=== PATIENT | female | born 1995 | race Caucasian/White ===

== ENCOUNTER 2018-02-19 12:49 | Emergency (ER) | payer OTHER, SELFPAY ==
[2018-02-19 12:50] VITALS: BP 126/77; PULSE 105; RESP 16; TEMP 36.6; O2SAT 98; BMI 18.1
[2018-02-19 14:27] LABS: Bacteria 0 SEEN /hpf (None Seen); Mucous, Urine 0 SEEN /hpf (<or=2+); Red Blood Cells-Urine 0 SEEN /hpf (0-5); White Blood Cells 0 SEEN /hpf (0-5)
[2018-02-19 14:36] LABS: Color, Urine Yellow (Yellow); Glucose, Dipstick Normal (Normal); Ketone-Dipstick Negative (Negative); Leukocyte Esterase-Dipstick Negative /ul (Negative); Nitrite-Dipstick Negative (Negative); Occult Blood-Urine Negative /ul (Negative); Protein-Dipstick Negative (Negative); Urine Bilirubin Dipstick Negative (Negative); Urine Clarity Clear (Clear); Urine Urobilinogen Normal (Normal); Urine pH 6.5 (5.0 - 8.0)
[2018-02-19 14:45] LABS: Squamous Epithelial Cells - UA 0-5 SEEN /hpf (5-10)
[2018-02-19 15:09] LABS: hCG Titer Quant., Serum 332 mIU/mL (<9 non-preg)
--- NOTE | 2018-02-19 15:32 | ED.VISSUMM ---
- ER Visit Summary Date of Service: 02/19/18 Chief Complaint: I think I am History of Present Illness: The patient is a 22 F past medical history of osteogenesis imperfecta and scoliosis. Patient had a prior cholecystectomy. She states that she had some abdominal cramping redness around the umbilicus. Her last menstrual period was more than a month ago in December. She took a test and it was positive. She denies any vaginal bleeding or discharge. She denies any significant pain. She denies any dysuria or fever. She has never been before. Physical Examination: Well-appearing young female. Vital signs are stable and afebrile. HEENT exam unremarkable. Neck nontender. Lungs clear to auscultation bilaterally. Heart regular rhythm no murmur. Abdomen is soft. Nondistended very minimal epigastric tenderness. No rebound. No guarding. No rigidity. Both the right upper and right lower quadrant unremarkable. Her suprapubic area is really nontender. Patient moving all 4 extremities. Neurologic intact. Back exam nontender. Patient moving all 4 extremities. Neurovascular intact. Calves no edema. Test Results: Quantitative hCG was positive at 332. UA was normal. Emergency Department Course and Treatment: When the patient she was but it was extremely early. At this time ultrasound would not be of any significance in her care. On repeat exam at 1530 her abdomen is benign. I did offer her a pelvic exam and the patient wanted to defer that until she saw her her FOUNDRY ENGINEER. Treatment Plan: Follow up with FOUNDRY ENGINEER. Dr. Petrona Francis on-call. Disposition: discharge Impression: Newly diagnosed first trimester This note was generated with [employer] dictation software. It may contain incorrect words, spelling, and punctuation that were not noted in review of the chart prior to signing ED Disposition - Plan for ED Patient: Chief Complaint: Abd Pain Referrals: Care Physician,No Primary [Primary Care Provider] -
--- NOTE | 2018-02-19 15:37 | ED.DCSUM_ITS ---
- ER Visit Summary Date of Service: 02/19/18 Chief Complaint: I think I am History of Present Illness: The patient is a 22 F past medical history of osteogenesis imperfecta and scoliosis. Patient had a prior cholecystectomy. She states that she had some abdominal cramping redness around the umbilicus. Her last menstrual period was more than a month ago in December. She took a test and it was positive. She denies any vaginal bleeding or discharge. She denies any significant pain. She denies any dysuria or fever. She has never been before. Physical Examination: Well-appearing young female. Vital signs are stable and afebrile. HEENT exam unremarkable. Neck nontender. Lungs clear to auscultation bilaterally. Heart regular rhythm no murmur. Abdomen is soft. Nondistended very minimal epigastric tenderness. No rebound. No guarding. No rigidity. Both the right upper and right lower quadrant unremarkable. Her suprapubic area is really nontender. Patient moving all 4 extremities. Neurologic intact. Back exam nontender. Patient moving all 4 extremities. Neurovascular intact. Calves no edema. Test Results: Quantitative hCG was positive at 332. UA was normal. Emergency Department Course and Treatment: When the patient she was but it was extremely early. At this time ultrasound would not be of any significance in her care. On repeat exam at 1530 her abdomen is benign. I did offer her a pelvic exam and the patient wanted to defer that until she saw her her NEURODIAGNOSTIC TECHNOLOGIST. Treatment Plan: Follow up with NEURODIAGNOSTIC TECHNOLOGIST. Dr. Petrona Francis on-call. Disposition: discharge Impression: Newly diagnosed first trimester This note was generated with [employer] dictation software. It may contain incorrect words, spelling, and punctuation that were not noted in review of the chart prior to signing ED Disposition - Plan for ED Patient: Chief Complaint: Abd Pain Referrals: Care Physician,No Primary [Primary Care Provider] -
--- NOTE | 2018-02-19 15:37 | ED.DEP ---
ED Disposition - Plan for ED Patient: Disposition: Home or Assisted Living Chief Complaint: Abd Pain Instructions: ED Preg Established Normal Sxs Prescriptions: Ondansetron [Zofran Odt] 4 mg PO Q4H PRN PRN #10 tab.rapdis PRN Reason: Nausea Referrals: Petrona Francis MD [STAFF PHYSICIAN] - As soon as possible Additional Instructions: Plenty of fluids and rest. She can start vitamins. Call and follow-up with Dr. Petrona Francis of [facility]I[facility] OFFICER. Zofran as needed for nausea.
[2018-02-19 15:45] VITALS: BP 110/68; PULSE 68; RESP 16; O2SAT 100
--- OUTSIDE RECORDS SUMMARY | 2018-04-16 13:52 | XMS RPT_ITS ---
:1995 Author Organization OHIP Support Name Relationship Address Phone BROASTLIV Unavailable [address] + [place] [address] MARANDA, CLAUDIO Unavailable [address] + [place] [address] LESLI GAO Unavailable [address] + [place] [address] BROASTLIV Unavailable [address] + [place] [address] MARANDA, CLAUDIO Unavailable [address] + [place] [address] VIVIAN GAOIA Unavailable [address] + [place] [address] BROASTLIV Unavailable [address] + [place] [address] MARANDA, CLAUDIO Unavailable [address] + [place] [address] MARANDA, CLAUDIO Unavailable [address] + [place] [address] MARANDA, CLAUDIO Unavailable [address] + [place] [address] UN Unavailable Unavailable Unavailable MARANDA, CLAUDIO Unavailable [address] + [place] [address] MARANDA, CLAUDIO Unavailable [address] + [place] [address] UN Unavailable Unavailable Unavailable MARANDA, CLAUDIO Unavailable Unavailable Unavailable MARY HAN Unavailable [address] + [place] [address] NOT GIVEN Unavailable Unavailable Unavailable CLAUDIO LOW Unavailable Unavailable Unavailable EMELY, MARY Unavailable [address] + [place] [address] NOT GIVEN Unavailable Unavailable Unavailable Care Team Providers Name Role Phone GIOVANI JOLLEY Attending Unavailable АННА GOLDSTEIN Primary Care Unavailable LETITIA FORD Attending Unavailable TRISTON, АННА Primary Care Unavailable JAMEY, DR KAYDEN Freitas Admitting Unavailable JAMEY, DR KAYDEN Freitas Attending Unavailable JAMEY, DR KAYDEN Freitas Primary Care Unavailable АННА GOLDSTEIN CORRECTIONAL OFFICER SERGEANT Consulting Unavailable АННА GOLDSTEIN CORRECTIONAL OFFICER SERGEANT Referring Unavailable PROVIDER, UNKNOWN Consulting Unavailable PROVIDER, UNKNOWN Consulting Unavailable ROSSANA SAHNI MD Consulting Unavailable NEMUNAITIS, JEFFREY Admitting Unavailable NEMUNAITIS, JEFFREY Attending Unavailable NEMUNAITIS, JEFFREY Primary Care Unavailable PROVIDER, UNKNOWN Consulting Unavailable PROVIDER, UNKNOWN Consulting Unavailable Kishor, Tonia Attending Unavailable Primay Care Physicia, No Referring Unavailable [place], Tonia Attending Unavailable Primay Care Physicia, No Primary Care Unavailable Jesús Harvey Attending Unavailable Primay Care Physicia, No Primary Care Unavailable PROBLEMS PROBLEMS DATE TYPE CONDITION / CODE ATTENDING STATUS SOURCE 03/02/2018 Unknown Z34.90 - Encounter Kishor, Active [place] for supervision of [facility] normal , Hospital unspecified, Repository unspecified trimester / Z34.90(ICD-10) 03/02/2018 Unknown Z34.00 - Encounter Kishor, Active Beata for supervision of [facility] normal [facility] , Repository unspecified trimester / Z34.00(ICD-10) 03/02/2018 Unknown Z34.01 - Encounter Kishor, Active Beata for supervision of [facility] normal [facility] , first Repository trimester / Z34.01(ICD-10) 03/02/2018 Unknown Z3A.01 - Less than 8 [place], Active [place] weeks gestation of [facility] / Hospital Z3A.01(ICD-10) Repository 03/02/2018 Unknown Q78.0 - Osteogenesis [place], Active [place]ata imperfecta / [facility] Q78.0(ICD-10) Hospital Repository 07/21/2017 Working FEVER, UNSPECIFIED / GIOVANI JOLLEY Active [place] diagnosis R50.9(ICD-10) [facility] Repository 07/21/2017 Working NONINFECTIVE GIOVANI JOLLEY Active [place] diagnosis GASTROENTERITIS AND [facility] COLITIS, UNSPECIFIED Hospital / K52.9(ICD-10) Repository 07/21/2017 Working CHRONIC SINUSITIS, GIOVANI JOLLEY Active [place] diagnosis UNSPECIFIED / [facility] J32.9(ICD-10) Hospital Repository 07/21/2017 Working ACQUIRED ABSENCE OF GIOVANI JOLLEY Active [place] diagnosis OTHER SPECIFIED [facility] DIGESTIVE Hospital TRACT / Repository Z90.49(ICD-10) 07/21/2017 Working COUGH / R05(ICD-10) FORD, Active [place] diagnosis [facility] Hospital Repository 07/21/2017 Working ACUTE SINUSITIS, FORD, Active [place] diagnosis UNSPECIFIED / [facility] J01.90(ICD-10) Hospital Repository 07/21/2017 Working HEADACHE / FORD, Active [place] diagnosis R51(ICD-10) [facility] Repository 05/06/2017 Admitting Fever, unspecified / CONCEPCION, DR NOVOA Active [place] [facility] R509(ICD-10) [facility] Repository 05/06/2017 Principle Influenza due to CONCEPCION, DR NOVOA Active [place] Diagnosis unidentified [facility] influenza virus with Hospital other respiratory Repository manifestations / J111(ICD-10) 05/06/2017 Secondary Osteogenesis CONCEPCION, DR NOVOA Active [place] [facility] imperfecta / [facility] Q780(ICD-10) Hospital Repository 05/06/2017 Secondary Acquired absence of JAMEY, DR NOVOA Active [place] [facility] other specified [facility] tract / Repository Z9049(ICD-10) PROCEDURES PROCEDURES No Procedure Records FoundRESULTS RESULTS CT/NG H BY PCR Collected: 03/02/2018 Status: F Source: [place] 7:50 PM [facility] REPOSITORY TYPE CODE TESTS RESULT OUT OF RANGE REFERENCE UNITS LAB L8200.2100 Negative Normal Chlam Negative Trac PCR LAB L8200.2200 Negative Normal NG by Negative PCR Performed By: #### L8200.1999 #### [facility] [address] [place], [address] Observed: 03/02/2018 Status: F Source: [place] CULTURE, GENITAL 7:50 PM [facility] COMPREHENSIVE REPOSITORY Reason for Exam: vaginitis Gram Stain Score = 3 Interpretation: 0-3 Normal, 4-6 Intermediate, 7-10 Positive BV Gram Stain 1+ Epithelial cells 2+ Red Blood Cells 1+ Gram positive rods No Gram negative diplococci No Yeast Like Organisms Gent Cult Comp Normal vaginal sean isolated. No yeast, Gardnerella, Neisseria or beta-hemolytic Streptococcus isolated. Performed By: #### M100.1600 #### [facility] [address] [place], [address] Observed: 03/02/2018 Status: F Source: [place] CULTURE, URINE 7:50 PM [facility] REPOSITORY Urine Culture Below infection level. ORGANISM 1: Mixed Gram Positive Organisms [place] Count 1000-10,000 Performed By: #### M100.0650 #### [facility] [address] [place], [address] MOLD MAKING SUPERVISOR OFFICE VISIT Observed: 03/02/2018 Status: F Source: [place] REPORT 10:44 AM [facility] REPOSITORY [facility] [address] [place] [address] OFFICE VISIT Date of Service: 03/02/18 MR#: [id number] Acct: [id number] Name: NAPOLEON LOW Rep #: [id number] : 1995 Provider: FATIMAH Iverson Age/Sex: 22/F [place] [facility] Status: Signed Intake Vital Signs03/02/18 Body Mass Index (BMI) 18.1 03/02/18 Height 4 ft 11 in 03/02/18 Weight: 96 lb 4 oz 03/02/18 Body Mass Index (BMI) 19.4 03/02/18 Blood Pressure 96/64 Intake Visit Reasons: NOB LMP 01/04/18 Chief Complaint: NEW OB Operator Bearer Systems Required: No Is patient in pain?: No Allergies No Known Allergies Allergy (Verified 03/02/18 09:54) Medications Ondansetron [Zofran Odt] 4 mg PO Q4H PRN PRN #10 tab.rapdis 02/19/18 [Rx] guaifenesin 100 mg/5 mL oral liquid 200 mg PO Q4H PRN 03/02/18 [History Confirmed 03/02/18] vitamin#30 30 mg iron-10 mg iron-folic acid 1 mg- omg3 capsule cap PO cap 03/02/18 [History Confirmed 03/02/18] Last Menstral Period: 01/09/18 Zika: Zika virus screening: Negative : No PFSH PFSH Medical History Osteogenesis imperfecta (Acute) Surgical History Hx of cholecystectomy (Acute) Social History Smoking Status: Never smoker alcohol intake: never substance use type: does not use caffeine: Yes what type of physical activity do you participate in: walking seatbelt use: always do you feel safe at home: Yes additional social history: Claudio Patient works at [employer] History 1 Elective abortions Hx Para Spontaneous abortions HPI NOB LMP 01/04/18: Details: NAPOLEON LOW is a 22 year old who presents for New OB visit. OB Visit BUCKY Calculator Estimated Delivery Date 10/11/18 Based on LMP (uncertain) 01/04/18 Current WG 8w 1d Number 1 Expected Delivery Route/Plan Specific Issue/Plans flu vaccine: given minichart given: given tdap vaccine: [] rhogam: [] LARC form signed: [] labor support person: Claudio pain management: [] cut cord/dad catch: [] : [] PP control planned: [] special requests: [] Initial Weight: Not Recorded Date Weight BP Urine PrFHR FuHt Pres MoCTX DilationFetal StVisit NoProviderComments E ot v te GA G Effac lucose ed Menstrual History Last Menstral Period: 01/09/18 Reported LMP: approximate (month known) Normal amount/duration: Yes On hormonal BC at conception: No hCG+: 02/19/18 Antepartum Record Genetic Screening: Congenital Heart Defect: Other, Neural Tube Defect: Other, Hemoglobinopathy Or Carrier: Other, Cystic Fibrosis: Other, Chromosome Abnormality: Other, Dilip-Sachs: Other, Hemophilia: Other, Intellectual Disability/Autism: Other, Recurrent Loss/Stillbirth: Other, Other Structural Defect: Other, Other Genetic Disease: Other, Maternal Metabolic Disorder: Other Comments/Counseling: Reviewed and negative Infection History: Live with someone with TB or Exposed to TB: No, Patient or Partner has history of Genital Herpes: No, Rash or Viral illness since last mentrual period: No, Prior GBS-Infected child: No, History of STD: No, HIV Infection: No, History of Hepatitis: No, Recent travel outside of [place]: No, Concern for Hep exposure: No, Varicella immune: No (unsure) Medical History Medical History: Positive: Operations/hospitalizations (cholecystectomy), Negative: Diabetes, Hypertension, Heart disease, Auto-immune disorder, Kidney disease/UTI, Neurologic/epilepsy, Psychiatric, Depression/ depression, Hepatitis/liver disease, Varicosities/phlebitis, Thyroid dysfunction, Trauma/domestic violence, History of blood transfusions, D (Rh) Sensitized, Pulmonary (e.g.,TB,Asthma), Seasonal allergies, Drug/latex allergies/reactions, Breast, Account Support Rep surgery, Anesthetic complications, History of abnormal pap, Uterine anomaly/marion, Infertility, Anti-retroviral treatment, Relevant family history, Other ACOG First Trimester First Trimester: Desire for , Alcohol, Tobacco Cessation, Illicit/Recreational Drug/Substance Use, Intimate Partner Violence, Barriers to care, Unstable Housing, Communication Barriers, Environmental/Work Hazards, Anticipated Course of Care, Nurtrition and weight gain, Toxoplasmosis Precations, Use of Any medications, Sexual activity, Exercise, Dental Care, Sauna/Hot tub use, Seat Belt use, Childbirth classes/Hospital facilities, , Travel, Indications for US and Screening for Aneuploidy ROS Const Reports as per HPI Card Denies chest pain, Denies shortness of breath Resp Denies shortness of breath GI Denies change in stools Denies difficulty urinating, Denies abnormal vaginal bleeding, Denies vaginal odor, Denies vaginal itching, Denies vaginal discharge Exam Const General: cooperative, healthy appearing, well developed Nutritional Appearance: average body habitus, well nourished Orientation: oriented x3 Neck Neck: normal visual inspection Neck mass: No Thyroid: thyroid normal Chest Chest palpation AND inspection: normal inspection of the chest Breast inspection: normal inspection of the breasts, normal inspection of the axillae Resp Effort AND Inspection: normal respiratory effort GI Inspection: normal to inspection Palpation: soft, nontender, no masses External Female Exam: normal external appearance, normal appearance of the urethra Urethra: normal appearance of the urethra Speculum Exam - Vagina: normal appearance of the vagina, normal vaginal discharge Speculum Exam - Cervix: normal appearance of the cervix, closed cervix, other (thin prep pap with reflex HPV, GCC collected) Bimanual Exam- Vagina AND Uterus: normal bimanual exam, uterine shape normal, uterine size normal (10 weeks) Bimanual Exam- Adnexa, other: normal adnexae, no adnexal masses, adnexae non-tender Other: US per Dr. Berumen: 5 week gestational sac. Questionable yolk sac. No pole at this time. Patient had light spotting 02/18, none since. Seen in ED at that time Skin General: no rashes or lesions noted, turgor normal Assessment AND Plan Problems 1. Encounter for supervision of normal first in first trimester Z34.01 Grav 1 BUCKY 10/11/18 Spouse Claudio 2. Less than 8 weeks gestation of Z3A.01 3. Osteogenesis imperfecta Q78.0 Plan Patient oriented to practice and discussed care expectations and screenings. ACOG book offered to patient. labs plus varicella immunity ordered but hold until next visit Formal US 10-14 days. Genetic screening offered to patient and patient chose: considering genetic carrier and screening RTO 4 weeks Orders Orders: Coding Level of Care Code Off vis,new,level 4 Diagnoses Encounter for supervision of normal first in first trimester Z34.01 Trimester: first trimester Less than 8 weeks gestation of Z3A.01 Weeks of gestation: less than 8 weeks Osteogenesis imperfecta Q78.0 03/02/18 1044 <Electronically signed by Tonia NORIEGA> Date Tonia NORIEGA Cosigner Signature: Date (if applicable) CC: PAP I-G W/RFX Collected: 03/02/2018 Status: F Source: BEATA HRHPV-APTIMA 10:00 AM [facility] REPOSITORY Order Comment: CYTOLOGY INFORMATION: - CLINICAL INFORMATION: - DATE LMP/MENOPAUSE: N/A - COLLECTION VIAL: Thin Prep Vial - DIESEL POWER SHOVEL OPERATOR SOURCE: CERVICAL - COLLECTION TECHNIQUE: BRUSH/SPATULA Specimen Comment: [id number] Specimen Comment: Source.............Cervix Specimen Comment: No. of containers..01 ThinPrep Vial TYPE CODE TESTS RESULT OUT OF RANGE REFERENCE UNITS LAB L7400.0800 . Normal DIAGN Comment Result Comment: NEGATIVE FOR INTRAEPITHELIAL LESION AND MALIGNANCY. LAB L7400.0900 . Normal ADEQ Comment Result Comment: Satisfactory for evaluation. Endocervical and/or squamous metaplastic cells (endocervical component) are present. LAB L7400.1400 . Normal PERFORM Comment Result Comment: Pedro Lopez, Sales And Marketing Specialist (ASCP) LAB L7400.2575 . Normal TEST METHOD Comment Result Comment: This liquid based ThinPrep(R) pap test was screened with the use of an image guided system. LAB L7400.2600 . Normal . COMM LAB L7400.2700 . Normal PAPSMR Comment Result Comment: The Pap smear is a screening test designed to aid in the detection of premalignant and malignant conditions of the uterine cervix. It is not a diagnostic procedure and should not be used as the sole means of detecting cervical cancer. Both false-positive and false-negative reports do occur. LAB L7400.2800 . Normal HPV RFLX Comment Result Comment: The HPV DNA reflex criteria were not met with this specimen result therefore, no HPV testing was performed. Performed at: [address] [id number] Customs Appraiser: Susie Leigh MD, Phone: [phone] Performed By: #### L7400.0353 #### [facility]refer to report for specific site) refer to report for address and phone number GROUP A STREP BY Collected: 02/21/2018 Status: F Source: ACE PCR 10:53 AM [facility] REPOSITORY TYPE CODE TESTS RESULT OUT OF REFERENCE UNITS RANGE LAB GASSRC Throat Swab GAS Specimen Source LAB PCRGAS Negative for Group A Strep Group A PCR Streptococcus by PCR. Result Comment: This test was developed and its performance characteristics determined by [facility] [place] ([facility]). It has not been cleared or approved by the FDA. [facility] is regulated under CLIA as qualified to perform high-complexity testing. This test is used for clinical purposes. It should not be regarded as inv estigational or for research. Performed By: #### GASPCR #### [facility] [address] [place], [place] [address] PROGRESS Observed: 02/21/2018 Status: COMPLETED Source: ACE 10:41 AM [facility] REPOSITORY HNO ID: [id number] Author: Cortney (Netezza Developer) Garrett Service: (none) Author Type: Nurse Practitioner Type: Progress Notes Filed: 02/21/2018 11:22 AM Note Text: Subjective HPI Napoleon Low is a 22 year old female who presents with sore throat for 2 days, headache for 5 days, cough since last night. She has taken mucinex at home, none since finding out she was . She is currently 2 weeks . She has taken tylenol for pain. She rates her sore throat pain a 5/10, worse with swallowing. 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 Review of Systems Constitutional: Negative. Negative for fever. HENT: Positive for congestion (at night only) and sore throat. Respiratory: Positive for cough. Gastrointestinal: Positive for nausea (due to ). Negative for vomiting. Skin: Negative. Negative for rash. Neurological: Positive for headaches. BP 108/76 Pulse 95 Temp 37.2 ?C (99 ?F) (Toe) Resp 14 Wt 42.8 kg (94 lb 6.4 oz) LMP 01/17/2018 (Approximate) SpO2 98% No past medical history on file. No past surgical history on file. ALLERGIES Patient has no known allergies. MEDICATIONS ondansetron HCl (ZOFRAN ORAL) Take by mouth. For nausea - dispensed by [facility] 02/19/18 No family history on file. Social History Substance Use Topics - Smoking status: Never Smoker - Smokeless tobacco: Never Used - Alcohol use Not on file Objective Physical Exam Constitutional: She is well-developed, well-nourished, and in no distress. HENT: Right Ear: Tympanic membrane, external ear and ear canal normal. Left Ear: Tympanic membrane, external ear and ear canal normal. Nose: Nose normal. No rhinorrhea. Mouth/Throat: Uvula is midline and mucous membranes are normal. Mucous membranes are not pale and not dry. Posterior oropharyngeal erythema present. No oropharyngeal exudate or posterior oropharyngeal edema. Eyes: Conjunctivae are normal. Neck: Neck supple. Cardiovascular: Normal rate and regular rhythm. Pulmonary/Chest: Effort normal and breath sounds normal. No respiratory distress. She has no wheezes. She has no rales. Lymphadenopathy: She has no cervical adenopathy. Neurological: She is alert. Skin: Skin is warm and dry. No rash noted. Nursing note and vitals reviewed. ASSESSMENT/PLAN: 1. Viral URI with cough - ICD9: 465.9, ICD10: J06.9, B97.89 (primary diagnosis) - Discussed viral etiology and rationale for treatment. - Rapid strep negative in office today - Symptomatic treatment with prn analgesia - Supportive care with fluids and rest - safe list of medications for use in given to patient. 2. Sore throat - ICD9: 462, ICD10: J02.9 - suspect viral - Rapid Strep negative in the office today and Throat culture pending - Discussed supportive care treatment with fluids, rest and analgesia. - The patient may also use warm salt water gargles, throat lozenges and/or OTC throat spray as needed. - Call back if drooling, increased temperature, symptoms of dehydration and/or still sick in one week - RAPID STREP TEST B/O - GROUP A STREPTOCOCCUS BY PCR - Follow-up with your PCP in 3-5 days if symptoms have not improved or sooner if symptoms worsen - Discussed red flags and need for immediate medical evaluation if any occur. - Discussed supportive care treatment with fluids, rest and analgesia. - Discussed expected course of illness Cortney Tucker APRN.CORRECTIONAL OFFICER SERGEANT CNOV Observed: 02/21/2018 Status: COMPLETED Source: ACE 10:30 AM [facility] REPOSITORY Office Visit (WSTR) MARANDA,NAPOLEON J ([id number]) 1995 F Date Time Provider Department 02/21/18 10:30 AM CORTNEY TUCKER ([facility]) [facility] During your visit today, we recorded the following information about you: Temperature Pulse Respiration Blood pressure 99 degrees 95/minute 14/minute 108/76 Weight Last Period 42.8 kg 01/17/18 Cortney Tucker APRN.CNP 02/21/2018 11:22 AM Signed Subjective HPI Napoleon Low is a 22 year old female who presents with sore throat for 2 days, headache for 5 days, cough since last night. She has taken mucinex at home, none since finding out she was . She is currently 2 weeks . She has taken tylenol for pain. She rates her sore throat pain a 5/10, worse with swallowing. 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 Review of Systems Constitutional: Negative. Negative for fever. HENT: Positive for congestion (at night only) and sore throat. Respiratory: Positive for cough. Gastrointestinal: Positive for nausea (due to ). Negative for vomiting. Skin: Negative. Negative for rash. Neurological: Positive for headaches. BP 108/76 Pulse 95 Temp 37.2 ?C (99 ?F) (Toe) Resp 14 Wt 42.8 kg (94 lb 6.4 oz) LMP 01/17/2018 (Approximate) SpO2 98% No past medical history on file. No past surgical history on file. ALLERGIES Patient has no known allergies. MEDICATIONS ondansetron HCl (ZOFRAN ORAL) Take by mouth. For nausea - dispensed by [facility] 02/19/18 No family history on file. Social History Substance Use Topics - Smoking status: Never Smoker - Smokeless tobacco: Never Used - Alcohol use Not on file Objective Physical Exam Constitutional: She is well-developed, well-nourished, and in no distress. HENT: Right Ear: Tympanic membrane, external ear and ear canal normal. Left Ear: Tympanic membrane, external ear and ear canal normal. Nose: Nose normal. No rhinorrhea. Mouth/Throat: Uvula is midline and mucous membranes are normal. Mucous membranes are not pale and not dry. Posterior oropharyngeal erythema present. No oropharyngeal exudate or posterior oropharyngeal edema. Eyes: Conjunctivae are normal. Neck: Neck supple. Cardiovascular: Normal rate and regular rhythm. Pulmonary/Chest: Effort normal and breath sounds normal. No respiratory distress. She has no wheezes. She has no rales. Lymphadenopathy: She has no cervical adenopathy. Neurological: She is alert. Skin: Skin is warm and dry. No rash noted. Nursing note and vitals reviewed. ASSESSMENT/PLAN: 1. Viral URI with cough - ICD9: 465.9, ICD10: J06.9, B97.89 (primary diagnosis) - Discussed viral etiology and rationale for treatment. - Rapid strep negative in office today - Symptomatic treatment with prn analgesia - Supportive care with fluids and rest - safe list of medications for use in given to patient. 2. Sore throat - ICD9: 462, ICD10: J02.9 - suspect viral - Rapid Strep negative in the office today and Throat culture pending - Discussed supportive care treatment with fluids, rest and analgesia. - The patient may also use warm salt water gargles, throat lozenges and/or OTC throat spray as needed. - Call back if drooling, increased temperature, symptoms of dehydration and/or still sick in one week - RAPID STREP TEST B/O - GROUP A STREPTOCOCCUS BY PCR - Follow-up with your PCP in 3-5 days if symptoms have not improved or sooner if symptoms worsen - Discussed red flags and need for immediate medical evaluation if any occur. - Discussed supportive care treatment with fluids, rest and analgesia. - Discussed expected course of illness HUGO Ventura APRN.CNP 02/21/2018 11:00 AM Signed ASSESSMENT/PLAN: 1. Viral URI with cough - ICD9: 465.9, ICD10: J06.9, B97.89 (primary diagnosis) - Discussed viral etiology and rationale for treatment. - Rapid strep negative in office today - Symptomatic treatment with prn analgesia - Supportive care with fluids and rest 2. Sore throat - ICD9: 462, ICD10: J02.9 - suspect viral - Rapid Strep negative in the office today and Throat culture pending - Discussed supportive care treatment with fluids, rest and analgesia. - The patient may also use warm salt water gargles, throat lozenges and/or OTC throat spray as needed. - Call back if drooling, increased temperature, symptoms of dehydration and/or still sick in one week - RAPID STREP TEST B/O - GROUP A STREPTOCOCCUS BY PCR - Follow-up with your PCP in 3-5 days if symptoms have not improved or sooner if symptoms worsen - Discussed red flags and need for immediate medical evaluation if any occur. - Discussed supportive care treatment with fluids, rest and analgesia. - Discussed expected course of illness Cortney Tucker APRN.HARRY Treatment for Viral Upper Respiratory Tract Infections Your body will kill off the virus by itself. Additionally, you can prime your body's immune system. This may help you get better more quickly. 1. Drink lots of fluids - at least one gallon of non-caffeinated liquids per day 2. Make sure you are eating well 3. Get plenty of rest - at least 8 hours of sleep per night for adults and more for children We do not have any medications that kill off these viruses. Antibiotics are used to treat bacterial infections; however, they are not active against viral infections. There are some things that might help you feel better, though. 1. Vaporizers, humidifiers, hot showers, and hot fluids help open respiratory and sinus passages 2. [place] [employer] may offer relief of nasal and head congestion 3. Chandrakant's Vapor Rub placed on a hot towel and draped over the head may relieve congestion 4. Tylenol and Advil help control fevers and headaches 5. Salt water gargles help relieve sore throats 6. Chloraceptic spray or throat lozenges may also help relieve sore throat symptoms 7. Robitussin DM will help loosen up secretions and also provide relief from a cough Occasionally, viral infections turn into something more serious. You should see your doctor or return to the Urgent Care if: 1. You have fevers for longer than five days 2. You have fevers above 102 degrees 3. You are still sick after 10 days 4. You have shortness of breath or wheezing 5. After several days you are getting worse rather than better Referring Provider: SELF [200] Allergies As of Date: 02/21/2018 (No Known Allergies) Date Reviewed: 02/21/2018 Reviewed by: Cortney ([facility]) Garrett - Fully Assessed Reason for Visit: Sore Throat [200] Headache [52] Cmt: x5 days Cough [28] Primary Visit Diagnosis:Viral URI with cough [J06.9, B97.89] Other Visit Diagnosis:Sore throat [J02.9] Order(s): vit-iron fumarate-fa ( MULTIVITAMINS) 28 mg iron- 800 mcg tabTake 1 tablet by mouth once daily.Disp: 30 tabletRfl: 0 RAPID STREP TEST B/O [0390837] Order #: [id number] GROUP A STREPTOCOCCUS BY PCR [SQGASPCR] Order #: [id number] Prescriptions as of 02/21/2018 Sig: ZOFRAN ORAL Take by mouth. For nausea - d* VIT NO.95-FERROUS FU* Take 1 tablet by mouth once d* Problem List As Of Date 02/21/2018 Noted Resolved Osteogenesis imperfecta [Q78.0] INVALID FOR* Thoracogenic scoliosis of thoracolumbar region *INVALID FOR* Other instructions from your clinician: ASSESSMENT/PLAN: 1. Viral URI with cough - ICD9: 465.9, ICD10: J06.9, B97.89 (primary diagnosis) - Discussed viral etiology and rationale for treatment. - Rapid strep negative in office today - Symptomatic treatment with prn analgesia - Supportive care with fluids and rest 2. Sore throat - ICD9: 462, ICD10: J02.9 - suspect viral - Rapid Strep negative in the office today and Throat culture pending - Discussed supportive care treatment with fluids, rest and analgesia. - The patient may also use warm salt water gargles, throat lozenges and/or OTC throat spray as needed. - Call back if drooling, increased temperature, symptoms of dehydration and/or still sick in one week - RAPID STREP TEST B/O - GROUP A STREPTOCOCCUS BY PCR - Follow-up with your PCP in 3-5 days if symptoms have not improved or sooner if symptoms worsen - Discussed red flags and need for immediate medical evaluation if any occur. - Discussed supportive care treatment with fluids, rest and analgesia. - Discussed expected course of illness Cortney Tucker APRN.[employer]RECTIONAL OFFICER SERGEANT Treatment for Viral Upper Respiratory Tract Infections Your body will kill off the virus by itself. Additionally, you can prime your body's immune system. This may help you get better more quickly. 1. Drink lots of fluids - at least one gallon of non-caffeinated liquids per day 2. Make sure you are eating well 3. Get plenty of rest - at least 8 hours of sleep per night for adults and more for children We do not have any medications that kill off these viruses. Antibiotics are used to treat bacterial infections; however, they are not active against viral infections. There are some things that might help you feel better, though. 1. Vaporizers, humidifiers, hot showers, and hot fluids help open respiratory and sinus passages 2. [place] [employer] may offer relief of nasal and head congestion 3. Chandrakant's Vapor Rub placed on a hot towel and draped over the head may relieve congestion 4. Tylenol and Advil help control fevers and headaches 5. Salt water gargles help relieve sore throats 6. Chloraceptic spray or throat lozenges may also help relieve sore throat symptoms 7. Robitussin DM will help loosen up secretions and also provide relief from a cough Occasionally, viral infections turn into something more serious. You should see your doctor or return to the Urgent Care if: 1. You have fevers for longer than five days 2. You have fevers above 102 degrees 3. You are still sick after 10 days 4. You have shortness of breath or wheezing 5. After several days you are getting worse rather than better Prescriptions ordered this encounter Disp Refills Start End VIT NO.95-FERROUS FUMARATE * 30 t* 0 02/21/2018 Class: Med Update Route: ORAL Sig: Take 1 tablet by mouth once daily. Letter Text Cortney Tucker APRN.CNP Urgent Care [address] [facility] [address] Dept: [phone] 02/21/2018 Napoleon J Maranda [address] [facility] [address] To Whom it May Concern: This is to certify that Napoleonsaadia Low was seen at our office for medical care. Napoleon may return to work on 02/22/2018. If you have any questions please feel free to call. Sincerely: Cortney Tucker APRN.[facility] Encounter Status:Closed by CORTNEY TUCKER on 02/21/18 EMERGENCY DEPARTMENT Observed: 02/19/2018 Status: F Source: [place] SUMMARY 4:17 PM [facility] REPOSITORY [facility] Medical Records Department [address] [facility] [place] [address] Emergency Department Summary 11/30/18 1532 MR#: [id number] Acct: [id number] Name: NAPOLEON LOW Rep #: [id number] : 1995 22 From: Jesús Harvey MD PCP: Rylee Physician, No Primary Status: DEP ER - ER Visit Summary Date of Service: 02/19/18 Chief Complaint: I think I am History of Present Illness: The patient is a 22 F past medical history of osteogenesis imperfecta and scoliosis. Patient had a prior cholecystectomy. She states that she had some abdominal cramping redness around the umbilicus. Her last menstrual period was more than a month ago in December. She took a test and it was positive. She denies any vaginal bleeding or discharge. She denies any significant pain. She denies any dysuria or fever. She has never been before. Physical Examination: Well-appearing young female. Vital signs are stable and afebrile. HEENT exam unremarkable. Neck nontender. Lungs clear to auscultation bilaterally. Heart regular rhythm no murmur. Abdomen is soft. Nondistended very minimal epigastric tenderness. No rebound. No guarding. No rigidity. Both the right upper and right lower quadrant unremarkable. Her suprapubic area is really nontender. Patient moving all 4 extremities. Neurologic intact. Back exam nontender. Patient moving all 4 extremities. Neurovascular intact. Calves no edema. Test Results: Quantitative hCG was positive at 332. UA was normal. Emergency Department Course and Treatment: When the patient she was but it was extremely early. At this time ultrasound would not be of any significance in her care. On repeat exam at 1530 her abdomen is benign. I did offer her a pelvic exam and the patient wanted to defer that until she saw her her [employer]OLD MAKING SUPERVISOR. Treatment Plan: Follow up with MOLD MAKING SUPERVISOR. Dr. Petrona Francis on-call. Disposition: discharge Impression: Newly diagnosed first trimester This note was generated with [employer] dictation software. It may contain incorrect words, spelling, and punctuation that were not noted in review of the chart prior to signing ED Disposition - Plan for ED Patient: Chief Complaint: Abd Pain Referrals: Care Physician,No Primary [Primary Care Provider] - What to do if you have Problems For any increased pain, shortness of breath, bleeding, nausea or vomiting, chest pain, or any unexpected problems, contact your Primary Care Provider. Call [facility] ([phone]) or report to the closest Emergency Room. Call 911 if necessary. 02/19/181616 <Electronically signed by Jesús Harvey MD> Date Jesús Harvey MD Cosigner Signature (If Indicated): Date CC: No Primary Care Physician DISCHARGE INSTRUCTION Observed: 02/19/2018 Status: F Source: [place] 4:17 PM [facility] REPOSITORY [facility] Medical Records Department [address] [place] [address] Discharge Instruction 02/19/18 1537 MR#: [id number] Acct: [id number] Name: NAPOLEON LOW Rep #: [id number] : 1995 22 From: Jesús Harvey MD PCP: Care Physician, No Primary Status: DEP ER ED Disposition - Plan for ED Patient: Disposition: Home or Assisted Living Chief Complaint: Abd Pain Instructions: ED Preg Established Normal Sxs Prescriptions: Ondansetron [Zofran Odt] 4 mg PO Q4H PRN PRN #10 tab.rapdis PRN Reason: Nausea Referrals: Petrona Francis MD [STAFF PHYSICIAN] - As soon as possible Additional Instructions: Plenty of fluids and rest. She can start vitamins. Call and follow-up with Dr. Petrona Francis of [place] [employer]PER[employer]. Zofran as needed for nausea. What to do if you have Problems For any increased pain, shortness of breath, bleeding, nausea or vomiting, chest pain, or any unexpected problems, contact your Primary Care Provider. Call [facility] ([phone]) or report to the closest Emergency Room. Call 911 if necessary. 02/19/181616 <Electronically signed by Jesús Harvey MD> Date Jesús Benítez Signature (If Indicated): Date CC: No Primary Care Physician HCG TITER QUANT., Collected: 02/19/2018 Status: F Source: [place] SERUM 2:35 PM [facility] REPOSITORY TYPE CODE TESTS RESULT OUT OF RANGE REFERENCE UNITS LAB L700.8000 <9 non-preg mIU/mL High HCG 332 QUANT. Performed By: #### L700.8000 #### [facility] [address] [place], [address] URINALYSIS, COMPLETE Collected: 02/19/2018 Status: F Source: [place] 1:05 PM [facility] REPOSITORY Order Comment: How was Urine Obtained? DIRECTOR OF IN SERVICE EDUCATION TO SPECIFY TYPE CODE TESTS RESULT OUT OF RANGE REFERENCE UNITS LAB L400.3000 Yellow COLOR Normal Yellow LAB L400.3050 Clear Normal CLARITY Clear LAB L400.3200 Normal mg/dl Normal GLUCOSE, UR Normal LAB L400.3300 Negative mg/dL Normal BILIRUBIN URINE Negative LAB L400.3400 Negative mg/dl Normal KETONE UR Negative LAB L400.3465 1.002-1.030 Normal SP.GR. DIPSTX 1.010 LAB L400.3550 5.0 - 8.0 pH UR Normal 6.5 LAB L400.3600 Negative mg/dl PROT Normal DIPSTX Negative LAB L400.3700 Normal mg/dl Normal UROBILI Normal LAB L400.3750 Negative Normal NITRITE UR Negative LAB L400.3780 Negative /ul Normal OCCULT BLOOD-UR Negative LAB L400.3800 Negative /ul LEUK Normal ESTERASE Negative LAB L400.4050 0-5 /hpf WBC 0 Normal SEEN LAB L400.4100 0-5 /hpf 0 Normal RBC-UA SEEN LAB L400.4150 5-10 /hpf SQUAM Normal EPI 0-5 SEEN LAB L400.4300 None Seen /hpf 0 Normal BACTERIA SEEN LAB L400.4350 <or=2+ /hpf 0 Normal MUCUS, URINE SEEN Performed By: #### L400.0001 #### [facility] [address] [place], [address] PROGRESS Observed: 01/03/2018 Status: COMPLETED Source: [place] 11:30 AM [facility] REPOSITORY HNO ID: [id number] Author: Alissa Traore (Fatimah) Baldev Service: (none) Author Type: Nurse Practitioner Type: Progress Notes Filed: 01/03/2018 12:59 PM Note Text: Subjective HPI Patient presents with: Sinus pain, drainage, chest congestion x 3 weeks. OTC cold/sinus medication, Tessalon Perles with minimal relief. Review of Systems Constitutional: Negative for chills, fever and malaise/fatigue. HENT: Positive for congestion, sinus pain and sore throat. Negative for ear pain. Eyes: Negative for discharge and redness. Respiratory: Positive for cough. Negative for hemoptysis, sputum production, shortness of breath and wheezing. Gastrointestinal: Negative for abdominal pain, diarrhea, nausea and vomiting. Skin: Negative for rash. Neurological: Positive for headaches. No past medical history on file. No past surgical history on file. ALLERGIES Patient has no known allergies. MEDICATIONS benzonatate (TESSALON PERLE) 100 mg capsule Take 2 capsules by mouth three times daily as needed. No family history on file. Social History Substance Use Topics - Smoking status: Never Smoker - Smokeless tobacco: Never Used - Alcohol use Not on file Objective Physical Exam Constitutional: She is well-developed, well-nourished, and in no distress. HENT: Head: Normocephalic. Right Ear: Tympanic membrane, external ear and ear canal normal. Left Ear: Tympanic membrane, external ear and ear canal normal. Nose: Mucosal edema present. Right sinus exhibits maxillary sinus tenderness and frontal sinus tenderness. Left sinus exhibits maxillary sinus tenderness and frontal sinus tenderness. Mouth/Throat: Posterior oropharyngeal erythema (PND) present. Eyes: Conjunctivae are normal. Neck: Normal range of motion. Neck supple. Cardiovascular: Normal rate, regular rhythm and normal heart sounds. Pulmonary/Chest: Effort normal. No respiratory distress. She has no wheezes. She has rhonchi (faint scattered rhonchi in b/l upper lobes, clearing with cough). She has no rales. Abdominal: Soft. She exhibits no distension. There is no tenderness. Lymphadenopathy: She has no cervical adenopathy. Skin: Skin is warm and dry. No rash noted. Nursing note and vitals reviewed. ASSESSMENT/PLAN: 1. Sinobronchitis - ICD9: 473.9, 490, ICD10: J32.9, J40 - Will begin treatment with Amoxicillin for 10 days - The patient should also be given OTC decongestants prn, OTC cough and cold meds as needed, warm salt water gargles, throat lozenges and/or OTC throat spray as needed and nasal saline gtts and suction prn for the first 5-7 days of treatment. - Supportive care with plenty of fluids, rest, and analgesia prn. - Follow up in 3-5 days if symptoms persist or worsen. Prescription instructions reviewed with patient as applicable. Patient advised if symptoms do not improve or if symptoms worsen sooner, to contact their primary care physician. Potential red flag symptoms discussed with the patient. Reviewed appropriate action plan to take if red flag symptoms occur. Patient agreeable to treatment plan. Alissa Polk APRN.HARRY CNOV Observed: 01/03/2018 Status: COMPLETED Source: [place] 11:15 AM [facility] REPOSITORY Office Visit ([facility]) NAPOLEON LOW ([id number]) 1995 F Date Time Provider Department 01/03/18 11:15 AM ALISSA POLK (BENDER MACHINE) [facility] During your visit today, we recorded the following information about you: Temperature Pulse Respiration Blood pressure 98.2 degrees 70/minute 16/minute 94/74 Weight 41.1 kg Alissa Polk APRN.HARRY 01/03/2018 12:59 PM Signed Subjective HPI Patient presents with: Sinus pain, drainage, chest congestion x 3 weeks. OTC cold/sinus medication, Tessalon Perles with minimal relief. Review of Systems Constitutional: Negative for chills, fever and malaise/fatigue. HENT: Positive for congestion, sinus pain and sore throat. Negative for ear pain. Eyes: Negative for discharge and redness. Respiratory: Positive for cough. Negative for hemoptysis, sputum production, shortness of breath and wheezing. Gastrointestinal: Negative for abdominal pain, diarrhea, nausea and vomiting. Skin: Negative for rash. Neurological: Positive for headaches. No past medical history on file. No past surgical history on file. ALLERGIES Patient has no known allergies. MEDICATIONS benzonatate (TESSALON PERLE) 100 mg capsule Take 2 capsules by mouth three times daily as needed. No family history on file. Social History Substance Use Topics - Smoking status: Never Smoker - Smokeless tobacco: Never Used - Alcohol use Not on file Objective Physical Exam Constitutional: She is well-developed, well-nourished, and in no distress. HENT: Head: Normocephalic. Right Ear: Tympanic membrane, external ear and ear canal normal. Left Ear: Tympanic membrane, external ear and ear canal normal. Nose: Mucosal edema present. Right sinus exhibits maxillary sinus tenderness and frontal sinus tenderness. Left sinus exhibits maxillary sinus tenderness and frontal sinus tenderness. Mouth/Throat: Posterior oropharyngeal erythema (PND) present. Eyes: Conjunctivae are normal. Neck: Normal range of motion. Neck supple. Cardiovascular: Normal rate, regular rhythm and normal heart sounds. Pulmonary/Chest: Effort normal. No respiratory distress. She has no wheezes. She has rhonchi (faint scattered rhonchi in b/l upper lobes, clearing with cough). She has no rales. Abdominal: Soft. She exhibits no distension. There is no tenderness. Lymphadenopathy: She has no cervical adenopathy. Skin: Skin is warm and dry. No rash noted. Nursing note and vitals reviewed. ASSESSMENT/PLAN: 1. Sinobronchitis - ICD9: 473.9, 490, ICD10: J32.9, J40 - Will begin treatment with Amoxicillin for 10 days - The patient should also be given OTC decongestants prn, OTC cough and cold meds as needed, warm salt water gargles, throat lozenges and/or OTC throat spray as needed and nasal saline gtts and suction prn for the first 5-7 days of treatment. - Supportive care with plenty of fluids, rest, and analgesia prn. - Follow up in 3-5 days if symptoms persist or worsen. Prescription instructions reviewed with patient as applicable. Patient advised if symptoms do not improve or if symptoms worsen sooner, to contact their primary care physician. Potential red flag symptoms discussed with the patient. Reviewed appropriate action plan to take if red flag symptoms occur. Patient agreeable to treatment plan. Alissa Polk APRN.[employer]RECTION[employer] OFFICER SERGEANT Referring Provider: SELF [200] Allergies As of Date: 01/03/2018 (No Known Allergies) Date Reviewed: 01/03/2018 Reviewed by: Katherine Moreno Ma - Fully Assessed Reason for Visit: Sinus Infection,frequent/recurring [1167] Primary Visit Diagnosis:Sinobronchitis [J32.9, J40] Order(s):amoxicillin (AMOXIL) 875 mg tabletTake 1 tablet by mouth twice daily for 10 days.Disp: 20 tabletRfl: 0 Glqiwqofdhjcsav-Ujvjibder-DZ (BROMFED DM) 2-30-10 mg/5 mL syrupTake 10 mL by mouth four times daily as needed for up to 7 days.Disp: 240 mLRfl: 0 Prescriptions as of 01/03/2018 Sig: AMOXICILLIN 875 MG TABLET Take 1 tablet by mouth twice * BROMPHENIRAMINE-PSEUDOEPHEDRI* Take 10 mL by mouth four time* Problem List As Of Date: 01/03/2018 (None) Prescriptions ordered this encounter Disp Refills Start End AMOXICILLIN 875 MG TABLET 20 t* 0 01/03/2018 01/13/2018 Route: ORAL Sig: Take 1 tablet by mouth twice daily for 10 days. KOFCUXMKRSTPZJM-DJQBROZIDVDXJUC-PL 2* 240 * 0 01/03/2018 01/10/2018 Route: ORAL Sig: Take 10 mL by mouth four times daily as needed for up to 7 days. Medications Discontinued During This Encounter benzonatate (TESSALON PERLE) 100 mg * 30 c* 0 12/19/2017 01/03/2018 Route: ORAL Sig: Take 2 capsules by mouth three times daily as needed. Disc: Reason for discontinue is not on file. Disposition: Return if symptoms worsen or fail to improve. Follow-up and Disposition History Recorded Encounter Status:Closed by ALISSA POLK on 01/03/18 PROGRESS Observed: 12/19/2017 Status: COMPLETED Source: [place] 10:21 AM [facility] REPOSITORY HNO ID: [id number] Author: Isidra Cutler) Claudette Service: (none) Author Type: Physician Scallop Shucker Type: Progress Notes Filed: 12/19/2017 11:50 AM Note Text: Subjective HPI Pt presents with cough, congestion, for 4 days. No fever or chills. No nvd or abdominal pain. She tried some tylenol cold and sinus which helped minimally. She is not a smoker, no hx of asthma. Review of Systems Constitutional: Negative. Negative for fever. HENT: Positive for congestion. Negative for ear pain and sore throat. Eyes: Negative. Respiratory: Positive for cough. Negative for shortness of breath and wheezing. Cardiovascular: Negative. Negative for chest pain. Gastrointestinal: Negative. Genitourinary: Negative. Skin: Negative. All other systems reviewed and are negative. No past medical history on file. Current Outpatient Prescriptions: benzonatate (TESSALON PERLE) 100 mg capsule Take 2 capsules by mouth three times daily as needed. Disp: 30 capsule Rfl: 0 No current facility-administered medications for this visit. No past surgical history on file. No family history on file. Social History Substance Use Topics - Smoking status: Never Smoker - Smokeless tobacco: Never Used - Alcohol use Not on file BP 92/80 Pulse 82 Temp 36.7 ?C (98.1 ?F) (Left Tympanic) Resp 16 Wt 40.6 kg (89 lb 9.6 oz) LMP 12/07/2017 (Approximate) SpO2 98% Objective Physical Exam Constitutional: She is oriented to person, place, and time and well-developed, well-nourished, and in no distress. HENT: Head: Normocephalic and atraumatic. Right Ear: Tympanic membrane, external ear and ear canal normal. Left Ear: Tympanic membrane, external ear and ear canal normal. Nose: Mucosal edema and rhinorrhea present. Mouth/Throat: Uvula is midline, oropharynx is clear and moist and mucous membranes are normal. Eyes: Pupils are equal, round, and reactive to light. Conjunctivae are normal. Neck: Normal range of motion. Neck supple. Cardiovascular: Normal rate, regular rhythm and normal heart sounds. Pulmonary/Chest: Effort normal and breath sounds normal. Lymphadenopathy: She has no cervical adenopathy. Neurological: She is alert and oriented to person, place, and time. Skin: Skin is warm and dry. Psychiatric: Affect and judgment normal. Nursing note and vitals reviewed. ASSESSMENT/PLAN: 1. Viral URI with cough - ICD9: 465.9, ICD10: J06.9, B97.89 - Discussed viral etiology and rationale for treatment. - Symptomatic treatment with prn analgesia - Supportive care with fluids and rest - tessalon for cough - Discussed with patient concerning symptoms to go to the emergency department or follow up here. Pt agreeable with this plan. Isidra Wilkins PA-C CNOV Observed: 12/19/2017 Status: COMPLETED Source: [place] 10:15 AM [facility] REPOSITORY Office Visit ([facility]) NAPOLEON LOW ([id number]) 1995 F Date Time Provider Department 12/19/17 10:15 AM ISIDRA WILKINS (JULIA) [facility] During your visit today, we recorded the following information about you: Temperature Pulse Respiration Blood pressure 98.1 degrees 82/minute 16/minute 92/80 Weight Last Period 40.6 kg 12/07/17 Isidra Wilkins PA-C 12/19/2017 11:50 AM Signed Subjective HPI Pt presents with cough, congestion, for 4 days. No fever or chills. No nvd or abdominal pain. She tried some tylenol cold and sinus which helped minimally. She is not a smoker, no hx of asthma. Review of Systems Constitutional: Negative. Negative for fever. HENT: Positive for congestion. Negative for ear pain and sore throat. Eyes: Negative. Respiratory: Positive for cough. Negative for shortness of breath and wheezing. Cardiovascular: Negative. Negative for chest pain. Gastrointestinal: Negative. Genitourinary: Negative. Skin: Negative. All other systems reviewed and are negative. No past medical history on file. Current Outpatient Prescriptions: benzonatate (TESSALON PERLE) 100 mg capsule Take 2 capsules by mouth three times daily as needed. Disp: 30 capsule Rfl: 0 No current facility-administered medications for this visit. No past surgical history on file. No family history on file. Social History Substance Use Topics - Smoking status: Never Smoker - Smokeless tobacco: Never Used - Alcohol use Not on file BP 92/80 Pulse 82 Temp 36.7 ?C (98.1 ?F) (Left Tympanic) Resp 16 Wt 40.6 kg (89 lb 9.6 oz) LMP 12/07/2017 (Approximate) SpO2 98% Objective Physical Exam Constitutional: She is oriented to person, place, and time and well-developed, well-nourished, and in no distress. HENT: Head: Normocephalic and atraumatic. Right Ear: Tympanic membrane, external ear and ear canal normal. Left Ear: Tympanic membrane, external ear and ear canal normal. Nose: Mucosal edema and rhinorrhea present. Mouth/Throat: Uvula is midline, oropharynx is clear and moist and mucous membranes are normal. Eyes: Pupils are equal, round, and reactive to light. Conjunctivae are normal. Neck: Normal range of motion. Neck supple. Cardiovascular: Normal rate, regular rhythm and normal heart sounds. Pulmonary/Chest: Effort normal and breath sounds normal. Lymphadenopathy: She has no cervical adenopathy. Neurological: She is alert and oriented to person, place, and time. Skin: Skin is warm and dry. Psychiatric: Affect and judgment normal. Nursing note and vitals reviewed. ASSESSMENT/PLAN: 1. Viral URI with cough - ICD9: 465.9, ICD10: J06.9, B97.89 - Discussed viral etiology and rationale for treatment. - Symptomatic treatment with prn analgesia - Supportive care with fluids and rest - tessalon for cough - Discussed with patient concerning symptoms to go to the emergency department or follow up here. Pt agreeable with this plan. Isidra Wilkins PA-C Referring Provider: SELF [200] Allergies As of Date: 12/19/2017 (No Known Allergies) Date Reviewed: 12/19/2017 Reviewed by: Shaylee Gonsalves Ma - Fully Assessed Reason for Visit: Cough [28] Chest Congestion [236] Primary Visit Diagnosis:Viral URI with cough [J06.9, B97.89] Order(s):benzonatate (TESSALON PERLE) 100 mg capsuleTake 2 capsules by mouth three times daily as needed.Disp: 30 capsuleRfl: 0 Prescriptions as of 12/19/2017 Sig: BENZONATATE 100 MG CAPSULE Take 2 capsules by mouth thre* Problem List As Of Date: 12/19/2017 (None) Prescriptions ordered this encounter Disp Refills Start End BENZONATATE 100 MG CAPSULE 30 c* 0 12/19/2017 Route: ORAL Sig: Take 2 capsules by mouth three times daily as needed. Encounter Status:Closed by ISIDRA WILKINS PA-C on 12/19/17 EMERGENCY DEPARTMENT Observed: 06/23/2017 Status: F Source: [place] 10:[address] [address] HEALTH INFORMATION MANAGEMENT EMERGENCY DEPARTMENT : [id number] Signed Patient: NAPOLEON LOW Acct:[id number] MRUN: [id number] : 1995 Sex: F Loc: ED ADM Date: 05/23/17 Room/Bed: DISC Date: History of Present Illness - General Chief Complaint: Cough Stated Complaint: COUGH RUNNY NOSE Symptom onset: 4 days HPI: patient reports cough with congestion (green in color). states runny nose, sore throat Time Seen by Provider: 05/23/17 16:10 Nurses Notes Reviewed and Agreed With?: Yes Source: Patient Mode of Transport: Ambulatory - History of Present Illness Initial Comments: 21-year-old female presents today signs congestion and drainage with sinus headache ?3 days. She states mild cough. She denies fever it's no flu vaccine. She denies shortness of breath or chest pain. She denies body aches. Denies other concerns at this time. MD Complaint: cough, nasal congestion, sinus pain Onset/Timin -: days(s) Severity: mild Consistency: constant Improves With: nothing Worsens With: nothing Context: sick contacts Associated Symptoms: denies other symptoms Treatments Prior to Arrival: none - Related Data Home Medications Medication Instructions Recorded Confirmed Azithromycin [Zithromax] 1 - 2 tab PO DAILY #6 tablet 05/23/17 Fluticasone Propionate [Flonase] 2 sprays NS DAILY #1 spray.susp 05/23/17 Loratadine [Claritin 10 mg Tablet] 10 mg PO DAILY #20 tablet 05/23/17 Allergies Allergy/AdvReac Type Severity Reaction Status Date / Time No Known Allergies Allergy Unverified 05/23/17 16:17 Home medications and allergies reviewed: Yes Review of System - Constitutional Constitutional: Present: Well developed, Well nourished, Non-toxic - Nose,Throat,Mouth Nose (ROS): Present: congestion, clear discharge. Absent: pain Throat: Absent: pain, swelling, discharge Mouth: Absent: pain, swelling - Respiratory Respiratory: Present: cough. Absent: sputum, short of breath, wheezing, hemoptysis - CV Cardiology: Absent: chest pain, edema - GI Gastrointestinal/Abdominal: Absent: abdominal pain, diarrhea, nausea, vomiting - Genitourinary Symptoms: Absent: dysuria - Neuro Neurological: Absent: headache, weakness - Muskuloskeletal Musculoskeletal: Absent: back pain, joint pain, joint swelling - Integumentary Skin: Absent: lesions, rash - Allergic/Immunologic Immunological/Allergic: Present: no symptoms reported - Hematologic Hematologic/Lymphatic: Absent: easy bleeding, easy bruising, swollen glands - Endocrine Endocrine: Present: no symptoms reported - Psychiatric Psychiatric: Present: Normal Affect, Normal Mood. Absent: Depressed - All Others/Exceptions All Other Systems: Reviewed and Negative Except Where Noted in Documentation General Exam - General Limitations: Complains of: no limitations Constitutional: Present: Well developed, Well nourished, well hydrated, Non-toxic - Head Head exam: Present: atraumatic, normocephalic, normal inspection - Eye Eye exam: Present: normal apperance, normal accomodation, EOMI Pupils: Present: PERRL - ENT ENT exam: Present: normal orophraynx, TMs clear w/ good light reflex, mucous membranes moist, normal external ear exam, Posterior Pharynx Non-erethemetous - Expanded ENT Exam Ear exam: Present: normal external inspection Nose: Present: drainage. Absent: tender Mouth exam: Present: normal external inspection Teeth exam: Present: normal inspection Throat exam: normal inspection, uvula midline - Neck Neck exam: Present: full ROM, Supple. Absent: tenderness, meningismus, Posterior Lymphadenopathy, Anterior Lymphadenopathy - Respiratory Respiratory exam: Present: lungs clear equal bilaterally. Absent: respiratory distress, wheezes, rales, rhonchi, stridor, decreased breath sounds, accessory muscle use, chest wall tenderness, prolonged expiratory phase, Subcostal Retractions, Intercostal Retractions, Other Retractions, Nasal Flaring, Flail segment, Ecchymosis, Crepitus - Cardiovascular Cardiovascular Exam: Present: regular rate, normal rhythm, normal heart sounds. Absent: murmur, rubs, gallop, clicks - GI/Abdominal GI/Abdominal exam: Present: soft, non tender, normal bowel sounds. Absent: guarding, rebound, rigid , mass, bruit - Extremities Exam Extremities exam: Present: normal inspection, full ROM, neurovascularly intact - Back Exam Back exam: Present: normal inspection, full ROM. Absent: tenderness - Neurological Exam Neurological exam: Present: alert, oriented X3, CN II-XII intact - Expanded Neurological Exam Patient oriented to: Present: person, place, time Speech: Present: fluid speech - Psychiatric Psychiatric exam: Present: normal affect, normal mood - Skin Skin Color: Present: Normal, [place] Skin exam: Present: warm, dry - Expanded Skin Exam Type of lesion: Absent: rash - Vital Signs Vital Signs 05/23/17 15:51 Temperature 99.7 F H Pulse Rate [ 116 H Pulse Ox] Respiratory 17 Rate Blood Pressure 129/86 [Left Arm] O2 Sat by Pulse 97 Oximetry(%) MDM URI - Lab Data Orders: Azithromycin [Zithromax] 1 - 2 tab PO DAILY #6 tablet 05/23/17 [Rx] Fluticasone Propionate [Flonase] 2 sprays NS DAILY #1 spray.susp 05/23/17 [Rx] Loratadine [Claritin 10 mg Tablet] 10 mg PO DAILY #20 tablet 05/23/17 [Rx] - Differential Diagnosis MDM URI: Considered: Allergic rhinitis, Sinusitis, URI, Other, Influenza A, Influenza B, Influenza H1N1, Otitis media, Peritonsillar abscess, Phyaryngitis, Pneumonia, Pertussis ED Discharge Summary - Discharge Data Clinical Impression: Acute sinusitis, Sinus headache Condition: Good Disposition: 01 HOME, SELF-CARE Admit is Medically Necessary, Anticipated Stay >2 Midnights:: No Referrals: АННА GOLDSTEIN [Primary Care Provider] - Additional Instructions: FOLLOW UP WITH YOUR PCP OR THE BACK UP PHYSICIAN LISTED ON HOME GOING INSTRUCTIONS IF NOT FEELING BETTER IN 3 DAYS RETURN TO THE ED IF SYMPTOMS WORSEN OR ANY OTHER CONCERNS At least one of your blood pressure readings in the Emergency Department visit today were above 120 /80. You need to follow up with your Primary Care Physician/Family Doctor within the next week about your blood pressure. OARRS Report Reviewed: No Home Medications: Ambulatory Orders Medication Instructions Recorded Azithromycin [Zithromax] 1 - 2 tab PO DAILY #6 tablet 05/23/17 Fluticasone Propionate [Flonase] 2 sprays NS DAILY #1 spray.susp 05/23/17 Loratadine [Claritin 10 mg Tablet] 10 mg PO DAILY #20 tablet 05/23/17 Home medications and allergies reviewed: Yes Time Seen by Provider: 05/23/17 16:10 Patient seen by Midlevel: Independently - Consultation I saw and examined the patient: Yes Nurses Notes Reviewed and Agreed With?: Yes - Dictation Amendments/Documentation: [employer] Document Only Electronically Generated By: LETITIA SILVA PA-C Generated Date/Time: 05/23/17 1619 Electronically Signed By: LETITIA SILVA PA-C Signed Date/Time 05/23/17 1623 Co Signed Electronically By: <Electronically signed by DANIEL HERNANDEZ DO> <Electronically signed by DANIEL HERNANDEZ DO> Co Signed Date/Time: 05/29/17 0741 05/29/17 0741 CC: АННА GOLDSTEIN (URINE) Collected: 05/23/2017 Status: F Source: [place] 10:29 PM [facility] REPOSITORY TYPE CODE TESTS RESULT OUT OF REFERENCE UNITS RANGE LAB UPREG(LOIN Negative C) Test Negative (urine) Performed By: #### PREGU #### [facility]-[address] [address] UA W/REFLEX CULTURE Collected: 05/23/2017 Status: F Source: [place] 10:29 PM [facility] REPOSITORY TYPE CODE TESTS RESULT OUT OF RANGE REFERENCE UNITS LAB UCOLR(LOIN Yellow C) Color aby LAB UAPP(LOINC Clear ) Appearance CLEAR LAB UGLU(LOINC Negative ) Glucose NORMAL LAB UBIL(LOINC Negative ) Abnormal Bilirubin 2+ Result Comment: ?Metabolites of etodolac or high concentration of urobilinogen may cause false positive results. Correlate clinically.? LAB UKET(LOINC) Negative Ketones NEGATIVE LAB USPG(LOINC) 1.015-1.025 Specific [place] 1.020 LAB UBLD(LOINC) Negative Blood NEGATIVE LAB UPH(LOINC) pH 5 LAB UPRO(LOINC) Negative Protein NEGATIVE LAB UURO(LOINC) Normal-1.0 mg/dL Urobilinogen NORMAL LAB UNIT(LOINC) Negative Nitrites NEGATIVE LAB ULEU(LOINC) Negative Leukocytes Esterase NEGATIVE Performed By: #### UARC #### [address] [id number] (38 INFLUENZA A B (RAPID) Collected: 05/23/2017 Status: F Source: [place] 10:29 PM [facility] TYPE CODE TESTS RESULT OUT OF REFERENCE UNITS RANGE LAB FLUA1(LOIN (Negative) C) Influenza A Negative antigen LAB FLUB1(LOIN (Negative) C) Influenza B Negative antigen Performed By: #### FLUAB #### [address] [address] BILIRUBIN CONFIRMATION Collected: 05/23/2017 Status: F Source: [place] 10:29 PM [facility] TYPE CODE TESTS RESULT OUT OF REFERENCE UNITS RANGE LAB ICTO(LOINC Negative ) Bilirubin Confirmation Negative Performed By: #### ICTO #### [address] [address] EMERGENCY DEPARTMENT Observed: 05/09/2017 Status: F Source: [place] 7:07 AM [facility] [place] SUMMARY NAME NUMBER SEX AGE ADMIT DISC TYPE MED.RECORD# MARANDA Nava [id number] F 21 05/06/17 05/06/17 Grisel [id number] ROOM:-D DATE OF :1995 PHYSICIAN NO.:[id number] PHYSICIAN NAME:LEE Concepcion M.D. PHYSICIAN:TRISTON JJ CNP CHIEF COMPLAINT: Fever, sore throat, and cough. HISTORY OF PRESENT ILLNESS: The patient began on Thursday the with a sore throat and runny nose. Within 24 hours, she developed a fever, cough, and body aches which have persisted. Minimal nausea and vomiting. No diarrhea. Cough is minimal nonproductive. PAST MEDICAL HISTORY: Negative for chronic medical problems. She does have osteogenesis imperfecta. PAST SURGICAL HISTORY: She has had previous cholecystectomy. MEDICATIONS: She takes no medications regularly. SOCIAL HISTORY: She lives at home. She does not smoke or drink alcohol. PHYSICAL EXAMINATION: This is a 21-year-old thin white female alert, appropriate, does not appear toxic or in any acute distress. Skin is pink, warm, and dry without any rashes. HEENT: Pupils equal, round, and reactive to light. Extraocular muscles intact. TMs are normal. Nose is normal. Mouth and throat appear normal. Neck is supple without adenopathy. Lungs are clear without crackles or wheezes. Cardiac exam is regular rhythm without any ectopy, murmurs, gallops, or rubs. Abdomen is soft without any apparent nontender. No guarding or rebound. She moves all extremities appropriately. Good peripheral pulses. Good capillary refill. Vital signs: Blood pressure 124/83, pulse 75, respirations 16, temperature 98.6. EMERGENCY DEPARTMENT COURSE AND TREATMENT: I discussed management with her. DIAGNOSIS: Flu like illness, probable influenza. PLAN/DISPOSITION: She was given a prescription for Tessalon, Tylenol, and ibuprofen as needed for fever. Follow up with family doctor in 3 to 5 days if no better. D: Kayden Concepcion MD TD: 10:05 JOB #: [id number] Electronically signed by: LEE Concepcion M.D. 05/09/17 07:05 Transcribed by: am 05/07/2017 11:58 ELECTRONICALLY SIGNED BY: LEE Concepcion M.D. 05/09/17 07:05 EMERGENCY REPORT Observed: 04/07/2017 Status: F Source: [place] 9:50 AM [facility] [place] REPORT NAME NUMBER SEX AGE ADMIT DISC TYPE MED.RECORD# MARANDA NAPOLEON J [id number] F 21 02/27/17 02/27/17 E.RPrincess [id number] ROOM:ER-D DATE OF :1995 PHYSICIAN NO.:[id number] PHYSICIAN NAME:E-Sign: Jeffrey Rajan D.O. PHYSICIAN: FAMILY PHYSICIAN: KAITLYN SHUKLA CHIEF COMPLAINT: Abdominal pain. HISTORY OF PRESENT ILLNESS: The patient is a 21-year-old female who presents for abdominal pain. The patient recently underwent gallbladder surgery 5 days ago and states that she has not had a bowel movement since the gallbladder surgery. The patient states she is having worsening abdominal pain, states that it is on the right side near her incision. The patient states that is has progressively worsened. She has not been able to eat. She has been drinking, however she has had some associated nausea, but no vomiting. The patient came to the ED because the pain has progressively worsened. The patient states that she feels as if she has had a temperature at home. The patient states that give her symptoms, she came to the ED for evaluation. PAST MEDICAL HISTORY: Osteogenesis imperfecta, scoliosis. PAST SURGICAL HISTORY: Cholecystectomy 2 days ago. MEDICATIONS: control. ALLERGIES: No known allergies. SOCIAL HISTORY: The patient is . She denies tobacco, alcohol or illicit drugs. REVIEW OF SYSTEMS: Positive for abdominal pain. The remainder of the review of systems are unremarkable. PHYSICAL EXAMINATION: VITAL SIGNS: Temperature 100.4, pulse 109, respirations 20, blood pressure 118/79, O2 saturation 98%. CONSTITUTIONAL: Moderately distress, alert and oriented. The patient appears to be in pain. CARDIAC: Regular rhythm. Tachycardiac, positive S1, S2. Negative for murmurs, rubs or gallops. PULMONARY: Clear to auscultation bilaterally. Negative for wheezes, rales or crackles. ABDOMEN: Distended, no evidence of rigidity. Mild guarding. Global diffuse pain to palpation. Surgical incision scars look healed. No signs of infection externally. Negative for bowel sounds. Negative for Cortse's or McBurney's. MUSCULOSKELETAL: Normal radial and DP pulses bilaterally. Negative for lower extremity edema, ulcerations or skin breakdown. DIAGNOSTIC DATA: WBCs 10.1, hemoglobin 13.8, hematocrit 40.1, platelets 258,000. Lactate 7.3. Urinalysis: Nitrites negative, leukocytes 25, WBCs [address] abdomen and pelvis with contrast shows: (1) Trace free fluid is present in the pelvis. (2) There is large stool volume in the proximal colon. (3) Gallbladder is absent. EMERGENCY DEPARTMENT COURSE AND TREATMENT: The patient on initial evaluation was tachycardiac with a slight temperature of 100.4 with a painful abdomen. We were concerned for possible sepsis secondary to infection from surgery. The patient did have lab work obtained which did show a normal white count. The patient has been given IV fluids and her tachycardia has since resolved. The patient did have a CT abdomen and pelvis which shows significant stool burden predominantly in the proximal colon, exactly where the patient is having pain. On further history, the patient states she has not had a bowel movement since before her surgery. The patient has been EMERGENCY ROOM REPORT MARANDA Nava [address] [place] [address] EMERGENCY ROOM REPORT NAME NUMBER SEX AGE ADMIT DISC TYPE MED.RECORD# MARANDA Nava [id number] F 21 02/27/17 02/27/17 Grisel [id number] ROOM:[place] DATE OF :1995 PHYSICIAN NO.:[id number] PHYSICIAN NAME:E-Sign: Jeffrey Rajan D.O. PHYSICIAN: FAMILY PHYSICIAN: KAITLYN SHUKLA taking a significant amount of pain medication at home. The patient does not have a urinary tract infection. At this time we feel that the patient's symptoms are secondary to the constipation. We did do a rectal exam and there was no stool burden in the rectum or evidence of impaction. Given the location of the stool, we figured this would be the case. The patient at this time is having a soapsuds enema and has been given magnesium citrate. We have given the patient a prescription for MiraLax as well as Dulcolax. DIAGNOSIS: 1. Abdominal pain. 2. Significant constipation. PLAN/DISPOSITION: At this time, we have elected to discharged the patient home for further management of her symptoms at home. We will have the patient follow up with her surgeon, Dr. Ellis, in the next 1 to 2 days for further evaluation. The patient has been given indications on when to return to the ED. The patient is nontoxic at this time, and we feel comfortable discharging the patient home. D: Steven Martinez DO TD: 18:58 JOB #: [id number] Electronically signed by: Not Currently Signed Transcribed by: rick 03/01/2017 03:39 Electronically signed by: STEVEN MARTINEZ DO 04/07/17 09:49 EMERGENCY ROOM REPORT MARANDA Nava 2 [facility] EMERGENCY ROOM REPORT NAME NUMBER SEX AGE ADMIT DISC TYPE MED.RECORD# MARANDA Nava [id number] F 21 02/27/17 02/27/17 Grisel [id number] ROOM:ER-D DATE OF :1995 PHYSICIAN NO.:[id number] PHYSICIAN NAME:E-Sign: Jeffrey Rajan D.O. PHYSICIAN: FAMILY PHYSICIAN: KAITLYN SHUKLA EMERGENCY ROOM REPORT MARANDA Nava 3 ALLERGIES ALLERGIES DATE TYPE / CODE NAME / CODE REACTION SEVERITY SOURCE 03/02/2018 Drug No Known Unknown [place] Allergy/438520303(S Allergies/F0019 [facility] [place]) [address](RXNORM) Hospital Repository Drug NO KNOWN [place] Class/582786409(SNO ALLERGIES [facility]) [place] Repository Miscellaneous No Known Drug Moderate [facility] All[facility]/985656270(S Allergies (Severity [facility] NOMED CT) Modifier) [facility] (Qualifier Repository Value) ENCOUNTERS ENCOUNTERS ADMIT/DISCHARGE ACCOUNT ADMITTING ENCOUNTER LOCATION SOURCE NUMBER CLASS 03/02/2018 [id number] Ambulatory [facility] ing:LABSPEC Repository 03/02/2018/03/02/20 [id number] Ambulatory BMSBuilding:B [place] [address] [place] [address] Repository 02/21/2018/02/24/20 [id number] Ambulatory [address] Repository 02/19/2018/02/20/20 [id number] Emergency [address] ing:ED Repository 01/03/2018/01/06/20 [id number] Ambulatory [address] Repository 12/19/2017/12/24/19 [id number] Ambulatory [address] Repository 05/23/2017/05/24/19 [id number] Emergency CHBuilding:ED [address] Repository 05/23/2017/05/24/19 [id number] Emergency CHBuilding:ED [address] Repository 05/06/2017/05/06/[id number] KAYDEN CONCEPCION Emergency Buildin[address] [place] [address] 18 [place] oom: ERBed: [facility] Repository 02/27/2017/02/28/20 [id number] NEMUNAITIS, Emergency [address]in[address] [place] [address] 17 JEFFREY oom: ERBed: [facility] Repository PAYERS PAYERS ENCOUNTER GUARANTOR PAYER SUBSCRIBER SOURCE 03/02/2018 NAPOLEON Nava Primary CLAUDIO Cota [id number] TR Insurance:HEALTH PLAN CALVERTDOB: [address] , [place] [address]Gic: PACOLETPolicy Number: Repository [id number] (HP) Date: [place], [place] [address]PV: 03/02/2018 Secondary NOT GIVENUNK [place] Insurance:SELF PAY [facility] Number: Effective Repository Date:2018-03-02 03/02/2018 NAPOLEON Nava Primary CLAUDIO Cota [id number] TR Insurance:HEALTH PLAN CALVERTDOB: [address] [address]Qpo: PACOLETPolicy Number: Repository [id number] (HP) Date: [place], [place] [address]BY: 03/02/2018 Secondary NOT GIVENUNK [place] Insurance:SELF PAY [facility] Number: Effective Repository Date:2018-03-02 02/19/2018 NAPOLEON Nava Primary CLAUDIO Cota [id number] TR Insurance:HEALTH PLAN CALVERTDOB: [address] [address]Kio: VALLEYPolicy Number: Repository [id number] (HP) Date: [place], [place] [address]JE: 02/19/2018 Secondary NOT GIVENUNK [place] Insurance:SELF PAY [facility] Number: Effective Repository Date:2018-02-19 05/23/2017 NAPOLEON Primary Insurance:HCFS [place] [id number] PENDINGPolicy Number: CALVERTDOB: [facility] [id number] [place] [address], Date:[address] Repository [place] [address]Rmj: [address] [place] [address], [place] [address]HY: (330) [place] [address]Pug: (HP) [phone] (HP) 05/23/2017 NAPOLEON Primary Insurance:HCFS [place] [id number] PENDINGPolicy Number: CALVERTDOB: [facility] [id number] [place] [address], Date:[address] Repository [place] [address]Bov: [address] [place] [address], [place] [address]XP: (330) [place] [address]Ebh: (HP) [phone] () 02/27/2017 [facility] [employer] [facility]: Insurance:AULTCARE CALVERTB: [id number] [id number] Hospital [address] [place] [address], Number: [place] [address] [place]ository [place] [address]Atg: [id number] Date:Plan Name:A2 (HP)
== END 2018-02-19 15:48 | disposition home or self-care (01) ==
PROVIDERS: Emergency Provider Emergency Medicine
DX: O26.899 Other specified pregnancy related conditions, unspecified trimester (principal); R10.9 Unspecified abdominal pain; M41.9 Scoliosis, unspecified; Z90.49 Acquired absence of other specified parts of digestive tract; Z3A.00 Weeks of gestation of pregnancy not specified
CPT/HCPCS: 81001; 84702; 99282

== ENCOUNTER → 2018-03-02 19:44 | Outpatient (CLI) | payer OTHER, SELFPAY ==
[2018-03-02 10:09] VITALS: BMI 18.1
[2018-03-02 22:18] LABS: Chlamydia Trachomatis by PCR Negative (Negative); Neisserai gonorrhoeae by PCR Negative (Negative); Probe Check PASS; Sample Adequacy Control PASS; Specimen Processing Control PASS
[2018-03-05 11:18] LABS: HPV Reflexed? NOT INDICATED
--- OUTSIDE RECORDS SUMMARY | 2018-04-19 00:14 | XMS RPT_ITS ---
:1995 Author Organization OHIP Support Name Relationship Address Phone BROASTLIV Unavailable [address] + [place] [address] ALBA, CLAUDIO Unavailable [address] + [place] [address] LESLI GAO Unavailable [address] + [place] [address] BROASTLIV Unavailable [address] + [place] [address] ALBA, CLAUDIO Unavailable [address] + [place] [address] LESLI GAO Unavailable [address] + [place] [address] BROASTLIV Unavailable [address] + [place] [address] ALBA CLAUDIO Unavailable [address] + [place] [address] LESLI GAO Unavailable [address] + [place] [address] BROASTLIV Unavailable [address] + [place] [address] ALBA, CLAUDIO Unavailable [address] + [place] [address] LESLI GAO Unavailable [address] + [place] [address] BROASTLIV Unavailable [address] + [place] [address] ALBA CLAUDIO Unavailable [address] + [place] [address] LESLI GAO Unavailable [address] + [place] [address] ALBA, CLAUDIO Unavailable Unavailable Unavailable MARY HAN Unavailable [address] + [place] [address] NOT GIVEN Unavailable Unavailable Unavailable BROASTLIV Unavailable [address] + [place] [address] ALBA, CLAUDIO Unavailable [address] + [place] [address] VIVIAN GAOIA Unavailable [address] + [place] [address] BROASTLIV Unavailable [address] + [place] [address] ALBA, CLAUDIO Unavailable [address] + [place] [address] LESLI GAO Unavailable [address] + [place] [address] BROASTLIV Unavailable [address] + [place] [address] ALBA, CLAUDIO Unavailable [address] + [place] [address] LESLI GAO Unavailable [address] + [place] [address] BROASTLIV Unavailable [address] + [place] [address] ALBA, CLAUDIO Unavailable [address] + [place] [address] LESLI GAO Unavailable [address] + [place] [address] BROASTLIV Unavailable [address] + [place] [address] ALBA, CLAUDIO Unavailable [address] + [place] [address] ALBA, CLAUDIO Unavailable [address] [facility] [address] + [place] [address] ALBA, CLAUDIO Unavailable [address] + [place] [address] UN Unavailable Unavailable Unavailable ALBA, CLAUDIO Unavailable [address] [facility] [address] + [place] [address] ALBA, CLAUDIO Unavailable [address] [facility] [address] + [place] [address] UN Unavailable Unavailable Unavailable ALBA, CLAUDIO Unavailable Unavailable Unavailable EMELY, MARY Unavailable [address] + [place] [address] NOT GIVEN Unavailable Unavailable Unavailable Care Team Providers Name Role Phone JAMEY, DR KAYDEN Freitas Admitting Unavailable JAMEY, DR KAYDEN Freitas Attending Unavailable JAMEY, DR KAYDEN Freitas Primary Care Unavailable АННА GOLDSTEIN CNP Referring Unavailable АННА GOLDSTEIN CNP Consulting Unavailable PROVIDER, UNKNOWN Consulting Unavailable PROVIDER, UNKNOWN Consulting Unavailable UMA HEBERT MD Admitting Unavailable UMA HEBERT MD Attending Unavailable UMA HEBERT MD Primary Care Unavailable АННА GOLDSTEIN CNP Consulting Unavailable АННА GOLDSTEIN CNP Referring Unavailable PROVIDER, UNKNOWN Consulting Unavailable PROVIDER, UNKNOWN Consulting Unavailable АННА GOLDSTEIN Primary Care Unavailable LETITIA FORD Attending Unavailable АННА GOLDSTEIN Primary Care Unavailable GIOVANI JOLLEY Attending Unavailable Hingham, Tonia Attending Unavailable Primay Care Physicia, No Referring Unavailable Hingham, Tonia Attending Unavailable Primay Care Physicia, No Primary Care Unavailable Kishor, Otnia Attending Unavailable [place]ingham, Tonia Referring Unavailable Primay Care Physicia, No Primary Care Unavailable Primay Care Physicia, No Primary Care Unavailable Lenka Velazquez Attending Unavailable Salomón Vieira Attending Unavailable Анна Goldstein Primary Care Unavailable Анна Goldstein Referring Unavailable Marcanthony, Natasha Attending Unavailable Jesús aHrvey Attending Unavailable Primay Care Physicia, No Primary Care Unavailable Marcanthony, Natasha Attending Unavailable Анна Goldstein Primary Care Unavailable Marcanthony, Natasha Referring Unavailable Marcanthony, Natasha Attending Unavailable Marcanthony, Natasha Referring Unavailable Анна Goldstein Primary Care Unavailable Marcanthony, Natasha Consulting Unavailable Marcanthony, Natasha Attending Unavailable Анна Goldstein Referring Unavailable PROBLEMS PROBLEMS DATE TYPE CONDITION / CODE ATTENDING STATUS SOURCE 04/13/2018 Unknown O02.1 - Missed Marcanthony, Active [facility] O02.1(ICD-10) Hospital Repository 03/15/2018 Unknown Z34.90 - Encounter Kishor, Active [place] for supervision of [facility] normal , Hospital unspecified, Repository unspecified trimester / Z34.90(ICD-10) 03/02/2018 Unknown Z34.00 - Encounter Hingham, Active [place] for supervision of [facility] normal first Hospital , Repository unspecified trimester / Z34.00(ICD-10) 03/02/2018 Unknown Z34.01 - Encounter [place]ingham, Active [place] for supervision of [facility] normal [facility] Hospital , first Repository trimester / Z34.01(ICD-10) 03/02/2018 Unknown Z3A.01 - Less than 8 Hingham, Active [place] weeks gestation of [facility] / Hospital Z3A.01(ICD-10) Repository 03/02/2018 Unknown Q78.0 - Osteogenesis Kishor, Active [place] imperfecta / [facility] Q78.0(ICD-10) Hospital Repository 07/21/2017 Working FEVER, UNSPECIFIED / GIOVANI JOLLEY Active [place] diagnosis R50.9(ICD-10) [facility] Repository 07/21/2017 Working NONINFECTIVE GIOVANI JOLLEY Active [place] diagnosis GASTROENTERITIS AND [facility] COLITIS, UNSPECIFIED Hospital / K52.9(ICD-10) Repository 07/21/2017 Working CHRONIC SINUSITIS, GIOVANI JOLLEY Active [place] diagnosis UNSPECIFIED / [facility] J32.9(ICD-10) Hospital Repository 07/21/2017 Working ACQUIRED ABSENCE OF GIOVANI JOLLEY Active [place] diagnosis OTHER SPECIFIED [facility] PARTS OF DIGESTIVE Hospital TRACT / Repository Z90.49(ICD-10) 07/21/2017 Working COUGH / R05(ICD-10) LILIANA, Active [place] diagnosis [facility] Repository 07/21/2017 Working ACUTE SINUSITIS, LILIANA, Active [place] diagnosis UNSPECIFIED / [facility] J01.90(ICD-10) Hospital Repository 07/21/2017 Working HEADACHE / FORD, Active [place] diagnosis R51(ICD-10) [facility] Repository 05/06/2017 Admitting Fever, unspecified / DR KAYDEN CONCEPCION Active [place] [facility] R509(ICD-10) [facility] Repository 05/06/2017 Principle Influenza due to CONCEPCION, DR NOVOA Active [place] Diagnosis unidentified [facility] influenza virus with Hospital other respiratory Repository manifestations / J111(ICD-10) 05/06/2017 Secondary Osteogenesis CONCEPCION, DR NOVOA Active [place] Diagnosis imperfecta / [facility] Q780(ICD-10) Hospital Repository 05/06/2017 Secondary Acquired absence of CONCEPCION, 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 [address] [place] [address] OFFICE VISIT Date of Service: 04/13/18 MR#: [id number] Acct: [id number] Name: NAPOLEON LOW Rep #: [id number] : 1995 Provider: Natasha Berumen MD Age/Sex: 22/F Location: [facility] Status: Signed Intake Vital Signs04/13/18 Body Mass Index (BMI) 19.4 Intake Visit Reasons: 2 WEEK POST OP Chief Complaint: 2w post op D AND C Scrub Nurse Required: No Is patient in pain?: No Allergies No Known Allergies Allergy (Verified 04/13/18 10:13) Medications vitamin#30 30 mg iron-10 mg iron-folic acid 1 mg- omg3 capsule 1 cap PO DAILY cap 03/02/18 [History Confirmed 03/29/18] Is last menstrual period known: No Post menopausal: No Patient : No : No PFSH Medical History Osteogenesis imperfecta (Acute) Surgical History Hx of cholecystectomy (Acute) Social History Smoking Status: Never smoker alcohol intake: never substance use type: does not use caffeine: Yes what type of physical activity do you participate in: walking seatbelt use: always do you feel safe at home: Yes additional social history: Claudio Patient works at [employer] [facility] 2 WEEK POST OP: Details: NAPOLEON LOW is a 22 year old who presents for fu from miscarriage. she is doing well. she is wanting to conceive again. Pregancy History 1 Elective abortions Hx Para Spontaneous abortions ROS Const Constitutional: Denies poor appetite, headache(s), fever(s), increased appetite, weight gain, weight loss or fatigue ENT ENT: Denies dry mouth GI GI: Reports as per HPI; denies vomiting, nausea, abdominal pain or constipation : Reports as per HPI; denies difficulty urinating, blood in urine, pelvic pain, urinary frequency, urinary incontinence, urinary hesitancy, urinary urgency, vaginal discharge, vaginal dryness, vaginal odor, vaginal itching, other, painful urination or nipple discharge Skin Skin/Breast: Denies hair loss, change in hair, dry skin, breast pain, breast skin changes, breast lump or nipple discharge Exam Const General: cooperative, healthy appearing, comfortable, no acute distress, well developed Nutritional Appearance: average body habitus Orientation: alert HENAR Head: normal to inspection, normocephalic Ears: hearing grossly normal bilaterally, external ears normal Nose: external nose normal, nares normal Face and sinus: normal facial exam Neck Neck: normal visual inspection, trachea midline, no lymphadenopathy Thyroid: thyroid normal Resp Effort AND Inspection: normal respiratory effort Musc Other: gross motor intact no deficits, full bilateral strength Skin General: no rashes or lesions noted Neuro Motor: muscle tone normal throughout Assessment AND Plan Problems 1. Missed O02.1 Plan discussed and plan on conceiving again, no additional recommendations Coding Level of Care Code No Charge Diagnoses Missed O02.1 04/13/18 1039 <Electronically signed by Natasha Berumen MD> Date Natasha Berumen MD Cosigner Signature: Date (if applicable) CC: EXECUTIVE OFFICER SPECIAL WARF[employer] TEAM OFFICE VISIT Observed: 04/12/2018 Status: F Source: [facility] RE[facility] 8:57 AM [facility] REPOSITORY [facility] [address] [place] [address] OFFICE VISIT Date of Service: 03/29/18 MR#: [id number] Acct: [id number] Name: NAPOLEON LOW Rep #: [id number] : 1995 Provider: Natasha Berumen MD Age/Sex: 22/F Location: [facility] Status: Signed with Addenda ADDENDUM by Natasha Berumen MD on 04/12/18 at 0857 Addendum entered and electronically signed by Natasha Berumen MD 04/12/18 08:57: patient evaluated by physician and nonviable IUP seen discussed options d and c versus cytotec medical management- patient chose cytotec. fu for surgery. Assessment AND Plan Problems 1. Missed O02.1 Plan - Natasha Berumen MD plan suction d and c Orders Orders: 04/12/18 0857 <Electronically signed by Natasha Berumen MD> Date Natasha Berumen MD cc: * Signed Intake Vital Signs03/29/18 Body Mass Index (BMI) 19.0 03/29/18 Height 4 ft 11 in 03/29/18 Weight: 98 lb 7 oz 03/29/18 Body Mass Index (BMI) 19.8 Intake Visit Reasons: OB bleeding Chief Complaint: est ob, VB Scrub Nurse Required: No Is patient in pain?: Yes Allergies No Known Allergies Allergy (Verified 03/29/18 13:27) Medications Ondansetron [Zofran Odt] 4 mg PO Q4H PRN PRN #10 tab.rapdis 02/19/18 [Rx Confirmed 03/29/18] vitamin#30 30 mg iron-10 mg iron-folic acid 1 mg- omg3 capsule 1 cap PO DAILY cap 03/02/18 [History Confirmed 03/29/18] Cephalexin [Keflex] 500 mg PO Q12 03/27/18 [History Confirmed 03/29/18] Last Menstral Period: 01/09/18 Zika: Zika virus [...] additional social history: Claudio Patient works at [employer] Pregancy History 1 Elective abortions Hx Para Spontaneous abortions HPI OB bleeding: Details: NAPOLEON LOW is a 22 year old who presents for routine OB visit. ACOG First Trimester First Trimester: Desire for , Alcohol, Tobacco Cessation, Illicit/Recreational Drug/Substance Use, Intimate Partner Violence, Barriers to care, Unstable Housing, Communication Barriers, Environmental/Work Hazards, Anticipated Course of Care, Toxoplasmosis Precations, Use of Any medications, Sexual activity, Exercise, Dental Care, Sauna/Hot tub use, Seat Belt use, Childbirth classes/Hospital facilities, , Travel, Indications for US and Screening for Aneuploidy Diagnostics Diagnostics Labs Blood Type A POSITIVE 03/30/18 Antibody Screen NEGATIVE 03/30/18 Hct 37.5 % (37-47) 03/30/18 Hgb 12.7 g/dl (12.0-15.0) 03/30/18 Obstetrics Ultrasound 03/15/18 Chlam trachomat DNA PCR Negative (Negative) 03/02/18 N.gonorrhoeae DNA (PCR) Negative (Negative) 03/02/18 Details: HIV: Urine Culture: Sequential Screen: NIPT Screen: Assessment AND Plan Orders Orders: Coding Level of Care Code OB Routine 03/30/18 0836 <Electronically signed by Tonia NORIEGA> Date Tonia NORIEGA Cosigner Signature: Date (if applicable) CC: Observed: 04/07/2018 Status: F Source: [place] URINE CULTURE 10:[address] [facility] REPOSITORY Sp. Request/Comment: - Specimen received in preservative Culture Result - 10,000 - <50,000 CFU/ml Normal urogenital sean Performed By: #### URCUL #### [facility] [address] [place], [place] [address] PROGRESS Observed: 04/07/2018 Status: COMPLETED Source: [place] 9:[address] [facility] REPOSITORY HNO ID: [id number] Author: Amrik Navarro Service: (none) Author Type: Physician Type: Progress Notes Filed: 04/07/2018 9:52 AM Note Text: Patient presents with: UTI: burning and frequency with urination x 2 days-recently had a DANDC done ST, FLANAGAN and ear pain: x 2-3 days HPI: URI symptoms for 2-3 days: Sore throat, headache, ear pain, cough, sinus pressure. Urinary Symptoms for 2 days. Dysuria: Yes Frequency: Yes Hematuria: No Nausea: No Fever or chills: No Prior UTI: Yes. Treated about 2 weeks ago with monistat. Yeast, BV, trichomoniasis, GC, chlamydia, and urine cultures were negative. She had a DANDC for miscarriage about 1 week ago. MEDICATIONS: Current Outpatient Prescriptions: ondansetron HCl (ZOFRAN ORAL) Take by mouth. For nausea - dispensed by [facility] 02/19/18 vit-iron fumarate-fa ( MULTIVITAMINS) 28 mg iron- 800 mcg tab Take 1 tablet by mouth once daily. No current facility-administered medications for this visit. ALLERGIES: ALLERGIES No Known Allergies VITALS: BP 104/72 Pulse 86 Temp 37.4 ?C (99.3 ?F) (Tympanic) Resp 18 Wt 43.5 kg (95 lb 12.8 oz) LMP 01/17/2018 (Approximate) SpO2 99% PHYSICAL EXAM: GEN: NAD HEENT: EOMI, conjunctiva clear, moist mucous membranes HEART: regular rate and rhythm, no murmurs LUNGS: clear to auscultation, no wheezes or crackles, no increased WOB ABDOMEN: Soft, nondistended, no masses, no suprapubic tenderness BACK: No CVA tenderness ASSESSMENT/PLAN: 1. Dysuria - ICD9: 788.1, ICD10: R30.0 (primary diagnosis) - UA positive for shabnam esterase - UA DIP, URINE (POC) - URINE CULTURE - CEPHALEXIN 500 MG CAPSULE 2. URI, acute - ICD9: 465.9, ICD10: J06.9 - Discussed viral etiology and rationale for treatment. - Symptomatic treatment Amrik Navarro MD CNOV Observed: 04/07/2018 Status: COMPLETED Source: [place] 9:[address] [facility] REPOSITORY Office Visit (WSTR) NAPOLEON LOW ([id number]) 1995 F Date Time Provider Department 04/07/18 9:15 AM AMRIK NAVARRO [facility] During your visit today, we recorded the following information about you: Temperature Pulse Respiration Blood pressure 99.3 degrees 86/minute 18/minute 104/72 Weight 43.5 kg Amrik Navarro MD 04/07/2018 9:52 AM Signed Patient presents with: UTI: burning and frequency with urination x 2 days-recently had a DANDC done ST, FLANAGAN and ear pain: x 2-3 days HPI: URI symptoms for 2-3 days: Sore throat, headache, ear pain, cough, sinus pressure. Urinary Symptoms for 2 days. Dysuria: Yes Frequency: Yes Hematuria: No Nausea: No Fever or chills: No Prior UTI: Yes. Treated about 2 weeks ago with monistat. Yeast, BV, trichomoniasis, GC, chlamydia, and urine cultures were negative. She had a DANDC for miscarriage about 1 week ago. MEDICATIONS: Current Outpatient Prescriptions: ondansetron HCl (ZOFRAN ORAL) Take by mouth. For nausea - dispensed by [facility] 02/19/18 vit-iron fumarate-fa ( MULTIVITAMINS) 28 mg iron- 800 mcg tab Take 1 tablet by mouth once daily. No current facility-administered medications for this visit. ALLERGIES: ALLERGIES No Known Allergies VITALS: BP 104/72 Pulse 86 Temp 37.4 ?C (99.3 ?F) (Tympanic) Resp 18 Wt 43.5 kg (95 lb 12.8 oz) LMP 01/17/2018 (Approximate) SpO2 99% PHYSICAL EXAM: GEN: NAD HEENT: EOMI, conjunctiva clear, moist mucous membranes HEART: regular rate and rhythm, no murmurs LUNGS: clear to auscultation, no wheezes or crackles, no increased WOB ABDOMEN: Soft, nondistended, no masses, no suprapubic tenderness BACK: No CVA tenderness ASSESSMENT/PLAN: 1. Dysuria - ICD9: 788.1, ICD10: R30.0 (primary diagnosis) - UA positive for shabnam esterase - UA DIP, URINE (POC) - URINE CULTURE - CEPHALEXIN 500 MG CAPSULE 2. URI, acute - ICD9: 465.9, ICD10: J06.9 - Discussed viral etiology and rationale for treatment. - Symptomatic treatment Amrik Navarro MD Referring Provider: SELF [200] Allergies As of Date: 04/07/2018 (No Known Allergies) Date Reviewed: 04/07/2018 Reviewed by: Juliet Tan LPN - Fully Assessed Reason for Visit: UTI [116] Cmt: burning and frequency with urination x 2 days-recently had a DANDC done ST, FLANAGAN and ear pain [Other] Cmt: x 2-3 days Reason For Visit History Recorded Primary Visit Diagnosis:Dysuria [R30.0] Other Visit Diagnosis:URI, acute [J06.9] Order(s):UA DIP, URINE (POC) [[id number]] Order #: [id number]. #:[id number] URINE CULTURE [SQURCUL] Order #: [id number] cephALEXin (KEFLEX) 500 mg capsuleTake 1 capsule by mouth twice daily for 7 days.Disp: 14 capsuleRfl: 0 Prescriptions as of 04/07/2018 Sig: ZOFRAN ORAL Take by mouth. For nausea - d* VIT NO.95-FERROUS FU* Take 1 tablet by mouth once d* CEPHALEXIN 500 MG CAPSULE Take 1 capsule by mouth twice* Problem List As Of Date 04/07/2018 Noted Resolved Osteogenesis imperfecta [Q78.0] INVALID FOR* Thoracogenic scoliosis of thoracolumbar region *INVALID FOR* Prescriptions ordered this encounter Disp Refills Start End CEPHALEXIN 500 MG CAPSULE 14 c* 0 04/07/2018 04/14/2018 Route: ORAL Sig: Take 1 capsule by mouth twice daily for 7 days. Encounter Status:Closed by AMRIK NAVARRO MD on 04/07/18 OPERATIVE REPORT Observed: 03/30/2018 Status: F Source: [place] 8:30 AM [facility] REPOSITORY [facility] Medical Records Department [address] [place] [address] Operative Report 03/30/18803 MR#: [id number] Acct: [id number] Name: NAPOLEON LOW Rep #: [id number] : 1995 22 From: Natasha Berumen MD PCP: Анна Goldstein APRN Status: REG [facility] [place] Location: [place] [address] Problem List (1) Missed Status: Acute Report of Operation Date of Procedure: 03/30/18 Pre-Operative Diagnosis: missed Post-Operative Diagnosis: same Surgery/Procedure Performed:: suciton d and c Description of Surgical Findings:: 8 week uterus Type of Anesthesia:: Local MAC Special Medications: none Specimen's removed: poc Drains: none Estimated Blood Loss (mL): 150 Fluids Replaced: crystalloid Description of Procedure: Patient was taken to the operating room and placed under MAC local anesthesia. She was prepped and draped in the normal sterile fashion the dorsal lithotomy position. Bladder was drained of clear urine and anterior lip of the cervix was grasped and the uterus sounded to 9. Cervix was progressively dilated to allow passage of a 9 suction curette. Progressive passes were made removing the retained products of conception without complication. Sharp curettage confirmed complete removal of the retained products. All instruments were removed from the vagina and excellent hemostasis was noted and the patient was taken to recovery in stable condition. Grafts/Implants Used: none - Complications none - Admit VTE Documentation VTE Present on Admission: No VTE Mechan Device Prophylaxis: SCD's 03/30/18 0830 <Electronically signed by Natasha Berumne MD> Date Natasha Berumen MD CC: TAMERA Goldstein; HARI Goldstein; Natasha Berumen MD Signed DISCHARGE INSTRUCTION Observed: 03/30/2018 Status: F Source: [place] 8:06 AM [facility] REPOSITORY [facility] Medical Records Department [address] [place] [address] Instructions for Home/Discharge Instructions 03/30/18 0805 MR#: [id number] Acct: [id number] Name: NAPOLEON LOW Rep #: [id number] : 1995 22 From: Natasha Berumen MD PCP: Анна Goldstein APRN Status: REG SDC Discharge Diet: No Restrictions Discharge Activity: Return to Normal Activity, May Shower, May Take a Tub Bath Allergies/Adverse Reactions: Allergies No Known Allergies Allergy (Verified 03/29/18 13:27) Medications to take at Discharge Ondansetron [Zofran Odt] 4 mg PO Q4H PRN PRN #10 tab.rapdis 02/19/18 vitamin#30 30 mg iron-10 mg iron-folic acid 1 mg- omg3 capsule 1 cap PO DAILY cap 03/02/18 Cephalexin [Keflex] 500 mg PO Q12 03/27/18 Primary Care Physician: Анна Goldstein, RN [Primary Care Provider] - Test Results: Test results from this visit will be discussed in further detail at your follow-up appointment, if applicable. Please Follow Up With: Natasha Berumen MD - [phone] 03/30/18 08 <Electronically signed by Natasha Berumen MD> Date Natasha Berumen MD CC: TAMERA Goldstein; HARI Goldstein Signed PRODUCTS OF CONCEPTION Observed: 03/30/2018 Status: F Source: [place] 7:30 AM [facility] REPOSITORY Patient: NAPOLEON LOW : 1995 (22/F) Acct Num: [id number] Phys: [place] NARVAEZ,Natasha Unit Num: [id number] Loc: [facility] Specimen: [id number] Received: 03/30/18914 Spec Type: PROD CONC TISSUES 1 TISSUES: Product of conception, NOS GROSS DESCRIPTION Received in fixative is one container labeled with the patient's name and designated products of conception. The specimen consists of multiple irregular fragments of red-zambrano soft tissue that in aggregate measure 5 x 4.5 x 1 cm. parts are not grossly recognized. Virology Teacher portions are submitted in one cassette. / AM:james 03/30/18 TC:5 CPT: 87394 HEADER OPERATION: Dilation and curettage, suction PRE-OP DIAGNOSIS: Missed TISSUE SUBMITTED: Products of conception MICROSCOPIC DESCRIPTION Slides are reviewed. MICROSCOPIC DIAGNOSIS Products of conception: Decidua, gestational endometrium and immature chorionic villi (products of conception). SJ:james 03/31/18 Signed Sam Schofield MD 03/31/18 <signature on file> Performed By: #### PPOC #### [facility] [address] [place] [place], [address] CBC-COMPLETE BLOOD CNT Collected: 03/30/2018 Status: F Source: [place] NO DIFF 6:10 AM [facility] REPOSITORY TYPE CODE TESTS RESULT OUT OF RANGE REFERENCE UNITS LAB L100.1000 4.4-11.0 K/mm3 Normal WBC 6.9 LAB L100.1200 4.2-5.4 M/mm3 Normal RBC 4.25 LAB L100.1300 12.0-15.0 g/dl Normal HGB 12.7 LAB L100.1400 37-47 % Normal HCT 37.5 LAB L100.1500 81-99 fL Normal MCV 88.2 LAB L100.1600 27.0-32.0 pg Normal MCH 29.9 LAB L100.1700 32-36 g/gl Normal MCHC 33.9 LAB L100.1810 11.6-14.6 % Normal RDW CV 12.2 LAB L100.1820 35.1-43.9 fl Normal RDW SD 38.8 LAB L100.1900 150-450 K/mm3 Normal PLT 266 LAB L100.2000 6.2-12.0 fl Normal MPV 9.8 Performed By: #### L100.0500 #### [facility] [address] [place], [address] TYPE AND SCREEN Collected: 03/30/2018 Status: F Source: [place] 6:10 AM [facility] REPOSITORY Order Comment: Reason for Type AND Screen/Red Cells: SURGERY TYPE CODE TESTS RESULT OUT OF RANGE REFERENCE UNITS LAB B10.0800 A Normal BLOOD TYPE GEL POSITIVE LAB B100.4000 Normal Antibody NEGATIVE Screen Performed By: #### B101.7450 #### [facility] [address] [place], [address] EMERGENCY DEPARTMENT Observed: 03/28/2018 Status: F Source: [place] SUMMARY 12:28 AM [facility] REPOSITORY [facility] Medical Records Department [address] [place] [address] Emergency Department Summary 03/27/18 2331 MR#: [id number] Acct: [id number] Name: NAPOLEON LOW Rep #: [id number] : 1995 22 From: Salomón Vieira DO PCP: Анна Goldstein APRN Status: REG ER - ER Visit Summary Date of Service: 03/27/18 Chief Complaint: Pelvic pain and vaginal bleeding History of Present Illness: The patient is a 22 F who presents with vaginal bleeding and pelvic pain that began yesterday. Patient went to [facility] yesterday and was diagnosed with a urinary tract infection. Patient states she has had 2 ultrasounds this and the is intrauterine. Patient admits to lower abdominal cramping and heavier bleeding today. Patient states yesterday she was only having bleeding intermittently. Today she states she is having some bleeding every time she goes to the bathroom. She states her bleeding is similar to her normal menstrual period. Patient does admit to some mild low back pain as well. Patient admits to some nausea but denies any vomiting. Patient has 1 para 0. Patient states her last menstrual period was 01/09/2018. Physical Examination: Vital signs are stable. Patient is afebrile. Patient is in no acute distress. Pupils are equal, round, reactive to light bilaterally. Extraocular muscles are intact. Sclera is blue. Oral mucosa is pink and moist. Neck is supple. Trachea is midline. There is no JVD noted. Heart was regular rate and rhythm. Lungs are clear and equal bilaterally. Abdomen is soft. There is some mild lower abdominal tenderness. There is no rebound or guarding noted. Cranial nerves II through XII are intact. There are no focal motor or sensory deficits noted. The remaining physical exam is within normal limits. Test Results: Urinalysis shows positive nitrates with 0-5 white blood cells, 0-5 red blood cells, and 0-5 epithelial cells. Quantitative hCG was 24,065. Blood type with a positive. Emergency Department Course and Treatment: Patient felt better on reevaluation. Patient was instructed on complete vaginal rest. Patient was instructed to drink plenty of fluids. Patient was instructed to follow-up with her [employer] in 2 days for repeat evaluation. Patient understood and was agreeable with the plan. All questions were answered. Disposition: Discharge home Impression: Threatened This note was generated with Clik[employer] dictation software. It may contain incorrect words, spelling, and punctuation that were not noted in review of the chart prior to signing ED Disposition - Plan for ED Patient: Disposition: Home or Assisted Living Chief Complaint: Vag Bld, Preg Diagnosis: Threatened spontaneous Instructions: ED Miscarriage Poss Referrals: Анна Goldstein RN [Primary Care Provider] - Natasha Berumen MD [STAFF PHYSICIAN] - What to do if you have Problems For any increased pain, shortness of breath, bleeding, nausea or vomiting, chest pain, or any unexpected problems, contact your Primary Care Provider. Call [employer] [facility] ([phone]) or report to the closest Emergency Room. Call 911 if necessary. 03/28/18 0028 <Electronically signed by Salomón Vieira DO> Date Salomón Vieira DO Cosigner Signature (If Indicated): Date CC: TAMERA Goldstein; CHEMICAL TREATMENT OPERATOR-C Анна Goldstein ABORH BLOOD TYPE, Collected: 03/27/2018 Status: F Source: [place] PATIENT 11:20 PM [facility] REPOSITORY TYPE CODE TESTS RESULT OUT OF RANGE REFERENCE UNITS LAB B100.1300 A Normal BLOOD POSITIVE TYPE PT Performed By: #### B100.0000 #### [facility] [address] [place], [address] HCG TITER QUANT., Collected: 03/27/2018 Status: F Source: [place] 11:20 PM [facility] REPOSITORY TYPE CODE TESTS RESULT OUT OF RANGE REFERENCE UNITS LAB L700.8000 <9 non-preg mIU/mL High HCG 87752 QUANT. Performed By: #### L700.8000 #### [facility] [address] [place], [address] URINALYSIS, COMPLETE Collected: 03/27/2018 Status: F Source: [place] 10:30 PM [facility] REPOSITORY Order Comment: How was Urine Obtained? FILTER TIP INSPECTOR TO SPECIFY TYPE CODE TESTS RESULT OUT OF RANGE REFERENCE UNITS LAB L400.3000 Yellow COLOR Normal Straw LAB L400.3050 Clear Normal CLARITY Sl. Cloudy LAB L400.3200 Normal mg/dl Normal GLUCOSE, UR Normal LAB L400.3300 Negative mg/dL Normal BILIRUBIN URINE Negative LAB L400.3400 Negative mg/dl Normal KETONE UR Negative LAB L400.3465 1.002-1.030 Normal SP.GR. DIPSTX 1.015 LAB L400.3550 5.0 - 8.0 pH UR Normal 7.0 LAB L400.3600 Negative mg/dl PROT Normal DIPSTX Negative LAB L400.3700 Normal mg/dl Normal UROBILI Normal LAB L400.3750 Negative High NITRITE UR Positive LAB L400.3780 Negative /ul High 50 OCCULT BLOOD-UR LAB L400.3800 Negative /ul LEUK Normal ESTERASE Negative LAB L400.4050 0-5 /hpf WBC Normal 0-5 SEEN LAB L400.4100 0-5 /hpf Normal RBC-UA 0-5 SEEN LAB L400.4150 5-10 /hpf SQUAM Normal EPI 0-5 SEEN LAB L400.4300 None Seen /hpf 0 Normal BACTERIA SEEN LAB L400.4350 <or=2+ /hpf 0 Normal MUCUS, URINE SEEN LAB L400.4900 3+ Normal AMORPHOUS Performed By: #### L400.0001 #### [facility] [place], [address] URINALYSIS Collected: 03/26/2018 Status: F Source: [facility] 11:18 PM [facility] REPOSITORY TYPE CODE TESTS RESULT OUT OF REFERENCE UNITS RANGE LAB URINALYSIS (LOINC) URINALYSIS Result Comment: URINALYSIS LAB Specimen Type(LOINC) Specimen Type Clean catch LAB Color(LOINC) NORMAL: YELLOW Color YELLOW LAB Clarity(LOINC) NORMAL: CLEAR Clarity Abnormal CLOUDY LAB ph(LOINC) NORMAL: 5.0-8.0 ph 6.5 LAB Protein(LOINC) NORMAL: NEGATIVE Protein NEG LAB Glucose(LOINC) NORMAL: NORMAL Glucose NORM LAB Ketone(LOINC) NORMAL: NEGATIVE Ketone NEG LAB Bilirubin(LOINC) NORMAL: NEGATIVE Bilirubin NEG LAB Blood(LOINC) NORMAL: NEGATIVE Blood Abnormal 250 LAB Urobilinog(LOINC) NORMAL: NORMAL Urobilinog NORM LAB Sp [place](LOINC) NORMAL: 1.010-1.030 Sp [place] 1.020 LAB Nitrite(LOINC) NORMAL: NEGATIVE Nitrite NEG LAB Leukocytes(LOINC) NORMAL: NEGATIVE Leukocytes Abnormal 25 LAB Microscopic(LOINC ) Microscopic SEE BELOW Result Comment: MICROSCOPIC LAB Wbc(LOINC) 0-5/hpf Wbc 1-5 LAB Rbc(LOINC) 0-3/hpf Rbc 10-15 LAB Casts(LOINC) Casts NONE LAB Crystals(LOINC) Crystals NONE LAB Amorphous(LOINC) 1+ Amorphous LAB Bacteria(LOINC) Bacteria TRACE LAB Epi Cells(LOINC) Epi Cells MODERATE LAB Mucous(LOINC) Mucous TRACE LAB Yeast(LOINC) Yeast NONE Performed By: #### [id number] #### [facility],[address] [facility] [address] BB TYPE & SCREEN Collected: 03/26/2018 Status: F Source: [facility] 11:18 PM [facility] REPOSITORY TYPE CODE TESTS RESULT OUT OF REFERENCE UNITS RANGE LAB BB TYPE & SCREEN(LOIN C) BB TYPE & SCREEN Result Comment: TYPE, Rh, AND SCREEN LAB ABO(LOINC) ABO A LAB Rh(LOINC) Rh POS LAB ANTIBODY SCR(INC) ANTIBODY negative SCR Performed By: #### [id number] #### [facility],[address] [place] [address] GC/CHLAMYDIA AMPLIF Collected: 03/21/2018 Status: F Source: [place] 9:[address] [facility] REPOSITORY TYPE CODE TESTS RESULT OUT OF REFERENCE UNITS RANGE LAB GCCTSR GC/Chlam Amp Vaginal Source LAB GCAMPL GC Negative Amplification for Neisseria gonorrhoeae by amplification. LAB CLAMPL Chlamydia Negative Amplif for Chlamydia trachomatis by amplification. Performed By: #### GCCT #### [place] [address] VAG PATHOGENS DNA Collected: 03/21/2018 Status: F Source: [place] 9:[address] [facility] REPOSITORY TYPE CODE TESTS RESULT OUT OF REFERENCE UNITS RANGE LAB TVDNA Negative for Trichomonas Negative vaginalis by DNA Trich vag for Trichomonas Probe DNA Probe vaginalis by DNA Probe LAB GVDNA Negative for Gardnerella Negative vaginalis by DNA Adrien vag for Gardnerella Probe DNA Probe vaginalis by DNA Probe LAB CANDNA Negative for Jennifer species Negative by DNA Probe Jennifer for Jennifer sp DNA Probe species by DNA Probe Performed By: #### VAGDNA #### [place] [address] PROGRESS Observed: 03/21/2018 Status: COMPLETED Source: [place] 9:[address] [facility] REPOSITORY HNO ID: [id number] Author: Alissa Traore (Kerry Polk Service: (none) Author Type: Nurse Practitioner Type: Progress Notes Filed: 03/21/2018 9:23 AM Note Text: Subjective HPI Patient presents with: Urinary Problem: x2 days possible yeast infection: x2 days States 7-8 weeks . Denies hx of frequent UTIs or yeast infecftion Review of Systems Constitutional: Negative for chills, fever and malaise/fatigue. Gastrointestinal: Negative for abdominal pain, diarrhea, nausea and vomiting. Genitourinary: Positive for dysuria and frequency. Negative for flank pain and hematuria. Vaginal discharge/itchiness/odor Denies exposure to STD Musculoskeletal: Negative for back pain. All other systems reviewed and are negative. PAST MEDICAL HISTORY Diagnosis Date - Osteogenesis imperfecta 02/21/2018 - Thoracogenic scoliosis of thoracolumbar region 02/21/2018 No past surgical history on file. ALLERGIES Patient has no known allergies. MEDICATIONS ondansetron HCl (ZOFRAN ORAL) Take by mouth. For nausea - dispensed by [facility] 02/19/18 vit-iron fumarate-fa ( MULTIVITAMINS) 28 mg iron- 800 mcg tab Take 1 tablet by mouth once daily. Miconazole Nitrate (MONISTAT 1 COMBO PACK) kit Use 1 Each vaginally one time only for 1 dose. No family history on file. Social History Substance Use Topics - Smoking status: Never Smoker - Smokeless tobacco: Never Used - Alcohol use Not on file Objective Physical Exam Genitourinary: Vulva exhibits erythema. Thick creamy musty white and vaginal discharge found. Genitourinary Comments: Track Repairer present Nursing note and vitals reviewed. ASSESSMENT/PLAN: 1. Dysuria - ICD9: 788.1, ICD10: R30.0 (primary diagnosis) acute - UA negative - Send urine for culture - Patient education for prevention given - UA DIP, URINE (POC) - URINE CULTURE 2. Vaginal yeast infection - ICD9: 112.1, ICD10: B37.3 -[place] -Reviewed maria d-care -F/u with pcp in 3-5 days or sooner if symptoms are not improving or worsening Prescription instructions reviewed with patient as applicable. Patient advised if symptoms do not improve or if symptoms worsen sooner, to contact their primary care physician. Potential red flag symptoms discussed with the patient. Reviewed appropriate action plan to take if red flag symptoms occur. Patient agreeable to treatment plan. Alissa Polk APRN.[employer]CH[employer]IC Observed: 03/21/2018 Status: F Source: [place] URINE CULTURE 8:45 AM [facility] REPOSITORY Sp. Request/Comment: - Specimen received in preservative Culture Result - 10,000 - <50,000 CFU/ml Normal urogenital sean Performed By: #### URCUL #### [facility] [address] [place], [place] [address] CNOV Observed: 03/21/2018 Status: COMPLETED Source: [place] 8:[address] [facility] REPOSITORY Office Visit (WSTR) NAPOLEON LOW ([id number]) 1995 F Date Time Provider Department 03/21/18 8:30 AM ALISSA POLK (FATIMAH) [facility] During your visit today, we recorded the following information about you: Temperature Pulse Respiration Blood pressure 98 degrees 76/minute 12/minute 100/78 Weight 43.5 kg Alissa Polk APRN.CNP 03/21/2018 8:56 AM Signed [facility] PATIENT INFO VAGINAL YEAST INFECTION INTRODUCTION Vaginal yeast infections are a common problem in women. Vaginal yeast infections are also called yeast vaginitis or vaginal candidiasis. The most common symptoms of a yeast infection are itching and irritation of the vulva and around the opening of the vagina. Yeast infections occur mainly in women who are menstruating (having monthly periods). They are less common in postmenopausal women who do not take estrogen and in girls who have not yet started menstruating. VAGINAL YEAST INFECTION SYMPTOMS The most common symptoms of a yeast infection include: ? Itching or irritation of the vulva and around the vaginal opening. ? Pain with urination, vulvar soreness or irritation, ? Pain with intercourse ? Reddened and swollen vulvar and vaginal tissues. ? Some women have no abnormal vaginal discharge. Others have white clumpy (curd-like) or watery vaginal discharge. Symptoms of a yeast infection are similar to a number of other conditions, including bacterial vaginosis (a bacterial infection of the vagina), trichomoniasis (a sexually transmitted infection), and dermatitis (irritated skin). It is often not possible to know if itching is caused by yeast or other causes. VAGINAL YEAST INFECTION CAUSE The fungus that causes yeast infections (named Jennifer) normally lives in the gastrointestinal tract and sometimes the vagina. Normally, Jennifer causes no symptoms. However, when there are changes in the normal sean of the gastrointestinal tract and vagina (caused by medicines, injury, or stress to the immune system), Jennifer can overgrow and cause the symptoms described above. VAGINAL YEAST INFECTION RISK FACTORS In most women, there is no underlying health problem that leads to a yeast infection. There are several risk factors that may increase the chances of developing an infection, including: ? Antibiotics ? Most antibiotics kill a wide variety of bacteria, including those that normally live in the vagina. These bacteria protect the vagina from the overgrowth of yeast. Some women are prone to yeast infections while taking antibiotics. ? Hormonal contraceptives (eg, control pills, patch, and vaginal ring) ? The risk of yeast infections may be higher in women who use control methods containing estrogen. ? Contraceptive devices ? Vaginal sponges, diaphragms, and intrauterine devices (IUDs) may increase the risk of yeast infections. Spermicides do not usually cause yeast infections, although they can cause you to have vaginal or vulvar irritation. ? Weakened immune system ? Yeast infections are more common in people who have a weakened immune system due to HIV or use of certain medications (steroids, chemotherapy, post-organ transplant medications). ? ? Vaginal discharge becomes more noticeable during , although yeast infection is not always the cause. ? Diabetes ? Women with diabetes are at higher risk for yeast infections, especially if blood sugar levels are often higher than normal. ? Sexual activity ? Vaginal yeast infections are not a sexually transmitted infection. They can occur in women who have never been sexually active, but are more common in women who are sexually active. VAGINAL YEAST INFECTION DIAGNOSIS Yeast infections can be diagnosed with an exam. During the exam, your doctor or nurse will examine your vulva and vagina and swab the vagina to get a sample of discharge. Do not begin treatment at home before being examined. Self-diagnosis ? Women with vulvar itching or vaginal discharge often assume that their symptoms are caused by a yeast infection and then use a non-prescription treatment. However, in one study, only 11 percent of women accurately diagnosed their infection; women with a previous yeast infection were only slightly more accurate (35 percent correct). Diagnosing and treating yourself: ? Wastes money (on non-prescription treatment) ? Wastes time; you will not feel better until you use the right treatment ? Can make you more itchy and irritated VAGINAL YEAST INFECTION TREATMENT Treatment of a vaginal yeast infection may include a pill that you take by mouth or a vaginal treatment. Vaginal treatment ? Treatment for a vaginal yeast infection often includes a vaginal cream or tablet. You apply the cream or tablet inside the vagina at bedtime with an applicator. There are prescription and non-prescription treatments, so ask your doctor or nurse which to use. One, three, and seven-day treatments are equally effective. Oral treatment ? A prescription pill called fluconazole (Diflucan?) is another option for treating yeast infections. Most women only need one dose, although women with more complicated infections (such as those with underlying medical problems, recurrent yeast infections, or severe signs and symptoms) may require a second dose 72 hours (3 days) after the first dose. Side effects of fluconazole are mild and infrequent, but may include stomach upset, headache, and rash. Fluconazole interacts with a number of medications; ask your doctor, nurse, or pharmacist if you have concerns. Fluconazole is not usually recommended during the first trimester of due to the potential risk of harm to the fetus. When will I feel better? ? Most yeast infections go away within a few days after starting treatment. However, you may continue to feel itchy and irritated, even after the infection is gone. If you do not get better within a few days after finishing treatment, call your doctor or nurse for advice. RECURRENT VAGINAL YEAST INFECTIONS Between 5 and 8 percent of women have recurrent yeast infections, defined as more than four infections per year. There is no evidence that eating yogurt or other products containing live Lactobacillus acidophilus, or applying these products to the vagina is of any benefit in women with recurrent vaginal yeast infections. Diagnosis ? As with initial yeast infections, it is important to correctly diagnose recurrent yeast infections. A woman who has frequent signs and symptoms of vulvar or vaginal irritation or itching should be seen by a healthcare provider to ensure that her symptoms are caused by yeast rather than other common problems (eg, other vaginal infections, allergic reaction or sensitivity, eczema). As with initial infections, self-diagnosis is not accurate enough to recommend treatment. Treatment ? Women with recurrent infections are usually given a longer course of treatment for infections, between 7 and 14 days for a topical (cream or suppository) medication or fluconazole 150 mg by mouth with a second and third dose 3 and 6 days later. Preventive treatment may be recommended after the infection has resolved; this may include fluconazole (150 mg orally once per week) or clotrimazole (500 mg vaginal suppositories administered once per week). Treatment of a sexual partner ? Vaginal yeast infections are not a sexually transmitted infection, although the infection may rarely be passed from one partner to another. Most experts do not recommend treatment of a sexual partner. SUMMARY ? Vaginal yeast infections are a common problem in women. ? Itching is the most common symptom of a vaginal yeast infection. Women may also note pain with urination, soreness or irritation, pain with intercourse, or reddened and swollen vulvar and vaginal tissues. There is often little or no vaginal discharge; if present, discharge is typically white and clumpy (curd-like) or thin and watery. ? Symptoms of a yeast infection are similar to a number of other conditions. A physical examination is needed to determine the cause of symptoms. ? There are several risk factors that may increase the chances of developing a yeast infection, including use of antibiotics, control, diabetes, , and a weakened immune system (due to chemotherapy, HIV, or certain medications). ? To diagnose a vaginal yeast infection, a healthcare provider will do an examination. It is important to be seen when symptoms are bothersome and before any treatment is used. ? Do not begin treatment for a yeast infection before being examined. ? Treatment of vaginal yeast infection may include a vaginal cream or tablet or a pill taken by mouth. Alissa Polk APRN.[employer]CH[employer]IC 03/21/2018 9:23 AM Signed Subjective HPI Patient presents with: Urinary Problem: x2 days possible yeast infection: x2 days States 7-8 weeks . Denies hx of frequent UTIs or yeast infecftion Review of Systems Constitutional: Negative for chills, fever and malaise/fatigue. Gastrointestinal: Negative for abdominal pain, diarrhea, nausea and vomiting. Genitourinary: Positive for dysuria and frequency. Negative for flank pain and hematuria. Vaginal discharge/itchiness/odor Denies exposure to STD Musculoskeletal: Negative for back pain. All other systems reviewed and are negative. PAST MEDICAL HISTORY Diagnosis Date - Osteogenesis imperfecta 02/21/2018 - Thoracogenic scoliosis of thoracolumbar region 02/21/2018 No past surgical history on file. ALLERGIES Patient has no known allergies. MEDICATIONS ondansetron HCl (ZOFRAN ORAL) Take by mouth. For nausea - dispensed by [facility] 11/30/18 vit-iron fumarate-fa ( MULTIVITAMINS) 28 mg iron- 800 mcg tab Take 1 tablet by mouth once daily. Miconazole Nitrate (MONISTAT 1 COMBO PACK) kit Use 1 Each vaginally one time only for 1 dose. No family history on file. Social History Substance Use Topics - Smoking status: Never Smoker - Smokeless tobacco: Never Used - Alcohol use Not on file Objective Physical Exam Genitourinary: Vulva exhibits erythema. Thick creamy musty white and vaginal discharge found. Genitourinary Comments: Track Repairer present Nursing note and vitals reviewed. ASSESSMENT/PLAN: 1. Dysuria - ICD9: 788.1, ICD10: R30.0 (primary diagnosis) acute - UA negative - Send urine for culture - Patient education for prevention given - UA DIP, URINE (POC) - URINE CULTURE 2. Vaginal yeast infection - ICD9: 112.1, ICD10: B37.3 -[place]ist[place] -Reviewed maria d-care -F/u with pcp in 3-5 days or sooner if symptoms are not improving or worsening Prescription instructions reviewed with patient as applicable. Patient advised if symptoms do not improve or if symptoms worsen sooner, to contact their primary care physician. Potential red flag symptoms discussed with the patient. Reviewed appropriate action plan to take if red flag symptoms occur. Patient agreeable to treatment plan. Alissa Polk APRN.[employer]CH[employer]IC Referring Provider: SELF [[id number]] Allergies As of Date: 03/21/2018 (No Known Allergies) Date Reviewed: 03/21/2018 Reviewed by: Shea Caban Ma - Fully Assessed Reason for Visit: Urinary Problem [252] Cmt: x2 days possible yeast infection [Other] Cmt: x2 days Primary Visit Diagnosis:Dysuria [R30.0] Other Visit Diagnosis:Vaginal yeast infection [B37.3] Order(s):UA DIP, URINE (POC) [4725310] Order #: [id number]. #:[id number] URINE CULTURE [SQURCUL] Order #: [id number] Miconazole Nitrate (MONISTAT 1 COMBO PACK) kitUse 1 Each vaginally one time only for 1 dose.Disp: 1 EachRfl: 0 VAGINAL PATHOGENS DNA PROBES [SQVAGDNA] Order #: [id number] GC/CHLAMYDIA DNA DET [SQGCCAMP] Order #: [id number] Prescriptions as of 03/21/2018 Sig: ZOFRAN ORAL Take by mouth. For nausea - d* VIT NO.95-FERROUS FU* Take 1 tablet by mouth once d* MICONAZOLE NITRATE 1,200 MG-2* Use 1 Each vaginally one time* Problem List As Of Date 03/21/2018 Noted Resolved Osteogenesis imperfecta [Q78.0] INVALID FOR* Thoracogenic scoliosis of thoracolumbar region *INVALID FOR* Other instructions from your clinician: [facility] PATIENT INFO VAGINAL YEAST INFECTION INTRODUCTION Vaginal yeast infections are a common problem in women. Vaginal yeast infections are also called yeast vaginitis or vaginal candidiasis. The most common symptoms of a yeast infection are itching and irritation of the vulva and around the opening of the vagina. Yeast infections occur mainly in women who are menstruating (having monthly periods). They are less common in postmenopausal women who do not take estrogen and in girls who have not yet started menstruating. VAGINAL YEAST INFECTION SYMPTOMS The most common symptoms of a yeast infection include: ? Itching or irritation of the vulva and around the vaginal opening. ? Pain with urination, vulvar soreness or irritation, ? Pain with intercourse ? Reddened and swollen vulvar and vaginal tissues. ? Some women have no abnormal vaginal discharge. Others have white clumpy (curd-like) or watery vaginal discharge. Symptoms of a yeast infection are similar to a number of other conditions, including bacterial vaginosis (a bacterial infection of the vagina), trichomoniasis (a sexually transmitted infection), and dermatitis (irritated skin). It is often not possible to know if itching is caused by yeast or other causes. VAGINAL YEAST INFECTION CAUSE The fungus that causes yeast infections (named Jennifer) normally lives in the gastrointestinal tract and sometimes the vagina. Normally, Jennifer causes no symptoms. However, when there are changes in the normal sean of the gastrointestinal tract and vagina (caused by medicines, injury, or stress to the immune system), Jennifer can overgrow and cause the symptoms described above. VAGINAL YEAST INFECTION RISK FACTORS In most women, there is no underlying health problem that leads to a yeast infection. There are several risk factors that may increase the chances of developing an infection, including: ? Antibiotics ? Most antibiotics kill a wide variety of bacteria, including those that normally live in the vagina. These bacteria protect the vagina from the overgrowth of yeast. Some women are prone to yeast infections while taking antibiotics. ? Hormonal contraceptives (eg, control pills, patch, and vaginal ring) ? The risk of yeast infections may be higher in women who use control methods containing estrogen. ? Contraceptive devices ? Vaginal sponges, diaphragms, and intrauterine devices (IUDs) may increase the risk of yeast infections. Spermicides do not usually cause yeast infections, although they can cause you to have vaginal or vulvar irritation. ? Weakened immune system ? Yeast infections are more common in people who have a weakened immune system due to HIV or use of certain medications (steroids, chemotherapy, post-organ transplant medications). ? ? Vaginal discharge becomes more noticeable during , although yeast infection is not always the cause. ? Diabetes ? Women with diabetes are at higher risk for yeast infections, especially if blood sugar levels are often higher than normal. ? Sexual activity ? Vaginal yeast infections are not a sexually transmitted infection. They can occur in women who have never been sexually active, but are more common in women who are sexually active. VAGINAL YEAST INFECTION DIAGNOSIS Yeast infections can be diagnosed with an exam. During the exam, your doctor or nurse will examine your vulva and vagina and swab the vagina to get a sample of discharge. Do not begin treatment at home before being examined. Self-diagnosis ? Women with vulvar itching or vaginal discharge often assume that their symptoms are caused by a yeast infection and then use a non-prescription treatment. However, in one study, only 11 percent of women accurately diagnosed their infection; women with a previous yeast infection were only slightly more accurate (35 percent correct). Diagnosing and treating yourself: ? Wastes money (on non-prescription treatment) ? Wastes time; you will not feel better until you use the right treatment ? Can make you more itchy and irritated VAGINAL YEAST INFECTION TREATMENT Treatment of a vaginal yeast infection may include a pill that you take by mouth or a vaginal treatment. Vaginal treatment ? Treatment for a vaginal yeast infection often includes a vaginal cream or tablet. You apply the cream or tablet inside the vagina at bedtime with an applicator. There are prescription and non-prescription treatments, so ask your doctor or nurse which to use. One, three, and seven-day treatments are equally effective. Oral treatment ? A prescription pill called fluconazole (Diflucan?) is another option for treating yeast infections. Most women only need one dose, although women with more complicated infections (such as those with underlying medical problems, recurrent yeast infections, or severe signs and symptoms) may require a second dose 72 hours (3 days) after the first dose. Side effects of fluconazole are mild and infrequent, but may include stomach upset, headache, and rash. Fluconazole interacts with a number of medications; ask your doctor, nurse, or pharmacist if you have concerns. Fluconazole is not usually recommended during the first trimester of due to the potential risk of harm to the fetus. When will I feel better? ? Most yeast infections go away within a few days after starting treatment. However, you may continue to feel itchy and irritated, even after the infection is gone. If you do not get better within a few days after finishing treatment, call your doctor or nurse for advice. RECURRENT VAGINAL YEAST INFECTIONS Between 5 and 8 percent of women have recurrent yeast infections, defined as more than four infections per year. There is no evidence that eating yogurt or other products containing live Lactobacillus acidophilus, or applying these products to the vagina is of any benefit in women with recurrent vaginal yeast infections. Diagnosis ? As with initial yeast infections, it is important to correctly diagnose recurrent yeast infections. A woman who has frequent signs and symptoms of vulvar or vaginal irritation or itching should be seen by a healthcare provider to ensure that her symptoms are caused by yeast rather than other common problems (eg, other vaginal infections, allergic reaction or sensitivity, eczema). As with initial infections, self-diagnosis is not accurate enough to recommend treatment. Treatment ? Women with recurrent infections are usually given a longer course of treatment for infections, between 7 and 14 days for a topical (cream or suppository) medication or fluconazole 150 mg by mouth with a second and third dose 3 and 6 days later. Preventive treatment may be recommended after the infection has resolved; this may include fluconazole (150 mg orally once per week) or clotrimazole (500 mg vaginal suppositories administered once per week). Treatment of a sexual partner ? Vaginal yeast infections are not a sexually transmitted infection, although the infection may rarely be passed from one partner to another. Most experts do not recommend treatment of a sexual partner. SUMMARY ? Vaginal yeast infections are a common problem in women. ? Itching is the most common symptom of a vaginal yeast infection. Women may also note pain with urination, soreness or irritation, pain with intercourse, or reddened and swollen vulvar and vaginal tissues. There is often little or no vaginal discharge; if present, discharge is typically white and clumpy (curd-like) or thin and watery. ? Symptoms of a yeast infection are similar to a number of other conditions. A physical examination is needed to determine the cause of symptoms. ? There are several risk factors that may increase the chances of developing a yeast infection, including use of antibiotics, control, diabetes, , and a weakened immune system (due to chemotherapy, HIV, or certain medications). ? To diagnose a vaginal yeast infection, a healthcare provider will do an examination. It is important to be seen when symptoms are bothersome and before any treatment is used. ? Do not begin treatment for a yeast infection before being examined. ? Treatment of vaginal yeast infection may include a vaginal cream or tablet or a pill taken by mouth. Prescriptions ordered this encounter Disp Refills Start End MICONAZOLE NITRATE 1,200 MG-2 % VAGI* 1 Ea* 0 03/21/2018 03/21/2018 Route: VAGINAL Sig: Use 1 Each vaginally one time only for 1 dose. Disposition: Return if symptoms worsen or fail to improve. Follow-up and Disposition History Recorded Encounter Status:Closed by ALISSA POLK on 03/21/18 TRANSVAGINAL W/PREG US Observed: 03/15/2018 Status: F Source: [place] 11:29 AM [facility] REPOSITORY [facility] Imaging Services [address] [place] [address] Transvaginal w/Preg US MR#: [id number] Acct: [id number] Name: NAPOLEON LOW Rep #: [id number] : 1995 F 22 From: Joseph Razo MD PCP: Анна Goldstein APRN Status: REG CLI Study: Transvaginal w/Preg US Date of Exam: 03/15/18 Exam# [id number] Ordering Dr: Tonia Iverson CHEMICAL TREATMENT OPERATOR-C HISTORY: GSAGestational size/ageReason for Exam-OB (US) LMP: Unknown Beta-hCG: Unknown TECHNIQUE: Transvaginal pelvic ultrasound was performed. COMPARISON: None FINDINGS: Single live intrauterine fetus with a gestational age by ultrasound based on crown-rump length measurement of 6 weeks and 1 day with estimated due date of 11/06/2018. heart rate 81 bpm. A yolk sac is present The uterus measures approximately 8.7 x 4.2 x 4.7 cm. The uterine cervix is closed. Both ovaries are identified and appear normal in size with the right measuring approximately 2.1 x 1.6 x 1.1 cm and the left measuring 2.7 x 2.2 x 1.2 cm. No free pelvic fluid. US/Transvaginal w/Preg US IMPRESSION: 1. Single live intrauterine fetus with a gestational age by ultrasound of 6 weeks and 1 day with estimated due date of 11/06/2018. 2. No free fluid or acute disease. at 0315 Reported and signed by: Joseph Razo MD Electronically Signed: Jsoeph Razo, at 3:14 EST Tel , Service support , CC: TAMERA Goldstein; FATIMAH Iverson Waste Water Worker: Signed CT/NG H BY PCR Collected: 03/02/2018 Status: F Source: [place] 7:50 PM [facility] REPOSITORY TYPE CODE TESTS RESULT OUT OF RANGE REFERENCE UNITS LAB L8200.2100 Negative Normal Chlam Negative Trac PCR LAB L8200.2200 Negative Normal NG by Negative PCR Performed By: #### L8200.2000 #### [facility] [address] [place], [place], [address] Observed: 03/02/2018 Status: F Source: [place] CULTURE, GENITAL 7:50 PM [facility] COMPREHENSIVE REPOSITORY Reason for Exam: vaginitis Gram Stain Score = 3 Interpretation: 0-3 Normal, 4-6 Intermediate, 7-10 Positive BV Gram Stain 1+ Epithelial cells 2+ Red Blood Cells 1+ Gram positive rods No Gram negative diplococci No Yeast Like Organisms Gent Cult Comp Normal vaginal sean isolated. No yeast, Gardnerella, Neisseria or beta-hemolytic Streptococcus isolated. Performed By: #### M100.1600 #### [facility] [address] [place], [place], [address] Observed: 03/02/2018 Status: F Source: [place] CULTURE, URINE 7:50 PM [facility] REPOSITORY Urine Culture Below infection level. ORGANISM 1: Mixed Gram Positive Organisms [place] Count 1000-10,000 Performed By: #### M100.0650 #### [facility] [address] [place], [address] EXECUTIVE OFFICER [employer] TEAM OFFICE VISIT Observed: 03/02/2018 Status: F Source: [place] REPORT 10:44 AM [facility] REPOSITORY [facility] [address] [place] [address] OFFICE VISIT Date of Service: 03/02/18 MR#: [id number] Acct: [id number] Name: NAPOLEON LOW Rep #: [id number] : 1995 Provider: FATIMAH Iverson Age/Sex: 22/F Location: [facility] Status: Signed Intake Vital Signs03/02/18 Body Mass Index (BMI) 18.1 03/02/18 Height 4 ft 11 in 03/02/18 Weight: 96 lb 4 oz 03/02/18 Body Mass Index (BMI) 19.4 03/02/18 Blood Pressure 96/64 Intake Visit Reasons: NOB LMP 01/04/18 Chief Complaint: NEW OB Scrub Nurse Required: No Is patient in pain?: No [...] additional social history: Claudio Patient works at [employer] Pre[employer] History 1 Elective abortions Hx Para [...] Pulmonary (e.g.,TB,Asthma), Seasonal allergies, Drug/latex allergies/reactions, Breast, [employer] surgery, Anesthetic complications, History of abnormal pap, [...] Status: F Source: [place] HRHPV-APTIMA 10:00 AM [facility] REPOSITORY Order Comment: CYTOLOGY INFORMATION: - CLINICAL INFORMATION: - DATE LMP/MENOPAUSE: N/A - COLLECTION VIAL: Thin Prep Vial - MULTICRAFT OPERATOR SOURCE: CERVICAL - COLLECTION TECHNIQUE: BRUSH/SPATULA Specimen Comment: [id number] Specimen Comment: Source.............Cervix Specimen Comment: No. of containers..01 ThinPrep Vial TYPE CODE TESTS RESULT OUT OF RANGE REFERENCE UNITS LAB L7400.0800 . Normal DIAGN Comment Result Comment: NEGATIVE FOR INTRAEPITHELIAL LESION AND MALIGNANCY. LAB L7400.0900 . Normal ADEQ Comment Result Comment: Satisfactory for evaluation. Endocervical and/or squamous metaplastic cells (endocervical component) are present. LAB L7400.1400 . Normal PERFORM Comment Result Comment: Pedro Lopez, Conche Operator (ASCP) LAB L7400.2575 . Normal TEST METHOD [...] no HPV testing was performed. Performed at: - [facility] [id number] Software Design Engineer: Susie Leigh MD, Phone: [phone] Performed By: #### L7400.0353 #### [facility] (refer to report for specific site) refer to report for address and phone number GROUP A STREP BY Collected: 02/21/2018 Status: F Source: [place] PCR 10:[address] [facility] REPOSITORY TYPE CODE TESTS RESULT OUT OF REFERENCE UNITS RANGE LAB GASSRC Throat Swab GAS Specimen Source LAB PCRGAS Negative for Group A Strep Group A PCR Streptococcus by PCR. Result Comment: This test was developed and its performance characteristics determined by [facility]'s [facility] (-[facility]). It has not been cleared or approved by the FDA. -[facility] is regulated under CLIA as qualified to perform high-complexity testing. This test is used for clinical purposes. It should not be regarded as inv estigational or for research. Performed By: #### GASPCR #### [facility] [address] [place], [place] [address] PROGRESS Observed: 02/21/2018 Status: COMPLETED Source: [place] 10:[address] 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 Review of Systems Constitutional: Negative. Negative for [...] by mouth. For nausea - dispensed by [facility] 02/19/18 No family history on file. [...] Discussed expected course of illness Cortney Tucker APRN.CNP CNOV Observed: 02/21/2018 Status: COMPLETED Source: [place] 10:[address] 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 Review of Systems Constitutional: Negative. Negative for [...] by mouth. For nausea - dispensed by [facility] 02/19/18 No family history on file. [...] Discussed expected course of illness Cortney Tucker APRN.CNP Treatment for Viral Upper Respiratory Tract Infections [...] help open respiratory and sinus passages 2. [place] Nasal Bowman may offer relief of nasal and head [...] Allergies) Date Reviewed: 02/21/2018 Reviewed by: Cortney ([facility]) Garrett - Fully Assessed Reason for Visit: Sore Throat [200] Headache [52] Cmt: x5 days Cough [28] Primary Visit Diagnosis:Viral URI with cough [J06.9, B97.89] Other Visit Diagnosis:Sore throat [J02.9] Order(s): vit-iron fumarate-fa ( MULTIVITAMINS) 28 mg iron- 800 mcg tabTake 1 tablet by mouth once daily.Disp: 30 tabletRfl: 0 RAPID STREP TEST B/O [2371246] Order #: [id number] GROUP A STREPTOCOCCUS BY PCR [SQGASPCR] Order #: [id number] Prescriptions as of 02/21/2018 Sig: ZOFRAN ORAL [...] Discussed expected course of illness Cortney Tucker APRN.TIRE SHOP MECHANIC Treatment for Viral Upper Respiratory Tract Infections [...] help open respiratory and sinus passages 2. [place] Nasal Bowman may offer relief of nasal and head [...] Text Cortney Tucker APRN.CNP Urgent Care [address] [facility] [address] Dept: [phone] 02/21/2018 Napoleon Nava Alba [address] [facility] [address] [facility] [address] To Whom it May Concern: This is to certify that Napoleon Low was seen at our office for medical care. Napoleon may return to work on 02/22/2018. If you have any questions please feel free to call. Sincerely: Cortney Tucker APRN.[facility] Encounter Status:Closed by CORTNEY TUCKER on 02/21/18 EMERGENCY DEPARTMENT Observed: 02/19/2018 Status: F Source: [place] SUMMARY 4:17 PM [facility] REPOSITORY [facility] Medical Records Department [address] [place] [address] Emergency Department Summary 02/19/18 1532 MR#: [id number] Acct: [id number] Name: CHRIS LOWCristino Nava Rep #: [id number] : 1995 22 From: Jesús Harvey MD PCP: Care Physician, No Primary Status: DEP ER - [...] defer that until she saw her her EXECUTIVE OFFICER [employer] TEAM. Treatment Plan: Follow up with EXECUTIVE OFFICER [employer] WARF[employer] TEAM. Dr. Petrona Francis on-call. Disposition: discharge Impression: Newly diagnosed first trimester This note was generated with Clikthrough dictation software. It may contain incorrect words, [...] your Primary Care Provider. Call [facility] ([phone]) or report to the closest Emergency Room. Call 911 if necessary. 02/19/18 6523 <Electronically signed by Jesús Harvey MD> Date Jesús Harvey MD Cosigner Signature (If Indicated): Date CC: No Primary Care Physician DISCHARGE INSTRUCTION Observed: 02/19/2018 Status: F Source: [place] 4:17 PM [facility] REPOSITORY [facility] Medical Records Department [address] [place] [address] Discharge Instruction 02/19/18 1537 MR#: [id number] Acct: [id number] Name: NAPOLEON LOW Rep #: [id number] : 1995 22 From: Jesús Harvey MD [...] and follow-up with Dr. Petrona Francis of [place] EXECUTIVE OFFICER [employer] TEAM. Zofran as needed for nausea. What to do if you have Problems For any increased pain, shortness of breath, bleeding, nausea or vomiting, chest pain, or any unexpected problems, contact your Primary Care Provider. Call [facility] ([phone]) or report to the closest Emergency Room. Call 911 if necessary. 02/19/18 1617 <Electronically signed by Jesús Harvey MD> Date Jesús Harvey MD Cosigner Signature (If Indicated): Date CC: No Primary Care Physician HCG TITER QUANT., Collected: 02/19/2018 Status: F Source: [place] SERUM 2:35 PM [facility] REPOSITORY TYPE CODE TESTS RESULT OUT OF RANGE REFERENCE UNITS LAB L700.8000 <9 non-preg mIU/mL High HCG 332 QUANT. Performed By: #### L700.8000 #### [facility] [address] [place], [address] URINALYSIS, COMPLETE Collected: 02/19/2018 Status: F Source: [place] 1:05 PM [facility] REPOSITORY Order Comment: How was Urine Obtained? FILTER TIP INSPECTOR TO SPECIFY TYPE CODE TESTS RESULT OUT [...] URINE SEEN Performed By: #### L400.0001 #### [facility] [address] [place], [place], [address] PROGRESS Observed: 01/03/2018 Status: COMPLETED Source: [place] 11:[address] [facility] REPOSITORY HNO ID: [id number] Author: Alissa Polk Service: (none) Author Type: Nurse Practitioner Type: [...] Patient agreeable to treatment plan. Alissa Polk APRN.CNP CNOV Observed: 01/03/2018 Status: COMPLETED Source: [place] 11:[address] [facility] REPOSITORY Office Visit (WSTR) NAPOLEON LOW ([id number]) 1995 F Date Time Provider Department 01/03/18 11:15 AM ALISSA POLK (CHEMICAL TREATMENT OPERATOR) [facility] During your visit today, we recorded the following information about you: Temperature Pulse Respiration Blood pressure 98.2 degrees 70/minute 16/minute 94/74 Weight 41.1 kg Alissa Polk APRN.CNP 01/03/2018 12:59 PM Signed Subjective HPI Patient [...] Patient agreeable to treatment plan. Alissa Polk APRN.TI[employer] MECHANIC Referring Provider: SELF [200] Allergies As of Date: 01/03/2018 (No Known Allergies) Date Reviewed: 01/03/2018 Reviewed by: Katherine Moreno Ma - Fully Assessed Reason for Visit: Sinus Infection,frequent/recurring [1167] Primary Visit Diagnosis:Sinobronchitis [J32.9, J40] Order(s):amoxicillin (AMOXIL) 875 mg tabletTake 1 tablet by mouth twice daily for 10 days.Disp: 20 tabletRfl: 0 Blvwvuaxbpvpdve-Hlshsfodr-MA (BROMFED DM) 2-30-10 mg/5 mL syrupTake 10 [...] by mouth twice daily for 10 days. [id number] 2* 240 * 0 01/03/2018 01/10/2018 Route: [...] 01/03/18 PROGRESS Observed: 12/19/2017 Status: COMPLETED Source: [place] 10:21 AM [facility] REPOSITORY HNO ID: [id number] Author: Isidra Cutler) Claudette Service: (none) Author Type: Physician Timber Cutter Type: Progress Notes Filed: 12/19/2017 11:50 AM [...] up here. Pt agreeable with this plan. PEPPER Gutierrez Observed: 12/19/2017 Status: COMPLETED Source: [place] 10:[address] [facility] REPOSITORY Office Visit (WSTR) NAPOLEON LOW ([id number]) 1995 F Date Time Provider Department 12/19/17 10:15 AM ISIDRA WILKINS) WSTR During your visit today, we recorded [...] EMERGENCY DEPARTMENT Observed: 06/23/2017 Status: F [facility] [address] HEALTH INFORMATION MANAGEMENT EMERGENCY DEPARTMENT : [phone] Signed Patient: NAPOLEON LOW Acct:[id number] MRUN: [id number] : 1995 Sex: F Loc: ED ADM [...] mood - Skin Skin Color: Present: Normal, [place] Skin exam: Present: warm, dry - Expanded [...] and Agreed With?: Yes - Dictation Amendments/Documentation: [employer] Document Only Electronically Generated By: LETITIA SILVA PA-C Generated Date/Time: 05/23/17 1619 Electronically Signed By: LETITIA SILVA PA-C Signed Date/Time 05/23/17 1623 Co Signed Electronically By: <Electronically signed by DANIEL HERNANDEZ DO> <Electronically signed by DANIEL HERNANDEZ DO> Co Signed Date/Time: 05/29/17 0741 05/29/17 0741 CC: АННА [place] (URINE) Collected: 05/23/2017 Status: F Source: [place] 10:29 PM [facility] REPOSITORY TYPE CODE TESTS RESULT OUT OF REFERENCE UNITS RANGE LAB UPREG(LOIN Negative C) Test Negative (urine) Performed By: #### PREGU #### [address] [id number] UA W/REFLEX CULTURE Collected: 05/23/2017 Status: F Source: [place] 10:29 PM [facility] REPOSITORY TYPE CODE TESTS RESULT OUT OF RANGE REFERENCE UNITS LAB UCOLR(LOIN Yellow C) Color aby LAB UAPP(LOINC Clear ) Appearance CLEAR LAB UGLU(LOINC Negative ) Glucose NORMAL LAB UBIL(LOINC Negative ) Abnormal Bilirubin 2+ Result Comment: ?Metabolites of etodolac or high concentration of urobilinogen may cause false positive results. Correlate clinically.? LAB UKET(LOINC) Negative Ketones NEGATIVE LAB USPG(LOINC) 1.015-1.025 Specific [place] 1.020 LAB UBLD(LOINC) Negative Blood NEGATIVE LAB UPH(LOINC) pH 5 LAB UPRO(LOINC) Negative Protein NEGATIVE LAB UURO(LOINC) Normal-1.0 mg/dL Urobilinogen NORMAL LAB UNIT(LOINC) Negative Nitrites NEGATIVE LAB ULEU(LOINC) Negative Leukocytes Esterase NEGATIVE Performed By: #### UARC #### [address] [address] INFLUENZA A B (RAPID) Collected: 05/23/2017 Status: F [facility] TYPE CODE TESTS RESULT OUT OF REFERENCE UNITS RANGE LAB FLUA1(LOIN (Negative) C) Influenza A Negative antigen LAB FLUB1(LOIN (Negative) C) Influenza B Negative antigen Performed By: #### FLUAB #### [address] [address] BILIRUBIN CONFIRMATION Collected: 05/23/2017 Status: F [facility] 10[facility] PM [facility] REPOSITORY TYPE CODE TESTS RESULT OUT OF REFERENCE UNITS RANGE LAB ICTO(LOINC Negative ) Bilirubin Confirmation Negative Performed By: #### ICTO #### [address] [id number] (44 EMERGENCY DEPARTMENT Observed: 05/09/2017 Status: F [facility] 7:07 AM [facility] EMERGENCY DEPARTMENT SUMMARY NAME NUMBER SEX AGE ADMIT DISC TYPE MED.RECORD# ALBA BENDER J [id number] F 05/06/17 05/06/17 E.R. [id number] ROOM:[facility] DATE OF :1995 PHYSICIAN NO.:[id number] PHYSICIAN NAME:LEE Concepcion M.D. PHYSICIAN:TRISTON JJ CNP [...] Kayden Concepcion MD TD: 10:05 JOB #: [id number] Electronically signed by: LEE Concepcion M.D. 05/09/17 07:05 Transcribed by: am 05/07/2017 11:58 ELECTRONICALLY SIGNED BY: LEE Concepcion M.D. 05/09/17 07:05 ALLERGIES ALLERGIES DATE TYPE / CODE NAME / CODE REACTION SEVERITY SOURCE 04/13/2018 Drug No Known Unknown [place] Allergy/510299900(S [facility] [place] [address] Repository Drug NO KNOWN [place] Class/090500972(SNO ALLERGIES [facility]) [place] Repository Miscellaneous No Known Drug Moderate Deep [place] Allergy/924278707(S Allergies (Severity [facility]) [facility] (Qualifier Repository Value) ENCOUNTERS ENCOUNTERS ADMIT/DISCHARGE ACCOUNT ADMITTING ENCOUNTER LOCATION SOURCE NUMBER CLASS 04/13/2018/04/13/19 [id number] Ambulatory BMSBuilding:Marilu Cota 19 MS.[facility] Repository 04/07/2018/04/07/19 [id number] Ambulatory [address] Repository 03/30/2018 [id number] Ambulatory BMSBuilding:Marilu Cota MS.CF.[facility] Repository 03/30/2018/03/30/19 [id number] Ambulatory [address] ing:SDCRoom: Repository AC16 03/29/2018/03/29/19 [id number] Ambulatory BMSBuilding:B Gause 19 MS.[facility] Repository 03/27/2018/03/28/19 [id number] Emergency [address] ing:ED Repository 03/26/2018/03/27/19 [id number] ANUP, Emergency Buildin[address] [place] [address] 19 UMA NARVAEZ oom: ERBed: [facility] Repository 03/26/2018/03/26/19 [id number] Emergency [address] ing:ED Repository 03/21/2018/03/21/20 [id number] Ambulatory [address] Repository 03/15/2018 [id number] Ambulatory [facility] ing:US Repository 03/02/2018 [id number] Ambulatory [facility] ing:LABSPEC Repository 03/02/2018/03/02/20 [id number] Ambulatory BMSBuilding:B Beata 18 MS.[facility] Repository 02/21/2018/02/24/20 [id number] Ambulatory [address] Repository 02/19/2018/02/20/20 [id number] Emergency [address] ing:ED Repository 01/03/2018/01/06/20 [id number] Ambulatory [address] Repository 12/19/2017/12/24/19 [id number] Ambulatory [address] Repository 05/23/2017/05/24/19 [id number] Emergency CHBuilding:ED [address] Repository 05/23/2017/05/24/19 [id number] Emergency CHBuilding:ED [address] Repository 05/06/2017/05/06/[id number] KAYDEN CONCEPCION Emergency BuildinR [facility] [address] oom: ERBed: [facility] Repository PAYERS PAYERS ENCOUNTER GUARANTOR PAYER SUBSCRIBER SOURCE 04/13/2018 NAPOLEON Nava Primary CLAUDIO Cota [id number] TR Insurance:HEALTH PLAN CALVERTDOB: [address] , [place] [address]Hdc: [place]Policy [place]: Repository [id number] (HP) Date: [place], [place] [address]HR: 04/13/2018 Secondary NOT GIVENUNK G[place] Insurance:SELF PAY [facility] Number: Effective Repository Date:2018-04-13 03/30/2018 NAPOLEON Nava Primary CLAUDIO Cota [id number] TR Insurance:HEALTH PLAN CALVERTDOB: [address] , [place] [address]Hpe: VALLEYPolicy Number: Repository [id number] (HP) Date: [place], [place] [address]AY: 03/30/2018 Secondary NOT GIVENUNK Beata Insurance:SELF PAY [facility] Number: Effective Repository Date:2018-03-30 03/30/2018 NAPOLEON Nava Primary CLAUDIO Ricardo Gause [id number] TR Insurance:HEALTH PLAN CALVERTDOB: [address] , [place] [address]Gsr: VALLEYPolicy Number: Repository [id number] (HP) Date: [place], [place] [address]LC: 03/30/2018 Secondary NOT GIVENUNK Beata Insurance:SELF PAY [facility] Number: Effective Repository Date:2018-03-29 03/29/2018 NAPOLEON Nava Primary CLAUDIO Cota [id number] TR Insurance:HEALTH PLAN CALVERTDOB: [address] , [place] [address]Eyp: VALLEYPolicy Number: Repository [id number] () Date: [place], [place] [address]JG: 03/29/2018 Secondary NOT GIVENUNK [place] Insurance:SELF PAY [facility] Number: Effective Repository Date:2018-03-29 03/27/2018 NAPOLEON Elijah Primary CLAUDIO D Beata [id number] TR Insurance:HEALTH PLAN CALVERTDOB: [address] [id number] , [place] [address]Muc: JUSTICE[place]GPolicy Number: Repository [id number] () Date: [place], [place] [address]GN: 03/27/2018 Secondary NOT GIVENUNK Be[place] Insurance:SELF PAY [facility] Number: Effective Repository Date:2018-03-27 03/26/2018 NAPOLEON Nava Primary CLAUDIO Haleigh Ochoa CALVERTDOB: Insurance:SIDNEY CALVERTDOB: [facility] [id number] [facility] [id number] [address] OUTPATIENTPolicy 4 [facility] Repository [address] [place] [address] Number: [address] [place] [address]Sxh: [id number] [place] [address] Date:Plan Name: () 03/26/2018 NAPOLEON Elijah Primary CLAUDIO Cota [id number] TR Insurance:HEALTH PLAN CALVERTDOB: [address] [id number] , [place] [address]Jod: [facility] Number: Repository [id number] () Date: [place], [place] [address]NS: 03/26/2018 Secondary NOT GIVENUNK Beata Insurance:SELF PAY [facility] Number: Effective Repository Date:2018-03-26 03/15/2018 NAPOLEON J Primary CLAUDIOANGELA Cota [id number] TR Insurance:HEALTH PLAN CALVERTDOB: [address] , [place] [address]Jkl: VALLEYPolicy Number: Repository [id number] (HP) Date: [facility], [place] [address]TO: 03/15/2018 Secondary NOT GIVENUNK G[place] Insurance:SELF PAY [facility] Number: Effective Repository Date:2018-03-02 03/02/2018 NAPOLEON Nava Primary CLAUDIO Beata [id number] TR Insurance:HEALTH PLAN CALVERTDOB: [address] , [place] [address]Nbo: VALLEYPolicy Number: Repository [id number] (HP) Date: [facility], [place] [address]TZ: 03/02/2018 Secondary NOT GIVENUNK Beata Insurance:SELF PAY [facility] Number: Effective Repository Date:2018-03-02 03/02/2018 NAPOLEON Nava Primary CLAUDIO Gause [id number] TR Insurance:HEALTH PLAN CALVERTDOB: [address] , [place] [address]Cnh: VALLEYPolicy Number: Repository [id number] (HP) Date: [place], [place] [address]VG: 03/02/2018 Secondary NOT GIVENUNK Beata Insurance:SELF PAY [facility] Number: Effective Repository Date:2018-03-02 02/19/2018 NAPOLEON Nava Primary CLAUDIO Beata [id number] TR Insurance:HEALTH PLAN CALVERTDOB: [address] , [place] [address]Afk: VALLEYPolicy Number: Repository [id number] (HP) Date: [facility], [place] [address]GC: 02/19/2018 Secondary NOT GIVENUNK Beata Insurance:SELF PAY [facility] Number: Effective Repository Date:2018-02-19 05/23/2017 [place] Primary [place] [id number] PENDINGPolicy Number: JAYLAERTDOB: [facility] [id number] [address], Date:[address] Repository [place] [address]Ysq: [address] [place] [address], [place] [address]AD: 330) [place] [address]Rth: (HP) [phone] (HP) 05/23/2017 [place] Primary Insurance:[facility] [place] PENDINGPolicy Number: CALVERTDOB: [place] [id number] [id number] [address], Date:[address] Repository [place] [address]Viy: [address] [place] [address], [place] [address]SA: (330) [place] [address]Usr: (HP) [phone] (HP)
== END ==
PROVIDERS: Visit Provider Nurse Practitioner Women's Health
DX: N89.8 Other specified noninflammatory disorders of vagina (principal); Z34.90 Encounter for supervision of normal pregnancy, unspecified, unspecified trimester
CPT/HCPCS: 87070; 87086; 87088; 87205; 87491; 87591; 87624; 88175; G0145

== ENCOUNTER → 2018-03-15 11:25 | Outpatient (CLI) | payer OTHER, SELFPAY ==
[2018-03-02 10:09] VITALS: BMI 18.1
--- NOTE | 2018-03-15 11:29 | US_ITS ---
HISTORY: GSAGestational size/ageReason for Exam-OB (US) LMP: Unknown Beta-hCG: Unknown TECHNIQUE: Transvaginal pelvic ultrasound was performed. COMPARISON: None FINDINGS: Single live intrauterine fetus with a gestational age by ultrasound based on crown-rump length measurement of 6 weeks and 1 day with estimated due date of 11/06/2018. heart rate 81 bpm. A yolk sac is present The uterus measures approximately 8.7 x 4.2 x 4.7 cm. The uterine cervix is closed. Both ovaries are identified and appear normal in size with the right measuring approximately 2.1 x 1.6 x 1.1 cm and the left measuring 2.7 x 2.2 x 1.2 cm. No free pelvic fluid. US/Transvaginal w/Preg US IMPRESSION: 1. Single live intrauterine fetus with a gestational age by ultrasound of 6 weeks and 1 day with estimated due date of 11/06/2018. 2. No free fluid or acute disease. at 0315 Reported and signed by: Joseph Razo MD Electronically Signed: Joseph Razo, at 3:14 EST Tel , Service support ,
== END ==
PROVIDERS: Referring Provider Nurse Practitioner Women's Health; Visit Provider Nurse Practitioner Women's Health
DX: Z34.90 Encounter for supervision of normal pregnancy, unspecified, unspecified trimester (principal)
CPT/HCPCS: 76817

== ENCOUNTER 2018-03-26 20:25 | Emergency (ER) | payer OTHER, SELFPAY ==
[2018-03-02 10:09] VITALS: BMI 18.1
[2018-03-26 20:26] VITALS: BP 130/76; PULSE 91; RESP 18; TEMP 37.2; O2SAT 100; BMI 19.5
--- NOTE | 2018-03-26 20:55 | ED.RN ---
PT LWBS AT 2055.
== END 2018-03-26 20:55 ==
LOC: ED 21:08
PROVIDERS: Emergency Provider Emergency Medicine
DX: O46.90 Antepartum hemorrhage, unspecified, unspecified trimester (principal); Z3A.00 Weeks of gestation of pregnancy not specified

== ENCOUNTER 2018-03-27 22:21 | Emergency (ER) | payer OTHER, SELFPAY ==
[2018-03-26 20:26] VITALS: BMI 19.5
[2018-03-27 22:22] VITALS: BP 112/76; PULSE 88; RESP 15; TEMP 36.7; BMI 19.0
[2018-03-27 22:42] LABS: Bacteria 0 SEEN /hpf (None Seen); Mucous, Urine 0 SEEN /hpf (<or=2+)
[2018-03-27 22:48] LABS: Color, Urine Straw (Yellow); Glucose, Dipstick Normal (Normal); Ketone-Dipstick Negative (Negative); Leukocyte Esterase-Dipstick Negative /ul (Negative); Nitrite-Dipstick Positive (Negative); Occult Blood-Urine 50 /ul (Negative); Protein-Dipstick Negative (Negative); Specific Gravity, Urine 1.015 (1.002-1.030); Urine Bilirubin Dipstick Negative (Negative); Urine Clarity Sl. Cloudy (Clear); Urine Urobilinogen Normal (Normal)
[2018-03-27 22:59] LABS: Amorphous Sediment 3+; Squamous Epithelial Cells - UA 0-5 SEEN /hpf (5-10)
[2018-03-27 23:00] LABS: Red Blood Cells-Urine 0-5 SEEN /hpf (0-5)
[2018-03-27 23:01] LABS: White Blood Cells 0-5 SEEN /hpf (0-5)
--- NOTE | 2018-03-27 23:35 | ED.DCSUM_ITS ---
- ER Visit Summary Date of Service: 03/27/18 Chief Complaint: Pelvic pain and vaginal bleeding History of Present Illness: The patient is a 22 F who presents with vaginal bleeding and pelvic pain that began yesterday. Patient went to [facility] yesterday and was diagnosed with a urinary tract infection. Patient states she has had 2 ultrasounds this and the is intrauterine. Patient admits to lower abdominal cramping and heavier bleeding today. Patient states yesterday she was only having bleeding intermittently. Today she states she is having some bleeding every time she goes to the bathroom. She states her bleeding is similar to her normal menstrual period. Patient does admit to some mild low back pain as well. Patient admits to some nausea but denies any vomiting. Patient has 1 para 0. Patient states her last menstrual period was 01/09/2018. Physical Examination: Vital signs are stable. Patient is afebrile. Patient is in no acute distress. Pupils are equal, round, reactive to light bilaterally. Extraocular muscles are intact. Sclera is blue. Oral mucosa is pink and moist. Neck is supple. Trachea is midline. There is no JVD noted. Heart was regular rate and rhythm. Lungs are clear and equal bilaterally. Abdomen is soft. There is some mild lower abdominal tenderness. There is no rebound or guarding noted. Cranial nerves II through XII are intact. There are no focal motor or sensory deficits noted. The remaining physical exam is within normal limits. Test Results: Urinalysis shows positive nitrates with 0-5 white blood cells, 0-5 red blood cells, and 0-5 epithelial cells. Quantitative hCG was 24,065. Blood type with a positive. Emergency Department Course and Treatment: Patient felt better on reevaluation. Patient was instructed on complete vaginal rest. Patient was instructed to drink plenty of fluids. Patient was instructed to follow-up with her DEMO EVENT SPECIALIST in 2 days for repeat evaluation. Patient understood and was agreeable with the plan. All questions were answered. Disposition: Discharge home Impression: Threatened This note was generated with [employer] dictation software. It may contain incorrect words, spelling, and punctuation that were not noted in review of the chart prior to signing ED Disposition - Plan for ED Patient: Disposition: Home or Assisted Living Chief Complaint: Vag Bld, Preg Diagnosis: Threatened spontaneous Instructions: ED Miscarriage Poss Referrals: Kathy Baca, DAVID [Primary Care Provider] - Natasha Berumen MD [STAFF PHYSICIAN] -
[2018-03-28] MEDS: 0.9% Normal Saline 1,000 ML 1000 ML IV (00:14)
[2018-03-28 00:37] VITALS: BP 104/56; PULSE 70; RESP 16; O2SAT 98
== END 2018-03-28 00:43 | disposition home or self-care (01) ==
PROVIDERS: Emergency Provider Emergency Medicine; Family Provider Nurse Practitioner Family
DX: O20.0 Threatened abortion (principal); Z3A.00 Weeks of gestation of pregnancy not specified
CPT/HCPCS: 81001; 84702; 86900; 86901; 99283; A4216

== ENCOUNTER 2018-03-30 05:52 | Day surgery (SDC) | payer OTHER, SELFPAY ==
[2018-03-29 11:20] VITALS: BMI 19.0
[2018-03-30] VITALS (9 sets, daily range): BP systolic 101–117; BP diastolic 49–79; PULSE 81–102; RESP 14–18; TEMP 36.5–37.6; O2SAT 97–100; BMI 19.4
[2018-03-30] MEDS: Doxycycline 100 MG CAPSULE PO (06:30)
[2018-03-30 06:48] LABS: Hematocrit 37.5 % (37-47); Hemoglobin 12.7 g/dl (12.0-15.0); Mean Corp Hgb Conc 33.9 g/gl (32-36); Mean Corpuscular Hgb 29.9 pg (27.0-32.0); Mean Corpuscular Volume 88.2 fL (81-99); Mean Platelet Vol. 9.8 fl (6.2-12.0); Platelet Count 266 K/mm3 (150-450); RBC Distribution Width CV 12.2 % (11.6-14.6); RBC Distribution Width SD 38.8 fl (35.1-43.9); Red Blood Count 4.25 M/mm3 (4.2-5.4); White Blood Count 6.9 K/mm3 (4.4-11.0)
[2018-03-30 06:52] LABS: Scan Indicated on CBC? Y/N NO
--- NOTE | 2018-03-30 07:30 | POC_PTH ---
PATIENT: NAPOLEON VALLES LOC: [facility] [place] U#:[id number] AGE/SX: 22/F ROOM: RE03/30/[address]: Dr. Natasha Berumen MD : [id number] BED: DIS: 03/30/2018 SPEC #: [id number] RECD: 03/30/18 09:15 STATUS: JENISE TORO #: [id number] LEIGHA: 03/30/18 07:[address]: Natasha Berumen DEPT: SURGICAL PATHOLOGY RECD BY: Timoteo Hickman ENTERED: 03/30/18 11:48 SP TYPE: PROD CONC OTHR DR: Kathy Baca, TAMERA Baca, MARRIAGE AND FAMILY THERAPIST-C Tissues: Product of conception, NOS Procedures: Surgery Specimen Level IV HEADER OPERATION: Dilation and curettage, suction PRE-OP DIAGNOSIS: Missed TISSUE SUBMITTED: Products of conception MICROSCOPIC DIAGNOSIS Products of conception: [place], gestational endometrium and immature chorionic villi (products of conception). SJ:james 03/31/18 MICROSCOPIC DESCRIPTION Slides are reviewed. GROSS DESCRIPTION Received in fixative is one container labeled with the patient's name and designated products of conception. The specimen consists of multiple irregular fragments of red-zambrano soft tissue that in aggregate measure 5 x 4.5 x 1 cm. parts are not grossly recognized. Chief Wharfinger portions are submitted in one cassette. / AM:james 03/30/18 TC:5 CPT: 08103
--- NOTE | 2018-03-30 08:04 | PCM.OPRPT ---
Problem List (1) Missed Status: Acute Report of Operation Date of Procedure: 03/30/18 Pre-Operative Diagnosis: missed Post-Operative Diagnosis: same Surgery/Procedure Performed:: mikki d and aldair Description of Surgical Findings:: 8 week uterus Type of Anesthesia:: Local MAC Special Medications: none Specimen's removed: poc Drains: none Estimated Blood Loss (mL): 150 Fluids Replaced: crystalloid Description of Procedure: Patient was taken to the operating room and placed under MAC local anesthesia. She was prepped and draped in the normal sterile fashion the dorsal lithotomy position. Bladder was drained of clear urine and anterior lip of the cervix was grasped and the uterus sounded to 9. Cervix was progressively dilated to allow passage of a 9 suction curette. Progressive passes were made removing the retained products of conception without complication. Sharp curettage confirmed complete removal of the retained products. All instruments were removed from the vagina and excellent hemostasis was noted and the patient was taken to recovery in stable condition. Grafts/Implants Used: none - Complications none - Admit VTE Documentation VTE Present on Admission: No VTE Mechan Device Prophylaxis: SCD's
--- NOTE | 2018-03-30 08:05 | DCINST_ITS ---
Discharge Diet: No Restrictions Discharge Activity: Return to Normal Activity, May Shower, May Take a Tub Bath Allergies/Adverse Reactions: Allergies No Known Allergies Allergy (Verified 03/29/18 13:27) Medications to take at Discharge Ondansetron [Zofran Odt] 4 mg PO Q4H PRN PRN #10 tab.rapdis 02/19/18 vitamin#30 30 mg iron-10 mg iron-folic acid 1 mg-omg3 capsule 1 cap PO DAILY cap 03/02/18 Cephalexin [Keflex] 500 mg PO Q12 03/27/18 Primary Care Physician: Kathy Baca, RN [Primary Care Provider] - Test Results: Test results from this visit will be discussed in further detail at your follow- up appointment, if applicable. Please Follow Up With: Natasha Berumen MD - [phone]
[2018-03-30] MEDS: FERRIC SUBSULFATE 8 GM SOLN (08:24)
[2018-03-30] MEDS: HYDROcodone Bitartrate/Apap 5/325 Tablet PO (09:35)
== END 2018-03-30 11:43 | disposition home or self-care (01) ==
LOC: SDC 05:52 → AC 05:54
PROVIDERS: Family Provider Nurse Practitioner Family; Referring Provider Obstetrics & Gynecology; Visit Provider Obstetrics & Gynecology
PROC: (CPT 59820; principal; 2018-03-30 07:15)
DX: O02.1 Missed abortion (principal); Z3A.08 8 weeks gestation of pregnancy
CPT/HCPCS: 01965; 59820; 85027; 86850; 86900; 88305; J7120; J2405

== ENCOUNTER → 2018-05-20 15:23 | Outpatient (CLI) | payer OTHER, SELFPAY ==
[2018-05-20 09:50] VITALS: BMI 19.4
== END ==
PROVIDERS: Family Provider Nurse Practitioner Family; PCP Nurse Practitioner Family; Referring Provider Nurse Practitioner Women's Health; Visit Provider Nurse Practitioner Women's Health
DX: R10.2 Pelvic and perineal pain (principal)
CPT/HCPCS: 87070; 87205

== ENCOUNTER → 2018-05-26 08:30 | Outpatient (CLI) | payer OTHER, SELFPAY ==
[2018-05-20 09:50] VITALS: BMI 19.4
--- NOTE | 2018-05-26 08:32 | US_ITS ---
STUDY: ULTRASOUND TRANSVAGINAL CLINICAL: Female, 22 years old. Mid and left-sided pelvic pain for 3 weeks. History of termination and DTC 03/30/2018. LMP 04/30/2018. TECHNIQUE: Transabdominal and transvaginal.. COMPARISON: March 15, 2018. FINDINGS: Uterus is anteverted and measures 8.2 x 4.6 x 3.4 cm. No uterine fibroids. Normal endometrial thickness measuring 7 mm. The endometrium is hyperechoic. There are no endometrial masses, and there is no fluid in the endometrial cavity. Normal uterine cervix. Right ovary measures 3.0 x 2.5 x 1.8 cm and is normal. Normal vascular flow. Left ovary measures 3.0 x 2.5 x 2.1 cm and may contain a hypoechoic nodule measuring 2.2 x 1.9 x 1.0 cm. Normal vascular flow to the left ovary. There is no free fluid in the pelvis. Bladder is decompressed. US/Transvaginal Non- IMPRESSION: Normal uterus. No free fluid in the cul-de-sac. Possible small left ovarian nodule probably representing a complex cyst. Correlate with test as warranted. Electronically Signed: Carson Silva MD at 1:47 EST , Service support ,
--- NOTE | 2018-05-26 08:32 | US_ITS ---
STUDY: ULTRASOUND TRANSVAGINAL CLINICAL: Female, 22 years old. Mid and left-sided pelvic pain for 3 weeks. History of termination and DTC 03/30/2018. LMP 04/30/2018. TECHNIQUE: Transabdominal and transvaginal.. COMPARISON: March 15, 2018. FINDINGS: Uterus is anteverted and measures 8.2 x 4.6 x 3.4 cm. No uterine fibroids. Normal endometrial thickness measuring 7 mm. The endometrium is hyperechoic. There are no endometrial masses, and there is no fluid in the endometrial cavity. Normal uterine cervix. Right ovary measures 3.0 x 2.5 x 1.8 cm and is normal. Normal vascular flow. Left ovary measures 3.0 x 2.5 x 2.1 cm and may contain a hypoechoic nodule measuring 2.2 x 1.9 x 1.0 cm. Normal vascular flow to the left ovary. There is no free fluid in the pelvis. Bladder is decompressed. US/Pelvic (Non ) IMPRESSION: Normal uterus. No free fluid in the cul-de-sac. Possible small left ovarian nodule probably representing a complex cyst. Correlate with test as warranted. Electronically Signed: Carson Silva MD at 1:47 EST , Service support ,
== END ==
PROVIDERS: Family Provider Nurse Practitioner Family; PCP Nurse Practitioner Family; Referring Provider Nurse Practitioner Women's Health; Visit Provider Nurse Practitioner Women's Health
DX: R10.2 Pelvic and perineal pain (principal)
CPT/HCPCS: 76830; 76856; 93976

== ENCOUNTER → 2018-05-29 14:16 | Outpatient (CLI) | payer OTHER, SELFPAY ==
[2018-05-29 13:16] VITALS: BMI 19.4
[2018-05-29 14:18] LABS: Mucous, Urine 0 SEEN /hpf (<or=2+); Red Blood Cells-Urine 0 SEEN /hpf (0-5); White Blood Cells 0 SEEN /hpf (0-5)
[2018-05-29 14:28] LABS: Color, Urine Yellow (Yellow); Glucose, Dipstick Normal (Normal); Ketone-Dipstick Negative (Negative); Leukocyte Esterase-Dipstick Negative /ul (Negative); Nitrite-Dipstick Negative (Negative); Occult Blood-Urine Negative /ul (Negative); Protein-Dipstick Negative (Negative); Specific Gravity, Urine 1.015 (1.002-1.030); Urine Bilirubin Dipstick Negative (Negative); Urine Clarity Sl. Cloudy (Clear); Urine Urobilinogen Normal (Normal)
[2018-05-29 14:33] LABS: Bacteria RARE /hpf (None Seen); Squamous Epithelial Cells - UA 0-5 SEEN /hpf (5-10)
== END ==
PROVIDERS: Family Provider Nurse Practitioner Family; PCP Nurse Practitioner Family; Referring Provider Physician Assistant Medical; Visit Provider Physician Assistant Medical
DX: R30.0 Dysuria (principal)
CPT/HCPCS: 81001; 87086; 87088

== ENCOUNTER 2018-05-29 18:09 | Emergency (ER) | payer OTHER, SELFPAY ==
[2018-05-29 13:16] VITALS: BMI 19.4
[2018-05-29 18:10] VITALS: BP 126/93; PULSE 79; RESP 16; TEMP 36.2; O2SAT 99; BMI 19.5
--- NOTE | 2018-05-29 19:10 | EKG12_ITS ---
Test Reason : CP Blood Pressure : / mmHG Vent. Rate : 083 BPM Atrial Rate : 083 BPM P-R Int : 130 ms QRS Dur : 084 ms QT Int : 378 ms P-R-T Axes : 059 069 054 degrees QTc Int : 444 ms Normal sinus rhythm with sinus arrhythmia Normal ECG Confirmed by ABISAI NARVAEZ, MONCHO ([id number]), news video editor BRANDT GO ([id number]) on 06/04/2018 8:55:11 AM Referred By: Confirmed By:MONCHO BARONE MD
--- NOTE | 2018-05-29 19:10 | RAD_ITS ---
STUDY: X-RAY CHEST REASON FOR EXAM: Female, 22 years old. Cough TECHNIQUE: Frontal view of the chest COMPARISON: None. FINDINGS: The lungs are clear. There are no pleural effusions. There is no pneumothorax. The heart is normal in size. The visualized osseous structures are within normal limits. RAD/Chest 1 View (Portable) IMPRESSION: No acute thoracic pathology. Electronically Signed: Jaswinder Parikh, at 19:56 EST Tel , Service support ,
--- NOTE | 2018-05-29 20:01 | ED.DCSUM_ITS ---
- ER Visit Summary Date of Service: 05/29/18 Chief Complaint: Chest pain History of Present Illness: The patient is a 22 F presenting with chest pain. Patient states this started a week ago. She has had constant chest pain. She was diagnosed with bronchitis one month ago. She states she has been coughing frequently. Today she went to urgent care and was started on amoxicillin for sinusitis. She denies shortness of breath. She had fever up to 101 at home. She had a D&C in March, no other PE/DVT risk factors. Physical Examination: Vitals are stable. Patient is afebrile. Pulse ox 99% on room air. Alert no acute distress. HEENT exam is unremarkable. Neck is supple. Lungs are clear and equal bilaterally. Right chest tender to palpation with no crepitus Heart is regular rate and rhythm. Abdomen is soft nontender nondistended. Extremities are unremarkable. Skin is warm and dry. No focal neurologic deficit. Remainder of exam is unremarkable. Emergency Department Course and Treatment: EKG is sinus rate of 83 with no acute ischemic changes. Chest x-ray shows no acute process. Troponin negative. D- dimer negative. Influenza negative. States she has Tessalon Perles at home. Advised to follow-up with her primary care physician. Advised return to ED if worsening complaints. Disposition: Discharge home Impression: Chest wall pain, bronchitis This note was generated with Suja Juice dictation software. It may contain incorrect words, spelling, and punctuation that were not noted in review of the chart prior to signing ED Disposition - Plan for ED Patient: Referrals: Kathy Baca, FATIMAH-C [Primary Care Provider] -
[2018-05-29 20:09] VITALS: BP 118/82; PULSE 82; RESP 15; O2SAT 95
[2018-05-29 20:30] LABS: D-Dimer Quantitative (DVT/PE) 0.39 FEU/ug/m (0.27-0.49)
--- NOTE | 2018-05-29 21:56 | ED.DEP ---
ED Disposition - Plan for ED Patient: Instructions: ED Chest Pain Atypical Unkn Cause Referrals: Kathy Baca, ONCOLOGY PHARMACIST-C [Primary Care Provider] -
--- NOTE | 2018-05-29 21:57 | DCINST.ED_ITS ---
ED Disposition - Plan for ED Patient: Instructions: ED Chest Pain Atypical Unkn Cause Referrals: Kathy Baca, HYDRAULIC OIL TOOL OPERATOR-C [Primary Care Provider] -
[2018-05-29 22:03] VITALS: PULSE 74; RESP 15; O2SAT 97
== END 2018-05-29 22:04 | disposition home or self-care (01) ==
LOC: ED 19:10
PROVIDERS: Emergency Provider Emergency Medicine; Family Provider Nurse Practitioner Family; PCP Nurse Practitioner Family
DX: R07.89 Other chest pain (principal); J40 Bronchitis, not specified as acute or chronic; J32.9 Chronic sinusitis, unspecified; Q78.0 Osteogenesis imperfecta
CPT/HCPCS: 71045; 84484; 85379; 87804; 93005; 99284; A4216

== ENCOUNTER 2018-07-28 20:08 | Emergency (ER) | payer OTHER, SELFPAY ==
[2018-06-12 10:15] VITALS: BMI 19.5
[2018-07-28 20:11] VITALS: BP 113/82; PULSE 85; RESP 18; TEMP 37.2; O2SAT 97; BMI 19.9
--- NOTE | 2018-07-28 21:20 | US_ITS ---
STUDY: FIRST TRIMESTER OBSTETRICAL ULTRASOUND REASON FOR EXAM: Female, 23 years old. Right lower quadrant pelvic pain and nausea x2 days LMP: 05/26/2018 TECHNIQUE: Transvaginal TECHNICAL QUALITY: Adequate. PRIOR ULTRASOUND: Prior study of 03/15/2018 FINDINGS: There is visualization of a single gestational sac in a normal intrauterine position. The mean sac diameter (MSD) measures 3.8 cm, indicating an estimated gestational age (EGA) of 9 weeks, 3 days. The gestational sac shape is within normal limits. There is a visualized yolk sac. The yolk sac measures 2.9 mm. The placenta is non-visualized. There is visualization of a live embryo. The crown-rump length (CRL) measures 1.55 cm, indicating an estimated gestational age (EGA) of 8 weeks, 0 days. There is demonstrated cardiac activity with a heart rate of 151 bpm. The estimated gestation age (EGA) by LMP is 9 weeks, 0 days. The estimated date of delivery (BUCKY) by LMP is 03/02/2019. The estimated gestation age (EGA) by US is 8 weeks, 5 days. The estimated date of delivery (BUCKY) by US is 03/04/2019. The uterus measures 10.0 x 6.9 x 5.0 cm. There is no demonstrated uterine fibroid. The cervix is closed. The right ovary measures 1.9 x 1.4 x 1.0 cm. There is no right ovarian cyst. There is no visualized right adnexal mass or complex lesion. Right ovarian blood flow is noted. The left ovary measures 2.3 x 1.7 x 1.8 cm. There is no left ovarian cyst. There is no visualized left adnexal mass or complex lesion. Left ovarian blood flow is noted. There is no fluid in the cul de sac. US/Transvaginal w/Preg US IMPRESSION: Single viable intrauterine of approximately 8 weeks 5 days gestational age by current ultrasonographic measurement. A heart rate of 151 bpm is noted. Electronically Signed: Jean Pierre De Jesus MD at 22:51 EDT , Service support ,
[2018-07-28] MEDS: 0.9% Normal Saline 1,000 ML 1000 ML IV (21:27)
[2018-07-28] MEDS: Ondansetron 4 MG/2 ML Vial IV (21:29)
[2018-07-28 21:33] LABS: Mucous, Urine 0 SEEN /hpf (<or=2+); Red Blood Cells-Urine 0 SEEN /hpf (0-5)
--- NOTE | 2018-07-28 21:42 | ED.VISSUMM ---
- ER Visit Summary Date of Service: 07/28/18 Chief Complaint: Abdominal pain, nausea, vomiting History of Present Illness: The patient is a 23 F presenting with abdominal pain, nausea, vomiting. Patient states that this started 2 days ago. She had a home test that was positive. She has had 2 episodes of vomiting today. She is G2, P0 Ab1. She had a miscarriage in March. She has her first OB appointment with Dr. Viraj Bucio at the end of this month. She denies vaginal bleeding. Denies diarrhea. Denies fever. Denies other complaints. Physical Examination: Vitals are stable. Patient is afebrile. Alert no acute distress. HEENT exam is unremarkable. Neck is supple. Lungs are clear and equal bilaterally. Heart is regular rate and rhythm. Abdomen is soft mild bilateral lower quadrant tenderness with no guarding or rebound Extremities are unremarkable. Skin is warm and dry. Remainder of exam is unremarkable. Emergency Department Course and Treatment: Patient given IV fluids, Zofran. Urinalysis shows 0-5 white cells, 0 red cells, 5-10 epithelial cells. Blood type A positive. hCG quant over 200,000. Pelvic ultrasound shows single viable intrauterine of approximately 8 weeks 5 days gestational age by current ultrasonographic measurement. A heart rate of 151 bpm is noted. On reevaluation, patient is feeling improved. Abdomen is soft and nontender. She is advised signs and symptoms for which to return to the ED. She is advised to follow-up with her COMPRESSED GAS TESTER. Advised return to ED for worsening complaints. Disposition: Discharge home Impression: Vomiting, This note was generated with Ybrain dictation software. It may contain incorrect words, spelling, and punctuation that were not noted in review of the chart prior to signing ED Disposition - Plan for ED Patient: Referrals: Kathy Baca, FATIMAH-C [Primary Care Provider] -
[2018-07-28 21:47] LABS: Color, Urine Yellow (Yellow); Glucose, Dipstick Normal (Normal); Ketone-Dipstick Negative (Negative); Leukocyte Esterase-Dipstick Negative /ul (Negative); Nitrite-Dipstick Negative (Negative); Occult Blood-Urine Negative /ul (Negative); Protein-Dipstick Negative (Negative); Specific Gravity, Urine 1.025 (1.002-1.030); Urine Bilirubin Dipstick Negative (Negative); Urine Clarity Clear (Clear); Urine Urobilinogen Normal (Normal)
[2018-07-28 21:55] LABS: Squamous Epithelial Cells - UA 5-10 SEEN /hpf (5-10); White Blood Cells 0-5 SEEN /hpf (0-5)
[2018-07-28 21:56] LABS: Bacteria RARE /hpf (None Seen); Calcium Oxalate Crystals Ur 3+ /hpf (<or=2+)
[2018-07-28 22:43] VITALS: BP 103/70; PULSE 78; RESP 16; O2SAT 100
[2018-07-28 23:37] LABS: hCG Titer Quant., Serum > 200000 mIU/mL (1-3)
--- NOTE | 2018-07-29 00:09 | ED.DEP ---
ED Disposition - Plan for ED Patient: Instructions: Care for a Healthy Baby Referrals: Kathy Baca, FATIMAH-C [Primary Care Provider] - Natasha Berumen MD [STAFF PHYSICIAN] -
[2018-07-29 00:18] VITALS: BP 106/69; PULSE 68; O2SAT 98
== END 2018-07-29 00:19 | disposition home or self-care (01) ==
PROVIDERS: Emergency Provider Emergency Medicine; Family Provider Nurse Practitioner Family; PCP Nurse Practitioner Family
DX: O21.9 Vomiting of pregnancy, unspecified (principal); Z3A.08 8 weeks gestation of pregnancy
CPT/HCPCS: 76817; 81001; 84702; 86900; 96361; 96374; 99284; J7030; A4216; J2405

== ENCOUNTER → 2018-08-09 13:41 | Outpatient (CLI) | payer OTHER, SELFPAY ==
[2018-08-09 08:20] VITALS: BMI 19.9
[2018-08-09 16:30] LABS: Chlamydia Trachomatis by PCR Negative (Negative); Neisserai gonorrhoeae by PCR Negative (Negative); Probe Check PASS; Sample Adequacy Control PASS; Specimen Processing Control PASS
== END ==
PROVIDERS: Family Provider Nurse Practitioner Family; PCP Nurse Practitioner Family; Referring Provider Obstetrics & Gynecology; Visit Provider Obstetrics & Gynecology
DX: N89.8 Other specified noninflammatory disorders of vagina (principal)
CPT/HCPCS: 87070; 87086; 87088; 87205; 87491; 87591

== ENCOUNTER → 2018-08-18 15:45 | Outpatient (CLI) | payer OTHER, SELFPAY ==
[2018-08-09 08:20] VITALS: BMI 19.9
[2018-08-18 16:31] LABS: Absolute Lymphocyte Count 1.46 X10^3/ul (0.83-4.51); Absolute Neutrophil Count 7.8 X10^3/uL (2.0-7.7); Basophil# 0.03 X10^3/uL; Basophil% 0.3 % (0-1); Eosinophil# 0.07 X10^3/uL; Eosinophils% 0.7 % (0-5); Hematocrit 37.2 % (37-47); Hemoglobin 12.9 g/dl (12.0-15.0); Lymphocyte # 1.46 X10^3/ul (4.0); Lymphocyte % 14.3 % (19-41); Mean Corp Hgb Conc 34.7 g/gl (32-36); Mean Corpuscular Volume 86.5 fL (81-99); Mean Platelet Vol. 10.2 fl (6.2-12.0); Monocyte# 0.79 X10^3/uL; Monocyte% 7.7 % (0-10); Neutrophil # 7.83 X10^3/uL (2.7-7.7); Neutrophil % 76.8 % (47-70); Platelet Count 294 K/mm3 (150-450); RBC Distribution Width CV 12.4 % (11.6-14.6); RBC Distribution Width SD 38.2 fl (35.1-43.9); White Blood Count 10.2 K/mm3 (4.4-11.0)
[2018-08-18 16:32] LABS: POSITIVE COUNT NO; POSITIVE DIFFERENTIAL NO; POSITIVE MORPHOLOGY NO
[2018-08-18 17:43] LABS: HIV - WCH Non-Reactive (Nonreactive); Rubella IgG 32.7 IU/mL
[2018-08-20 01:45] LABS: Rapid Plasmin Reagin (RPR) NONREACTIVE (NONREACTIVE)
[2018-08-20 12:24] LABS: HEPATITIS B SURFACE AG Negative (Negative)
== END ==
PROVIDERS: Obstetrics & Gynecology; Family Provider Nurse Practitioner Family; PCP Nurse Practitioner Family; Referring Provider Nurse Practitioner Women's Health; Visit Provider Nurse Practitioner Women's Health
DX: Z34.81 Encounter for supervision of other normal pregnancy, first trimester (principal)
CPT/HCPCS: 36415; 85025; 86592; 86703; 86762; 86850; 86900; 87340

== ENCOUNTER 2018-09-11 18:34 | Emergency (ER) | payer OTHER, SELFPAY ==
[2018-09-08 15:34] VITALS: BMI 19.9
[2018-09-11 18:35] VITALS: BP 133/91; PULSE 76; RESP 14; TEMP 36.8; O2SAT 100; BMI 19.9
--- NOTE | 2018-09-11 19:12 | ED.VISSUMM ---
- ER Visit Summary Date of Service: 09/11/18 Chief Complaint: Headache, nausea, vomiting, abdominal cramping, 15 weeks gestation History of Present Illness: The patient is a 23 F who is G2, P0 Ab1 presents with a headache. It started yesterday. Is a throbbing throughout her entire head. Nothing makes it better or worse. She tried Tylenol without any relief. She does have a history of migraine headaches. She has felt nauseous and has vomited. She has diffuse abdominal cramping. Denies any urinary symptoms. She is 15 weeks gestation. She has had an ultrasound that showed an IUP. Denies any vaginal bleeding or vaginal discharge Physical Examination: Vital signs reviewed. HEENT exam unremarkable. Heart is regular rate and rhythm without murmurs. Lungs are clear to auscultation. Abdomen is soft and nontender. Abdomen is gravid appropriate to dates. Extremities reveal no edema. Skin exam normal. Neurologic exam normal. Test Results: Bedside ultrasound performed by myself reveals an active fetus with a heart rate of 160. Urinalysis has no bacteria, infection or blood Emergency Department Course and Treatment: The patient was given Reglan, Benadryl and IV fluids. She feels much better. Patient will be discharged use Tylenol for headaches. She will call her TELETYPEWRITER OPERATOR for follow-up Treatment Plan: [] Disposition: Discharge Impression: Migraine headaches, second trimester , abdominal cramping This note was generated with [employer] dictation software. It may contain incorrect words, spelling, and punctuation that were not noted in review of the chart prior to signing ED Disposition - Plan for ED Patient: Referrals: Kathy Baca, FATIMAH-C [Primary Care Provider] -
[2018-09-11] MEDS: DiphenhydrAMINE 50 MG/ML Syringe 25 MG IV (19:20)
[2018-09-11] MEDS: 0.9% Normal Saline 1,000 ML 999 ML IV (19:21)
[2018-09-11] MEDS: Metoclopramide 10 MG/2 ML Vial IV (19:21)
[2018-09-11 19:22] LABS: Bacteria 0 SEEN /hpf (None Seen); Mucous, Urine 0 SEEN /hpf (<or=2+); Red Blood Cells-Urine 0 SEEN /hpf (0-5)
[2018-09-11 19:26] LABS: Color, Urine Yellow (Yellow); Glucose, Dipstick Normal (Normal); Ketone-Dipstick 15 mg/dl (Negative); Leukocyte Esterase-Dipstick Negative /ul (Negative); Nitrite-Dipstick Negative (Negative); Occult Blood-Urine Negative /ul (Negative); Protein-Dipstick Negative (Negative); Urine Bilirubin Dipstick Negative (Negative); Urine Clarity Cloudy (Clear); Urine Urobilinogen Normal (Normal)
[2018-09-11 19:30] LABS: Amorphous Sediment 3+; Squamous Epithelial Cells - UA 0-5 SEEN /hpf (5-10)
[2018-09-11 19:31] LABS: Coarse Granular Cast 0-5 SEEN /lpf (0-5 /lpf); Hyaline Cast 0-5 SEEN /lpf (0-5)
[2018-09-11 19:35] LABS: White Blood Cells 0-5 SEEN /hpf (0-5)
--- NOTE | 2018-09-11 20:04 | ED.DEP ---
ED Disposition - Plan for ED Patient: Disposition: Home or Assisted Living Instructions: HEADACHE, Migraine (Classical) Referrals: Kathy Baca NP-C [Primary Care Provider] -
[2018-09-11 20:09] VITALS: BP 121/76; PULSE 79; RESP 14; O2SAT 97
== END 2018-09-11 20:11 | disposition home or self-care (01) ==
PROVIDERS: Emergency Provider Emergency Medicine; Family Provider Nurse Practitioner Family; PCP Nurse Practitioner Family
DX: O99.352 Diseases of the nervous system complicating pregnancy, second trimester (principal); G43.909 Migraine, unspecified, not intractable, without status migrainosus; Z3A.15 15 weeks gestation of pregnancy; O21.9 Vomiting of pregnancy, unspecified; R10.9 Unspecified abdominal pain
CPT/HCPCS: 81001; 96361; 96374; 96375; 99283; A4216

== ENCOUNTER → 2018-09-14 13:52 | Outpatient (CLI) | payer OTHER, SELFPAY ==
[2018-09-11 18:35] VITALS: BMI 19.9
[2018-09-14] MEDS: Dextrose 5%-Lactated Ringers 1,000 ML 999 ML IV (14:16)
[2018-09-14] MEDS: Ondansetron 4 MG/2 ML Vial IV (14:23)
[2018-09-14 14:27] VITALS: BP 116/59; PULSE 92; RESP 16; TEMP 37; O2SAT 100
== END ==
LOC: MEDOUTP 13:54
PROVIDERS: Family Provider Nurse Practitioner Family; PCP Nurse Practitioner Family; Referring Provider Obstetrics & Gynecology; Visit Provider Obstetrics & Gynecology
DX: E86.0 Dehydration (principal)
CPT/HCPCS: 96361; 96374; 96375; A4216; J2405

== ENCOUNTER 2018-11-06 17:25 | Outpatient (CLI) | payer OTHER, SELFPAY ==
[2018-11-06 18:06] VITALS: BMI 22.1
[2018-11-06 18:40] LABS: ROM Internal Control Test YES-OK TO RESULT pt. (Internal QC); ROM Patient Test Negative (Negative)
[2018-11-06 19:07] LABS: Bacteria 0 SEEN /hpf (None Seen); Mucous, Urine 0 SEEN /hpf (<or=2+); Red Blood Cells-Urine 0 SEEN /hpf (0-5)
[2018-11-06 19:08] LABS: Color, Urine Yellow (Yellow); Glucose, Dipstick Normal (Normal); Leukocyte Esterase-Dipstick Negative /ul (Negative); Nitrite-Dipstick Negative (Negative); Occult Blood-Urine Negative /ul (Negative); Protein-Dipstick Negative (Negative); Specific Gravity, Urine 1.015 (1.002-1.030); Urine Bilirubin Dipstick Negative (Negative); Urine Clarity Clear (Clear); Urine Urobilinogen Normal (Normal)
[2018-11-06 19:09] LABS: Ketone-Dipstick 150 mg/dl (Negative)
[2018-11-06 19:17] LABS: Squamous Epithelial Cells - UA 0-5 SEEN /hpf (5-10); White Blood Cells 0-5 SEEN /hpf (0-5)
--- NOTE | 2018-11-09 04:55 | OB.TRI.PN_ITS ---
Progress Notes Date of Service: 11/06/18 Progress Note: She was evaluated for abdominal pain and negative rupture membranes. heart tones present and reassuring no contractions. Abdominal pain likely musculoskeletal in origin and reassuring status DC home Laboratory Studies: Laboratory Tests 11/06/18 11/06/18 11/06/18 Range/Units 19:00 18:05 18:05 Urine Color Yellow Cancelled Urine Clarity Clear Cancelled Urine pH 6.0 Cancelled Ur Specific [place] 1.015 Cancelled U Specif Grav (Refrac) Cancelled Urine Protein Negative Cancelled Urine Glucose (UA) Normal Cancelled Urine Ketones 150 H Cancelled Urine Occult Blood Negative Cancelled Urine Nitrite Negative Cancelled Urine Bilirubin Negative Cancelled Urine Urobilinogen Normal Cancelled Ur Leukocyte Esterase Negative Cancelled Urine RBC 0 SEEN Cancelled Urine WBC 0-5 SEEN Cancelled Ur Squamous Epith Cells 0-5 SEEN Cancelled Ur Transition Epith Cell Cancelled Ur Renal Epithelial Cell Cancelled Calcium Oxalate Crystal Cancelled Uric Acid Crystals Cancelled Triple Phos Crystals Cancelled Other Crystals Cancelled Amorphous Sediment Cancelled Urine Bacteria 0 SEEN Cancelled Hyaline Casts Cancelled Fine Granular Casts Cancelled Coarse Granular Casts Cancelled Waxy Casts Cancelled RBC Casts Cancelled WBC Casts Cancelled Urine Mucus 0 SEEN Cancelled Urine Trichomonas Cancelled Urine Yeast Cancelled Vag Amniotic Fld Detect Negative (Negative) - Problem List (1) Abdominal pain affecting Status: Acute Multi Select Codes - Urinary/Genital Urinary/Genital CPT Codes: Other Procedure See Report - no charge
== END 2018-11-06 19:42 | disposition home or self-care (01) ==
LOC: WPOUT 17:35 → OBT 17:36 → WP 11-09 08:42
PROVIDERS: Family Provider Nurse Practitioner Family; PCP Nurse Practitioner Family; Referring Provider Obstetrics & Gynecology; Visit Provider Obstetrics & Gynecology
DX: O26.899 Other specified pregnancy related conditions, unspecified trimester (principal); R10.9 Unspecified abdominal pain; Z3A.00 Weeks of gestation of pregnancy not specified
CPT/HCPCS: 59050; 81001; 84112; 99218; G0378

== ENCOUNTER 2018-11-20 21:53 | Emergency (ER) | payer SELFPAY ==
[2018-11-19 10:21] VITALS: BMI 22.1
[2018-11-20 21:53] VITALS: BP 129/76; PULSE 102; RESP 16; TEMP 36.6; O2SAT 97; BMI 23.8
--- NOTE | 2018-11-20 22:38 | ED.DCSUM_ITS ---
History of Present Illness Chief Complaint: Dental Informant: Patient Onset: Days Context: Gradual Onset Current Severity: Moderate Maximum Severity: Moderate Narrative: Patient presents to the emergency department with rightt upper jaw dental pain. States over the past 2 or 3 days, she is had pain in her upper molars. She is also complained of some mild swelling in her cheek. She did see a dentist a few months ago. She denies any injury. She denies any fevers or chills. She denies any trouble speaking or swallowing. She had no difficulty with this . Prior similar symptoms: No Recent Illness/Hospitalization: No Past Medical History - Allergies and Home Meds Allergies/Adverse Reactions: Allergies No Known Allergies Allergy (Verified 11/20/18 21:55) Primary Care Physician: Kathy Baca NP-C [Primary Care Provider] - Prior records reviewed: Yes Past Medical History: None Smoking Status: Never smoker Alcohol: None Drugs: None Review of Systems General: Denies: Chills, Fever, Sweats Eyes: Denies: Visual changes - bilaterally, Diplopia ENT: Denies: Rhinorrhea, Sore throat Cardiovascular: Denies: Chest pain, Palpitations Respiratory: Denies: Dyspnea, Cough, Dyspnea on exertion Gastrointestinal: Denies: Abdominal pain, Nausea, Vomiting, Diarrhea, Melena, Hematochezia Genitourinary: Denies: Dysuria, Hematuria, Frequency Musculoskeletal: Denies: Back pain, Extremity Pain Skin: Denies: Rash, Wounds Neurological: Denies: Headache, Weakness, Numbness Physical Exam Vital Signs/Narrative: Vital Signs Temp Pulse Resp BP Pulse Ox 11/20/18 21:53 98 F 102 H 16 129/76 H 97 Inital Vital Signs reviewed: Yes General: Well nourished, Well developed, No Acute Distress Head: Normocephalic, Atraumatic Eyes: Perrl, EOMI ENT: Moist mucous membranes, No rhinorrhea Neck: Supple, Nontender Cardiovascular: Regular rate, Regular rhythm, No murmurs Respiratory: No distress, CTA bilaterally, Chest nontender Abdomen: Soft, Nontender, Nondistended, Normal bowel sounds Back: Nontender, Normal Inspection Extremities: Nontender, No edema Skin: Normal color, No rash Neurological: Alert, Oriented x3, Cranial nerves II-XII grossly intact, Normal Strength, Normal Sensation Psychological: Normal affect, Normal Mood Diagnostic/Tx/Re-eval - Medical Decision Making The patient's oropharynx is widely patent. There is no evidence of Bradley angina. She does have an early cavity of tooth #3. There is mild inflammation of the gumline. There is no focal abscess. The submental space is soft. There is no trismus or stridor. The patient will be started on penicillin. She is given strict return precautions. She will be given outpatient dentistry follow- up. She will be discharged home. Impression 1. Periapical abscess tooth #3 ED Disposition - Plan for ED Patient: Instructions: Dental Abscess Prescriptions: Penicillin V Potassium 500 mg PO 4X/DAY #40 tab Prescription Printed Referrals: Kathy Baca, LIVING SKILLS ADVISOR-C [Primary Care Provider] -
[2018-11-20 22:46] VITALS: PULSE 84; RESP 16; O2SAT 99
[2018-11-20] MEDS: Penicillin Vk 250 MG Tablet 500 MG PO (22:46)
== END 2018-11-20 22:47 | disposition home or self-care (01) ==
LOC: ED 22:10
PROVIDERS: Emergency Provider Emergency Medicine; Family Provider Nurse Practitioner Family; PCP Nurse Practitioner Family
DX: K04.7 Periapical abscess without sinus (principal)
CPT/HCPCS: 99283

== ENCOUNTER → 2018-11-29 11:58 | Outpatient (CLI) | payer SELFPAY ==
[2018-11-29 10:45] VITALS: BMI 23.8
== END ==
PROVIDERS: Family Provider Nurse Practitioner Family; PCP Nurse Practitioner Family; Referring Provider Obstetrics & Gynecology; Visit Provider Obstetrics & Gynecology
DX: N39.0 Urinary tract infection, site not specified (principal)
CPT/HCPCS: 87086; 87088

== ENCOUNTER → 2018-12-14 16:38 | Outpatient (CLI) | payer OTHER, SELFPAY ==
[2018-12-14 16:21] VITALS: BMI 23.8
[2018-12-14 17:29] LABS: Absolute Lymphocyte Count 1.41 X10^3/uL (0.83-4.51); Absolute Neutrophil Count 7.1 X10^3/uL (2.0-7.7); Basophil# 0.05 X10^3/uL; Basophil% 0.5 % (0-1); Eosinophil# 0.11 X10^3/uL; Eosinophils% 1.1 % (0-5); Hematocrit 33.1 % (37-47); Hemoglobin 11.1 g/dL (12.0-15.0); Lymphocyte # 1.41 X10^3/ul (4.0); Lymphocyte % 14.6 % (19-41); Mean Corp Hgb Conc 33.5 g/dL (32-36); Mean Corpuscular Hgb 31.9 pg (27.0-32.0); Mean Corpuscular Volume 95.1 fL (81-99); Mean Platelet Vol. 9.5 fl (6.2-12.0); Monocyte# 0.76 X10^3/uL; Monocyte% 7.9 % (0-10); NRBC Flagged by Analyzer 0 % (0-5); Neutrophil # 7.06 X10^3/uL (2.7-7.7); Neutrophil % 73.3 % (47-70); Platelet Count 257 K/mm3 (150-450); RBC Distribution Width CV 13.6 % (11.6-14.6); RBC Distribution Width SD 46.8 fl (35.1-43.9); Red Blood Count 3.48 M/mm3 (4.2-5.4); White Blood Count 9.6 K/mm3 (4.4-11.0)
[2018-12-14 18:06] LABS: Glucose Challenge Gest 1H 50g 130 mg/dL (70-140)
== END ==
PROVIDERS: Family Provider Nurse Practitioner Family; PCP Nurse Practitioner Family; Referring Provider Obstetrics & Gynecology; Visit Provider Obstetrics & Gynecology
DX: Z34.92 Encounter for supervision of normal pregnancy, unspecified, second trimester (principal); Z3A.28 28 weeks gestation of pregnancy
CPT/HCPCS: 82950; 85025

== ENCOUNTER 2018-12-19 09:20 | Outpatient (CLI) | payer OTHER, SELFPAY ==
[2018-12-14 16:21] VITALS: BMI 23.8
[2018-12-19 10:16] VITALS: BMI 24.2
[2018-12-19 10:40] LABS: Fetal Fibronectin Negative
[2018-12-19 10:56] LABS: Mean Corp Hgb Conc 34.4 g/dL (32-36); Mean Corpuscular Hgb 32.2 pg (27.0-32.0); Mean Corpuscular Volume 93.6 fL (81-99); Mean Platelet Vol. 9.9 fl (6.2-12.0); Platelet Count 235 K/mm3 (150-450); RBC Distribution Width CV 13.7 % (11.6-14.6); RBC Distribution Width SD 46.7 fl (35.1-43.9); Red Blood Count 3.42 M/mm3 (4.2-5.4); White Blood Count 8.9 K/mm3 (4.4-11.0)
[2018-12-19] MEDS: Dextrose 5%-Lactated Ringers 1,000 ML 100 ML IV (10:58)
[2018-12-19 11:09] LABS: Mucous, Urine 0 SEEN /hpf (<or=2+); Red Blood Cells-Urine 0 SEEN /hpf (0-5)
[2018-12-19 11:11] LABS: Color, Urine Yellow (Yellow); Glucose, Dipstick Normal (Normal); Ketone-Dipstick Negative (Negative); Leukocyte Esterase-Dipstick 25 /ul (Negative); Nitrite-Dipstick Negative (Negative); Occult Blood-Urine Negative /ul (Negative); Protein-Dipstick Negative (Negative); Specific Gravity, Urine 1.015 (1.002-1.030); Urine Bilirubin Dipstick Negative (Negative); Urine Clarity Sl. Cloudy (Clear); Urine Urobilinogen Normal (Normal)
[2018-12-19] MEDS: Acetaminophen 500 MG Tablet 1000 MG PO (11:13)
[2018-12-19 11:23] LABS: Bacteria 1+ /hpf (None Seen); Squamous Epithelial Cells - UA 0-5 SEEN /hpf (5-10); White Blood Cells 0-5 SEEN /hpf (0-5)
--- NOTE | 2018-12-19 13:28 | NURSING ---
lab results reviewed with the pt and . iv site dc'd. pt discharged to home
--- NOTE | 2018-12-20 18:43 | OB.TRI.PN ---
Progress Notes Date of Service: 12/19/18 Progress Note: Patient presents for triage evaluation secondary to abdominal pain and cramping FHT: 150 Moderate variability appropriate for gestational age 10 x 10 accelerations no decelerations category I tracing [place]: Isolated contractions Assessment and plan: Threatened labor reactive NST, reassuring maternal and status patient discharged to home to follow-up as scheduled good fibronectin no cervical change cervix closed. See problem list details for additional plan information. Laboratory Studies: Laboratory Tests 12/19/18 12/19/18 12/19/18 Range/Units 11:00 10:45 09:50 WBC 8.9 (4.4-11.0) K/mm3 RBC 3.42 L (4.2-5.4) M/mm3 Hgb 11.0 L (12.0-15.0) g/dL Hct 32.0 L (37-47) % MCV 93.6 (81-99) fL MCH 32.2 H (27.0-32.0) pg MCHC 34.4 (32-36) g/dL RDW Std Deviation 46.7 H (35.1-43.9) fl RDW Coeff of Sharmin 13.7 (11.6-14.6) % Plt Count 235 (150-450) K/mm3 MPV 9.9 (6.2-12.0) fl Urine Color Yellow (Yellow) Urine Clarity Sl. Cloudy (Clear) Urine pH 7.0 (5.0 - 8.0) Ur Specific [place] 1.015 (1.002-1.030) Urine Protein Negative (Negative) mg/dl Urine Glucose (UA) Normal (Normal) mg/dl Urine Ketones Negative (Negative) mg/dl Urine Occult Blood Negative (Negative) /ul Urine Nitrite Negative (Negative) Urine Bilirubin Negative (Negative) mg/dL Urine Urobilinogen Normal (Normal) mg/dl Ur Leukocyte Esterase 25 H (Negative) /ul Urine RBC 0 SEEN (0-5) /hpf Urine WBC 0-5 SEEN (0-5) /hpf Ur Squamous Epith Cells 0-5 SEEN (5-10) /hpf Urine Bacteria 1+ (None Seen) /hpf Urine Mucus 0 SEEN (<or=2+) /hpf Fibronectin Negative Multi Select Codes - Urinary/Genital Urinary/Genital CPT Codes: Other Procedure See Report - no charge
== END 2018-12-19 13:20 | disposition home or self-care (01) ==
LOC: WP 09:26 → WPOUT 09:26
PROVIDERS: Family Provider Nurse Practitioner Family; PCP Nurse Practitioner Family; Visit Provider Obstetrics & Gynecology
DX: O60.00 Preterm labor without delivery, unspecified trimester (principal); Z3A.00 Weeks of gestation of pregnancy not specified
CPT/HCPCS: 36415; 59025; 59050; 81001; 82731; 85027; 87086; 87088; 99218; A4216; G0378

== ENCOUNTER → 2018-12-22 16:22 | Outpatient (CLI) | payer OTHER, SELFPAY ==
[2018-12-19 10:16] VITALS: BMI 24.2
[2018-12-24 12:45] LABS: Complement C3 171 mg/dL (82-167)
== END ==
PROVIDERS: Family Provider Nurse Practitioner Family; PCP Nurse Practitioner Family
DX: R76.8 Other specified abnormal immunological findings in serum (principal)
CPT/HCPCS: 36415; 86160

== ENCOUNTER 2018-12-23 13:26 | Outpatient (CLI) | payer OTHER, SELFPAY ==
[2018-12-23 13:45] VITALS: BMI 25.0
--- NOTE | 2018-12-23 15:34 | OB.TRI.PN ---
Progress Notes Date of Service: 12/23/18 Progress Note: Patient presents for triage evaluation secondary to decreased movement FHT: 140 Moderate variability reactive appropriate for gestational age no decelerations category I tracing [place]: no regular Contractions Assessment and plan: Decreased movement reactive NST, reassuring maternal and status patient discharged to home to follow-up as scheduled. See problem list details for additional plan information. - Problem List (1) Decreased movement Status: Acute Comment: 12/23 reactive NST Multi Select Codes - Urinary/Genital Urinary/Genital CPT Codes: 45433-81 non-stress test Interp
== END 2018-12-23 15:43 | disposition home or self-care (01) ==
LOC: WPOUT 13:33 → WP 13:34
PROVIDERS: Family Provider Nurse Practitioner Family; PCP Nurse Practitioner Family; Referring Provider Obstetrics & Gynecology; Visit Provider Obstetrics & Gynecology
DX: O36.8190 Decreased fetal movements, unspecified trimester, not applicable or unspecified (principal); Z3A.00 Weeks of gestation of pregnancy not specified
CPT/HCPCS: 59025; 59050; 99218; G0378

== ENCOUNTER 2018-12-26 10:05 | Outpatient (CLI) | payer OTHER, SELFPAY ==
[2018-12-26 10:31] VITALS: BMI 25.4
--- NOTE | 2018-12-27 01:05 | OB.TRI.PN ---
Progress Notes Date of Service: 12/26/18 Progress Note: Patient presents for triage evaluation secondary to vaginal bleeding and abdominal cramping she has had intercourse in the last 24 hours FHT: 140 Moderate variability reactive no decelerations category I tracing [place]: No regular contractions Assessment and plan: Vaginal bleeding reactive NST, reassuring maternal and status patient discharged to home to follow-up scheduled. See problem list details for additional plan information. - Problem List (1) Vaginal bleeding during Status: Acute Comment: see 12/26 no labor, s/p intercourse Multi Select Codes - Urinary/Genital Urinary/Genital CPT Codes: 71868-92 non-stress test Interp
== END 2018-12-26 11:25 | disposition home or self-care (01) ==
LOC: WPOUT 10:28 → OBT 10:30
PROVIDERS: Family Provider Nurse Practitioner Family; PCP Nurse Practitioner Family; Visit Provider Obstetrics & Gynecology
DX: O46.90 Antepartum hemorrhage, unspecified, unspecified trimester (principal); Z3A.00 Weeks of gestation of pregnancy not specified

== ENCOUNTER → 2018-12-30 17:00 | Outpatient (CLI) | payer OTHER, SELFPAY ==
[2018-12-30 16:02] VITALS: BMI 25.4
== END ==
PROVIDERS: Family Provider Nurse Practitioner Family; PCP Nurse Practitioner Family; Referring Provider Obstetrics & Gynecology; Visit Provider Obstetrics & Gynecology
DX: N89.8 Other specified noninflammatory disorders of vagina (principal)
CPT/HCPCS: 87070; 87205

== ENCOUNTER 2019-01-06 19:40 | Outpatient (CLI) | payer OTHER, SELFPAY ==
[2018-12-30 16:02] VITALS: BMI 25.4
[2019-01-06 20:19] LABS: Bacteria 0 SEEN /hpf (None Seen); Mucous, Urine 0 SEEN /hpf (<or=2+); Red Blood Cells-Urine 0 SEEN /hpf (0-5); Squamous Epithelial Cells - UA 0 SEEN /hpf (5-10); White Blood Cells 0 SEEN /hpf (0-5)
[2019-01-06 20:20] LABS: Color, Urine Straw (Yellow); Glucose, Dipstick Normal (Normal); Ketone-Dipstick Negative (Negative); Leukocyte Esterase-Dipstick Negative /ul (Negative); Nitrite-Dipstick Negative (Negative); Occult Blood-Urine Negative /ul (Negative); Protein-Dipstick Negative (Negative); Urine Bilirubin Dipstick Negative (Negative); Urine Clarity Clear (Clear); Urine Urobilinogen Normal (Normal); Urine pH 6.5 (5.0 - 8.0)
[2019-01-06 20:34] VITALS: BMI 26.1
[2019-01-06] MEDS: Acetaminophen 500 MG Tablet 1000 MG PO (21:10)
[2019-01-06 21:15] LABS: ROM Internal Control Test YES-OK TO RESULT pt. (Internal QC); ROM Patient Test Negative (Negative); Record Kit Lot#, ROM+ J8255
[2019-01-06 22:50] VITALS: RESP 18
--- NOTE | 2019-02-02 18:46 | OB.TRI.NOTE ---
History of Present Illness Date of Service: 01/06/19 Was patient seen by the physician?: No Reason For Visit: R/O LABOR Date of Service: 01/06/19 Final BUCKY: 03/05/19 Final BUCKY Source: US <20 weeks Gestational age: 32 Weeks and 0 Days History of Present Illness: 32-week intrauterine presents with transient contractions. She described the discomfort as crampiness. Allergies No Known Allergies Allergy (Verified 01/26/19 16:04) - Pertinent Past Medical History Medical History: Past Medical History (Last Reviewed 01/26/19 @ 16:04 by Mago Hawkins) Osteogenesis imperfecta Surgical History: Past Surgical History (Last Reviewed 01/26/19 @ 16:04 by Mago Hawkins) History of dilatation and curettage Hx of cholecystectomy Laboratory Studies: Laboratory Tests 01/06/19 01/06/19 Range/Units 20:47 20:10 Urine Color Straw (Yellow) Urine Clarity Clear (Clear) Urine pH 6.5 (5.0 - 8.0) Ur Specific [place] 1.010 (1.002-1.030) Urine Protein Negative (Negative) mg/dl Urine Glucose (UA) Normal (Normal) mg/dl Urine Ketones Negative (Negative) mg/dl Urine Occult Blood Negative (Negative) /ul Urine Nitrite Negative (Negative) Urine Bilirubin Negative (Negative) mg/dL Urine Urobilinogen Normal (Normal) mg/dl Ur Leukocyte Esterase Negative (Negative) /ul Urine RBC 0 SEEN (0-5) /hpf Urine WBC 0 SEEN (0-5) /hpf Ur Squamous Epith Cells 0 SEEN (5-10) /hpf Urine Bacteria 0 SEEN (None Seen) /hpf Urine Mucus 0 SEEN (<or=2+) /hpf Vag Amniotic Fld Detect Negative (Negative) Physical Exam Vitals: Vital Signs Resp 18 01/06/19 22:50 NST - FHR Rate Baby A NST Reactive:: Yes FHR Category:: Category I Impression/Plan 32-week intrauterine with transient contractions. Cervix nonthreatening. UA was negative and ROM test was negative. Contractions subsided after observation, pushing p.o. fluids, and giving Tylenol. Patient was instructed to follow-up in the next few days in the office. She was also instructed to call if her contractions return or were more severe or if leakage of fluid was noted.
== END 2019-01-06 22:50 | disposition home or self-care (01) ==
LOC: WPOUT 19:49 → WP 19:49
PROVIDERS: Family Provider Nurse Practitioner Family; PCP Nurse Practitioner Family; Referring Provider Obstetrics & Gynecology; Visit Provider Obstetrics & Gynecology
DX: O26.893 Other specified pregnancy related conditions, third trimester (principal); N85.8 Other specified noninflammatory disorders of uterus; Q78.0 Osteogenesis imperfecta; Z3A.32 32 weeks gestation of pregnancy
CPT/HCPCS: 59025; 59050; 81001; 84112; 99218; G0378

== ENCOUNTER → 2019-01-13 18:11 | Outpatient (CLI) | payer OTHER, SELFPAY ==
[2019-01-13 16:55] VITALS: BMI 26.1
== END ==
PROVIDERS: Family Provider Nurse Practitioner Family; PCP Nurse Practitioner Family; Visit Provider Obstetrics & Gynecology
DX: O26.899 Other specified pregnancy related conditions, unspecified trimester (principal); N89.8 Other specified noninflammatory disorders of vagina; Z3A.00 Weeks of gestation of pregnancy not specified
CPT/HCPCS: 87070; 87077; 87205

== ENCOUNTER 2019-01-16 18:15 | Outpatient (CLI) | payer OTHER, SELFPAY ==
[2019-01-13 16:55] VITALS: BMI 26.1
[2019-01-16 18:43] VITALS: BMI 26.1
[2019-01-16 18:56] LABS: ROM Internal Control Test YES-OK TO RESULT pt. (Internal QC); ROM Patient Test Negative (Negative)
[2019-01-16] MEDS: Nitrofurantoin Macrocrystals 100 MG Capsule PO (20:02)
[2019-01-16] MEDS: Phenazopyridine 95 MG Tablet PO (20:02)
[2019-01-16] MEDS: metroNIDAZOLE 500 MG Tablet PO (20:02)
[2019-01-16] MEDS: Famotidine 20 MG Tablet PO (20:06)
[2019-01-17] MEDS: Phenazopyridine 95 MG Tablet PO (04:18)
[2019-01-17] MEDS: Betamethasone/Betamethasone 30 MG/5 ML Vial 12 MG IM (04:19)
--- NOTE | 2019-01-17 06:38 | OB.TRI.HP_ITS ---
- Problem List (1) labor Status: Acute (2) Status: Acute Qualifiers: Comment: genetic-low risk, carrier, and ntd screening discussed (3) Supervision of high risk , antepartum Status: Acute Comment: PRR BUCKY 03/05/19 : Paul (4) Osteogenesis imperfecta Status: Acute Comment: will get mfm consult. co-manage care with MFM. growth q 4 wks, further genetic testing with MFM, anatomy scan with MFM @18 wks, nutrition consult with MFM, C/S @ 39 wks, infant skeletal scan after delivery,, maternal echocardiogram History of Present Illness Date of Service: 01/16/19 Was patient seen by the physician?: Yes Reason For Visit: R/O LABOR History of Present Illness: 23-year-old G1, P0 at 32 weeks 6 days presents with contractions and questionable loss of fluid. ROM plus was negative and patient was found to be half a centimeter dilated 50% effaced and -1. In the morning today she was evaluated at [facility] and was found to be the same dilation and was given a dose of Celestone. Since then patient had contractions that increased this evening and therefore she presented for evaluation. Allergies No Known Allergies Allergy (Verified 01/16/19 18:40) - Pertinent Past Medical History Medical History: Past Medical History (Last Reviewed 01/13/19 @ 16:43 by Maria Del Rosario Prieto) Osteogenesis imperfecta Surgical History: Past Surgical History (Last Reviewed 01/13/19 @ 16:43 by Maria Del Rosario Prieto) History of dilatation and curettage Hx of cholecystectomy Laboratory Studies: Laboratory Tests 01/16/19 Range/Units 18:25 Vag Amniotic Fld Detect Negative (Negative) Review of Systems Constitutional: Denies: Fever, Malaise Eyes: Denies: Blurred vision, Vision Change HEENT: Denies: Head Aches, Visual Changes Cardiovascular: Denies: Chest Pain, Palpitations Respiratory: Denies: Cough, Shortness of Breath, Wheezing Gastrointestinal: Denies: Abdominal Pain, Diarrhea, Nausea, Vomiting Genitourinary: Denies: Dysuria, Hematuria Musculoskeletal: Denies: Joint Pain, Muscle pain Skin: Denies: Lesions, Rash Neurological: Denies: Blurred vision, Focal weakness, Headaches Psychiatric: Denies: Anxiety, Depression Endocrine: Denies: Heat/ Cold Intolerance Hematologic/ Lymphatic: Denies: Easy Bruising, Easy Bleeding Physical Exam General: Alert, Cooperative, No apparent distress HEENT: Atraumatic, Normocephalic. Negative for: Thyromegaly, Lymphadenopathy Cardiovascular: Regular rate Lungs: Normal air movement Abdomen: Soft, Non Tender, Gravid Neurological: Deep Tendon Reflexes 2+/4 and Symmetrical, Neuro grossly intact. 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 Negative for: Vulvar lesions Estimated gestational size: Appropriate for gestational size Presentation: Cephalic NST - FHR Rate Baby A Baseline: 140 Variability:: Moderate Accelerations:: 15 x 15 Decelerations:: None NST Reactive:: Yes FHR Category:: Category I Uterine Activity:: Irregular contractions Impression/Plan 23-year-old G1, P0 at 32 weeks 6 days presents with labor Minimal cervical change of effacement only but persistent contractions. Recommend extended monitoring overnight and repeat Celestone dose tomorrow. No tocolytics indicated at this time. Expectant management. If no cervical change recommend discharge tomorrow Multi Select Codes - Urinary/Genital Urinary/Genital CPT Codes: 05502-40 non-stress test Interp
[2019-01-17] MEDS: Nitrofurantoin Macrocrystals 100 MG Capsule PO (07:58)
[2019-01-17] MEDS: metroNIDAZOLE 500 MG Tablet PO (07:58)
[2019-01-17] MEDS: Famotidine 20 MG Tablet PO (07:59)
== END 2019-01-17 09:00 | disposition home or self-care (01) ==
LOC: WPOUT 18:21 → WP 18:22
PROVIDERS: Family Provider Nurse Practitioner Family; PCP Nurse Practitioner Family; Visit Provider Obstetrics & Gynecology
DX: O60.03 Preterm labor without delivery, third trimester (principal); Z3A.32 32 weeks gestation of pregnancy; Q78.0 Osteogenesis imperfecta
CPT/HCPCS: 59025; 59050; 84112; 96372; 99218; G0378; J0702

== ENCOUNTER → 2019-01-26 16:43 | Outpatient (CLI) | payer OTHER, SELFPAY ==
[2019-01-26 16:04] VITALS: BMI 26.1
== END ==
PROVIDERS: Family Provider Nurse Practitioner Family; PCP Nurse Practitioner Family; Referring Provider Nurse Practitioner Women's Health; Visit Provider Nurse Practitioner Women's Health
DX: N89.8 Other specified noninflammatory disorders of vagina (principal)
CPT/HCPCS: 87070; 87077; 87205

== ENCOUNTER 2019-02-02 16:50 | Outpatient (CLI) | payer OTHER, SELFPAY ==
[2019-01-26 16:04] VITALS: BMI 26.1
[2019-02-02 17:37] VITALS: BMI 28.0
[2019-02-02 18:10] LABS: Mucous, Urine 0 SEEN /hpf (<or=2+); Red Blood Cells-Urine 0 SEEN /hpf (0-5)
[2019-02-02 18:12] LABS: Color, Urine Yellow (Yellow); Glucose, Dipstick Normal (Normal); Ketone-Dipstick 15 mg/dl (Negative); Leukocyte Esterase-Dipstick 25 /ul (Negative); Nitrite-Dipstick Negative (Negative); Occult Blood-Urine 10 /ul (Negative); Protein-Dipstick 30 mg/dl (Negative); Urine Bilirubin Dipstick Negative (Negative); Urine Clarity Cloudy (Clear); Urine Urobilinogen Normal (Normal)
[2019-02-02 18:19] LABS: Bacteria 1+ /hpf (None Seen); Calcium Oxalate Crystals Ur 4+ /hpf (<or=2+); Squamous Epithelial Cells - UA 10-25 SEEN /hpf (5-10); White Blood Cells 5-10 SEEN /hpf (0-5)
--- NOTE | 2019-02-02 21:08 | OB.TRI.PN_ITS ---
Progress Notes Date of Service: 02/02/19 Progress Note: Patient presents for triage evaluation secondary to cramping possible uti FHT: 140 Moderate variability reactive no decelerations category I tracing [place]: no regularContractions Assessment and plan: threatened labor Reactive NST, reassuring maternal and status patient discharged to home to follow-up as scheduled. See problem list details for additional plan information. Laboratory Studies: Laboratory Tests 02/02/19 Range/Units 17:50 Urine Color Yellow (Yellow) Urine Clarity Cloudy (Clear) Urine pH 5.0 (5.0 - 8.0) Ur Specific [place] 1.030 (1.002-1.030) Urine Protein 30 H (Negative) mg/dl Urine Glucose (UA) Normal (Normal) mg/dl Urine Ketones 15 H (Negative) mg/dl Urine Occult Blood 10 H (Negative) /ul Urine Nitrite Negative (Negative) Urine Bilirubin Negative (Negative) mg/dL Urine Urobilinogen Normal (Normal) mg/dl Ur Leukocyte Esterase 25 H (Negative) /ul Urine RBC 0 SEEN (0-5) /hpf Urine WBC 5-10 SEEN (0-5) /hpf Ur Squamous Epith Cells 10-25 SEEN (5-10) /hpf Calcium Oxalate Crystal 4+ (<or=2+) /hpf Urine Bacteria 1+ (None Seen) /hpf Urine Mucus 0 SEEN (<or=2+) /hpf Multi Select Codes - Urinary/Genital Urinary/Genital CPT Codes: 37064-69 non-stress test Interp
== END 2019-02-02 19:10 | disposition home or self-care (01) ==
LOC: WPOUT 17:04 → WP 17:04
PROVIDERS: Family Provider Nurse Practitioner Family; PCP Nurse Practitioner Family; Referring Provider Obstetrics & Gynecology; Visit Provider Obstetrics & Gynecology
DX: O60.00 Preterm labor without delivery, unspecified trimester (principal); Z3A.00 Weeks of gestation of pregnancy not specified
CPT/HCPCS: 59025; 59050; 81001; 87086; 99218; G0378

== ENCOUNTER 2019-02-05 21:40 | Outpatient (CLI) | payer OTHER, SELFPAY ==
[2019-02-05 21:28] VITALS: BP 166/90; PULSE 109; RESP 18; TEMP 36.8; O2SAT 96; BMI 27.8
--- NOTE | 2019-02-05 21:35 | ED.RN ---
DUE TO BP PT IS TO GO DOWN TO OB FOR EVALUATION. OB CHARGE NURSE NOTIFIED. ESCORTED DOWN IN WHEELCHAIR BY ED MORPHOLOGY TEACHER.
[2019-02-05 22:15] VITALS: BMI 28.0
[2019-02-05 23:06] LABS: AST(SGOT) 17 U/L (15-37); Alanine Aminotransfer ALT/SGPT 18 U/L (13-56); Creatinine, Serum 0.35 mg/dL (0.55-1.02); EST Glomerular Filtration Rate 243 mL/min (>60); Est Glom Filt Rate - Afr Amer 294 mL/min (>60); Uric Acid 5.2 mg/dL (2.6-6.0)
[2019-02-05 23:06] LABS: Protein, Urine (Random) 43.6 mg/dL (<11.9); Protein:Creat Ratio 568 mg/g CRE (0-200)
[2019-02-05 23:18] LABS: Hematocrit 33.4 % (37-47); Hemoglobin 11.8 g/dL (12.0-15.0); Mean Corp Hgb Conc 35.3 g/dL (32-36); Mean Corpuscular Hgb 33.1 pg (27.0-32.0); Mean Corpuscular Volume 93.8 fL (81-99); Mean Platelet Vol. 10.3 fl (6.2-12.0); Platelet Count 201 K/mm3 (150-450); RBC Distribution Width CV 12.9 % (11.6-14.6); Red Blood Count 3.56 M/mm3 (4.2-5.4); White Blood Count 9.4 K/mm3 (4.4-11.0)
[2019-02-05 23:26] LABS: Prothrombin Time (Protime)PT. 12.8 SECONDS (11.7-14.9)
[2019-02-05 23:27] LABS: Partial Thromboplast Time 28.2 Seconds (24.1-36.2)
--- NOTE | 2019-02-07 03:58 | OB.TRI.PN_ITS ---
Progress Notes Date of Service: 02/05/19 Progress Note: Patient presents for triage evaluation secondary to not feeling well found to have mildly elevated blood pressures and elevated urine protein FHT: 135 Moderate variability reactive no decelerations category I tracing [place]: no Contractions Assessment and plan: Preeclampsia reactive NST, reassuring maternal and status patient discharged to home to follow-up in office plan 37-week delivery. See problem list details for additional plan information. Laboratory Studies: Laboratory Tests 02/05/19 02/05/19 02/05/19 Range/Units 23:10 23:10 22:43 WBC 9.4 Corrected WBC RBC 3.56 L Hgb 11.8 L Hct 33.4 L MCV 93.8 MCH 33.1 H MCHC 35.3 RDW Std Deviation 45.0 H RDW Coeff of Sharmin 12.9 Plt Count 201 MPV 10.3 Diff Path Review PT 12.8 INR 1.0 APTT 28.2 Creatinine 0.35 L (0.55-1.02) mg/dL Estim Creat Clear Calc 250.95 ml/min Est GFR (MDRD) Af Amer 294 (>60) mL/min Est GFR (MDRD) Non-Af 243 (>60) mL/min Uric Acid 5.2 (2.6-6.0) mg/dL AST 17 (15-37) U/L ALT 18 (13-56) U/L U Random Total Protein (<11.9) mg/dL Urine Creatinine (NO RANGE EST.) mg/dL Protein/Creatinin Ratio (0-200) mg/g CRE 02/05/19 02/05/19 02/05/19 Range/Units 22:43 22:43 22:33 WBC Cancelled Corrected WBC Cancelled RBC Cancelled Hgb Cancelled Hct Cancelled MCV Cancelled MCH Cancelled MCHC Cancelled RDW Std Deviation Cancelled RDW Coeff of Sharmin Cancelled Plt Count Cancelled MPV Cancelled Diff Path Review Cancelled PT Cancelled INR Cancelled APTT Cancelled Creatinine (0.55-1.02) mg/dL Estim Creat Clear Calc ml/min Est GFR (MDRD) Af Amer (>60) mL/min Est GFR (MDRD) Non-Af (>60) mL/min Uric Acid (2.6-6.0) mg/dL AST (15-37) U/L ALT (13-56) U/L U Random Total Protein 43.6 H (<11.9) mg/dL Urine Creatinine 76.70 (NO RANGE EST.) mg/dL Protein/Creatinin Ratio 568 H (0-200) mg/g CRE - Problem List (1) Preeclampsia Status: Acute Comment: developed at 36 weeks plan delivery at 37 [place] primary for OI
[2019-02-07 11:42] LABS: 24HR. Urine Creatinine 0.61 g/24 HR (0.70-1.90)
[2019-02-07 11:48] LABS: 24 Hour Urine Protein 358.8 mg/24HR (<150 MG/24HR); 24HR. UA Prot. Total Volume 1250 mL; Urine Protein (24 Hour) 28.7 mg/dL (<11.9)
== END 2019-02-06 00:05 | disposition home or self-care (01) ==
LOC: WPOUT 21:51 → OBT 21:51
PROVIDERS: Family Provider Nurse Practitioner Family; PCP Nurse Practitioner Family; Visit Provider Obstetrics & Gynecology
DX: O14.93 Unspecified pre-eclampsia, third trimester (principal); Z3A.36 36 weeks gestation of pregnancy
CPT/HCPCS: 36415; 59025; 59050; 82565; 82570; 84156; 84450; 84460; 84550; 85027; 85610; 85730; 99218; G0378; J0702

== ENCOUNTER → 2019-02-07 09:57 | Outpatient (CLI) | payer OTHER, SELFPAY ==
[2019-02-07 09:35] VITALS: BMI 28.0
== END ==
PROVIDERS: Family Provider Nurse Practitioner Family; PCP Nurse Practitioner Family; Visit Provider Obstetrics & Gynecology
DX: O16.3 Unspecified maternal hypertension, third trimester (principal)
CPT/HCPCS: 82570; 84156

== ENCOUNTER 2019-02-07 10:50 | Inpatient (IN) | payer OTHER, SELFPAY ==
[2019-02-07] VITALS (37 sets, daily range): BP systolic 117–165; BP diastolic 62–103; PULSE 84–120; RESP 18–20; TEMP 36.4–37.3; O2SAT 93–99; BMI 28.0; BMI 27.6
[2019-02-07 10:22] LABS: Hematocrit 35.9 % (37-47); Hemoglobin 12.4 g/dL (12.0-15.0); Mean Corp Hgb Conc 34.5 g/dL (32-36); Mean Corpuscular Volume 92.8 fL (81-99); Mean Platelet Vol. 10.3 fl (6.2-12.0); Platelet Count 208 K/mm3 (150-450); RBC Distribution Width CV 12.6 % (11.6-14.6); Red Blood Count 3.87 M/mm3 (4.2-5.4); White Blood Count 9.8 K/mm3 (4.4-11.0)
[2019-02-07 10:24] LABS: Protein, Urine (Random) 63.1 mg/dL (<11.9); Protein:Creat Ratio 649 mg/g CRE (0-200)
[2019-02-07 10:33] LABS: Prothrombin Time (Protime)PT. 13.2 SECONDS (11.7-14.9)
[2019-02-07 10:34] LABS: Partial Thromboplast Time 28.3 Seconds (24.1-36.2)
[2019-02-07 10:43] LABS: AST(SGOT) 18 U/L (15-37); Alanine Aminotransfer ALT/SGPT 19 U/L (13-56); EST Glomerular Filtration Rate 209 mL/min (>60); Est Glom Filt Rate - Afr Amer 253 mL/min (>60); Estimated Creatinine Clearance 215.92 ml/min; Uric Acid 5.7 mg/dL (2.6-6.0)
[2019-02-07 10:58] LABS: Creat.Clear Total Volume 1250 mL; Creatinine Clearance 106 ml/min (100-200); Creatinine Serum Creat 0.4 mg/dL (0.6-1.0); EST Glomerular Filtration Rate 211 mL/min (>60); Est Glom Filt Rate - Afr Amer 255 mL/min (>60)
[2019-02-07] MEDS: Magnesium Sulfate 4gm/100mL 4 GM/100 ML IV.SOLN. IV (11:08)
[2019-02-07] MEDS: Lactated Ringers 500 ML IV.SOLN. 1000 ML IV (11:08)
[2019-02-07] MEDS: Magnesium Sulfate 4gm/100mL 2 GM/50 ML IV.SOLN. IV (11:34)
[2019-02-07] MEDS: Magnesium Sulfate 20 GM/500 ML BAG IV ×2 (11:46→21:26)
[2019-02-07 13:23] LABS: Absolute Lymphocyte Count 1.11 X10^3/uL (0.83-4.51); Absolute Neutrophil Count 7.8 X10^3/uL (2.0-7.7); Basophil# 0.05 X10^3/uL; Basophil% 0.5 % (0-1); Lymphocyte # 1.11 X10^3/ul (4.0); Lymphocyte % 11.4 % (19-41); Monocyte# 0.64 X10^3/uL; Monocyte% 6.6 % (0-10); NRBC Flagged by Analyzer 0 % (0-5); Neutrophil # 7.77 X10^3/uL (2.7-7.7); Neutrophil % 79.7 % (47-70)
[2019-02-07 14:05] LABS: Group B Strep DNA By PCR Negative (Negative); Internal Control PASS; Probe Check PASS; Specimen Processing Control PASS
[2019-02-07] MEDS: FLUCONAZOLE 150 MG TABLET PO (14:19)
[2019-02-07] MEDS: Acetaminophen 500 MG Tablet 1000 MG PO ×2 (14:27→22:46)
[2019-02-07] MEDS: Lactated Ringers 1,000 ML 999 ML IV (15:46)
[2019-02-07] MEDS: Cefazolin 2 GM in 0.9% Normal Saline 100 ML IV (16:27)
[2019-02-07] MEDS: Oxytocin 30 units/NS 500 ml 30 UNITS/500 ML IV.SOLN 167 UNITS IV (18:00)
--- NOTE | 2019-02-07 19:54 | NURSING ---
Lung sounds noted in initial post-op assessment. Reflexes brisk, 3+, clonus x1 beat.
[2019-02-07] MEDS: Lactated Ringers 1,000 ML 50 ML IV (21:30)
[2019-02-07] MEDS: Labetalol 100 MG Tablet PO (21:34)
[2019-02-07] MEDS: Ondansetron 4 MG/2 ML Vial IV (23:05)
[2019-02-08] VITALS (27 sets, daily range): BP systolic 93–155; BP diastolic 54–95; PULSE 86–117; RESP 12–18; TEMP 36.3–37.8; O2SAT 96–100
[2019-02-08] MEDS: Ketorolac 30 MG/ML Syringe IV ×4 (01:08→18:28)
--- NOTE | 2019-02-08 05:07 | PCM.HPOB.BLA ---
- Problem List (1) Preeclampsia, severe Status: Acute (2) Osteogenesis imperfecta Status: Acute Comment: will get mfm consult. co-manage care with MFM. growth q 4 wks, further genetic testing with MFM, anatomy scan with MFM @18 wks, nutrition consult with MFM, C/S @ 39 wks, infant skeletal scan after delivery,, maternal echocardiogram (3) Preeclampsia Status: Acute Comment: developed at 36 weeks plan delivery at 37 [place] primary for OI (4) Status: Acute Qualifiers: Comment: genetic-low risk, carrier, and ntd screening discussed (5) labor Status: Acute (6) Supervision of high risk , antepartum Status: Acute Comment: PRR BUCKY 03/05/19 : Paul History and Physical Date of Admission: 02/07/19 Intake Vital Signs 02/07/19 Body Mass Index (BMI) 28.0 02/07/19 Height 4 ft 11 in 02/07/19 Weight: 138 lb 2 oz 02/07/19 Body Mass Index (BMI) 27.8 02/07/19 Blood Pressure 166/110 H 02/07/19 Body Mass Index (BMI) 28.0 Intake Visit Reasons: OB, ER f/u for high BP and protein in urine Acid Dumper Required: No Is patient in pain?: No Allergies No Known Allergies Allergy (Verified 02/07/19 09:34) Medications vitamin#30 30 mg iron-10 mg iron-folic acid 1 mg-omg3 capsule 1 cap PO DAILY cap 03/02/18 [History Confirmed 02/07/19] albuterol sulfate 90 mcg/actuation breath activated powder inhaler 2 inh INHALATION Q6H 01/13/19 [History Confirmed 02/07/19] ranitidine 150 mg tablet 150 mg PO BID #180 tab 01/18/19 [Rx Confirmed 02/07/19] Amoxicillin/Potassium Clav [Augmentin 875-125 Tablet] 1 ea PO BID 02/02/19 [History Confirmed 02/07/19] Fluticasone 0.05% [Flonase Nasal [place]] 2 spray NASAL DAILY 02/02/19 [History Confirmed 02/07/19] Metronidazole 500 mg PO BID 02/02/19 [History Confirmed 02/07/19] Guaifenesin [Mucinex] 600 mg PO BID PRN 02/05/19 [History Confirmed 02/07/19] Last Menstral Period: 01/09/18 Zika: Zika virus screening: Negative : No PFSH PFSH Medical History Osteogenesis imperfecta (Acute) Surgical History History of dilatation and curettage (Acute) Hx of cholecystectomy (Acute) Social History (Updated 02/07/19 @ 10:14 by Natasha Berumen MD) Smoking Status: Never smoker alcohol intake: never substance use type: does not use caffeine: Yes what type of physical activity do you participate in: walking seatbelt use: always do you feel safe at home: Yes additional social history: Paul Patient works at [employer] Pregancy History 2 Elective abortions Hx Para 0 Spontaneous abortions 1 Hx # Term Pregnancies Ectopic pregnancies Hx # Pregnancies Multiple births # of living children 0 HPI OB, ER f/u for high BP and protein in urine: Details: NAPOLEON LOW is a 23 year old who presents for routine OB visit. she is complaining of a headache and spots in her vision, and not feeling well. bps are initially 140s/90s OB Visit BUCKY Calculator Estimated Delivery Date Method Current WG Current Estimate 03/05/19 LMP (Certain) 36w 2d Expected Delivery Route/Plan LTCS pain management: spinal cut cord/dad catch: no : yes PP control planned: special requests: Specific Issue/Plans flu vaccine: [facility] at [facility] tdap vaccine: given 12/14/18 rhogam: na LARC form signed: declined Problem list reviewed and updated with the most current plan of care details and appropriate orders placed. Relevant counseling for the gestational age provided. Continue routine care and follow up unless otherwise noted in visit notes/problem list details movement and labor precautions reviewed. Initial Weight: 98 lb Date EGA Weight BP Urine Prot Glucose FHR FuHt Pres Mov CTX Dilation Effaced St Visit Note 09/08/18 14w 4d 99 lb 6 oz (+1 lb 6 oz) 128/72 161 NO VB, LOF. Doing well. Nausea improved 10/11/18 19w 2d 108 lb (+10 lb) 122/68 Negative Negative 150 no vb lof cramping had anatomy scan, 11/11/18 23w 5d 114 lb 4 oz (+16 lb 4 oz) 110/86 Negative Negative 150 no vb lof good fm co constipation 11/19/18 24w 6d 116 lb (+18 lb) 102/80 Negative Negative 146 Decr Work in for dec FM. States always worried. FHT earily noted with doppler and noted FM while in office. No VB, LOF or CTX. 12/14/18 28w 3d 125 lb (+27 lb) 122/84 140 29 Active absent no vb lof cbc gct tdap 12/30/18 30w 5d 125 lb (+27 lb) 138/88 Negative Negative 150 31 no vb lof good fm no regular ctx co some itching 01/13/19 32w 5d 131 lb 8 oz (+33 lb 8 oz) 136/90 Negative Negative 155 29 co itching 01/26/19 34w 4d 132 lb (+34 lb) 120/62 Negative Negative 151 32 0 Good FM. No VB, LOF. Vaginal itching-culture pending 02/07/19 36w 2d 138 lb 2 oz (+40 lb 2 oz) 166/110 Visit Notes Visit Date: 02/07/19 ??No visit notes to display Visit Date: 01/26/19 ??Good FM. No VB, LOF. Vaginal itching-culture pending ??HARI Sinclair on 01/26/19 Visit Date: 01/13/19 ??co itching ??Natasha Berumen MD on 01/13/19 Visit Date: 12/30/18 ??no vb lof good fm no regular ctx co some itching ??Natasha Berumen MD on 12/30/18 Visit Date: 12/14/18 ??no vb lof cbc gct tdap ??Natasha Berumen MD on 12/14/18 Visit Date: 11/19/18 ??Work in for dec FM. States always worried. FHT earily noted with doppler and noted FM while in office. No VB, LOF or CTX. ??HARI Sinclair on 11/19/18 Visit Date: 11/11/18 ??no vb lof good fm co constipation ??Natasha Berumen MD on 11/11/18 Visit Date: 10/11/18 ??no vb lof cramping had anatomy scan, ??Natasha Berumen MD on 10/11/18 Visit Date: 09/08/18 ??NO VB, LOF. Doing well. Nausea improved ??Tonia Iverson NP-C on 09/08/18 ACOG First Trimester First Trimester: Desire for , Alcohol, Tobacco Cessation, Illicit/Recreational Drug/Substance Use, Intimate Partner Violence, Barriers to care, Unstable Housing, Communication Barriers, Environmental/Work Hazards, Anticipated Course of Care, Toxoplasmosis Precations, Use of Any medications, Sexual activity, Exercise, Dental Care, Sauna/Hot tub use, Seat Belt use, Childbirth classes/Hospital facilities, , Travel, Indications for US and Screening for Aneuploidy Second Trimester Second Trimester: Signs and Symptoms of Labor, Selecting a care provider, Reproductive Life Planning, Care Planning, Tobacco Cessation, Depression/Anxiety and Intimate Partner Violence Third Trimester Third Trimester: Pain Management Plans, Labor support person(s), Immediate Larc, Movement Monitoring and Infant Feeding Yes ; discussed Trial of Labor after Counseling or discussed Circumcision preference Diagnostics Diagnostics Diagnostics Hgb 11.8 g/dL (12.0-15.0) L 02/05/19 Hct 33.4 % (37-47) L 02/05/19 Details: HIV: Urine Culture: Sequential Screen: NIPT Screen: ROS Const Reports system reviewed and no additional complaints, except as docu Card Reports system reviewed and no additional complaints, except as docu Resp Reports system reviewed and no additional complaints, except as docu GI Reports system reviewed and no additional complaints, except as docu, Reports nausea Reports system reviewed and no additional complaints, except as docu Musc Reports system reviewed and no additional complaints, except as docu Exam Const General: cooperative, healthy appearing, comfortable, anxious HENMT Head: normal to inspection Nose: external nose normal Face and sinus: normal facial exam Neck Neck: normal visual inspection, full ROM, no lymphadenopathy Thyroid: thyroid normal Chest Chest palpation & inspection: normal inspection of the chest Resp Effort & Inspection: normal respiratory effort GI Inspection: normal to inspection Palpation: soft, other (gravid uterus) Other: vertex and appropriate size for gestational age neuro: clonus present few beats, 3+ reflexes Other: Cervical Exam: Extrem General: pedal edema Assessment & Plan Problems 1. labor O60.00 2. 36 weeks gestation of Z3A.36 genetic-low risk, carrier, and ntd screening discussed 3. Supervision of high risk , antepartum O09.90 PRR BUCKY 03/05/19 : Paul 4. Osteogenesis imperfecta Q78.0 will get mfm consult. co-manage care with MFM. growth q 4 wks, further genetic testing with MFM, anatomy scan with MFM @18 wks, nutrition consult with [facility], skeletal scan after delivery,, maternal echocardiogram 5. Preeclampsia O14.90 developed at 36 weeks [place] primary for OI Plan preeclampsia with severe features- admit and plan immediate delivery today once NPO or if becomes unstable. s/p celestone several weeks ago and magnesium started, give labetalol PRN per HTN protocol. Orders Orders: POC Urinalysis 2 Dip (Clinic) Today Protein+Creatinine Ratio,Urine Today O16.3 Coding Level of Care Code OB Routine Diagnoses labor O60.00 36 weeks gestation of Z3A.36 ??Weeks of gestation: 36 weeks Supervision of high risk , antepartum O09.90 Osteogenesis imperfecta Q78.0 Preeclampsia O14.90
--- NOTE | 2019-02-08 05:10 | PCM.OPRPT ---
Problem List (1) Preeclampsia, severe Status: Acute (2) Osteogenesis imperfecta Status: Acute Comment: will get mfm consult. co-manage care with MFM. growth q 4 wks, further genetic testing with MFM, anatomy scan with MFM @18 wks, nutrition consult with MFM, C/S @ 39 wks, infant skeletal scan after delivery,, maternal echocardiogram (3) Preeclampsia Status: Acute Comment: developed at 36 weeks plan delivery at 37 [place] primary for OI (4) Status: Acute Qualifiers: Comment: genetic-low risk, carrier, and ntd screening discussed (5) labor Status: Acute (6) Supervision of high risk , antepartum Status: Acute Comment: PRR BUCKY 03/05/19 : Paul Delivery Classification: AMEYA Final BUCKY: 03/06/19 Gestational age: 36 Weeks and 2 Days fuel management handler: Jim Massey Type of Anesthesia:: Spinal Special Medications: floseal Implants Used: none Date of Procedure: 02/07/19 Pre-Operative Diagnosis: preeclampsia with severe features, maternal osteogenesis imperfecta Post-Operative Diagnosis: same Description of Procedure: She presented for routine visit and follow-up from the ER over the weekend for new diagnosis of mild preeclampsia and upon initial evaluation she was noted to have a headache and brought in her vision and some clonus and hyperreflexia present with mildly elevated blood pressures. The decision to start the patient on magnesium sulfate and proceed with delivery today was made. She did receive Celestone several weeks prior preeclampsia symptoms were rapidly evolving and progressing the last several days. Patient was initially stable enough to wait until she had been n.p.o. for the recommended amount of time however at the end of the day she developed increasing hyperreflexia and increasing headache that was not controlled with Tylenol therefore immediate delivery was decided upon. Spinal anesthesia was placed without difficulty. Stahl catheter was placed. The patient was placed in the dorsal supine position with leftward tilt. Patient was prepped and draped in the normal sterile fashion. Pfannenstiel skin incision was made with the scalpel and carried through to the underlying layer of fascia with the scalpel. Fascia was nicked in the midline and the incision extended laterally. The rectus bellies were dissected off superiorly and inferiorly with out complication both sharply and bluntly. The peritoneum was entered digitally. The incision was stretched and a low transverse uterine incision was made with the scalpel. The infant's head was delivered atraumatically followed by the anterior and posterior shoulders without complication the rest of the delivered. The cord was clamped and cut and the infant was handed off to awaiting nurse. The placenta was delivered spontaneously immediately following and was noted to be intact and have a three-vessel cord. The uterus was exteriorized cleared of all clots and debris, and the incision was closed in a double layer closure using #1 Monocryl. Several [id number] sutures and locked sutures of 3-0 Monocryl were placed to obtain hemostasis. FloSeal was placed over the incision to also obtain excellent hemostasis the ovaries and fallopian tubes were noted to be within normal limits. The uterus was returned to the maternal abdomen and gutters were cleared of all clots and debris. The peritoneum was closed with 3-0 Monocryl in a running fashion. Gloves were changed prior to fascial closure. Fascia was closed with 0 PDS in a running fashion. Subcutaneous tissue was copiously irrigated and the skin was closed with 3-0 Monocryl in a subcuticular fashion. Mepilex dressing was applied without complication. Patient was taken to recovery in stable condition. It was discussed with the patient that based on the clinical information obtained during this encounter, combined with her history, at this time I would recommend repeat cesareans for future deliveries if further pregnancies are desired as well as a baby aspirin to start at 14 to 16 weeks to reduce the risk of recurrent preeclampsia. Multi Select Codes - Urinary/Genital Urinary/Genital CPT Codes: 47087 Delivery [facility]
[2019-02-08] MEDS: Ondansetron 4 MG/2 ML Vial IV (05:30)
[2019-02-08] MEDS: Hydrocortisone 2.5% Crm 1 APPLIC TOPICAL (05:31)
[2019-02-08 06:24] LABS: Absolute Lymphocyte Count 1.25 X10^3/uL (0.83-4.51); Absolute Neutrophil Count 6.5 X10^3/uL (2.0-7.7); Basophil# 0.03 X10^3/uL; Basophil% 0.4 % (0-1); Eosinophil# 0.04 X10^3/uL; Eosinophils% 0.5 % (0-5); Hematocrit 27.6 % (37-47); Hemoglobin 9.5 g/dL (12.0-15.0); Lymphocyte # 1.25 X10^3/ul (4.0); Lymphocyte % 14.8 % (19-41); Mean Corp Hgb Conc 34.4 g/dL (32-36); Mean Corpuscular Hgb 32.3 pg (27.0-32.0); Mean Corpuscular Volume 93.9 fL (81-99); Mean Platelet Vol. 10.1 fl (6.2-12.0); Monocyte# 0.49 X10^3/uL; Monocyte% 5.8 % (0-10); NRBC Flagged by Analyzer 0 % (0-5); Neutrophil # 6.53 X10^3/uL (2.7-7.7); Neutrophil % 77.5 % (47-70); Platelet Count 183 K/mm3 (150-450); RBC Distribution Width CV 12.7 % (11.6-14.6); RBC Distribution Width SD 44.1 fl (35.1-43.9); Red Blood Count 2.94 M/mm3 (4.2-5.4); White Blood Count 8.4 K/mm3 (4.4-11.0)
[2019-02-08 06:37] LABS: International Normalized Ratio 1.1; Partial Thromboplast Time 31.5 Seconds (24.1-36.2); Prothrombin Time (Protime)PT. 13.6 SECONDS (11.7-14.9)
[2019-02-08 07:22] LABS: ALB/GLOB Ratio 0.7 RATIO (0.9-2.4); AST(SGOT) 23 U/L (15-37); Alanine Aminotransfer ALT/SGPT 18 U/L (13-56); Albumin, Serum 1.9 g/dL (3.2-5.0); Alkaline Phosphatase 179 U/L (45-117); Anion Gap 8 (5-15); BUN 7 mg/dL (7-18); BUN/Creat Ratio 17.5 RATIO (10-20); Chloride 104 mmol/L (98-107); EST Glomerular Filtration Rate 211 mL/min (>60); Est Glom Filt Rate - Afr Amer 255 mL/min (>60); Estimated Creatinine Clearance 215.92 ml/min; Globulin 2.7 g/dL (2.2-4.2); Glucose 129 mg/dL (74-106); Potassium 3.6 mmol/L (3.5-5.1); Protein, Total 4.6 g/dL (6.4-8.2); Sodium Level 134 mmol/L (136-145)
[2019-02-08 07:23] LABS: Calcium,Total 6.5 mg/dL (8.5-10.1)
[2019-02-08] MEDS: Magnesium Sulfate 20 GM/500 ML BAG IV (07:42)
--- NOTE | 2019-02-08 07:54 | NURSING ---
Lab called with a CA result of 6.5. Dr Berumen notified and no new orders at this time.
--- NOTE | 2019-02-08 12:14 | PCM.PN.OB ---
Patient Problems: Active and Suspected Problems (Last Reviewed 02/07/19 @ 09:33 by Maria Del Rosario Prieto) Preeclampsia, severe (Acute) Subjective: doing well no complaints pain controlled no CP SOB N V ambulating well tolerating po lochia moderate, going well - Physical Exam Vitals/I&O's: Vital Signs Temp Pulse Resp BP Pulse Ox 97.3 F L 90 12 120/69 97 02/08/19 08:15 02/08/19 11:15 02/08/19 11:15 02/08/19 11:15 02/08/19 11:15 Oxygen Delivery Method Room Air Weight: 136 lb 10.986 oz Body Mass Index (BMI) 27.6 Intake and Output for Last 24 Hours 02/06/19 02/07/19 02/08/19 23:59 23:59 23:59 Intake Total 3740.00 / 3740.00 1472.92 / 1472.92 Output Total 1160 / 1160 1435 / 1435 Balance 2580.00 / 2580.00 37.92 / 37.92 General: Alert, Oriented x3 Lungs: Normal air movement Cardiovascular: Regular rate Abdomen: Soft, Non Tender Neurological: Clonus Laboratory Results 02/07/19 09:50: U Random Total Protein 63.1 H, Urine Creatinine 97.20, Protein/Creatinin Ratio 649 H 02/07/19 10:10: WBC 9.8, RBC 3.87 L, Hgb 12.4, Hct 35.9 L, MCV 92.8, MCH 32.0, MCHC 34.5, RDW Std Deviation 43.0, RDW Coeff of Sharmin 12.6, Plt Count 208, MPV 10.3, Immature Gran % (Auto) 0.800, Neut % (Auto) 79.7 H, Lymph % (Auto) 11.4 L, [place] % (Auto) 6.6, Eos % (Auto) 1.0, Baso % (Auto) 0.5, Absolute Neuts (auto) 7.8 H, Absolute Lymphs (auto) 1.11, Nucleated RBC % 0 02/07/19 12:55: Group B Strep DNA Negative, Specimen Comment Not Reportable 02/08/19 06:00: Sodium 134 L, Potassium 3.6, Chloride 104, Carbon Dioxide 22.0, Anion Gap 8, BUN 7, Creatinine 0.40 L, Estim Creat Clear Calc 215.92, Est GFR (MDRD) Af Amer 255, Est GFR (MDRD) Non-Af 211, BUN/Creatinine Ratio 17.5, Glucose 129 H, Calcium 6.5 L*, Total Bilirubin 0.30, AST 23, ALT 18, Alkaline Phosphatase 179 H, Total Protein 4.6 L, Albumin 1.9 L, Globulin 2.7, Albumin/Globulin Ratio 0.7 L 02/08/19 06:00: WBC 8.4, RBC 2.94 L, Hgb 9.5 L, Hct 27.6 L, MCV 93.9, MCH 32.3 H, MCHC 34.4, RDW Std Deviation 44.1 H, RDW Coeff of Sharmin 12.7, Plt Count 183, MPV 10.1, Immature Gran % (Auto) 1.000 H, Neut % (Auto) 77.5 H, Lymph % (Auto) 14.8 L, [place] % (Auto) 5.8, Eos % (Auto) 0.5, Baso % (Auto) 0.4, Absolute Neuts (auto) 6.5, Absolute Lymphs (auto) 1.25, Nucleated RBC % 0 02/08/19 06:00: PT 13.6, INR 1.1, APTT 31.5 Current Medications Acetaminophen (Tylenol) 1,000 mg PO Q8H PRN PRN Reason: Pain Score 1-3/10 Last Admin: 02/07/19 22:46 Dose: 1,000 mg Documented by: Bisacodyl (Dulcolax) 10 mg RECTAL UD PRN PRN Reason: If no BM Fluconazole (Fluconazole) 150 mg PO X1 ONE Stop: 02/08/19 12:47 Last Admin: 02/07/19 14:19 Dose: 150 mg Documented by: Hydrocortisone (Hytone) 1 applic TOPICAL TID PRN PRN; Protocol PRN Reason: Discomfort Last Admin: 02/08/19 05:31 Dose: 1 applicatio Documented by: Magnesium Sulfate (20gm/500ml) 20 gm in 500 mls @ 50 mls/hr IV .Q10H [facility] Stop: 02/08/19 17:51 Last Infusion: 02/08/19 11:15 Dose: 2 gm/hr, 50 mls/hr Documented by: Lactated Ringer's () 1,000 mls @ 100 mls/hr IV .Q10H [facility] Last Infusion: 02/08/19 11:15 Dose: 50 mls/hr Documented by: Naloxone HCl 4 mg/ Dextrose 504 mls @ 0 mls/hr IV .Q0M PRN; Protocol PRN Reason: To maintain Resp. rate >10 Ketorolac Tromethamine (Toradol) 30 mg IV Q6H [facility] Stop: 02/09/19 18:01 Last Admin: 02/08/19 06:11 Dose: 30 mg Documented by: Labetalol HCl (Trandate) 100 mg PO BID [facility] Last Admin: 02/08/19 10:08 Dose: Not Given Documented by: Nalbuphine HCl (Nubain) 5 mg IV Q3H PRN PRN PRN Reason: ITCHING Stop: 02/08/19 18:46 Naloxone HCl (Narcan) 0.02 mg IV Q1M PRN PRN Reason: RR <10 and pt unresponsive Naproxen (Naprosyn) 250 - 500 mg PO Q8H PRN PRN PRN Reason: Pain Score 1-3/10 Ondansetron HCl (Zofran) 4 mg IV Q4H PRN PRN PRN Reason: Nausea Last Admin: 02/08/19 05:30 Dose: 4 mg Documented by: Oxycodone HCl (Oxyir) 5 - 10 mg PO Q4H PRN PRN PRN Reason: Pain Score 4-10/10 Prochlorperazine Edisylate (Compazine Iv) 10 mg IV Q6H PRN PRN PRN Reason: NAUSEA Senna/Docusate Sodium (Senokot-S, Vianey-Colace) 0 tablet PO DAILY PRN PRN Reason: Constipation Simethicone (Mylicon) 80 mg PO PCHS PRN PRN Reason: Indigestion/stomach pain Last Admin: 02/07/19 23:05 Dose: 80 mg Documented by: Sodium Chloride () 5 - 15 ml IV UD PRN PRN Reason: SALINE FLUSH Sodium Chloride ([place] Nasal [place]) 1 spray NASAL TID PRN PRN PRN Reason: NASAL DRYNESS Medical Necessity - Tobacco Use Smoking Status: Never smoker Assessment/Plan All Active Problems (Last Reviewed 02/07/19 @ 09:33 by Maria Del Rosario Prieto) labor (Acute) Preeclampsia (Acute) Preeclampsia, severe (Acute) (Acute) Supervision of high risk , antepartum (Acute) Osteogenesis imperfecta (Acute) Abdominal pain affecting (Resolved) Decreased movement (Resolved) Missed (Resolved) (Resolved) Supervision of normal first (Resolved) Vaginal bleeding during (Resolved) s/p LTCS PPD # 1 1. routine post care 2. breast feeding- support given 3. rh positive 4. rubella immune
[2019-02-08] MEDS: Sodium Chloride 0.65% 1 SPRAY SPRAY.BTL NASAL (14:56)
--- NOTE | 2019-02-08 16:48 | CASEMGMT ---
Social Work Assessment Labor and Delivery Unit Date of Referral: 02.08.2019 Time of Referral: 0803 Referred By: Dr. Berumen Date of Intervention: 02.08.2019 Time of Intervention: 1300 - 1340 Reason for Referral: resources - patient had first baby and needs education and assistance with resources History obtained from: medical records and mother of baby (MOB) Samara Willis. Conversation with Portia Santana RN. Household composition: Lives with , reports home situation is safe and adequate. Plans for baby to live in this home. Patient's parent/guardian status: MOB is age 22, and father of baby (FOB) Paul Willis is 23. MOB and FOB are for the last 2 years. Denies any form of abuse in relationship, control or intimidation issues. [place] baby is the first for parents. [place] is to be named iMke Willis, from 02.07.2019, Medical History: MOB is G2, P0 to 1 after delivery of Mike. MOB reports a 9-week miscarriage in March 2018. are started this with Mike at 10 weeks gestation. Record indicates MOB with history of osteogenesis imperfecta. Baby is to have genetics follow up in April. MOB developed pre-eclampsia, induced and delivered Mike at 36.2 weeks. Mike?s weight is 6 pounds. Apgars 9 and 9. Educational Status: MOB reports to have graduated high school and did have an IEP for ?learning disability.? MOB reports can read and write, that just takes a little longer to grasp what has read. MOB reports to learn by reading and talking. Asked MOB if MOB can tell time on a watch face (which is what the hospital uses, and MOB admits to having a hard time). 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 Infant Supplies: MOB reports had a baby shower at 32 weeks. Reports to have a car seat, crib, bassinet, clothing, diapers, wipes, and bottles. Feeding method for baby: reports had intended to breast feed baby as knows this is good, but that baby is not latching so gave baby a bottle last night. MOB reports may consider formula. Depending on which method MOB goes with for feeding, MOB has neither a breast pump at this point nor formula. Childcare/Caregiver(s): MOB plans to be caregiver. Help from FOB and family. Transportation: MOB repots to drive and have a license. Programs/Agencies Involved: MOB reports just chose to go with [facility] for baby?s follow up. MOB is not actively involved with any agencies but reports interest in [place] or even Medicaid if eligible. Reports agreement with a referral to [facility]. Children Services/Legal Issues: MOB denies legal issues and denies any past involvement with children services. Behavioral Health Issues: Mental Health History: MOB denies any depression, anxiety, bipolar disorder, ADD, or ADHD. No history of suicidal thoughts, plans, intent, or attempts. Noted in [facility] record that at 24-week appointment the MOB indicated to ?always worried.? Substance Use History: MOB denies any substance use or abuse history. No tobacco use. MOB reports was treated with Robutussin for a cold or sinus infection. MOB had bottle in the room, and it was labeled at [facility], filled on 01.23.2019. Family History: MOB reports a sister has bipolar disorder. Reports FOB has ADHD, was on medication in the past, but no longer and reports the FOB is going well and ?is good to me.? Drug Screens: None performed for MOB or baby. Family/Social Stressors: MOB with miscarriage in March 2018, which MOB reports was hard. MOB repots with Mike happened a little more quickly than MOB and FOB had planned for, but that MOB is accepting. MOB reports that not feeling so good now due to a headache from a cold or sinus infection and then being on IV (mag for the pre-e). MOB reports had a lot of sickness during the including two sinus infections, bronchitis, UTI, 2 episodes of bacterial vaginosis. MOB reports financially doing okay but that old hospital bills from 2 years ago (gallbladder surgery) and for the D&C in March are stressful. MOB reports to have a payment plan set up. Support Systems: MOB reports FOMarilu works on dayshift, with plan to work while MOB is in the hospital so that can take off when MOB goes home with baby. MOB reports her mother lives in [place] and can also help at home going. FOB?s family can help and live in [place]. ASSESSMENT: Spoke with Portia HERNANDEZ who reports concern that MOB may have some learning issues present. MOB needing reinforcement so far on baby care and has not been real assertive in hands on care of baby. Met with MOB in room and introduced to self and role. MOB pleasant and cooperative with manager social services, answered questions. MOB reports to have positive feelings for baby but that does not feel good herself right now. Baby was sleeping in the bedside crib during social work visit, MOB lying in bed, no interactions noted between MOB or baby. MOB reports uncertainty as to how will feed the baby as wanted to breast feed, but baby is not latching. MOB reports has never made a bottle before so this method would be new and would require teaching. While MOB was able to know that baby should be fed every 3 hours, MOB unable to tell this appeals writer when the last feeding was (per RN at about 1000 MOB was told to start last feeding) nor what time the baby is to feed next. MOB reports has been relying on nursing to let MOB know. MOB reports perception that as MOB is connected to an IV that is hard for MOB to keep track of things for the baby. This appeals writer suggested MOB set an alarm on MOB's cell phone or start writing down times. MOB talked about feeling sick during the , and that just wants her cold or sinus infection to go away. MOB does report to have a good support system. This appeals writer inquired whether MOB will have any help today. So far today no one has been present to see MOB. MOB voiced that her mother is coming to visit but not sure where her mom is at. Let MOB know that manager social services would be back tomorrow to check in and see how MOB is going, that can go over resources later, as well as talk about mood and anxiety issues. MOB expressed that would be fine. Updated RN at about 1340. Per RN it is time for MOB to start feeding the baby again. RN busy with other patient care so this appeals writer offered to let MOB know. Updated MOB to approximate timeframe for last feeding, and that now it is 1400, so almost 4 hours so it is time to start feeding the baby. MOB?s face constricted. Asked MOB if MOB wants to feed the baby. MOB said yes but not sure if should give baby bottle. Asked MOB what MOB wants to do, to which MOB stated ?whatever he wants to do? and looked at the baby. This appeals writer let MOB know that it is her choice on how she feeds the baby, and that staff will support MOB in her choice. Asked MOB if she wants to breast feed, to which MOB said she would like to try. Suggested MOB try then, see how things go and if needed can talk to RN about whether a bottle is needed. MOB agreed. MOB made no move to get baby, so manager social services offered to give MOB the baby. MOB agreed, expressing thanks and stated it is hard to get up with her headache. Picked up baby and placed in MOB?s arms. MOB voiced that baby?s hands seem cold. Let MOB know that MOB may need to work on waking baby up to try and feed. Let MOB know that RN would be in soon to check on progress and assist with feeding as indicated. MOB voiced agreement. Updated RN. PLAN: Plan to follow up with MOB tomorrow and check on on status, provide resources as indicated. Will continue to follow, check in with nursing as to how MOB is learning care baby, whether MOB can self-initiate and express understanding of what has learned, as well as see if things change when MOB is feeling better and off of the IV. -NORMA Moore, [employer]
[2019-02-09] MEDS: Ketorolac 30 MG/ML Syringe IV ×2 (00:23→06:05)
[2019-02-09] MEDS: 0.9% Saline Lock 10 ML Syringe IV ×2 (00:23→06:07)
[2019-02-09 01:00] VITALS: BP 144/79; PULSE 106; RESP 18; TEMP 36.9
[2019-02-09 07:40] VITALS: BP 134/90; PULSE 96; RESP 17; TEMP 36.8
--- NOTE | 2019-02-09 08:13 | PCM.PN.OB ---
Patient Problems: Active and Suspected Problems (Last Reviewed 02/07/19 @ 09:33 by Maria Del Rosario Prieto) Preeclampsia, severe (Acute) Subjective: doing well, pain controlled no CP SOB N V ambulating well tolerating po lochia moderate, going well Slightly elevated BP but pain med given. Nasal congestion, urinary frequency/cath out recently - Physical Exam Vitals/I&O's: Vital Signs Temp Pulse Resp BP Pulse Ox 98.2 F 96 17 134/90 H 98 02/09/19 07:40 02/09/19 07:40 02/09/19 07:40 02/09/19 07:40 02/08/19 20:15 Oxygen Delivery Method Room Air Weight: 136 lb 10.986 oz Body Mass Index (BMI) 27.6 Intake and Output for Last 24 Hours 02/07/19 02/08/19 02/09/19 23:59 23:59 23:59 Intake Total 3740.00 / 3740.00 2283.76 / 2283.76 Output Total 1160 / 1160 3510 / 3510 Balance 2580.00 / 2580.00 -1226.24 / -1226.24 General: Alert, Oriented x3 Abdomen: Soft, Non-Distended, - - FF below U. Dressing dry and intact, small old drainage noted. Current Medications Acetaminophen (Tylenol) 1,000 mg PO Q8H PRN PRN Reason: Pain Score 1-3/10 Last Admin: 02/07/19 22:46 Dose: 1,000 mg Documented by: Bisacodyl (Dulcolax) 10 mg RECTAL UD PRN PRN Reason: If no BM Hydrocortisone (Hytone) 1 applic TOPICAL TID PRN PRN; Protocol PRN Reason: Discomfort Last Admin: 02/08/19 05:31 Dose: 1 applicatio Documented by: Naloxone HCl 4 mg/ Dextrose 504 mls @ 0 mls/hr IV .Q0M PRN; Protocol PRN Reason: To maintain Resp. rate >10 Naloxone HCl (Narcan) 0.02 mg IV Q1M PRN PRN Reason: RR <10 and pt unresponsive Naproxen (Naprosyn) 250 - 500 mg PO Q8H PRN PRN PRN Reason: Pain Score 1-3/10 Ondansetron HCl (Zofran) 4 mg IV Q4H PRN PRN PRN Reason: Nausea Last Admin: 02/08/19 05:30 Dose: 4 mg Documented by: Oxycodone HCl (Oxyir) 5 - 10 mg PO Q4H PRN PRN PRN Reason: Pain Score 4-10/10 Prochlorperazine Edisylate (Compazine Iv) 10 mg IV Q6H PRN PRN PRN Reason: NAUSEA Senna/Docusate Sodium (Senokot-S, Vianey-Colace) 0 tablet PO DAILY PRN PRN Reason: Constipation Simethicone (Mylicon) 80 mg PO PCHS PRN PRN Reason: Indigestion/stomach pain Last Admin: 02/07/19 23:05 Dose: 80 mg Documented by: Sodium Chloride () 5 - 15 ml IV UD PRN PRN Reason: SALINE FLUSH Last Admin: 02/09/19 06:07 Dose: 10 ml Documented by: Sodium Chloride ([place] Nasal [place]) 1 spray NASAL TID PRN PRN PRN Reason: NASAL DRYNESS Last Admin: 02/08/19 14:56 Dose: 1 spray Documented by: Medical Necessity - Tobacco Use Smoking Status: Never smoker Assessment/Plan All Active Problems (Last Reviewed 02/07/19 @ 09:33 by Maria Del Rosario Prieto) labor (Acute) Preeclampsia (Acute) Preeclampsia, severe (Acute) (Acute) Supervision of high risk , antepartum (Acute) Osteogenesis imperfecta (Acute) Abdominal pain affecting (Resolved) Decreased movement (Resolved) Missed (Resolved) (Resolved) Supervision of normal first (Resolved) Vaginal bleeding during (Resolved) s/p LTCS PPD # 2 1. routine post care 2. breast feeding- support given 3. rh positive 4. rubella immune 5. Reviewed urinary sx common after cath. Nurse will call if urgency, dysuria occur and do UA, culture 6. cool mist vaporizer if needed 7. recheck BP 1 hour-call if elevated
[2019-02-09 09:30] VITALS: BP 141/89; PULSE 102; RESP 18; O2SAT 96
[2019-02-09] MEDS: Labetalol 100 MG Tablet PO ×2 (10:57→22:11)
[2019-02-09] MEDS: Naproxen 250 MG Tablet PO ×2 (12:20→20:13)
[2019-02-09] MEDS: Senna/Docusate Sodium 1 Tablet PO (12:23)
[2019-02-09 12:30] VITALS: BP 158/92; PULSE 90; RESP 18; O2SAT 96
[2019-02-09] MEDS: oxyCODONE 5 MG Tablet PO (14:00)
--- NOTE | 2019-02-09 15:24 | NURSING ---
reviewed student charting and it is complete
--- NOTE | 2019-02-09 16:45 | CASEMGMT ---
Social Work Labor and Delivery Summary: [phone] Conferred with nursing staff today about how mother of baby (MOB) is doing with feedings and self-initiation of baby care. Discussed importance of encouraging MOB to provide care to baby. Updated received from Latasha Raymundo RN who reports that heard baby crying through the door and as crying went on for a time RN went to check on things and help MOB. MOB sitting in bed and baby crying in crib. RN helped MOB with breast feeding, though per RN there was not a lot of self-motivation shown by MOB regarding the feeding. RN reports baby needed to supplement with a bottle afterwards. MOB took a phone call from father of baby (FOB) at bottle feeding time, so RN ended up helping with this feeding due to MOB talking on the phone. RN reports that MOB has shared the FOB is going to be off work on Thursday. Concerns voiced at this point as to how much help MOB is going to have at discharge as at this time MOB is still requiring much encouragement and hands on support from RN. RN reports that when RN brought up about the diapers change, MOB did voice that she wanted to change the diapers and was able to do so with direction from RN. MOB does not have much background taking care of children so a lot of this is new. Made some calls today to the [facility] department inquiring whether osteogenesis imperfecta (OI) is an approved diagnosis for Children with medical Handicaps (CMH) program. Per public health nurse, Margi, this is and a public health nurse could come to see family to get things started. Note, did not give any identifying information, just general inquiry. 1435 Presented to MOB?s room to talk and to see if could observe MOB feeding the baby was due at 1430. MOB on the phone with her grandmother with baby in MOB?s arms, and as MOB continued to talk even with this life underwriter in the room this life underwriter informed MOB would be back in 15 minutes or so. MOB agreed. Checked in with RN who reports MOB was to supplement baby with bottle after cessation of this last feeding, and that baby was hungry so had fed before the 1430 time frame. RN reports that MOB was set up with a bottle and placed on the bedside crib to use. MOB also encouraged to pump after the bottle feeding is done to start stimulating milk production. 1505 MOB still on phone but got off the phone to talk to this life underwriter. MOB talkative with social science instructor and reported that just ?not sure? that breast feeding is what MOB wants to do anymore. MOB reports wanted to do it as knows it is healthy, but at the same time MOB reports feeling that feedings are not going well, and that won?t be able to get help from family and that father of baby (FOB) doesn?t know how to help MOB with breast feeding. MOB reports FOB got up a couple of times in the middle of the night to help change diapers and feed the baby bottles. MOB then stated, ?he makes me frustrated.? Explored as to who makes MOB frustrated, FOB or the baby. MOB reports the baby when the baby cries, won?t latch or eat. MOB reports to feel frustrated and confused, that does not know what to do. MOB then went on to talk about her own illnesses again, about her sinus infection and wanting relief from this, reporting perception that if can feel relief from the sinus infection could ?enjoy? the baby better. MOB also focused on belief that she currently has a yeast infection, that her vagina is burning and uncomfortable and this is bothersome to MOB as well. MOB reports the doctors won?t give MOB any medicine to help with things due to concern about MOB?s blood pressure raising. Guided conversation back to care of baby and feeding. MOB still holding the baby who was sleeping. The bottle that RN set up untouched. MOB reports that she thought to use the bottle only if the baby seemed hungry. This life underwriter asked about MOB starting to pump. MOB reports the RN is supposed to come in and help. This life underwriter called RN and confirmed what MOB is supposed to do with the bottle, and let RN know that baby appears to be sleeping. RN okay if MOB waits a little bit on the bottle. Let RN know that MOB seems to want/need help with getting pumping started. RN cam back to room shortly after and helped MOB set up the pump. RN removed baby to the bedside crib and MOB mentioned to the RN that baby may have messed his pants. RN checked this and then baby woke up and cried. MOB pumping so RN, with MOB?s permission, fed baby a small portion of the bottle. Baby then laid back in crib and slept. MOB continued to talk to this life underwriter while pumping. Educated MOB to some resources this life underwriter found that may help this family. MOB voice interest in hearing the information. During discussion, the FOB called in to check on things. MOB informed FOB that this life underwriter is in the room and that MOB will not make any decision without the FOB?s input. Educated MOB to: [facility] - home visiting and early intervention services, that with baby presumed to have OI the early intervention part may be of help to the family down the road. Initially MOB confirmed agreement with [facility] referral and then recanted and said that wants to talk things over with FOB. WIC - based on income that MOB has informed this life underwriter FOB to be making and based income chart this life underwriter has the family appears to qualify for [place]. MOB voiced much interest in this. CMH - that OI is an approved diagnosis for [facility] services, that there is a treatment and a diagnostic program, and that for not baby could likely get the diagnostic services. Educated to some things that [facility] helps with, which MOB voiced much agreement to. Educated that a public health nurse could come to MOB to do initial visit and help with paperwork. After agreeing, and after finding out that a home visit would be made, MOB voiced that wants to review with FOB. Medicaid - educated that family may just be over the income guidelines but it is close so may be of benefit to reapply for this to see if family can get extra help, plus CMH usually wants family to try for Medicaid too. depression - provided some verbal education to MOB on this and MOB listened intently. MOB asked what causes mood and anxiety issues, to which this life underwriter provided education on various factors. MOB voiced this date that MOB?s mom does have depression and some anxiety (not disclosed during initial assessment). Through discussion MOB voiced she and FOB are living separately right now, for the last 2 weeks due to heating unit in the home not working properly and having to use space heaters to warm the place. MOB reports the landlord does not seem to want to fix the problem. FOB is staying with his parents but reportedly visits with MOB daily. MOB is staying in her mother?s place and plans to take baby there at discharge. MOB reports FOB cannot stay with MOB due to MOB only having a twin bed and there not being enough room. MOB reports MOB?s boyfriend Dania is also in the home. MOB states that Najera treats MOB?s mom and the MOB pretty good. Asked MOB what kind of help MOB will have help in light of living separately from FOB. MOB?s reprots her mother is in a wheelchair due to OI and other issues. MOB reports her mom likes to hold the baby, but it is not clear to this life underwriter as to how much other hands on help MOB will receive other than holding the baby. MOB reports her mother is a good emotional support, and the person that MOB goes to when needs to talk. FOB?s grandparents entered the room then so this life underwriter left MOB written resources, encouraged MOB to talk over with FOB and this life underwriter will be back tomorrow. MOB agreed. Upon this life underwriter leaving the room, FOB was about to enter. Talked with FOB out in the hallway an introduced to self and role. Gave brief education on [facility], CMH and WIC. FOB reports it is up to MOB, whatever MOB wants to do. Asked FOB how he is doing with having a baby. FOB reports its all new and getting used to it. FOB reported that ?she was surprised? because FOB fed and changed the baby in the middle of the night. FOB reported that he told MOB that must adjust as parents now and that it was listen to baby cry all night or take care of the baby. FOB pleasant and had no questions for this life underwriter. Assessment: MOB continues to be pleasant and talkative. MOB held good eye contact. Affect constricted. MOB does ask questions, such as when to call the coil connector repairer, when to call WIC, what WIC will need, and what causes mood and anxiety issues. MOB providing some additional details this date about home situation and level of support at home. MOB is seeming to be struggling method of feeding and the emotions she is experiencing with caring for the baby as evidence by statements about being frustrated when baby cries, feeling confused and unsure what to do. MOB does make statement about wanting to enjoy baby but that cannot due to not feeling well. While MOB did hold the baby gently, not much other bonding cues noted (such as touching the baby, talking to baby or smiling/gazing at baby). Uncertain at this point if MOB has fed baby a bottle, as FOB did bottles overnight and then nursing helped with two bottles today. MOB would seem to benefit from continued teaching and encouragement to independent care of baby. MOB was receptive and voicing interest in resources this life underwriter provided but seemed to pull back after this life underwriter talked about visits being made to the home. Updated nursing staff and talked about encouraging MOB to provide care to baby, as well as to see if MOB can self-motivate to initiate care of baby. MOB is aware that baby needs to feed again around 1800. Plan: Continue to follow, see MOB again on 02.10.2019. -GISELE Moore, SALES DEVELOPMENT DIRECTOR
--- NOTE | 2019-02-09 16:56 | NURSING ---
1500 k shiv - social and human services assistant into see pt
--- NOTE | 2019-02-09 17:29 | NURSING ---
1730 pt and FOB both changing infants diaper
--- NOTE | 2019-02-09 18:37 | NURSING ---
1800 pt fed infant at 1730- 18 cc of formula
[2019-02-09 18:43] VITALS: BP 127/72; PULSE 96; RESP 16
--- NOTE | 2019-02-09 18:50 | NURSING ---
dr clay notified of pts c/o itching and burning in perineum area; states that she was treated with diflucan and it will take sometime for the medication to relieve the symptoms.
--- NOTE | 2019-02-09 18:52 | NURSING ---
pt up walking in halls
[2019-02-09 20:00] VITALS: BP 142/80; PULSE 98; RESP 18; TEMP 36.8
[2019-02-10 02:16] VITALS: BP 126/79; PULSE 88; RESP 18; TEMP 36.1
[2019-02-10] MEDS: Naproxen 250 MG Tablet PO ×2 (04:26→12:31)
--- NOTE | 2019-02-10 07:55 | PN.OBGYN_ITS ---
Patient Problems: Active and Suspected Problems (Last Reviewed 02/07/19 @ 09:33 by Maria Del Rosario Prieto) Preeclampsia, severe (Acute) Subjective: doing well, still with nasal congestion. pain controlled no CP SOB N V ambulating well tolerating po lochia moderate, has been difficult and plans to bottle feed. BP controlled with labetalol - Physical Exam Vitals/I&O's: Vital Signs Temp Pulse Resp BP Pulse Ox 97.0 F L 88 18 126/79 H 96 02/10/19 02:16 02/10/19 02:16 02/10/19 02:16 02/10/19 02:16 02/09/19 12:30 Oxygen Delivery Method Room Air Weight: 136 lb 10.986 oz Body Mass Index (BMI) 27.6 Intake and Output for Last 24 Hours 02/08/19 02/09/19 02/10/19 23:59 23:59 23:59 Intake Total 2283.76 / 2283.76 Output Total 3510 / 3510 Balance -1226.24 / -1226.24 General: Alert, Oriented x3 Abdomen: Soft, Non-Distended, - - FF below U. Dressing dry and intact Current Medications Acetaminophen (Tylenol) 1,000 mg PO Q8H PRN PRN Reason: Pain Score 1-3/10 Last Admin: 02/07/19 22:46 Dose: 1,000 mg Documented by: Bisacodyl (Dulcolax) 10 mg RECTAL UD PRN PRN Reason: If no BM Hydrocortisone (Hytone) 1 applic TOPICAL TID PRN PRN; Protocol PRN Reason: Discomfort Last Admin: 02/08/19 05:31 Dose: 1 applicatio Documented by: Naloxone HCl 4 mg/ Dextrose 504 mls @ 0 mls/hr IV .Q0M PRN; Protocol PRN Reason: To maintain Resp. rate >10 Labetalol HCl (Trandate) 100 mg PO BID GAMA Last Admin: 02/09/19 22:11 Dose: 100 mg Documented by: Naloxone HCl (Narcan) 0.02 mg IV Q1M PRN PRN Reason: RR <10 and pt unresponsive Naproxen (Naprosyn) 250 - 500 mg PO Q8H PRN PRN PRN Reason: Pain Score 1-3/10 Last Admin: 02/10/19 04:26 Dose: 500 mg Documented by: Ondansetron HCl (Zofran) 4 mg IV Q4H PRN PRN PRN Reason: Nausea Last Admin: 02/08/19 05:30 Dose: 4 mg Documented by: Oxycodone HCl (Oxyir) 5 - 10 mg PO Q4H PRN PRN PRN Reason: Pain Score 4-10/10 Last Admin: 02/09/19 14:00 Dose: 10 mg Documented by: Prochlorperazine Edisylate (Compazine Iv) 10 mg IV Q6H PRN PRN PRN Reason: NAUSEA Senna/Docusate Sodium (Senokot-S, Vianey-Colace) 0 tablet PO DAILY PRN PRN Reason: Constipation Last Admin: 02/09/19 12:23 Dose: 2 tablet Documented by: Simethicone (Mylicon) 80 mg PO PCHS PRN PRN Reason: Indigestion/stomach pain Last Admin: 02/07/19 23:05 Dose: 80 mg Documented by: Sodium Chloride () 5 - 15 ml IV UD PRN PRN Reason: SALINE FLUSH Last Admin: 02/09/19 06:07 Dose: 10 ml Documented by: Sodium Chloride ([place] Nasal [place]) 1 spray NASAL TID PRN PRN PRN Reason: NASAL DRYNESS Last Admin: 02/08/19 14:56 Dose: 1 spray Documented by: Medical Necessity - Tobacco Use Smoking Status: Never smoker Assessment/Plan All Active Problems (Last Reviewed 02/07/19 @ 09:33 by Maria Del Rosario Prieto) labor (Acute) Preeclampsia (Acute) Preeclampsia, severe (Acute) (Acute) Supervision of high risk , antepartum (Acute) Osteogenesis imperfecta (Acute) Abdominal pain affecting (Resolved) Decreased movement (Resolved) Missed (Resolved) (Resolved) Supervision of normal first (Resolved) Vaginal bleeding during (Resolved) s/p LTCS PPD # 3 1. routine post care 2. bottle feeding- support given 3. rh positive 4. rubella immune 5. SW consult complete 6. plans home today-Rx for labetalol for home use
[2019-02-10 08:15] VITALS: BP 146/82; PULSE 71; RESP 20; TEMP 36.4; O2SAT 97
--- NOTE | 2019-02-10 08:16 | DCINST_ITS ---
Additional Instructions: If you experience any of the following, contact your healthcare provider. * Bleeding that soaks a pad every hour for 2 hours * Fever 100.4 or higher * Unrelieved incision or abdominal pain * Swelling, redness, discharge or bleeding from your incision or episiotomy site * Your incision begins to separate * Problems urinating (including inability to urinate or burning while urinating). * Visual changes * Severe headache * Flu-like symptoms * Pain or redness in one of both of your breasts * Pain, warmth, tenderness or swelling in your legs, especially the calf area * Frequent nausea and vomiting * Symptoms of depression or anxiety If you experience any of the following, call 911 or go to the nearest Emergency Room. * Chest pain * Problems breathing * Seizure activity * Partial or complete paralysis of a body part, slurred speech, weakness or drooping of the face, or a sudden inability to walk or hold your balance Allergies/Adverse Reactions: Allergies No Known Allergies Allergy (Verified 02/07/19 09:34) Medications to take at Discharge vitamin#30 30 mg iron-10 mg iron-folic acid 1 mg-omg3 capsule 1 cap PO DAILY cap 03/02/18 albuterol sulfate 90 mcg/actuation breath activated powder inhaler 2 inh INHALATION Q6H 01/13/19 ranitidine 150 mg tablet 150 mg PO BID #180 tab 01/18/19 Amoxicillin/Potassium Clav [Augmentin 875-125 Tablet] 1 ea PO BID 02/02/19 Fluticasone 0.05% [Flonase Nasal [place]] 2 spray NASAL DAILY 02/02/19 Metronidazole 500 mg PO BID 02/02/19 Guaifenesin [Mucinex] 600 mg PO BID PRN 02/05/19 Labetalol [Trandate (Beta Ramin)] 100 mg PO BID #60 tab 02/10/19 Naproxen [Naprosyn] 500 mg PO BID PRN PRN #60 tab 02/10/19 Naproxen [Naprosyn] 500 mg PO BID PRN PRN #60 tab 02/10/19 Oxycodone HCl/Acetaminophen [Percocet 5/325] 1 - 2 tab PO Q4H PRN PRN 7 Days #28 tab 02/10/19 Oxycodone HCl/Acetaminophen [Percocet 5/325] 1 - 2 tab PO Q4H PRN PRN 7 Days #28 tab 02/10/19 The following prescriptions were given: Naproxen [Naprosyn] 500 mg PO BID PRN PRN #60 tab PRN Reason: Pain Transmission Status: Received by [facility]/pharmacy #[id number] Naproxen [Naprosyn] 500 mg PO BID PRN PRN #60 tab PRN Reason: Pain Transmission Status: Sent to [facility] Oxycodone HCl/Acetaminophen [Percocet 5/325] 1 - 2 tab PO Q4H PRN PRN 7 Days #28 tab PRN Reason: Pain Transmission Status: Pending to [facility]/pharmacy #[id number] Oxycodone HCl/Acetaminophen [Percocet 5/325] 1 - 2 tab PO Q4H PRN PRN 7 Days #28 tab PRN Reason: Pain Transmission Status: Sent to [facility] Labetalol [Trandate (Beta Ramin)] 100 mg PO BID #60 tab Transmission Status: Pending to [facility]acy #[id number] Follow-Up: Call to make an appointment with your doctor for an incision check in 1-2 weeks. You will also need a 6 week post- follow up appointment. Test results from this visit will be discussed in further detail at your follow- up appointment, if applicable. Primary Care Physician: Kathy Baca, FATIMAH-C [Primary Care Provider] -
--- NOTE | 2019-02-10 08:16 | PCM.DCCSEC ---
Additional Instructions: If you experience any of the following, contact your healthcare provider. Bleeding that soaks a pad every hour for 2 hours Fever 100.4 or higher Unrelieved incision or abdominal pain Swelling, redness, discharge or bleeding from your incision or episiotomy site Your incision begins to separate Problems urinating (including inability to urinate or burning while urinating). Visual changes Severe headache Flu-like symptoms Pain or redness in one of both of your breasts Pain, warmth, tenderness or swelling in your legs, especially the calf area Frequent nausea and vomiting Symptoms of depression or anxiety If you experience any of the following, call 911 or go to the nearest Emergency Room. Chest pain Problems breathing Seizure activity Partial or complete paralysis of a body part, slurred speech, weakness or drooping of the face, or a sudden inability to walk or hold your balance Allergies/Adverse Reactions: Allergies No Known Allergies Allergy (Verified 02/07/19 09:34) Medications to take at Discharge vitamin#30 30 mg iron-10 mg iron-folic acid 1 mg-omg3 capsule 1 cap PO DAILY cap 03/02/18 albuterol sulfate 90 mcg/actuation breath activated powder inhaler 2 inh INHALATION Q6H 01/13/19 ranitidine 150 mg tablet 150 mg PO BID #180 tab 01/18/19 Amoxicillin/Potassium Clav [Augmentin 875-125 Tablet] 1 ea PO BID 02/02/19 Fluticasone 0.05% [Flonase Nasal [place]] 2 spray NASAL DAILY 02/02/19 Metronidazole 500 mg PO BID 02/02/19 Guaifenesin [Mucinex] 600 mg PO BID PRN 02/05/19 Labetalol [Trandate (Beta Ramin)] 100 mg PO BID #60 tab 02/10/19 Naproxen [Naprosyn] 500 mg PO BID PRN PRN #60 tab 02/10/19 Naproxen [Naprosyn] 500 mg PO BID PRN PRN #60 tab 02/10/19 Oxycodone HCl/Acetaminophen [Percocet 5/325] 1 - 2 tab PO Q4H PRN PRN 7 Days #28 tab 02/10/19 Oxycodone HCl/Acetaminophen [Percocet 5/325] 1 - 2 tab PO Q4H PRN PRN 7 Days #28 tab 11/21/19 The following prescriptions were given: Naproxen [Naprosyn] 500 mg PO BID PRN PRN #60 tab PRN Reason: Pain Transmission Status: Received by [facility]/pharmacy #[id number] Naproxen [Naprosyn] 500 mg PO BID PRN PRN #60 tab PRN Reason: Pain Transmission Status: Sent to [facility] Oxycodone HCl/Acetaminophen [Percocet 5/325] 1 - 2 tab PO Q4H PRN PRN 7 Days #28 tab PRN Reason: Pain Transmission Status: Pending to [facility]/pharmacy #[id number] Oxycodone HCl/Acetaminophen [Percocet 5/325] 1 - 2 tab PO Q4H PRN PRN 7 Days #28 tab PRN Reason: Pain Transmission Status: Sent to [facility] Labetalol [Trandate (Beta Ramin)] 100 mg PO BID #60 tab Transmission Status: [id number] Follow-Up: Call to make an appointment with your doctor for an incision check in 1-2 weeks. You will also need a 6 week post- follow up appointment. Test results from this visit will be discussed in further detail at your follow-up appointment, if applicable. Primary Care Physician: Kathy Baca, FATIMAH-C [Primary Care Provider] -
--- NOTE | 2019-02-10 08:17 | PCM.DC.SUM ---
Discharge Date and Diagnosis - Problem List Patient Problems: Active and Suspected Problems (Last Reviewed 02/07/19 @ 09:33 by Maria Del Rosario Prieto) Preeclampsia, severe (Acute) Date of Admission: 02/07/19 - Primary Discharge Diagnosis Active and Suspected Problems (Last Reviewed 02/07/19 @ 09:33 by Maria Del Rosario Prieto) Preeclampsia, severe (Acute) Hospital Course and Treatment Operations: - - PLTCS Summary of Care Provided: The patient is a 23 year old F primary low transverse c section for preeclampsia. Routine postop course. BP controlled with labetalol 100mg bid No restrictions, regular diet. Patient Problems: Active and Suspected Problems (Last Reviewed 02/07/19 @ 09:33 by Maria Del Rosario Prieto) Preeclampsia, severe (Acute) - Physical Exam Vitals/I&O's: Vital Signs Temp Pulse Resp BP Pulse Ox 97.0 F L 88 18 126/79 H 96 02/10/19 02:16 02/10/19 02:16 02/10/19 02:16 02/10/19 02:16 02/09/19 12:30 Oxygen Delivery Method Room Air Weight: 136 lb 10.986 oz Body Mass Index (BMI) 27.6 Intake and Output for Last 24 Hours 02/08/19 02/09/19 02/10/19 23:59 23:59 23:59 Intake Total 2283.76 / 2283.76 Output Total 3510 / 3510 Balance -1226.24 / -1226.24 Current Medications Acetaminophen (Tylenol) 1,000 mg PO Q8H PRN PRN Reason: Pain Score 1-3/10 Last Admin: 02/07/19 22:46 Dose: 1,000 mg Documented by: Bisacodyl (Dulcolax) 10 mg RECTAL UD PRN PRN Reason: If no BM Hydrocortisone (Hytone) 1 applic TOPICAL TID PRN PRN; Protocol PRN Reason: Discomfort Last Admin: 02/08/19 05:31 Dose: 1 applicatio Documented by: Naloxone HCl 4 mg/ Dextrose 504 mls @ 0 mls/hr IV .Q0M PRN; Protocol PRN Reason: To maintain Resp. rate >10 Labetalol HCl (Trandate) 100 mg PO BID GAMA Last Admin: 02/09/19 22:11 Dose: 100 mg Documented by: Naloxone HCl (Narcan) 0.02 mg IV Q1M PRN PRN Reason: RR <10 and pt unresponsive Naproxen (Naprosyn) 250 - 500 mg PO Q8H PRN PRN PRN Reason: Pain Score 1-3/10 Last Admin: 02/10/19 04:26 Dose: 500 mg Documented by: Ondansetron HCl (Zofran) 4 mg IV Q4H PRN PRN PRN Reason: Nausea Last Admin: 02/08/19 05:30 Dose: 4 mg Documented by: Oxycodone HCl (Oxyir) 5 - 10 mg PO Q4H PRN PRN PRN Reason: Pain Score 4-10/10 Last Admin: 02/09/19 14:00 Dose: 10 mg Documented by: Prochlorperazine Edisylate (Compazine Iv) 10 mg IV Q6H PRN PRN PRN Reason: NAUSEA Senna/Docusate Sodium (Senokot-S, Vianey-Colace) 0 tablet PO DAILY PRN PRN Reason: Constipation Last Admin: 02/09/19 12:23 Dose: 2 tablet Documented by: Simethicone (Mylicon) 80 mg PO PCHS PRN PRN Reason: Indigestion/stomach pain Last Admin: 02/07/19 23:05 Dose: 80 mg Documented by: Sodium Chloride () 5 - 15 ml IV UD PRN PRN Reason: SALINE FLUSH Last Admin: 02/09/19 06:07 Dose: 10 ml Documented by: Sodium Chloride (Citrus Nasal [place]) 1 spray NASAL TID PRN PRN PRN Reason: NASAL DRYNESS Last Admin: 02/08/19 14:56 Dose: 1 spray Documented by: Home Medications: Medications to take at Discharge vitamin#30 30 mg iron-10 mg iron-folic acid 1 mg-omg3 capsule 1 cap PO DAILY cap 03/02/18 albuterol sulfate 90 mcg/actuation breath activated powder inhaler 2 inh INHALATION Q6H 01/13/19 ranitidine 150 mg tablet 150 mg PO BID #180 tab 01/18/19 Amoxicillin/Potassium Clav [Augmentin 875-125 Tablet] 1 ea PO BID 02/02/19 Fluticasone 0.05% [Flonase Nasal [place]] 2 spray NASAL DAILY 02/02/19 Metronidazole 500 mg PO BID 02/02/19 Guaifenesin [Mucinex] 600 mg PO BID PRN 02/05/19 Labetalol [Trandate (Beta Ramin)] 100 mg PO BID #60 tab 02/10/19 Naproxen [Naprosyn] 500 mg PO BID PRN PRN #60 tab 02/10/19 Naproxen [Naprosyn] 500 mg PO BID PRN PRN #60 tab 02/10/19 Oxycodone HCl/Acetaminophen [Percocet 5/325] 1 - 2 tab PO Q4H PRN PRN 7 Days #28 tab 02/10/19 Oxycodone HCl/Acetaminophen [Percocet 5/325] 1 - 2 tab PO Q4H PRN PRN 7 Days #28 tab 02/10/19 Following Prescrptions Were Given to Patient: Naproxen [Naprosyn] 500 mg PO BID PRN PRN #60 tab PRN Reason: Pain Transmission Status: Received by [facility]/pharmacy #[id number] Naproxen [Naprosyn] 500 mg PO BID PRN PRN #60 tab PRN Reason: Pain Transmission Status: Sent to [facility] Oxycodone HCl/Acetaminophen [Percocet 5/325] 1 - 2 tab PO Q4H PRN PRN 7 Days #28 tab PRN Reason: Pain Transmission Status: Pending to [facility]/pharmacy #[id number] Oxycodone HCl/Acetaminophen [Percocet 5/325] 1 - 2 tab PO Q4H PRN PRN 7 Days #28 tab PRN Reason: Pain Transmission Status: Sent to [facility] Labetalol [Trandate (Beta Ramin)] 100 mg PO BID #60 tab Transmission Status: Pending to [facility]/pharmacy #[id number] Primary Care Physician: Kathy Baca NP-C [Primary Care Provider] - Medical Necessity - Tobacco Use Smoking Status: Never smoker Meaningful Use Info Meaningful Use Diagnoses (Choose all that apply): None applicable
[2019-02-10] MEDS: Acetaminophen 500 MG Tablet 1000 MG PO (10:17)
[2019-02-10] MEDS: Labetalol 100 MG Tablet PO (10:24)
--- NOTE | 2019-02-10 11:00 | CASEMGMT ---
Social Work Labor and Delivery Summary: Chart reviewed and noted that mother of baby (MOB) did provide baby some care last evening. Spoke with Margi public health nurse from [facility] to obtain name and number for [facility] public Health nurse for Children with Medical Handicaps (CM[facility]) referral in [facility]. Touched based with Hoda Merino RN regarding how MOB has been doing. Per RN, report received that MOB started to do more overnight. Met with MOB in room. MOB up and walking around. MOB reports the night went okay, that baby woke up a few times and now the baby is sleeping when MOB is awake. Educated MOB that this is often the case and disrupted sleep is something that parents adjust to. Inquired how MOB felt when the baby cried. MOB reports it was better because she and the father ?tag team? and MOB is now feeding the baby a bottle. MOB correlates less personal frustration with feeding the baby when able to give baby a bottle. Explored with MOB that as MOB finds it helpful to have help with the baby at night, how this will be for MOB since father of baby (FOB) will not be around to help. MOB reports her mother?s boyfriend Najera probably help as Najera ?seems to like him,? (the baby). MOB reports Najera was very helpful to MOB when MOB had gallbladder surgery 2 years ago. MOB also reports that her mother likes to hold the baby and would be able to feed the baby a bottle. Talked with MOB about resources and referrals, as well as broached that FOB seemed okay with referrals when this technical proposal writer talked to FOB last evening. MOB repots that FOB is okay with referrals, but MOB is not sure if her mom is okay with it. MOB reports her mother Lucia has home health aides and nursing in and out of the home and just uncertain about having another person in the home. Informed MOB that no one will atmospheric physics professor ENMANUEL's mother, and that if MOB wants to talk about meeting [facility] and public health nurse elsewhere this is a possibility. MOB voiced agreement with referrals being made to [facility] and [facility] program. MOB verified address where she is living and address where FOB is living, as well as provided additional contact information if needed. Patient?s address: [address] [place], [place] [address], [place] [address] (this is Lucia?s home. MOB declines to give her address with FOB due to MOB getting mail at above listed address). [phone] FOB?s current address: [address] [place] [address]. [phone] Lucia Alvarez, MOB?s mother: [phone] Maty Diaz, MOB?s grandmother: [phone] Talked things through with MOB on child care attendant school needs. Feeding: MOB voices likely intent to just feed the baby a bottle as this is less stressful for MOB and MOB feels less frustrated. MOB reports she is keeping track of feedings by looking at the clock and then setting phone alarm for 3 hours later. MOB states FOB?s mother will buy a can of formula to hold family over until MOB can get into [place]. Baby care teaching: MOB self identifies that needs to learn how to do a bath, reports has changed some diapers, has learned how to feed a bottle, and reports that she needs to learn how to prepare formula yet. Baby's follow up: MOB self identifies need to have numbers for oil field roustabout and urology at [place]. MOB voicing need to have genetics information, to which this technical proposal writer informed MOB that per the record the baby seems to have a genetics appointment already made. Personal needs: MOB still voicing focus of concern on her sinuses but reports was told to wait it out or go to primary care. MOB reports to be concerned that maybe she does not have a yeast infection at this point but has a UTI. MOB describes difficulty urinating, burning sensation, not voiding much but still feeling like bladder is full. MOB clearly stating she desires to have a urinalysis before leaving today to rule this out, as wants this taken care of if does in fact have a UTI. MOB acknowledges this testing would help decreased anxiety. Spoke with RN about MOB?s questions about whether to go to follow up on Thursday and MOB?s voiced intention at this time to likely just bottle feed and not pump. will follow up with MOB. Spoke with Hoda HERNANDEZ about MOB?s voiced interest in learning and what needs to prepare for home going. Assessment: MOB continues to be pleasant and talkative. Affect brighter today, smiling more. MOB showing more engagement with baby this date. MOB sat beside baby, looked at baby, smiled at baby, told the baby he was cute, and told social service coordinator that the baby is ?a blessing.? MOB did put hand in crib a couple of times as well. Of note, MOB did try to keep putting the pacifier in baby?s mouth as baby was sleeping and made comment ?you keep acting like you want it,? and then spitting it out. Educated MOB that as baby is sleeping peacefully without a pacifier that this is okay. Educated that pacifiers are often used when babies are awake and having a difficulty with soothing. While MOB does seem to benefit from continued teaching, MOB is showing interest and identifying topics of learning as well as has followed through with ways to keep track of feeding times. MOB is showing ability to learn and follow directions. Concern still about level of support, though MOB reports to feel that her mother and mother?s boyfriend will be able to help as well as MOB is agreeing to supportive referrals such as [facility]. matrix worker talked through with MOB what MOB will do if starting to feel frustrated by baby?s crying or care of baby. MOB reports she would ask for help from other adults in the home or set baby down and walk away for a couple of minutes and ask for help. Plan: Will see MOB one more time before home going this date. -GISELE Moore, ASSOCIATE ATTORNEY
[2019-02-10 12:05] LABS: Color, Urine Yellow (Yellow); Glucose, Dipstick Normal (Normal); Ketone-Dipstick Negative (Negative); Leukocyte Esterase-Dipstick 25 /ul (Negative); Nitrite-Dipstick Negative (Negative); Occult Blood-Urine 250 /ul (Negative); Protein-Dipstick 30 mg/dl (Negative); Specific Gravity, Urine 1.015 (1.002-1.030); Urine Bilirubin Dipstick Negative (Negative); Urine Clarity Cloudy (Clear); Urine Urobilinogen Normal (Normal)
[2019-02-10 12:20] LABS: Amorphous Sediment 1+; Bacteria 2+ /hpf (None Seen); Mucous, Urine RARE /hpf (<or=2+); Red Blood Cells-Urine > 100 SEEN /hpf (0-5); Squamous Epithelial Cells - UA 5-10 SEEN /hpf (5-10); White Blood Cells 0-5 SEEN /hpf (0-5)
[2019-02-10 14:00] VITALS: BP 137/94; PULSE 88; RESP 19; TEMP 36.7; O2SAT 99
--- NOTE | 2019-02-10 16:32 | CASEMGMT ---
Social Work Labor and Delivery Summary: Called the [facility] Health Department at [phone] and left message for Cathryn Womack to call this securities underwriter back for referral. This securities underwriter was told that Cathryn is out of the building today. Will await a call back to complete referral. Met with mother of baby (MOB) this afternoon and informed about status of [facility] referral. Had MOB sign a release of information to the Health Department in case any documentation is needed regarding possible OI diagnosis. MOB agreed. MOB reports agreement to [facility] referral. At time of social work presentation MOB had not yet made follow up calls and was planning to do that. Let MOB known that word processor appointment needs to be made before going home. Father of baby (FOB) came in and was given the task to call and set appointment. FOB obtained follow up with [facility] office for 02.11.2019 at 1200. FOB reports he has taken tomorrow and Thursday off of work to help out. MOB reports to be excited to take baby home today. Assessment: MOB up and moving in the room. Smiling and attending to the baby. MOB reports she has received teaching desired and reports to have bottles at home. FOB?s mother is buying some formula. MOB reports knowledge of need to make the urology appointment for baby, and was able to tell this securities underwriter what date the genetics follow up is. MOB indicates feeling better about home going and about decision to bottle feed. MOB indicates to have a support system in place to help MOB should MOB start to feel overwhelmed. Interventions: [facility] Referral completed via the [facility]?s secure web based referral program. [facility]/public health nurse referral in progress. Medicaid and WIC applications provided. MOB states intention to follow up with both. [facility] resource lists given, shaken baby prevention, and safe sleeping brochures given. depression packet given. Much supportive encouragement, listening, reflection and reframing done with MOB. Education as needed regarding MOB?s questions voiced to this securities underwriter during this admission. Plan: MOB and baby to home at time of discharge with resources in place. -GISELE Moore, METAL PICKLING EQUIPMENT OPERATOR
--- NOTE | 2019-02-11 10:40 | CASEMGMT ---
Social Work Labor and Delivery Spoke with Cathryn Womack a public health nurse for Children with Medical Handicap program through the [facility]. Verbal referral given, and also faxed to confirmed fax the baby's discharge summary and record. Fax number is [phone]. Fax completed for continuity of care of this family. Brief maternal and infant histories provided for continuity of care. Cathryn reports will follow up with family. Cathryn noted that family would also benefit from WIC and a [facility] referral has been made. No other services requested. -GISELE Moore, COMMERCIAL LEASING MANAGER
== END 2019-02-10 16:43 | disposition home or self-care (01) | DRG 787 ==
LOC: WPOUT 11:02 → WP 11:02
PROVIDERS: Nurse Practitioner Women's Health; Admitting Provider Obstetrics & Gynecology; Family Provider Nurse Practitioner Family; PCP Nurse Practitioner Family; Referring Provider Obstetrics & Gynecology; Visit Provider Obstetrics & Gynecology
DX: O14.14 Severe pre-eclampsia complicating childbirth (principal); Q78.0 Osteogenesis imperfecta; O60.14X0 Preterm labor third trimester with preterm delivery third trimester, not applicable or unspecified; Z3A.36 36 weeks gestation of pregnancy; Z37.0 Single live birth
CPT/HCPCS: 59050; 80053; 81001; 81050; 82565; 82570; 82575; 84156; 84450; 84460; 84550; 85025; 85027; 85610; 85730; 86850; 86900; 86901; 87077; 87081; 87086; 87088; 87186; 87653; 99218; 99251; J7120; A4216; G0378; G0463; J2405

== ENCOUNTER → 2019-03-15 12:23 | Outpatient (CLI) | payer OTHER, SELFPAY ==
[2019-02-22 16:05] VITALS: BMI 28.0
== END ==
PROVIDERS: Family Provider Nurse Practitioner Family; PCP Nurse Practitioner Family; Referring Provider Otolaryngology Otolaryngology/Facial Plastic Surgery; Visit Provider Otolaryngology Otolaryngology/Facial Plastic Surgery
DX: J02.9 Acute pharyngitis, unspecified (principal)
CPT/HCPCS: 87070

== ENCOUNTER 2019-03-22 18:18 | Emergency (ER) | payer OTHER, SELFPAY ==
[2019-02-22 16:05] VITALS: BMI 28.0
[2019-03-22 18:19] VITALS: BP 147/95; PULSE 77; RESP 16; TEMP 36; O2SAT 97; BMI 23.6
--- NOTE | 2019-03-22 18:35 | ED.VISSUMM ---
- ER Visit Summary Date of Service: 03/22/19 Chief Complaint: Left shoulder and arm pain History of Present Illness: The patient is a 23 F who presents with left shoulder and arm pain that began after a fall today. Patient slipped on ice on her steps when she fell. Patient denies any head injury or loss of consciousness. Patient is concerned over possible fracture. Patient has a history of osteogenesis imperfecta. Patient states her pain is burning and throbbing. Patient states her pain is worse with any movement. Patient denies any paresthesias or weakness. Patient does admit to some mild left-sided neck pain as well. Physical Examination: Vital signs are stable. Patient is afebrile. Patient is in no acute distress. Musculoskeletal exam reveals tenderness over the left shoulder area including the distal clavicle. There is also tenderness over the left humerus. There is no deformity. There is no ecchymosis. There is some mild edema. Range of motion was limited in all motions of the left upper extremity secondary to pain. Radial pulses are equal bilaterally. Sensation was intact to light touch in the radial, median, and ulnar areas. Strength is 5/5 in the radial, median, and ulnar areas. Test Results: X-rays of the left humerus and left shoulder were obtained. There is no acute fracture. These were interpreted by the radiologist and myself. Emergency Department Course and Treatment: Patient was given a dose of [place] here. Patient felt better on reevaluation. Patient was instructed use ice to the area. Patient was instructed to use Tylenol or ibuprofen as needed for pain. Patient was instructed to follow-up with her primary care physician in 5 to 7 days. Patient understood and was agreeable with the plan. All questions were answered. Disposition: Discharge home Impression: Left shoulder contusion This note was generated with [employer] dictation software. It may contain incorrect words, spelling, and punctuation that were not noted in review of the chart prior to signing ED Disposition - Plan for ED Patient: Disposition: Home or Assisted Living Diagnosis: Contusion of left shoulder, initial encounter Instructions: CONTUSION, Upper Extremity Referrals: Kathy Baca, FATIMAH-C [Primary Care Provider] - 5-7 Days
--- NOTE | 2019-03-22 18:36 | RAD_ITS ---
STUDY: X-RAY - LEFT SHOULDER REASON FOR EXAM: Female, 23 years old. FELL DOWN STAIRS -- LIMITED MOVEMENT OF ARM TECHNIQUE: 2 view(s) of the shoulder. COMPARISON: None. FINDINGS: Normal glenohumeral articulation. Normal acromioclavicular joint. Normal acromion. Normal humeral head and visualized proximal humerus. The soft tissue structures are unremarkable. Normal visualized pulmonary apex. RAD/Shoulder min 2 Views IMPRESSION: Normal x-ray examination of the shoulder. Electronically Signed: Jean Pierre De Jesus MD at 19:26 EST , Service support ,
--- NOTE | 2019-03-22 18:44 | RAD_ITS ---
STUDY: X-RAY - LEFT HUMERUS REASON FOR EXAM: Female, 23 years old. FELL DOWN STAIRS -- LIMITED MOVEMENT OF ARM TECHNIQUE: 2 view(s) of the humerus. COMPARISON: None. FINDINGS: Normal visualized humerus. There is no demonstrated fracture or osseous destructive process. There is no demonstrated soft tissue abnormality. RAD/Humerus min 2 Views IMPRESSION: Normal x-ray examination of the left humerus. Electronically Signed: Steve Pizarro MD at 19:12 EST , Service support ,
[2019-03-22] MEDS: HYDROcodone Bitartrate/Apap 5/325 Tablet PO (18:59)
== END 2019-03-22 19:53 | disposition home or self-care (01) ==
PROVIDERS: Emergency Provider Emergency Medicine; Family Provider Nurse Practitioner Family; PCP Nurse Practitioner Family
DX: S40.012A Contusion of left shoulder, initial encounter (principal); W10.9XXA Fall (on) (from) unspecified stairs and steps, initial encounter; Y93.9 Activity, unspecified; Y92.9 Unspecified place or not applicable; Q78.0 Osteogenesis imperfecta; M41.9 Scoliosis, unspecified; I10 Essential (primary) hypertension; Z79.899 Other long term (current) drug therapy
CPT/HCPCS: 73030; 73060; 99283

== ENCOUNTER → 2019-04-05 13:51 | Outpatient (CLI) | payer OTHER, SELFPAY ==
[2019-04-05 09:02] VITALS: BMI 23.6
== END ==
PROVIDERS: Family Provider Nurse Practitioner Family; PCP Nurse Practitioner Family; Visit Provider Nurse Practitioner Women's Health
DX: R10.2 Pelvic and perineal pain (principal)
CPT/HCPCS: 87070; 87205

== ENCOUNTER 2019-04-11 19:37 | Emergency (ER) | payer OTHER, SELFPAY ==
[2019-04-05 09:02] VITALS: BMI 23.6
[2019-04-11 19:39] VITALS: BP 136/79; PULSE 104; RESP 16; TEMP 36.5; O2SAT 96; BMI 23.6
--- NOTE | 2019-04-11 20:26 | CT_ITS ---
STUDY: CT ABDOMEN AND PELVIS WITHOUT CONTRAST REASON FOR EXAM: Female, 23 years old. Right flank pain RADIATION DOSAGE (If Supplied By Facility): DLP = ( 272.34 ) mGycm TECHNIQUE: Transaxial images were obtained from the dome of the diaphragm to the symphysis pubis without oral contrast, and without intravenous contrast. Sagittal and coronal images were reconstructed. Individualized dose optimization techniques were used for this CT. COMPARISON: None. FINDINGS: Evaluation of the abdominal viscera is limited in the absence of intravenous contrast. The visualized lung bases are clear. The visualized portions of the heart and pericardium are within normal limits. The gallbladder has been removed. The liver demonstrates an unremarkable unenhanced appearance. The spleen is normal in size. The pancreas demonstrates an unremarkable unenhanced appearance. The adrenal glands are within normal limits. There are no obstructing renal stones. There is no hydronephrosis. Normal visualized stomach. There is no bowel obstruction or inflammation. Prominent stool is present throughout the colon. The appendix is normal. The aorta is normal in caliber. There is no abdominal or pelvic free air, free fluid, fluid collection or lymphadenopathy. There are no destructive osseous lesions. CT/Abdomen/Pelvis without Cont IMPRESSION: No acute abdominal or pelvic pathology demonstrated on this noncontrast CT. Prominent stool throughout the colon. Electronically Signed: Jesús Oconnell, at 21:34 EST Tel , Service support ,
--- NOTE | 2019-04-11 20:27 | ED.DCSUM_ITS ---
History of Present Illness Chief Complaint: Abd Pain Informant: Patient Onset: Yesterday Context: Gradual Onset Timing: Waxes and wanes Current Severity: Mild Maximum Severity: Moderate Narrative: She presents with right mid abdominal pain that wraps toward the right kidney. Symptoms started yesterday. She has had nausea and vomiting but no diarrhea. She denies urinary symptoms. Past abdominal surgical history is significant for and cholecystectomy. - Past Medical History (1) Osteogenesis imperfecta Status: Chronic Comment: will get [facility] consult. co-manage care with [facility]. growth q 4 wks, further genetic testing with [facility], anatomy scan with [facility] @18 wks, nutrition consult with [facility], C/S @ 39 wks, skeletal scan after delivery,, maternal echocardiogram Past Medical History - Allergies and Home Meds Allergies/Adverse Reactions: Allergies No Known Allergies Allergy (Verified 04/11/19 19:38) Prior records reviewed: Yes Surgical History: cholecystectomy, - - Lives: With Family Smoking Status: Never smoker Review of Systems General: Denies: Chills, Fever Eyes: Denies: Visual changes - bilaterally ENT: Denies: Bilateral ear pain Cardiovascular: Denies: Chest pain Respiratory: Denies: Dyspnea Gastrointestinal: Reports: Abdominal pain, Nausea, Vomiting. Denies: Diarrhea Genitourinary: Denies: Dysuria Musculoskeletal: Reports: Back pain - Right flank Skin: Denies: Rash Neurological: Denies: Headache Allergy: Denies: Uticaria Physical Exam Vital Signs/Narrative: Vital Signs Temp Pulse Resp BP Pulse Ox 04/11/19 19:39 97.7 F L 104 H 16 136/79 H 96 Inital Vital Signs reviewed: Yes General: Well nourished, Well developed ENT: Moist mucous membranes Neck: Supple Cardiovascular: Regular rate, Regular rhythm Respiratory: No distress, CTA bilaterally Abdomen: Soft, Tender - Mild right lower quadrant tenderness palpation.. Negative for: Guarding, Rebound tenderness Back: CVA tenderness - Right CVA tenderness Extremities: Nontender Skin: Normal color Neurological: Alert, Oriented x3 Psychological: Normal affect Diagnostic/Tx/Re-eval Impressions Abdomen/Pelvis CT 04/11/19 20:26 IMPRESSION: No acute abdominal or pelvic pathology demonstrated on this noncontrast CT. Prominent stool throughout the colon. Electronically Signed: Jesús Oconnell, at 21:34 EST Tel , Service support , 04/11/19 20:26 Abdomen/Pelvis without Cont [CT] Stat Laboratory Results 04/11/19 04/11/19 04/11/19 20:35 20:35 20:37 WBC 11.7 H RBC 4.74 Hgb 14.0 Hct 42.3 MCV 89.2 MCH 29.5 MCHC 33.1 RDW Std Deviation 39.4 RDW Coeff of Sharmin 12.0 Plt Count 356 MPV 10.1 Immature Gran % (Auto) 0.300 Neut % (Auto) 68.1 Lymph % (Auto) 22.2 [place] % (Auto) 7.0 Eos % (Auto) 1.8 Baso % (Auto) 0.6 Absolute Neuts (auto) 8.0 H Absolute Lymphs (auto) 2.60 Nucleated RBC % 0 Sodium Potassium Chloride Carbon Dioxide Anion Gap BUN Creatinine Estim Creat Clear Calc Est GFR (MDRD) Af Amer Est GFR (MDRD) Non-Af BUN/Creatinine Ratio Glucose Calcium Total Bilirubin Direct Bilirubin AST ALT Alkaline Phosphatase Total Protein Albumin Globulin Lipase Urine Color Yellow Urine Clarity Clear Urine pH 6.0 Ur Specific [place] 1.015 Urine Protein 15 H Urine Glucose (UA) Normal Urine Ketones Negative Urine Occult Blood Negative Urine Nitrite Negative Urine Bilirubin Negative Urine Urobilinogen Normal Ur Leukocyte Esterase Negative Urine RBC 0 SEEN Urine WBC 0-5 SEEN Ur Squamous Epith Cells 0-5 SEEN Urine Bacteria 0 SEEN Urine Mucus 0 SEEN Urine Test Negative 04/11/19 20:37 WBC RBC Hgb Hct MCV MCH MCHC RDW Std Deviation RDW Coeff of Sharmin Plt Count MPV Immature Gran % (Auto) Neut % (Auto) Lymph % (Auto) [place] % (Auto) Eos % (Auto) Baso % (Auto) Absolute Neuts (auto) Absolute Lymphs (auto) Nucleated RBC % Sodium 141 Potassium 3.8 Chloride 109 H Carbon Dioxide 27.0 Anion Gap 5 BUN 11 Creatinine 0.74 Estim Creat Clear Calc 99.90 Est GFR (MDRD) Af Amer 126 Est GFR (MDRD) Non-Af 104 BUN/Creatinine Ratio 14.9 Glucose 75 Calcium 8.9 Total Bilirubin 0.30 Direct Bilirubin 0.11 AST 36 ALT 94 H Alkaline Phosphatase 162 H Total Protein 8.1 Albumin 3.9 Globulin 4.2 Lipase 127 Urine Color Urine Clarity Urine pH Ur Specific [place] Urine Protein Urine Glucose (UA) Urine Ketones Urine Occult Blood Urine Nitrite Urine Bilirubin Urine Urobilinogen Ur Leukocyte Esterase Urine RBC Urine WBC Ur Squamous Epith Cells Urine Bacteria Urine Mucus Urine Test - Medical Decision Making She was given Toradol and IV fluids along with Zofran. On repeat evaluation she is resting comfortably. Test results are discussed with her. At this time I will give her prescription for MiraLAX. She is to follow with her primary care physician. ED Disposition - Plan for ED Patient: Disposition: Home or Assisted Living Diagnosis: Abdominal pain, Constipation Instructions: ABDOMINAL PAIN, Unknown Cause, (Female), CONSTIPATION (Adult) Prescriptions: Polyethylene Glycol 3350 [Miralax] 17 gm PO DAILY #30 packet Transmission Status: Received by [facility]/pharmacy #[id number] Additional Instructions: Follow-up with your physician in 1 week if not improved. Return for fever, worsened symptoms, or if any other concerns arise.
[2019-04-11] MEDS: Ketorolac 30 MG/ML Syringe IV (20:39)
[2019-04-11] MEDS: 0.9% Normal Saline 1,000 ML 150 ML IV (20:40)
[2019-04-11 20:54] LABS: Bacteria 0 SEEN /hpf (None Seen); Mucous, Urine 0 SEEN /hpf (<or=2+); Red Blood Cells-Urine 0 SEEN /hpf (0-5)
[2019-04-11 20:56] LABS: Basophil# 0.07 X10^3/uL; Basophil% 0.6 % (0-1); Eosinophil# 0.21 X10^3/uL; Eosinophils% 1.8 % (0-5); Hematocrit 42.3 % (37-47); Lymphocyte % 22.2 % (19-41); Mean Corp Hgb Conc 33.1 g/dL (32-36); Mean Corpuscular Hgb 29.5 pg (27.0-32.0); Mean Corpuscular Volume 89.2 fL (81-99); Mean Platelet Vol. 10.1 fl (6.2-12.0); Monocyte# 0.82 X10^3/uL; NRBC Flagged by Analyzer 0 % (0-5); Neutrophil # 7.98 X10^3/uL (2.7-7.7); Neutrophil % 68.1 % (47-70); Platelet Count 356 K/mm3 (150-450); RBC Distribution Width SD 39.4 fl (35.1-43.9); Red Blood Count 4.74 M/mm3 (4.2-5.4); White Blood Count 11.7 K/mm3 (4.4-11.0)
[2019-04-11 20:57] LABS: Color, Urine Yellow (Yellow); Glucose, Dipstick Normal (Normal); Ketone-Dipstick Negative (Negative); Leukocyte Esterase-Dipstick Negative /ul (Negative); Nitrite-Dipstick Negative (Negative); Occult Blood-Urine Negative /ul (Negative); Protein-Dipstick 15 mg/dl (Negative); Specific Gravity, Urine 1.015 (1.002-1.030); Urine Bilirubin Dipstick Negative (Negative); Urine Clarity Clear (Clear); Urine Urobilinogen Normal (Normal)
[2019-04-11 21:03] LABS: Internal QC Validated? YES +Cl - CLEAR BKGD; Pregnancy, Urine Negative Negative
[2019-04-11 21:16] LABS: Squamous Epithelial Cells - UA 0-5 SEEN /hpf (5-10)
[2019-04-11 21:17] LABS: White Blood Cells 0-5 SEEN /hpf (0-5)
[2019-04-11 21:19] LABS: AST(SGOT) 36 U/L (15-37); Alanine Aminotransfer ALT/SGPT 94 U/L (13-56); Albumin, Serum 3.9 g/dL (3.2-5.0); Alkaline Phosphatase 162 U/L (45-117); Anion Gap 5 (5-15); BUN 11 mg/dL (7-18); BUN/Creat Ratio 14.9 RATIO (10-20); Bilirubin, Direct 0.11 mg/dL (0.00-0.30); Calcium,Total 8.9 mg/dL (8.5-10.1); Chloride 109 mmol/L (98-107); Creatinine, Serum 0.74 mg/dL (0.55-1.02); EST Glomerular Filtration Rate 104 mL/min (>60); Est Glom Filt Rate - Afr Amer 126 mL/min (>60); Globulin 4.2 g/dL (2.2-4.2); Glucose 75 mg/dL (74-106); Lipase 127 U/L (73-393); Potassium 3.8 mmol/L (3.5-5.1); Protein, Total 8.1 g/dL (6.4-8.2); Sodium Level 141 mmol/L (136-145)
[2019-04-11 22:34] VITALS: BP 115/75; PULSE 81; RESP 16; O2SAT 98
== END 2019-04-11 22:55 | disposition home or self-care (01) ==
PROVIDERS: Emergency Provider Emergency Medicine; PCP Family Medicine
DX: R10.9 Unspecified abdominal pain (principal); K59.00 Constipation, unspecified; Z90.49 Acquired absence of other specified parts of digestive tract; Q78.0 Osteogenesis imperfecta
CPT/HCPCS: 74176; 80048; 80076; 81001; 81025; 83690; 85025; 96361; 96374; 99283; J7030; A4216

== ENCOUNTER 2019-06-04 19:29 | Emergency (ER) | payer OTHER, SELFPAY ==
[2019-04-13 15:13] VITALS: BMI 23.6
[2019-06-04 19:30] VITALS: BP 146/84; PULSE 101; RESP 18; TEMP 37.1; O2SAT 99; BMI 23.8
[2019-06-04 19:41] VITALS: O2SAT 98
--- NOTE | 2019-06-04 19:50 | EKG12_ITS ---
Test Reason : CP/SOB Blood Pressure : / mmHG Vent. Rate : 091 BPM Atrial Rate : 091 BPM P-R Int : 126 ms QRS Dur : 084 ms QT Int : 356 ms P-R-T Axes : 052 026 055 degrees QTc Int : 437 ms Normal sinus rhythm Normal ECG Confirmed by GIOVANI MORROW ([id number]), supervising editor news reel BRANDT GO ([id number]) on 06/09/2019 9:20:51 AM Referred By: ROGERIO Confirmed By:GIOVANI MORROW
--- NOTE | 2019-06-04 19:55 | ED.DCSUM_ITS ---
- ER Visit Summary Date of Service: 06/04/19 Chief Complaint: Cough History of Present Illness: The patient is a 23 F who presents with a cough that is been getting worse over the past week. Patient states it is gradually gotten worse. Patient states she does have some pain in her chest and upper back when she coughs. Patient denies any sputum production. Patient states her temperature at home was 100.2. Patient took Tylenol prior to arrival. Patient denies any nausea or vomiting. Patient denies any shortness of breath. Physical Examination: Vital signs are stable. Patient is afebrile here. Patient is in no acute distress. Oral mucosa is pink and moist. Neck is suppl e. Trachea is midline. There is no JVD. Heart was regular rate and rhythm. Lungs are clear and equal bilaterally. Abdomen is soft. Bowel sounds are normal. There is no tenderness. Cranial nerves II through XII are intact. There are no focal motor or sensory deficits noted. Extremities are intact. There is no calf tenderness or edema. Test Results: EKG shows a normal sinus rhythm with a rate of 91. There are no acute ST or T wave changes. CBC and comprehensive metabolic profile were within normal limits. Flu swab was negative. Troponin was normal. PA and lateral chest x-ray was obtained. There is no acute cardiopulmonary process. This was interpreted by the radiologist and myself. Emergency Department Course and Treatment: Patient was advised of her findings. Patient was instructed to rest at home. Patient was instructed to take Tylenol or ibuprofen as needed for fevers. Patient was instructed to follow-up with her primary care physician in 7 to 10 days. Patient understood and was agreeable with the plan. All questions were answered. Disposition: Discharge home Impression: Viral upper respiratory infection This note was generated with [employer] dictation software. It may contain incorrect words, spelling, and punctuation that were not noted in review of the chart prior to signing ED Disposition - Plan for ED Patient: Disposition: Home or Assisted Living Diagnosis: Viral upper respiratory tract infection with cough Instructions: URI, Viral, No Abx (Adult) Referrals: Beryl Islas DO [Primary Care Provider] - 5-7 Days
[2019-06-04 20:17] LABS: Absolute Lymphocyte Count 1.99 X10^3/uL (0.83-4.51); Absolute Neutrophil Count 4.8 X10^3/uL (2.0-7.7); Basophil# 0.06 X10^3/uL; Basophil% 0.8 % (0-1); Eosinophil# 0.12 X10^3/uL; Eosinophils% 1.6 % (0-5); Hematocrit 44.4 % (37-47); Hemoglobin 14.7 g/dL (12.0-15.0); Lymphocyte # 1.99 X10^3/ul (4.0); Lymphocyte % 26.5 % (19-41); Mean Corp Hgb Conc 33.1 g/dL (32-36); Mean Corpuscular Hgb 29.4 pg (27.0-32.0); Mean Corpuscular Volume 88.8 fL (81-99); Mean Platelet Vol. 10.3 fl (6.2-12.0); Monocyte# 0.54 X10^3/uL; Monocyte% 7.2 % (0-10); NRBC Flagged by Analyzer 0 % (0-5); Neutrophil # 4.76 X10^3/uL (2.7-7.7); Neutrophil % 63.4 % (47-70); Platelet Count 306 K/mm3 (150-450); RBC Distribution Width CV 11.9 % (11.6-14.6); RBC Distribution Width SD 38.6 fl (35.1-43.9); White Blood Count 7.5 K/mm3 (4.4-11.0)
--- NOTE | 2019-06-04 20:25 | RAD_ITS ---
STUDY: X-RAY CHEST REASON FOR EXAM: Female, 23 years old. PT C/O COUGH, SORE THROAT, CHEST PAIN, AND BACK PAIN TECHNIQUE: PA and lateral chest COMPARISON: . FINDINGS: The lungs are clear and expanded. There is no demonstrated pleural abnormality. There is right upper lobe bulla. There is stable significant thoracic dextroscoliosis Normal size heart. Normal mediastinum and ben. Normal visualized pulmonary arteries. Normal visualized aortic arch and descending thoracic aorta. Normal visualized thoracic spine. Normal visualized ribs, clavicles, and shoulders. There is no demonstrated abnormality of the visualized soft tissue structures of the upper abdomen. There are surgical clips within the right upper quadrant from prior cholecystectomy. RAD/Chest PA and Lateral IMPRESSION: No acute process Stable significant thoracic dextroscoliosis, follow-up scoliosis series as an outpatient with clinical follow-up recommended Stable right upper lobe bulla Surgical clips within the right upper quadrant from prior cholecystectomy. Electronically Signed: Raf Fox, at 21:15 EDT Tel , Service support ,
[2019-06-04 20:36] LABS: ALB/GLOB Ratio 0.9 RATIO (0.9-2.4); AST(SGOT) 19 U/L (15-37); Alanine Aminotransfer ALT/SGPT 37 U/L (13-56); Albumin, Serum 3.7 g/dL (3.2-5.0); Alkaline Phosphatase 167 U/L (45-117); Anion Gap 6 (5-15); BUN 10 mg/dL (7-18); Calcium,Total 8.4 mg/dL (8.5-10.1); Chloride 109 mmol/L (98-107); Creatinine, Serum 0.63 mg/dL (0.55-1.02); EST Glomerular Filtration Rate 125 mL/min (>60); Est Glom Filt Rate - Afr Amer 152 mL/min (>60); Globulin 3.9 g/dL (2.2-4.2); Glucose 88 mg/dL (74-106); Potassium 3.7 mmol/L (3.5-5.1); Protein, Total 7.6 g/dL (6.4-8.2); Sodium Level 140 mmol/L (136-145)
[2019-06-04 21:24] VITALS: BP 135/86; PULSE 86; RESP 17; TEMP 37.2; O2SAT 97
[2019-06-04 21:32] VITALS: BP 107/71; PULSE 75; RESP 21; O2SAT 99
== END 2019-06-04 21:32 | disposition home or self-care (01) ==
PROVIDERS: Emergency Provider Emergency Medicine; PCP Family Medicine
DX: J06.9 Acute upper respiratory infection, unspecified (principal); Z90.49 Acquired absence of other specified parts of digestive tract; M41.9 Scoliosis, unspecified
CPT/HCPCS: 71046; 80053; 84484; 85025; 87804; 93005; 99285; A4216

== ENCOUNTER 2019-06-06 14:50 | Emergency (ER) | payer OTHER, SELFPAY ==
[2019-06-06 14:13] VITALS: BMI 23.8
[2019-06-06 14:51] VITALS: BP 119/77; PULSE 102; RESP 14; TEMP 36.4; O2SAT 98; BMI 23.3
--- NOTE | 2019-06-06 15:06 | CT_ITS ---
STUDY: CT ABDOMEN AND PELVIS WITH CONTRAST REASON FOR EXAM: Female, 23 years old. RT SIDED ABD PAIN, N/D RADIATION DOSAGE (If Supplied By Facility): CTDIvol = ( 12.89 ) mGy, DLP = ( 446.31 ) mGycm TECHNIQUE: Transaxial images were obtained from the dome of the diaphragm to the symphysis pubis with oral contrast. 100mL Isovue-300 was administered. Sagittal and coronal images were reconstructed. Individualized dose optimization techniques were used for this CT. COMPARISON: April 11, 2019 FINDINGS: The visualized lung bases are unremarkable. The visualized portions of the heart are within normal limits. There is hepatomegaly with diffuse hepatic enlargement. There are surgical clips in the gallbladder fossa consistent with a prior cholecystectomy. Normal spleen. Normal pancreas. Normal bilateral adrenal glands. Normal right kidney. Normal left kidney. Normal visualized stomach. Normal small intestine. There is mild wall thickening of the colon with enhancement in the sigmoid region. The appendix is visualized and appears normal. Normal abdominal aorta. Normal inferior vena cava. Normal retroperitoneum. Normal urinary bladder. Normal visualized uterus. There is no free fluid in the abdomen or pelvis. Normal abdominal wall. Normal osseous structures. CT/Abdomen/Pelvis WITH Contrast IMPRESSION: Colitis with wall thickening and enhancement could be infectious or inflammatory. No obstruction. Hepatomegaly. Prior cholecystectomy. No biliary dilatation. Electronically Signed: Cliff Hill MD at 17:47 EDT , Service support ,
--- NOTE | 2019-06-06 15:07 | ED.VIS.GEN ---
History of Present Illness Chief Complaint: Abd Pain Informant: Patient Onset: Days - 4 days Context: Gradual Onset Current Severity: Mild Maximum Severity: Moderate Narrative: Patient presents with 4-day history of right-sided abdominal pain. She describes the pain as sharp. She reports a fever of 101.4 prior to taking Tylenol this afternoon. She denies urinary symptoms. She denies possibility of . She was sent by [facility] to rule out appendicitis. Patient does complain of diarrhea. She states she has been taking antidiarrheal pills without improvement in her symptoms. - Past Medical History (1) Osteogenesis imperfecta Status: Chronic Comment: will get [facility] consult. co-manage care with [facility]. growth q 4 wks, further genetic testing with [facility], anatomy scan with M @18 wks, nutrition consult with [facility], C/S @ 39 wks, infant skeletal scan after delivery,, maternal echocardiogram (2) Hx of cholecystectomy Status: Chronic Past Medical History - Allergies and Home Meds Allergies/Adverse Reactions: Allergies No Known Allergies Allergy (Verified 06/06/19 14:51) Primary Care Physician: Beryl Islas DO [Primary Care Provider] - Prior records reviewed: Yes Surgical History: cholecystectomy, - - Lives: With Family Smoking Status: Never smoker Review of Systems General: Reports: Fever. Denies: Chills Eyes: Denies: Visual changes - bilaterally ENT: Denies: Bilateral ear pain Cardiovascular: Denies: Chest pain Respiratory: Denies: Dyspnea, Cough Gastrointestinal: Reports: Abdominal pain, Diarrhea. Denies: Nausea, Vomiting Genitourinary: Denies: Dysuria, Hematuria Musculoskeletal: Denies: Extremity Pain Skin: Denies: Rash Neurological: Denies: Headache Allergy: Denies: Uticaria Physical Exam Vital Signs/Narrative: Vital Signs Temp Pulse Resp BP Pulse Ox 06/06/19 14:51 97.5 F L 102 H 14 119/77 98 Inital Vital Signs reviewed: Yes General: Well nourished, Well developed Head: Normocephalic ENT: Moist mucous membranes Neck: Supple Cardiovascular: Regular rate, Regular rhythm Respiratory: No distress, CTA bilaterally Abdomen: Soft, Tender - Mild tenderness to the right lower quadrant., Hypoactive bowel sounds. Negative for: Guarding, Rebound tenderness Extremities: Nontender Skin: Normal color Neurological: Alert, Oriented x3 Psychological: Normal affect Diagnostic/Tx/Re-eval Impressions Abdomen/Pelvis CT 06/06/19 15:06 IMPRESSION: Colitis with wall thickening and enhancement could be infectious or inflammatory. No obstruction. Hepatomegaly. Prior cholecystectomy. No biliary dilatation. Electronically Signed: Cliff Hill MD at 17:47 EDT , Service support , 06/06/19 15:06 Abdomen/Pelvis WITH Contrast [CT] Stat Laboratory Results 06/06/19 06/06/19 06/06/19 15:14 15:14 15:14 WBC 10.5 RBC 4.79 Hgb 14.1 Hct 41.4 MCV 86.4 MCH 29.4 MCHC 34.1 RDW Std Deviation 37.7 RDW Coeff of Sharmin 11.9 Plt Count 313 MPV 10.3 Immature Gran % (Auto) 0.300 Neut % (Auto) 78.0 H Lymph % (Auto) 13.4 L [place] % (Auto) 6.8 Eos % (Auto) 1.0 Baso % (Auto) 0.5 Absolute Neuts (auto) 8.2 H Absolute Lymphs (auto) 1.41 Nucleated RBC % 0 Sodium 141 Potassium 3.7 Chloride 111 H Carbon Dioxide 23.0 Anion Gap 7 BUN 12 Creatinine 0.72 Estim Creat Clear Calc 101.58 Est GFR (MDRD) Af Amer 129 Est GFR (MDRD) Non-Af 107 BUN/Creatinine Ratio 16.7 Glucose 102 Calcium 8.7 Serum , Qual NEGATIVE Urine Color Urine Clarity Urine pH Ur Specific [place] Urine Protein Urine Glucose (UA) Urine Ketones Urine Occult Blood Urine Nitrite Urine Bilirubin Urine Urobilinogen Ur Leukocyte Esterase Urine RBC Urine WBC Ur Squamous Epith Cells Urine Bacteria Urine Mucus 06/06/19 15:18 WBC RBC Hgb Hct MCV MCH MCHC RDW Std Deviation RDW Coeff of Sharmin Plt Count MPV Immature Gran % (Auto) Neut % (Auto) Lymph % (Auto) [place] % (Auto) Eos % (Auto) Baso % (Auto) Absolute Neuts (auto) Absolute Lymphs (auto) Nucleated RBC % Sodium Potassium Chloride Carbon Dioxide Anion Gap BUN Creatinine Estim Creat Clear Calc Est GFR (MDRD) Af Amer Est GFR (MDRD) Non-Af BUN/Creatinine Ratio Glucose Calcium Serum , Qual Urine Color Yellow Urine Clarity Clear Urine pH 5.0 Ur Specific [place] 1.025 Urine Protein 30 H Urine Glucose (UA) Normal Urine Ketones 5 H Urine Occult Blood Negative Urine Nitrite Negative Urine Bilirubin Negative Urine Urobilinogen Normal Ur Leukocyte Esterase Negative Urine RBC 0 SEEN Urine WBC 0 SEEN Ur Squamous Epith Cells 0 SEEN Urine Bacteria RARE Urine Mucus 0 SEEN - Medical Decision Making Was given IV fluids along with a small dose of morphine and Zofran. This is followed by dose of Toradol and Phenergan. CT results are discussed with her. She does have evidence of colitis. No evidence of appendicitis. She be treated with Cipro and Flagyl, first doses given here. I will also write her for Bentyl. ED Disposition - Plan for ED Patient: Disposition: Home or Assisted Living Diagnosis: Colitis Instructions: GASTROENTERITIS, Bacterial (Child) (Adult) Prescriptions: Dicyclomine HCl [Bentyl] 20 mg PO TIDAC #20 cap Transmission Status: Pending to [id number] Ciprofloxacin [Cipro] 500 mg PO BID #14 tab Transmission Status: P[facility] to [id number] metroNIDAZOLE [Flagyl] 500 mg PO Q6H #40 tab Transmission Status: Pending to [id number] Referrals: Beryl Islas DO [Primary Care Provider] - 1 Week
[2019-06-06 15:25] LABS: Mucous, Urine 0 SEEN /hpf (<or=2+); Red Blood Cells-Urine 0 SEEN /hpf (0-5); Squamous Epithelial Cells - UA 0 SEEN /hpf (5-10); White Blood Cells 0 SEEN /hpf (0-5)
[2019-06-06] MEDS: 0.9% Normal Saline 1,000 ML 150 ML IV (15:27)
[2019-06-06] MEDS: Morphine 2 MG/ML Syringe IV (15:27)
[2019-06-06] MEDS: Ondansetron 4 MG/2 ML Vial IV (15:27)
[2019-06-06 15:28] LABS: Absolute Lymphocyte Count 1.41 X10^3/uL (0.83-4.51); Absolute Neutrophil Count 8.2 X10^3/uL (2.0-7.7); Basophil# 0.05 X10^3/uL; Basophil% 0.5 % (0-1); Eosinophil# 0.11 X10^3/uL; Hematocrit 41.4 % (37-47); Hemoglobin 14.1 g/dL (12.0-15.0); Lymphocyte # 1.41 X10^3/ul (4.0); Lymphocyte % 13.4 % (19-41); Mean Corp Hgb Conc 34.1 g/dL (32-36); Mean Corpuscular Hgb 29.4 pg (27.0-32.0); Mean Corpuscular Volume 86.4 fL (81-99); Mean Platelet Vol. 10.3 fl (6.2-12.0); Monocyte# 0.72 X10^3/uL; Monocyte% 6.8 % (0-10); NRBC Flagged by Analyzer 0 % (0-5); Neutrophil # 8.21 X10^3/uL (2.7-7.7); Platelet Count 313 K/mm3 (150-450); RBC Distribution Width CV 11.9 % (11.6-14.6); RBC Distribution Width SD 37.7 fl (35.1-43.9); Red Blood Count 4.79 M/mm3 (4.2-5.4); White Blood Count 10.5 K/mm3 (4.4-11.0)
[2019-06-06 15:48] LABS: Anion Gap 7 (5-15); BUN 12 mg/dL (7-18); BUN/Creat Ratio 16.7 RATIO (10-20); Calcium,Total 8.7 mg/dL (8.5-10.1); Chloride 111 mmol/L (98-107); Creatinine, Serum 0.72 mg/dL (0.55-1.02); EST Glomerular Filtration Rate 107 mL/min (>60); Est Glom Filt Rate - Afr Amer 129 mL/min (>60); Estimated Creatinine Clearance 101.58 ml/min; Glucose 102 mg/dL (74-106); Potassium 3.7 mmol/L (3.5-5.1); Sodium Level 141 mmol/L (136-145)
[2019-06-06 15:50] LABS: Color, Urine Yellow (Yellow); Glucose, Dipstick Normal (Normal); Ketone-Dipstick 5 mg/dl (Negative); Leukocyte Esterase-Dipstick Negative /ul (Negative); Nitrite-Dipstick Negative (Negative); Occult Blood-Urine Negative /ul (Negative); Protein-Dipstick 30 mg/dl (Negative); Specific Gravity, Urine 1.025 (1.002-1.030); Urine Bilirubin Dipstick Negative (Negative); Urine Clarity Clear (Clear); Urine Urobilinogen Normal (Normal)
[2019-06-06 16:15] LABS: Internal QC Validated? YES +Cl - CLEAR BKGD; Pregnancy, Serum, hCG Quali. NEGATIVE Negative
[2019-06-06 16:18] LABS: Bacteria RARE /hpf (None Seen)
[2019-06-06 16:50] VITALS: BP 116/80; PULSE 74; RESP 18; O2SAT 99
[2019-06-06] MEDS: proMETHazine 25 MG/ML Syringe 6.25 MG IV (17:03)
[2019-06-06] MEDS: Ketorolac 30 MG/ML Syringe IV (17:04)
[2019-06-06 18:00] VITALS: BP 112/68; PULSE 84; RESP 16; TEMP 36.8; O2SAT 100
[2019-06-06 18:23] VITALS: BP 113/59; PULSE 71; RESP 15; O2SAT 99
== END 2019-06-06 18:24 | disposition home or self-care (01) ==
PROVIDERS: Emergency Provider Emergency Medicine; PCP Family Medicine
DX: K52.9 Noninfective gastroenteritis and colitis, unspecified (principal); Q78.0 Osteogenesis imperfecta; Z90.49 Acquired absence of other specified parts of digestive tract
CPT/HCPCS: 74177; 80048; 81001; 84703; 85025; 87070; 87205; 96361; 96374; 96375; 99283; J7030; Q9967; A4216; J2405

== ENCOUNTER 2019-06-10 03:52 | Emergency (ER) | payer OTHER, SELFPAY ==
[2019-06-10 03:53] VITALS: BP 133/80; PULSE 75; RESP 16; TEMP 36.8; O2SAT 100; BMI 23.2
[2019-06-10 04:03] VITALS: BP 133/80; PULSE 75; RESP 16; TEMP 36.8; O2SAT 100
--- NOTE | 2019-06-10 04:13 | ED.DCSUM_ITS ---
History of Present Illness Chief Complaint: General Illness Detail of Chief Complaint: Vomiting Informant: Patient Onset: Yesterday Context: Gradual Onset Timing: Continuous Quality: Nonbilious, nonbloody emesis Current Severity: Severe Maximum Severity: Severe Worsened by: Trying to eat or drink Relieved by: Nothing but has no antiemetic Associated Symptoms: See below Narrative: Patient presents feeling dehydrated. She states for the past day, she has had nausea and vomiting in addition to the diarrhea she already had. She was seen here about 3 days ago, had a work-up showing colitis in her sigmoid, she was discharged on dicyclomine and antibiotics, she kept them down for 2 days and she kept some of it down earlier this past morning, but nothing since. She states she is urinating much less than normal for her, and it is concentrated- appearing. She does not have any new symptoms. The pain that she is having in her right abdomen is still there. No respiratory symptoms. Has had a headache today, gradual in onset. No known history of migraines. - Past Medical History (1) Osteogenesis imperfecta Status: Chronic Past Medical History - Allergies and Home Meds Allergies/Adverse Reactions: Allergies No Known Allergies Allergy (Verified 06/10/19 03:58) Primary Care Physician: Beryl Islas DO [Primary Care Provider] - 3-5 Days if not improving Surgical History: cholecystectomy, - - Smoking Status: Never smoker Review of Systems General: Reports: Malaise. Denies: Chills, Fever, Sweats Eyes: Reports: - - photophobia. Denies: Visual changes - bilaterally, Diplopia ENT: Denies: Rhinorrhea, Sore throat Cardiovascular: Denies: Chest pain, Palpitations Respiratory: Denies: Dyspnea, Cough, Dyspnea on exertion Gastrointestinal: Reports: Abdominal pain, Nausea, Vomiting, Diarrhea. Denies: Melena, Hematochezia Genitourinary: Denies: Dysuria, Hematuria, Frequency Musculoskeletal: Denies: Neck pain, Back pain, Extremity Pain Skin: Denies: Rash, Wounds Neurological: Reports: Headache. Denies: Weakness, Numbness Physical Exam Vital Signs/Narrative: Vital Signs Temp Pulse Resp BP Pulse Ox 06/10/19 04:03 98.3 F 75 16 133/80 H 100 06/10/19 03:53 98.3 F 75 16 133/80 H 100 Inital Vital Signs reviewed: Yes General: Well nourished, Well developed, No Acute Distress Head: Normocephalic, Atraumatic Eyes: Perrl, EOMI, - - Blue sclera bilaterally. Mildly photophobic. ENT: Moist mucous membranes, No rhinorrhea Neck: Supple, Nontender Cardiovascular: Regular rate, Regular rhythm, No murmurs. Negative for: Tachycardia Respiratory: No distress, CTA bilaterally, Chest nontender Abdomen: Soft, Nondistended, Normal bowel sounds, No masses, Tender - Mildly diffusely, worse right mid abdomen. Negative for: Guarding, Rebound tenderness Back: Nontender, Normal Inspection Extremities: Nontender, No edema. Negative for: Calf Tenderness Skin: Normal color, No rash, No Trauma Neurological: Alert, Oriented x3, Cranial nerves II-XII grossly intact, Normal Strength, Normal Sensation, Normal Gait Psychological: Normal affect, Normal Mood Diagnostic/Tx/Re-eval Laboratory Results 06/10/19 06/10/19 06/10/19 04:35 04:45 04:45 WBC 6.4 RBC 4.98 Hgb 14.6 Hct 43.9 MCV 88.2 MCH 29.3 MCHC 33.3 RDW Std Deviation 38.2 RDW Coeff of Sharmin 11.9 Plt Count 294 MPV 10.2 Immature Gran % (Auto) 0.200 Neut % (Auto) 70.6 H Lymph % (Auto) 20.0 [place] % (Auto) 7.0 Eos % (Auto) 1.7 Baso % (Auto) 0.5 Absolute Neuts (auto) 4.5 Absolute Lymphs (auto) 1.28 Nucleated RBC % 0 Sodium 137 Potassium 3.5 Chloride 106 Carbon Dioxide 26.0 Anion Gap 5 BUN 7 Creatinine 0.68 Estim Creat Clear Calc 106.86 Est GFR (MDRD) Af Amer 139 Est GFR (MDRD) Non-Af 115 BUN/Creatinine Ratio 10.4 Glucose 102 Calcium 8.6 Urine Color Yellow Urine Clarity Sl. Cloudy Urine pH 5.0 Ur Specific [place] 1.025 Urine Protein 15 H Urine Glucose (UA) Normal Urine Ketones 5 H Urine Occult Blood Negative Urine Nitrite Negative Urine Bilirubin Negative Urine Urobilinogen Normal Ur Leukocyte Esterase 100 H Urine RBC 0 SEEN Urine WBC 0-5 SEEN Ur Squamous Epith Cells 5-10 SEEN Amorphous Sediment 1+ Urine Bacteria 0 SEEN Urine Mucus 0 SEEN - Medical Decision Making Her white blood count has significantly improved compared with several days ago, reassuring that she is not dealing with appendicitis now, her CT showed a normal appendix before but her pain continues to be on the right despite inflammation in her sigmoid. After a liter of fluid and Zofran, she still feels nauseated and has a headache, leading me now to believe that she may have a migraine since now she is sitting in the dark where she was not before, that could be causing her nausea. Therefore she was treated with Reglan after that. She did not have a lot of relief so she was then given dihydroergotamine. Shortly afterwards she vomited, however her headache started feeling much better. After that, her nausea is improved as well. She is comfortable going home. Prescribed Phenergan. ED Disposition - Plan for ED Patient: Disposition: Home or Assisted Living Diagnosis: Vomiting, Migraine headache Instructions: ED, Migraine (Classical) Prescriptions: proMETHazine tablet [Phenergan] 25 mg PO Q6H PRN PRN #12 tab PRN Reason: Nausea Transmission Status: [id number] Referrals: Beryl Islas DO [Primary Care Provider] - 3-5 Days if not improving
[2019-06-10 04:40] LABS: Bacteria 0 SEEN /hpf (None Seen); Mucous, Urine 0 SEEN /hpf (<or=2+); Red Blood Cells-Urine 0 SEEN /hpf (0-5)
[2019-06-10 04:41] LABS: Color, Urine Yellow (Yellow); Glucose, Dipstick Normal (Normal); Ketone-Dipstick 5 mg/dl (Negative); Leukocyte Esterase-Dipstick 100 /ul (Negative); Nitrite-Dipstick Negative (Negative); Occult Blood-Urine Negative /ul (Negative); Protein-Dipstick 15 mg/dl (Negative); Specific Gravity, Urine 1.025 (1.002-1.030); Urine Bilirubin Dipstick Negative (Negative); Urine Clarity Sl. Cloudy (Clear); Urine Urobilinogen Normal (Normal)
[2019-06-10] MEDS: Ketorolac 30 MG/ML Syringe IV (04:50)
[2019-06-10] MEDS: 0.9% Normal Saline 1,000 ML 999 ML IV (04:50)
[2019-06-10] MEDS: Ondansetron 4 MG/2 ML Vial IV (04:50)
[2019-06-10 04:59] LABS: Amorphous Sediment 1+; Squamous Epithelial Cells - UA 5-10 SEEN /hpf (5-10); White Blood Cells 0-5 SEEN /hpf (0-5)
[2019-06-10 05:08] LABS: Absolute Lymphocyte Count 1.28 X10^3/uL (0.83-4.51); Absolute Neutrophil Count 4.5 X10^3/uL (2.0-7.7); Basophil# 0.03 X10^3/uL; Basophil% 0.5 % (0-1); Eosinophil# 0.11 X10^3/uL; Eosinophils% 1.7 % (0-5); Hematocrit 43.9 % (37-47); Hemoglobin 14.6 g/dL (12.0-15.0); Lymphocyte # 1.28 X10^3/ul (4.0); Mean Corp Hgb Conc 33.3 g/dL (32-36); Mean Corpuscular Hgb 29.3 pg (27.0-32.0); Mean Corpuscular Volume 88.2 fL (81-99); Mean Platelet Vol. 10.2 fl (6.2-12.0); Monocyte# 0.45 X10^3/uL; NRBC Flagged by Analyzer 0 % (0-5); Neutrophil # 4.51 X10^3/uL (2.7-7.7); Neutrophil % 70.6 % (47-70); Platelet Count 294 K/mm3 (150-450); RBC Distribution Width CV 11.9 % (11.6-14.6); RBC Distribution Width SD 38.2 fl (35.1-43.9); Red Blood Count 4.98 M/mm3 (4.2-5.4); White Blood Count 6.4 K/mm3 (4.4-11.0)
[2019-06-10 05:24] LABS: Anion Gap 5 (5-15); BUN 7 mg/dL (7-18); BUN/Creat Ratio 10.4 RATIO (10-20); Calcium,Total 8.6 mg/dL (8.5-10.1); Chloride 106 mmol/L (98-107); Creatinine, Serum 0.68 mg/dL (0.55-1.02); EST Glomerular Filtration Rate 115 mL/min (>60); Est Glom Filt Rate - Afr Amer 139 mL/min (>60); Estimated Creatinine Clearance 106.86 ml/min; Glucose 102 mg/dL (74-106); Potassium 3.5 mmol/L (3.5-5.1); Sodium Level 137 mmol/L (136-145)
[2019-06-10] MEDS: Metoclopramide 10 MG/2 ML Vial IV (05:27)
[2019-06-10] MEDS: Dihydroergotamine 1 MG/ML Ampul IV (05:56)
[2019-06-10 06:04] VITALS: BP 106/60; PULSE 116; RESP 16; O2SAT 98
[2019-06-10 06:59] VITALS: BP 145/80; PULSE 100; RESP 16; O2SAT 98
== END 2019-06-10 07:18 | disposition home or self-care (01) ==
PROVIDERS: Emergency Provider Emergency Medicine; PCP Family Medicine
DX: G43.909 Migraine, unspecified, not intractable, without status migrainosus (principal); Q78.0 Osteogenesis imperfecta; Z90.49 Acquired absence of other specified parts of digestive tract
CPT/HCPCS: 80048; 81001; 85025; 96361; 96374; 96375; 99285; J1110; J2405

== ENCOUNTER → 2019-07-01 15:34 | Outpatient (CLI) | payer OTHER, SELFPAY ==
[2019-07-01 13:37] VITALS: BMI 23.2
== END ==
PROVIDERS: PCP Family Medicine; Referring Provider Nurse Practitioner Women's Health; Visit Provider Nurse Practitioner Women's Health
DX: O23.40 Unspecified infection of urinary tract in pregnancy, unspecified trimester (principal); Z3A.00 Weeks of gestation of pregnancy not specified
CPT/HCPCS: 87086

== ENCOUNTER → 2019-07-06 14:52 | Outpatient (CLI) | payer OTHER, SELFPAY ==
[2019-07-06 13:57] VITALS: BMI 23.7
== END ==
PROVIDERS: PCP Family Medicine; Visit Provider Nurse Practitioner Women's Health
DX: R10.2 Pelvic and perineal pain (principal)
CPT/HCPCS: 87070; 87205

== ENCOUNTER → 2019-07-13 15:54 | Outpatient (CLI) | payer OTHER, SELFPAY ==
[2019-07-06 15:17] VITALS: BMI 23.2
--- NOTE | 2019-07-13 15:56 | US_ITS ---
STUDY: ULTRASOUND OF THE FEMALE PELVIS - COMPLETE REASON FOR EXAM: Female, 24 years old. PELVIC PAIN RT and gt;LT X 2 WEEKS LMP: June 05, 2019. TECHNIQUE: Transabdominal TECHNICAL QUALITY: Adequate. COMPARISON: Comparison is made with prior examination dated May 26, 2018. FINDINGS: The uterus is anteverted and is in a midline position. The uterus measures 7.8 cm x 4.4 cm x 3.1 cm. Normal uterine cervix. The endometrium measures 3.0 mm in thickness, and is hyperechoic. There is no demonstrated endometrial mass. There is no demonstrated myometrial mass. I.U.D. - The patient does not have an I.U.D. The right ovary is visualized. The right ovary measures 1.8 cm x 1.7 cm x 1.1 cm. There is no right ovarian cyst or ovarian mass. There is no visualized right adnexal mass or complex lesion. There is normal arterial and normal venous vascularity. The left ovary is visualized. The left ovary measures 2.3 cm x 1.1 cm x 0.8 cm. There is no left ovarian cyst or ovarian mass. There is no visualized left adnexal mass or complex lesion. There is normal arterial and normal venous vascularity. There is no fluid in the cul-de-sac. The pre void volume of the bladder was 155 ml. Polycystic ovary disease: No. US/Pelvic (Non ) IMPRESSION: Normal female pelvis. Electronically Signed: Michel Richardson, at 9:12 EDT , Service support ,
--- NOTE | 2019-07-13 15:56 | US_ITS ---
STUDY: ULTRASOUND OF THE FEMALE PELVIS - COMPLETE REASON FOR EXAM: Female, 24 years old. PELVIC PAIN RT and gt;LT X 2 WEEKS LMP: June 05, 2019. TECHNIQUE: Transabdominal TECHNICAL QUALITY: Adequate. COMPARISON: Comparison is made with prior examination dated May 26, 2018. FINDINGS: The uterus is anteverted and is in a midline position. The uterus measures 7.8 cm x 4.4 cm x 3.1 cm. Normal uterine cervix. The endometrium measures 3.0 mm in thickness, and is hyperechoic. There is no demonstrated endometrial mass. There is no demonstrated myometrial mass. I.U.D. - The patient does not have an I.U.D. The right ovary is visualized. The right ovary measures 1.8 cm x 1.7 cm x 1.1 cm. There is no right ovarian cyst or ovarian mass. There is no visualized right adnexal mass or complex lesion. There is normal arterial and normal venous vascularity. The left ovary is visualized. The left ovary measures 2.3 cm x 1.1 cm x 0.8 cm. There is no left ovarian cyst or ovarian mass. There is no visualized left adnexal mass or complex lesion. There is normal arterial and normal venous vascularity. There is no fluid in the cul-de-sac. The pre void volume of the bladder was 155 ml. Polycystic ovary disease: No. US/Transvaginal Non- IMPRESSION: Normal female pelvis. Electronically Signed: Michel Richardson, at 9:12 EDT , Service support ,
== END ==
PROVIDERS: PCP Family Medicine; Referring Provider Nurse Practitioner Women's Health; Visit Provider Nurse Practitioner Women's Health
DX: R10.2 Pelvic and perineal pain (principal)
CPT/HCPCS: 76830; 76856; 93976

== ENCOUNTER 2019-08-13 18:56 | Emergency (ER) | payer OTHER, SELFPAY ==
[2019-07-06 15:17] VITALS: BMI 23.2
[2019-08-13 18:57] VITALS: BP 139/82; PULSE 99; RESP 18; TEMP 36.3; O2SAT 97; BMI 22.9
--- NOTE | 2019-08-13 19:34 | ED.VIS.GI ---
History of Present Illness Chief Complaint: Abd Pain Informant: Patient - Abdominal Pain/Flank Pain Onset: Month(s) - 1 + Context: Gradual Onset Timing: Continuous Quality: Aching Location: LLQ Current Severity: Moderate Maximum Severity: Moderate Worsened by: Nothing Relieved by: Nothing - Nausea/Vomiting/Emesis GI Symptom: Negative for: Nausea, Vomiting - Diarrhea/Melena/Hematochezia GI Symptom: Diarrhea, Hematochezia - Only 1 or 2 days, after she wipes. Negative for: Melena Onset: Month(s) - 1 Stool Quality: Watery - Dark green Episodes: 5 - Per day Associated Symptoms: Negative for: Dysuria, Frequency, Hematuria, Urgency Narrative: Patient has been having left-sided abdominal pain for a month. She had a little blood last day or 2 after bowel movements when she wipes but not mixed in with stool, she has had mucus in the past but not recently. States she was seen here in the ER for it, actually by myself, she had a CT that was unremarkable except for signs of colitis in the sigmoid but no appendicitis her pain was on the right that time, she cannot remember but states it is been on the left for as long she can remember now. She states she saw her doctor one time, she was put on several courses of antibiotics, none of it helped, and it has not worsened. She has not followed up with a specialist or been referred to 1. She has never had a scope. Pain sometimes radiates into her left low back. She denies any urinary symptoms, nausea, vomiting, fevers. - Past Medical History (1) Osteogenesis imperfecta Status: Chronic Past Medical History - Allergies and Home Meds Allergies/Adverse Reactions: Allergies No Known Allergies Allergy (Verified 08/13/19 18:59) Primary Care Physician: Beryl Islas DO [Primary Care Provider] - Surgical History: cholecystectomy, - - Smoking Status: Never smoker Review of Systems General: Denies: Chills, Fever, Sweats Eyes: Denies: Visual changes - bilaterally, Diplopia ENT: Denies: Bilateral ear pain, Rhinorrhea, Sore throat Cardiovascular: Denies: Chest pain, Palpitations Respiratory: Denies: Dyspnea, Cough, Dyspnea on exertion Gastrointestinal: Reports: Abdominal pain, Diarrhea, Hematochezia. Denies: Nausea, Vomiting, Melena Genitourinary: Denies: Dysuria, Hematuria, Frequency Musculoskeletal: Reports: Back pain. Denies: Swelling, Extremity Pain Skin: Denies: Rash, Wounds Neurological: Denies: Headache, Weakness, Numbness Physical Exam Vital Signs/Narrative: Vital Signs Temp Pulse Resp BP Pulse Ox 08/13/19 18:57 97.4 F L 99 18 139/82 H 97 Inital Vital Signs reviewed: Yes General: Well nourished, Well developed, No Acute Distress Head: Normocephalic, Atraumatic Eyes: Perrl, EOMI ENT: Moist mucous membranes, No rhinorrhea Neck: Supple, Nontender Cardiovascular: Regular rate, Regular rhythm, No murmurs Respiratory: No distress, CTA bilaterally, Chest nontender Abdomen: Soft, Nondistended, Normal bowel sounds, No masses, Tender - Mild, left lower quadrant only. Negative for: Guarding, Rebound tenderness Back: Nontender, Normal Inspection. Negative for: CVA tenderness Extremities: Nontender, No edema. Negative for: Calf Tenderness Skin: Normal color, No rash, No Trauma Neurological: Alert, Oriented x3, Cranial nerves II-XII grossly intact, Normal Strength, Normal Sensation, Normal Gait Psychological: Normal affect, Normal Mood Diagnostic/Tx/Re-eval Laboratory Results 08/13/19 08/13/19 08/13/19 20:00 20:00 20:05 WBC 8.2 RBC 4.69 Hgb 13.9 Hct 42.3 MCV 90.2 MCH 29.6 MCHC 32.9 RDW Std Deviation 41.0 RDW Coeff of Sharmin 12.5 Plt Count 368 MPV 10.0 Immature Gran % (Auto) 0.200 Neut % (Auto) 66.6 Lymph % (Auto) 23.7 [place] % (Auto) 8.0 Eos % (Auto) 1.1 Baso % (Auto) 0.4 Absolute Neuts (auto) 5.4 Absolute Lymphs (auto) 1.94 Nucleated RBC % 0 Sodium Potassium Chloride Carbon Dioxide Anion Gap BUN Creatinine Estim Creat Clear Calc Est GFR (MDRD) Af Amer Est GFR (MDRD) Non-Af BUN/Creatinine Ratio Glucose Calcium Total Bilirubin AST ALT Alkaline Phosphatase Total Protein Albumin Globulin Albumin/Globulin Ratio Urine Color Yellow Urine Clarity Cloudy Urine pH 5.0 Ur Specific [place] 1.020 Urine Protein 30 H Urine Glucose (UA) Normal Urine Ketones 5 H Urine Occult Blood 250 H Urine Nitrite Negative Urine Bilirubin Negative Urine Urobilinogen 1 H Ur Leukocyte Esterase 25 H Urine RBC > 100 SEEN Urine WBC 0-5 SEEN Ur Squamous Epith Cells 5-10 SEEN Amorphous Sediment 1+ URATE Urine Bacteria 0 SEEN Urine Mucus 0 SEEN Urine Test Negative 08/13/19 20:05 WBC RBC Hgb Hct MCV MCH MCHC RDW Std Deviation RDW Coeff of Sharmin Plt Count MPV Immature Gran % (Auto) Neut % (Auto) Lymph % (Auto) [place] % (Auto) Eos % (Auto) Baso % (Auto) Absolute Neuts (auto) Absolute Lymphs (auto) Nucleated RBC % Sodium 143 Potassium 3.9 Chloride 112 H Carbon Dioxide 26.0 Anion Gap 5 BUN 12 Creatinine 0.60 Estim Creat Clear Calc 118.56 Est GFR (MDRD) Af Amer 159 Est GFR (MDRD) Non-Af 131 BUN/Creatinine Ratio 20.0 Glucose 102 Calcium 8.8 Total Bilirubin 0.30 AST 18 ALT 30 Alkaline Phosphatase 152 H Total Protein 7.8 Albumin 3.8 Globulin 4.0 Albumin/Globulin Ratio 1.0 Urine Color Urine Clarity Urine pH Ur Specific [place] Urine Protein Urine Glucose (UA) Urine Ketones Urine Occult Blood Urine Nitrite Urine Bilirubin Urine Urobilinogen Ur Leukocyte Esterase Urine RBC Urine WBC Ur Squamous Epith Cells Amorphous Sediment Urine Bacteria Urine Mucus Urine Test - Medical Decision Making Patient was given IV Toradol and IM Bentyl. She feels much better. Her work-up is normal except for microscopic hematuria, I suspect this could be contamination from the small amount of blood she was having after stools, from a CT 2 months ago she had no renal stones so I suspect urolithiasis would be very unlikely now. I do not think she needs her CT repeated. I think she needs to follow-up for a scope for further diagnostics. In the meantime I will send her home with prescriptions for Naprosyn and Bentyl. She is comfortable with that plan. ED Disposition - Plan for ED Patient: Disposition: Home or Assisted Living Diagnosis: Left sided abdominal pain, Colitis Instructions: ED Abdominal Pain Unkn Cause Fem Prescriptions: Dicyclomine HCl [Bentyl] 20 mg PO . Q4-6H PRN #20 cap PRN Reason: abdominal pain Prescription Printed Naproxen [Naprosyn] 500 mg PO BID PRN #20 tab Prescription Printed Referrals: Beryl Islas, [Primary Care Provider] - Rajiv Juan MD [STAFF PHYSICIAN] - (call for appt to be evaluated for colonoscopy)
[2019-08-13] MEDS: Ketorolac 30 MG/ML Syringe IV (20:04)
[2019-08-13] MEDS: Dicyclomine 20 MG/2 ML Vial IM (20:05)
[2019-08-13 20:13] LABS: Bacteria 0 SEEN /hpf (None Seen); Mucous, Urine 0 SEEN /hpf (<or=2+)
[2019-08-13 20:16] LABS: Absolute Lymphocyte Count 1.94 X10^3/uL (0.83-4.51); Absolute Neutrophil Count 5.4 X10^3/uL (2.0-7.7); Basophil# 0.03 X10^3/uL; Basophil% 0.4 % (0-1); Eosinophil# 0.09 X10^3/uL; Eosinophils% 1.1 % (0-5); Hematocrit 42.3 % (37-47); Hemoglobin 13.9 g/dL (12.0-15.0); Lymphocyte # 1.94 X10^3/ul (4.0); Lymphocyte % 23.7 % (19-41); Mean Corp Hgb Conc 32.9 g/dL (32-36); Mean Corpuscular Hgb 29.6 pg (27.0-32.0); Mean Corpuscular Volume 90.2 fL (81-99); Monocyte# 0.65 X10^3/uL; NRBC Flagged by Analyzer 0 % (0-5); Neutrophil # 5.44 X10^3/uL (2.7-7.7); Neutrophil % 66.6 % (47-70); Platelet Count 368 K/mm3 (150-450); RBC Distribution Width CV 12.5 % (11.6-14.6); Red Blood Count 4.69 M/mm3 (4.2-5.4); White Blood Count 8.2 K/mm3 (4.4-11.0)
[2019-08-13 20:19] LABS: Color, Urine Yellow (Yellow); Glucose, Dipstick Normal (Normal); Ketone-Dipstick 5 mg/dl (Negative); Leukocyte Esterase-Dipstick 25 /ul (Negative); Nitrite-Dipstick Negative (Negative); Occult Blood-Urine 250 /ul (Negative); Protein-Dipstick 30 mg/dl (Negative); Urine Bilirubin Dipstick Negative (Negative); Urine Clarity Cloudy (Clear); Urine Urobilinogen 1 mg/dl (Normal)
[2019-08-13 20:32] LABS: Internal QC Validated? YES +Cl - CLEAR BKGD; Pregnancy, Urine Negative Negative
[2019-08-13 20:35] LABS: AST(SGOT) 18 U/L (15-37); Alanine Aminotransfer ALT/SGPT 30 U/L (13-56); Albumin, Serum 3.8 g/dL (3.2-5.0); Alkaline Phosphatase 152 U/L (45-117); Anion Gap 5 (5-15); BUN 12 mg/dL (7-18); Calcium,Total 8.8 mg/dL (8.5-10.1); Chloride 112 mmol/L (98-107); EST Glomerular Filtration Rate 131 mL/min (>60); Est Glom Filt Rate - Afr Amer 159 mL/min (>60); Estimated Creatinine Clearance 118.56 ml/min; Glucose 102 mg/dL (74-106); Potassium 3.9 mmol/L (3.5-5.1); Protein, Total 7.8 g/dL (6.4-8.2); Sodium Level 143 mmol/L (136-145)
[2019-08-13 20:48] LABS: Amorphous Sediment 1+ URATE; Red Blood Cells-Urine > 100 SEEN /hpf (0-5); Squamous Epithelial Cells - UA 5-10 SEEN /hpf (5-10); White Blood Cells 0-5 SEEN /hpf (0-5)
[2019-08-13 21:57] VITALS: BP 138/90; PULSE 70; RESP 16; O2SAT 98
[2019-08-13 22:21] VITALS: BP 130/80; PULSE 89; RESP 16; O2SAT 98
== END 2019-08-13 22:23 | disposition home or self-care (01) ==
PROVIDERS: Emergency Provider Emergency Medicine; PCP Family Medicine
DX: K52.9 Noninfective gastroenteritis and colitis, unspecified (principal); R10.9 Unspecified abdominal pain; Q78.0 Osteogenesis imperfecta; Z90.49 Acquired absence of other specified parts of digestive tract
CPT/HCPCS: 80053; 81001; 81025; 85025; 90471; 96361; 96372; 96374; 99285; J7030

== ENCOUNTER → 2019-10-26 16:19 | Outpatient (CLI) | payer OTHER, SELFPAY ==
[2019-10-26 10:30] VITALS: BMI 22.9
== END ==
PROVIDERS: PCP Family Medicine; Referring Provider Nurse Practitioner Women's Health; Visit Provider Nurse Practitioner Women's Health
DX: R10.2 Pelvic and perineal pain (principal); N39.0 Urinary tract infection, site not specified
CPT/HCPCS: 87070; 87205

== ENCOUNTER 2019-12-13 16:47 | Emergency (ER) | payer OTHER, SELFPAY ==
[2019-10-26 10:30] VITALS: BMI 22.9
[2019-12-13 16:48] VITALS: BP 131/74; PULSE 95; RESP 14; TEMP 36.3; O2SAT 97; BMI 22.9
--- NOTE | 2019-12-13 17:03 | ED.DCSUM_ITS ---
History of Present Illness Chief Complaint: Abd Pain Informant: Patient Onset: Days Context: Gradual Onset Timing: Intermittent Current Severity: Moderate Maximum Severity: Moderate Narrative: The patient is a 24-year-old female who presents to the emergency department with abdominal cramping, diarrhea, and nausea and vomiting. The patient has a history of recurrent constipation. She actually underwent colonoscopy on the third of this month. It was nonspecific. She states that she was doing well until about 10 days ago. She states that she would have bouts of cramping pain. Over the past 2 days, is worsened when she is now had some vomiting. She also notes some sinus congestion. She denies any fevers or chills. She denies any urinary symptoms. She states she is otherwise been in her normal state of health. Prior similar symptoms: Yes Recent Illness/Hospitalization: No Past Medical History - Allergies and Home Meds Allergies/Adverse Reactions: Allergies No Known Allergies Allergy (Verified 12/13/19 16:48) Primary Care Physician: Beryl Islas DO [Primary Care Provider] - Prior records reviewed: Yes Past Medical History: - - Constipation, chronic sinusitis Surgical History: cholecystectomy, - - Smoking Status: Never smoker Review of Systems General: Denies: Chills, Fever, Sweats Eyes: Denies: Visual changes - bilaterally, Diplopia ENT: Denies: Rhinorrhea, Sore throat Cardiovascular: Denies: Chest pain, Palpitations Respiratory: Denies: Dyspnea, Cough, Dyspnea on exertion Gastrointestinal: Reports: Abdominal pain, Nausea, Vomiting, Diarrhea. Denies: Melena, Hematochezia Genitourinary: Denies: Dysuria, Hematuria, Frequency Musculoskeletal: Denies: Back pain, Extremity Pain Skin: Denies: Rash, Wounds Neurological: Denies: Headache, Weakness, Numbness Physical Exam Vital Signs/Narrative: Vital Signs Temp Pulse Resp BP Pulse Ox 12/13/19 16:48 97.4 F L 95 14 131/74 H 97 Inital Vital Signs reviewed: Yes General: Well nourished, Well developed, No Acute Distress Head: Normocephalic, Atraumatic Eyes: Perrl, EOMI ENT: Moist mucous membranes, No rhinorrhea Neck: Supple, Nontender Cardiovascular: Regular rate, Regular rhythm, No murmurs Respiratory: No distress, CTA bilaterally, Chest nontender Abdomen: Soft, Nontender, Nondistended, Normal bowel sounds Back: Nontender, Normal Inspection Extremities: Nontender, No edema Skin: Normal color, No rash Neurological: Alert, Oriented x3, Cranial nerves II-XII grossly intact, Normal Strength, Normal Sensation Psychological: Normal affect, Normal Mood Diagnostic/Tx/Re-eval Abnormal Lab Results 12/13/19 12/13/19 17:10 17:10 WBC 10.2 RBC 4.51 Hgb 13.2 Hct 39.6 MCV 87.8 MCH 29.3 MCHC 33.3 RDW Std Deviation 38.3 RDW Coeff of Sharmin 11.9 Plt Count 341 MPV 10.4 Immature Gran % (Auto) 0.300 Neut % (Auto) 84.2 H Lymph % (Auto) 9.4 L [place] % (Auto) 5.6 Eos % (Auto) 0.2 Baso % (Auto) 0.3 Absolute Neuts (auto) 8.6 H Absolute Lymphs (auto) 0.96 Nucleated RBC % 0 Sodium 137 Potassium 3.9 Chloride 104 Carbon Dioxide 26.0 Anion Gap 7 BUN 8 Creatinine 0.56 Estim Creat Clear Calc 127.03 Est GFR (MDRD) Af Amer 173 Est GFR (MDRD) Non-Af 143 BUN/Creatinine Ratio 14.4 Glucose 87 Calcium 8.9 Total Bilirubin 0.50 AST 28 ALT 32 Alkaline Phosphatase 150 H Total Protein 7.9 Albumin 4.0 Globulin 3.9 Albumin/Globulin Ratio 1.0 - Medical Decision Making The patient presents with acute on chronic abdominal symptoms. She really has no reproducible tenderness. Her symptoms do seem more consistent with gastroenteritis. She had no vomiting while here. Metabolic work-up was pursued and was unremarkable. Urine shows no evidence of infection. The urine test was positive. I do feel that this likely explains her symptoms. She has absolutely no abdominal pain. I have no suspicion for ectopic. I am going to start the patient on vitamins and antiemetics. She will be discharged with outpatient [employer] follow-up. Impression 1. Nausea vomiting 2. ED Disposition - Plan for ED Patient: Instructions: ED Established Normal Symptoms Prescriptions: Dicyclomine HCl [Bentyl] 20 mg PO TIDAC #20 cap Prescription Printed Vits [Prenatabs FA] 1 tab PO DAILY #30 tab Prescription Printed Ondansetron [Zofran Odt] 4 mg PO Q8H PRN PRN #10 tab PRN Reason: Nausea Prescription Printed Referrals: Nabil Fritz MD [STAFF PHYSICIAN] -
[2019-12-13] MEDS: 0.9% Normal Saline 1,000 ML 1000 ML IV (17:09)
[2019-12-13] MEDS: proMETHazine 25 MG/ML Syringe 12.5 MG IV (17:10)
[2019-12-13 17:36] LABS: Bacteria 0 SEEN /hpf (None Seen); Mucous, Urine 0 SEEN /hpf (<or=2+)
[2019-12-13 17:47] LABS: Color, Urine Yellow (Yellow); Glucose, Dipstick Normal (Normal); Ketone-Dipstick 50 mg/dl (Negative); Leukocyte Esterase-Dipstick 100 /ul (Negative); Nitrite-Dipstick Negative (Negative); Occult Blood-Urine Negative /ul (Negative); Protein-Dipstick 30 mg/dl (Negative); Urine Bilirubin Dipstick Negative (Negative); Urine Clarity Sl. Cloudy (Clear); Urine Urobilinogen 1 mg/dl (Normal)
[2019-12-13 17:49] LABS: Absolute Lymphocyte Count 0.96 X10^3/uL (0.83-4.51); Absolute Neutrophil Count 8.6 X10^3/uL (2.0-7.7); Basophil# 0.03 X10^3/uL; Basophil% 0.3 % (0-1); Eosinophil# 0.02 X10^3/uL; Eosinophils% 0.2 % (0-5); Hematocrit 39.6 % (37-47); Hemoglobin 13.2 g/dL (12.0-15.0); Lymphocyte # 0.96 X10^3/ul (4.0); Lymphocyte % 9.4 % (19-41); Mean Corp Hgb Conc 33.3 g/dL (32-36); Mean Corpuscular Hgb 29.3 pg (27.0-32.0); Mean Corpuscular Volume 87.8 fL (81-99); Mean Platelet Vol. 10.4 fl (6.2-12.0); Monocyte# 0.57 X10^3/uL; Monocyte% 5.6 % (0-10); NRBC Flagged by Analyzer 0 % (0-5); Neutrophil # 8.57 X10^3/uL (2.7-7.7); Neutrophil % 84.2 % (47-70); Platelet Count 341 K/mm3 (150-450); RBC Distribution Width CV 11.9 % (11.6-14.6); RBC Distribution Width SD 38.3 fl (35.1-43.9); Red Blood Count 4.51 M/mm3 (4.2-5.4); White Blood Count 10.2 K/mm3 (4.4-11.0)
[2019-12-13 18:06] LABS: AST(SGOT) 28 U/L (15-37); Alanine Aminotransfer ALT/SGPT 32 U/L (13-56); Alkaline Phosphatase 150 U/L (45-117); Anion Gap 7 (5-15); BUN 8 mg/dL (7-18); BUN/Creat Ratio 14.4 RATIO (10-20); Calcium,Total 8.9 mg/dL (8.5-10.1); Chloride 104 mmol/L (98-107); Creatinine, Serum 0.56 mg/dL (0.55-1.02); EST Glomerular Filtration Rate 143 mL/min (>60); Est Glom Filt Rate - Afr Amer 173 mL/min (>60); Estimated Creatinine Clearance 127.03 ml/min; Globulin 3.9 g/dL (2.2-4.2); Glucose 87 mg/dL (74-106); Potassium 3.9 mmol/L (3.5-5.1); Protein, Total 7.9 g/dL (6.4-8.2); Sodium Level 137 mmol/L (136-145)
[2019-12-13 18:15] LABS: Internal QC Validated? YES +Cl - CLEAR BKGD
[2019-12-13 18:16] LABS: Pregnancy, Urine Positive Negative
[2019-12-13 18:34] VITALS: BP 128/87; PULSE 81; RESP 16; O2SAT 99
[2019-12-13 18:48] LABS: Calcium Oxalate Crystals Ur 2+ /hpf (<or=2+); Red Blood Cells-Urine 0-5 SEEN /hpf (0-5); Squamous Epithelial Cells - UA 0-5 SEEN /hpf (5-10); White Blood Cells 5-10 SEEN /hpf (0-5)
== END 2019-12-13 18:34 | disposition home or self-care (01) ==
LOC: ED 17:18
PROVIDERS: Emergency Provider Emergency Medicine; PCP Family Medicine
DX: O21.9 Vomiting of pregnancy, unspecified (principal); Z3A.00 Weeks of gestation of pregnancy not specified; Z90.49 Acquired absence of other specified parts of digestive tract
CPT/HCPCS: 80053; 81001; 81025; 85025; 96361; 96374; 99283; A4216

== ENCOUNTER → 2019-12-14 16:15 | Outpatient (CLI) | payer OTHER, SELFPAY ==
[2019-12-13 16:48] VITALS: BMI 22.9
[2019-12-14 18:13] LABS: hCG Titer Quant., Serum < 1 mIU/mL (1-3)
== END ==
PROVIDERS: Nurse Practitioner Women's Health; PCP Family Medicine; Referring Provider Obstetrics & Gynecology; Visit Provider Obstetrics & Gynecology
DX: N91.2 Amenorrhea, unspecified (principal)
CPT/HCPCS: 36415; 84702

== ENCOUNTER → 2019-12-21 | Outpatient (CLI) | payer OTHER, SELFPAY ==
[2019-10-26 10:30] VITALS: BMI 22.9
[2019-12-13 16:48] VITALS: BMI 22.9
--- NOTE | 2019-12-21 16:11 | CT_ITS ---
STUDY: CT MAXILLOFACIAL SINUSES REASON FOR EXAM: Female, 24 years old. Sinusitis. RADIATION DOSAGE (If Supplied By Facility): CTDIvol = ( 33.06 ) mGy, DLP = ( 858.64 ) mGycm TECHNIQUE: The patient was scanned in a multi detector CT scanner. High resolution axial imaging was performed without the administration of intravenous contrast material. Sagittal and coronal images were reconstructed. Individualized dose optimization techniques were used for this CT. COMPARISON: None. FINDINGS: FRONTAL SINUSES: Normal aeration, without mucosal inflammatory disease. ETHMOIDAL SINUSES: Normal aeration, without mucosal inflammatory disease. MAXILLARY SINUSES: There is a mucous retention cyst versus polyp at the base of the left maxillary sinus. The right maxillary sinus is unremarkable. SPHENOIDAL SINUSES: Normal aeration, without mucosal inflammatory disease. There is patency of the bilateral maxillary infundibuli with normal uncinate processes, ethmoid bullae, and hiatus semilunaris. Normal bilateral middle turbinates. Normal bilateral inferior turbinates. Normal midline nasal septum. There is patency of the bilateral nasal airways. The visualized osseous structures are normal. The visualized bilateral orbital contents are normal. CT/Sinus/Facial Bone IMPRESSION: Minimal left maxillary sinusitis. Electronically Signed: Lei Ann DO at 18:05 EDT Tel [phone], Service support ,
== END | disposition home or self-care (01) ==
LOC: CT 16:09
PROVIDERS: PCP Family Medicine; Referring Provider Otolaryngology Otolaryngology/Facial Plastic Surgery; Visit Provider Otolaryngology Otolaryngology/Facial Plastic Surgery
DX: J32.9 Chronic sinusitis, unspecified (principal)
CPT/HCPCS: 70486

== ENCOUNTER → 2020-01-02 12:56 | Outpatient (CLI) | payer OTHER, SELFPAY ==
[2020-01-02 09:24] VITALS: BMI 22.9
== END ==
PROVIDERS: PCP Family Medicine; Visit Provider Nurse Practitioner Women's Health
DX: N94.9 Unspecified condition associated with female genital organs and menstrual cycle (principal)
CPT/HCPCS: 87070; 87205

== ENCOUNTER 2020-01-29 18:51 | Emergency (ER) | payer OTHER, SELFPAY ==
[2020-01-02 09:24] VITALS: BMI 22.9
[2020-01-29 18:52] VITALS: BP 124/71; PULSE 98; RESP 16; TEMP 36.7; O2SAT 97; BMI 22.8
--- NOTE | 2020-01-29 19:38 | CT_ITS ---
STUDY: CTA HEAD AND NECK WITH CONTRAST REASON FOR EXAM: Female, 24 years old. FLANAGAN ABOVE RIGHT EYE X 3 DAYS, CURRENT TX FOR SINUS INFECTION-NOT HELPING RADIATION DOSAGE (If Supplied By Facility): CTDIvol = ( 28.08 ) mGy, DLP = ( 1282.85 ) mGycm TECHNIQUE: CT angiography was performed with a multi-detector CT scanner. Data acquisition was obtained from the skull base through the vertex following intravenous administration of IV 100mL Isovue-370. MIP images were reconstructed from the axial data set. Post-processing of the angiographic images was performed, with multiplanar reformation and 3D reconstruction. Individualized dose optimization techniques were used for this CT. COMPARISON: No relevant priors. FINDINGS: Paranasal sinuses are clear without acute disease. There is minimal subcentimeter mucosal retention cyst in the left maxillary sinus. This is a benign chronic mucosal change and is not an acute or chronic disease. There are bilateral extraction defects in the fourth maxillary and mandibular molars with unhealed cavities. Normal bilateral petrous carotid arteries. Normal right cavernous carotid artery with a normal supraclinoid bifurcation. Normal left cavernous carotid artery with a normal supraclinoid bifurcation. Normal right A1 segments of the anterior cerebral artery. Normal left A1 segments of the anterior cerebral artery. Normal intact anterior communicating artery (ACOM). Normal bilateral A2 segments of the anterior cerebral arteries. Normal right M1 and M2 segments of the middle cerebral arteries, with a normal M1 bifurcation. Normal left M1 and M2 segments of the middle cerebral arteries, with a normal M1 bifurcation. Posterior communicating arteries are not seen. Normal bilateral vertebral arteries. Normal basilar artery with a normal basilar bifurcation. The visualized bilateral superior cerebellar (SCA) arteries are normal. Normal bilateral P1, P2 and visualized P3 segments of the posterior cerebral arteries. There is no demonstrated aneurysm of the [place]. Brain parenchyma is normal. Dural venous sinuses are patent. AORTIC ARCH: Normal visualized aortic arch. Normal origins of the brachiocephalic, left common carotid, and left subclavian arteries. RIGHT CAROTID ARTERIES: Normal right common carotid artery (CCA). Normal right common carotid bulb. Normal origin of the right internal carotid (ICA) artery without a hemodynamically significant stenosis. Normal visualized cervical portion of the right internal carotid artery. Normal origin of the right external carotid artery (ECA). LEFT CAROTID ARTERIES: Normal left common carotid artery (CCA). Normal left common carotid bulb. Normal origin of the left internal carotid (ICA) artery without a hemodynamically significant stenosis. Normal visualized cervical portion of the left internal carotid artery. Normal origin of the left external carotid artery (ECA). VERTEBRAL ARTERIES: Normal bilateral vertebral arteries. CT/CTA Head AND Neck W/ Contrast IMPRESSION: 1. Normal paranasal sinuses. No acute or chronic sinusitis. 2. Normal cranial cervical arteries and veins. Electronically Signed: Lisandra Rome, at 21:28 EST Tel , Service support ,
[2020-01-29] MEDS: 0.9% Normal Saline 1,000 ML 999 ML IV (20:06)
[2020-01-29] MEDS: DiphenhydrAMINE 50 MG/ML Syringe 25 MG IV (20:06)
[2020-01-29] MEDS: proCHLORPERazine 10 MG/2 ML Vial IV (20:08)
[2020-01-29 20:17] LABS: Absolute Lymphocyte Count 1.83 X10^3/uL (0.83-4.51); Absolute Neutrophil Count 5.9 X10^3/uL (2.0-7.7); Basophil# 0.04 X10^3/uL; Basophil% 0.5 % (0-1); Eosinophil# 0.07 X10^3/uL; Eosinophils% 0.8 % (0-5); Hematocrit 43.1 % (37-47); Hemoglobin 14.3 g/dL (12.0-15.0); Lymphocyte # 1.83 X10^3/ul (4.0); Lymphocyte % 21.3 % (19-41); Mean Corp Hgb Conc 33.2 g/dL (32-36); Mean Corpuscular Hgb 30.1 pg (27.0-32.0); Mean Corpuscular Volume 90.7 fL (81-99); Mean Platelet Vol. 10.2 fl (6.2-12.0); Monocyte# 0.67 X10^3/uL; Monocyte% 7.8 % (0-10); NRBC Flagged by Analyzer 0 % (0-5); Neutrophil # 5.94 X10^3/uL (2.7-7.7); Neutrophil % 69.3 % (47-70); Platelet Count 349 K/mm3 (150-450); RBC Distribution Width CV 12.2 % (11.6-14.6); RBC Distribution Width SD 40.5 fl (35.1-43.9); Red Blood Count 4.75 M/mm3 (4.2-5.4); White Blood Count 8.6 K/mm3 (4.4-11.0)
[2020-01-29 20:35] LABS: AST(SGOT) 14 U/L (15-37); Alanine Aminotransfer ALT/SGPT 34 U/L (13-56); Alkaline Phosphatase 155 U/L (45-117); Anion Gap 6 (5-15); BUN 14 mg/dL (7-18); BUN/Creat Ratio 19.3 RATIO (10-20); Calcium,Total 8.9 mg/dL (8.5-10.1); Chloride 108 mmol/L (98-107); Creatinine, Serum 0.72 mg/dL (0.55-1.02); EST Glomerular Filtration Rate 105 mL/min (>60); Est Glom Filt Rate - Afr Amer 128 mL/min (>60); Estimated Creatinine Clearance 98.33 ml/min; Glucose 93 mg/dL (74-106); Potassium 3.6 mmol/L (3.5-5.1); Sodium Level 139 mmol/L (136-145)
[2020-01-29 20:45] LABS: Internal QC Validated? YES +Cl - CLEAR BKGD; Pregnancy, Serum, hCG Quali. NEGATIVE Negative
[2020-01-29 20:54] LABS: Color, Urine Yellow (Yellow); Glucose, Dipstick Normal (Normal); Ketone-Dipstick Negative (Negative); Leukocyte Esterase-Dipstick Negative /ul (Negative); Mucous, Urine 0 SEEN /hpf (<or=2+); Nitrite-Dipstick Negative (Negative); Occult Blood-Urine 250 /ul (Negative); Protein-Dipstick 30 mg/dl (Negative); Specific Gravity, Urine 1.015 (1.002-1.030); Urine Clarity Clear (Clear); Urine Urobilinogen Normal (Normal); White Blood Cells 0 SEEN /hpf (0-5)
[2020-01-29 21:00] LABS: Urine Bilirubin Dipstick 1 mg/dL (Negative)
[2020-01-29 21:01] LABS: Bacteria 1+ /hpf (None Seen); Red Blood Cells-Urine 5-10 SEEN /hpf (0-5); Squamous Epithelial Cells - UA 0-5 SEEN /hpf (5-10)
[2020-01-29 21:20] VITALS: RESP 16
[2020-01-29] MEDS: Ketorolac 15 MG/ML Vial IV (22:36)
[2020-01-29 22:37] VITALS: BP 117/74; PULSE 83; RESP 14; O2SAT 96
--- NOTE | 2020-01-29 22:37 | ED.VIS.GEN ---
History of Present Illness Chief Complaint: Headache Informant: Patient Narrative: Patient is a 24-year-old female with history of osteogenesis imperfecta and scoliosis presenting with headache. Patient states has had a headache for the past 3 days but became sharp yesterday. She states it is really bad just above her right eyebrow. She describes the headache as sharp. She has some associated nausea and vomiting is been ongoing. She was seen at [facility] ER this morning where she was given an IM dose of Toradol and had a head CT. The CT was reviewed on clinic which was negative. Patient states she tried ibuprofen, Tylenol and Zofran at home with no relief of her symptoms. She felt that her headache never really got any better after being at [facility] [place] so she came to our ER for further evaluation. She is the pain radiates to her neck. She denies any fever or chills. She does have some associated lightheadedness. She states she has been on multiple course of antibiotics lately because of sinus infections. She denies any photophobia or phonophobia. No other complaints at this time. Past Medical History - Allergies and Home Meds Allergies/Adverse Reactions: Allergies No Known Allergies Allergy (Verified 01/29/20 18:54) Primary Care Physician: Beryl Islas DO [Primary Care Provider] - Past Medical History: - - Scoliosis, osteogenesis imperfecta Surgical History: cholecystectomy, - - Lives: Spouse/ Significant Other Smoking Status: Never smoker Review of Systems General: Denies: Chills, Fever, Sweats Eyes: Denies: Visual changes - bilaterally, Diplopia ENT: Denies: Rhinorrhea, Sore throat Cardiovascular: Denies: Chest pain, Palpitations Respiratory: Denies: Dyspnea, Cough, Dyspnea on exertion Gastrointestinal: Reports: Nausea, Vomiting. Denies: Abdominal pain, Diarrhea Genitourinary: Denies: Dysuria, Hematuria, Frequency Musculoskeletal: Denies: Back pain, Extremity Pain Skin: Denies: Rash, Wounds Neurological: Reports: Headache. Denies: Weakness, Numbness Physical Exam Vital Signs/Narrative: Vital Signs Temp Pulse Resp BP Pulse Ox 01/29/20 21:20 16 01/29/20 18:52 98.1 F 98 16 124/71 H 97 Inital Vital Signs reviewed: Yes General: Well nourished, Well developed, No Acute Distress Head: Normocephalic, Atraumatic Eyes: Perrl, EOMI ENT: Moist mucous membranes, No rhinorrhea, TM's clear Neck: Supple, Nontender, No lymphadenopathy, No JVD, - - No meningeal signs Cardiovascular: Regular rate, Regular rhythm, No murmurs Respiratory: No distress, CTA bilaterally, Chest nontender Abdomen: Soft, Nontender, Nondistended, Normal bowel sounds Back: Nontender, Normal Inspection Extremities: Nontender, No edema Skin: Normal color, No rash Neurological: Alert, Oriented x3, Cranial nerves II-XII grossly intact, Normal Strength, Normal Sensation, Normal Gait Psychological: Normal affect, Normal Mood Diagnostic/Tx/Re-eval Clinical Impression(s) from Imaging Studies Head/Neck CTA 01/29/20 19:38 IMPRESSION: 1. Normal paranasal sinuses. No acute or chronic sinusitis. 2. Normal cranial cervical arteries and veins. Electronically Signed: Lisandra Rome, at 21:28 EST Tel , Service support , Laboratory Data 01/29/20 01/29/20 01/29/20 20:05 20:05 20:43 WBC 8.6 RBC 4.75 Hgb 14.3 Hct 43.1 MCV 90.7 MCH 30.1 MCHC 33.2 RDW Std Deviation 40.5 RDW Coeff of Sharmin 12.2 Plt Count 349 MPV 10.2 Immature Gran % (Auto) 0.300 Neut % (Auto) 69.3 Lymph % (Auto) 21.3 [place] % (Auto) 7.8 Eos % (Auto) 0.8 Baso % (Auto) 0.5 Absolute Neuts (auto) 5.9 Absolute Lymphs (auto) 1.83 Nucleated RBC % 0 Sodium 139 Potassium 3.6 Chloride 108 H Carbon Dioxide 25.0 Anion Gap 6 BUN 14 Creatinine 0.72 Estim Creat Clear Calc 98.33 Est GFR (MDRD) Af Amer 128 Est GFR (MDRD) Non-Af 105 BUN/Creatinine Ratio 19.3 Glucose 93 Calcium 8.9 Total Bilirubin 0.60 AST 14 L ALT 34 Alkaline Phosphatase 155 H Total Protein 8.0 Albumin 4.0 Globulin 4.0 Albumin/Globulin Ratio 1.0 Serum , Qual Urine Color Yellow Urine Clarity Clear Urine pH 6.0 Ur Specific [place] 1.015 Urine Protein 30 H Urine Glucose (UA) Normal Urine Ketones Negative Urine Occult Blood 250 H Urine Nitrite Negative Urine Bilirubin 1 H Urine Urobilinogen Normal Ur Leukocyte Esterase Negative Urine RBC 5-10 SEEN Urine WBC 0 SEEN Ur Squamous Epith Cells 0-5 SEEN Urine Bacteria 1+ Urine Mucus 0 SEEN 01/29/20 Unknown WBC RBC Hgb Hct MCV MCH MCHC RDW Std Deviation RDW Coeff of Sharmin Plt Count MPV Immature Gran % (Auto) Neut % (Auto) Lymph % (Auto) [place] % (Auto) Eos % (Auto) Baso % (Auto) Absolute Neuts (auto) Absolute Lymphs (auto) Nucleated RBC % Sodium Potassium Chloride Carbon Dioxide Anion Gap BUN Creatinine Estim Creat Clear Calc Est GFR (MDRD) Af Amer Est GFR (MDRD) Non-Af BUN/Creatinine Ratio Glucose Calcium Total Bilirubin AST ALT Alkaline Phosphatase Total Protein Albumin Globulin Albumin/Globulin Ratio Serum , Qual NEGATIVE Urine Color Urine Clarity Urine pH Ur Specific [place] Urine Protein Urine Glucose (UA) Urine Ketones Urine Occult Blood Urine Nitrite Urine Bilirubin Urine Urobilinogen Ur Leukocyte Esterase Urine RBC Urine WBC Ur Squamous Epith Cells Urine Bacteria Urine Mucus - Medical Decision Making Patient evaluated for worsening headache. Headaches been present for the past [address] earlier today which was negative. She was given IM Toradol with no relief of her symptoms. She is continued have nausea and vomiting is tried Zofran at home with no relief. Patient is given IV fluids and IV Benadryl/Compazine with improvement of her symptoms. I did obtain a CTA of the head and neck to rule out any acute vascular process given that her symptoms acutely worsened yesterday and is more pinpoint behind her right eye. This is negative. Patient is then given IV Toradol. Her imaging is not consistent with a sinusitis and do not think antibiotics are indicated. She has a normal neurologic exam. She does not have meningeal signs. I think she stable for outpatient follow-up with her primary care doctor. She is discharged home with a course of Phenergan and instructed to continue to alternate Tylenol and ibuprofen. Patient is counseled on signs and symptoms requiring return to the emergency room. Patient verbalizes agreement and understand this plan. Patient discharged home in stable and improved condition. ED Disposition - Plan for ED Patient: Disposition: Home or Assisted Living Diagnosis: Headache Instructions: ED Headache Unspecified Prescriptions: proMETHazine tablet [Phenergan] 25 mg PO Q6H PRN PRN #10 tab PRN Reason: Nausea Transmission Status: Pending to [facility]/pharmacy #[id number] Referrals: Beryl Islas DO [Primary Care Provider] - Additional Instructions: The exact cause of your headaches is not clear. It does not appear that you have a sinus infection or any acute process in your brain. Continue to alternate Tylenol and ibuprofen. You have been prescribed a different nausea medicine to help with that symptom. Please follow-up with your primary care doctor.
== END 2020-01-29 22:54 | disposition home or self-care (01) ==
PROVIDERS: Emergency Provider Emergency Medicine; PCP Family Medicine
DX: R51.9 Headache, unspecified (principal); R11.2 Nausea with vomiting, unspecified; R42 Dizziness and giddiness; M41.9 Scoliosis, unspecified; Q78.0 Osteogenesis imperfecta; J32.9 Chronic sinusitis, unspecified; Z90.49 Acquired absence of other specified parts of digestive tract
CPT/HCPCS: 70496; 70498; 80053; 81001; 84703; 85025; 96361; 96374; 96375; 99283; J7030; Q9967; A4216

== ENCOUNTER → 2020-02-03 15:41 | Outpatient (CLI) | payer OTHER, SELFPAY ==
[2020-02-03 13:47] VITALS: BMI 21.7
== END ==
PROVIDERS: PCP Family Medicine; Referring Provider Obstetrics & Gynecology; Visit Provider Obstetrics & Gynecology
DX: R10.2 Pelvic and perineal pain (principal)
CPT/HCPCS: 87070; 87086; 87205

== ENCOUNTER → 2020-02-09 11:21 | Outpatient (CLI) | payer OTHER, SELFPAY ==
[2020-02-03 13:47] VITALS: BMI 21.7
--- NOTE | 2020-02-09 11:22 | US_ITS ---
STUDY: ULTRASOUND OF THE FEMALE PELVIS - COMPLETE REASON FOR EXAM: Female, 24 years old. PELVIC PAIN LMP: 01/20/2020. TECHNIQUE: Transabdominal and Transvaginal TECHNICAL QUALITY: Adequate. COMPARISON: Comparison is made with prior study dated 07/13/2019. FINDINGS: The uterus is anteverted and is in a midline position. The uterus measures 7.7 cm x 4.3 cm x 3.3 cm. Normal uterine cervix. The endometrium measures 1.4 mm in thickness, and is . There is no demonstrated endometrial mass. There is no demonstrated myometrial mass. I.U.D. - The patient does not have an I.U.D. The right ovary is visualized. The right ovary measures 1.4 cm x 1.2 cm x 1.0 cm. There is no right ovarian cyst or ovarian mass. There is no visualized right adnexal mass or complex lesion. There is normal arterial and normal venous vascularity. The left ovary is visualized. The left ovary measures 1.6 cm x 0.8 cm x 0.9 cm. There is no left ovarian cyst or ovarian mass. There is no visualized left adnexal mass or complex lesion. There is normal arterial and normal venous vascularity. There is no fluid in the cul-de-sac. The pre void volume of the bladder was 185 ml. US/Transvaginal Non- IMPRESSION: Normal female pelvis. Electronically Signed: Michel Richardson, at 14:00 EST , Service support ,
--- NOTE | 2020-02-09 11:22 | US_ITS ---
STUDY: ULTRASOUND OF THE FEMALE PELVIS - COMPLETE REASON FOR EXAM: Female, 24 years old. PELVIC PAIN LMP: 01/20/2020. TECHNIQUE: Transabdominal and Transvaginal TECHNICAL QUALITY: Adequate. COMPARISON: Comparison is made with prior study dated 07/13/2019. FINDINGS: The uterus is anteverted and is in a midline position. The uterus measures 7.7 cm x 4.3 cm x 3.3 cm. Normal uterine cervix. The endometrium measures 1.4 mm in thickness, and is . There is no demonstrated endometrial mass. There is no demonstrated myometrial mass. I.U.D. - The patient does not have an I.U.D. The right ovary is visualized. The right ovary measures 1.4 cm x 1.2 cm x 1.0 cm. There is no right ovarian cyst or ovarian mass. There is no visualized right adnexal mass or complex lesion. There is normal arterial and normal venous vascularity. The left ovary is visualized. The left ovary measures 1.6 cm x 0.8 cm x 0.9 cm. There is no left ovarian cyst or ovarian mass. There is no visualized left adnexal mass or complex lesion. There is normal arterial and normal venous vascularity. There is no fluid in the cul-de-sac. The pre void volume of the bladder was 185 ml. US/Pelvic (Non ) IMPRESSION: Normal female pelvis. Electronically Signed: Michel Richardson, at 14:00 EST , Service support ,
== END ==
PROVIDERS: PCP Family Medicine; Referring Provider Obstetrics & Gynecology; Visit Provider Obstetrics & Gynecology
DX: R10.2 Pelvic and perineal pain (principal)
CPT/HCPCS: 76830; 76856; 93976

== ENCOUNTER → 2020-02-20 15:37 | Outpatient (CLI) | payer OTHER, SELFPAY ==
[2020-02-20 13:07] VITALS: BMI 22.2
== END ==
PROVIDERS: PCP Family Medicine; Referring Provider Obstetrics & Gynecology; Visit Provider Obstetrics & Gynecology
DX: N89.8 Other specified noninflammatory disorders of vagina (principal)
CPT/HCPCS: 87070; 87205

== ENCOUNTER → 2020-03-13 16:38 | Outpatient (CLI) | payer OTHER, SELFPAY ==
[2020-03-13 14:54] VITALS: BMI 21.8
== END ==
PROVIDERS: PCP Family Medicine; Referring Provider Nurse Practitioner Women's Health; Visit Provider Nurse Practitioner Women's Health
DX: N76.0 Acute vaginitis (principal)
CPT/HCPCS: 87070; 87205

== ENCOUNTER → 2020-04-05 16:28 | Outpatient (CLI) | payer OTHER, SELFPAY ==
[2020-04-05 12:54] VITALS: BMI 21.2
== END ==
PROVIDERS: PCP Family Medicine; Visit Provider Nurse Practitioner Women's Health
DX: N76.1 Subacute and chronic vaginitis (principal)
CPT/HCPCS: 87070; 87205

== ENCOUNTER 2020-05-08 14:03 | Emergency (ER) | payer OTHER, SELFPAY ==
[2020-04-12 11:16] VITALS: BMI 21.4
[2020-05-08 14:05] VITALS: BP 123/77; PULSE 105; RESP 18; TEMP 36.3; O2SAT 98; BMI 21.9
--- NOTE | 2020-05-08 15:03 | ED.DCSUM_ITS ---
History of Present Illness Chief Complaint: General Illness Informant: Patient Narrative: 24-year-old female presents with sinus congestion and vomiting for day duration. Patient states that she has not had a fever. She was exposed to somebody who had Covid but that was 1 month ago. She denies any diarrhea no shortness of breath. She notes some postnasal drip and cough. She has tried Reglan that she gets for her migraines without control of her vomiting. No rashes. She did a telehealth consult with her doctor and supportive care was recommended. Past Medical History - Allergies and Home Meds Allergies/Adverse Reactions: Allergies No Known Allergies Allergy (Verified 05/08/20 14:03) Primary Care Physician: Beryl Islas DO [Primary Care Provider] - Past Medical History: - - Migraine headaches Surgical History: cholecystectomy, - - Smoking Status: Never smoker Drugs: None Review of Systems General: Denies: Chills, Fever, Sweats Eyes: Denies: Visual changes - bilaterally, Diplopia ENT: Reports: Rhinorrhea, - - sinus congestion and pressure. Denies: Sore throat Cardiovascular: Denies: Chest pain, Palpitations Respiratory: Reports: Cough. Denies: Dyspnea, Dyspnea on exertion Gastrointestinal: Reports: Nausea, Vomiting. Denies: Abdominal pain, Diarrhea, Melena, Hematochezia Genitourinary: Denies: Dysuria, Hematuria, Frequency Musculoskeletal: Denies: Back pain, Extremity Pain Skin: Denies: Rash, Wounds Neurological: Denies: Headache, Weakness, Numbness Physical Exam Vital Signs/Narrative: Vital Signs Temp Pulse Resp BP Pulse Ox 05/08/20 14:05 97.3 F L 105 H 18 123/77 H 98 General: Well nourished, Well developed, No Acute Distress Head: Normocephalic, Atraumatic Eyes: Perrl, EOMI ENT: Moist mucous membranes, Nasal congestion Neck: Supple, Nontender Cardiovascular: Regular rate, Regular rhythm, No murmurs Respiratory: No distress, CTA bilaterally, Chest nontender Abdomen: Soft, Nontender, Nondistended, Normal bowel sounds Back: Nontender, Normal Inspection Extremities: Nontender, No edema Skin: Normal color, No rash Neurological: Alert, Oriented x3, Cranial nerves II-XII grossly intact, Normal Strength, Normal Sensation Psychological: Normal affect, Normal Mood Diagnostic/Tx/Re-eval Laboratory Last Values WBC 12.6 K/mm3 (4.4-11.0) H 05/08/20 15:15 RBC 4.50 M/mm3 (4.2-5.4) 05/08/20 15:15 Hgb 13.3 g/dL (12.0-15.0) 05/08/20 15:15 Hct 39.6 % (37-47) 05/08/20 15:15 MCV 88.0 fL (81-99) 05/08/20 15:15 MCH 29.6 pg (27.0-32.0) 05/08/20 15:15 MCHC 33.6 g/dL (32-36) 05/08/20 15:15 RDW Std Deviation 39.2 fl (35.1-43.9) 05/08/20 15:15 RDW Coeff of Sharmin 12.3 % (11.6-14.6) 05/08/20 15:15 Plt Count 302 K/mm3 (150-450) 05/08/20 15:15 MPV 10.3 fl (6.2-12.0) 05/08/20 15:15 Immature Gran % (Auto) 0.500 % (0.0-0.9) 05/08/20 15:15 Neut % (Auto) 86.4 % (47-70) H 05/08/20 15:15 Lymph % (Auto) 8.3 % (19-41) L 05/08/20 15:15 [place] % (Auto) 4.1 % (0-10) 05/08/20 15:15 Eos % (Auto) 0.3 % (0-5) 05/08/20 15:15 Baso % (Auto) 0.4 % (0-1) 05/08/20 15:15 Absolute Neuts (auto) 10.9 X10^3/uL (2.0-7.7) H 05/08/20 15:15 Absolute Lymphs (auto) 1.05 X10^3/uL (0.83-4.51) 05/08/20 15:15 Nucleated RBC % 0 % (0-5) 05/08/20 15:15 Sodium 140 mmol/L (136-145) 05/08/20 15:15 Potassium 4.2 mmol/L (3.5-5.1) 05/08/20 15:15 Chloride 111 mmol/L (98-107) H 05/08/20 15:15 Carbon Dioxide 24.0 mmol/L (21.0-32.0) 05/08/20 15:15 Anion Gap 5 (5-15) 05/08/20 15:15 BUN 12 mg/dL (7-18) 05/08/20 15:15 Creatinine 0.53 mg/dL (0.55-1.02) L 05/08/20 15:15 Estim Creat Clear Calc 128.22 ml/min 05/08/20 15:15 Est GFR (MDRD) Af Amer 184 mL/min (>60) 05/08/20 15:15 Est GFR (MDRD) Non-Af 152 mL/min (>60) 05/08/20 15:15 BUN/Creatinine Ratio 22.8 RATIO (10-20) H 05/08/20 15:15 Glucose 96 mg/dL (74-106) 05/08/20 15:15 Calcium 8.6 mg/dL (8.5-10.1) 05/08/20 15:15 Total Bilirubin 0.50 mg/dL (0.20-1.00) 05/08/20 15:15 AST 21 U/L (15-37) 05/08/20 15:15 ALT 33 U/L (13-56) 05/08/20 15:15 Alkaline Phosphatase 136 U/L (45-117) H 05/08/20 15:15 Total Protein 7.5 g/dL (6.4-8.2) 05/08/20 15:15 Albumin 4.1 g/dL (3.2-5.0) 05/08/20 15:15 Globulin 3.4 g/dL (2.2-4.2) 05/08/20 15:15 Albumin/Globulin Ratio 1.2 RATIO (0.9-2.4) 05/08/20 15:15 Lipase 88 U/L (73-393) 05/08/20 15:15 Serum , Qual NEGATIVE Negative 05/08/20 15:15 Urine Color Yellow (Yellow) 05/08/20 15:30 Urine Clarity Sl. Cloudy (Clear) 05/08/20 15:30 Urine pH 6.0 (5.0 - 8.0) 05/08/20 15:30 Ur Specific [place] 1.025 (1.002-1.030) 05/08/20 15:30 Urine Protein Negative mg/dl (Negative) 05/08/20 15:30 Urine Glucose (UA) Normal mg/dl (Normal) 05/08/20 15:30 Urine Ketones 5 mg/dl (Negative) H 05/08/20 15:30 Urine Occult Blood Negative /ul (Negative) 05/08/20 15:30 Urine Nitrite Negative (Negative) 05/08/20 15:30 Urine Bilirubin Negative mg/dL (Negative) 05/08/20 15:30 Urine Urobilinogen 1 mg/dl (Normal) H 05/08/20 15:30 Ur Leukocyte Esterase Negative /ul (Negative) 05/08/20 15:30 Urine RBC 0 SEEN /hpf (0-5) 05/08/20 15:30 Urine WBC 0 SEEN /hpf (0-5) 05/08/20 15:30 Ur Squamous Epith Cells 5-10 SEEN /hpf (5-10) 05/08/20 15:30 Urine Bacteria 1+ /hpf (None Seen) 05/08/20 15:30 Urine Mucus 0 SEEN /hpf (<or=2+) 05/08/20 15:30 - Medical Decision Making Covid test is negative. White blood cell count is nonspecifically elevated at 12. Urinalysis contaminated no overt infection. The patient given IV fluids and Zofran. I will write for her to have Zofran at home. Recommend continued oral hydration. ED Disposition - Plan for ED Patient: Disposition: Home or Assisted Living Diagnosis: Viral syndrome, Vomiting, URI (upper respiratory infection) Instructions: ED Vomiting (Adult) Prescriptions: Ondansetron [Zofran Odt] 4 mg PO Q6H PRN PRN #20 tab PRN Reason: Nausea Prescription Printed Referrals: Beryl Islas DO [Primary Care Provider] - As Needed
[2020-05-08] MEDS: 0.9% Normal Saline 1,000 ML 1000 ML IV (15:20)
[2020-05-08] MEDS: Ondansetron 4 MG/2 ML Vial IV (15:21)
[2020-05-08 15:26] LABS: Absolute Lymphocyte Count 1.05 X10^3/uL (0.83-4.51); Absolute Neutrophil Count 10.9 X10^3/uL (2.0-7.7); Basophil# 0.05 X10^3/uL; Basophil% 0.4 % (0-1); Eosinophil# 0.04 X10^3/uL; Eosinophils% 0.3 % (0-5); Hematocrit 39.6 % (37-47); Hemoglobin 13.3 g/dL (12.0-15.0); Lymphocyte # 1.05 X10^3/ul (4.0); Lymphocyte % 8.3 % (19-41); Mean Corp Hgb Conc 33.6 g/dL (32-36); Mean Corpuscular Hgb 29.6 pg (27.0-32.0); Mean Platelet Vol. 10.3 fl (6.2-12.0); Monocyte# 0.52 X10^3/uL; Monocyte% 4.1 % (0-10); NRBC Flagged by Analyzer 0 % (0-5); Neutrophil % 86.4 % (47-70); Platelet Count 302 K/mm3 (150-450); RBC Distribution Width CV 12.3 % (11.6-14.6); RBC Distribution Width SD 39.2 fl (35.1-43.9); White Blood Count 12.6 K/mm3 (4.4-11.0)
[2020-05-08 15:37] LABS: Mucous, Urine 0 SEEN /hpf (<or=2+); Red Blood Cells-Urine 0 SEEN /hpf (0-5); White Blood Cells 0 SEEN /hpf (0-5)
[2020-05-08 15:40] LABS: Color, Urine Yellow (Yellow); Glucose, Dipstick Normal (Normal); Ketone-Dipstick 5 mg/dl (Negative); Leukocyte Esterase-Dipstick Negative /ul (Negative); Nitrite-Dipstick Negative (Negative); Occult Blood-Urine Negative /ul (Negative); Protein-Dipstick Negative (Negative); Specific Gravity, Urine 1.025 (1.002-1.030); Urine Bilirubin Dipstick Negative (Negative); Urine Clarity Sl. Cloudy (Clear); Urine Urobilinogen 1 mg/dl (Normal)
[2020-05-08 15:43] LABS: ALB/GLOB Ratio 1.2 RATIO (0.9-2.4); AST(SGOT) 21 U/L (15-37); Alanine Aminotransfer ALT/SGPT 33 U/L (13-56); Albumin, Serum 4.1 g/dL (3.2-5.0); Alkaline Phosphatase 136 U/L (45-117); Anion Gap 5 (5-15); BUN 12 mg/dL (7-18); BUN/Creat Ratio 22.8 RATIO (10-20); Calcium,Total 8.6 mg/dL (8.5-10.1); Chloride 111 mmol/L (98-107); Creatinine, Serum 0.53 mg/dL (0.55-1.02); EST Glomerular Filtration Rate 152 mL/min (>60); Est Glom Filt Rate - Afr Amer 184 mL/min (>60); Estimated Creatinine Clearance 128.22 ml/min; Globulin 3.4 g/dL (2.2-4.2); Glucose 96 mg/dL (74-106); Lipase 88 U/L (73-393); Potassium 4.2 mmol/L (3.5-5.1); Protein, Total 7.5 g/dL (6.4-8.2); Sodium Level 140 mmol/L (136-145)
[2020-05-08 15:49] LABS: Bacteria 1+ /hpf (None Seen); Squamous Epithelial Cells - UA 5-10 SEEN /hpf (5-10)
[2020-05-08 16:04] LABS: Internal QC Validated? YES +Cl - CLEAR BKGD; Pregnancy, Serum, hCG Quali. NEGATIVE Negative
[2020-05-08 17:05] VITALS: BP 108/74; PULSE 81; RESP 16; O2SAT 98
== END 2020-05-08 17:06 | disposition home or self-care (01) ==
PROVIDERS: Emergency Provider Emergency Medicine; PCP Family Medicine
DX: J06.9 Acute upper respiratory infection, unspecified (principal); R11.10 Vomiting, unspecified; B34.9 Viral infection, unspecified; G43.909 Migraine, unspecified, not intractable, without status migrainosus; Z90.49 Acquired absence of other specified parts of digestive tract
CPT/HCPCS: 80053; 81001; 83690; 84703; 85025; 87426; 96361; 96374; 99283; J7030; J2405

== ENCOUNTER → 2020-05-16 13:13 | Outpatient (CLI) | payer OTHER, SELFPAY ==
[2020-05-16 11:10] VITALS: BMI 22.4
== END ==
PROVIDERS: PCP Family Medicine; Referring Provider Nurse Practitioner Women's Health; Visit Provider Nurse Practitioner Women's Health
DX: N76.1 Subacute and chronic vaginitis (principal)
CPT/HCPCS: 87070; 87205

== ENCOUNTER → 2020-05-24 17:32 | Outpatient (CLI) | payer OTHER, SELFPAY ==
[2020-05-16 11:10] VITALS: BMI 22.4
--- NOTE | 2020-05-24 17:32 | MRI_ITS ---
STUDY: MRI BRAIN WITH AND WITHOUT CONTRAST REASON FOR EXAM: Female, 24 years old. Migriane Headaches TECHNIQUE: Standardized multiplanar fat and water weighted pulse sequences were obtained. 10cc iv dotarem was administered for the contrast portion of the examination. COMPARISON: CTA of the brain 01/29/2020 FINDINGS: Normal size of the ventricles and extra-axial spaces for the patient''s age. Normal white matter tracts of the supratentorial brain. Normal bilateral basal ganglia. Normal thalami. There is no extra-axial fluid accumulation. Normal flow voids within the major intracranial circulation suggesting patency by spin echo criteria. Normal venous enhancement. There is no enhancing intra-axial or extra-axial abnormality. Normal sella turcica, pituitary gland, infundibular stalk, optic chiasm and hypothalamus. Normal tectal plate and pineal gland. Normal midbrain, lety and medulla. Normal cerebellum. Normal basal cisterns. Normal bilateral temporal bones. Normal bilateral internal auditory canals. No demonstrated orbital abnormality, within the constraints of a routine brain study. Normal visualized paranasal sinuses. Normal calvarium and skull base. Normal visualized soft tissue structures. Normal visualized upper cervical spine. MRI/Brain W/WO Contrast IMPRESSION: Normal unenhanced and enhanced MRI of the brain. Electronically Signed: Jesús Luke MD at 19:32 EST , Service support ,
== END ==
LOC: MRI 17:32
PROVIDERS: PCP Family Medicine; Referring Provider Psychiatry & Neurology Neurology; Visit Provider Psychiatry & Neurology Neurology
DX: G43.909 Migraine, unspecified, not intractable, without status migrainosus (principal)
CPT/HCPCS: 70553; A9575

== ENCOUNTER 2020-05-30 18:33 | Emergency (ER) | payer OTHER, SELFPAY ==
[2020-05-16 11:10] VITALS: BMI 22.4
[2020-05-30 18:35] VITALS: BP 134/79; PULSE 93; RESP 17; TEMP 36.6; O2SAT 98; BMI 21.5
--- NOTE | 2020-05-30 18:55 | ED.DCSUM_ITS ---
- ER Visit Summary Date of Service: 05/30/20 Chief Complaint: Abdominal pain, nausea, and vomiting History of Present Illness: The patient is a 24 F who presents with abdominal pain, nausea, and vomiting for the past 1 to 2 weeks. Patient states that it is gotten worse over the past week. Patient states she was seen at [facility] in [place] 3 times in the last week for this. Patient states she was told she had a diverticulum on her CT scan. Patient states she is vomiting up stomach contents. Patient denies any hematemesis or coffee-ground emesis. Patient states she is unable to keep any food down however. Patient states the pain is over the epigastric and right lower quadrant areas. Patient admits to some constipation. Patient denies any melena or hematochezia. Patient denies any dysuria or hematuria. Patient denies any abnormal vaginal bleeding or discharge. Physical Examination: Vital signs are stable. Patient is afebrile. Patient is in no acute distress. Oral mucosa is pink and moist. Neck is supple. Trachea is midline. There is no JVD noted. Heart was regular rate and rhythm. Lungs are clear and equal bilaterally. Abdomen is soft. Bowel sounds are normal. There is epigastric and right lower quadrant tenderness. There is no rebound or guarding noted. Skin is warm dry. Cranial nerves II through XII are intact. There are no focal motor or sensory deficits noted. Extremities are intact. There is no calf tenderness or edema. Test Results: CBC shows white blood cell count of 11.1. Comprehensive metabolic profile was essentially within normal limits. Lipase was normal. Urinalysis does not show any evidence of urinary tract infection. Serum hCG was negative. Emergency Department Course and Treatment: Patient was given morphine and Zofran here. Patient was given IV fluids. Patient states she has Zofran at home which has not been helping. Patient states the Zofran has not helped her nausea here either. Patient was given a dose of Phenergan. Patient was given a prescription for Phenergan suppositories. Patient was instructed to follow-up with her primary care physician in 5 to 7 days. Patient understood and was agreeable with the plan. All questions were answered. Disposition: Discharge home Impression: 1. Abdominal pain This note was generated with [employer] dictation software. It may contain incorrect words, spelling, and punctuation that were not noted in review of the chart prior to signing ED Disposition - Plan for ED Patient: Disposition: Home or Assisted Living Diagnosis: Abdominal pain Instructions: ED Abdominal Pain Unkn Cause Fem Prescriptions: proMETHazine suppository [Phenergan Suppository] 25 mg RECTAL Q6H PRN PRN #6 suppos. PRN Reason: Nausea Transmission Status: Pending to [id number] Referrals: Beryl Islas DO [Primary Care Provider] - 3-5 Days
[2020-05-30] MEDS: Ondansetron 4 MG/2 ML Vial IV (19:33)
[2020-05-30] MEDS: Morphine 4 MG/ML Syringe IV (19:33)
[2020-05-30] MEDS: 0.9% Normal Saline 1,000 ML 1000 ML IV (19:34)
[2020-05-30 19:40] LABS: Bacteria 0 SEEN /hpf (None Seen); Mucous, Urine 0 SEEN /hpf (<or=2+); Red Blood Cells-Urine 0 SEEN /hpf (0-5); White Blood Cells 0 SEEN /hpf (0-5)
[2020-05-30 19:41] LABS: Absolute Lymphocyte Count 1.74 X10^3/uL (0.83-4.51); Absolute Neutrophil Count 8.6 X10^3/uL (2.0-7.7); Basophil# 0.07 X10^3/uL; Basophil% 0.6 % (0-1); Eosinophil# 0.13 X10^3/uL; Eosinophils% 1.2 % (0-5); Hematocrit 38.9 % (37-47); Hemoglobin 13.6 g/dL (12.0-15.0); Lymphocyte # 1.74 X10^3/ul (4.0); Lymphocyte % 15.6 % (19-41); Mean Corpuscular Hgb 30.8 pg (27.0-32.0); Mean Corpuscular Volume 88.2 fL (81-99); Mean Platelet Vol. 10.2 fl (6.2-12.0); Monocyte# 0.57 X10^3/uL; Monocyte% 5.1 % (0-10); NRBC Flagged by Analyzer 0 % (0-5); Neutrophil # 8.59 X10^3/uL (2.7-7.7); Neutrophil % 77.2 % (47-70); Platelet Count 359 K/mm3 (150-450); RBC Distribution Width CV 12.4 % (11.6-14.6); RBC Distribution Width SD 40.1 fl (35.1-43.9); Red Blood Count 4.41 M/mm3 (4.2-5.4); White Blood Count 11.1 K/mm3 (4.4-11.0)
[2020-05-30 19:45] LABS: Color, Urine Yellow (Yellow); Glucose, Dipstick Normal (Normal); Ketone-Dipstick Negative (Negative); Leukocyte Esterase-Dipstick Negative /ul (Negative); Nitrite-Dipstick Negative (Negative); Occult Blood-Urine Negative /ul (Negative); Protein-Dipstick Negative (Negative); Urine Bilirubin Dipstick Negative (Negative); Urine Clarity Clear (Clear); Urine Urobilinogen Normal (Normal)
[2020-05-30 19:52] LABS: Internal QC Validated? YES +Cl - CLEAR BKGD; Pregnancy, Serum, hCG Quali. NEGATIVE Negative
[2020-05-30 19:56] LABS: Squamous Epithelial Cells - UA 0-5 SEEN /hpf (5-10)
[2020-05-30 19:57] LABS: ALB/GLOB Ratio 1.2 RATIO (0.9-2.4); AST(SGOT) 13 U/L (15-37); Alanine Aminotransfer ALT/SGPT 31 U/L (13-56); Albumin, Serum 4.4 g/dL (3.2-5.0); Alkaline Phosphatase 129 U/L (45-117); Anion Gap 8 (5-15); BUN 12 mg/dL (7-18); BUN/Creat Ratio 17.1 RATIO (10-20); Calcium,Total 8.6 mg/dL (8.5-10.1); Chloride 112 mmol/L (98-107); EST Glomerular Filtration Rate 109 mL/min (>60); Est Glom Filt Rate - Afr Amer 132 mL/min (>60); Globulin 3.7 g/dL (2.2-4.2); Glucose 91 mg/dL (74-106); Lipase 163 U/L (73-393); Potassium 3.6 mmol/L (3.5-5.1); Protein, Total 8.1 g/dL (6.4-8.2); Sodium Level 140 mmol/L (136-145)
[2020-05-30] MEDS: proMETHazine 25 MG/ML Syringe 6.25 MG IM (20:21)
[2020-05-30 20:37] VITALS: PULSE 88; RESP 18
== END 2020-05-30 20:41 | disposition home or self-care (01) ==
PROVIDERS: Emergency Provider Emergency Medicine; PCP Family Medicine
DX: R10.9 Unspecified abdominal pain (principal); R11.2 Nausea with vomiting, unspecified; K59.00 Constipation, unspecified
CPT/HCPCS: 80053; 81001; 83690; 84703; 85025; 96361; 96372; 96374; 96375; 99283; J7030; A4216; J2405

== ENCOUNTER → 2020-06-05 16:09 | Outpatient (CLI) | payer OTHER, SELFPAY ==
[2020-06-05 13:33] VITALS: BMI 21.9
== END ==
PROVIDERS: PCP Family Medicine; Referring Provider Nurse Practitioner Women's Health; Visit Provider Nurse Practitioner Women's Health
DX: N76.1 Subacute and chronic vaginitis (principal)
CPT/HCPCS: 87070; 87205

== ENCOUNTER → 2020-07-03 16:02 | Outpatient (CLI) | payer OTHER, SELFPAY ==
[2020-07-03 13:15] VITALS: BMI 22.0
== END ==
PROVIDERS: PCP Family Medicine; Visit Provider Nurse Practitioner Women's Health
DX: N76.1 Subacute and chronic vaginitis (principal)
CPT/HCPCS: 87070; 87077; 87205

== ENCOUNTER → 2020-07-19 18:07 | Outpatient (CLI) | payer OTHER, SELFPAY ==
[2020-07-03 13:15] VITALS: BMI 22.0
--- NOTE | 2020-07-19 18:09 | US_ITS ---
STUDY: ULTRASOUND OF THE FEMALE PELVIS - COMPLETE REASON FOR EXAM: Female, 25 years old. Pelvic pain LMP: None. TECHNIQUE: Transabdominal and Transvaginal TECHNICAL QUALITY: Adequate. COMPARISON: Comparison is made with prior study dated 02/09/2020. FINDINGS: The uterus is anteverted and is in a midline position. The uterus measures 6.2 cm x 3.9 cm x 2.7 cm. Normal uterine cervix. The endometrium measures 6 mm in thickness, and is hyperechoic. There is no demonstrated endometrial mass. There is no demonstrated myometrial mass. I.U.D. - The patient does not have an I.U.D. The right ovary is visualized. The right ovary measures 2.8 cm x 2 cm x 1.6 cm. There is no right ovarian cyst or ovarian mass. There is no visualized right adnexal mass or complex lesion. There is normal arterial and normal venous vascularity. The left ovary is visualized. The left ovary measures 2.1 cm x 1.4 cm x 1.3 cm. There is no left ovarian cyst or ovarian mass. There is no visualized left adnexal mass or complex lesion. There is normal arterial and normal venous vascularity. There is no fluid in the cul-de-sac. The pre void volume of the bladder was 56 ml. Polycystic ovary disease: No. US/Pelvic (Non ) IMPRESSION: Normal female pelvis. Electronically Signed: Michel Richardson MD at 12:30 EDT , Service support ,
--- NOTE | 2020-07-19 18:09 | US_ITS ---
STUDY: ULTRASOUND OF THE FEMALE PELVIS - COMPLETE REASON FOR EXAM: Female, 25 years old. Pelvic pain LMP: None. TECHNIQUE: Transabdominal and Transvaginal TECHNICAL QUALITY: Adequate. COMPARISON: Comparison is made with prior study dated 02/09/2020. FINDINGS: The uterus is anteverted and is in a midline position. The uterus measures 6.2 cm x 3.9 cm x 2.7 cm. Normal uterine cervix. The endometrium measures 6 mm in thickness, and is hyperechoic. There is no demonstrated endometrial mass. There is no demonstrated myometrial mass. I.U.D. - The patient does not have an I.U.D. The right ovary is visualized. The right ovary measures 2.8 cm x 2 cm x 1.6 cm. There is no right ovarian cyst or ovarian mass. There is no visualized right adnexal mass or complex lesion. There is normal arterial and normal venous vascularity. The left ovary is visualized. The left ovary measures 2.1 cm x 1.4 cm x 1.3 cm. There is no left ovarian cyst or ovarian mass. There is no visualized left adnexal mass or complex lesion. There is normal arterial and normal venous vascularity. There is no fluid in the cul-de-sac. The pre void volume of the bladder was 56 ml. Polycystic ovary disease: No. US/Transvaginal Non- IMPRESSION: Normal female pelvis. Electronically Signed: Michel Richardson MD at 12:30 EDT , Service support ,
== END ==
PROVIDERS: PCP Family Medicine; Referring Provider Obstetrics & Gynecology; Visit Provider Obstetrics & Gynecology
DX: R10.2 Pelvic and perineal pain (principal)
CPT/HCPCS: 76830; 76856; 93976

== ENCOUNTER → 2020-09-05 16:27 | Outpatient (CLI) | payer OTHER, SELFPAY ==
[2020-09-05 14:34] VITALS: BMI 22.6
== END ==
PROVIDERS: PCP Family Medicine; Referring Provider Nurse Practitioner Women's Health; Visit Provider Nurse Practitioner Women's Health
DX: N76.0 Acute vaginitis (principal)
CPT/HCPCS: 87070; 87205

== ENCOUNTER → 2020-09-29 17:24 | Outpatient (CLI) | payer OTHER, SELFPAY ==
[2020-09-05 14:34] VITALS: BMI 22.6
[2020-10-04 16:20] LABS: Calprotectin, Stool 28 ug/g (0-120)
== END ==
PROVIDERS: PCP Family Medicine; Visit Provider Nurse Practitioner
DX: R19.7 Diarrhea, unspecified (principal)
CPT/HCPCS: 83630; 83993; 87493; 87506

== ENCOUNTER → 2020-12-25 12:38 | Outpatient (CLI) | payer OTHER, SELFPAY | PROVIDERS: PCP Family Medicine; Referring Provider Nurse Practitioner Women's Health; Visit Provider Nurse Practitioner Women's Health | DX: N94.9 Unspecified condition associated with female genital organs and menstrual cycle (principal); N76.1 Subacute and chronic vaginitis | CPT/HCPCS: 87070; 87086; 87088; 87205 ==

== ENCOUNTER → 2021-01-21 15:42 | Outpatient (CLI) | payer OTHER, SELFPAY ==
--- NOTE | 2021-01-21 15:45 | US_ITS ---
STUDY: ULTRASOUND OF THE FEMALE PELVIS - COMPLETE REASON FOR EXAM: Female, 25 years old. Pelvic pain. LMP: Unknown. TECHNIQUE: Transabdominal and Transvaginal TECHNICAL QUALITY: Adequate. COMPARISON: 07/19/2020. FINDINGS: The uterus is anteverted and is in a midline position. The uterus measures 8.4 x 5.5 x 2.8 cm. Normal uterine cervix. The endometrium measures 4.4 mm in thickness, and is heterogeneous (striated). There is no demonstrated endometrial mass. There is no demonstrated myometrial mass. I.U.D. - The patient does not have an I.U.D. The right ovary is visualized. The right ovary measures 2.6 x 0.2 x 1.9 cm. There are multiple follicles of the right ovary without a dominant cyst. There is no visualized right adnexal mass or complex lesion. There is normal arterial and normal venous vascularity. The left ovary is visualized. The left ovary measures 2.3 x 1.3 x 1.1 cm. There are multiple follicles of the left ovary without a dominant cyst. There is no visualized left adnexal mass or complex lesion. There is normal arterial and normal venous vascularity. There is minimal fluid in the cul-de-sac. The pre void volume of the bladder was 381 ml. The urinary bladder is grossly normal. Polycystic ovary disease: No. US/Pelvic (Non ) IMPRESSION: No acute pelvic abnormality or major interval change. Electronically Signed: Lei Ann DO at 17:02 EDT Tel [phone], Service support ,
--- NOTE | 2021-01-21 15:45 | US_ITS ---
STUDY: ULTRASOUND OF THE FEMALE PELVIS - COMPLETE REASON FOR EXAM: Female, 25 years old. Pelvic pain. LMP: Unknown. TECHNIQUE: Transabdominal and Transvaginal TECHNICAL QUALITY: Adequate. COMPARISON: 07/19/2020. FINDINGS: The uterus is anteverted and is in a midline position. The uterus measures 8.4 x 5.5 x 2.8 cm. Normal uterine cervix. The endometrium measures 4.4 mm in thickness, and is heterogeneous (striated). There is no demonstrated endometrial mass. There is no demonstrated myometrial mass. I.U.D. - The patient does not have an I.U.D. The right ovary is visualized. The right ovary measures 2.6 x 0.2 x 1.9 cm. There are multiple follicles of the right ovary without a dominant cyst. There is no visualized right adnexal mass or complex lesion. There is normal arterial and normal venous vascularity. The left ovary is visualized. The left ovary measures 2.3 x 1.3 x 1.1 cm. There are multiple follicles of the left ovary without a dominant cyst. There is no visualized left adnexal mass or complex lesion. There is normal arterial and normal venous vascularity. There is minimal fluid in the cul-de-sac. The pre void volume of the bladder was 381 ml. The urinary bladder is grossly normal. Polycystic ovary disease: No. US/Transvaginal Non- IMPRESSION: No acute pelvic abnormality or major interval change. Electronically Signed: Lei Ann DO at 17:02 EDT Tel [phone], Service support ,
== END ==
PROVIDERS: PCP Family Medicine; Referring Provider Nurse Practitioner Women's Health; Visit Provider Nurse Practitioner Women's Health
DX: R10.2 Pelvic and perineal pain (principal)
CPT/HCPCS: 76830; 76856; 93976

== ENCOUNTER 2021-04-08 17:15 | Outpatient (CLI) | payer OTHER, SELFPAY ==
[2021-04-11 16:48] LABS: HPV Reflexed? NOT INDICATED
== END 2021-04-08 23:59 | disposition short-term general hospital (02) ==
LOC: LABSPEC 17:15
PROVIDERS: PCP Family Medicine; Visit Provider Obstetrics & Gynecology
DX: N89.8 Other specified noninflammatory disorders of vagina (principal); Z12.4 Encounter for screening for malignant neoplasm of cervix
CPT/HCPCS: 87070; 87077; 87205; 88175; G0145

== ENCOUNTER 2021-07-03 06:37 | Outpatient (CLI) | payer OTHER, SELFPAY | END 2021-07-03 23:59 | disposition home or self-care (01) | LOC: LABSPEC 07-04 06:38 | PROVIDERS: PCP Family Medicine; Referring Provider Obstetrics & Gynecology; Visit Provider Obstetrics & Gynecology | DX: N76.0 Acute vaginitis (principal) | CPT/HCPCS: 87070; 87205 ==

== ENCOUNTER → 2021-12-12 | Outpatient (CLI) | payer OTHER, SELFPAY | END | disposition home or self-care (01) | PROVIDERS: PCP Family Medicine; Visit Provider Obstetrics & Gynecology | DX: N89.8 Other specified noninflammatory disorders of vagina (principal) | CPT/HCPCS: 87070; 87086; 87088; 87205 ==

== ENCOUNTER → 2022-02-27 | Outpatient (CLI) | payer OTHER, MEDICAID, SELFPAY | END | disposition home or self-care (01) | PROVIDERS: PCP Family Medicine; Visit Provider Obstetrics & Gynecology | DX: N89.8 Other specified noninflammatory disorders of vagina (principal) | CPT/HCPCS: 87070; 87205 ==

== ENCOUNTER 2022-04-03 16:38 | Observation (INO) | payer OTHER, MEDICAID, SELFPAY ==
[2022-04-03] VITALS (8 sets, daily range): BP systolic 113–126; BP diastolic 32–96; PULSE 97–127; RESP 13–23; TEMP 36.6–37.1; O2SAT 95–99; BMI 33.3
--- NOTE | 2022-04-03 17:08 | EKG12_ITS ---
Test Reason : GENERAL Blood Pressure : / mmHG Vent. Rate : 114 BPM Atrial Rate : 114 BPM P-R Int : 132 ms QRS Dur : 084 ms QT Int : 320 ms P-R-T Axes : 059 055 064 degrees QTc Int : 441 ms Sinus tachycardia Nonspecific T wave abnormality Abnormal ECG Confirmed by ABISAI NARVAEZ, MONCHO ([id number]), publications editor KALA LANDIN ([id number]) on 04/07/2022 12:34:40 PM Referred By: Confirmed By:MONCHO BARONE MD
--- NOTE | 2022-04-03 17:09 | EDS_ITS ---
HPI History of Present Illness Chief Complaint: Nausea/Vomiting Informant: patient Narrative Narrative: Says she has been vomiting for the last week off-and-on. She started having racing heartbeat and left-sided chest pain prior to that, but in the past 4 days since she has been unable to keep down her propranolol, all the symptoms are worse. She has been lightheaded and at times near syncopal but no syncope. No dyspnea. She was admitted a month or so ago for fast heart rate at [facility], she states she was discharged and not told exactly why her heart was too fast but they put her on propranolol. States she was seen at the ER in [place] 2 hours ago, she was given Reglan which made her more shaky, as well as Ativan, and no other medications and they discharged her, her doctor told her to come here. [facility] Medical History Anxiety Depression Osteogenesis imperfecta Home Medications amitriptyline 10 mg tablet 20 mg PO QHS #60 tabs 04/22/21 [Rx Last Taken Unknown] ubrogepant 100 mg tablet (Ubrelvy) 100 mg PO ONCE PRN migraine headache #48 tabs 04/22/21 [Rx Last Taken Unknown] tramadol 50 mg tablet 50 mg PO DAILY 02/27/22 [History Last Taken Unknown] medroxyprogesterone 150 mg/mL intramuscular suspension (Depo-Provera) 150 mg IM [id number] #1 mL 03/19/22 [Rx Last Taken Unknown] ondansetron 4 mg disintegrating tablet 8 mg PO Q8H PRN PRN Nausea #20 tabs 04/03/22 [Rx Last Taken Unknown] Allergy/AdvReac Type Severity Reaction Status Date / Time sulfamethoxazole Allergy Severe Rash Verified 04/03/22 16:51 [From Bactrim] trimethoprim [From Bactrim] Allergy Severe Rash Verified 04/03/22 16:51 Family History Mother TIA (transient ischemic attack) Surgical History H/O sinus surgery History of dilatation and curettage Hx of cholecystectomy S/P Social History Smoking Status: Never smoker alcohol intake: never substance use type: does not use caffeine: Yes what type of physical activity do you participate in: walking seatbelt use: always do you feel safe at home: Yes additional social history: Paul Patient sahm ROS ROS ED Constitutional Constitutional ED: Denies chills or fever(s) Eyes Eyes: Denies change in vision or diplopia ENT ENT ED: Denies rhinorrhea or sore throat Cardiovascular Cardiovascular: Reports chest pain, lightheadedness, palpitations and racing heartbeat Respiratory/Chest Respiratory/Chest: Denies cough or dyspnea Gastrointestinal Gastrointestinal: Reports nausea and vomiting; Denies abdominal pain, diarrhea or melena Genitourinary Genitourinary ED: Denies dysuria or hematuria Musculoskeletal Musculoskeletal: Denies back pain or neck pain Integumentary Denies abscess or rash Neurologic Neurologic: Denies headache(s), paresthesias or weakness Psychiatric Psychiatric: Reports anxiety; Denies suicidal thoughts EXAM Physical Exam Const Vital Signs: 04/03/22 16:38 04/03/22 16:58 04/03/22 19:10 Temperature 98.5 F 98.8 F Temperature Source Temporal Oral Pulse Rate 122 H 120 H 106 H Respiratory Rate 16 18 13 Blood Pressure 113/44 L 124/88 H 118/83 H Blood Pressure Mean 67 100 94 Pulse Ox 97 97 99 Oxygen Delivery Method Room Air Room Air Room Air 04/03/22 19:13 04/03/22 21:01 04/03/22 21:56 Temperature Temperature Source Pulse Rate 119 H 117 H 127 H Respiratory Rate 15 18 18 Blood Pressure 118/83 H 126/96 H 123/78 H Blood Pressure Mean 94 106 93 Pulse Ox 95 98 96 Oxygen Delivery Method Room Air Room Air Room Air Positive well nourished and well developed General Appearance ED: well developed and NAD HEENT Reports moist mucous membranes normocephalic and atraumatic Eyes PERRL and EOMs intact bilaterally Eyes Narrative: blue sclera Neck full ROM and supple Resp normal respiratory effort and clear to auscultation bilaterally Cardio regular rate, regular rhythm and no murmurs Rate: tachycardic GI non-distended GI Narrative: Mildly tender epigastrium, no other areas of tenderness. No guarding or rebound. Auscultation: normoactive bowel sounds Palpation: soft Back/Spine no CVA tenderness General Back: other FROM Extremity normal to inspection General Extremety ED: Negative for edema, pulses abnormal or tenderness General Extremity: Negative for edema or pulses abnormal Neuro oriented x3, CN's II-XII intact bilaterally and no sensory deficits noted Neuro Narrative: Tremulous in upper extremities, it goes away when she has intention with regards to motor Sensorium / Orientation: awake and alert Motor Exam: strength 5/5 throughout Psych Mood & Affect: anxious Skin no rashes or lesions noted and no wounds MDM MDM MDM Narrative Medical decision making narrative: Other than tachycardia the patient's EKG is normal, her chest x-ray 2 views normal on my interpretation without any signs of mediastinal widening or infiltrate or pneumothorax, she does have a significant thoracic scoliosis. Radiology interpretation reviewed. Her labs are normal including her troponin and lipase and liver enzymes. I do not think this is cardiac chest pain, but since she has been nauseated and vomiting and withdrawing from her Inderal, that could be why she is tachycardic right now. She is not having any dysrhythmias or ectopy. In addition to IV fluids and Zofran she was given IV propranolol 2 mg. On reevaluation, her nausea is still present although a little better, and her heart rate is down into the 90s. Her palpitations resolved. She still has the other symptoms. She refused the Benadryl I ordered, saying I had 2 doses of it earlier. She states she gets more shaky with Phenergan so she does not want that, and she is still shaky. I think this is probably her anxiety. She had Ativan earlier at the other ER according to her and it did not help so I do not think we need to repeat that. I offered her Thorazine, she is comfortable with that so she was treated without a more IV fluids. The Thorazine expectedly made her sleepy, I was able to easily arouse her. This did improve. When she was sleeping her tremor was resolved and when I would wake her up, it would restart, intermittently. Her work-up is extremely unremarkable. I think the majority of this is withdrawal from the Inderal over the past 4 days making her symptoms worse. She initially was able to keep some water down, but on reevaluation she is vomiting again. She is tremulous. She has some clonus but it is fatigable, bilaterally. Possibly hyper reflexive. She is on Prozac she states for anxiety, but if she has not been able to keep her pills down for the last 4 days I do not know that this would be serotonin syndrome. She states nor jasper she does not have a tremor at all, it has only been the past week or so. Given the intractable vomiting and feeling poorly, she has a high likelihood of return visit so I will discuss with hospitalist for inpatient observation. Lab Data Attestation: I reviewed the patient's lab results. Labs: Laboratory Results - last 24 hr 04/03/22 04/03/22 17:37 17:37 WBC 8.9 RBC 4.32 Hgb 12.7 Hct 37.7 MCV 87.3 MCH 29.4 MCHC 33.7 RDW Std Deviation 39.7 RDW Coeff of Sharmin 12.3 Plt Count 292 MPV 9.6 Immature Gran % (Auto) 0.500 Neut % (Auto) 73.8 H Lymph % (Auto) 17.7 L [place] % (Auto) 7.0 Eos % (Auto) 0.3 Baso % (Auto) 0.7 Absolute Neuts (auto) 6.6 Absolute Lymphs (auto) 1.57 Nucleated RBC % 0 Sodium 141 Potassium 3.4 L Chloride 112 H Carbon Dioxide 23.0 Anion Gap 6 BUN 3 L Creatinine 0.62 Estim Creat Clear Calc 113.23 Est GFR (MDRD) Af Amer 151 Est GFR (MDRD) Non-Af 125 BUN/Creatinine Ratio 4.9 L Glucose 86 Calcium 9.0 Total Bilirubin 0.70 Direct Bilirubin 0.18 AST 11 L ALT 22 Alkaline Phosphatase 137 H Troponin I High Sens 5 Total Protein 7.4 Albumin 4.2 Globulin 3.2 Lipase 91 Radiography Diagnostic Testing: Clinical Impression(s) from Imaging Studies Chest X-Ray 04/03/22 18:00 IMPRESSION: No radiographic evidence of acute cardiopulmonary disease. Electronically Signed: Jesús Luke MD at 18:17 EST , Rhythm Strip Rhythm Strip: Sinus Tach Rate: 115 Ectopy: None EKG Initial EKG: Attestation: I personally reviewed and interpreted this EKG as follows: Interpretation: No Acute Injury Pattern and Sinus Tachycardia (otherwise unremarkable) Discharge Plan Dx/Rx/DC Orders Clinical Impression: Tachycardia, Anxiety, Intractable vomiting, Medication withdrawal Disposition Disposition: Acute Care Hospital [facility]
[2022-04-03] MEDS: 0.9% Normal Saline 1,000 ML 999 ML IV (17:42)
[2022-04-03] MEDS: Ondansetron 4 MG/2 ML Vial IV (17:47)
[2022-04-03 17:55] LABS: Absolute Lymphocyte Count 1.57 X10^3/uL (0.83-4.51); Absolute Neutrophil Count 6.6 X10^3/uL (2.0-7.7); Basophil# 0.06 X10^3/uL; Basophil% 0.7 % (0-1); Eosinophil# 0.03 X10^3/uL; Eosinophils% 0.3 % (0-5); Hematocrit 37.7 % (37-47); Hemoglobin 12.7 g/dL (12.0-15.0); Lymphocyte # 1.57 X10^3/ul (0.83-4.51); Lymphocyte % 17.7 % (19-41); Mean Corp Hgb Conc 33.7 g/dL (32-36); Mean Corpuscular Hgb 29.4 pg (27.0-32.0); Mean Corpuscular Volume 87.3 fL (81-99); Mean Platelet Vol. 9.6 fl (6.2-12.0); Monocyte# 0.62 X10^3/uL; NRBC Flagged by Analyzer 0 % (0-5); Neutrophil # 6.55 X10^3/uL (2.7-7.7); Neutrophil % 73.8 % (47-70); Platelet Count 292 K/mm3 (150-450); RBC Distribution Width CV 12.3 % (11.6-14.6); RBC Distribution Width SD 39.7 fl (35.1-43.9); Red Blood Count 4.32 M/mm3 (4.2-5.4); White Blood Count 8.9 K/mm3 (4.4-11.0)
--- NOTE | 2022-04-03 17:55 | ED.RN ---
THIS RN TALKED TO PT. PT STATES SHE WAS ADMITTED TO [facility] A MONTH AGO FOR FAST HEART RATE. PT THEN STATES SHE WAS DISCHARGED HOME WITH PROPRANOLOL. PT VERBALIZED THAT PROPRANOLOL HELPED THE FAST HEART RATE FOR AWHILE BUT THEN SHE STARTED TO FEEL HER HEART RATE INCREASING AGAIN. THIS MADE PT HAVE N/V. PT HAD N/V FOR 7 DAYS THEN WENT TO [facility]. PT UNSURE OF WHAT ALL MEDICATIONS AND TIMES MEDICATIONS WERE GIVEN AT [facility] THIS AM. PT UNSURE OF DX AND DOES NOT HAVE DISCHARGE PAPERWORK. PT STATES SHE WAS GIVEN IV POTASSIUM, TWO DOSES OF ATIVAN, TORADOL, REGLAN, AND TWO DOSES IV BENADRYL. PT WAS DISCHARGED FROM [facility]. PT STATES SYMPTOMS CONTINUED AND I CALLED MY IVORY CARVER. IVORY CARVER TOLD PT TO COME TO ER PER PT.
--- NOTE | 2022-04-03 18:00 | RAD_ITS ---
INDICATION: Chest pain left EXAMINATION/TECHNIQUE: X-RAY - XR Chest 2 Views COMPARISON: None. FINDINGS: LINES/DEVICES: None. LUNGS: No consolidation, edema or effusion. No pneumothorax. MEDIASTINUM AND CARDIOVASCULAR STRUCTURES: Cardiac silhouette not enlarged. Central airways and mediastinal contour are unremarkable. BONES AND SOFT TISSUES: Dorsal spine demonstrates dextroscoliosis deformity Postsurgical changes in the right upper quadrant RAD/Chest PA and Lateral IMPRESSION: No radiographic evidence of acute cardiopulmonary disease. Electronically Signed: Jesús Luke MD at 18:17 EST ,
[2022-04-03 18:08] LABS: AST(SGOT) 11 U/L (15-37); Alanine Aminotransfer ALT/SGPT 22 U/L (13-56); Albumin, Serum 4.2 g/dL (3.2-5.0); Alkaline Phosphatase 137 U/L (45-117); Anion Gap 6 (5-15); BUN 3 mg/dL (7-18); BUN/Creat Ratio 4.9 RATIO (10-20); Bilirubin, Direct 0.18 mg/dL (0.00-0.30); Chloride 112 mmol/L (98-107); Creatinine, Serum 0.62 mg/dL (0.55-1.02); EST Glomerular Filtration Rate 125 mL/min (>60); Est Glom Filt Rate - Afr Amer 151 mL/min (>60); Estimated Creatinine Clearance 113.23 ml/min; Globulin 3.2 g/dL (2.2-4.2); Glucose 86 mg/dL (74-106); Lipase 91 U/L (73-393); Potassium 3.4 mmol/L (3.5-5.1); Protein, Total 7.4 g/dL (6.4-8.2); Sodium Level 141 mmol/L (136-145); Troponin-I HS 5 pg/mL (3.0-54.0)
[2022-04-03] MEDS: Propranolol 1 MG/ML Ampul 2 MG IV (19:10)
[2022-04-03] MEDS: ChlorproMAZINE 50 MG/2 ML Ampul 25 MG IV (19:46)
[2022-04-03] MEDS: Propranolol 10 MG Tablet 20 MG PO (21:50)
--- NOTE | 2022-04-03 22:45 | HP.PCM.HOS_ITS ---
HPI - General General Date of Admission: 04/03/22 Date of Service: 04/03/22 HPI Narrative NAPOLEON LOW, is a 26 F with a PMH as outlined who presents via the ED on 04/03/2022 with a complaint of nausea and vomiting which had been going on for ~ 1 week. Patient states about a month ago when she was having tachycardia so she went to [facility]. Hospitalist program was transferred to [facility]. She was placed on p.o. propranolol was asked to [facility] and she has been taking this. However over the last week she started having nausea and vomiting. She has been to [facility] about 5 times over the last week due to the above symptoms and is unable to keep down her metoprolol. She says she vomits about 10 times daily and is unable to keep down any medications. She denies any diarrhea states has been feeling lightheaded and dizzy and had had some near syncope but no overt syncope. He was given Reglan and [facility] but was unable to tolerate it as it made his shakiness worse. She says did not really take it. Her symptoms have persisted together with the shakiness of her extremities which was told by the doctor and recommended to come to [facility]. Review, vitals were blood pressure 125/84, pulse rate of 100, respiratory of 23 and temperature of 97.8 Fahrenheit and she was saturating 99% on room air. CBC was unremarkable and chemistry was significant for sodium of 141 with potassium of 3.4 and creatinine of 0.62. ALP was mildly elevated at 137. Chest x-ray showed no acute cardiopulmonary process. No CT of the abdomen and pelvis was started. No urinalysis was done. She has been admitted to be managed for intractable nausea and vomiting. [facility] Medical History Anxiety Depression Osteogenesis imperfecta Home Medications amitriptyline 10 mg tablet 20 mg PO QHS #60 tabs 04/22/21 [Rx Last Taken Unknown] ubrogepant 100 mg tablet (Ubrelvy) 100 mg PO ONCE PRN migraine headache #48 tabs 04/22/21 [Rx Last Taken Unknown] tramadol 50 mg tablet 50 mg PO DAILY 02/27/22 [History Last Taken Unknown] medroxyprogesterone 150 mg/mL intramuscular suspension (Depo-Provera) 150 mg IM [id number] #1 mL 03/19/22 [Rx Last Taken Unknown] ondansetron 4 mg disintegrating tablet 8 mg PO Q8H PRN PRN Nausea #20 tabs 04/03/22 [Rx Last Taken Unknown] Allergy/AdvReac Type Severity Reaction Status Date / Time sulfamethoxazole Allergy Severe Rash Verified 04/03/22 16:51 [From Bactrim] trimethoprim [From Bactrim] Allergy Severe Rash Verified 04/03/22 16:51 Family History Mother TIA (transient ischemic attack) Surgical History H/O sinus surgery History of dilatation and curettage Hx of cholecystectomy S/P Social History Smoking Status: Never smoker alcohol intake: never substance use type: does not use caffeine: Yes what type of physical activity do you participate in: walking seatbelt use: always do you feel safe at home: Yes additional social history: Pual Patient sahm ROS Review of Systems ROS Unobtainable: Denies due to encephalopathy Constitutional Constitutional: Reports anorexia, fatigue, malaise and weakness; Denies change in weight, chills or fever(s) Eyes Eyes: Denies change in vision ENT HEENT: Denies dysphagia, headache(s) or sinus pressure Cardiovascular Cardiovascular: Reports lightheadedness, palpitations and rapid heart rate; Denies chest pain, dyspnea on exertion, edema, orthopnea, paroxysmal nocturnal dyspnea or syncope Respiratory/Chest Respiratory/Chest: Denies cough, dyspnea, productive cough, shortness of breath at rest, shortness of breath with exertion or wheezing Gastrointestinal Gastrointestinal: Reports nausea and vomiting; Denies abdominal pain, coffee ground emesis, constipation, diarrhea, dyspepsia, hematemesis, hematochezia, loose stools or melena Genitourinary Genitourinary: Reports urinary frequency; Denies burning urination, dysuria, urinary hesitancy or urinary urgency Musculoskeletal Musculoskeletal: Denies arthralgias or joint pain Neurologic Neurologic: Reports other Details: shakiness of upper extremities ; Denies confusion, dizziness, focal weakness, headache(s) or seizure-like activity Psychiatric Psychiatric: Denies anxiety or depression Hematologic/Lymphatic Hematologic/Lymphatic: Denies anemia Vital Signs Vital Signs Vital Signs: 04/03/22 16:38 04/03/22 16:58 04/03/22 19:10 Temperature 98.5 F 98.8 F Temperature Source Temporal Oral Pulse Rate 122 H 120 H 106 H Respiratory Rate 16 18 13 Blood Pressure 113/44 L 124/88 H 118/83 H Blood Pressure Mean 67 100 94 Pulse Ox 97 97 99 Oxygen Delivery Method Room Air Room Air Room Air 04/03/22 19:13 04/03/22 21:01 04/03/22 21:56 Temperature Temperature Source Pulse Rate 119 H 117 H 127 H Respiratory Rate 15 18 18 Blood Pressure 118/83 H 126/96 H 123/78 H Blood Pressure Mean 94 106 93 Pulse Ox 95 98 96 Oxygen Delivery Method Room Air Room Air Room Air Weight Weight: 114 lb Body Mass Index (BMI) 33.3 Physical Exam Const alert and oriented x3 Constitutional Narrative: frail, looks lethargic HEENT normocephalic, head/scalp atraumatic and hearing grossly normal bilaterally HEENT Narrative: dry oral mucosal membranes Eyes PERRL, EOMs intact bilaterally and conjunctivae normal Neck no lymphadenopathy, supple and no JVD Resp normal respiratory effort, no retractions, no use of accessory muscles and clear to auscultation bilaterally Cardio regular rate, regular rhythm, S1 normal heart sound, S2 normal heart sound, no murmurs and no rub Cardio Narrative: sinus tachycardia had improved at time of my review GI normal to inspection, nondistended, normoactive bowel sounds, soft to palpation, non-tender and non-distended Extremity normal to inspection, full ROM and no clubbing, cyanosis or edema Neuro oriented x3, CN's II-XII intact bilaterally, moves all extremities and no focal motor deficits Neuro Narrative: has some mild tremors of Upper extremities Sensorium / Orientation: awake and alert Speech: speech normal Motor Exam: strength 5/5 throughout Psych Psych Narrative: flat affect, lethargic Results Lab / Micro Data Result Diagrams: 04/03/22 17:37 04/03/22 17:37 Labs: Laboratory Results - last 24 hr 04/03/22 17:37: WBC 8.9, RBC 4.32, Hgb 12.7, Hct 37.7, MCV 87.3, MCH 29.4, MCHC 33.7, RDW Std Deviation 39.7, RDW Coeff of Sharmin 12.3, Plt Count 292, MPV 9.6, Immature Gran % (Auto) 0.500, Neut % (Auto) 73.8 H, Lymph % (Auto) 17.7 L, [place] % (Auto) 7.0, Eos % (Auto) 0.3, Baso % (Auto) 0.7, Absolute Neuts (auto) 6.6, Absolute Lymphs (auto) 1.57, Nucleated RBC % 0 04/03/22 17:37: Sodium 141, Potassium 3.4 L, Chloride 112 H, Carbon Dioxide 23.0, Anion Gap 6, BUN 3 L, Creatinine 0.62, Estim Creat Clear Calc 113.23, Est GFR (MDRD) Af Amer 151, Est GFR (MDRD) Non-Af 125, BUN/Creatinine Ratio 4.9 L, Glucose 86, Calcium 9.0, Total Bilirubin 0.70, Direct Bilirubin 0.18, AST 11 L, ALT 22, Alkaline Phosphatase 137 H, Troponin I High Sens 5, Total Protein 7.4, Albumin 4.2, Globulin 3.2, Lipase 91 Rhythm Strip Rhythm Strip: Sinus Tach Rate: 115 Ectopy: None Radiology Impression Chest X-Ray 04/03/22 18:00 IMPRESSION: No radiographic evidence of acute cardiopulmonary disease. Electronically Signed: Jesús Luke MD at 18:17 EST Reading Location ID and State: [address] [place] [address] , Service support , Assessment & Plan Assessment/Plan (1) Intractable vomiting: (2) Tachycardia: PLAN: Plan #intractable nausea and vomiting * etiology is not clear * has been going on for ~ 1 week; unable to keep down any of her meds * vomits ~ 10x daily. Denies any marijuana use. Reglan didnt help much * has been unable to keep down her meds * admit to med surg under observation * hydrate gently with IVF * IV zofran prn * get urinalysis and CT abdomen/pelvis * consult GI if nausea and vomiting persists * IV PPI * #Sinus tachycardia * was put on propranolol ~ 1 month ago; has not been able to keep down the propranolol for hte last week due to the intractable nausea and vomiting * IV lopressor prn * resume propranolol once nausea and vomiting improve * #History of migraines: * on amitryptiline, which she has not been alble to take for hte last week due to intractable nausea and vomiting. Not having any headaches now. Will monitor. * also on ubogrepant * DVT prophylaxis: low risk, encourage to ambulate Charges/Coding Visit Charges OBSV E&M: 05770 Observ/hosp same date L3
--- NOTE | 2022-04-03 23:06 | CT_ITS ---
INDICATION: intractable nausea and vomiting EXAMINATION: CT ABDOMEN AND PELVIS WITHOUT CONTRAST - CT Abdomen And Pelvis W/O Contrast Injection TECHNIQUE: Helically acquired images were obtained of the abdomen and pelvis without oral or IV contrast. A radiation dose optimization technique was used for this scan. IV Contrast dosage and agent: None. Oral contrast: None. COMPARISON: 06/06/19. FINDINGS: LOWER CHEST: Lung bases are clear. No cardiomegaly or pericardial effusion. LIVER: Homogeneous parenchyma. Chronic borderline hepatomegaly. No focal mass. GALLBLADDER AND BILIARY TREE: Cholecystectomy.. No intra- or extrahepatic biliary ductal dilation. PANCREAS: No focal cystic or solid mass. SPLEEN: Normal size without focal cystic or solid mass. ADRENAL GLANDS: No nodules. KIDNEYS AND URETERS: Normal renal size and position. No hydronephrosis. PERITONEUM: No ascites or free air. No other fluid collection. BOWEL: No evidence of acute appendicitis. No stomach or bowel distension. No focal inflammatory change. LYMPH NODES: No enlarged mesenteric or retroperitoneal lymph nodes. VESSELS: Aorta is non-dilated. URINARY BLADDER: Unremarkable. REPRODUCTIVE ORGANS: Unremarkable uterus and adnexa. ABDOMINAL WALL: Fat-containing umbilical hernia without inflammation. BONES: No lytic or blastic abnormality. CT/Abdomen/Pelvis without Cont IMPRESSION: No bowel obstruction or specific finding for patient''s symptoms. Chronic borderline hepatomegaly. Electronically Signed: Joseph Lara MD at 0:10 EST ,
[2022-04-04 00:11] VITALS: BMI 22.8
[2022-04-04 00:15] VITALS: BP 119/68; PULSE 99; RESP 17; TEMP 36.6; O2SAT 96
[2022-04-04 00:18] LABS: Mucous, Urine 0 SEEN /hpf (<or=2+); Red Blood Cells-Urine 0 SEEN /hpf (0-5)
[2022-04-04 00:20] LABS: Color, Urine Yellow (Yellow); Glucose, Dipstick Normal (Normal); Ketone-Dipstick 50 mg/dl (Negative); Leukocyte Esterase-Dipstick Negative /ul (Negative); Nitrite-Dipstick Negative (Negative); Occult Blood-Urine Negative /ul (Negative); Protein-Dipstick Negative (Negative); Specific Gravity, Urine 1.015 (1.002-1.030); Urine Bilirubin Dipstick Negative (Negative); Urine Clarity Clear (Clear); Urine Urobilinogen Normal (Normal)
[2022-04-04 00:35] LABS: Amphetamine Urine VISTA NEGATIVE (<1000 ng/mL); Barbiturate Urine VISTA NEGATIVE (< 200 ng/mL); Benzodiazepine Urine VISTA NEGATIVE (< 200 ng/mL); Cocaine Urine VISTA NEGATIVE (< 300 ng/mL); Ecstacy Urine VISTA NEGATIVE (< 500 ng/mL); Methadone Urine VISTA NEGATIVE (< 300 ng/mL); PCP Urine VISTA NEGATIVE (< 25 ng/mL); THC Urine VISTA NEGATIVE (< 50 ng/mL); Vista UDS pH Range 4
[2022-04-04] MEDS: proCHLORPERazine 10 MG/2 ML Vial 5 MG IV ×2 (00:35→05:35)
[2022-04-04] MEDS: 0.9% Saline Lock 10 ML Syringe IV ×2 (00:35→05:35)
[2022-04-04 00:36] LABS: Bacteria 2+ /hpf (None Seen); Squamous Epithelial Cells - UA 0-5 SEEN /hpf (5-10); White Blood Cells 0-5 SEEN /hpf (0-5)
[2022-04-04] MEDS: 0.9% Normal Saline 1,000 ML 150 ML IV ×2 (00:36→06:13)
--- NOTE | 2022-04-04 00:38 | EKG12_ITS ---
Test Reason : CHEST PAIN Blood Pressure : / mmHG Vent. Rate : 072 BPM Atrial Rate : 072 BPM P-R Int : 138 ms QRS Dur : 082 ms QT Int : 360 ms P-R-T Axes : 057 052 049 degrees QTc Int : 394 ms Sinus rhythm with marked sinus arrhythmia Otherwise normal ECG Confirmed by FIOR NARVAEZ, SHEMAR ([id number]), fan mail editor KALA LANDIN ([id number]) on 04/09/2022 10:16:01 AM Referred By: WENDI Confirmed By:SHEMAR CHILDRESS MD
[2022-04-04 00:54] VITALS: PULSE 105
[2022-04-04] MEDS: Acetaminophen 325 MG Tablet 650 MG PO ×2 (01:47→10:06)
[2022-04-04] MEDS: Ceftriaxone 1 GM/50 ML BAG IV (01:47)
[2022-04-04] MEDS: Potassium Chloride Oral Tablet 20 MEQ 40 MEQ PO (01:48)
[2022-04-04 03:00] VITALS: PULSE 77
[2022-04-04 05:32] VITALS: BP 108/71; PULSE 107; RESP 18; TEMP 37.1; O2SAT 96
[2022-04-04 05:57] LABS: Absolute Lymphocyte Count 2.18 X10^3/uL (0.83-4.51); Basophil# 0.06 X10^3/uL; Basophil% 0.7 % (0-1); Eosinophil# 0.24 X10^3/uL; Hematocrit 35.3 % (37-47); Hemoglobin 11.8 g/dL (12.0-15.0); Lymphocyte # 2.18 X10^3/ul (0.83-4.51); Lymphocyte % 26.9 % (19-41); Mean Corp Hgb Conc 33.4 g/dL (32-36); Mean Corpuscular Hgb 29.7 pg (27.0-32.0); Mean Corpuscular Volume 88.9 fL (81-99); Mean Platelet Vol. 9.6 fl (6.2-12.0); Monocyte# 0.59 X10^3/uL; Monocyte% 7.3 % (0-10); NRBC Flagged by Analyzer 0 % (0-5); Neutrophil # 5.01 X10^3/uL (2.7-7.7); Neutrophil % 61.7 % (47-70); Platelet Count 279 K/mm3 (150-450); RBC Distribution Width CV 12.3 % (11.6-14.6); RBC Distribution Width SD 40.3 fl (35.1-43.9); Red Blood Count 3.97 M/mm3 (4.2-5.4); White Blood Count 8.1 K/mm3 (4.4-11.0)
[2022-04-04 06:21] LABS: Anion Gap 8 (5-15); BUN 5 mg/dL (7-18); BUN/Creat Ratio 9.3 RATIO (10-20); Calcium,Total 8.3 mg/dL (8.5-10.1); Chloride 111 mmol/L (98-107); Creatinine, Serum 0.54 mg/dL (0.55-1.02); EST Glomerular Filtration Rate 146 mL/min (>60); Est Glom Filt Rate - Afr Amer 176 mL/min (>60); Estimated Creatinine Clearance 129.23 ml/min; Glucose 80 mg/dL (74-106); Potassium 3.5 mmol/L (3.5-5.1); Sodium Level 140 mmol/L (136-145)
--- NOTE | 2022-04-04 07:24 | PN.HOSP_ITS ---
Subjective Subjective Follow-up intractable nausea vomiting Patient is a 26-year-old lady admitted with intractable nausea vomiting which has been ongoing for months admitted to regular nursing floor for symptom management Objective Data Objective Data Vital Signs: Vital Signs Temp Pulse Resp BP Pulse Ox O2 Del Method 98.7 F 107 H 18 108/71 96 Room Air 04/04/22 05:32 04/04/22 05:32 04/04/22 05:32 04/04/22 05:32 04/04/22 05:32 04/04/22 05:32 Oxygen Delivery Method Room Air Weight: 51.4 kg Body Mass Index (BMI) 22.8 Intake & Output: Intake and Output for Last 24 Hours 04/02/22 04/03/22 04/04/22 23:59 23:59 23:59 Intake Total 1500 / 1500 892.5 / 892.5 Balance 1500 / 1500 892.5 / 892.5 Lab / Micro Data Result Diagrams: 04/04/22 05:30 04/04/22 05:30 Labs: Laboratory Results - last 24 hr 04/03/22 17:37: WBC 8.9, RBC 4.32, Hgb 12.7, Hct 37.7, MCV 87.3, MCH 29.4, MCHC 33.7, RDW Std Deviation 39.7, RDW Coeff of Sharmin 12.3, Plt Count 292, MPV 9.6, Immature Gran % (Auto) 0.500, Neut % (Auto) 73.8 H, Lymph % (Auto) 17.7 L, [place] % (Auto) 7.0, Eos % (Auto) 0.3, Baso % (Auto) 0.7, Absolute Neuts (auto) 6.6, Absolute Lymphs (auto) 1.57, Nucleated RBC % 0 04/03/22 17:37: Sodium 141, Potassium 3.4 L, Chloride 112 H, Carbon Dioxide 23.0, Anion Gap 6, BUN 3 L, Creatinine 0.62, Estim Creat Clear Calc 113.23, Est GFR (MDRD) Af Amer 151, Est GFR (MDRD) Non-Af 125, BUN/Creatinine Ratio 4.9 L, Glucose 86, Calcium 9.0, Total Bilirubin 0.70, Direct Bilirubin 0.18, AST 11 L, ALT 22, Alkaline Phosphatase 137 H, Troponin I High Sens 5, Total Protein 7.4, Albumin 4.2, Globulin 3.2, Lipase 91 04/04/22 00:10: Urine Opiates Screen NEGATIVE, Urine Methadone Screen NEGATIVE, Ur Barbiturates Screen NEGATIVE, Ur Phencyclidine Scrn NEGATIVE, Ur Amphetamines Screen NEGATIVE, MDMA (Ecstasy) Screen NEGATIVE, U Benzodiazepines Scrn NEGATIVE, Urine Cocaine Screen NEGATIVE, U Cannabinoids Screen NEGATIVE, Ur Drug Screen Comment 04/04/22 00:10: Urine Color Yellow, Urine Clarity Clear, Urine pH 6.0, Ur Specific [place] 1.015, Urine Protein Negative, Urine Glucose (UA) Normal, Urine Ketones 50 H, Urine Occult Blood Negative, Urine Nitrite Negative, Urine Bilirubin Negative, Urine Urobilinogen Normal, Ur Leukocyte Esterase Negative, Urine RBC 0 SEEN, Urine WBC 0-5 SEEN, Ur Squamous Epith Cells 0-5 SEEN, Urine Bacteria 2+, Urine Mucus 0 SEEN 04/04/22 05:30: WBC 8.1, RBC 3.97 L, Hgb 11.8 L, Hct 35.3 L, MCV 88.9, MCH 29.7, MCHC 33.4, RDW Std Deviation 40.3, RDW Coeff of Sharmin 12.3, Plt Count 279, MPV 9.6, Immature Gran % (Auto) 0.400, Neut % (Auto) 61.7, Lymph % (Auto) 26.9, [place] % (Auto) 7.3, Eos % (Auto) 3.0, Baso % (Auto) 0.7, Absolute Neuts (auto) 5.0, Absolute Lymphs (auto) 2.18, Nucleated RBC % 0 04/04/22 05:30: Sodium 140, Potassium 3.5, Chloride 111 H, Carbon Dioxide 21.0, Anion Gap 8, BUN 5 L, Creatinine 0.54 L, Estim Creat Clear Calc 129.23, Est GFR (MDRD) Af Amer 176, Est GFR (MDRD) Non-Af 146, BUN/Creatinine Ratio 9.3 L, Glucose 80, Calcium 8.3 L Radiography Diagnostic Testing: Radiology Impression Chest X-Ray 04/03/22 18:00 IMPRESSION: No radiographic evidence of acute cardiopulmonary disease. Electronically Signed: Jesús Luke MD at 18:17 EST , Abdomen/Pelvis CT 04/03/22 23:06 IMPRESSION: No bowel obstruction or specific finding for patient''s symptoms. Chronic borderline hepatomegaly. Electronically Signed: Joseph Lara MD at 0:10 EST , Rhythm Strip Rhythm Strip: Sinus Tach Rate: 115 Ectopy: None Physical Exam Narrative GENERAL: cooperative HEENT: Atraumatic; normocephalic EYES; Anicteric, Normal Conjunctiva NECK; supple, normal thyroid, RESPIRATORY: Diminished to auscultation CARDIOVASCULAR: Regular S1 S2, GI: soft, normoactive bowel sounds, : No Renal angle tenderness; EXTREMITIES: No edema, no clubbing, MUSCULOSKELETAL: no muscle wasting NEURO: Awake; no lateralizing signs. SKIN: No Rash PSYCH; Flat affect Assessment & Plan Assessment/Plan (1) Intractable vomiting: (2) Tachycardia: PLAN: Plan Patient is a 26-year-old lady admitted with intractable nausea vomiting which has been ongoing for months admitted to regular nursing floor for symptom management 1. Intractable nausea vomiting ? Patient started on PPI for suspected gastritis also given Zofran for symptom management 2. Sinus tachycardia ? Patient has had work-up as an outside hospital ultimately and was placed on propranolol did continue 3. Chronic migraine headaches ? Patient is on amitriptyline and ubogrepant, continued 4. Acute DVT prophylaxis ? Low risk did encourage early ambulation Time spent in the patient's overall evaluation,decision-making process, review of diagnostic data, adjustment of management, discussion with other providers, nursing nursing and ancillary staff involved in patient's care documentation, 36 Minutes Charges/Coding Visit Charges Inpatient E&M: [id number] [facility] Hosp L2
--- NOTE | 2022-04-04 08:22 | DS.PCM_ITS ---
Providers Date of Admission: 04/03/22 Date of Discharge: 04/04/22 Primary Care Physician: Dr. Beryl Islas, Reason For Visit: INTRACTABLE NAUSEA AND VOMITING Diagnosis Discharge Diagnosis (1) Intractable vomiting: Status: Acute Code(s): R11.10 - Vomiting, unspecified (2) Tachycardia: Status: Acute Code(s): R00.0 - Tachycardia, unspecified Plan Patient is a 26-year-old lady admitted with intractable nausea vomiting which has been ongoing for months admitted to regular nursing floor for symptom management 1. Intractable nausea vomiting ? Patient started on PPI for suspected gastritis also given Zofran for symptom management 2. Sinus tachycardia ? Patient has had work-up as an outside hospital ultimately and was placed on propranolol did continue 3. Chronic migraine headaches ? Patient is on amitriptyline and ubogrepant, continued 4. Acute DVT prophylaxis ? Low risk did encourage early ambulation Medications at Discharge Home Medications ubrogepant 100 mg tablet (Ubrelvy) 100 mg PO ONCE PRN migraine headache #48 tabs 04/22/21 medroxyprogesterone 150 mg/mL intramuscular suspension (Depo-Provera) 150 mg IM [id number] #1 mL 03/19/22 amitriptyline 25 mg tablet 25 mg QHS 04/03/22 levofloxacin 500 mg tablet 500 mg DAILY 04/03/22 lorazepam 0.5 mg tablet 0.5 mg Q8 PRN Anxiety 04/03/22 ondansetron 4 mg disintegrating tablet 8 mg PO Q8H PRN PRN Nausea #20 tabs 04/03/22 pantoprazole 40 mg tablet,delayed release 40 mg PO DAILY 04/03/22 propranolol 60 mg capsule,24 hr,extended release 60 mg PO DAILY 04/03/22 Hospital Course Summary of Care Provided Minutes Spent on Discharge: 36 Physical Exam Narrative GENERAL: cooperative HEENT: Atraumatic; normocephalic EYES; Anicteric, Normal Conjunctiva NECK; supple, normal thyroid, RESPIRATORY: Diminished to auscultation CARDIOVASCULAR: Regular S1 S2, GI: soft, normoactive bowel sounds, : No Renal angle tenderness; EXTREMITIES: No edema, no clubbing, MUSCULOSKELETAL: no muscle wasting NEURO: Awake; no lateralizing signs. SKIN: No Rash PSYCH; Flat affect Weight / BMI Weight Weight: 51.4 kg Body Mass Index (BMI) 22.8 ABG / Lab / Microbiology Data Result Diagrams: 04/04/22 05:30 04/04/22 05:30 Laboratory: Laboratory Results - last 24 hr 04/03/22 17:37: WBC 8.9, RBC 4.32, Hgb 12.7, Hct 37.7, MCV 87.3, MCH 29.4, MCHC 33.7, RDW Std Deviation 39.7, RDW Coeff of Sharmin 12.3, Plt Count 292, MPV 9.6, Immature Gran % (Auto) 0.500, Neut % (Auto) 73.8 H, Lymph % (Auto) 17.7 L, [place] % (Auto) 7.0, Eos % (Auto) 0.3, Baso % (Auto) 0.7, Absolute Neuts (auto) 6.6, Absolute Lymphs (auto) 1.57, Nucleated RBC % 0 04/03/22 17:37: Sodium 141, Potassium 3.4 L, Chloride 112 H, Carbon Dioxide 23.0, Anion Gap 6, BUN 3 L, Creatinine 0.62, Estim Creat Clear Calc 113.23, Est GFR (MDRD) Af Amer 151, Est GFR (MDRD) Non-Af 125, BUN/Creatinine Ratio 4.9 L, Glucose 86, Calcium 9.0, Total Bilirubin 0.70, Direct Bilirubin 0.18, AST 11 L, ALT 22, Alkaline Phosphatase 137 H, Troponin I High Sens 5, Total Protein 7.4, Albumin 4.2, Globulin 3.2, Lipase 91 04/04/22 00:10: Urine Opiates Screen NEGATIVE, Urine Methadone Screen NEGATIVE, Ur Barbiturates Screen NEGATIVE, Ur Phencyclidine Scrn NEGATIVE, Ur Amphetamines Screen NEGATIVE, MDMA (Ecstasy) Screen NEGATIVE, U Benzodiazepines Scrn NEGATIVE, Urine Cocaine Screen NEGATIVE, U Cannabinoids Screen NEGATIVE, Ur Drug Screen Comment 04/04/22 00:10: Urine Color Yellow, Urine Clarity Clear, Urine pH 6.0, Ur Specific [place] 1.015, Urine Protein Negative, Urine Glucose (UA) Normal, Urine Ketones 50 H, Urine Occult Blood Negative, Urine Nitrite Negative, Urine Bilirubin Negative, Urine Urobilinogen Normal, Ur Leukocyte Esterase Negative, Urine RBC 0 SEEN, Urine WBC 0-5 SEEN, Ur Squamous Epith Cells 0-5 SEEN, Urine Bacteria 2+, Urine Mucus 0 SEEN 04/04/22 05:30: WBC 8.1, RBC 3.97 L, Hgb 11.8 L, Hct 35.3 L, MCV 88.9, MCH 29.7, MCHC 33.4, RDW Std Deviation 40.3, RDW Coeff of Sharmin 12.3, Plt Count 279, MPV 9.6, Immature Gran % (Auto) 0.400, Neut % (Auto) 61.7, Lymph % (Auto) 26.9, [place] % (Auto) 7.3, Eos % (Auto) 3.0, Baso % (Auto) 0.7, Absolute Neuts (auto) 5.0, Absolute Lymphs (auto) 2.18, Nucleated RBC % 0 04/04/22 05:30: Sodium 140, Potassium 3.5, Chloride 111 H, Carbon Dioxide 21.0, Anion Gap 8, BUN 5 L, Creatinine 0.54 L, Estim Creat Clear Calc 129.23, Est GFR (MDRD) Af Amer 176, Est GFR (MDRD) Non-Af 146, BUN/Creatinine Ratio 9.3 L, Glucose 80, Calcium 8.3 L Radiography Diagnostic Testing: Radiology Impression Chest X-Ray 04/03/22 18:00 IMPRESSION: No radiographic evidence of acute cardiopulmonary disease. Electronically Signed: Jesús Luke MD at 18:17 EST , Abdomen/Pelvis CT 04/03/22 23:06 IMPRESSION: No bowel obstruction or specific finding for patient''s symptoms. Chronic borderline hepatomegaly. Electronically Signed: Joseph Lara MD at 0:10 EST , D/C Instructions Discharge Diet: No restrictions Discharge Activity: Return to Normal Activity Call your doctor if you observe: Fever of 101 or Higher, Shortness of breath, Fainting spells and Chest pain Meaningful Use Info Meaningful Use Diagnoses (Choose all that apply): None applicable Discharge Plan Admission Admit Date/Time: 04/03/22 22:25 Attending Provider: Deuce Bolanos Primary Care Provider: Beryl Islas Consulting Providers: Connie Palmer Discharge Orders/Prescriptions Prescriptions: New ondansetron [ondansetron] 4 mg tablet,disintegrating 8 mg PO Q8H PRN PRN (Reason: Nausea) Qty: 20 0RF No Action Ubrelvy 100 mg tablet 100 mg PO ONCE PRN (Reason: migraine headache) Qty: 48 0RF Rx Instructions: may repeat dose once after 2 hours if needed; max 2 tabs per day propranolol 60 mg capsule,extended release 24 hr 60 mg PO DAILY Label Comments: TAKE 1 CAPSULE BY MOUTH ONCE DAILY FOR 30 DAYS amitriptyline 25 mg tablet 25 mg QHS Label Comments: TAKE 1 TABLET BY MOUTH AT BEDTIME lorazepam 0.5 mg tablet 0.5 mg Q8 PRN (Reason: Anxiety) Label Comments: TAKE 1 TABLET BY MOUTH EVERY 8 HOURS NEEDED FOR ANXIETY pantoprazole 40 mg tablet,delayed release (DR/EC) 40 mg PO DAILY Label Comments: TAKE 1 TABLET BY MOUTH ONCE DAILY BEFORE BREAKFAST levofloxacin 500 mg tablet 500 mg DAILY Label Comments: TAKE 1 TABLET BY MOUTH ONCE DAILY Rx Instructions: 10 days, ends on 04/05/22 medroxyprogesterone [Depo-Provera] 150 mg/mL suspension 150 mg IM [id number] Qty: 1 2RF Referrals / Follow Up: Beryl Islas DO [Primary Care Provider] - None Disposition Disposition (needs filled in before D/C Order can be placed): Home, Self Care Charges/Coding Visit Charges Inpatient E&M: 42968 Disch Hosp >30min
[2022-04-04 08:28] VITALS: BP 133/77; PULSE 86; RESP 16; TEMP 36.3; O2SAT 98
[2022-04-04 08:30] LABS: Hemoglobin A1c 4.5 % (3.8-5.6)
[2022-04-04] MEDS: Ondansetron 4 MG/2 ML Vial IV (08:31)
[2022-04-04] MEDS: oxyCODONE 5 MG Tablet PO (10:06)
== END 2022-04-04 11:28 | disposition home or self-care (01) ==
LOC: ED 21:49 → MS2 22:36
PROVIDERS: Admitting Provider Student in an Organized Health Care Education/Training Program; Emergency Provider Emergency Medicine; PCP Family Medicine; Visit Provider Internal Medicine
DX: R11.2 Nausea with vomiting, unspecified (principal); F41.9 Anxiety disorder, unspecified; F32.A Depression, unspecified; Z79.899 Other long term (current) drug therapy; Q78.0 Osteogenesis imperfecta; G43.909 Migraine, unspecified, not intractable, without status migrainosus; R00.0 Tachycardia, unspecified
CPT/HCPCS: 36415; 71046; 74176; 80048; 80076; 80307; 81001; 83036; 83690; 84484; 85025; 87086; 93005; 96365; 96375; 96376; 99221; 99285; J7030; J7040; A4216; G0378; J2405

== ENCOUNTER → 2023-01-13 | Outpatient (CLI) | payer OTHER, MEDICAID, SELFPAY ==
[2023-01-16 12:08] LABS: Chlamydia By Nucleic Acid AMP Negative (Negative); Gonococcus By Nucleic Acid AMP Negative (Negative)
== END | disposition home or self-care (01) ==
LOC: LABSPEC 15:39
PROVIDERS: PCP Family Medicine; Visit Provider Nurse Practitioner Women's Health
DX: N89.8 Other specified noninflammatory disorders of vagina (principal)
CPT/HCPCS: 87070; 87186; 87205; 87491; 87591

== ENCOUNTER → 2023-02-17 | Outpatient (CLI) | payer MEDICAID, SELFPAY | END | disposition home or self-care (01) | PROVIDERS: PCP Family Medicine; Visit Provider Nurse Practitioner Women's Health | DX: N94.9 Unspecified condition associated with female genital organs and menstrual cycle (principal) | CPT/HCPCS: 87070; 87205 ==

== ENCOUNTER 2023-02-23 11:06 | Outpatient (CLI) | payer OTHER, MEDICAID, SELFPAY ==
[2023-02-23] MEDS: Dextrose 5%-Lactated Ringers 1,000 ML 999 ML IV (11:29)
[2023-02-23 11:30] VITALS: BP 112/56; PULSE 99; RESP 16; TEMP 36.3; O2SAT 99; BMI 26.4
[2023-02-23] MEDS: Ondansetron 4 MG/2 ML Vial IV (11:36)
[2023-02-23] MEDS: 0.9% NaCl Peripheral Flush Adult/Peds IV (11:36)
[2023-02-23 12:44] VITALS: BP 108/54; PULSE 92; RESP 16; TEMP 36.4; O2SAT 100
== END 2023-02-23 11:07 | disposition home or self-care (01) ==
LOC: MEDOUTP 11:08
PROVIDERS: PCP Family Medicine; Referring Provider Obstetrics & Gynecology; Visit Provider Obstetrics & Gynecology
DX: E86.0 Dehydration (principal)
CPT/HCPCS: 96374; 96361; A4216; J2405

== ENCOUNTER → 2023-03-09 | Outpatient (CLI) | payer MEDICAID, SELFPAY ==
[2023-03-11 21:07] LABS: Chlamydia By Nucleic Acid AMP Negative (Negative); Gonococcus By Nucleic Acid AMP Negative (Negative)
== END | disposition home or self-care (01) ==
LOC: LABSPEC 16:29
PROVIDERS: PCP Nurse Practitioner Family; Referring Provider Obstetrics & Gynecology; Visit Provider Obstetrics & Gynecology
DX: Z34.90 Encounter for supervision of normal pregnancy, unspecified, unspecified trimester (principal); N89.8 Other specified noninflammatory disorders of vagina
CPT/HCPCS: 87070; 87086; 87088; 87205; 87491; 87591

== ENCOUNTER → 2023-03-19 | Outpatient (CLI) | payer MEDICAID, SELFPAY ==
--- OUTSIDE RECORDS SUMMARY | 2023-03-19 12:47 | XMS RPT_ITS | CCD ---
Author Name Unknown Address [address] [place] [address] Organization [facility] Care Team Providers Care [employer] Electrician Name Role Phone АННА GOLDSTEIN Unavailable Unavailable LETITIA FORD Unavailable Unavailable АННА GOLDSTEIN Unavailable Unavailable GIOVANI JOLLEY Unavailable Unavailable BERYL MCMILLAN DO Primary Care Physician Beryl Mcmillan DO Primary Care Provider BERYL MCMILLAN Primary Care Unavailable NELLY DOE Referring Unavailable BERYL MCMILLAN Primary Care Unavailable Lenka Marks DO Primary Care Provider [phone] JESSA NOEL Attending Unavailable LENKA MARKS Primary Care Unavailable FRANK ELLIS Attending Unavailable FRANK ELLIS Admitting Unavailable BERYL MCMILLAN DO Consulting Unavailable FRANK ELLIS Primary Care Unavailable PROVIDER, UNKNOWN Consulting Unavailable PROVIDER, UNKNOWN Consulting Unavailable UNGERER, NELLY HAIRSPRING FABRICATION SUPERVISOR Attending Unavailable UNGERER, NELLY HAIRSPRING FABRICATION SUPERVISOR Admitting Unavailable UNGERER, NELLY HAIRSPRING FABRICATION SUPERVISOR Primary Care Unavailable UNGERER, NELLY HAIRSPRING FABRICATION SUPERVISOR Consulting Unavailable PROVIDER, UNKNOWN Consulting Unavailable UNGERER, NELLY HAIRSPRING FABRICATION SUPERVISOR Attending Unavailable UNGERER, NELLY HAIRSPRING FABRICATION SUPERVISOR Admitting Unavailable UNGERER, NELLY HAIRSPRING FABRICATION SUPERVISOR Primary Care Unavailable UNGERER, NELLY HAIRSPRING FABRICATION SUPERVISOR Consulting Unavailable KARLOS CORREIA MD Referring Unavailab le PROVIDER, UNKNOWN Consulting Unavailable UNGERER, NELLY HAIRSPRING FABRICATION SUPERVISOR Attending Unavailable UNGERER, NELLY HAIRSPRING FABRICATION SUPERVISOR Admitting Unavailable UNGERER, NELLY HAIRSPRING FABRICATION SUPERVISOR Primary Care Unavailable BERYL MCMILLAN DO Consulting Unavailable PROVIDER, UNKNOWN Consulting Unavailable PROVIDER, UNKNOWN Consulting Unavailable UNGERER, NELLY HAIRSPRING FABRICATION SUPERVISOR Attending Unavailable UNGERER, NELLY HAIRSPRING FABRICATION SUPERVISOR Admitting Unavailable UNGERER, NELLY HAIRSPRING FABRICATION SUPERVISOR Primary Care Unavailable BERYL MCMILLAN DO Consulting Unavailable PROVIDER, UNKNOWN Consulting Unavailable PROVIDER, UNKNOWN Consulting Unavailable UNGERER, NELLY HAIRSPRING FABRICATION SUPERVISOR Attending Unavailable UNGERER, NELLY HAIRSPRING FABRICATION SUPERVISOR Admitting Unavailable UNGERER, NELLY HAIRSPRING FABRICATION SUPERVISOR Primary Care Unavailable BERYL MCMILLAN DO Consulting Unavailable PROVIDER, UNKNOWN Consulting Unavailable PROVIDER, UNKNOWN Consulting Unavailable ACOSTA, DULCE Admitting Unavailable ACOSTA, DULCE Primary Care Unavailable ACOSTA, DULCE Attending Unavailable BERYL MCMILLAN DO Consulting Unavailable BERYL MCMILLAN DO Referring Unavailable AYLIN CARDOSO MD Admitting Unavailable WALKER, AYLIN NARVAEZ Attending Unavailable AYLIN CARDOSO MD Primary Care Unavailable PROVIDER, UNKNOWN Consulting Unavailable PROVIDER, UNKNOWN Consulting Unavailable JO PETERSEN DO Attending Unavailable JO PETERSEN DO Admitting Unavailable BERYL MCMILLAN DO Referring Unavailable BERYL MCMILLAN DO Consulting Unavailable JO PETERSEN DO Primary Care Unavailable PROVIDER, UNKNOWN Consulting Unavailable PROVIDER, UNKNOWN Consulting Unavailable BERYL MCMILLAN DO Consulting Unavailable BERYL MCMILLAN DO Referring Unavailable RICHARD, SONYA E Attending Unavailable RICHARD, SONYA E Admitting Unavailable RICHARD, SONYA E Primary Care Unavailable PROVIDER, UNKNOWN Consulting Unavailable PROVIDER, UNKNOWN Consulting Unavailable BERYL MCMILLAN DO Referring Unavailable BERYL MCMILLAN DO Consulting Unavailable RICHARD, SONYA E Primary Care Unavailable RICHARD, SONYA E Attending Unavailable RICHARD, SONYA E Admitting Unavailable PROVIDER, UNKNOWN Consulting Unavailable PROVIDER, UNKNOWN Consulting Unavailable UNGERER, NELLY HAIRSPRING FABRICATION SUPERVISOR Referring Unavailable CONCEPCION, BRIGHT C Primary Care Unavailable CONCEPCION, BRIGHT C Attending Unavailable UNGERER, NELLY HAIRSPRING FABRICATION SUPERVISOR Consulting Unavailable CONCEPCION, BRIGHT C Admitting Unavailable PROVIDER, UNKNOWN Consulting Unavailable CONCEPCION, BRIGHT C Primary Care Unavailable CONCEPCION, BRIGHT C Attending Unavailable CONCEPCION, BRIGHT C Admitting Unavailable AYLIN CARDOSO MD Admitting Unavailable BERYL MCMILLAN DO Referring Unavailable BERYL MCMILLAN DO Consulting Unavailable AYLIN CARDOSO MD Attending Unavailable AYLIN CARDOSO MD Primary Care Unavailable PROVIDER, UNKNOWN Consulting Unavailable PROVIDER, UNKNOWN Consulting Unavailable AYLIN CARDOSO MD Admitting Unavailable AYLIN CARDOSO MD Attending Unavailable BERYL MCMILLAN DO Referring Unavailable AYLIN CARDOSO MD Primary Care Unavailable FRAKOWSKI, BERYL DO Consulting Unavailable PROVIDER, UNKNOWN Consulting Unavailable PROVIDER, UNKNOWN Consulting Unavailable BRIGHT CONCEPCION Primary Care Unavailable BRIGHT CONCEPCION Attending Unavailable BERYL MCMILLAN DO Consulting Unavailable BERYL MCMILLAN DO Referring Unavailable BRIGHT CONCEPCION Admitting Unavailable PROVIDER, UNKNOWN Consulting Unavailable PROVIDER, UNKNOWN Consulting Unavailable Allergies Allergy Classification Reported Allergen(s) Allergy Type Date of Onset Reaction(s) Facility (4 sources) Sulfamethoxazole / Trimethoprim; Translations: [sulfamethoxazole-tr imethoprim] Drug Allergy 07-01-19 Rash, Hives, Itching [facility] (1 source) Sulfamethoxazole / Trimethoprim; Translations: [SULFAMETHOXAZOLE-TR IMETHOPRIM] Drug Allergy 07-01-19 [facility] Repository (2 sources) Sulfamethoxazole Allergy to substance 07-04-19 [facility] (2 sources) Trimethoprim Drug Allergy 09-06-19 [facility] (1 source) Sulfamethoxazole / Trimethoprim Drug Allergy [facility] Repository Medications Current Medications Medication Drug Class(es) Dates Sig (Normalized) Sig (Original) acetaminophen 325 mg / butalbital 50 mg / caffeine 40 mg oral tablet (2 sources) Barbiturate, Central Nervous System Stimulant, Methylxanthine Start: 03-03-2022 End: 03-10-2022 take 1 tablet by mouth every eight hours as needed for headache APAP/butalbital/ca ffeine 325-50-40 mg oral tablet (Fioricet) Dose = 1 tab(s), Oral, q8h, PRN Headache, X 7 day(s), # 5 tab(s), 0 Refill(s), Pharmacy: [id number], 149.9, cm, 03/02/22 4:46:00 EST, Height Start Date: 03/03/22 Stop Date: 03/10/22 Status: Ordered amitriptyline hydrochloride 10 mg oral tablet (3 sources) Tricyclic Antidepressant Start: 09-16-2022 amitriptyline (Elavil) 10 MG tablet TAKE 2 TABLETS BY MOUTH AT BEDTIME FOR 7 DAYS,THEN 1 AT BEDTIME FOR 7 DAYS,THEN 1 EVERY OTHER DAY FOR 7 DAYS THEN STOP 0 09/16/2022 Active Completed/Discontinued Medications Medication Drug Class(es) Dates Sig (Normalized) Sig (Original) amLODIPine 2.5 mg oral tablet (1 source) Dihydropyridine Calcium Channel Ramin Start: 11-09-2020 take 2 tablets by mouth once daily in the morning amLODIPine (NORVASC) 2.5 mg tablet Take 5 mg by mouth every morning. 0 11/09/2020 Active Problems Active Problems Problem Classification Problem Date Documented Da te Episodic/Chronic Cardiac dysrhythmias (4 sources) Tachyarrhythmia ; Translations: [Tachycardia, unspecified] Onset: 02-19-2023 Episodic E Codes: Fall (1 source) Fall on same level from slipping, tripping or stumbling ; Translations: [Fall on same level from slipping, tripping and stumbling without subsequent striking against object, initial encounter] Episodic Essential hypertension (1 source) Essential (primary) hypertension; Translations: [Essential (primary) hypertension] Onset: 02-24-2023 Chronic Fever of unknown origin (1 source) Fever, unspecified; Translations: [FEVER, UNSPECIFIED] Onset: 07-21-2017 Episodic Headache, including migraine (1 source) Headache; Translations: [HEADACHE] Onset: 07-21-2017 Episodic Headache; including migraine (1 source) Migraine; Translations: [Migraine, unspecified, not intractable, without status migrainosus] Chronic Nausea and vomiting (4 sources) Vomiting; Translations: [Vomiting, unspecified] Onset: 07-27-2022 Episodic Noninfectious gastroenteritis (1 source) Noninfective gastroenteritis and colitis, unspecified; Translations: [NONINFECTIVE GASTROENTERITIS AND COLITIS, UNSPECIFIED] Onset: 07-21-2017 Episodic Nonmalignant breast conditions (3 sources) Mastodynia; Translations: [Mastodynia] Onset: 01-21-2023 Episodic Other acquired deformities (1 source) Scoliosis deformity of spine; Translations: [Scoliosis, unspecified] Chronic Other acquired deformities (1 source) Thoracogenic scoliosis, thoracolumbar region; Translations: [Thoracogenic scoliosis] Onset: 02-21-2018 02-21-2018 Chronic Other acquired deformities (1 source) Scoliosis, unspecified; Translations: [Scoliosis, unspecified] Onset: 02-24-2023 Chronic Other complications of (3 sources) Other specified related conditions, first trimester; Translations: [Other specified related conditions, first trimester] Onset: 02-24-2023 Episodic Other congenital anomalies (2 sources) Osteogenesis imperfecta; Translations: [Osteogenesis imperfecta] Onset: 02-21-2018 Chronic Other congenital anomalies (1 source) Osteogenesis imperfecta; Translations: [Osteogenesis imperfecta] Onset: 02-24-2023 Chronic Other female genital disorders (1 source) Abnormal uterine and vaginal bleeding, unspecified; Translations: [Abnormal uterine and vaginal bleeding, unspecified] Onset: 11-14-2022 Chronic Other female genital disorders (2 sources) Other specified conditions associated with female genital organs and menstrual cycle; Translations: [Other specified conditions associated with female genital organs and menstrual cycle] Onset: 01-02-2022 Episodic Other female genital disorders (3 sources) Other specified noninflammatory disorders of vagina; Translations: [Other specified noninflammatory disorders of vagina] Onset: 03-05-2023 Episodic Other gastrointestinal disorders (1 source) Constipation, unspecified; Translations: [Constipation, unspecified] Onset: 02-24-2023 Episodic Other injuries and conditions due to external causes (1 source) Injury of chest wall; Translations: [Unspecified injury of thorax, initial encounter] Episodic Other lower respiratory disease (1 source) Cough; Translations: [COUGH] Onset: 07-21-2017 Episodic Other upper respiratory infections (1 source) Chronic sinusitis, unspecified; Translations: [CHRONIC SINUSITIS, UNSPECIFIED] Onset: 07-21-2017 Chronic Other upper respiratory infections (1 source) Acute sinusitis, unspecified; Translations: [ACUTE SINUSITIS, UNSPECIFIED] Onset: 07-21-2017 Episodic Residual codes; unclassified (1 source) Less than 8 weeks gestation of ; Translations: [Less than 8 weeks gestation of ] Onset: 02-24-2023 Episodic Unclassified (2 sources) Acquired absence of other specified parts of digestive tract; Translations: [ACQUIRED ABSENCE OF OTHER SPECIFIED PARTS OF DIGESTIVE TRACT] Onset: 07-21-2017 Episodic Past or Other Problems Problem Classification Problem Date Documented Da te Episodic/Chronic Abdominal pain (6 sources) Pain in female pelvis; Translations: [Pelvic and perineal pain] Onset: 03-12-2021 01-02-2022 Episodic Allergic reactions (2 sources) Allergy status to other drugs, medicaments and biological substances status; Translations: [Allergy status to other antibiotic agents status] Onset: 05-07-2023 Episodic Gastritis and duodenitis (1 source) Gastritis, unspecified, without bleeding; Translations: [Gastritis, unspecified, without bleeding] Onset: 07-27-2022 Episodic Other female genital disorders (3 sources) Burning sensation of vulva; Translations: [Other specified conditions associated with female genital organs and menstrual cycle] Onset: 05-04-2020 01-27-2023 Episodic Other injuries and conditions due to external causes (1 source) Unspecified injury of thorax, initial encounter; Translations: [Chest wall injury, initial encounter] Onset: 07-12-2022 Episodic Other nutritional; endocrine; and metabolic disorders (3 sources) Abnormal weight gain; Translations: [Abnormal weight gain] Onset: 08-14-2022 Episodic Other screening for suspected conditions (not mental disorders or infectious disease) (1 source) Other specified abnormal findings of blood chemistry; Translations: [Other specified abnormal findings of blood chemistry] Onset: 09-12-2022 Episodic Results Test Name Value Interpretation Reference Range Facil ity Vital Signs Date Time Vital Sign Value Performing Clinician Ming litrafael 01-27-2023 09:27-0500 Body mass index (BMI) [Ratio] 26.05 kg/m2 Jessa Noel MD Work Phone: [facility] 01-27-2023 09:27-0500 Body weight 58.51 kg Jessa Noel MD Work Phone: [facility] 01-27-2023 09:27-0500 Diastolic blood pressure 70 mm[Hg] Jessa Noel MD Work Phone: [facility] 01-27-2023 09:27-0500 Heart rate 89 /min Jessa Noel MD Work Phone: [facility] 01-27-2023 09:27-0500 Systolic blood pressure 113 mm[Hg] Jessa Noel MD Work Phone: [facility] 07-12-2022 09:02-0400 Body weight 60.33 kg Nelly Doe GEM CARVER.ASSOCIATE PRINCIPAL Work Phone: [facility] 07-12-2022 09:02-0400 Diastolic blood pressure 70 mm[Hg] Nelly Doe GEM CARVER.ASSOCIATE PRINCIPAL Work Phone: [facility] 07-12-2022 09:02-0400 Heart rate 97 /min Nelly Doe GEM CARVER.ASSOCIATE PRINCIPAL Work Phone: [facility] 07-12-2022 09:02-0400 Respiratory rate 16 /min Nelly Doe GEM CARVER.ASSOCIATE PRINCIPAL Work Phone: [facility] 07-12-2022 09:02-0400 SaO2% (BldA) [Mass fraction] 98 % Nelly Doe GEM CARVER.ASSOCIATE PRINCIPAL Work Phone: [facility] 07-12-2022 09:02-0400 Systolic blood pressure 110 mm[Hg] Nelly Doe GEM CARVER.ASSOCIATE PRINCIPAL Work Phone: [facility] 03-03-2022 19:13-0500 Blood Pressure Cuff Size TERRENCE ODONNELL MD [facility] 03-03-2022 19:13-0500 Blood Pressure Location TERRENCE ODONNELL MD [facility] 03-03-2022 19:13-0500 Blood Pressure Method TERRENCE ODONNELL MD [facility] 03-03-2022 19:13-0500 Body temperature 98.06 [degF] TERERNCE ODONNELL MD [facility] 03-03-2022 19:13-0500 Diastolic Blood Pressure Non-Invasive 87 1 TERRENCE ODONNELL MD [facility] 03-03-2022 19:13-0500 Heart rate 88 /min TERRENCE ODONNELL MD [facility] 03-03-2022 19:13-0500 Reason For Taking VItal Signs TERRENCE ODONNELL MD [facility] 03-03-2022 19:13-0500 Respiratory rate 18 /min TERRENCE ODONNELL MD [facility] 03-03-2022 19:13-0500 Systolic Blood Pressure Non-Invasive 118 1 TERRENCE ODONNELL MD [address] [place] [address] 03-03-2022 16:39-0500 Blood Pressure Location TERRENCE ODONNELL MD [facility] 03-03-2022 16:39-0500 Blood Pressure Method TERRENCE ODONNELL MD [address] [place] [address] 03-03-2022 16:39-0500 Body temperature 97.34 [degF] TERRENCE ODONNELL MD [address] [place] [address] 16:39-0500 Diastolic Blood Pressure Non-Invasive 86 1 TERRENCE ODONNELL MD [address] [place] [address] 03-03-2022 16:39-0500 Heart rate 92 /min TERRENCE ODONNELL MD [address] [place] [address] 03-03-2022 16:39-0500 Mean blood pressure 95 mm[Hg] TERRENCE ODONNELL MD [address] [place] [address] 03-03-2022 16:39-0500 Reason For Taking VItal Signs TERRENCE ODONNELL MD [facility] 03-03-2022 16:39-0500 Respiratory rate 18 /min TERRENCE ODONNELL MD [facility] 03-03-2022 16:39-0500 Systolic Blood Pressure Non-Invasive 114 1 TERRENCE ODONNELL MD [address] [place] [address] 03-03-2022 11:44-0500 Blood Pressure Location TERRENCE ODONNELL MD [address] [place] [address] 03-03-2022 11:44-0500 Blood Pressure Method TERRENCE ODONNELL MD [address] [place] [address] 03-03-2022 11:44-0500 Body temperature 97.52 [degF] TERRENCE ODONNELL MD [address] [place] [address] 03-03-2022 11:44-0500 Diastolic Blood Pressure Non-Invasive 77 1 TERRENCE ODONNELL MD [address] [place] [address] 03-03-2022 11:44-0500 Heart rate 86 /min TERRENCE ODONNELL MD [address] [place] [address] 03-03-2022 11:44-0500 Mean blood pressure 88 mm[Hg] TERRENCE ODONNELL MD [address] [place] [address] 03-03-2022 11:44-0500 Reason For Taking VItal Signs TERRENCE ODONNELL MD [address] [place] [address] 03-03-2022 11:44-0500 Respiratory rate 18 /min TERRENCE ODONNELL MD [address] [place] [address] 03-03-2022 11:44-0500 Systolic Blood Pressure Non-Invasive 109 1 TERRENCE ODONNELL MD [address] [place] [address] 03-03-2022 08:57-0500 Heart rate 89 /min TERRENCE ODONNELL MD [address] [place] [address] 03-03-2022 04:29-0500 Heart rate 82 /min TERRENCE ODONNELL MD [facility] 03-03-2022 00:15-0500 Heart rate 84 /min TERRENCE ODONNELL MD [address] [place] [address] 03-02-2022 19:32-0500 Heart rate 98 /min TERRENCE ODONNELL MD [address] [place] [address] 03-02-2022 13:30-0500 Heart rate 111 /min TERRENCE ODONNELL MD [address] [place] [address] 03-02-2022 08:49-0500 Heart rate 118 /min TERRENCE ODONNELL MD [facility] 03-02-2022 04:30-0500 Body height 149.9 cm TERRENCE ODONNELL MD [facility] 03-02-2022 04:30-0500 Body weight 53.8 kg TERRENCE ODONNELL MD [facility] 03-02-2022 04:30-0500 Body weight 23.94 kg/m2 TERRENCE ODONNELL MD [facility] Encounters Encounter Date Encounter Type Care Provider Facility Start: 03-16-2023 End: 03-16-2023 Emergency department patient visit BRIGHT CONCEPCION [facility] Start: 03-05-2023 End: 03-05-2023 ambulatory DULCE ACOSTA [facility] Start: 02-24-2023 End: 02-24-2023 Emergency department patient visit NELLY SHERIDAN [facility] Start: 02-19-2023 End: 02-19-2023 ambulatory NELLY SHERIDAN [facility] Start: 01-27-2023 End: 01-27-2023 ambulatory JESSA NOEL [facility] Start: 01-27-2023 End: 01-27-2023 Office outpatient visit 15 minutes Jessa Noel MD Work Phone: [facility] Procedures Date Procedure Procedure Detail Performing Clinician Start: 02-24-2023 Urinalysis FRANK ADKINS Plan of Treatment Date Care Activity Detail Author Start: 2056 RSV Immunization aged 60 or older (1 - 1-dose 60+ series) RSV Immunization aged 60 or older (1 - 1-dose 60+ series) [facility] Start: 2046 Zoster Vaccines (1 of 2) Zoster Vaccines (1 of 2) [facility] Start: 12-14-2028 DTaP/Tdap/Td Vaccines (9 - Td or Tdap) DTaP/Tdap/Td Vaccines (9 - Td or Tdap) [facility] Start: 11-21-2022 COVID-19 Vaccine ( season) COVID-19 Vaccine ( season) [facility] Start: 11-21-2022 Influenza vaccination [facility] Start: 01-01-2023 DEPRESSION ASSESSMENT DEPRESSION ASSESSMENT [facility] Start: 10-20-2020 COVID-19 VACCINE (3 - Booster for Pfizer series) COVID-19 VACCINE (3 - Booster for Pfizer series) [facility] Start: 10-20-2020 COVID-19 Vaccine (3 - Pfizer series) COVID-19 Vaccine (3 - Pfizer series) [facility] Start: 2017 PAP TESTING PAP TESTING [facility] Start: 2017 Screening for malignant neoplasm of cervix Pap Smear [facility] Start: 06-20-2015 Urine microalbumin profile DTAP,TDAP,TD (1 - Tdap) [facility] Start: 12-26-2014 Hepatitis A Vaccines (2 of 2 - 2-dose series) Hepatitis A Vaccines (2 of 2 - 2-dose series) [facility] Start: 07-24-2014 HPV Vaccines (2 - 3-dose series) HPV Vaccines (2 - 3-dose series) [facility] Start: 2014 HEPATITIS C SCREENING HEPATITIS C SCREENING [facility] Start: 2014 Hepatitis C screening Hepatitis C Screening [facility] Start: 2014 HIV SCREENING HIV SCREENING [facility] Start: 2010 PEDS TO ADULT TRANSITION ANNUAL ASSESSMENT PEDS TO ADULT TRANSITION ANNUAL ASSESSMENT [facility] Start: 2008 Depression Screening Depression Screening [facility] Start: 2008 PEDS TO ADULT TRANSITION INITIAL DISCUSSION PEDS TO ADULT TRANSITION INITIAL DISCUSSION [facility] Start: 06-20-2007 HPV VACCINE (1 - 2-dose series) HPV VACCINE (1 - 2-dose series) [facility] Start: 1996 HEPATITIS B (1 of 3 - 3-dose series) HEPATITIS B (1 of 3 - 3-dose series) [facility] Start: 1996 HIV screening HIV Screening [facility] Start: 1996 Lipid panel Lipid Panel [facility] Start: 1996 Thyroid stimulating hormone measurement TSH Level [facility] CHLAMYDIA/N.GONORRHO EAE AND T. VAGINALIS RNA, QL TMA ([facility]) Chlamydia/N.Gonorrhoeae and T. Vaginalis RNA, QL TMA ([facility]) Microbiology Routine Vulvar burning Ordered: 01/27/2023 [facility] Work Phone: Immunizations Immunization Date Immunization Notes Care Provider Fa cility 12-25-2022 influenza virus vacc ine, unspecified formulation Jessa Noel MD Work Phone: [facility] 12-31-2020 influenza virus vacc ine, unspecified formulation TERRENCE ODONNELL MD [facility] 08-25-2020 SARS-CoV-2 mRNA (tozinameran) vaccine TERRENCE ODONNELL MD [facility] 07-25-2020 SARS-CoV-2 mRNA (tozinameran) vaccine TERRENCE ODONNELL MD [facility] 03-15-2020 influenza virus vacc ine, unspecified formulation TERRENCE ODONNELL MD [facility] 04-23-2019 influenza virus vacc ine, unspecified formulation TERRENCE ODONNELL MD [facility] 12-14-2018 tetanus toxoid, redu niya diphtheria toxoid, and acellular pertussis vaccine, adsorbed TERRENCE ODONNELL MD [facility] 12-10-2018 influenza virus vacc ine, unspecified formulation TERRENCE ODONNELL MD [facility] 03-23-2017 influenza virus vacc ine, unspecified formulation TERRENCE ODONNELL MD [facility] 06-26-2014 hepatitis A vaccine, pediatric dosage, unspecified formulation TERRENCE ODONNELL MD [facility] 06-26-2014 Human Papillomavirus Quadval TERRENCE ODONNELL MD [facility] 06-26-2014 meningococcal polysaccharide (groups A, C, Y and W-135) diphtheria toxoid conjugate vaccine (MCV4P) TERRENCE ODONNELL MD [facility] 06-26-2014 varicella virus vaccine JONO ODONNELL MD [facility] 06-26-2014 hepatitis A and hepa titis B vaccine Jessa Noel MD Work Phone: [facility] 06-26-2014 HPV, unspecified formulation Jessa Noel MD Work Phone: [facility] 01-26-2013 influenza virus vacc ine, unspecified formulation TERRENCE ODONNELL MD [facility] 04-10-2010 influenza virus vacc ine, unspecified formulation TERRENCE ODONNELL MD [facility] 08-07-2009 tetanus toxoid, redu niya diphtheria toxoid, and acellular pertussis vaccine, adsorbed TERRENCE ODONNELL MD [facility] 02-20-2003 influenza virus vacc ine, unspecified formulation TERRENCE ODONNELL MD [facility] 11-01-2002 measles/mumps/rubell a virus vaccine TERRENCE ODONNELL MD [facility] 11-01-2002 poliovirus vaccine, inactivated TERRENCE ODONNELL MD [facility] 12-18-1997 haemophilus influenz ae type b vaccine, PRP-OMP conjugate TERRENCE ODONNELL MD [facility] 12-18-1997 varicella virus vaccine JONO ODONNELL MD [facility] 06-26-1997 measles/mumps/rubell a virus vaccine TERRENCE ODONNELL MD [facility] 02-14-1997 hepatitis B pediatri c vaccine TERRENCE ODONNELL MD [facility] 1996 hepatitis B pediatri c vaccine TERRENCE ODONNELL MD [facility] 1995 hepatitis B pediatri c vaccine TERRENCE ODONNELL MD [facility] Payers Date Payer Category Payer Medicaid [employer] [employer] [place] [employer] ODM [id number] 2023-Present [phone] [address] [place] [address] Medicaid HMO [id number] 2023 Medicaid [id number] 2018 Unknown [id number] 2018 Unknown [id number] 1996 Unknown [id number] 1996 Unknown [id number] 2.16.840.1.188502.3.579.2.651 1996 Unknown [id number] 2.16.840.1.803685.3.579.2.651 1996 Unknown [id number] 2.16.840.1.748558.3.579.2.651 1996 Unknown [id number] 2.16.840.1.824942.3.579.2.651 1996 Unknown [id number] 2.16.840.1.491685.3.579.2.651 1996 Unknown [id number] 2.16.840.1.420986.3.579.2.651 1996 Unknown [id number] 2.16.840.1.026554.3.579.2.651 1996 Unknown [id number] 2.16.840.1.607369.3.579.2.651 1996 Unknown [id number] 2.16.840.1.697447.3.579.2.651 1996 Unknown [id number] 2.16.840.1.153502.3.579.2.651 1996 Unknown [id number] 2.16.840.1.754612.3.579.2.651 1996 Unknown [id number] 2.16.840.1.463868.3.579.2.651 1996 Unknown [id number] 2.16.840.1.845004.3.579.2.651 1996 Unknown [id number] 2.16.840.1.519002.3.579.2.651 1996 Unknown [id number] [id number] Unknown Social History Date Type Detail Facility [facility] Start: 12-19-2017 Tobacco use and exposure Smoke less tobacco non-user [facility] Start: 05-17-2021 End: 03-11-2022 Alcohol intake Lifetime non-drinker (finding) [facility] Start: 06-05-2020 History SDOH Alcohol Frequency 1 [facility] Start: 1995 [facility]: [facility]22 History of Social function [facility] Start: 03-11-2022 Tobacco use panel [facility] Start: 01-09-2022 Gender identity Identifies as female gender (finding) [facility] Start: 01-09-2022 Sexual orientation Heterosexual (fin ding) [facility] Functional Status Date Assessment Result Facility 03-03-2022 Functional Status Single level home [facility] 03-03-2022 Functional Status [facility] 03-03-2022 Functional Status [facility] 03-03-2022 Functional Status Breakfast Percent 75 [facility] 03-03-2022 Functional Status Shampoo/Body wash (no r inse) [facility] 03-02-2022 Functional Status Hospital bed [facility] 03-02-2022 Functional Status [facility] 03-02-2022 Functional Status [facility] 03-02-2022 Functional Status Sensory Deficits None [facility] Mental Status Date Assessment Result Facility 03-03-2022 Mental Status Oriented x 4 [facility] 03-02-2022 Mental Status [facility] 03-02-2022 Mental Status [facility] Clinical Notes 03-02-2022 to 03-09-2023 Jessa Noel MD - 01/27/2023 9:30 AM ESTTelephone Encounter - Charity Thapa RN - 01/22/2023 2:51 PM EDTTelephone Encounter - Charity Thapa RN - 01/22/2023 2:51 PM EDTPatient Instructions Note Date & Type Note Facility 03-09-2023 Note . MICRO - Microbiology PROCEDURE: Culture Wound Aerobic with Gram Stain [*1] SOURCE: Wound (surface) BODY SITE: Vagina COLLECTED DATE/TIME: 03/05/2023 12:30 EST RECEIVED DATE/TIME: 03/06/2023 17:33 EST START DATE/TIME: 03/06/2023 17:34 EST FREE TEXT SOURCE: FINAL REPORTS Final Report [] Verified Date/Time/Personnel: 03/09/2023 07:52 EST Normal Vaginal Lawanda: Present Neisseria gonorrhoeae: Negative PRELIMINARY REPORTS Preliminary Report [] Verified Date/Time/Personnel: 03/07/2023 11:43 EST Normal Vaginal Lawanda: Present Neisseria gonorrhoeae: Pending STAINS GS [] Verified Date/Time/Personnel: 03/06/2023 22:26 EST 2+ Epithelial cells 4+ Gram Positive Rods Performing Locations *1: This test was performed at: [address], [facility] , [facility] ([place]) 01-27-2023 History of Present illness Narrative CC: Chief Complaint Patient presents with Vaginal Pain HPI: 27 y.o. No obstetric history on file. Here with vestibular burning Started 2 weeks ago. She first went to urgent care, given Rx fluconazole. No relief Went to her [facility] in [place], vaginal culture + E. Coli- Rx Augmentin. No relief Napoleon states her symptoms are a burning around the vaginal opening. No discharge, itching, or odor She is SA with a new partner She has been using vagisil PMH has a past medical history of Acquired adolescent scoliosis and Osteogenesis imperfecta. O: Vitals: 01/27/23 0927 BP: 113/70 BP Location: Left arm Patient Position: Sitting BP Cuff Size: Adult long Pulse: 89 Weight: 129 lb (58.5 kg) GEN: well nourished, no acute distress RESP: normal effort [facility]: EXTERNAL: Groin: normal skin color and texture Mons pubis:normal skin color and texture Anterior commissure: normal skin color and texture Labia majora: no lesions, color changes, normal texture Interlabial folds: normal skin color and texture. Normal anatomy Labia minora: normal skin color and texture. Normal architecture bilaterally Prepuce: normal and mobile Clitoris: visible Vestibule: normal skin color and texture Urethral meatus: normal Perineum: normal skin color and texture Glands: normal Anus: no masses or external hemorrhoids INTERNAL: Vagina: no erythema, erosions, ulcerations, synechiae Normal Rugae present yes Discharge: scant white Cervix: no discharge, not friable Uterus: non tender, normal size Adnexa: no masses Bladder: non tender PSYCH: A&O x 3, normal mood and behavior Wet mount: pH normal Clue cells Absent Trichomonas Absent Yeast Absent Parabasal cells Absent Lactobacilli Present Whiff test: negative WBC: Epi < 1:1 ASSESSMENT/PLAN Napoleon was seen today for vaginal pain. Diagnoses and all orders for this visit: Vulvar burning (Primary) - nystatin-triamcinolone (Mycolog II) ointment; Apply topically 2 times daily for 14 days. - Chlamydia/N.Gonorrhoeae and T. Vaginalis RNA, QL TMA ([facility]) - Sureswab(R) Adv Jennifer Vaginitis (CV), TMA ([facility]) Stop all vaginal/vulvar products. Will try above ointment x 2 weeks, also use vaseline. documented in this encounter [facility] 01-22-2023 Telephone encounter Note S: Patient spoke with [facility] nurse regarding vaginal burning B: Onset of symptoms/concern >2 weeks A: Symptoms started 2 1/2 weeks ago, was seen, prescribed Amoxicillin, on day 6, states she had e.coli. Now endorsing pelvic pain, constant vaginal burning. Feels slightly nauseated. Denies: fever, chills, discharge, odor, bleeding, burning with urination. Patient has seen Dr. Noel in the past. Lives in [place] so would like appointment in closest office if possible. R: Patient declined sooner appointment this week due to scheduling conflicts and location. Called the Pelvic Health clinic at [facility] and spoke with OK to schedule patient in new patient slot at 9:30 and change to office visit. Address of office verified. Patient understands care advice. No further needs at this time. Patient instructed to call back with new or worsening symptoms. Reason for Disposition Patient wants to be seen Protocols used: Vaginal [id number] [facility] 01-22-2023 Miscellaneous Notes S: Patient spoke with [facility] nurse regarding vaginal burning B: Onset of symptoms/concern >2 weeks A: Symptoms started 2 1/2 weeks ago, was seen, prescribed Amoxicillin, on day 6, states she had e.coli. Now endorsing pelvic pain, constant vaginal burning. Feels slightly nauseated. Denies: fever, chills, discharge, odor, bleeding, burning with urination. Patient has seen Dr. Noel in the past. Lives in [place] so would like appointment in closest office if possible. R: Patient declined sooner appointment this week due to scheduling conflicts and location. Called the Pelvic Health clinic at [facility] and spoke with Donna. AWAD to schedule patient in new patient slot at 9:30 and change to office visit. Address of office verified. Patient understands care advice. No further needs at this time. Patient instructed to call back with new or worsening symptoms. Reason for Disposition Patient wants to be seen Protocols used: Vaginal [id number] documented in this encounter [facility] 11-19-2022 Note . MICRO - Microbiology PROCEDURE: Affirm Pathogens DNA Direct Probe [*1] SOURCE: Vaginal Fluid BODY SITE: Vagina COLLECTED DATE/TIME: 11/18/2022 09:48 EDT RECEIVED DATE/TIME: 11/18/2022 21:13 EDT START DATE/TIME: 11/18/2022 21:13 EDT FREE TEXT SOURCE: FINAL REPORTS Final Report [] Verified Date/Time/Personnel: 11/19/2022 11:07 EDT Jennifer species DNA Probe Negative Gardnerella vaginalis DNA Probe Negative Trichomonas vaginalis DNA Probe Negative Performing Locations *1: This test was performed at: [facility], [address] [place] [address], [address] , [facility] ([place]) 07-12-2022 Note HNO ID: [id number] Author: Nelly Doe APRN.ASSOCIATE PRINCIPAL Service: ? Author Type: Nurse Practitioner Type: Progress Notes Filed: 07/12/2022 10:02 AM Note Text: This note was created using LE TOTEriter. Subjective Napoleon Low is a 27 year old female. 27 year old female with PMH OI and scoliosis presents with complaints of chest wall pain. Acute onset one week ago. Anterior chest wall. Tripped over her Childrens toys and then fell onto her bed rail, She struck her chest. +front anterior chest with diffuse tenderness +bruising Pain with coughing. Denies head injury. Denies LOC. Denies neck or back pain. Denies abdominal pain. Denies N/V/D Denies blood thinners. Denies seeking medical treatment at time of injury. Has used Tylenol and Ibuprofen. The history is provided by the patient. No speech and language specialist was used. Chest Pain This is a new problem. The current episode started more than 1 week ago. The problem occurs constantly. The problem has not changed since onset.The pain is associated with exertion, movement, coughing and breathing. Pain location: lateral anterior. The pain is at a severity of 5/10. The pain is moderate. The quality of the pain is described as pressure-like and sharp. The pain does not radiate. Duration of episode(s) is 7 days. The symptoms are aggravated by certain positions and deep breathing. Pertinent negatives include no abdominal pain, no back pain, no claudication, no cough, no diaphoresis, no dizziness, no exertional chest pressure, no fever, no headaches, no hemoptysis, no irregular heartbeat, no leg pain, no lower extremity edema, no malaise/fatigue, no nausea, no near-syncope, no numbness, no orthopnea, no palpitations, no PND, no shortness of breath, no sputum production, no syncope, no vomiting and no weakness. She has tried rest for the symptoms. The treatment provided no relief. There are no known risk factors. Pertinent negatives for past medical history include no COPD, no CHF, no DVT, no Marfan's syndrome, no [place] and no strokes. Procedure history is negative for cardiac catheterization, echocardiogram and EPS study. PAST MEDICAL HISTORY Diagnosis Date Migraine headache Osteogenesis imperfecta 02/21/2018 Preeclampsia Seasonal allergies Thoracogenic scoliosis of thoracolumbar region 02/21/2018 PAST SURGICAL HISTORY Procedure Laterality Date CHOLECYSTECTOMY EGD 06/07/2020 ALLERGIES Bactrim [Sulfamethoxazole-Trimethoprim] MEDICATIONS LORazepam (ATIVAN) 0.5 mg DULoxetine (CYMBALTA) 60 mg capsule Take 60 mg by mouth once daily. amitriptyline (ELAVIL) 10 mg tablet Take 25 mg by mouth daily at bedtime. ubrogepant (UBRELVY) 50 mg tablet Take 100 mg by mouth. predniSONE (DELTASONE) 10 mg tablet Take 4 tabs daily for 3 days, then 2 tabs daily for 3 days, then 1 tab daily for 3 days with food. cyclobenzaprine (FLEXERIL) 10 mg tablet Take 1 tablet by mouth three times daily as needed for muscle spasm. fluticasone propionate (XHANCE) 93 mcg/actuation nasal spray Use 2 Sprays in the nose twice daily. (Patient not taking: Reported on 07/12/2022) amLODIPine (NORVASC) 2.5 mg tablet Take 5 mg by mouth every morning. (Patient not taking: Reported on 07/12/2022) eletriptan (RELPAX) 20 mg tablet Take 20 mg by mouth as needed. (Patient not taking: Reported on 07/12/2022) hydrocortisone (ANUSOL-HC) 25 mg suppository 1 Suppository by RECTAL route twice daily. (Patient not taking: No sig reported) LINZESS 290 mcg capsule Take 145 mcg by mouth once daily. (Patient not taking: No sig reported) pantoprazole DR (PROTONIX) 20 mg tablet Take 40 mg by mouth once daily. (Patient not taking: No sig reported) topiramate (TOPAMAX) 25 mg capsule (Patient not taking: Reported on 02/16/2021 ) medroxyPROGESTERone (DEPO-PROVERA) 400 mg/mL susp Inject 400 mg intramuscularly every 12 weeks. (Patient not taking: No sig reported) fluticasone (FLONASE) 50 mcg/actuation nasal spray Use 2 Sprays in each nostril once daily. Rinse mouth after use. (Patient not taking: No sig reported) nystatin (MYCOSTATIN) ointment APPLY 2 TIMES A DAY TO BURNING VAGINAL AREA (Patient not taking: No sig reported) sodium chloride (SALINE MIST) 0.65 % nasal spray Use 1 [place] in the nose every 6 hours as needed for Cold/Allergy Symptoms. (Patient not taking: No sig reported) No family history on file. Social History Tobacco Use Smoking status: Never Smokeless tobacco: Never Vaping Use Vaping Use: Never used Substance Use Topics Alcohol use: Never Drug use: Never Review of Systems Constitutional: Negative for diaphoresis, fever and malaise/fatigue. Eyes: Negative for pain and discharge. Respiratory: Negative for apnea, cough, hemoptysis, sputum production, chest tightness and shortness of breath. Cardiovascular: Positive for chest pain. Negative for palpitations, orthopnea, claudication, syncope, PND and near-syncope. Gastrointestin (more content not included)... [facility] 07-12-2022 Note HNO ID: [id number] Author: RT Elvira(R) Service: Radiology Author Type: Technologist Type: Progress Notes Filed: 07/12/2022 9:22 AM Note Text: Radiology Service Progress Note PATIENT NAME: Napoleon Low DATE OF SERVICE: July 12, 2022 TIME: 9:15 AM PATIENT IDENTITY VERIFICATION COMPLETED USING TWO (2) IDENTIFIERS: Name and Date of confirmed by patient verbally. FALL SCREENING: Has the patient had 2 falls in the last year or 1 fall with injury or currently using an Ambulatory Assistive Device (Walker, Cane, Wheelchair, Crutches, etc.)? No PATIENT GENDER DATA: Female. status: : No status: NO. PATIENT RELEVANT IMPLANT DATA REVIEWED: Yes RADIOLOGY DEPARTMENT: General X-ray: Exam(s) Completed: Chest X-Ray PERIPHERAL IV DATA: Not applicable SIGNED BY: RT Elvira(R) July 12, 2022 9:15 AM [facility] 07-12-2022 Instructions Nellykeira Doe APRN.CNP - 07/12/2022 9:50 AM EDT R.I.C.E. The general care of your injury includes the following: Resting, Icing, Compressing and Elevating the injured area. Remember this as RICE. REST: Limit the use of the injured body part. ICE: By applying ice to the affected area, swelling and pain can be reduced. Place some ice cubes in a re-sealable (Ziploc) bag and add some water. Put a thin washcloth between the bag and your skin. Apply the ice bag to the area for at least 20 minutes. Do this at least 4 times per day. Using the ice for longer times and more frequently is OK. NEVER APPLY ICE DIRECTLY TO THE SKIN. COMPRESS: Compression means to apply pressure around the injured area such as with a splint, cast or an barbara bandage. Compression decreases swelling and improves comfort. Compression should be tight enough to relieve swelling but not so tight as to decrease circulation. Increasing pain, numbness, tingling, or change in skin color, are all signs of decreased circulation. ELEVATE: Elevate the injured part. For example, elevate your foot by placing it on a chair while sitting, or propping it up on pillows when lying down. documented in this encounter [facility] 07-12-2022 History of Present illness Narrative This note was created using LE TOTEriter. Subjective Napoleon Low is a 27 year old female. 27 year old female with PMH OI and scoliosis presents with complaints of chest wall pain. Acute onset one week ago. Anterior chest wall. Tripped over her Childrens toys and then fell onto her bed rail, She struck her chest. +front anterior chest with diffuse tenderness +bruising Pain with coughing. Denies head injury. Denies LOC. Denies neck or back pain. Denies abdominal pain. Denies N/V/D Denies blood thinners. Denies seeking medical treatment at time of injury. Has used Tylenol and Ibuprofen. The history is provided by the patient. No speech and language specialist was used. Chest Pain This is a new problem. The current episode started more than 1 week ago. The problem occurs constantly. The problem has not changed since onset.The pain is associated with exertion, movement, coughing and breathing. Pain location: lateral anterior. The pain is at a severity of 5/10. The pain is moderate. The quality of the pain is described as pressure-like and sharp. The pain does not radiate. Duration of episode(s) is 7 days. The symptoms are aggravated by certain positions and deep breathing. Pertinent negatives include no abdominal pain, no back pain, no claudication, no cough, no diaphoresis, no dizziness, no exertional chest pressure, no fever, no headaches, no hemoptysis, no irregular heartbeat, no leg pain, no lower extremity edema, no malaise/fatigue, no nausea, no near-syncope, no numbness, no orthopnea, no palpitations, no PND, no shortness of breath, no sputum production, no syncope, no vomiting and no weakness. She has tried rest for the symptoms. The treatment provided no relief. There are no known risk factors. Pertinent negatives for past medical history include no COPD, no CHF, no DVT, no Marfan's syndrome, no [place] and no strokes. Procedure history is negative for cardiac catheterization, echocardiogram and EPS study. PAST MEDICAL HISTORY Diagnosis Date Migraine headache Osteogenesis imperfecta 02/21/2018 Preeclampsia Seasonal allergies Thoracogenic scoliosis of thoracolumbar region 02/21/2018 PAST SURGICAL HISTORY Procedure Laterality Date CHOLECYSTECTOMY EGD 06/07/2020 ALLERGIES Bactrim [Sulfamethoxazole-Trimethoprim] MEDICATIONS LORazepam (ATIVAN) 0.5 mg DULoxetine (CYMBALTA) 60 mg capsule Take 60 mg by mouth once daily. amitriptyline (ELAVIL) 10 mg tablet Take 25 mg by mouth daily at bedtime. ubrogepant (UBRELVY) 50 mg tablet Take 100 mg by mouth. predniSONE (DELTASONE) 10 mg tablet Take 4 tabs daily for 3 days, then 2 tabs daily for 3 days, then 1 tab daily for 3 days with food. cyclobenzaprine (FLEXERIL) 10 mg tablet Take 1 tablet by mouth three times daily as needed for muscle spasm. fluticasone propionate (XHANCE) 93 mcg/actuation nasal spray Use 2 Sprays in the nose twice daily. (Patient not taking: Reported on 07/12/2022) amLODIPine (NORVASC) 2.5 mg tablet Take 5 mg by mouth every morning. (Patient not taking: Reported on 07/12/2022) eletriptan (RELPAX) 20 mg tablet Take 20 mg by mouth as needed. (Patient not taking: Reported on 07/12/2022) hydrocortisone (ANUSOL-HC) 25 mg suppository 1 Suppository by RECTAL route twice daily. (Patient not taking: No sig reported) LINZESS 290 mcg capsule Take 145 mcg by mouth once daily. (Patient not taking: No sig reported) pantoprazole DR (PROTONIX) 20 mg tablet Take 40 mg by mouth once daily. (Patient not taking: No sig reported) topiramate (TOPAMAX) 25 mg capsule (Patient not taking: Reported on 02/16/2021 ) medroxyPROGESTERone (DEPO-PROVERA) 400 mg/mL susp Inject 400 mg intramuscularly every 12 weeks. (Patient not taking: No sig reported) fluticasone (FLONASE) 50 mcg/actuation nasal spray Use 2 Sprays in each nostril once daily. Rinse mouth after use. (Patient not taking: No sig reported) nystatin (MYCOSTATIN) ointment APPLY 2 TIMES A DAY TO BURNING VAGINAL AREA (Patient not taking: No sig reported) sodium chloride (SALINE MIST) 0.65 % nasal spray Use 1 [place] in the nose every 6 hours as needed for Cold/Allergy Symptoms. (Patient not taking: No sig reported) No family history on file. Social History Tobacco Use Smoking status: Never Smokeless tobacco: Never Vaping Use Vaping Use: Never used Substance Use Topics Alcohol use: Never Drug use: Never Review of Systems Constitutional: Negative for diaphoresis, fever and malaise/fatigue. Eyes: Negative for pain and discharge. Respiratory: Negative for apnea, cough, hemoptysis, sputum production, chest tightness and shortness of breath. Cardiovascular: Positive for chest pain. Negative for palpitations, orthopnea, claudication, syncope, PND and near-syncope. Gastrointestinal: Negative for abdominal pain, nausea and vomiting. Musculoskeletal: Negative for back pain. Allergic/Immunologic: Negative for environmental allergies, food allergies and immunocompromised state. Neurological: Negative for dizziness, weakness, numbness and headaches. Hematological: Negative for adenopathy. Does not bruise/bleed easily. Psychiatric/Behavioral: Negative for agitation and behavioral problems. Objective BP 110/70 Pulse 97 Resp 16 Wt 60.3 kg (133 lb) LMP 04/18/2019 (Approximate) SpO2 98% BMI 26.86 kg/m Physical Exam Vitals and nursing note reviewed. Constitutional: General: She is not in acute distress. Appearance: Normal appearance. She is normal weight. She is not ill-appearing, toxic-appearing or diaphoretic. HENT: Head: Normocephalic and atraumatic. Right Ear: Ear canal and external ear normal. Left Ear: Ear canal and external ear normal. Nose: Nose normal. No congestion or rhinorrhea. Mouth/Throat: Mouth: Mucous membranes are moist. Pharynx: No oropharyngeal exudate or posterior oropharyngeal erythema. Eyes: General: Right eye: No discharge. Left eye: No discharge. Extraocular Movements: Extraocular movements intact. Conjunctiva/sclera: Conjunctivae normal. Pupils: Pupils are equal, round, and reactive to light. Cardiovascular: Rate and Rhythm: Normal rate and regular rhythm. Pulses: Normal pulses. Heart sounds: Normal heart sounds. No murmur heard. No friction rub. Pulmonary: Effort: Pulmonary effort is normal. No respiratory distress. Breath sounds: Normal breath sounds. No stridor. No wheezing, rhonchi or rales. Chest: Chest wall: Tenderness (Diffuse anterior chest wall TTP. Left anterior chest with healing yellow ecchymotic area noted. No break in skin integrity. No flail chest) present. Abdominal: General: Abdomen is flat. There is no distension. Palpations: Abdomen is soft. There is no mass. Tenderness: There is no abdominal tenderness. There is no right CVA tenderness, left CVA tenderness, guarding or rebound. Hernia: No hernia is present. Musculoskeletal: General: No swelling, tenderness, deformity or signs of injury. Normal range of motion. Cervical back: Normal range of motion and neck supple. No rigidity. Right lower leg: No edema. Left lower leg: No edema. Lymphadenopathy: Cervical: No cervical adenopathy. Skin: General: Skin is warm and dry. Capillary Refill: Capillary refill takes less than 2 seconds. Coloration: Skin is not jaundiced or pale. Findings: No bruising, erythema, lesion or rash. Neurological: General: No focal deficit present. Mental Status: She is alert and oriented to person, place, and time. Cranial Nerves: No cranial nerve deficit. Sensory: No sensory deficit. Motor: No weakness. Coordination: Coordination normal. Gait: Gait normal. Psychiatric: Mood and Affect: Mood normal. Behavior: Behavior normal. Thought Content: Thought content normal. Judgment: Judgment normal. Assessment and Plan ASSESSMENT/PLAN: 1. Chest wall injury, initial encounter - ICD9: 959.11, ICD10: S29.9XXA (primary diagnosis) Occurred one week ago Diffuse TTP Healing ecchymotic area No red flags - XR CHEST 2V FRONTAL/LAT-negative for acute process. No pneumo or rib fx RICE therapy RX Prednisone RX Flexeril 2. Fall on same level from slipping, tripping or stumbling, initial encounter - ICD9: E885.9, ICD10: W01.0XXA Occurred one week ago C/O chest wall pain No red flags Nelly Doe APRN.ASSOCIATE PRINCIPAL documented in this encounter [facility] 04-21-2022 Note [facility] HISTORY & PHYSICAL NAME ACCOUNT SEX AGE ADMIT DISCHARGE PT MED. RECORD# NUMBER DATE DATE TYPE MARANDA, [id number] F 26 04/21/22 2 N[place] J [id number] ROOM: [facility] DATE OF : [birth year] DICTATING PHYSICIAN: Frank Ellis CHIEF COMPLAINT: Abdominal pain. HISTORY OF PRESENT ILLNESS: Ms. Low is as 26-year-old female who presents with a one month history of persistent diffuse generalized abdominal pain, bloating, and nonbilious emesis. Extensive workup including multiple hospitalizations and ER visits have revealed that all her laboratory evaluations and CT scans have been normal. PAST MEDICAL HISTORY: Osteogenesis imperfecta, scoliosis, and tachycardia. PAST SURGICAL HISTORY: Laparoscopic cholecystectomy. MEDICATIONS: See MAY. ALLERGIES: Bactrim. SOCIAL HISTORY: Negative x3. REVIEW OF SYSTEMS: Ten system review of systems negative. PHYSICAL EXAMINATION GENERAL APPEARANCE: In general, she is alert, oriented, and appropriate with no acute distress. VITAL SIGNS: On exam, she is afebrile. Vital signs stable, within normal limits. HEENT: Reveals blue sclerae. LUNGS: Lungs are clear to auscultation bilaterally. HEART: Regular rate and rhythm. ABDOMEN: Soft, nontender, and nondistended. EXTREMITIES: Extremities show no cyanosis, edema, or gross deformities. NEUROLOGIC: GCS of 15. Cranial nerves II-XII are grossly intact. Page 1 of 2 NAPOLEON LOW History & Physical NAPOLEON LOW :1995 IMPRESSION: This is a 26-year-old female with generalized abdominal pain and nonbilious emesis. PLAN: I discussed the risks, benefits, and alternatives of EGD and colonoscopy. All questions were answered, and she voiced understanding and agreement with the plan and procedures. Dictated By: Frank Ellis MD 04/21/22 09:59 JOB #: [id number] Transcribed By: aliya 04/21/22 10:17 Electronically signed by: E-SIGN DR. ELLIS 04/21/22 12:00 Update to H&P: [ ] No changes: I have examined the patient and reviewed the H&P and there are no changes. [ ] As previously dictated with the following changes: PHYSICIAN SIGNATURE: TIME: DATE: Page 2 of 2 CHRIS LOWRafael Nava History & Physical [facility] 03-03-2022 Hospital Discharge instructions Patient Education 03/03/2022 19:34:43 Sinus Tachycardia Sinus Tachycardia Sinus tachycardia is a kind of fast heartbeat. In sinus tachycardia, the heart beats more than 100 times a minute. Sinus tachycardia starts in a part of the heart called the sinus node. Sinus tachycardia may be harmless, or it may be a sign of a serious condition. What are the causes? This condition may be caused by: Exercise or exertion. A fever. Pain. Loss of body fluids (dehydration). Severe bleeding (hemorrhage). Anxiety and stress. Certain substances, including: ?Alcohol. ?Caffeine. ?Tobacco and nicotine products. ?Cold medicines. ?Illegal drugs. Medical conditions including: ?Heart disease. ?An infection. ?An overactive thyroid (hyperthyroidism). ?A lack of red blood cells (anemia). What are the signs or symptoms? Symptoms of this condition include: A feeling that the heart is beating quickly (palpitations). Suddenly noticing your heartbeat (cardiac awareness). Dizziness. Tiredness (fatigue). Shortness of breath. Chest pain. Nausea. Fainting. How is this diagnosed? This condition is diagnosed with: A physical exam. Other tests, such as: ?Blood tests. ?An electrocardiogram (ECG). This test measures the electrical activity of the heart. ?Ambulatory school lunch monitor. This records your heartbeats for 24 hours or more. You may be referred to a business analytics specialist (ibm bpm architect). How is this treated? Treatment for this condition depends on the cause or the underlying condition. Treatment may involve: Treating the underlying condition. Taking new medicines or changing your current medicines as told by your health care provider. Making changes to your diet or lifestyle. Follow these instructions at home: Lifestyle Do not use any products that contain nicotine or tobacco, such as cigarettes and e-cigarettes. If you need help quitting, ask your health care provider. Do not use illegal drugs, such as cocaine. Learn relaxation methods to help you when you get stressed or anxious. These include deep breathing. Avoid caffeine or other stimulants. Alcohol use Do not drink alcohol if: ?Your health care provider tells you not to drink. ?You are , may be , or are planning to become . If you drink alcohol, limit how much you have: ?0 1 drink a day for women. ?0 2 drinks a day for men. Be aware of how much alcohol is in your drink. In the [place] one drink equals one typical bottle of beer (12 oz), one-half glass of wine (5 oz), or one shot of hard liquor (1 oz). General instructions Drink enough fluids to keep your urine pale yellow. Take xzet-shq-frmkunm and prescription medicines only as told by your health care provider. Keep all follow-up visits as told by your health care provider. This is important. Contact a health care provider if you have: A fever. Vomiting or diarrhea that does not go away. Get help right away if you: Have pain in your chest, upper arms, jaw, or neck. Become weak or dizzy. Feel faint. Have palpitations that do not go away. Summary In sinus tachycardia, the heart beats more than 100 times a minute. Sinus tachycardia may be harmless, or it may be a sign of a serious condition. Treatment for this condition depends on the cause or the underlying condition. Get help right away if you have pain in your chest, upper arms, jaw, or neck. This information is not intended to replace advice given to you by your health care provider. Make sure you discuss any questions you have with your health care provider. Document Released: 04/16/2005 Document Revised: 04/28/2018 Document Reviewed: 04/28/2018 PPS Patient Education 2020 [employer]. Follow Up Care 03/02/2022 04:38:23 With:AYLIN GUERRA MD Address: [address] [facility] [place] [address]- When:1-2 days Comments:call to see is follow up is needed With:BERYL MCMILLAN DO Address: [address] [phone] When:1-2 days Comments:Follow-up as needed [facility] 03-03-2022 Note Discharge Instructions Thank you for allowing [facility] to assist you with your healthcare needs. The following is important discharge information regarding your hospital visit. Your Care Team BERYL MCMILLAN DO What to do next Follow Up Appointments Follow Up with AYLIN GUERRA MD When Within 1-2 days Why: call to see is follow up is needed Where: [address] [facility] [place] [address]- Follow Up with BERYL MCMILLAN DO When Within 1-2 days Why: Follow-up as needed Where: [address] [place] [phone] The Following Activity and Diet Have Been Ordered for You Discharge Activity - Ordered -- NO activity restrictions, 03/03/22 19:02:00 EST Discharge Diet - Ordered -- Type of Diet: Regular, 03/03/22 19:02:00 EST The Following Equipment Has Been Ordered for You No qualifying data available. The Following Treatments Have Been Ordered for You Discharge Labs No qualifying data available. Discharge Radiology No qualifying data available. Other Therapies No qualifying data available. Post Acute Orders No qualifying data available. Someone Will Contact You Regarding These Home Health Referrals No home referrals have been ordered for you. No one will call you. Allergies Bactrim Medications Please ask your primary doctor or pharmacist before taking any other medication not listed, including over the counter drugs, herbal medications, vitamins and or supplements as they may interact with your home medications. What How Much When Instructions Last Dose New APAP/ butalbital/ caffeine (APAP/ butalbital/ caffeine 325-50-40 mg oral tablet (Fioricet)) 1 tab(s) by mouth Every 8 hours as needed for Headache Duration: 7 Days Pickup at [facility] New ondansetron (Zofran 4 mg oral tablet) 1 tab(s) by mouth Every 8 hours as needed for Nausea/Vomiting Duration: 5 Days Pickup at [facility] 172 New propranolol (propranolol 60 mg oral capsule, extended release) 1 cap by mouth Once a day Duration: 30 Days Pickup at [facility] 172 Unchanged amitriptyline (amitriptyline 25 mg oral tablet) 1 tab(s) by mouth Daily at bedtime Unchanged pantoprazole (Protonix 40 mg oral enteric coated tablet) 1 tab(s) by mouth Once a day Unchanged ubrogepant (Ubrelvy 100 mg oral tablet) 1 tab(s) by mouth Once as needed for as needed for migraine headache may repeat dose in 2 hours if needed Pharmacy Information [id number]: [address] [place], [place] [phone] What How Much When Comments Stop Taking acetaminophen (Tylenol 325 mg oral tablet) 2 tab(s) by mouth Every 4 hours as needed for for pain Please take this list to your next doctor s visit. Bring all medications you take, including over the counter medications, herbals and other supplements with you to your doctor s visit. Patients and families are reminded to discard old lists and to update any records with all medication providers or retail pharmacies. Education Materials Sinus Tachycardia Sinus tachycardia is a kind of fast heartbeat. In sinus tachycardia, the heart beats more than 100 times a minute. Sinus tachycardia starts in a part of the heart called the sinus node. Sinus tachycardia may be harmless, or it may be a sign of a serious condition. What are the causes? This condition may be caused by: Exercise or exertion. A fever. Pain. Loss of body fluids (dehydration). Severe bleeding (hemorrhage). Anxiety and stress. Certain substances, including: ? Alcohol. ? Caffeine. ? Tobacco and nicotine products. ? Cold medicines. ? Illegal drugs. Medical conditions including: ? Heart disease. ? An infection. ? An overactive thyroid (hyperthyroidism). ? A lack of red blood cells (anemia). What are the signs or symptoms? Symptoms of this condition include: A feeling that the heart is beating quickly (palpitations). Suddenly noticing your heartbeat (cardiac awareness). Dizziness. Tiredness (fatigue). Shortness of breath. Chest pain. Nausea. Fainting. How is this diagnosed? This condition is diagnosed with: A physical exam. Other tests, such as: ? Blood tests. ? An electrocardiogram (ECG). This test measures the electrical activity of the heart. ? Ambulatory school lunch monitor. This records your heartbeats for 24 hours or more. You may be referred to a business analytics specialist (ibm bpm architect). How is this treated? Treatment for this condition depends on the cause or the underlying condition. Treatment may involve: Treating the underlying condition. Taking new medicines or changing your current medicines as told by your health care provider. Making changes to your diet or lifestyle. Follow these instructions at home: Lifestyle Do not use any products that contain nicotine or tobacco, such as cigarettes and e-cigarettes. If you need help quitting, ask your health care provider. Do not use illegal drugs, such as cocaine. Learn relaxation methods to help you when you get stressed or anxious. These include deep breathing. Avoid caffeine or other stimulants. Alcohol use Do not drink alcohol if: ? Your health care provider tells you not to drink. ? You are , may be , or are planning to become . If you drink alcohol, limit how much you have: ? 0 1 drink a day for women. ? 0 2 drinks a day for men. Be aware of how much alcohol is in your drink. In the [place] one drink equals one typical bottle of beer (12 oz), one-half glass of wine (5 oz), or one shot of hard liquor (1 oz). General instructions Drink enough fluids to keep your urine pale yellow. Take cvdn-bvl-tqsdukf and prescription medicines only as told by your health care provider. Keep all follow-up visits as told by your health care provider. This is important. Contact a health care provider if you have: A fever. Vomiting or diarrhea that does not go away. Get help right away if you: Have pain in your chest, upper arms, jaw, or neck. Become weak or dizzy. Feel faint. Have palpitations that do not go away. Summary In sinus tachycardia, the heart beats more than 100 times a minute. Sinus tachycardia may be harmless, or it may be a sign of a serious condition. Treatment for this condition depends on the cause or the underlying condition. Get help right away if you have pain in your chest, upper arms, jaw, or neck. This information is not intended to replace advice given to you by your health care provider. Make sure you discuss any questions you have with your health care provider. Document Released: 04/16/2005 Document Revised: 04/28/2018 Document Reviewed: 04/28/2018 [employer] Patient Education 2020 [employer] Additional Information VACCINATE! IT SAVES LIVES! Members of the community who have not yet received the COVID-19 vaccine and would like to receive it can visit one of [facility] vaccine clinics. There are many vaccine clinic locations within the [facility]. For locations and available times, please visit [email or web address] hio.gov/. It is important to note that some COVID mobile vaccine clinics are held outdoors and may be canceled in rainy or stormy conditions. To learn more about pediatric vaccinations (ages 5-11), we invite you to visit the [facility] webpage. [email or web address]/p [email or web address]-Yukvs-[email or web address]-Freq uwtylw-Abnms-Coyispljf.html To learn more about the COVID-19 vaccine, we invite you to visit the [facility] website for a list of frequently asked questions. [email or web address]-[email or web address]-[email or web address]-O requently_[email or web address]-Questions.pdf [facility] [employer] Patient Portal Access Instructions: Stay connected with your healthcare team and access your personal medical information anytime with the [facility] Patient Portal.If you would like a full copy of your medical records, please contact the [facility] Medical Records Department, Thursday through Thursday between 8a.m. and 4:30p.m. Please follow the directions below to access the portal: 1.Access the email account you provided upon registration to the hospital.2.Look for an invitation email from [facility].3.Open the email and access the invitation link: Accept Invitation to [facility]4.Fill in the required bell to create your account. Sign into [email or web address].[email or web address] with your username and password that you created in the above steps to stay up to date. You can then view a summary of results, a summary of your visits, and the ability to download your summaries to your computer or send the information securely to a physician. Remember that your healthcare information is confidential, so carefully consider who you will allow to register on the [facility] Patient Portal for access to your information. You can also access the [facility] Patient Portal on the [employer] radha. Simply click on Health Records under Health Data and then click on the [facility] logo. HOW TO SAFELY DISPOSE OF PRESCRIPTION MEDICATIONS Please use one of the following methods to safely dispose of your unused medications. 1.Use a drug disposal kit: the drug disposal pouch allows you to safely discard your old and unused drugs. Ask your nurse to give you one when you are discharged.2.Visit a local take-back location: Many local pharmacies and police departments have programs that collect old and unwanted prescription drugs. Call your local pharmacy or go to http://[employer].prettysecrets/6G3Px0e to find one close to you.3.Make use of household items: Use cat litter or old coffee grounds to dispose medications if other options are not available. Mix your drugs with these household products, seal them in an airtight container and throw it into the garbage. Call [facility]: [phone] to be sure your drugs can be disposed of in this way. Some medicines may require a different approach.4.Never flush your medications down the toilet. IF YOU HAVE BEEN PRESCRIBED AN OPIOID FOR PAIN If you have been prescribed an opioid (such as hydrocodone, oxycodone or morphine), it is critical to understand the possible side effects and risks of opioid pain medications. Even when taken as directed, opioids can have several side effects including: Tolerance, meaning you might need to take more of a medication for the same pain relief. Nausea, vomiting and/or constipation. Sleepiness, dizziness, dry mouth, confusion, depression or itching. Physical dependence, meaning you have withdrawal symptoms when a medication is stopped, can develop within a few days. KNOW YOUR RESPONSIBILITIES It is important to know exactly how much and how often to take the opioid pain medications you are prescribed. Never take opioids in higher amounts or more often than prescribed. Do not combine opioids with alcohol or other drugs that cause drowsiness, such as benzodiazepines, also known as benzos, including diazepam and alprazolam, muscle relaxants or sleep aids. Never sell or share prescription opioids. This is illegal. Store opioids in a secure place and out of reach of others (including children, family, friends and visitors). The last page of this document has been signed and retained as a CHART COPY. Signatures Patient Education Materials Sinus Tachycardia Medication Leaflets My discharge plan and instructions have been reviewed and explained to me and I,NAPOLEON LOW understand my current condition and have read and understand these discharge instructions. I have received a written copy of the plan/instructions. If I have questions, I am aware that I should contact my doctor. 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 Signature: Date/Time: Relationship to Patient: Witness Name/Signature: Date/Time: [facility] 03-03-2022 Discharge summary Date of Service 03/03/2022 Discharge Diagnosis Migraine, unspecified, not intractable, without status migrainosus (G43.909 - ICD-10-CM) Osteogenesis imperfecta (Q78.0 - ICD-10-CM) Tachycardia, unspecified (R00.0 - ICD-10-CM) Scoliosis, unspecified (M41.9 - ICD-10-CM) Vomiting, unspecified (R11.10 - ICD-10-CM) Additional Orders: Ordered: APAP/butalbital/caffeine 325-50-40 mg oral tablet (Fioricet),Dose = 1 tab(s), Oral, q8h, PRN Headache, X 7 day(s), # 5 tab(s), 0 Refill(s), Pharmacy: [facility], 149.9, cm, 03/02/22 4:46:00 EST, Height Discontinued: Admit to Inpatient,03/02/22 4:56:00 EST, Fair, Admit: TERRENCE ODONNELL MD, Level of Care: Stepdown with monitor, Reason for Admission: See History & Physical, Expected Length of Stay: More Than Two Midnights, Persistent tachycardia, I certify that hospital inpatient servic... Ordered: Assign to Observation status,03/03/22 13:37:00 EST, Admit: THERESA WISE MD, Level of Care: Stepdown with monitor, Reason for Admission: See History & Physical, I certify that hospital services are medically necessary. At this time I do not anticipate a two midnight stay., C... Ordered: Discharge,03/03/22 19:02:00 EST, Discharged to: Home Ordered: Discharge Activity,NO activity restrictions, 03/03/22 19:02:00 EST Ordered: Discharge Diet,Type of Diet: Regular, 03/03/22 19:02:00 EST Discontinued: Tylenol 325 mg oral tablet,Dose : 650 mg = 2 tab(s), Oral, q4hr, PRN for pain, 0 Refill(s) Other status: Urine Test POC,03/02/22 17:46:00 EST, now, Stop Date 03/02/22 17:46:00 EST(Complete) Ordered: Zofran 4 mg oral tablet,Dose : 4 mg = 1 tab(s), Oral, q8h, PRN Nausea/Vomiting, X 5 day(s), # 15 cap(s), 0 Refill(s), 03/08/22 19:03:00 EST, Pharmacy: [facility], 149.9, cm, 03/02/22 4:46:00 EST, Height Ordered: propranolol 60 mg oral capsule, extended release,Dose : 60 mg = 1 cap(s), Oral, qDay, # 30 cap(s), 0 Refill(s), Pharmacy: [facility], 149.9, cm, 03/02/22 4:46:00 EST, Height Hospital Course 26-year-old with past medical history significant for osteogenesis imperfect scoliosis, history of migraine presented with complaints of tachycardia. Patient was noted to be in the 120s to 140s in the emergency room when she was transferred over for further evaluation. Patient had initially presented to the emergency room AVEL, nausea vomiting. Patient was given Zofran given Ativan pain control however continued to have episodes of emesis. She was subsequently sent over because of the increased heart rate. Patient was given aggressive IV fluids while she was here she was also given Fioricet along with Tigan. Patient was also put on propanolol. Patient has since then continued to improve heart rate is in the lower 80s. She was seen by cardiology 2D echocardiogram was done and results are pending at this time. Patient otherwise is appears to be doing better migraine is is much improved. Patient has no other visual problems chest pain palpitations. Overall patient is medically stable and will be discharged home. She will resume her amitriptyline gave a prescription for propanolol which she can take and an additional diet and give her Zofran and 5 Fioricet if needed. Overall she is stable for discharge. Allergies Bactrim Consults Consult to Physician - Ordered -- 03/02/22 4:58:00 BRAD, LESVIA AMOS MD, Routine, Persistent Tachycardia Physical Exam Vitals and Measurements T: 36.3 C (Oral) TMIN: 36.3 C (Oral) TMAX: 36.9 C (Oral) HR: 92(Monitored) RR: 18 BP: 114/86 SpO2: 99% Weight Dosing Weight: 53.8 kg (03/02/22) General Appearance: no acute distress, Head: atraumatic, perrrla, EENT:moist mucosa,, normal pharynx, normal tonsils and adenoids and tongue Neck:trachea midline, no carotid bruit, no mass or lymphadenopathy. Cardiac: RRR, no murmurs, normal S1 and S2 Lungs: Normal chest wall expansion, clear to auscultation Abdomen: Soft nontender nondistended, normal bowel sounds all quadrants, no hepatomegaly, guarding Genitourinary: No inguinal hernia, Musculoskeletal:Range of Motion intact in all extremities, strength intact, scoliosis Extremities: No edema, Neurological:Awake alert oriented x3, cranial nerves II through XII intact, DTR intact, sensory function intact, Skin: Warm dry, pink, no rash, purpura, petechia Psychiatric: Normal affect, intact cognition, Code Status Code Status - Ordered -- 03/02/22 4:56:00 EST, Full Code, Constant Order Admission Date 03/02/2022 Discharge Date 03/03/2022 Medications New Prescription APAP/butalbital/caffeine (APAP/butalbital/caffeine 325-50-40 mg oral tablet (Fioricet))1 tab(s) by mouth every 8 hours as needed Headache for 7 Days. Refills: 0. ondansetron (Zofran 4 mg oral tablet)1 tab(s) by mouth every 8 hours as needed Nausea/Vomiting for 5 Days. Refills: 0. propranolol (propranolol 60 mg oral capsule, extended release)1 cap by mouth once a day for 30 Days. Refills: 0. Unchanged amitriptyline (amitriptyline 25 mg oral tablet)1 tab(s) by mouth daily at bedtime. pantoprazole (Protonix 40 mg oral enteric coated tablet)1 tab(s) by mouth once a day. ubrogepant (Ubrelvy 100 mg oral tablet)1 tab(s) by mouth once as needed as needed for migraine headache. may repeat dose in 2 hours if needed. Discontinued acetaminophen (Tylenol 325 mg oral tablet)2 tab(s) by mouth every 4 hours as needed for pain. Follow Up Appointments No qualifying data available. Follow Up Labs/Studies Discharge Labs No Follow-up Labs Discharge Studies No Follow-up Studies Discharge Diet Discharge Diet - Ordered -- Type of Diet: Regular, 03/03/22 19:02:00 EST Discharge Activity Discharge Activity - Ordered -- NO activity restrictions, 03/03/22 19:02:00 EST Condition on Discharge stable, improved tolerated diet Discharge Disposition home Time Spent 35 min Digitally Signed by THERESA WISE MD on 03/03/2022 07:12 PM [facility] 03-03-2022 Note Date of Service 03/03/2022 Chief Complaint headache, tachycardia Subjective Patient seen and examined. Discussed with staff. Patient continues to have a bit of a headache. Heart rate has now come down to the 80s to 90s. Patient denies any abdominal pain appetite is still very poor. Patient denies any fever chills chest pain palpitations. Objective Vitals and Measurements T: 36.3 C (Oral) TMIN: 36.3 C (Oral) TMAX: 36.9 C (Oral) HR: 92(Monitored) RR: 18 BP: 114/86 SpO2: 99% General Appearance: no acute distress, Head: atraumatic, perrrla, EENT:moist mucosa,, normal pharynx, normal tonsils and adenoids and tongue Neck:trachea midline, no carotid bruit, no mass or lymphadenopathy. Cardiac: RRR, no murmurs, normal S1 and S2 Lungs: Normal chest wall expansion, clear to auscultation Abdomen: Soft nontender nondistended, normal bowel sounds all quadrants, no hepatomegaly, guarding Genitourinary: No inguinal hernia, Musculoskeletal:Range of Motion intact in all extremities, strength intact, gait normal Extremities: No edema, Neurological:Awake alert oriented x3, cranial nerves II through XII intact, DTR intact, sensory function intact, Skin: Warm dry, pink, no rash, purpura, petechia Psychiatric: Normal affect, intact cognition, Intake and Output 7AM Yesterday to 7AM Today Intake and Output (Last 24 hours) Intake Administration Information 1600.00 Oral Intake 300.00 Output Stool Count 3.00 Urine Count 8.00 Emesis Count 2.00 Total Summary Total Intake 1900.00 Total Output 0.00 Fluid Balance 1900.00 Physical Exam Weight Dosing Weight: 53.8 kg (03/02/22) Medications Medications (8) Active Scheduled: (3) heparin 5,000 units/mL (1 mL) vial 5,000 unit(s) 1 mL, Subcutaneous, q8h pantoprazole 40 mg EC tablet 40 mg 1 tab(s), Oral, qDay propranolol 60 mg ER capsule 60 mg 1 cap(s), Oral, qDay Continuous: (1) NS (0.9% nacl) 1,000 mL 1,000 mL, Intravenous, 100 mL/hr PRN: (4) APAP/butalbital/caffeine (FioriCET) 325 mg-50 mg-40 mg Tablet 1 tab(s), Oral, q4h melatonin 3 mg tablet 3 mg 1 tab(s), Oral, qHS ondansetron 2 mg/ 1 mL 2 mL INJ 4 mg 2 mL, IV Push, q6h Ubrelvy 100 mg oral tablet 100 mg 1 tab(s), Oral, Once Lab Results No 36 Hour Lab Data EKG EKG - Completed -- 03/02/22 4:58:00 EST Assessment/Plan Orders: Assign to Observation status Assessment and plan 1:Acute migraine attack: failed ubrelvy at home, in addition that she has persistent emesis. She was given 1 dose of lopressor and put on propanolol and also add Fioricet for the caffeine. Will advance diet. 2: Sinus Tachycardia: may be related to migraine attack , is currently on fluids, patient to be given IV Lopressor and switched to propranolol both for migraine prevention and also tachyxardia. Advised to avoid caffiene. Seen by cardiology, awaiting 2 d echo. . 3: persistent emesis: did well on tigan, and failed Zofran as well as Compazine. 4: osteogenesis imperfecta: continue with supportive care including brace. 5: Scoliosis 6: DVT prophylaxis heparin Time Spent 35 min Digitally Signed by THERESA WISE MD on 03/03/2022 06:46 PM [facility] 03-03-2022 Cardiology Consult note Date of Service 03/03/2022 Reason for Consultation Persistent tachycardia Referring Physician Dr. Odonnell History of Present Illness This is a 26-year-old Macedonian-speaking female with PMH significant for osteogenesis imperfecta, migraine headaches, scoliosis. She presented to [facility] with chief concern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 RECORDS PERTAINING TO PATIENTS WHO ARE OR HAVE BEEN ENROLLED IN A CHEMICAL DEPENDENCY/SUBSTANCEABUSE PROGRAM, SOME INFORMATION MAY BE OMITTED. This clinical summary was aggregated from multiple sources. Caution should be exercised in using it in the provision of clinical care. This summary normalizes information from multiple sources, and as a consequence, information in this document may materially change the coding, format and clinical context of patient data. In addition, data may be omitted in some cases. CLINICAL DECISIONS SHOULD BE BASED ON THE PRIMARY CLINICAL RECORDS. [facility] [employer] [facility]. provides no warranty or guarantee of the accuracy or completeness of information in this document.
[2023-03-19 12:56] LABS: Absolute Lymphocyte Count 1.65 X10^3/uL (0.83-4.51); Basophil# 0.04 X10^3/uL; Basophil% 0.4 % (0-1); Eosinophil# 0.15 X10^3/uL; Eosinophils% 1.6 % (0-5); Hematocrit 38.5 % (37-47); Hemoglobin 12.7 g/dL (12.0-15.0); Lymphocyte # 1.65 X10^3/ul (0.83-4.51); Lymphocyte % 17.3 % (19-41); Mean Corpuscular Volume 87.9 fL (81-99); Monocyte# 0.63 X10^3/uL; Monocyte% 6.6 % (0-10); NRBC Flagged by Analyzer 0 % (0-5); Neutrophil # 7.02 X10^3/uL (2.7-7.7); Neutrophil % 73.6 % (47-70); Platelet Count 320 K/mm3 (150-450); RBC Distribution Width CV 13.4 % (11.6-14.6); RBC Distribution Width SD 43.3 fl (35.1-43.9); Red Blood Count 4.38 M/mm3 (4.2-5.4); White Blood Count 9.5 K/mm3 (4.4-11.0)
[2023-03-19 13:31] LABS: ALB/GLOB Ratio 0.9 RATIO (0.9-2.4); AST(SGOT) 12 U/L (15-37); Alanine Aminotransfer ALT/SGPT 30 U/L (13-56); Albumin, Serum 3.5 g/dL (3.2-5.0); Alkaline Phosphatase 112 U/L (45-117); Anion Gap 7 (5-15); BUN 12 mg/dL (7-18); BUN/Creat Ratio 20.7 RATIO (10-20); Calcium,Total 8.7 mg/dL (8.5-10.1); Chloride 104 mmol/L (98-107); Creatinine, Serum 0.58 mg/dL (0.55-1.02); EST Glomerular Filtration Rate 133 mL/min (>60); Est Glom Filt Rate - Afr Amer 160 mL/min (>60); Glucose 79 mg/dL (74-106); Potassium 3.6 mmol/L (3.5-5.1); Protein, Total 7.5 g/dL (6.4-8.2); Sodium Level 135 mmol/L (136-145); T4 Free Direct 0.74 ng/dL (0.76-1.46); Thyroid Stim Hormone (TSH) 1.89 uIU/mL (0.358-3.74)
[2023-03-19 13:52] LABS: NATERA MAILED SPECIMEN
[2023-03-19 13:59] LABS: HIV - WCH Non-Reactive (Nonreactive); Hepatitis B Surface Antigen Non-Reactive (Nonreactive); Hepatitis C Antibody Non-Reactive (Nonreactive); Rubella IgG Reactive (Nonreactive); Syphilis Antibodies Non-reactive
== END | disposition home or self-care (01) ==
LOC: PAVLAB 12:29
PROVIDERS: PCP Nurse Practitioner Family; Referring Provider Obstetrics & Gynecology; Visit Provider Obstetrics & Gynecology
DX: Z34.90 Encounter for supervision of normal pregnancy, unspecified, unspecified trimester (principal); E03.9 Hypothyroidism, unspecified
CPT/HCPCS: 36415; 80053; 84439; 84443; 85025; 86703; 86762; 86780; 86803; 86850; 86900; 86901; 87340

== ENCOUNTER → 2023-04-02 | Outpatient (CLI) | payer MEDICAID, SELFPAY ==
--- OUTSIDE RECORDS SUMMARY | 2023-04-02 17:21 | XMS RPT_ITS | CCD ---
Author Name Unknown Address [address] [place] [address] Organization [facility] Care Team Providers Care Stone Repairer Name Role Phone АННА GOLDSTEIN Unavailable Unavailable LETITIA FORD Unavailable Unavailable АННА GOLDSTEIN Unavailable Unavailable GIOVANI JOLLEY Unavailable Unavailable BERYL MCMILLAN DO Primary Care Physician Beryl Mcmillan DO Primary Care Provider BERYL MCMILLAN Primary Care Unavailable NELLY DOE Referring Unavailable BERYL MCMILLAN Primary Care Unavailable Lenka Marks DO Primary Care Provider JESSA NOEL Attending Unavailable LENKA MARKS Primary Care Unavailable FRANK ELLIS Attending Unavailable FRANK ELLIS Admitting Unavailable BERYL MCMILLAN DO Consulting Unavailable FRANK ELLIS Primary Care Unavailable PROVIDER, UNKNOWN Consulting Unavailable PROVIDER, UNKNOWN Consulting Unavailable UNGERER, NELLY CONSTRUCTION MANAGER Attending Unavailable UNGERER, NELLY CONSTRUCTION MANAGER Admitting Unavailable UNGERER, NELLY CONSTRUCTION MANAGER Primary Care Unavailable UNGERER, NELLY CONSTRUCTION MANAGER Consulting Unavailable PROVIDER, UNKNOWN Consulting Unavailable UNGERER, NELLY CONSTRUCTION MANAGER Attending Unavailable UNGERER, NELLY CONSTRUCTION MANAGER Admitting Unavailable UNGERER, NELLY CONSTRUCTION MANAGER Primary Care Unavailable UNGERER, NELLY CONSTRUCTION MANAGER Consulting Unavailable KARLOS CORREIA MD Referring Unavailab le PROVIDER, UNKNOWN Consulting Unavailable UNGERER, NELLY CONSTRUCTION MANAGER Attending Unavailable UNGERER, NELLY CONSTRUCTION MANAGER Admitting Unavailable UNGERER, NELLY CONSTRUCTION MANAGER Primary Care Unavailable BERYL MCMILLAN DO Consulting Unavailable PROVIDER, UNKNOWN Consulting Unavailable PROVIDER, UNKNOWN Consulting Unavailable UNGERER, NELLY CONSTRUCTION MANAGER Attending Unavailable UNGERER, NELLY CONSTRUCTION MANAGER Admitting Unavailable UNGERER, NELLY CONSTRUCTION MANAGER Primary Care Unavailable BERYL MCMILLAN DO Consulting Unavailable PROVIDER, UNKNOWN Consulting Unavailable PROVIDER, UNKNOWN Consulting Unavailable UNGERER, NELLY CONSTRUCTION MANAGER Attending Unavailable UNGERER, NELLY CONSTRUCTION MANAGER Admitting Unavailable UNGERER, NELLY CONSTRUCTION MANAGER Primary Care Unavailable BERYL MCMILLAN DO Consulting [...] Unavailable PROVIDER, UNKNOWN Consulting Unavailable UNGERER, NELLY CONSTRUCTION MANAGER Referring Unavailable CONCEPCION, BRIGHT C Primary Care Unavailable CONCEPCION, BRIGHT C Attending Unavailable UNGERER, NELLY CONSTRUCTION MANAGER Consulting Unavailable CONCEPCION, BRIGHT C Admitting Unavailable [...] UNKNOWN Consulting Unavailable PROVIDER, UNKNOWN Consulting Unavailable KARLOS CORREIA Referring UnavailSUDEEP Burton Attending Unavailable NELLY SMITH Primary Care Unavailable Allergies Allergy Classification Reported Allergen(s) Allergy Type Date of Onset Reaction(s) Facility (4 sources) Sulfamethoxazole / Trimethoprim; Translations: [sulfamethoxazole-t rimethoprim] Drug Allergy 07-01-19 Rash, Hives, Itching [facility] (2 sources) Sulfamethoxazole / Trimethoprim; Translations: [SULFAMETHOXAZOLE-T RIMETHOPRIM] Drug Allergy 07-01-19 [facility] Repository (2 sources) Sulfamethoxazole Allergy to substance 07-04-19 [facility] (2 sources) Trimethoprim Drug Allergy 09-06-19 [facility] (1 source) Sulfamethoxazole / Trimethoprim Drug Allergy [facility] Repository (1 source) Seasonal allergy; Translations: [SEASONAL ALLERGIES] Propensity to adverse reactions (disorder) 03-30-19 [facility] Repository Medications Current Medications Medication Drug Class(es) [...] day(s), # 5 tab(s), 0 Refill(s), Pharmacy: [id number], 149.9, cm, 03/02/22 4:46:00 EST, Height Start Date: 03/03/22 Stop Date: 03/10/22 Status: Ordered amitriptyline hydrochloride 10 mg oral tablet (3 sources) Tricyclic Antidepressant Start: 06-27-2023 amitriptyline (Elavil) 10 MG tablet TAKE 2 [...] status to other antibiotic agents status] Onset: 07-27-2022 Episodic Gastritis and duodenitis (1 source) Gastritis, [...] Time Vital Sign Value Performing Clinician Ming carranza 01-27-2023 09:27-0500 Body mass index (BMI) [Ratio] 26.05 kg/m2 Jessa Noel MD Work Phone: [facility] 01-27-2023 09:27-0500 Body weight 58.51 kg Jessa Noel MD Work Phone: [facility] 01-27-2023 09:27-0500 Diastolic blood pressure 70 mm[Hg] Jessa Noel MD Work Phone: [facility] 01-27-2023 09:27-0500 Heart rate 89 /min Jessa Noel MD Work Phone: [facility] 01-27-2023 09:27-0500 Systolic blood pressure 113 mm[Hg] Jessa Noel MD Work Phone: [facility] 07-12-2022 09:02-0400 Body weight 60.33 kg Nelly Doe INVENTORY SPECIALIST MANAGER.GENERAL SURGERY PHYSICIAN ASSISTANT Work Phone: [facility] 07-12-2022 09:02-0400 Diastolic blood pressure 70 mm[Hg] Nelly Doe INVENTORY SPECIALIST MANAGER.GENERAL SURGERY PHYSICIAN ASSISTANT Work Phone: [facility] 07-12-2022 09:02-0400 Heart rate 97 /min Nelly Doe INVENTORY SPECIALIST MANAGER.GENERAL SURGERY PHYSICIAN ASSISTANT Work Phone: [facility] 07-12-2022 09:02-0400 Respiratory rate 16 /min Nelly Doe INVENTORY SPECIALIST MANAGER.GENERAL SURGERY PHYSICIAN ASSISTANT Work Phone: [facility] 07-12-2022 09:02-0400 SaO2% (BldA) [Mass fraction] 98 % Nelly Doe INVENTORY SPECIALIST MANAGER.GENERAL SURGERY PHYSICIAN ASSISTANT Work Phone: [facility] 07-12-2022 09:02-0400 Systolic blood pressure 110 mm[Hg] Nelly Doe INVENTORY SPECIALIST MANAGER.GENERAL SURGERY PHYSICIAN ASSISTANT Work Phone: [facility] 03-03-2022 19:13-0500 Blood Pressure Cuff Size TERRENCE ODONNELL MD [facility] 03-03-2022 19:13-0500 Blood Pressure Location TERRENCE ODONNELL MD [facility] 03-03-2022 19:13-0500 Blood Pressure Method TERRENCE ODONNELL MD [facility] 03-03-2022 19:13-0500 Body temperature 98.06 [degF] TERRENCE ODONNELL MD [facility] 03-03-2022 19:13-0500 Diastolic Blood Pressure Non-Invasive 87 1 TERRENCE ODONNELL MD [facility] 03-03-2022 19:13-0500 Heart rate 88 /min TERRENCE ODONNELL MD [facility] 03-03-2022 19:13-0500 Reason For Taking VItal Signs TERRENCE ODONNELL MD [facility] 03-03-2022 19:13-0500 Respiratory rate 18 /min TERRENCE ODONNELL MD [facility] 03-03-2022 19:13-0500 Systolic Blood Pressure Non-Invasive 118 1 TERRENCE ODONNELL MD [address] [place] [address] 03-03-2022 16:39-0500 Blood Pressure Location TERRENCE ODONNELL MD [address] [place] [address] 03-03-2022 16:39-0500 Blood Pressure Method TERRENCE ODONNELL MD [address] [place] [address] 03-03-2022 16:39-0500 Body temperature 97.34 [degF] TERRENCE ODONNELL MD [address] [place] [address] 03-03-2022 16:39-0500 Diastolic Blood Pressure Non-Invasive 86 1 TERRENCE ODONNELL MD [address] [place] [address] 03-03-2022 16:39-0500 Heart rate 92 /min TERRENCE ODONNELL MD [address] [place] [address] 03-03-2022 16:39-0500 Mean blood pressure 95 mm[Hg] TERRENCE ODONNELL MD [address] [place] [address] 03-03-2022 16:39-0500 Reason For Taking VItal Signs TERRENCE ODONNELL MD [facility] 03-03-2022 16:39-0500 Respiratory rate 18 /min TERRENCE ODONNELL MD [address] [place] [address] 03-03-2022 16:39-0500 Systolic Blood Pressure Non-Invasive 114 1 TERRENCE ODONNELL MD [address] [place] [address] 03-03-2022 11:44-0500 Blood Pressure Location TERRENCE ODONNELL MD [address] [place] [address] 03-03-2022 11:44-0500 Blood Pressure Method TERRENCE ODONNELL MD [facility] 03-03-2022 11:44-0500 Body temperature 97.52 [degF] TERRENCE ODONNELL MD [facility] 03-03-2022 11:44-0500 Diastolic Blood Pressure Non-Invasive 77 1 TERRENCE ODONNELL MD [address] [place] [address] 03-03-2022 11:44-0500 Heart rate 86 /min TERRENCE ODONNELL MD [address] [place] [address] 03-03-2022 11:44-0500 Mean blood pressure 88 mm[Hg] TERRENCE ODONNELL MD [address] [place] [address] 03-03-2022 11:44-0500 Reason For Taking VItal Signs TERRENCE ODONNELL MD [address] [place] [address] 03-03-2022 11:44-0500 Respiratory rate 18 /min TERRENCE ODONNELL MD [address] [place] [address] 03-03-2022 11:44-0500 Systolic Blood Pressure Non-Invasive 109 1 TERRENCE ODONNELL MD [address] [place] [address] 03-03-2022 08:57-0500 Heart rate 89 /min TERRENCE ODONNELL MD [address] [place] [address] 03-03-2022 04:29-0500 Heart rate 82 /min TERRENCE ODONNELL MD [address] [place] [address] 03-03-2022 00:15-0500 Heart rate 84 /min TERRENCE ODONNELL MD [address] [place] [address] 03-02-2022 19:32-0500 Heart rate 98 /min TERRENCE ODONNELL MD [address] [place] [address] 03-02-2022 13:30-0500 Heart rate 111 /min TERRENCE ODONNELL MD [address] [place] [address] 03-02-2022 08:49-0500 Heart rate 118 /min TERRENCE ODONNELL MD [facility] 03-02-2022 04:30-0500 Body height 149.9 cm TERRENCE ODONNELL MD [facility] 03-02-2022 04:30-0500 Body weight 53.8 kg TERRENCE ODONNELL MD [facility] 03-02-2022 04:30-0500 Body weight 23.94 kg/m2 TERRENCE ODONNELL MD [facility] Encounters Encounter Date Encounter Type Care Provider Facility Start: 03-30-2023 End: 03-30-2023 ambulatory [facility] Start: 03-16-2023 End: 03-16-2023 Emergency department patient visit BRIGHT CONCEPCION [facility] Start: 03-05-2023 End: 03-05-2023 ambulatory [facility] Start: 02-24-2023 End: 02-24-2023 Emergency department patient visit NELLY SHERIDAN [facility] Start: 02-19-2023 End: 02-19-2023 ambulatory NELLY CONSTRUCTION MANAGER [facility] Start: 01-27-2023 End: 01-27-2023 ambulatory JESSA NOEL [facility] Start: 01-27-2023 End: 01-27-2023 Office outpatient visit 15 minutes Jessa Noel MD Work Phone: [facility] Pel[facility] Procedures Date Procedure Procedure Detail Performing Clinician Start: 02-24-2023 Urinalysis FRANK ADKINS Plan of Treatment Date Care Activity Detail Author Start: 2056 RSV Immunization aged 60 or older (1 - 1-dose 60+ series) RSV Immunization aged 60 or older (1 - 1-dose 60+ series) [facility] Start: 2046 Zoster Vaccines (1 of 2) Zoster Vaccines (1 of 2) [facility] Start: 12-14-2028 DTaP/Tdap/Td Vaccines (9 - Td or Tdap) DTaP/Tdap/Td Vaccines (9 - Td or Tdap) [facility] Start: 11-21-2022 COVID-19 Vaccine ( season) COVID-19 Vaccine ( season) [facility] Start: 11-21-2022 Influenza vaccination [facility] Start: 03-23-2022 DEPRESSION ASSESSMENT DEPRESSION ASSESSMENT [facility] Start: 10-20-2020 COVID-19 VACCINE (3 - Booster for Pfizer series) COVID-19 VACCINE (3 - Booster for Pfizer series) [facility] Start: 10-20-2020 COVID-19 Vaccine (3 - Pfizer series) COVID-19 Vaccine (3 - Pfizer series) [facility] Start: 2017 PAP TESTING PAP TESTING [facility] Start: 2017 Screening for malignant neoplasm of cervix Pap Smear [facility] Start: 06-20-2015 Urine microalbumin profile DTAP,TDAP,TD (1 - Tdap) [facility] Start: 12-26-2014 Hepatitis A Vaccines (2 of 2 - 2-dose series) Hepatitis A Vaccines (2 of 2 - 2-dose series) [facility] Start: 07-24-2014 HPV Vaccines (2 - 3-dose series) HPV Vaccines (2 - 3-dose series) [facility] Start: 2014 HEPATITIS C SCREENING HEPATITIS C SCREENING [facility] Start: 2014 Hepatitis C screening Hepatitis C Screening [facility] Start: 2014 HIV SCREENING HIV SCREENING [facility] Start: 2010 PEDS TO ADULT TRANSITION ANNUAL ASSESSMENT PEDS TO ADULT TRANSITION ANNUAL ASSESSMENT [facility] Start: 2008 Depression Screening Depression Screening [facility] Start: 2008 PEDS TO ADULT TRANSITION INITIAL DISCUSSION PEDS TO ADULT TRANSITION INITIAL DISCUSSION [facility] Start: 06-20-2007 HPV VACCINE (1 - 2-dose series) HPV VACCINE (1 - 2-dose series) [facility] Start: 1996 HEPATITIS B (1 of 3 - 3-dose series) HEPATITIS B (1 of 3 - 3-dose series) [facility] Start: 1996 HIV screening HIV Screening [facility] Start: 1996 Lipid panel Lipid Panel [facility] Start: 1996 Thyroid stimulating hormone measurement TSH Level [facility] CHLAMYDIA/N.GONORRHO EAE AND T. VAGINALIS RNA, QL TMA ([facility]) Chlamydia/N.Gonorrhoeae and T. Vaginalis RNA, QL TMA ([facility]) Microbiology Routine Vulvar burning Ordered: 01/27/2023 [facility] Work Phone: Immunizations Immunization Date Immunization Notes Care Provider Fa cili 12-25-2022 influenza virus vacc ine, unspecified formulation Jessa Noel MD Work Phone: [facility] 12-31-2020 influenza virus vacc ine, unspecified formulation TERRENCE ODONNELL MD [facility] 08-25-2020 SARS-CoV-2 mRNA (tozinameran) vaccine TERRENCE ODONNELL MD [facility] 07-25-2020 SARS-CoV-2 mRNA (tozinameran) vaccine TERRENCE ODONNELL MD [facility] 03-15-2020 influenza virus vacc ine, unspecified formulation TERRENCE ODONNELL MD [facility] 04-23-2019 influenza virus vacc ine, unspecified formulation TERRENCE ODONNELL MD [facility] 12-14-2018 tetanus toxoid, redu niya diphtheria toxoid, and acellular pertussis vaccine, adsorbed TERRENCE ODONNELL MD [facility] 12-10-2018 influenza virus vacc ine, unspecified formulation TERRENCE ODONNELL MD [facility] 03-23-2017 influenza virus vacc ine, unspecified formulation TERRENCE ODONNELL MD [facility] 06-26-2014 hepatitis A vaccine, pediatric dosage, unspecified formulation TERRENCE ODONNELL MD [facility] 06-26-2014 Human Papillomavirus Quadval TERRENCE ODONNELL MD [facility] 06-26-2014 meningococcal polysaccharide (groups A, C, Y and W-135) diphtheria toxoid conjugate vaccine (MCV4P) TERRENCE ODONNELL MD [facility] 06-26-2014 varicella virus vaccine JONO ODONNELL MD [facility] 06-26-2014 hepatitis A and hepa titis B vaccine Jessa Noel MD Work Phone: [facility] 06-26-2014 HPV, unspecified formulation Jessa Noel MD Work Phone: [facility] 01-26-2013 influenza virus vacc ine, unspecified formulation TERRENCE ODONNELL MD [facility] 04-10-2010 influenza virus vacc ine, unspecified formulation TERRENCE ODONNELL MD [facility] 08-07-2009 tetanus toxoid, redu niya diphtheria toxoid, and acellular pertussis vaccine, adsorbed TERRENCE ODONNELL MD [facility] 02-20-2003 influenza virus vacc ine, unspecified formulation TERRENCE ODONNELL MD [facility] 11-01-2002 measles/mumps/rubell a virus vaccine TERRENCE ODONNELL MD [facility] 11-01-2002 poliovirus vaccine, inactivated TERRENCE ODONNELL MD [facility] 12-18-1997 haemophilus influenz ae type b vaccine, PRP-OMP conjugate TERRENCE ODONNELL MD [facility] 12-18-1997 varicella virus vaccine JONO ODONNELL MD [facility] 06-26-1997 measles/mumps/rubell a virus vaccine TERRENCE ODONNELL MD [facility] 02-14-1997 hepatitis B pediatri c vaccine TERRENCE ODONNELL MD [facility] 1996 hepatitis B pediatri c vaccine TERRENCE ODONNELL MD [facility] 1996 hepatitis B pediatri c vaccine TERRENCE ODONNELL MD [facility] Payers Date Payer Category Payer Medicaid [place] [employer] [place] [employer] [id number] 2023-Present [phone] [address] [facility] [place] [address] Medicaid HMO [id number] 2023 Medicaid [id number] 2018 Unknown [id number] 2018 Unknown [id number] 1996 Unknown [id number] 1996 Unknown [id number] [id number] 1996 Unknown [id number] [id number] 1996 Unknown [id number] [id number] 1996 Unknown [id number] [id number] 1996 Unknown [id number] [id number] 1996 Unknown [id number] [id number] 1996 Unknown [id number] [id number] 1996 Unknown [id number] [id number] 1996 Unknown [id number] [id number] 1996 Unknown [id number] [id number] 1996 Unknown [id number] [id number] 1996 Unknown [id number] [id number] 1996 Unknown [id number] [id number] 1996 Unknown [id number] [id number] 1996 Unknown [id number] 1996 Unknown [id number] [id number] Unknown [id number] Social History Date Type Detail Facility [facility]: [facility]19-[facility] Start: 12-19-2017 Tobacco use and exposure Smoke less tobacco non-user [facility] Start: 05-17-2021 End: 03-11-2022 Alcohol intake Lifetime non-drinker (finding) [facility] Start: 06-05-2020 History SDOH Alcohol Frequency 1 [facility] Start: 1996 Sex Assigned At Female C [facility] Start: 03-11-2022 History of Social function [facility] Start: 03-11-2022 Tobacco use panel [facility] Start: 01-09-2022 Gender identity Identifies as female gender (finding) [facility] Start: 01-09-2022 Sexual orientation Heterosexual (fin carline) [facility] Functional Status Date Assessment Result Facility 03-03-2022 Functional Status Single level home [facility] 03-03-2022 Functional Status [facility] 03-03-2022 Functional Status [facility] 03-03-2022 Functional Status Breakfast Percent 75 [facility] 03-03-2022 Functional Status Shampoo/Body wash (no r inse) [facility] 03-02-2022 Functional Status Hospital bed [facility] 03-02-2022 Functional Status [facility] 03-02-2022 Functional Status [facility] 03-02-2022 Functional Status Sensory Deficits None A [facility] Mental Status Date Assessment Result Facility 03-03-2022 Mental Status Oriented x 4 [facility] 03-02-2022 Mental Status [facility] 03-02-2022 Mental Status [facility] Clinical Notes 03-02-2022 to [...] Locations *1: This test was performed at: [facility], [address] [place] [address], [id number] , [facility] ([place]) 01-27-2023 History of Present illness Narrative CC: Chief Complaint Patient presents with Vaginal Pain HPI: 27 y.o. No obstetric history on file. Here with vestibular burning Started 2 weeks ago. She first went to urgent care, given Rx fluconazole. 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 Coli- Rx Augmentin. [...] nourished, no acute distress RESP: normal effort HEADING MACHINE OPERATOR: EXTERNAL: Groin: normal skin color and texture [...] also use vaseline. documented in this encounter [facility] 01-22-2023 Telephone encounter Note S: Patient spoke [...] Dr. Noel in the past. Lives in [place] so would like appointment in closest office if possible. R: Patient declined sooner appointment this week due to scheduling conflicts and location. Called the Pelvic Health clinic at [facility] and spoke with Donna. AWAD to schedule patient in new patient slot at 9:30 and change to office visit. Address of office verified. Patient understands care advice. No further needs at this time. Patient instructed to call back with new or worsening symptoms. Reason for Disposition Patient wants to be seen Protocols used: Vaginal [id number] [facility] 01-22-2023 Miscellaneous Notes S: Patient spoke with [facility] nurse regarding vaginal burning B: Onset of symptoms/concern >2 weeks A: Symptoms started 2 1/2 weeks ago, was seen, prescribed Amoxicillin, on day 6, states she had e.coli. Now endorsing pelvic pain, constant vaginal burning. Feels slightly nauseated. Denies: fever, chills, discharge, odor, bleeding, burning with urination. Patient has seen Dr. Noel in the past. Lives in [place] so would like appointment in closest office if possible. R: Patient declined sooner appointment this week due to scheduling conflicts and location. Called the Pelvic Health clinic at [facility] and spoke with Donna. AWAD to schedule patient in new patient slot at 9:30 and change to office visit. Address of office verified. Patient understands care advice. No further needs at this time. Patient instructed to call back with new or worsening symptoms. Reason for Disposition Patient wants to be seen Protocols used: Vaginal [id number] documented in this encounter [facility] 11-19-2022 Note . MICRO - Microbiology PROCEDURE: [...] Locations *1: This test was performed at: [address], [facility] , [facility] ([place]) 07-12-2022 Note HNO ID: [id number] Author: Nelly Doe APRN.GENERAL SURGERY PHYSICIAN ASSISTANT Service: ? Author Type: Nurse Practitioner Type: Progress Notes Filed: 07/12/2022 10:02 AM Note Text: This note was created using Caliopariter. Subjective Napoleon Low is a 27 year [...] history is provided by the patient. No language pathologist was used. Chest Pain This is a [...] CHF, no DVT, no Marfan's syndrome, no [place] and no strokes. Procedure history is negative [...] MIST) 0.65 % nasal spray Use 1 [place] in the nose every 6 hours as [...] and near-syncope. Gastrointestin (more content not included)... [facility] 07-12-2022 Note HNO ID: [id number] Author: RT Elvira(R) Service: Radiology Author Type: [...] RT Elvira(R) July 12, 2022 9:15 AM [facility] 07-12-2022 Instructions Nelly Doe APRN.CNP - 07/12/2022 9:50 AM EDT [...] when lying down. documented in this encounter [facility] 07-12-2022 History of Present illness Narrative This note was created using Caliopariter. Subjective Napoleon Low is a 27 year [...] history is provided by the patient. No language pathologist was used. Chest Pain This is a [...] CHF, no DVT, no Marfan's syndrome, no [place] and no strokes. Procedure history is negative [...] MIST) 0.65 % nasal spray Use 1 [place] in the nose every 6 hours as [...] wall pain No red flags Nelly Doe APRN.HARRY documented in this encounter [facility] 04-21-2022 Note [facility] HISTORY & PHYSICAL NAME ACCOUNT SEX AGE ADMIT DISCHARGE PT MED. RECORD# NUMBER DATE DATE TYPE MARANDA, [id number] F 26 04/21/22 2 [place] [id number] ROOM: [facility] DATE OF : [birth year] DICTATING PHYSICIAN: Frank [...] PAST SURGICAL HISTORY: Laparoscopic cholecystectomy. MEDICATIONS: See MAR. ALLERGIES: Bactrim. SOCIAL HISTORY: Negative x3. REVIEW [...] Frank Ellis MD 04/21/22 09:59 JOB #: [id number] Transcribed By: aliya 04/21/22 10:17 Electronically signed by: E-SIGN DR. ELLIS 04/21/22 12:00 Update to H&P: [ ] No changes: I have examined the patient and reviewed the H&P and there are no changes. [ ] As previously dictated with the following changes: PHYSICIAN SIGNATURE: TIME: DATE: Page 2 of 2 NAPOLEON LOW History & Physical [facility] 03-03-2022 Hospital Discharge instructions Patient Education 03/03/2022 [...] the electrical activity of the heart. ?Ambulatory playground monitor. This records your heartbeats for 24 hours or more. You may be referred to a civil design specialist (relief master). How is this treated? Treatment for this [...] to keep your urine pale yellow. Take afxb-wco-jvfjmlj and prescription medicines only as told by [...] 04/16/2005 Document Revised: 04/28/2018 Document Reviewed: 04/28/2018 [employer] Patient Education 2020 [employer]ak[employer]. Follow Up Care 03/02/2022 04:38:23 With:AYLIN GUERRA MD Address: [address] [place] [address]- When:1-2 days Comments:call to see is follow up is needed With:BERYL MCMILLAN DO Address: [address] [place] [address] [address] [place], [place] [id number]- [phone] When:1-2 days Comments:Follow-up as needed [facility] 03-03-2022 Note Discharge Instructions Thank you for allowing [facility] to assist you with your healthcare needs. The following is important discharge information regarding your hospital visit. Your Care Team BERYL MCMILLAN DO What to do next Follow Up Appointments Follow Up with AYLIN GUERRA MD When Within 1-2 days Why: call to see is follow up is needed Where: [address] [facility] [address] [place] [address]- Follow Up with BERYL MCMILLAN DO When Within 1-2 days Why: Follow-up as needed Where: [address] [place] [address] [address] [place], [place] [phone]- [phone] The Following Activity and Diet Have Been [...] for Headache Duration: 7 Days [facility] New ondansetron (Zofran 4 mg oral tablet) 1 tab(s) by mouth Every 8 hours as needed for Nausea/Vomiting Duration: 5 Days [facility] at [facility] New propranolol (propranolol 60 mg oral capsule, extended release) 1 cap by mouth Once a day Duration: 30 Days [facility] at [facility] Unchanged amitriptyline (amitriptyline 25 mg oral tablet) 1 tab(s) by mouth Daily at bedtime Unchanged pantoprazole (Protonix 40 mg oral enteric coated tablet) 1 tab(s) by mouth Once a day Unchanged ubrogepant (Ubrelvy 100 mg oral tablet) 1 tab(s) by mouth Once as needed for as needed for migraine headache may repeat dose in 2 hours if needed Pharmacy Information [facility]: [address], [place] [id number] [phone] What How Much When Comments Stop Taking [...] electrical activity of the heart. ? Ambulatory playground monitor. This records your heartbeats for 24 hours or more. You may be referred to a civil design specialist (relief master). How is this treated? Treatment for this [...] to keep your urine pale yellow. Take sots-alq-nfwfkhp and prescription medicines only as told by [...] 04/16/2005 Document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
== END | disposition home or self-care (01) ==
PROVIDERS: PCP Nurse Practitioner Family; Visit Provider Registered Nurse
DX: N89.8 Other specified noninflammatory disorders of vagina (principal)
CPT/HCPCS: 87070; 87205

== ENCOUNTER → 2023-05-22 | Outpatient (CLI) | payer MEDICAID, SELFPAY ==
--- OUTSIDE RECORDS SUMMARY | 2023-05-22 12:29 | XMS RPT_ITS | CCD ---
Author Name Unknown Address [address] [place] [address] Organization [facility] Care Team Providers Care Mirror Silverer Name Role Phone АННА GOLDSTEIN Unavailable Unavailable LETITIA FORD Unavailable Unavailable АННА GOLDSTEIN Unavailable Unavailable GIOVANI JOLLEY Unavailable Unavailable BERYL MCMILLAN DO Primary Care Physician [phone] Beryl Mcmillan DO Primary Care Provider [phone] Lenka Marks DO Primary Care Provider KARLOS CORREIA Referring Unavailabl e SUDEEP HOANG Attending Unavailable NELLY SMITH Primary Care Unavailable JESSA NOEL Attending Unavailable LENKA MARKS Primary Care Unavailable BRIGHT CONCEPCION Primary Care Unavailable BRIGHT CONCEPCION Admitting Unavailable UNGERER, NELLY SENIOR NET DEVELOPER Consulting Unavailable MIGUELERER, NELLY SENIOR NET DEVELOPER Referring Unavailable BRIGHT CONCEPCION Attending Unavailable PROVIDER, UNKNOWN Consulting Unavailable BERYL MCMILLAN DO Consulting Unavailable JO PETERSEN DO Attending Unavailable JO PETERSEN DO Primary Care Unavailable JO PETERSEN DO Admitting Unavailable BERYL MCMILLAN DO Referring Unavailable PROVIDER, UNKNOWN Consulting Unavailable PROVIDER, UNKNOWN Consulting Unavailable SONYA RAMOS Attending Unavailable SONYA RAMOS Primary Care Unavailable SONYA RAMOS Admitting Unavailable BERYL MCMILLAN DO Referring Unavailable BERYL MCMILLAN DO Consulting Unavailable PROVIDER, UNKNOWN Consulting Unavailable PROVIDER, UNKNOWN Consulting Unavailable UNGERER, NELLY SENIOR NET DEVELOPER Consulting Unavailable UNGERER, NELLY SENIOR NET DEVELOPER Primary Care Unavailable UNGERER, NELLY SENIOR NET DEVELOPER Admitting Unavailable UNGERER, NELLY SENIOR NET DEVELOPER Attending Unavailable PROVIDER, UNKNOWN Consulting Unavailable UNGERER, NELLY SENIOR NET DEVELOPER Primary Care Unavailable UNGERER, NELLY SENIOR NET DEVELOPER Admitting Unavailable UNGERER, NELLY SENIOR NET DEVELOPER Attending Unavailable BERYL MCMILLAN DO Consulting Unavailable PROVIDER, UNKNOWN Consulting Unavailable PROVIDER, UNKNOWN Consulting Unavailable UNGERER, NELLY SENIOR NET DEVELOPER Primary Care Unavailable UNGERER, NELLY SENIOR NET DEVELOPER Admitting Unavailable UNGERER, NELLY SENIOR NET DEVELOPER Attending Unavailable BAHMAN MCMILLANNA DO Consulting Unavailable PROVIDER, UNKNOWN Consulting Unavailable PROVIDER, UNKNOWN Consulting Unavailable LETITIA SILVA R Attending Unavailable LETITIA SILVA R Primary Care Unavailable SILVALETITIA SALVADOR R Admitting Unavailable UNGERER, NELLY SENIOR NET DEVELOPER Primary Care Unavailable UNGERER, NELLY SENIOR NET DEVELOPER Admitting Unavailable UNGERER, NELLY SENIOR NET DEVELOPER Attending Unavailable UNGERER, NELLY SENIOR NET DEVELOPER Consulting Unavailable UNGERER, NELLY SENIOR NET DEVELOPER Primary Care Unavailable UNGERER, NELLY SENIOR NET DEVELOPER Admitting Unavailable UNGERER, NELLY SENIOR NET DEVELOPER Attending Unavailable KARLOS CORREIA MD Referring Unavailab le PROVIDER, UNKNOWN Consulting Unavailable UNGERER, NELLY SENIOR NET DEVELOPER Primary Care Unavailable UNGERER, NELLY SENIOR NET DEVELOPER Admitting Unavailable UNGERER, NELLY SENIOR NET DEVELOPER Attending Unavailable BERYL MCMILLAN DO Consulting Unavailable PROVIDER, UNKNOWN Consulting Unavailable PROVIDER, UNKNOWN Consulting Unavailable DULCE ACOSTA Attending Unavailable DULCE ACOSTA Primary Care Unavailable DULCE ACOSTA Admitting Unavailable BRIGHT CONCEPCION Attending Unavailable BRIGHT CONCEPCION Primary Care Unavailable BRIGHT CONCEPCION Admitting Unavailable DEYANIRA, BERYL N Primary Care Unavailable NELLY DOE Referring Unavailable DEYANIRA BERYL N Primary Care Unavailable Allergies Allergy Classification Reported Allergen(s) Allergy Type Date of Onset Reaction(s) Facility (4 sources) Sulfamethoxazole / Trimethoprim; Translations: [sulfamethoxazole-t rimethoprim] Drug Allergy 07-01-19 21 Rash, Hives, Itching [facility] (2 sources) Sulfamethoxazole Allergy to substance 07-04-[address] [facility] (2 sources) Trimethoprim Drug Allergy 09-06-[address] [facility] (1 source) Seasonal allergy; Translations: [SEASONAL ALLERGIES] Propensity to adverse reactions (disorder) 03-30-19 [facility] (2 sources) Sulfamethoxazole / Trimethoprim; Translations: [SULFAMETHOXAZOLE-T RIMETHOPRIM] Drug Allergy 07-01-19 21 [facility] (1 source) Sulfamethoxazole / Trimethoprim Drug Allergy [facility] Medications Current Medications Medication Drug Class(es) [...] day(s), # 5 tab(s), 0 Refill(s), Pharmacy: [facility] 1724, 149.9, cm, 03/02/22 4:46:00 EST, Height [...] unspecified; Translations: [FEVER, UNSPECIFIED] Onset: 07-21-2017 Episodic Genitourinary symptoms and ill-defined conditions (3 sources) Unspecified symptoms and signs involving the genitourinary system; Translations: [Unspecified symptoms and signs involving the genitourinary system] Onset: 05-07-2023 Episodic Headache, including migraine (1 source) Headache; Translations: [HEADACHE] Onset: 07-21-2017 Episodic Headache; including migraine (1 source) Migraine; Translations: [Migraine, unspecified, not intractable, without status migrainosus] Chronic Inflammatory diseases of female pelvic organs (1 source) Acute vaginitis; Translations: [Acute vaginitis] Onset: 05-13-2023 Episodic Nausea and vomiting (4 sources) Vomiting; Translations: [Vomiting, unspecified] Onset: 07-27-2022 Episodic Noninfectious gastroenteritis (1 source) Noninfective gastroenteritis and colitis, unspecified; Translations: [NONINFECTIVE GASTROENTERITIS AND COLITIS, UNSPECIFIED] Onset: 07-21-2017 Episodic Other acquired deformities (1 source) Scoliosis [...] Onset: 11-14-2022 Chronic Other female genital disorders (3 sources) Other [...] [Gastritis, unspecified, without bleeding] Onset: 07-27-2022 Episodic Nonmalignant breast conditions (3 sources) Mastodynia; Translations: [Mastodynia] Onset: 01-21-2023 Episodic Other female genital disorders (3 sources) Burning sensation of vulva; Translations: [Other specified conditions associated with female genital organs and menstrual cycle] Onset: 05-04-2020 01-27-2023 Episodic Other female genital disorders (2 sources) Other specified conditions associated with female genital organs and menstrual cycle; Translations: [Other specified conditions associated with female genital organs and menstrual cycle] Onset: 01-02-2022 Episodic Other injuries and conditions due to [...] Date Time Vital Sign Value Performing Clinician Faci lity 01-27-2023 09:27-0500 Body mass index (BMI) [Ratio] 26.05 kg/m2 Jessa Noel MD Work Phone: [facility] 01-27-2023 09:27-0500 Body weight 58.51 kg Jessa Noel MD Work Phone: [facility] 01-27-2023 09:27-0500 Diastolic blood pressure 70 mm[Hg] Jessa Noel MD Work Phone: [facility] 01-27-2023 09:27-0500 Heart rate 89 /min Jessa Noel MD Work Phone: [facility] 01-27-2023 09:27-0500 Systolic blood pressure 113 mm[Hg] Jessa Noel MD Work Phone: [facility] 07-12-2022 09:02-0400 Body weight 60.33 kg Nelly Doe PANEL INSTALLER[employer] MEMBER Work Phone: [facility] 07-12-2022 09:02-0400 Diastolic blood pressure 70 mm[Hg] Nelly Doe PANEL INSTALLER[employer] TE[employer] MEMBER Work Phone: [facility] 07-12-2022 09:02-0400 Heart rate 97 /min Nelly Doe PANEL INSTALLER[employer] SAL[employer] TEAM MEMBER Work Phone: [facility] 07-12-2022 09:02-0400 Respiratory rate 16 /min Nelly Doe PANEL INSTALLER[employer] SAL[employer] TEAM MEMBER Work Phone: [facility] 07-12-2022 09:02-0400 SaO2% (BldA) [Mass fraction] 98 % Nelly Doe PANEL INSTALLER[employer] TEAM MEMBER Work Phone: [facility] 07-12-2022 09:02-0400 Systolic blood pressure 110 mm[Hg] Nelly Doe PANEL INSTALLER[employer] TEAM MEMBER Work Phone: [facility] 03-03-2022 19:13-0500 Blood Pressure Cuff Size TERRENCE ODNONELL MD [facility] 03-03-2022 19:13-0500 Blood Pressure Location TERRENCE ODONNELL MD [facility] 03-03-2022 19:13-0500 Blood Pressure Method TERRENCE ODONNELL MD [facility] 03-03-2022 19:13-0500 Body temperature 98.06 [degF] TERRENCE ODONNELL MD [facility] 03-03-2022 19:13-0500 Diastolic Blood Pressure Non-Invasive 87 1 TERRENCE ODONNELL MD [facility] 03-03-2022 19:13-0500 Heart rate 88 /min TERRENCE ODONNELL MD [facility] 03-03-2022 19:13-0500 Reason For Taking VItal Signs TERRENCE ODONNELL MD [facility] 03-03-2022 19:13-0500 Respiratory rate 18 /min TERRENCE ODONNELL MD [facility] 03-03-2022 19:13-0500 Systolic Blood Pressure Non-Invasive 118 1 TERRENCE ODONNELL MD [facility] 03-03-2022 16:39-0500 Blood Pressure Location TERRENCE ODONNELL MD [facility] 03-03-2022 16:39-0500 Blood Pressure Method TERRENCE ODONNELL MD [address] [place] [id number] 03-03-2022 16:39-0500 Body temperature 97.34 [degF] TERRENCE ODONNELL MD [address] [place] [address] 03-03-2022 16:39-0500 Diastolic Blood Pressure Non-Invasive 86 1 TERRENCE ODONNELL MD [address] [place] [address] 03-03-2022 16:39-0500 Heart rate 92 /min TERRENCE ODONNELL MD [address] [place] [address] 03-03-2022 16:39-0500 Mean blood pressure 95 mm[Hg] TERRENCE ODONNELL MD [address] [place] [address] 03-03-2022 16:39-0500 Reason For Taking VItal Signs TERRENCE ODONNELL MD [address] 03-03-2022 16:39-0500 Respiratory rate 18 /min TERRENCE ODONNELL MD [address] [place] [address] 03-03-2022 16:39-0500 Systolic Blood Pressure Non-Invasive 114 1 TERRENCE ODONNELL MD [address] [place] [address] 03-03-2022 11:44-0500 Blood Pressure Location TERRENCE ODONNELL MD [address] [place] [address] 03-03-2022 11:44-0500 Blood Pressure Method TERRENCE ODONNELL MD [address] [place] [address] 03-03-2022 11:44-0500 Body temperature 97.52 [degF] TERRENCE ODONNELL MD [address] [place] [address] 03-03-2022 11:44-0500 Diastolic Blood Pressure Non-Invasive 77 1 TERRENCE ODONNELL MD [address] [place] [address] 03-03-2022 11:44-0500 Heart rate 86 /min TERRENCE ODONNELL MD [address] [place] [address] 03-03-2022 11:44-0500 Mean blood pressure 88 mm[Hg] TERRENCE ODONNELL MD [facility] 03-03-2022 11:44-0500 Reason For Taking VItal Signs TERRENCE ODONNELL MD [facility] 03-03-2022 11:44-0500 Respiratory rate 18 /min TERRENCE ODONNELL MD [address] [place] [address] 03-03-2022 11:44-0500 Systolic Blood Pressure Non-Invasive 109 1 TERRENCE ODONNELL MD [address] [place] [address] 03-03-2022 08:57-0500 Heart rate 89 /min TERRENCE ODONNELL MD [address] [place] [address] 03-03-2022 04:29-0500 Heart rate 82 /min TERRENCE ODONNELL MD [address] [place] [address] 03-03-2022 00:15-0500 Heart rate 84 /min TERRENCE ODONNELL MD [address] [place] [address] 03-02-2022 19:32-0500 Heart rate 98 /min TERRENCE ODONNELL MD [address] [place] [address] 03-02-2022 13:30-0500 Heart rate 111 /min TERRENCE ODONNELL MD [address] [place] [address] 03-02-2022 08:49-0500 Heart rate 118 /min TERRENCE ODONNELL MD [address] [place] [address] 03-02-2022 04:30-0500 Body height 149.9 cm TERRENCE ODONNELL MD [address] [place] [address] 03-02-2022 04:30-0500 Body weight 53.8 kg TERRENCE ODONNELL MD [facility] 03-02-2022 04:30-0500 Body weight 23.94 kg/m2 TERRENCE ODONNELL MD [address] [place] [address] Encounters Encounter Date Encounter Type Care Provider Facility Start: 05-13-2023 End: 05-13-2023 ambulatory LETITIASILVERIO SILVA [facility] Start: 05-07-2023 End: 05-07-2023 ambulatory NELLY SHERIDAN [facility] Start: 03-30-2023 End: 03-30-2023 amb[facility] Start: 03-16-2023 End: 03-16-2023 Emergency department patient visit BRIGHT CONCEPCION [facility] Start: 03-05-2023 End: 03-05-2023 ambulatory DULCE ACOSTA [facility] Start: 02-24-2023 End: 02-24-2023 Emergency department patient visit BRIGHT Freitas CONCEPCION [facility] Start: 02-19-2023 End: 02-19-2023 ambulatory NELLY SHERIDAN [facility] Start: 01-27-2023 End: 01-27-2023 ambulatory JESSA NOEL [facility] Start: 01-27-2023 End: 01-27-2023 Office outpatient visit 15 minutes Jessa Noel MD Work Phone: [facility] Pelvic Health Procedures Date Procedure Procedure Detail Performing Clinician Start: 02-24-2023 Urinalysis BRIGHT JAMEY Plan of Treatment Date Care Activity Detail Author Start: 2056 RSV Immunization aged 60 or older (1 - 1-dose 60+ series) RSV Immunization aged 60 or older (1 - 1-dose 60+ series) [facility] Start: 2046 Zoster Vaccines (1 of 2) Zoster Vaccines (1 of 2) [facility] Start: 12-14-2028 DTaP/Tdap/Td Vaccines (9 - Td or Tdap) DTaP/Tdap/Td Vaccines (9 - Td or Tdap) [facility] Start: 11-21-2022 COVID-19 Vaccine ( season) COVID-19 Vaccine ( season) [facility] Start: 11-21-2022 Influenza vaccination [facility] Start: 03-23-2022 DEPRESSION ASSESSMENT DEPRESSION ASSESSMENT [facility] Start: 10-20-2020 COVID-19 VACCINE (3 - Booster for Pfizer series) COVID-19 VACCINE (3 - Booster for Pfizer series) [facility] Start: 10-20-2020 COVID-19 Vaccine (3 - Pfizer series) COVID-19 Vaccine (3 - Pfizer series) [facility] Start: 2017 PAP TESTING PAP TESTING [facility] Start: 2017 Screening for malignant neoplasm of cervix Pap Smear [facility] Start: 06-20-2015 Urine microalbumin profile DTAP,TDAP,TD (1 - Tdap) [facility] Start: 12-26-2014 Hepatitis A Vaccines (2 of 2 - 2-dose series) Hepatitis A Vaccines (2 of 2 - 2-dose series) [facility] Start: 07-24-2014 HPV Vaccines (2 - 3-dose series) HPV Vaccines (2 - 3-dose series) [facility] Start: 2014 HEPATITIS C SCREENING HEPATITIS C SCREENING [facility] Start: 2014 Hepatitis C screening Hepatitis C Screening [facility] Start: 2014 HIV SCREENING HIV SCREENING [facility] Start: 2010 PEDS TO ADULT TRANSITION ANNUAL ASSESSMENT PEDS TO ADULT TRANSITION ANNUAL ASSESSMENT [facility] Start: 2008 Depression Screening Depression Screening [facility] Start: 2008 PEDS TO ADULT TRANSITION INITIAL DISCUSSION PEDS TO ADULT TRANSITION INITIAL DISCUSSION [facility] Start: 06-20-2007 HPV VACCINE (1 - 2-dose series) HPV VACCINE (1 - 2-dose series) [facility] Start: 1996 HEPATITIS B (1 of 3 - 3-dose series) HEPATITIS B (1 of 3 - 3-dose series) [facility] Start: 1996 HIV screening HIV Screening [facility] Start: 1996 Lipid panel Lipid Panel [facility] Start: 1996 Thyroid stimulating hormone measurement TSH Level [facility] CHLAMYDIA/N.GONORRHO EAE AND T. VAGINALIS RNA, QL TMA ([facility]) Chlamydia/N.Gonorrhoeae and T. Vaginalis RNA, QL TMA ([facility]) Microbiology Routine Vulvar burning Ordered: 01/27/2023 [facility] Work Phone: Immunizations Immunization Date Immunization Notes Care Provider Fa cility 12-25-2022 influenza virus vacc ine, unspecified formulation Jessa Noel MD Work Phone: [facility] 12-31-2020 influenza virus vacc ine, unspecified formulation TERRENCE ODONNELL MD [facility] 08-25-2020 SARS-CoV-2 mRNA (tozinameran) vaccine TERRENCE ODONNELL MD [facility] 07-25-2020 SARS-CoV-2 mRNA (tozinameran) vaccine TERRENCE ODONNELL MD [facility] 03-15-2020 influenza virus vacc ine, unspecified formulation TERRENCE ODONNELL MD [facility] 04-23-2019 influenza virus vacc ine, unspecified formulation TERRENCE ODONNELL MD [facility] 12-14-2018 tetanus toxoid, redu niya diphtheria toxoid, and acellular pertussis vaccine, adsorbed TERRENCE ODONNELL MD [facility] 12-10-2018 influenza virus vacc ine, unspecified formulation TERRENCE ODONNELL MD [facility] 03-23-2017 influenza virus vacc ine, unspecified formulation TERRENCE ODONNELL MD [facility] 06-26-2014 hepatitis A vaccine, pediatric dosage, unspecified formulation TERRENCE ODONNELL MD [facility] 06-26-2014 Human Papillomavirus Quadval TERRENCE ODONNELL MD [facility] 06-26-2014 meningococcal polysaccharide (groups A, C, Y and W-135) diphtheria toxoid conjugate vaccine (MCV4P) TERRENCE ODONNELL MD [facility] 06-26-2014 varicella virus vaccine JONO ODONNELL MD [facility] 06-26-2014 hepatitis A and hepa titis B vaccine Jessa Noel MD Work Phone: [facility] 06-26-2014 HPV, unspecified formulation Jessa Noel MD Work Phone: [facility] 01-26-2013 influenza virus vacc ine, unspecified formulation TERRENCE ODONNELL MD [facility] 04-10-2010 influenza virus vacc ine, unspecified formulation TERRENCE ODONNELL MD [facility] 08-07-2009 tetanus toxoid, redu niya diphtheria toxoid, and acellular pertussis vaccine, adsorbed TERRENCE ODONNELL MD [facility] 02-20-2003 influenza virus vacc ine, unspecified formulation TRERENCE ODONNELL MD [facility] 11-01-2002 measles/mumps/rubell a virus vaccine TERRENCE ODONNELL MD [facility] 11-01-2002 poliovirus vaccine, inactivated TERRENCE ODONNELL MD [facility] 12-18-1997 haemophilus influenz ae type b vaccine, PRP-OMP conjugate TERRENCE ODONNELL MD [facility] 12-18-1997 varicella virus vaccine JONO ODONNELL MD [facility] 06-26-1997 measles/mumps/rubell a virus vaccine TERRENCE ODONNELL MD [facility] 02-14-1997 hepatitis B pediatri c vaccine TERRENCE ODONNELL MD [facility] 1996 hepatitis B pediatri c vaccine TERRENCE ODONNELL MD [facility] 1996 hepatitis B pediatri c vaccine TERRENCE ODONNELL MD [facility] Payers Date Payer Category Payer Medicaid [employer] [place] [id number] 2023-Present [phone] [place] [id number] Medicaid HMO [id number] 2023 Unknown [id number] 2018 Unknown [id number] 2018 Unknown [id number] 1996 Unknown [id number] 1996 Unknown [id number] 1996 Unknown [id number] 1996 Unknown [id number] 1996 Unknown [id number] 1996 Unknown [id number] 1996 Unknown [id number] 1996 Unknown [id number] 1996 Unknown [id number] 1996 Unknown [id number] 1996 Unknown [id number] 1996 Unknown [id number] 1996 Unknown [id number] Unknown [id number] Social History Date Type Detail Facility Start: 12-19-2017 Tobacco smoking stat us NHIS Never smoked tobacco [facility] Start: 12-19-2017 Tobacco use and exposure Smoke less tobacco non-user [facility] Start: 05-17-2021 End: 03-11-2022 Alcohol intake Lifetime non-drinker (finding) [facility] Start: 06-05-2020 History SDOH Alcohol Frequency 1 [facility] Start: 1996 Sex Assigned At Female C [facility] Start: 03-11-2022 History of Social function [facility] Start: 03-11-2022 Tobacco use panel [facility] Start: 01-09-2022 Gender identity Identifies as female gender (finding) [facility] Start: 01-09-2022 Sexual orientation Heterosexual (fin ding) [facility] Functional Status Date Assessment Result Facility 03-03-2022 Functional Status Single level home [facility] 03-03-2022 Functional Status [facility] 03-03-2022 Functional Status [facility] 03-03-2022 Functional Status Breakfast Percent 75 [facility] 03-03-2022 Functional Status Shampoo/Body wash (no r inse) [facility] 03-02-2022 Functional Status Hospital bed [facility] 03-02-2022 Functional Status [facility] 03-02-2022 Functional Status [facility] 03-02-2022 Functional Status Sensory Deficits None A [facility] Mental Status Date Assessment Result Facility 03-03-2022 Mental Status Oriented x 4 [facility] 03-02-2022 Mental Status [facility] 03-02-2022 Mental Status [facility] Clinical Notes 03-02-2022 to 05-08-2023 Jessa Noel MD - 01/27/2023 9:30 AM ESTTelephone Encounter - Charity Thapa RN - 01/22/2023 2:51 PM EDTTelephone Encounter - Charity Thapa RN - 01/22/2023 2:51 PM EDTPatient Instructions Note Date & Type Note Facility 05-08-2023 Note . MICRO - Microbiology PROCEDURE: Affirm Pathogens DNA Direct Probe [*1] SOURCE: Vaginal Fluid BODY SITE: Vagina COLLECTED DATE/TIME: 05/07/2023 12:00 EST RECEIVED DATE/TIME: 05/07/2023 16:38 EST START DATE/TIME: 05/07/2023 16:38 EST FREE TEXT SOURCE: FINAL REPORTS Final Report [] Verified Date/Time/Personnel: 05/08/2023 14:02 EST Jennifer species DNA Probe Negative Gardnerella vaginalis DNA Probe Negative Trichomonas vaginalis DNA Probe Negative Performing Locations *1: This test was performed at: [address], [address] , [facility] ([place]) 03-09-2023 Note . MICRO - Microbiology PROCEDURE: [...] Locations *1: This test was performed at: [address], [address] , [facility] ([place]) 01-27-2023 History of Present illness Narrative CC: Chief Complaint Patient presents with Vaginal Pain HPI: 27 y.o. No obstetric history on file. Here with vestibular burning Started 2 weeks ago. She first went to urgent care, given Rx fluconazole. No relief Went to her [facility] in [place], vaginal culture + E. Coli- Rx Augmentin. No relief Napoleon states her symptoms are a burning around the vaginal opening. No discharge, itching, or odor She is SA with a new partner She has been using vagisil PMH has a past medical history of Acquired adolescent scoliosis and Osteogenesis imperfecta. O: Vitals: 01/27/23926 BP: 113/70 BP Location: Left arm Patient Position: Sitting BP Cuff Size: Adult long Pulse: 89 Weight: 129 lb (58.5 kg) GEN: well nourished, no acute distress RESP: normal effort [facility]: EXTERNAL: Groin: normal skin color and texture [...] also use vaseline. documented in this encounter [facility] 01-22-2023 Telephone encounter Note S: Patient spoke [...] Dr. Noel in the past. Lives in [place] so would like appointment in closest office if possible. R: Patient declined sooner appointment this week due to scheduling conflicts and location. Called the Pelvic Health clinic at [facility] and spoke with Donna. AWAD to schedule patient in new patient slot at 9:30 and change to office visit. Address of office verified. Patient understands care advice. No further needs at this time. Patient instructed to call back with new or worsening symptoms. Reason for Disposition Patient wants to be seen Protocols used: Vaginal [id number] [facility] 01-22-2023 Miscellaneous Notes S: Patient spoke with [facility] nurse regarding vaginal burning B: Onset of symptoms/concern >2 weeks A: Symptoms started 2 1/2 weeks ago, was seen, prescribed Amoxicillin, on day 6, states she had e.coli. Now endorsing pelvic pain, constant vaginal burning. Feels slightly nauseated. Denies: fever, chills, discharge, odor, bleeding, burning with urination. Patient has seen Dr. Noel in the past. Lives in [place] so would like appointment in closest office if possible. R: Patient declined sooner appointment this week due to scheduling conflicts and location. Called the [facility] clinic at [facility] and spoke with Donna. AWAD to schedule patient in new patient slot at 9:30 and change to office visit. Address of office verified. Patient understands care advice. No further needs at this time. Patient instructed to call back with new or worsening symptoms. Reason for Disposition Patient wants to be seen Protocols used: Vaginal Mhdjtmaa-KZRET-VW documented in this encounter [facility] 11-19-2022 Note . MICRO - Microbiology PROCEDURE: [...] Locations *1: This test was performed at: [facility], [address] [place] [address], [facility] , [facility] ([place]) 07-12-2022 Note HNO ID: [id number] Author: Nelly Doe APRN.[employer]AM MEMBER Service: ? Author Type: Nurse Practitioner Type: Progress Notes Filed: 07/12/2022 10:02 AM Note Text: This note was created using Merusriter. Subjective Napoleon Low is a 27 year [...] history is provided by the patient. No deaf interpreter was used. Chest Pain This is a [...] CHF, no DVT, no Marfan's syndrome, no NE and no strokes. Procedure history is negative [...] MIST) 0.65 % nasal spray Use 1 [place] in the nose every 6 hours as [...] and near-syncope. Gastrointestin (more content not included)... [facility] 07-12-2022 Note HNO ID: [id number] Author: RT Elvira(R) Service: Radiology Author Type: [...] RT Elvira(R) July 12, 2022 9:15 AM [facility] 07-12-2022 Instructions Nelly Doe APRN.CNP - 07/12/2022 [...] when lying down. documented in this encounter [facility] 07-12-2022 History of Present illness Narrative This note was created using Merusriter. Subjective Napoleon Low is a 27 year [...] history is provided by the patient. No deaf interpreter was used. Chest Pain This is a [...] CHF, no DVT, no Marfan's syndrome, no NE and no strokes. Procedure history is negative [...] MIST) 0.65 % nasal spray Use 1 [place] in the nose every 6 hours as [...] wall pain No red flags Nelly Doe APRN.[employer] TEAM MEMBER documented in this encounter [facility] 03-03-2022 Hospital Discharge instructions Patient Education 03/03/2022 [...] the electrical activity of the heart. ?Ambulatory desk monitor. This records your heartbeats for 24 hours or more. You may be referred to a authorization specialist (toll bridge operator). How is this treated? Treatment for this [...] to keep your urine pale yellow. Take psju-cua-btotdka and prescription medicines only as told by [...] 04/16/2005 Document Revised: 04/28/2018 Document Reviewed: 04/28/2018 [employer] Patient Education 2020 Kranem Follow Up Care 03/02/2022 04:38:23 With:AYLIN GUERRA MD Address: [address] [id number]- When:1-2 days Comments:call to see is follow up is needed With:BERYL MCMILLAN DO Address: [address] [place] [address] [address] [place] [phone] When:1-2 days Comments:Follow-up as needed [facility] 03-03-2022 Note Discharge Instructions Thank you for allowing [facility] to assist you with your healthcare needs. The following is important discharge information regarding your hospital visit. Your Care Team BERYL MCMILLAN DO What to do next Follow Up Appointments Follow Up with AYLIN GUERRA MD When Within 1-2 days Why: call to see is follow up is needed Where: [address] [address]- Follow Up with BERYL MCMILLAN DO When Within 1-2 days Why: Follow-up as needed Where: [address] [place] [address] [address] [place] [phone] The Following Activity and Diet Have Been [...] for Headache Duration: 7 Days Pickup at [facility] 172 New ondansetron (Zofran 4 mg oral tablet) 1 tab(s) by mouth Every 8 hours as needed for Nausea/Vomiting Duration: 5 Days Pickup at [facility] 1724 New propranolol (propranolol 60 mg oral capsule, extended release) 1 cap by mouth Once a day Duration: 30 Days Pickup at [place] [address] Unchanged amitriptyline (amitriptyline 25 mg oral tablet) 1 tab(s) by mouth Daily at bedtime Unchanged pantoprazole (Protonix 40 mg oral enteric coated tablet) 1 tab(s) by mouth Once a day Unchanged ubrogepant (Ubrelvy 100 mg oral tablet) 1 tab(s) by mouth Once as needed for as needed for migraine headache may repeat dose in 2 hours if needed Pharmacy Information [facility] 172: [address] [place], [place] [id number] [phone] What How Much When Comments Stop Taking [...] electrical activity of the heart. ? Ambulatory desk monitor. This records your heartbeats for 24 hours or more. You may be referred to a authorization specialist (toll bridge operator). How is this treated? Treatment for this [...] to keep your urine pale yellow. Take bouv-for-sdfeslu and prescription medicines only as told by [...] 04/16/2005 Document Revised: 04/28/2018 Document Reviewed: 04/28/2018 [employer] Patient Education 2020 Lightspeed. Additional Information VACCINATE! IT SAVES LIVES! Members of the community who have not yet received the COVID-19 vaccine and would like to receive it can visit one of [facility] vaccine clinics. There are many vaccine clinic locations within the [facility]. For locations and available times, please visit [email or web address] [email or web address] It is important to note that some COVID mobile vaccine clinics are held outdoors and may be canceled in rainy or stormy conditions. To learn more about pediatric vaccinations (ages 5-11), we invite you to visit the [facility] webpage. [email or web address] [email or web address]-[email or web address]-Freq [email or web address] To learn more about the COVID-19 vaccine, we invite you to visit the [facility] website for a list of frequently asked questions. [email or web address]-H requently_[email or web address].pdf [facility] Patient Portal Access Instructions: Stay connected with your healthcare team and access your personal medical information anytime with the [facility] Patient Portal.If you would like a full copy of your medical records, please contact the [facility] Medical Records Department, Thursday through Thursday between 8a.m. and 4:30p.m. Please follow the directions below to access the portal: 1.Access the email account you provided upon registration to the [facility].2.Look for an invitation email from [facility].3.Open the email and access the invitation link: Accept Invitation to [employer]4.Fill in the required bell to create your account. Sign into [email or web address] with your username and password that you [...] you will allow to register on the [employer] [facility] Patient Portal for access to your information. You can also access the [employer] [facility] Patient Portal on the Dinos Rule. Simply click on Health Records under Health Data and then click on the [employer] logo. HOW TO SAFELY DISPOSE OF PRESCRIPTION [...] Call your local pharmacy or go to http://codesy.[email or web address]/[email or web address] to find one close to you.3.Make use of household items: Use cat litter or old coffee grounds to dispose medications if other options are not available. Mix your drugs with these household products, seal them in an airtight container and throw it into the garbage. Call [facility]: [phone] to be sure your drugs can be [...] aware that I should contact my doctor. Patient/Substitute Crossing Guard Signature: Date/Time: Relationship to Patient: Witness Name/Signature: Date/Time: [facility] 03-03-2022 Discharge summary Date of Service [...] day(s), # 5 tab(s), 0 Refill(s), Pharmacy: [facility], 149.9, cm, 03/02/22 4:46:00 [...] cap(s), 0 Refill(s), 03/08/22 19:03:00 EST, Pharmacy: [facility]24, 149.9, cm, 03/02/22 4:46:00 EST, Height Ordered: propranolol 60 mg oral capsule, extended release,Dose : 60 mg = 1 cap(s), Oral, qDay, # 30 cap(s), 0 Refill(s), Pharmacy: [facility], 149.9, cm, 03/02/22 4:46:00 EST, [...] to Physician - Ordered -- 03/02/22 4:58:00 DANDRE SALINAS PETER MD, Routine, Persistent Tachycardia Physical Exam Vitals [...] THERESA WISE MD on 03/03/2022 07:12 PM [facility] 03-03-2022 Note Date of Service 03/03/2022 [...] THERESA WISE MD on 03/03/2022 06:46 PM [facility] 03-03-2022 Cardiology Consult note Date of Service 03/03/2022 Reason for Consultation Persistent tachycardia Referring Physician Dr. Odonnell History of Present Illness This is a 26-year-old Romanian-speaking female with PMH significant for osteogenesis imperfecta, migraine headaches, scoliosis. She presented to [facility] with chief concern of migraine headaches, nausea [...] felt improved tachycardia. She was transferred to [facility] for cardiology opinion. Telemetry monitoring reviewed on [...] imperfecta Scoliosis Plan: This is a 26-year-old Romanian-speaking female with PMH significant for osteogenesis imperfecta, migraine headaches, scoliosis. She presented to [facility] with concern for migraine headaches, nausea and vomiting. At the time of her discharge she was found to have persistent sinus tachycardia despite IV hydration and Ativan therapy, and was transferred to [facility] for cardiology opinion. Patient denies having any [...] YARI MENENDEZ MD on 03/03/2022 02:43 PM [facility] 03-03-2022 Cardiology Consult note Date of Service 03/03/2022 Reason for Consultation Persistent tachycardia Referring Physician Dr. Odonnell History of Present Illness This is a 26-year-old Romanian-speaking female with PMH significant for osteogenesis imperfecta, migraine headaches, scoliosis. She presented to [facility] with chief concern of migraine headaches, nausea [...] felt improved tachycardia. She was transferred to [facility] for cardiology opinion. Telemetry monitoring reviewed on [...] imperfecta Scoliosis Plan: This is a 26-year-old Romanian-speaking female with PMH significant for osteogenesis imperfecta, migraine headaches, scoliosis. She presented to [facility] with concern for migraine headaches, nausea and vomiting. At the time of her discharge she was found to have persistent sinus tachycardia despite IV hydration and Ativan therapy, and was transferred to [facility] for cardiology opinion. Patient denies having any [...] YARI MENENDEZ MD on 03/03/2022 02:43 PM [facility] Persistent tachycardia: Patient has persistent sinus [...] every 8 hours Note was written using dragon maple sugar maker software. Some of the meaning of the words and sentences might have changed during maple sugar maker, if there was ever some confusion about the meaning of some sentences, please do not hesitate to contact me. [facility] 12-11-2022 Note Date of Service 03/02/2022 [...] THERESA WISE MD on 03/02/2022 11:09 AM [id number] History and physical note Date of Service March 02, 2022 Chief Complaint Headache, nausea. History of Present Illness A 26 years old female with past medical history significant for osteogenesis imperfecta, migraine headaches and scoliosis presented to the [facility] with chief concern of migraine headaches, nausea/vomiting on March 01, 2022. She was treated with pain medications well she was about to be discharged, ER physician noticed persistent sinus tachycardia. Patient did receive IV fluids and IV Ativan at [facility] which failed to improve tachycardia. D-dimer was barely above upper limit of normal, CTA chest with contrast did not show evidence of PE or any other acute lung abnormalities at [facility]. Labs at [facility] was significant for potassium of 3.3, hemoglobin [...] groomed, euthymic. cooperative Lab Results Labs at [facility] pending EKG EKG at [facility] pending Assessment/Plan Persistent tachycardia: Patient has persistent [...] every 8 hours Note was written using [employer] maple sugar maker software. Some of the meaning of the words and sentences might have changed during maple sugar maker, if there was ever some confusion about [...] Family History Significant for osteogenesis imperfecta, stroke, NE, hypertension and cancer Immunizations haemophilus b conj [...] TERRENCE ODONNELL MD on 03/02/2022 06:08 AM [facility] Chest wall injury, initial encounter- Primary Fall on same level from slipping, tripping or stumbling, initial encounter [facility] Vulvar burning- Primary [facility] Narrative No data available for this section [facility] Summary Purpose Family History No Family [...] AUTHOR AUTHOR'S ORGANIZ ATION 12/13/2019 [facility] DATE CREATED AUTHOR AUTHOR'S ORGANIZ ATION 03/06/2020 [employer] DATE CREATED AUTHOR AUTHOR'S ORGANIZ ATION 03/09/2021 [facility] DATE CREATED AUTHOR AUTHOR'S ORGANIZ ATION 04/08/2023 [facility] DATE CREATED AUTHOR AUTHOR'S ORGANIZ ATION 05/08/2023 [facility] DATE CREATED AUTHOR AUTHOR'S ORGANIZ ATION 05/10/2023 [facility] ([place]) DATE CREATED AUTHOR AUTHOR'S ORGANIZ ATION 05/21/2023 [facility] DATE CREATED AUTHOR AUTHOR'S ORGANIZ ATION 05/22/2023 [facility] Care Team (unrecognized sect ion and content) Care Team Personnel Name: BERYL MCMILLAN DO Member Role: Primary Care Physician Address: Address: [address] [place] [address]- Care Team Related Persons Name: LESLI GAO Address: Home [address] [place] [address] [place] Source Comments (unrecognize d section and content) In the event this informatio n is protected by the Federal Confidentiality of Alcohol and Drug Abuse Patient Records regulations: The Federal rules restrict any use of the information to criminally investigate or prosecute any alcohol or drug abuse patient.[facility] Reason for Visit (unrecogniz ed section and content) Reason Comments Vaginal Pain Reason Onset Date Comments Vaginal Pain 01/22/2023 Care Teams (unrecognized sec tion and content) Mirror Silverer Relationship Specialty Start Date End Date Lenka Marks DO [address] [phone] PCP - General Internal Medicine 02/10/22 Mirror Silverer Relationship Specialty Start Date End Date Lenka Marks [address] [phone] PCP - General Internal Medicine 02/10/22 FOR [...] BE BASED ON THE PRIMARY CLINICAL RECORDS. [facility]. provides no warranty or guarantee of the accuracy or completeness of information in this document.
== END | disposition home or self-care (01) ==
LOC: LABSPEC 12:08
PROVIDERS: PCP Nurse Practitioner Family; Referring Provider Advanced Practice Midwife; Visit Provider Advanced Practice Midwife
DX: N94.9 Unspecified condition associated with female genital organs and menstrual cycle (principal)
CPT/HCPCS: 87070; 87086; 87205

== ENCOUNTER 2023-05-28 08:58 | Outpatient (CLI) | payer MEDICAID, SELFPAY ==
[2023-05-28 09:10] VITALS: BMI 31.1
[2023-05-28 09:17] VITALS: BP 119/73; PULSE 107; RESP 16; TEMP 36.8
[2023-05-28 10:03] LABS: Absolute Lymphocyte Count 1.36 X10^3/uL (0.83-4.51); Absolute Neutrophil Count 7.2 X10^3/uL (2.0-7.7); Basophil# 0.06 X10^3/uL; Basophil% 0.6 % (0-1); Eosinophil# 0.13 X10^3/uL; Eosinophils% 1.4 % (0-5); Hematocrit 33.3 % (37-47); Hemoglobin 11.3 g/dL (12.0-15.0); Lymphocyte # 1.36 X10^3/ul (0.83-4.51); Lymphocyte % 14.4 % (19-41); Mean Corp Hgb Conc 33.9 g/dL (32-36); Mean Corpuscular Hgb 30.1 pg (27.0-32.0); Mean Corpuscular Volume 88.8 fL (81-99); Mean Platelet Vol. 9.4 fl (6.2-12.0); Monocyte# 0.57 X10^3/uL; NRBC Flagged by Analyzer 0 % (0-5); Neutrophil # 7.22 X10^3/uL (2.7-7.7); Neutrophil % 76.5 % (47-70); Platelet Count 310 K/mm3 (150-450); RBC Distribution Width CV 13.2 % (11.6-14.6); Red Blood Count 3.75 M/mm3 (4.2-5.4); White Blood Count 9.4 K/mm3 (4.4-11.0)
[2023-05-28 10:12] LABS: Fibrinogen 475 mg/dl (203-444)
--- NOTE | 2023-05-28 11:19 | OB.TRI.PN ---
Progress Notes Date of Service: 05/28/23 Progress Note: patient seen for abdominal trauma, fell after tripping at 2 am, some abdominal pain. cbc and fibrinogen reassuring. no contractions, fht reassuring, dc home fu as scheudled. Laboratory Studies: Laboratory Tests 05/28/23 Range/Units 09:40 WBC 9.4 (4.4-11.0) K/mm3 RBC 3.75 L (4.2-5.4) M/mm3 Hgb 11.3 L (12.0-15.0) g/dL Hct 33.3 L (37-47) % MCV 88.8 (81-99) fL MCH 30.1 (27.0-32.0) pg MCHC 33.9 (32-36) g/dL RDW Std Deviation 43.0 (35.1-43.9) fl RDW Coeff of Sharmin 13.2 (11.6-14.6) % Plt Count 310 (150-450) K/mm3 MPV 9.4 (6.2-12.0) fl Immature Gran % (Auto) 1.100 H (0.0-0.9) % Neut % (Auto) 76.5 H (47-70) % Lymph % (Auto) 14.4 L (19-41) % [place] % (Auto) 6.0 (0-10) % Eos % (Auto) 1.4 (0-5) % Baso % (Auto) 0.6 (0-1) % Absolute Neuts (auto) 7.2 (2.0-7.7) X10^3/uL Absolute Lymphs (auto) 1.36 (0.83-4.51) X10^3/uL Nucleated RBC % 0 (0-5) % Fibrinogen 475 H (203-444) mg/dl
== END 2023-05-28 10:45 | disposition home or self-care (01) ==
LOC: WPOUT 09:04 → WP 09:04
PROVIDERS: PCP Nurse Practitioner Family; Referring Provider Obstetrics & Gynecology; Visit Provider Obstetrics & Gynecology
DX: O71.89 Other specified obstetric trauma (principal); W19.XXXA Unspecified fall, initial encounter; Z3A.00 Weeks of gestation of pregnancy not specified
CPT/HCPCS: 36415; 59050; 85025; 85384; 99221; G0378

== ENCOUNTER → 2023-06-03 | Outpatient (CLI) | payer MEDICAID, SELFPAY | END | disposition home or self-care (01) | PROVIDERS: PCP Nurse Practitioner Family; Referring Provider Obstetrics & Gynecology; Visit Provider Obstetrics & Gynecology | DX: N94.9 Unspecified condition associated with female genital organs and menstrual cycle (principal) | CPT/HCPCS: 87070; 87205 ==

== ENCOUNTER 2023-06-15 13:34 | Outpatient (CLI) | payer MEDICAID, SELFPAY ==
[2023-06-15 13:45] VITALS: BP 116/62; PULSE 111; RESP 16; TEMP 36.6; O2SAT 97; BMI 31.3
[2023-06-15] MEDS: Dextrose 5%-Lactated Ringers 1,000 ML 999 ML IV (13:52)
[2023-06-15] MEDS: Ondansetron 4 MG/2 ML Vial IV (14:18)
[2023-06-15 14:59] VITALS: BP 112/62; PULSE 98
== END 2023-06-15 13:35 | disposition home or self-care (01) ==
LOC: MEDOUTP 13:34
PROVIDERS: PCP Nurse Practitioner Family; Referring Provider Obstetrics & Gynecology; Visit Provider Obstetrics & Gynecology
DX: E86.0 Dehydration (principal)
CPT/HCPCS: 96374; 96361; A4216; J2405

== ENCOUNTER → 2023-07-09 | Outpatient (CLI) | payer MEDICAID, SELFPAY ==
[2023-07-09 15:58] LABS: Absolute Neutrophil Count 7.4 X10^3/uL (2.0-7.7); Basophil# 0.09 X10^3/uL; Basophil% 0.9 % (0-1); Eosinophil# 0.18 X10^3/uL; Eosinophils% 1.7 % (0-5); Hematocrit 34.7 % (37-47); Hemoglobin 11.6 g/dL (12.0-15.0); Lymphocyte % 13.5 % (19-41); Mean Corp Hgb Conc 33.4 g/dL (32-36); Mean Corpuscular Hgb 29.9 pg (27.0-32.0); Mean Corpuscular Volume 89.4 fL (81-99); Mean Platelet Vol. 9.4 fl (6.2-12.0); Monocyte# 1.05 X10^3/uL; Monocyte% 10.1 % (0-10); NRBC Flagged by Analyzer 0 % (0-5); Neutrophil % 71.4 % (47-70); Platelet Count 302 K/mm3 (150-450); RBC Distribution Width CV 13.2 % (11.6-14.6); RBC Distribution Width SD 43.2 fl (35.1-43.9); Red Blood Count 3.88 M/mm3 (4.2-5.4); White Blood Count 10.4 K/mm3 (4.4-11.0)
[2023-07-09 16:18] LABS: ALB/GLOB Ratio 0.8 RATIO (0.9-2.4); AST(SGOT) 12 U/L (15-37); Alanine Aminotransfer ALT/SGPT 20 U/L (13-56); Albumin, Serum 3.1 g/dL (3.2-5.0); Alkaline Phosphatase 79 U/L (45-117); Anion Gap 4 (5-15); BUN 6 mg/dL (7-18); Calcium,Total 9.5 mg/dL (8.5-10.1); Chloride 109 mmol/L (98-107); Creatinine, Serum 0.43 mg/dL (0.55-1.02); EST Glomerular Filtration Rate 188 mL/min (>60); Est Glom Filt Rate - Afr Amer 227 mL/min (>60); Glucose 75 mg/dL (74-106); Potassium 3.7 mmol/L (3.5-5.1); Protein, Total 7.1 g/dL (6.4-8.2); Sodium Level 138 mmol/L (136-145)
[2023-07-09 18:05] LABS: Protein, Urine (Random) 9.2 mg/dL (<11.9); Protein:Creat Ratio 143 mg/g CRE (0-200)
== END | disposition home or self-care (01) ==
PROVIDERS: PCP Nurse Practitioner Family; Referring Provider Advanced Practice Midwife; Visit Provider Advanced Practice Midwife
DX: R51.9 Headache, unspecified (principal)
CPT/HCPCS: 36415; 80053; 82570; 84156; 85025

== ENCOUNTER 2023-07-17 07:08 | Outpatient (CLI) | payer MEDICAID, SELFPAY ==
[2023-07-17 07:27] VITALS: RESP 17; BMI 32.9
[2023-07-17 07:32] VITALS: BP 120/69; PULSE 111; TEMP 36.4; O2SAT 97
[2023-07-17] MEDS: Lactated Ringers 1,000 ML 999 ML IV (08:00)
[2023-07-17] MEDS: Ondansetron 4 MG/2 ML Vial IV (08:08)
[2023-07-17 08:28] LABS: Hematocrit 34.7 % (37-47); Hemoglobin 11.7 g/dL (12.0-15.0); Mean Corp Hgb Conc 33.7 g/dL (32-36); Mean Corpuscular Hgb 30.2 pg (27.0-32.0); Mean Corpuscular Volume 89.4 fL (81-99); Mean Platelet Vol. 9.5 fl (6.2-12.0); Platelet Count 302 K/mm3 (150-450); RBC Distribution Width CV 13.6 % (11.6-14.6); RBC Distribution Width SD 44.2 fl (35.1-43.9); Red Blood Count 3.88 M/mm3 (4.2-5.4); White Blood Count 11.2 K/mm3 (4.4-11.0)
[2023-07-17 08:37] LABS: Protein:Creat Ratio 164 mg/g CRE (0-200)
[2023-07-17 08:40] LABS: AST(SGOT) 14 U/L (15-37); Alanine Aminotransfer ALT/SGPT 20 U/L (13-56); Creatinine, Serum 0.41 mg/dL (0.55-1.02); EST Glomerular Filtration Rate 196 mL/min (>60); Est Glom Filt Rate - Afr Amer 237 mL/min (>60); Uric Acid 4.6 mg/dL (2.6-6.0)
[2023-07-17] MEDS: Acetaminophen 500 MG Tablet 1000 MG PO (10:41)
--- NOTE | 2023-07-17 17:38 | OB.TRI.HP_ITS ---
HPI - General General Date of Service: 07/17/23 Chief Complaint: n/v, headache HPI Narrative NAPOLEON LOW, is a 28 F who presents at 27.1 with nausea and vomiting overnight, headache this morning. Maternal Data Information BUCKY Calculator Estimated Delivery Date Method Current WG Current Estimate 10/15/23 LMP (Certain) 27w 1d Other Estimates 10/12/23 Ultrasound #1 27w 4d PFSH PFSH Medical History Anxiety Depression Osteogenesis imperfecta Seasonal allergies Home Medications levothyroxine 25 mcg tablet (Synthroid) 25 mcg PO DAILY 08/25/22 [History Last Taken 07/17/23] hydroxyzine HCl 25 mg tablet 25 mg PO DAILY 02/27/23 [History Last Taken 07/17/23] multivit-min no.71-iron fum 28 mg-folate no.1 1 mg-dha 300 mg capsule (PNV- [place]) 1 cap PO DAILY 02/27/23 [History Last Taken 07/16/23] pyridoxine (vitamin B6) 25 mg tablet 25 mg PO TID 02/27/23 [History Last Taken 07/17/23] metoclopramide HCl 10 mg tablet (Reglan) 10 mg PO Q6H PRN nausea and vomiting #60 tabs 04/07/23 [Rx Last Taken Unknown] aspirin 81 mg tablet,delayed release 81 mg PO DAILY 05/22/23 [History Last Taken 07/15/23] docusate sodium 100 mg capsule (Colace) 100 mg PO BID 05/26/23 [History Last Taken 07/15/23] ondansetron 4 mg disintegrating tablet 4 mg PO Q6H PRN nausea and vomiting #60 tabs 07/09/23 [Rx Last Taken 07/17/23 04:00] famotidine 20 mg tablet (Pepcid) 20 mg PO DAILY #30 tabs 07/10/23 [Rx Last Taken 07/16/23] acetaminophen 500 mg tablet (Tylenol Extra Strength) 1,000 mg PO Q6H PRN headache 07/17/23 [History Last Taken 07/16/23 23:30 500 mg] Allergy/AdvReac Type Severity Reaction Status Date / Time sulfamethoxazole Allergy Severe Rash Verified 07/17/23 07:23 [From Bactrim] trimethoprim [From Bactrim] Allergy Severe Rash Verified 07/17/23 07:23 Family History Mother TIA (transient ischemic attack) Surgical History H/O sinus surgery History of dilatation and curettage Hx of cholecystectomy S/P Social History adopted: No household members: children number of children: 1 current occupational status: employed 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 current occupational exposures/hazards: No pets and animals: Yes (not managing the litterbox) pets and animals: cat(s) history of recent travel: No sexually active: Yes Smoking Status: Never smoker alcohol intake: never substance use type: does not use well-balanced diet: daily or most days caffeine: Yes Type: coffee Number of servings: 1 eating out: rarely or never during the past year weight has: increased > 10 lbs what type of physical activity do you participate in: walking frequency: 1-2 times per week gabriel/baptist: None seatbelt use: always do you feel safe at home: Yes additional social history: FOB [place] History 3 Elective abortions Hx Para 1 Spontaneous abortions 1 Hx # Term Pregnancies Ectopic pregnancies Hx # Pregnancies Multiple births # of living children 1 Past Pregnancies Del. Date Name GA/Weeks Outcome Route Bth Weight Infant Gen Labor Lgth Anesthesia Del [facility] Provider FOB 02/08/19 Tito 36 live - 6lbs Male spi [facility] Dr[facility] Berumen Delivery Date: 02/08/19 Last Updated by: Petrona Chow preeclampsia with severe features. Visit Details Expected Delivery Route/Plan RLTCS Plans Covid status: [] Flu vaccine: prior to Tdap vaccine: [] Rhogam: NA LARC form signed: [] Problem list reviewed and updated with the most current plan of care details and appropriate orders placed. Relevant counseling for the gestational age provided. Continue routine care and follow up unless otherwise noted in visit notes/problem list details OB Flowsheet Initial Weight: Not Recorded Date -?-?-?-?-?-?-?-?-?-?-?-?- EGA Weight BP Urine Prot -?-?-?-?-?-?-?-?-?-?-?-?- Glucose FHR FuHt Pres Dilation -?-?-?-?-?-?-?-?-?-?-?-?- Effaced St Visit Note 03/09/23 -?-?-?-?-?-?-?-?-?-?-?-?- 8w 4d 135 lb 110/80 -?-?-?-?-?-?-?-?-?-?-?-?- 160 -?-?-?-?-?-?-?-?-?-?-?-?- SM- CRL 2.1 cm c ons with LMP 04/02/23 -?-?-?-?--?-?-?-?-?-?-?-?- 12w 0d 145 lb 110/76 Trace -?-?-?-?-?-?-?-?-?-?-?-?- Negative 155 -?-?-?-?-?-?-?-?-?-?-?-?- LC- no vb/crampi ng. had increased vaginal burning. genital culture obtained. discharge white curdy. diflucan ordered 04/07/23 -?-?-?-?-?-?-?-?-?-?-?-?- 12w 5d 139 lb 8 oz 110/72 Trac e -?-?-?-?-?--?-?-?-?-?-?-?- Negative 161 -?-?-?-?-?-?-?-?-?-?-?-?- JV- still having extreme constipation and nausea. will dc zofran and add reglan. recommend continuing with the colace and miralax, add warm prune juice and a little caffeine (hot tea is best) 05/05/23 -?-?-?-?-?-?-?-?-?-?-?-?- 16w 5d 148 lb 4 oz 112/68 Nega tive -?-?--?-?-?-?-?-?-?-?-?-?- Negative 154 -?-?-?-?-?-?-?-?-?-?-?-?- MH-No VB. Tried monistat7 for yeast and persists. Doesn't usually respond to monistat. Terazol sent. Refill zofran. [facility] US scheduled 05/22/23 -?-?-?-?-?-?-?-?-?-?-?-?- 19w 1d 152 lb 4 oz 119/72 Nega tive -?-?-?-?-?-?-?-?-?-?-?-?- Negative 155 -?-?-?-?-?-?-?-?-?-?-?-?- kw- work in for vaginal burning and odor. x 2 weeks. went to PCP and was given clindamycin. no changes in vaginal discharge. genital culture, urine culture, and GATO BV today. 05/26/23 -?-?-?-?-?-?-?-?-?-?-?-?- 19w 5d 154 lb 107/75 Negative -?-?-?-?-?-?-?-?-?-?-?-?- Negative 150 -?-?-?-?-?-?-?-?-?--?-?-?- KW- work in for constipation. nl labs reviewed. stop zofran, increase fluids, green leafy veggies, continue colace. call in thursday if no BM. Has follow up US on 06/07. 06/03/23 -?-?-?-?-?-?-?-?-?-?-?-?- 20w 6d 155 lb 4 oz 121/72 Nega tive -?-?-?-?-?-?-?-?-?-?-?-?- Negative 155 -?-?-?-?-?-?-?-?-?-?-?-?- JV- no lof, vagi nal bleeding, or dec fm. still has vaginal irritation. on exam there is a discoloration around the urethra but no lacerations or ulcerations. red top collected. recommend feminine probiotic and vagisil. 07/03/23 -?-?-?-?-?-?-?-?-?-?-?-?- 25w 1d 161 lb 2 oz 104/72 Nega tive -?-?-?-?-?-?-?-?-?-?-?-?- Negative 145 26 -?-?-?-?-?-?-?-?-?-?-?-?- kw- no vb/lof/ct x. good fm. [facility] recommends delivery at 36-37 weeks. 28 week labs discussed. To see physicians for appts for high risk . 07/09/23 -?-?-?-?-?-?-?-?-?-?-?-?- 26w 0d 162 lb 8 oz 115/77 Nega tive -?-?-?-?-?-?-?-?-?-?-?-?- Negative 150 -?-?-?-?-?-?-?-?-?-?-?-?- kw- no vb/lof/ct x. good fm. having some visual changes and headaches. N/V. trying to stay hydrated. Pre e labs ordered. kw- no vb/lof/ctx. good fm. having some visual changes and headaches. N/V. trying to stay hydrated. Pre e labs ordered. zofran ordered. 07/16/23 -?-?-?-?-?-?-?-?-?-?-?-?- 27w 0d 165 lb 6 oz 123/73 Nega tive -?-?-?-?-?-?-?-?-?-?-?-?- Negative -?-?-?-?-?-?-?-?-?-?-?-?- JV- patient is h ere today for more vaginal concerns. She denies discharge or itching but more burning and discomfort during intercourse. on exam there is some irritation and swelling of the vaginal tissue without discharge or odor. recommend ice pack pads and replens lubricant. There have been 3 cultures that were collected already this that were negative. request for rpt section sent. 36-37 weeks with steroids to be given at 35 weeks. NST FHR Rate Baby A Baseline: 140 Variability:: Moderate Accelerations:: 15 x 15 Decelerations:: None NST Reactive:: Yes FHR Category:: Category I Assessment & Plan (1) Nausea & vomiting: COMMENT: s/p 1L LR and IV zofran. tylenol for headache with improved symptoms PEC labs negative safe for dc home PLAN: Patient presents for triage evaluation secondary to nausea, vomiting and headache. hx of PEC labs, PEC labs obtained and were negative. FHT: Moderate variability reactive no decelerations category I tracing [place]: no Contractions Assessment and plan: Reactive NST, reassuring maternal and status patient discharged to home to follow-up in office, call if need additional nausea management. See problem list details for additional plan information. Charges/Coding Procedures Urinary/Genital [id number]: 36355-35 non-stress test Interp Multi Select Codes Urinary/Genital Urinary/Genital CPT Codes: 50872-69 non-stress test Interp
== END 2023-07-17 11:56 | disposition home or self-care (01) ==
LOC: WPOUT 07:16 → WP 07:17
PROVIDERS: Registered Nurse; PCP Nurse Practitioner Family; Referring Provider Advanced Practice Midwife; Visit Provider Advanced Practice Midwife
DX: O21.9 Vomiting of pregnancy, unspecified (principal); Z3A.27 27 weeks gestation of pregnancy
CPT/HCPCS: 96374; 96361; 36415; 59025; 59050; 82565; 82570; 84156; 84450; 84460; 84550; 85027; 99221; J7120; G0378; J2405

== ENCOUNTER → 2023-07-29 | Outpatient (CLI) | payer MEDICAID, SELFPAY ==
[2023-07-29 08:52] LABS: Absolute Lymphocyte Count 0.81 X10^3/uL (0.83-4.51); Absolute Neutrophil Count 6.6 X10^3/uL (2.0-7.7); Basophil# 0.05 X10^3/uL; Basophil% 0.6 % (0-1); Eosinophil# 0.12 X10^3/uL; Eosinophils% 1.5 % (0-5); Hematocrit 33.6 % (37-47); Hemoglobin 11.4 g/dL (12.0-15.0); Lymphocyte # 0.81 X10^3/ul (0.83-4.51); Lymphocyte % 9.9 % (19-41); Mean Corp Hgb Conc 33.9 g/dL (32-36); Mean Corpuscular Hgb 30.7 pg (27.0-32.0); Mean Corpuscular Volume 90.6 fL (81-99); Mean Platelet Vol. 9.1 fl (6.2-12.0); Monocyte# 0.43 X10^3/uL; Monocyte% 5.3 % (0-10); NRBC Flagged by Analyzer 0 % (0-5); Neutrophil # 6.64 X10^3/uL (2.7-7.7); Neutrophil % 81.1 % (47-70); Platelet Count 263 K/mm3 (150-450); RBC Distribution Width CV 13.8 % (11.6-14.6); RBC Distribution Width SD 46.2 fl (35.1-43.9); Red Blood Count 3.71 M/mm3 (4.2-5.4); White Blood Count 8.2 K/mm3 (4.4-11.0)
[2023-07-29 09:28] LABS: Glucose Challenge Gest 1H 50g 206 mg/dL (70-140); Thyroid Stim Hormone (TSH) 0.91 uIU/mL (0.358-3.74)
[2023-07-29 10:14] LABS: HIV - WCH Non-Reactive (Nonreactive); Syphilis Antibodies Non-reactive
== END | disposition home or self-care (01) ==
LOC: PAVLAB 08:35
PROVIDERS: PCP Nurse Practitioner Family; Referring Provider Obstetrics & Gynecology; Visit Provider Obstetrics & Gynecology
DX: O99.280 Endocrine, nutritional and metabolic diseases complicating pregnancy, unspecified trimester (principal); Z3A.00 Weeks of gestation of pregnancy not specified; E03.9 Hypothyroidism, unspecified
CPT/HCPCS: 36415; 82950; 84443; 85025; 86703; 86780

== ENCOUNTER → 2023-08-12 | Outpatient (CLI) | payer MEDICAID, SELFPAY ==
--- NOTE | 2023-08-12 12:39 | ECHOD_ITS ---
Reason For Study: Osteogenesis Imperfecta Procedure This was a 2D Doppler, Color Flow transthoracic echocardiogram. Myocardial strain analysis was performed in this exam to aid in the assessment of cardiac function. Exam performed in department. Left Ventricle Normal LV size. The estimated ejection fraction is 60 %. No evidence for diastolic dysfunction. No regional wall motion abnormalities noted. Right Ventricle Normal RV size. Normal systolic function. Atria Normal left atrium. Normal right atrium. No doppler evidence for ASD. Mitral Valve There is no mitral valve stenosis. No mitral valve insufficiency. Tricuspid Valve There is no tricuspid stenosis. Mild tricuspid valve insufficiency. Pulmonary artery systolic pressure is 30-35 mmHg. Aortic Valve Trisinus/trileaflet aortic valve. There is no aortic stenosis. No aortic valve insufficiency. Pulmonic Valve There is no pulmonic valvular stenosis. No pulmonic valve insufficiency. Great Vessels Normal aortic root. Pericardium/Pleural No pericardial effusion. MMode/2D Measurements & Calculations LVIDd: 4.5 cm IVSd: 0.78 cm Ao root diam: 2.7 cm LVIDs: 3.3 cm LVPWd: 0.99 cm RVDd: 4.0 cm FS: 25.7 % LAV(MOD-bp): 25.5 ml LVAd ap4: 25.1 cm2 SV(MOD-sp4): 42.3 ml LAV(MOD-bp) Indexed: 15.0 ml/m2 LVLd ap4: 7.0 cm LAV(MOD-sp2): 25.4 ml EDV(MOD-sp4): 73.1 ml LAV(MOD-sp4): 23.9 ml EDV(sp4-el): 76.6 ml LVAs ap4: 14.1 cm2 LVLs ap4: 5.4 cm ESV(MOD-sp4): 30.8 ml ESV(sp4-el): 31.2 ml EF(MOD-sp4): 57.8 % EF(sp4-el): 59.3 % SV(sp4-el): 45.5 ml LA A4 area: 11.3 cm2 RA A4 area: 12.0 cm2 TAPSE: 2.3 cm Time Measurements MV dec time: 0.14 sec Doppler Measurements & Calculations MV E max keyonna: 78.1 cm/sec Ao V2 max: 142.6 cm/sec MV A max keyonna: 94.6 cm/sec MV dec slope: 559.8 cm/sec2 Ao max P.1 mmHg MV E/A: 0.83 Ao V2 mean: 112.0 cm/sec Ao mean P.3 mmHg Ao V2 VTI: 25.1 cm LV V1 max: 122.5 cm/sec PA V2 max: 105.9 cm/sec TR max keyonna: 264.9 cm/sec LV V1 max P.0 mmHg TR max P.1 mmHg ECHO/Echo Complete Interpretation Summary The estimated ejection fraction is 60 %. No evidence for diastolic dysfunction. Ordering Physician: Natasha Berumen Referring Physician: Hoda Gordillo Performed By: Shea Calvin, RAJ, RVT
== END | disposition home or self-care (01) ==
LOC: CVS 12:38
PROVIDERS: PCP Nurse Practitioner Family; Referring Provider Obstetrics & Gynecology; Visit Provider Obstetrics & Gynecology
DX: Q78.0 Osteogenesis imperfecta (principal)
CPT/HCPCS: 93306

== ENCOUNTER 2023-08-18 08:05 | Outpatient (RCR) | payer MEDICAID, SELFPAY | END 2023-08-21 23:59 | LOC: NS 08:05 | PROVIDERS: PCP Nurse Practitioner Family; Referring Provider Obstetrics & Gynecology; Visit Provider Obstetrics & Gynecology | DX: Z71.3 Dietary counseling and surveillance (principal); O24.419 Gestational diabetes mellitus in pregnancy, unspecified control | CPT/HCPCS: 97802 ==

== ENCOUNTER 2023-08-25 10:07 | Outpatient (RCR) | payer MEDICAID, SELFPAY | END 2023-09-20 23:59 | LOC: NS 10:07 | PROVIDERS: PCP Nurse Practitioner Family; Referring Provider Obstetrics & Gynecology; Visit Provider Obstetrics & Gynecology | DX: Z71.3 Dietary counseling and surveillance (principal); O24.419 Gestational diabetes mellitus in pregnancy, unspecified control | CPT/HCPCS: 97803 ==

== ENCOUNTER 2023-08-26 12:40 | Outpatient (CLI) | payer MEDICAID, SELFPAY ==
[2023-08-26] VITALS (8 sets, daily range): BP systolic 124; BP diastolic 75; PULSE 103–115; RESP 18; TEMP 37.1; O2SAT 96–98; BMI 33.6
[2023-08-26 14:07] LABS: Mucous, Urine 0 SEEN /hpf (<or=2+); Red Blood Cells-Urine 0 SEEN /hpf (0-5)
[2023-08-26 14:08] LABS: Color, Urine Yellow (Yellow); Glucose, Dipstick Normal (Normal); Ketone-Dipstick Negative (Negative); Leukocyte Esterase-Dipstick Negative /ul (Negative); Nitrite-Dipstick Negative (Negative); Occult Blood-Urine Negative /ul (Negative); Protein-Dipstick Negative (Negative); Urine Bilirubin Dipstick Negative (Negative); Urine Clarity Clear (Clear); Urine Urobilinogen Normal (Normal)
[2023-08-26 14:13] LABS: Bedside Glucose 83 mg/dL (74-106)
[2023-08-26 14:20] LABS: Squamous Epithelial Cells - UA 5-10 SEEN /hpf (5-10)
[2023-08-26 14:21] LABS: Amorphous Sediment 1+; Bacteria 1+ /hpf (None Seen); White Blood Cells 0-5 SEEN /hpf (0-5)
[2023-08-26 14:40] LABS: Fetal Fibronectin Negative; Record Kit Lot#, fFN H3011
[2023-08-26 15:06] LABS: Bedside Glucose 100 mg/dL (74-106)
== END 2023-08-26 15:45 | disposition home or self-care (01) ==
LOC: WPOUT 12:48 → WP 12:48
PROVIDERS: PCP Nurse Practitioner Family; Referring Provider Obstetrics & Gynecology; Visit Provider Obstetrics & Gynecology
DX: O24.419 Gestational diabetes mellitus in pregnancy, unspecified control (principal); Z3A.32 32 weeks gestation of pregnancy; Z79.890 Hormone replacement therapy; Z79.82 Long term (current) use of aspirin; Z79.899 Other long term (current) drug therapy; O99.613 Diseases of the digestive system complicating pregnancy, third trimester; K21.9 Gastro-esophageal reflux disease without esophagitis; O99.283 Endocrine, nutritional and metabolic diseases complicating pregnancy, third trimester; E03.9 Hypothyroidism, unspecified
CPT/HCPCS: 59025; 59050; 81001; 82731; 82962; 87086; 87088; 99221; G0378

== ENCOUNTER → 2023-09-08 | Outpatient (CLI) | payer MEDICAID, SELFPAY | END | disposition home or self-care (01) | PROVIDERS: PCP Nurse Practitioner Family; Referring Provider Obstetrics & Gynecology; Visit Provider Obstetrics & Gynecology | DX: N89.8 Other specified noninflammatory disorders of vagina (principal) | CPT/HCPCS: 87070; 87205 ==

== ENCOUNTER 2023-09-12 19:09 | Outpatient (CLI) | payer MEDICAID, SELFPAY ==
[2023-09-12 19:24] VITALS: PULSE 104; O2SAT 97
[2023-09-12 19:25] VITALS: BP 121/72; PULSE 103; TEMP 36.9
[2023-09-12 19:27] VITALS: BMI 33.5
[2023-09-12 19:40] VITALS: RESP 24
[2023-09-12 19:48] LABS: Color, Urine Yellow (Yellow); Glucose, Dipstick Normal (Normal); Ketone-Dipstick Negative (Negative); Leukocyte Esterase-Dipstick Negative /ul (Negative); Nitrite-Dipstick Negative (Negative); Occult Blood-Urine Negative /ul (Negative); Protein-Dipstick 15 mg/dl (Negative); Urine Bilirubin Dipstick Negative (Negative); Urine Clarity Clear (Clear); Urine Urobilinogen Normal (Normal)
[2023-09-12] MEDS: Lactated Ringers 1,000 ML 999 ML IV (20:30)
[2023-09-12] MEDS: 0.9% Saline Lock 10 ML Syringe IV ×2 (21:42→22:07)
[2023-09-12] MEDS: Morphine 4 MG/ML Syringe IV (22:07)
[2023-09-12] MEDS: Famotidine 20 MG Tablet PO (22:07)
[2023-09-12] MEDS: Ondansetron 4 MG/2 ML Vial IV (22:07)
[2023-09-12 22:16] VITALS: PULSE 107; RESP 21; TEMP 36.4; O2SAT 97
[2023-09-12 22:17] VITALS: BP 117/77; PULSE 100
[2023-09-12] MEDS: NIFEdipine 10 MG Capsule PO (23:17)
[2023-09-12] MEDS: Lactated Ringers 1,000 ML 100 ML IV (23:18)
[2023-09-13 01:54] VITALS: BP 100/55; PULSE 94; RESP 20; TEMP 36.5; O2SAT 96
[2023-09-13 03:48] VITALS: PULSE 99; RESP 20; TEMP 36.9; O2SAT 99
[2023-09-13 03:49] VITALS: BP 106/56; PULSE 96
[2023-09-13] MEDS: Acetaminophen 500 MG Tablet 1000 MG PO (03:52)
--- NOTE | 2023-09-13 06:36 | NURSING ---
pt voided nine times on this shift for this RN
[2023-09-13 06:46] LABS: Bedside Glucose 75 mg/dL (74-106)
[2023-09-13 07:00] VITALS: PULSE 92; O2SAT 99
[2023-09-13 08:19] VITALS: BP 101/60; PULSE 96; RESP 16; TEMP 36.8
--- NOTE | 2023-09-13 09:00 | OB.TRI.HP_ITS ---
HPI - General HPI Narrative NAPOLEON VALLES, is a 28 F who presents at 35.2 with painful contractions since 09/12/23 around 5pm. denied lof/vb. had good fm. is a planned repeat cs for 09/22/23 Maternal Data Information BUCKY Calculator Estimated Delivery Date Method Current WG Current Estimate 10/15/23 LMP (Certain) 35w 3d Other Estimates 10/12/23 Ultrasound #1 35w 6d PFSH PFSH Medical History Seasonal allergies Depression Anxiety Osteogenesis imperfecta Home Medications ?Medication ?Instructions ?Recorded ?Last Taken ?Type levothyroxine 25 mcg tablet 25 mcg PO DAILY 08/25/22 09/12/23 07:30 History (Synthroid) hydroxyzine HCl 25 mg tablet 25 mg PO DAILY 02/27/23 09/12/23 07:30 History multivit-min no.71-iron fum 28 1 cap PO DAILY 02/27/23 09/12/23 14:00 History mg-folate no.1 1 mg-dha 300 mg capsule (PNV-[place]) pyridoxine (vitamin B6) 25 mg 25 mg PO TID 02/27/23 08/26/23 07:00 History tablet 25 mg aspirin 81 mg tablet,delayed 81 mg PO DAILY 05/22/23 09/11/23 20:00 History release docusate sodium 100 mg capsule 100 mg PO BID 05/26/23 09/11/23 20:00 History (Colace) ondansetron 4 mg disintegrating 4 mg PO Q6H PRN nausea and 07/09/23 09/12/23 10:00 Rx tablet vomiting #60 tabs famotidine 20 mg tablet (Pepcid) 20 mg PO DAILY #30 tabs 07/10/23 09/12/23 07:30 Rx acetaminophen 500 mg tablet 1,000 mg PO Q6H PRN headache 07/17/23 09/11/23 09:00 History (Tylenol Extra Strength) flash glucose scanning reader #1 ea 07/29/23 Unknown Rx (FreeStyle Rachel 2 [place]) glycerin (adult) 1 supp DC QD-BID PRN constipation 07/29/23 Unknown Rx #25 ea flash glucose sensor (FreeStyle #1 ea 08/03/23 Unknown Rx Rachel 2 Sensor kit) promethazine 12.5 mg tablet 12.5 mg PO TID PRN nausea and 08/05/23 Unknown Rx vomiting #30 tabs pen needle, diabetic 29 gauge x #1 ea 08/24/23 Unknown Rx 1/2 (Comfort EZ Pen [place]) insulin NPH isoph U-100 human 100 18 unit subcut DIRECTED 09/08/23 09/12/23 07:30 History unit/mL (3 mL) subcutaneous pen (Novolin N FlexPen) Allergy/AdvReac Type Severity Reaction Status Date / Time sulfamethoxazole (From Allergy Severe Rash Verified 09/12/23 19:27 Bactrim) trimethoprim (From Bactrim) Allergy Severe Rash Verified 09/12/23 19:27 Family History Mother TIA (transient ischemic attack) Surgical History H/O sinus surgery S/P History of dilatation and curettage Hx of cholecystectomy Social History adopted: No household members: children number of children: 1 current occupational status: employed 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 current occupational exposures/hazards: No pets and animals: Yes (not managing the litterbox) pets and animals: cat(s) history of recent travel: No sexually active: Yes Smoking Status: Never smoker alcohol intake: never substance use type: does not use well-balanced diet: daily or most days caffeine: Yes Type: coffee Number of servings: 1 eating out: rarely or never during the past year weight has: increased > 10 lbs what type of physical activity do you participate in: walking frequency: 1-2 times per week gabriel/baptist: None seatbelt use: always do you feel safe at home: Yes additional social history: FOB Flynn History 3 Elective abortions Hx Para 1 Spontaneous abortions 1 Hx # Term Pregnancies Ectopic pregnancies Hx # Pregnancies Multiple births # of living children 1 Past Pregnancies Del. Date Name GA/Weeks Outcome Route Bth Weight Infant Gen Labor Lgth Anesthesia Del Locatn Provider FOB 02/08/19 Tito 36 live - 6lbs Male spi [facility] Dr. Berumen Delivery Date: 02/08/19 Last Updated by: Petrona Chow preeclampsia with severe features. Visit Details Expected Delivery Route/Plan RLTCS Plans Covid status: [] Flu vaccine: prior to Tdap vaccine: [] Rhogam: NA LARC form signed: [] Problem list reviewed and updated with the most current plan of care details and appropriate orders placed. Relevant counseling for the gestational age provided. Continue routine care and follow up unless otherwise noted in visit notes/problem list details OB Flowsheet Initial Weight: Not Recorded Date -?-?-?-?-?-?-?-?-?-?-?-?- EGA Weight BP Urine Prot -?-?-?-?-?-?-?-?-?-?-?-?- Glucose FHR FuHt Pres Dilation -?-?-?-?-?-?-?-?-?-?-?-?- Effaced St Visit Note 03/09/23 -?-?-?-?-?-?-?-?-?-?-?-?- 8w 4d 135 lb 110/80 -?-?-?-?-?-?-?-?-?-?-?-?- 160 -?-?-?-?-?-?-?-?-?-?-?-?- SM- CRL 2.1 cm c ons with LMP 04/02/23 -?-?-?-?-?-?-?-?-?-?-?-?- 12w 0d 145 lb 110/76 Trace -?-?-?-?-?-?-?-?-?-?-?-?- Negative 155 -?-?-?-?-?-?-?-?-?-?-?-?- LC- no vb/crampi ng. had increased vaginal burning. genital culture obtained. discharge white curdy. diflucan ordered 04/07/23 -?-?-?-?-?-?-?-?-?-?-?-?- 12w 5d 139 lb 8 oz 110/72 Trac e -?-?-?-?-?-?-?-?-?-?-?-?- Negative 161 -?-?-?-?-?-?-?-?-?-?-?-?- JV- still having extreme constipation and nausea. will dc zofran and add reglan. recommend continuing with the colace and miralax, add warm prune juice and a little caffeine (hot tea is best) 05/05/23 -?-?-?-?-?-?-?-?-?-?-?-?- 16w 5d 148 lb 4 oz 112/68 Nega tive -?-?-?-?-?-?-?-?-?-?-?-?- Negative 154 -?-?-?-?-?-?-?-?-?-?-?-?- MH-No VB. Tried monistat7 for yeast and persists. Doesn't usually respond to monistat. Terazol sent. Refill zofran. [facility] US scheduled 05/22/23 -?-?-?-?-?-?-?-?-?-?-?-?- 19w 1d 152 lb 4 oz 119/72 Nega tive -?-?-?-?-?-?--?-?-?-?-?-?- Negative 155 -?-?-?-?-?-?-?-?-?-?-?-?- kw- work in for vaginal burning and odor. x 2 weeks. went to PCP and was given clindamycin. no changes in vaginal discharge. genital culture, urine culture, and GATO BV today. 05/26/23 -?-?-?-?-?-?-?-?-?-?-?-?- 19w 5d 154 lb 107/75 Negative -?-?-?-?-?-?-?-?-?-?-?-?- Negative 150 -?-?-?-?-?-?-?-?-?-?-?-?- KW- work in for constipation. nl labs reviewed. stop zofran, increase fluids, green leafy veggies, continue colace. call in thursday if no BM. Has follow up US on 06/07. 06/03/23 -?-?-?-?-?-?-?-?-?-?-?-?- 20w 6d 155 lb 4 oz 121/72 Nega tive -?-?-?-?-?-?-?-?-?-?-?-?- Negative 155 -?-?-?-?-?-?-?-?-?-?-?-?- JV- no lof, vagi nal bleeding, or dec fm. still has vaginal irritation. on exam there is a discoloration around the urethra but no lacerations or ulcerations. red top collected. recommend feminine probiotic and vagisil. 07/03/23 -?-?-?-?-?-?-?-?-?-?-?-?- 25w 1d 161 lb 2 oz 104/72 Nega tive -?-?-?-?-?-?-?-?-?-?-?-?- Negative 145 26 -?-?-?-?-?-?-?-?-?-?-?-?- kw- no vb/lof/ct x. good fm. [facility] recommends delivery at 36-37 weeks. 28 week labs discussed. To see physicians for appts for high risk . 07/09/23 -?-?-?-?-?-?-?-?-?-?-?-?- 26w 0d 162 lb 8 oz 115/77 Nega tive -?-?-?-?-?-?-?-?-?-?-?-?- Negative 150 -?-?-?-?-?-?-?-?-?-?-?-?- kw- no vb/lof/ct x. good fm. having some visual changes and headaches. N/V. trying to stay hydrated. Pre e labs ordered. kw- no vb/lof/ctx. good fm. having some visual changes and headaches. N/V. trying to stay hydrated. Pre e labs ordered. zofran ordered. 07/16/23 -?-?-?-?-?-?-?-?-?-?-?-?- 27w 0d 165 lb 6 oz 123/73 Nega tive -?-?-?-?-?-?-?-?-?-?-?-?- Negative -?-?-?-?-?-?-?-?-?-?-?-?- JV- patient is h ere today for more vaginal concerns. She denies discharge or itching but more burning and discomfort during intercourse. on exam there is some irritation and swelling of the vaginal tissue without discharge or odor. recommend ice pack pads and replens lubricant. There have been 3 cultures that were collected already this that were negative. request for rpt section sent. 36-37 weeks with steroids to be given at 35 weeks. 07/29/23 -?-?-?-?-?-?-?-?-?-?-?--?- 28w 6d 164 lb 4 oz 108/77 Nega tive -?-?-?-?-?-?-?-?-?-?-?-?- Negative 147 30 -?-?-?-?-?-?-?-?-?-?-?-?- JV- pt did her 1 hr today (results pending) she complains of no bm x 5 days. only drinking about 3 8 oz cups of water + caffeine in am. rx for suppository sent, recommend increasing water to at least 60 oz a day. 08/03/23 -?-?-?-?-?-?-?-?-?-?-?-?- 29w 4d 164 lb 4 oz 124/73 Nega tive -?-?-?-?-?-?-?-?-?-?-?-?- Negative 140 -?-?-?-?-?-?-?-?-?-?-?-?- JV - starting me tformin for elevated glucose levels. needs new disc monitor and needs to see a nutrition expert to know how to eat better. still no BM x 10 days. starting miralax bowel prep + MOM. recommending sugar free gatorage to mix with the miralax. NSTs twice weekly ordered. has f/u us with MFM . need ror for echo results at [facility]. 08/06/23 -?-?-?-?-?-?-?-?-?-?-?-?- 30w 0d 162 lb 6 oz 118/78 -?-?-?-?-?-?-?-?-?-?-?-?- 140 -?-?-?-?-?-?-?-?-?-?-?-?- - BS reveiwed, fastings still elevated but she isn't toelrating metformin at night she is vomiting it up- will try taking it with pepcid and tums, if still happens will try metformin ER in am and if BS not controlled by thursday recommend starting NPH atnight. 08/13/23 -?-?-?-?-?-?-?-?-?-?-?-?- 31w 0d 165 lb 115/73 Negative -?-?-?-?-?-?-?-?-?-?-?-?- Negative 140 -?-?-?-?-?-?-?-?-?-?-?-?- - BS reviewed some are dipping lower, still needs to see nutritonisit 08/18/23 -?-?-?-?-?-?-?-?-?-?-?-?- 31w 5d 168 lb 116/75 Negative -?-?-?-?-?-?-?-?-?-?-?-?- Negative 140 -?-?-?-?-?-?-?-?-?-?-?-?- - saw nutritio n today, having gi side effects, plan to follow nutritional plan only no medication and then will fu thursday if elevated BS will start insulin 08/21/23 -?-?-?-?-?-?-?-?-?-?-?-?- 32w 1d 166 lb 112/77 Negative -?-?-?-?-?-?-?-?-?-?-?-?- Negative 150 -?-?-?-?-?-?-?-?-?-?-?-?- KW- NST only-lisa ctive. BS reviewed and elevated [id number]. postprandial under 120. discussed with SM. Will send in insulin to start-call office if add itional edu needed. 08/25/23 -?-?-?-?-?-?-?-?-?-?-?-?- 32w 5d 166 lb 111/74 Negative -?-?-?-?-?-?-?-?-?-?-?-?- Negative 145 -?-?-?-?-?-?-?-?-?-?--?-?- KW- NST only. re active. Started insulin last night and had several low sugars throughout night. encourage protein before bed. To call office in AM if continues to have lows overnight tonight. discussed with SM and referral to suggested. 08/28/23 -?-?-?-?-?-?-?-?-?-?-?-?- 33w 1d 165 lb 4 oz 127/77 Nega tive -?-?-?-?-?-?-?-?-?-?-?-?- Negative 150 -?-?-?-?-?-?-?-?-?-?-?-?- SM- NST, seeing endocrine 08/31/23 -?-?-?-?-?-?-?-?-?-?-?-?- 33w 4d 169 lb 6 oz 114/74 Nega tive -?-?-?-?-?-?-?-?-?-?-?-?- Negative 150 -?-?-?-?-?-?-?-?-?-?-?-?- SM- no vb lof go od fm no regular ctx, saw endcorine and new insulin regimen prescribed 09/03/23 -?-?-?-?-?-?-?-?-?-?-?-?- 34w 0d 166 lb 8 oz 115/74 Nega tive -?-?-?-?-?-?-?-?-?-?-?-?- Negative 140 -?-?-?-?-?-?-?-?-?-?-?-?- SM- no vb lof go od fm no regular ctx BS controlled by . 09/08/23 -?-?-?-?-?-?-?-?-?-?-?-?- 34w 5d 166 lb 2 oz 113/77 Nega tive -?-?-?-?-?-?-?-?-?-?-?-?- Negative 145 -?-?-?-?-?-?-?-?-?-?-?-?- JV- Has some fas ting levels in the 50's. Dr. Arevalo told her to eat something when the fasting levels dip below 55. NST Reactive. has vaginal irritation again. culture collected. 09/11/23 -?-?-?-?-?-?-?-?-?-?-?-?- 35w 1d 167 lb 2 oz 113/72 Nega tive -?-?-?-?-?-?-?-?-?-?-?-?- Negative 140 -?-?-?-?-?-?-?-?-?-?-?-?- JV- nST is react manjit today. [facility] was called to add her growth us on thursday to a growth + BPP. SHe will then return on Thursday to sign consent with for section and for NST. Physical Exam Const alert, oriented x3 and no apparent distress Resp normal respiratory effort, normal air movement, no retractions and no use of accessory muscles Cardio regular rate and regular rhythm GI soft to palpation and non-tender Inspection: Palpation: soft Rectal Exam: deferred no CVA tenderness and external exam normal Bimanual Exam - Vag & Uterus: uterus non-tender and other gravid uterus, normal for gestational age OB / External & Speculum: Negative for herpetic lesions Manual OB Exam: estimated gestational size appropriate and presentation cephalic Amniotic Fluid: no amniotic fluid noted Extremity normal to inspection and full ROM Neuro Motor Exam: strength 5/5 throughout and muscle tone normal throughout Deep Tendon Reflexes: Rt Patellar (L4): 2+ and Lt Patellar (L4): 2+ NST FHR Rate Baby A Baseline: 135 Variability:: Moderate Accelerations:: 15 x 15 Decelerations:: None NST Reactive:: Yes FHR Category:: Category I Assessment & Plan (1) Uterine contractions: COMMENT: unchanged vaginal exam, less painful contractions. PLAN: Patient presents for triage evaluation secondary to uterine contractions FHT: Moderate variability reactive no decelerations category I tracing Fay: irregular Contractions Assessment and plan: Reactive NST, reassuring maternal and status patient discharged to home to follow-up in office with labor precautions reviewed. See problem list details for additional plan information. Charges/Coding Visit Charges OBSV E&M: 06599 Observ/hosp same date L2 Procedures Urinary/Genital [id number]: 87623-25 non-stress test Interp Multi Select Codes Urinary/Genital Urinary/Genital CPT Codes: 07552-52 non-stress test Interp
== END 2023-09-13 09:01 | disposition home or self-care (01) ==
LOC: WPOUT 19:14 → WP 19:14
PROVIDERS: PCP Nurse Practitioner Family; Referring Provider Registered Nurse; Visit Provider Registered Nurse
DX: O47.03 False labor before 37 completed weeks of gestation, third trimester (principal); Z79.4 Long term (current) use of insulin; Z3A.35 35 weeks gestation of pregnancy; Z79.82 Long term (current) use of aspirin; Z79.899 Other long term (current) drug therapy; O99.343 Other mental disorders complicating pregnancy, third trimester; F32.A Depression, unspecified; F41.9 Anxiety disorder, unspecified; Z79.890 Hormone replacement therapy; Z79.84 Long term (current) use of oral hypoglycemic drugs
CPT/HCPCS: 96374; 96375; 96361 ×2; 59025; 59050; 81002; 82962; 99221; J7120; A4216; G0378; J2405

== ENCOUNTER 2023-09-21 15:09 | Outpatient (CLI) | payer MEDICAID, SELFPAY ==
[2023-09-21 15:24] VITALS: RESP 16; TEMP 36; BMI 33.7
[2023-09-21 15:27] VITALS: BP 121/84; PULSE 107
--- NOTE | 2023-09-21 15:36 | US_ITS ---
EXAM: US BIOPHYSICAL PROFILE WITHOUT NON-STRESS TESTING CLINICAL INDICATION: decreased movement TECHNIQUE: Real-time ultrasound of the maternal pelvis for biophysical profile evaluation with image documentation. COMPARISON: No relevant prior studies available. FINDINGS: BREATHING MOVEMENTS: Present. Score 2/2. GROSS BODY MOVEMENTS: Present. Score 2/2. TONE: Present. Score 2/2. QUALITATIVE AMNIOTIC FLUID VOLUME: Amniotic fluid index is 14.3 cm. HEART RATE: cardiac rate is 153 bpm. PRESENTATION: Cephalic presentation. PLACENTA: Anterior placenta with grade 2 maturity change. US/Biophysical Prof W/O Non Stres IMPRESSION: No acute findings. Normal biophysical profile with score of 8/8. Electronically Signed: Hector Dennison MD at 16:52 EDT ,
[2023-09-21] MEDS: Lactated Ringers 1,000 ML 999 ML IV (17:15)
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
[2023-09-21 23:04] VITALS: BP 131/77; PULSE 89; RESP 18; TEMP 36.3; O2SAT 99
== END 2023-09-21 17:22 | disposition home or self-care (01) ==
LOC: WPOUT 15:16 → WP 15:23
PROVIDERS: Referring Provider Advanced Practice Midwife; Visit Provider Advanced Practice Midwife
DX: O36.8130 Decreased fetal movements, third trimester, not applicable or unspecified (principal); O24.414 Gestational diabetes mellitus in pregnancy, insulin controlled; O23.593 Infection of other part of genital tract in pregnancy, third trimester; O99.613 Diseases of the digestive system complicating pregnancy, third trimester; K21.9 Gastro-esophageal reflux disease without esophagitis; O21.9 Vomiting of pregnancy, unspecified; O99.283 Endocrine, nutritional and metabolic diseases complicating pregnancy, third trimester; E03.9 Hypothyroidism, unspecified; O99.343 Other mental disorders complicating pregnancy, third trimester; F41.9 Anxiety disorder, unspecified; O99.891 Other specified diseases and conditions complicating pregnancy; Q78.0 Osteogenesis imperfecta; Z3A.36 36 weeks gestation of pregnancy
CPT/HCPCS: 96360; 59025; 59050; 76819; 99221; J7120; G0378

== ENCOUNTER 2023-09-25 14:24 | Outpatient (CLI) | payer MEDICAID, SELFPAY ==
[2023-09-25] VITALS (15 sets, daily range): BP systolic 111–115; BP diastolic 64–69; PULSE 92–113; RESP 16; TEMP 36.2; O2SAT 93–98; BMI 33.8
[2023-09-25 14:56] LABS: Hematocrit 36.4 % (37-47); Hemoglobin 12.6 g/dL (12.0-15.0); Mean Corp Hgb Conc 34.6 g/dL (32-36); Mean Corpuscular Hgb 30.8 pg (27.0-32.0); Mean Platelet Vol. 9.7 fl (6.2-12.0); Platelet Count 278 K/mm3 (150-450); RBC Distribution Width CV 13.3 % (11.6-14.6); RBC Distribution Width SD 43.8 fl (35.1-43.9); Red Blood Count 4.09 M/mm3 (4.2-5.4); White Blood Count 8.1 K/mm3 (4.4-11.0)
[2023-09-25 15:11] LABS: Bedside Glucose 74 mg/dL (74-106)
[2023-09-25 15:13] LABS: Protein, Urine (Random) 22.7 mg/dL (<11.9); Protein:Creat Ratio 197 mg/g CRE (0-200)
[2023-09-25 15:15] LABS: AST(SGOT) 13 U/L (15-37); Alanine Aminotransfer ALT/SGPT 19 U/L (13-56); Creatinine, Serum 0.43 mg/dL (0.55-1.02); EST Glomerular Filtration Rate 187 mL/min (>60); Est Glom Filt Rate - Afr Amer 227 mL/min (>60); Estimated Creatinine Clearance 179.01 ml/min
[2023-09-25] MEDS: Ondansetron 4 MG/2 ML Vial IV (15:41)
--- NOTE | 2023-09-25 15:42 | US_ITS ---
STUDY: OBSTETRICAL ULTRASOUND - BIOPHYSICAL PROFILE REASON FOR EXAM: Female, 28 years old GDM -- pt currently in OB LMP: PRIOR ULTRASOUND: 09/21/2023 TECHNIQUE: Transabdominal TECHNICAL QUALITY: Adequate. FINDINGS: There is a single intrauterine fetus. The fetus is in a cephalic presentation. There is demonstrated cardiac activity with a heart rate of 136 bpm. There is a normal amniotic fluid volume. The largest amniotic fluid pocket measures 3.6 cm. The amniotic fluid index (NORRIS) is 11.7 cm. The placenta is anterior in location and is not low lying. There are Grade 2 placental changes. BIOPHYSICAL PROFILE: Breathing Movements (FBM): 2 Gross Body Movements (GBM): 2 Tone (FT): 2 Amniotic Fluid Volume (AFV): 2 TOTAL SCORE: 8 / 8 US/Biophysical Prof W/O Non Stres IMPRESSION: Normal biophysical profile of 10/28. Electronically Signed: Timoteo Castro MD at 17:08 EDT ,
--- NOTE | 2023-09-25 16:59 | OB.TRI.HP_ITS ---
HPI - General HPI Narrative NAPOLEON VALLES, is a 28 F who presents with FLANAGAN, normal bps and no vb lof admits good fm having some nausea. normal bs and labs. Maternal Data Information BUCKY Calculator Estimated Delivery Date Method Current WG Current Estimate 10/15/23 LMP (Certain) 37w 2d Other Estimates 10/12/23 Ultrasound #1 37w 5d PFSH PFSH Medical History Seasonal allergies Depression Anxiety Osteogenesis imperfecta Home Medications ?Medication ?Instructions ?Recorded ?Last Taken ?Type levothyroxine 25 mcg tablet 25 mcg PO DAILY 08/25/22 09/25/23 History (Synthroid) hydroxyzine HCl 25 mg tablet 25 mg PO DAILY 02/27/23 09/25/23 History multivit-min no.71-iron fum 28 1 cap PO DAILY 02/27/23 09/25/23 History mg-folate no.1 1 mg-dha 300 mg capsule (PNV-[place]) aspirin 81 mg tablet,delayed 81 mg PO DAILY 05/22/23 09/24/23 History release docusate sodium 100 mg capsule 100 mg PO BID 05/26/23 09/24/23 History (Colace) ondansetron 4 mg disintegrating 4 mg PO Q6H PRN nausea and 07/09/23 09/12/23 10:00 Rx tablet vomiting #60 tabs acetaminophen 500 mg tablet 1,000 mg PO Q6H PRN headache 07/17/23 09/25/23 History (Tylenol Extra Strength) flash glucose scanning reader #1 ea 07/29/23 Unknown Rx (FreeStyle Rachel 2 Thida) flash glucose sensor (FreeStyle #1 ea 08/03/23 Unknown Rx Rachel 2 Sensor kit) pen needle, diabetic 29 gauge x #1 ea 08/24/23 Unknown Rx 1/2 (Comfort EZ Pen [place]) insulin NPH isoph U-100 human 100 18 unit subcut DIRECTED 09/08/23 09/25/23 History unit/mL (3 mL) subcutaneous pen (Novolin N FlexPen) famotidine 20 mg tablet (Pepcid) 20 mg PO Q12H #60 tabs 09/25/23 09/25/23 Rx Allergy/AdvReac Type Severity Reaction Status Date / Time sulfamethoxazole (From Allergy Severe Rash Verified 09/25/23 14:41 Bactrim) trimethoprim (From Bactrim) Allergy Severe Rash Verified 09/25/23 14:41 Family History Mother TIA (transient ischemic attack) Surgical History H/O sinus surgery S/P History of dilatation and curettage Hx of cholecystectomy Social History adopted: No household members: children number of children: 1 current occupational status: employed 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 current occupational exposures/hazards: No pets and animals: Yes (not managing the litterbox) pets and animals: cat(s) history of recent travel: No sexually active: Yes Smoking Status: Never smoker alcohol intake: never substance use type: does not use well-balanced diet: daily or most days caffeine: Yes Type: coffee Number of servings: 1 eating out: rarely or never during the past year weight has: increased > 10 lbs what type of physical activity do you participate in: walking frequency: 1-2 times per week gabriel/cheondoism: None seatbelt use: always do you feel safe at home: Yes additional social history: FOB [place] History 3 Elective abortions Hx Para 1 Spontaneous abortions 1 Hx # Term Pregnancies Ectopic pregnancies Hx # Pregnancies Multiple births # of living children 1 Past Pregnancies Del. Date Name GA/Weeks Outcome Route Bth Weight Infant Gen Labor Lgth Anesthesia Del [facility] Provider FOB 02/08/19 Tito 36 live - 6lbs Male spi [facility] Dr. Berumen Delivery Date: 02/08/19 Last Updated by: Petrona Chow preeclampsia with severe features. Visit Details Expected Delivery Route/Plan RLTCS Plans Covid status: [] Flu vaccine: prior to Tdap vaccine: [] Rhogam: NA LARC form signed: [] Problem list reviewed and updated with the most current plan of care details and appropriate orders placed. Relevant counseling for the gestational age provided. Continue routine care and follow up unless otherwise noted in visit notes/problem list details OB Flowsheet Initial Weight: Not Recorded Date -?-?-?-?-?-?-?-?-?-?-?-?- EGA Weight BP Urine Prot -?-?-?-?-?-?-?-?-?-?-?-?- Glucose FHR FuHt Pres Dilation -?-?-?-?-?-?-?-?-?-?-?-?- Effaced St Visit Note 03/09/23 -?-?-?-?-?-?-?-?-?-?-?-?- 8w 4d 135 lb 110/80 -?-?-?-?-?-?-?-?-?-?-?-?- 160 -?-?-?-?-?-?-?-?-?--?-?-?- SM- CRL 2.1 cm c ons with LMP 04/02/23 -?-?-?-?-?-?-?-?-?-?-?-?- 12w 0d 145 lb 110/76 Trace -?-?-?-?-?-?-?-?-?-?-?-?- Negative 155 -?-?-?-?-?-?-?-?-?-?-?-?- LC- no vb/crampi ng. had increased vaginal burning. genital culture obtained. discharge white curdy. diflucan ordered 04/07/23 -?-?-?-?-?-?-?-?-?-?-?-?- 12w 5d 139 lb 8 oz 110/72 Trac e -?-?-?-?-?-?-?-?-?-?-?-?- Negative 161 -?-?-?-?-?-?-?-?-?-?-?-?- JV- still having extreme constipation and nausea. will dc zofran and add reglan. recommend continuing with the colace and miralax, add warm prune juice and a little caffeine (hot tea is best) 05/05/23 -?-?-?-?-?-?-?-?-?-?-?-?- 16w 5d 148 lb 4 oz 112/68 Nega tive -?-?-?-?-?-?-?-?-?-?-?-?- Negative 154 -?-?-?-?-?-?-?-?-?-?-?-?- MH-No VB. Tried monistat7 for yeast and persists. Doesn't usually respond to monistat. Terazol sent. Refill zofran. [facility] US scheduled 05/22/23 -?-?-?-?-?-?-?-?-?-?-?-?- 19w 1d 152 lb 4 oz 119/72 Nega tive -?-?-?-?-?-?-?-?-?-?-?-?- Negative 155 -?-?-?-?-?-?-?-?-?-?-?-?- kw- work in for vaginal burning and odor. x 2 weeks. went to PCP and was given clindamycin. no changes in vaginal discharge. genital culture, urine culture, and GATO BV today. 05/26/23 -?-?-?-?-?-?-?-?-?-?-?-?- 19w 5d 154 lb 107/75 Negative -?-?-?-?-?-?-?-?-?-?-?-?- Negative 150 -?-?-?-?-?-?-?-?-?-?-?-?- KW- work in for constipation. nl labs reviewed. stop zofran, increase fluids, green leafy veggies, continue colace. call in thursday if no BM. Has follow up US on 06/07. 06/03/23 -?-?-?-?-?-?-?-?-?-?-?-?- 20w 6d 155 lb 4 oz 121/72 Nega tive -?-?-?-?-?-?-?-?-?-?-?--?- Negative 155 -?-?-?-?-?-?-?-?-?-?-?-?- JV- no lof, vagi nal bleeding, or dec fm. still has vaginal irritation. on exam there is a discoloration around the urethra but no lacerations or ulcerations. red top collected. recommend feminine probiotic and vagisil. 07/03/23 -?-?-?-?-?-?-?-?-?-?-?-?- 25w 1d 161 lb 2 oz 104/72 Nega tive -?-?-?-?-?-?-?-?-?-?-?-?- Negative 145 26 -?-?-?-?-?-?-?-?-?-?-?-?- kw- no vb/lof/ct x. good fm. [facility] recommends delivery at 36-37 weeks. 28 week labs discussed. To see physicians for appts for high risk . 07/09/23 -?-?-?-?-?-?-?-?-?-?-?-?- 26w 0d 162 lb 8 oz 115/77 Nega tive -?-?-?-?-?-?-?-?-?-?-?-?- Negative 150 -?-?-?-?-?-?-?-?-?-?-?-?- kw- no vb/lof/ct x. good fm. having some visual changes and headaches. N/V. trying to stay hydrated. Pre e labs ordered. kw- no vb/lof/ctx. good fm. having some visual changes and headaches. N/V. trying to stay hydrated. Pre e labs ordered. zofran ordered. 07/16/23 -?-?-?-?-?-?-?-?-?-?-?-?- 27w 0d 165 lb 6 oz 123/73 Nega tive -?-?-?-?-?-?-?-?-?-?-?-?- Negative -?-?-?-?-?-?-?-?-?-?-?-?- JV- patient is h ere today for more vaginal concerns. She denies discharge or itching but more burning and discomfort during intercourse. on exam there is some irritation and swelling of the vaginal tissue without discharge or odor. recommend ice pack pads and replens lubricant. There have been 3 cultures that were collected already this that were negative. request for rpt section sent. 36-37 weeks with steroids to be given at 35 weeks. 07/29/23 -?-?-?-?-?-?-?-?-?-?-?-?- 28w 6d 164 lb 4 oz 108/77 Nega tive -?-?-?-?-?-?-?-?-?-?-?-?- Negative 147 30 -?-?-?-?-?-?-?-?-?-?-?-?- JV- pt did her 1 hr today (results pending) she complains of no bm x 5 days. only drinking about 3 8 oz cups of water + caffeine in am. rx for suppository sent, recommend increasing water to at least 60 oz a day. 08/03/23 -?-?-?-?-?-?-?-?-?-?-?-?- 29w 4d 164 lb 4 oz 124/73 Nega tive -?-?-?-?-?-?-?-?-?-?-?-?- Negative 140 -?-?-?-?-?-?-?-?-?-?-?-?- JV - starting me tformin for elevated glucose levels. needs new disc monitor and needs to see a nutrition expert to know how to eat better. still no BM x 10 days. starting miralax bowel prep + MOM. recommending sugar free gatorage to mix with the miralax. NSTs twice weekly ordered. has f/u us with MFM . need ror for echo results at [facility]. 08/06/23 -?-?-?-?-?-?-?-?-?-?-?-?- 30w 0d 162 lb 6 oz 118/78 -?-?-?-?-?-?-?-?-?-?-?-?- 140 -?-?-?-?-?-?-?-?-?-?-?-?- SM- BS reveiwed, fastings still elevated but she isn't toelrating metformin at night she is vomiting it up- will try taking it with pepcid and tums, if still happens will try metformin ER in am and if BS not controlled by thursday recommend starting NPH atnight. 08/13/23 -?-?-?-?-?-?-?-?-?-?-?-?- 31w 0d 165 lb 115/73 Negative -?-?-?-?-?-?-?-?-?-?-?-?- Negative 140 -?-?-?-?-?-?-?-?-?-?-?-?- SM- BS reviewed some are dipping lower, still needs to see nutritonisit 08/18/23 -?-?-?-?-?-?-?-?-?-?-?-?- 31w 5d 168 lb 116/75 Negative -?-?-?-?-?-?-?-?-?-?-?-?- Negative 140 -?-?-?-?-?-?-?-?-?-?-?-?- - saw nutritio n today, having gi side effects, plan to follow nutritional plan only no medication and then will fu thursday if elevated BS will start insulin 08/21/23 -?-?-?-?-?-?-?-?-?-?-?-?- 32w 1d 166 lb 112/77 Negative -?-?-?-?-?-?-?-?-?-?-?-?- Negative 150 -?-?-?-?-?-?-?-?-?-?-?-?- KW- NST only-lisa ctive. BS reviewed and elevated [id number]. postprandial under 120. discussed with SM. Will send in insulin to start-call office if additional edu needed. 08/25/23 -?-?-?-?-?-?-?-?-?-?-?-?- 32w 5d 166 lb 111/74 Negative -?-?-?-?-?-?-?-?-?-?-?-?- Negative 145 -?-?-?-?-?-?-?-?-?-?-?-?- KW- NST only. re active. Started insulin last night and had several low sugars throughout night. encourage protein before bed. To call office in AM if continues to have lows overnight tonight. discussed with and referral to suggested. 08/28/23 -?-?-?-?-?-?-?-?-?-?-?-?- 33w 1d 165 lb 4 oz 127/77 Nega tive -?-?-?-?-?-?-?-?-?-?-?-?- Negative 150 -?-?-?-?-?-?-?-?-?-?-?-?- SM- NST, seeing endocrine 08/31/23 -?-?-?-?-?-?-?-?-?-?-?-?- 33w 4d 169 lb 6 oz 114/74 Nega tive -?-?-?-?-?-?-?-?-?-?-?-?- Negative 150 -?-?-?-?-?-?-?-?-?-?-?-?- SM- no vb lof go od fm no regular ctx, saw endcorine and new insulin regimen prescribed 09/03/23 -?-?-?-?-?-?-?-?-?-?-?-?- 34w 0d 166 lb 8 oz 115/74 Nega tive -?-?-?-?-?-?-?-?-?-?-?-?- Negative 140 -?-?-?-?-?-?-?-?-?-?-?-?- SM- no vb lof go od fm no regular ctx BS controlled by . 09/08/23 -?-?-?-?-?-?-?-?-?-?-?-?- 34w 5d 166 lb 2 oz 113/77 Nega tive -?-?-?-?-?-?-?-?-?-?-?-?- Negative 145 -?-?-?-?-?-?-?-?-?-?-?-?- JV- Has some fas ting levels in the 50's. Dr. Arevalo told her to eat something when the fasting levels dip below 55. NST Reactive. has vaginal irritation again. culture collected. 09/11/23 -?-?-?-?-?-?-?-?-?-?-?-?- 35w 1d 167 lb 2 oz 113/72 Nega tive -?-?-?-?-?-?-?-?-?-?-?-?- Negative 140 -?-?-?-?-?-?-?-?-?-?-?-?- JV- nST is react manjit today. KYRA was called to add her growth us on thursday to a growth + BPP. SHe will then return on Thursday to sign consent with for section and for NST. 09/18/23 -?-?-?-?-?-?-?-?-?-?-?-?- 36w 1d 167 lb 104/69 Negative -?-?-?-?-?-?-?-?-?--?-?-?- Negative 140 -?-?-?-?-?-?-?-?-?-?-?-?- SM- BS not well controlled, no vb lof good fm no regular ctx. signed consent for surgery 09/22/23 -?-?-?-?-?-?-?-?-?-?-?-?- 36w 5d 168 lb 114/75 Negative -?-?-?-?-?-?-?-?-?-?-?-?- Negative 150 -?-?-?-?-?-?-?-?-?-?-?-?- MH-NST reactive. In WP yesterday and no cervical change. No reg CTX, VB, LOF. Has BPP in 3 days. Physical Exam Const alert, oriented x3 and no apparent distress HEENT Head and Scalp: normocephalic and atraumatic Eyes EOMs intact bilaterally Neck full ROM and no lymphadenopathy Chest inspection of chest normal
--- NOTE | 2023-09-25 16:59 | OB.TRI.NOTE ---
HPI - General HPI Narrative NAPOLEON VALLES, is a 28 F who presents with FLANAGAN, normal bps and no vb lof admits good fm having some nausea. normal bs and labs. Maternal Data Information BUCKY Calculator Estimated Delivery Date Method Current WG Current Estimate 10/15/23 LMP (Certain) 37w 2d Other Estimates 10/12/23 Ultrasound #1 37w 5d PFSH PFSH Medical History Seasonal allergies Depression Anxiety Osteogenesis imperfecta Home Medications ?Medication ?Instructions ?Recorded ?Last Taken ?Type levothyroxine 25 mcg tablet 25 mcg PO DAILY 08/25/22 09/25/23 History (Synthroid) hydroxyzine HCl 25 mg tablet 25 mg PO DAILY 02/27/23 09/25/23 History multivit-min no.71-iron fum 28 1 cap PO DAILY 02/27/23 09/25/23 History mg-folate no.1 1 mg-dha 300 mg capsule (PNV-[place]) aspirin 81 mg tablet,delayed 81 mg PO DAILY 05/22/23 09/24/23 History release docusate sodium 100 mg capsule 100 mg PO BID 05/26/23 09/24/23 History (Colace) ondansetron 4 mg disintegrating 4 mg PO Q6H PRN nausea and 07/09/23 09/12/23 10:00 Rx tablet vomiting #60 tabs acetaminophen 500 mg tablet 1,000 mg PO Q6H PRN headache 07/17/23 09/25/23 History (Tylenol Extra Strength) flash glucose scanning reader #1 ea 07/29/23 Unknown Rx (FreeStyle Rachel 2 [place]) flash glucose sensor (FreeStyle #1 ea 08/03/23 Unknown Rx Rachel 2 Sensor kit) pen needle, diabetic 29 gauge x #1 ea 08/24/23 Unknown Rx 1/2 (Comfort EZ Pen [place]) insulin NPH isoph U-100 human 100 18 unit subcut DIRECTED 09/08/23 09/25/23 History unit/mL (3 mL) subcutaneous pen (Novolin N FlexPen) famotidine 20 mg tablet (Pepcid) 20 mg PO Q12H #60 tabs 09/25/23 09/25/23 Rx Allergy/AdvReac Type Severity Reaction Status Date / Time sulfamethoxazole (From Allergy Severe Rash Verified 09/25/23 14:41 Bactrim) trimethoprim (From Bactrim) Allergy Severe Rash Verified 09/25/23 14:41 Family History Mother TIA (transient ischemic attack) Surgical History H/O sinus surgery S/P History of dilatation and curettage Hx of cholecystectomy Social History adopted: No household members: children number of children: 1 current occupational status: employed 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 current occupational exposures/hazards: No pets and animals: Yes (not managing the litterbox) pets and animals: cat(s) history of recent travel: No sexually active: Yes Smoking Status: Never smoker alcohol intake: never substance use type: does not use well-balanced diet: daily or most days caffeine: Yes Type: coffee Number of servings: 1 eating out: rarely or never during the past year weight has: increased > 10 lbs what type of physical activity do you participate in: walking frequency: 1-2 times per week gabriel/episcopalian: None seatbelt use: always do you feel safe at home: Yes additional social history: FOB [place] History 3 Elective abortions Hx Para 1 Spontaneous abortions 1 Hx # Term Pregnancies Ectopic pregnancies Hx # Pregnancies Multiple births # of living children 1 Past Pregnancies Del. Date Name GA/Weeks Outcome Route Bth Weight Infant Gen Labor Lgth Anesthesia Del [facility] Provider FOB 02/08/19 Tito 36 live - 6lbs Male spinal [facility] Dr. Berumen Delivery Date: 02/08/19 Last Updated by: Petrona Chow preeclampsia with severe features. Visit Details Expected Delivery Route/Plan RLTCS Plans Covid status: [] Flu vaccine: prior to Tdap vaccine: [] Rhogam: NA LARC form signed: [] Problem list reviewed and updated with the most current plan of care details and appropriate orders placed. Relevant counseling for the gestational age provided. Continue routine care and follow up unless otherwise noted in visit notes/problem list details OB Flowsheet Initial Weight: Not Recorded Date <del>?</del> EGA Weight BP Urine Prot <del>?</del> Glucose FHR FuHt Pres Dilation <del>?</del> Effaced St Visit Note 03/09/23 <del>?</del> 8w 4d 135 lb 110/80 <del>?</del> 160 <del>?</del> SM- CRL 2.1 cm cons with LMP 04/02/23 <del>?</del> 12w 0d 145 lb 110/76 Trace <del>?</del> Negative 155 <del>?</del> LC- no vb/cramping. had increased vaginal burning. genital culture obtained. discharge white curdy. diflucan ordered 04/07/23 <del>?</del> 12w 5d 139 lb 8 oz 110/72 Trace <del>?</del> Negative 161 <del>?</del> JV- still having extreme constipation and nausea. will dc zofran and add reglan. recommend continuing with the colace and miralax, add warm prune juice and a little caffeine (hot tea is best) 05/05/23 <del>?</del> 16w 5d 148 lb 4 oz 112/68 Negative <del>?</del> Negative 154 <del>?</del> MH-No VB. Tried monistat7 for yeast and persists. Doesn't usually respond to monistat. Terazol sent. Refill zofran. MFM US scheduled 05/22/23 <del>?</del> 19w 1d 152 lb 4 oz 119/72 Negative <del>?</del> Negative 155 <del>?</del> kw- work in for vaginal burning and odor. x 2 weeks. went to PCP and was given clindamycin. no changes in vaginal discharge. genital culture, urine culture, and GATO BV today. 05/26/23 <del>?</del> 19w 5d 154 lb 107/75 Negative <del>?</del> Negative 150 <del>?</del> KW- work in for constipation. nl labs reviewed. stop zofran, increase fluids, green leafy veggies, continue colace. call in thursday if no BM. Has follow up US on 06/07. 06/03/23 <del>?</del> 20w 6d 155 lb 4 oz 121/72 Negative <del>?</del> Negative 155 <del>?</del> JV- no lof, vaginal bleeding, or dec fm. still has vaginal irritation. on exam there is a discoloration around the urethra but no lacerations or ulcerations. red top collected. recommend feminine probiotic and vagisil. 07/03/23 <del>?</del> 25w 1d 161 lb 2 oz 104/72 Negative <del>?</del> Negative 145 26 <del>?</del> kw- no vb/lof/ctx. good fm. MFM recommends delivery at 36-37 weeks. 28 week labs discussed. To see physicians for appts for high risk . 07/09/23 <del>?</del> 26w 0d 162 lb 8 oz 115/77 Negative <del>?</del> Negative 150 <del>?</del> kw- no vb/lof/ctx. good fm. having some visual changes and headaches. N/V. trying to stay hydrated. Pre e labs ordered. kw- no vb/lof/ctx. good fm. having some visual changes and headaches. N/V. trying to stay hydrated. Pre e labs ordered. zofran ordered. 07/16/23 <del>?</del> 27w 0d 165 lb 6 oz 123/73 Negative <del>?</del> Negative <del>?</del> JV- patient is here today for more vaginal concerns. She denies discharge or itching but more burning and discomfort during intercourse. on exam there is some irritation and swelling of the vaginal tissue without discharge or odor. recommend ice pack pads and replens lubricant. There have been 3 cultures that were collected already this that were negative. request for rpt section sent. 36-37 weeks with steroids to be given at 35 weeks. 07/29/23 <del>?</del> 28w 6d 164 lb 4 oz 108/77 Negative <del>?</del> Negative 147 30 <del>?</del> JV- pt did her 1 hr today (results pending) she complains of no bm x 5 days. only drinking about 3 8 oz cups of water + caffeine in am. rx for suppository sent, recommend increasing water to at least 60 oz a day. 08/03/23 <del>?</del> 29w 4d 164 lb 4 oz 124/73 Negative <del>?</del> Negative 140 <del>?</del> JV - starting metformin for elevated glucose levels. needs new disc monitor and needs to see a nutrition expert to know how to eat better. still no BM x 10 days. starting miralax bowel prep + MOM. recommending sugar free gatorage to mix with the miralax. NSTs twice weekly ordered. has f/u us with MFM . need ror for echo results at [place]. 08/06/23 <del>?</del> 30w 0d 162 lb 6 oz 118/78 <del>?</del> 140 <del>?</del> SM- BS reveiwed, fastings still elevated but she isn't toelrating metformin at night she is vomiting it up- will try taking it with pepcid and tums, if still happens will try metformin ER in am and if BS not controlled by thursday recommend starting NPH atnight. 08/13/23 <del>?</del> 31w 0d 165 lb 115/73 Negative <del>?</del> Negative 140 <del>?</del> SM- BS reviewed some are dipping lower, still needs to see nutritonisit 08/18/23 <del>?</del> 31w 5d 168 lb 116/75 Negative <del>?</del> Negative 140 <del>?</del> SM- saw nutrition today, having gi side effects, plan to follow nutritional plan only no medication and then will fu thursday if elevated BS will start insulin 08/21/23 <del>?</del> 32w 1d 166 lb 112/77 Negative <del>?</del> Negative 150 <del>?</del> KW- NST only-reactive. BS reviewed and elevated [id number]. postprandial under 120. discussed with SM. Will send in insulin to start-call office if additional edu needed. 08/25/23 <del>?</del> 32w 5d 166 lb 111/74 Negative <del>?</del> Negative 145 <del>?</del> KW- NST only. reactive. Started insulin last night and had several low sugars throughout night. encourage protein before bed. To call office in AM if continues to have lows overnight tonight. discussed with DELMA and referral to suggested. 08/28/23 <del>?</del> 33w 1d 165 lb 4 oz 127/77 Negative <del>?</del> Negative 150 <del>?</del> SM- NST, seeing endocrine 08/31/23 <del>?</del> 33w 4d 169 lb 6 oz 114/74 Negative <del>?</del> Negative 150 <del>?</del> SM- no vb lof good fm no regular ctx, saw endcorine and new insulin regimen prescribed 09/03/23 <del>?</del> 34w 0d 166 lb 8 oz 115/74 Negative <del>?</del> Negative 140 <del>?</del> SM- no vb lof good fm no regular ctx BS controlled by . 09/08/23 <del>?</del> 34w 5d 166 lb 2 oz 113/77 Negative <del>?</del> Negative 145 <del>?</del> JV- Has some fasting levels in the 50's. Dr. Arevalo told her to eat something when the fasting levels dip below 55. NST Reactive. has vaginal irritation again. culture collected. 09/11/23 <del>?</del> 35w 1d 167 lb 2 oz 113/72 Negative <del>?</del> Negative 140 <del>?</del> JV- nST is reactive today. [facility] was called to add her growth us on thursday to a growth + BPP. SHe will then return on Thursday to sign consent with for section and for NST. 09/18/23 <del>?</del> 36w 1d 167 lb 104/69 Negative <del>?</del> Negative 140 <del>?</del> SM- BS not well controlled, no vb lof good fm no regular ctx. signed consent for surgery 09/22/23 <del>?</del> 36w 5d 168 lb 114/75 Negative <del>?</del> Negative 150 <del>?</del> -NST reactive. In WP yesterday and no cervical change. No reg CTX, VB, LOF. Has BPP in 3 days. Physical Exam Const alert, oriented x3 and no apparent distress HEENT Head and Scalp: normocephalic and atraumatic Eyes EOMs intact bilaterally Neck full ROM and no lymphadenopathy Chest inspection of chest normal Resp normal respiratory effort GI GI Narrative: gravid, abdomen nontender, AGA Neuro no focal motor deficits Motor Exam: clonus absent NST FHR Rate Baby A Baseline: 140 Variability:: Moderate Accelerations:: 15 x 15 Decelerations:: None NST Reactive:: Yes FHR Category:: Category I Uterine Activity:: no regular Assessment & Plan (1) Gestational diabetes: QUALIFIERS: Gestational diabetes mellitus control: insulin-controlled Trimester: third trimester Qualified Code(s): O24.414 - Gestational diabetes mellitus in , insulin controlled COMMENT: uncontrolled with insulin- continuing to change dosing, discussed with MFM recommend delivery between 37-38 weeks. (2) Nausea & vomiting: COMMENT: s/p 1L LR and IV zofran. tylenol for headache with improved symptoms PEC labs negative safe for dc home (3) Headache in : PLAN: Plan monitored, labs WNL, headache does not appear to be preeclamptic, reocmmend fluids and analgesic. reviewed precautions. fu as shceudled for RLTCS Charges/Coding Procedures Urinary/Genital [id number]: [id number] non-stress test Interp Multi Select Codes Visit Charges Office Visit/Consults: [id number] OV L3 Est 20min
== END 2023-09-25 17:30 | disposition home or self-care (01) ==
LOC: WPOUT 14:26 → WP 14:26
PROVIDERS: Referring Provider Obstetrics & Gynecology; Visit Provider Obstetrics & Gynecology
DX: O99.891 Other specified diseases and conditions complicating pregnancy (principal); R51.9 Headache, unspecified; Z79.890 Hormone replacement therapy; Z79.82 Long term (current) use of aspirin; Z79.899 Other long term (current) drug therapy; F32.A Depression, unspecified; F41.9 Anxiety disorder, unspecified; O99.343 Other mental disorders complicating pregnancy, third trimester; O24.414 Gestational diabetes mellitus in pregnancy, insulin controlled; O21.9 Vomiting of pregnancy, unspecified; Z3A.36 36 weeks gestation of pregnancy
CPT/HCPCS: 96374; 59025; 59050; 76819; 82565; 82570; 82962; 84156; 84450; 84460; 84550; 85027; 99221; G0378; J2405

== ENCOUNTER 2023-09-29 05:10 | Inpatient (IN) | payer MEDICAID, SELFPAY ==
[2023-09-29] VITALS (33 sets, daily range): BP systolic 96–131; BP diastolic 55–118; PULSE 85–109; RESP 11–20; TEMP 36.1–36.4; O2SAT 97–100; BMI 33.9
[2023-09-29] MEDS: Lactated Ringers 1,000 ML 999 ML IV (05:35)
[2023-09-29 05:56] LABS: Absolute Neutrophil Count 6.4 X10^3/uL (2.0-7.7); Basophil# 0.05 X10^3/uL; Basophil% 0.6 % (0-1); Eosinophil# 0.12 X10^3/uL; Eosinophils% 1.4 % (0-5); Hematocrit 36.2 % (37-47); Hemoglobin 12.4 g/dL (12.0-15.0); Mean Corp Hgb Conc 34.3 g/dL (32-36); Mean Corpuscular Hgb 30.8 pg (27.0-32.0); Mean Platelet Vol. 9.8 fl (6.2-12.0); Monocyte# 0.79 X10^3/uL; Monocyte% 9.1 % (0-10); NRBC Flagged by Analyzer 0 % (0-5); Neutrophil # 6.35 X10^3/uL (2.7-7.7); Platelet Count 257 K/mm3 (150-450); RBC Distribution Width CV 13.4 % (11.6-14.6); RBC Distribution Width SD 44.1 fl (35.1-43.9); Red Blood Count 4.02 M/mm3 (4.2-5.4); White Blood Count 8.7 K/mm3 (4.4-11.0)
[2023-09-29 06:04] LABS: Bedside Glucose 100 mg/dL (74-106)
[2023-09-29] MEDS: Lactated Ringers 1,000 ML 150 ML IV ×2 (06:09→06:43)
[2023-09-29] MEDS: Acetaminophen 500 MG Tablet 1000 MG PO ×3 (06:09→18:36)
[2023-09-29] MEDS: Sodium Citrate/Citric Acid 30 ML UDC PO (06:18)
[2023-09-29 06:41] LABS: Syphilis Antibodies Non-reactive
[2023-09-29] MEDS: Cefazolin 2 GM in 0.9% Normal Saline (100mL Bag) 100 ML IV (07:14)
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
--- NOTE | 2023-09-29 07:24 | PCM.DC ---
Discharge Instructions Diet Discharge Diet: No restrictions Activity Discharge Activity: May Not Drive (for 2 weeks or while taking narcotic pain medications.), May Shower and May Take a Tub Bath (in 7 days) May shower in (days): 0 May resume sexual activity in: 4-6 weeks Weight Bearing Status: Full weight bearing Lifting Restrictions: 20 pounds Dressing / Incision Call your doctor if your incision/area has: Continuous Slow Oozing, Sudden Increased Bleeding, Increased Pain/ Swelling, Increased Redness and Foul Smelling Discharge Call your doctor if you observe: Fever of 101 or Higher and Using more than 1 pad per hour (for 2 hours) Suture Line Care: Avoid Pulling/Pushing and Avoid Pinching/Bending Cleanse incision/area with: Soap & Water and Keep Dressing Clean & Dry Follow Up Care Please Follow Up With: Natasha Berumen MD When: Call [phone] to make an appointment for an incision check in 1-2 weeks. Test Results: Test results from this visit will be discussed in further detail at your follow-up appointment, if applicable. Discharge Plan Admission Admit Date/Time: 09/29/23 05:10 Attending Provider: Natasha Berumen Discharge Orders/Prescriptions Prescriptions: New oxycodone-acetaminophen [Percocet] 5-325 mg tablet 1 tab PO Q6H PRN (Reason: pain) 7 Days Qty: 20 0RF naproxen 500 mg tablet 500 mg PO BID PRN PRN (Reason: Pain) Qty: 30 1RF No Action levothyroxine [Synthroid] 25 mcg tablet 25 mcg PO DAILY hydroxyzine HCl 25 mg tablet 25 mg PO DAILY PNV-De [place]que 28-1-300 mg capsule 1 cap PO DAILY aspirin 81 mg tablet,delayed release (DR/EC) 81 mg PO DAILY docusate sodium [Colace] 100 mg capsule 100 mg PO BID Novolin N FlexPen 100 unit/mL (3 mL) insulin pen 18 unit subcut DIRECTED Rx Instructions: 20 units in am, 18 units in evening ondansetron 4 mg tablet,disintegrating 4 mg PO Q6H PRN (Reason: nausea and vomiting) Qty: 60 1RF (DME) FreeStyle Rachel 2 Sensor Kit See Rx Instructions .Route Qty: 1 7RF Rx Instructions: As directed acetaminophen [Tylenol Extra Strength] 500 mg tablet 1,000 mg PO Q6H PRN (Reason: headache) (DME) FreeStyle Rachel 2 [place] Misc See Rx Instructions .Route Qty: 1 0RF Rx Instructions: As directed (DME) pen needle, diabetic [Comfort EZ Pen [place]] 29 gauge x 1/2 needle See Rx Instructions .Route Qty: 1 1RF Rx Instructions: use one daily with insulin pen famotidine [Pepcid] 20 mg tablet 20 mg PO Q12H Qty: 60 1RF
[2023-09-29] MEDS: Methylergonovine 0.2 MG/ML Ampul IM (09:19)
[2023-09-29] MEDS: Carboprost Tromethamine 250 MCG/ML Ampul IM ×2 (09:25→09:46)
[2023-09-29] MEDS: TRANEXAMIC ACID 1,000 MG in 0.9% Normal Saline (100mL Bag) 100 ML 440 MG IV (09:40)
[2023-09-29] MEDS: 0.9% Saline Lock 10 ML Syringe IV ×2 (09:40→20:59)
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
[2023-09-29 10:00] LABS: Absolute Lymphocyte Count 0.91 X10^3/uL (0.83-4.51); Absolute Neutrophil Count 9.2 X10^3/uL (2.0-7.7); Basophil# 0.04 X10^3/uL; Basophil% 0.4 % (0-1); Eosinophils% 0.9 % (0-5); Hematocrit 32.7 % (37-47); Hemoglobin 11.1 g/dL (12.0-15.0); Lymphocyte # 0.91 X10^3/ul (0.83-4.51); Lymphocyte % 8.4 % (19-41); Mean Corp Hgb Conc 33.9 g/dL (32-36); Mean Corpuscular Hgb 31.6 pg (27.0-32.0); Mean Corpuscular Volume 93.2 fL (81-99); Mean Platelet Vol. 9.8 fl (6.2-12.0); Monocyte# 0.48 X10^3/uL; Monocyte% 4.4 % (0-10); NRBC Flagged by Analyzer 0 % (0-5); Neutrophil # 9.19 X10^3/uL (2.7-7.7); Neutrophil % 85.2 % (47-70); Platelet Count 242 K/mm3 (150-450); RBC Distribution Width CV 13.6 % (11.6-14.6); RBC Distribution Width SD 46.2 fl (35.1-43.9); Red Blood Count 3.51 M/mm3 (4.2-5.4); White Blood Count 10.8 K/mm3 (4.4-11.0)
[2023-09-29] MEDS: Oxytocin 15 Units/NS 250ml 15 UNITS/250 ML IV.SOLN 83 UNITS IV (10:20)
[2023-09-29] MEDS: Ketorolac 30 MG/ML Syringe IV ×3 (10:44→22:00)
[2023-09-29] MEDS: Ondansetron 4 MG/2 ML Vial IV ×3 (10:45→20:55)
[2023-09-29 11:56] LABS: Bedside Glucose 72 mg/dL (74-106)
--- NOTE | 2023-09-29 13:01 | NURSING ---
On 09/21/23 from [id number] the documentation entered on this patient actually belongs to patient [id number]. This is also noted in patient [id number] chart by the primary RN who incorrectly documented.
[2023-09-29 13:06] LABS: Absolute Neutrophil Count 12.1 X10^3/uL (2.0-7.7); Basophil# 0.05 X10^3/uL; Basophil% 0.3 % (0-1); Eosinophils% 0.7 % (0-5); Lymphocyte % 8.4 % (19-41); Mean Corp Hgb Conc 34.3 g/dL (32-36); Mean Corpuscular Hgb 30.7 pg (27.0-32.0); Mean Corpuscular Volume 89.5 fL (81-99); Mean Platelet Vol. 9.5 fl (6.2-12.0); Monocyte% 5.6 % (0-10); NRBC Flagged by Analyzer 0 % (0-5); Neutrophil # 12.11 X10^3/uL (2.7-7.7); Neutrophil % 84.3 % (47-70); Platelet Count 254 K/mm3 (150-450); RBC Distribution Width CV 13.6 % (11.6-14.6); RBC Distribution Width SD 44.3 fl (35.1-43.9); Red Blood Count 3.91 M/mm3 (4.2-5.4); White Blood Count 14.4 K/mm3 (4.4-11.0)
--- NOTE | 2023-09-29 13:40 | PCM.PN.OB ---
Subjective Subjective patient seen, doing well pain controlled bleeding minimal. answered questions. Objective Data Objective Data Vital Signs: Vital Signs Temp Pulse Resp BP Pulse Ox O2 Del Method 96.9 F L 100 19 H 112/55 L 100 Room Air 09/29/23 10:20 09/29/23 11:30 09/29/23 11:30 09/29/23 11:30 09/29/23 11:30 09/29/23 11:30 Oxygen Delivery Method Room Air Weight: 168 lb Body Mass Index (BMI) 33.9 Intake & Output: Intake and Output for Last 24 Hours 09/27/23 09/28/23 09/29/23 23:59 23:59 23:59 Intake Total 1002.5 / 1002.5 Balance 1002.5 / 1002.5 Lab / Micro Data 09/29/23 12:50 Labs: Laboratory Results - last 24 hr 09/29/23 05:35: WBC 8.7, RBC 4.02 L, Hgb 12.4, Hct 36.2 L, MCV 90.0, MCH 30.8, MCHC 34.3, RDW Std Deviation 44.1 H, RDW Coeff of Sharmin 13.4, Plt Count 257, MPV 9.8, Immature Gran % (Auto) 0.900, Neut % (Auto) 73.0 H, Lymph % (Auto) 15.0 L, [place] % (Auto) 9.1, Eos % (Auto) 1.4, Baso % (Auto) 0.6, Absolute Neuts (auto) 6.4, Absolute Lymphs (auto) 1.30, Nucleated RBC % 0, Syphilis Total Ab Non-reactive, Blood Type A POSITIVE, Antibody Screen NEGATIVE 09/29/23 05:45: POC Glucose 100 09/29/23 09:40: WBC 10.8, RBC 3.51 L, Hgb 11.1 L, Hct 32.7 L, MCV 93.2, MCH 31.6, MCHC 33.9, RDW Std Deviation 46.2 H, RDW Coeff of Sharmin 13.6, Plt Count 242, MPV 9.8, Immature Gran % (Auto) 0.700, Neut % (Auto) 85.2 H, Lymph % (Auto) 8.4 L, [place] % (Auto) 4.4, Eos % (Auto) 0.9, Baso % (Auto) 0.4, Absolute Neuts (auto) 9.2 H, Absolute Lymphs (auto) 0.91, Nucleated RBC % 0 09/29/23 10:56: POC Glucose 72 L 09/29/23 12:50: WBC 14.4 H, RBC 3.91 L, Hgb 12.0, Hct 35.0 L, MCV 89.5, MCH 30.7, MCHC 34.3, RDW Std Deviation 44.3 H, RDW Coeff of Sharmin 13.6, Plt Count 254, MPV 9.5, Immature Gran % (Auto) 0.700, Neut % (Auto) 84.3 H, Lymph % (Auto) 8.4 L, [place] % (Auto) 5.6, Eos % (Auto) 0.7, Baso % (Auto) 0.3, Absolute Neuts (auto) 12.1 H, Absolute Lymphs (auto) 1.20, Nucleated RBC % 0 Assessment & Plan (1) hemorrhage: (2) Uterine atony: (3) delivery delivered: COMMENT: RLTCS uterine atony, pph, poor uterine tissue quality. accidental suture injury to small bowel- oversewn by gen surg. PLAN: Plan Hg stable. repeat cbc in am
[2023-09-29] MEDS: Lactated Ringers 1,000 ML 100 ML IV (14:04)
[2023-09-29] MEDS: miSOPROStol 200 MCG Tablet PO ×3 (14:38→22:00)
[2023-09-29 14:57] LABS: Bedside Glucose 94 mg/dL (74-106)
[2023-09-29 17:21] LABS: Bedside Glucose 81 mg/dL (74-106)
[2023-09-29] MEDS: Enoxaparin 40 MG/0.4 ML Syringe SC (20:54)
[2023-09-29 21:24] LABS: Bedside Glucose 100 mg/dL (74-106)
[2023-09-30] MEDS: Acetaminophen 500 MG Tablet 1000 MG PO ×4 (00:53→18:14)
[2023-09-30 00:57] VITALS: BP 91/62; PULSE 107; RESP 18; TEMP 36.4; O2SAT 97
[2023-09-30] MEDS: SimETHICONE 80 MG Chewable Tablet PO (01:01)
[2023-09-30] MEDS: Ondansetron 4 MG/2 ML Vial IV ×2 (04:25→09:14)
[2023-09-30] MEDS: 0.9% Saline Lock 10 ML Syringe IV ×3 (04:25→09:15)
[2023-09-30] MEDS: Ketorolac 30 MG/ML Syringe IV (04:26)
[2023-09-30 04:40] VITALS: BP 104/68; PULSE 101; RESP 16; TEMP 36.4; O2SAT 98
[2023-09-30] MEDS: Levothyroxine 25 MCG TABLET PO (06:05)
[2023-09-30 06:28] LABS: Hematocrit 27.5 % (37-47); Hemoglobin 9.4 g/dL (12.0-15.0); Mean Corp Hgb Conc 34.2 g/dL (32-36); Mean Corpuscular Hgb 30.9 pg (27.0-32.0); Mean Corpuscular Volume 90.5 fL (81-99); Mean Platelet Vol. 9.8 fl (6.2-12.0); Platelet Count 197 K/mm3 (150-450); RBC Distribution Width CV 13.6 % (11.6-14.6); RBC Distribution Width SD 44.8 fl (35.1-43.9); Red Blood Count 3.04 M/mm3 (4.2-5.4)
[2023-09-30 06:36] LABS: Bedside Glucose 92 mg/dL (74-106)
--- NOTE | 2023-09-30 08:40 | PCM.PN.OB ---
Subjective Subjective Patient doing well overall still having nausea, not passing much gas yet. Tolerating PO. Ambulating and voiding without difficulty. infant feeding well. Denies chest pain, shortness of breath, calf pain/swelling, fevers, chills, lightheadedness. Objective Data Objective Data Vital Signs: Vital Signs Temp Pulse Resp BP Pulse Ox O2 Del Method 97.6 F L 101 H 16 104/68 98 Room Air 09/30/23 04:40 09/30/23 04:40 09/30/23 04:40 09/30/23 04:40 09/30/23 04:40 09/30/23 04:40 Oxygen Delivery Method Room Air Weight: 168 lb Body Mass Index (BMI) 33.9 Intake & Output: Intake and Output for Last 24 Hours 09/28/23 09/29/23 09/30/23 23:59 23:59 23:59 Intake Total 2510.83 / 2510.83 Output Total 1900 / 1900 300 / 300 Balance 610.83 / 610.83 -300 / -300 Lab / Micro Data 09/30/23 06:15 Labs: Laboratory Results - last 24 hr 09/29/23 05:35: Blood Type A POSITIVE, Antibody Screen NEGATIVE 09/29/23 09:40: WBC 10.8, RBC 3.51 L, Hgb 11.1 L, Hct 32.7 L, MCV 93.2, MCH 31.6, MCHC 33.9, RDW Std Deviation 46.2 H, RDW Coeff of Sharmin 13.6, Plt Count 242, MPV 9.8, Immature Gran % (Auto) 0.700, Neut % (Auto) 85.2 H, Lymph % (Auto) 8.4 L, [place] % (Auto) 4.4, Eos % (Auto) 0.9, Baso % (Auto) 0.4, Absolute Neuts (auto) 9.2 H, Absolute Lymphs (auto) 0.91, Nucleated RBC % 0 09/29/23 10:56: POC Glucose 72 L 09/29/23 12:50: WBC 14.4 H, RBC 3.91 L, Hgb 12.0, Hct 35.0 L, MCV 89.5, MCH 30.7, MCHC 34.3, RDW Std Deviation 44.3 H, RDW Coeff of Sharmin 13.6, Plt Count 254, MPV 9.5, Immature Gran % (Auto) 0.700, Neut % (Auto) 84.3 H, Lymph % (Auto) 8.4 L, [place] % (Auto) 5.6, Eos % (Auto) 0.7, Baso % (Auto) 0.3, Absolute Neuts (auto) 12.1 H, Absolute Lymphs (auto) 1.20, Nucleated RBC % 0 09/29/23 14:38: POC Glucose 94 09/29/23 17:01: POC Glucose 81 09/29/23 20:43: POC Glucose 100 09/30/23 06:08: POC Glucose 92 09/30/23 06:15: WBC 10.0, RBC 3.04 L, Hgb 9.4 L, Hct 27.5 L, MCV 90.5, MCH 30.9, MCHC 34.2, RDW Std Deviation 44.8 H, RDW Coeff of Sharmin 13.6, Plt Count 197, MPV 9.8 ROS Constitutional Constitutional: Reports systems reviewed and no addt'l complaints, except as documented Cardiovascular Cardiovascular: Reports systems reviewed and no addt'l complaints, except as documented Respiratory/Chest Respiratory/Chest: Reports systems reviewed and no addt'l complaints, except as documented Gastrointestinal Gastrointestinal: Reports systems reviewed and no addt'l complaints, except as documented Physical Exam Const alert, oriented x3 and no apparent distress HEENT Head and Scalp: atraumatic Resp normal respiratory effort GI soft to palpation and non-tender Inspection: incision intact, healing well and drainage (none) Bimanual Exam - Vag & Uterus: uterus non-tender Uterus Palpation: uterus fundus firm (below Umbilicus) Assessment & Plan (1) hemorrhage: (2) Uterine atony: (3) delivery delivered: COMMENT: RLTCS SM uterine atony, pph, poor uterine tissue quality. accidental suture injury to small bowel- oversewn by gen surg. PLAN: Plan s/p LTCS PPD # 1 1. routine post care 2. breast feeding- support given 3. rh positive 4. rubella immune repeat Hg
[2023-09-30 09:00] VITALS: BP 107/62; PULSE 114; RESP 16; TEMP 36.8; O2SAT 98
[2023-09-30] MEDS: Senna/Docusate Sodium 1 Tablet PO (10:43)
[2023-09-30] MEDS: miSOPROStol 200 MCG Tablet PO (10:44)
[2023-09-30] MEDS: Naproxen 500 MG Tablet PO ×2 (10:44→18:48)
[2023-09-30 11:02] LABS: Absolute Lymphocyte Count 0.74 X10^3/uL (0.83-4.51); Basophil# 0.04 X10^3/uL; Basophil% 0.4 % (0-1); Eosinophil# 0.07 X10^3/uL; Eosinophils% 0.7 % (0-5); Hematocrit 29.6 % (37-47); Hemoglobin 10.2 g/dL (12.0-15.0); Lymphocyte # 0.74 X10^3/ul (0.83-4.51); Lymphocyte % 7.2 % (19-41); Mean Corp Hgb Conc 34.5 g/dL (32-36); Mean Corpuscular Hgb 30.7 pg (27.0-32.0); Mean Corpuscular Volume 89.2 fL (81-99); Mean Platelet Vol. 9.5 fl (6.2-12.0); Monocyte# 0.44 X10^3/uL; Monocyte% 4.3 % (0-10); NRBC Flagged by Analyzer 0 % (0-5); Neutrophil # 8.97 X10^3/uL (2.7-7.7); Neutrophil % 86.7 % (47-70); Platelet Count 232 K/mm3 (150-450); RBC Distribution Width CV 13.8 % (11.6-14.6); RBC Distribution Width SD 44.6 fl (35.1-43.9); Red Blood Count 3.32 M/mm3 (4.2-5.4); White Blood Count 10.3 K/mm3 (4.4-11.0)
[2023-09-30 12:33] LABS: Bedside Glucose 89 mg/dL (74-106)
[2023-09-30] MEDS: Famotidine 20 MG Tablet PO (14:08)
[2023-09-30] MEDS: Ondansetron 8 MG Tablet PO ×2 (14:08→22:30)
[2023-09-30 15:00] VITALS: BP 121/70; PULSE 104; RESP 16; TEMP 36.4; O2SAT 97
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
[2023-09-30 18:04] LABS: Bedside Glucose 91 mg/dL (74-106)
[2023-09-30 20:02] VITALS: BP 113/76; PULSE 110; RESP 16; TEMP 36.8; O2SAT 97
[2023-09-30] MEDS: Enoxaparin 40 MG/0.4 ML Syringe SC (20:10)
[2023-10-01] MEDS: Famotidine 20 MG Tablet PO ×3 (00:41→21:11)
[2023-10-01] MEDS: Acetaminophen 500 MG Tablet 1000 MG PO ×4 (00:41→18:24)
[2023-10-01 00:44] VITALS: BP 131/90; PULSE 118; RESP 16; TEMP 36.7; O2SAT 97
[2023-10-01 01:10] LABS: Bedside Glucose 102 mg/dL (74-106)
[2023-10-01] MEDS: Lactated Ringers 1,000 ML 999 ML IV ×3 (01:22→13:40)
[2023-10-01 01:29] LABS: Absolute Lymphocyte Count 1.13 X10^3/uL (0.83-4.51); Absolute Neutrophil Count 7.7 X10^3/uL (2.0-7.7); Basophil# 0.04 X10^3/uL; Basophil% 0.4 % (0-1); Eosinophil# 0.09 X10^3/uL; Eosinophils% 0.9 % (0-5); Hematocrit 26.1 % (37-47); Hemoglobin 9.2 g/dL (12.0-15.0); Lymphocyte # 1.13 X10^3/ul (0.83-4.51); Lymphocyte % 11.6 % (19-41); Mean Corp Hgb Conc 35.2 g/dL (32-36); Mean Corpuscular Hgb 31.1 pg (27.0-32.0); Mean Corpuscular Volume 88.2 fL (81-99); Mean Platelet Vol. 9.4 fl (6.2-12.0); Monocyte# 0.69 X10^3/uL; Monocyte% 7.1 % (0-10); NRBC Flagged by Analyzer 0 % (0-5); Neutrophil # 7.71 X10^3/uL (2.7-7.7); Platelet Count 219 K/mm3 (150-450); RBC Distribution Width CV 13.6 % (11.6-14.6); Red Blood Count 2.96 M/mm3 (4.2-5.4); White Blood Count 9.8 K/mm3 (4.4-11.0)
[2023-10-01] MEDS: HYDROmorphone 1 MG/ML Syringe IV (01:37)
[2023-10-01] MEDS: Naproxen 500 MG Tablet PO ×3 (02:44→18:24)
[2023-10-01] MEDS: 0.9% Saline Lock 10 ML Syringe IV (02:45)
[2023-10-01] MEDS: proCHLORPERazine 10 MG/2 ML Vial IV (02:45)
--- NOTE | 2023-10-01 03:22 | NURSING ---
Bladder scan done at bedside and residual urine shows 516ml. This RN straight catheterized patient for 750ml of urine. Patient reports some relief but still painful.
[2023-10-01] MEDS: Levothyroxine 25 MCG TABLET PO (06:24)
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
--- NOTE | 2023-10-01 07:38 | PCM.PN.OB ---
Subjective Subjective Patient had 3 emesis last night, is passing flatus but tolerating only small amounts of po. feels nauseated. she struggled with nausea and vomiting the entire . she is not taking a lot of pain medications. Ambulating without difficulty. some urinary retention- was straight cathed last night. infant feeding well. Denies chest pain, shortness of breath, calf pain/swelling, fevers, chills, lightheadedness. Objective Data Objective Data Vital Signs: Vital Signs Temp Pulse Resp BP Pulse Ox O2 Del Method 98.1 F 118 H 16 131/90 H 97 Room Air 10/01/23 00:44 10/01/23 00:44 10/01/23 00:44 10/01/23 00:44 10/01/23 00:44 10/01/23 00:44 Oxygen Delivery Method Room Air Weight: 168 lb Body Mass Index (BMI) 33.9 Intake & Output: Intake and Output for Last 24 Hours 09/29/23 09/30/23 10/01/23 23:59 23:59 23:59 Intake Total 2510.83 / 2510.83 1000 / 1000 Output Total 1900 / 1900 300 / 300 1350 / 1350 Balance 610.83 / 610.83 -300 / -300 -350 / -350 Lab / Micro Data 10/01/23 01:20 Labs: Laboratory Results - last 24 hr 09/30/23 10:35: WBC 10.3, RBC 3.32 L, Hgb 10.2 L, Hct 29.6 L, MCV 89.2, MCH 30.7, MCHC 34.5, RDW Std Deviation 44.6 H, RDW Coeff of Sharmin 13.8, Plt Count 232, MPV 9.5, Immature Gran % (Auto) 0.700, Neut % (Auto) 86.7 H, Lymph % (Auto) 7.2 L, [place] % (Auto) 4.3, Eos % (Auto) 0.7, Baso % (Auto) 0.4, Absolute Neuts (auto) 9.0 H, Absolute Lymphs (auto) 0.74 L, Nucleated RBC % 0 09/30/23 12:14: POC Glucose 89 09/30/23 17:36: POC Glucose 91 10/01/23 00:50: POC Glucose 102 10/01/23 01:20: WBC 9.8, RBC 2.96 L, Hgb 9.2 L, Hct 26.1 L, MCV 88.2, MCH 31.1, MCHC 35.2, RDW Std Deviation 44.0 H, RDW Coeff of Sharmin 13.6, Plt Count 219, MPV 9.4, Immature Gran % (Auto) 1.000 H, Neut % (Auto) 79.0 H, Lymph % (Auto) 11.6 L, [place] % (Auto) 7.1, Eos % (Auto) 0.9, Baso % (Auto) 0.4, Absolute Neuts (auto) 7.7, Absolute Lymphs (auto) 1.13, Nucleated RBC % 0 ROS Constitutional Constitutional: Reports systems reviewed and no addt'l complaints, except as documented Cardiovascular Cardiovascular: Reports systems reviewed and no addt'l complaints, except as documented Respiratory/Chest Respiratory/Chest: Reports systems reviewed and no addt'l complaints, except as documented Gastrointestinal Gastrointestinal: Reports systems reviewed and no addt'l complaints, except as documented Physical Exam Const alert, oriented x3 and no apparent distress HEENT Head and Scalp: atraumatic Chest Chest Narrative: tachycardic no murmurs Resp normal respiratory effort GI soft to palpation and non-distended GI Narrative: mild TTP decreased bowel sounds Inspection: incision intact, healing well and drainage (none) Bimanual Exam - Vag & Uterus: uterus non-tender Uterus Palpation: uterus fundus firm (below Umbilicus) Assessment & Plan (1) hemorrhage: (2) Uterine atony: (3) delivery delivered: COMMENT: RLTCS uterine atony, pph, poor uterine tissue quality. accidental suture injury to small bowel- oversewn by gen surg. (4) Postoperative nausea and vomiting: PLAN: Plan s/p LTCS PPD # 1. routine post care 2. xray of abdomen and add reglan and mylicon. 3. rh positive 4. rubella immune
[2023-10-01 09:00] VITALS: BP 124/80; PULSE 108; RESP 16; TEMP 36.8; O2SAT 99
[2023-10-01] MEDS: Lactated Ringers 1,000 ML 125 ML IV ×3 (09:07→21:10)
[2023-10-01] MEDS: SimETHICONE 80 MG Chewable Tablet PO ×3 (09:08→18:23)
[2023-10-01] MEDS: Senna/Docusate Sodium 1 Tablet PO (10:22)
[2023-10-01] MEDS: hydrOXYzine 10 MG Tablet PO (10:23)
[2023-10-01] MEDS: Metoclopramide 10 MG/2 ML Vial 5 MG IV ×2 (12:51→18:24)
[2023-10-01 13:30] VITALS: BP 124/83; PULSE 116; RESP 16; TEMP 36.4; O2SAT 99
[2023-10-01] MEDS: Bisacodyl 10 MG Suppository RC (14:37)
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
[2023-10-01 17:20] VITALS: BP 124/83; PULSE 122; RESP 16; TEMP 36.4; O2SAT 100
--- NOTE | 2023-10-01 17:27 | PCM.PN.BLA ---
Progress Note HR still 110-120 has some intermittent chest discomfort. sinus tachy rhythm- 100% pulse ox. will get stat chest ct. if normal will obtain EKG.
--- NOTE | 2023-10-01 17:50 | CT_ITS ---
STUDY: CTA CHEST REASON FOR EXAM: Female, 28 years old. chest pain and tachycardia RADIATION DOSAGE (If Supplied By Facility): CTDIvol = ( 9.05 ) mGy, DLP = ( 339.29 ) mGycm TECHNIQUE: The examination was performed with the intravenous administration of IV 100mL Isovue-300. Post-processing of the angiographic images was performed, with multiplanar reformation and 3D reconstruction. Individualized dose optimization techniques were used for this CT. COMPARISON: None. FINDINGS: Tubes and lines: 1. No life-support noted. CTA: PULMONARY ARTERIES: There is normal configuration and contrast opacification of pulmonary outflow tract, main pulmonary arteries, segmental and intersegmental pulmonary arteries bilaterally without evidence of intraluminal filling defects. AORTIC ARCH: The aortic arch and descending aorta have normal configuration. No evidence of dissection or aneurysmal dilatation. HEART: Cardiac contour is normal. No evidence pericardial effusion. CT CHEST: LUNGS: [RIGHT apical bullous disease is present. Remaining lung zones are clear with the exception of mild atelectasis at the LEFT base accentuated by marked scoliotic curvature of the thoracic spine.. No mass. No consolidation. PLEURAL SPACES: Unremarkable, no effusion or pneumothorax.. MEDIASTINUM AND LYMPH NODES: Unremarkable. No significant adenopathy. BONES: Extensive scoliotic curvature of the thoracic spine. No acute bony changes noted. ABDOMEN: Within normal limits. Other: None IMPRESSIONS: 1. No CTA evidence of pulmonary embolism. 2. No CTA evidence of aortic aneurysm or dissection 3. Normal CT appearance of the heart and pericardium. 4. Atelectasis and mild volume loss at LEFT base. Moderate bullous disease at the RIGHT apex. 5. No airspace consolidation or effusion. Electronically Signed: Timoteo Khan MD at 18:35 EDT , CT/CTA Chest W/WO Contrast IMPRESSION: undefined
--- NOTE | 2023-10-01 19:01 | EKG12_ITS ---
Test Reason : TACHYCARDIA Blood Pressure : / mmHG Vent. Rate : 108 BPM Atrial Rate : 108 BPM P-R Int : 176 ms QRS Dur : 084 ms QT Int : 342 ms P-R-T Axes : 033 017 014 degrees QTc Int : 458 ms Sinus tachycardia Otherwise normal ECG When compared with ECG of 04-APR-2022 00:46, Vent. rate has increased BY 36 BPM QT has lengthened Confirmed by BRITTANY NARVAEZ, JASMYN ([id number]), content editor MARSHA MENDOZA ([id number]) on 10/07/2023 10:09:53 AM Referred By: Natasha Berumen Confirmed By:DEANDRE SOTO MD
[2023-10-01] MEDS: Enoxaparin 40 MG/0.4 ML Syringe SC (20:13)
[2023-10-01 20:26] VITALS: BP 119/78; PULSE 115; RESP 24; TEMP 36.8; O2SAT 97
[2023-10-01 23:39] VITALS: BP 118/88; PULSE 106; RESP 20; TEMP 36.7; O2SAT 97
[2023-10-02] MEDS: Acetaminophen 500 MG Tablet 1000 MG PO ×4 (00:42→18:18)
[2023-10-02] MEDS: Bisacodyl 5 MG Tablet 10 MG PO (00:42)
[2023-10-02] MEDS: Metoclopramide 10 MG/2 ML Vial 5 MG IV ×5 (00:43→23:30)
[2023-10-02] MEDS: proCHLORPERazine 10 MG/2 ML Vial IV (01:17)
--- NOTE | 2023-10-02 01:25 | NURSING ---
pt reports I had to push pretty good to excrete bowel movement
[2023-10-02 01:48] LABS: Bedside Glucose 103 mg/dL (74-106)
[2023-10-02 02:12] VITALS: PULSE 115; RESP 20; O2SAT 98
[2023-10-02] MEDS: Naproxen 500 MG Tablet PO ×3 (02:14→18:18)
[2023-10-02 05:35] VITALS: BP 122/86; PULSE 118; RESP 21; TEMP 37.2; O2SAT 96
[2023-10-02 05:42] LABS: Absolute Lymphocyte Count 0.88 X10^3/uL (0.83-4.51); Absolute Neutrophil Count 6.7 X10^3/uL (2.0-7.7); Basophil# 0.05 X10^3/uL; Basophil% 0.6 % (0-1); Eosinophil# 0.15 X10^3/uL; Eosinophils% 1.8 % (0-5); Hematocrit 27.8 % (37-47); Hemoglobin 9.5 g/dL (12.0-15.0); Lymphocyte # 0.88 X10^3/ul (0.83-4.51); Lymphocyte % 10.5 % (19-41); Mean Corp Hgb Conc 34.2 g/dL (32-36); Mean Corpuscular Hgb 30.7 pg (27.0-32.0); Mean Platelet Vol. 9.1 fl (6.2-12.0); Monocyte# 0.44 X10^3/uL; Monocyte% 5.3 % (0-10); NRBC Flagged by Analyzer 0 % (0-5); Neutrophil # 6.72 X10^3/uL (2.7-7.7); Neutrophil % 80.1 % (47-70); Platelet Count 274 K/mm3 (150-450); RBC Distribution Width CV 13.5 % (11.6-14.6); RBC Distribution Width SD 43.9 fl (35.1-43.9); Red Blood Count 3.09 M/mm3 (4.2-5.4); White Blood Count 8.4 K/mm3 (4.4-11.0)
[2023-10-02 06:30] LABS: ALB/GLOB Ratio 0.6 RATIO (0.9-2.4); AST(SGOT) 28 U/L (15-37); Alanine Aminotransfer ALT/SGPT 33 U/L (13-56); Albumin, Serum 2.2 g/dL (3.2-5.0); Alkaline Phosphatase 158 U/L (45-117); Anion Gap 7 (5-15); BUN 7 mg/dL (7-18); BUN/Creat Ratio 19.4 RATIO (10-20); Chloride 112 mmol/L (98-107); Creatinine, Serum 0.36 mg/dL (0.55-1.02); EST Glomerular Filtration Rate 229 mL/min (>60); Est Glom Filt Rate - Afr Amer 278 mL/min (>60); Estimated Creatinine Clearance 214.12 ml/min; Globulin 3.4 g/dL (2.2-4.2); Glucose 109 mg/dL (74-106); Potassium 3.1 mmol/L (3.5-5.1); Protein, Total 5.6 g/dL (6.4-8.2); Sodium Level 142 mmol/L (136-145)
[2023-10-02] MEDS: hydrOXYzine 10 MG Tablet PO (06:31)
[2023-10-02] MEDS: Levothyroxine 25 MCG TABLET PO (06:31)
[2023-10-02 08:08] VITALS: BP 131/92; PULSE 110; RESP 17; TEMP 36.7; O2SAT 97
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
[2023-10-02] MEDS: SimETHICONE 80 MG Chewable Tablet PO ×3 (08:16→18:18)
[2023-10-02] MEDS: Famotidine 20 MG Tablet PO ×2 (10:52→21:36)
[2023-10-02] MEDS: Lactated Ringers 1,000 ML 75 ML IV (10:53)
[2023-10-02] MEDS: 0.9% Saline Lock 10 ML Syringe IV (12:41)
[2023-10-02 12:50] VITALS: BP 127/81; RESP 17; TEMP 36.7; O2SAT 98
[2023-10-02 18:16] VITALS: BP 122/95; PULSE 115; RESP 16; TEMP 36.7; O2SAT 100
[2023-10-02 19:52] VITALS: BP 125/81; PULSE 107; RESP 16; TEMP 36.6; O2SAT 98
[2023-10-02] MEDS: Enoxaparin 40 MG/0.4 ML Syringe SC (20:08)
[2023-10-03] MEDS: Acetaminophen 500 MG Tablet 1000 MG PO ×3 (00:48→11:59)
[2023-10-03 03:00] VITALS: BP 124/82; PULSE 93; RESP 14; TEMP 36.4; O2SAT 97
[2023-10-03] MEDS: Naproxen 500 MG Tablet PO ×2 (03:14→10:19)
[2023-10-03] MEDS: Metoclopramide 10 MG/2 ML Vial 5 MG IV (06:29)
[2023-10-03] MEDS: 0.9% Saline Lock 10 ML Syringe IV (06:30)
[2023-10-03] MEDS: hydrOXYzine 10 MG Tablet PO (06:35)
[2023-10-03] MEDS: Levothyroxine 25 MCG TABLET PO (06:36)
[2023-10-03 08:20] VITALS: BP 135/83; RESP 16; TEMP 36.7; O2SAT 97
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
[2023-10-03] MEDS: SimETHICONE 80 MG Chewable Tablet PO (10:19)
[2023-10-03] MEDS: Senna/Docusate Sodium 1 Tablet PO (10:19)
[2023-10-03] MEDS: Famotidine 20 MG Tablet PO (10:51)
[2023-10-03 11:00] VITALS: PULSE 98
== END 2023-10-03 13:05 | disposition home or self-care (01) | DRG 540 ==
PROVIDERS: Admitting Provider Obstetrics & Gynecology; Referring Provider Obstetrics & Gynecology; Visit Provider Obstetrics & Gynecology
PROC: 10D00Z1 Extraction of Products of Conception, Low, Open Approach (ICD-10-PCS; CPT 59514; principal; 2023-09-29 07:00)
DX: O24.424 Gestational diabetes mellitus in childbirth, insulin controlled (principal); O72.1 Other immediate postpartum hemorrhage; E03.9 Hypothyroidism, unspecified; K21.9 Gastro-esophageal reflux disease without esophagitis; F41.9 Anxiety disorder, unspecified; K91.72 Accidental puncture and laceration of a digestive system organ or structure during other procedure; R11.2 Nausea with vomiting, unspecified; R07.89 Other chest pain; O99.893 Other specified diseases and conditions complicating puerperium; Y92.234 Operating room of hospital as the place of occurrence of the external cause; Y65.8 Other specified misadventures during surgical and medical care; O99.63 Diseases of the digestive system complicating the puerperium; O99.892 Other specified diseases and conditions complicating childbirth; O36.8130 Decreased fetal movements, third trimester, not applicable or unspecified; Q78.0 Osteogenesis imperfecta; O34.211 Maternal care for low transverse scar from previous cesarean delivery; O99.344 Other mental disorders complicating childbirth; O99.62 Diseases of the digestive system complicating childbirth; Z3A.37 37 weeks gestation of pregnancy; O71.81 Laceration of uterus, not elsewhere classified; R33.9 Retention of urine, unspecified; Z37.0 Single live birth; O99.284 Endocrine, nutritional and metabolic diseases complicating childbirth; Z79.82 Long term (current) use of aspirin; Z79.890 Hormone replacement therapy; Z79.899 Other long term (current) drug therapy; Z87.891 Personal history of nicotine dependence
CPT/HCPCS: 59025; 59050; 71275; 74018; 80053; 82962; 85025; 85027; 86780; 86850; 86900; 86901; 93005; 99221; J7120; Q9967; A4216; G0378; J2405

== ENCOUNTER → 2023-11-10 | Outpatient (CLI) | payer MEDICAID, SELFPAY ==
[2023-11-10 10:07] LABS: Absolute Lymphocyte Count 1.02 X10^3/uL (0.83-4.51); Absolute Neutrophil Count 3.7 X10^3/uL (2.0-7.7); Basophil# 0.05 X10^3/uL; Basophil% 0.9 % (0-1); Eosinophil# 0.15 X10^3/uL; Eosinophils% 2.6 % (0-5); Hematocrit 41.5 % (37-47); Hemoglobin 13.7 g/dL (12.0-15.0); Lymphocyte # 1.02 X10^3/ul (0.83-4.51); Lymphocyte % 17.7 % (19-41); Mean Corpuscular Hgb 29.7 pg (27.0-32.0); Mean Platelet Vol. 10.1 fl (6.2-12.0); Monocyte# 0.78 X10^3/uL; Monocyte% 13.6 % (0-10); NRBC Flagged by Analyzer 0 % (0-5); Neutrophil # 3.74 X10^3/uL (2.7-7.7); Platelet Count 286 K/mm3 (150-450); RBC Distribution Width CV 11.9 % (11.6-14.6); RBC Distribution Width SD 38.9 fl (35.1-43.9); Red Blood Count 4.61 M/mm3 (4.2-5.4); White Blood Count 5.8 K/mm3 (4.4-11.0)
[2023-11-10 10:53] LABS: ALB/GLOB Ratio 1.1 RATIO (0.9-2.4); AST(SGOT) 45 U/L (15-37); Alanine Aminotransfer ALT/SGPT 77 U/L (13-56); Alkaline Phosphatase 128 U/L (45-117); Anion Gap 3 (5-15); BUN 17 mg/dL (7-18); BUN/Creat Ratio 21.4 RATIO (10-20); Chloride 110 mmol/L (98-107); EST Glomerular Filtration Rate 92 mL/min (>60); Est Glom Filt Rate - Afr Amer 111 mL/min (>60); Globulin 3.5 g/dL (2.2-4.2); Glucose 95 mg/dL (74-106); Potassium 3.9 mmol/L (3.5-5.1); Protein, Total 7.5 g/dL (6.4-8.2); Sodium Level 141 mmol/L (136-145)
== END | disposition home or self-care (01) ==
PROVIDERS: PCP Nurse Practitioner Family; Referring Provider Obstetrics & Gynecology; Visit Provider Obstetrics & Gynecology
DX: R33.9 Retention of urine, unspecified (principal); N39.0 Urinary tract infection, site not specified; B37.2 Candidiasis of skin and nail; Z98.891 History of uterine scar from previous surgery
CPT/HCPCS: 80053; 85025; 87086; 87088; 87186

== ENCOUNTER → 2023-12-15 | Outpatient (CLI) | payer MEDICAID, SELFPAY ==
--- NOTE | 2023-12-15 17:40 | US_ITS ---
STUDY: ULTRASOUND OF THE FEMALE PELVIS - COMPLETE REASON FOR EXAM: Female, 28 years old. Pelvic pain LMP: Unknown. TECHNIQUE: Transabdominal and Transvaginal TECHNICAL QUALITY: Adequate. COMPARISON: Comparison is made with prior study dated January 21, 2021. FINDINGS: The uterus is anteverted and is in a midline position. The uterus measures 7.9 cm x 4.5 cm x 3.7 cm. Normal uterine cervix. The endometrium measures 4 mm in thickness, and is hyperechoic. There is no demonstrated endometrial mass. Focal area of heterogeneous architecture in the myometrium measuring 1.3 cm x 1.5 cm. This most likely represents a small fibroid. I.U.D. - The patient does not have an I.U.D. The right ovary is visualized. The right ovary measures 2.4 cm x 1.7 cm x 1.7 cm. There is no right ovarian cyst or ovarian mass. There is no visualized right adnexal mass or complex lesion. There is normal arterial and normal venous vascularity. The left ovary is visualized. The left ovary measures 1.9 cm x 1.6 cm x 1.2 cm. There is no left ovarian cyst or ovarian mass. There is no visualized left adnexal mass or complex lesion. There is normal arterial and normal venous vascularity. There is no fluid in the cul-de-sac. The pre void volume of the bladder was 29 ml. US/Pelvic w/ Transvaginal IMPRESSION: Findings suggestive of a small uterine fibroid. Electronically Signed: Michel Richardson MD at 12:06 EDT ,
== END | disposition home or self-care (01) ==
LOC: US 17:40
PROVIDERS: PCP Nurse Practitioner Family; Referring Provider Advanced Practice Midwife; Visit Provider Advanced Practice Midwife
DX: R10.2 Pelvic and perineal pain (principal)
CPT/HCPCS: 76830; 76856

== ENCOUNTER → 2024-02-10 | Outpatient (CLI) | payer MEDICAID, SELFPAY | END | disposition home or self-care (01) | PROVIDERS: PCP Nurse Practitioner Family; Referring Provider Advanced Practice Midwife; Visit Provider Advanced Practice Midwife | DX: B37.9 Candidiasis, unspecified (principal) | CPT/HCPCS: 87070; 87205 ==

== ENCOUNTER → 2024-02-16 | Outpatient (CLI) | payer MEDICAID, SELFPAY ==
--- NOTE | 2024-02-16 08:38 | US_ITS ---
STUDY: ULTRASOUND BREAST - RIGHT REASON FOR EXAM: Female, 28 years old. Palpable mass TECHNIQUE: Axial and longitudinal images of the RIGHT breast were performed with a high resolution ultrasound transducer. # OF IMAGES: 7 COMPARISON: Diagnostic mammogram earlier today FINDINGS: RIGHT Breast: Heterogeneous back and echotexture. Multiple longitudinal and transverse ultrasound images of the retroareolar right breast demonstrate multiple dilated ducts corresponding to the palpable abnormality.: US/Breast Limited Unilateral IMPRESSION: Ultrasound confirms multiple dilated ducts in the retroareolar right breast corresponding to the palpable abnormality. ASSESSMENT CATEGORY: BIRADS Category 2: Benign. A letter regarding these results will be sent to the patient by the facility within 30 days. Electronically Signed: Timoteo Castro MD at 14:11 EST ,
--- NOTE | 2024-02-16 08:38 | BI_ITS ---
MAMMOGRAPHY - BILATERAL DIAGNOSTIC REASON FOR EXAM: Female, 28 years old. breast pain, right PERTINENT HISTORY: Non-contributory. TECHNIQUE: Digital examination. Mediolateral oblique (MLO) and craniocaudad (CC) views of both breasts were obtained. CAD: CAD was performed on this study. COMPARISON: None. FINDINGS: Breast Composition: The breasts are heterogeneously dense, which may obscure small masses. There are no dominant masses or suspicious calcifications. No other significant abnormalities are identified. BI/DIAG MAMM W/CAD, BILAT IMPRESSION: Stable bilateral diagnostic mammogram. Ultrasound of the palpable abnormality in the right breast will be obtained. ASSESSMENT CATEGORY: BIRADS Category 0: Incomplete. Need additional imaging evaluation. A letter regarding these results will be sent to the patient by the facility within 30 days. FOLLOW UP RECOMMENDATION: Ultrasound Recommended. (I) Approximately 10% of breast cancers are not detected by mammography. A normal mammogram should not delay biopsy of a clinically suspicious abnormality. Electronically Signed: Timoteo Castro MD at 9:33 EST ,
== END | disposition home or self-care (01) ==
LOC: OPBI 08:38
PROVIDERS: PCP Nurse Practitioner Family; Referring Provider Advanced Practice Midwife; Visit Provider Advanced Practice Midwife
DX: N64.4 Mastodynia (principal)
CPT/HCPCS: 77062; 76642; 77066; G0279

== ENCOUNTER → 2024-04-20 | Outpatient (CLI) | payer MEDICAID, SELFPAY | END | disposition home or self-care (01) | LOC: LABSPEC 09:41 | PROVIDERS: PCP Nurse Practitioner Family; Referring Provider Nurse Practitioner Family; Visit Provider Nurse Practitioner Family | DX: R10.2 Pelvic and perineal pain (principal) | CPT/HCPCS: 87070; 87205 ==

== ENCOUNTER → 2024-05-16 | Outpatient (CLI) | payer MEDICAID, SELFPAY | END | disposition home or self-care (01) | LOC: LABSPEC 15:31 | PROVIDERS: PCP Nurse Practitioner Family; Referring Provider Otolaryngology; Visit Provider Otolaryngology | DX: J32.9 Chronic sinusitis, unspecified (principal) | CPT/HCPCS: 87070; 87205 ==

== ENCOUNTER → 2024-05-18 | Outpatient (CLI) | payer MEDICAID, SELFPAY | END | disposition home or self-care (01) | LOC: LABSPEC 16:24 | PROVIDERS: PCP Nurse Practitioner Family; Referring Provider Advanced Practice Midwife; Visit Provider Advanced Practice Midwife | DX: R10.2 Pelvic and perineal pain (principal) | CPT/HCPCS: 87070; 87205 ==

== ENCOUNTER → 2024-06-23 | Outpatient (CLI) | payer MEDICAID, SELFPAY | END | disposition home or self-care (01) | LOC: LABSPEC 16:49 | PROVIDERS: PCP Nurse Practitioner Family; Referring Provider Nurse Practitioner Family; Visit Provider Nurse Practitioner Family | DX: N94.89 Other specified conditions associated with female genital organs and menstrual cycle (principal); R10.2 Pelvic and perineal pain | CPT/HCPCS: 87070; 87086; 87088; 87205 ==

== ENCOUNTER → 2024-07-25 | Outpatient (CLI) | payer MEDICAID, SELFPAY | END | disposition home or self-care (01) | LOC: LABSPEC 16:25 | PROVIDERS: PCP Nurse Practitioner Family; Visit Provider Nurse Practitioner Family | DX: N89.8 Other specified noninflammatory disorders of vagina (principal) | CPT/HCPCS: 87070; 87077; 87186; 87205 ==

== ENCOUNTER → 2024-08-08 | Outpatient (CLI) | payer MEDICAID, SELFPAY | END | disposition home or self-care (01) | LOC: LABSPEC 12:32 | PROVIDERS: PCP Nurse Practitioner Family; Visit Provider Nurse Practitioner Family | DX: N89.8 Other specified noninflammatory disorders of vagina (principal) | CPT/HCPCS: 87070; 87205 ==

== ENCOUNTER → 2024-08-16 | Outpatient (CLI) | payer MEDICAID, SELFPAY ==
--- NOTE | 2024-08-16 08:45 | RAD_ITS ---
PROCEDURE: ABDOMEN SINGLE VIEW 08/16/2024 REASON FOR EXAM: CONSTIPATION TECHNIQUE: Single view abdomen. COMPARISON: None available FINDINGS: Moderate amount of stool throughout the colon. No evidence of fecal impaction. No gaseous distention of bowel. Status post cholecystectomy. The visualized lung bases appear clear. Rightward scoliosis of the mid thoracic spine. RAD/Abdomen Single View IMPRESSION: Moderate amount of stool throughout the colon. No evidence of fecal impaction. No gaseous distention of bowel. Reading Location: [id number]
--- NOTE | 2024-08-16 08:45 | RAD_ITS ---
PROCEDURE: CERV SPINE 2 OR 3 VIEWS 08/16/2024 REASON FOR EXAM: NECK PAIN, HEADACHES TECHNIQUE: 3 views of the cervical spine. AP, lateral, open-mouth odontoid COMPARISON: None available FINDINGS: Cervical spine is visualized on the lateral view from the skull base to T1. No fracture or malalignment. The disc spaces appear within limits. No prevertebral soft tissue swelling. The visualized apices appear clear. Appearance of partially imaged rightward curvature of the midthoracic spine RAD/Cerv Spine 2 or 3 Views IMPRESSION: Study appears within limits. Reading Location: [id number]
== END | disposition home or self-care (01) ==
LOC: RAD 08:41
PROVIDERS: PCP Family Medicine; Referring Provider Student in an Organized Health Care Education/Training Program; Visit Provider Student in an Organized Health Care Education/Training Program
DX: K59.00 Constipation, unspecified (principal); G43.009 Migraine without aura, not intractable, without status migrainosus
CPT/HCPCS: 72040; 74018

== ENCOUNTER → 2024-09-12 | Outpatient (CLI) | payer MEDICAID, SELFPAY | END | disposition home or self-care (01) | LOC: LABSPEC 16:47 | PROVIDERS: PCP Family Medicine; Visit Provider Nurse Practitioner Family | DX: R39.9 Unspecified symptoms and signs involving the genitourinary system (principal); N89.8 Other specified noninflammatory disorders of vagina | CPT/HCPCS: 87070; 87086; 87088; 87205 ==

== ENCOUNTER → 2024-10-03 | Outpatient (CLI) | payer MEDICAID, SELFPAY ==
--- OUTSIDE RECORDS SUMMARY | 2024-10-03 23:04 | XMS RPT_ITS | CCD ---
Author Organization [facility] Care Team Providers Care Environmental Epidemiologist Name Role Phone АННА GOLDSTEIN Unavailable Unavailable LETITIA FORD Unavailable Unavailable АННА GOLDSTEIN Unavailable Unavailable GIOVANI JOLLEY Unavailable Unavailable Dr. Beryl Mcmillan Primary Care Provider Dr. Beryl Mcmillan Referring Provider Dr. Natasha Correia Attending Provider [phone] Linda ELECTRICAL SYSTEMS DESIGNER, ELECTRICAL SYSTEMS DESIGNER-C Flori Attending Provider Kishor ELECTRICAL SYSTEMS DESIGNER, ELECTRICAL SYSTEMS DESIGNER-C Tonia Attending Provider Dr. Lenka Thomas Attending Provider Dr. Beryl Mcmillan Primary Care Provider Dr. Beryl Mcmillan Referring Provider Kishor ELECTRICAL SYSTEMS DESIGNER, FATIMAH-Fortino Randall Attending Provider [phone] Dr. Natasha Correia Attending Provider [phone] BERYL MCMILLAN DO Primary Care Physician Dr. Beryl Mcmillan Primary Care Provider Dr. Beryl Mcmillan Referring Provider Dr. Natasha Correia Attending Provider [phone] Kishor ELECTRICAL SYSTEMS DESIGNER, ELECTRICAL SYSTEMS DESIGNER-C Tonia Attending Provider Dr. Cliff Feliciano Emergency Provider Dr. Connie Palmer Admit Provider Dr. Connie Palmer Other Provider Dr. Jo Bolanos Attending Provider Unavailable Dr. Jo Bolanos Other Provider Unavailable Beryl Mcmillan DO Primary Care Provider Dy Lenka MANCIA Primary Care Provider Dr. Beryl Mcmillan Primary Care Provider Dr. Beryl Mcmillan Referring Provider Kishor ELECTRICAL SYSTEMS DESIGNER, ELECTRICAL SYSTEMS DESIGNER-C Tonia Attending Provider Dr. Natasha Correia Attending Provider Ungerer, ELECTRICAL SYSTEMS DESIGNERPrincess Drummond Primary Care Provider Ungerer, ELECTRICAL SYSTEMS DESIGNERPrincess Drummond Referring Provider ANDREW Baron Attending Provider Dr. Lenka Thomas Attending Provider Dr. Beryl Mcmillan Primary Care Provider Dr. Beryl Mcmillan Referring Provider Kishor ELECTRICAL SYSTEMS DESIGNER, ELECTRICAL SYSTEMS DESIGNER-C Tonia Attending Provider ANDREW Garcia Attending Provider Dr. aNtasha Correia Referring Provider Dr. Natasha Correia Other Provider Dr. Beryl Mcmillan Primary Care Provider Dr. Beryl Mcmillan Referring Provider [place] ELECTRICAL SYSTEMS DESIGNER, ELECTRICAL SYSTEMS DESIGNER-C Tonia Attending Provider Dr. Natasha Correia Attending Provider Ungerer, NP. Drummond Primary Care Provider Ungerer, ELECTRICAL SYSTEMS DESIGNERPrincess McconnellHoda Referring Provider ANDREW Baron Attending Provider Dr. Lenka Thomas Attending Provider ANDREW Garcia Attending Provider Dr. Natasha Correia Referring Provider Dr. Natasha Correia Other Provider JESSA NOEL Attending Unavailable LENKA MARKS Primary Care Unavailable Ungerer, ELECTRICAL SYSTEMS DESIGNER. Hoda Primary Care Provider [phone] Ungerer, ELECTRICAL SYSTEMS DESIGNER. Hoda Referring Provider Kishor ELECTRICAL SYSTEMS DESIGNER, ELECTRICAL SYSTEMS DESIGNER-C Tonia Attending Provider Dr. Natasha Correia Attending Provider Beryl Mcmillan DO Primary Care Provider Irma Coronel CGC Unavailable Natasha Correia MD Unavailable Ungerer MANAGER CONVENTION-RADIO TELEVISION TECHNICAL DIRECTOR, Hoda D Primary Care Provide r Unavailable Rekha Felder MD Unavailable Natan Funes MD Unavailable LENKA RANDOLPH Referring Unavailab MARCUS [place] Attending Unavailable UNGERER, HODA D Primary Care Unavailable MISTY SAAVEDRA Attending Unavailable LENKA RANDOLPH Referring Unavailab le UNGERER, HODA D Primary Care Unavailable MISTY SAAVEDRA Attending Unavailable LENKA RANDOLPH Referring Unavailab le UNGERER, HODA D Primary Care Unavailable MARCUS AMARAL Attending Unavailable NATASHA CORREIA Referring Unavailabl e UNGERER, HODA D Primary Care Unavailable UNGERER, HODA D Primary Care Unavailable NATAN FUNES Attending Unavailable NATAN FUNES Referring Unavailable UNGERER, HODA D Primary Care Unavailable MISTY SAAVEDRA Attending Unavailable LENKA RANDOLPH Referring Unavailab le UNGERER, HODA D Referring Unavailable UNGERER, HODA D Primary Care Unavailable NATAN FUNES Attending Unavailable SUDEEP HOANG Attending Unavailable NATASHA CORREIA Referring Unavailabl e UNGERER, HODA D Primary Care Unavailable LENKA RANDOLPH Referring Unavailab le AMARAL, MARCUS Attending Unavailable UNGERER, HODA D Primary Care Unavailable Ungerer RADIO TELEVISION TECHNICAL DIRECTOR, Hoda D Primary Care Provider [phone] Ungerer RADIO TELEVISION TECHNICAL DIRECTOR, Hoda D Primary Care Provider [phone] Ungerer ELECTRICAL SYSTEMS DESIGNER-C, ELECTRICAL SYSTEMS DESIGNER. Hoda Primary Care Provider Ungerer ELECTRICAL SYSTEMS DESIGNER-C, ELECTRICAL SYSTEMS DESIGNER. Hoda Referring Provider [phone] Portia Garcia CNM Attending Provider [phone] Portia Garcia CNM Referring Provider [phone] Esteban NARVAEZ, Dr. Mena Attending Provider Sammy SHERIDAN-C, Sada Attending Provider Sammy ELECTRICAL SYSTEMS DESIGNER-C, Sada Referring Provider Dr. Lenka Thomas DO Attending Provider Hank NARVAEZ, Dr. Lynne Attending Provider Dr. Maged Mckinney MD Referring Provider Ungerer ELECTRICAL SYSTEMS DESIGNER-C, ELECTRICAL SYSTEMS DESIGNER. Hoda Primary Care Provider Ungerer ELECTRICAL SYSTEMS DESIGNER-C, ELECTRICAL SYSTEMS DESIGNER. Hoda Referring Provider [phone] Portia Garcia CNM Attending Provider [phone] Portia Garcia CNM Referring Provider [phone] Rajesh Orellana MD Attending Provider [phone] Sammy SHERIDAN-C, Sada Attending Provider Sammy SHERIDAN-C, Sada Referring Provider Dr. Lenka Thomas DO Attending Provider Dr. Maged Mckinney MD Attending Provider Dr. Maged Mckinney MD Referring Provider Ungerer ELECTRICAL SYSTEMS DESIGNER-C, ELECTRICAL SYSTEMS DESIGNER. Hoda Primary Care Provider Ungerer ELECTRICAL SYSTEMS DESIGNER-C, ELECTRICAL SYSTEMS DESIGNER. Hoda Referring Provider Portia Garcia CNM Attending Provider Portia Garcia CNM Referring Provider Ungerer ELECTRICAL SYSTEMS DESIGNER-C, Hoda Primary Care Provider [phone] Ungerer ELECTRICAL SYSTEMS DESIGNER-C, Hoda Referring Provider [phone] Esteban NARVAEZ, Dr. Mena Attending Provider Kishor ELECTRICAL SYSTEMS DESIGNER-CTonia Attending Provider Crow Garcia Attending Provider Candida Liriano Attending Provider Brennan PA-CCollette Primary Care Provider Ungerer ELECTRICAL SYSTEMS DESIGNER-C, Hoda Primary Care Provider [phone] Ungerer ELECTRICAL SYSTEMS DESIGNER-C, Hoda Referring Provider [phone] Sammy ELECTRICAL SYSTEMS DESIGNER-CSada Attending Provider Sammy ELECTRICAL SYSTEMS DESIGNER-CSada Referring Provider Candida Liriano Referring Provider Larry ELECTRICAL SYSTEMS DESIGNER-CSoo Other Provider JENNIFER GERARD Attending Unavailable SELF Referring Unavailable UNGERER, HODA D Primary Care Unavailable RENETTA DEE Attending Unavailable UNGERER, HODA D Primary Care Unavailable RENETTA DEE Attending Unavailable SELF Referring Unavailable UNGERER, HODA D Primary Care Unavailable Ungerer ELECTRICAL SYSTEMS DESIGNER-C, Hoda Primary Care Provider [phone] Ungerer ELECTRICAL SYSTEMS DESIGNER-C, Hoda Referring Provider [phone] Brennan PA-CCollette Referring Provider Ungerer ELECTRICAL SYSTEMS DESIGNER-C, Hoda Primary Care Provider [phone] Ungerer ELECTRICAL SYSTEMS DESIGNER-C, Hoda Referring Provider [phone] ANGELI DALE CNP Admitting Unavailable ANGELI DALE CNP Primary Care Unavailable COLLETTE AMIN Consulting Unavailable ANGELI DALE CNP Attending Unavailable PROVIDER, UNKNOWN Consulting Unavailable ACOSTA, DULCE Admitting Unavailable ACOSTA, DULCE Primary Care Unavailable ACOSTA, DULCE Attending Unavailable HILLS, COLLETTE Consulting Unavailable PROVIDER, UNKNOWN Consulting Unavailable UNGERER, HODA ELECTRICAL SYSTEMS DESIGNER Admitting Unavailable UNGERER, HODA ELECTRICAL SYSTEMS DESIGNER Primary Care Unavailable UNGERER, HODA ELECTRICAL SYSTEMS DESIGNER Attending Unavailable ACOSTA, DULCE Admitting Unavailable ACOSTA, DULCE Primary Care Unavailable ACOSTA, DULCE Attending Unavailable UNGERER, HODA ELECTRICAL SYSTEMS DESIGNER Referring Unavailable UNGERER, HODA ELECTRICAL SYSTEMS DESIGNER Consulting Unavailable PROVIDER, UNKNOWN Consulting Unavailable UNGERER, HODA ELECTRICAL SYSTEMS DESIGNER Primary Care Unavailable UNGERER, HODA ELECTRICAL SYSTEMS DESIGNER Attending Unavailable UNGERER, HODA ELECTRICAL SYSTEMS DESIGNER Admitting Unavailable ABRAZO CENTRAL CAMPUSBURGER, CORTNEY Attending Unavailable ABRAZO CENTRAL CAMPUSBURG, [facility] Primary Care Unavailable MARBURGER, CORTNEY Admitting Unavailable TILLY, COLLETTE Consulting Unavailable PROVIDER, UNKNOWN Consulting Unavailable UNGERER, HODA ELECTRICAL SYSTEMS DESIGNER Referring Unavailable UNGERER, HODA ELECTRICAL SYSTEMS DESIGNER Consulting Unavailable JO PETERSEN DO Attending Unavailable JO PETERSEN DO Primary Care Unavailable JO PETERSEN DO Admitting Unavailable PROVIDER, UNKNOWN Consulting Unavailable EMY PRICE DO Admitting Unavailable ALBERTEMY KELLY DO Primary Care Unavailable EMY PRICE DO Attending Unavailable ANGELI DALE RADIO TELEVISION TECHNICAL DIRECTOR Referring Unavailable ANGELI DALE RADIO TELEVISION TECHNICAL DIRECTOR Consulting Unavailable PROVIDER, UNKNOWN Consulting Unavailable UNGERER, HODA ELECTRICAL SYSTEMS DESIGNER Attending Unavailable UNGERER, HODA ELECTRICAL SYSTEMS DESIGNER Admitting Unavailable UNGERER, HODA ELECTRICAL SYSTEMS DESIGNER Primary Care Unavailable TILLY, COLLETTE Consulting Unavailable TILLY, COLLETTE Attending Unavailable TILLY, COLLETTE Primary Care Unavailable TILLY, COLLETTE Admitting Unavailable PROVIDER, UNKNOWN Consulting Unavailable CANDIDA LOCO Admitting Unavailable CANDIDA LOCO Primary Care Unavailable CANDIDA LOCO PA Attending Unavailable TILLY, COLLETTE Consulting Unavailable PROVIDER, UNKNOWN Consulting Unavailable UNGERER, HODA ELECTRICAL SYSTEMS DESIGNER Attending Unavailable UNGERER, HODA ELECTRICAL SYSTEMS DESIGNER Admitting Unavailable UNGERER, HODA ELECTRICAL SYSTEMS DESIGNER Primary Care Unavailable XAVIER, SOO Admitting Unavailable BORCARLINER, SOO Primary Care Unavailable SOO AMIN Attending Unavailable UNGERER, HODA ELECTRICAL SYSTEMS DESIGNER Consulting Unavailable PROVIDER, UNKNOWN Consulting Unavailable HILLS, COLLETTE Consulting Unavailable TILLY, COLLETTE Primary Care Unavailable TILLY, COLLETTE Admitting Unavailable TILLY, COLLETTE Attending Unavailable PROVIDER, UNKNOWN Consulting Unavailable UNGERER, HODA ELECTRICAL SYSTEMS DESIGNER Primary Care Unavailable UNGERER, HODA ELECTRICAL SYSTEMS DESIGNER Consulting Unavailable UNGERER, HODA ELECTRICAL SYSTEMS DESIGNER Attending Unavailable UNGERER, HODA ELECTRICAL SYSTEMS DESIGNER Admitting Unavailable PROVIDER, UNKNOWN Consulting Unavailable FRANK CRAFT T Admitting Unavailable VENANCIO, FRANK T Primary Care Unavailable VENANCIOFRANK GROSS T Attending Unavailable HILLS, COLLETTE Consulting Unavailable PROVIDER, UNKNOWN Consulting Unavailable RICHARD, SONYA E Admitting Unavailable RICHARD, SONYA E Primary Care Unavailable RICHARD, SONYA E Attending Unavailable HILLS, COLLETTE Consulting Unavailable HILLS, COLLETTE Referring Unavailable PROVIDER, UNKNOWN Consulting Unavailable EMY PRICE DO Admitting Unavailable EMY PRICE DO Primary Care Unavailable EMY PRICE DO Attending Unavailable UNGERER, HODA ELECTRICAL SYSTEMS DESIGNER Referring Unavailable UNGERER, HODA ELECTRICAL SYSTEMS DESIGNER Consulting Unavailable PROVIDER, UNKNOWN Consulting Unavailable UNGERER, HODA ELECTRICAL SYSTEMS DESIGNER Referring Unavailable UNGERER, HODA ELECTRICAL SYSTEMS DESIGNER Consulting Unavailable JO PETERSEN DO Attending Unavailable JO PETERSEN DO Primary Care Unavailable JO PETERSEN DO Admitting Unavailable PROVIDER, UNKNOWN Consulting Unavailable BRIGHT CONCEPCION Admitting Unavailable CONCEPCIONBRIGHT Ricardo Primary Care Unavailable BRIGHT CONCEPCION Attending Unavailable UNGERER, HODA ELECTRICAL SYSTEMS DESIGNER Referring Unavailable UNGERER, HODA ELECTRICAL SYSTEMS DESIGNER Consulting Unavailable PROVIDER, UNKNOWN Consulting Unavailable TILLY, COLLETTE Consulting Unavailable MARBURGER, CORTNEY Attending Unavailable MARBURGER, CORTNEY Primary Care Unavailable MARBURGER, CORTNEY Admitting Unavailable PROVIDER, UNKNOWN Consulting Unavailable Portia Garcia Referring Unavailable Portia Garcia Attending Unavailable Ungerer, Hoda Primary Care Unavailable Sada Christianson Referring Unavailable Sada Christianson Attending Unavailable Ungerer, Hoda Primary Care Unavailable Natasha Correia Attending Unavailable Natasha Correia Referring Unavailable Sada Christianson Attending Unavailable Ungerer, Hoda Primary Care Unavailable aSda Christianson Attending Unavailable Ungerer, Hoda Primary Care Unavailable Ungerer, Hoda Referring Unavailable Ungerer, Hoda Primary Care Unavailable Crow Garcia Attending Unavailable Ungerer, Hoda Referring Unavailable Sada Christianson Attending Unavailable Sada Christianson Referring Unavailable [place], Collette Primary Care Unavailable Ungerer, Hoda Primary Care Unavailable Natasha Correia Attending Unavailable Natasha Correia Referring Unavailable Lenka Thomas Referring Unavailabl e Vande Velde, Lenka Attending Unavailabl e Ungerer, Hoda Primary Care Unavailable Portia Garcia Attending Unavailable Natasha Correia Consulting Unavailable Natasha Correia Admitting Unavailable Natasha Correia Referring Unavailable Portia Garcia Referring Unavailable Portia Garcia Attending Unavailable Ungerer, Hoda Primary Care Unavailable Portia Garcia Referring Unavailable Portia Garcia Attending Unavailable Ungerer, Hoda Primary Care Unavailable Ungerer, Hoda Primary Care Unavailable Sada Christianson Referring Unavailable Sada Christianson Attending Unavailable Wartmann Christfawn Referring Unavailabl e Warmelbaann, Maged Attending Unavailabl e Ungerer, Hoda Primary Care Unavailable Portia Garcia Referring Unavailable Ungerer, Hoda Primary Care Unavailable Portia Garcia Attending Unavailable Ungerer, Hoda Primary Care Unavailable Natasha Correia Attending Unavailable Natasha Correia Referring Unavailable Sada Christianson Attending Unavailable [facility] Primary Care Unavailable Sada Christianson Attending Unavailable Ungerer, Hoda Primary Care Unavailable Ungerer, Hoda Referring Unavailable Ungerer, Hoda Referring Unavailable Ungerer, Hoda Primary Care Unavailable Vande Tamara, Lenka Attending Unavailabl e Natasha Correia Attending Unavailable Ungerer, Hoda Primary Care Unavailable Natasha Correia Admitting Unavailable Natasha Correia Attending Unavailable Natasha Correia Referring Unavailable [facility] Primary Care Unavailable Candida Loco Referring Unavailable Candida Loco Attending Unavailable Soo Amin Consulting Unavailable [facility] Primary Care Unavailable [facility] Referring Unavailable Candida Loco Attending Unavailable Sada Christianson Attending Unavailable [facility] Primary Care Unavailable [facility] Referring Unavailable Sada Christianson Attending Unavailable Ungerer, Hoda Primary Care Unavailable Ungerer, Hoda Referring Unavailable Ungerer, Hoda Referring Unavailable Portia Garcia Attending Unavailable Ungerer, Hoda Primary Care Unavailable Ungerer, Hoda Referring Unavailable Rajesh Orellana Attending Unavailable Ungerer, Hoda Primary Care Unavailable Ungerer, Hoda Primary Care Unavailable Ungerer, Hoda Referring Unavailable Sada Christianson Attending Unavailable Potria Garcia Attending Unavailable Ungerer, Hoda Primary Care Unavailable Ungerer, Hoda Referring Unavailable Sada Christianson Attending Unavailable Ungerer, Hoda Primary Care Unavailable Ungerer, Hoda Referring Unavailable Ungerer, Hoda Primary Care Unavailable Lenka Thomas Attending Unavailabl e Ungerer, Hoda Referring Unavailable Ungerer, Hoda Referring Unavailable Rajesh Orellana Attending Unavailable Ungerer, Hoda Primary Care Unavailable Ungerer, Hoda Referring Unavailable Portia Garcia Attending Unavailable Ungerer, Hoda Primary Care Unavailable [facility] Primary Care Unavailable Candida Loco Attending Unavailable Ungerer, Hoda Referring Unavailable Ungerer, Hoda Primary Care Unavailable Lenka Thomas Attending Unavailabl e Ungerer, Hoda Referring Unavailable Portia Garcia Attending Unavailable Ungerer, Hoda Primary Care Unavailable Ungerer, Hoda Referring Unavailable Ungerer, Hoda Primary Care Unavailable Natasha Correia Attending Unavailable Ungerer, Hoda Referring Unavailable Ungerer, Hoda Primary Care Unavailable MarcanthonyNatasha Attending Unavailable Ungerer, Hoda Referring Unavailable Crow Garcia Attending Unavailable Ungerer, Hoda Primary Care Unavailable Ungerer, Hoda Referring Unavailable Ungerer, Hoda Primary Care Unavailable Rosamaria Hennessy Attending Unavailabl e MarcanthonyNatasha Referring Unavailable Marcanthony, Natasha Attending Unavailable MarcanthonyNatasha Consulting Unavailable VirajanthonyNatasha Referring Unavailable Frank Mccoy Attending Unavailable Ungerer, Hoda Referring Unavailable Ungerer, Hoda Primary Care Unavailable RejidourRajesh Attending Unavailable Ungerer, Hoda Primary Care Unavailable Kishor ELECTRICAL SYSTEMS DESIGNERTonia Attending Unavailable Ungerer, Hoda Referring Unavailable Ungerer, Hoda Primary Care Unavailable Sada Christianson Attending Unavailable Sada Christianson Attending Unavailable [facility] Primary Care Unavailable [place] NARVAEZ, Dr. Kaur Attending Provider Dr. Natasha Correia MD Referring Provider [phone] Allergies Allergy Classification Reported Allergen(s) Allergy Type Date of Onset Reaction(s) Facility (20 sources) Sulfamethoxazole Drug Allergy 07-04-19 [facility] (20 sources) Trimethoprim Drug Allergy 09-06-19 21 [facility] Work Phone: (20 sources) Sulfamethoxazole / Trimethoprim; Translations: [sulfamethoxazole-t rimethoprim] Drug Allergy 07-01-19 Rash, Hives, Itching, Blistering Rash [facility] (5 sources) Sulfamethoxazole Allergy to substance 07-04-19 Rash [facility] (2 sources) Seasonal allergy; Translations: [SEASONAL ALLERGIES] Propensity to adverse reactions 03-30-19 24 Itching [facility] (2 sources) Other; Translations: [OTHER] Propensity to adverse reactions 03-08-20 24 Hives [facility] (2 sources) Sulfamethoxazole / Trimethoprim; Translations: [SULFAMETHOXAZOLE-T RIMETHOPRIM] Drug Allergy 07-01-19 [facility] Repository (20 sources) Morphine; Translations: [MORPHINE] Drug Allergy 04-27-19 Other: See Comments [facility] (18 sources) rimegepant; Translations: [RIMEGEPANT] Drug Allergy 04-27-19 Rash [facility] (1 source) Morphine Drug Allergy [facility] Repository (1 source) Sulfamethoxazole / Trimethoprim Drug Allergy [facility] Repository (1 source) Sulfonamides (Antibiotic) Drug allergy (disorder) [facility] Repository (1 source) Morphine Drug Allergy 09-13-19 [facility] Repository (1 source) Sulfamethoxazole Drug Allergy 09-13-19 25 [facility] Repository (1 source) Trimethoprim Drug Allergy 09-13-19 [facility] Repository Medications Current Medications Medication Drug Class(es) Dates Sig (Normalized) Sig (Original) acetaminophen 325 mg / butalbital 50 mg / caffeine 40 mg oral tablet (5 sources) Barbiturate, Central Nervous System Stimulant, Methylxanthine Start: 03-03-2022 End: 03-10-2022 take 1 tablet by mouth every eight hours as needed for headache butalbital-acetami nophen-caffeine 50-325-40 MG tablet TAKE 1 TABLET BY MOUTH EVERY 8 HOURS NEEDED FOR HEADACHE FOR 7 DAYS 0 03/03/2022 Active amitriptyline hydrochloride 100 mg oral tablet (20 sources) Tricyclic Antidepressant Start: 04-21-2024 End: 08-04-2024 take 1 tablet by mouth at bedtime Amitriptyline 100 mg tablet Active 100 mg PO AT BEDTIME 30 4 April 21, 2024 1:00am Start: 02-29-2024 End: 04-21-2024 take 1 tablet by mouth once daily, then take 2 tablets by mouth once daily Amitriptyline 25 mg tablet Discontinued 0 .ROUTE .COMPLEX 60 February 29, 2024 1:00am April 21, 2024 9:42am Take 1 tablet orally nightly for 1 week then 2 tablets nightly thereafter. Start: 01-12-2024 End: 02-29-2024 take 2 tablets by mouth at bedtime Amitriptyline 10 mg tablet Discontinued 20 mg PO AT BEDTIME 60 January 12, 2024 12:00am February 29, 2024 10:35am Start: 09-16-2022 amitriptyline (Elavil) 10 MG tablet TAKE 2 TABLETS BY MOUTH AT BEDTIME FOR 7 DAYS,THEN 1 AT BEDTIME FOR 7 DAYS,THEN 1 EVERY OTHER DAY FOR 7 DAYS THEN STOP 0 09/16/2022 Active Start: 03-02-2022 End: 02-17-2023 Amitriptyline 25 mg tablet Discontinued 25 mg AT BEDTIME April 03, 2022 1:00am February 17, 2023 12:14pm Start: 07-30-2020 End: 04-22-2021 take 2 tablets by mouth at bedtime Amitriptyline 10 mg tablet Discontinued 20 mg PO AT BEDTIME 60 2 April 02, 2021 2:00pm April 22, 2021 12:04pm Start: 07-30-2020 End: 04-22-2021 take 20 mg by mouth at bedtime Amitriptyline Discontin ued 20 MG PO AT BEDTIME 60 April 02, 2021 2:00pm April 22, 2021 12:04pm Start: 07-09-2020 End: 07-30-2020 take 1 tablet by mouth at bedtime Amitriptyline 10 mg tablet Discontinued 10 mg PO AT BEDTIME 30 0 July 09, 2020 12:00am July 30, 2020 10:12am End: 04-27-2024 amitriptyline (ELAVIL) 10 mg tablet Take 25 mg by mouth daily at bedtime. 04/27/2024 Discontinued Comment on above: Take 25 mg by mouth daily at bedtime. Atogepant (1 source) Start: 10-04-19 take 1 tablet by mouth once daily Atogepant (Qulipta) 10 mg tablet Active 10 mg PO daily October 03, 2024 12:00am atogepant (QULIPTA) 10 mg tablet (5 sources) Start: 09-08-19 End: 12-07-19 take 1 tablet by mouth once daily atogepant (QULIPTA) 10 mg tablet Indications: Intractable chronic migraine without aura and without status migrainosus , Medication overuse headache Take 1 tablet by mouth once daily. 30 tablet 2 09/07/2024 12/06/2024 Active cyclobenzaprine hydrochloride 10 mg oral tablet (20 sources) Muscle Relaxant Start: 07-13-19 take 1 tablet by mouth every eight hours as needed cyclobenzaprine (FLEXERIL) 10 mg tablet Take 1 tablet by mouth three times daily as needed for muscle spasm. 18 tablet 07/12/2022 Active Comment on above: Take 1 tablet by irais three times daily as needed for muscle spasm. Diltiazem 2% / Lidocaine 5% Ointment (Compound) [Diltiazem 2%/Lidocaine 5% Ointment (Compound)] (Diltiazem 2%/Lidocaine 5% ) ointment (1 source) Start: 09-29-19 Diltiazem 2% / Lidocaine 5% Ointment (Compound) [Diltiazem 2%/Lidocaine 5% Ointment (Compound)] (Diltiazem 2%/Lidocaine 5% ) ointment Active 0 .Route 1 September 28, 2024 12:00am apply to anus twice daily as needed for hemorrhoids docusate sodium 100 mg oral capsule (20 sources) Start: 09-07-19 take 1 capsule by mouth once daily Docusate Sodium 100 mg capsule Active 100 mg PO daily 90 September 06, 2024 12:00am Start: 05-26-2023 End: 10-14-2023 take 1 capsule by mouth twice daily Docusate Sodium (Colace) 100 mg capsule Discontinued 100 mg PO TWICE A DAY May 26, 2023 1:00am October 14, 2023 9:30am constipation Start: 03-02-2023 End: 11-10-2023 take 1 capsule by mouth once daily Docusate Sodium (Colace) 100 mg capsule Discontinued 100 mg PO DAILY November 03, 2023 12:00am November 10, 2023 8:51am DULoxetine 60 mg delayed release oral capsule (7 sources) Serotonin and Norepinephrine Reuptake Inhibitor Start: 06-16-2022 End: 04-27-2024 take 1 capsule by mouth once daily DULoxetine (CYMBALTA) 60 mg capsule Take 60 mg by mouth once daily. 06/16/2022 04/27/2024 Discontinued Comment on above: Take 60 mg by mouth once daily. fluticasone propionate 0.093 mg/actuat metered dose nasal spray (20 sources) Corticosteroid Start: 09-25-2020 fluticasone propionate (XHANCE) 93 mcg/actuation nasal spray Use 2 Sprays in the nose twice daily. 09/25/2020 Active Start: 02-18-2020 take 2 spray(s) by [facility] once daily fluticasone (FLONASE) 50 mcg/actuation nasal spray Indications: Seasonal allergic rhinitis, unspecified trigger Use 2 Sprays in each nostril once daily. Rinse mouth after use. 1 Bottle 02/18/2020 Active Start: 02-02-2019 End: 02-22-2019 Fluticasone Propionate 1 SPR AY spray,suspension Discontinued 2 NMA NASAL DAILY February 02, 2019 1:00am February 22, 2019 5:04pm allergy Start: 02-02-2019 End: 02-22-2019 Fluticasone Propionate Disco ntinued 2 SPRAY NASAL DAILY February 02, 2019 1:00am February 22, 2019 5:04pm Comment on above: Use 2 Sprays in each nostril once daily. Rinse mouth after use. Use 2 Sprays in the nose twice daily. hydrocortisone acetate 25 mg rectal suppository (19 sources) Corticosteroid Start: 021 hydrocortisone (ANUSOL-HC) 25 mg suppository 1 Suppository by RECTAL route twice daily. 24 Suppository 2 07/25/2020 Active Comment on above: 1 Suppository by REC ANALY route twice daily. hydrOXYzine hydrochloride 10 mg oral tablet (20 sources) Antihistamine Start: End: take 1 tablet by mouth every eight hours as needed hydrOXYzine HCl (ATARAX) 10 mg tablet Take 1 tablet by mouth three times a day as needed. 30 tablet 05/24/2024 Active Start: 02-23-2023 End: 02-27-2023 take 1 capsule by mouth once daily Hydroxyzine Pamoate 25 mg capsule Discontinued 25 mg PO DAILY February 23, 2023 1:00am February 27, 2023 2:55pm Start: 02-02-2023 End: 08-16-2024 take 1 tablet by mouth once daily Hydroxyzine Hcl 25 mg tablet Discontinued 25 mg PO DAILY February 27, 2023 1:00am August 16, 2024 8:05am anxiety Start: 04-11-2021 End: 02-27-2022 take 1 capsule by mouth three to four times daily as needed for anxiety Hydroxyzine Pamoate (Vistaril) 50 mg capsule Discontinued 50 mg PO 3 to 4 times per day as needed for anxiety 60 4 April 11, 2021 1:00am February 27, 2022 5:31pm levothyroxine sodium 0.025 mg oral capsule (20 sources) l-Thyroxine Start: 08-16-2024 take 1 capsule by mouth once daily Levothyroxine 25 mcg capsule Active 25 ug PO daily August 16, 2024 12:00am Start: 12-08-2022 take 1 tablet by irais th once daily levothyroxine (Synthroid, Levoxyl) 50 MCG tablet Take 50 mcg by mouth daily. 0 12/08/2022 Active Start: 08-25-2022 End: 04-20-2024 take 1 tablet by mouth once daily Levothyroxine (Synthroid) 25 mcg tablet Discontinued 25 ug PO DAILY August 25, 2022 12:00am April 20, 2024 9:37am hypothyroid methylPREDNISolone (2 sources) Corticosteroid Start: 05-11-2024 End: 05-17-2024 methylPREDNISolone (MEDROL, SANDIP,) 4 mg Dose-Pack Take as directed 21 tablet 05/11/2024 05/17/2024 Active norethindrone 0.35 mg oral tablet (9 sources) Start: 04-15-2025 take 1 tablet by mouth once daily Norethindrone (Contraceptive) 0.35 mg tablet Active 0.35 mg PO DAILY 19 03July 05, 2024 12:00am start day 1 of menstrual cycle nystatin 100 unt/mg topical ointment (20 sources) Polyene Antifungal Start: 09-14-2024 Nystatin 100,000 unit/gram ointment Active 1 NMA TOPICAL daily 30 0 September 14, 2024 12:00am as needed to affected area Start: 11-02-2023 End: 05-02-2024 Nystatin 100,000 unit/gram c ream Discontinued 1 NMA TOPICAL TWICE A DAY 30 10 November 02, 2023 12:00am May 02, 2024 9:39am Start: 10-01-2019 nystatin (MYCO STATIN) ointment APPLY 2 TIMES A DAY TO BURNING VAGINAL AREA 10/01/2019 Active Comment on above: APPLY 2 TIMES A DAY TO BURNING VAGINAL AREA nystatin 100 unt/mg / triamcinolone acetonide 0.001 mg/mg topical ointment (1 source) Polyene Antifungal, Corticosteroid Start: 01-28-20 End: 02-11-20 nystatin-triamcinolo ne (Mycolog II) ointment Indications: Vulvar burning Apply topically 2 times daily for 14 days. 30 g 0 01/27/2023 02/10/2023 Active pantoprazole 40 mg delayed release oral tablet (20 sources) Proton Pump Inhibitor Start: 05-02-19 take 1 tablet by mouth once daily Pantoprazole (Protonix) 40 mg tablet,delayed release (DR/EC) Active 40 mg PO daily May 02, 2024 1:00am Start: 04-03-2022 End: 02-17-2023 take 1 tablet by mouth once daily Pantoprazole 40 mg tablet,delayed release (DR/EC) Discontinued 40 mg PO DAILY April 03, 2022 1:00am February 17, 2023 12:14pm Start: 03-02-2022 Protonix 40 mg oral enteric coated tablet Dose : 40 mg = 1 tab(s), Oral, qDay, # 30 tab(s), 0 Refill(s) Start Date: 03/02/22 Status: Ordered Start: 06-05-2020 End: 04-08-2021 take 1 tablet by mouth once daily Pantoprazole (Protonix) 40 mg tablet,delayed release (DR/EC) Discontinued 40 mg PO DAILY June 05, 2020 12:00am April 08, 2021 2:03pm Start: 05-28-2020 take 2 tablets by mo [facility] once daily pantoprazole DR (PROTONIX) 20 mg tablet Take 40 mg by mouth once daily. 05/28/2020 Active Comment on above: Take 40 mg by mouth once daily. plecanatide 3 mg oral tablet (1 source) Start: 5 take 1 tablet by mouth once daily Plecanatide (Trulance) 3 mg tablet Active 3 mg PO daily 30 2 September 28, 2024 12:00am Vit-Fe Fumarate-FA ( VITAMIN PO) (1 source) take 1 tablet by mouth once daily Vit-Fe Fumarate-FA ( VITAMIN PO) Take 1 Tab by mouth daily Active sodium chloride 0.111 meq/ml nasal spray (19 sources) Start: 9 sodium chloride (SALINE MIST) 0.65 % nasal spray Indications: Bacterial sinusitis Use 1 [place] in the nose every 6 hours as needed for Cold/Allergy Symptoms. 1 Bottle 01/01/2019 Active Comment on above: Use 1 [place] in the n ose every 6 hours as needed for Cold/Allergy Symptoms. traMADol hydrochloride 50 mg oral tablet (1 source) Opioid Agonist Start: 2 take 50 mg by mouth once daily Tramadol Active 50 MG PO DAILY February 27, 2022 12:00am ubrogepant 100 mg oral tablet (20 sources) Start: 4 End: 4 take 1 tablet by mouth once daily as needed for headache ubrogepant (UBRELVY) 100 mg tablet Take 1 tablet by mouth once daily as needed for migraine headache (see administration instructions). 10 tablet 1 08/04/2024 Active Start: 10-29-2020 End: 02-17-2023 Ubrogepant (Ubrelvy) 100 mg tablet Discontinued 100 mg PO ONCE as needed for migraine headache 48 0 April 22, 2021 12:03pm February 17, 2023 12:14pm may repeat dose once after 2 hours if needed; max 2 tabs per day Start: 07-30-2020 End: 10-29-2020 Ubrogepant (Ubrelvy) 100 mg tablet Discontinued 0 .ROUTE .COMPLEX 10 July 30, 2020 10:04am October 29, 2020 9:54am migraine headache Take one tablet every 2 hours as needed for headache up to 2 tablets per day. Start: 06-04-2020 End: 07-30-2020 take 2 tablets by mouth once daily as needed for headache Ubrogepant (Ubrelvy) 100 mg tablet Discontinued 100 mg PO ONCE as needed for migraine headache 10 June 26, 2020 9:35am July 30, 2020 10:10am as a single dose; may repeat once in >=2 hours after first dose if needed; max 2 tabs/day Start: 05-22-2020 End: 04-27-2024 ubrogepant (UBRELVY) 50 mg t ablet Take 100 mg by mouth as needed. 05/22/2020 04/27/2024 Discontinued Start: 05-22-2020 End: 06-04-2020 take 1 tablet by mouth once as needed for headache Ubrogepant (Ubrelvy) 50 mg tablet Discontinued 50 mg PO ONCE as needed for migraine headache 10 May 22, 2020 1:00am June 04, 2020 9:16am take as a single dose; may repeat once in >=2 hours after first dose if needed Comment on above: Take 100 mg by mouth . 24 hr divalproex sodium 500 mg extended release oral tablet (10 sources) Mood Stabilizer, Anti-epileptic Agent Start: 07-19-2024 divalproex ER (DEPAKOTE ER) 500 mg 24 hr tablet Take 2 tabs nightly for five nights then 1 tab nightly for five nights then stop 15 tablet 07/19/2024 Active Completed/Discontinued Medications Medication Drug Class(es) Dates Sig (Normalized) Sig (Original) acetaminophen 500 mg oral tablet (14 sources) Start: 07-17-2023 End: 10-14-2023 take 2 tablets by mouth every six hours as needed for headache Acetaminophen (Tylenol Extra Strength) 500 mg tablet Discontinued 1000 mg PO EVERY 6 HOURS as needed for headache July 17, 2023 12:00am October 14, 2023 9:30am acetaminophen 325 mg / oxyCODONE hydrochloride 5 mg oral tablet (20 sources) Opioid Agonist Start: 09-29-2023 End: 10-14-2023 Oxycodone-Acetamino phen (Percocet) 5-325 mg tablet Discontinued 1 {tbl} PO EVERY 6 HOURS as needed for pain 20 7 0 September 29, 2023 October 14, 2023 9:30am delivery delivered Gestational diabetes mellitus (GDM) Encounter for delivery without indication Gestational diabetes mellitus in , insulin controlled Start: 02-10-2019 End: 02-17-2019 Oxycodone-Acetaminophen 1 TA BLET tablet Discontinued 1 - 2 {tbl} PO EVERY 4 HOURS NEEDED as needed for Pain 28 7 0 February 10, 2019 February 16, 2019 1:00am February 17, 2019 1:09am Other acute postprocedural pain Start: 02-10-2019 End: 02-17-2019 take 1 tablet by mouth every four hours as needed Oxycodone-Acetaminophen Discontinued 1 - 2 TABLET PO EVERY 4 HOURS NEEDED 28 7 February 10, 2019 February 17, 2019 1:09am 200 actuat albuterol 0.09 mg/actuat dry powder inhaler (20 sources) beta2-Adrenergic Agonist Start: 01-13-2019 End: 02-22-2019 Albuterol Sulfate 90 mcg/actuation aerosol powdr breath activated Discontinued 2 NMA INHALATION EVERY 6 HOURS January 13, 2019 12:00am February 22, 2019 5:04pm Start: 01-13-2019 End: 02-22-2019 Albuterol Sulfate Discontinu ed 2 INH INHALATION EVERY 6 HOURS January 13, 2019 12:00am February 22, 2019 5:04pm amLODIPine 5 mg oral tablet (20 sources) Dihydropyridine Calcium Channel Elaina Start: 04-22-2021 End: 02-27-2022 take 1 tablet by mouth once daily Amlodipine 5 mg tablet Discontinued 5 mg PO DAILY April 22, 2021 11:40am February 27, 2022 5:31pm Start: 04-08-2021 End: 04-22-2021 take 2 tablets by mouth once daily Amlodipine 5 mg tablet Discontinued 10 mg PO DAILY April 08, 2021 2:03pm April 22, 2021 11:40am Start: 04-08-2021 End: 04-22-2021 take 10 mg by mouth once daily Amlodipine Discontinued 10 MG PO DAILY April 08, 2021 2:03pm April 22, 2021 11:40am Start: 01-22-2021 End: 04-08-2021 take 1 tablet by mouth once daily Amlodipine 5 mg tablet Discontinued 5 mg PO DAILY 90 April 02, 2021 2:00pm April 08, 2021 2:03pm Start: 11-09-2020 End: 04-27-2024 take 2 tablets by mouth once daily in the morning amLODIPine (NORVASC) 2.5 mg tablet Take 5 mg by mouth every morning. 11/09/2020 04/27/2024 Discontinued Start: 10-12-2020 End: 01-22-2021 take 1 tablet by mouth once daily in the morning Amlodipine 2.5 mg tablet Discontinued 2.5 mg PO EVERY MORNING 90 January 10, 2021 1:51pm January 22, 2021 1:51pm Comment on above: Take 5 mg by mouth e very morning. amoxicillin 500 mg oral capsule (20 sources) Penicillin-class Antibacterial Start: 01-17-20 End: 02-18-20 take 1 capsule by mouth twice daily Amoxicillin 500 mg capsule Discontinued 500 mg PO TWICE A DAY 14 0 January 16, 2023 12:00am February 17, 2023 12:13pm Start: 07-12-2020 End: 07-19-2020 take 1 tablet by mouth three times daily Amoxicillin 500 mg tablet Discontinued 500 mg PO THREE TIMES A DAY 21 7 0 July 12, 2020 12:00am July 18, 2020 12:00am July 19, 2020 12:01am Start: 01-06-2019 End: 01-13-2019 take 1 tablet by mouth twice daily Amoxicillin 875 MG tablet Discontinued 875 mg PO TWICE A DAY January 06, 2019 12:00am January 13, 2019 4:47pm resp infection amoxicillin 875 mg / clavulanate 125 mg oral tablet (20 sources) Penicillin-class Antibacterial Start: 04-02-2019 End: 04-05-2019 Amoxicillin-Pot Clavulanate (Augmentin) 875-125 mg tablet Discontinued 1 {tbl} PO TWICE A DAY 14 0 April 02, 2019 1:00am April 05, 2019 10:01am Start: 02-02-2019 End: 02-22-2019 Amoxicillin-Pot Clavulanate 1 EACH tablet Discontinued 1 NMA PO TWICE A DAY February 02, 2019 1:00am February 22, 2019 5:03pm sinus infection Start: 02-02-2019 End: 02-22-2019 Amoxicillin-Pot Clavulanate Discontinued 1 EACH PO TWICE A DAY February 02, 2019 1:00am February 22, 2019 5:03pm Start: 06-12-2018 End: 06-22-2018 Amoxicillin-Pot Clavulanate (Augmentin) 875-125 mg tablet Discontinued 1 {tbl} PO TWICE A DAY 10 June 12, 2018 12:00am June 21, 2018 12:00am June 22, 2018 12:07am aspirin 81 mg delayed release oral tablet (20 sources) Platelet Aggregation Inhibitor, Nonsteroidal Anti-inflammatory Drug Start: 11-03-2023 End: 11-10-2023 Aspirin (Adult Low Dose Aspirin) 81 mg tablet,delayed release (DR/EC) Discontinued 81 mg PO DAILY November 03, 2023 12:00am November 10, 2023 8:51am Start: 05-22-2023 End: 10-14-2023 take 1 tablet by mouth once daily Aspirin 81 mg tablet,delayed release (DR/EC) Discontinued 81 mg PO DAILY May 22, 2023 1:00am October 14, 2023 9:30am preeclampsia atogepant (QULIPTA) 60 mg tablet (3 sources) Start: 04-27-2024 End: 05-11-2024 take 1 tablet by mouth once daily atogepant (QULIPTA) 60 mg tablet Indications: Intractable chronic migraine without aura and without status migrainosus Take 1 tablet (60 mg) by mouth once daily. 30 tablet 2 04/27/2024 05/11/2024 Discontinued Start: 04-27-2024 take 1 tablet by irais th once daily atogepant (QULIPTA) 60 mg tablet Indications: Intractable chronic migraine without aura and without status migrainosus Take 1 tablet (60 mg) by mouth once daily. 30 tablet 2 04/27/2024 Active azithromycin 500 mg oral tablet (20 sources) Macrolide Antimicrobial Start: 01-13-2019 End: 01-26-2019 take 1 tablet by mouth once daily Azithromycin 500 mg tablet Discontinued 500 mg PO DAILY January 13, 2019 12:00am January 26, 2019 5:04pm benzonatate 100 mg oral capsule (20 sources) Non-narcotic Antitussive Start: 06-12-2018 End: 06-17-2018 take 1 capsule by mouth three times daily as needed for cough Benzonatate (Tessalon Perles) 100 mg capsule Discontinued 100 mg PO THREE TIMES A DAY as needed for cough 14 0 June 12, 2018 12:00am June 16, 2018 12:00am June 17, 2018 12:08am Cough Blood-Glucose Meter misc (12 sources) Start: 07-29-2023 End: 07-29-2023 Blood-Glucose Meter misc Discontinued 0 .MEDSUPPLY 1 0 July 29, 2023 12:00am July 29, 2023 11:26am As directed- Test fasting and 2 hours after meals Start: 07-29-2023 End: 07-29-2023 Blood-Glucose Meter misc Dis continued 0 .MEDSUPPLY 1 July 29, 2023 12:00am July 29, 2023 11:26am As directed- Test fasting and 2 hours after meals Start: 07-29-2023 End: 07-29-2023 Blood-Glucose Meter misc Dis continued 0 .MEDSUPPLY 1 July 28, 2023 11:00pm July 29, 2023 10:26am As directed- Test fasting and 2 hours after meals Blood-Glucose Sensor (Freest yle Rachel 3 Sensor) device (12 sources) Start: 08-03-2023 End: 08-03-2023 Blood-Glucose Sensor (Freest yle Rachel 3 Sensor) device Discontinued 0 .Route 1 August 03, 2023 12:00am August 03, 2023 4:26pm As directed Start: 08-03-2023 End: 08-03-2023 Blood-Glucose Sensor (Freest yle Rachel 3 Sensor) device Discontinued 0 .Route 1 August 03, 2023 12:00am August 03, 2023 4:26pm As directed Start: 08-03-2023 End: 08-03-2023 Blood-Glucose Sensor (Freest yle Rachel 3 Sensor) device Discontinued 0 .Route 1 August 02, 2023 11:00pm August 03, 2023 3:26pm As directed boric acid suppository (20 sources) Start: 06-05-2020 End: 09-05-2020 boric acid suppository Disco ntinued VAGINAL June 05, 2020 1:38pm September 05, 2020 2:36pm Start: 06-05-2020 End: 09-05-2020 boric acid suppository Disco ntinued VAGINAL 0 June 05, 2020 12:00am September 05, 2020 2:36pm Start: 06-05-2020 End: 09-05-2020 boric acid suppository Disco ntinued VAGINAL June 04, 2020 11:00pm September 05, 2020 1:36pm Start: 06-05-2020 End: 09-05-2020 boric acid suppository Disco ntinued VAGINAL June 05, 2020 12:00am September 05, 2020 2:36pm cephalexin 500 mg oral capsule (20 sources) Cephalosporin Antibacterial Start: 04-29-2024 End: 05-18-2024 take 1 capsule by mouth twice daily Cephalexin 500 mg capsule Discontinued 500 mg PO TWICE A DAY 14 0 April 29, 2024 1:00am May 18, 2024 9:18am Start: 03-27-2018 End: 04-13-2018 take 1 capsule by mouth every twelve hours Cephalexin 500 MG capsule Discontinued 500 mg PO EVERY 12 HOURS March 27, 2018 1:00am April 13, 2018 11:13am ciprofloxacin 500 mg oral tablet (20 sources) Quinolone Antimicrobial Start: 06-06-2019 End: 07-06-2019 take 1 tablet by mouth twice daily Ciprofloxacin Hcl 500 MG tablet Discontinued 500 mg PO TWICE A DAY 14 0 June 06, 2019 12:00am July 06, 2019 1:57pm clindamycin 20 mg/ml vaginal cream (20 sources) Lincosamide Antibacterial Start: 03-14-2020 End: 03-19-2020 Clindamycin Phosphate 2 % cream Discontinued 1 NMA VAGINAL AT BEDTIME 40 5 0 March 14, 2020 1:00am March 18, 2020 1:00am March 19, 2020 1:02am Start: 03-14-2020 End: 03-19-2020 Clindamycin Phosphate Discon tinued 1 APPFUL VAGINAL AT BEDTIME 40 5 March 14, 2020 1:00am March 19, 2020 1:02am Start: 02-13-2020 End: 02-18-2020 Clindamycin Phosphate (Cleoc in) 2 % cream Discontinued 1 NMA VAGINAL AT BEDTIME 40 5 0 February 13, 2020 1:00am February 17, 2020 1:00am February 18, 2020 1:02am Start: 02-13-2020 End: 02-18-2020 Clindamycin Phosphate (Cleoc in) 2 % cream Discontinued 1 APPFUL VAGINAL AT BEDTIME 40 5 February 13, 2020 1:00am February 18, 2020 1:02am Start: 10-31-2019 End: 11-05-2019 Clindamycin Phosphate 2 % cr eam Discontinued 1 NMA VAGINAL AT BEDTIME 40 5 0 October 31, 2019 12:00am November 04, 2019 12:00am November 05, 2019 12:02am Start: 10-31-2019 End: 11-05-2019 Clindamycin Phosphate Discon tinued 1 APPFUL VAGINAL AT BEDTIME 40 5 October 31, 2019 12:00am November 05, 2019 12:02am Start: 08-04-2019 End: 08-09-2019 Clindamycin Phosphate (Cleoc in) 2 % cream Discontinued 1 NMA VAGINAL AT BEDTIME 40 5 0 August 04, 2019 12:00am August 08, 2019 12:00am August 09, 2019 12:02am Start: 08-04-2019 End: 08-09-2019 Clindamycin Phosphate (Cleoc in) 2 % cream Discontinued 1 APPFUL VAGINAL AT BEDTIME 40 5 August 04, 2019 12:00am August 09, 2019 12:02am dicyclomine hydrochloride 10 mg oral capsule (20 sources) Anticholinergic Start: 12-13-2019 End: 01-02-2020 take 2 capsules by mouth three times daily before mealtime Dicyclomine 10 MG capsule Discontinued 20 mg PO THREE TIMES DAILY BEFORE MEALS December 13, 2019 12:00am January 02, 2020 9:11am Start: 12-13-2019 End: 01-02-2020 take 20 mg by mouth three times daily before mealtime Dicyclomine Discontinued 20 MG PO THREE TIMES DAILY BEFORE MEALS December 13, 2019 12:00am January 02, 2020 9:11am Start: 08-13-2019 End: 10-26-2019 take 2 capsules by mouth every four to six hours as needed for pain Dicyclomine 10 MG capsule Discontinued 20 mg PO . Q4-6H as needed for abdominal pain August 13, 2019 10:07pm October 26, 2019 10:23am Start: 08-13-2019 End: 10-26-2019 take 20 mg by mouth every four to six hours Dicyclomine Discontinued 20 MG PO . Q4-6H August 13, 2019 10:07pm October 26, 2019 10:23am Start: 06-06-2019 End: 07-06-2019 take 2 capsules by mouth three times daily before mealtime Dicyclomine 10 MG capsule Discontinued 20 mg PO THREE TIMES DAILY BEFORE MEALS June 06, 2019 12:00am July 06, 2019 1:57pm Start: 06-06-2019 End: 07-06-2019 take 20 mg by mouth three times daily before mealtime Dicyclomine Discontinued 20 MG PO THREE TIMES DAILY BEFORE MEALS June 06, 2019 12:00am July 06, 2019 1:57pm eletriptan 20 mg oral tablet (20 sources) Serotonin-1b and Serotonin-1d Receptor Agonist Start: 10-29-2020 End: 04-27-2024 take 1 tablet by mouth every two hours Eletriptan 20 mg tablet Discontinued 0 PO .COMPLEX 9 2 January 22, 2021 1:53pm February 27, 2022 5:31pm take 1 tab at onset of headache; if no relief may repeat 1 tab after at least 2 hrs; max = 2 tabs/24 hours Comment on above: Take 20 mg by mouth as needed. Norethindrone-E.E stradiol-Iron (20 sources) Estrogen Start: 03-24-2019 End: 02-23-2020 take 1 tablet by mouth once daily Norethindrone-E.Est radiol-Iron () 1 mg-20 mcg (24)/75 mg (4) tablet Discontinued 1 TABLET PO daily March 24, 2019 5:57pm February 23, 2020 4:55pm Start: 03-24-2019 End: 02-23-2020 Norethindrone-E.Estradiol-Ir on () 1 mg-20 mcg (24)/75 mg (4) tablet Discontinued 1 {tbl} PO daily 19 03March 24, 2019 1:00am February 23, 2020 4:55pm Start: 03-24-2019 End: 02-23-2020 Norethindrone-E.Estradiol-Ir on ( Fe 24) 1 mg-20 mcg (24)/75 mg (4) tablet Discontinued 1 {tbl} PO daily March 24, 2019 1:00February 23, 2020 4:55pm Start: 03-24-2019 End: 02-23-2020 Norethindrone-E.Estradiol-Ir on (Augustl Fe 24) 1 mg-20 mcg (24)/75 mg (4) tablet Discontinued 1 {tbl} PO daily March 24, 2019 12:00am February 23, 2020 3:55pm Start: 03-24-2019 End: 02-23-2020 take 1 tablet by mouth once daily Norethindrone-E.Estradiol-Iron ( Fe 24) 1 mg-20 mcg (24)/75 mg (4) tablet Discontinued 1 TABLET PO daily March 24, 2019 12:00am February 23, 2020 3:55pm Start: 03-24-2019 End: 02-23-2020 take 1 tablet by mouth once daily Norethindrone-E.Estradiol-Iron ( Fe 24) 1 mg-20 mcg (24)/75 mg (4) tablet Discontinued 1 TABLET PO daily March 24, 2019 1:00am February 23, 2020 4:55pm Levonorgestrel-Ethinyl Estrad (20 sources) Progestin, Estrogen, Progestin-containing Intrauterine Device Start: 06-29-2024 End: 07-05-2024 Levonorgestrel-Ethinyl Estrad (Altavera (28)) 0.15-0.03 mg tablet Discontinued 1 {tbl} PO DAILY 17 06June 29, 2024 12:00am July 05, 2024 2:40pm Start: 06-29-2024 End: 07-05-2024 Levonorgestrel-Ethinyl Estra d (Altavera (28)) 0.15-0.03 mg tablet Discontinued 1 {tbl} PO DAILY June 29, 2024 12:00am July 05, 2024 2:40pm Start: 08-25-2022 End: 02-17-2023 Levonorgestrel-Ethinyl Estra d 0.15-0.03 mg tablet Discontinued 1 {tbl} PO DAILY 84 3 August 25, 2022 9:08am February 17, 2023 12:13pm Start: 08-25-2022 End: 02-17-2023 Levonorgestrel-Ethinyl Estra d 0.15-0.03 mg tablet Discontinued 1 {tbl} PO DAILY 84 August 25, 2022 9:08am February 17, 2023 12:13pm Start: 08-25-2022 End: 02-17-2023 Levonorgestrel-Ethinyl Estra d 0.15-0.03 mg tablet Discontinued 1 {tbl} PO DAILY 84 August 25, 2022 8:08am February 17, 2023 11:13am Start: 08-25-2022 End: 02-17-2023 take 1 tablet by mouth once daily Levonorgestrel-Ethinyl Estrad Discontinued 1 TABLET PO DAILY 84 August 25, 2022 9:08am February 17, 2023 12:13pm Start: 08-25-2022 End: 02-17-2023 take 1 tablet by mouth once daily Levonorgestrel-Ethinyl Estrad Discontinued 1 TABLET PO DAILY 84 August 25, 2022 8:08am February 17, 2023 11:13am Start: 02-23-2020 End: 03-13-2020 take 1 tablet by mouth once daily Levonorgestrel-Ethinyl Estrad Discontinued 1 TABLET PO DAILY February 23, 2020 4:55pm March 13, 2020 4:00pm Start: 02-23-2020 End: 03-13-2020 Levonorgestrel-Ethinyl Estra d 0.15-0.03 mg tablet Discontinued 1 {tbl} PO DAILY 84 February 23, 2020 1:00am March 13, 2020 4:00pm Start: 02-23-2020 End: 03-13-2020 Levonorgestrel-Ethinyl Estra d 0.15-0.03 mg tablet Discontinued 1 {tbl} PO DAILY February 23, 2020 1:00am March 13, 2020 4:00pm Start: 02-23-2020 End: 03-13-2020 Levonorgestrel-Ethinyl Estra d 0.15-0.03 mg tablet Discontinued 1 {tbl} PO DAILY February 23, 2020 12:00am March 13, 2020 3:00pm Start: 02-23-2020 End: 03-13-2020 take 1 tablet by mouth once daily Levonorgestrel-Ethinyl Estrad Discontinued 1 TABLET PO DAILY February 23, 2020 12:00am March 13, 2020 3:00pm Start: 02-23-2020 End: 03-13-2020 take 1 tablet by mouth once daily Levonorgestrel-Ethinyl Estrad Discontinued 1 TABLET PO DAILY February 23, 2020 1:00am March 13, 2020 4:00pm famotidine 20 mg oral tablet (20 sources) Histamine-2 Receptor Antagonist Start: 11-03-2023 End: 04-20-2024 take 1 tablet by mouth once daily Famotidine (Pepcid) 20 mg tablet Discontinued 20 mg PO daily November 03, 2023 3:59pm April 20, 2024 9:37am Gastroesophageal reflux disease Gastro-esophageal reflux disease without esophagitis acid reflux Start: 09-25-2023 End: 11-03-2023 take 1 tablet by mouth every twelve hours Famotidine (Pepcid) 20 mg tablet Discontinued 20 mg PO Q12H 60 1 September 25, 2023 9:01am November 03, 2023 4:02pm Gastroesophageal reflux disease Gastro-esophageal reflux disease without esophagitis acid reflux Start: 07-10-2023 End: 09-25-2023 take 1 tablet by mouth once daily Famotidine (Pepcid) 20 mg tablet Discontinued 20 mg PO DAILY 30 2 September 22, 2023 1:00pm September 25, 2023 8:55am Gastroesophageal reflux disease Gastro-esophageal reflux disease without esophagitis Flash Glucose Scanning Reade r (Freestyle Rachel 2 Robinson) misc (12 sources) Start: 07-29-2023 End: 10-14-2023 Flash Glucose Scanning Reade r (Freestyle Rachel 2 Robinson) misc Discontinued 0 .Route 1 0 July 29, 2023 12:00am October 14, 2023 9:30am As directed Start: 07-29-2023 End: 10-14-2023 Flash Glucose Scanning Reade r (Freestyle Rachel 2 Robinson) misc Discontinued 0 .Route 1 July 29, 2023 12:00am October 14, 2023 9:30am As directed Start: 07-29-2023 End: 10-14-2023 Flash Glucose Scanning Reade r (Freestyle Rachel 2 Robinson) misc Discontinued 0 .Route 1 July 28, 2023 11:00pm October 14, 2023 8:30am As directed Flash Glucose Sensor (Freest yle Rachel 2 Sensor) kit (20 sources) Start: 08-03-2023 End: 08-03-2023 Flash Glucose Sensor (Freest yle Rachel 2 Sensor) kit Discontinued 0 .Route 1 August 03, 2023 4:26pm August 03, 2023 4:28pm As directed Start: 08-03-2023 End: 08-03-2023 Flash Glucose Sensor (Freest yle Rachel 2 Sensor) kit Discontinued 0 .Route August 03, 2023 4:26pm August 03, 2023 4:28pm As directed Start: 08-03-2023 End: 08-03-2023 Flash Glucose Sensor (Freest yle Rachel 2 Sensor) kit Discontinued 0 .Route August 03, 2023 3:26pm August 03, 2023 3:28pm As directed Start: 08-03-2023 End: 10-14-2023 Flash Glucose Sensor (Freest yle Rachel 2 Sensor) kit Discontinued 0 .Route 1 August 03, 2023 12:00am October 14, 2023 9:30am As directed Start: 08-03-2023 End: 10-14-2023 Flash Glucose Sensor (Freest yle Rachel 2 Sensor) kit Discontinued 0 .Route August 03, 2023 12:00am October 14, 2023 9:30am As directed Start: 08-03-2023 End: 10-14-2023 Flash Glucose Sensor (Freest yle Rachel 2 Sensor) kit Discontinued 0 .Route 1 August 02, 2023 11:00pm October 14, 2023 8:30am As directed Start: 07-29-2023 End: 08-03-2023 Flash Glucose Sensor (Freest yle Rachel 2 Sensor) kit Discontinued 0 .Route 1 July 29, 2023 12:00am August 03, 2023 4:27pm As directed Start: 07-29-2023 End: 08-03-2023 Flash Glucose Sensor (Freest yle Rachel 2 Sensor) kit Discontinued 0 .Route 1 July 29, 2023 12:00am August 03, 2023 4:27pm As directed Start: 07-29-2023 End: 08-03-2023 Flash Glucose Sensor (Freest yle Rachel 2 Sensor) kit Discontinued 0 .Route 1 July 28, 2023 11:00pm August 03, 2023 3:27pm As directed fluconazole 150 mg oral tablet (20 sources) Azole Antifungal Start: 05-18-2024 End: 06-23-2024 Fluconazole 150 mg tablet Discontinued 150 mg PO Every 3 Days 2 0 0 May 18, 2024 1:00am June 23, 2024 2:05pm Infection due to yeast Candidiasis, unspecified may repeat second dose 72 hrs after first dose if symptoms persist Start: 04-27-2024 End: 05-02-2024 take 1 tablet by mouth once Fluconazole 150 mg tablet Discontinued 150 mg PO ONCE 1 April 27, 2024 1:59pm May 02, 2024 9:39am Start: 02-10-2024 End: 04-27-2024 Fluconazole 150 mg tablet Discontinued 150 mg PO Every 3 Days 2 0 0 April 20, 2024 10:17am April 27, 2024 1:59pm july repeat second dose 72 hrs after first dose if symptoms persist Start: 09-08-2023 End: 09-11-2023 take 1 tablet by mouth once daily Fluconazole 150 mg tablet Discontinued 150 mg PO DAILY 1 1 0 September 10, 2023 12:00am September 10, 2023 12:00am September 11, 2023 12:06am Infection due to Streptococcus agalactiae Streptococcal infection, unspecified site Start: 04-02-2023 End: 05-05-2023 Fluconazole 150 mg tablet Discontinued 150 mg PO Every 3 Days 2 0 April 02, 2023 1:00am May 05, 2023 10:04am Start: 07-12-2020 End: 09-05-2020 Fluconazole 150 mg tablet Discontinued 150 mg PO .COMPLEX 2 0 July 12, 2020 12:00am September 05, 2020 2:36pm 150 mg PO take one po now and repeat in 3 days Start: 09-09-2019 End: 10-26-2019 take 1 tablet by mouth once Fluconazole (Diflucan) 150 mg tablet Discontinued 150 mg PO ONCE 1 0 September 09, 2019 12:00am October 26, 2019 10:23am as a single dose 1.5 ml fremanezumab-vfrm 150 mg/ml auto-injector (17 sources) Start: 08-16-2024 End: 10-03-2024 Fremanezumab-Vfrm (Ajovy Autoinjector) 225 mg/1.5 mL auto-injector Discontinued 225 mg SC EVERY MONTH August 16, 2024 12:00am October 03, 2024 2:49pm Start: 05-11-2024 End: 09-07-2024 inject 1.5 mL by subcutaneous injection every month fremanezumab-vfrm 225 mg/1.5 mL subcutaneous syringe (AJOVY) Indications: Intractable chronic migraine without aura and without status migrainosus Inject 1.5 mL subcutaneously once every month. Do not shake. 1.5 mL 5 05/11/2024 09/07/2024 Discontinued (Course of therapy completed) Glycerin (Adult) suppository (12 sources) Start: 07-29-2023 End: 09-25-2023 Glycerin (Adult) suppository Discontinued 1 NMA RC 1 to 2 times per day as needed for constipation July 29, 2023 12:00am September 25, 2023 2:42pm Start: 07-29-2023 End: 09-25-2023 Glycerin (Adult) suppository Discontinued 1 NMA RC 1 to 2 times per day as needed for constipation July 29, 2023 12:00am September 25, 2023 2:42pm Start: 07-29-2023 End: 09-25-2023 Glycerin (Adult) suppository Discontinued 1 NMA RC 1 to 2 times per day as needed for constipation July 28, 2023 11:00pm September 25, 2023 1:42pm 12 hr guaiFENesin 600 mg extended release oral tablet (20 sources) Start: 02-05-2019 End: 02-22-2019 take 1 tablet by mouth twice daily as needed for congestion Guaifenesin 600 MG tablet Discontinued 600 mg PO TWICE A DAY as needed for Sinus Congestion February 05, 2019 1:00am February 22, 2019 5:03pm insulin isophane, human 100 unt/ml injectable suspension (20 sources) Start: 11-03-2023 End: 11-10-2023 Insulin Nph Isoph U-100 Human (Humulin N Nph U-100 Insulin) 100 unit/mL suspension Discontinued 18 U SC EVERY MORNING November 03, 2023 12:00am November 10, 2023 8:51am Start: 09-08-2023 End: 10-14-2023 Insulin Nph Isoph U-100 Yenni n (Novolin N Flexpen) 100 unit/mL (3 mL) insulin pen Discontinued 18 U SC As Directed September 08, 2023 10:37am October 14, 2023 9:30am Gestational Diabetes 20 units in am, 18 units in evening Start: 09-03-2023 End: 09-08-2023 Insulin Nph Isoph U-100 Yenni n (Novolin N Flexpen) 100 unit/mL (3 mL) insulin pen Discontinued 14 U SC TWICE A DAY September 03, 2023 9:53am September 08, 2023 10:38am 6 units in am, 14 units evening Start: 09-03-2023 End: 09-03-2023 Insulin Nph Isoph U-100 Yenni n (Humulin N Nph Insulin Kwikpen) 100 unit/mL (3 mL) insulin pen Discontinued 0 SC TWICE A DAY 15 4 September 03, 2023 7:25am September 03, 2023 9:25am 20 units subcutaneously twice a day; 6 units in am Start: 09-03-2023 End: 09-03-2023 Insulin Nph Isoph U-100 Yenni n (Novolin N Flexpen) 100 unit/mL (3 mL) insulin pen Discontinued 20 U SC TWICE A DAY 15 4 September 03, 2023 12:00am September 03, 2023 9:54am Start: 08-31-2023 End: 09-03-2023 Insulin Nph Isoph U-100 Yenni n (Humulin N Nph Insulin Kwikpen) 100 unit/mL (3 mL) insulin pen Discontinued 12 U SC AT BEDTIME August 31, 2023 10:54am September 03, 2023 7:27am 6 units in am Start: 08-31-2023 End: 08-31-2023 Insulin Nph Isoph U-100 Yenni n (Humulin N Nph Insulin Kwikpen) 100 unit/mL (3 mL) insulin pen Discontinued 12 U SC AT BEDTIME August 31, 2023 10:53am August 31, 2023 10:55am Start: 08-21-2023 End: 08-24-2023 Insulin Nph Isoph U-100 Yenni n (Novolin N Nph U-100 Insulin) 100 unit/mL suspension Discontinued 8 U SC EVERY MORNING 10 August 21, 2023 12:00am August 24, 2023 1:38pm Start: 08-21-2023 End: 08-31-2023 Insulin Nph Isoph U-100 Yenni n (Humulin N Nph Insulin Kwikpen) 100 unit/mL (3 mL) insulin pen Discontinued 8 U SC AT BEDTIME 15 August 21, 2023 5:44pm August 31, 2023 10:53am labetalol hydrochloride 100 mg oral tablet (20 sources) beta-Adrenergic Elaina Start: 02-10-2019 End: 03-21-2019 take 1 tablet by mouth twice daily Labetalol 100 mg tablet Discontinued 100 mg PO TWICE A DAY 60 2 February 22, 2019 5:05pm March 21, 2019 12:06pm lactulose 667 mg/ml oral solution (20 sources) Osmotic Laxative Start: 10-26-2019 End: 02-03-2020 take 10 g by mouth once daily Lactulose 10 gram/15 mL solution Discontinued 10 g PO DAILY October 26, 2019 12:00am February 03, 2020 2:48pm levoFLOXacin 500 mg oral tablet (20 sources) Quinolone Antimicrobial Start: 04-03-2022 End: 08-25-2022 Levofloxacin 500 mg tablet Discontinued 500 mg DAILY April 03, 2022 1:00am August 25, 2022 8:53am 10 days, ends on 04/05/22 Start: 09-05-2020 End: 12-25-2020 take 1 tablet by mouth once daily Levofloxacin 500 mg tablet Discontinued 500 mg PO DAILY September 05, 2020 12:00am December 25, 2020 10:54am lidocaine 40 mg/ml topical cream (20 sources) Antiarrhythmic, Amide Local Anesthetic Start: 02-17-2023 End: 02-27-2023 Lidocaine 4 % cream Discontinued 1 NMA TOPICAL THREE TIMES A DAY 15 2 February 17, 2023 1:00am February 27, 2023 2:52pm linaclotide 0.29 mg oral capsule (20 sources) Guanylate Cyclase-C Agonist Start: 08-19-2024 End: 10-03-2024 take 1 capsule by mouth once daily in the morning Linaclotide (Linzess) 290 mcg capsule Discontinued 290 ug PO EVERY MORNING 30 August 19, 2024 12:00am October 03, 2024 2:50pm Start: 12-25-2020 End: 04-08-2021 take 1 capsule by mouth once daily Linaclotide (Linzess) 145 mcg capsule Discontinued 145 ug PO DAILY December 25, 2020 12:00am April 08, 2021 2:03pm Start: 05-25-2020 LINZESS 290 mc g capsule Take 145 mcg by mouth once daily. 05/25/2020 Active Start: 02-03-2020 End: 03-13-2020 take 1 capsule by mouth once daily Linaclotide (Linzess) 290 mcg capsule Discontinued 290 ug PO DAILY February 03, 2020 1:00am March 13, 2020 4:00pm Comment on above: Take 145 mcg by mout h once daily. LORazepam 0.5 mg oral tablet (20 sources) Benzodiazepine Start: 04-03-19 End: 04-27-19 Lorazepam 0.5 mg tablet Discontinued 0.5 mg EVERY 8 HOURS as needed for Anxiety April 03, 2022 1:00am February 17, 2023 12:12pm lubiprostone 0.024 mg oral capsule (4 sources) Chloride Channel Activator Start: 09-14-19 End: 10-04-19 take 1 capsule by mouth twice daily Lubiprostone (Amitiza) 24 mcg capsule Discontinued 24 ug PO TWICE A DAY 60 3 September 27, 2024 3:33pm October 03, 2024 2:50pm magnesium citrate (8 sources) Start: 07-29-19 End: 08-17-19 take 1 mL by mouth once Magnesium Citrate (Citrate Of Magnesia) solution Discontinued 300 mL PO ONCE 296 0 July 28, 2024 12:00am August 16, 2024 8:05am as a single dose Start: 07-28-2024 End: 08-16-2024 take 1 mL by mouth once Magnesium Citrate (Citrate O f Magnesia) solution Discontinued 300 mL PO ONCE 296 July 28, 2024 12:00am August 16, 2024 8:05am as a single dose Start: 07-28-2024 take 1 mL by mouth once Magnes ium Citrate (Citrate Of Magnesia) solution Active 300 mL PO ONCE July 28, 2024 12:00am as a single dose 1 ml medroxyPROGESTERone acetate 150 mg/ml prefilled syringe (20 sources) Progestin Start: 05-02-2024 End: 06-29-2024 inject 150 mg by intramuscular injection every three months Medroxyprogesterone (Depo-Provera) 150 mg/mL syringe Discontinued 150 mg IM every 3 months 03 26May 02, 2024 9:32am June 29, 2024 11:40am Start: 01-28-2024 End: 04-21-2024 inject 150 mg by intramuscular injection every three months Medroxyprogesterone (Depo-Provera) 150 mg/mL suspension Discontinued 150 mg IM every 3 months 03 25January 28, 2024 1:00am April 21, 2024 9:43am Start: 01-04-2024 End: 02-29-2024 inject 150 mg by intramuscular injection every two months Medroxyprogesterone (Depo-Provera) 150 mg/mL syringe Discontinued 150 mg IM every 2 months 03 28January 04, 2024 10:18am February 29, 2024 10:35am Start: 11-10-2023 End: 01-04-2024 inject 150 mg by intramuscular injection every three months Medroxyprogesterone (Depo-Provera) 150 mg/mL syringe Discontinued 150 mg IM every 3 months 03 26December 30, 2023 6:57am January 04, 2024 10:19am Start: 04-24-2021 End: 04-24-2021 inject 150 mg by intramuscular injection once Depo-Provera (medroxyprogesterone) 150 mg/mL intramuscular syringe Discontinued 150 MG IM ONCE April 24, 2021 10:55am April 24, 2021 11:11am Start: 04-19-2021 End: 08-25-2022 inject 150 mg by intramuscular injection every three months Medroxyprogesterone (Depo-Provera) 150 mg/mL suspension Discontinued 150 mg IM every 3 months 03 24March 19, 2022 5:00pm August 25, 2022 8:58am Start: 03-13-2020 End: 12-25-2020 inject 150 mg by intramuscular injection every three months Medroxyprogesterone (Depo-Provera) 150 mg/mL suspension Discontinued 150 mg IM every 3 months 1 April 05, 2020 2:04pm December 25, 2020 10:55am medroxyPROGESTER one (DEPO-PROVERA) 400 mg/mL susp Inject 400 mg intramuscularly every 12 weeks. Active inject 0.65 mL by polanco bcutaneous injection once medroxyPROGESTERone Acetate (DEPO-SUBQ PROVERA 104) 104 MG/0.65ML injection Inject 0.65 mL (104 mg) into the skin once Active Comment on above: Inject 400 mg intram uscularly every 12 weeks. 24 hr metFORMIN hydrochloride 500 mg extended release oral tablet (20 sources) Biguanide Start: 08-06-19 End: 08-26-19 24 take 1 tablet by mouth once daily Metformin 500 mg tablet extended release 24 hr Discontinued 500 mg PO DAILY 30 August 06, 2023 12:00am August 26, 2023 2:11pm Start: 08-03-2023 End: 08-06-2023 take 1 tablet by mouth twice daily Metformin 500 mg tablet Discontinued 500 mg PO TWICE A DAY 60 August 03, 2023 12:00am August 06, 2023 9:32am metoclopramide 10 mg oral tablet (20 sources) Dopamine-2 Receptor Antagonist Start: 04-07-2023 End: 08-26-2023 take 1 tablet by mouth every six hours as needed for nausea and vomiting Metoclopramide Hcl (Reglan) 10 mg tablet Discontinued 10 mg PO EVERY 6 HOURS as needed for nausea and vomiting 60 April 07, 2023 1:00am August 26, 2023 2:11pm Start: 05-08-2020 End: 06-26-2020 take 1 tablet by mouth every six hours as needed for nausea Metoclopramide Hcl 10 MG tablet Discontinued 10 mg PO EVERY 6 HOURS as needed for NAUSEA/HEADACHE May 08, 2020 1:00am June 26, 2020 9:36am metroNIDAZOLE (20 sources) Nitroimidazole Antimicrobial Start: 07-28-2024 End: 08-02-2024 Metronidazole 0.75 % (37.5mg/5 gram) gel Discontinued 1 NMA VAGINAL daily 70 5 0 July 28, 2024 12:00August 01, 2024 12:00am August 02, 2024 12:08am at bedtime Start: 07-28-2024 End: 08-02-2024 Metronidazole 0.75 % (37.5mg /5 gram) gel Discontinued 1 NMA VAGINAL daily 70 5 July 28, 2024 12:00am August 01, 2024 12:00am August 02, 2024 12:08am at bedtime Start: 02-22-2023 End: 02-27-2023 Metronidazole 0.75 % (37.5mg /5 gram) gel Discontinued 1 NMA VAGINAL DAILY 70 5 February 22, 2023 1:00am February 26, 2023 1:00am February 27, 2023 1:05am Start: 02-22-2023 End: 02-27-2023 Metronidazole 0.75 % (37.5mg /5 gram) gel Discontinued 1 NMA VAGINAL DAILY 70 February 22, 2023 1:00am February 26, 2023 1:00am February 27, 2023 1:05am Start: 02-22-2023 End: 02-27-2023 Metronidazole 0.75 % (37.5mg /5 gram) gel Discontinued 1 NMA VAGINAL DAILY 70 February 22, 2023 12:00am February 26, 2023 12:00am February 27, 2023 12:05am Start: 02-22-2023 End: 02-27-2023 Metronidazole Discontinued 1 APPFUL VAGINAL DAILY 70 February 22, 2023 1:00am February 27, 2023 1:05am Start: 02-22-2023 End: 02-27-2023 Metronidazole Discontinued 1 APPFUL VAGINAL DAILY 70 February 22, 2023 12:00am February 27, 2023 12:05am Start: 02-22-2023 Metronidazole Active 1 APPFUL VAGINAL DAILY 70 February 22, 2023 12:00am Start: 02-18-2021 End: 02-23-2021 Metronidazole (Metrogel Vagi nal) 0.75 % gel Discontinued 1 NMA VAGINAL DAILY 70 5 0 February 18, 2021 1:00am February 22, 2021 1:00am February 23, 2021 1:01am Start: 03-14-2020 End: 03-14-2020 take 1 tablet by mouth twice daily Metronidazole (Flagyl) 500 mg tablet Discontinued 500 mg PO TWICE A DAY March 14, 2020 1:00am March 14, 2020 12:20pm Start: 02-08-2020 End: 02-20-2020 Metronidazole (Metrogel Vagi nal) 0.75 % gel Discontinued 1 NMA VAGINAL .COMPLEX 70 2 February 08, 2020 1:00am February 20, 2020 2:09pm 1 appful vaginal bid X days then weekly to prevent; Start: 02-08-2020 End: 02-08-2020 take 1 tablet by mouth twice daily Metronidazole (Flagyl) 500 mg tablet Discontinued 500 mg PO TWICE A DAY 14 0 February 08, 2020 1:00am February 08, 2020 3:09pm Start: 10-27-2019 End: 10-31-2019 take 1 tablet by mouth twice daily Metronidazole (Flagyl) 500 mg tablet Discontinued 500 mg PO TWICE A DAY 14 0 October 27, 2019 12:00am October 31, 2019 9:40am Start: 06-06-2019 End: 07-06-2019 take 1 tablet by mouth every six hours Metronidazole 500 MG tablet Discontinued 500 mg PO EVERY 6 HOURS 40 June 06, 2019 12:00am July 06, 2019 1:57pm Start: 05-09-2019 End: 05-14-2019 Metronidazole 0.75 % gel Dis continued 1 NMA VAGINAL TWICE A DAY 70 5 0 May 09, 2019 1:00am May 13, 2019 1:00am May 14, 2019 1:09am Start: 04-21-2019 End: 04-26-2019 Metronidazole (Metrogel Vagi nal) 0.75 % gel Discontinued 1 NMA VAGINAL TWICE A DAY 70 5 0 April 21, 2019 1:00am April 25, 2019 1:00am April 26, 2019 1:08am Start: 01-30-2019 End: 02-14-2019 take 1 tablet by mouth twice daily Metronidazole 500 MG tablet Discontinued 500 mg PO TWICE A DAY February 02, 2019 6:43pm February 14, 2019 12:25pm infection Start: 01-17-2019 End: 01-24-2019 take 1 tablet by mouth twice daily Metronidazole (Flagyl) 500 mg tablet Discontinued 500 mg PO TWICE A DAY 14 7 0 January 17, 2019 12:00am January 23, 2019 12:00am January 24, 2019 1:08am Start: 01-02-2019 End: 01-06-2019 take 1 tablet by mouth twice daily Metronidazole (Flagyl) 500 mg tablet Discontinued 500 mg PO TWICE A DAY 14 0 January 02, 2019 12:00am January 06, 2019 8:37pm Mv-Mins 90-Fepx-Nvlcs No.1-D rankin (Pnv-[place]) 28-1-300 mg capsule (20 sources) Start: 02-27-2023 End: 04-20-2024 Mv-Mins 52-Sjie-Hxsef No.1-D rankin (Pnv-[place]) 28-1-300 mg capsule Discontinued 1 NMA PO DAILY February 27, 2023 1:00am April 20, 2024 9:37am Start: 02-27-2023 End: 04-20-2024 Mv-Mins 13-Zaqj-Asyxn No.1-D rankin (Pnv-[place]) 28-1-300 mg capsule Discontinued 1 NMA PO DAILY February 27, 2023 1:00am April 20, 2024 9:37am Start: 02-27-2023 End: 04-20-2024 Mv-Mins 01-Uxzl-Benst No.1-D rankin (Pnv-[place]) 28-1-300 mg capsule Discontinued 1 NMA PO DAILY February 27, 2023 12:00am April 20, 2024 8:37am Start: 02-27-2023 take 1 capsule by mo ut once daily Mv-Mins 96-Fdws-Eyjvb No.1-Dha (Pnv-[place]) 28-1-300 mg capsule Active 1 CAP PO DAILY February 27, 2023 1:00am Start: 02-27-2023 take 1 capsule by mo uth once daily Mv-Mins 32-Ywyl-Burnw No.1-Dha (Pnv-[place]) 28-1-300 mg capsule Active 1 CAP PO DAILY February 27, 2023 12:00am Start: 02-27-2023 take 1 capsule by mouth once M v-Mins 84-Iwxv-Ljmlp No.1-Dha (Pnv-[place]) 28-1-300 mg capsule Active CAP PO February 27, 2023 12:00am naproxen 500 mg oral tablet (20 sources) Nonsteroidal Anti-inflammatory Drug Start: 09-29-2023 End: 11-02-2023 take 1 tablet by mouth twice daily as needed for pain Naproxen 500 mg tablet Discontinued 500 mg PO TWICE DAILY NEEDED as needed for Pain 30 1 September 29, 2023 12:00am November 02, 2023 8:12am Start: 05-08-2020 End: 09-05-2020 take 1-10 tablets by mouth twice daily as needed for pain Naproxen 500 MG tablet Discontinued 500 mg PO TWICE A DAY as needed for Pain 1-10 Or Fever May 08, 2020 1:00am September 05, 2020 2:36pm Start: 08-13-2019 End: 10-26-2019 take 1 tablet by mouth twice daily as needed Naproxen 500 MG tablet Discontinued 500 mg PO TWICE DAILY NEEDED August 13, 2019 12:00am October 26, 2019 10:23am Start: 02-10-2019 End: 02-22-2019 take 1 tablet by mouth twice daily as needed for pain Naproxen 500 MG tablet Discontinued 500 mg PO TWICE DAILY NEEDED as needed for Pain 60 1 February 10, 2019 1:00am February 22, 2019 5:04pm nitrofurantoin, macrocrystals 100 mg oral capsule (20 sources) Nitrofuran Antibacterial Start: 12-25-2020 End: 01-01-2021 take 1 capsule by mouth twice daily at mealtime Nitrofurantoin Macrocrystal 100 mg capsule Discontinued 100 mg PO TWICE A DAY 14 7 0 December 25, 2020 12:00am December 31, 2020 12:00am January 01, 2021 12:01am administer with food (meal or snack) nitrofurantoin, macrocrystals 25 mg / nitrofurantoin, monohydrate 75 mg oral capsule (20 sources) Nitrofuran Antibacterial Start: 11-11-2023 End: 04-20-2024 take 1 capsule by mouth twice daily at mealtime Nitrofurantoin Monohyd/M-Cryst (Macrobid) 100 mg capsule Discontinued 100 mg PO TWICE A DAY 14 0 November 11, 2023 12:00am April 20, 2024 9:37am must administer with a meal/food Start: 02-14-2019 End: 02-21-2019 take 1 capsule by mouth twice daily at mealtime Nitrofurantoin Monohyd/M-Cryst (Macrobid) 100 mg capsule Discontinued 100 mg PO TWICE A DAY 14 7 0 February 14, 2019 1:00am February 20, 2019 1:00am February 21, 2019 1:07am must administer with a meal/food Start: 01-16-2019 End: 01-26-2019 Nitrofurantoin Monohyd/M-Cry st 100 MG capsule Discontinued TWICE A DAY January 16, 2019 12:00am January 26, 2019 5:04pm ondansetron 4 mg disintegrating oral tablet (20 sources) Serotonin-3 Receptor Antagonist Start: 01-12-2024 End: 05-02-2024 take 1 tablet by mouth three times daily as needed for nausea and vomiting Ondansetron 4 mg tablet,disintegrating Discontinued 4 mg PO THREE TIMES A DAY as needed for nausea and vomiting 60 5 April 21, 2024 9:43am May 02, 2024 9:39am Start: 11-10-2023 End: 01-12-2024 take 1 tablet by mouth every eight hours as needed for nausea and vomiting Ondansetron 4 mg tablet,disintegrating Discontinued 4 mg PO Q8H as needed for nausea and vomiting 30 0 November 10, 2023 12:00am January 12, 2024 8:44am Start: 11-03-2023 End: 01-12-2024 take 1 tablet by mouth every six hours Ondansetron Hcl 4 mg tablet Discontinued 4 mg PO EVERY 6 HOURS November 03, 2023 12:00am January 12, 2024 8:42am Start: 04-13-2023 End: 10-14-2023 take 1 tablet by mouth every six hours as needed for nausea and vomiting Ondansetron 4 mg tablet,disintegrating Discontinued 4 mg PO EVERY 6 HOURS as needed for nausea and vomiting 60 1 July 09, 2023 3:33pm October 14, 2023 9:30am Nausea and vomiting during Vomiting of , unspecified Start: 04-03-2022 End: 04-07-2023 take 2 tablets by mouth every eight hours as needed for nausea Ondansetron 4 mg tablet,disintegrating Discontinued 8 mg PO EVERY 8 HOURS NEEDED as needed for Nausea 10 07March 20, 2023 4:47pm April 07, 2023 9:45am Start: 04-03-2022 End: 04-07-2023 take 8 mg by mouth every eight hours as needed Ondansetron Discontinued 8 MG PO EVERY 8 HOURS NEEDED March 20, 2023 4:47pm April 07, 2023 9:45am Start: 03-03-2022 End: 03-08-2022 Zofran 4 mg oral tablet Dose : 4 mg = 1 tab(s), Oral, q8h, PRN Nausea/Vomiting, X 5 day(s), # 15 cap(s), 0 Refill(s), 03/08/22 19:03:00 EST, Pharmacy: [facility] [id number], 149.9, cm, 03/02/22 4:46:00 EST, Height Start Date: 03/03/22 Stop Date: 03/08/22 Status: Ordered Start: 05-24-2020 End: 12-25-2020 take 1 tablet by mouth every eight hours as needed for nausea and vomiting Ondansetron 8 mg tablet,disintegrating Discontinued 8 mg PO Q8H as needed for nausea and vomiting 30 2 October 29, 2020 9:50am December 25, 2020 10:55am Start: 05-08-2020 End: 05-24-2020 take 1 tablet by mouth every six hours as needed for nausea Ondansetron 4 mg tablet,disintegrating Discontinued 4 mg PO EVERY 6 HOURS as needed for Nausea 60 1 May 15, 2020 12:25pm May 24, 2020 1:29pm Start: 12-13-2019 End: 02-03-2020 take 1 tablet by mouth every eight hours as needed for nausea Ondansetron 4 MG tablet Discontinued 4 mg PO EVERY 8 HOURS NEEDED as needed for Nausea December 13, 2019 12:00am February 03, 2020 2:48pm Start: 07-29-2018 End: 08-13-2018 take 1 tablet by mouth three times daily as needed for nausea and vomiting Ondansetron Hcl (Zofran) 4 mg tablet Discontinued 4 mg PO THREE TIMES A DAY as needed for nausea and vomiting 60 2 July 29, 2018 12:00am August 12, 2018 12:00am August 13, 2018 12:08am Start: 02-19-2018 End: 04-13-2018 take 1 tablet by mouth every four hours as needed for nausea Ondansetron 4 MG tablet,disintegrating Discontinued 4 mg PO EVERY 4 HOURS NEEDED as needed for Nausea 10 0 February 19, 2018 4:39pm April 13, 2018 11:13am penicillin v potassium 500 mg oral tablet (20 sources) Start: 11-20-2018 End: 12-14-2018 take 1 tablet by mouth four times daily Penicillin V Potassium 500 MG tablet Discontinued 500 mg PO 4 TIMES DAILY 40 0 November 20, 2018 12:00am December 14, 2018 4:12pm polyethylene glycol 3350 131143 mg / potassium chloride 2970 mg / sodium bicarbonate 6740 mg / sodium chloride 5860 mg / sodium sulfate 96018 mg powder for oral solution (1 source) Osmotic Laxative Start: 09-27-2024 End: 10-03-2024 Peg 3350-Electrolytes (Golytely) 236-22.74-6.74 -5.86 gram recon soln Discontinued 240 mL PO Q10M 4000 0 September 27, 2024 12:00am October 03, 2024 2:50pm predniSONE 10 mg oral tablet (4 sources) Start: 07-12-2022 End: 05-11-2024 predniSONE (DELTASONE) 10 mg tablet Take 4 tabs daily for 3 days, then 2 tabs daily for 3 days, then 1 tab daily for 3 days with food. 21 tablet 07/12/2022 05/11/2024 Discontinued Comment on above: Take 4 tabs daily fo r 3 days, then 2 tabs daily for 3 days, then 1 tab daily for 3 days with food. Vit,[id number] c (16 sources) Start: 12-13-2019 End: 01-02-2020 take 1 tablet by mouth once daily Vit,[id number] ic Discontinued 1 TABLET PO DAILY December 13, 2019 6:20pm January 02, 2020 9:11am Start: 12-13-2019 End: 01-02-2020 take 1 tablet by mouth once daily Vit,[id number] Discontinued 1 TABLET PO DAILY December 12, 2019 11:00pm January 02, 2020 8:11am Start: 12-13-2019 End: 01-02-2020 take 1 tablet by mouth once daily Vit,[id number]-Vtsrg Discontinued 1 TABLET PO DAILY December 13, 2019 12:00am January 02, 2020 9:11am Vit,[id number]-Kuzw-Tscus 1 TABLET tablet (12 sources) Start: 12-13-2019 End: 01-02-2020 take 1 tablet by mouth once daily Vit,[id number]-Lhqvq 1 TABLET tablet Discontinued 1 {tbl} PO DAILY 30 December 13, 2019 12:00am January 02, 2020 9:11am Start: 12-13-2019 End: 01-02-2020 take 1 tablet by mouth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 Performed By: #### 2 91461 ####[facility],[address] [place] [address] INTERNAL QC PASS Normal [facility] Comment on above: Performed By: #### 2 77370 ####[facility],[address] [place] [address] URINALYSISon 09-20-2024 Bilirubin Ql (U) Negative Normal NORMAL: NEGATIVE [facility] Comment on above: Performed By: #### 2 71723 ####[facility],[address] [place] [address] Clarity (U) CLEAR Normal NORMAL: CLEAR [facility] Comment on above: Performed By: #### 2 65110 ####[facility],[address] [place], [place] [id number] Color (U) YELLOW Normal NORMAL: YELLOW [facility] Comment on above: Performed By: #### 2 63472 ####[facility],[address] [place], [place] [id number] Glucose Ql (U) NORM Normal NORMAL: NORMAL [facility] Comment on above: Performed By: #### 2 73750 ####[facility],[address] [place], [place] [address] Hemoglobin Ql (U) Negative Normal NORMAL: NEGATIVE [facility] Comment on above: Performed By: #### 2 23584 ####[facility],[address] [place], [place] [address] Ketone Negative Normal NORMAL: NEGATIVE [facility] Comment on above: Performed By: #### 2 52394 ####[facility],[address] [place], [place] [address] Leukocytes Negative Normal NORMAL: NEGATIVE [facility] Comment on above: Performed By: #### 2 13773 ####[facility],[address] [place] [address] Nitrite Ql (U) Negative Normal NORMAL: NEGATIVE [facility] Comment on above: Performed By: #### 2 96919 ####[facility],[address] [place] [address] pH (U) 7.0 [pH] Normal NORMAL: 5.0-8.[address] [facility] Comment on above: Performed By: #### 2 16988 ####[facility],[address] [place] [address] Protein Ql (U) Negative Normal NORMAL: NEGATIVE [facility] Comment on above: Performed By: #### 2 01789 ####[facility],[address] [place] [address] Sp [place] 1.005 Low NORMAL: 1.010-1.[address] [facility] Comment on above: Performed By: #### 2 36558 ####[facility],[address] [place] [address] Specimen Type R Normal [facility] Comment on above: Performed By: #### 2 28169 ####[facility],[address] [place] [address] Urinalysis dipstick W Reflex Microscopic panel (U) NOT INDICATED Normal [facility] Comment on above: Performed By: #### 2 86212 ####[facility],[address] [place] [address] Urobilinog NORMAL Normal NORMAL: NORMAL [facility] Comment on above: Performed By: #### 2 66552 ####[facility],[address] [place] [address] Gastroenterology Visit Repor ton 09-16-2024 Gastroenterology Visit Report Normal [facility] Urine Cultureon 09-14-2024 URC Below infection leve l. Mixed Gram Pos Gram Neg Org [place] Count 1000-10,000 MIXC Mixed contaminants. Submit a new specimen if indicated. Normal [facility] Comment on above: Performed By: #### M 100.3200, M100.2200, M1 ####[facility] [id number] [place], [place], [address] Genital Culture Comprehensiv anatoliy 09-13-2024 VAC Reason for Exam: vaginal discharge Normal genital sean isolated Normal [facility] Comment on above: Performed By: #### M 100.3200, M100.2200, M1 ####[facility] [id number] [place], [address] Genital cultureOrdered By: Fortino Christianson on 09-12-2024 Source specific culture Normal genital f veda isolated [facility] Gram Stainon 09-12-2024 GS Reason for Exam: vaginal discharge Gram Stain 3+ Gram positive rods 2+ Gram negative rods 1+ Gram variable jose Score = 4 Interpretation: 0-3 Normal, 4-6 Intermediate, 7-10 Positive BV Normal [facility] Comment on above: Performed By: #### M 100.3200, M100.2200, M1 ####[facility] [id number] [place], [address] Gram stainOrdered By: Sada Christianson on 09-12-2024 Microscopic observation Gram stain Nom (Unsp spec) [facility] Laboratory - Chemistry and C hemistry - challengeOrdered By: Sada Christianson on 09-12-2024 HCG ( test) Ql (U) Negative [facility] Bilirubin Ql (U) Negative [facility] Glucose Ql (U) Negative [facility] Ketones Ql (U) Negative [facility] Specific gravity (U) [Rel density] 1.015 [facility] Urobilinogen (U) [Mass/Vol] Negative [facility] Laboratory - Hematology and Cell countsOrdered By: Sada Christianson on 09-12-2024 Hemoglobin Ql (U) Negative [facility] Laboratory - Specimen inform ationOrdered By: Sada Christianson on 09-12-2024 Clarity (U) Clear [facility] Color (U) Yellow [facility] Laboratory - UrinalysisOrder ed By: Sada Christianson on 09-12-2024 Nitrite Ql (U) Negative [facility] Protein Ql (U) Negative [facility] No Panel InformationOrdered By: Sada Christianson on 09-12-2024 Urine Leukocytes Negatve [facility] Urine Non-Hemolyzed Blood Negative [facility] 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 Addendum: Favorable outcome: The patient informed via [facility]. Jesus White RN Allergies As of Date: 09/07/2024 Noted Allergy Reaction BACTRIM (SULFAMETHOXAZOLE-TRIME TH*06/30/2020 2 - Rash Comments: Rash and GI upset MORPHINE 04/27/2024 14 - Other: See Comments Comments: Chest pain, elevated heart rate NURTEC ODT (RIMEGEPANT) 04/27/2024 2 - Rash Date Reviewed: 04/27/2024 Reviewed by: Renetta Dee PA-C - Fully Assessed Reason for Visit: JULIA for Qulipta [Other] Prescriptions as of 09/08/2024 - atogepant (QULIPTA) 10 mg tablet Take 1 tablet by mouth once daily. - amitriptyline (ELAVIL) 100 mg tablet Take 1 tablet by mouth daily at bedtime. - ubrogepant (UBRELVY) 100 mg tablet Take 1 tablet by mouth once daily as needed for migraine headache (see administration instructions). - divalproex ER (DEPAKOTE ER) 500 mg 24 hr tablet Take 2 tabs nightly for five nights then 1 tab nightly for five nights then stop - hydrOXYzine HCl (ATARAX) 10 mg tablet Take 1 tablet by mouth three times a day as needed. - levothyroxine 25 mcg cap Take 25 mcg by mouth daily before breakfast. - propranolol HCl (PROPRANOLOL ORAL) Take by mouth. - cyclobenzaprine (FLEXERIL) 10 mg tablet Take 1 tablet by mouth three times daily as needed for muscle spasm. - fluticasone propionate (XHANCE) 93 mcg/actuation nasal spray Use 2 Sprays in the nose twice daily. - hydrocortisone (ANUSOL-HC) 25 mg suppository 1 Suppository by RECTAL route twice daily. - LINZESS 290 mcg capsule Take 145 mcg by mouth once daily. - pantoprazole DR (PROTONIX) 20 mg tablet Take 40 mg by mouth once daily. - medroxyPROGESTERone (DEPO-PROVERA) 400 mg/mL susp Inject 400 mg intramuscularly every 12 weeks. - fluticasone (FLONASE) 50 mcg/actuation nasal spray Use 2 Sprays in each nostril once daily. Rinse mouth after use. - nystatin (MYCOSTATIN) ointment APPLY 2 TIMES A DAY TO BURNING VAGINAL AREA - sodium chloride (SALINE MIST) 0.65 % nasal spray Use 1 [place] in the nose every 6 hours as needed for Cold/Allergy Symptoms. Problem List As Of Date 09/07/2024 Noted Resolved Osteogenesis imperfecta [Q78.0] 02/21/2018 Thoracogenic scoliosis of thoracolumbar region *02/21/2018 Encounter Status:Closed by JESUS WHITE on 09/07/24 Normal [facility] VAGINAL PATHOGEN DNA DIRECT PROBES[LISA]on 09-02-2024 VAGINAL PATHOGEN DNA DIRECT PROBES[LISA] Normal [facility] Comment on above: Result Comment: _VAG INAL PATHOGENS DNA DIRECT PROBES [CCL]_ SEE SEPARATE REPORT Performed By: #### 2 70275 ####[address] [address] VITAMIN D, 1,25 - DIHYDROXY [CCL]on 09-02-2024 Vit D,1,25 Dihydroxy 57.0 pg/mL Normal 19.9-79.[address] [facility] Comment on above: Result Comment: [facility] [place], [place] [address]VirxfhEduardo Walter III, M.D.[id number] Performed By: #### 2 26643 ####[address] [address] THYROID PEROXIDASE AB [CCL]o n 09-01-2024 TPO Antibody <3.0 Normal <5.[address] [facility] Comment on above: Result Comment: Thyr oid Peroxidase Antibody test is used as an aid in diagnosis ofautoimmune thyroid disease. Clinical correlation is required.[place] [id number] [place], [place] [address]BuzofbEduardo Walter III, M.D.[id number] Performed By: #### 2 06380 ####[address] [address] 1,25-dihydroxyvitamin D3 [Ma ss/Vol]on 08-31-2024 VIT D1,25 DIHYDROXY 57.0 pg/mL Normal 19.9-79.3 [facility] Comment on above: Order Comment: Speci men Type: BLOOD SPECIMEN Ordering Facility: [facility] Address: [address] [place], [place] [address] Performed By: #### 1 649-3 #### [facility] CLIA [id number] [address] [place] [address] [place] CBC + DIFFon 08-31-2024 Baso # 0.04 x10EE3/UL Normal 0.00 - 0.[address] [facility] Comment on above: Performed By: #### 2 94600 ####[facility],[address] [place] [address] Basophils/100 WBC (Bld) 0.5 % Normal 0.0 - 2.0 [facility] Comment on above: Performed By: #### 2 05744 ####[facility],[address] [place] [address] CBC + DIFF Normal [facility] Comment on above: Result Comment: CBC- COMPLETE BLOOD COUNT Performed By: #### 2 61691 ####[facility],[address] [place] [address] 720[address] EO # 0.19 x10EE3/UL Normal 0.00 - 0.[address] [facility] Comment on above: Performed By: #### 2 93256 ####[facility],[address] [place] [address] 630[address] Eosinophils/100 WBC (Bld) 2.2 % Normal 0.0 - 7.[address] [facility] Comment on above: Performed By: #### 2 83890 ####[facility],[address] [place] [address] 11610 Erythrocyte distribution width (RBC) [Ratio] 12.6 % Normal 12.0 - 15.[address] [facility] Comment on above: Performed By: #### 2 41366 ####[facility],[address] [place] [address]15[address] Hematocrit (Bld) [Volume fraction] 39.3 % Normal 34.0 - 46.[address] [facility] Comment on above: Performed By: #### 2 74040 ####[facility],[address] [place] [address] Hemoglobin (Bld) [Mass/Vol] 13.8 g/dL Normal 12.0 - 16.[address] [facility] Comment on above: Performed By: #### 2 26348 ####[facility],[address] [place] [address] Lymph # 1.31 x10EE3/UL Normal 0.80 - 2.[address] [facility] Comment on above: Performed By: #### 2 80912 ####[place] [address] Lymphocytes/100 WBC (Bld) 15.4 % Low 20.0 - 45.[address] [facility] Comment on above: Performed By: #### 2 98843 ####[facility],[address] [place] [address] MANUAL DIFF N/A Normal [facility] Comment on above: Performed By: #### 2 63325 ####[place] [address] MCH (RBC) [Entitic mass] 30 pg Normal 27 - [address] [facility] Comment on above: Performed By: #### 2 01178 ####[place] [address] MCHC 35 X10 3 Normal 32 - [address] [facility] Comment on above: Performed By: #### 2 89558 ####[place] [address] MCV (RBC) [Entitic vol] 85 fL Normal 80 - 99 [facility] Comment on above: Performed By: #### 2 85644 ####[place] [address] [place] # 0.49 x10EE3/UL Normal 0.20 - 1.[address] [facility] Comment on above: Performed By: #### 2 74335 ####[facility],[address] [place] [address]87[address] MONOS % 5.8 % Normal 0.0 - 10.[address] [facility] Comment on above: Performed By: #### 2 51727 ####[facility],[address] [place] [address] Morphology [place] (Bld) [Interp] N/A Normal [facility] Comment on above: Performed By: #### 2 11791 ####[facility],[address] [place] [address] Neut # 6.46 x10EE3/UL Normal 1.50 - 7.[address] [facility] Comment on above: Performed By: #### 2 60204 ####[facility],[address] [place] [address] Neutrophils/100 WBC (Bld) 76.1 % High 46.0 - 76.[address] [facility] Comment on above: Performed By: #### 2 11514 ####[facility],[address] [place] [address] PLATELET 344 x10EE3/UL Normal 150 - [address] [facility] Comment on above: Performed By: #### 2 95869 ####[facility],[address] [place] [address] Platelet mean volume (Bld) [Entitic vol] 7.7 fL Normal 6.6 - 10.[address] [facility] Comment on above: Result Comment: AUTO MATED DIFFERENTIAL Performed By: #### 2 02021 ####[place] [id number] RBC 4.61 x 10EE6/UL Normal 4.10 - 5.[address] [facility] Comment on above: Performed By: #### 2 21675 ####[facility],[address],[place] [address] WBC 8.5 x 10EE3/UL Normal 4.5 - 10.[address] [facility] Comment on above: Performed By: #### 2 73020 ####[facility],[address] [place] [address] CMP with eGFRon 08-31-2024 AGE 29 years Normal [facility] Comment on above: Performed By: #### 2 38647 ####[facility],[address] [place] [address] 33877 Albumin [Mass/Vol] 3.9 g/dL Normal 3.4 - 5.[address] [facility] Comment on above: Performed By: #### 2 35775 ####[facility],[address] [place] [address] Albumin/Globulin [Mass ratio] 1.1 {ratio} Normal 0.9 - 1.[address] [facility] Comment on above: Performed By: #### 2 00019 ####[facility],[address] [place] [address] 95077 ALK PHOS 151 U/L High 46 - [address] [facility] Comment on above: Performed By: #### 2 46877 ####[facility],[address] [place] [address] 52496 ALT [Catalytic activity/Vol] 24 U/L Normal 16 - [address] [facility] Comment on above: Performed By: #### 2 88583 ####[facility],[address] [place] [address] 28823 Anion gap [Moles/Vol] 8 mmol/L Low 10 - 20 [facility] Comment on above: Performed By: #### 2 85747 ####[facility],[address] [place] [address] 02854 AST [Catalytic activity/Vol] 14 U/L Normal 13 - [address] [facility] Comment on above: Performed By: #### 2 41002 ####[facility],[address] [place], [place] [id number] B/C RATIO 19 ratio Normal 0 - [address] [facility] Comment on above: Performed By: #### 2 58028 ####[facility],[address] [place], [place] [id number] Bilirubin [Mass/Vol] 0.5 mg/dL Normal 0.2 - 1.[address] [facility] Comment on above: Performed By: #### 2 40194 ####[facility],[address] [place] [address] Calcium [Mass/Vol] 8.6 mg/dL Normal 8.5 - 10.[address] [facility] Comment on above: Performed By: #### 2 25240 ####[facility],[address] [place] [address] Chloride [Moles/Vol] 106 mmol/L Normal 98 - [address] [facility] Comment on above: Performed By: #### 2 73278 ####[facility],[address] [place] [address] CMP with eGFR Normal [facility] Comment on above: Result Comment: COMP REHENSIVE METABOLIC PANEL Performed By: #### 2 11242 ####[facility],[address] [place], [place] [address] CO2 [Moles/Vol] 28.2 mmol/L Normal 21.0 - 32.[address] [facility] Comment on above: Performed By: #### 2 16652 ####[facility],[address] [place], [place] [address] Creatinine [Mass/Vol] 0.80 mg/dL Normal 0.55 - 1.02 [facility] Comment on above: Performed By: #### 2 10063 ####[facility],[address] [place], [place] [address] GFR/1.73 sq M.predicted among non-blacks MDRD (S/P/Bld) [Vol rate/Area] mL/min/{1.73_m2} Normal 60 - [address] [facility] Comment on above: Performed By: #### 2 97774 ####[facility],[address] [place] [address] 11466 Result Comment: ACCO RDING TO THE NATIONAL KIDNEY DISEASE EDUCATION PROGRAM(NKDE), A NORMAL eGFRIS A VALUE GREATER THAN OR EQUAL TO 60 ML/MIN/1.73 SQ METERS.CHRONIC KIDNEY DISEASE: <60mL/MIN/1.73 SQ METERSKIDNEY FAILURE: <15mL/MIN/1.73 SQ METERSTHIS TEST SHOULD ONLY BE USED FOR PATIENTS 18 YEARS OF AGE AND OLDER. Globulin (S) [Mass/Vol] 3.4 g/dL Normal 1.5 - 3.8 [facility] Comment on above: Performed By: #### 2 50110 ####[facility],[address] [place] [address] 42473 Glucose [Mass/Vol] 86 mg/dL Normal 74 - [address] [facility] Comment on above: Performed By: #### 2 36989 ####[facility],[address] [place] [address]58[address] Potassium [Moles/Vol] 4.1 mmol/L Normal 3.5 - 5.1 [facility] Comment on above: Performed By: #### 2 70335 ####[facility],[address] [place] [address] 29767 Protein [Mass/Vol] 7.3 g/dL Normal 6.4 - 8.[address] [facility] Comment on above: Performed By: #### 2 03907 ####[facility],[address] [place] [address] 33731 Sodium [Moles/Vol] 138 mmol/L Normal 136 - [address] [facility] Comment on above: Performed By: #### 2 72467 ####[facility],[address] [place] [address] 94192 Urea nitrogen [Mass/Vol] 15 mg/dL Normal 7 - [address] [facility] Comment on above: Performed By: #### 2 62444 ####[facility],[address] [place] [address] 10380 FERRITIN [CCL]on 08-31-2024 Ferritin [Mass/Vol] 51.5 ng/mL Normal 14.7-205.[address] [facility] Comment on above: Result Comment: [facility] [id number] Jose Angel SORTO M.D.[id number] Performed By: #### 2 92165 ####[facility],[address] [place] [address] 56675 Ferritin SerPl-mCncon 2024 Ferritin [Mass/Vol] 51.5 ng/mL Normal 14.7-205.1 [facility] Comment on above: Order Comment: Speci men Type: BLOOD SPECIMEN Ordering Facility: [facility] Address: [address] [place] [address] Performed By: #### 2 276-4 #### [facility] CLIA [id number] [address] [place] HEMOGLOBIN A1C (POM)on 08-31 Glucose [Mass/Vol] 99.7 mg/dL High 0.0 - 0.[address] [facility] Comment on above: Result Comment: BLDo HEMOGLOBIN A1C REFERENCE RANGESBLDo Suggested Diagnosis HbA1c(%) HbA1C (mmol/mol Diabetic >/=6.5 >/=48 Prediabetes 5.7 - 6.4 39 - 47 Normal <5.7 <39 Performed By: #### 2 77808 ####[facility],[address] [place] [address] 03217 HbA1c (Bld) [Mass fraction] 5.1 % Normal 0.0 - 6.[address] [facility] Comment on above: Performed By: #### 2 60518 ####[facility],[address] [place] [address] 12270 IRON AND TIBCon 08-31-2024 %SATURATION 22 % Normal [facility] Comment on above: Performed By: #### 2 88734 ####[facility],[address] [place] [address] 61133 Iron [Mass/Vol] 78 ug/dL Normal 50 - [address] [facility] Comment on above: Performed By: #### 2 25006 ####[facility],[address] [place] [address] 55191 TIBC 362 ug/dl Normal 250 - [address] [facility] Comment on above: Performed By: #### 2 03207 ####[facility],[address] [place] [address] 12751 UIBC 284 ug/dL Normal 155 - [address] [facility] Comment on above: Performed By: #### 2 73115 ####[facility],[address] [place] [address] 86173 LIPID PROFILEon 08-31-2024 Cholesterol [Mass/Vol] 155 mg/dL Normal 0 - 240 [facility] Comment on above: Performed By: #### 2 70066 ####[facility],[address] [place] [address] 81048 Cholesterol in HDL [Mass/Vol] 30 mg/dL Low 40 - [address] [facility] Comment on above: Performed By: #### 2 41840 ####[facility],[address] [place] [address] 08083 Cholesterol in LDL [Mass/Vol] 65 mg/dL Normal 0 - [address] [facility] Comment on above: Performed By: #### 2 83070 ####[facility],[address] [place] [address] 20717 Cholesterol.total/Janey sterol in HDL [Mass ratio] 5.2 {ratio} High 0.0 - 5.[address] [facility] Comment on above: Performed By: #### 2 56408 ####[facility],[address] [place] [address] 27475 Lipid 1995 panel Normal [facility] Comment on above: Result Comment: LIPI D PROFILE Performed By: #### 2 56266 ####[facility],[address] [place] [address] 27925 Triglyceride [Mass/Vol] 299 mg/dL High 0 - 150 [facility] Comment on above: Performed By: #### 2 69896 ####[facility],[address] [place] [address] 19850 T4-FREE (FREE THYROXINE)on 0 08-31-2024 Free T4 [Mass/Vol] 0.71 ng/dL Low 0.76 - 1.[address] [facility] Comment on above: Result Comment: P otential of falsely elevated results when biotin concentrations are > 10ng/mL. Performed By: #### 2 07117 ####[facility],[address] [place] [address] 29061 THYROID PEROXIDASE ANTIBODYo n 08-31-2024 TPO Ab Qn [IU]/mL Normal <5.6 [facility] Comment on above: Order Comment: Speci men Type: BLOOD SPECIMEN Ordering Facility: [facility] Address: [address] [place] [address] Result Comment: Thyr oid Peroxidase Antibody test is used as an aid in diagnosis of autoimmune thyroid disease. Clinical correlation is required. Performed By: #### M ICRO #### [facility] CLIA [id number] [address] [place] [address] [place] TSHon 08-31-2024 TSH Qn 1.27 m[IU]/L Normal 0.35 - 3.[address] [facility] Comment on above: Performed By: #### 2 41466 ####[facility] [facility],[address] [place] [address] 92434 VITAMIN B-12on 08-31-2024 Cobalamin (Vitamin B12) [Mass/Vol] 370 pg/mL Normal 193 - [address] [facility] Comment on above: Performed By: #### 2 06594 ####[facility],[address] [place] [address] 21118 Abdomen Single Viewon 2024 Abdomen Single View Normal [facility] Cerv Spine 2 or 3 Viewson Cerv Spine 2 or 3 Views Normal W [facility] Gastroenterology Visit Repor ton 08-16-2024 Gastroenterology Visit Report Normal [facility] ED MED ADMINISTRATION DETAIL on 08-15-2024 ED MED ADMINISTRATION DETAIL Normal [facility] ED NURSES CLINICAL NOTEon ED NURSES CLINICAL NOTE Normal [facility] ED ORDER SHEET (CPOE ONLY)on 08-15-2024 ED ORDER SHEET (CPOE ONLY) Normal [facility] ED PHYSICIAN CLINICAL REPORT on 08-15-2024 ED PHYSICIAN CLINICAL REPORT Normal [facility] ED SUPER BILLon 08-15-2024 ED SUPER BILL Normal [facility] ED VISIT SUMMARYon ED VISIT SUMMARY Normal [facility] ED VITALS FLOW SHEETon 08-15 ED VITALS FLOW SHEET Normal [facility] CBC + DIFFon 08-13-2024 Baso # 0.04 x10EE3/UL Normal 0.00 - 0.[address] [facility] Comment on above: Performed By: #### 2 68630 ####[facility],[address] [place] [address] Basophils/100 WBC (Bld) 0.6 % Normal 0.0 - 2.0 [facility] Comment on above: Performed By: #### 2 49837 ####[facility],[address] [place] [address] CBC + DIFF Normal [facility] Comment on above: Result Comment: CBC- COMPLETE BLOOD COUNT Performed By: #### 2 22981 ####[facility],[address] [place] [address] EO # 0.13 x10EE3/UL Normal 0.00 - 0.[address] [facility] Comment on above: Performed By: #### 2 18411 ####[facility],[address] [place], [place] [id number] Eosinophils/100 WBC (Bld) 1.9 % Normal 0.0 - 7.[address] [facility] Comment on above: Performed By: #### 2 81007 ####[facility],[address] [place] [address] Erythrocyte distribution width (RBC) [Ratio] 13.4 % Normal 12.0 - 15.[address] [facility] Comment on above: Performed By: #### 2 77663 ####[facility],[address] [place] [address] Hematocrit (Bld) [Volume fraction] 40.7 % Normal 34.0 - 46.[address] [facility] Comment on above: Performed By: #### 2 63639 ####[facility],[address] [place] [address] Hemoglobin (Bld) [Mass/Vol] 14.4 g/dL Normal 12.0 - 16.[address] [facility] Comment on above: Performed By: #### 2 00135 ####[facility],[address] [place] [address] Lymph # 1.26 x10EE3/UL Normal 0.80 - 2.[address] [facility] Comment on above: Performed By: #### 2 50447 ####[facility],[address] [place] [address] Lymphocytes/100 WBC (Bld) 18.8 % Low 20.0 - 45.[address] [facility] Comment on above: Performed By: #### 2 84575 ####[facility],[address] [place] [address] MANUAL DIFF N/A Normal [facility] Comment on above: Performed By: #### 2 36261 ####[facility],[address] [place] [address] MCH (RBC) [Entitic mass] 31 pg Normal 27 - [address] [facility] Comment on above: Performed By: #### 2 34520 ####[facility],[address] [place] [address] MCHC 35 X10 3 Normal 32 - [address] [facility] Comment on above: Performed By: #### 2 67063 ####[facility],[address] [place] [address] MCV (RBC) [Entitic vol] 86 fL Normal 80 - 99 [facility] Comment on above: Performed By: #### 2 80330 ####[facility],[address] [place] [address] Mercer # 0.45 x10EE3/UL Normal 0.20 - 1.[address] [facility] Comment on above: Performed By: #### 2 15729 ####[facility],[address] [place] [address] MONOS % 6.7 % Normal 0.0 - 10.[address] [facility] Comment on above: Performed By: #### 2 29166 ####[facility],[address] [place] [address] Morphology [place] (Bld) [Interp] N/A Normal [facility] Comment on above: Performed By: #### 2 21938 ####[facility],[address] [place] [address] Neut # 4.81 x10EE3/UL Normal 1.50 - 7.[address] [facility] Comment on above: Performed By: #### 2 33184 ####[place] [address] Neutrophils/100 WBC (Bld) 72.0 % Normal 46.0 - 76.[address] [facility] Comment on above: Performed By: #### 2 94676 ####[place] [address] PLATELET 393 x10EE3/UL Normal 150 - [address] [facility] Comment on above: Performed By: #### 2 07906 ####[facility],[address],[place] [address] Platelet mean volume (Bld) [Entitic vol] 7.8 fL Normal 6.6 - 10.[address] [facility] Comment on above: Result Comment: AUTO MATED DIFFERENTIAL Performed By: #### 2 12968 ####[facility],[address] [place] [address] 59205 RBC 4.71 x 10EE6/UL Normal 4.10 - 5.[address] [facility] Comment on above: Performed By: #### 2 76105 ####[facility],[address] [place] [address] 16949 WBC 6.7 x 10EE3/UL Normal 4.5 - 10.[address] [facility] Comment on above: Performed By: #### 2 24836 ####[facility],[address] [place] [address] 53196 CMP with eGFRon 08-13-2024 AGE 29 years Normal [facility] Comment on above: Performed By: #### 2 43775 ####[facility],[address] [place] [address] 39100 Albumin [Mass/Vol] 4.2 g/dL Normal 3.4 - 5.[address] [facility] Comment on above: Performed By: #### 2 19392 ####[facility],[address] [place] [address] 01698 Albumin/Globulin [Mass ratio] 1.1 {ratio} Normal 0.9 - 1.[address] [facility] Comment on above: Performed By: #### 2 69490 ####[facility],[address] [place] [address] 63517 ALK PHOS 142 U/L High 46 - [address] [facility] Comment on above: Performed By: #### 2 38742 ####[facility],[address] [place] [address] 00337 ALT [Catalytic activity/Vol] 32 U/L Normal 16 - [address] [facility] Comment on above: Performed By: #### 2 81484 ####[facility],[address] [place] [address] 85572 Anion gap [Moles/Vol] 16 mmol/L Normal 10 - 20 [facility] Comment on above: Performed By: #### 2 73934 ####[facility],[address] [place] [address] 26837 AST [Catalytic activity/Vol] 18 U/L Normal 13 - [address] [facility] Comment on above: Performed By: #### 2 05157 ####[facility],[address] [place] [address] 35686 B/C RATIO 16 ratio Normal 0 - [address] [facility] Comment on above: Performed By: #### 2 37838 ####[facility],[address] [place] [address] 94409 Bilirubin [Mass/Vol] 0.5 mg/dL Normal 0.2 - 1.[address] [facility] Comment on above: Performed By: #### 2 94895 ####[facility],[address] [place] [address] 70819 Calcium [Mass/Vol] 9.2 mg/dL Normal 8.5 - 10.[address] [facility] Comment on above: Performed By: #### 2 09850 ####[facility],[address] [place] [address] 57555 Chloride [Moles/Vol] 105 mmol/L Normal 98 - [address] [facility] Comment on above: Performed By: #### 2 03376 ####[facility],[address] [place] [address] 46592 CMP with eGFR Normal [facility] Comment on above: Result Comment: COMP REHENSIVE METABOLIC PANEL Performed By: #### 2 51472 ####[facility],[address] [place] [address] 07842 CO2 [Moles/Vol] 22.5 mmol/L Normal 21.0 - 32.[address] [facility] Comment on above: Performed By: #### 2 49209 ####[facility],[address] [place] [address] 13233 Creatinine [Mass/Vol] 0.75 mg/dL Normal 0.55 - 1.02 [facility] Comment on above: Performed By: #### 2 93584 ####[facility],[address] [place] [address] 90111 GFR/1.73 sq M.predicted among non-blacks MDRD (S/P/Bld) [Vol rate/Area] mL/min/{1.73_m2} Normal 60 - [address] [facility] Comment on above: Performed By: #### 2 58712 ####[facility],[address] [place] [address] 39454 Result Comment: ACCO RDING TO THE NATIONAL KIDNEY DISEASE EDUCATION PROGRAM(NKDE), A NORMAL eGFRIS A VALUE GREATER THAN OR EQUAL TO 60 ML/MIN/1.73 SQ METERS.CHRONIC KIDNEY DISEASE: <60mL/MIN/1.73 SQ METERSKIDNEY FAILURE: <15mL/MIN/1.73 SQ METERSTHIS TEST SHOULD ONLY BE USED FOR PATIENTS 18 YEARS OF AGE AND OLDER. Globulin (S) [Mass/Vol] 3.8 g/dL Normal 1.5 - 3.8 [facility] Comment on above: Performed By: #### 2 10743 ####[facility],[address] [place] [address] 73014 Glucose [Mass/Vol] 101 mg/dL Normal 74 - [address] [facility] Comment on above: Performed By: #### 2 62172 ####[facility],[address] [place] [address] 53186 Potassium [Moles/Vol] 4.4 mmol/L Normal 3.5 - 5.1 [facility] Comment on above: Performed By: #### 2 51906 ####[facility],[address] [place] [address] 92127 Protein [Mass/Vol] 8.0 g/dL Normal 6.4 - 8.[address] [facility] Comment on above: Performed By: #### 2 58796 ####[facility],[address] [place] [address] Sodium [Moles/Vol] 139 mmol/L Normal 136 - [address] [facility] Comment on above: Performed By: #### 2 31912 ####[facility],[address] [place] [address] Urea nitrogen [Mass/Vol] 12 mg/dL Normal 7 - [address] [facility] Comment on above: Performed By: #### 2 83728 ####[facility],[address] [place] [address] CT ABDOMEN/PELVIS Won 2024 CT ABDOMEN/PELVIS W Normal [facility] LIPASEon 08-13-2024 Lipase [Catalytic activity/Vol] 34.0 U/L Normal 15.0 - 78.[address] [facility] Comment on above: Result Comment: *PLE ASE NOTE THAT RANGES FOR LIPASE HAVE CHANGED OF 03/20/23 DUE TO AN ASSAYUPDATE BY THE ALTERNATIVE MEDICINE PRACTITIONER.THE NEW ASSAY RANGE IS 6-250 U/L, WITH A REFERENCERANGE OF 16-77 U/L. Performed By: #### 2 32568 ####[facility],[address] [place] [address] URINEon 08-13-2024 Beta HCG ( test) Ql (U) Negative Normal NEGATIVE [facility] Comment on above: Performed By: #### 2 15941 ####[facility],[address] [place] [address] EXTERNAL QC DONE? YES Normal [facility] Comment on above: Result Comment: Very dilute urine specimens, as indicated by a low specific gravity, may notcontain international sales representative levels of hCG. If is still suspected, a firstmorning urine specimen should be collected 48 hours later and tested. Performed By: #### 2 78815 ####[place] [address] INTERNAL QC PASS Normal [facility] Comment on above: Performed By: #### 2 92189 ####[facility],[address] [place] [address] 76947 URINALYSISon 08-13-2024 Bilirubin Ql (U) Negative Normal NORMAL: NEGATIVE [facility] Comment on above: Performed By: #### 2 60596 ####[facility],[address] [place] [address] 62244 Clarity (U) clear Normal NORMAL: CLEAR [facility] Comment on above: Performed By: #### 2 47837 ####[facility],[address] [place] [address] 51102 Color (U) p.yel Normal NORMAL: YELLOW [facility] Comment on above: Performed By: #### 2 75427 ####[facility],[address] [place] [address] 41533 Glucose Ql (U) NORM Normal NORMAL: NORMAL [facility] Comment on above: Performed By: #### 2 06243 ####[facility],[address] [place] [address] 56228 Hemoglobin Ql (U) Negative Normal NORMAL: NEGATIVE [facility] Comment on above: Performed By: #### 2 62758 ####[facility],[address] [place] [address] 61678 Ketone Negative Normal NORMAL: NEGATIVE [facility] Comment on above: Performed By: #### 2 60571 ####[facility],[address] [place] [address] 59270 Leukocytes Negative Normal NORMAL: NEGATIVE [facility] Comment on above: Performed By: #### 2 06048 ####[facility],[address] [place] [address] 44437 Nitrite Ql (U) Negative Normal NORMAL: NEGATIVE [facility] Comment on above: Performed By: #### 2 19230 ####[facility],[address] [place] [address] 81563 pH (U) 7 [pH] Normal NORMAL: 5.0-8.[address] [facility] Comment on above: Performed By: #### 2 21349 ####[facility],[address] [place] [address] 78079 Protein Ql (U) Negative Normal NORMAL: NEGATIVE [facility] Comment on above: Performed By: #### 2 09044 ####[facility],[address] [place] [address] Sp L[place] 1.005 Low NORMAL: 1.010-1.[address] [facility] Comment on above: Performed By: #### 2 59902 ####[facility],[address] [place] [address] Specimen Type R Normal [facility] Comment on above: Performed By: #### 2 11848 ####[facility],[address] [place] [address] Urinalysis dipstick W Reflex Microscopic panel (U) NOT INDICATED Normal [facility] Comment on above: Performed By: #### 2 51894 ####[facility],[address] [place], [place] [address] Urobilinog NORM Normal NORMAL: NORMAL [facility] Comment on above: Performed By: #### 2 38764 ####[facility],[address] [place] [address] Genital Culture Comprehensiv anatoliy 08-09-2024 VAC Reason for Exam: vaginal discharge Normal vaginal sean isolated. No yeast, Gardnerella, Neisseria or beta-hemolytic Streptococcus isolated. Normal [facility] Comment on above: Performed By: #### M , M100.3200 ####[facility] [id number] [place], [address] Genital cultureOrdered By: Fortino Christianson on 08-08-2024 Source specific culture Neisseria or beta-hemolytic Streptococcus isolated. [facility] Gram Stainon 08-08-2024 GS Normal [facility] Comment on above: Performed By: #### M 100, M100.3200 ####[facility] [id number] [place], [place], [id number] Gram stainOrdered By: Sada Christianson on 08-08-2024 Microscopic observation Gram stain Nom (Unsp spec) [facility] Laboratory - Chemistry and C hemistry - challengeOrdered By: Sada Christianson on 08-08-2024 Bilirubin Ql (U) Negative [facility] Glucose Ql (U) Negative [facility] Ketones Ql (U) Negative [facility] Specific gravity (U) [Rel density] 1.015 [facility] Urobilinogen (U) [Mass/Vol] Negative [facility] Laboratory - Hematology and Cell countsOrdered By: Sada Christianson on 08-08-2024 Hemoglobin Ql (U) Negative [facility] Laboratory - Specimen inform ationOrdered By: Sada Christianson on 08-08-2024 Clarity (U) Clear [facility] Color (U) Yellow [facility] Laboratory - UrinalysisOrder ed By: Sada Christianson on 08-08-2024 Nitrite Ql (U) Negative [facility] Protein Ql (U) Negative [facility] No Panel InformationOrdered By: Sada Christianson on 08-08-2024 Urine Leukocytes Negatve [facility] Urine Non-Hemolyzed Blood Negative [facility] [employer] Pump Attendant Office Visit Reporton 08-08-2024 Gas Pump Attendant Office Visit Report Normal [facility] Genital Culture Comprehensiv anatoliy 07-28-2024 VAC Normal [facility] Comment on above: Performed By: #### M 100.3200, M1 ####[facility] [id number] [place], [place], [address] Office Visit Reporton 2024 Office Visit Report Normal [facility] THIN PREP ([place]) PAP WITH HP V REFLEXon 07-28-2024 THIN PREP ([place]) PAP WITH HPV REFLEX Normal [facility] Comment on above: Result Comment: _THI N PREP (Adult) PAP w HPV REFLEX_ Performed By: #### 2 76810 ####[facility],[address] [place] [address] 91564 Gram Stainon 07-25-2024 Reason for Exam: vaginal discharge Gram Stain 2+ Gram positive cocci 4+ Gram positive rods No Gram negative diplococci Score = 0 Interpretation: 0-3 Normal, 4-6 Intermediate, 7-10 Positive BV Normal [facility] Comment on above: Performed By: #### M 100.3200, M100.2000 ####[facility] [id number] [place], [address] Gram stainOrdered By: Sada Christianson on 07-25-2024 Microscopic observation Gram stain Nom (Unsp spec) [facility] Laboratory - Chemistry and C hemistry - challengeOrdered By: Sada Christianson on 07-25-2024 Bilirubin Ql (U) Negative [facility] Glucose Ql (U) Negative [facility] Ketones Ql (U) Negative [facility] Specific gravity (U) [Rel density] >1.030 [facility] Urobilinogen (U) [Mass/Vol] Negative [facility] Laboratory - Hematology and Cell countsOrdered By: Sada Christianson on 07-25-2024 Hemoglobin Ql (U) Negative [facility] Laboratory - Specimen inform ationOrdered By: Sada Christianson on 07-25-2024 Clarity (U) Clear [facility] Color (U) YELLOW [facility] Laboratory - UrinalysisOrder ed By: Sada Christianson on 07-25-2024 Nitrite Ql (U) Negative [facility] Protein Ql (U) Negative [facility] No Panel InformationOrdered By: Sada Christianson on 07-25-2024 Urine Leukocytes Negatve [facility] Urine Non-Hemolyzed Blood Negative [facility] [employer] Pump Attendant Office Visit Reporton 07-25-2024 Gas Pump Attendant Office Visit Report Normal [facility] VAGINAL PATHOGEN DNA DIRECT PROBES[LISA]on 07-25-2024 VAGINAL PATHOGEN DNA DIRECT PROBES[LISA] Normal [facility] Comment on above: Result Comment: _VAG INAL PATHOGENS DNA DIRECT PROBES [CCL]_ SEE SEPARATE REPORT Performed By: #### 2 07867 ####[facility],[address] [place] [address] 71336 [employer] Office Visit Reporton 06-29-2024 Gas Pump Attendant Office Visit Report Normal [facility] THYROGLOBULIN AB [CCL]on Thyroglobulin Ab, Serum <0.9 Normal <4.0 [facility] Comment on above: Result Comment: The Thyroglobulin Antibody test was performed using the Mandeep Optirenol DXI paramagnetic particle chemiluminescent immunoassay method.Results obtained with different assay methods or kits cannot be usedinterchangeably.[facility] [place], [place] [address]UujjmzEduardo Walter III, M.D.[id number] Performed By: #### 2 15691 ####[address] [address] Genital Culture Comprehensiv anatoliy 06-25-2024 VAC Reason for Exam: vaginal burning Normal vaginal sean isolated. No yeast, Gardnerella, Neisseria or beta-hemolytic Streptococcus isolated. Normal [facility] Comment on above: Performed By: #### M 100.2000, M100.3200, M100.2200 ####[facility] [id number] [place], [place], [address] T3, FREE [CCL]on 06-25-2024 Free T3 [Mass/Vol] 3.9 pg/mL Normal 2.3-4.[address] [facility] Comment on above: Result Comment: [address] [address]YltlryEduardo Walter III, M.D.[id number] Performed By: #### 2 23701 ####[facility],[address] [place] [address] 88296 T4, FREE [CCL]on 06-25-2024 Free T4 [Mass/Vol] 1.2 ng/dL Normal 0.9-1.[address] [facility] Comment on above: Result Comment: [address] [address]BpzzvyEduardo Walter III, M.D.[id number] Performed By: #### 2 99494 ####[facility],[address] [place] [address] 36359 TSHon 06-25-2024 TSH Qn 1.26 m[IU]/L Normal 0.35 - 3.[address] [facility] Comment on above: Performed By: #### 2 06763 ####[facility],[address] [place] [address] 41875 Urine Cultureon 06-25-2024 URC Mixed Gram Positive Organisms [place] Count 1000-10,000 MIXC Mixed contaminants. Submit a new specimen if indicated. Normal [facility] Comment on above: Performed By: #### M 100.2000, M100.3200, M100.2200 ####[facility] [address] [place], [address] T3Free SerPl-mCncon 06-25-19 25 Free T3 [Mass/Vol] 3.9 pg/mL Normal 2.3-4.1 [facility] Comment on above: Order Comment: Speci men Type: BLOOD SPECIMEN Ordering Facility: [facility] Address: [address] [place] [address] Performed By: #### T CHIKI, 3051-0 #### [facility] CLIA [id number] [address] [place] [address] [place] T4 Free SerPl-mCncon 025 Free T4 [Mass/Vol] 1.2 ng/dL Normal 0.9-1.7 [facility] Comment on above: Order Comment: Speci men Type: BLOOD SPECIMEN Ordering Facility: [facility] Address: [address] [place] [address] Performed By: #### 3 024-7 #### [facility] CLIA [id number] [facility] [place] [address] [place] THYROGLOBULIN ANTIBODYon Thyroglobulin Ab Qn [IU]/mL Normal <4.0 [facility] Comment on above: Order Comment: Speci men Type: BLOOD SPECIMEN Ordering Facility: [facility] Address: [address] [facility], [place] [address] Result Comment: The Thyroglobulin Antibody test was performed using the Mandeep Moontoast Unicel DXI paramagnetic particle chemiluminescent immunoassay method. Results obtained with different assay methods or kits cannot be used interchangeably. Performed By: #### T CHIKI, 3051-0 #### [facility] CLIA [id number] [address] [place] [address] [place] Genital cultureOrdered By: Fortino Christianson on 06-23-2024 Genital Culture Neisseria or beta-hemolytic Streptococcus isolated. [facility] Source specific culture Neisseria or beta-hemolytic Streptococcus isolated. [facility] Gram Stainon 06-23-2024 GS Reason for Exam: vaginal burning Gram Stain 3+ Gram positive rods No White Blood Cells No Gram negative diplococci Score = 1 Interpretation: 0-3 Normal, 4-6 Intermediate, 7-10 Positive BV Normal [facility] Comment on above: Performed By: #### M 100.2000, M100.3200, M100.2200 ####[facility] [address], [address] Gram stainOrdered By: Sada Christianson on 06-23-2024 Microscopic observation Gram stain Nom (Unsp spec) [facility] Laboratory - Chemistry and C hemistry - challengeOrdered By: Sada Christianson on 06-23-2024 Bilirubin Ql (U) Negative [facility] Glucose Ql (U) Negative [facility] Ketones Ql (U) Negative [facility] pH (U) 6 [pH] [facility] Specific gravity (U) [Rel density] 1.005 [facility] Urobilinogen (U) [Mass/Vol] Negative [facility] Laboratory - Hematology and Cell countsOrdered By: Sada Christianson on 06-23-2024 Hemoglobin Ql (U) Trace [facility] Laboratory - Specimen inform ationOrdered By: Sada Christianson on 06-23-2024 Clarity (U) Clear [facility] Color (U) Yellow [facility] Laboratory - UrinalysisOrder ed By: Sada Christianson on 06-23-2024 Nitrite Ql (U) Negative [facility] Protein Ql (U) Negative [facility] No Panel InformationOrdered By: Sada Christianson on 06-23-2024 Urine Leukocytes Negatve [facility] Urine Non-Hemolyzed Blood [facility] Gas Pump Attendant Office Visit Reporton 06-23-2024 Gas Pump Attendant Office Visit Report Normal [facility] Urine cultureOrdered By: Everton Christianson on 06-23-2024 Bacteria identified Cx Nom (U) Positive Abnormal [facility] URINE CULTURE [CCL]on 2024 Bacteria identified Cx Nom (U) Normal [facility] Comment on above: Performed By: #### 2 [id number] ####[facility],[address] [place] [address] Bacteria Ur Culton Bacteria identified Cx Nom (U) ORGANISM ID: 1 <10,000 CFU/ml Mixed microbiota No further workup. Mixed microbiota can be due to???urine???contaminat ion with skin bacteria at time of collection or presence of a long-term urinary catheter. If a new culture is needed, please consider re-education of the patient on proper midstream co llection technique or straight catheterization for???urine???collectio n. Normal [facility] Comment on above: Performed By: #### 6 30-4 #### [facility] CLIA [id number] [address] [place] [address] [place] OF [place] URINEon 06-13-2024 Beta HCG ( test) Ql (U) Negative Normal NEGATIVE [facility] Comment on above: Performed By: #### 2 38288 ####[facility],[address] [place] [address] EXTERNAL QC DONE? YES Normal [facility] Comment on above: Result Comment: Very dilute urine specimens, as indicated by a low specific gravity, may notcontain international sales representative levels of hCG. If is still suspected, a firstmorning urine specimen should be collected 48 hours later and tested. Performed By: #### 2 91131 ####[facility],[address] [facility] [address] INTERNAL QC PASS Normal [facility] Comment on above: Performed By: #### 2 17917 ####[facility],[address] [place] [address] 39693 Genital Culture Comprehensiv anatoliy 05-19-2024 VAC Reason for Exam: vaginal pain Normal vaginal sean isolated. No yeast, Gardnerella, Neisseria or beta-hemolytic Streptococcus isolated. Normal [facility] Comment on above: Performed By: #### M 100.1999, M100.3200 ####[facility] [id number] [place], [place], [address] Genital cultureOrdered By: Anup Garcia on 05-18-2024 Genital Culture Neisseria or beta-hemolytic Streptococcus isolated. [facility] Genital Culture Neisseria or beta-hemolytic Streptococcus isolated. [facility] Source specific culture Neisseria or beta-hemolytic Streptococcus isolated. [facility] Gram Stainon 05-18-2024 GS Reason for Exam: vaginal pain Gram Stain 3+ Gram positive rods No Gram negative diplococci Rare White Blood Cells Score = 0 Interpretation: 0-3 Normal, 4-6 Intermediate, 7-10 Positive BV Normal [facility] Comment on above: Performed By: #### M 100.1999, 3200 ####[facility] [id number] [place], [place], [id number] Gram stainOrdered By: Portia Garcia on 05-18-2024 Microscopic observation Gram stain Nom (Unsp spec) [facility] Microscopic observation Gram stain Nom (Unsp spec) [facility] Nasopharyngeal Cultureon NAC No growth in 48 hours. Normal [facility] Comment on above: Performed By: #### M 100.2499, ####[facility] [id number] [place], [place], [address] Gas Pump Attendant Office Visit Reporton 05-18-2024 Gas Pump Attendant Office Visit Report Normal [facility] Gram Stainon 05-17-2024 GS Gram Stain 1+ White Blood Cells No organisms seen Normal [facility] Comment on above: Performed By: #### M 100.2500, M100.2000 ####[facility] [address] [place], [address] Gram stainOrdered By: Chuckie Mckinney on 05-16-2024 Microscopic observation Gram stain Nom (Unsp spec) [facility] Microscopic observation Gram stain Nom (Unsp spec) [facility] Nasopharyngeal cultureOrdere d By: Maged Mckinney on 05-16-2024 Nasopharyngeal Culture No growth in 48 hours. [facility] Nasopharyngeal Culture No growth in 48 hours. [facility] CBC + DIFFon 05-11-2024 Baso # 0.04 x10EE3/UL Normal 0.00 - 0.[address] [facility] Comment on above: Performed By: #### 2 64577 ####[facility],[address] [place] [address] 33851 Basophils/100 WBC (Bld) 0.5 % Normal 0.0 - 2.0 [facility] Comment on above: Performed By: #### 2 38352 ####[facility],[address] [place] [address] CBC + DIFF Normal [facility] Comment on above: Result Comment: CBC- COMPLETE BLOOD COUNT Performed By: #### 2 81923 ####[facility],[address] [place] [address] 50702 EO # 0.14 x10EE3/UL Normal 0.00 - 0.[address] [facility] Comment on above: Performed By: #### 2 57755 ####[facility],[address] [place] [address] 64662 Eosinophils/100 WBC (Bld) 1.7 % Normal 0.0 - 7.[address] [facility] Comment on above: Performed By: #### 2 83253 ####[facility],[address] [place] [address] 59565 Erythrocyte distribution width (RBC) [Ratio] 13.1 % Normal 12.0 - 15.[address] [facility] Comment on above: Performed By: #### 2 77658 ####[facility],[address] [place] [address] Hematocrit (Bld) [Volume fraction] 42.9 % Normal 34.0 - 46.[address] [facility] Comment on above: Performed By: #### 2 71327 ####[facility],[address] [place] [address] Hemoglobin (Bld) [Mass/Vol] 15.2 g/dL Normal 12.0 - 16.[address] [facility] Comment on above: Performed By: #### 2 64396 ####[facility],[address] [place] [address] Lymph # 2.09 x10EE3/UL Normal 0.80 - 2.[address] [facility] Comment on above: Performed By: #### 2 10860 ####[facility],[address] [place], [place] [id number] Lymphocytes/100 WBC (Bld) 25.5 % Normal 20.0 - 45.[address] [facility] Comment on above: Performed By: #### 2 30664 ####[facility],[address] [place], [place] [id number] MANUAL DIFF N/A Normal [facility] Comment on above: Performed By: #### 2 46123 ####[facility],[address] [place] [address] MCH (RBC) [Entitic mass] 31 pg Normal 27 - [address] [facility] Comment on above: Performed By: #### 2 34803 ####[place] [id number] MCHC 36 X10 3 Normal 32 - [address] [facility] Comment on above: Performed By: #### 2 99839 ####[facility],[address] [place], [place] [id number] MCV (RBC) [Entitic vol] 86 fL Normal 80 - 99 [facility] Comment on above: Performed By: #### 2 56649 ####[facility],[address] [place] [address] Mercer # 0.47 x10EE3/UL Normal 0.20 - 1.[address] [facility] Comment on above: Performed By: #### 2 25506 ####[facility],[address] [place] [address] MONOS % 5.7 % Normal 0.0 - 10.[address] [facility] Comment on above: Performed By: #### 2 12832 ####[facility],[address] [place] [address] Morphology [place] (Bld) [Interp] N/A Normal [facility] Comment on above: Performed By: #### 2 22670 ####[facility],[address] [place] [address] Neut # 5.47 x10EE3/UL Normal 1.50 - 7.[address] [facility] Comment on above: Performed By: #### 2 52475 ####[place] [address] Neutrophils/100 WBC (Bld) 66.6 % Normal 46.0 - 76.[address] [facility] Comment on above: Performed By: #### 2 51276 ####[place] [address] PLATELET 396 x10EE3/UL Normal 150 - [address] [facility] Comment on above: Performed By: #### 2 10207 ####[facility],[address] [place] [address] Platelet mean volume (Bld) [Entitic vol] 7.3 fL Normal 6.6 - 10.[address] [facility] Comment on above: Result Comment: AUTO MATED DIFFERENTIAL Performed By: #### 2 37373 ####[place] [address] RBC 5.00 x 10EE6/UL Normal 4.10 - 5.[address] [facility] Comment on above: Performed By: #### 2 25349 ####[facility],[address] [place] [address] 83693 WBC 8.2 x 10EE3/UL Normal 4.5 - 10.[address] [facility] Comment on above: Performed By: #### 2 92480 ####[facility],[address] [place] [address] 58931 CMP with eGFRon 05-11-2024 AGE 28 years Normal [facility] Comment on above: Performed By: #### 2 56767 ####[facility],[address] [place] [address] 15128 Albumin [Mass/Vol] 4.2 g/dL Normal 3.4 - 5.[address] [facility] Comment on above: Performed By: #### 2 86630 ####[facility],[address] [place], [place] [id number] Albumin/Globulin [Mass ratio] 1.1 {ratio} Normal 0.9 - 1.[address] [facility] Comment on above: Performed By: #### 2 69277 ####[facility],[address] [place] [address] 44846 ALK PHOS 145 U/L High 46 - [address] [facility] Comment on above: Performed By: #### 2 69865 ####[facility],[address] [place] [address] 28718 ALT [Catalytic activity/Vol] 26 U/L Normal 16 - [address] [facility] Comment on above: Performed By: #### 2 44473 ####[facility],[address] [place] [address] 93591 Anion gap [Moles/Vol] 15 mmol/L Normal 10 - 20 [facility] Comment on above: Performed By: #### 2 33821 ####[facility],[address] [place] [address] 53804 AST [Catalytic activity/Vol] 12 U/L Low 13 - [address] [facility] Comment on above: Performed By: #### 2 62672 ####[facility],[address] [place] [address] 81393 B/C RATIO 13 ratio Normal 0 - [address] [facility] Comment on above: Performed By: #### 2 84556 ####[facility],[address] [place] [address] 38032 Bilirubin [Mass/Vol] 0.3 mg/dL Normal 0.2 - 1.[address] [facility] Comment on above: Performed By: #### 2 01215 ####[facility],[address] [place] [address] 68720 Calcium [Mass/Vol] 9.4 mg/dL Normal 8.5 - 10.[address] [facility] Comment on above: Performed By: #### 2 21125 ####[facility],[address] [place] [address] 10628 Chloride [Moles/Vol] 107 mmol/L Normal 98 - [address] [facility] Comment on above: Performed By: #### 2 94481 ####[facility],[address] [place] [address] 79477 CMP with eGFR Normal [facility] Comment on above: Result Comment: COMP REHENSIVE METABOLIC PANEL Performed By: #### 2 52479 ####[facility],[address] [place] [address] 38676 CO2 [Moles/Vol] 24.7 mmol/L Normal 21.0 - 32.[address] [facility] Comment on above: Performed By: #### 2 60588 ####[facility],[address] [place] [address] 10084 Creatinine [Mass/Vol] 0.63 mg/dL Normal 0.55 - 1.02 [facility] Comment on above: Performed By: #### 2 17584 ####[facility],[address] [place] [address] 88911 GFR/1.73 sq M.predicted among non-blacks MDRD (S/P/Bld) [Vol rate/Area] mL/min/{1.73_m2} Normal 60 - [address] [facility] Comment on above: Performed By: #### 2 36736 ####[facility],[address] [place] [address] 81093 Result Comment: ACCO RDING TO THE NATIONAL KIDNEY DISEASE EDUCATION PROGRAM(NKDE), A NORMAL eGFRIS A VALUE GREATER THAN OR EQUAL TO 60 ML/MIN/1.73 SQ METERS.CHRONIC KIDNEY DISEASE: <60mL/MIN/1.73 SQ METERSKIDNEY FAILURE: <15mL/MIN/1.73 SQ METERSTHIS TEST SHOULD ONLY BE USED FOR PATIENTS 18 YEARS OF AGE AND OLDER. Globulin (S) [Mass/Vol] 4.0 g/dL High 1.5 - 3.8 [facility] Comment on above: Performed By: #### 2 03467 ####[facility],[address] [place] [address] 63562 Glucose [Mass/Vol] 93 mg/dL Normal 74 - [address] [facility] Comment on above: Performed By: #### 2 64309 ####[facility],[address] [place] [address] 88704 Potassium [Moles/Vol] 3.5 mmol/L Normal 3.5 - 5.1 [facility] Comment on above: Performed By: #### 2 40807 ####[facility],[address] [place] [address] 46155 Protein [Mass/Vol] 8.2 g/dL Normal 6.4 - 8.[address] [facility] Comment on above: Performed By: #### 2 42851 ####[facility],[address] [place] [address] 75231 Sodium [Moles/Vol] 143 mmol/L Normal 136 - [address] [facility] Comment on above: Performed By: #### 2 30208 ####[facility],[address] [place] [address] Urea nitrogen [Mass/Vol] 8 mg/dL Normal 7 - [address] [facility] Comment on above: Performed By: #### 2 20814 ####[facility],[address] [place] [address] CT ABDOMEN/PELVIS Won 2024 CT ABDOMEN/PELVIS W Normal [facility] ED MED ADMINISTRATION DETAIL on 05-11-2024 ED MED ADMINISTRATION DETAIL Normal [facility] ED NURSES CLINICAL NOTEon ED NURSES CLINICAL NOTE Normal [facility] ED ORDER SHEET (CPOE ONLY)on 05-11-2024 ED ORDER SHEET (CPOE ONLY) Normal [facility] ED PHYSICIAN CLINICAL REPORT on 05-11-2024 ED PHYSICIAN CLINICAL REPORT Normal [facility] ED PHYSICIAN DISCHARGE REPOR Ton 05-11-2024 ED PHYSICIAN DISCHARGE REPORT Normal [facility] ED SUPER BILLon 05-11-2024 ED SUPER BILL Normal [facility] ED VISIT SUMMARYon ED VISIT SUMMARY Normal [facility] ED VITALS FLOW SHEETon 05-11 ED VITALS FLOW SHEET Normal [facility] LIPASEon 05-11-2024 Lipase [Catalytic activity/Vol] 44.0 U/L Normal 15.0 - 78.[address] [facility] Comment on above: Result Comment: *PLE ASE NOTE THAT RANGES FOR LIPASE HAVE CHANGED OF 03/20/23 DUE TO AN ASSAYUPDATE BY THE ALTERNATIVE MEDICINE PRACTITIONER.THE NEW ASSAY RANGE IS 6-250 U/L, WITH A REFERENCERANGE OF 16-77 U/L. Performed By: #### 2 83094 ####[facility],[address] [place] [address] SERUM QUALon 05-11 EXTERNAL QC DONE? YES Normal [facility] Comment on above: Performed By: #### 2 09188 ####[facility],[address] [place] [address] INTERNAL QC PASS Normal [facility] Comment on above: Performed By: #### 2 50858 ####[facility],[address] [place] [address] 93351 SER Negative Normal NEGATIVE [facility] Comment on above: Performed By: #### 2 72855 ####[facility],[address] [place] [address] 62480 URINALYSISon 05-11-2024 Bilirubin Ql (U) Negative Normal NORMAL: NEGATIVE [facility] Comment on above: Performed By: #### 2 18515 ####[facility],[address] [place] [address] 65566 Clarity (U) clear Normal NORMAL: CLEAR [facility] Comment on above: Performed By: #### 2 07763 ####[facility],[address] [place] [address] 52037 Color (U) yellow Normal NORMAL: YELLOW [facility] Comment on above: Performed By: #### 2 73210 ####[facility],[address] [place] [address] 69301 Glucose Ql (U) NORM Normal NORMAL: NORMAL [facility] Comment on above: Performed By: #### 2 19989 ####[facility],[address] [place] [address] 70038 Hemoglobin Ql (U) Negative Normal NORMAL: NEGATIVE [facility] Comment on above: Performed By: #### 2 15276 ####[facility],[address] [place] [address] 28004 Ketone Negative Normal NORMAL: NEGATIVE [facility] Comment on above: Performed By: #### 2 29490 ####[facility],[address] [place] [address] 14122 Leukocytes Negative Normal NORMAL: NEGATIVE [facility] Comment on above: Performed By: #### 2 35057 ####[facility],[address] [place] [address] 51825 Nitrite Ql (U) Negative Normal NORMAL: NEGATIVE [facility] Comment on above: Performed By: #### 2 87998 ####[facility],[address] [place] [address] pH (U) 7 [pH] Normal NORMAL: 5.0-8.[address] [facility] Comment on above: Performed By: #### 2 90639 ####[facility],[address] [place] [address] Protein Ql (U) 30 Abnormal NORMAL: NEGATIVE [facility] Comment on above: Performed By: #### 2 57643 ####[facility],[address] [place] [address] Sp Lodi 1.010 Normal NORMAL: 1.010-1.[address] [facility] Comment on above: Performed By: #### 2 24012 ####[facility],[address] [place] [address] Specimen Type R Normal [facility] Comment on above: Performed By: #### 2 65617 ####[facility],[address] [place] [address] Urinalysis dipstick W Reflex Microscopic panel (U) NOT INDICATED Normal [facility] Comment on above: Performed By: #### 2 61547 ####[facility],[address] [place] [address] Urobilinog NORM Normal NORMAL: NORMAL [facility] Comment on above: Performed By: #### 2 49917 ####[facility],[address] [place] [address] Gas Pump Attendant Office Visit Reporton 05-02-2024 Gas Pump Attendant Office Visit Report Normal [facility] Bacteria Ur Culton Bacteria identified Cx Nom (U) ORGANISM ID: 1 >=100,000 CFU/ml Klebsiella oxytoca ORGANISM ID: 1 (KLEBSIELLA OXYTOCA) ANTIBIOTIC INTERPRETATION KELI STATUS REFERENCE RANGE Ampicillin R F Cefazolin S <=4 F Susceptible 0-16 , Intermediate <0 or >16 , Resistant >16 For uncomplicated urinary tract infections, cefazolin results can be used to predict susceptibility or resistance to cephalexin. Ceftriaxone S <=1 F Susceptible <=1 , Intermediate >1 , Resistant >=4 Cefepime S <=1 F Susceptible <=2 , Susceptible-Dose Dependent >2 , Resistant >=16 Ertapenem S <=0.5 F Susceptible <=0.5 , Intermediate >.5 , Resistant >1 Meropenem S <=0.25 F Susceptible <=1 , Intermediate >1 , Resistant >2 Ampicillin/Sulbact S <=2 F Susceptible <=8 , Intermediate >8 , Resistant >16 Piperacillin/Tazobac S <=4 F Susceptible <16 , Susceptible-Dose Dependent >=16 , Resistant >=32 Gentamicin S <=1 F Susceptible <=2 , Intermediate >2 , Resistant >=8 Tobramycin S <=1 F Susceptible <4 , Intermediate >=4 , Resistant >=8 Trimeth sulfameth S <=20 F Susceptible <=40 , Resistant >40 Ciprofloxacin S <=0.25 F Susceptible <0.5 , Intermediate >=.5 , Resistant >=1 Nitrofurantoin S 32 F Susceptible <=32 , Intermediate >32 , Resistant >64 Abnormal [facility] Comment on above: Performed By: #### 6 30-4 #### [facility] CLIA [id number] [address] [place] [address] [place] URINE CULTURE [CCL]on 2024 Bacteria identified Cx Nom (U) Normal [facility] Comment on above: Performed By: #### 2 41190 ####[facility],[address] [place] [address] 66299 CNOVon 04-27-2024 CNOV Office Visit (NEMOWS ) NAPOLEON VALLES ([id number]) 1995 F Date Time Provider Department 04/27/24 8:30 AM RENETTA DEE During your visit today, we recorded the following information about you: Pulse Respiration Blood pressure Weight 104/minute 18/minute 119/86 61.1 kg Renetta Dee PA-C 04/27/2024 9:19 AM Signed Neurology Outpatient Clinic Date: April 27, 2024 Patient Name: Napoleon Valles Referring physician: SELF Primary physician: Hoda [address] [place] [address] Reason for Evaluation: Headaches Subjective HPI Napoleon Valles is a 28 year old female with history of osteogenesis imperfecta, migraine who presents for evaluation of headaches. Dr. Hoda Smith, RADIO TELEVISION TECHNICAL DIRECTOR is the PCP. Chart review: Had a baby last summer/fall. Followed by neuro at outside clinic, last seen last week. RANKIN started after traumatic intracranial hemorrhage when she was 13 years old.Had MRI many years ago Patient with chronic migraines, previously following other neurology until last week. Had increase in amitriptyline but has not noticed any benefit. Noting almost every day headaches. Describes frontal pain that occasionally radiates to the posterior aspect of the head and into the neck. Gets some nausea with this but no other migrainous symptoms. No autonomic features, new onset with Valsalva, position change or exertion. No new symptoms or concerns. Notes that her headaches started after she was 13 years old, tripped and fell while at school and sustained an intracranial hemorrhage, attributes this to her history of osteogenesis imperfecta. Notes that has been taking [id number] medications almost daily because she wants out of Ubrelvy. Current Headache treatment Preventative: elavil 100mg, TPM 100mg Abortive: ubrelvy, OTC Medications effective? sometimes # of doses of abortive medications per month: daily Previous Medications: Ubrelvy ASA Fioricet Elavil Eletriptan Labetolol Imitrex TPM Effexor Amlodipine Maxalt Cymbalta Gabapentin Headache Description Onset: 13 years old Total headache days per month: daily Total headache attacks per month: daily Headache free days: No Duration of attacks: continuously Severity of headaches? Can be up to a 10/10 Onset to Peak: gradual Location: sometimes starts in forehead and then to the back of the head, both sides . Aura: None. Sometimes sees spots Prodrome:none. Accompanying symptoms: nausea, neck pain, agitation. Quality:sharp, throbbing, and burning. Worse with activity: sometimes Triggers: none, maybe depo. Cough/sneeze/valsalva as trigger: no Positional changes: No Most common time of day for headache to begin:anytime. Time missed from work or school: none Risk Factors Visual-Motion sensitivity: No Tobacco Use: No Alcohol Use: No Other substances: No Caffeine: Yes, iced coffee and sweet tea all day Water- sometimes Neck Pain /Back Pain: No Fibromyalgia: No History of Motor Vehicle Accident: No History of Traumatic Brain Injury and/or Concussion: Yes, 13 years old History of severe infection: No History of Syncope: No Obesity: No, Body mass index is 27 Eye doc- been a few months - no Family History Migraine or other headaches in the family: no Aneurysms in a first degree relative: No Brain tumors in the family: No Other neurological illness in the family: no ROS Review of Systems CONSTITUTIONAL: No reported fevers, chills, night sweats, or significant unintentional weight loss. EYES: No visual changes indicated. No eye pain or orbital swelling reported. HEENT: No hearing changes or vertiginous symptoms indicated. No history of nose bleeds reported. RESPIRATORY: No reported cough, wheezing and dyspnea. CARDIOVASCULAR: Negative for significant chest pain, and palpitations per report. GI: Negative for significant abdominal discomfort, blood in stools or black stools reported. No recent reported change in bowel habits. : No reported history of incontinence. No dark/cola colored urine reported. MUSCLOSKELETAL: No history of significant joint pain or swelling, or myalgias reported. SKIN: Negative for pertinent lesions, rash, and itching per report. HEMATOLOGY/ONCOLOGY: Negative for reported prolonged bleeding, bruising easily, and swollen nodes. ENDOCRINE: Negative for reported significant cold or heat intolerance, no reported goitrous neck swelling or polydipsia PSYCH: No reported depression or anxiety symptoms. No reported SI or HI. NEURO: Per HPI above. Sleep: has a 6 month old, frequent awakenings, Medications: Current Outpatient Medications Medication Sig Dispense Refill amitriptyline (ELAVIL) 100 mg tablet Take 100 mg by mouth daily at bedtime. levothyroxine 25 mcg cap Take 25 mcg by mouth d (more content not included)... Normal [facility] Genital Culture Comprehensiv anatoliy 04-23-2024 VAC Reason for Exam: pel leo pain No Gardnerella, Neisseria or beta-hemolytic Streptococcus isolated. Presumptive C albicans Amount Growth 2+ Normal [facility] Comment on above: Performed By: #### M 100.1999, M100.3200 ####[facility] [id number] [place], [place], [id number] Neurology Visit Reporton Neurology Visit Report Normal [facility] Genital cultureOrdered By: Fortino Christianson on 04-20-2024 Genital Culture Presumptive C albicans Abnormal [facility] Genital Culture Presumptive C albicans Abnormal [facility] Gram Stainon 04-20-2024 GS Normal [facility] Comment on above: Performed By: #### M 100.1999, M100.3200 ####[facility] [id number] [place], [address] Gram stainOrdered By: Sada Christianson on 04-20-2024 Microscopic observation Gram stain Nom (Unsp spec) [facility] Microscopic observation Gram stain Nom (Unsp spec) [facility] Laboratory - Chemistry and C hemistry - challengeon 04-20-2024 Bilirubin Ql (U) Negative [facility] Glucose Ql (U) Negative [facility] Ketones Ql (U) Negative [facility] pH (U) 7.5 [pH] [facility] Specific gravity (U) [Rel density] 1.010 [facility] Urobilinogen (U) [Mass/Vol] Negative [facility] Laboratory - Hematology and Cell countson 04-20-2024 Hemoglobin Ql (U) Negative [facility] Laboratory - Specimen inform ationon 04-20-2024 Clarity (U) Clear [facility] Color (U) Yellow [facility] Laboratory - Urinalysison Nitrite Ql (U) Negative [facility] Protein Ql (U) Negative [facility] No Panel Informationon 04-20 Urine Leukocytes Negatve [facility] Urine Non-Hemolyzed Blood [facility] Gas Pump Attendant Office Visit Reporton 04-20-2024 Gas Pump Attendant Office Visit Report Normal [facility] C-REACTIVE PROTEINon 025 CRP 0.43 mg/dl Normal 0.00 - 0.[address] [facility] Comment on above: Performed By: #### 2 [id number] ####[facility],[address] [place] [address] CBC + DIFFon 04-19-2024 Baso # 0.04 x10EE3/UL Normal 0.00 - 0.[address] [facility] Comment on above: Performed By: #### 2 94170 ####[facility],[address] [place] [address] Basophils/100 WBC (Bld) 0.4 % Normal 0.0 - 2.0 [facility] Comment on above: Performed By: #### 2 90458 ####[facility],[address] [place] [address] CBC + DIFF Normal [facility] Comment on above: Result Comment: CBC- COMPLETE BLOOD COUNT Performed By: #### 2 09299 ####[facility],[address] [place] [address] EO # 0.05 x10EE3/UL Normal 0.00 - 0.[address] [facility] Comment on above: Performed By: #### 2 76693 ####[place] [id number] Eosinophils/100 WBC (Bld) 0.4 % Normal 0.0 - 7.[address] [facility] Comment on above: Performed By: #### 2 93680 ####[place] [address] Erythrocyte distribution width (RBC) [Ratio] 13.0 % Normal 12.0 - 15.[address] [facility] Comment on above: Performed By: #### 2 52970 ####[place] [address] Hematocrit (Bld) [Volume fraction] 44.2 % Normal 34.0 - 46.[address] [facility] Comment on above: Performed By: #### 2 75850 ####[place] [address] Hemoglobin (Bld) [Mass/Vol] 15.2 g/dL Normal 12.0 - 16.[address] [facility] Comment on above: Performed By: #### 2 69582 ####[place] [address] Lymph # 0.85 x10EE3/UL Normal 0.80 - 2.[address] [facility] Comment on above: Performed By: #### 2 00820 ####[place] [id number] Lymphocytes/100 WBC (Bld) 6.8 % Low 20.0 - 45.[address] [facility] Comment on above: Performed By: #### 2 34349 ####[place] [id number] MANUAL DIFF N/A Normal [facility] Comment on above: Performed By: #### 2 83596 ####[place] [address] MCH (RBC) [Entitic mass] 30 pg Normal 27 - [address] [facility] Comment on above: Performed By: #### 2 42812 ####[facility],[address] [place] [address] MCHC 35 X10 3 Normal 32 - [address] [facility] Comment on above: Performed By: #### 2 13252 ####[facility],[address] [place] [address] MCV (RBC) [Entitic vol] 86 fL Normal 80 - 99 [facility] Comment on above: Performed By: #### 2 86373 ####[facility],[address] [place] [address] Mercer # 0.28 x10EE3/UL Normal 0.20 - 1.[address] [facility] Comment on above: Performed By: #### 2 59780 ####[facility],[address] [place] [address] MONOS % 2.2 % Normal 0.0 - 10.[address] [facility] Comment on above: Performed By: #### 2 23150 ####[facility],[address] [place] [address] Morphology [place] (Bld) [Interp] N/A Normal [facility] Comment on above: Performed By: #### 2 86114 ####[facility],[address] [place] [address] Neut # 11.35 x10EE3/UL High 1.50 - 7.[address] [facility] Comment on above: Performed By: #### 2 02238 ####[place] [id number] Neutrophils/100 WBC (Bld) 90.3 % High 46.0 - 76.[address] [facility] Comment on above: Performed By: #### 2 83626 ####[facility],[address] [place], [place] [id number] PLATELET 400 x10EE3/UL Normal 150 - [address] [facility] Comment on above: Performed By: #### 2 41947 ####[facility],[address] [place] [address] Platelet mean volume (Bld) [Entitic vol] 7.6 fL Normal 6.6 - 10.[address] [facility] Comment on above: Result Comment: AUTO MATED DIFFERENTIAL Performed By: #### 2 41026 ####[facility],[address] [place] [address] RBC 5.13 x 10EE6/UL Normal 4.10 - 5.[address] [facility] Comment on above: Performed By: #### 2 13207 ####[facility],[address] [place] [address] WBC 12.6 x 10EE3/UL High 4.5 - 10.[address] [facility] Comment on above: Performed By: #### 2 80033 ####[facility],[address] [place] [address] CMP with eGFRon 04-19-2024 AGE 28 years Normal [facility] Comment on above: Performed By: #### 2 80015 ####[facility],[address] [place] [address] Albumin [Mass/Vol] 4.1 g/dL Normal 3.4 - 5.[address] [facility] Comment on above: Performed By: #### 2 12024 ####[facility],[address] [place], [place] [id number] Albumin/Globulin [Mass ratio] 1.1 {ratio} Normal 0.9 - 1.[address] [facility] Comment on above: Performed By: #### 2 03455 ####[facility],[address] [place] [address] ALK PHOS 146 U/L High 46 - [address] [facility] Comment on above: Performed By: #### 2 30851 ####[facility],[address] [place] [address] ALT [Catalytic activity/Vol] 24 U/L Normal 16 - [address] [facility] Comment on above: Performed By: #### 2 96607 ####[facility],[address] [place] [address] Anion gap [Moles/Vol] 14 mmol/L Normal 10 - 20 [facility] Comment on above: Performed By: #### 2 10574 ####[facility],[address] [place] [address] AST [Catalytic activity/Vol] 13 U/L Normal 13 - [address] [facility] Comment on above: Performed By: #### 2 72496 ####[facility],[address] [place] [address] B/C RATIO 18 ratio Normal 0 - [address] [facility] Comment on above: Performed By: #### 2 35085 ####[facility],[address] [place] [address] Bilirubin [Mass/Vol] 0.4 mg/dL Normal 0.2 - 1.[address] [facility] Comment on above: Performed By: #### 2 65268 ####[facility],[address] [place] [address] Calcium [Mass/Vol] 8.9 mg/dL Normal 8.5 - 10.[address] [facility] Comment on above: Performed By: #### 2 53951 ####[facility],[address] [place], [place] [id number] Chloride [Moles/Vol] 104 mmol/L Normal 98 - [address] [facility] Comment on above: Performed By: #### 2 63079 ####[facility],[address] [place] [address] CMP with eGFR Normal [facility] Comment on above: Result Comment: COMP REHENSIVE METABOLIC PANEL Performed By: #### 2 20682 ####[facility],[address] [place] [address] CO2 [Moles/Vol] 24.4 mmol/L Normal 21.0 - 32.[address] [facility] Comment on above: Performed By: #### 2 27405 ####[facility],[address] [place], [place] [id number] Creatinine [Mass/Vol] 0.62 mg/dL Normal 0.55 - 1.02 [facility] Comment on above: Performed By: #### 2 89807 ####[facility],[address] [place], [place] [id number] GFR/1.73 sq M.predicted among non-blacks MDRD (S/P/Bld) [Vol rate/Area] mL/min/{1.73_m2} Normal 60 - [address] [facility] Comment on above: Performed By: #### 2 21183 ####[facility],[address] [place] [address] Result Comment: ACCO RDING TO THE NATIONAL KIDNEY DISEASE EDUCATION PROGRAM(NKDE), A NORMAL eGFRIS A VALUE GREATER THAN OR EQUAL TO 60 ML/MIN/1.73 SQ METERS.CHRONIC KIDNEY DISEASE: <60mL/MIN/1.73 SQ METERSKIDNEY FAILURE: <15mL/MIN/1.73 SQ METERSTHIS TEST SHOULD ONLY BE USED FOR PATIENTS 18 YEARS OF AGE AND OLDER. Globulin (S) [Mass/Vol] 3.9 g/dL High 1.5 - 3.8 [facility] Comment on above: Performed By: #### 2 97159 ####[facility],[address] [place] [address] Glucose [Mass/Vol] 100 mg/dL Normal 74 - [address] [facility] Comment on above: Performed By: #### 2 61002 ####[facility],[address] [place] [address] Potassium [Moles/Vol] 4.0 mmol/L Normal 3.5 - 5.1 [facility] Comment on above: Performed By: #### 2 31623 ####[facility],[address] [place] [address] Protein [Mass/Vol] 8.0 g/dL Normal 6.4 - 8.[address] [facility] Comment on above: Performed By: #### 2 14720 ####[facility],[address] [place] [address] Sodium [Moles/Vol] 138 mmol/L Normal 136 - [address] [facility] Comment on above: Performed By: #### 2 68163 ####[facility],[address] [place] [address] Urea nitrogen [Mass/Vol] 11 mg/dL Normal 7 - [address] [facility] Comment on above: Performed By: #### 2 51859 ####[facility],[address] [place] [address] BRAIN W/O CONTRASTon 03-24 CT BRAIN W/O CONTRAST Normal [facility] ED MED ADMINISTRATION DETAIL on 04-19-2024 ED MED ADMINISTRATION DETAIL Normal [facility] ED NURSES CLINICAL NOTEon ED NURSES CLINICAL NOTE Normal [facility] ED ORDER SHEET (CPOE ONLY)on 04-19-2024 ED ORDER SHEET (CPOE ONLY) Normal [facility] ED PHYSICIAN CLINICAL REPORT on 04-19-2024 ED PHYSICIAN CLINICAL REPORT Normal [facility] ED PHYSICIAN DISCHARGE REPOR Ton 04-19-2024 ED PHYSICIAN DISCHARGE REPORT Normal [facility] ED SUPER BILLon 04-19-2024 ED SUPER BILL Normal [facility] ED VISIT SUMMARYon ED VISIT SUMMARY Normal [facility] ED VITALS FLOW SHEETon 04-19 ED VITALS FLOW SHEET Normal [facility] CERVICAL SP COMPLETE, 4 OR 5 VIEWSon 04-12-2024 CERVICAL SP COMPLETE, 4 OR 5 VIEWS Normal [facility] ED MED ADMINISTRATION DETAIL on 03-10-2024 ED MED ADMINISTRATION DETAIL Normal [facility] ED NURSES CLINICAL NOTEon 12 -19-2024 ED NURSES CLINICAL NOTE Normal [facility] ED ORDER SHEET (CPOE ONLY)on 03-10-2024 ED ORDER SHEET (CPOE ONLY) Normal [facility] ED PHYSICIAN CLINICAL REPORT on 03-10-2024 ED PHYSICIAN CLINICAL REPORT Normal [facility] ED PHYSICIAN DISCHARGE REPOR Ton 03-10-2024 ED PHYSICIAN DISCHARGE REPORT Normal [facility] ED SUPER BILLon 03-10-2024 ED SUPER BILL Normal [facility] ED VISIT SUMMARYon ED VISIT SUMMARY Normal [facility] ED VITALS FLOW SHEETon 03-10 ED VITALS FLOW SHEET Normal [facility] CALCIUM, IONIZED WBon 2023 Calcium, Ionized WB 4.39 mg/dL Low 4.60-5.28 [facility] Comment on above: Order Comment: Relea se to patient->Automatic PH 7.341 Invalid Interpretation Code 7.280-7.420 [facility] Comment on above: Order Comment: Relea se to patient->Automatic COMPREHENSIVE METABOLIC PANE Kyle 03-08-2024 Albumin [Mass/Vol] 4.0 g/dL Invalid Interpretation Code 3.5-5.0 [facility] Comment on above: Order Comment: Relea se to patient->Automatic Result Comment: Veri fied By: [id number] ALP [Catalytic activity/Vol] 137 U/L High 35-104 [facility] Comment on above: Order Comment: Relea se to patient->Automatic Result Comment: Veri fied By: [id number] ALT [Catalytic activity/Vol] 62 U/L High <=34 [facility] Comment on above: Order Comment: Relea se to patient->Automatic Result Comment: Veri fied By: [id number] AST [Catalytic activity/Vol] 27 U/L Invalid Interpretation Code <=31 [facility] Comment on above: Order Comment: Relea se to patient->Automatic Result Comment: Veri fied By: [id number] BILI,TOTAL 0.3 mg/dL Invalid Interpretation Code <=1.0 [facility] Comment on above: Order Comment: Relea se to patient->Automatic Result Comment: Veri fied By: [id number] Calcium [Mass/Vol] 8.6 mg/dL Invalid Interpretation Code 7.6-11.0 [facility] Comment on above: Order Comment: Relea se to patient->Automatic Result Comment: Veri fied By: [id number] Chloride [Moles/Vol] 109 mmol/L High 96-108 [facility] Comment on above: Order Comment: Relea se to patient->Automatic Result Comment: Veri fied By: [id number] CO2 [Moles/Vol] 22.7 mmol/L Invalid Interpretation Code 22.0-29.0 [facility] Comment on above: Order Comment: Relea se to patient->Automatic Result Comment: Veri fied By: [id number] Creatinine [Mass/Vol] 0.60 mg/dL Invalid Interpretation Code 0.50-1.00 [facility] Comment on above: Order Comment: Relea se to patient->Automatic Result Comment: Veri fied By: [id number] GFR/1.73 sq M.predicted among non-blacks MDRD (S/P/Bld) [Vol rate/Area] mL/min/{1.73_m2} Invalid Interpretation Code >=60 [facility] Comment on above: Order Comment: Relea se to patient->Automatic Glucose [Mass/Vol] 87 mg/dL Invalid Interpretation Code 70-99 [facility] Comment on above: Order Comment: Relea se to patient->Automatic Result Comment: Cathleen booth for Diagnosis of Diabetes: Fasting Specimen (no caloric intake for at least 8 hours): <100 mg/dL Normal 100-125 mg/dL Increased risk for Diabetes >125 mg/dL Diagnostic for Diabetes Random Glucose (any time of day without regard to last meal): > or = 200 mg/dL plus Classic Symptoms of Diabetes Verified By: [id number] Potassium [Moles/Vol] 3.2 mmol/L Low 3.3-5.1 [facility] Comment on above: Order Comment: Relea se to patient->Automatic Result Comment: Veri fied By: [id number] Protein [Mass/Vol] 6.8 g/dL Invalid Interpretation Code 5.9-8.4 [facility] Comment on above: Order Comment: Relea se to patient->Automatic Result Comment: Veri fied By: [id number] Sodium [Moles/Vol] 140 mmol/L Invalid Interpretation Code 133-145 [facility] Comment on above: Order Comment: Relea se to patient->Automatic Result Comment: Veri fied By: [id number] Urea nitrogen [Mass/Vol] 4 mg/dL Invalid Interpretation Code 4-19 [facility] Comment on above: Order Comment: Relea se to patient->Automatic Result Comment: Veri fied By: [id number] Calcium, ionized WBOrdered B y: Suly Kapadia on 03-08-2024 Calcium.ionized (Bld) [Mass/Vol] 4.39 mg/dL Low 4.60 - 5.28 mg/dL [facility] Interpretation and review of laboratory results Abnormal [facility] pH (Bld) 7.341 [pH] 7.280 - 7.420 [facility] Comprehensive metabolic pane lOrdered By: Background Lab on 03-08-2024 Albumin BCG dye [Mass/Vol] 4 g/dL 3.5 - 5.0 g/dL [facility] Comment on above: Verified By: [id number] ALP [Catalytic activity/Vol] 137 U/L High 35 - 104 U/L [facility] Comment on above: Verified By: [id number] ALT With P-5'-P [Catalytic activity/Vol] 62 U/L High [facility] - 34 U/L [facility] Comment on above: Verified By: [id number] AST With P-5'-P [Catalytic activity/Vol] 27 U/L [facility] - 31 U/L [facility] Comment on above: Verified By: [id number] Bilirubin [Mass/Vol] 0.3 mg/dL [facility] - 1.0 mg/dL [facility] Comment on above: Verified By: [id number] Calcium [Mass/Vol] 8.6 mg/dL 7.6 - 11. 0 mg/dL [facility] Comment on above: Verified By: [id number] Chloride [Moles/Vol] 109 mmol/L High 96 - 10 8 mmol/L [facility] Comment on above: Verified By: [id number] Creatinine [Mass/Vol] 0.6 mg/dL 0.50 - 1.00 mg/dL [facility] Comment on above: Verified By: [id number] eGFR - PINF [facility] Glucose [Mass/Vol] 87 mg/dL 70 - 99 mg/dL [facility] Comment on above: Criteria for Diagnos is of Diabetes: Fasting Specimen (no caloric intake for at least 8 hours): <100 mg/dL Normal 100-125 mg/dL Increased risk for Diabetes >125 mg/dL Diagnostic for Diabetes Random Glucose (any time of day without regard to last meal): > or = 200 mg/dL plus Classic Symptoms of Diabetes Verified By: [id number] HCO3 (P) [Moles/Vol] 22.7 mmol/L 22.0 - 29.0 mmol/L [facility] Comment on above: Verified By: [id number] Potassium (BldA) [Moles/Vol] 3.2 mmol/L Low 3.3 - 5.1 mmol/L [facility] Comment on above: Verified By: [id number] Protein [Mass/Vol] 6.8 g/dL 5.9 - 8.4 g/dL [facility] Comment on above: Verified By: [id number] Sodium [Moles/Vol] 140 mmol/L 133 - 145 mmol/L [facility] Comment on above: Verified By: [id number] Urea nitrogen [Mass/Vol] 4 mg/dL 4 - 19 mg/dL [facility] Comment on above: Verified By: [id number] No Panel InformationOrdered By: Background Lab on 03-08-2024 Interpretation and review of laboratory results Abnormal [facility] Progress Noteon 03-08-2024 [employer] Developer Authentication Interface Message Text Reason for Consult/Chief Concern: Napoleon is here for osteogenesis imperfecta. Primary Care Doctor: Hoda Smith, MANAGER [employer] TELEVIS[employer] TECHNICAL DIRECTOR History of Present Illness (Location, Quality, Severity, Duration, Timing, Context. Modifying Factors, Associated Signs & Symptoms): She was diagnosed with OI as a child based on clinical symptoms and family history. Napoleon has had approximately 10 fractures involving her lower extremities following minimal trauma that are reported to have healed normally, the last occurring at age 11 years. She has been diagnosed with scoliosis. Napoleon's stature is small and she reports difficulty gaining weight. She denies a personal history of hearing loss, but has not had formal screening. She also denies a history of dental concerns. 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 This variant is a single nucleotide deletion resulting in a reading frame shift and the introduction of a premature termination codon downstream. Testing other family members is available through targeted DNA studies using blood or saliva. (04/03/20 [facility] - full report scanned under lab tab). Although testing was never completed for Napoleon, it assumed she shares this mutation. 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 Last hearing examination 1 year ago. She follows with ENT for sinus issues, and neurology for migraines. OI was diagnosed as a child in the setting of fractures and family history. Napoleon has had approximately 10 fractures involving her lower extremities following minimal trauma that are reported to have healed normally, the last occurring at age 11 years. Genetic testing: No Last DEXA scan:Not at this time Last hearing screen: No formal screen. Bisphosphonates:Not at this time. 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 Recommendations: DIAGNOSIS/IMPRESSION: Stable adolescent idiopathic scoliosis with a 30-degree right thoracic curve, osteogenesis imperfecta. DISCUSSION/TREATMENT PLAN: She is nearing skeletal maturity. We do not expect this curve to progress very much. We would, however, like to follow her until she finishes growing. We will bring her back in one more year for a standing PA of the thoracolumbar spine, sooner if she develops any increase in pain, neurologic or urologic symptoms. This treatment plan was discussed and agreed upon with Dr. Escoto, who also personally examined this patient in the office today. Audiology: Has not seen Social History: She reported no exposures to medications, cigarettes, alcohol, drugs, chemicals, or radiation. Lifestyle/Psychosocial Mother's occupation Father's occupation Are mother and father living together? Mother's highest level of education Father's highest level of education Are the parents of the patient related? Nutritional concerns Patient's education level Special education/IEP Family History: Napoleon's identical twin sister has also been diagnosed with OI clinically and experienced her first fracture at about age 10 months. She has also had about 10 fractures to date and has had surgery for scoliosis. She is 4'10 .She has hearing loss with onset in her late teens as well as multiple cavities and root canals. A maternal half sister is described as more mildly affected with blue sclerae, no fractures and a height of 5'2 or 3. Napoleon's mother has been diagnosed with OI and is 5'2 with an unknown number of fractures and hearing loss. Napoleon also reported her MGF, now , was also diagnosed with OI. Napoleon's son, Tito, also has OI with a total of about 3 fractures. He is 5 years old. He was seen in general genetics in 2020 and genetic testing showed a COL1A1 mutation. He was scheduled for OI clinic but not seen. There were no other reported defects, intellectual disabilities, multiple miscarriages or genetic disorders directly relevant to childbearing on either side of the family. Maternal ancestry is reportedly (not otherwise specified) and paternal ancestry is reportedly (not otherwise specified). There is no known consanguinity. Family history taken in separate encounter. No updates. Review of Systems: Constitutional: Negative Vision: Negative ENT: Sinus issues Head and Neck: Negative Endocrine: Negative Hematology/Lymphatic: Negative Respiratory: Negative Cardiovascular: Negative Gastrointestinal: Negative : Nega (more content not included)... Normal [facility] URINE CULTURE [CCL]on 2023 Bacteria identified Cx Nom (U) Normal [facility] Comment on above: Performed By: #### 2 [id number] ####[facility],[address] [place] [address] 07689 VITAMIN D 25 HYDROXY(VITAMIN D DEFICIENCY)on 03-08-2024 25 OH Vitamin D 17 ng/mL Low 30-100 [facility] Comment on above: Order Comment: Relea se to patient->Automatic Result Comment: Refe rence ranges provided by [facility] are based on Endocrine Society Guidelines: Level: Characterization < 21 ng/mL: Vitamin D deficiency 21-29 ng/mL: Suboptimal Vitamin D status 30-100 ng/mL: Optimal Vitamin D status >100 ng/mL: Potentially toxic Vitamin D effects Verified By: [id number] Vitamin D 25 hydroxyon 03-08 Vitamin D+Metabolites [Mass/Vol] 17 ng/mL Low 30 - 100 ng/mL [facility] Comment on above: Reference ranges pro vided by [facility] are based on Endocrine Society Guidelines: Level: Characterization < 21 ng/mL: Vitamin D deficiency 21-29 ng/mL: Suboptimal Vitamin D status 30-100 ng/mL: Optimal Vitamin D status >100 ng/mL: Potentially toxic Vitamin D effects Verified By: [id number] ED MED ADMINISTRATION DETAIL on 03-07-2024 ED MED ADMINISTRATION DETAIL Normal [facility] ED NURSES CLINICAL NOTEon ED NURSES CLINICAL NOTE Normal [facility] ED ORDER SHEET (CPOE ONLY)on 03-07-2024 ED ORDER SHEET (CPOE ONLY) Normal [facility] ED PHYSICIAN CLINICAL REPORT on 03-07-2024 ED PHYSICIAN CLINICAL REPORT Normal [facility] ED PHYSICIAN DISCHARGE REPOR Ton 03-07-2024 ED PHYSICIAN DISCHARGE REPORT Normal [facility] ED SUPER BILLon 03-07-2024 ED SUPER BILL Normal [facility] ED VISIT SUMMARYon ED VISIT SUMMARY Normal [facility] ED VITALS FLOW SHEETon 03-07 ED VITALS FLOW SHEET Normal [facility] Bacteria Ur Culton Bacteria identified Cx Nom (U) ORGANISM ID: 1 <10,000 CFU/ml Normal urogenital sean Normal [facility] Comment on above: Performed By: #### 6 30-4 #### [facility] CLIA [id number] [address] [place] [address] [place] C-REACTIVE PROTEINon 024 CRP 5.58 mg/dl High 0.00 - 0.[address] [facility] Comment on above: Performed By: #### 2 33752 ####[facility],[address] [place] [address] 42391 CRP 3.40 mg/dl High 0.00 - 0.[address] [facility] Comment on above: Performed By: #### 2 68892 ####[facility],[address] [place] [address] CBC + DIFFon 03-06-2024 Baso # 0.02 x10EE3/UL Normal 0.00 - 0.[address] [facility] Comment on above: Performed By: #### 2 20330 ####[facility],[address] [place], [place] [id number] Basophils/100 WBC (Bld) 0.4 % Normal 0.0 - 2.0 [facility] Comment on above: Performed By: #### 2 13517 ####[facility],[address] [place] [address] CBC + DIFF Normal [facility] Comment on above: Result Comment: CBC- COMPLETE BLOOD COUNT Performed By: #### 2 05190 ####[facility],[address] [place] [address] EO # 0.03 x10EE3/UL Normal 0.00 - 0.[address] [facility] Comment on above: Performed By: #### 2 70748 ####[facility],[address] [place] [address] Eosinophils/100 WBC (Bld) 0.5 % Normal 0.0 - 7.[address] [facility] Comment on above: Performed By: #### 2 32623 ####[facility],[address] [place] [address] Erythrocyte distribution width (RBC) [Ratio] 13.1 % Normal 12.0 - 15.[address] [facility] Comment on above: Performed By: #### 2 07802 ####[facility],[address] [place] [address] Hematocrit (Bld) [Volume fraction] 37.0 % Normal 34.0 - 46.[address] [facility] Comment on above: Performed By: #### 2 09827 ####[facility],[address] [place] [address] Hemoglobin (Bld) [Mass/Vol] 12.7 g/dL Normal 12.0 - 16.[address] [facility] Comment on above: Performed By: #### 2 73315 ####[facility],[address] [place] [address] Lymph # 0.49 x10EE3/UL Low 0.80 - 2.[address] [facility] Comment on above: Performed By: #### 2 39621 ####[facility],[address] [place] [address] Lymphocytes/100 WBC (Bld) 7.7 % Low 20.0 - 45.[address] [facility] Comment on above: Performed By: #### 2 42407 ####[facility],[address] [place] [address] MANUAL DIFF N/A Normal [facility] Comment on above: Performed By: #### 2 62552 ####[facility],[address] [place], [place] [id number] MCH (RBC) [Entitic mass] 30 pg Normal 27 - [address] [facility] Comment on above: Performed By: #### 2 73607 ####[facility],[address] [place], [place] [id number] MCHC 34 X10 3 Normal 32 - [address] [facility] Comment on above: Performed By: #### 2 25248 ####[facility],[address] [place], [place] [id number] MCV (RBC) [Entitic vol] 87 fL Normal 80 - 99 [facility] Comment on above: Performed By: #### 2 47582 ####[facility],[address] [place] [address] Mercer # 0.38 x10EE3/UL Normal 0.20 - 1.[address] [facility] Comment on above: Performed By: #### 2 52859 ####[facility],[address] [place] [address] 98527 MONOS % 6.0 % Normal 0.0 - 10.[address] [facility] Comment on above: Performed By: #### 2 85050 ####[facility],[address] [place] [address] 23936 Morphology [place] (Bld) [Interp] N/A Normal [facility] Comment on above: Performed By: #### 2 44718 ####[facility],[address] [place] [address] Neut # 5.42 x10EE3/UL Normal 1.50 - 7.[address] [facility] Comment on above: Performed By: #### 2 58916 ####[facility],[address] [place] [address] Neutrophils/100 WBC (Bld) 85.4 % High 46.0 - 76.[address] [facility] Comment on above: Performed By: #### 2 55454 ####[facility],[address] [place] [address] PLATELET 290 x10EE3/UL Normal 150 - [address] [facility] Comment on above: Performed By: #### 2 76337 ####[facility],[address] [place] [address] Platelet mean volume (Bld) [Entitic vol] 7.4 fL Normal 6.6 - 10.[address] [facility] Comment on above: Result Comment: AUTO MATED DIFFERENTIAL Performed By: #### 2 26739 ####[facility],[address] [place], [place] [id number] RBC 4.27 x 10EE6/UL Normal 4.10 - 5.[address] [facility] Comment on above: Performed By: #### 2 25020 ####[facility],[address] [place] [address] 60543 WBC 6.3 x 10EE3/UL Normal 4.5 - 10.[address] [facility] Comment on above: Performed By: #### 2 93872 ####[facility],[address] [place] [address] 13409 Baso # 0.03 x10EE3/UL Normal 0.00 - 0.[address] [facility] Comment on above: Performed By: #### 2 33329 ####[facility],[address] [place] [address] 11336 Basophils/100 WBC (Bld) 0.2 % Normal 0.0 - 2.0 [facility] Comment on above: Performed By: #### 2 02802 ####[facility],[address] [place] [address] 27637 CBC + DIFF Normal [facility] Comment on above: Result Comment: CBC- COMPLETE BLOOD COUNT Performed By: #### 2 53886 ####[facility],[address] [place] [address] EO # 0.06 x10EE3/UL Normal 0.00 - 0.[address] [facility] Comment on above: Performed By: #### 2 22940 ####[facility],[address] [place] [address] 96032 Eosinophils/100 WBC (Bld) 0.4 % Normal 0.0 - 7.[address] [facility] Comment on above: Performed By: #### 2 11505 ####[facility],[address] [place] [address] 54516 Erythrocyte distribution width (RBC) [Ratio] 13.1 % Normal 12.0 - 15.[address] [facility] Comment on above: Performed By: #### 2 39844 ####[facility],[address] [place] [address] 33514 Hematocrit (Bld) [Volume fraction] 46.8 % High 34.0 - 46.[address] [facility] Comment on above: Performed By: #### 2 93415 ####[facility],[address] [place] [address] 20864 Hemoglobin (Bld) [Mass/Vol] 16.1 g/dL High 12.0 - 16.[address] [facility] Comment on above: Performed By: #### 2 56152 ####[facility],[address] [place] [address] 97869 Lymph # 0.44 x10EE3/UL Low 0.80 - 2.[address] [facility] Comment on above: Performed By: #### 2 98417 ####[facility],[address] [place] [address] Lymphocytes/100 WBC (Bld) 2.8 % Low 20.0 - 45.[address] [facility] Comment on above: Performed By: #### 2 04350 ####[facility],[address] [place], [place] [id number] MANUAL DIFF N/A Normal [facility] Comment on above: Performed By: #### 2 46086 ####[facility],[address] [place] [address] MCH (RBC) [Entitic mass] 30 pg Normal 27 - [address] [facility] Comment on above: Performed By: #### 2 64803 ####[facility],[address] [place] [address] 44025 MCHC 34 X10 3 Normal 32 - [address] [facility] Comment on above: Performed By: #### 2 76587 ####[facility],[address] [place] [address] 44459 MCV (RBC) [Entitic vol] 87 fL Normal 80 - 99 [facility] Comment on above: Performed By: #### 2 00266 ####[facility],[address] [place] [address] 44887 Mercer # 0.28 x10EE3/UL Normal 0.20 - 1.[address] [facility] Comment on above: Performed By: #### 2 00219 ####[facility],[address] [place] [address] 45623 MONOS % 1.8 % Normal 0.0 - 10.[address] [facility] Comment on above: Performed By: #### 2 44318 ####[facility],[address] [place] [address] 25562 Morphology [place] (Bld) [Interp] N/A Normal [facility] Comment on above: Performed By: #### 2 27319 ####[facility],[address] [place] [address] 65874 Neut # 14.68 x10EE3/UL High 1.50 - 7.[address] [facility] Comment on above: Performed By: #### 2 53008 ####[facility],[address] [place] [address] 54720 Neutrophils/100 WBC (Bld) 94.8 % High 46.0 - 76.[address] [facility] Comment on above: Performed By: #### 2 91812 ####[facility],[address] [place] [address] 88144 PLATELET 360 x10EE3/UL Normal 150 - [address] [facility] Comment on above: Performed By: #### 2 36421 ####[facility],[address] [place] [address] 72825 Platelet mean volume (Bld) [Entitic vol] 7.5 fL Normal 6.6 - 10.[address] [facility] Comment on above: Result Comment: AUTO MATED DIFFERENTIAL Performed By: #### 2 98227 ####[facility],[address] [place] [address] 67554 RBC 5.37 x 10EE6/UL High 4.10 - 5.[address] [facility] Comment on above: Performed By: #### 2 51296 ####[facility],[address] [place] [address] 71744 WBC 15.5 x 10EE3/UL High 4.5 - 10.[address] [facility] Comment on above: Performed By: #### 2 28161 ####[facility],[address] [place] [address] 18653 CMP with eGFRon 03-06-2024 AGE 28 years Normal [facility] Comment on above: Performed By: #### 2 85857 ####[facility],[address] [place] [address] 15004 Albumin [Mass/Vol] 3.4 g/dL Normal 3.4 - 5.[address] [facility] Comment on above: Performed By: #### 2 96229 ####[facility],[address] [place], [place] [id number] Albumin/Globulin [Mass ratio] 1.0 {ratio} Normal 0.9 - 1.[address] [facility] Comment on above: Performed By: #### 2 17641 ####[facility],[address] [place], [place] [id number] ALK PHOS 123 U/L High 46 - [address] [facility] Comment on above: Performed By: #### 2 70497 ####[facility],[address] [place], [place] [id number] ALT [Catalytic activity/Vol] 31 U/L Normal 16 - [address] [facility] Comment on above: Performed By: #### 2 94731 ####[facility],[address] [place] [address] 50373 Anion gap [Moles/Vol] 15 mmol/L Normal 10 - 20 [facility] Comment on above: Performed By: #### 2 41626 ####[facility],[address] [place] [address] 61183 AST [Catalytic activity/Vol] 17 U/L Normal 13 - [address] [facility] Comment on above: Performed By: #### 2 06578 ####[facility],[address] [place] [address] 89202 B/C RATIO 14 ratio Normal 0 - [address] [facility] Comment on above: Performed By: #### 2 83354 ####[facility],[address] [place] [address] 11231 Bilirubin [Mass/Vol] 0.8 mg/dL Normal 0.2 - 1.[address] [facility] Comment on above: Performed By: #### 2 92635 ####[facility],[address] [place] [address] Calcium [Mass/Vol] 8.1 mg/dL Low 8.5 - 10.[address] [facility] Comment on above: Performed By: #### 2 50039 ####[facility],[address] [place] [address] Chloride [Moles/Vol] 108 mmol/L High 98 - [address] [facility] Comment on above: Performed By: #### 2 04226 ####[place] [address] CMP with eGFR Normal [facility] Comment on above: Result Comment: COMP REHENSIVE METABOLIC PANEL Performed By: #### 2 29744 ####[place] [address] CO2 [Moles/Vol] 23.3 mmol/L Normal 21.0 - 32.[address] [facility] Comment on above: Performed By: #### 2 07438 ####[place] [address] Creatinine [Mass/Vol] 0.71 mg/dL Normal 0.55 - 1.02 [facility] Comment on above: Performed By: #### 2 54862 ####[place] [address] GFR/1.73 sq M.predicted among non-blacks MDRD (S/P/Bld) [Vol rate/Area] mL/min/{1.73_m2} Normal 60 - [address] [facility] Comment on above: Performed By: #### 2 50192 ####[facility],[address] [place] [address] Result Comment: ACCO RDING TO THE NATIONAL KIDNEY DISEASE EDUCATION PROGRAM(NKDE), A NORMAL eGFRIS A VALUE GREATER THAN OR EQUAL TO 60 ML/MIN/1.73 SQ METERS.CHRONIC KIDNEY DISEASE: <60mL/MIN/1.73 SQ METERSKIDNEY FAILURE: <15mL/MIN/1.73 SQ METERSTHIS TEST SHOULD ONLY BE USED FOR PATIENTS 18 YEARS OF AGE AND OLDER. Globulin (S) [Mass/Vol] 3.3 g/dL Normal 1.5 - 3.8 [facility] Comment on above: Performed By: #### 2 89771 ####[facility],[address] [place] [address] 74571 Glucose [Mass/Vol] 101 mg/dL Normal 74 - [address] [facility] Comment on above: Performed By: #### 2 87260 ####[facility],[address] [place] [address] 26933 Potassium [Moles/Vol] 3.2 mmol/L Low 3.5 - 5.1 [facility] Comment on above: Performed By: #### 2 93366 ####[facility],[address] [place] [address] 34615 Protein [Mass/Vol] 6.7 g/dL Normal 6.4 - 8.[address] [facility] Comment on above: Performed By: #### 2 98698 ####[facility],[address] [place] [address] 75687 Sodium [Moles/Vol] 143 mmol/L Normal 136 - [address] [facility] Comment on above: Performed By: #### 2 02252 ####[facility],[address] [place] [address] 47832 Urea nitrogen [Mass/Vol] 10 mg/dL Normal 7 - [address] [facility] Comment on above: Performed By: #### 2 06325 ####[facility],[address] [place] [address] 92659 AGE 28 years Normal [facility] Comment on above: Performed By: #### 2 02801 ####[facility],[address] [place] [address] 48117 Albumin [Mass/Vol] 4.1 g/dL Normal 3.4 - 5.[address] [facility] Comment on above: Performed By: #### 2 14457 ####[facility],[address] [place] [address] 72176 Albumin/Globulin [Mass ratio] 1.0 {ratio} Normal 0.9 - 1.[address] [facility] Comment on above: Performed By: #### 2 55274 ####[facility],[address] [place] [address] 01554 ALK PHOS 148 U/L High 46 - [address] [facility] Comment on above: Performed By: #### 2 45801 ####[facility],[address] [place] [address] 27486 ALT [Catalytic activity/Vol] 36 U/L Normal 16 - [address] [facility] Comment on above: Performed By: #### 2 31627 ####[facility],[address] [place] [address] 17130 Anion gap [Moles/Vol] 18 mmol/L Normal 10 - 20 [facility] Comment on above: Performed By: #### 2 27800 ####[facility],[address] [place] [address] 18420 AST [Catalytic activity/Vol] 15 U/L Normal 13 - [address] [facility] Comment on above: Performed By: #### 2 44945 ####[facility],[address] [place] [address] 26847 B/C RATIO 18 ratio Normal 0 - [address] [facility] Comment on above: Performed By: #### 2 68910 ####[facility],[address] [place] [address] 43878 Bilirubin [Mass/Vol] 0.9 mg/dL Normal 0.2 - 1.[address] [facility] Comment on above: Performed By: #### 2 08954 ####[facility],[address] [place] [address] 43032 Calcium [Mass/Vol] 8.6 mg/dL Normal 8.5 - 10.[address] [facility] Comment on above: Performed By: #### 2 53153 ####[facility],[address] [place], [place] [phone] Chloride [Moles/Vol] 104 mmol/L Normal 98 - [address] [facility] Comment on above: Performed By: #### 2 22811 ####[facility],[address] [place], [place] [phone] CMP with eGFR Normal [facility] Comment on above: Result Comment: COMP REHENSIVE METABOLIC PANEL Performed By: #### 2 00014 ####[facility],[address] [place] [address] CO2 [Moles/Vol] 19.1 mmol/L Low 21.0 - 32.[address] [facility] Comment on above: Performed By: #### 2 48027 ####[facility],[address] [place], [place] [id number] Creatinine [Mass/Vol] 0.91 mg/dL Normal 0.55 - 1.02 [facility] Comment on above: Performed By: #### 2 13506 ####[facility],[address] [place], [place] [id number] GFR/1.73 sq M.predicted among non-blacks MDRD (S/P/Bld) [Vol rate/Area] mL/min/{1.73_m2} Normal 60 - [address] [facility] Comment on above: Performed By: #### 2 04605 ####[facility],[address] [place] [address] Result Comment: ACCO RDING TO THE NATIONAL KIDNEY DISEASE EDUCATION PROGRAM(NKDE), A NORMAL eGFRIS A VALUE GREATER THAN OR EQUAL TO 60 ML/MIN/1.73 SQ METERS.CHRONIC KIDNEY DISEASE: <60mL/MIN/1.73 SQ METERSKIDNEY FAILURE: <15mL/MIN/1.73 SQ METERSTHIS TEST SHOULD ONLY BE USED FOR PATIENTS 18 YEARS OF AGE AND OLDER. Globulin (S) [Mass/Vol] 4.0 g/dL High 1.5 - 3.8 [facility] Comment on above: Performed By: #### 2 25006 ####[facility],[address] [place] [address] 24846 Glucose [Mass/Vol] 161 mg/dL High 74 - [address] [facility] Comment on above: Performed By: #### 2 47042 ####[facility],[address] [place] [address] 81553 Potassium [Moles/Vol] 3.1 mmol/L Low 3.5 - 5.1 [facility] Comment on above: Performed By: #### 2 27959 ####[facility],[address] [place] [address] 39672 Protein [Mass/Vol] 8.1 g/dL Normal 6.4 - 8.[address] [facility] Comment on above: Performed By: #### 2 04266 ####[facility],[address] [place] [address] 97289 Sodium [Moles/Vol] 138 mmol/L Normal 136 - [address] [facility] Comment on above: Performed By: #### 2 14024 ####[facility],[address] [place] [address] 98810 Urea nitrogen [Mass/Vol] 16 mg/dL Normal 7 - [address] [facility] Comment on above: Performed By: #### 2 96984 ####[facility],[address] [place] [address] ABDOMEN/PELVIS Won 2023 CT ABDOMEN/PELVIS W Normal [facility] LACTATEon 03-06-2024 Lactate [Moles/Vol] 1.4 mmol/L Normal 0.4 - 2.[address] [facility] Comment on above: Performed By: #### 2 35299 ####[facility],[address] [place] [address] 36817 LIPASEon 03-06-2024 Lipase [Catalytic activity/Vol] 21.0 U/L Normal 15.0 - 78.[address] [facility] Comment on above: Result Comment: *PLE ASE NOTE THAT RANGES FOR LIPASE HAVE CHANGED OF 03/20/23 DUE TO AN ASSAYUPDATE BY THE ALTERNATIVE MEDICINE PRACTITIONER.THE NEW ASSAY RANGE IS 6-250 U/L, WITH A REFERENCERANGE OF 16-77 U/L. Performed By: #### 2 22328 ####[facility],[address] [place] [address] SERUM QUALon 03-06 EXTERNAL QC DONE? YES Normal [facility] Comment on above: Performed By: #### 2 18746 ####[facility],[address] [place] [address] INTERNAL QC PASS Normal [facility] Comment on above: Performed By: #### 2 73872 ####[facility],[address] [place] [address] SER Negative Normal NEGATIVE [facility] Comment on above: Performed By: #### 2 97450 ####[facility],[address] [place] [address] URINALYSISon 03-06-2024 Amorphous 1+ Normal [facility] Comment on above: Performed By: #### 2 28346 ####[facility],[address] [place] [address] Bacteria 2+ Normal [facility] Comment on above: Performed By: #### 2 78123 ####[facility],[address] [place] [address] Bilirubin Ql (U) Negative Normal NORMAL: NEGATIVE [facility] Comment on above: Performed By: #### 2 21226 ####[facility],[address] [place] [address] 56167 Casts NONE Normal [facility] Comment on above: Performed By: #### 2 96556 ####[facility],[address] [place] [address] Clarity (U) clear Normal NORMAL: CLEAR [facility] Comment on above: Performed By: #### 2 42737 ####[facility],[address] [place], [place] [id number] Color (U) aby Normal NORMAL: YELLOW [facility] Comment on above: Performed By: #### 2 50743 ####[facility],[address] [place] [address] Crystals LM Nom (Urine sed) NONE Normal [facility] Comment on above: Performed By: #### 2 27081 ####[facility],[address] [place] [address] Epi Cells MODERATE Normal [facility] [facility] Comment on above: Performed By: #### 2 36587 ####[facility],[address] [place] [address] Glucose Ql (U) NORM Normal NORMAL: NORMAL [facility] Comment on above: Performed By: #### 2 40122 ####[facility],[address] [place] [address] 25089 Hemoglobin Ql (U) 250 Abnormal NORMAL: NEGATIVE [facility] Comment on above: Performed By: #### 2 81792 ####[facility],[address] [place] [address] 73080 Ketone Negative Normal NORMAL: NEGATIVE [facility] Comment on above: Performed By: #### 2 41485 ####[facility],[address] [place] [address] 86763 Leukocytes Negative Normal NORMAL: NEGATIVE [facility] Comment on above: Performed By: #### 2 78033 ####[facility],[address] [place] [address] 45655 Mucous 1+ Normal [facility] Comment on above: Performed By: #### 2 24251 ####[facility],[address] [place] [address] 33183 Nitrite Ql (U) Negative Normal NORMAL: NEGATIVE [facility] Comment on above: Performed By: #### 2 57748 ####[facility],[address] [place] [address] pH (U) 6 [pH] Normal NORMAL: 5.0-8.[address] [facility] Comment on above: Performed By: #### 2 44461 ####[facility],[address] [place] [address] Protein Ql (U) 30 Abnormal NORMAL: NEGATIVE [facility] Comment on above: Performed By: #### 2 29478 ####[facility],[address] [place] [address] Rbc 5-10 Normal 0-3/hpf [facility] Comment on above: Performed By: #### 2 96846 ####[facility],[address] [place] [address] Sp Lodi 1.025 Normal NORMAL: 1.010-1.[address] [facility] Comment on above: Performed By: #### 2 37678 ####[facility],[address] [place] [address] Specimen Type UNSPECIFIED Normal [facility] Comment on above: Performed By: #### 2 40361 ####[facility],[address] [place] [address] Urinalysis dipstick W Reflex Microscopic panel (U) SEE BELOW Normal [facility] Comment on above: Result Comment: MICR OSCOPIC Performed By: #### 2 63535 ####[facility],[address] [place], [place] [id number] Urobilinog NORM Normal NORMAL: NORMAL [facility] Comment on above: Performed By: #### 2 17538 ####[facility],[address] [place], [place] [id number] Wbc 1-5 Normal 0-5/hpf [facility] Comment on above: Performed By: #### 2 71300 ####[facility],[address] [place] [address] 06343 Yeast NONE Normal [facility] Comment on above: Performed By: #### 2 09764 ####[facility],[address] [place] [address] 32916 Bilirubin Ql (U) Negative Normal NORMAL: NEGATIVE [facility] Comment on above: Performed By: #### 2 49287 ####[facility],[address] [place] [address] 60629 Clarity (U) sl.cloudy Normal NORMAL: CLEAR [facility] Comment on above: Performed By: #### 2 77868 ####[facility],[address] [place] [address] 51320 Color (U) yellow Normal NORMAL: YELLOW [facility] Comment on above: Performed By: #### 2 26505 ####[facility],[address] [place] [address] 37884 Glucose Ql (U) NORM Normal NORMAL: NORMAL [facility] Comment on above: Performed By: #### 2 64653 ####[facility],[address] [place] [address] 40085 Hemoglobin Ql (U) Negative Normal NORMAL: NEGATIVE [facility] Comment on above: Performed By: #### 2 01449 ####[facility],[address] [place] [address] 19709 Ketone Negative Normal NORMAL: NEGATIVE [facility] Comment on above: Performed By: #### 2 15806 ####[facility],[address] [place] [address] 67872 Leukocytes Negative Normal NORMAL: NEGATIVE [facility] Comment on above: Performed By: #### 2 91020 ####[facility],[address] [place] [address] 90997 Nitrite Ql (U) Negative Normal NORMAL: NEGATIVE [facility] Comment on above: Performed By: #### 2 96544 ####[facility],[address] [place] [address] 22532 pH (U) 5 [pH] Normal NORMAL: 5.0-8.[address] [facility] Comment on above: Performed By: #### 2 81015 ####[facility],[address] [place] [address] Protein Ql (U) 30 Abnormal NORMAL: NEGATIVE [facility] Comment on above: Performed By: #### 2 16135 ####[facility],[address] [place] [address] Sp Lodi 1.010 Normal NORMAL: 1.010-1.[address] [facility] Comment on above: Performed By: #### 2 43941 ####[facility],[address] [place] [address] Specimen Type R Normal [facility] Comment on above: Performed By: #### 2 82998 ####[facility],[address] [place] [address] Urinalysis dipstick W Reflex Microscopic panel (U) NOT INDICATED Normal [facility] Comment on above: Performed By: #### 2 47206 ####[facility],[address] [place] [address] Urobilinog NORM Normal NORMAL: NORMAL [facility] Comment on above: Performed By: #### 2 39610 ####[facility],[address] [place] [address] Neurology Visit Reporton Neurology Visit Report Normal [facility] Breast Limited Unilateralon 02-16-2024 Breast Limited Unilateral Normal [facility] DIAG MAMM W/CAD, BILATon DIAG MAMM W/CAD, BILAT Normal [facility] Genital Culture Comprehensiv anatoliy 02-13-2024 VAC Reason for Exam: yea st infection Normal vaginal sean isolated. No yeast, Gardnerella, Neisseria or beta-hemolytic Streptococcus isolated. Normal [facility] Comment on above: Performed By: #### M 100.2000, M100.3200 ####[facility] [address] [place], [place], [address] Genital cultureOrdered By: Anup Garcia on 02-10-2024 Genital Culture [facility] Genital Culture [facility] Gram Stainon 02-10-2024 GS Reason for Exam: yea st infection Gram Stain 4+ Gram positive rods No White Blood Cells No Gram negative diplococci Score = 0 Interpretation: 0-3 Normal, 4-6 Intermediate, 7-10 Positive BV Normal [facility] Comment on above: Performed By: #### M 100.2000, M100.3200 ####[facility] [address] [place], [place], [address] Gram stainOrdered By: Portia Garcia on 02-10-2024 Microscopic observation Gram stain Nom (Unsp spec) [facility] Microscopic observation Gram stain Nom (Unsp spec) [facility] Laboratory - Chemistry and C hemistry - challengeon 02-10-2024 Bilirubin Ql (U) Negative [facility] Glucose Ql (U) Negative [facility] Ketones Ql (U) Negative [facility] Specific gravity (U) [Rel density] 1.020 [facility] Urobilinogen (U) [Mass/Vol] Negative [facility] Laboratory - Hematology and Cell countson 02-10-2024 Hemoglobin Ql (U) Negative [facility] Laboratory - Specimen inform ationon 02-10-2024 Clarity (U) Clear [facility] Color (U) Colorless [facility] Laboratory - Urinalysison Nitrite Ql (U) Negative [facility] Protein Ql (U) Negative [facility] No Panel Informationon 02-09 Urine Leukocytes Negatve [facility] Urine Non-Hemolyzed Blood Negative [facility] [employer] Office Visit Reporton 02-10-2024 [employer] Attendant Office Visit Report Normal [facility] [employer] Attendant Office Visit Reporton 01-28-2024 Gas Pump Attendant Office Visit Report Normal [facility] VAGINAL PATHOGEN DNA DIRECT PROBES[LISA]on 01-25-2024 VAGINAL PATHOGEN DNA DIRECT PROBES[LISA] Normal [facility] Comment on above: Result Comment: _VAG INAL PATHOGENS DNA DIRECT PROBES [CCL]_ SEE SEPARATE REPORT Performed By: #### 2 09880 ####[facility],[address] [place] [address] 60016 URINE CULTURE [CCL]on 2023 Bacteria identified Cx Nom (U) Normal [facility] Comment on above: Performed By: #### 2 16081 ####[facility],[address] [place] [address] 20662 Bacteria Ur Culton Bacteria identified Cx Nom (U) ORGANISM ID: 1 10,000 -<50,000 CFU/ml Normal urogenital sean Normal [facility] Comment on above: Performed By: #### 6 30-4 #### [facility] CLIA [id number] [address] [place] [address] URINALYSISon 01-21-2024 Bilirubin Ql (U) Negative Normal NORMAL: NEGATIVE [facility] Comment on above: Performed By: #### 2 16945 ####[facility],[address] [place] [address] 63463 Clarity (U) clear Normal NORMAL: CLEAR [facility] Comment on above: Performed By: #### 2 66441 ####[facility],[address] [place] [address] 87697 Color (U) p.yel Normal NORMAL: YELLOW [facility] Comment on above: Performed By: #### 2 15485 ####[facility],[address] [place] [address] 70027 Glucose Ql (U) NORM Normal NORMAL: NORMAL [facility] Comment on above: Performed By: #### 2 50027 ####[facility],[address] [place] [address] 34255 Hemoglobin Ql (U) Negative Normal NORMAL: NEGATIVE [facility] Comment on above: Performed By: #### 2 24830 ####[facility],[address] [place] [address] 85849 Ketone Negative Normal NORMAL: NEGATIVE [facility] Comment on above: Performed By: #### 2 57298 ####[facility],[address] [place] [address] 62761 Leukocytes Negative Normal NORMAL: NEGATIVE [facility] Comment on above: Performed By: #### 2 31811 ####[facility],[address] [place] [address] 54535 Nitrite Ql (U) Negative Normal NORMAL: NEGATIVE [facility] Comment on above: Performed By: #### 2 33925 ####[facility],[address] [place] [address] 57904 pH (U) 6 [pH] Normal NORMAL: 5.0-8.[address] [facility] Comment on above: Performed By: #### 2 02548 ####[facility],[address] [place] [address] 94259 Protein Ql (U) Negative Normal NORMAL: NEGATIVE [facility] Comment on above: Performed By: #### 2 71762 ####[facility],[address] [place] [address] 88707 Sp Lodi 1.015 Normal NORMAL: 1.010-1.[address] [facility] Comment on above: Performed By: #### 2 93384 ####[facility],[address] [place] [address] 57276 Specimen Type R Normal [facility] Comment on above: Performed By: #### 2 85055 ####[facility],[address] [place] [address] 41693 Urinalysis dipstick W Reflex Microscopic panel (U) NOT INDICATED Normal [facility] Comment on above: Performed By: #### 2 44246 ####[facility],[address] [place] [address] 64330 Urobilinog NORM Normal NORMAL: NORMAL [facility] Comment on above: Performed By: #### 2 79303 ####[facility],[address] [place] [address] 18858 Neurology Visit Reporton Neurology Visit Report Normal [facility] Pelvic w/ Transvaginalon Pelvic w/ Transvaginal Normal [facility] VAGINAL PATHOGEN DNA DIRECT PROBES[LISA]on 11-22-2023 VAGINAL PATHOGEN DNA DIRECT PROBES[LISA] Normal [facility] Comment on above: Result Comment: _VAG INAL PATHOGENS DNA DIRECT PROBES [CCL]_ SEE SEPARATE REPORT Performed By: #### 2 86724 ####[facility],[address] [place] [address] 08889 URINE CULTURE [CCL]on 2023 Bacteria identified Cx Nom (U) Normal [facility] Comment on above: Performed By: #### 2 46178 ####[facility],[address] [place] [address] 97707 Urine Cultureon 11-12-2023 URC Normal [facility] Comment on above: Performed By: #### M 100.2200 ####[facility] [address] [place], [address] Bacteria Ur Culton Bacteria identified Cx Nom (U) ORGANISM ID: 1 >=100,000 CFU/ml Escherichia coli ORGANISM ID: 1 (ESCHERICHIA COLI) ANTIBIOTIC INTERPRETATION KELI STATUS REFERENCE RANGE Ampicillin S <=2 F Susceptible <=8 , Intermediate >8 , Resistant >16 Cefazolin S <=4 F Susceptible 0-16 , Intermediate <0 or >16 , Resistant >16 For uncomplicated urinary tract infections, cefazolin results can be used to predict susceptibility or resistance to cephalexin. Ceftriaxone S <=1 F Susceptible <=1 , Intermediate >1 , Resistant >=4 Cefepime S <=1 F Susceptible <=2 , Susceptible-Dose Dependent >2 , Resistant >=16 Ertapenem S <=0.5 F Susceptible <=0.5 , Intermediate >.5 , Resistant >1 Meropenem S <=0.25 F Susceptible <=1 , Intermediate >1 , Resistant >2 Ampicillin/Sulbact S <=2 F Susceptible <=8 , Intermediate >8 , Resistant >16 Piperacillin/Tazobac S <=4 F Susceptible <16 , Susceptible-Dose Dependent >=16 , Resistant >=32 Gentamicin S <=1 F Susceptible <=2 , Intermediate >2 , Resistant >=8 Tobramycin S <=1 F Susceptible <4 , Intermediate >=4 , Resistant >=8 Trimeth sulfameth S <=20 F Susceptible <=40 , Resistant >40 Ciprofloxacin S <=0.25 F Susceptible <0.5 , Intermediate >=.5 , Resistant >=1 Nitrofurantoin S <=16 F Susceptible <=32 , Intermediate >32 , Resistant >64 Abnormal [facility] Comment on above: Performed By: #### 6 30-4 #### [facility] CLIA [id number] [address] [place] [address] [place] Urine Cultureon 11-11-2023 [facility]RC #1 Below infection level. 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 Submit a new specimen if indicated. Normal [facility] Comment on above: Performed By: #### M 100.2200, L500.4050, L100.0100 ####[facility] [address] [place], [address] ABDOMEN 2 VIEWSon 11-10-2023 ABDOMEN 2 VIEWS Normal [facility] CBC W/Diff, Automatedon 08-2 0-2024 Absolute Lymph 1.02 X10 3/uL Normal 0.83-4.51 [facility] Comment on above: Performed By: #### M 100.2200, L500.4050, L100.0100 ####[facility] [address] [place], [address] Absolute Neut 3.7 X10 3/uL Normal 2.0-7.7 [facility] Comment on above: Performed By: #### M 100.2200, L500.4050, L100.0100 ####[facility] [address] [place], [address] Basophils/100 WBC (Bld) 0.9 % Normal 0-1 [facility] Comment on above: Performed By: #### M 100.2200, L500.4050, L100.0100 ####[facility] [address] [place], [address] Eosinophils/100 WBC (Bld) 2.6 % Normal 0-5 [facility] Comment on above: Performed By: #### M 100.2200, L500.4050, L100.0100 ####[facility] [address] [place], [address] Erythrocyte distribution width (RBC) [Ratio] 11.9 % Normal 11.6-14.6 [facility] Comment on above: Performed By: #### M 100.2200, L500.4050, L100.0100 ####[facility] [address] [place], [address] Hematocrit (Bld) [Volume fraction] 41.5 % Normal 37-47 [facility] Comment on above: Performed By: #### M 100.2200, L500.4050, L100.0100 ####[facility] [address] [place], [address] Hemoglobin (Bld) [Mass/Vol] 13.7 g/dL Normal 12.0-15.0 [facility] Comment on above: Performed By: #### M 100.2200, L500.4050, L100.0100 ####[facility] [address] [place], [address] IG% 0.200 Normal 0.0-0.9 [facility] Comment on above: Result Comment: IG% - Immature Granulocytes (promyelocytes, myelocytes andmetamyelocytes) > 1% indicates that a LEFT SHIFT is Present. Performed By: #### M 100.2200, L500.4050, L100.0100 ####[facility] [address] [place], [address] Lymphocytes/100 WBC (Bld) 17.7 % Low 19-41 [facility] Comment on above: Performed By: #### M 100.2200, L500.4050, L100.0100 ####[facility] [address] [place], [address] MCH (RBC) [Entitic mass] 29.7 pg Normal 27.0-32.0 [facility] Comment on above: Performed By: #### M 100.2200, L500.4050, L100.0100 ####[facility] [address] [place], [address] MCHC (RBC) [Mass/Vol] 33.0 g/dL Normal 32-36 [facility] Comment on above: Performed By: #### M 100.2200, L500.4050, L100.0100 ####[facility] [address] [place], [address] MCV (RBC) [Entitic vol] 90.0 fL Normal 81-99 [facility] Comment on above: Performed By: #### M 100.2200, L500.4050, L100.0100 ####[facility] [address] [place], [address] Monocytes/100 WBC (Bld) 13.6 % High 0-10 [facility] Comment on above: Performed By: #### M 100.2200, L500.4050, L100.0100 ####[facility] [address] [place], [address] Neutrophils/100 WBC (Bld) 65.0 % Normal 47-70 [facility] Comment on above: Performed By: #### M 100.2200, L500.4050, L100.0100 ####[facility] [address], [address] Nucleated RBC (Bld) [#/Vol] 0 10*3/uL Normal 0-5 [facility] Comment on above: Performed By: #### M 100.2200, L500.4050, L100.0100 ####[facility] [address] [place], [address] Platelet mean volume (Bld) [Entitic vol] 10.1 fL Normal 6.2-12.0 [facility] Comment on above: Performed By: #### M 100.2200, L500.4050, L100.0100 ####[facility] [address] [place], [address] Platelets (Bld) [#/Vol] 286 10*3/uL Normal 150-450 [facility] Comment on above: Performed By: #### M 100.2200, L500.4050, L100.0100 ####[facility] [address] [place], [address] RBC (Bld) [#/Vol] 4.61 10*6/uL Normal 4.2-5.4 [facility] Comment on above: Performed By: #### M 100.2200, L500.4050, L100.0100 ####[facility] [address] [place], [address] RDW SD 38.9 fl Normal 35.1-43.9 [facility] Comment on above: Performed By: #### M 100.2200, L500.4050, L100.0100 ####[facility] [address] [place], [address] WBC (Bld) [#/Vol] 5.8 10*3/uL Normal 4.4-11.0 [facility] Comment on above: Performed By: #### M 100.2200, L500.4050, L100.0100 ####[facility] [address] [place], [address] Comprehensive Metabolic Prof [facility] 11-10-2023 Albumin [Mass/Vol] 4.0 g/dL Normal 3.2-5.0 [facility] Comment on above: Performed By: #### M 100.2200, L500.4050, L100.0100 ####[facility] [address] [place], [address] Albumin/Globulin [Mass ratio] 1.1 {ratio} Normal 0.9-2.4 [facility] Comment on above: Performed By: #### M 100.2200, L500.4050, L100.0100 ####[facility] [address] [place], [address] ALK P 128 U/L High 45-117 [facility] Comment on above: Performed By: #### M 100.2200, L500.4050, L100.0100 ####[facility] [address] [place], [address] ALT [Catalytic activity/Vol] 77 U/L High 13-56 [facility] Comment on above: Performed By: #### M 100.2200, L500.4050, L100.0100 ####[facility] [address] [place], [address] AST [Catalytic activity/Vol] 45 U/L High 15-37 [facility] Comment on above: Performed By: #### M 100.2200, L500.4050, L100.0100 ####[facility] [address] [place], [address] Bilirubin [Mass/Vol] 0.70 mg/dL Normal 0.20-1.00 [facility] Comment on above: Result Comment: For patients on eltrombopag therapy, use of Dimension [place] TBIL is not recommended. Performed By: #### M 100.2200, L500.4050, L100.0100 ####[facility] [address] [place], [address] BUN/CRE 21.4 RATIO High 10-20 [facility] Comment on above: Performed By: #### M 100.2200, L500.4050, L100.0100 ####[facility] [address] [place], [address] CA,Total 9.0 mg/dL Normal 8.5-10.1 [facility] Comment on above: Performed By: #### M 100.2200, L500.4050, L100.0100 ####[facility] [address] [place], [address] Chloride [Moles/Vol] 110 mmol/L High 98-107 [facility] Comment on above: Performed By: #### M 100.2200, L500.4050, L100.0100 ####[facility] [address] [place], [address] CO2 [Moles/Vol] 28.0 mmol/L Normal 21.0-32.0 [facility] Comment on above: Performed By: #### M 100.2200, L500.4050, L100.0100 ####[facility] [address] [place], [address] Creatinine [Mass/Vol] 0.80 mg/dL Normal 0.55-1.02 [facility] Comment on above: Result Comment: The validity of the calculated GFR GFRAA in patients over70 years has not been determined. Clinical correlation isessential. Performed By: #### M 100.2200, L500.4050, L100.0100 ####[facility] [address] [place], [address] EST GFR - AA 111 mL/min Normal >60 [facility] Comment on above: Result Comment: Afri can [place] GFR Calc Performed By: #### M 100.2200, L500.4050, L100.0100 ####[facility] [address] [place], [address] GAP 3 Low 5-15 [facility] Comment on above: Performed By: #### M 100.2200, L500.4050, L100.0100 ####[facility] [address] [place], [address] GFR/1.73 sq M.predicted among non-blacks MDRD (S/P/Bld) [Vol rate/Area] 92 mL/min/{1.73_m2} Normal >60 [facility] Comment on above: Result Comment: Non- GFR Calc Performed By: #### M 100.2200, L500.4050, L100.0100 ####[facility] [address] [place], [address] Globulin (S) [Mass/Vol] 3.5 g/dL Normal 2.2-4.2 [facility] Comment on above: Performed By: #### M 100.2200, L500.4050, L100.0100 ####[facility] [address] [place], [address] Glucose [Mass/Vol] 95 mg/dL Normal 74-106 [facility] Comment on above: Performed By: #### M 100.2200, L500.4050, L100.0100 ####[facility] [address] [place], [place], [address] Potassium [Moles/Vol] 3.9 mmol/L Normal 3.5-5.1 [facility] Comment on above: Performed By: #### M 100.2200, L500.4050, L100.0100 ####[facility] [address] [place], [address] Sodium [Moles/Vol] 141 mmol/L Normal 136-145 [facility] Comment on above: Performed By: #### M 100.2200, L500.4050, L100.0100 ####[facility] [address] [place], [address] T PROT 7.5 g/dL Normal 6.4-8.2 [facility] Comment on above: Performed By: #### M 100.2200, L500.4050, L100.0100 ####[facility] [address] [place], [address] Urea nitrogen [Mass/Vol] 17 mg/dL Normal 7-18 [facility] Comment on above: Performed By: #### M 100.2200, L500.4050, L100.0100 ####[facility] [address] [place], [address] Gas Pump Attendant Office Visit Reporton 11-10-2023 Gas Pump Attendant Office Visit Report Normal [facility] Gas Pump Attendant Office Visit Reporton 11-02-2023 Gas Pump Attendant Office Visit Report Normal [facility] Gas Pump Attendant Office Visit Reporton 10-14-2023 Gas Pump Attendant Office Visit Report Normal [facility] Bedside Glucoseon 10-02-2023 FINGERSTICK GLU 103 mg/dL Normal 74-106 [facility] Comment on above: Result Comment: SANGITA RODRIGUEZ OF PATIENT CARE PER NURSING PROTOCOL Performed By: #### L 501.080 ####[facility] [address] [place], [address] CBC W/Diff, Automatedon - Absolute Lymph 0.88 X10 3/uL Normal 0.83-4.51 [facility] Comment on above: Performed By: #### L 100.0100, L500.4050 ####[facility] [address] [place], [address] Absolute Neut 6.7 X10 3/uL Normal 2.0-7.7 [facility] Comment on above: Performed By: #### L 100.0100, L500.4050 ####[facility] [address] [place], [address] Basophils/100 WBC (Bld) 0.6 % Normal 0-1 [facility] Comment on above: Performed By: #### L 100.0100, L500.4050 ####[facility] [address] [place], [address] Eosinophils/100 WBC (Bld) 1.8 % Normal 0-5 [facility] Comment on above: Performed By: #### L 100.0100, L500.4050 ####[facility] [address] [place], [address] Erythrocyte distribution width (RBC) [Ratio] 13.5 % Normal 11.6-14.6 [facility] Comment on above: Performed By: #### L 100.0100, L500.4050 ####[facility] [address] [place], [address] Hematocrit (Bld) [Volume fraction] 27.8 % Low 37-47 [facility] Comment on above: Performed By: #### L 100.0100, L500.4050 ####[facility] [address] [place], [address] Hemoglobin (Bld) [Mass/Vol] 9.5 g/dL Low 12.0-15.0 [facility] Comment on above: Performed By: #### L 100.0100, L500.4050 ####[facility] [address] [place], [address] IG% 1.700 High 0.0-0.9 [facility] Comment on above: Result Comment: IG% - Immature Granulocytes (promyelocytes, myelocytes andmetamyelocytes) > 1% indicates that a LEFT SHIFT is Present. Performed By: #### L 100.0100, L500.4050 ####[facility] [address] [place], [address] Lymphocytes/100 WBC (Bld) 10.5 % Low 19-41 [facility] Comment on above: Performed By: #### L 100.0100, L500.4050 ####[facility] [address] [place], [address] MCH (RBC) [Entitic mass] 30.7 pg Normal 27.0-32.0 [facility] Comment on above: Performed By: #### L 100.0100, L500.4050 ####[facility] [address] [place], [address] MCHC (RBC) [Mass/Vol] 34.2 g/dL Normal 32-36 [facility] Comment on above: Performed By: #### L 100.0100, L500.4050 ####[facility] [address] [place], [address] MCV (RBC) [Entitic vol] 90.0 fL Normal 81-99 [facility] Comment on above: Performed By: #### L 100.0100, L500.4050 ####[facility] [address] [place], [address] Monocytes/100 WBC (Bld) 5.3 % Normal 0-10 [facility] Comment on above: Performed By: #### L 100.0100, L500.4050 ####[facility] [address] [place], [address] Neutrophils/100 WBC (Bld) 80.1 % High 47-70 [facility] Comment on above: Performed By: #### L 100.0100, L500.4050 ####[facility] [address] [place], [address] Nucleated RBC (Bld) [#/Vol] 0 10*3/uL Normal 0-5 [facility] Comment on above: Performed By: #### L 100.0100, L500.4050 ####[facility] [address] [place], [address] Platelet mean volume (Bld) [Entitic vol] 9.1 fL Normal 6.2-12.0 [facility] Comment on above: Performed By: #### L 100.0100, L500.4050 ####[facility] [address] [place], [address] Platelets (Bld) [#/Vol] 274 10*3/uL Normal 150-450 [facility] Comment on above: Performed By: #### L 100.0100, L500.4050 ####[facility] [address] [place], [address] RBC (Bld) [#/Vol] 3.09 10*6/uL Low 4.2-5.4 [facility] Comment on above: Performed By: #### L 100.0100, L500.4050 ####[facility] [address] [place], [address] RDW SD 43.9 fl Normal 35.1-43.9 [facility] Comment on above: Performed By: #### L 100.0100, L500.4050 ####[facility] [address] [place], [address] WBC (Bld) [#/Vol] 8.4 10*3/uL Normal 4.4-11.0 [facility] Comment on above: Performed By: #### L 100.0100, L500.4050 ####[facility] [address] [place], [address] Comprehensive Metabolic Prof [facility] 10-02-2023 Albumin [Mass/Vol] 2.2 g/dL Low 3.2-5.0 [facility] Comment on above: Performed By: #### L 100.0100, L500.4050 ####[facility] [address] [place], [address] Albumin/Globulin [Mass ratio] 0.6 {ratio} Low 0.9-2.4 [facility] Comment on above: Performed By: #### L 100.0100, L500.4050 ####[facility] [address] [place], [address] ALK P 158 U/L High 45-117 [facility] Comment on above: Performed By: #### L 100.0100, L500.4050 ####[facility] [address] [place], [address] ALT [Catalytic activity/Vol] 33 U/L Normal 13-56 [facility] Comment on above: Performed By: #### L 100.0100, L500.4050 ####[facility] [address] [place], [address] AST [Catalytic activity/Vol] 28 U/L Normal 15-37 [facility] Comment on above: Performed By: #### L 100.0100, L500.4050 ####[facility] [address] [place], [address] Bilirubin [Mass/Vol] 0.20 mg/dL Normal 0.20-1.00 [facility] Comment on above: Result Comment: For patients on eltrombopag therapy, use of Dimension [place] TBIL is not recommended. Performed By: #### L 100.0100, L500.4050 ####[facility] [address] [place], [address] BUN/CRE 19.4 RATIO Normal 10-20 [facility] Comment on above: Performed By: #### L 100.0100, L500.4050 ####[facility] [address] [place], [address] CA,Total 8.0 mg/dL Low 8.5-10.1 [facility] Comment on above: Performed By: #### L 100.0100, L500.4050 ####[facility] [address] [place], [address] Chloride [Moles/Vol] 112 mmol/L High 98-107 [facility] Comment on above: Performed By: #### L 100.0100, L500.4050 ####[facility] [address] [place], [address] CO2 [Moles/Vol] 23.0 mmol/L Normal 21.0-32.0 [facility] Comment on above: Performed By: #### L 100.0100, L500.4050 ####[facility] [address] [place], [address] Creatinine [Mass/Vol] 0.36 mg/dL Low 0.55-1.02 [facility] Comment on above: Result Comment: The validity of the calculated GFR GFRAA in patients over70 years has not been determined. Clinical correlation isessential. Performed By: #### L 100.0100, L500.4050 ####[facility] [address] [place], [address] ECRCL 214.12 ml/min Normal [facility] Comment on above: Performed By: #### L 100.0100, L500.4050 ####[facility] [address] [place], [address] EST GFR - AA 278 mL/min Normal >60 [facility] Comment on above: Result Comment: Afri can Moroccan GFR Calc Performed By: #### L 100.0100, L500.4050 ####[facility] [address] [place], [address] GAP 7 Normal 5-15 [facility] Comment on above: Performed By: #### L 100.0100, L500.4050 ####[facility] [address] [place], [address] GFR/1.73 sq M.predicted among non-blacks MDRD (S/P/Bld) [Vol rate/Area] 229 mL/min/{1.73_m2} Normal >60 [facility] Comment on above: Result Comment: Non- GFR Calc Performed By: #### L 100.0100, L500.4050 ####[facility] [address] [place], [address] Globulin (S) [Mass/Vol] 3.4 g/dL Normal 2.2-4.2 [facility] Comment on above: Performed By: #### L 100.0100, L500.4050 ####[facility] [address] [place], [address] Glucose [Mass/Vol] 109 mg/dL High 74-106 [facility] Comment on above: Result Comment: Fast ing Glucose result from 100 to 125 mg/dLsuggests IMPAIRED HOMEOSTASIS per A.D.A. criteria. Performed By: #### L 100.0100, L500.4050 ####[facility] [address] [place], [address] Potassium [Moles/Vol] 3.1 mmol/L Low 3.5-5.1 [facility] Comment on above: Performed By: #### L 100.0100, L500.4050 ####[facility] [address] [place], [address] Sodium [Moles/Vol] 142 mmol/L Normal 136-145 [facility] Comment on above: Performed By: #### L 100.0100, L500.4050 ####[facility] [address] [place], [address] T PROT 5.6 g/dL Low 6.4-8.2 [facility] Comment on above: Performed By: #### L 100.0100, L500.4050 ####[facility] [address] [place], [address] Urea nitrogen [Mass/Vol] 7 mg/dL Normal 7-18 [facility] Comment on above: Performed By: #### L 100.0100, L500.4050 ####[facility] [address] [place], [address] 12 Lead EKGon 10-01-2023 12 Lead EKG Normal [facility] Abdomen Single Viewon 2023 Abdomen Single View Normal [facility] Bedside Glucoseon 10-01-2023 FINGERSTICK GLU 102 mg/dL Normal 74-106 [facility] Comment on above: Result Comment: SANGITA RODRIGUEZ OF PATIENT CARE PER NURSING PROTOCOL Performed By: #### L 501.080 ####[facility] [address] [place], [address] CBC W/Diff, Automatedon 09-20 Absolute Lymph 1.13 X10 3/uL Normal 0.83-4.51 [facility] Comment on above: Performed By: #### L 100.0100 ####[facility] [address] [place], [address] Absolute Neut 7.7 X10 3/uL Normal 2.0-7.7 [facility] Comment on above: Performed By: #### L 100.0100 ####[facility] [address] [place], [address] Basophils/100 WBC (Bld) 0.4 % Normal 0-1 [facility] Comment on above: Performed By: #### L 100.0100 ####[facility] [address] [place], [address] Eosinophils/100 WBC (Bld) 0.9 % Normal 0-5 [facility] Comment on above: Performed By: #### L 100.0100 ####[facility] [address] [place], [address] Erythrocyte distribution width (RBC) [Ratio] 13.6 % Normal 11.6-14.6 [facility] Comment on above: Performed By: #### L 100.0100 ####[facility] [address] [place], [address] Hematocrit (Bld) [Volume fraction] 26.1 % Low 37-47 [facility] Comment on above: Performed By: #### L 100.0100 ####[facility] [address] [place], [address] Hemoglobin (Bld) [Mass/Vol] 9.2 g/dL Low 12.0-15.0 [facility] Comment on above: Performed By: #### L 100.0100 ####[facility] [address] [place], [address] IG% 1.000 High 0.0-0.9 [facility] Comment on above: Result Comment: IG% - Immature Granulocytes (promyelocytes, myelocytes andmetamyelocytes) > 1% indicates that a LEFT SHIFT is Present. Performed By: #### L 100.0100 ####[facility] [address] [place], [address] Lymphocytes/100 WBC (Bld) 11.6 % Low 19-41 [facility] Comment on above: Performed By: #### L 100.0100 ####[facility] [address] [place], [address] MCH (RBC) [Entitic mass] 31.1 pg Normal 27.0-32.0 [facility] Comment on above: Performed By: #### L 100.0100 ####[facility] [address] [place], [address] MCHC (RBC) [Mass/Vol] 35.2 g/dL Normal 32-36 [facility] Comment on above: Performed By: #### L 100.0100 ####[facility] [address] [place], [address] MCV (RBC) [Entitic vol] 88.2 fL Normal 81-99 [facility] Comment on above: Performed By: #### L 100.0100 ####[facility] [address] [place], [address] Monocytes/100 WBC (Bld) 7.1 % Normal 0-10 [facility] Comment on above: Performed By: #### L 100.0100 ####[facility] [address] [place], [address] Neutrophils/100 WBC (Bld) 79.0 % High 47-70 [facility] Comment on above: Performed By: #### L 100.0100 ####[facility] [address] [place], [address] Nucleated RBC (Bld) [#/Vol] 0 10*3/uL Normal 0-5 [facility] Comment on above: Performed By: #### L 100.0100 ####[facility] [address] [place], [address] Platelet mean volume (Bld) [Entitic vol] 9.4 fL Normal 6.2-12.0 [facility] Comment on above: Performed By: #### L 100.0100 ####[facility] [address] [place], [address] Platelets (Bld) [#/Vol] 219 10*3/uL Normal 150-450 [facility] Comment on above: Performed By: #### L 100.0100 ####[facility] [address] [place], [address] RBC (Bld) [#/Vol] 2.96 10*6/uL Low 4.2-5.4 [facility] Comment on above: Performed By: #### L 100.0100 ####[facility] [address] [place], [address] RDW SD 44.0 fl High 35.1-43.9 [facility] Comment on above: Performed By: #### L 100.0100 ####[facility] [address] [place], [address] WBC (Bld) [#/Vol] 9.8 10*3/uL Normal 4.4-11.0 [facility] Comment on above: Performed By: #### L 100.0100 ####[facility] [address] [place], [address] CTA Chest W/WO Contraston CTA Chest W/WO Contrast Normal [facility] Bedside Glucoseon 09-30-2023 FINGERSTICK GLU 91 mg/dL Normal 74-106 [facility] Comment on above: Result Comment: SANGITA RODRIGUEZ OF PATIENT CARE PER NURSING PROTOCOL Performed By: #### L 501.080 ####[facility] [address] [place], [address] FINGERSTICK GLU 89 mg/dL Normal 74-106 [facility] Comment on above: Result Comment: SANGITA GEMENT OF PATIENT CARE PER NURSING PROTOCOL Performed By: #### L 501.080 ####[facility] [address] [place], [address] FINGERSTICK GLU 92 mg/dL Normal 74-106 [facility] Comment on above: Result Comment: SANGITA GEMENT OF PATIENT CARE PER NURSING PROTOCOL Performed By: #### L 501.080 ####[facility] [address] [place], [address] CBC W/Diff, Automatedon 07-1 0-2024 Absolute Lymph 0.74 X10 3/uL Low 0.83-4.51 [facility] Comment on above: Performed By: #### L 100.0100 ####[facility] [address] [place], [address] Absolute Neut 9.0 X10 3/uL High 2.0-7.7 [facility] Comment on above: Performed By: #### L 100.0100 ####[facility] [address] [place], [address] Basophils/100 WBC (Bld) 0.4 % Normal 0-1 [facility] Comment on above: Performed By: #### L 100.0100 ####[facility] [address] [place], [address] Eosinophils/100 WBC (Bld) 0.7 % Normal 0-5 [facility] Comment on above: Performed By: #### L 100.0100 ####[facility] [address] [place], [address] Erythrocyte distribution width (RBC) [Ratio] 13.8 % Normal 11.6-14.6 [facility] Comment on above: Performed By: #### L 100.0100 ####[facility] [address] [place], [address] Hematocrit (Bld) [Volume fraction] 29.6 % Low 37-47 [facility] Comment on above: Performed By: #### L 100.0100 ####[facility] [address] [place], [address] Hemoglobin (Bld) [Mass/Vol] 10.2 g/dL Low 12.0-15.0 [facility] Comment on above: Performed By: #### L 100.0100 ####[facility] [address] [place], [address] IG% 0.700 Normal 0.0-0.9 [facility] Comment on above: Result Comment: IG% - Immature Granulocytes (promyelocytes, myelocytes andmetamyelocytes) > 1% indicates that a LEFT SHIFT is Present. Performed By: #### L 100.0100 ####[facility] [address] [place], [address] Lymphocytes/100 WBC (Bld) 7.2 % Low 19-41 [facility] Comment on above: Performed By: #### L 100.0100 ####[facility] [address] [place], [address] MCH (RBC) [Entitic mass] 30.7 pg Normal 27.0-32.0 [facility] Comment on above: Performed By: #### L 100.0100 ####[facility] [address] [place], [address] MCHC (RBC) [Mass/Vol] 34.5 g/dL Normal 32-36 [facility] Comment on above: Performed By: #### L 100.0100 ####[facility] [address] [place], [address] MCV (RBC) [Entitic vol] 89.2 fL Normal 81-99 [facility] Comment on above: Performed By: #### L 100.0100 ####[facility] [address] [place], [address] Monocytes/100 WBC (Bld) 4.3 % Normal 0-10 [facility] Comment on above: Performed By: #### L 100.0100 ####[facility] [address] [place], [address] Neutrophils/100 WBC (Bld) 86.7 % High 47-70 [facility] Comment on above: Performed By: #### L 100.0100 ####[facility] [address] [place], [address] Nucleated RBC (Bld) [#/Vol] 0 10*3/uL Normal 0-5 [facility] Comment on above: Performed By: #### L 100.0100 ####[facility] [address] [place], [address] Platelet mean volume (Bld) [Entitic vol] 9.5 fL Normal 6.2-12.0 [facility] Comment on above: Performed By: #### L 100.0100 ####[facility] [address] [place], [address] Platelets (Bld) [#/Vol] 232 10*3/uL Normal 150-450 [facility] Comment on above: Performed By: #### L 100.0100 ####[facility] [address] [place], [address] RBC (Bld) [#/Vol] 3.32 10*6/uL Low 4.2-5.4 [facility] Comment on above: Performed By: #### L 100.0100 ####[facility] [address] [place], [address] RDW SD 44.6 fl High 35.1-43.9 [facility] Comment on above: Performed By: #### L 100.0100 ####[facility] [address] [place], [address] WBC (Bld) [#/Vol] 10.3 10*3/uL Normal 4.4-11.0 [facility] Comment on above: Performed By: #### L 100.0100 ####[facility] [address] [place], [address] CBC-Complete Blood Cnt No Di ffon 09-30-2023 Erythrocyte distribution width (RBC) [Ratio] 13.6 % Normal 11.6-14.6 [facility] Comment on above: Order Comment: Comme nts: Day #1Reason for Laboratory Test Performed By: #### L 100.0500 ####[facility] [address] [place], [address] Hematocrit (Bld) [Volume fraction] 27.5 % Low 37-47 [facility] Comment on above: Order Comment: Comme nts: Day #1Reason for Laboratory Test Performed By: #### L 100.0500 ####[facility] [address] [place], [address] Hemoglobin (Bld) [Mass/Vol] 9.4 g/dL Low 12.0-15.0 [facility] Comment on above: Order Comment: Comme nts: Day #1Reason for Laboratory Test Performed By: #### L 100.0500 ####[facility] [address] [place], [address] MCH (RBC) [Entitic mass] 30.9 pg Normal 27.0-32.0 [facility] Comment on above: Order Comment: Comme nts: Day #1Reason for Laboratory Test Performed By: #### L 100.0500 ####[facility] [address] [place], [address] MCHC (RBC) [Mass/Vol] 34.2 g/dL Normal 32-36 [facility] Comment on above: Order Comment: Comme nts: Day #1Reason for Laboratory Test Performed By: #### L 100.0500 ####[facility] [address] [place], [address] MCV (RBC) [Entitic vol] 90.5 fL Normal 81-99 [facility] Comment on above: Order Comment: Comme nts: Day #1Reason for Laboratory Test Performed By: #### L 100.0500 ####[facility] [address] [place], [address] Platelet mean volume (Bld) [Entitic vol] 9.8 fL Normal 6.2-12.0 [facility] Comment on above: Order Comment: Comme nts: Day #1Reason for Laboratory Test Performed By: #### L 100.0500 ####[facility] [address] [place], [address] Platelets (Bld) [#/Vol] 197 10*3/uL Normal 150-450 [facility] Comment on above: Order Comment: Comme nts: Day #1Reason for Laboratory Test Performed By: #### L 100.0500 ####[facility] [address] [place], [address] RBC (Bld) [#/Vol] 3.04 10*6/uL Low 4.2-5.4 [facility] Comment on above: Order Comment: Comme nts: Day #1Reason for Laboratory Test Performed By: #### L 100.0500 ####[facility] [address] [place], [address] RDW SD 44.8 fl High 35.1-43.9 [facility] Comment on above: Order Comment: Comme nts: Day #1Reason for Laboratory Test Performed By: #### L 100.0500 ####[facility] [address] [place], [address] WBC (Bld) [#/Vol] 10.0 10*3/uL Normal 4.4-11.0 [facility] Comment on above: Order Comment: Comme nts: Day #1Reason for Laboratory Test Performed By: #### L 100.0500 ####[facility] [address] [place], [address] Bedside Glucoseon 09-29-2023 FINGERSTICK GLU 100 mg/dL Normal 74-106 [facility] Comment on above: Result Comment: SANGITA GEMENT OF PATIENT CARE PER NURSING PROTOCOL Performed By: #### L 501.080 ####[facility] [address] [place], [address] FINGERSTICK GLU 81 mg/dL Normal 74-106 [facility] Comment on above: Result Comment: SANGITA GEMENT OF PATIENT CARE PER NURSING PROTOCOL Performed By: #### L 501.080 ####[facility] [address] [place], [address] FINGERSTICK GLU 94 mg/dL Normal 74-106 [facility] Comment on above: Result Comment: SANGITA GEMENT OF PATIENT CARE PER NURSING PROTOCOL Performed By: #### L 501.080 ####[facility] [address] [place], [address] FINGERSTICK GLU 72 mg/dL Low 74-106 [facility] Comment on above: Result Comment: SANGITA GEMENT OF PATIENT CARE PER NURSING PROTOCOL Performed By: #### L 501.080 ####[facility] [address] [place], [address] FINGERSTICK GLU 100 mg/dL Normal 74-106 [facility] Comment on above: Result Comment: SANGITA GEMENT OF PATIENT CARE PER NURSING PROTOCOL Performed By: #### L 501.080 ####[facility] [address] [place], [address] CBC W/Diff, Automatedon 07-0 Absolute Lymph 1.20 X10 3/uL Normal 0.83-4.51 [facility] Comment on above: Performed By: #### L 100.0100 ####[facility] [address] [place], [address] Absolute Neut 12.1 X10 3/uL High 2.0-7.7 [facility] Comment on above: Performed By: #### L 100.0100 ####[facility] [address] [place], [address] Basophils/100 WBC (Bld) 0.3 % Normal 0-1 [facility] Comment on above: Performed By: #### L 100.0100 ####[facility] [address] [place], [address] Eosinophils/100 WBC (Bld) 0.7 % Normal 0-5 [facility] Comment on above: Performed By: #### L 100.0100 ####[facility] [address] [place], [address] Erythrocyte distribution width (RBC) [Ratio] 13.6 % Normal 11.6-14.6 [facility] Comment on above: Performed By: #### L 100.0100 ####[facility] [address] [place], [address] Hematocrit (Bld) [Volume fraction] 35.0 % Low 37-47 [facility] Comment on above: Performed By: #### L 100.0100 ####[facility] [address] [place], [address] Hemoglobin (Bld) [Mass/Vol] 12.0 g/dL Normal 12.0-15.0 [facility] Comment on above: Performed By: #### L 100.0100 ####[facility] [address] [place], [address] IG% 0.700 Normal 0.0-0.9 [facility] Comment on above: Result Comment: IG% - Immature Granulocytes (promyelocytes, myelocytes andmetamyelocytes) > 1% indicates that a LEFT SHIFT is Present. Performed By: #### L 100.0100 ####[facility] [address] [place], [address] Lymphocytes/100 WBC (Bld) 8.4 % Low 19-41 [facility] Comment on above: Performed By: #### L 100.0100 ####[facility] [address] [place], [address] MCH (RBC) [Entitic mass] 30.7 pg Normal 27.0-32.0 [facility] Comment on above: Performed By: #### L 100.0100 ####[facility] [address] [place], [address] MCHC (RBC) [Mass/Vol] 34.3 g/dL Normal 32-36 [facility] Comment on above: Performed By: #### L 100.0100 ####[facility] [address] [place], [address] MCV (RBC) [Entitic vol] 89.5 fL Normal 81-99 [facility] Comment on above: Performed By: #### L 100.0100 ####[facility] [address] [place], [address] Monocytes/100 WBC (Bld) 5.6 % Normal 0-10 [facility] Comment on above: Performed By: #### L 100.0100 ####[facility] [address] [place], [address] Neutrophils/100 WBC (Bld) 84.3 % High 47-70 [facility] Comment on above: Performed By: #### L 100.0100 ####[facility] [address] [place], [address] Nucleated RBC (Bld) [#/Vol] 0 10*3/uL Normal 0-5 [facility] Comment on above: Performed By: #### L 100.0100 ####[facility] [address] [place], [address] Platelet mean volume (Bld) [Entitic vol] 9.5 fL Normal 6.2-12.0 [facility] Comment on above: Performed By: #### L 100.0100 ####[facility] [address] [place], [address] Platelets (Bld) [#/Vol] 254 10*3/uL Normal 150-450 [facility] Comment on above: Performed By: #### L 100.0100 ####[facility] [address] [place], [address] RBC (Bld) [#/Vol] 3.91 10*6/uL Low 4.2-5.4 [facility] Comment on above: Performed By: #### L 100.0100 ####[facility] [address] [place], [address] RDW SD 44.3 fl High 35.1-43.9 [facility] Comment on above: Performed By: #### L 100.0100 ####[facility] [address] [place], [address] WBC (Bld) [#/Vol] 14.4 10*3/uL High 4.4-11.0 [facility] Comment on above: Performed By: #### L 100.0100 ####[facility] [address] [place], [address] Absolute Lymph 0.91 X10 3/uL Normal 0.83-4.51 [facility] Comment on above: Performed By: #### L 100.0100 ####[facility] [address] [place], [address] Absolute Neut 9.2 X10 3/uL High 2.0-7.7 [facility] Comment on above: Performed By: #### L 100.0100 ####[facility] [address] [place], [address] Basophils/100 WBC (Bld) 0.4 % Normal 0-1 [facility] Comment on above: Performed By: #### L 100.0100 ####[facility] [address] [place], [address] Eosinophils/100 WBC (Bld) 0.9 % Normal 0-5 [facility] Comment on above: Performed By: #### L 100.0100 ####[facility] [address] [place], [address] Hematocrit (Bld) [Volume fraction] 32.7 % Low 37-47 [facility] Comment on above: Performed By: #### L 100.0100 ####[facility] [address] [place], [address] Hemoglobin (Bld) [Mass/Vol] 11.1 g/dL Low 12.0-15.0 [facility] Comment on above: Performed By: #### L 100.0100 ####[facility] [address] [place], [address] MCH (RBC) [Entitic mass] 31.6 pg Normal 27.0-32.0 [facility] Comment on above: Performed By: #### L 100.0100 ####[facility] [address] [place], [address] MCHC (RBC) [Mass/Vol] 33.9 g/dL Normal 32-36 [facility] Comment on above: Performed By: #### L 100.0100 ####[facility] [address] [place], [address] MCV (RBC) [Entitic vol] 93.2 fL Normal 81-99 [facility] Comment on above: Performed By: #### L 100.0100 ####[facility] [address] [place], [address] Monocytes/100 WBC (Bld) 4.4 % Normal 0-10 [facility] Comment on above: Performed By: #### L 100.0100 ####[facility] [address] [place], [address] Neutrophils/100 WBC (Bld) 85.2 % High 47-70 [facility] Comment on above: Performed By: #### L 100.0100 ####[facility] [address] [place], [address] Platelets (Bld) [#/Vol] 242 10*3/uL Normal 150-450 [facility] Comment on above: Performed By: #### L 100.0100 ####[facility] [address] [place], [address] RBC (Bld) [#/Vol] 3.51 10*6/uL Low 4.2-5.4 [facility] Comment on above: Performed By: #### L 100.0100 ####[facility] [address] [place], [address] RDW SD 46.2 fl High 35.1-43.9 [facility] Comment on above: Performed By: #### L 100.0100 ####[facility] [address] [place], [address] WBC (Bld) [#/Vol] 10.8 10*3/uL Normal 4.4-11.0 [facility] Comment on above: Performed By: #### L 100.0100 ####[facility] [address] [place], [address] Absolute Lymph 1.30 X10 3/uL Normal 0.83-4.51 [facility] Comment on above: Performed By: #### B MERLE, L100.0100 ####[facility] [address] [place], [address] Absolute Neut 6.4 X10 3/uL Normal 2.0-7.7 [facility] Comment on above: Performed By: #### Marilu BLOOM, L100.0100 ####[facility] [address] [place], [address] Basophils/100 WBC (Bld) 0.6 % Normal 0-1 [facility] Comment on above: Performed By: #### Marilu BLOOM, L100.0100 ####[facility] [address] [place], [address] Eosinophils/100 WBC (Bld) 1.4 % Normal 0-5 [facility] Comment on above: Performed By: #### Marilu BLOOM, L100.0100 ####[facility] [address] [place], [address] Erythrocyte distribution width (RBC) [Ratio] 13.4 % Normal 11.6-14.6 [facility] Comment on above: Performed By: #### Marilu BLOOM, L100.0100 ####[facility] [address] [place], [address] Hematocrit (Bld) [Volume fraction] 36.2 % Low 37-47 [facility] Comment on above: Performed By: #### B MERLE, L100.0100 ####[facility] [address] [place], [address] Hemoglobin (Bld) [Mass/Vol] 12.4 g/dL Normal 12.0-15.0 [facility] Comment on above: Performed By: #### Marilu BLOOM, L100.0100 ####[facility] [address] [place], [address] IG% 0.900 Normal 0.0-0.9 [facility] Comment on above: Result Comment: IG% - Immature Granulocytes (promyelocytes, myelocytes andmetamyelocytes) > 1% indicates that a LEFT SHIFT is Present. Performed By: #### Marilu BLOOM, L100.0100 ####[facility] [address] [place], [address] Lymphocytes/100 WBC (Bld) 15.0 % Low 19-41 [facility] Comment on above: Performed By: #### Marilu BLOOM, L100.0100 ####[facility] [address] [place], [address] MCH (RBC) [Entitic mass] 30.8 pg Normal 27.0-32.0 [facility] Comment on above: Performed By: #### Marilu BLOOM, L100.0100 ####[facility] [address] [place], [address] MCHC (RBC) [Mass/Vol] 34.3 g/dL Normal 32-36 [facility] Comment on above: Performed By: #### Marilu BLOOM, L100.0100 ####[facility] [address] [place], [address] MCV (RBC) [Entitic vol] 90.0 fL Normal 81-99 [facility] Comment on above: Performed By: #### Marilu BLOOM, L100.0100 ####[facility] [address] [place], [address] Monocytes/100 WBC (Bld) 9.1 % Normal 0-10 [facility] Comment on above: Performed By: #### Marilu BLOOM, L100.0100 ####[facility] [address] [place], [address] Neutrophils/100 WBC (Bld) 73.0 % High 47-70 [facility] Comment on above: Performed By: #### Marilu BLOOM, L100.0100 ####[facility] [address] [place], [address] Nucleated RBC (Bld) [#/Vol] 0 10*3/uL Normal 0-5 [facility] Comment on above: Performed By: #### Marilu TS, L100.0100 ####[facility] [address] [place], [address] Platelet mean volume (Bld) [Entitic vol] 9.8 fL Normal 6.2-12.0 [facility] Comment on above: Performed By: #### L 100.0100 ####[facility] [address] [place], [address] Performed By: #### Marilu BLOOM, L100.0100 ####[facility] [address] [place], [address] Platelets (Bld) [#/Vol] 257 10*3/uL Normal 150-450 [facility] Comment on above: Performed By: #### Marilu BLOOM, L100.0100 ####[facility] [address] [place], [address] RBC (Bld) [#/Vol] 4.02 10*6/uL Low 4.2-5.4 [facility] Comment on above: Performed By: #### Marilu BLOOM, L100.0100 ####[facility] [address] [place], [address] RDW SD 44.1 fl High 35.1-43.9 [facility] Comment on above: Performed By: #### Marilu BLOOM, L100.0100 ####[facility] [address] [place], [address] WBC (Bld) [#/Vol] 8.7 10*3/uL Normal 4.4-11.0 [facility] Comment on above: Performed By: #### Marilu BLOOM, L100.0100 ####[facility] [address] 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, [address] Operative Reporton Operative Report Normal [facility] Operative Report Normal [facility] Type AND Screenon 09-29-2023 ABO and Rh group Nom (Bld) Blood group A Rh(D) positive Normal [facility] Comment on above: Order Comment: SC-SE CTION Performed By: #### B TS, L100.0100 ####[facility] [address] [place], [address] AST(SGOT)on 09-25-2023 AST [Catalytic activity/Vol] 13 U/L Low 15-37 [facility] Comment on above: Performed By: #### L 100.0500, L501.1105, L501.4405, L501.0900, L501.1400, L501.4100 ####[facility] [address] [place], [address] Alanine Aminotransferas (SGP T)on 09-25-2023 ALT [Catalytic activity/Vol] 19 U/L Normal 13-56 [facility] Comment on above: Performed By: #### L 100.0500, L501.1105, L501.4405, L501.0900, L501.1400, L501.4100 ####[facility] [address] [place], [address] Bedside Glucoseon 09-25-2023 FINGERSTICK GLU 74 mg/dL Normal 74-106 [facility] Comment on above: Result Comment: SANGITA GEMENT OF PATIENT CARE PER NURSING PROTOCOL Performed By: #### L 501.080 ####[facility] [address] [place], [address] Biophysical Prof W/O Non Str eson 09-25-2023 Biophysical Prof W/O Non Stres Normal [facility] CBC-Complete Blood Cnt No Di ffon 09-25-2023 Erythrocyte distribution width (RBC) [Ratio] 13.3 % Normal 11.6-14.6 [facility] Comment on above: Performed By: #### L 100.0500, L501.1105, L501.4405, L501.0900, L501.1400, L501.4100 ####[facility] [address] [place], [address] Hematocrit (Bld) [Volume fraction] 36.4 % Low 37-47 [facility] Comment on above: Performed By: #### L 100.0500, L501.1105, L501.4405, L501.0900, L501.1400, L501.4100 ####[facility] [address] [place], [address] Hemoglobin (Bld) [Mass/Vol] 12.6 g/dL Normal 12.0-15.0 [facility] Comment on above: Performed By: #### L 100.0500, L501.1105, L501.4405, L501.0900, L501.1400, L501.4100 ####[facility] [address] [place], [address] MCH (RBC) [Entitic mass] 30.8 pg Normal 27.0-32.0 [facility] Comment on above: Performed By: #### L 100.0500, L501.1105, L501.4405, L501.0900, L501.1400, L501.4100 ####[facility] [address] [place], [address] MCHC (RBC) [Mass/Vol] 34.6 g/dL Normal 32-36 [facility] Comment on above: Performed By: #### L 100.0500, L501.1105, L501.4405, L501.0900, L501.1400, L501.4100 ####[facility] [address] [place], [address] MCV (RBC) [Entitic vol] 89.0 fL Normal 81-99 [facility] Comment on above: Performed By: #### L 100.0500, L501.1105, L501.4405, L501.0900, L501.1400, L501.4100 ####[facility] [address] [place], [address] Platelet mean volume (Bld) [Entitic vol] 9.7 fL Normal 6.2-12.0 [facility] Comment on above: Performed By: #### L 100.0500, L501.1105, L501.4405, L501.0900, L501.1400, L501.4100 ####[facility] [address] [place], [address] Platelets (Bld) [#/Vol] 278 10*3/uL Normal 150-450 [facility] Comment on above: Performed By: #### L 100.0500, L501.1105, L501.4405, L501.0900, L501.1400, L501.4100 ####[facility] [address] [place], [address] RBC (Bld) [#/Vol] 4.09 10*6/uL Low 4.2-5.4 [facility] Comment on above: Performed By: #### L 100.0500, L501.1105, L501.4405, L501.0900, L501.1400, L501.4100 ####[facility] [address] [place], [address] RDW SD 43.8 fl Normal 35.1-43.9 [facility] Comment on above: Performed By: #### L 100.0500, L501.1105, L501.4405, L501.0900, L501.1400, L501.4100 ####[facility] [address] [place], [address] WBC (Bld) [#/Vol] 8.1 10*3/uL Normal 4.4-11.0 [facility] Comment on above: Performed By: #### L 100.0500, L501.1105, L501.4405, L501.0900, L501.1400, L501.4100 ####[facility] [address] [place], [address] OB Triage Physician Noteon 0 09-25-2023 OB Triage Physician Note Normal [facility] Protein+Creatinine Ratio,Uri neon 09-25-2023 PROT:CRE RATIO 197 mg/g CRE Normal 0-200 [facility] Comment on above: Performed By: #### L 100.0500, L501.1105, L501.4405, L501.0900, L501.1400, L501.4100 ####[facility] [address] [place], [address] Protein (U) [Mass/Vol] 22.7 mg/dL High <11.9 [facility] Comment on above: Performed By: #### L 100.0500, L501.1105, L501.4405, L501.0900, L501.1400, L501.4100 ####[facility] [address] [place], [address] UR CREAT 115.00 mg/dL Normal NO RANGE EST. [facility] Comment on above: Performed By: #### L 100.0500, L501.1105, L501.4405, L501.0900, L501.1400, L501.4100 ####[facility] [address] [place], [address] Serum Creatinine AND GFRon 0 09-25-2023 Creatinine [Mass/Vol] 0.43 mg/dL Low 0.55-1.02 [facility] Comment on above: Result Comment: The validity of the calculated GFR GFRAA in patients over70 years has not been determined. Clinical correlation isessential. Performed By: #### L 100.0500, L501.1105, L501.4405, L501.0900, L501.1400, L501.4100 ####[facility] [address] [place], [address] ECRCL 179.01 ml/min Normal [facility] Comment on above: Performed By: #### L 100.0500, L501.1105, L501.4405, L501.0900, L501.1400, L501.4100 ####[facility] [address] [place], [address] EST GFR - AA 227 mL/min Normal >60 [facility] Comment on above: Result Comment: Afri can Moroccan GFR Calc Performed By: #### L 100.0500, L501.1105, L501.4405, L501.0900, L501.1400, L501.4100 ####[facility] [address] [place], [address] GFR/1.73 sq M.predicted among non-blacks MDRD (S/P/Bld) [Vol rate/Area] 187 mL/min/{1.73_m2} Normal >60 [facility] Comment on above: Result Comment: Non- GFR Calc Performed By: #### L 100.0500, L501.1105, L501.4405, L501.0900, L501.1400, L501.4100 ####[facility] [address] [place], [address] Uric Acidon 07-05-2024 URIC 5.0 mg/dL Normal 2.6-6.0 [facility] Comment on above: Result Comment: The drugs N-Acetylcysteine and Metamizole may falselydepress this assay. Performed By: #### L 100.0500, L501.1105, L501.4405, L501.0900, L501.1400, L501.4100 ####[facility] [address] [place], [address] Basophil percentageOrdered B y: Felicita Baron on 07-17-2023 Hemoglobin (Bld) [Mass/Vol] 11.7 g/dL 12.0-15.0 [facility] WBC (Bld) [#/Vol] 11.2 10*3/uL 4.4-11.0 [facility] Determination of erythrocyte mean corpuscular volume (MCV)Ordered By: Felicita Baron on 07-17-2023 MCV (RBC) [Entitic vol] 89.4 fL 81-99 [facility] Erythrocyte distribution wid th ratioOrdered By: Felicitarafael Baron on 07-17-2023 Erythrocyte distribution width (RBC) [Ratio] 13.6 % 11.6-14.6 [facility] Erythrocyte distribution wid th standard deviationOrdered By: Felicitarafael Baron on 07-17-2023 Erythrocyte distribution width (RBC) [Entitic vol] 44.2 fL 35.1-43.9 [facility] Hematocrit Auto (Bld) [Volum e fraction]Ordered By: Felicitarafael Baron on 07-17-2023 Hematocrit (Bld) [Volume fraction] 34.7 % 37-47 [facility] Laboratory - Chemistry and C hemistry - challengeOrdered By: Felicitarafael Baron on 07-17-2023 ALT [Catalytic activity/Vol] 20 U/L 13-56 [facility] Laboratory - Hematology and Cell countsOrdered By: Felicita Baron on 07-17-2023 MCH (RBC) [Entitic mass] 30.2 pg 27.0-32.0 [facility] MCHC (RBC) [Mass/Vol] 33.7 g/dL 32-36 [facility] Platelet mean volume (Bld) [Entitic vol] 9.5 fL 6.2-12.0 [facility] Platelets (Bld) [#/Vol] 302 10*3/uL 150-450 [facility] No Panel InformationOrdered By: Felicita Baron on 07-17-2023 Estimated Creatinine Clearance Calc 185.20 ml/min [facility] Estimated GFR (MDRD) Amer 237 mL/min >60 [facility] Comment on above: GFR Calc Estimated GFR (MDRD) Non-Af Amer 196 mL/min >60 [facility] Comment on above: Non- GFR Calc RBC Auto (Bld) [#/Vol]Ordere d By: Felicita Baron on 07-17-2023 RBC (Bld) [#/Vol] 3.88 10*6/uL 4.2-5.4 [facility] Serum or plasma creatinine m easurement (mass/volume)Ordered By: Felicita Baron on 07-17-2023 Creatinine [Mass/Vol] 0.41 mg/dL 0.55-1.02 [facility] Comment on above: The validity of the calculated GFR & GFRAA in patients over 70 years has not been determined. Clinical correlation is essential. Serum or plasma uric acid me asurement (mass/volume)Ordered By: Felicita Baron on 07-17-2023 Urate [Mass/Vol] 4.6 mg/dL 2.6-6.0 [facility] Comment on above: The drugs N-Acetylcy steine and Metamizole may falsely depress this assay. Thin prep Papanicolaou smear with manual screeningOrdered By: Felicita Baron on 07-17-2023 Protein (U) [Mass/Vol] 16.0 mg/dL 0.0-11.8 [facility] Thin prep Papanicolaou smear with manual screening 14 U/L 15-37 [facility] Urine creatinine measurement (mass/volume)Ordered By: Felicita Baron on 07-17-2023 Creatinine (U) [Mass/Vol] 97.30 mg/dL NO RANGE EST. [facility] Urine protein/creatinine mas s ratioOrdered By: Felicita Baron on 07-17-2023 Protein/Creatinine (U) [Mass ratio] 164 mg/g CRE 0-200 [facility] Absolute lymphocyte countOrd ered By: Portia Garcia on 07-09-2023 Lymphocytes Auto (Unsp spec) [#/Vol] 1.40 10*3/uL 0.83-4.51 [facility] Automated lymphocyte count a s percentage of total leukocytesOrdered By: Portia Garcia on 07-09-2023 Lymphocytes/100 WBC Auto (Unsp spec) 13.5 % 19-41 [facility] Basophil percentageOrdered B y: Portia Garcia on 07-09-2023 Basophils/100 WBC (Bld) 0.9 % 0-1 [facility] Bilirubin [Mass/Vol] 0.20 mg/dL 0.20-1.00 [facility] Comment on above: For patients on eltr ombopag therapy, use of Dimension [place] TBIL is not recommended. Chloride [Moles/Vol] 109 mmol/L 98-107 [facility] Eosinophils/100 WBC (Bld) 1.7 % 0-5 [facility] Glucose [Mass/Vol] 75 mg/dL 74-106 [facility] Hemoglobin (Bld) [Mass/Vol] 11.6 g/dL 12.0-15.0 [facility] Monocytes/100 WBC (Bld) 10.1 % 0-10 [facility] Neutrophils (Bld) [#/Vol] 7.4 10*3/uL 2.0-7.7 [facility] Neutrophils/100 WBC (Bld) 71.4 % 47-70 [facility] Potassium [Moles/Vol] 3.7 mmol/L 3.5-5.1 [facility] Protein [Mass/Vol] 7.1 g/dL 6.4-8.2 [facility] Sodium [Moles/Vol] 138 mmol/L 136-145 [facility] WBC (Bld) [#/Vol] 10.4 10*3/uL 4.4-11.0 [facility] Determination of erythrocyte mean corpuscular volume (MCV)Ordered By: Portia Garcia on 07-09-2023 MCV (RBC) [Entitic vol] 89.4 fL 81-99 [facility] Erythrocyte distribution wid th ratioOrdered By: Portia Garcia on 07-09-2023 Erythrocyte distribution width (RBC) [Ratio] 13.2 % 11.6-14.6 [facility] Erythrocyte distribution wid th standard deviationOrdered By: Portia Garcia on 07-09-2023 Erythrocyte distribution width (RBC) [Entitic vol] 43.2 fL 35.1-43.9 [facility] Hematocrit Auto (Bld) [Volum e fraction]Ordered By: Portia Garcia on 07-09-2023 Hematocrit (Bld) [Volume fraction] 34.7 % 37-47 [facility] Immature granulocytes/100 WB C Auto (Bld)Ordered By: Portia Garcia on 07-09-2023 Immature granulocytes/100 WBC (Bld) 2.400 % 0.0-0.9 [facility] Comment on above: IG% - Immature Granu locytes (promyelocytes, myelocytes and metamyelocytes) > 1% indicates that a LEFT SHIFT is Present. Laboratory - Chemistry and C hemistry - challengeOrdered By: Portia Garcia on 07-09-2023 Albumin/Globulin [Mass ratio] 0.8 {ratio} 0.9-2.4 [facility] ALP [Catalytic activity/Vol] 79 U/L 45-117 [facility] ALT [Catalytic activity/Vol] 20 U/L 13-56 [facility] CO2 [Moles/Vol] 25.0 mmol/L 21.0-32.0 [facility] Globulin (S) [Mass/Vol] 4.0 g/dL 2.2-4.2 [facility] Urea nitrogen/Creatinine [Mass ratio] 14.0 mg/mg 10-20 [facility] Laboratory - Chemistry and C hemistry - challengeon 07-09-2023 Glucose Ql (U) Negative [facility] Laboratory - Hematology and Cell countsOrdered By: Portia Garcia on 07-09-2023 MCH (RBC) [Entitic mass] 29.9 pg 27.0-32.0 [facility] MCHC (RBC) [Mass/Vol] 33.4 g/dL 32-36 [facility] Nucleated RBC/100 WBC (Bld) [Ratio] 0 % 0-5 [facility] Platelet mean volume (Bld) [Entitic vol] 9.4 fL 6.2-12.0 [facility] Platelets (Bld) [#/Vol] 302 10*3/uL 150-450 [facility] Laboratory - Urinalysison Protein Ql (U) Negative [facility] No Panel InformationOrdered By: Portia Garcia on 07-09-2023 Estimated GFR (MDRD) Amer 227 mL/min >60 [facility] Comment on above: GFR Calc Estimated GFR (MDRD) Non-Af Amer 188 mL/min >60 [facility] Comment on above: Non- GFR Calc RBC Auto (Bld) [#/Vol]Ordere d By: Portia Garcia on 07-09-2023 RBC (Bld) [#/Vol] 3.88 10*6/uL 4.2-5.4 [facility] Serum or plasma calcium kimber urement (mass/volume)Ordered By: Portia Garcia on 07-09-2023 Calcium [Mass/Vol] 9.5 mg/dL 8.5-10.1 [facility] Serum or plasma creatinine m easurement (mass/volume)Ordered By: Portia Garcia on 07-09-2023 Creatinine [Mass/Vol] 0.43 mg/dL 0.55-1.02 [facility] Comment on above: The validity of the calculated GFR & GFRAA in patients over 70 years has not been determined. Clinical correlation is essential. Serum or plasma urea nitroge n measurement (mass/volume)Ordered By: Portia Garcia on 07-09-2023 Urea nitrogen [Mass/Vol] 6 mg/dL 7-18 [facility] Thin prep Papanicolaou smear with manual screeningOrdered By: Portia Garcia on 07-09-2023 Protein (U) [Mass/Vol] 9.2 mg/dL 0.0-11.8 [facility] Thin prep Papanicolaou smear with manual screening 3.1 g/dL 3.2-5.0 [facility] Thin prep Papanicolaou smear with manual screening 12 U/L 15-37 [facility] Thin prep Papanicolaou smear with manual screening 4 5-15 [facility] Urine creatinine measurement (mass/volume)Ordered By: Portia Garcia on 07-09-2023 Creatinine (U) [Mass/Vol] 64.30 mg/dL NO RANGE EST. [facility] Urine protein/creatinine mas s ratioOrdered By: Portia Garcia on 07-09-2023 Protein/Creatinine (U) [Mass ratio] 143 mg/g CRE 0-200 [facility] Laboratory - Chemistry and C hemistry - challengeon 07-03-2023 Glucose Ql (U) Negative [facility] Laboratory - Urinalysison Protein Ql (U) Negative [facility] 36on 06-26-2023 36 S: Patient spoke chen ARROYO nurse regarding vaginal discharge. B: Onset of symptoms/concern: started 4 weeks ago, 24 weeks . A: Patient states she has thick johnson/white vaginal discharge. States she has burning to the vagina area and irritation to the vaginal area, it is constant. Denies fever. States she called her OB last week and they cancelled her appointment. Patient thinks she may have a yeast infection. R: Advised to call her OB office again, if they won't see her she can go to urgent care for evaluation, also could ask them what can she take for yeast infection since she is . No further needs at this time. Patient instructed to call back with new or worsening symptoms. Reason for Disposition Abnormal color vaginal discharge (i.e., yellow, green, ware) Protocols used: - [id number] Name of Caller: Trisha gary Contact Reason for Appointment: Pt called and spoke with a nurse for vaginal discharge and odor with burning. Pt called back and asked for an appointment with Dr. Noel. Pt is currently and has care outside of [facility]. Dr. Noel does not see OB patients. Pt was advised she could see Dr. Noel as soon as she delivered. Spoke with backline and was told to advise Pt to call her current OB to make an appointment. [facility] does not have any of her records. Pt was told she could transfer care but pt declined. Office Name: [place] [facility] 36on 06-25-2023 36 S: Patient spoke chen ARROYO nurse regarding 24 weeks; thick johnson/white discharge with odor and burning B: Onset of symptoms/concern few days A: Patient endorses thick, odorous, johnson/white vaginal discharge with itching. Denies abdominal pain, fever, bleeding, redness, swelling, change in movement, or open areas. Patient lives in [place] and has been managed my [facility] for her . She is wanting to be seen stating the Urgent Care near her won't treat her since she is . She is requesting [place] office. R: Offered soonest available at [facility] and [facility] but patient declined stating those offices are almost 2 hours from her. Please follow up with patient regarding scheduling needs/concerns as nothing available in the near future. Patient requesting [place] office. Patient educated on s/s to call back and report. Patient understands care advice. No further needs at this time. Patient instructed to call back with new or worsening symptoms. Reason for Disposition Abnormal color vaginal discharge (i.e., yellow, green, ware) Protocols used: - Vaginal [id number] Normal [facility] 36 Lm for pt to call [facility] per web request [facility] Gram stain for investigation of transfusion reactionOrdered By: Lenka Mcdonald on 06-03-2023 Microscopic observation Gram stain Nom (Unsp spec) [facility] Laboratory - Chemistry and C hemistry - challengeon 06-03-2023 Glucose Ql (U) Negative [facility] Laboratory - Urinalysison Protein Ql (U) Negative [facility] No Panel InformationOrdered By: Lenka Mcdonald on 06-03-2023 Genital Culture [facility] Absolute lymphocyte countOrd ered By: Natasha Correia on 05-28-2023 Lymphocytes Auto (Unsp spec) [#/Vol] 1.36 10*3/uL 0.83-4.51 [facility] Automated lymphocyte count a s percentage of total leukocytesOrdered By: Natasha Correia on 05-28-2023 Lymphocytes/100 WBC Auto (Unsp spec) 14.4 % 19-41 [facility] Basophil percentageOrdered B y: Natasha Correia on 05-28-2023 Basophils/100 WBC (Bld) 0.6 % 0-1 [facility] Eosinophils/100 WBC (Bld) 1.4 % 0-5 [facility] Hemoglobin (Bld) [Mass/Vol] 11.3 g/dL 12.0-15.0 [facility] Monocytes/100 WBC (Bld) 6.0 % 0-10 [facility] Neutrophils (Bld) [#/Vol] 7.2 10*3/uL 2.0-7.7 [facility] Neutrophils/100 WBC (Bld) 76.5 % 47-70 [facility] WBC (Bld) [#/Vol] 9.4 10*3/uL 4.4-11.0 [facility] Determination of erythrocyte mean corpuscular volume (MCV)Ordered By: Natasha Correia on 05-28-2023 MCV (RBC) [Entitic vol] 88.8 fL 81-99 [facility] Erythrocyte distribution wid th ratioOrdered By: Natasha Correia on 05-28-2023 Erythrocyte distribution width (RBC) [Ratio] 13.2 % 11.6-14.6 [facility] Erythrocyte distribution wid th standard deviationOrdered By: Natasha Correia on 05-28-2023 Erythrocyte distribution width (RBC) [Entitic vol] 43.0 fL 35.1-43.9 [facility] Hematocrit Auto (Bld) [Volum e fraction]Ordered By: Natasha Correia on 05-28-2023 Hematocrit (Bld) [Volume fraction] 33.3 % 37-47 [facility] Immature granulocytes/100 WB C Auto (Bld)Ordered By: Natasha Correia on 05-28-2023 Immature granulocytes/100 WBC (Bld) 1.100 % 0.0-0.9 [facility] Comment on above: IG% - Immature Granu locytes (promyelocytes, myelocytes and metamyelocytes) > 1% indicates that a LEFT SHIFT is Present. Laboratory - Hematology and Cell countsOrdered By: Natasha Correia on 05-28-2023 MCH (RBC) [Entitic mass] 30.1 pg 27.0-32.0 [facility] MCHC (RBC) [Mass/Vol] 33.9 g/dL 32-36 [facility] Nucleated RBC/100 WBC (Bld) [Ratio] 0 % 0-5 [facility] Platelet mean volume (Bld) [Entitic vol] 9.4 fL 6.2-12.0 [facility] Platelets (Bld) [#/Vol] 310 10*3/uL 150-450 [facility] No Panel InformationOrdered By: Natasha Correia on 05-28-2023 Fibrinogen 475 mg/dl -444 [facility] RBC Auto (Bld) [#/Vol]Ordere d By: Natasha Correia on 05-28-2023 RBC (Bld) [#/Vol] 3.75 10*6/uL 4.2-5.4 [facility] Laboratory - Chemistry and C hemistry - challengeon 05-26-2023 Glucose Ql (U) Negative [facility] Laboratory - Urinalysison Protein Ql (U) Negative [facility] Culture, urineOrdered By: Tyrell Garcia on 05-22-2023 Bacteria identified Cx Nom (U) Culture exhibits no growth. [facility] Bacteria identified Cx Nom (U) Culture exhibits no growth. [facility] Gram stain for investigation of transfusion reactionOrdered By: Portia Garcia on 05-22-2023 Microscopic observation Gram stain Nom (Unsp spec) [facility] Microscopic observation Gram stain Nom (Unsp spec) [facility] Laboratory - Chemistry and C hemistry - challengeon 05-22-2023 Bilirubin Ql (U) Negative [facility] Glucose Ql (U) Negative [facility] Ketones Ql (U) Negative [facility] pH (U) 5.0 [pH] [facility] Specific gravity (U) [Rel density] 1.025 [facility] Urobilinogen (U) [Mass/Vol] Negative [facility] Laboratory - Hematology and Cell countson 05-22-2023 Hemoglobin Ql (U) Negative [facility] Laboratory - Specimen inform ationon 05-22-2023 Clarity (U) Clear [facility] Color (U) DARK YELLOW [facility] Laboratory - Urinalysison Nitrite Ql (U) Negative [facility] Protein Ql (U) Negative [facility] No Panel InformationOrdered By: Portia Garcia on 05-22-2023 Genital Culture Neisseria or beta-hemolytic Streptococcus isolated. [facility] Genital Culture Neisseria or beta-hemolytic Streptococcus isolated. [facility] No Panel Informationon 05-21 POC Bacterial Vaginitis (Rapid) Negative [facility] Urine Leukocytes Negatve [facility] Urine Non-Hemolyzed Blood Negative [facility] 05-18-2023 36 Message released to patient as written. Patient's further questions if applicable: Were all questions from office addressed or relayed to the patient from encounter: Yes [facility] 36 LMTCO. Per provider it is in pt's best interest to be seen with her current OB provider. We do not have access to her OB records. [facility] 36 Name of caller: Trisha Willis Contact phone number: [phone] Relationship to Patient: patient Provider: Joss Practice: [facility] Chief Complaint/Reason for Call: Pt called to reschedule her appt. She said she has an OB that cannot see her so she called to be scheduled with Dr. Noel and ended up getting Dr. Coreas. She said she is not looking to transfer care. She is only looking to be seen for this infection but due to a stomach bug she cannot come in today. Can pt be seen in office for this one time visit or does she need to be scheduled with [facility]. [facility] does not do OB. Pt has been canceled for now as advised. She sais she cannot come in today. She [place] about [place] hour away. Please advise. Best time of day caller can be reached: any Patient advised that office/PCP has 24-48 business hours to return their call: Yes [place] [id number] 05-07-2023 36 Lm to schedule [address] 05-06-2023 36 Thank you for the update- recommend that she schedule with her primary OB. Thanks [facility] 36 S: Pt calling [facility] fo r vaginal burning B: 1 week A: Pt reports intense vaginal burning 8/10 to outer & inner area w/ fishy odor. Denies abnormal vaginal discharge. Pt states she is 18wk & was seen at her OB office yesterday w/ [facility] for her . Had been previously advised by her OB last week to try 7 day Monistat for these sx but had no relief. States yesterday OB recommended Hydrocortisone cream. Pt states I can't use this internally. Pt states she was referred to Dr Kelley's office in the past for hx of BV and yeast infections and is hoping this provider will help her. R: Called office to inquire if Dr Kelley will see pt d/t pt's OB not tx pt's sx. Vivian advised TE to Dr Kelley d/t pt's OB not addressing her sx. Pt informed of plan. Also encouraged pt to call her OB office again to readdress her concerns. Pt states I will try. Reason for Disposition SEVERE pain and not improved 2 hours after pain medicine TE sent. See notes Protocols used: Vaginal Uzerzept-[id number] Normal [facility] Laboratory - Chemistry and C hemistry - challengeon 05-05-2023 Glucose Ql (U) Negative [facility] Laboratory - Urinalysison Protein Ql (U) Negative [facility] Laboratory - Chemistry and C hemistry - challengeon 04-07-2023 Glucose Ql (U) Negative [facility] Laboratory - Urinalysison Protein Ql (U) Trace [facility] Gram stain for investigation of transfusion reactionOrdered By: Felicita Baron on 04-02-2023 Microscopic observation Gram stain Nom (Unsp spec) [facility] Microscopic observation Gram stain Nom (Unsp spec) [facility] Laboratory - Chemistry and C hemistry - challengeon 04-02-2023 Glucose Ql (U) Negative [facility] Laboratory - Urinalysison Protein Ql (U) Trace [facility] Thin prep Papanicolaou smear with manual screeningOrdered By: Felicita Baron on 04-02-2023 Thin prep Papanicolaou smear with manual screening [facility] Thin prep Papanicolaou smear with manual screening [facility] Progress Noteon 03-30-2023 [employer] Authentication Interface Message Text MFM attending note: Napoleon is a 27 y.o. female, and is at 11w4d Reason for the visit: Maternal osteogenesis imperfecta HPI: The patient is her to evaluate Maternal osteogenesis imperfecta. Napoleon denies nausea, vomiting, vaginal bleeding, vaginal discharge, and/or cramping. A separate genetic counseling note will be sent separately. Review of Systems Constitutional: Negative. HENT: Negative. Eyes: Negative. Respiratory: Negative. Cardiovascular: Negative. Gastrointestinal: Negative. Genitourinary: Negative. Musculoskeletal: Negative. Skin: Negative. Neurological: Negative. Endo/Heme/Allergies: Negative. Psychiatric/Behavioral: Negative. PHYSICAL EXAM: BP 125/79 Pulse 105 Resp 20 Wt 63.3 kg (139 lb 9.6 oz) LMP 01/08/2023 (Exact Date) SpO2 98% BMI 28.20 kg/m Constitutional: General: She is active. HENT: Head: Atraumatic. Eyes: Extraocular Movements: EOM normal. Conjunctiva/sclera: Conjunctivae normal. Pulmonary: Effort: Pulmonary effort is normal. Abdominal: Comments: gravid uterus Musculoskeletal: Normal range of motion. Neurological: Mental Status: She is alert. X 3. Ultrasound report: 1. [place] intrauterine with cardiac activity present at 11w 4d with an BUCKY of 10/15/2023. 2. [place] rump length measurement is consistent with established gestational age. 3. First trimester nuchal translucency appeared normal for this gestational age, 1 mm. [facility] Plan of Care Diagnosis: Maternal osteogenesis imperfecta Cell free DNA aneuploidy screening is low risk; Declined invasive testing Plan: 1. Continued obstetrical care with her primary early years teacher is recommended. Co-management of with [facility] due to maternal OI is available. 2. Evaluation of anatomy is recommended at 18 weeks gestation. This is planned with the Treatment Center. 3. Follow up q4 weeks to evaluate biometric parameters and anatomy beginning at viability. These are planned with [facility] [place]. 4. surveillance as follows: as clinically indicated. 5. Maternal echocardiogram should be considered, if not yet completed. 6. With the information available to us at this time, delivery is appropriate at your local institution with follow up as indicated. 7. Mode of delivery is given maternal OI (risk of pelvic fracture and also risk to fetus given autosomal dominant condition). Recommend at 39 weeks. 8. Neonatology/pediatricia n to be present at delivery to evaluate infant and to determine nursery placement. Skeletal clinic appointment for son and this baby will be arranged in October 2023 for evaluation. Patient will be contacted by genetics department to arrange. 9. Other follow up as clinically indicated. Chart review and preparation: 5 minutes. Face to face: 10 minutes. Documentation and care coordination: 5 minutes. Total time spent on patient care today: 20 minutes. Normal [facility] Absolute lymphocyte countOrd ered By: Natasha Correia on 03-19-2023 Lymphocytes Auto (Unsp spec) [#/Vol] 1.65 10*3/uL 0.83-4.51 [facility] Basophil percentageOrdered B y: Natasha Correia on 03-19-2023 Basophils/100 WBC (Bld) 0.4 % 0-1 [facility] Bilirubin [Mass/Vol] 0.20 mg/dL 0.20-1.00 [facility] Comment on above: For patients on eltr ombopag therapy, use of Dimension [place] TBIL is not recommended. Chloride [Moles/Vol] 104 mmol/L 98-107 [facility] Eosinophils/100 WBC (Bld) 1.6 % 0-5 [facility] Glucose [Mass/Vol] 79 mg/dL 74-106 [facility] Neutrophils (Bld) [#/Vol] 7.0 10*3/uL 2.0-7.7 [facility] Neutrophils/100 WBC (Bld) 73.6 % 47-70 [facility] Potassium [Moles/Vol] 3.6 mmol/L 3.5-5.1 [facility] Protein [Mass/Vol] 7.5 g/dL 6.4-8.2 [facility] Sodium [Moles/Vol] 135 mmol/L 136-145 [facility] WBC (Bld) [#/Vol] 9.5 10*3/uL 4.4-11.0 [facility] Blood erythrocytes count (nu mber/volume)Ordered By: Natasha Correia on 03-19-2023 RBC (Bld) [#/Vol] 4.38 10*6/uL 4.2-5.4 [facility] Blood hemoglobin measurement (mass/volume)Ordered By: Natasha Correia on 03-19-2023 Hemoglobin (Bld) [Mass/Vol] 12.7 g/dL 12.0-15.0 [facility] Blood lymphocytes/100 leukoc ytesOrdered By: Natasha Correia on 03-19-2023 Lymphocytes/100 WBC (Bld) 17.3 % 19-41 [facility] Blood monocytes/100 leukocyt esOrdered By: Natasha Correia on 03-19-2023 Monocytes/100 WBC (Bld) 6.6 % 0-10 [facility] Blood platelet mean volumeOr dered By: Natasha Correia on 03-19-2023 Platelet mean volume (Bld) [Entitic vol] 9.0 fL 6.2-12.0 [facility] Determination of erythrocyte mean corpuscular volume (MCV)Ordered By: Natasha Correia on 03-19-2023 MCV (RBC) [Entitic vol] 87.9 fL 81-99 [facility] HIV 1 and HIV-2 antibody ass ay with HIV-1 p24 antigen detectionOrdered By: Natasha Correia on 03-19-2023 HIV 1+2 Ab+HIV1 p24 Ag IA Ql Non-Reactive Nonreactive [facility] Hematocrit Auto (Bld) [Volum e fraction]Ordered By: Natasha Correia on 03-19-2023 Hematocrit (Bld) [Volume fraction] 38.5 % 37-47 [facility] Laboratory - Chemistry and C hemistry - challengeOrdered By: Natasha Correia on 03-19-2023 ALP [Catalytic activity/Vol] 112 U/L 45-117 [facility] ALT [Catalytic activity/Vol] 30 U/L 13-56 [facility] CO2 [Moles/Vol] 24.0 mmol/L 21.0-32.0 [facility] Free T4 [Mass/Vol] 0.74 ng/dL 0.76-1.46 [facility] Globulin (S) [Mass/Vol] 4.0 g/dL 2.2-4.2 [facility] Urea nitrogen/Creatinine [Mass ratio] 20.7 mg/mg 10-20 [facility] Laboratory - Hematology and Cell countsOrdered By: Natasha Correia on 03-19-2023 Erythrocyte distribution width (RBC) [Entitic vol] 43.3 fL 35.1-43.9 [facility] Erythrocyte distribution width (RBC) [Ratio] 13.4 % 11.6-14.6 [facility] Immature granulocytes/100 WBC (Bld) 0.500 % 0.0-0.9 [facility] Comment on above: IG% - Immature Granu locytes (promyelocytes, myelocytes and metamyelocytes) > 1% indicates that a LEFT SHIFT is Present. MCH (RBC) [Entitic mass] 29.0 pg 27.0-32.0 [facility] Nucleated RBC/100 WBC (Bld) [Ratio] 0 % 0-5 [facility] MCHC Auto (RBC) [Mass/Vol]Or dered By: Natasha Correia on 03-19-2023 MCHC (RBC) [Mass/Vol] 33.0 g/dL 32-36 [facility] No Panel InformationOrdered By: Natasha Correia on 03-19-2023 Estimated GFR (MDRD) Amer 160 mL/min >60 [facility] Comment on above: GFR Calc Estimated GFR (MDRD) Non-Af Amer 133 mL/min >60 [facility] Comment on above: Non- GFR Calc Hepatitis B Surface Antigen Non-Reactive Nonreactive [facility] Hepatitis C Antibody Non-Reactive Nonreactive [facility] Comment on above: Non Reactive: < 0.8 Equivocal: >/= 0.8 to < 1.0 Reactive: >/= 1.0The CDC recommends that a reactive/equivocal HCV antibody result be followed up by the HCV Nucleic Acid Amplificationtest (701039) Miscellaneous Test Comment MAILED SPECIMEN [facility] Rubella IgG Antibody Reactive Nonreactive [facility] Comment on above: Antibody Results Int erpretation of Immune Status Non Reactive Presumed Non-Immune Equivocal Equivocal Reactive Presumed Immune Thyroid Stimulating Hormone (TSH) 1.89 uIU/mL 0.358-3.74 [facility] Platelets bldOrdered By: Deandre Correia on 03-19-2023 Platelets (Bld) [#/Vol] 320 10*3/uL 150-450 [facility] Serum Treponema species anti body detectionOrdered By: Natasha Correia on 03-19-2023 Treponema sp Ab Ql (S) Non-Reactive [facility] Serum or plasma albumin kimber urement (mass/volume)Ordered By: Natasha Correia on 03-19-2023 Albumin [Mass/Vol] 3.5 g/dL 3.2-5.0 [facility] Serum or plasma albumin/glob ulin mass ratioOrdered By: Natasha Correia on 03-19-2023 Albumin/Globulin [Mass ratio] 0.9 {ratio} 0.9-2.4 [facility] Serum or plasma calcium kimber urement (mass/volume)Ordered By: Natasha Correia on 03-19-2023 Calcium [Mass/Vol] 8.7 mg/dL 8.5-10.1 [facility] Serum or plasma creatinine m easurement (mass/volume)Ordered By: Natasha Correia on 03-19-2023 Creatinine [Mass/Vol] 0.58 mg/dL 0.55-1.02 [facility] Comment on above: The validity of the calculated GFR & GFRAA in patients over 70 years has not been determined. Clinical correlation is essential. Serum or plasma urea nitroge n measurement (mass/volume)Ordered By: Natasha Correia on 03-19-2023 Urea nitrogen [Mass/Vol] 12 mg/dL 7-18 [facility] Thin prep Papanicolaou smear with manual screeningOrdered By: Natasha Correia on 03-19-2023 Thin prep Papanicolaou smear with manual screening 12 U/L 15-37 [facility] Thin prep Papanicolaou smear with manual screening 7 5-15 [facility] Chlamydia trachomatis rRNA d etection by probe and target amplification methodOrdered By: Natasha Correia on 03-09-2023 C. trachomatis rRNA KENNETH+probe Ql (Unsp spec) Negative Negative [facility] Culture, urineOrdered By: Matt Correia on 03-09-2023 Bacteria identified Cx Nom (U) Positive [facility] Bacteria identified Cx Nom (U) Positive [facility] Gram stain for investigation of transfusion reactionOrdered By: Natasha Correia on 03-09-2023 Microscopic observation Gram stain Nom (Unsp spec) [facility] Microscopic observation Gram stain Nom (Unsp spec) [facility] Laboratory - Microbiology an d Antimicrobial susceptibilityOrdered By: Natasha Correia on 03-09-2023 N. gonorrhoeae DNA KENNETH+probe Ql (Unsp spec) Negative Negative [facility] Comment on above: Performed at: =[facility] [place] [address] [id number] Director: Susie Leigh MD, Phone: [phone] Thin prep Papanicolaou smear with manual screeningOrdered By: Natasha Correia on 03-09-2023 Thin prep Papanicolaou smear with manual screening [facility] Thin prep Papanicolaou smear with manual screening [facility] TCANCon 03-07-2023 Test cancelled: vagdna Normal [facility] ([place]) Comment on above: Performed By: #### T CAN #### [facility] [address] [place] [address] 36on 03-05-2023 36 I called patient and let her know we do not see patients in our office. I recommended she get seen at her regular [employer] office. Appointment cancelled. [facility] 36on 03-04-2023 36 S: Pt calling [facility] c/o vaginal burning and odor. Pt is 8 weeks . B: Symptoms began one week ago. A: Pt has vaginal burning and irritation. Also has odor. Some itching. No discharge. She has urinary frequency. Pt denies fever, sores or blisters. No other symptoms. Pt has already scheduled her first OB appointment. R: Appointment scheduled. Negative Covid 19 screen. Advised pt to call back with new or worsening symptoms. She verbalized understanding. Reason for Disposition MODERATE-SEVERE itching (i.e., interferes with school, work, or sleep) Protocols used: Vaginal [id number]-[id number] [facility] Gram stain for investigation of transfusion reactionOrdered By: Tonia Iverson on 02-17-2023 Microscopic observation Gram stain Nom (Unsp spec) [facility] Microscopic observation Gram stain Nom (Unsp spec) [facility] Laboratory - Chemistry and C hemistry - challengeon 02-17-2023 HCG ( test) Ql (U) Positive [facility] Bilirubin Ql (U) Negative [facility] Glucose Ql (U) Negative [facility] Ketones Ql (U) Negative [facility] pH (U) 5.0 [pH] [facility] Urobilinogen (U) [Mass/Vol] Negative [facility] Laboratory - Hematology and Cell countson 02-17-2023 Hemoglobin Ql (U) Negative [facility] Laboratory - Specimen inform ationon 02-17-2023 Clarity (U) Clear [facility] Color (U) YELLOW [facility] Laboratory - Urinalysison Nitrite Ql (U) Negative [facility] Protein Ql (U) Negative [facility] No Panel Informationon 02-17 POC Bacterial Vaginitis (Rapid) Negative [facility] Urine Leukocytes Negatve [facility] Urine Non-Hemolyzed Blood Negative [facility] Thin prep Papanicolaou smear with manual screeningOrdered By: Tonia Iverson on 02-17-2023 Genital Culture G. vaginalis (Presumptive) [facility] Genital Culture G. vaginalis (Presumptive) [facility] Office Visiton 01-27-2023 Follow-up visit [id number] Napoleon Willis 1995 F Date Provider Department Center 01/27/2023 [id number] NOEL [facility] PEL None Family History Problem Relation Age of Onset High Blood Pressure Mother Stroke Mother Family Status - Relation Status Age at Mother Alive Level of Service:05373 MS OFFICE/OUTPATIENT ESTABLISHED LOW MDM 20-29 MIN Reason for Visit and Comments: Vaginal Pain [259] Normal [facility] Progress Noteon 01-27-2023 Progress Note CC: Chief Complaint Patient presents with Vaginal Pain HPI: 27 y.o. No obstetric history on file. Here with vestibular burning Started 2 weeks ago. She first went to urgent care, given Rx fluconazole. No relief Went to her [employer] in [place], vaginal culture + E. Coli- Rx Augmentin. [...] nourished, no acute distress RESP: normal effort [employer]: EXTERNAL: Groin: normal skin color and [...] ointment x 2 weeks, also use vaseline. [facility] 36on 01-22-2023 36 S: Patient spoke chen palomo [facility] nurse regarding vaginal burning B: Onset of symptoms/concern >2 weeks A: Symptoms started 2 1/2 weeks ago, was seen, prescribed Amoxicillin, on day 6, states she had e.coli. Now endorsing pelvic pain, constant vaginal burning. Feels slightly nauseated. Denies: fever, chills, discharge, odor, bleeding, burning with urination. Patient has seen Dr. Noel in the past. Lives in [place] so would like appointment in closest office if possible. R: Patient declined sooner appointment this week due to scheduling conflicts and location. Called the [facility] clinic at [facility] and spoke with OK to schedule patient in new patient slot at 9:30 and change to office visit. Address of office verified. Patient understands care advice. No further needs at this time. Patient instructed to call back with new or worsening symptoms. Reason for Disposition Patient wants to be seen Protocols used: Vaginal Gukxdaum-ISTIB-LS Normal [facility] Chlamydia trachomatis rRNA d etection by probe and target amplification methodOrdered By: Tonia Iverson on 01-13-2023 C. trachomatis rRNA KENNETH+probe Ql (Unsp spec) Negative Negative [facility] Gram stain for investigation of transfusion reactionOrdered By: Tonia Iverson on 01-13-2023 Microscopic observation Gram stain Nom (Unsp spec) [facility] Laboratory - Chemistry and C hemistry - challengeon 01-13-2023 Bilirubin Ql (U) Negative [facility] Glucose Ql (U) Negative [facility] Ketones Ql (U) Negative [facility] pH (U) 5.0 [pH] [facility] Specific gravity (U) [Rel density] 1.010 [facility] Urobilinogen (U) [Mass/Vol] Negative [facility] Laboratory - Hematology and Cell countson 01-13-2023 Hemoglobin Ql (U) Negative [facility] Laboratory - Microbiology an d Antimicrobial susceptibilityOrdered By: Tonia Iverson on 01-13-2023 N. gonorrhoeae DNA KENNETH+probe Ql (Unsp spec) Negative Negative [facility] Comment on above: Performed at: =[address] [id number] Director: Susie Leigh MD, Phone: [phone] Laboratory - Specimen inform ationon 01-13-2023 Clarity (U) Clear [facility] Color (U) Yellow [facility] Laboratory - Urinalysison Nitrite Ql (U) Negative [facility] Protein Ql (U) Negative [facility] No Panel Informationon 01-13 POC Bacterial Vaginitis (Rapid) Negative [facility] POC Trichomonas (Rapid) Negative [facility] Urine Leukocytes Negatve [facility] Urine Non-Hemolyzed Blood Negative [facility] Thin prep Papanicolaou smear with manual screeningOrdered By: Tonia Iverson on 01-13-2023 Genital Culture Presumptive E. coli [facility] XR CHEST 2V FRONTAL/LATon [facility] XR Chest PA and Lateralon IMPRESSION: No acute radiographic abnormality. Unix Administrator: PAOLA Transcribe Date/Time: Jul 12 2022 9:27A Dictated by : NICOLAS CELESTIN MD This examination was interpreted and the report reviewed and electronically signed by: NICOLAS CELESTIN MD on Jul 12 2022 9:27AM [facility] DIVISION OF RADIOLOGY * * *Final Report* * * DATE OF EXAM: Jul 12 2022 9:22AM WOX [id number] - XR CHEST 2V FRONTAL/LAT / PROCEDURE REASON: Chest wall injury, initial encounter * * * * Physician Interpretation * * * * EXAMINATION: CHEST RADIOGRAPH (2 VIEW FRONTAL & LATERAL) CLINICAL HISTORY: Chest wall injury, initial encounter MQ: XC2_6 EXAM DATE/TIME: 07/12/2022 9:22 AM COMPARISON: No relevant prior studies available. RESULT: Lines, tubes, and devices: None. Lungs and pleura: No consolidation. No lung mass. No pleural effusion. No pneumothorax. Cardiomediastinal silhouette: Normal cardiomediastinal silhouette. Bones and soft tissues: Mild costochondral calcifications are noted. Mild dextroscoliosis of the thoracic spine. DIVISION OF RADIOLOGY Provider, [facility] - 07/12/2022 * * *Final Report* * * DATE OF EXAM: Jul 12 2022 9:22AM [facility] 5291 - XR CHEST 2V FRONTAL/LAT / PROCEDURE REASON: Chest wall injury, initial encounter * * * * Physician Interpretation * * * * EXAMINATION: CHEST RADIOGRAPH (2 VIEW FRONTAL & LATERAL) CLINICAL HISTORY: Chest wall injury, initial encounter MQ: XC2_6 EXAM DATE/TIME: 07/12/2022 9:22 AM COMPARISON: No relevant prior studies available. RESULT: Lines, tubes, and devices: None. Lungs and pleura: No consolidation. No lung mass. No pleural effusion. No pneumothorax. Cardiomediastinal silhouette: Normal cardiomediastinal silhouette. Bones and soft tissues: Mild costochondral calcifications are noted. Mild dextroscoliosis of the thoracic spine. IMPRESSION IMPRESSION: No acute radiographic abnormality. Unix Administrator: PAOLA Transcribe Date/Time: Jul 12 2022 9:27A Dictated by : NICOLAS CELESTIN MD This examination was interpreted and the report reviewed and electronically signed by: NICOLAS CELESTIN MD on Jul 12 2022 9:27AM [facility] Radiology Study observation (narrative) Moustapha ricardo [facility] XR Chest PA and LateralOrder ed By: [facility] Provider on 07-12-2022 [facility] Absolute lymphocyte counton 04-04-2022 Lymphocytes Auto (Unsp spec) [#/Vol] 2.18 10*3/uL 0.83-4.51 [facility] Work Phone: Basophil percentageon 2022 Basophils/100 WBC (Bld) 0.7 % 0-1 [facility] Work Phone: Chloride [Moles/Vol] 111 mmol/L 98-107 [facility] Work Phone: Eosinophils/100 WBC (Bld) 3.0 % 0-5 [facility] Work Phone: Glucose [Mass/Vol] 80 mg/dL 74-106 [facility] Work Phone: Neutrophils (Bld) [#/Vol] 5.0 10*3/uL 2.0-7.7 [facility] Work Phone: Neutrophils/100 WBC (Bld) 61.7 % 47-70 [facility] Work Phone: Potassium [Moles/Vol] 3.5 mmol/L 3.5-5.1 [facility] Work Phone: Sodium [Moles/Vol] 140 mmol/L 136-145 [facility] Work Phone: WBC (Bld) [#/Vol] 8.1 10*3/uL 4.4-11.0 [facility] Work Phone: Basophil percentage 0-5 SEEN /hpf 0-5 [facility] Work Phone: Bilirubin Test strip Ql (U)o n 04-04-2022 Bilirubin Ql (U) Negative Negative [facility] Work Phone: Blood erythrocytes count (nu mber/volume)on 04-04-2022 RBC (Bld) [#/Vol] 3.97 10*6/uL 4.2-[facility].[address] [facility] [facility] [address] [facility] Work Phone: Blood hemoglobin measurement (mass/volume)on 04-04-2022 Hemoglobin (Bld) [Mass/Vol] 11.8 g/dL 12.0-15.0 [facility] Work Phone: Blood lymphocytes/100 leukoc yteson 04-04-2022 Lymphocytes/100 WBC (Bld) 26.9 % 19-41 [facility] Work Phone: Blood monocytes/100 leukocyt eson 04-04-2022 Monocytes/100 WBC (Bld) 7.3 % 0-10 [facility] Work Phone: Blood platelet mean volumeon 04-04-2022 Platelet mean volume (Bld) [Entitic vol] 9.6 fL 6.2-12.0 [facility] Work Phone: Determination of erythrocyte mean corpuscular volume (MCV)on 04-04-2022 MCV (RBC) [Entitic vol] 88.9 fL 81-99 [facility] Work Phone: Hematocrit Auto (Bld) [Volum e fraction]on 04-04-2022 Hematocrit (Bld) [Volume fraction] 35.3 % 37-47 [facility] Work Phone: Ketones Test strip Ql (U)on 04-04-2022 Ketones Ql (U) 50 mg/dl Negative [facility] Work Phone: Laboratory - Chemistry and C hemistry - challengeon 04-04-2022 CO2 [Moles/Vol] 21.0 mmol/L 21.0-32.0 [facility] Work Phone: Urea nitrogen/Creatinine [Mass ratio] 9.3 mg/mg 10-20 [facility] Work Phone: Laboratory - Drug toxicology on 04-04-2022 Amphetamines Ql (U) Negative <1000 ng/mL [facility] Work Phone: Benzodiazepines Ql (U) Negative < 200 ng/mL [facility] Work Phone: Cannabinoids Screen Ql (U) Negative < 50 ng/mL [facility] Work Phone: Cocaine Ql (U) Negative < 300 ng/mL [facility] Work Phone: Opiates Ql (U) Negative < 300 ng/mL [facility] Work Phone: Laboratory - Hematology and Cell countson 04-04-2022 Erythrocyte distribution width (RBC) [Entitic vol] 40.3 fL 35.1-43.9 [facility] Work Phone: Erythrocyte distribution width (RBC) [Ratio] 12.3 % 11.6-14.6 [facility] Work Phone: Immature granulocytes/100 WBC (Bld) 0.400 % 0.0-0.9 [facility] Work Phone: Comment on above: IG% - Immature Granu locytes (promyelocytes, myelocytes and metamyelocytes) > 1% indicates that a LEFT SHIFT is Present. MCH (RBC) [Entitic mass] 29.7 pg 27.0-32.0 [facility] Work Phone: Nucleated RBC/100 WBC (Bld) [Ratio] 0 % 0-5 [facility] Work Phone: MCHC Auto (RBC) [Mass/Vol]on 04-04-2022 MCHC (RBC) [Mass/Vol] 33.4 g/dL 32-36 [facility] Work Phone: Mucus LM Ql (Urine sed)on Mucus Ql (Urine sed) 0 SEEN /hpf [facility] Work Phone: Nitrite Test strip Ql (U)on 04-04-2022 Nitrite Ql (U) Negative Negative [facility] Work Phone: No Panel Informationon 04-04 Estimated Creatinine Clearance Calc 129.23 ml/min [facility] Work Phone: Estimated GFR (MDRD) Amer 176 mL/min >60 [facility] Work Phone: Comment on above: GFR Calc Estimated GFR (MDRD) Non-Af Amer 146 mL/min >60 [facility] Work Phone: Comment on above: Non- GFR Calc MDMA (Ecstasy) Screen Negative < 500 ng/mL [facility] Work Phone: Urine Barbiturates Screen Negative < 200 ng/mL [facility] Work Phone: Urine Drug Screen Comment [facility] Work Phone: Comment on above: CONFIRMATORY TESTING FOR ALL POSITIVE URINE DRUG SCREENRESULTS WILL ONLY BE SENT OUT UPON PHYSICIAN ORDER. VISTA Urine Drug Screen methods provide only preliminaryanalytical test results. A more specific alternate chemicalmethod must be used in order to obtain a confirmedanalytical result. Gas chromatography/mass spectrometery(GC/MS) is the preferred confirmatory method. Clinicalconsideration and professional judgement should be appliedto any drug of abuse test result, particularly whenpreliminary positive results are used. URINE TCA TESTING MUST BE ORDERED SEPARATELY. USE TESTMNEMONIC: [facility] Urine Methadone Screen Negative < 300 ng/mL [facility] Work Phone: Platelets bldon 04-04-2022 Platelets (Bld) [#/Vol] 279 10*3/uL 150-450 [facility] Work Phone: Protein Test strip Ql (U)on 04-04-2022 Protein Ql (U) Negative Negative [facility] Work Phone: Serum or plasma calcium kimber urement (mass/volume)on 04-04-2022 Calcium [Mass/Vol] 8.3 mg/dL 8.5-10.1 [facility] Work Phone: Serum or plasma creatinine m easurement (mass/volume)on 04-04-2022 Creatinine [Mass/Vol] 0.54 mg/dL 0.55-1.02 [facility] Work Phone: Comment on above: The validity of the calculated GFR & GFRAA in patients over 70 years has not been determined. Clinical correlation is essential. Serum or plasma urea nitroge n measurement (mass/volume)on 04-04-2022 Urea nitrogen [Mass/Vol] 5 mg/dL 7-18 [facility] Work Phone: Squamous epithelial cells de tection in urine sediment by light microscopyon 04-04-2022 Epithelial cells.squamous LM Ql (Urine sed) 0-5 SEEN /hpf 5-10 [facility] Work Phone: Thin prep Papanicolaou smear with manual screeningon 04-04-2022 Thin prep Papanicolaou smear with manual screening 8 5-15 [facility] Work Phone: Urine blood detectionon 03-23 RBC Ql (U) Negative Negative [facility] Work Phone: RBC Ql (U) 0 SEEN /hpf 0-5 [facility] Work Phone: Urine clarityon 04-04-2022 Clarity (U) Clear Clear [facility] Work Phone: Urine color determinationon 04-04-2022 Color (U) Yellow Yellow [facility] Work Phone: Urine glucose detectionon Glucose Ql (U) Normal mg/dl Normal [facility] Work Phone: Urine leukocyte esterase det ection by dipstickon 04-04-2022 Leukocyte esterase Test strip Ql (U) Negative Negative [facility] Work Phone: Urine pHon 04-04-2022 pH (U) 6.0 [pH] 5.0 - 8.0 [facility] Work Phone: Urine phencyclidine (PCP) de tectionon 04-04-2022 Phencyclidine Ql (U) Negative < 25 ng/mL [facility] Work Phone: Urine sediment bacteria coun t by microscopy (number/high power field)on 04-04-2022 Bacteria LM.HPF (Urine sed) [#/Area] 2 /[HPF] None Seen [facility] Work Phone: Urine specific gravity measu rementon 04-04-2022 Specific gravity (U) [Rel density] 1.015 1.002-1.030 [facility] Work Phone: Urobilinogen Auto test strip Ql (U)on 04-04-2022 Urobilinogen Ql (U) Normal mg/dl Normal [facility] Work Phone: Whole blood hemoglobin A1c/t otal hemoglobin ratio (mass fraction)on 04-04-2022 HbA1c (Bld) [Mass fraction] 4.5 % 3.8-5.6 [facility] Work Phone: Comment on above: Normal < 5.7 % Predi abetic 5.7 - 6.4 % Diabetic >or= 6.5 % Please note range changes. Absolute lymphocyte counton 04-03-2022 Lymphocytes Auto (Unsp spec) [#/Vol] 1.57 10*3/uL 0.83-4.51 [facility] Work Phone: Basophil percentageon 2022 Basophils/100 WBC (Bld) 0.7 % 0-1 [facility] Work Phone: Bilirubin [Mass/Vol] 0.70 mg/dL 0.20-1.00 [facility] Work Phone: Comment on above: For patients on eltr ombopag therapy, use of Dimension [place] TBIL is not recommended. Chloride [Moles/Vol] 112 mmol/L 98-107 [facility] Work Phone: Eosinophils/100 WBC (Bld) 0.3 % 0-5 [facility] Work Phone: Glucose [Mass/Vol] 86 mg/dL 74-106 [facility] Work Phone: Neutrophils (Bld) [#/Vol] 6.6 10*3/uL 2.0-7.7 [facility] Work Phone: Neutrophils/100 WBC (Bld) 73.8 % 47-70 [facility] Work Phone: [phone] Potassium [Moles/Vol] 3.4 mmol/L 3.5-5.1 [facility] Work Phone: Protein [Mass/Vol] 7.4 g/dL 6.4-8.2 [facility] Work Phone: Sodium [Moles/Vol] 141 mmol/L 136-145 [facility] Work Phone: WBC (Bld) [#/Vol] 8.9 10*3/uL 4.4-11.0 [facility] Work Phone: Blood erythrocytes count (nu mber/volume)on 04-03-2022 RBC (Bld) [#/Vol] 4.32 10*6/uL 4.2-5.4 [facility] Work Phone: Blood hemoglobin measurement (mass/volume)on 04-03-2022 Hemoglobin (Bld) [Mass/Vol] 12.7 g/dL 12.0-15.0 [facility] Work Phone: Blood lymphocytes/100 leukoc yteson 04-03-2022 Lymphocytes/100 WBC (Bld) 17.7 % 19-41 [facility] Work Phone: Blood monocytes/100 leukocyt eson 04-03-2022 Monocytes/100 WBC (Bld) 7.0 % 0-10 [facility] Work Phone: Blood platelet mean volumeon 04-03-2022 Platelet mean volume (Bld) [Entitic vol] 9.6 fL 6.2-12.0 [facility] Work Phone: Determination of erythrocyte mean corpuscular volume (MCV)on 04-03-2022 MCV (RBC) [Entitic vol] 87.3 fL 81-99 [facility] Work Phone: Direct bilirubinon 3 Bilirubin.direct [Mass/Vol] 0.18 mg/dL 0.00-0.30 [facility] Work Phone: Hematocrit Auto (Bld) [Volum e fraction]on 04-03-2022 Hematocrit (Bld) [Volume fraction] 37.7 % 37-47 [facility] Work Phone: Laboratory - Chemistry and C hemistry - challengeon 04-03-2022 ALP [Catalytic activity/Vol] 137 U/L 45-117 [facility] Work Phone: ALT [Catalytic activity/Vol] 22 U/L 13-56 [facility] Work Phone: [phone] CO2 [Moles/Vol] 23.0 mmol/L 21.0-32.0 [facility] Work Phone: Globulin (S) [Mass/Vol] 3.2 g/dL 2.2-4.2 [facility] Work Phone: Lipase [Catalytic activity/Vol] 91 U/L 73-393 [facility] Work Phone: Urea nitrogen/Creatinine [Mass ratio] 4.9 mg/mg 10-20 [facility] Work Phone: Laboratory - Hematology and Cell countson 04-03-2022 Erythrocyte distribution width (RBC) [Entitic vol] 39.7 fL 35.1-43.9 [facility] Work Phone: Erythrocyte distribution width (RBC) [Ratio] 12.3 % 11.6-14.6 [facility] Work Phone: Immature granulocytes/100 WBC (Bld) 0.500 % 0.0-0.9 [facility] Work Phone: Comment on above: IG% - Immature Granu locytes (promyelocytes, myelocytes and metamyelocytes) > 1% indicates that a LEFT SHIFT is Present. MCH (RBC) [Entitic mass] 29.4 pg 27.0-32.0 [facility] Work Phone: Nucleated RBC/100 WBC (Bld) [Ratio] 0 % 0-5 [facility] Work Phone: MCHC Auto (RBC) [Mass/Vol]on 04-03-2022 MCHC (RBC) [Mass/Vol] 33.7 g/dL 32-36 [facility] Work Phone: No Panel Informationon 04-03 Estimated Creatinine Clearance Calc 113.23 ml/min [facility] Work Phone: Estimated GFR (MDRD) Amer 151 mL/min >60 [facility] Work Phone: Comment on above: GFR Calc Estimated GFR (MDRD) Non-Af Amer 125 mL/min >60 [facility] Work Phone: Comment on above: Non- GFR Calc Troponin I High Sensitivity 5 pg/mL 3.0-54.0 [facility] Work Phone: Comment on above: Please Note: New Bree t Units and Gender Specific Reference Ranges. For more information see Policy Stat Procedure [place] High Sensitivity Troponin (TNIH) and attachments. Platelets bldon 04-03-2022 Platelets (Bld) [#/Vol] 292 10*3/uL 150-450 [facility] Work Phone: Serum or plasma albumin kimber urement (mass/volume)on 04-03-2022 Albumin [Mass/Vol] 4.2 g/dL 3.2-5.0 [facility] Work Phone: Serum or plasma calcium kimber urement (mass/volume)on 04-03-2022 Calcium [Mass/Vol] 9.0 mg/dL 8.5-10.1 [facility] Work Phone: Serum or plasma creatinine m easurement (mass/volume)on 04-03-2022 Creatinine [Mass/Vol] 0.62 mg/dL 0.55-1.02 [facility] Work Phone: Comment on above: The validity of the calculated GFR & GFRAA in patients over 70 years has not been determined. Clinical correlation is essential. Serum or plasma urea nitroge n measurement (mass/volume)on 04-03-2022 Urea nitrogen [Mass/Vol] 3 mg/dL 7-18 [facility] Work Phone: Thin prep Papanicolaou smear with manual screeningon 04-03-2022 Thin prep Papanicolaou smear with manual screening 11 U/L 15-37 [facility] Work Phone: Thin prep Papanicolaou smear with manual screening 6 5-15 [facility] Work Phone: LABORATORYOrdered By: Theresa Meek on 03-02-2022 Beta HCG ( test) Ql (U) HCG not detected.Very dilute urine specimens, as indicated by a low specific gravity, may not contain international sales representative levels of hCG.If is still suspected, a first morning urine specimen should be collected 48 hours later and tested. Invalid Interpretation Code Manual Urine SS HCG Qn (U) Negative (03/02/22 6:46 PM) Invalid Interpretation Code Manual Urine SS LABORATORYOrdered By: SYSTEM SYSTEM on 03-02-2022 Troponin I.cardiac DL <= 0.01 ng/mL [Mass/Vol] ng/L Invalid Interpretation Code 0.00 - 34.00 ng/L ADM SS TSH Qn 1.908 mIU/mL Invalid Interpretation Code 0.550 - 4.780 mIU/mL ADM SS Troponin I.cardiac DL <= 0.01 ng/mL [Mass/Vol] ng/L Invalid Interpretation Code 0.00 - 34.00 ng/L ADM SS Albumin BCP dye [Mass/Vol] 3.8 G/dL Invalid Interpretation Code 3.2 - 4.8 G/dL ADM SS Albumin/Globulin [Mass ratio] 1.4 {ratio} Invalid Interpretation Code 0.9 - 1.6 ratio ADM SS ALP [Catalytic activity/Vol] 130 U/L Invalid Interpretation Code 38 - 126 U/L ADM SS ALT No additional P-5'-P [Catalytic activity/Vol] 16 U/L Invalid Interpretation Code 10 - 49 U/L ADM SS AST [Catalytic activity/Vol] 16 U/L Invalid Interpretation Code 8 - 34 U/L ADM SS Basophils (Bld) [#/Vol] 0.1 103/mcL Invalid Interpretation Code 0.0 - 0.3 10^3/mcL Workflow SS Basophils/100 WBC (Bld) 0.8 % Invalid Interpretation Code 0.0 - 2.5 % Workflow SS Bilirubin [Mass/Vol] 0.60 mg/dL Invalid Interpretation Code 0.20 - 1.20 mg/dL ADM SS Calcium [Mass/Vol] 8.8 mg/dL Invalid Interpretation Code 8.7 - 10.4 mg/dL ADM SS Chloride [Moles/Vol] 108 mmol/L Invalid Interpretation Code 98 - 110 mEq/L ADM SS CK [Catalytic activity/Vol] 79 U/L Invalid Interpretation Code 7 - 185 U/L ADM SS CO2 [Moles/Vol] 21 mmol/L Invalid Interpretation Code 22 - 32 mEq/L ADM SS Creatinine [Mass/Vol] 0.54 mg/dL Invalid Interpretation Code 0.50 - 1.20 mg/dL ADM SS Electrolyte Balance 12.0 mEq/L Invalid Interpretation Code 4.0 - 15.0 mEq/L ADM SS Eosinophils (Bld) [#/Vol] 0.0 103/mcL Invalid Interpretation Code 0.0 - 0.7 10^3/mcL Workflow SS Eosinophils/100 WBC (Bld) 0.2 % Invalid Interpretation Code 0.0 - 6.0 % Workflow SS Erythrocyte distribution width (RBC) [Ratio] 12.7 % Invalid Interpretation Code 11.5 - 15.5 % Workflow SS GFR/1.73 sq M.predicted among blacks MDRD (S/P/Bld) [Vol rate/Area] ml/min/1.73sqm Invalid Interpretation Code Chemistry S GFR/1.73 sq M.predicted among non-blacks MDRD (S/P/Bld) [Vol rate/Area] ml/min/1.73sqm Invalid Interpretation Code Chemistry S Globulin 2.8 G/dL Invalid Interpretation Code 1.5 - 3.8 G/dL ADM SS Glucose [Mass/Vol] 102 mg/dL Invalid Interpretation Code 70 - 110 mg/dL ADM SS Hematocrit (Bld) [Volume fraction] 36.0 % Invalid Interpretation Code 34.0 - 46.0 % Workflow SS Hemoglobin (Bld) [Mass/Vol] 12.2 G/dL Invalid Interpretation Code 12.0 - 16.0 G/dL Workflow SS Lymphocytes (Bld) [#/Vol] 1.5 103/mcL Invalid Interpretation Code 0.9 - 4.3 10^3/mcL Workflow SS Lymphocytes/100 WBC (Bld) 16.3 % Invalid Interpretation Code 20.0 - 40.0 % Workflow SS Magnesium [Mass/Vol] 2.4 mg/dL Invalid Interpretation Code 1.6 - 2.4 mg/dL ADM SS MCH (RBC) [Entitic mass] 29.2 pg Invalid Interpretation Code 27.0 - 33.0 pg AH Workflow SS MCHC 34.0 G/dL Invalid Interpretation Code 32.0 - 36.0 G/dL AH Workflow SS MCV (RBC) [Entitic vol] 86.0 fL Invalid Interpretation Code 80.0 - 99.0 fL AH Workflow SS Monocytes (Bld) [#/Vol] 0.5 103/mcL Invalid Interpretation Code 0.1 - 1.4 10^3/mcL AH Workflow SS Monocytes/100 WBC (Bld) 5.6 % Invalid Interpretation Code 2.0 - 13.0 % AH Workflow SS Neutrophils (Bld) [#/Vol] 7.1 103/mcL Invalid Interpretation Code 2.3 - 8.1 10^3/mcL AH Workflow SS Neutrophils/100 WBC (Bld) 77.1 % Invalid Interpretation Code 50.0 - 75.0 % AH Workflow SS Phosphate [Mass/Vol] 3.5 mg/dL Invalid Interpretation Code 2.4 - 5.1 mg/dL ADM SS Platelet mean volume (Bld) [Entitic vol] 7.9 fL Invalid Interpretation Code 6.6 - 10.5 fL Workflow SS Platelets (Bld) [#/Vol] 320 103/mcL Invalid Interpretation Code 150 - 450 10^3/mcL AH Workflow SS Potassium [Moles/Vol] 3.6 mmol/L Invalid Interpretation Code 3.5 - 5.0 mEq/L ADM SS Protein [Mass/Vol] 6.6 G/dL Invalid Interpretation Code 5.7 - 8.2 G/dL ADM SS RBC (Bld) [#/Vol] 4.19 106/mcL Invalid Interpretation Code 4.10 - 5.30 10^6/mcL AH Workflow SS Sodium [Moles/Vol] 141 mmol/L Invalid Interpretation Code 136 - 145 mEq/L ADM SS Troponin I.cardiac DL <= 0.01 ng/mL [Mass/Vol] ng/L Invalid Interpretation Code 0.00 - 34.00 ng/L ADM SS Urea nitrogen [Mass/Vol] 5.0 mg/dL Invalid Interpretation Code 8.0 - 22.0 mg/dL ADM SS Urea nitrogen/Creatinine [Mass ratio] 9.3 ratio Invalid Interpretation Code 10.0 - 22.0 ratio ADM SS WBC (Bld) [#/Vol] 9.2 103/mcL Invalid Interpretation Code 4.5 - 10.8 10^3/mcL Workflow SS LABORATORYOrdered By: Torri colon on 03-02-2022 CK.MB [Mass/Vol] ng/mL Invalid Interpretation Code 0.00 - 5.00 ng/mL AH ADM SS Free T4 index Calc [Mass/Vol] Not Valid Invalid Interpretation Code 0.0 - 4.5 Chemistry S Comment on above: Result Comment: CPK <185 invalidates relative index Gram stain for investigation of transfusion reactionon 07-03-2021 Microscopic observation Gram stain Nom (Unsp spec) [facility] Work Phone: Thin prep Papanicolaou smear with manual screeningon 07-03-2021 Genital Culture Streptococcus group B [facility] Work Phone: Laboratory - Chemistry and C hemistry - challengeon 04-24-2021 HCG ( test) Ql (U) Negative [facility] Work Phone: Cervical or vagninal specime n microscopic examination by cytology stain (reported ason 04-08-2021 Cytology report Cyto stain Doc (Cvx/Vag) Comment [facility] Work Phone: Comment on above: The Pap smear is a s creening test designed to aid in thedetection of premalignant and malignant conditions of theuterine cervix. It is not a diagnostic procedure andshould not be used as the sole means of detecting cervicalcancer. Both false-positive and false-negative reports dooccur. Gram stain for investigation of transfusion reactionon 04-08-2021 Microscopic observation Gram stain Nom (Unsp spec) [facility] Work Phone: Laboratory - Cytologyon 03-23 Moisture Tester Cyto stain Nom (Cvx/Vag) [ID] Comment [facility] Work Phone: Comment on above: Aster Clark chnologist (ASCP) Laboratory - Miscellaneous t estson 04-08-2021 Service comment (Unsp spec) [Interp] Comment [facility] Work Phone: Comment on above: This liquid based Th inPrep(R) pap test was screened withthe use of an image guided system. Service comment (Unsp spec) [Interp] . [facility] Work Phone: No Panel Informationon 04-08 Human Papillomavirus Screen Comment [facility] Work Phone: Comment on above: The HPV DNA reflex c shasta were not met with this specimenresult therefore, no HPV testing was performed.Performed at: [address] [id number] Director: Susie Leigh MD, Phone: [phone] Pathology report final diagnosis Narrative Comment [facility] Work Phone: Comment on above: NEGATIVE FOR INTRAEP ITHELIAL LESION OR MALIGNANCY. Thin prep Papanicolaou smear with manual screeningon 04-08-2021 Genital Culture Streptococcus group B [facility] Work Phone: Genital Culture GNR lactose technology internship [facility] Work Phone: GC/Chlamydia Amp, Uron 03-08 Chlamydia Amplif, Ur Normal [facility] Comment on above: Result Comment: Nega tive for For screening asymptomatic women, a vaginal swab specimen (APTIMA vaginal swab 835684) is optimal. Urine specimens have reduced sensitivity for Chlamydia trachomatis or Neisseria gonorrhoeae infection in female patients without symptoms. This test was developed and its performance characteristics determined by [facility] Pathology and Laboratory Medicine [employer] ([facility]). It has not been cleared or approved by the FDA. [employer] is regulated under CLIA as qualified to perform high complexity testing. This test is used for clinical purposes. It should not be regarded as investigational or for research. Chlamydia For screening asymptomatic women, a vaginal swab specimen (APTIMA vaginal swab 133821) is optimal. Urine specimens have reduced sensitivity for Chlamydia trachomatis or Neisseria gonorrhoeae infection in female patients without symptoms. This test was developed and its performance characteristics determined by [facility]ology and Laboratory Medicine [employer] ([facility]). It has not been cleared or approved by the FDA. [employer] is regulated under CLIA as qualified to perform high complexity testing. This test is used for clinical purposes. It should not be regarded as investigational or for research. trachomatis by For screening asymptomatic women, a vaginal swab specimen (APTIMA vaginal swab 650605) is optimal. Urine specimens have reduced sensitivity for Chlamydia trachomatis or Neisseria gonorrhoeae infection in female patients without symptoms. This test was developed and its performance characteristics determined by [facility] Pathology and Laboratory Medicine [employer] ([facility]). It has not been cleared or approved by the FDA. [facility] is regulated under CLIA as qualified to perform high complexity testing. This test is used for clinical purposes. It should not be regarded as investigational or for research. amplification. For screening asymptomatic women, a vaginal swab specimen (APTIMA vaginal swab 680068) is optimal. Urine specimens have reduced sensitivity for Chlamydia trachomatis or Neisseria gonorrhoeae infection in female patients without symptoms. This test was developed and its performance characteristics determined by [facility] and Laboratory Medicine [employer] ([facility]). It has not been cleared or approved by the FDA. [facility] is regulated under CLIA as qualified to perform high complexity testing. This test is used for clinical purposes. It should not be regarded as investigational or for research. Performed By: #### U GCCT #### [facility] Routine Lab [address] [address] GC Amplification, Ur NGNEG Normal [facility] Comment on above: Performed By: #### U GCCT #### [facility] Routine Lab [address] [id number] GC/Chlamydia Amplifon 2020 Chlamydia Amplif CLNEG Normal [facility] Reference Lab GC Amplification NGNEG Normal [facility] Reference [facility] GC/Chlam Amp Source Vaginal Normal [facility] Reference Lab Ova and Parasite Exon 2020 Ova and Parasite Ex Specimen Desc: STOOL Sp. Request/Comment: OPKIT Culture Result NOPARA Report Status 06/27/2020 FINAL Normal [facility] Vag Pathogens DNAon 06-23-19 21 Jennifer sp DNA Probe NEGCAN Normal Negativ e for Jennifer species by DNA Probe [facility] Comment on above: Performed By: #### V AGDNA #### [facility] Microbiology [address] [place], [place] [id number] Adrien vag DNA Probe NEGGAR Normal Negative for Gardnerella vaginalis by DNA Probe [facility] Comment on above: Performed By: #### V AGDNA #### [facility] [address] [address] Trich vag DNA Probe NEGTRI Normal Negative for Trichomonas vaginalis by DNA Probe [facility] Comment on above: Performed By: #### V AGDNA #### [facility] [address] [address] GC/Chlamydia Amp, Uron 06-15 Chlamydia Amplif, Ur Normal [facility] Comment on above: Result Comment: Nega tive for For screening asymptomatic women, a vaginal swab specimen (APTIMA vaginal swab 901765) is optimal. Urine specimens have reduced sensitivity for Chlamydia trachomatis or Neisseria gonorrhoeae infection in female patients without symptoms. This test was developed and its performance characteristics determined by [facility] Pathology and Laboratory Medicine [employer] ([facility]). It has not been cleared or approved by the FDA. [facility] is regulated under CLIA as qualified to perform high complexity testing. This test is used for clinical purposes. It should not be regarded as investigational or for research. Chlamydia For screening asymptomatic women, a vaginal swab specimen (APTIMA vaginal swab 137144) is optimal. Urine specimens have reduced sensitivity for Chlamydia trachomatis or Neisseria gonorrhoeae infection in female patients without symptoms. This test was developed and its performance characteristics determined by [facility] and Laboratory Medicine [employer] ([facility]). It has not been cleared or approved by the FDA. [facility] is regulated under CLIA as qualified to perform high complexity testing. This test is used for clinical purposes. It should not be regarded as investigational or for research. trachomatis by For screening asymptomatic women, a vaginal swab specimen (APTIMA vaginal swab 599455) is optimal. Urine specimens have reduced sensitivity for Chlamydia trachomatis or Neisseria gonorrhoeae infection in female patients without symptoms. This test was developed and its performance characteristics determined by [facility] and Laboratory Medicine [employer] ([facility]). It has not been cleared or approved by the FDA. [facility] is regulated under CLIA as qualified to perform high complexity testing. This test is used for clinical purposes. It should not be regarded as investigational or for research. amplification. For screening asymptomatic women, a vaginal swab specimen (APTIMA vaginal swab 383784) is optimal. Urine specimens have reduced sensitivity for Chlamydia trachomatis or Neisseria gonorrhoeae infection in female patients without symptoms. This test was developed and its performance characteristics determined by [facility] Pathology and Laboratory Medicine [employer] ([facility]). It has not been cleared or approved by the FDA. [employer] is regulated under CLIA as qualified to perform high complexity testing. This test is used for clinical purposes. It should not be regarded as investigational or for research. Performed By: #### U GCCT #### [facility] Routine Lab [address], [place] [id number] GC Amplification, Ur NGNEG Normal [facility] Comment on above: Performed By: #### U GCCT #### [facility] Routine Lab [address] [place], [place] [address] Therapy Communicationon 02-20 Therapy Communication Message NAPOLEON WILLIS was (D/C)- last seen: 11/17/19. Patient was seen for initial evaluation on 11/17/19 and then failed to return for scheduled treatment sessions. She will be discharged at this time in accordance with clinic's attendance policy. Signatures Electronically signed by : Jacki Perez PT; Mar 05 2020 1:29PM EST (Author) Normal [employer] Therapy Communicationon 11-21 Therapy Communication Message NAPOLEON WILLIS no showed today . THerapist attempted to call patient but no answer and no identifiable voice message therefore therapist just asked patient to return call. Signatures Electronically signed by : Jacki Perez PT; Dec 08 2019 1:40PM EST (Author) Normal [employer] Therapy Communicationon 11-21 Therapy Communication Message NAPOLEON WILLIS no showed today . Patient no show no call. Signatures Electronically signed by : Victoria Ware PTA; Dec 01 2019 2:34PM EST (Author) Normal [employer] SURGICALon 11-25-2019 SURGICAL COLON BX 10 CM. - CO KYLE POLYP @ 10 CM FINAL DIAGNOSIS: 10 CM COLON POLYP BIOPSY WITH POLYPOID PORTION OF BENIGN COLONIC MUCOSA. NO MALIGNANCY IDENTIFIED. Dictated by: JO ARIAS D.O MICROSCOPIC DESCRIPTION: Slide reviewed. MAGDY/halle 11/30/2019 GROSS DESCRIPTION: Specimen is received in the appropriately labeled container and is designated as polyp at 10 cm. Specimen consists of one portion of garay tissue 2 mm in diameter. (1,ns) MAGDY/formerly [facility] 11/29/2019 CLINICAL DATA: PROCEDURE: Colonoscopy PRE-OP: Not given POST-OP: Not given HISTORY: N/A Signed *Electronically Signed* JO ARIAS D.O 11/30/19 1717 [facility] Comment on above: Performed By: #### P -S #### [facility] - [facility] [address] [id number] 11-24-2019 COVID19 SEE SEPARATE REPORT [facility] Comment on above: Result Comment: SPEC IMEN SENT TO A MISCELLANEOUS LAB SEE SCANNED RESULTS FOR TESTING FACILITY INFORMATION PT Initial Evaluationon 10-22 PT Initial Evaluation Therapy Diagnosis Assessed Pelvic pain in female (625.9) (R10.2) Plan of Care Goals: Goals set and discussed today. Patient will have improved strength and endurance of pelvic floor to complete 50 reps of kegels /day without compensation....2 weeks Patient will have improved strength and endurance of core muscles to complete 100 reps of kegels per day for 1 week...4 weeks Patient will demonstrate good ability to isolate and contract Transverse ABdominus muscle to assist with pelvic stabilization during lifting, carrying, exercises to help reduce urinary leakage and to support back...4 weeks Patient will be indep with HEP to improve strnegth, coordination and flexibility to reduce/eliminate pelvic pain...4 weeks Paitent will have 2/10 pelvic pain or less during intercourse...4 weeks patient will have good muscle length/flexibility of hip/pelvic musculature to reduce pelvic pain to 2/10 or less with ADLs Planned interventions include: education/instruction, home program, manual therapy, neuromuscular re-education and therapeutic exercises. Frequency and duration: 1 time(s) a week, for 3 weeks, for 3 visits . then up to additional 3 visits as needed up to 8 weeks. Potential to achieve rehab goals is good Plan of care was developed with input and agreement by the patient. Assessment Patient presents with weakness and difficulty relaxing pelvic floor musculature. She would benefit from uptraining and downtraining of the pelvic floor musculature. Due to her inability to relax her pelvic floor musculature it is likely contributing to UTIs as she has difficulty fully emptying bladder as well as constipation as she has dififculty relaxing for defecation. Patient also presents with significant weakness in Transvers abdominus musculature. patient's hip/pelvic musculature is tight and she would bneefit from stretching as well. Skilled intervention will begin once per week. Clinical Presentation: Stable and/or uncomplicated characteristics. Level of Complexity: low Problem List: coordination, decreased knowledge of HEP, flexibility, pain, participation restrictions and strength. Reason For Visit Initial Evaluation . 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 Referred by: Tonia Iverson ELECTRICAL SYSTEMS DESIGNER-C Adult Risk Screening There are no spiritual/cultural practices/values/needs that are important to know Pain Scale: On a scale of 0 to 10, the patient rates the pain at 4. Please identify location of pain: pelvic area. Pain Quality: burning and sharp. Insurance Insurance reviewed Visit number: 1 [facility] services Dx:R10.2 pelvic pain Supervising PT: Jacki Perez PT, MPT Referral: HARI Roque (no follow up) Subjective Current Episode of Functional Impairment and/or Pain Date of surgery: 02/07/19 Precautions: none. Pelvic History: Injury Onset: 02/07/19. Chief Complaint/Description of Symptoms: pelvic pain. HPI: Patient reports pelvic pain since having with her son in Jan but states pain has worsened the past couple of months. States she gets frequent UTI and had one 2 weeks ago which has cleared up. states she has chronic constipation and will see GI and have colonoscopy next week. Denies urinary leakage. Pain: Since onset, her symptoms are not improving. NAPOLEON does not have pain when emptying her bladder. Pain with [place]: Yes. Bladder/Bowel: Excessive Urinary Urgency: occasionally Unintentional Urine/Stool Loss: never Leakage Amount: small Fluid Intake: Fluid intake-8 oz/day: 6-8, 1-2 soda number 8oz caffeinated/day Difficulty Initiating Urine Flow: not at all Slow/Weak Urine Stream: not at all NAPOLEON is not able to void completely. She has frequent UTI's. Has constipation/straining or incomplete bowel movements. She is taking stool softeners or fiber supplements. Objective Ortho standing iliac crest height symmetrical supine leg length symmetrical muscle length: hamstrings, hip flexors mild to mod deficits, rotators mild to mod deficits levator Ani: palpated at gluteal cleft: patient has difficulty isolating and aditi, tends to compensate with glut's, very weak contraction; has much difficulty fully relaxing pelvic floor following contraction Transverse abdominus: palpated in plantigrade with cues and instruction, patient has difficulty isolating and aditi, tends to compensate with Rectus abdominus;. Treatment Time in clinic started at 1255 Time in clinic ended at 1345 Total time in clinic is 50 minutes. Total timed code time is 26 minutes. Treatment Performed Today:. -basic kegels (1 second hold/relax) with instruction, imagery and palpting levator Ani at gluteal cleft x10 and instructed for HEP 10 reps 3x/daym cues to not compensate with glut's, cues, imagery and exhalation to emphasize and improve pelvic floor relaxation - elevator kegels: 2-levels, with instruction, cuing, and imagery; palpating Levator Ani at gluteal cleft in L S/L; patient with some difficulty performing, instructed for HEP 10 reps 1x/day -long hold kegel: 3 sec holds x8 and instructed for HEP, cues to reduce compensation -deep abdominal breathing -TrA plantigrade: tactile and verbal cues and instruction x10, instructed for HEP 10 reps 2x/day A next visit: hamstring, piriformis, hip flexor, quad , butterfly stretches . Response to treatment: improved knowledge and understanding of condition. Patient was able to complete today's treatment with some difficulty. Evaluation Code: 10625 PT Eval: Low Complexity, 23 min(s). Timed: 47345 Therapeutic Exercises, 26 min(s), 2 unit(s). Signatures Electronically signed by : Jacki Perez PT; Nov 18 2019 11:32AM EST (Author) Normal [facility] EMERGENCY DEPARTMENTon 06-23 [place] [address] HEALTH INFORMATION MANAGEMENT EMERGENCY DEPARTMENT : [id number] Signed Patient: NAPOLEON WILLIS Acct:[id number] MRUN: [id number] : 1995 Sex: F Loc: ED ADM [...] Cardiology: Absent: chest pain, edema - GI Gastrointestinal/Abdomi nal: Absent: abdominal pain, diarrhea, nausea, vomiting - [...] tender, normal bowel sounds. Absent: guarding, rebound, rigid, mass, bruit - Extremities Exam Extremities exam: [...] mood - Skin Skin Color: Present: Normal, [place] Skin exam: Present: warm, dry - Expanded [...] the Emergency Department visit today were above 120/80. You need to follow up with your [...] Reviewed and Agreed With?: Yes - Dictation Amendments/Documentatio n: [employer] Document Only Electronically Generated By: LETITIA SILVA PA-C Generated Date/Time: 05/23/17 1619 Electronically Signed By: LETITIA SILVA PA-C Signed Date/Time 05/23/17 1623 Co Signed Electronically By: Co Signed Date/Time: 05/29/17 0741 05/29/17 0741 CC: АННА [place] Normal [facility] Bilirubin Confirmationon Bilirubin (direct) Negative Normal Negative [facility] Comment on above: Performed By: #### I TRAINING PROGRAM ASSISTANT ####[address] [address] Influenza A B (Rapid)on Influenza A antigen Negative Normal (Negative) [facility] Comment on above: Performed By: #### F LUAB ####[address] [address] Influenza B antigen Negative Normal (Negative) [facility] Comment on above: Performed By: #### F LUAB ####[address] [address] (Urine)on 05-25-19 18 HCG ( test) Ql (U) Negative Normal Negative [facility] Comment on above: Performed By: #### P REGU ####[address] [address] UA w/reflex cultureon 2017 Bilirubin Ql (U) 2+ Abnormal Negative [facility] Comment on above: Result Comment: ?Met abolites of etodolac or high concentration of urobilinogen may causefalse positive results. Correlate clinically.? Performed By: #### U ARC ####[address] [address] Blood Negative Normal Negative [facility] Comment on above: Performed By: #### U ARC ####[address] [address] Glucose mass conc NORMAL Normal Negative [place] Comment on above: Performed By: #### U ARC ####[address] [address] Protein Negative Normal Negative [facility] Comment on above: Performed By: #### U ARC ####[address] [address] Urine, appearance CLEAR Normal Clear [place] [facility] Comment on above: Performed By: #### U ARC ####[address] [address] Urine, color aby Normal Yellow [facility] Comment on above: Performed By: #### U ARC ####[address] [address] Urine, ketones presence Negative Normal Negative [facility] Comment on above: Performed By: #### U ARC ####[address] [address] Urine, nitrite presence Negative Normal Negative [facility] Comment on above: Performed By: #### U ARC ####[address] [address] Urine, pH 5 [pH] Normal [facility] Comment on above: Performed By: #### U ARC ####[address] [address] Urine, specific gravity 1.020 Normal 1.015-1.025 [facility] Comment on above: Performed By: #### U ARC ####[address] [address] Urine, urobilinogen NORMAL Normal Normal-1.0 [facility] Comment on above: Performed By: #### U ARC ####[address] [address] WBC (Leukocytes) Negative Normal Negative [facility] Comment on above: Performed By: #### U ARC ####[address] [address] Culture, urine Bacteria identified Cx Nom (U) Positive [facility] Work Phone: Gram stain for investigation of transfusion reaction Microscopic observation Gram stain Nom (Unsp spec) [facility] Work Phone: Thin prep Papanicolaou smear with manual screening Cytopathology procedure, preparation of smear, genital source Normal genital sean isolated [facility] Work Phone: Thin prep Papanicolaou smear with manual screening Normal genital sean isolated [facility] Work Phone: Thin prep Papanicolaou smear with manual screening [facility] Work Phone: Vital Signs Date Time Vital Sign Value Performing Clinician Facility 10-03-2024 14:54-0400 Body height 149.86 cm Hoda Ungerer ELECTRICAL SYSTEMS DESIGNER-C Work Phone: [facility] 10-03-2024 14:46-0400 Body mass index (BMI) [Ratio] 29.2 kg/m2 Hoda Ungerer ELECTRICAL SYSTEMS DESIGNER-C Work Phone: [facility] 10-03-2024 14:46-0400 Body weight 65.54 kg Hoda Ungerer ELECTRICAL SYSTEMS DESIGNER-C Work Phone: [facility] 10-03-2024 14:46-0400 Diastolic blood pressure 74 mm[Hg] Hoda Ungerer ELECTRICAL SYSTEMS DESIGNER-C Work Phone: [facility] 10-03-2024 14:46-0400 Systolic blood pressure 122 mm[Hg] Hoda Ungerer ELECTRICAL SYSTEMS DESIGNER-C Work Phone: [facility] 09-12-2024 11:58-0400 Body height 149.86 cm Hoda Ungerer ELECTRICAL SYSTEMS DESIGNER-C Work Phone: [facility] 09-12-2024 11:52-0400 Body mass index (BMI) [Ratio] 29.2 kg/m2 Hoda Ungerer ELECTRICAL SYSTEMS DESIGNER-C Work Phone: [facility] 09-12-2024 11:52-0400 Body weight 65.77 kg Hoda Ungerer ELECTRICAL SYSTEMS DESIGNER-C Work Phone: [facility] 09-12-2024 11:52-0400 Diastolic blood pressure 91 mm[Hg] Hoda Ungerer ELECTRICAL SYSTEMS DESIGNER-C Work Phone: [facility] 09-12-2024 11:52-0400 Systolic blood pressure 126 mm[Hg] Hoda Ungerer ELECTRICAL SYSTEMS DESIGNER-C Work Phone: [facility] 08-08-2024 10:49-0400 Body height 149.86 cm Hoda Ungerer ELECTRICAL SYSTEMS DESIGNER-C Work Phone: [facility] 08-08-2024 10:47-0400 Body mass index (BMI) [Ratio] 29.7 kg/m2 Hoda Ungerer ELECTRICAL SYSTEMS DESIGNER-C Work Phone: [facility] 08-08-2024 10:47-0400 Body weight 66.67 kg Hoda Ungerer ELECTRICAL SYSTEMS DESIGNER-C Work Phone: [facility] 08-08-2024 10:47-0400 Diastolic blood pressure 82 mm[Hg] Hoda Ungerer ELECTRICAL SYSTEMS DESIGNER-C Work Phone: [facility] 08-08-2024 10:47-0400 Systolic blood pressure 113 mm[Hg] Hoda Ungerer ELECTRICAL SYSTEMS DESIGNER-C Work Phone: [facility] 07-28-2024 08:28-0400 Body mass index (BMI) [Ratio] 29.2 kg/m2 Hoda Ungerer ELECTRICAL SYSTEMS DESIGNER-C Work Phone: [facility] 07-28-2024 08:28-0400 Body temperature 98.5 [degF] Hoda Ungerer ELECTRICAL SYSTEMS DESIGNER-C Work Phone: [facility] 07-28-2024 08:28-0400 Body weight 65.77 kg Hoda Ungerer ELECTRICAL SYSTEMS DESIGNER-C Work Phone: [facility] 07-28-2024 08:28-0400 Diastolic blood pressure 65 mm[Hg] Hoda Ungerer ELECTRICAL SYSTEMS DESIGNER-C Work Phone: [facility] 07-28-2024 08:28-0400 Heart rate 104 /min Hoda Ungerer ELECTRICAL SYSTEMS DESIGNER-C Work Phone: [facility] 07-28-2024 08:28-0400 SaO2% (BldA) [Mass fraction] 99 % Hoda Ungerer ELECTRICAL SYSTEMS DESIGNER-C Work Phone: [facility] 07-28-2024 08:28-0400 Systolic blood pressure 99 mm[Hg] Hoda Ungerer ELECTRICAL SYSTEMS DESIGNER-C Work Phone: [facility] 07-25-2024 11:55-0400 Body height 149.86 cm Hoda Ungerer ELECTRICAL SYSTEMS DESIGNER-C Work Phone: [facility] 07-25-2024 11:54-0400 Body mass index (BMI) [Ratio] 29 kg/m2 Hoda Ungerer ELECTRICAL SYSTEMS DESIGNER-C Work Phone: [facility] 07-25-2024 11:54-0400 Body weight 65.31 kg Hoda Ungerer ELECTRICAL SYSTEMS DESIGNER-C Work Phone: [facility] 07-25-2024 11:54-0400 Diastolic blood pressure 74 mm[Hg] Hoda Ungerer ELECTRICAL SYSTEMS DESIGNER-C Work Phone: [facility] 07-25-2024 11:54-0400 Systolic blood pressure 109 mm[Hg] Hoda Ungerer ELECTRICAL SYSTEMS DESIGNER-C Work Phone: [facility] 06-29-2024 11:26-0400 Body mass index (BMI) [Ratio] 29.3 kg/m2 Hoda Ungerer ELECTRICAL SYSTEMS DESIGNER-C Work Phone: [facility] 06-29-2024 11:26-0400 Body weight 65.88 kg Hoda Ungerer ELECTRICAL SYSTEMS DESIGNER-C Work Phone: [facility] 06-29-2024 11:26-0400 Diastolic blood pressure 70 mm[Hg] Hoda Ungerer ELECTRICAL SYSTEMS DESIGNER-C Work Phone: [facility] 06-29-2024 11:26-0400 Systolic blood pressure 120 mm[Hg] Hoda Ungerer ELECTRICAL SYSTEMS DESIGNER-C Work Phone: [facility] 06-23-2024 13:55-0400 Body height 149.86 cm ELECTRICAL SYSTEMS DESIGNER. Hoda Ungerer ELECTRICAL SYSTEMS DESIGNER-C Work Phone: [facility] 06-23-2024 13:55-0400 Body mass index (BMI) [Ratio] 28.8 kg/m2 ELECTRICAL SYSTEMS DESIGNER. Hoda Ungerer ELECTRICAL SYSTEMS DESIGNER-C Work Phone: [facility] 06-23-2024 13:55-0400 Body weight 64.86 kg ELECTRICAL SYSTEMS DESIGNER. Hoda Ungerer ELECTRICAL SYSTEMS DESIGNER-C Work Phone: [facility] 06-23-2024 13:55-0400 Diastolic blood pressure 79 mm[Hg] ELECTRICAL SYSTEMS DESIGNER. Hoda Ungerer ELECTRICAL SYSTEMS DESIGNER-C Work Phone: [facility] 06-23-2024 13:55-0400 Systolic blood pressure 120 mm[Hg] ELECTRICAL SYSTEMS DESIGNER. Hoda Ungerer ELECTRICAL SYSTEMS DESIGNER-C Work Phone: [facility] 05-18-2024 08:19-0500 Body height 149.86 cm ELECTRICAL SYSTEMS DESIGNER. Hoda Ungerer ELECTRICAL SYSTEMS DESIGNER-C Work Phone: [facility] 05-18-2024 08:17-0500 Body mass index (BMI) [Ratio] 28 kg/m2 ELECTRICAL SYSTEMS DESIGNER. Hoda Ungerer ELECTRICAL SYSTEMS DESIGNER-C Work Phone: [facility] 05-18-2024 08:17-0500 Body weight 63.04 kg ELECTRICAL SYSTEMS DESIGNER. Hoda Ungerer ELECTRICAL SYSTEMS DESIGNER-C Work Phone: [facility] 05-18-2024 08:17-0500 Diastolic blood pressure 80 mm[Hg] ELECTRICAL SYSTEMS DESIGNER. Hoda Ungerer ELECTRICAL SYSTEMS DESIGNER-C Work Phone: [facility] 05-18-2024 08:17-0500 Systolic blood pressure 119 mm[Hg] ELECTRICAL SYSTEMS DESIGNER. Hoda Ungerer ELECTRICAL SYSTEMS DESIGNER-C Work Phone: [facility] 05-02-2024 08:35-0500 Body mass index (BMI) [Ratio] 27.7 kg/m2 ELECTRICAL SYSTEMS DESIGNER. Hoda Ungerer ELECTRICAL SYSTEMS DESIGNER-C Work Phone: [facility] 05-02-2024 08:35-0500 Body weight 62.31 kg ELECTRICAL SYSTEMS DESIGNER. Hoda Ungerer ELECTRICAL SYSTEMS DESIGNER-C Work Phone: [facility] 05-02-2024 08:35-0500 Diastolic blood pressure 88 mm[Hg] ELECTRICAL SYSTEMS DESIGNER. Hoda Smith ELECTRICAL SYSTEMS DESIGNER-C Work Phone: [facility] 05-02-2024 08:35-0500 Systolic blood pressure 124 mm[Hg] ELECTRICAL SYSTEMS DESIGNER. Hoda Smith ELECTRICAL SYSTEMS DESIGNER-C Work Phone: [facility] 04-27-2024 08:27-0500 Body mass index (BMI) [Ratio] 27.19 kg/m2 Renetta Lianger PA-C Work Phone: [facility] 04-27-2024 08:27-0500 Body weight 61.05 kg Renetta Lianger PA-C Work Phone: [facility] 04-27-2024 08:27-0500 Diastolic blood pressure 86 mm[Hg] Renettaemy Lianger PA-C Work Phone: [facility] 04-27-2024 08:27-0500 Heart rate 104 /min Renetta Lianger PA-C Work Phone: [facility] 04-27-2024 08:27-0500 Respiratory rate 18 /min Renetta Lianger PA-C Work Phone: [facility] 04-27-2024 08:27-0500 SaO2% (BldA) [Mass fraction] 97 % Renetta Lianger PA-C Work Phone: [facility] 04-27-2024 08:27-0500 Systolic blood pressure 119 mm[Hg] Renetta Lianger PA-C Work Phone: [facility] 04-21-2024 08:20-0500 Body mass index (BMI) [Ratio] 27.8 kg/m2 ELECTRICAL SYSTEMS DESIGNER. Hoda Smith ELECTRICAL SYSTEMS DESIGNER-C Work Phone: [facility] 04-21-2024 08:20-0500 Body temperature 99.6 [degF] ELECTRICAL SYSTEMS DESIGNER. Hoda Smith ELECTRICAL SYSTEMS DESIGNER-C Work Phone: [facility] 04-21-2024 08:20-0500 Body weight 62.59 kg ELECTRICAL SYSTEMS DESIGNER. Hoda Ungerer ELECTRICAL SYSTEMS DESIGNER-C Work Phone: [facility] 04-21-2024 08:20-0500 Diastolic blood pressure 70 mm[Hg] ELECTRICAL SYSTEMS DESIGNER. Hoda Ungerer ELECTRICAL SYSTEMS DESIGNER-C Work Phone: [facility] 04-21-2024 08:20-0500 Heart rate 96 /min ELECTRICAL SYSTEMS DESIGNER. Hoda Ungerer ELECTRICAL SYSTEMS DESIGNER-C Work Phone: [facility] 04-21-2024 08:20-0500 Respiratory rate 16 /min ELECTRICAL SYSTEMS DESIGNER. Hoda Ungerer ELECTRICAL SYSTEMS DESIGNER-C Work Phone: [facility] 04-21-2024 08:20-0500 SaO2% (BldA) [Mass fraction] 99 % ELECTRICAL SYSTEMS DESIGNER. Hoda Ungerer ELECTRICAL SYSTEMS DESIGNER-C Work Phone: [facility] 04-21-2024 08:20-0500 Systolic blood pressure 116 mm[Hg] ELECTRICAL SYSTEMS DESIGNER. Hoda Ungerer ELECTRICAL SYSTEMS DESIGNER-C Work Phone: [facility] 04-20-2024 08:36-0500 Body mass index (BMI) [Ratio] 27.8 kg/m2 ELECTRICAL SYSTEMS DESIGNER. Hoda Ungerer ELECTRICAL SYSTEMS DESIGNER-C Work Phone: [facility] 04-20-2024 08:36-0500 Body weight 62.59 kg ELECTRICAL SYSTEMS DESIGNER. Hoda Ungerer ELECTRICAL SYSTEMS DESIGNER-C Work Phone: [facility] 04-20-2024 08:36-0500 Diastolic blood pressure 79 mm[Hg] ELECTRICAL SYSTEMS DESIGNER. Hoda Ungerer ELECTRICAL SYSTEMS DESIGNER-C Work Phone: [facility] 04-20-2024 08:36-0500 Systolic blood pressure 115 mm[Hg] ELECTRICAL SYSTEMS DESIGNER. Hoda Ungerer ELECTRICAL SYSTEMS DESIGNER-C Work Phone: [facility] 02-29-2024 08:20-0500 Body mass index (BMI) [Ratio] 27.4 kg/m2 ELECTRICAL SYSTEMS DESIGNER. Hoda Valdezerer ELECTRICAL SYSTEMS DESIGNER-C Work Phone: [facility] 02-29-2024 08:20-0500 Body temperature 98.6 [degF] ELECTRICAL SYSTEMS DESIGNER. Hoda Valdezerer ELECTRICAL SYSTEMS DESIGNER-C Work Phone: [facility] 02-29-2024 08:20-0500 Body weight 61.68 kg ELECTRICAL SYSTEMS DESIGNER. Hoda Valdezerer ELECTRICAL SYSTEMS DESIGNER-C Work Phone: [facility] 02-29-2024 08:20-0500 Diastolic blood pressure 82 mm[Hg] ELECTRICAL SYSTEMS DESIGNER. Hoda Valdezerer ELECTRICAL SYSTEMS DESIGNER-C Work Phone: [facility] 02-29-2024 08:20-0500 Heart rate 92 /min ELECTRICAL SYSTEMS DESIGNER. Hoda Valdezerer ELECTRICAL SYSTEMS DESIGNER-C Work Phone: [facility] 02-29-2024 08:20-0500 Respiratory rate 15 /min ELECTRICAL SYSTEMS DESIGNER. Hoda Valdezerer ELECTRICAL SYSTEMS DESIGNER-C Work Phone: [facility] 02-29-2024 08:20-0500 SaO2% (BldA) [Mass fraction] 99 % ELECTRICAL SYSTEMS DESIGNER. Hoda Valdezerer ELECTRICAL SYSTEMS DESIGNER-C Work Phone: [facility] 02-29-2024 08:20-0500 Systolic blood pressure 122 mm[Hg] ELECTRICAL SYSTEMS DESIGNER. Hoda Valdezerer ELECTRICAL SYSTEMS DESIGNER-C Work Phone: [facility] 02-10-2024 09:24-0500 Body mass index (BMI) [Ratio] 26.9 kg/m2 ELECTRICAL SYSTEMS DESIGNER. Hoda Valdezerer ELECTRICAL SYSTEMS DESIGNER-C Work Phone: [facility] 02-10-2024 09:24-0500 Body weight 60.55 kg ELECTRICAL SYSTEMS DESIGNER. Hoda Valdezerer ELECTRICAL SYSTEMS DESIGNER-C Work Phone: [facility] 02-10-2024 09:24-0500 Diastolic blood pressure 77 mm[Hg] ELECTRICAL SYSTEMS DESIGNER. Hoda Valdezerer ELECTRICAL SYSTEMS DESIGNER-C Work Phone: [facility] 02-10-2024 09:24-0500 Systolic blood pressure 118 mm[Hg] ELECTRICAL SYSTEMS DESIGNER. Hoda Valdezerer ELECTRICAL SYSTEMS DESIGNER-C Work Phone: [facility] 07-17-2023 07:32-0400 Body temperature 97.5 [degF] ELECTRICAL SYSTEMS DESIGNER. Hoda Ungerer Work Phone: [facility] 07-17-2023 07:32-0400 Diastolic blood pressure 69 mm[Hg] ELECTRICAL SYSTEMS DESIGNER. Hoda Ungerer Work Phone: [facility] 07-17-2023 07:32-0400 Heart rate 111 /min ELECTRICAL SYSTEMS DESIGNER. Hoda Ungerer Work Phone: [facility] 07-17-2023 07:32-0400 SaO2% (BldA) [Mass fraction] 97 % ELECTRICAL SYSTEMS DESIGNER. Hoda Ungerer Work Phone: [facility] 07-17-2023 07:32-0400 Systolic blood pressure 120 mm[Hg] ELECTRICAL SYSTEMS DESIGNER. Hoad Ungerer Work Phone: [facility] 07-17-2023 07:27-0400 Body height 149.86 cm ELECTRICAL SYSTEMS DESIGNER. Hoda Ungerer Work Phone: [facility] 07-17-2023 07:27-0400 Body mass index (BMI) [Ratio] 32.9 kg/m2 ELECTRICAL SYSTEMS DESIGNER. Hoda Ungerer Work Phone: [facility] 07-17-2023 07:27-0400 Body weight 74.04 kg ELECTRICAL SYSTEMS DESIGNER. Hoda Ungerer Work Phone: [facility] 07-17-2023 07:27-0400 Respiratory rate 17 /min ELECTRICAL SYSTEMS DESIGNER. Hoda Ungerer Work Phone: [facility] 07-16-2023 11:49-0400 Body mass index (BMI) [Ratio] 33.4 kg/m2 ELECTRICAL SYSTEMS DESIGNER. Hoda Ungerer Work Phone: [facility] 07-16-2023 11:49-0400 Body weight 75.01 kg ELECTRICAL SYSTEMS DESIGNER. Hoda Ungerer Work Phone: [facility] 07-16-2023 11:49-0400 Diastolic blood pressure 73 mm[Hg] ELECTRICAL SYSTEMS DESIGNER. Hoda Ungerer Work Phone: [facility] 07-16-2023 11:49-0400 Systolic blood pressure 123 mm[Hg] ELECTRICAL SYSTEMS DESIGNER. Hoda Ungerer Work Phone: [facility] 07-09-2023 09:25-0400 Body mass index (BMI) [Ratio] 32.8 kg/m2 ELECTRICAL SYSTEMS DESIGNER. Hoda Ungerer Work Phone: [facility] 07-09-2023 09:25-0400 Body weight 73.7 kg ELECTRICAL SYSTEMS DESIGNER. Hoda Ungerer Work Phone: [facility] 07-09-2023 09:25-0400 Diastolic blood pressure 77 mm[Hg] ELECTRICAL SYSTEMS DESIGNER. Hoda Ungerer Work Phone: [facility] 07-09-2023 09:25-0400 Systolic blood pressure 115 mm[Hg] ELECTRICAL SYSTEMS DESIGNER. Hoda Ungerer Work Phone: [facility] 07-03-2023 08:53-0400 Body mass index (BMI) [Ratio] 32.5 kg/m2 ELECTRICAL SYSTEMS DESIGNER. Hoda Ungerer Work Phone: [facility] 07-03-2023 08:53-0400 Body weight 73.08 kg ELECTRICAL SYSTEMS DESIGNER. Hoda Ungerer Work Phone: [facility] 07-03-2023 08:53-0400 Diastolic blood pressure 72 mm[Hg] ELECTRICAL SYSTEMS DESIGNER. Hoda Ungerer Work Phone: [facility] 07-03-2023 08:53-0400 Systolic blood pressure 104 mm[Hg] ELECTRICAL SYSTEMS DESIGNER. Hoda Ungerer Work Phone: [facility] 06-15-2023 14:59-0400 Diastolic blood pressure 62 mm[Hg] Dr. Beryl Mcmillan Work Phone: [facility] 06-15-2023 14:59-0400 Heart rate 98 /min Dr. Beryl Mcmillan Work Phone: [facility] 06-15-2023 14:59-0400 Systolic blood pressure 112 mm[Hg] Dr. Beryl Mcmillan Work Phone: [facility] 06-15-2023 13:45-0400 Body height 149.[address] Beryl Mcmillan Work Phone: [facility] 06-15-2023 13:45-0400 Body mass index (BMI) [Ratio] 31.3 kg/m2 Dr. Beryl Mcmillan Work Phone: [facility] 06-15-2023 13:45-0400 Body temperature 97.9 [degF] Dr. Beryl Mcmillan Work Phone: [facility] 06-15-2023 13:45-0400 Body weight 70.[address] Beryl Mcmillan Work Phone: [facility] 06-15-2023 13:45-0400 Respiratory rate 16 /min Dr. Beryl Mcmillan Work Phone: [facility] 06-15-2023 13:45-0400 SaO2% (BldA) [Mass fraction] 97 % Dr. Beryl Mcmillan Work Phone: [facility] 06-03-2023 08:36-0400 Body height 149.[address] Beryl Mcmillan Work Phone: [facility] 06-03-2023 08:35-0400 Body mass index (BMI) [Ratio] 31.3 kg/m2 Dr. Beryl Mcmillan Work Phone: [facility] 06-03-2023 08:35-0400 Body weight 70.[address] Beryl Mcmillan Work Phone: [facility] 06-03-2023 08:35-0400 Diastolic blood pressure 72 mm[Hg] Dr. Beryl Mcmillan Work Phone: [facility] 06-03-2023 08:35-0400 Systolic blood pressure 121 mm[Hg] Dr. Beryl Mcmillan Work Phone: [facility] 05-28-2023 09:17-0500 Body temperature 98.2 [degF] Dr. Beryl Mcmillan Work Phone: [facility] 05-28-2023 09:17-0500 Diastolic blood pressure 73 mm[Hg] Dr. Beryl Mcmillan Work Phone: [facility] 05-28-2023 09:17-0500 Heart rate 107 /min Dr. Beryl Mcmillan Work Phone: [facility] 05-28-2023 09:17-0500 Respiratory rate 16 /min Dr. Beryl Mcmillan Work Phone: [facility] 05-28-2023 09:17-0500 Systolic blood pressure 119 mm[Hg] Dr. Beryl Mcmillan Work Phone: [facility] 05-28-2023 09:10-0500 Body height 149.[address] Beryl Mcmillan Work Phone: [facility] 05-28-2023 09:10-0500 Body mass index (BMI) [Ratio] 31.1 kg/m2 Dr. Beryl Mcmillan Work Phone: [facility] 05-28-2023 09:10-0500 Body weight 70.[address] Beryl Mcmillan Work Phone: [facility] 05-26-2023 13:08-0500 Body height 149.[address] Beryl Mcmillan Work Phone: [facility] 05-26-2023 13:05-0500 Body mass index (BMI) [Ratio] 31.1 kg/m2 Dr. Beryl Mcmillan Work Phone: [facility] 05-26-2023 13:05-0500 Body weight 69.[address] Beryl Mcmillan Work Phone: [facility] 05-26-2023 13:05-0500 Diastolic blood pressure 75 mm[Hg] Dr. Beryl Mcmillan Work Phone: [facility] 05-26-2023 13:05-0500 Systolic blood pressure 107 mm[Hg] Dr. Beryl Mcmillan Work Phone: [facility] 05-22-2023 09:45-0500 Body mass index (BMI) [Ratio] 30.7 kg/m2 Dr. Beryl Mcmillan Work Phone: [phone] [place] [address] 05-22-2023 09:45-0500 Body weight 69.[address] Beryl Mcmillan Work Phone: [facility] 05-22-2023 09:45-0500 Diastolic blood pressure 72 mm[Hg] Dr. Beryl Mcmillan Work Phone: [facility] 05-22-2023 09:45-0500 Systolic blood pressure 119 mm[Hg] Dr. Beryl Mcmillan Work Phone: [facility] 05-05-2023 08:50-0500 Body mass index (BMI) [Ratio] 29.9 kg/m2 Dr. Beryl Mcmillan Work Phone: [facility] 05-05-2023 08:50-0500 Body weight 67.[address] Beryl Mcmillan Work Phone: [facility] 05-05-2023 08:50-0500 Diastolic blood pressure 68 mm[Hg] Dr. Beryl Mcmillan Work Phone: [facility] 05-05-2023 08:50-0500 Systolic blood pressure 112 mm[Hg] Dr. Beryl Mcmillan Work Phone: [facility] 04-07-2023 08:29-0500 Body mass index (BMI) [Ratio] 28.1 kg/m2 Dr. Beryl Mcmillan Work Phone: [facility] 04-07-2023 08:29-0500 Body weight 63.[address] Beryl Mcmillan Work Phone: [facility] 04-07-2023 08:29-0500 Diastolic blood pressure 72 mm[Hg] Dr. Beryl Mcmillan Work Phone: [facility] 04-07-2023 08:29-0500 Systolic blood pressure 110 mm[Hg] Dr. Beryl Mcmillan Work Phone: [facility] 04-02-2023 13:40-0500 Body mass index (BMI) [Ratio] 29.2 kg/m2 Dr. Beryl Mcmillan Work Phone: [facility] 04-02-2023 13:40-0500 Body weight 65.[address] Beryl Mcmillan Work Phone: [facility] 04-02-2023 13:40-0500 Diastolic blood pressure 76 mm[Hg] Dr. Beryl Mcmillan Work Phone: [facility] 04-02-2023 13:40-0500 Systolic blood pressure 110 mm[Hg] Dr. Beryl Mcmillan Work Phone: [facility] 03-09-2023 09:55-0500 Body height 149.[address] Beryl Mcmillan Work Phone: [facility] 03-09-2023 09:49-0500 Body mass index (BMI) [Ratio] 27.2 kg/m2 Dr. Beryl Mcmillan Work Phone: [facility] 03-09-2023 09:49-0500 Body weight 61.[address] Beryl Mcmillan Work Phone: [facility] 03-09-2023 09:49-0500 Diastolic blood pressure 80 mm[Hg] Dr. Beryl Mcmillan Work Phone: [facility] 03-09-2023 09:49-0500 Systolic blood pressure 110 mm[Hg] Dr. Beryl Mcmillan Work Phone: [facility] 02-23-2023 12:44-0500 Body temperature 97.5 [degF] Dr. Beryl Mcmillan Work Phone: [facility] 02-23-2023 12:44-0500 Diastolic blood pressure 54 mm[Hg] Dr. Beryl Mcmillan Work Phone: [facility] 02-23-2023 12:44-0500 Heart rate 92 /min Dr. Beryl Mcmillan Work Phone: [facility] 02-23-2023 12:44-0500 Respiratory rate 16 /min Dr. Beryl Mcmillan Work Phone: [facility] 02-23-2023 12:44-0500 SaO2% (BldA) [Mass fraction] 100 % Dr. Beryl Mcmillan Work Phone: [facility] 02-23-2023 12:44-0500 Systolic blood pressure 108 mm[Hg] Dr. Beryl Mcmillan Work Phone: [facility] 02-23-2023 11:30-0500 Body height 149.[address] Beryl Mcmillan Work Phone: [facility] 02-23-2023 11:30-0500 Body mass index (BMI) [Ratio] 26.4 kg/m2 Dr. Beryl Mcmillan Work Phone: [facility] 02-23-2023 11:30-0500 Body weight 59.[address] Beryl Mcmillan Work Phone: [facility] 02-17-2023 10:52-0500 Body height 149.[address] Beryl Mcmillan Work Phone: [facility] 02-17-2023 10:44-0500 Body mass index (BMI) [Ratio] 26.3 kg/m2 Dr. Beryl Mcmillan Work Phone: [facility] 02-17-2023 10:44-0500 Body weight 59.[address] Beryl Mcmillan Work Phone: [facility] 02-17-2023 10:44-0500 Diastolic blood pressure 64 mm[Hg] Dr. Beryl Mcmillan Work Phone: [facility] 02-17-2023 10:44-0500 Systolic blood pressure 108 mm[Hg] Dr. Beryl Mcmillan Work Phone: [facility] 01-27-2023 09:27-0500 Body mass index (BMI) [Ratio] 26.05 kg/m2 Jessa Noel MD Work Phone: [facility] 01-27-2023 09:27-0500 Body weight 58.51 kg Jessa Noel MD Work Phone: [facility] 01-27-2023 09:27-0500 Diastolic blood pressure 70 mm[Hg] Jessa Noel MD Work Phone: [facility] 01-27-2023 09:27-0500 Heart rate 89 /min Jessa Noel MD Work Phone: [facility] 01-27-2023 09:27-0500 Systolic blood pressure 113 mm[Hg] Jessa Noel MD Work Phone: [facility] 01-13-2023 14:03-0400 Body mass index (BMI) [Ratio] 26.3 kg/m2 Dr. Beryl Mcmillan Work Phone: [facility] 01-13-2023 14:03-0400 Body weight 59.[address] Beryl Mcmillan Work Phone: [facility] 01-13-2023 14:03-0400 Diastolic blood pressure 64 mm[Hg] Dr. Beryl Mcmillan Work Phone: [facility] 01-13-2023 14:03-0400 Systolic blood pressure 110 mm[Hg] Dr. Beryl Mcmillan Work Phone: [facility] 07-12-2022 09:02-0400 Body weight 60.33 kg Hoda Lewis MANAGER [employer] TELEVISION TECHNICAL DIRECTOR Work Phone: [facility] 07-12-2022 09:02-0400 Diastolic blood pressure 70 mm[Hg] Hoda Lewis MANAGER [employer] TELEVISION TECHNICAL DIRECTOR Work Phone: [facility] 07-12-2022 09:02-0400 Heart rate 97 /min Hoda Lewis MANAGER [employer] TELEVISION TECHNICAL DIRECTOR Work Phone: [facility] 07-12-2022 09:02-0400 Respiratory rate 16 /min Hoda Lewis MANAGER [employer]IO TELEVISION TECHNICAL DIRECTOR Work Phone: [facility] 07-12-2022 09:02-0400 SaO2% (BldA) [Mass fraction] 98 % Hoda Lewis MANAGER [employer] TELEVISION TECHNICAL DIRECTOR Work Phone: [facility] 07-12-2022 09:02-0400 Systolic blood pressure 110 mm[Hg] Hoda Lewis MANAGER [employer]IO TELEVISION TECHNICAL DIRECTOR Work Phone: [facility] 04-04-2022 08:28-0500 Body temperature 97.4 [degF] Dr. Beryl Mcmillan Work Phone: [facility] Work Phone: 04-04-2022 08:28-0500 Diastolic blood pressure 77 mm[Hg] Dr. Beryl Mcmillan Work Phone: [facility] Work Phone: 04-04-2022 08:28-0500 Heart rate 86 /min Dr. Beryl Mcmillan Work Phone: [facility] Work Phone: 04-04-2022 08:28-0500 Respiratory rate 16 /min Dr. Beryl Mcmillan Work Phone: [facility] Work Phone: 04-04-2022 08:28-0500 SaO2% (BldA) [Mass fraction] 98 % Dr. Beryl Mcmillan Work Phone: [facility] Work Phone: 04-04-2022 08:28-0500 Systolic blood pressure 133 mm[Hg] Dr. Beryl Mcmillan Work Phone: [facility] Work Phone: 04-04-2022 00:11-0500 Body height 149.[address] Beryl Mcmillan Work Phone: [facility] Work Phone: 04-04-2022 00:11-0500 Body mass index (BMI) [Ratio] 22.8 kg/m2 Dr. Beryl Mcmillan Work Phone: [facility] Work Phone: 04-04-2022 00:11-0500 Body weight 51.[address] Beryl Mcmillan Work Phone: [facility] Work Phone: 04-03-2022 23:15-0500 Diastolic blood pressure 32 mm[Hg] Dr. Beryl Mcmillan Work Phone: [facility] Work Phone: 04-03-2022 23:15-0500 Heart rate 97 /min Dr. Beryl Mcmillan Work Phone: [facility] Work Phone: 04-03-2022 23:15-0500 Respiratory rate 17 /min Dr. Beryl Mcmillan Work Phone: [facility] Work Phone: 04-03-2022 23:15-0500 SaO2% (BldA) [Mass fraction] 96 % Dr. Beryl Mcmillan Work Phone: [facility] Work Phone: 04-03-2022 23:15-0500 Systolic blood pressure 121 mm[Hg] Dr. Beryl Mcmillan Work Phone: [facility] Work Phone: 04-03-2022 22:44-0500 Body temperature 97.8 [degF] Dr. Beryl Mcmillan Work Phone: [facility] Work Phone: 04-03-2022 16:38-0500 Body height 124.[address] Beryl Mcmillan Work Phone: [facility] Work Phone: 04-03-2022 16:38-0500 Body mass index (BMI) [Ratio] 33.3 kg/m2 Dr. Beryl Mcmillan Work Phone: [facility] Work Phone: 04-03-2022 16:38-0500 Body weight 51.[address] Beryl Mcmillan Work Phone: [facility] Work Phone: 03-03-2022 19:13-0500 Blood Pressure Cuff Size TERRENCE CH MD [facility] 03-03-2022 19:13-0500 Blood Pressure Location TERRENCE CH MD [facility] 03-03-2022 19:13-0500 Blood Pressure Method TERRENCE CH MD [address] [place] [address] 03-03-2022 19:13-0500 Body temperature 98.06 [degF] TERRENCE CH MD [address] [place] [address] 03-03-2022 19:13-0500 Diastolic Blood Pressure Non-Invasive 87 1 TERRENCE CH MD [address] [place] [address] 03-03-2022 19:13-0500 Heart rate 88 /min TERRENCE CH MD [address] 03-03-2022 19:13-0500 Reason For Taking VItal Signs TERRENCE CH MD [address] 03-03-2022 19:13-0500 Respiratory rate 18 /min TERRENCE CH MD [address] [place] [address] 03-03-2022 19:13-0500 Systolic Blood Pressure Non-Invasive 118 1 TERRENCE CH MD [address] [place] [address] 03-03-2022 16:39-0500 Blood Pressure Location TERRENCE CH MD [address] [place] [address] 03-03-2022 16:39-0500 Blood Pressure Method TERRENCE CH MD [address] [place] [address] 03-03-2022 16:39-0500 Body temperature 97.34 [degF] TERRENCE HC MD [address] [place] [address] 03-03-2022 16:39-0500 Diastolic Blood Pressure Non-Invasive 86 1 TERRENCE CH MD [address] [place] [address] 03-03-2022 16:39-0500 Heart rate 92 /min TERRENCE CH MD [address] [place] [address] 03-03-2022 16:39-0500 Mean blood pressure 95 mm[Hg] TERRENCE CH MD [address] [place] [address] 03-03-2022 16:39-0500 Reason For Taking VItal Signs TERRENCE CH MD [facility] 03-03-2022 16:39-0500 Respiratory rate 18 /min TERRENCE CH MD [address] [place] [address] 03-03-2022 16:39-0500 Systolic Blood Pressure Non-Invasive 114 1 TERRENCE CH MD [address] [place] [address] 03-03-2022 11:44-0500 Blood Pressure Location TERRENCE CH MD [address] [place] [address] 03-03-2022 11:44-0500 Blood Pressure Method TERRENCE CH MD [address] [place] [address] 03-03-2022 11:44-0500 Body temperature 97.52 [degF] TERRENCE CH MD [address] [place] [address] 03-03-2022 11:44-0500 Diastolic Blood Pressure Non-Invasive 77 1 TERRENCE CH MD [address] [place] [address] 03-03-2022 11:44-0500 Heart rate 86 /min TERRENCE CH MD [address] [place] [address] 03-03-2022 11:44-0500 Mean blood pressure 88 mm[Hg] TERRENCE CH MD [address] [place] [address] 03-03-2022 11:44-0500 Reason For Taking VItal Signs TERRENCE CH MD [address] [place] [address] 03-03-2022 11:44-0500 Respiratory rate 18 /min TERRENCE CH MD [address] [place] [address] 03-03-2022 11:44-0500 Systolic Blood Pressure Non-Invasive 109 1 TERRENCE CH MD [address] [place] [address] 03-03-2022 08:57-0500 Heart rate 89 /min TERRENCE CH MD [address] [place] [address] 03-03-2022 04:29-0500 Heart rate 82 /min TERRENCE CH MD [address] [place] [address] 03-03-2022 00:15-0500 Heart rate 84 /min TERRENCE CH MD [address] [place] [address] 03-02-2022 19:32-0500 Heart rate 98 /min TERRENCE CH MD [address] [place] [address] 03-02-2022 13:30-0500 Heart rate 111 /min TERRENCE CH MD [address] [place] [address] 03-02-2022 08:49-0500 Heart rate 118 /min TERRENCE CH MD [address] 03-02-2022 04:30-0500 Body height 149.9 cm TERRENCE CH MD [address] 03-02-2022 04:30-0500 Body weight 53.8 kg TERRENCE CH MD [address] [place] [address] 03-02-2022 04:30-0500 Body weight 23.94 kg/m2 TERRENCE CH MD [address] [place] [address] 02-27-2022 16:14-0500 Body height 124.[address] Beryl Mcmillan Work Phone: [facility] Work Phone: 02-27-2022 16:13-0500 Body mass index (BMI) [Ratio] 34 kg/m2 Dr. Beryl Mcmillan Work Phone: [facility] Work Phone: 02-27-2022 16:13-0500 Body weight 52.[address] Beryl Mcmillan Work Phone: [facility] Work Phone: 02-27-2022 16:13-0500 Diastolic blood pressure 74 mm[Hg] Dr. Beryl Mcmillan Work Phone: [facility] Work Phone: 02-27-2022 16:13-0500 Systolic blood pressure 114 mm[Hg] Dr. Beryl Mcmillan Work Phone: [facility] Work Phone: 12-31-2021 13:31-0400 Body mass index (BMI) [Ratio] 33.5 kg/m2 Dr. Beryl Mcmillan Work Phone: [facility] Work Phone: 12-31-2021 13:31-0400 Body weight 51.[address] Beryl Mcmillan Work Phone: [facility] Work Phone: 12-31-2021 13:31-0400 Diastolic blood pressure 72 mm[Hg] Dr. Beryl Mcmillan Work Phone: [facility] Work Phone: 12-31-2021 13:31-0400 Systolic blood pressure 110 mm[Hg] Dr. Beryl Mcmillan Work Phone: [facility] Work Phone: 12-12-2021 14:37-0400 Body height 149.[address] Beryl Mcmillan Work Phone: [facility] Work Phone: 12-12-2021 14:37-0400 Body mass index (BMI) [Ratio] 23.8 kg/m2 Dr. Beryl Mcmillan Work Phone: [facility] Work Phone: 12-12-2021 14:37-0400 Body weight 53.[address] Beryl Mcmillan Work Phone: [facility] Work Phone: 12-12-2021 14:37-0400 Diastolic blood pressure 80 mm[Hg] Dr. Beryl Mcmillan Work Phone: [facility] Work Phone: 12-12-2021 14:37-0400 Systolic blood pressure 110 mm[Hg] Dr. Beryl Mcmillan Work Phone: [facility] Work Phone: 10-09-2021 09:11-0400 Body mass index (BMI) [Ratio] 23.1 kg/m2 Dr. Beryl Mcmillan Work Phone: [facility] Work Phone: 10-09-2021 09:11-0400 Body weight 51.[address] Beryl Mcmillan Work Phone: [facility] Work Phone: 10-09-2021 09:11-0400 Diastolic blood pressure 84 mm[Hg] Dr. Beryl Mcmillan Work Phone: [facility] Work Phone: 10-09-2021 09:11-0400 Systolic blood pressure 110 mm[Hg] Dr. Beryl Mcmillan Work Phone: [facility] Work Phone: 07-03-2021 09:24-0400 Body height 149.[address] Beryl Mcmillan Work Phone: [facility] Work Phone: 07-03-2021 09:24-0400 Body mass index (BMI) [Ratio] 24 kg/m2 Dr. Beryl Mcmillan Work Phone: [facility] Work Phone: 07-03-2021 09:24-0400 Body weight 54.[address] Beryl Mcmillan Work Phone: [facility] Work Phone: 07-03-2021 09:24-0400 Diastolic blood pressure 84 mm[Hg] Dr. Beryl Mcmillan Work Phone: [facility] Work Phone: 07-03-2021 09:24-0400 Systolic blood pressure 110 mm[Hg] Dr. Beryl Mcmillan Work Phone: [facility] Work Phone: 04-24-2021 09:07-0500 Body mass index (BMI) [Ratio] 25.2 kg/m2 Dr. Beryl Mcmillan Work Phone: [facility] Work Phone: 04-24-2021 09:07-0500 Body temperature 99 [degF] Dr. Beryl Mcmillan Work Phone: [facility] Work Phone: 04-24-2021 09:07-0500 Body weight 56.[address] Beryl Mcmillan Work Phone: [facility] Work Phone: 04-22-2021 09:29-0500 Diastolic blood pressure 74 mm[Hg] Dr. Beryl Mcmillan Work Phone: [facility] Work Phone: 04-22-2021 09:29-0500 Heart rate 96 /min Dr. Beryl Mcmillan Work Phone: [facility] Work Phone: 04-22-2021 09:29-0500 SaO2% (BldA) [Mass fraction] 99 % Dr. Beryl Mcmillan Work Phone: [facility] Work Phone: 04-22-2021 09:29-0500 Systolic blood pressure 122 mm[Hg] Dr. Beryl Mcmillan Work Phone: [facility] Work Phone: 04-08-2021 12:02-0500 Body mass index (BMI) [Ratio] 25.7 kg/m2 Dr. Beryl Mcmillan Work Phone: [facility] Work Phone: 04-08-2021 12:02-0500 Body weight 57.[address] Beryl Mcmillan Work Phone: [facility] Work Phone: 04-08-2021 12:02-0500 Diastolic blood pressure 84 mm[Hg] Dr. Beryl Mcmillan Work Phone: [facility] Work Phone: 04-08-2021 12:02-0500 Systolic blood pressure 110 mm[Hg] Dr. Beryl Mcmillan Work Phone: [facility] Work Phone: Encounters Encounter Date Encounter Type Care Provider Facility Start: 10-03-2024 End: 10-03-2024 ambulatory Hodaosiel Gleasonr ELECTRICAL SYSTEMS DESIGNER-C Work Phone: -[facility] Start: 10-03-2024 End: 10-03-[address] Natasha Correia MD -[facility] Work Phone: Start: 09-21-2024 End: 09-21-2024 ambulatory Renetta Dee PA-C Work Phone: Neurology Start: 09-21-2024 End: 09-21-2024 Emergency department patient visit Renetta Dee PA-C Work Phone: Neurology Comment on above: Emergency Room Visit Start: 09-20-2024 End: 09-20-2024 Emergency department patient visit EMY SHARPE [facility] Start: 09-16-2024 End: 09-16-2024 Patient encounter procedure Candida DUMONT -[facility] Work Phone: Start: 09-16-2024 End: 09-16-2024 ambulatory Hoda Ungerer ELECTRICAL SYSTEMS DESIGNER-C Work Phone: [facility] Work Phone: Start: 09-12-2024 End: 09-12-2024 ambulatory Hoda Smith ELECTRICAL SYSTEMS DESIGNER-C Work Phone: -Laboratory Specimen Start: 09-12-2024 End: 09-12-2024 Patient encounter procedure Sada Sammy KRUSEC -Laboratory Specimen Work Phone: Start: 09-12-2024 End: 09-12-2024 Patient encounter procedure Sada Christianson NP-C -[facility] @ Start: 09-12-2024 End: 09-12-2024 ambulatory Hoda Smith ELECTRICAL SYSTEMS DESIGNER-C Work Phone: [facility] Work Phone: Start: 09-12-2024 End: 09-12-2024 ambulatory Sada Chritsianson Facility:[facility] Start: 09-10-2024 End: 09-12-2024 Get Medical Advice Renetta Dee PA-C Work Phone: Neurology Comment on above: Regarding Prescripti on Refills Start: 09-07-2024 End: 09-08-2024 Telephone encounter Jennifer Nayely Moustapha PABON Work Phone: Neurology Comment on above: PA for Qulipta Refill Request Start: 09-07-2024 End: 09-07-2024 Telemedicine consultation with patient Jennifer Nayely Moustapha DUMONT-[place] Work Phone: Neurology Start: 09-07-2024 End: 09-07-2024 ambulatory Jennifer DUMONT-[place] Work Phone: Neurology Comment on above: Intractable chronic migraine without aura and without status migrainosus (Primary Dx); Medication overuse headache Start: 08-31-2024 End: 09-01-2024 ambulatory Renetta Dee PA-C Work Phone: Neurology Comment on above: Recommendation From PCP Start: 08-30-2024 End: 08-30-2024 ambulatory [facility] Start: 08-30-2024 ambulatory [facility] Start: 08-23-2024 End: 08-24-2024 ambulatory Renetta Lianger PA-C Work Phone: Neurology Comment on above: Frequency In Migrain es Start: 08-17-2024 End: 08-17-2024 ambulatory Renetta Lianger PA-C Work Phone: Neurology Comment on above: Frequent Worsening M igraines Start: 08-16-2024 End: 08-16-2024 Patient encounter procedure Candida DUMONT -[facility] Work Phone: Start: 08-16-2024 End: 08-16-2024 ambulatory Hoda Ungerer ELECTRICAL SYSTEMS DESIGNER-C Work Phone: [facility] Work Phone: Start: 08-16-2024 End: 08-16-[address] [facility] Facility:[facility] Start: 08-13-2024 End: 08-13-2024 Emergency department patient visit SONYA RAMOS [facility] Start: 08-08-2024 End: 08-08-2024 ambulatory Hoda Ungerer ELECTRICAL SYSTEMS DESIGNER-C Work Phone: [facility] Work Phone: Start: 08-08-2024 End: 08-08-2024 Patient encounter procedure Sada NORIEGA -Laboratory Specimen Work Phone: Start: 08-08-2024 End: 08-08-2024 Patient encounter procedure Sada KRUSEC -[facility] @ Start: 08-08-2024 End: 08-08-2024 ambulatory Hoda Ungerer ELECTRICAL SYSTEMS DESIGNER-C Work Phone: [facility] Work Phone: Start: 08-08-2024 End: 08-08-2024 ambulatory Hoda Ungerer Facility:[facility] Start: 08-04-2024 End: 08-04-2024 Refill Renetta Lianger PA-C Work Phone: Neurology Comment on above: Refill Request Start: 07-28-2024 End: 07-28-2024 Patient encounter procedure [facility] Work Phone: Start: 07-28-2024 End: 07-28-2024 ambulatory Hoda Smith Facility:[facility] Start: 07-25-2024 End: 07-25-2024 ambulatory Hoda Smith ELECTRICAL SYSTEMS DESIGNER-C Work Phone: [facility] Work Phone: Start: 07-25-2024 End: 07-25-2024 Patient encounter procedure Sada NORIEGA -Laboratory, Specimen Work Phone: Start: 07-25-2024 End: 07-25-2024 Patient encounter procedure Sada NORIEGA -[facility] @ Start: 07-25-2024 End: 07-25-2024 ambulatory Sada Christianson Facility:[facility] Start: 07-25-2024 End: 07-25-2024 ambulatory Sada Christianson Facility:[facility] Start: 07-19-2024 End: 07-19-2024 ambulatory [facility] Start: 07-19-2024 Encounter for gynecological examination (general) (routine) without abnormal findings [facility] Start: 07-18-2024 ambulatory Portia Garcia Facility :[facility] Start: 07-17-2024 End: 07-19-2024 ambulatory Renetta Dee PA-C Work Phone: Neurology Comment on above: Intense Sharp/Stabbi ng Headache Start: 06-29-2024 End: 06-29-2024 Patient encounter procedure Tonia KRUSEC -[facility] Work Phone: Start: 06-29-2024 End: 06-29-2024 ambulatory Hoda Smith Facility:[facility] Start: 06-24-2024 End: 06-24-2024 ambulatory [facility] Start: 06-23-2024 End: 06-23-2024 ambulatory NP. Hoda Smith ELECTRICAL SYSTEMS DESIGNER-C Work Phone: [facility] Work Phone: Start: 06-23-2024 End: 06-23-2024 Patient encounter procedure Sada NORIEGA -Laboratory, Specimen Work Phone: Start: 06-23-2024 End: 06-23-2024 Patient encounter procedure Sada KRUSEC -[facility] Work Phone: Start: 06-23-2024 End: 06-23-2024 ambulatory Sada Christianson Facility:[facility] Start: 06-23-2024 End: 06-23-2024 ambulatory Sada Christianson Facility:[facility] Start: 06-21-2024 End: 06-22-2024 ambulatory Renetta Dee PA-C Work Phone: Neurology Start: 06-21-2024 End: 06-22-2024 Patient encounter procedure Renetta Dee PA-C Work Phone: Neurology Comment on above: Regarding Office Windy ointment Start: 06-15-2024 End: 06-15-2024 ambulatory [facility] Start: 06-13-2024 End: 06-13-2024 ambulatory [facility] Start: 05-31-2024 ambulatory [facility]AN [facility] Start: 05-30-2024 End: 06-01-2024 ambulatory Renetta Dee PA-C Work Phone: Neurology Comment on above: Preventative Start: 05-22-2024 End: 05-24-2024 ambulatory Renetta Dee PA-C Work Phone: Neurology Comment on above: Medication Start: 05-18-2024 End: 05-18-2024 ambulatory NP. Hoda Smith ELECTRICAL SYSTEMS DESIGNER-C Work Phone: [facility] Work Phone: Start: 05-18-2024 End: 05-18-2024 Patient encounter procedure Portia Garcia CNM -Laboratory, Specimen Work Phone: Start: 05-18-2024 End: 05-18-2024 Patient encounter procedure Portia DELGADO -[facility] Start: 05-18-2024 End: 05-18-2024 ambulatory Portia Garcia Facility:[facility] Start: 05-18-2024 End: 05-18-2024 ambulatory Portia Garcia Facility:[facility] Start: 05-16-2024 End: 05-16-2024 ambulatory ELECTRICAL SYSTEMS DESIGNERPrincess Smith ELECTRICAL SYSTEMS DESIGNER-C Work Phone: [facility] Work Phone: Start: 05-16-2024 End: 05-16-[address] Maged Mckinney MD -Laboratory, Specimen Work Phone: Start: 05-16-2024 End: 05-16-2024 ambulatory Maged Mckinney Facility:[facility] Start: 05-12-2024 End: 05-12-2024 ambulatory Renetta Dee PA-C Work Phone: Neurology Comment on above: Ubrevly Start: 05-11-2024 End: 05-11-2024 Emergency department patient visit EMY DO [facility] Start: 05-11-2024 End: 05-11-2024 ambulatory Renetta DUMONT-C Work Phone: Neurology Comment on above: Intractable chronic migraine without aura and without status migrainosus (Primary Dx); Medication overuse headache Start: 05-11-2024 End: 05-11-2024 Telemedicine consultation with patient Renetta Luiz DUMONT-C Work Phone: Neurology Start: 05-02-2024 End: 05-02-[address] Lenka Thomas DO [facility] Work Phone: Start: 05-02-2024 End: 05-09-2024 ambulatory Renetta DUMONT-C Work Phone: Neurology Comment on above: Frequent Headaches Start: 04-28-2024 End: 04-28-2024 ambulatory [facility] Start: 04-27-2024 End: 04-27-2024 Patient encounter procedure Renettaemy Liangguy PA-C Work Phone: Neurology Comment on above: Intractable chronic migraine without aura and without status migrainosus (Primary Dx); Medication overuse headache Start: 04-27-2024 End: 04-27-2024 ambulatory RENETTAEMY LIANGGUY Facility:[facility] Start: 04-21-2024 End: 04-21-[address] Rajesh Orellana MD -[facility] Work Phone: Start: 04-21-2024 End: 04-21-2024 ambulatory Hoda Ungerer Facility:[facility] Start: 04-20-2024 End: 04-20-2024 Patient encounter procedure Sada NORIEGA -Laboratory, Specimen Work Phone: Start: 04-20-2024 End: 04-20-2024 Patient encounter procedure Sada NORIEGA -[facility] Work Phone: Start: 04-20-2024 End: 04-20-2024 ambulatory Hoda Ungerer Facility:[facility] Start: 04-20-2024 End: 04-20-2024 ambulatory Hoda [facility] Facility:[facility] Start: 04-19-2024 End: 04-19-2024 Emergency department patient visit HODA SHERIDAN [facility] Start: 04-12-2024 End: 04-12-2024 ambulatory [facility] Start: 03-08-2024 End: 03-08-2024 Subsequent hospital visit by physician Natan Funes MD Work Phone: [facility] Comment on above: OI (osteogenesis imp erfecta) Start: 03-08-2024 End: 03-08-2024 ambulatory [facility] Start: 03-08-2024 End: 03-08-2024 ambulatory [facility] Start: 03-06-2024 End: 03-06-2024 Emergency department patient visit [facility] Start: 03-05-2024 End: 03-06-2024 Emergency department patient visit HODA ELECTRICAL SYSTEMS DESIGNER [facility] Start: 02-29-2024 End: 02-29-[address] Rajesh Orellana MD -[facility] Work Phone: Start: 02-29-2024 End: 02-29-2024 ambulatory Hoda Ungerer Facility:[facility] Start: 02-16-2024 End: 02-16-2024 Patient encounter procedure Portia Garcia CNM -Outpatient [facility] Work Phone: Start: 02-16-2024 End: 02-16-2024 ambulatory Portia Garcia Facility:[facility] Start: 02-10-2024 End: 02-10-2024 Patient encounter procedure Portia Garcia CNM -Laboratory, Specimen Work Phone: Start: 02-10-2024 End: 02-10-2024 Patient encounter procedure Portia Garcia CNM -[facility] Start: 02-10-2024 End: 02-10-2024 ambulatory Hoda Ungerer Facility:[facility] Start: 02-10-2024 End: 02-10-2024 ambulatory Portia Garcia Facility:[facility] Start: 01-28-2024 End: 01-28-2024 ambulatory Hoda Ungerer Facility:[facility] Start: 01-21-2024 End: 01-21-2024 ambulatory HODA ELECTRICAL SYSTEMS DESIGNER [facility] Start: 01-12-2024 End: 01-12-2024 ambulatory Hoda Courtneyerer Facility:[facility] Start: 12-15-2023 End: 12-15-2023 ambulatory Portia Garcia Facility:[facility] Start: 11-19-2023 End: 11-19-2023 ambulatory HODA ELECTRICAL SYSTEMS DESIGNER [facility] Start: 11-10-2023 End: 11-10-2023 ambulatory HODA ELECTRICAL SYSTEMS DESIGNER [facility] Start: 11-10-2023 End: 11-10-2023 ambulatory HODA ELECTRICAL SYSTEMS DESIGNER [facility] Start: 11-10-2023 End: 11-10-2023 ambulatory Hoda Ungerer Facility[facility] Start: 11-10-2023 End: 11-10-2023 ambulatory Lenka Thomas Facility:[facility] Start: 11-02-2023 End: 11-02-2023 ambulatory Hoda Ungerer Facility:[facility] Start: 10-14-2023 End: 10-14-2023 ambulatory Sada Christianson Facility:[facility] Start: 10-01-2023 End: 10-01-2023 ambulatory Hoda Ungerer Facility:[facility] Start: 10-01-2023 ambulatory Hoda Ungerer Facilit y:[facility] Start: 09-29-2023 ambulatory Hoda Ungerer Facilit y:[facility] Start: 09-29-2023 ambulatory Portia Garcia Facility :[facility] Start: 09-29-2023 End: 10-03-2023 Evaluation and management of inpatient Hoda Ungerer Facility:[facility] Start: 09-25-2023 ambulatory Natasha Gilesi lity:[facility] Start: 09-25-2023 End: 09-25-2023 ambulatory Natasha Correia Facility:[facility] Start: 09-14-2023 End: 09-14-2023 ambulatory HODA Haleigh SMITH [facility] Start: 08-13-2023 End: 08-13-2023 ambulatory MARCUS AMARAL [facility] Start: 07-20-2023 End: 07-20-2023 ambulatory MISTY F KERI [facility] Start: 07-17-2023 End: 07-17-2023 ambulatory ELECTRICAL SYSTEMS DESIGNER. Hoda Smith Work Phone: [facility] Work Phone: Start: 07-17-2023 End: 07-17-2023 Patient encounter procedure ELECTRICAL SYSTEMS DESIGNER. Hoda Smith Work Phone: [facility] Work Phone: Start: 07-16-2023 End: 07-16-2023 Patient encounter procedure ELECTRICAL SYSTEMS DESIGNER. Hoda Smith Work Phone: [facility] Work Phone: Start: 07-09-2023 End: 07-09-2023 ambulatory ELECTRICAL SYSTEMS DESIGNER. Hoda Duy Work Phone: [facility] Work Phone: Start: 07-09-2023 End: 07-09-2023 Patient encounter procedure ELECTRICAL SYSTEMS DESIGNER. Hoda Valdezdennise Work Phone: [facility]-Laboratory, OP Pavilion Start: 07-03-2023 End: 07-03-2023 Patient encounter procedure ELECTRICAL SYSTEMS DESIGNER. Hoda Valdezdennise Work Phone: [facility] Work Phone: Start: 06-26-2023 Telephone encounter Jessa Noel MD Work Phone: [facility] Comment on above: Appointment Start: 06-25-2023 ambulatory Hoda Rogers RN [facility] Start: 06-25-2023 Patient encounter [facility] Start: 06-25-2023 Telephone encounter Jessa Noel MD Work Phone: [facility]stetric[facility] Start: 06-22-2023 End: 06-22-2023 ambulatory MISTY SAAVEDRA [facility] Start: 06-15-2023 End: 06-15-[address] Beryl Mcmillan Work Phone: [facility] Work Phone: Start: 06-15-2023 End: 06-15-[address] Beryl Mcmillan Work Phone: [facility]-Medical Out Work Phone: Start: 06-08-2023 End: 06-08-2023 ambulatory LENKA RANDOLPH [facility] Start: 06-03-2023 End: 06-03-[address] Beryl Mcmillan Work Phone: [facility] Work Phone: Start: 06-03-2023 End: 06-03-[address] [facility] Mcmillan [facility] Work [facility]: Start: 06-03-2023 End: 06-03-[address] Beryl Mcmillan Work Phone: [facility] Work Phone: Start: 05-28-2023 Non-patient / Non-visit Dr. Jayesh Mcmillan Work Phone: [facility] Start: 05-28-2023 End: 05-28-[address] Beryl Mcmillan Work Phone: [facility] Work Phone: Start: 05-28-2023 End: 05-28-[address] Beryl Mcmillan Work Phone: [facility] Work Phone: Start: 05-26-2023 End: 05-26-[address] Beryl Mcmillan Work Phone: [facility] Work Phone: Start: 05-22-2023 End: 05-22-[address] Beryl Mcmillan Work Phone: [facility] Work Phone: Start: 05-22-2023 End: 05-22-[address] Beryl Mcmillan [facility] Work Phone: Start: 05-22-2023 End: 05-22-[address] Beryl Mcmillan Work Phone: [facility] Work Phone: Start: 05-19-2023 End: 05-19-2023 ambulatory LENKA RANDOLPH [facility] Start: 05-05-2023 End: 05-05-[address] Beryl Mcmillan Work Phone: [facility] Work Phone: Start: 04-07-2023 End: 04-07-[address] Beryl Mcmillan Work Phone: [facility] Work Phone: Start: 04-02-2023 End: 04-02-[address] Beryl Mcmillan Work Phone: [facility] Work Phone: Start: 04-02-2023 End: 04-02-[address] Beryl Mcmillan Work Phone[facility] Work Phone: Start: 04-02-2023 End: 04-02-[address] Beryl Mcmillan Work Phone: [facility] Start: 03-30-2023 End: 03-30-2023 ambulatory SUDEEP HOANG [facility] Start: 03-19-2023 End: 03-19-[address] Beryl Mcmillan Work Phone: [facility] Work Phone: Start: 03-19-2023 End: 03-19-[address] Beryl Mcmillan Work Phone: [facility]-Laboratory, OP Pavilion Start: 03-09-2023 End: 03-09-[address] Beryl Mcmillan Work Phone: [facility] Work Phone: Start: 03-09-2023 End: 03-09-[address] Beryl Mcmillan Work Phone: [facility]-Laboratory, Specimen Work Phone: Start: 03-09-2023 End: 03-09-[address] Beryl Mcmillan Work Phone: [facility] Work Phone: Start: 02-23-2023 End: 02-23-[address] Beryl Mcmillan Work Phone: [facility] Work Phone: Start: 02-23-2023 End: 02-23-[address] Beryl Mcmillan Work Phone: [facility]-Medical Out Work Phone: Start: 02-17-2023 End: 02-17-[address] Beryl Mcmillan Work Phone: [facility] Work Phone: Start: 02-17-2023 End: 02-17-[address] Beryl Mcmillan [facility] Work Phone: Start: 02-17-2023 End: 02-17-[address] Beryl Mcmillan Work Phone: [facility] Work Phone: Start: 01-27-2023 End: 01-27-2023 ambulatory JESSA NOEL [facility] Start: 01-27-2023 End: 01-27-2023 Office outpatient visit 15 minutes Jessa Noel MD Work Phone: [facility] Medical [facility] Pel[facility] Comment on above: Vulvar burning (Prim mary lou Dx) Start: 01-22-2023 ambulatory Charity Thapa RN [facility] C linical Communication Start: 01-22-2023 Patient encounter procedure Charity Thapa RN [facility] Clinical Communication Start: 01-13-2023 End: 01-13-[address] Beryl Mcmillan Work Phone: [facility]-Laboratory, Specimen Work Phone: Start: 01-13-2023 End: 01-13-[address] Beryl Mcmillan Work Phone: [facility] Work Phone: Start: 07-12-2022 End: 07-12-2022 Subsequent hospital visit by physician [facility] Work Phone: Radiology Comment on above: Chest wall injury, i nitial encounter [S29.9XXA] Start: 07-12-2022 End: 07-12-2022 Patient encounter procedure Hoda Lewis APRN.RADIO TELEVISION TECHNICAL DIRECTOR Work Phone: [facility] Care Comment on above: Chest wall injury, i nitial encounter (Primary Dx); Fall on same level from slipping, tripping or stumbling, initial encounter Start: 04-04-2022 Non-patient / Non-visit Dr. Jayesh Mcmillan Work Phone: [facility] Inpatient Physicians Start: 04-03-2022 End: 04-04-2022 Evaluation and management of inpatient Dr. Beryl Mcmillan Work Phone: [facility]-Medical Surgical 2 Start: 04-03-2022 End: 04-04-[address] Beryl Mcmillan Work Phone: [facility] Work Phone: Start: 03-02-2022 End: 03-03-2022 Observation TERRENCE CH MD [facility] Start: 02-27-2022 End: 02-27-[address] Beryl Mcmillan Work Phone: [facility] Work Phone: Start: 02-27-2022 End: 02-27-[address] Beryl Mcmillan [facility] Start: 02-27-2022 End: 02-27-[address] Beryl Mcmillan Work Phone: [facility] Start: 12-31-2021 End: 12-31-[address] Beryl Mcmillan Work Phone: [facility] Start: 12-12-2021 End: 12-12-[address] Beryl Mcmillan Work Phone: [facility] Work Phone: Start: 12-12-2021 End: 12-12-[address] Beryl Mcmillan [facility] Start: 12-12-2021 End: 12-12-[address] Beryl Mcmillan Work Phone: [facility] Start: 10-09-2021 End: 10-09-[address] Beryl Mcmillan Work Phone: [facility] Start: 07-03-2021 End: 07-03-[address] Beryl Mcmillan Work Phone: [facility] Start: 07-03-2021 End: 07-03-[address] Beryl Mcmillan Work Phone: [facility]-Laboratory, Specimen Start: 04-24-2021 End: 04-24-[address] Beryl Mcmillan Work Phone: [facility] Start: 04-22-2021 End: 04-22-[address] Beryl Mcmillan Work Phone: [facility] Start: 04-08-2021 End: 04-08-[address] Beryl Mcmillan Work Phone: [facility]-Laboratory, Specimen Start: 04-08-2021 End: 04-08-[address] Beryl Mcmillan Work Phone: [facility] Start: 05-24-2017 End: 05-24-2017 Emergency department patient visit АННА GOLDSTEIN Facility: Start: 05-23-2017 End: 05-23-2017 Emergency department patient visit АННА GOLDSTEIN Facility: Procedures Date Procedure Procedure Detail Performing Clinician Start: 09-20-2024 Urinalysis ANGELI PANTOJA Comment on above: Result Comment: URIN ALYSIS Performed By: [id number] ####[facility],[address] [place] [address] Start: 09-12-2024 Gram stain microscopy J essosiel Gleasonr ELECTRICAL SYSTEMS DESIGNER-C Work Phone: Start: 09-12-2024 Source specific culture Hoda Gleasonr ELECTRICAL SYSTEMS DESIGNER-C Work Phone: Start: 09-12-2024 Urine culture Hoda U ngerer ELECTRICAL SYSTEMS DESIGNER-C Work Phone: Start: 08-16-2024 Plain X-ray abdomen Tonya shawn Victorinor ELECTRICAL SYSTEMS DESIGNER-C Work Phone: Start: 08-16-2024 X-ray of cervical spine Hoda Smith ELECTRICAL SYSTEMS DESIGNER-C Work Phone: Start: 08-13-2024 Urinalysis ANGELI GARAY [facility] Comment on above: Result Comment: URIN ALYSIS Performed By: [id number] ####[facility],[address] [place] [address] Start: 08-08-2024 Gram stain microscopy J moises Ungerer ELECTRICAL SYSTEMS DESIGNER-C Work Phone: Start: 08-08-2024 Source specific culture Hoda Ungerer ELECTRICAL SYSTEMS DESIGNER-C Work Phone: Start: 07-25-2024 Gram stain microscopy J moises Ungerer ELECTRICAL SYSTEMS DESIGNER-C Work Phone: Start: 07-25-2024 End: 07-25-2024 Source specific culture Hoda Ungerer ELECTRICAL SYSTEMS DESIGNER-C Work Phone: Start: 06-23-2024 Gram stain microscopy N P. Hoda Ungerer ELECTRICAL SYSTEMS DESIGNER-C Work Phone: Start: 06-23-2024 Source specific culture ELECTRICAL SYSTEMS DESIGNER. Hoda Ungerer ELECTRICAL SYSTEMS DESIGNER-C Work Phone: Start: 06-23-2024 Urine culture ELECTRICAL SYSTEMS DESIGNER. Lteicia stoll Ungerer ELECTRICAL SYSTEMS DESIGNER-C Work Phone: Start: 05-18-2024 Gram stain microscopy N P. Hoda Ungerer ELECTRICAL SYSTEMS DESIGNER-C Work Phone: Start: 05-18-2024 Source specific culture ELECTRICAL SYSTEMS DESIGNER. Hoda Ungerer ELECTRICAL SYSTEMS DESIGNER-C Work Phone: Start: 05-16-2024 Gram stain microscopy N P. Hoda Ungerer ELECTRICAL SYSTEMS DESIGNER-C Work Phone: Start: 05-16-2024 End: 05-16-2024 Respiratory microbial culture ELECTRICAL SYSTEMS DESIGNER. Hoda Ungerer ELECTRICAL SYSTEMS DESIGNER-C Work Phone: Start: 05-11-2024 Urinalysis ANGELI GARAY [facility] Comment on above: Result Comment: URIN ALYSIS Performed By: [id number] ####[facility],[address] [place] [address] Start: 04-20-2024 Gram stain microscopy N PPrincess Smith ELECTRICAL SYSTEMS DESIGNER-C Work Phone: Start: 04-20-2024 End: 04-20-2024 Source specific culture ELECTRICAL SYSTEMS DESIGNERPrincess Nunez rer ELECTRICAL SYSTEMS DESIGNER-C Work Phone: Start: 03-08-2024 Comprehensive metabo lic panel Natan Funes MD Work Phone: Start: 03-06-2024 Urinalysis ANGELI GARAY [facility] Comment on above: Result Comment: URIN ALYSIS Performed By: [id number] ####[facility],[address] [place] [address] Start: 03-06-2024 Urinalysis ANGELI GARAY [facility] Comment on above: Result Comment: URIN ALYSIS Performed By: [id number] ####[place] [id number] Start: 02-16-2024 Bilateral mammography N P. Hoda Gleasonr ELECTRICAL SYSTEMS DESIGNER-C Work Phone: Start: 02-16-2024 Ultrasonography of breast ELECTRICAL SYSTEMS DESIGNER. Hoda Smith ELECTRICAL SYSTEMS DESIGNER-C Work Phone: Start: 02-10-2024 Gram stain microscopy N PPrincess Smith ELECTRICAL SYSTEMS DESIGNER-C Work Phone: Start: 02-10-2024 Source specific culture ELECTRICAL SYSTEMS DESIGNER. Hoda Smith ELECTRICAL SYSTEMS DESIGNER-C Work Phone: Start: 01-21-2024 Urinalysis ANGELI GARAY [facility] Comment on above: Result Comment: URIN ALYSIS Performed By: [id number] ####[facility],[address] [place], [place] [id number] Start: 06-03-[address] Margoth Mcmillan Work Phone: Start: 06-03-2023 Investigation of transfusion reaction Dr. Beryl Mcmillan Work Phone: Start: 05-22-[address] Margoth Mcmillan Work Phone: Start: 05-22-2023 Investigation of transfusion reaction Dr. Beryl Mcmillan Work Phone: Start: 05-22-[address] Beryl Mcmillan Work Phone: Start: 04-02-2023 Cytopathology proced ure, preparation of smear, genital source Dr. Beryl Mcmillan Work Phone: Start: 04-02-2023 Investigation of transfusion reaction Dr. Beryl Mcmillan Work Phone: Start: 03-09-2023 Cytopathology proced ure, preparation of smear, genital source Dr. Beryl Mcmillan Work Phone: Start: 03-09-2023 Investigation of transfusion reaction Dr. Beryl Mcmillan Work Phone: Start: 03-09-[address] Beryl Mcmillan Work Phone: Start: 02-17-2023 Cytopathology proced ure, preparation of smear, genital source Dr. Beryl Mcmillan Work Phone: Start: 02-17-2023 Investigation of transfusion reaction Dr. Beryl Mcmillan Work Phone: Start: 01-13-2023 Cytopathology proced ure, preparation of smear, genital source Dr. Beryl Mcmillan Work Phone: Start: 01-13-2023 Investigation of transfusion reaction Dr. Beryl Mcmillan Work Phone: Start: 07-12-2022 Radiologic exam ches t 2 views Hoda Lewis MANAGER CONVENTION.RADIO TELEVISION TECHNICAL DIRECTOR Work Phone: Start: 04-03-2022 CT of abdomen and pe lvis without contrast Dr. Beryl Mcmillan Work Phone: Start: 04-03-2022 Plain chest X-ray Dr. Elijah Mcmillan Work Phone: Start: 07-03-2021 Cytopathology proced ure, preparation of smear, genital source Dr. Beryl Mcmillan Work Phone: Start: 07-03-2021 Investigation of transfusion reaction Dr. Beryl Mcmillan Work Phone: Start: 04-08-2021 Cytopathology proced ure, preparation of smear, genital source Dr. Beryl Mcmillan Work Phone: Start: 04-08-2021 Investigation of transfusion reaction Dr. Beryl Mcmillan Work Phone: Cytopathology proced ure, preparation of smear, genital source Dr. Beryl Mcmillan Work Phone: H/O: section Previous c esarean delivery affecting Dr. Beryl Mcmillan Work Phone: H/O: section S/P ELECTRICAL SYSTEMS DESIGNER. Elijah Smith ELECTRICAL SYSTEMS DESIGNER-C Work Phone: History of cholecystectomy Hx of cholecystectomy Dr. Beryl Mcmillan Work Phone: Investigation of transfusion reaction Dr. Beryl Mcmillan Work Phone: Urine culture Dr. Beryl branch Work Phone: Plan of Treatment Date Care Activity Detail Author Start: 2056 RSV Immunization age d 60 or older (1 - 1-dose 60+ series) RSV Immunization aged 60 or older (1 - 1-dose 60+ series) [facility] Start: 2046 Zoster Vaccines (1 of 2) Zoste r Vaccines (1 of 2) [facility] Start: 07-28-2033 Urine microalbumin profile DTaP,Tdap,Td Vaccine (10 - Td or Tdap) [facility] Start: 12-14-2028 DTaP/Tdap/Td Vaccine s (9 - Td or Tdap) DTaP/Tdap/Td Vaccines (9 - Td or Tdap) [facility] Start: 12-14-2028 Urine microalbumin profile DTaP,Tdap,Td Vaccine (9 - Td or Tdap) [facility] Start: 11-21-2024 Influenza vaccination Influenza Vacc ine (#1) [facility] Start: 11-02-2024 ambulatory Facility:[facility] Start: 10-04-2024 End: 10-04-2024 Patient encounter procedure 10/04/2024 11:00 AM EDT Office Visit Neurology [address] [place], [place] [id number] Renetta Dee PA-C [address] [place] [address] Facial Numbness, Tingling, Pain, Nausea, Fatigue Neurology Comment on above: Facial Numbness, Tin gling, Pain, Nausea, Fatigue Start: 10-03-2024 Prolactin measurement [facility] Start: 10-03-2024 Thyroid stimulating hormone measurement [facility] Start: 09-27-2024 ambulatory Facility:[facility] Start: 09-12-2024 Source specific culture [facility] Start: 09-12-2024 Genital Culture Genital Culture [facility] Start: 09-07-2024 End: 09-07-2024 ambulatory 09/07/2024 10:25 AM EDT [facility] Neurology [address] [facility] [address] [place] [address] Jennifer Gerard PA-C [address] [facility] [address] [place], [place] [id number] to discuss injectables- see TE (est neuro provider out on FMLA) Neurology Comment on above: to discuss injectabl es- see TE (est neuro provider out on FMLA) Start: 08-30-2024 End: 08-30-2024 ambulatory 08/30/2024 9:25 AM EDT [facility] Neurology [address] [facility] [address] [place] [address] Jennifer Gerard PAChristopherC [address] [facility] [address] [place], [place] [id number] to discuss injectables- see TE (est neuro provider out on FMLA) Neurology Comment on above: to discuss injectabl es- see TE (est neuro provider out on FMLA) Start: 08-17-2024 End: 08-17-2024 ambulatory 08/17/2024 9:25 AM EDT [facility] Neurology [address] [facility] [address] [place] [id number] Jennifer Gerard PA-C [address] [facility] [address] [place] [address] to discuss injectables- see TE (est neuro provider out on FMLA) Neurology Comment on above: to discuss injectabl es- see TE (est neuro provider out on FMLA) Start: 08-08-2024 [facility] Work Phone: Start: 08-08-2024 Source specific culture [facility] Start: 08-08-2024 Source specific [facility] Start: 07-29-2024 End: 07-29-2024 Patient encounter procedure Neurology Comment on above: 3 month follow up Migriane 3 mth f/u- ANKUR 05/11 TPM/ Elavil- start Ajovy q mthly Start: 07-27-2024 End: 07-27-2024 Patient encounter procedure 07/27/2024 9:30 AM EDT Office Visit Neurology [address] [place], [place] [id number] Renetta Dee PA-C [address] [place], [place] [id number] to discuss injectables- see TE Neurology Comment on above: to discuss injectabl es- see TE Start: 07-25-2024 End: 07-25-2024 Source specific culture [facility] Start: 06-22-2024 End: 06-22-2024 Patient encounter procedure 06/22/2024 9:30 AM EDT Office Visit Neurology [address] [place], [place] [phone] Renetta Dee PA-C [address] [place], [place] [id number] Discuss injectables Neurology Comment on above: Discuss injectables Start: 06-01-2024 End: 06-01-2024 Patient encounter procedure 06/01/2024 8:30 AM EDT Office Visit Neurology [address] [place] [place] [address] Renetta Dee PA-C [address] [place] [address] Discuss injectables Neurology Comment on above: Discuss injectables Start: 02-16-2024 Digital breast tomosynthesis bilateral BREAST TOMOSYNTHESIS BI [facility] Start: 11-22-2023 COVID-19 (2023-04 5 season) COVID-19 ( season) [facility] Start: 11-22-2023 Covid-19 Vaccine ( season) Covid-19 Vaccine ( season) [facility] Start: 11-22-2023 FLU (#1) FLU (#1) [facility] Start: 11-22-2023 Influenza vaccination Influenza Vacc ine (#1) [facility] Start: 07-17-2023 Insertion of cathete r into peripheral vein [facility] Start: 07-17-2023 Nonstress test [facility] Start: 07-17-2023 Obstetric monitoring [facility] Start: 07-17-2023 Vital signs measurements [facility] Start: 07-17-2023 [facility] Start: 07-17-2023 Patient discharge [facility] Start: 06-15-2023 Iv infusion hydratio n each additional hour HYDRATE IV INFUSION ADD-ON [facility] Start: 06-15-2023 Ther proph/dx njx iv push single/1st sbst/drug THER/PROPH/DIAG INJ IV PUSH [facility] Start: 05-28-2023 Nonstress test [facility] Start: 05-28-2023 Obstetric monitoring [facility] Start: 05-28-2023 Vital signs measurements [facility] Start: 05-28-2023 [facility] Start: 05-28-2023 Patient discharge [facility] Start: 03-09-2023 Cytopathology proced ure, preparation of smear, genital source Genital Culture [facility] Start: 03-09-2023 Source specific culture [facility] Start: 02-23-2023 Iv infusion hydratio n each additional hour HYDRATE IV INFUSION ADD-ON [facility] Start: 02-23-2023 Ther proph/dx njx iv push single/1st sbst/drug THER/PROPH/DIAG INJ IV PUSH [facility] Start: 02-17-2023 Genital Culture Genital Culture [facility] Start: 02-17-2023 Source specific culture [facility] Start: 11-21-2022 COVID-19 Vaccine ( season) COVID-19 Vaccine () [facility] Start: 11-21-2022 Influenza vaccination [facility] Start: 04-04-2022 Patient discharge [facility] Work Phone: Start: 04-04-2022 Care planning and pr oblem solving actions [facility] Work Phone: Start: 04-04-2022 End: 04-04-2022 [facility] Work Phone: Start: 04-04-2022 Following clinical pathway protocol [facility] Work Phone: Start: 04-04-2022 Assessment of risk o f venous thromboembolism [facility] Work Phone: Start: 04-04-2022 Insertion of cathete r into peripheral vein [facility] Work Phone: Start: 04-04-2022 Measuring intake and output [facility] Work Phone: Start: 04-04-2022 Providing care accor ding to standard [facility] Work Phone: Start: 04-04-2022 Provision of activit y privileges [facility] Work Phone: Start: 04-03-2022 CT Abdomen and Pelvi s WO contrast [facility] Work Phone: Start: 04-03-2022 CT of abdomen and pe lvis without contrast Abdomen/Pelvis without Cont [facility] Work Phone: Start: 04-03-2022 Verification routine [facility] Work Phone: Start: 04-03-2022 Admission procedure [facility] Work Phone: Start: 03-23-2022 DEPRESSION ASSESSMENT DEPRESSION ASS ESSMENT [facility] Start: 10-20-2020 COVID-19 VACCINE (3 - Booster for Pfizer series) COVID-19 VACCINE (3 - Booster for Pfizer series) [facility] Start: 10-20-2020 COVID-19 Vaccine (3 - Pfizer series) COVID-19 Vaccine (3 - Pfizer series) [facility] Start: 2017 Microscopic observat ion [Identifier] in Cervix by Cyto stain Pap Smear [facility] Start: 2017 PAP TESTING PAP TESTING [facility] Start: 2017 Screening for malign ant neoplasm of cervix [facility] Start: 06-20-2015 Hepatitis B (1 of 3 - 19+ 3-dose series) Hepatitis B (1 of 3 - 19+ 3-dose series) [facility] Start: 06-20-2015 Urine microalbumin profile DTAP,TDAP,TD (1 - Tdap) [facility] Start: 12-26-2014 Hepatitis A Vaccines (2 of 2 - 2-dose series) Hepatitis A Vaccines (2 of 2 - 2-dose series) [facility] Start: 07-24-2014 HPV Vaccine (2 - 3-d ose series) HPV Vaccine (2 - 3-dose series) [facility] Start: 07-24-2014 HPV Vaccines (2 - 3- dose series) HPV Vaccines (2 - 3-dose series) [facility] Start: 2014 Anxiety Screening Anxiety Screening [facility] Start: 2014 Depression Screening Depression Scre ening [facility] Start: 2014 HEPATITIS C SCREENING HEPATITIS C [facility] Start: 2014 Hepatitis C screening Hepatitis C [facility] Start: 2014 HIV SCREENING HIV SCREENING [facility] Start: 2014 HIV screening HIV Screening [facility] Start: 2012 MenB (1 of 2 - MenB 2-Dose Series Bexsero) MenB (1 of 2 - MenB 2-Dose Series Bexsero) [facility] Start: 2010 PEDS TO ADULT TRANSI TION ANNUAL ASSESSMENT PEDS TO ADULT TRANSITION ANNUAL ASSESSMENT [facility] Start: 2009 Varicella (1 of 2 - 13+ 2-dose series) Varicella (1 of 2 - 13+ 2-dose series) [facility] Start: 2008 [facility]: 2008 PEDS TO ADULT TRANSI TION INITIAL DISCUSSION PEDS TO ADULT TRANSITION INITIAL DISCUSSION [facility] Start: 06-20-2007 HPV VACCINE (1 - 2-d ose series) HPV VACCINE (1 - 2-dose series) [facility] Start: 06-20-2003 Tetanus Diphtheria a nd Pertussis Vaccines (1 - Tdap) Tetanus Diphtheria and Pertussis Vaccines (1 - Tdap) [facility] Start: 1997 MMR (1 of 1 - Standa rd series) MMR (1 of 1 - Standard series) [facility] Start: 1996 HEPATITIS B (1 of 3 - 3-dose series) HEPATITIS B (1 of 3 - 3-dose series) [facility] Start: 1996 HIV screening HIV Screening [facility] Start: 1996 Lipid panel Lipid Panel [facility] Start: 1996 Thyroid stimulating hormone measurement TSH Level [facility] Amphetamine [Mass/vo lume] in Urine [facility] Work Phone: Bacteria identified in Urine by Culture Urine Culture [facility] Work Phone: Benzodiazepine measurement, urine [facility] Work Phone: Bilirubin measuremen t, urine [facility] Work Phone: CBC W Auto Different ial panel - Blood [facility] CHLAMYDIA/N.GONORRHO EAE AND T. VAGINALIS RNA, QL TMA ([facility]) Chlamydia/N.Gonorrhoeae and T. Vaginalis RNA, QL TMA ([facility]) Microbiology Routine Vulvar burning Ordered: 01/27/2023 [facility] Work Phone: Comment on above: Ordered: 01/27/2023 Cocaine measurement, urine [facility] Work Phone: CT Abdomen and Pelvi s W contrast IV [facility] CT Abdomen and Pelvi s W contrast IV [facility] Genital microscopy, culture and sensitivities [facility] Hemoglobin [Presence ] in Urine [facility] Work Phone: Hemoglobin A1c/Hemoglobin.total in Blood [facility] Work Phone: Hepatitis B surface antigen measurement [facility] Hepatitis C antibody measurement [facility] HIV 1+2 Ab+HIV1 p24 Ag [Presence] in Serum or Plasma by Immunoassay [facility] Measurement of 3,4-methylenedioxymethamp hetamine in urine [facility] Work Phone: Measurement of keton es in urine using dipstick [facility] Work Phone: Methadone measuremen t, urine [facility] Work Phone: MG Breast - bilatera l Diagnostic [facility] Microscopic urinalysis [facility] Work Phone: Patient Education [facility] ED False Labor OB Triage: Return to Hospital or Notify Physician if you Experience: [facility] Work Phone: Patient referral [facility] Work Phone: pH of Urine [facility] Work Phone: Phencyclidine [Prese nce] in Urine [facility] Work Phone: Protein/Creatinine [Ratio] in Urine [facility] Rubella IgG measurement [facility] Source specific culture [facility] Source specific culture [facility] Specific gravity of Urine [facility] Work Phone: SURESWAB(R) ADV CAND CESAR VAGINITIS (CV), TMA ([facility]) Sureswab(R) Adv Jennifer Vaginitis (CV), TMA ([facility]) Lab Routine Vulvar burning Ordered: 01/27/2023 [facility] Comment on above: Ordered: 01/27/2023 T4 free measurement [facility] Thyroid stimulating hormone measurement [facility] Treponema sp Ab [Presence] in Serum [facility] Urinalysis, blood, qualitative [facility] Work Phone: Urine barbiturate measurement [facility] Work Phone: Urine cannabinoid measurement [facility] Work Phone: Urine dipstick for glucose [facility] Work Phone: Urine dipstick for leukocyte esterase [facility] Work Phone: Urine dipstick for nitrite [facility] Work Phone: Urine dipstick for protein [facility] Work Phone: Urine examination [facility] Work Phone: Urine microscopy: epithelial cells [facility] Work Phone: Urine Microscopy: wh ite cells [facility] Work Phone: Urine opiate measurement [facility] Work Phone: Urobilinogen [Presen ce] in Urine [facility] Work Phone: US Breast limited [facility] XR Abdomen Single view [facility] Work Phone: [facility] Immunizations Immunization Date Immunization Notes Care Provider [facility] 01-07-2024 influenza virus vacc ine, unspecified formulation Renetta Dee PA-C Work Phone: [facility] 07-29-2023 tetanus toxoid, redu niya diphtheria toxoid, and acellular pertussis vaccine, adsorbed [employer]LECT[employer] SYSTEMS DESIGNER. Hoda Smith [employer]LECTRICAL SYSTEMS DESIGNER-C Work Phone: [facility] 12-25-2022 influenza virus vacc ine, unspecified formulation Jessa Noel MD Work Phone: [facility] 12-31-2020 influenza virus vacc ine, unspecified formulation TERRENCE CH MD [facility] 08-25-2020 SARS-CoV-2 mRNA (tozinameran) vaccine TERRENCE CH MD [facility] 07-25-2020 SARS-CoV-2 mRNA (tozinameran) vaccine TERRENCE CH MD [facility] 03-15-2020 influenza virus vacc ine, unspecified formulation TERRENCE CH MD [facility] 04-23-2019 influenza virus vacc ine, unspecified formulation TERRENCE CH MD [facility] 12-14-2018 diphtheria, tetanus toxoids and acellular pertussis vaccine, unspecified formulation Dr. Beryl Mcmillan Work Phone: [facility] Work Phone: 12-14-2018 tetanus toxoid, redu niya diphtheria toxoid, and acellular pertussis vaccine, adsorbed Dr. Beryl Mcmillan Work Phone: [facility] 12-10-2018 influenza virus vacc ine, unspecified formulation TERRENCE CH MD [facility] 12-10-2018 influenza, injectabl e, quadrivalent, preservative free Dr. Beryl Mcmillan Work Phone: [facility] 12-10-2018 influenza, seasonal, injectable Dr. Beryl Mcmillan Work Phone: [facility] Work Phone: 03-23-2017 influenza virus vacc ine, unspecified formulation TERRENCE CH MD [facility] 06-26-2014 hepatitis A vaccine, pediatric dosage, unspecified formulation TERRENCE CH MD [facility] 06-26-2014 Human Papillomavirus Quadval TERRENCE CH MD [facility]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 referral. Will do this for 1 week and update--determine plan after able to review this information. Orders: Orders POC Urinalysis Dip (Clinic) Today R39.9 - Unspecified symptoms and signs involving the genitourinary system Culture, Genital Comprehensive Today N89.8 - Other specified noninflammatory disorders of vagina Referrals Physical Therapy Referral M62.838 - Other muscle spasm 08/08/24 1117 n ELECTRICAL SYSTEMS DESIGNER-C> Date _ Sada Christianson ELECTRICAL SYSTEMS DESIGNER-C Cosigner Signature: Date (if applicable) CC: ~ [facility]05-15-2025 Telephone encounter Note* Telephone Encounter - Vanessa Soto OCCA - 08/04/2024 9:55 AM EDT Images from the original note were not included. From visit 05/11/2024: Return in about 3 months (around 08/08/2024). Will start ajovy injectable once a month for prevention of migraine Continue with ubrelvy for rescue Take medrol dosepak for five days to break your current headache. Please review and advise. RUTHIE Solano [facility]05-15-2025 Miscellaneous Notes* Telephone Encounter - Vanessa Soto OCCA - 08/04/2024 9:55 AM EDT Images from the original note were not included. From visit 05/11/2024: Return in about 3 months (around 08/08/2024). Will start ajovy injectable once a month for prevention of migraine Continue with ubrelvy for rescue Take medrol dosepak for five days to break your current headache. Please review and advise. RUTHIE Solano * Telephone Encounter - Angeli Ballesteros - 08/04/2024 9:10 AM EDT LUIZ IS TAKING OVER THE LISTED MEDICATIONS Prescription Refill Information The patient has been identified by name and date of : Yes Caregiver verified no other encounters exist for this prescription request: Yes Caregiver confirmed with patient/requestor that no other refills are due, in the near future, with this provider at this time: Yes The last office visit in the department: 05/11/24 Does the patient have a future office visit with this provider/department: Yes 08/17/24 Requested Prescriptions Pending Prescriptions Disp Refills amitriptyline (ELAVIL) 100 mg tablet Sig: Take 1 tablet by mouth daily at bedtime. ubrogepant (UBRELVY) 100 mg tablet Sig: Take 1 tablet by mouth once daily as needed for migraine headache (see administration instructions). Angeli Ballesteros August 04, 2024 9:17 AM documented in [facility]05-[facility]-2025 Telephone encounter Note * Telephone Encounter - Angeli Ballesteros - 08/04/2024 9:10 AM EDT LUIZ IS TAKING OVER THE LISTED MEDICATIONS Prescription Refill Information The patient has been identified by name and date of : Yes Caregiver verified no other encounters exist for this prescription request: Yes Caregiver confirmed with patient/requestor that no other refills are due, in the near future, with this provider at this time: Yes The last office visit in the department: 05/11/24 Does the patient have a future office visit with this provider/department: Yes 08/17/24 Requested Prescriptions Pending Prescriptions Disp Refills amitriptyline (ELAVIL) 100 mg tablet Sig: Take 1 tablet by mouth daily at bedtime. ubrogepant (UBRELVY) 100 mg tablet Sig: Take 1 tablet by mouth once daily as needed for migraine headache (see administration instructions). Angeli Ballesteros August 04, 2024 9:17 AM [facility]04-03-20[facility] Evaluation note* Diagnosis Onset Date Resolution Status Admit Date Breakthrough bleeding on dep o provera acute June 23, 2024 1:34pm Urinary frequency acute June 232024 1:34pm Vaginal pain resolved June 23, 1:34pm Breakthrough bleeding on dep o provera acute June 29, 2024 11:23am Levator spasm acute July 25 10:43am Vaginal discharge acute July 10:43am Constipation noneactive July 28 8:12am Abnormal weight gain acute August 08, 2024 10:14am Levator spasm acute August 08, 025 10:14am Vaginal discharge acute July 10:14am Constipation inactive August 16 7:46am Dysuria acute September 12 11:36am Pelvic floor dysfunction acute September 12, 2024 11:36am Urinary frequency acute September 122024 11:36am Vaginal discharge acute September 122024 11:36am [facility] Work Phone: 1(804) 889-870604-03-2025 Evaluation note* Diagnosis Onset Date Resolution Status Admit Date Breakthrough bleeding on dep o provera acute June 23, 2024 1:34pm Urinary frequency acute June 232024 1:34pm Vaginal pain resolved June 23 025 1:34pm Breakthrough bleeding on dep o provera acute June 29, 2024 11:23am Levator spasm acute July 25 10:43am Vaginal discharge acute July 10:43am Constipation noneactive July 28 8:12am Abnormal weight gain acute August 08, 2024 10:14am Levator spasm acute August 08, 025 10:14am Vaginal discharge acute July 10:14am Constipation inactive August 16 7:46am Dysuria acute September 12 11:36am Pelvic floor dysfunction acute September 12, 2024 11:36am Urinary frequency acute September 122024 11:36am Vaginal discharge acute September 122024 11:36am Constipation inactive September 16 025 7:43am [facility] Work Phone: 1(383) 464-777604-03-2025 Evaluation note* Diagnosis Onset Date Resolution Status Admit Date Breakthrough bleeding on dep o provera acute June 23, 2024 1:34pm Urinary frequency acute June 232024 1:34pm Vaginal pain resolved June 23, 025 1:34pm Breakthrough bleeding on dep o provera acute June 29, 2024 11:23am Levator spasm acute July 25 10:43am Vaginal discharge acute July 10:43am Constipation noneactive July 28 8:12am Abnormal weight gain acute August 08, 2024 10:14am Levator spasm acute August 08, 2 025 10:14am Vaginal discharge acute July 10:14am Constipation inactive August 16 7:46am Dysuria acute September 12 11:36am Pelvic floor dysfunction acute September 12, 2024 11:36am Urinary frequency acute September 122024 11:36am Vaginal discharge acute September 122024 11:36am Constipation inactive September 16, 2 025 7:43am Galactorrhea acute October 03, 2 025 2:31pm Vaginal discharge acute October 032024 2:31pm [employer] Work Phone: 1(706) 571-476603-12-2025 Telephone encounter Note* Telephone Encounter - Hoda Reed LPN - 06/01/2024 2:36 PM EDT Jesus approved via [employer]. Hoda Reed LPN [facility]03-12-2025 Miscellaneous Notes* Telephone Encounter - Hoda Reed LPN - 06/01/2024 2:36 PM EDT Jesus approved via [employer]. Hoda Reed LPN * Telephone Encounter - Hoda Reed LPN - 05/30/2024 1:42 PM EDT Susie DUMONT started via [employer]. Hoda Reed LPN [facility] Telephone encounter Note * Telephone Encounter - Hoda Reed LPN - 05/30/2024 1:42 PM EDT Susie DUMONT started via [employer]. Hoda Reed LPN [facility]03-03-2025 Telephone encounter Note* Telephone Encounter - Nayely Garcia RN - 05/23/2024 8:59 AM EST Pt reports she is out of her anxiety medication, and her pcp, Elis Smith Np, left the practice 2 weeks ago without telling anyone. Asking if Quinten Dee can refill her hydroxyzine 50 mg capsule, take 1 cap 3 x's / day prn anxiety. Reports she is out of medication. Advised patient provider is not in until Thurs. Pt asking what she can do. Advised she could have her pcp [facility] certified concierge provider paged or if her anxiety is severe she can be seen in ER. Patient agreeable. [facility]03-03-2025 Miscellaneous Notes* Telephone Encounter - Nayely Garcia RN - 05/23/2024 8:59 AM EST Pt reports she is out of her anxiety medication, and her pcp, Elis Smith Np, left the practice 2 weeks ago without telling anyone. Asking if Quinten Dee can refill her hydroxyzine 50 mg capsule, take 1 cap 3 x's / day prn anxiety. Reports she is out of medication. Advised patient provider is not in until Thurs. Pt asking what she can do. Advised she could have her pcp [facility] certified concierge provider paged or if her anxiety is severe she can be seen in ER. Patient agreeable. [facility] Evaluation note* Diagnosis Onset Date Resolution Status Admit Date Yeast infection deleted May 18, 2024 8:01am Breakthrough bleeding on depo provera acute June 23, 2024 1:34pm Urinary frequency acute June 232024 1:34pm Vaginal pain resolved June 23, 2 025 1:34pm Breakthrough bleeding on depo provera acute June 29, 2024 11:23am Levator spasm acute July 25 10:43am Vaginal discharge acute July 10:43am Constipation noneactive July 28 8:12am Abnormal weight gain acute August 08, 2024 10:14am Levator spasm acute August 08, 2 025 10:14am Vaginal discharge acute July 10:14am Constipation inactive August 16 7:46am Dysuria acute September 12 11:36am Pelvic floor dysfunction acute September 12, 2024 11:36am Urinary frequency acute September 122024 11:36am Vaginal discharge acute September 122024 11:36am [employer] Work Phone: 1(386) 374-896302-19-2025 Instructions* Patient Instructions* Renetta Dee PA-C - 05/11/2024 4:13 PM EST Will start ajovy injectable once a month for prevention of migraine Continue with ubrelvy for rescue Take medrol dosepak for five days to break your current headache. PREDNISONE Prednisone is an adreno-corticosteroid that is a very potent anti-inflammatory agent used in the treatment of acute pain, including migraine and cluster headaches. It is used to help break a severe migraine or cluster headache and can help to decrease the pain from stopping analgesics that are causing rebound headache. Side effects can include fluid retention, increased appetite, weight gain, moodiness, insomnia, stomach pain and gastrointestinal (GI) bleeding. For this reason, certain medications may be prescribedalong with prednisone to lessen side effects. Should you have any problems while taking this medication, please call our office . If you have bleeding from the GI tract ( black tarry stools, bright red blood in your stool, or coffee ground emesis (vomiting) go immediately to an Urgent Care Center or Emergency room. If needed for insomnia, you can take melatonin 6mg each night while on steroids. Alternately, another option is to take benadryl 25mg each night to help with sleep while on steroids. If you have diabetes, please watch your sugars very closely as steroids have a tendency to increaseyour glucose. documented in this encounter[facility]02-[facility]-2025 NoteHNO ID: [id number] Author: RENETTA DEE PA-C Service: ? Author Type: Physician Airplane Pilot Commercial Type: Progress Notes Filed: 05/11/2024 16:17 Note Text: [facility] Follow Up / Established Virtual Visit I have communicated my name and active licensure. The patient's identity and physical location were verified at the time of this visit. Either the patient or their legal international sales representative has been informed of the risks and benefits of -- and alternatives to -- treatment through a remote evaluation and consents to proceed with the evaluation remotely. Individuals who were included in, or assisted with the encounter were: Napoleon Valles Renetta Dee PA-C Chief Complaint/Issues: Napoleon Valles is a 28 year old female seen in the [facility] for: Follow up Most Recent Neurological Assessment and Plan: Last Filed Values None HPI/Interval History: Last Visit: 04/27/24 Assessment AND Plan: Napoleon Valles is a 28 year old female with a history of migraines and osteogenesis imperfecta. Her examination demonstrates no neurologic deficits. Patient with chronic headaches since she was 13 years old after she sustained intracranial hemorrhage from a trip and fall, history of osteogenesis imperfecta. Has been following with [facility], has tried and failed multiple medications for her migraines but notes her headaches have steadily increased. Notes almost daily headaches, described as holocephalic and associated with nausea, moderate to severe in severity. No photophobia, phonophobia, or autonomic features. Does take daily bryg-obb-pcyacgq medications when she runs out of Ubrelvy likely contributing to medication overuse headache. There was thought her symptoms may be related to Depo-Provera, but notes no change with headaches after having this. No red flag signs or symptoms with her headaches at 1 additional imaging in the past, that she did have MRI imaging in the past and this was reported on neurology notes, this was normal. She headaches continue to worsen or be resistant to treatment may consider reimaging in the future. For treatment of headaches, discussed migraine prevention and abortive relief. However, discussed the importance of weaning off of daily Tylenol and ibuprofen use as this is likely contributing to her daily headache. As she has tried many antidepressants, antiseizure medicines and beta-blockers in the past felt appropriate to move onto other migraine targeted medications. Deferring Botox therapy and injectables at this time due to aversion of needles, discussed Qulipta and patient is amenable to starting this. Will start Qulipta 60 mg daily, will continue with Ubrelvy for abortive relief as this is helpful for her. Encouraged other conservative therapy as well, patient does not drink water throughout the day primarily drinks caffeinated beverages. Discussed this could also be contributing to her headaches and encouraged increased water intake. Patient agreeable to treatment plan of care at this time, all questions were answered. Patient to follow-up in 3 months. Napoleon was seen today for new patient evaluation. Diagnoses and all orders for this visit: Intractable chronic migraine without aura and without status migrainosus - atogepant (QULIPTA) 60 mg tablet; Take 1 tablet (60 mg) by mouth once daily. Medication overuse headache All options for treatment discussed. Preventative:Qulipta 60mg Abortive: Ubrelvy 100mg She should return to see me in 3 months. Today: PT is here for headache/migraine follow up. Last seen on 04/27/24 for migraines, on TPM 100mg and elavil having daily RANKIN. Has an aversion to needles and wanted to try qulipta, but this was denied. Since last visit headaches have not changed. Presents today to discuss other medication options. Current Headache treatment Preventative: elavil 100mg, TPM 100mg, propranolol Abortive: ubrelvy 100mg Medications effective? yes # of doses of abortive medications per month: 10 Total headache days per month: daily Total headache attacks per month: daily Headache free days: No Duration of attacks: continuously Severity of headaches? severe Onset: 13 years old Location: sometimes starts in forehead and then to the back of the head, both sides . Aura: None. Sometimes sees spots Prodrome:none. Accompanying symptoms: nausea, neck pain, agitation. Quality:sharp, throbbing, and burning. Worse with activity: sometimes Triggers: none, maybe depo. Cough/sneeze/valsalva as trigger: no Positional changes: No Most common time of day for headache to begin:anytime. Time missed from work or school: none Risk Factors Visual-Motion sensitivity: No Tobacco Use: No Alcohol Use: No Other substances: No Caffeine: Yes, iced coffee and sweet tea all day Water- sometimes Neck Pain /Back Pain: No Fibromyalgi (more content not included)...[facility]02-19-2025 History of Present illness Narrative* Renetta Dee PA-C - 05/11/2024 3:54 PM EST Images from the original note were not included. [facility] Follow Up / Established Virtual Visit I have communicated my name and active licensure. The patient's identity and physical location wereverified at the time of this visit. Either the patient or their legal international sales representative has been informed of the risks and benefits of -- and alternatives to -- treatment through a remote evaluation andconsents to proceed with the evaluation remotely. Individuals who were included in, or assisted with the encounter were: Napoleon Valles Renetta Dee PA-C Chief Complaint/Issues: Napoleon Valles is a 28 year old female seen in the [facility] for: Follow up Most Recent Neurological Assessment and Plan: Last Filed Values None HPI/Interval History: Last Visit: 04/27/24 Assessment & Plan: Napoleon Valles is a 28 year old female with a history of migraines and osteogenesis imperfecta. Her examination demonstrates no neurologic deficits. Patient with chronic headaches since she was 13 years old after she sustained intracranial hemorrhage from a trip and fall, history of osteogenesis imperfecta. Has been following with [facility], has tried and failed multiple medications for her migraines but notes her headaches have steadily increased. Notes almost daily headaches, described as holocephalic and associated with nausea,moderate to severe in severity. No photophobia, phonophobia, or autonomic features. Does take lnzmlhwde-mlc-tadwjov medications when she runs out of Ubrelvy likely contributing to medication overuseheadache. There was thought her symptoms may be related to Depo-Provera, but notes no change with headaches after having this. No red flag signs or symptoms with her headaches at 1 additional imagingin the past, that she did have MRI imaging in the past and this was reported on neurology notes, this was normal. She headaches continue to worsen or be resistant to treatment may consider reimaging in the future. For treatment of headaches, discussed migraine prevention and abortive relief. However, discussed the importance of weaning off of daily Tylenol and ibuprofen use as this is likely contributing to her daily headache. As she has tried many antidepressants, antiseizure medicines and beta-blockers in the past felt appropriate to move onto other migraine targeted medications. Deferring Botox therapy and injectables at this time due to aversion of needles, discussed Qulipta and patient is amenable to starting this. Will start Qulipta 60 mg daily, will continue with Ubrelvy for abortive relief as this is helpful for her. Encouraged other conservative therapy as well, patient does not drink water throughout the day primarily drinks caffeinated beverages. Discussed this could also be contributingto her headaches and encouraged increased water intake. Patient agreeable to treatment plan of care at this time, all questions were answered. Patient to follow-up in 3 months. Napoleon was seen today for new patient evaluation. Diagnoses and all orders for this visit: Intractable chronic migraine without aura and without status migrainosus - atogepant (QULIPTA) 60 mg tablet; Take 1 tablet (60 mg) by mouth once daily. Medication overuse headache All options for treatment discussed. Preventative:Qulipta 60mg Abortive: Ubrelvy 100mg She should return to see me in 3 months. Today: PT is here for headache/migraine follow up. Last seen on 04/27/24 for migraines, on TPM 100mg and elavil having daily RANKIN. Has an aversion to needles and wanted to try qulipta, but this was denied. Since last visit headaches have not changed. Presents today to discuss other medication options. Current Headache treatment Preventative: elavil 100mg, TPM 100mg, propranolol Abortive: ubrelvy 100mg Medications effective? yes # of doses of abortive medications per month: 10 Total headache days per month: daily Total headache attacks per month: daily Headache free days: No Duration of attacks: continuously Severity of headaches? severe Onset: 13 years old Location: sometimes starts in forehead and then to the back of the head, both sides . Aura: None. Sometimes sees spots Prodrome:none. Accompanying symptoms: nausea, neck pain, agitation. Quality:sharp, throbbing, and burning. Worse with activity: sometimes Triggers: none, maybe depo. Cough/sneeze/valsalva as trigger: no Positional changes: No Most common time of day for headache to begin:anytime. Time missed from work or school: none Risk Factors Visual-Motion sensitivity: No Tobacco Use: No Alcohol Use: No Other substances: No Caffeine: Yes, iced coffee and sweet tea all day Water- sometimes Neck Pain /Back Pain: No Fibromyalgia: No History of Motor Vehicle Accident: No History of Traumatic Brain Injury and/or Concussion: Yes, 13 years old History of severe infection: No History of Syncope: No Obesity: No, Body mass index is 27 Eye doc- been a few months - no Prior Therapies Ubrelvy ASA Fioricet Elavil Eletriptan Labetolol Imitrex TPM Effexor Amlodipine Maxalt Cymbalta Gabapentin General Examination: She is alone. General: Awake, alert, interactive, no acute distress, good nutritional status, normal development,well-kept Only a limited general examination was done. Neurological Exam Mental Status Alert, fully oriented, attentive, with normal cognition, memory, speech and affect. Cranial Nerves Extraocular movements normal. No nystagmus, no ptosis, and pupils equal. Face symmetrical. Assessment & Plan 05/11/2024 - General Neurology, Renetta Dee PA-C ASSESSMENT ASSESSMENT/PLAN: 1. Intractable chronic migraine without aura and without status migrainosus - ICD9: 346.71, ICD10: G43.719 (primary diagnosis) 2. Medication overuse headache - ICD9: 339.3, ICD10: G44.40 No change in RANKIN, still on TPM 100mg and elavil 100mg. Qulipta denied, patient okay to try injectable. Jesus sent to pharmacy. Notes that she is currently getting over covid and has intractable migriane that did not respond toubrelvy. Discussed a medrol dosepak and pt amenable. Has appt with ENT on Thursday as well, encouraged to keep this. NO new sxs, will follow up as planned. Renetta Dee PA-C No diagnosis found. No follow-ups on file. Data Review Objective Current Outpatient Medications Medication Sig amitriptyline (ELAVIL) 100 mg tablet Take 100 mg by mouth daily at bedtime. levothyroxine 25 mcg cap Take 25 mcg by mouth daily before breakfast. propranolol HCl (PROPRANOLOL ORAL) Take by mouth. hydrOXYzine HCl (ATARAX) 10 mg tablet Take 10 mg by mouth three times a day as needed. atogepant (QULIPTA) 60 mg tablet Take 1 tablet (60 mg) by mouth once daily. predniSONE (DELTASONE) 10 mg tablet Take 4 [...] daily. (Patient not taking: Reported on 07/12/2022) hydrocortisone (ANUSOL-HC) 25 mg suppository 1 Suppository by RECTAL route twice daily. (Patient not taking: No sig reported) LINZESS 290 mcg capsule Take 145 mcg by mouth once daily. (Patient not taking: No sig reported) pantoprazole DR (PROTONIX) 20 mg tablet Take 40 mg by mouth once daily. medroxyPROGESTERone (DEPO-PROVERA) 400 mg/mL susp Inject 400 [...] MIST) 0.65 % nasal spray Use 1 [place] in the nose every 6 hours as needed for Cold/Allergy Symptoms. (Patient not taking: No sig reported) No current facility-administered medications for this visit. ACTIVE PROBLEM LIST Osteogenesis Imperfecta Thoracogenic Scoliosis of Thoracolumbar Region PAST MEDICAL HISTORY Diagnosis Date Migraine headache Osteogenesis imperfecta 02/21/2018 Preeclampsia Seasonal allergies Thoracogenic scoliosis of thoracolumbar region 02/21/2018 PAST SURGICAL HISTORY Procedure Laterality Date CHOLECYSTECTOMY EGD 06/07/2020 Social History Tobacco Use Smoking status: Never Smokeless tobacco: Never Vaping Use Vaping status: Never Used Substance Use Topics Alcohol use: Never Drug use: Never No family history on file. Review of Systems Lab and Test Review: Results for orders placed or performed in visit on 04/28/24 BACTERIAL CULTURE, URINE Specimen: Urine (Nonspecific) Result Value Ref Range Culture, Urine >=100,000 CFU/ml Klebsiella oxytoca (A) Susceptibility Klebsiella oxytoca - MINIMUM INHIBITORY CONCENTRATION(VITEK) Ampicillin Resistant Cefazolin* Susceptible * For uncomplicated urinary tract infections, cefazolin results can be used to predict susceptibility or resistance to cephalexin. Ceftriaxone Susceptible Cefepime Susceptible Ertapenem Susceptible Meropenem Susceptible Ampicillin/Sulbact Susceptible Piperacillin/Tazobac Susceptible Gentamicin Susceptible Tobramycin Susceptible Trimeth sulfameth Susceptible Ciprofloxacin Susceptible Nitrofurantoin Susceptible Outside Data/Labs: Subjective Patient-Entered Data: 05/11/24 - GENERAL NEUROLOGY SCORES 04/26/2024 PROMIS 10 Health, in general Good Quality of life, in general Good Physical health, in general Good Mental health, in general Fair Social activities satisfaction Good Performing ADL's Moderately Social role satisfaction Fair Pain, on average 8 Fatigue, on average Moderate Emotional problems Sometimes PHYSICAL Score 37.4 (Fair) MENTAL Score 41.1 (Good) 04/26/2024 04/26/2024 Depression Screening PHQ-2 Score 2 PHQ-9 Score 8 AGUSTÍN-2 Total Score 4 AGUSTÍN-7 Total Score 9 04/26/2024 SLEEP APNEA SCORE Probability of moderate-severe sleep apnea (%) SAPS V2 5 (Sleep study not recommended) No data to display No data to display I spent a total of 30 minutes on the date of the service which included preparing to see the patient, rqmr-yb-[id number] patient care, completing clinical documentation, obtaining and/or reviewing separately obtained history, performing a medically appropriate examination, counseling and educating the pat ient/family/caregiver, and ordering medications, tests, or procedures. Renetta Dee PA-C documented in [facility] Evaluation note* Diagnosis Onset Date Resolution Status Admit Date Breakthrough bleeding on dep o provera acute May 02, 2 025 8:26am Contraception management resolved May 02, 2024 8:26am Yeast infection deleted May 18, 2024 8:01am Breakthrough bleeding on dep o provera acute June 23, 2024 1:34pm Urinary frequency resolved June 232024 1:34pm Vaginal pain resolved June 23 025 1:34pm Breakthrough bleeding on dep o provera acute June 29, 2024 11:23am Levator spasm acute July 25 10:43am Vaginal discharge acute July 10:43am Constipation noneactive July 28 8:12am Abnormal weight gain acute August 08, 2024 10:14am Levator spasm acute August 08 10:14am Vaginal discharge acute July 10:14am Constipation inactive August 16 7:46am [facility] Work Phone: 1(483) 849-254702-05-2025 Instructions* Patient Instructions* Renetta Dee PA-C - 04/27/2024 8:57 AM EST Preventative: Start Qulipta 60mg daily, continue with elavil Abortive: take ubrelvy 100mg as needed with start of headache Increase water intake to 60 ounces a day Follow up in three months Headache Preventive Treatment: Please keep in mind that it takes 4-6 weeks for the medication to start working well and 2-3 monthsat the appropriate dose before deciding if it will be useful or not. If it is not helping at all bythis time, then we will discuss other medications to try. Supplements may take 3-6 months until yousee full effect. Natural supplements: Magnesium Oxide 500 mg at bed Coenzyme Q10 300 mg in AM Vitamin B2- 200 mg twice a day Feverfew 50 mg twice a day Vitamins and herbs that show potential Magnesium: Magnesium (250 mg twice a day or 500 mg at bed) has a relaxant effect on smooth muscles such as blood vessels. Individuals suffering from frequent or daily headache usually have low magnesium levels which can be increase with daily supplementation of 400-750 mg. Three trials found 40-90%average headache reduction when used as a preventative. Magnesium also demonstrated the benefit in menstrually related migraine. Magnesium is part of the messenger system in the serotonin cascade andit is a good muscle relaxant. It is also useful for constipation which can be a side effect of other medications used to treat migraine. Good sources include nuts, whole grains, and tomatoes. Magnesium comes in many different forms: Magnesium glycinate is a good choice for those with a sensitive stomach who have gastrointestinal side effects such as diarrhea with other forms of magnesium. It is anecdotally also helpful with anxiety and sleep. Magnesium threonate also has low risk of gastrointestinal side effects and anecdotally helpful with cognitive function and brain fog symptoms. Magnesium malate has low gastrointestinal side effects and is reportedly more energizing and anecdotally often helpful in fibromyalgia and chronic fatigue syndrome. Magnesium citrate is one of the most studied, popular, and well-absorbed forms of magnesium. It can also be mixed easily with liquids if you can't take pills. However, it comes w ith a higher risk of diarrhea and gastrointestinal side effects, although this could be helpful forthose with constipation. Magnesium oxide is also well studied, cheap, and often used for heartburn and indigestion. However, it is not well absorbed and can have some laxative side effects as well, so can also be helpful for constipation. Riboflavin (vitamin B 2) 200 mg twice a day. This vitamin assists nerve cells in the production of ATP a principal energy storing molecule. It is necessary for many chemical reactions in the body. There have been at least 3 clinical trials of riboflavin using 400 mg per day all of which suggested that migraine frequency can be decreased. All 3 trials showed significant improvement in over half ofmigraine sufferers. The supplement is found in bread, cereal, milk, meat, and poultry. Most Americans get more riboflavin than the recommended daily allowance, however riboflavin deficiency is not necessary for the supplements to help prevent headache. Feverfew: Feverfew is a common garden herb [place] to [place] and popular in [place] as a treatment for disorders typically controlled by aspirin. The mechanism of action is unknown but is believed to be related to a chemical called parthenolide which helps the body use serotonin more effectively. Serotonin helps prevent migraine and assists with resolution when it occurs. Parthenolide also inhibits the release of histamine which is linked to pain and inflammation. Consistency of active ingredients in different products can be a problem. Some formulations don't have the active ingredient (parthenolide) that prevents migraine. A parthenolide content of 0.2% is generally recommended. Typical dosage is one capsule 3 times a day. Coenzyme Q10: This is present in almost all cells in the body and is critical component for the conversion of energy. Recent studies have shown that a nutritional supplement of CoQ10 can reduce the frequency of migraine attacks by improving the energy production of cells as with riboflavin. Doses of 150 mg twice a day have been shown to be effective. Melatonin: Increasing evidence shows correlation between melatonin secretion and headache conditions. Melatonin supplementation has decreased headache intensity and duration. It is widely used as a sleep aid. Sleep is natures way of dealing with migraine. A dose of 3 mg is recommended to start for headaches including cluster headache. Higher doses up to 15 mg has been reviewed for use in Cluster headache and have been used. The rationale behind using melatonin for cluster is that many theories regarding the cause of Cluster headache center around the disruption of the normal circadian rhythm in the brain. This helps restore the normal circadian rhythm. Juliette: Juliette has a small amount of antihistamine and anti-inflammatory action which may help headache. It is primarily used for nausea and may aid in the absorption of other medications. HEADACHE DIET: Foods and beverages which may trigger migraine Note that only 20% of headache patients are food sensitive. You will know if you are food sensitiveif you get a headache consistently 20 minutes to 2 hours after eating a certain food. Only cut out a food if it causes headaches, otherwise you might remove foods you enjoy! What matters most for diet is to eat a well balanced healthy diet full of vegetables and low fat protein, and to not miss meals. Chocolate, other sweets ALL cheeses except cottage and cream cheese Dairy products, yogurt, sour cream, ice cream Liver Meat extracts (Bovril, Marmite, meat tenderizers) Meats or fish which have undergone aging, fermenting, pickling or smoking. These include: Hotdogs,salami,Lox,sausage, mortadellas,smoked salmon, pepperoni, Pickled rich Pods of broad alonzo (Danish beans, Kyrgyz pea pods, Serbian (lisa) beans, moy and navy beans Ripe avocado, ripe banana Yeast extracts or active yeast preparations such as Telles's or Kaiser's (commercial bakes goodsare permitted) Tomato based foods, pizza (lasagna, etc.) MSG (monosodium glutamate) is disguised as many things; look for these common aliases: Monopotassium glutamate Autolysed yeast Hydrolysed protein Sodium caseinate flavorings all natural preservatives Nutrasweet Avoid all other foods that convincingly provoke headaches. Headache Prevention Strategies: 1. Maintain a headache diary; learn to identify and avoid triggers. Common triggers include: Emotional triggers: Emotional/Upset family or friends Emotional/Upset occupation Business reversal/success Anticipation anxiety Crisis-serious Post-crisis periodNew job/position Physical triggers: Vacation Day Weekend Strenuous Exercise High Altitude Location New Move Menstrual Day Physical Illness Oversleep/Not enough sleep Weather changes Light: Photophobia or light sesnitivity treatment involves a balance between desensitization and reduction in overly strong input. Use dark polarized glasses outside, but not inside. Avoid bright or fluorescent light, but do not dim environment to the point that going into a normally lit room hurts. Consider FL- 41 tint lenses, which reduce the most irritating wavelengths without blocking too muchlight. These can be obtained at [employer] or [employer]: see list above. 2. Limit use of acute treatments (pyoc-fcw-lbfghcr medications, triptans, etc.) to no more than 2 days per week or 10 days per month to prevent medication overuse headache (rebound headache). 3. Follow a regular schedule (including weekends and holidays): Don't skip meals. Eat a balanced diet. 8 hours of sleep nightly. Minimize stress. Exercise 30 minutes per day. Being overweight is associated with a 5 times increased risk of chronic migraine. Keep well hydrated and drink 6-8 glasses of water per day. 4. Initiate non-pharmacologic measures at the earliest onset of your headache. Rest and quiet environment. Relax and reduce stress. Mwhcero7Kbsja is a free windy that can instruct you on some simple relaxtionand breathing techniques. Http://Kiio.Smeet is a free website that provides teaching videos on relaxation. Also, there are many apps that can be downloaded for mindful relaxation. An windy called YOGA NIDRA will help walk you through mindfulness. Cold compresses. 5. Don't wait!! Take the maximum allowable dosage of prescribed medication at the first sign of migraine. 6. Compliance: Take prescribed medication regularly as directed and at the first sign of a migraine. 7. Communicate: Call your physician when problems arise, especially if your headaches change, increase in frequency/severity, or become associated with neurological symptoms (weakness, numbness, slurred speech, etc.). 8. Headache/pain management therapies: Consider various complementary methods, including medication, behavioral therapy, psychological counselling, biofeedback, massage therapy, acupuncture, dry needling, and other modalities. Such measures may reduce the need for medications. Counseling for pain ma nagement, where patients learn to function and ignore/minimize their pain, seems to work very well. 9. Recommend changing family's attention and focus away from patient's headaches. Instead, emphasize daily activities. If first question of day is 'How are your headaches/Do you have a headache today?', then patient will constantly think about headaches, thus making them worse. Goal is to re-directattention away from headaches, toward daily activities and other distractions. 10. Helpful Websites: www.AmericanHeadacheSociety.org www.migrainetrust.org www.headaches.org www.migraine.org.uk www.achenet.org 11. HEADACHE EXPECTATIONS: There are many types of headaches, and only a rare few in which complete relief can be expected. Ingeneral, there is no cure for headache, especially migraine based headaches. There is nothing available that completely prevents headaches from occurring, breaking through, or having periodic flare-ups and fluctuations. Regardless of what you are using on a daily basis for prevention, episodic headaches should still be expected, and periods where frequency may escalate and fluctuate are unavoidable. There is no quick fix for most headaches. Furthermore, the longer you have had high frequency headaches (such as chronic daily headache), the longer it will likely take to expect any improvement. In fact, some people will never improve, regardless of how many medications or other treatments we try.Our treatment strategy is to evaluate for possible causes of your headache, although testing is usually always normal, even in cases of daily continuous headaches for years. Most types of headache such as migraine are electrical brain disorders (similar to how epilepsy is an electrical brain disorders). Therefore, there is no testing that will reveal this dysfunctional electrical circuitry suchon MRI, or other testing. We try to find a medication that may help lessen the frequency and/or severity of your headaches. The goal is not to completely stop them from happening, although if that happens, great! Different people respond to different medications, and some people just don't respond to anything, so it's usually a matter of trying different options. We can not predict if or when exac tly you will respond to a treatment that we provide. Preventive headache medications take 4-6 weeks to start working, and 2-3 months to see full effect,assuming you reach an effective dose. Therefore, calling or messaging frequently because you have aheadache flare prior to the 3 month kevyn is unlikely to change anything, and unfortunately there isnothing available that will expedite this, so please try to avoid this. Our recommendation will gene rally be to give it adequate time first. If you are unable to wait it out for medications to work, we can also try IV infusions for some temporary relief. O In general, the best that preventive medications or other treatments (including Botox) are able to offer in migraine management (variable in other headache types) is a 50% improvement in frequency and/or severity of headache. That is our goal, and any additional benefit is considered a bonus. Some people do significantly better than this, others do not get close to this. Therefore, if your headaches are not improving by at least 3 months on your preventive strategy, contact us and we can discuss further adjustments. Keep in mind that complete headache cure is not a realistic expectation. Our Team: The nursing staff, and medical assistants are a major part of YOUR TREATMENT TEAM and will be handling your phone calls, [employer] Messages and inquiries, if any. Unless explicitly told otherwise at the time of your office visit, your study results and ensuing treatment plans will be released via [employer]Native and discussed during your follow-up appointment. [employer]Native: Please ask the schedulers to give you an activation code. The main way of communication isby AdsNative rather than phone lines, so if you have not signed up, please do so. A[employer] is also theway that you can review your labs and testing. We are not able to contact everyone to tell them results are normal. If you do not hear back from us regarding testing you have had, it should be considered normal or within normal range. If you have any questions about the results, you are free to message us. A[employer]Native is meant for simple questions regarding medications, possible side effects, or other simplestraight forward questions in limited sentences, rather than multiple paragraphs of discussion. Op[employer] is not meant for, or efficient for these complex questions, extensive questions, extensive medication adjustments, complex new symptoms or concerns. These issues beyond simple questions require afollow up visit with myself, one of our physician assistants, nurse practitioners, or a Virtual Visit via computer or smart phone, as detailed further down. Refills: Please pay attention to when your refills will need to be renewed. Due to the volume of phone callsdaily, this could potentially take a few days, although we certainly try to honor your refill requests as soon as we can. You should call at least 1 week in advance of needing a refill to ensure you do not run out of medication. Keep in mind that refill requests on Fridays may not be filled until the following week. In regards to blood work, testing, and radiology reports these are released automatically to the patients. We do not comment on most testing on Admittort in a message or commentary unless there is a concern. You will not receive a message from me of the result unless there is a specific concern of the result I need you to address further in care with us or your primary medical team. Make sure to check your my chart email or windy. As an international referral center for syncope, autonomic dysfunction, general neurology, headachecare, neuromuscular disease, and other related conditions, seeing patients from across the world, we do not have the resource of time or staffing to address inquiries for accommodations. As such, we do not provide or complete requests for work accommodations, FMLA, disability, or other such forms. We recommend seeking guidance through your primary care provider for these requests. We are happy toprovide our office notes from your visits and other tests or evaluations performed through our clinic, which can be made available upon request to assist you with this process. [facility] NoteHNO ID: [id number] Author: RENETTA DEE PA-C Service: ? Author Type: Physician Airplane Pilot Commercial Type: Progress Notes Filed: 04/27/2024 09:19 Note Text: Neurology Outpatient Clinic Date: April 27, 2024 Patient Name: Napoleon Valles Referring physician: SELF Primary physician: Hoda Smith [address] [place] [address] Reason for Evaluation: Headaches Subjective HPI Napoleon Valles is a 28 year old female with history of osteogenesis imperfecta, migraine who presents for evaluation of headaches. Dr. Hoda Smith, RADIO TELEVISION TECHNICAL DIRECTOR is the PCP. Chart review: Had a baby last summer/fall. Followed by neuro at outside clinic, last seen last week. RANKIN started after traumatic intracranial hemorrhage when she was 13 years old.Had MRI many years ago Patient with chronic migraines, previously following other neurology until last week. Had increase in amitriptyline but has not noticed any benefit. Noting almost every day headaches. Describes frontal pain that occasionally radiates to the posterior aspect of the head and into the neck. Gets some nausea with this but no other migrainous symptoms. No autonomic features, new onset with Valsalva, position change or exertion. No new symptoms or concerns. Notes that her headaches started after she was 13 years old, tripped and fell while at school and sustained an intracranial hemorrhage, attributes this to her history of osteogenesis imperfecta. Notes that has been taking dkbm-hoi-ecklhdz medications almost daily because she wants out of Ubrelvy. Current Headache treatment Preventative: elavil 100mg, TPM 100mg Abortive: ubrelvy, OTC Medications effective? sometimes # of doses of abortive medications per month: daily Previous Medications: Ubrelvy ASA Fioricet Elavil Eletriptan Labetolol Imitrex TPM Effexor Amlodipine Maxalt Cymbalta Gabapentin Headache Description Onset: 13 years old Total headache days per month: daily Total headache attacks per month: daily Headache free days: No Duration of attacks: continuously Severity of headaches? Can be up to a 10/10 Onset to Peak: gradual Location: sometimes starts in forehead and then to the back of the head, both sides . Aura: None. Sometimes sees spots Prodrome:none. Accompanying symptoms: nausea, neck pain, agitation. Quality:sharp, throbbing, and burning. Worse with activity: sometimes Triggers: none, maybe depo. Cough/sneeze/valsalva as trigger: no Positional changes: No Most common time of day for headache to begin:anytime. Time missed from work or school: none Risk Factors Visual-Motion sensitivity: No Tobacco Use: No Alcohol Use: No Other substances: No Caffeine: Yes, iced coffee and sweet tea all day Water- sometimes Neck Pain /Back Pain: No Fibromyalgia: No History of Motor Vehicle Accident: No History of Traumatic Brain Injury and/or Concussion: Yes, 13 years old History of severe infection: No History of Syncope: No Obesity: No, Body mass index is 27 Eye doc- been a few months - no Family History Migraine or other headaches in the family: no Aneurysms in a first degree relative: No Brain tumors in the family: No Other neurological illness in the family: no ROS Review of Systems CONSTITUTIONAL: No reported fevers, chills, night sweats, or significant unintentional weight loss. EYES: No visual changes indicated. No eye pain or orbital swelling reported. HEENT: No hearing changes or vertiginous symptoms indicated. No history of nose bleeds reported. RESPIRATORY: No reported cough, wheezing and dyspnea. CARDIOVASCULAR: Negative for significant chest pain, and palpitations per report. GI: Negative for significant abdominal discomfort, blood in stools or black stools reported. No recent reported change in bowel habits. : No reported history of incontinence. No dark/cola colored urine reported. MUSCLOSKELETAL: No history of significant joint pain or swelling, or myalgias reported. SKIN: Negative for pertinent lesions, rash, and itching per report. HEMATOLOGY/ONCOLOGY: Negative for reported prolonged bleeding, bruising easily, and swollen nodes. ENDOCRINE: Negative for reported significant cold or heat intolerance, no reported goitrous neck swelling or polydipsia PSYCH: No reported depression or anxiety symptoms. No reported SI or HI. NEURO: Per HPI above. Sleep: has a 6 month old, frequent awakenings, Medications: Current Outpatient Medications Medication Sig Dispense Refill amitriptyline (ELAVIL) 100 mg tablet Take 100 mg by mouth daily at bedtime. levothyroxine 25 mcg cap Take 25 mcg by mouth daily before breakfast. propranolol HCl (PROPRANOLOL ORAL) Take by mouth. hydrOXYzine HCl (ATARAX) 10 mg tablet Take 10 mg by mouth three times a day as needed. pantoprazole DR (PROTONIX) 20 mg tablet Take 40 mg by mouth once daily. atogepant (QULIPTA (more content not included)...[facility] 04-27-2024 History of Present illness Narrative* Renetta Dee PA-C - 04/27/2024 8:21 AM EST Images from the original note were not included. Neurology Outpatient Clinic Date: April 27, 2024 Patient Name: Napoleon Valles Referring physician: SELF Primary physician: Hoda [address] [place] [address] Reason for Evaluation: Headaches Subjective HPI Napoleon Valles is a 28 year old female with history of osteogenesis imperfecta, migraine who presents for evaluation of headaches. Dr. Hoda Smith, HARRY is the PCP. Chart review: Had a baby last summer/fall. Followed by neuro at outside clinic, last seen last week. RANKIN started after traumatic intracranial hemorrhage when she was 13 years old.Had MRI many years ago Patient with chronic migraines, previously following other neurology until last week. Had increase in amitriptyline but has not noticed any benefit. Noting almost every day headaches. Describes frontal pain that occasionally radiates to the posterior aspect of the head and into the neck. Gets some nausea with this but no other migrainous symptoms. No autonomic features, new onset with Valsalva, position change or exertion. No new symptoms or concerns. Notes that her headaches started after she was 13 years old, tripped and fell while at school and sustained an intracranial hemorrhage, attributes this to her history of osteogenesis imperfecta. Notes that has been taking bxdm-ifb-usovkfk medic ations almost daily because she wants out of Ubrelvy. Current Headache treatment Preventative: elavil 100mg, TPM 100mg Abortive: ubrelvy, OTC Medications effective? sometimes # of doses of abortive medications per month: daily Previous Medications: Ubrelvy ASA Fioricet Elavil Eletriptan Labetolol Imitrex TPM Effexor Amlodipine Maxalt Cymbalta Gabapentin Headache Description Onset: 13 years old Total headache days per month: daily Total headache attacks per month: daily Headache free days: No Duration of attacks: continuously Severity of headaches? Can be up to a 10/10 Onset to Peak: gradual Location: sometimes starts in forehead and then to the back of the head, both sides . Aura: None. Sometimes sees spots Prodrome:none. Accompanying symptoms: nausea, neck pain, agitation. Quality:sharp, throbbing, and burning. Worse with activity: sometimes Triggers: none, maybe depo. Cough/sneeze/valsalva as trigger: no Positional changes: No Most common time of day for headache to begin:anytime. Time missed from work or school: none Risk Factors Visual-Motion sensitivity: No Tobacco Use: No Alcohol Use: No Other substances: No Caffeine: Yes, iced coffee and sweet tea all day Water- sometimes Neck Pain /Back Pain: No Fibromyalgia: No History of Motor Vehicle Accident: No History of Traumatic Brain Injury and/or Concussion: Yes, 13 years old History of severe infection: No History of Syncope: No Obesity: No, Body mass index is 27 Eye doc- been a few months - no Family History Migraine or other headaches in the family: no Aneurysms in a first degree relative: No Brain tumors in the family: No Other neurological illness in the family: no ROS Review of Systems CONSTITUTIONAL: No reported fevers, chills, night sweats, or significant unintentional weight loss. EYES: No visual changes indicated. No eye pain or orbital swelling reported. HEENT: No hearing changes or vertiginous symptoms indicated. No history of nose bleeds reported. RESPIRATORY: No reported cough, wheezing and dyspnea. CARDIOVASCULAR: Negative for significant chest pain, and palpitations per report. GI: Negative for significant abdominal discomfort, blood in stools or black stools reported. No recent reported change in bowel habits. : No reported history of incontinence. No dark/cola colored urine reported. MUSCLOSKELETAL: No history of significant joint pain or swelling, or myalgias reported. SKIN: Negative for pertinent lesions, rash, and itching per report. HEMATOLOGY/ONCOLOGY: Negative for reported prolonged bleeding, bruising easily, and swollen nodes. ENDOCRINE: Negative for reported significant cold or heat intolerance, no reported goitrous neck swelling or polydipsia PSYCH: No reported depression or anxiety symptoms. No reported SI or HI. NEURO: Per HPI above. Sleep: has a 6 month old, frequent awakenings, Medications: Current Outpatient Medications Medication Sig Dispense Refill amitriptyline (ELAVIL) 100 mg tablet Take 100 mg by mouth daily at bedtime. levothyroxine 25 mcg cap Take 25 mcg by mouth daily before breakfast. propranolol HCl (PROPRANOLOL ORAL) Take by mouth. hydrOXYzine HCl (ATARAX) 10 mg tablet Take 10 mg by mouth three times a day as needed. pantoprazole DR (PROTONIX) 20 mg tablet Take 40 mg by mouth once daily. atogepant (QULIPTA) 60 mg tablet Take 1 tablet (60 mg) by mouth once daily. 30 tablet 2 predniSONE (DELTASONE) 10 mg tablet Take 4 tabs daily for 3 days, then 2 tabs daily for 3 days, then 1 tab daily for 3 days with food. 21 tablet 0 cyclobenzaprine (FLEXERIL) 10 mg tablet Take 1 tablet by mouth three times daily as needed for muscle spasm. 18 tablet 0 fluticasone propionate (XHANCE) 93 mcg/actuation nasal spray Use 2 Sprays in the nose twice daily. (Patient not taking: Reported on 07/12/2022) hydrocortisone (ANUSOL-HC) 25 mg suppository 1 Suppository by RECTAL route twice daily. (Patient not taking: No sig reported) 24 Suppository 2 LINZESS 290 mcg capsule Take 145 mcg by mouth once daily. (Patient not taking: No sig reported) medroxyPROGESTERone (DEPO-PROVERA) 400 mg/mL susp Inject 400 mg intramuscularly every 12 weeks. (Patient not taking: No sig reported) fluticasone (FLONASE) 50 mcg/actuation nasal spray Use 2 Sprays in each nostril once daily. Rinse mouth after use. (Patient not taking: No sig reported) 1 Bottle 0 nystatin (MYCOSTATIN) ointment APPLY 2 TIMES A DAY TO BURNING VAGINAL AREA (Patient not taking: No sig reported) sodium chloride (SALINE MIST) 0.65 % nasal spray Use 1 [place] in the nose every 6 hours as needed for Cold/Allergy Symptoms. (Patient not taking: No sig reported) 1 Bottle 0 No current facility-administered medications for this visit. ROS: Her ROS was positive for that mentioned in the HPI. Otherwise a 10-point ROS was completed andwas negative. ALLERGIES Allergen Reactions Bactrim [Sulfametho* Rash Rash and GI upset Morphine Other: See Comments Chest pain, elevated heart rate Nurtec Odt [Rimegep* Rash Past Medical History: PAST MEDICAL HISTORY Diagnosis Date Migraine headache Osteogenesis imperfecta 02/21/2018 Preeclampsia Seasonal allergies Thoracogenic scoliosis of thoracolumbar region 02/21/2018 Family History: No family history on file. Also includes: . Social History: Social History Tobacco Use Smoking status: Never Smokeless tobacco: Never Vaping Use Vaping status: Never Used Substance Use Topics Alcohol use: Never Drug use: Never Objective 04/27/24 0827 BP: 119/86 Pulse: 104 Resp: 18 SpO2: 97% Weight: 61.1 kg (134 lb 9.6 oz) Physical Examination General Appearance: Well appearing, alert, in no acute distress, well-hydrated, well nourished. Head: Normocephalic Pulm: Breathing comfortably Neck: Supple Psych: Cooperative, appropriate affect Neurological Examination: Mental Status: Alert and Oriented to Place, Person, Time and Situation and Patient follows commands.. Language: Is intact to Comprehension, Fluency and Repetition Cranial Nerves: CNII: Visual acuity normal, visual bell full to confrontation CNIII, IV, : Pupils equal, round and reactive to light, full extraoccular movements, without nystagmus CN V: Facial sensation intact bilaterally to fine touch CN VII: Facial muscles symmetric and strong CN VIII: Hears finger rub well bilaterally CN IX: Gag Reflex not examined CN X: Palate elevates symmetrically CN XI: Full strength shoulder shrug bilaterally CN XII: Tongue protrusion full and midline Motor Exam: Tone - Normal Tone noted in all extremities Bulk - Normal bulk noted in all muscles tested. Inspection - Normal, no fasciculations or tremors noted. Power: MUSCLES Upper Extremity RIGHT LEFT Deltoid 5/5 5/5 Biceps 5/5 5/5 Triceps 5/5 5/5 Wrist Extension 5/5 5/5 Wrist Flexion 5/5 5/5 Finger Flexion 5/5 5/5 Finger Extension 5/5 5/5 Finger Abd 5/5 5/5 Finger Add 5/5 5/5 MUSCLES Lower Extremity RIGHT LEFT Hip Flexion 5/5 5/5 Hip Extension 5/5 5/5 BiFem (Knee Flex) 5/5 5/5 Quads (Knee Ext) 5/5 5/5 Gastroc (Plantflx) 5/5 5/5 TibAnt (Dorsiflx) 5/5 5/5 FlxHLong (Toe Flex) 5/5 5/5 ExtHLong (Toe Ext) 5/5 5/5 Sensory Examination Sensation is intact to light touch. Negative extinction to double simultaneous stimulation Reflexes Right Left Bicep 2/4 2/4 BrRad 2/4 2/4 Knee 2/4 2/4 Ankle 2/4 2/4 Coordination: finger-to- nose-finger intact bilaterally and mxum-gr-ipvh intact bilaterally. Gait: Patient's gait is normal DATA REVIEWED Actual films/image/tracing reviewed and summarized as follows: None available Old records reviewed and summarized as follows: Neurology, primary care Assessment/Plan Assessment & Plan: Napoleon Valles is a 28 year old female with a history of migraines and osteogenesis imperfecta. Her examination demonstrates no neurologic deficits. Patient with chronic headaches since she was 13 years old after she sustained intracranial hemorrhage from a trip and fall, history of osteogenesis imperfecta. Has been following with [facility], has tried and failed multiple medications for her migraines but notes her headaches have steadily increased. Notes almost daily headaches, described as holocephalic and associated with nausea,moderate to severe in severity. No photophobia, phonophobia, or autonomic features. Does take dfovbuysf-bve-evhjnee medications when she runs out of Ubrelvy likely contributing to medication overuseheadache. There was thought her symptoms may be related to Depo-Provera, but notes no change with headaches after having this. No red flag signs or symptoms with her headaches at 1 additional imagingin the past, that she did have MRI imaging in the past and this was reported on neurology notes, this was normal. She headaches continue to worsen or be resistant to treatment may consider reimaging in the future. For treatment of headaches, discussed migraine prevention and abortive relief. However, discussed the importance of weaning off of daily Tylenol and ibuprofen use as this is likely contributing to her daily headache. As she has tried many antidepressants, antiseizure medicines and beta-blockers in the past felt appropriate to move onto other migraine targeted medications. Deferring Botox therapy and injectables at this time due to aversion of needles, discussed Qulipta and patient is amenable to starting this. Will start Qulipta 60 mg daily, will continue with Ubrelvy for abortive relief as this is helpful for her. Encouraged other conservative therapy as well, patient does not drink water throughout the day primarily drinks caffeinated beverages. Discussed this could also be contributingto her headaches and encouraged increased water intake. Patient agreeable to treatment plan of care at this time, all questions were answered. Patient to follow-up in 3 months. Napoleon was seen today for new patient evaluation. Diagnoses and all orders for this visit: Intractable chronic migraine without aura and without status migrainosus - atogepant (QULIPTA) 60 mg tablet; Take 1 tablet (60 mg) by mouth once daily. Medication overuse headache All options for treatment discussed. Preventative:Qulipta 60mg Abortive: Ubrelvy 100mg She should return to see me in 3 months. I spent a total of 50 minutes on the date of the service which included preparing to see the patient, erjy-lc-rpgj patient care, completing clinical documentation, obtaining and/or reviewing separately obtained history, performing a medically appropriate examination, counseling and educating the pat ient/family/caregiver, and ordering medications, tests, or procedures. Renetta Dee PA-C [facility] Neu[facility] This document has been created with the use of voice recognition technology. It may contain inaccuracies: (e.g. misspellings, inaccurate syntax or word sense) that have escaped review. documented in this encounterMercy Memorial Hospital01-29-2025 Evaluation note* Diagnosis Onset Date Resolution Status Admit Date Pelvic floor dysfunction acute April 20, 2024 8:17am Migraine headache chronic April 20, 2024 8:17am Vaginal discharge deleted April 20, 2024 8:17am Migraine headache chronic April 21, 2024 8:18am Breakthrough bleeding on dep o provera acute May 02 8:26am Contraception management resolved May 02, 2024 8:26am Yeast infection deleted May 18, 2024 8:01am Breakthrough bleeding on dep o provera acute June 23, 2024 1:34pm Urinary frequency resolved June 232024 1:34pm Vaginal pain resolved June 23 1:34pm Breakthrough bleeding on dep o provera acute June 29, 2024 11:23am Levator spasm acute July 25 10:43am Vaginal discharge acute July 10:43am [facility] Work Phone: 1(824) 167-680701-29-2025 Evaluation note* Diagnosis Onset Date Resolution Status Admit Date Pelvic floor dysfunction acute April 20, 2024 8:17am Migraine headache chronic April 20, 2024 8:17am Vaginal discharge deleted April 20, 2024 8:17am Migraine headache chronic April 21, 2024 8:18am Breakthrough bleeding on dep o provera acute May 02 8:26am Contraception management resolved May 02, 2024 8:26am Yeast infection deleted May 18, 2024 8:01am Breakthrough bleeding on dep o provera acute June 23, 2024 1:34pm Urinary frequency resolved June 232024 1:34pm Vaginal pain resolved June 23 1:34pm Breakthrough bleeding on dep o provera acute June 29, 2024 11:23am Levator spasm acute July 25 10:43am Vaginal discharge acute July 10:43am Constipation noneactive July 28 8:12am Abnormal weight gain acute August 08, 2024 10:14am Levator spasm acute August 08 10:14am Vaginal discharge acute July 10:14am [facility] [employer] [facility] Work Phone: 1(472) 657-452601-29-2025 Evaluation note* Diagnosis Onset Date Resolution Status Admit Date Pelvic floor dysfunction acute April 20, 2024 8:17am Migraine headache chronic April 20, 2024 8:17am Vaginal discharge deleted April 20, 2024 8:17am Migraine headache chronic April 21, 2024 8:18am Breakthrough bleeding on dep o provera acute May 02 8:26am Contraception management resolved May 02, 2024 8:26am Yeast infection deleted May 18, 2024 8:01am Breakthrough bleeding on dep o provera acute June 23, 2024 1:34pm Urinary frequency resolved June 232024 1:34pm Vaginal pain resolved June 23 1:34pm Breakthrough bleeding on dep o provera acute June 29, 2024 11:23am Levator spasm acute July 25 10:43am Vaginal discharge acute July 10:43am Constipation noneactive July 28 8:12am Abnormal weight gain acute August 08, 2024 10:14am Levator spasm acute August 08 025 10:14am Vaginal discharge acute July 10:14am Constipation inactive August 16 7:46am [facility] [employer] [facility] Work Phone: 1(562) 421-846012-09-2024 Evaluation note* Diagnosis Onset Date Resolution Status Admit Date Migraine headache chronic Decembe r 2023 8:19am Pelvic floor dysfunction acute April 20, 2024 8:17am Migraine headache chronic April 20, 2024 8:17am Vaginal discharge deleted April 20, 2024 8:17am Migraine headache chronic April 21, 2024 8:18am Breakthrough bleeding on dep o provera acute May 02 8:26am Contraception management acute May 02, 2024 8:26am Yeast infection acute May 18, 2024 8:01am Breakthrough bleeding on dep o provera acute June 23, 2024 1:34pm Urinary frequency acute June 232024 1:34pm Vaginal pain acute June 23 1:34pm [facility] Work Phone: 1(156) 734-694611-20-2024 Evaluation note* Diagnosis Onset Date Resolution Status Admit Date Yeast infection deleted February 10, 2024 9:10am Migraine headache chronic Decembe r 2023 8:19am Pelvic floor dysfunction acute April 20, 2024 8:17am Migraine headache chronic April 20, 2024 8:17am Vaginal discharge deleted April 20, 2024 8:17am Migraine headache chronic April 21, 2024 8:18am Breakthrough bleeding on dep o provera acute May 02 8:26am Contraception management acute May 02, 2024 8:26am Yeast infection acute May 18, 2024 8:01am [facility] Work Phone: 1(830) 865-511307-13-2024 [facility]04-05-2024 Telephone encounter Note* Telephone Encounter - Jodi No RN - 06/26/2023 9:25 AM EDT S: Patient spoke with [facility] nurse regarding vaginal discharge. B: Onset of symptoms/concern: started 4 weeks ago, 24 weeks . A: Patient states she has thick johnson/white vaginal discharge. States she has burning to the vagina area and irritation to the vaginal area, it is constant. Denies fever. States she called her OB lastweek and they cancelled her appointment. Patient thinks she may have a yeast infection. R: Advised to call her OB office again, if they won't see her she can go to urgent care for evaluation, also could ask them what can she take for yeast infection since she is . No further needs at this time. Patient instructed to call back with new or worsening symptoms. Reason for Disposition Abnormal color vaginal discharge (i.e., yellow, green, ware) Protocols used: - Vaginal Labkuhtra-NQQDH-KB [facility] [id number] Miscellaneous Notes* Telephone Encounter - Jodi No RN - 06/26/2023 9:25 AM EDT S: Patient spoke with [facility] nurse regarding vaginal discharge. B: Onset of symptoms/concern: started 4 weeks ago, 24 weeks . A: Patient states she has thick johnson/white vaginal discharge. States she has burning to the vagina area and irritation to the vaginal area, it is constant. Denies fever. States she called her OB lastweek and they cancelled her appointment. Patient thinks she may have a yeast infection. R: Advised to call her OB office again, if they won't see her she can go to urgent care for evaluation, also could ask them what can she take for yeast infection since she is . No further needs at this time. Patient instructed to call back with new or worsening symptoms. Reason for Disposition Abnormal color vaginal discharge (i.e., yellow, green, ware) Protocols used: - Vaginal Egygqafbl-JJBGQ-WV * Telephone Encounter - Hoda Rogers RN - 06/25/2023 1:57 PM EDT S: Patient spoke with [facility] nurse regarding 24 weeks; thick johnson/white discharge with odor and burning B: Onset of symptoms/concern few days A: Patient endorses thick, odorous, johnson/white vaginal discharge with itching. Denies abdominal pain, fever, bleeding, redness, swelling, change in movement, or open areas. Patient lives in [place] and has been managed my [facility] for her . She is wanting to be seen stating the UrgentCare near her won't treat her since she is . She is requesting [place] office. R: Offered soonest available at [facility] and [facility] OB but patient declined stating those offices are almost 2 hours from her. Please follow up with patient regarding scheduling needs/concerns as nothing available in the near future. Patient requesting [place] office. Patient educated on s/s to call back and report. Patient understands care advice. No further needs at this time. Patient instructed to callback with new or worsening symptoms. Reason for Disposition Abnormal color vaginal discharge (i.e., yellow, green, ware) Protocols used: - Vaginal Yagsgnxbe-PXMWH-JW documented in this encounterSSelect Medical Specialty Hospital - Southeast [id number] Telephone encounter Note* Telephone Encounter - Debbiemickey Reynaga - 06/26/2023 8:58 AM EDT Name of Caller: Napoleon Contact Reason for Appointment: Pt called and spoke with a nurse for vaginal discharge and odor with burning. Pt called back and asked for an appointment with Dr. Noel. Pt is currently and has care outside of [facility]. Dr. Noel does not see OB patients. Pt was advised she could see Dr. Noel as soon as she delivered. Spoke with backline and was told to advise Pt to call her current OB to make an appointment. [facility] does not have any of her records. Pt was told she could transfer care but pt declined. Office Name: [place] [id number] Miscellaneous Notes* Telephone Encounter - Debbie Reynaga - 06/26/2023 8:58 AM EDT Name of Caller: Napoleon Contact Reason for Appointment: Pt called and spoke with a nurse for vaginal discharge and odor with burning. Pt called back and asked for an appointment with Dr. Noel. Pt is currently and has care outside of [facility]. Dr. Noel does not see OB patients. Pt was advised she could see Dr. Noel as soon as she delivered. Spoke with backline and was told to advise Pt to call her current OB to make an appointment. [facility] does not have any of her records. Pt was told she could transfer care but pt declined. Office Name: [place] documented in this encounterSSelect Medical Specialty Hospital - Southeast [id number] Telephone encounter Note* Telephone Encounter - Hoda Rogers RN - 06/25/2023 1:57 PM EDT S: Patient spoke with [facility] nurse regarding 24 weeks; thick johnson/white discharge with odor and burning B: Onset of symptoms/concern few days A: Patient endorses thick, odorous, johnson/white vaginal discharge with itching. Denies abdominal pain, fever, bleeding, redness, swelling, change in movement, or open areas. Patient lives in [place] and has been managed my [facility] for her . She is wanting to be seen stating the UrgentCare near her won't treat her since she is . She is requesting [place] office. R: Offered soonest available at [facility] and [facility] OB but patient declined stating those offices are almost 2 hours from her. Please follow up with patient regarding scheduling needs/concerns as nothing available in the near future. Patient requesting [place] office. Patient educated on s/s to call back and report. Patient understands care advice. No further needs at this time. Patient instructed to callback with new or worsening symptoms. Reason for Disposition Abnormal color vaginal discharge (i.e., yellow, green, ware) Protocols used: - Vaginal Oprnxbacd-VHHYG-PV [facility] [id number] Telephone encounter Note* Telephone Encounter - Petra Amaya - 06/25/2023 10:09 AM EDT Lm for pt to call [facility] obgyn per web request [facility] [id number] Miscellaneous Notes* Telephone Encounter - Petra AnupPrincess Amaya - 06/25/2023 10:09 AM EDT Lm for pt to call zion murillo per web request documented in this [facility]03-07-2024 Progress note Author Natasha Correia [facility] May 28, 2023 11:22am Note Date/Time May 28, 2023 11:2 1am [facility] Medical Records Department [address] [place] [address] OB Triage Progress Note 05/28/23 1119 MR#: [id number] Acct: [id number] Name: NAPOLEON WILLIS Rep #:[id number] : 1995 27 From: Natasha quinones MD PCP: HARI Dimas Status: REG CLI Y DOS: Location: [place] [address] Progress Notes Date of Service: 05/28/23 Progress Note: patient seen for abdominal trauma, fell after tripping at 2 am, some abdominal pain. cbc and fibrinogen reassuring. no contractions, fht reassuring, dc home fu as scheudled. Laboratory Studies: Laboratory Tests 05/28/23 Range/Units 09:40 WBC 9.4 (4.4-11.0) K/mm3 RBC 3.75 L (4.2-5.4) M/mm3 Hgb 11.3 L (12.0-15.0) g/dL Hct 33.3 L (37-47) % MCV 88.8 (81-99) fL MCH 30.1 (27.0-32.0) pg MCHC 33.9 (32-36) g/dL RDW Std Deviation 43.0 (35.1-43.9) fl RDW Coeff of Sharmin 13.2 (11.6-14.6) % Plt Count 310 (150-450) K/mm3 MPV 9.4 (6.2-12.0) fl Immature Gran % (Auto) 1.100 H (0.0-0.9) % Neut % (Auto) 76.5 H (47-70) % Lymph % (Auto) 14.4 L (19-41) % Mercer % (Auto) 6.0 (0-10) % Eos % (Auto) 1.4 (0-5) % Baso % (Auto) 0.6 (0-1) % Absolute Neuts (auto) 7.2 (2.0-7.7) X10^3/uL Absolute Lymphs (auto) 1.36 (0.83-4.51) X10^3/uL Nucleated RBC % 0 (0-5) % Fibrinogen 475 H (203-444) mg/dl 05/28/23 1122 <Electronically signed by Natasha cali MD> Date _ Natasha Correia MD Cosigner Signature (if applicable): Date CC: ELECTRICAL SYSTEMS DESIGNER-C ELECTRICAL SYSTEMS DESIGNER. Hoda Smith; Dr. Natasha Correia MD ~ Signed [facility] Work Phone: 1(407) 979-168102-16-2024 Note. MICRO - Microbiology PROCEDURE: Affirm Pathogens DNA [...] Locations *1: This test was performed at: [facility], [address] [place] [address], [id number] , [facility] ([place])03-09-2023 Note. MICRO - Microbiology PROCEDURE: Culture Wound Aerobic with Gram Stain [*1] SOURCE: Wound (surface) BODY SITE: Vagina COLLECTED DATE/TIME: 03/05/2023 12:30 EST RECEIVED DATE/TIME: 03/06/2023 17:33 EST START DATE/TIME: 03/06/2023 17:34 EST FREE TEXT SOURCE: FINAL REPORTS Final Report [] Verified Date/Time/Personnel: 03/09/2023 07:52 EST Normal Vaginal Sean: Present Neisseria gonorrhoeae: Negative PRELIMINARY REPORTS Preliminary Report [] Verified Date/Time/Personnel: 03/07/2023 11:43 EST Normal Vaginal Sean: Present Neisseria gonorrhoeae: Pending STAINS GS [] Verified Date/Time/Personnel: 03/06/2023 22:26 EST 2+ Epithelial cells 4+ Gram Positive Rods Performing Locations *1: This test was performed at: [facility], [address] [place] [address], [facility] , [facility] ([place])01-27-2023 History of Present illness Narrative* Jessa Noel MD - 01/27/2023 9:30 AM EST CC: Chief Complaint Patient presents with Vaginal Pain HPI: 27 y.o. No obstetric history on file. Here with vestibular burning Started 2 weeks ago. She first went to urgent care, given Rx fluconazole. No relief Went to her [facility] in [place], vaginal culture + E. Coli- Rx Augmentin. 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 documented in this [facility]11-02-2023 Telephone encounter Note* Telephone Encounter - Charity Thapa RN - 01/22/2023 2:51 PM EDT S: Patient spoke with [facility] nurse regarding vaginal burning B: Onset of symptoms/concern >2 weeks A: Symptoms started 2 1/2 weeks ago, was seen, prescribed Amoxicillin, on day 6, states she had e.coli. Now endorsing pelvic pain, constant vaginal burning. Feels slightly nauseated. Denies: fever, chills, discharge, odor, bleeding, burning with urination. Patient has seen Dr. Noel in the past. Lives in [place] so would like appointment in closest office if possible. R: Patient declined sooner appointment this week due to scheduling conflicts and location. Called the Pelvic Health clinic at [facility] and spoke with OK to schedule patient in new patient slot at 9:30 and change to office visit. Address of office verified. Patient understands care advice. No further needs at this time. Patient instructed to call back with new or worsening symptoms. Reason for Disposition Patient wants to be seen Protocols used: Vaginal Uollvsgn-DVVBB-XH [facility] [id number] Miscellaneous Notes* Telephone Encounter - Charity Thapa RN - 01/22/2023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 Status Dates Анна Goldstein ELECTRICAL SYSTEMS DESIGNER, ELECTRICAL SYSTEMS DESIGNER-C Family Provider Active Dr. Beryl Mcmillan , DO Primary Care Provider Active Team Status: Inactive Member Role Status Dates Dr. Beryl Mcmillan , DO Primary Care Provider, Referr ing Provider Active Tonia Iverson ELECTRICAL SYSTEMS DESIGNER, ELECTRICAL SYSTEMS DESIGNER-C Attending Provider Active Team Status: Inactive Member Role Status Dates Dr. Beryl Mcmillan , DO Primary Care Provider Active Tonia Iverson ELECTRICAL SYSTEMS DESIGNER, ELECTRICAL SYSTEMS DESIGNER-C Attending Provider Active Team Status: Inactive Member Role Status Dates Dr. Beryl Mcmillan , DO Primary Care Provider Active Dr. Natasha Correia MD Attending Provider, Referr ing Provider Active Team Status: Active Member Role Status Dates Анна Goldstein ELECTRICAL SYSTEMS DESIGNER, ELECTRICAL SYSTEMS DESIGNER-C Family Provider Active ELECTRICAL SYSTEMS DESIGNERPrincess Smith , ELECTRICAL SYSTEMS DESIGNER-C Primary Care Provider Activ e Team Status: Inactive Member Role Status Dates Dr. Natasha Correia MD Attending Provider Active ELECTRICAL SYSTEMS DESIGNER. Hoda Smith , ELECTRICAL SYSTEMS DESIGNER-C Primary Care Provider, Refe rring Provider Active Team Status: Inactive Member Role Status Dates ELECTRICAL SYSTEMS DESIGNERPrincess Smith , ELECTRICAL SYSTEMS DESIGNER-C Primary Care Provider Activ e Dr. Natasha Correia MD Attending Provider, Referr ing Provider Active Team Status: Inactive Member Role Status Dates ELECTRICAL SYSTEMS DESIGNER. Hoda Valdezerer , ELECTRICAL SYSTEMS DESIGNER-C Primary Care Provider, Refe rring Provider Active Dr. Lenka Thomas DO Attending Provider Activ e Team Status: Inactive Member Role Status Dates ELECTRICAL SYSTEMS DESIGNER. Hoda Ungerer , ELECTRICAL SYSTEMS DESIGNER-C Primary Care Provider, Refe rring Provider Active Felicita Baron CNM Attending Provider Active Team Status: Inactive Member Role Status Dates ELECTRICAL SYSTEMS DESIGNER. Hoda Valdezerer , ELECTRICAL SYSTEMS DESIGNER-C Primary Care Provider Activ e Felicita Baron CNM Attending Provider Active Team Status: Inactive Member Role Status Dates ELECTRICAL SYSTEMS DESIGNER. Hoda Ungerer , ELECTRICAL SYSTEMS DESIGNER-C Primary Care Provider, Refe rring Provider Active Tonia Iverson ELECTRICAL SYSTEMS DESIGNER, ELECTRICAL SYSTEMS DESIGNER-C Attending Provider Active Team Status: Inactive Member Role Status Dates ELECTRICAL SYSTEMS DESIGNER. Hoda Ungerer , ELECTRICAL SYSTEMS DESIGNER-C Primary Care Provider, Refe rring Provider Active Portia Garcia CNM Attending Provider Active Team Status: Inactive Member Role Status Dates ELECTRICAL SYSTEMS DESIGNER. Hoda Ungerer , ELECTRICAL SYSTEMS DESIGNER-C Primary Care Provider Activ e Portia Jose , CNM Attending Provider, Referring Pro vider Active Team Status: Active Member Role Status Dates HARI Dimas Primary Care Provider Mich Correia MD Attending Nori owens, Referring Provider, Other Provider Active Team Status: Inactive Member Role Status Dates HARI Dimas Primary Care Provider Mich Thomas DO Attending Provider, Refe rring Provider Active Environmental Epidemiologist Relationship Specialty Start Date End Date Dy, Lenka Hebert DO [address] [phone] PCP - General Internal Medicine 02/10/22 Environmental Epidemiologist Relationship Specialty Start Date End Date Lenka Marks DO [address] [phone] PCP - General Internal Medicine 02/10/22 Environmental Epidemiologist Relationship Specialty Start Date End Date LeonardLenka DO [address] [phone] PCP - General Internal Medicine 02/10/22 Team Status: Active Member Role Status Dates HARI Dimas Primary Care Provider Elvira Garcia CNM Attending Provider, Referring Pro vider Active Environmental Epidemiologist Relationship Specialty Start Date End Date Beryl Mcmillan DO [address] [place] [address] PCP - General Family Medicine 10/09/19 Environmental Epidemiologist Relationship Specialty Start Date End Date Hoda Smith APRN-RADIO TELEVISION TECHNICAL DIRECTOR [address] [facility] [address] [place] [address] PCP - General Family Medicine 03/30/23 Irma Coronel CGC [place], [place] [id number] Genetic Counselor Genetics 07/08/16 Natasha Correia MD [address] [place], [place] [id number] Director Prospect Obstetrics Gynecology 08/23/18 Rekha Felder MD [place], [place] [id number] Attending Provider Medical Clinical Genetics 09/29/23 Natan Funes MD [address] [place] [address], [facility] [address] [place], [place] [id number] Attending Provider Medical Clinical Genetics 03/08/24 Environmental Epidemiologist Relationship Specialty Start Date End Date Hoda Smith CNP [address] [place] [id number] PCP - General Family Medicine 04/11/24 Environmental Epidemiologist Relationship Specialty Start Date End Date Hoda Smith CNP [address] [place] [address] PCP - General Family Medicine 04/11/24 Environmental Epidemiologist Relationship Specialty Start Date End Date Hoda Smith CNP [address] [place] [address] PCP - General Family Medicine 04/11/24 Environmental Epidemiologist Relationship Specialty Start Date End Date Hoda Smith CNP [address] [place] [address] PCP - General Family Medicine 04/11/24 Environmental Epidemiologist Relationship Specialty Start Date End Date Hoda Smith CNP [address] [place] [address] PCP - General Family Medicine 04/11/24 Team Status: Inactive Member Role Status Dates NP. Hoda Smith , ELECTRICAL SYSTEMS DESIGNER-C Primary Care Provider Activ e Start: February 10, 2024 End: February 10, 2024 NP. Hoda Smith ELECTRICAL SYSTEMS DESIGNER-C Referring Provider Active Start: February 10, 2024 End: February 10, 2024 Portia Garcia CNM Attending Provider Active S tart: February 10, 2024 End: February 10, 2024 Team Status: Inactive Member Role Status Dates NP. Hoda Smith ELECTRICAL SYSTEMS DESIGNER-C Primary Care Provider Activ e Start: February 10, 2024 End: February 10, 2024 Portia Garcia CNM Attending Provider Active S tart: February 10, 2024 End: February 10, 2024 Portia Garcia CNM Referring Provider Active S tart: February 10, 2024 End: February 10, 2024 Team Status: Inactive Member Role Status Dates NP. Hoda Smith , ELECTRICAL SYSTEMS DESIGNER-C Primary Care Provider Activ e Start: February 16, 2024 End: February 16, 2024 Portia Garcia CNM Attending Provider Active S tart: February 16, 2024 End: February 16, 2024 Portia Garcia CNM Referring Provider Active S tart: February 16, 2024 End: February 16, 2024 Team Status: Inactive Member Role Status Dates NP. Hoda Smith ELECTRICAL SYSTEMS DESIGNER-C Primary Care Provider Activ e Start: February 29, 2024 End: February 29, 2024 NP. Hoda Smith ELECTRICAL SYSTEMS DESIGNER-C Referring Provider Active Start: February 29, 2024 End: February 29, 2024 Dr. Rajesh Orellana MD Attending Provider Active Start: February 29, 2024 End: February 29, 2024 Team Status: Inactive Member Role Status Dates NP. Hoda Smith , ELECTRICAL SYSTEMS DESIGNER-C Primary Care Provider Activ e Start: April 20, 2024 End: April 20, 2024 NP. Hoda Smith ELECTRICAL SYSTEMS DESIGNER-C Referring Provider Active Start: April 20, 2024 End: April 20, 2024 Sada Barkman , ELECTRICAL SYSTEMS DESIGNER-C Attending Provider Active Start: April 20, 2024 End: April 20, 2024 Team Status: Inactive Member Role Status Dates ELECTRICAL SYSTEMS DESIGNER. Hoda Valdezdennise , ELECTRICAL SYSTEMS DESIGNER-C Primary Care Provider Activ e Start: April 20, 2024 End: April 20, 2024 Sada Christianson ELECTRICAL SYSTEMS DESIGNER-C Attending Provider Active Start: April 20, 2024 End: April 20, 2024 Sada Christianson ELECTRICAL SYSTEMS DESIGNER-C Referring Provider Active Start: April 20, 2024 End: April 20, 2024 Team Status: Inactive Member Role Status Dates ELECTRICAL SYSTEMS DESIGNER. Hoda Valdezmary jor , ELECTRICAL SYSTEMS DESIGNER-C Primary Care Provider Activ e Start: April 21, 2024 End: April 21, 2024 ELECTRICAL SYSTEMS DESIGNER. Hodakeira Gleasonr , ELECTRICAL SYSTEMS DESIGNER-C Referring Provider Active Start: April 21, 2024 End: April 21, 2024 Dr. Rajesh Orellana MD Attending Provider Active Start: April 21, 2024 End: April 21, 2024 Team Status: Inactive Member Role Status Dates ELECTRICAL SYSTEMS DESIGNER. Hodaosiel Smith , ELECTRICAL SYSTEMS DESIGNER-C Primary Care Provider Activ e Start: May 02, 2024 End: May 02, 2024 ELECTRICAL SYSTEMS DESIGNER. Hodakeira Smith , ELECTRICAL SYSTEMS DESIGNER-C Referring Provider Active Start: May 02, 2024 End: May 02, 2024 Dr. Lenka Thomas DO Attending Provider Activ e Start: May 02, 2024 End: May 02, 2024 Team Status: Inactive Member Role Status Dates ELECTRICAL SYSTEMS DESIGNER. Hoda Valdezerer , ELECTRICAL SYSTEMS DESIGNER-C Primary Care Provider Activ e Start: May 16, 2024 End: May 16, 2024 Dr. Maged Mckinney MD Attending Provider Activ e Start: May 16, 2024 End: May 16, 2024 Dr. Maged Mckinney MD Referring Provider Activ e Start: May 16, 2024 End: May 16, 2024 Team Status: Inactive Member Role Status Dates ELECTRICAL SYSTEMS DESIGNER. Hoda Courtneymary jor , ELECTRICAL SYSTEMS DESIGNER-C Primary Care Provider Activ e Start: May 18, 2024 End: May 18, 2024 ELECTRICAL SYSTEMS DESIGNER. Hoda Gleasonr , ELECTRICAL SYSTEMS DESIGNER-C Referring Provider Active Start: May 18, 2024 End: May 18, 2024 Portia Garcia CNM Attending Provider Active S tart: May 18, 2024 End: May 18, 2024 Team Status: Active Member Role Status Dates NP. Hoda Smith ELECTRICAL SYSTEMS DESIGNER-C Primary Care Provider Activ e Start: May 18, 2024 Portia Garcia CNM Attending Provider Active S tart: May 18, 2024 Portia Garcia CNM Referring Provider Active S tart: May 18, 2024 Team Status: Inactive Member Role Status Dates NP. Hoda Smith ELECTRICAL SYSTEMS DESIGNER-C Primary Care Provider Activ e Start: May 18, 2024 End: May 18, 2024 Portia Garcia CNM Attending Provider Active S tart: May 18, 2024 End: May 18, 2024 Portia Garcia CNM Referring Provider Active S tart: May 18, 2024 End: May 18, 2024 Environmental Epidemiologist Relationship Specialty Start Date End Date Hoda Smith CNP [address] [facility] [address] [place] [address] PCP - General Family Medicine 04/11/24 Team Status: Inactive Member Role Status Dates NP. Hoda Smith ELECTRICAL SYSTEMS DESIGNER-C Primary Care Provider Activ e Start: June 23, 2024 End: June 23, 2024 NP. Hoda Smith NP-C Referring Provider Active Start: June 23, 2024 End: June 23, 2024 HARI Crisostomo Attending Provider Active Start: June 23, 2024 End: June 23, 2024 Team Status: Inactive Member Role Status Dates NP. Hoda Smith ELECTRICAL SYSTEMS DESIGNER-C Primary Care Provider Activ e Start: June 23, 2024 End: June 23, 2024 HARI Crisostomo Attending Provider Active Start: June 23, 2024 End: June 23, 2024 HARI Crisostomo Referring Provider Active Start: June 23, 2024 End: June 23, 2024 Team Status: Active Member Role Status Dates Анна Goldstein ELECTRICAL SYSTEMS DESIGNER, ELECTRICAL SYSTEMS DESIGNER-C Family Provider Active Hoda Smith NP-C Primary Care Provider Active Team Status: Inactive Member Role Status Dates Hoda Smith ELECTRICAL SYSTEMS DESIGNER-C Primary Care Provider Active Start: April 20, 2024 End: April 20, 2024 Hoda Ungerer , ELECTRICAL SYSTEMS DESIGNER-C Referring Provider Active Start: April 20, 2024 End: April 20, 2024 Sada Christianson ELECTRICAL SYSTEMS DESIGNER-C Attending Provider Active Start: April 20, 2024 End: April 20, 2024 Team Status: Inactive Member Role Status Dates Hoda Smith , ELECTRICAL SYSTEMS DESIGNER-C Primary Care Provider Active Start: April 20, 2024 End: April 20, 2024 Sada Christianson ELECTRICAL SYSTEMS DESIGNER-C Attending Provider Active Start: April 20, 2024 End: April 20, 2024 Sada Christianson ELECTRICAL SYSTEMS DESIGNER-C Referring Provider Active Start: April 20, 2024 End: April 20, 2024 Team Status: Inactive Member Role Status Dates Hoda Smith , ELECTRICAL SYSTEMS DESIGNER-C Primary Care Provider Active Start: April 21, 2024 End: April 21, 2024 Hoda Smith , ELECTRICAL SYSTEMS DESIGNER-C Referring Provider Active Start: April 21, 2024 End: April 21, 2024 Dr. Rajesh Orellana MD Attending Provider Active Start: April 21, 2024 End: April 21, 2024 Team Status: Inactive Member Role Status Dates Hoda Smith , ELECTRICAL SYSTEMS DESIGNER-C Primary Care Provider Active Start: May 02, 2024 End: May 02, 2024 Hoda Smith , ELECTRICAL SYSTEMS DESIGNER-C Referring Provider Active Start: May 02, 2024 End: May 02, 2024 Dr. Lenka Thomas DO Attending Provider Activ e Start: May 02, 2024 End: May 02, 2024 Team Status: Inactive Member Role Status Dates Hoda Smith , ELECTRICAL SYSTEMS DESIGNER-C Primary Care Provider Active Start: May 16, 2024 End: May 16, 2024 Dr. Maged Mckinney MD Attending Provider Activ e Start: May 16, 2024 End: May 16, 2024 Dr. Maged Mckinney MD Referring Provider Activ e Start: May 16, 2024 End: May 16, 2024 Team Status: Inactive Member Role Status Dates Hoda Smith , ELECTRICAL SYSTEMS DESIGNER-C Primary Care Provider Active Start: May 18, 2024 End: May 18, 2024 Hoda Smith , ELECTRICAL SYSTEMS DESIGNER-C Referring Provider Active Start: May 18, 2024 End: May 18, 2024 Portia Garcia CNM Attending Provider Active S tart: May 18, 2024 End: May 18, 2024 Team Status: Inactive Member Role Status Dates Hoda Smith , ELECTRICAL SYSTEMS DESIGNER-C Primary Care Provider Active Start: May 18, 2024 End: May 18, 2024 Portia Garcia CNM Attending Provider Active S tart: May 18, 2024 End: May 18, 2024 Portia Garcia CNM Referring Provider Active S tart: May 18, 2024 End: May 18, 2024 Team Status: Inactive Member Role Status Dates Hoda Smith , ELECTRICAL SYSTEMS DESIGNER-C Primary Care Provider Active Start: June 23, 2024 End: June 23, 2024 Hoda Smith , ELECTRICAL SYSTEMS DESIGNER-C Referring Provider Active Start: June 23, 2024 End: June 23, 2024 Sada Christianson ELECTRICAL SYSTEMS DESIGNER-C Attending Provider Active Start: June 23, 2024 End: June 23, 2024 Team Status: Inactive Member Role Status Dates Hoda Smith , ELECTRICAL SYSTEMS DESIGNER-C Primary Care Provider Active Start: June 23, 2024 End: June 23, 2024 Sada Christianson ELECTRICAL SYSTEMS DESIGNER-C Attending Provider Active Start: June 23, 2024 End: June 23, 2024 Sada Christianson ELECTRICAL SYSTEMS DESIGNER-C Referring Provider Active Start: June 23, 2024 End: June 23, 2024 Team Status: Inactive Member Role Status Dates Hoda Ungerer , ELECTRICAL SYSTEMS DESIGNER-C Primary Care Provider Active Start: June 29, 2024 End: June 29, 2024 Hoda Smith , ELECTRICAL SYSTEMS DESIGNER-C Referring Provider Active Start: June 29, 2024 End: June 29, 2024 Tonia Iverson NP, ELECTRICAL SYSTEMS DESIGNER-C Attending Provider Active Start: June 29, 2024 End: June 29, 2024 Team Status: Inactive Member Role Status Dates Hoda Smith , ELECTRICAL SYSTEMS DESIGNER-C Primary Care Provider Active Start: July 25, 2024 End: July 25, 2024 Hoda Smith , ELECTRICAL SYSTEMS DESIGNER-C Referring Provider Active Start: July 25, 2024 End: July 25, 2024 Sada Christianson ELECTRICAL SYSTEMS DESIGNER-C Attending Provider Active Start: July 25, 2024 End: July 25, 2024 Team Status: Inactive Member Role Status Dates Hodaosiel Gleasonr , ELECTRICAL SYSTEMS DESIGNER-C Primary Care Provider Active Start: July 25, 2024 End: July 25, 2024 URIAH CrisostomoC Attending Provider Active Start: July 25, 2024 End: July 25, 2024 Environmental Epidemiologist Relationship Specialty Start Date End Date Hoda Smith CNP [address] [facility] [address] [place] [address] PCP - General Family Medicine 04/11/24 Team Status: Inactive Member Role Status Dates Hoda Smith ELECTRICAL SYSTEMS DESIGNER-C Primary Care Provider Active Start: July 28, 2024 End: July 28, 2024 Hoda Smith ELECTRICAL SYSTEMS DESIGNER-C Referring Provider Active Start: July 28, 2024 End: July 28, 2024 JULIA Navarro Attending Provider Active Sta rt: July 28, 2024 End: July 28, 2024 Team Status: Inactive Member Role Status Dates Hoda Smith ELECTRICAL SYSTEMS DESIGNER-C Primary Care Provider Active Start: August 08, 2024 End: August 08, 2024 Hoda Smith ELECTRICAL SYSTEMS DESIGNER-C Referring Provider Active Start: August 08, 2024 End: August 08, 2024 Sada Christianson NP-C Attending Provider Active Start: August 08, 2024 End: August 08, 2024 Team Status: Inactive Member Role Status Dates Hoda Smith ELECTRICAL SYSTEMS DESIGNER-C Primary Care Provider Active Start: August 08, 2024 End: August 08, 2024 Sada Christianson NP-C Attending Provider Active Start: August 08, 2024 End: August 08, 2024 Team Status: Active Member Role Status Dates Collette DUMONT PA-C Primary Care Provider Active Team Status: Inactive Member Role Status Dates Hoda Smith ELECTRICAL SYSTEMS DESIGNER-C Referring Provider Active Start: August 16, 2024 End: August 16, 2024 JULIA Alexander Attending Provider Active Start: August 16, 2024 End: August 16, 2024 Collette DUMONT PA-C Primary Care Provider Active Start: August 16, 2024 End: August 16, 2024 Team Status: Inactive Member Role Status Dates Collette DUMONT PA-C Primary Care Provider Active Start: August 16, 2024 End: August 16, 2024 JULIA Alexander Attending Provider Active Start: August 16, 2024 End: August 16, 2024 JULIA Alexander Referring Provider Active Start: August 16, 2024 End: August 16, 2024 HARI Presley Other Provider Active Start : August 16, 2024 End: August 16, 2024 Environmental Epidemiologist Relationship Specialty Start Date End Date Hoda Smith CNP [address] [place] [address] PCP - General Family Medicine 04/11/24 Environmental Epidemiologist Relationship Specialty Start Date End Date Hoda Smith CNP [address] [place] [address] PCP - General Family Medicine 04/11/24 Team Status: Inactive Member Role Status Dates Collette Amin PA, PA-C Primary Care Provider Active Start: September 12, 2024 End: September 12, 2024 Collette Amin PA, PA-C Referring Provider Active Start: September 12, 2024 End: September 12, 2024 HARI Crisostomo Attending Provider Active Start: September 12, 2024 End: September 12, 2024 Team Status: Active Member Role Status Dates Collette Amin PA, PA-C Primary Care Provider Active Start: September 12, 2024 HARI Crisostomo Attending Provider Active Start: September 12, 2024 Team Status: Inactive Member Role Status Dates Collette Amin PA, PA-C Primary Care Provider Active Start: September 16, 2024 End: September 16, 2024 Collette Amin PA, PA-C Referring Provider Active Start: September 16, 2024 End: September 16, 2024 JULIA Alexander Attending Provider Active Start: September 16, 2024 End: September 16, 2024 Team Status: Active Member Role/Relationship Status Dates Collette DUMONT, PA-C Primary Care Provider Active Team Status: Inactive Member Role/Relationship Status Dates Hoda Ungerer , ELECTRICAL SYSTEMS DESIGNER-C Primary Care Provider Active Start: June 23, 2024 End: June 23, 2024 Hoda Smith , ELECTRICAL SYSTEMS DESIGNER-C Referring Provider Active Start: June 23, 2024 End: June 23, 2024 Sada Christianson ELECTRICAL SYSTEMS DESIGNER-C Attending Provider Active Start: June 23, 2024 End: June 23, 2024 Team Status: Inactive Member Role/Relationship Status Dates Hoda Smith , ELECTRICAL SYSTEMS DESIGNER-C Primary Care Provider Active Start: June 23, 2024 End: June 23, 2024 Sada Christianson ELECTRICAL SYSTEMS DESIGNER-C Attending Provider Active Start: June 23, 2024 End: June 23, 2024 Sada Christianson ELECTRICAL SYSTEMS DESIGNER-C Referring Provider Active Start: June 23, 2024 End: June 23, 2024 Team Status: Inactive Member Role/Relationship Status Dates Hoda Ungerer , ELECTRICAL SYSTEMS DESIGNER-C Primary Care Provider Active Start: June 29, 2024 End: June 29, 2024 Hoda Valdezerer , ELECTRICAL SYSTEMS DESIGNER-C Referring Provider Active Start: June 29, 2024 End: June 29, 2024 Tonia Iverson NP, ELECTRICAL SYSTEMS DESIGNER-C Attending Provider Active Start: June 29, 2024 End: June 29, 2024 Team Status: Inactive Member Role/Relationship Status Dates Hoda Ungerer , ELECTRICAL SYSTEMS DESIGNER-C Primary Care Provider Active Start: July 25, 2024 End: July 25, 2024 Hoda Valdezerer , ELECTRICAL SYSTEMS DESIGNER-C Referring Provider Active Start: July 25, 2024 End: July 25, 2024 Sada Christianson ELECTRICAL SYSTEMS DESIGNER-C Attending Provider Active Start: July 25, 2024 End: July 25, 2024 Team Status: Inactive Member Role/Relationship Status Dates Hoda Ungerer , ELECTRICAL SYSTEMS DESIGNER-C Primary Care Provider Active Start: July 25, 2024 End: July 25, 2024 Sada Christianson ELECTRICAL SYSTEMS DESIGNER-C Attending Provider Active Start: July 25, 2024 End: July 25, 2024 Team Status: Inactive Member Role/Relationship Status Dates Hoda Ungerer , ELECTRICAL SYSTEMS DESIGNER-C Primary Care Provider Active Start: July 28, 2024 End: July 28, 2024 Hoda Ungerer , ELECTRICAL SYSTEMS DESIGNER-C Referring Provider Active Start: July 28, 2024 End: July 28, 2024 JULIA Navarro Attending Provider Active Sta rt: July 28, 2024 End: July 28, 2024 Team Status: Inactive Member Role/Relationship Status Dates Hoda Smith ELECTRICAL SYSTEMS DESIGNER-C Primary Care Provider Active Start: August 08, 2024 End: August 08, 2024 Hoda Smith ELECTRICAL SYSTEMS DESIGNER-C Referring Provider Active Start: August 08, 2024 End: August 08, 2024 Sada Christianson ELECTRICAL SYSTEMS DESIGNER-C Attending Provider Active Start: August 08, 2024 End: August 08, 2024 Team Status: Inactive Member Role/Relationship Status Dates Hoda Smith ELECTRICAL SYSTEMS DESIGNER-C Primary Care Provider Active Start: August 08, 2024 End: August 08, 2024 Sada Christianson ELECTRICAL SYSTEMS DESIGNER-C Attending Provider Active Start: August 08, 2024 End: August 08, 2024 Team Status: Inactive Member Role/Relationship Status Dates Hoda Smith ELECTRICAL SYSTEMS DESIGNER-C Referring Provider Active Start: August 16, 2024 End: August 16, 2024 Candida Loco PA Attending Provider Active Start: August 16, 2024 End: August 16, 2024 Collette Amin PA, PA-C Primary Care Provider Active Start: August 16, 2024 End: August 16, 2024 Team Status: Inactive Member Role/Relationship Status Dates Collette Amin PA, PA-C Primary Care Provider Active Start: August 16, 2024 End: August 16, 2024 JULIA Alexander Attending Provider Active Start: August 16, 2024 End: August 16, 2024 Candida Loco PA Referring Provider Active Start: August 16, 2024 End: August 16, 2024 Soo Amin NP-C Other Provider Active Start : August 16, 2024 End: August 16, 2024 Team Status: Inactive Member Role/Relationship Status Dates Collette Amin PA, PA-C Primary Care Provider Active Start: September 12, 2024 End: September 12, 2024 Collette Amin PA, PA-C Referring Provider Active Start: September 12, 2024 End: September 12, 2024 Sada Christianson ELECTRICAL SYSTEMS DESIGNER-C Attending Provider Active Start: September 12, 2024 End: September 12, 2024 Team Status: Inactive Member Role/Relationship Status Dates Collette Amin PA, PA-C Primary Care Provider Active Start: September 12, 2024 End: September 12, 2024 HARI Crisostomo Attending Provider Active Start: September 12, 2024 End: September 12, 2024 Team Status: Inactive Member Role/Relationship Status Dates Collette Amin PA, PA-C Primary Care Provider Active Start: September 16, 2024 End: September 16, 2024 Collette Amin PA, PA-C Referring Provider Active Start: September 16, 2024 End: September 16, 2024 JULIA Alexander Attending Provider Active Start: September 16, 2024 End: September 16, 2024 Team Status: Inactive Member Role/Relationship Status Dates Collette Amin PA, PA-C Primary Care Provider Active Start: October 03, 2024 End: October 03, 2024 Collette Amin PA, PA-C Referring Provider Active Start: October 03, 2024 End: October 03, 2024 Dr. Natasha Correia MD Attending Provider Active Start: October 03, 2024 End: October 03, 2024 Team Status: Active Member Role/Relationship Status Dates Collette Amin PA, PA-C Primary Care Provider Active Start: October 03, 2024 Dr. Natasha Correia MD Attending Provider Active Start: October 03, 2024 Dr. Natasha Correia MD Referring Provider Active Start: October 03, 2024 FOR RECORDS PERTAINING TO PATIENTS WHO ARE [...] BE BASED ON THE PRIMARY CLINICAL RECORDS. [facility] [employer] provides no warranty or guarantee of the accuracy or completeness of information in this document.
[2024-10-05 04:07] LABS: PROLACTIN 10.0 ng/mL (4.8-33.4)
== END | disposition home or self-care (01) ==
PROVIDERS: PCP Family Medicine; Referring Provider Obstetrics & Gynecology; Visit Provider Obstetrics & Gynecology
DX: R30.0 Dysuria (principal); N64.52 Nipple discharge; N89.8 Other specified noninflammatory disorders of vagina
CPT/HCPCS: 87186; 36415; 84146; 84443; 87070; 87077; 87086; 87088; 87205

== ENCOUNTER → 2024-10-06 | Outpatient (CLI) | payer MEDICAID, SELFPAY ==
--- NOTE | 2024-10-06 14:44 | RAD_ITS ---
EXAM: XR Abdomen, 1 View CLINICAL INDICATION: CONSTIPATOTION TECHNIQUE: Frontal supine view of the abdomen/pelvis. COMPARISON: No relevant prior studies available. FINDINGS: GASTROINTESTINAL TRACT: Fecal retention in the colon consistent with constipation. No dilation. BONES/JOINTS: Unremarkable. No acute fracture. RAD/Abdomen Single View IMPRESSION: Fecal retention in the colon consistent with constipation. [facility]
== END | disposition home or self-care (01) ==
LOC: RAD 14:44
PROVIDERS: PCP Nurse Practitioner Family; Referring Provider Student in an Organized Health Care Education/Training Program; Visit Provider Student in an Organized Health Care Education/Training Program
DX: K58.1 Irritable bowel syndrome with constipation (principal)
CPT/HCPCS: 74018

== ENCOUNTER → 2024-10-12 | Outpatient (CLI) | payer MEDICAID, SELFPAY ==
--- NOTE | 2024-10-12 08:20 | RAD_ITS ---
PROCEDURE: ABDOMEN SINGLE VIEW 10/12/2024 REASON FOR EXAM: SITZ MARKER TESTING TECHNIQUE: ABDOMEN SINGLE VIEW COMPARISON: 10/06/2024 FINDINGS: Interval ingestion of multiple Sitz markers. These are in the distal transverse colon through to the rectosigmoid junction. There is large stool. Nonobstructed small bowel. No obvious free air. Clear lung bases. Status post cholecystectomy. No concerning calcifications. RAD/Abdomen Single View IMPRESSION: Multiple Sitz markers are noted in the distal half of the large bowel. Large s tool consistent with constipation. Reading Location: [place] [id number]
== END | disposition home or self-care (01) ==
LOC: RAD 08:15
PROVIDERS: PCP Nurse Practitioner Family; Referring Provider Student in an Organized Health Care Education/Training Program; Visit Provider Student in an Organized Health Care Education/Training Program
DX: K58.1 Irritable bowel syndrome with constipation (principal)
CPT/HCPCS: 74018

== ENCOUNTER → 2024-10-18 | Outpatient (CLI) | payer MEDICAID, SELFPAY | END | disposition home or self-care (01) | LOC: LABSPEC 09:38 | PROVIDERS: PCP Nurse Practitioner Family; Visit Provider Nurse Practitioner Family | DX: R35.0 Frequency of micturition (principal) | CPT/HCPCS: 87086; 87088 ==

== ENCOUNTER → 2024-10-25 | Outpatient (CLI) | payer MEDICAID, SELFPAY ==
[2024-10-25 12:34] LABS: Color, Urine Yellow (Yellow); Glucose, Dipstick Normal (Normal); Ketone-Dipstick Negative (Negative); Leukocyte Esterase-Dipstick Negative /ul (Negative); Nitrite-Dipstick Negative (Negative); Occult Blood-Urine Negative /ul (Negative); Protein-Dipstick 15 mg/dl (Negative); Specific Gravity, Urine 1.010 (1.002-1.030); Urine Bilirubin Dipstick Negative (Negative)
== END | disposition home or self-care (01) ==
LOC: VSLAB 10:02
PROVIDERS: PCP Nurse Practitioner Family
DX: R35.0 Frequency of micturition (principal)
CPT/HCPCS: 81002; 87086; 87088

== ENCOUNTER → 2024-11-09 | Outpatient (CLI) | payer MEDICAID, SELFPAY | END | disposition home or self-care (01) | LOC: LABSPEC 11:48 | PROVIDERS: PCP Nurse Practitioner Family; Visit Provider Nurse Practitioner Women's Health | DX: N89.8 Other specified noninflammatory disorders of vagina (principal) | CPT/HCPCS: 87070; 87205 ==

== ENCOUNTER → 2024-11-17 | Outpatient (CLI) | payer MEDICAID, SELFPAY ==
[2024-11-17 12:29] LABS: Mucous, Urine 0 SEEN /hpf (<or=2+)
[2024-11-17 13:11] LABS: Color, Urine Yellow (Yellow); Glucose, Dipstick Normal (Normal); Ketone-Dipstick Negative (Negative); Leukocyte Esterase-Dipstick Negative /ul (Negative); Nitrite-Dipstick Negative (Negative); Occult Blood-Urine 25 /ul (Negative); Protein-Dipstick Negative (Negative); Specific Gravity, Urine 1.010 (1.002-1.030); Urine Bilirubin Dipstick Negative (Negative)
[2024-11-17 13:19] LABS: Red Blood Cells-Urine 0-5 SEEN /hpf (0-5); Squamous Epithelial Cells - UA 0-5 SEEN /hpf (5-10)
[2024-11-17 14:20] LABS: Creatinine, Urine (random) 62.00 mg/dL (28.00-217.00); Microalbumin,Random Urine < 12.0 mg/L (<20 mg/L)
== END | disposition home or self-care (01) ==
PROVIDERS: PCP Nurse Practitioner Family; Referring Provider Nurse Practitioner Family; Visit Provider Nurse Practitioner Family
DX: R30.0 Dysuria (principal); F41.9 Anxiety disorder, unspecified
CPT/HCPCS: 81001; 82043; 82570; 87086

== ENCOUNTER 2024-11-22 12:42 | Day surgery (SDC) | payer MEDICAID, SELFPAY ==
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
[2024-11-22] VITALS (7 sets, daily range): BP systolic 90–118; BP diastolic 51–81; PULSE 100–111; RESP 16; TEMP 36.4–37; O2SAT 98–100; BMI 28.5
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
[2024-11-22] MEDS: Lactated Ringers 1,000 ML 15 ML IV (13:13)
[2024-11-22 13:15] LABS: Internal QC Validated? YES +Cl - CLEAR BKGD; Pregnancy, Urine Negative Negative
[2024-11-22 13:16] LABS: Record Kit Lot#,Urine Preg 0000962302
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
--- NOTE | 2024-11-22 13:45 | EGD_PTH ---
PATIENT: NAPOLEON VALLES LOC: EN U#:[id number] AGE/SX: 29/F ROOM: RE11/22/[address]: Dr. Rakesh Schreiber DO : 1995 BED: DIS: 11/22/2024 SPEC #: [id number] RECD: 11/22/24 18:02 STATUS: JENISE RECleo #: [id number] LEIGHA: 11/22/24 13:[address]: Rakesh Schreiber DEPT: SURGICAL PATHOLOGY RECD BY: Flaco Robles ENTERED: 11/23/24 09:46 SP TYPE: EGD BIOPSY OTHR DR: Angeli Martin, SALES OFFICE ASSISTANT-C Tissues: A - Gastric mucous membrane B - Gastric mucous membrane C - Ileum, NOS D - COLON BIOPSY Procedures: Surgery Specimen Level IV HEADER OPERATION: Colonoscopy, EGD, biopsy PRE-OP DIAGNOSIS: Irritable bowel syndrome with constipation TISSUE SUBMITTED: A- Gastric body biopsy, B- Gastric cardia polyp biopsy, C- Terminal ileum biopsy, D- Random colonic biopsy MICROSCOPIC DIAGNOSIS A. Gastric body, biopsy: - Oxyntic mucosa with mild chronic inflammation. - Negative for Helicobacter-like organisms (H&E). B. Gastric cardia, polyp, biopsy: - Fundic gland polyp. C. Terminal ileum, biopsy: - No specific pathologic change. D. Colon, random, biopsy: - No specific pathologic change. - The histologic features of microscopic colitis are not demonstrated. MICROSCOPIC DESCRIPTION Slides are reviewed. GROSS DESCRIPTION A. Received in fixative is one container labeled with the patient's name and designated Gastric body biopsy. The specimen consists of two irregular fragments of light zambrano soft tissue, each measuring 0.5 cm. The specimen is totally submitted in one cassette. B. Received in fixative is one container labeled with the patient's name and designated Gastric cardia polyp biopsy. The specimen consists of one irregular fragment of light zambrano soft tissue that measures 0.3 cm. The specimen is totally submitted in one cassette. C. Received in fixative is one container labeled with the patient's name and designated Terminal ileum biopsy. The specimen consists of five irregular fragments of light zambrano soft tissue that measure 0.1 to 0.3 cm. The specimen is totally submitted in one cassette. D. Received in fixative is one container labeled with the patient's name and designated Random colonic biopsy. The specimen consists of multiple irregular fragments of light zambrano soft tissue that in aggregate measure 1.7 x 0.5 x 0.1 cm. The specimen is totally submitted in one cassette. PR 11/23/2024 CPT:01053v5
--- NOTE | 2024-11-22 14:33 | PCM.POST.ANE ---
Anesthesia: Postop Eval I Current Vital Signs Temperature: 97.8 F Pulse Rate: 104 Blood Pressure: 90/51 Respiratory Rate: 16 Pulse Ox: 100 Oxygen Delivery Method: Room Air Assessment Airway patent: Yes Spontaneous unlabored respirations: Yes Mental status: Awake and Calm nausea: No Vomiting: No Anesthesia Complication: No Fluid Hydration Crystalloid volume administer (ml): 600 Total IV fluid infused: 600 Progress Note Anesthesia document: Postop Eval 1 completed: Yes
--- NOTE | 2024-11-22 14:37 | OP.EGD_ITS ---
Patient Name: Samara Romero Procedure Date: 11/22/2024 1:39 PM Date of : 1995 Age: 29 Procedure: Upper GI endoscopy Indications: Epigastric abdominal pain, Follow-up of peptic ulcer Providers: Rakesh Schreiber DO Medicines: Monitored Anesthesia Care Patient Profile: This is a 29 year old female. Refer to note in patient chart for documentation of history and physical. Patient has symptoms of acute abdominal cramping, acute abdominal distention and chronic epigastric abdominal pain. Complications: No immediate complications. Procedure: Pre-Anesthesia Assessment: - Prior to the procedure, a History and Physical was performed, and patient medications and allergies were reviewed. The patient is competent. The risks and benefits of the procedure and the sedation options and risks were discussed with the patient. All questions were answered and informed consent was obtained. Patient identification and proposed procedure were verified by the physician in the pre-procedure area. Mental Status Examination: alert and oriented. Airway Examination: normal oropharyngeal airway and neck mobility. Respiratory Examination: clear to auscultation. CV Examination: normal. Prophylactic Antibiotics: The patient does not require prophylactic antibiotics. Prior Anticoagulants: The patient has taken no anticoagulant or antiplatelet agents except for NSAID medication. ASA Grade Assessment: II - A patient with mild systemic disease. After reviewing the risks and benefits, the patient was deemed in satisfactory condition to undergo the procedure. The anesthesia plan was to use monitored anesthesia care (MAC). Immediately prior to administration of medications, the patient was re-assessed for adequacy to receive sedatives. The heart rate, respiratory rate, oxygen saturations, blood pressure, adequacy of pulmonary ventilation, and response to care were monitored throughout the procedure. The physical status of the patient was re-assessed after the procedure. After obtaining informed consent, the endoscope was passed under direct vision. Throughout the procedure, the patient's blood pressure, pulse, and oxygen saturations were monitored continuously. The pediatric colonoscope was introduced through the mouth, and advanced to the third part of the duodenum. Small bowel enteroscopy was deemed necessary. The upper GI endoscopy was accomplished without difficulty. The patient tolerated the procedure well. Scope In: 2:00:10 PM Scope Out: 2:06:09 PM Total Procedure Duration Time 0 hours 5 minutes 59 seconds Findings: The examined esophagus was normal. Patchy mild inflammation characterized by erythema was found in the gastric body. Biopsies were taken with a cold forceps for histology. Biopsies were taken with a cold forceps for Helicobacter pylori testing. Verification of patient identification for the specimen was done. Estimated blood loss was minimal. The examined duodenum was normal. Impression: - Normal esophagus. - Chronic gastritis. Biopsied. - Normal examined duodenum. Recommendation: - Discharge patient to home. - Resume previous diet. - Continue present medications. - Await pathology results. Procedure Code(s): --- Professional --- 58668, Small intestinal endoscopy, enteroscopy beyond second portion of duodenum, not including ileum; with biopsy, single or multiple CPT copyright 2021 [employer]. All rights reserved. The codes documented in this report are preliminary and upon dye mixer review may be revised to meet current compliance requirements. Rakesh Schreiber DO 11/22/2024 2:37:20 PM This report has been signed electronically. Number of Addenda: 0 Note Initiated On: 11/22/2024 1:39 PM
--- NOTE | 2024-11-22 14:38 | OP.PROVAT_ITS ---
11/22/2024 Reji Henry Re : Upper GI endoscopy procedure for Samara Romero Dear Veronica This procedure was performed on Friday, November 22, 2024. My impressions and recommendations are as follows: Impressions : - Normal esophagus. - Chronic gastritis. Biopsied. - Normal examined duodenum. Recommendations : - Discharge patient to home. - Resume previous diet. - Continue present medications. - Await pathology results. My findings are described in the full procedure note, which is enclosed. If I can be of further assistance, please feel free to contact me at . Sincerely, Rakesh Schreiber, 11/22/2024 2:37:20 PM This report has been signed electronically.
--- NOTE | 2024-11-22 14:42 | OP.COLON_ITS ---
Patient Name: Samara Romero Procedure Date: 11/22/2024 2:06 PM Date of : 1995 Age: 29 Procedure: Colonoscopy Indications: Clinically significant diarrhea of unexplained origin Providers: Rakesh Schreiber DO Medicines: Monitored Anesthesia Care Patient Profile: This is a 29 year old female. Refer to note in patient chart for documentation of history and physical. Patient has symptoms of acute abdominal cramping, acute abdominal distention and chronic epigastric abdominal pain. Last Colonoscopy: none. The patient's first colonoscopy is today. Complications: No immediate complications. Procedure: Pre-Anesthesia Assessment: - Prior to the procedure, a History and Physical was performed, and patient medications and allergies were reviewed. The patient is competent. The risks and benefits of the procedure and the sedation options and risks were discussed with the patient. All questions were answered and informed consent was obtained. Patient identification and proposed procedure were verified by the physician in the pre-procedure area. Mental Status Examination: alert and oriented. Airway Examination: normal oropharyngeal airway and neck mobility. Respiratory Examination: clear to auscultation. CV Examination: normal. Prophylactic Antibiotics: The patient does not require prophylactic antibiotics. Prior Anticoagulants: The patient has taken no anticoagulant or antiplatelet agents except for NSAID medication. ASA Grade Assessment: II - A patient with mild systemic disease. After reviewing the risks and benefits, the patient was deemed in satisfactory condition to undergo the procedure. The anesthesia plan was to use monitored anesthesia care (MAC). Immediately prior to administration of medications, the patient was re-assessed for adequacy to receive sedatives. The heart rate, respiratory rate, oxygen saturations, blood pressure, adequacy of pulmonary ventilation, and response to care were monitored throughout the procedure. The physical status of the patient was re-assessed after the procedure. After I obtained informed consent, the scope was passed under direct vision. Throughout the procedure, the patient's blood pressure, pulse, and oxygen saturations were monitored continuously. The pediatric colonoscope was introduced through the anus and advanced to the terminal ileum. The colonoscopy was performed without difficulty. The patient tolerated the procedure well. The quality of the bowel preparation was adequate. The terminal ileum, ileocecal valve, appendiceal orifice, and rectum were photographed. Scope In: 2:07:47 PM Scope Withdrawal Time 0 hours 8 minutes 25 seconds Scope Out: 2:20:36 PM Total Procedure Duration Time 0 hours 12 minutes 49 seconds Findings: The perianal and digital rectal examinations were normal. An area of mildly congested mucosa was found in the sigmoid colon, in the transverse colon and in the ascending colon. Biopsies were taken with a cold forceps for histology. Verification of patient identification for the specimen was done. Estimated blood loss was minimal. A patchy area of the terminal ileum was congested. Biopsies were taken with a cold forceps for histology. Verification of patient identification for the specimen was done. Estimated blood loss was minimal. Impression: - Congested mucosa in the sigmoid colon, in the transverse colon and in the ascending colon. Biopsied. - Congested mucosa in the terminal ileum. Biopsied. Recommendation: - Discharge patient to home. - Resume previous diet. - Continue present medications. - Await pathology results. - Repeat colonoscopy [day] [reason]. - Repeat colonoscopy is recommended [Repeat reason]. The colonoscopy date will be determined after pathology results from today's exam become available for review. Procedure Code(s): --- Professional --- 99436, Colonoscopy, flexible; with biopsy, single or multiple CPT copyright 2021 [employer]. All rights reserved. The codes documented in this report are preliminary and upon physiotherapy aide review may be revised to meet current compliance requirements. Rakesh Schreiber DO 11/22/2024 2:41:33 PM This report has been signed electronically. Number of Addenda: 0 Note Initiated On: 11/22/2024 2:06 PM
--- NOTE | 2024-11-22 14:42 | OP.PROVAT_ITS ---
11/22/2024 Reji Henry Re : Colonoscopy procedure for Samara Romero Dear Veronica This procedure was performed on Friday, November 22, 2024. My impressions and recommendations are as follows: Impressions : - Congested mucosa in the sigmoid colon, in the transverse colon and in the ascending colon. Biopsied. - Congested mucosa in the terminal ileum. Biopsied. Recommendations : - Discharge patient to home. - Resume previous diet. - Continue present medications. - Await pathology results. - Repeat colonoscopy [day] [reason]. - Repeat colonoscopy is recommended [Repeat reason]. The colonoscopy date will be determined after pathology results from today's exam become available for review. My findings are described in the full procedure note, which is enclosed. If I can be of further assistance, please feel free to contact me at . Sincerely, Rakesh Schreiber, 11/22/2024 2:41:33 PM This report has been signed electronically.
--- NOTE | 2024-11-22 16:04 | PCM.POSTANE2 ---
Anesthesia Postop Eval I Sum Postop Eval Completion status Anesthesia document: Postop Eval 1 completed: Yes Anesthesia Postop Eval I Summary Anesthesia Postop Eval I Summary: Anesthesia Postop Eval I: Assessment Summary Airway patent Yes 11/22/24 14:34 [email or web address] Spontaneous unlabored Yes 11/22/24 14:34 [email or web address] respirations Mental status Awake,Calm 11/22/24 14:34 [email or web address] nausea No 11/22/24 14:34 [email or web address] Vomiting No 11/22/24 14:34 [email or web address] Anesthesia Postop Eval I: Fluid Summary Crystalloid volume administer 600 11/22/24 14:34 [email or web address] (ml) Colloids volume administered ( ml) Blood Product volume administered (ml) Total IV fluid infused 600 11/22/24 14:34 [email or web address] Anesthesia Postop Eval I: Summary Notes Anesthesia Complication No 11/22/24 14:34 [email or web address] Anesthesia Complication Comment: Post-operative progress note Anesthesia: Postop Eval II Evaluation Mental status: Awake and Calm Pain Level: 0 nausea: No Vomiting: No Complications Anesthesia Complication: No
== END 2024-11-22 15:13 | disposition home or self-care (01) ==
LOC: EN 12:43 → AC 12:45
PROVIDERS: Anesthesiology; PCP Nurse Practitioner Family; Referring Provider Nurse Practitioner Family; Visit Provider Internal Medicine Gastroenterology
PROC: 0DJD8ZZ Inspection of Lower Intestinal Tract, Via Natural or Artificial Opening Endoscopic (ICD-10-PCS; CPT 45378; principal; 2024-11-22 13:40)
DX: K31.7 Polyp of stomach and duodenum (principal); K29.50 Unspecified chronic gastritis without bleeding; K58.1 Irritable bowel syndrome with constipation; K63.89 Other specified diseases of intestine; K21.9 Gastro-esophageal reflux disease without esophagitis; E03.9 Hypothyroidism, unspecified; F32.A Depression, unspecified; F41.9 Anxiety disorder, unspecified; Z79.890 Hormone replacement therapy; Z79.899 Other long term (current) drug therapy; Z87.891 Personal history of nicotine dependence
CPT/HCPCS: 45380; 43239; 81025; 88305; J2405

== ENCOUNTER → 2024-12-05 | Outpatient (CLI) | payer MEDICAID, SELFPAY | END | disposition home or self-care (01) | PROVIDERS: PCP Nurse Practitioner Family; Referring Provider Nurse Practitioner Family; Visit Provider Nurse Practitioner Family | DX: Z00.00 Encounter for general adult medical examination without abnormal findings (principal); N89.8 Other specified noninflammatory disorders of vagina; Z12.4 Encounter for screening for malignant neoplasm of cervix | CPT/HCPCS: 87070; 87205; 88175; G0145 ==

== ENCOUNTER → 2024-12-06 | Outpatient (CLI) | payer MEDICAID, SELFPAY ==
--- NOTE | 2024-12-06 10:17 | NM_ITS ---
PROCEDURE: GASTRIC EMPTYING STUDY 12/06/2024 REASON FOR EXAM: GASTROPARESIS COMPARISON: None TECHNIQUE: Procedure Code: NMGES Modality: NM Procedure: GASTRIC EMPTYING STUDY The patient ingested a standard meal of oatmeal, sulfur colloid and water. There was no vomiting postprandially. Anterior and posterior planar images of the upper abdomen were obtained for 1 minute immediately following the meal at 1h, 2h and 4h if more than 10% of the activity persisted within the stomach. Regions of interest were drawn, and a geometric mean was used to calculate a [id number]. RADIOPHARMACEUTICAL: Sulfur colloid DOSE 1.1mCi FINDINGS: Percent activity remaining in stomach: 1 hour 85 % (normal 37-90%) 2 hours: % (normal 30-60%) 4 hours: % (normal 0-10%) NM/Gastric Emptying Study IMPRESSION: Delayed gastric emptying. Reading Location: [place] [id number]
== END | disposition home or self-care (01) ==
LOC: NM 10:13
PROVIDERS: PCP Nurse Practitioner Family; Referring Provider Nurse Practitioner Family; Visit Provider Nurse Practitioner Family
DX: R07.9 Chest pain, unspecified (principal)
CPT/HCPCS: 78264; 93225; 93226; A9541

== ENCOUNTER 2024-12-20 08:54 | Outpatient (CLI) | payer MEDICAID, SELFPAY ==
[2024-12-20 09:05] LABS: Mucous, Urine 0 SEEN /hpf (<or=2+); Red Blood Cells-Urine 0 SEEN /hpf (0-5)
[2024-12-20 10:34] LABS: Hematocrit 42.2 % (37-47); Hemoglobin 14.1 g/dL (12.0-15.0); Immature Granulocytes Count 0.030 X10^3/uL (0.0-0.0); Mean Corp Hgb Conc 33.4 g/dL (32-36); Mean Corpuscular Volume 87.0 fL (81-99); Mean Platelet Vol. 9.8 fl (6.2-12.0); NRBC Flagged by Analyzer 0 % (0-5); Platelet Count 419 K/mm3 (150-450); RBC Distribution Width CV 12.2 % (11.6-14.6); RBC Distribution Width SD 39.2 fl (35.1-43.9); Red Blood Count 4.85 M/mm3 (4.2-5.4); White Blood Count 6.5 K/mm3 (4.4-11.0)
[2024-12-20 10:39] LABS: Color, Urine Yellow (Yellow); Glucose, Dipstick Normal (Normal); Ketone-Dipstick Negative (Negative); Leukocyte Esterase-Dipstick Negative /ul (Negative); Nitrite-Dipstick Negative (Negative); Occult Blood-Urine Negative /ul (Negative); Protein-Dipstick 15 mg/dl (Negative); Specific Gravity, Urine 1.005 (1.002-1.030); Urine Bilirubin Dipstick Negative (Negative)
[2024-12-20 10:50] LABS: Squamous Epithelial Cells - UA 0-5 SEEN /hpf (5-10)
[2024-12-20 15:24] LABS: AST(SGOT) 19 U/L (<=31); Alanine Aminotransfer ALT/SGPT 19 U/L (<=34); Albumin, Serum 4.6 g/dL (3.5-5.0); Alkaline Phosphatase 146 U/L (35-104); Anion Gap 13 (5-15); BUN 8 mg/dL (4-19); BUN/Creat Ratio 11.7 RATIO (10-20); Calcium,Total 9.5 mg/dL (7.6-11.0); Carbon Dioxide 23.0 mmol/L (21.0-32.0); Chloride 104 mmol/L (98-108); Globulin 2.9 g/dL (2.2-4.2); Glucose 88 mg/dL (70-99); Potassium 4.3 mmol/L (3.3-5.1)
== END 2024-12-20 23:59 | disposition home or self-care (01) ==
LOC: LAB 08:55
PROVIDERS: PCP Nurse Practitioner Family; Referring Provider Nurse Practitioner Family; Visit Provider Nurse Practitioner Family
DX: R35.89 Other polyuria (principal); R00.0 Tachycardia, unspecified
CPT/HCPCS: 36415; 80053; 81001; 83036; 84443; 85025; 87086; 87088

== ENCOUNTER → 2024-12-30 | Outpatient (CLI) | payer MEDICAID, SELFPAY ==
--- NOTE | 2024-12-30 08:47 | NM_ITS ---
PROCEDURE: GASTRIC EMPTYING STUDY - 4 HR 12/30/2024 REASON FOR EXAM: GASTROPARESIS COMPARISON: None. TECHNIQUE: Procedure Code: [id number] Modality: NM Procedure: GASTRIC EMPTYING STUDY - 4 HR The patient ingested a standard meal of eggs sandwich with 2 eggs, 2 slices of bread, 2 pads of butter, and 6 oz of water. There was no vomiting postprandially. Anterior and posterior planar images of the upper abdomen were obtained for 1 minute immediately following the meal at 1h, 2h and 4h if more than 10% of the activity persisted within the stomach. Regions of interest were drawn, and a geometric mean was used to calculate a [id number]. RADIOPHARMACEUTICAL: Oral administration of 1.2 mCi technetium 99 M sulfur colloid within the solid meal. FINDINGS: During the time of imaging, gastroesophageal reflux was not visualized. Linear fit gastric emptying half-time of 189.15 minutes. Percent activity remaining in stomach: 1 hour 93 % (normal 37-90%) 2 hours: 70 % (normal 30-60%) 4 hours: 39 % (normal 0-10%) NM/Gastric Emptying Study - 4 HR IMPRESSION: Delayed/diminished gastric emptying, in the solid phase. Reading Location: [place] [id number]
== END | disposition home or self-care (01) ==
LOC: NM 08:44
PROVIDERS: PCP Nurse Practitioner Family; Referring Provider Student in an Organized Health Care Education/Training Program; Visit Provider Student in an Organized Health Care Education/Training Program
DX: K30 Functional dyspepsia (principal)
CPT/HCPCS: 78264; A9541

== ENCOUNTER 2025-01-03 07:58 | Outpatient (RCR) | payer MEDICAID, SELFPAY | END 2025-01-20 23:59 | LOC: NS 07:58 | PROVIDERS: PCP Nurse Practitioner Family; Referring Provider Student in an Organized Health Care Education/Training Program; Visit Provider Student in an Organized Health Care Education/Training Program | DX: Z71.3 Dietary counseling and surveillance (principal); K30 Functional dyspepsia | CPT/HCPCS: 97802 ==

== ENCOUNTER 2025-01-06 19:11 | Emergency (ER) | payer MEDICAID, SELFPAY ==
[2025-01-06 19:14] VITALS: BP 120/79; PULSE 94; RESP 18; TEMP 36.8; O2SAT 99; BMI 28.3
[2025-01-06 21:05] LABS: Internal QC Validated? YES +Cl - CLEAR BKGD; Pregnancy, Serum, hCG Quali. NEGATIVE Negative; Record Kit Lot#, Serum Preg. 980607
[2025-01-06 21:12] VITALS: BP 112/93; PULSE 88; RESP 18; O2SAT 100
[2025-01-06 21:20] LABS: Mucous, Urine 0 SEEN /hpf (<or=2+)
[2025-01-06 21:41] LABS: Color, Urine Yellow (Yellow); Glucose, Dipstick Normal (Normal); Ketone-Dipstick 15 mg/dl (Negative); Leukocyte Esterase-Dipstick 25 /ul (Negative); Nitrite-Dipstick Negative (Negative); Occult Blood-Urine 250 /ul (Negative); Protein-Dipstick 30 mg/dl (Negative); Specific Gravity, Urine 1.020 (1.002-1.030)
[2025-01-06 21:47] LABS: Urine Bilirubin Dipstick 1 mg/dL (Negative)
--- OUTSIDE RECORDS SUMMARY | 2025-01-06 22:14 | XMS RPT_ITS | CCD ---
Author Organization [facility] ion Partnership [facility] Care Team Providers Care Real Estate Sales Supervisor Name Role Phone АННА GOLDSTEIN Unavailable Unavailable LETITIA FORD Unavailable Unavailable АННА GOLDSTEIN Unavailable Unavailable GIOVANI JOLLEY Unavailable Unavailable Dr. Beryl Mcmillan Primary Care Provider Dr. Beryl Mcmillan Referring Provider Dr. Natasha Correia Attending Provider Linda INTERNATIONAL SALES REPRESENTATIVE, INTERNATIONAL SALES REPRESENTATIVE-C Flori Attending Provider Kishor INTERNATIONAL SALES REPRESENTATIVE, INTERNATIONAL SALES REPRESENTATIVE-C Tonia Attending Provider Dr. Lenka Thomas Attending Provider Dr. Beryl Mcmillan Primary Care Provider Dr. Beryl Mcmillan Referring Provider Kishor INTERNATIONAL SALES REPRESENTATIVE, INTERNATIONAL SALES REPRESENTATIVE-C Tonia Attending Provider Dr. Natasha Correia Attending Provider BERYL MCMILLAN DO Primary Care Physician Dr. Beryl Mcmillan Primary Care Provider [phone] Dr. Beryl Mcmillan Referring Provider Dr. Natasha Correia Attending Provider Kishor INTERNATIONAL SALES REPRESENTATIVE, INTERNATIONAL SALES REPRESENTATIVE-C Tonia Attending Provider Dr. Cliff Feliciano Emergency Provider Dr. Connie Palmer Admit Provider Dr. Connie Palmer Other Provider Dr. Jo Bolanos Attending Provider Unavailable Dr. Jo Bolanos Other Provider Unavailable Beryl Mcmillan DO Primary Care Provider Dy Lenka MANCIA Primary Care Provider Dr. Beryl Mcmillan Primary Care Provider Dr. Beyrl Mcmillan Referring Provider Kishor INTERNATIONAL SALES REPRESENTATIVE, INTERNATIONAL SALES REPRESENTATIVE-C Tonia Attending Provider Dr. Natasha Correia Attending Provider Ungerer, INTERNATIONAL SALES REPRESENTATIVEPrincess Drummond Primary Care Provider Courtneyerer, INTERNATIONAL SALES REPRESENTATIVEPrincess Drummond Referring Provider ANDREW Baron Attending Provider Dr. Lenka Thomas Attending Provider Dr. Beryl Mcmillan Primary Care Provider Dr. Beryl Mcmillan Referring Provider Kishor INTERNATIONAL SALES REPRESENTATIVE, INTERNATIONAL SALES REPRESENTATIVE-C Tonia Attending Provider ANDREW Garcia Attending Provider Dr. Natasha Correia Referring Provider Dr. Natasha Correia Other Provider Dr. Beryl Mcmillan Primary Care Provider Dr. Beryl Mcmillan Referring Provider Kishor INTERNATIONAL SALES REPRESENTATIVE, INTERNATIONAL SALES REPRESENTATIVE-C Tonia Attending Provider Dr. Natasha Correia Attending Provider Courtneyerer, INTERNATIONAL SALES REPRESENTATIVEPrincess Drummond Primary Care Provider Ungerer, NP. Drummond Referring Provider ANDREW Baron Attending Provider Dr. Lenka Thomas Attending Provider ANDREW Garcia Attending Provider Dr. Natasha Correia Referring Provider [phone] Dr. Natasha Correia Other Provider Ungerer, INTERNATIONAL SALES REPRESENTATIVE. Hoda Primary Care Provider Ungerer, INTERNATIONAL SALES REPRESENTATIVE. Hoda Referring Provider Kishor INTERNATIONAL SALES REPRESENTATIVE, INTERNATIONAL SALES REPRESENTATIVE-C Tonia Attending Provider [phone] Dr. Natasha Correia Attending Provider Breyl Mcmillan DO Primary Care Provider Irma Coronel CGC Unavailable Natasha Correia MD Unavailable Ungerer PLUMBER GASFITTER-SKIDDER, Hoda D Primary Care Provide r Unavailable Emerita NARVAEZ, Rekha Unavailable Natan Funes MD Unavailable LENKA RANDOLPH Referring Unavailab MARCUS Kapadia Attending Unavailable UNGERER, HODA D Primary Care Unavailable MISTY SAAVEDRA F Attending Unavailable LENKA RANDOLPH Referring Unavailab le UNGERER, HODA D Primary Care Unavailable MISTY SAAVEDRA Attending Unavailable LENKA RANDOLPH Referring Unavailab le UNGERER, HODA D Primary Care Unavailable MARCUS AMARAL Attending Unavailable NATASHA CORREIA Referring Unavailabl e UNGERER, HODA D Primary Care Unavailable UNGERER, HODA D Primary Care Unavailable NATAN FUNES Attending Unavailable NATAN FUNES Referring Unavailable UNGERER, HODA D Primary Care Unavailable SAAVEDRA MISTY Tommy Attending Unavailable LENKA RANDOLPH Referring Unavailab le UNGERER, HODA D Referring Unavailable UNGERER, HODA D Primary Care Unavailable NATAN FUNES Attending Unavailable SUDEEP HOANG Attending Unavailable NATASHA CORREIA Referring Unavailabl e UNGERER, HODA D Primary Care Unavailable LENKA RANDOLPH Referring Unavailab MARCUS Kapadia Attending Unavailable UNGERER, HODA D Primary Care Unavailable Ungerer SKIDDER, Hoda D Primary Care Provider [phone] Ungerer SKIDDER, Hoda D Primary Care Provider [phone] Ungerer INTERNATIONAL SALES REPRESENTATIVE-C, INTERNATIONAL SALES REPRESENTATIVE. Hoda Primary Care Provider Ungerer INTERNATIONAL SALES REPRESENTATIVE-C, INTERNATIONAL SALES REPRESENTATIVE. Hoda Referring Provider [phone] Portia Garcia CNM Attending Provider [phone] Portia Garcia CNM Referring Provider Esteban NARVAEZ, Dr. Mena Attending Provider Sammy SHERIDAN-Sada Freitas Attending Provider Sammy SHERIDAN-C, Sada Referring Provider Cristino Mcdonald DO, Dr. Og Attending Provider Dr. Maged Mckinney MD Attending Provider Dr. Maged Mckinney MD Referring Provider Ungerer INTERNATIONAL SALES REPRESENTATIVE-C, INTERNATIONAL SALES REPRESENTATIVE. Hoda Primary Care Provider Ungerer INTERNATIONAL SALES REPRESENTATIVE-C, INTERNATIONAL SALES REPRESENTATIVE. Hoda Referring Provider [phone] Portai Garcia CNM Attending Provider [phone] Portia Garcia CNM Referring Provider Dr. Rajesh Orellana MD Attending Provider Sammy SHERIDAN-Fortino, Sada Attending Provider Sammy SHERIDAN-C, Sada Referring Provider Dr. Lenka Thomas DO Attending Provider Dr. Maged Mckinney MD Attending Provider Dr. Maged Mckinney MD Referring Provider Ungerer INTERNATIONAL SALES REPRESENTATIVE-C, INTERNATIONAL SALES REPRESENTATIVE. Hoda Primary Care Provider Ungerer INTERNATIONAL SALES REPRESENTATIVE-C, INTERNATIONAL SALES REPRESENTATIVE. Hoda Referring Provider Jose MORALES, Portia Attending Provider Portia Garcia CNM Referring Provider Ungerer INTERNATIONAL SALES REPRESENTATIVE-C, Hoda Primary Care Provider Ungerer INTERNATIONAL SALES REPRESENTATIVE-C, Hoda Referring Provider Esteban NARVAEZ, Dr. Mena Attending Provider Kishor INTERNATIONAL SALES REPRESENTATIVE-C, Tonia Attending Provider Crow Garcia Attending Provider Candida Liriano Attending Provider Brennan PA-C, Collette Primary Care Provider Ungerer INTERNATIONAL SALES REPRESENTATIVE-C, Hoda Primary Care Provider Ungerer INTERNATIONAL SALES REPRESENTATIVE-C, Hoda Referring Provider Sammy INTERNATIONAL SALES REPRESENTATIVE-C, Sada Attending Provider Sammy INTERNATIONAL SALES REPRESENTATIVE-C, Sada Referring Provider Candida Liriano Referring Provider Larry INTERNATIONAL SALES REPRESENTATIVE-CSoo Other Provider Ungerer INTERNATIONAL SALES REPRESENTATIVE-C, Hoda Primary Care Provider Ungerer INTERNATIONAL SALES REPRESENTATIVE-C, Hoda Referring Provider Brennan PA-C, Collette Referring Provider Ungerer INTERNATIONAL SALES REPRESENTATIVE-C, Hoda Primary Care Provider Ungerer INTERNATIONAL SALES REPRESENTATIVE-C, Hoda Referring Provider [place] NARVAEZ, Dr. Kaur Attending Provider Dr. Natasha Correia MD Referring Provider Veronica INTERNATIONAL SALES REPRESENTATIVE-C, Angeli Primary Care Provider Veronica INTERNATIONAL SALES REPRESENTATIVE-C, Angeli Attending Provider Ungerer INTERNATIONAL SALES REPRESENTATIVE-C, Hoda Primary Care Provider Ungerer INTERNATIONAL SALES REPRESENTATIVE-C, Hoda Referring Provider Keenaman INTERNATIONAL SALES REPRESENTATIVE-C, Sada Attending Provider Beam INTERNATIONAL SALES REPRESENTATIVE-C, Dillon Attending Provider Ungerer INTERNATIONAL SALES REPRESENTATIVE-C, Hoda Primary Care Provider Ungerer INTERNATIONAL SALES REPRESENTATIVE-C, Hoda Referring Provider Tannhof INTERNATIONAL SALES REPRESENTATIVE-C, Angeli Referring Provider [place] INTERNATIONAL SALES REPRESENTATIVE-C, Tonia Attending Provider Ungerer INTERNATIONAL SALES REPRESENTATIVE-C, Hoda Primary Care Provider Ungerer INTERNATIONAL SALES REPRESENTATIVE-C, Hoda Referring Provider [phone] Keenaman INTERNATIONAL SALES REPRESENTATIVE-C, Sada Attending Provider Mango PACrow Attending Provider Candida Liriano Attending Provider Brennan PA-C, Collette Primary Care Provider Candida Liriano Referring Provider Larry INTERNATIONAL SALES REPRESENTATIVE-C, Soo Other Provider Brennan PA-C, Collette Referring Provider [place] NARVAEZ, Dr. Kaur Attending Provider [phone] Dr. Natasha Correia MD Referring Provider [phone] Tannhof INTERNATIONAL SALES REPRESENTATIVE-C, Angeli Primary Care Provider Tannhof INTERNATIONAL SALES REPRESENTATIVE-C, Angeli Attending Provider Beam INTERNATIONAL SALES REPRESENTATIVE-C, Dillon Attending Provider Tannhof INTERNATIONAL SALES REPRESENTATIVE-C, Angeli Referring Provider [phone] years has not been determined. Clinical correlation is essential. Serum or plasma urea nitroge n measurement (mass/volume)Ordered By: Portia Garcia on 07-09-2023 Urea nitrogen [Mass/Vol] 6 mg/dL 10-07 [facility] Thin prep Papanicolaou smear with manual screeningOrdered By: Portia Garcia on 07-09-2023 Protein (U) [Mass/Vol] 9.2 mg/dL 0.0-11.8 [facility] Thin prep Papanicolaou smear with manual screening 3.1 g/dL 3.2-5.0 [facility] Thin prep Papanicolaou smear with manual screening 12 U/L 15-37 [facility] Thin prep Papanicolaou smear with manual screening 4 5-15 [facility] Urine creatinine measurement (mass/volume)Ordered By: Portia Garcia on 07-09-2023 Creatinine (U) [Mass/Vol] 64.30 mg/dL NO RANGE EST. [facility] Urine protein/creatinine mas s ratioOrdered By: Portia Garcia on 07-09-2023 Protein/Creatinine (U) [Mass ratio] 143 mg/g CRE 0-200 [facility] Laboratory - Chemistry and C hemistry - challengeon 07-03-2023 Glucose Ql (U) Negative [facility] Laboratory - Urinalysison Protein Ql (U) Negative [facility] Gram stain for investigation of transfusion reactionOrdered By: Lenka Mcdonald on 06-03-2023 Microscopic observation Gram stain Nom (Unsp spec) [facility] Laboratory - Chemistry and C hemistry - challengeon 06-03-2023 Glucose Ql (U) Negative [facility] Laboratory - Urinalysison Protein Ql (U) Negative [facility] No Panel InformationOrdered By: Lenka Mcdonald on 06-03-2023 Genital Culture [facility] Absolute lymphocyte countOrd ered By: Natasha Correia on 05-28-2023 Lymphocytes Auto (Unsp spec) [#/Vol] 1.36 10*3/uL 0.83-4.51 [facility] Automated lymphocyte count a s percentage of total leukocytesOrdered By: Natasha Correia on 05-28-2023 Lymphocytes/100 WBC Auto (Unsp spec) 14.4 % 19-41 [facility] Basophil percentageOrdered B y: Natasha Correia on 05-28-2023 Basophils/100 WBC (Bld) 0.6 % 0-[address] [facility] Eosinophils/100 WBC (Bld) 1.4 % 0-5 [facility] Hemoglobin (Bld) [Mass/Vol] 11.3 g/dL 12.0-15.0 [facility] Monocytes/100 WBC (Bld) 6.0 % 0-[address] [facility] Neutrophils (Bld) [#/Vol] 7.2 10*3/uL 2.0-7.7 [facility] Neutrophils/100 WBC (Bld) 76.5 % 47-70 [facility] WBC (Bld) [#/Vol] 9.4 10*3/uL 4.4-11.0 [facility] Determination of erythrocyte mean corpuscular volume (MCV)Ordered By: Natasha Correia on 05-28-2023 MCV (RBC) [Entitic vol] 88.8 fL 81-[address] [facility] Erythrocyte distribution wid th ratioOrdered By: Natasha Correia on 05-28-2023 Erythrocyte distribution width (RBC) [Ratio] 13.2 % 11.6-14.6 [facility] Erythrocyte distribution wid th standard deviationOrdered By: Natasha Correia on 05-28-2023 Erythrocyte distribution width (RBC) [Entitic vol] 43.0 fL 35.1-43.9 [facility] Hematocrit Auto (Bld) [Volum e fraction]Ordered By: Natasha Correia on 05-28-2023 Hematocrit (Bld) [Volume fraction] 33.3 % 37-47 [facility] Immature granulocytes/100 WB C Auto (Bld)Ordered By: Natasha Correia on 05-28-2023 Immature granulocytes/100 WBC (Bld) 1.100 % 0.0-0.9 [facility] Comment on above: IG% - Immature Granu locytes (promyelocytes, myelocytes and metamyelocytes) > 1% indicates that a LEFT SHIFT is Present. Laboratory - Hematology and Cell countsOrdered By: Natasha Correia on 05-28-2023 MCH (RBC) [Entitic mass] 30.1 pg 27.0-32.0 [facility] MCHC (RBC) [Mass/Vol] 33.9 g/dL 32-36 [facility] Nucleated RBC/100 WBC (Bld) [Ratio] 0 % 0-5 [facility] Platelet mean volume (Bld) [Entitic vol] 9.4 fL 6.2-12.0 [facility] Platelets (Bld) [#/Vol] 310 10*3/uL 150-450 [facility] No Panel InformationOrdered By: Natasha Correia on 05-28-2023 Fibrinogen 475 mg/dl 203-444 [facility] RBC Auto (Bld) [#/Vol]Ordere d By: Natasha Correia on 05-28-2023 RBC (Bld) [#/Vol] 3.75 10*6/uL 4.2-5.4 [facility] Laboratory - Chemistry and C hemistry - challengeon 05-26-2023 Glucose Ql (U) Negative [facility] Laboratory - Urinalysison Protein Ql (U) Negative [facility] Culture, urineOrdered By: Tyrell Garcia on 05-22-2023 Bacteria identified Cx Nom (U) Culture exhibits no growth. [facility] Bacteria identified Cx Nom (U) Culture exhibits no growth. [facility] Gram stain for investigation of transfusion reactionOrdered By: Portia Garcia on 05-22-2023 Microscopic observation Gram stain Nom (Unsp spec) [facility] Microscopic observation Gram stain Nom (Unsp spec) [facility] Laboratory - Chemistry and C hemistry - challengeon 05-22-2023 Bilirubin Ql (U) Negative [facility] Glucose Ql (U) Negative [facility] Ketones Ql (U) Negative [facility] pH (U) 5.0 [pH] [facility] Specific gravity (U) [Rel density] 1.025 [facility] Urobilinogen (U) [Mass/Vol] Negative [facility] Laboratory - Hematology and Cell countson 05-22-2023 Hemoglobin Ql (U) Negative [facility] Laboratory - Specimen inform ationon 05-22-2023 Clarity (U) Clear [facility] Color (U) DARK YELLOW [facility] Laboratory - Urinalysison Nitrite Ql (U) Negative [facility] Protein Ql (U) Negative [facility] No Panel InformationOrdered By: Portia Garcia on 05-22-2023 Genital Culture Neisseria or beta-hemolytic Streptococcus isolated. [facility] Genital Culture Neisseria or beta-hemolytic Streptococcus isolated. [facility] No Panel Informationon 05-21 POC Bacterial Vaginitis (Rapid) Negative [facility] Urine Leukocytes Negatve [facility] Urine Non-Hemolyzed Blood Negative [facility] Laboratory - Chemistry and C hemistry - challengeon 05-05-2023 Glucose Ql (U) Negative [facility] Laboratory - Urinalysison Protein Ql (U) Negative [facility] Laboratory - Chemistry and C hemistry - challengeon 04-07-2023 Glucose Ql (U) Negative [facility] Laboratory - Urinalysison Protein Ql (U) Trace [facility] Gram stain for investigation of transfusion reactionOrdered By: Felicita Baron on 04-02-2023 Microscopic observation Gram stain Nom (Unsp spec) [facility] Microscopic observation Gram stain Nom (Unsp spec) [facility] Laboratory - Chemistry and C hemistry - challengeon 04-02-2023 Glucose Ql (U) Negative [facility] Laboratory - Urinalysison Protein Ql (U) Trace [facility] Thin prep Papanicolaou smear with manual screeningOrdered By: Felicita Baron on 04-02-2023 Thin prep Papanicolaou smear with manual screening [facility] Thin prep Papanicolaou smear with manual screening [facility] Progress Noteon 03-30-2023 [employer] Assistant Authentication Interface Message Text MFM attending note: [...] 4d with an BUCKY of 10/15/2023. 2. [place] rump length measurement is consistent with established gestational age. 3. First trimester nuchal translucency appeared normal for this gestational age, 1 mm. [facility] Plan of Care Diagnosis: Maternal osteogenesis imperfecta Cell free DNA aneuploidy screening is low risk; Declined invasive testing Plan: 1. Continued obstetrical care with her primary wrapper hands sprayer is recommended. Co-management of with [facility] due to maternal OI is available. 2. Evaluation of anatomy is recommended at 18 weeks gestation. This is planned with the Treatment [facility]. 3. Follow up q4 weeks to evaluate biometric parameters and anatomy beginning at viability. These are planned with [facility]. 4. surveillance as follows: as clinically indicated. [...] on patient care today: 20 minutes. Normal [facility] Absolute lymphocyte countOrd ered By: Natasha Calideepthi on 03-19-2023 Lymphocytes Auto (Unsp spec) [#/Vol] 1.65 10*3/uL 0.83-4.51 [facility] Basophil percentageOrdered B y: Natasha [place] on 03-19-2023 Basophils/100 WBC (Bld) 0.4 % 0-1 [facility] Bilirubin [Mass/Vol] 0.20 mg/dL 0.20-1.00 [facility] Comment on above: For patients on eltr ombopag therapy, use of Dimension [place] TBIL is not recommended. Chloride [Moles/Vol] 104 mmol/L 98-107 [facility] Eosinophils/100 WBC (Bld) 1.6 % 0-5 [facility] Glucose [Mass/Vol] 79 mg/dL 74-106 [facility] Neutrophils (Bld) [#/Vol] 7.0 10*3/uL 2.0-7.7 [facility] Neutrophils/100 WBC (Bld) 73.6 % 47-70 [facility] Potassium [Moles/Vol] 3.6 mmol/L 3.5-5.1 [facility] Protein [Mass/Vol] 7.5 g/dL 6.4-8.2 [facility] Sodium [Moles/Vol] 135 mmol/L 136-145 [facility] WBC (Bld) [#/Vol] 9.5 10*3/uL 4.4-11.0 [facility] Blood erythrocytes count (nu mber/volume)Ordered By: Natasha Correia on 03-19-2023 RBC (Bld) [#/Vol] 4.38 10*6/uL 4.2-5.4 [facility] Blood hemoglobin measurement (mass/volume)Ordered By: Natasha Correia on 03-19-2023 Hemoglobin (Bld) [Mass/Vol] 12.7 g/dL 12.0-15.0 [facility] Blood lymphocytes/100 leukoc ytesOrdered By: Natasha Correia on 03-19-2023 Lymphocytes/100 WBC (Bld) 17.3 % 19-41 [facility] Blood monocytes/100 leukocyt esOrdered By: Natasha Correia on 03-19-2023 Monocytes/100 WBC (Bld) 6.6 % 0-10 [facility] Blood platelet mean volumeOr dered By: Natasha Correia on 03-19-2023 Platelet mean volume (Bld) [Entitic vol] 9.0 fL 6.2-12.0 [facility] Determination of erythrocyte mean corpuscular volume (MCV)Ordered By: Natasha Correia on 03-19-2023 MCV (RBC) [Entitic vol] 87.9 fL 81-[address] [facility] HIV 1 and HIV-2 antibody ass ay with HIV-1 p24 antigen detectionOrdered By: Natasha Correia on 03-19-2023 HIV 1+2 Ab+HIV1 p24 Ag IA Ql Non-Reactive Nonreactive [facility] Hematocrit Auto (Bld) [Volum e fraction]Ordered By: Natasha Correia on 03-19-2023 Hematocrit (Bld) [Volume fraction] 38.5 % 37-47 [facility] Laboratory - Chemistry and C hemistry - challengeOrdered By: Natasha Correia on 03-19-2023 ALP [Catalytic activity/Vol] 112 U/L 45-117 [facility] ALT [Catalytic activity/Vol] 30 U/L 13-56 [facility] CO2 [Moles/Vol] 24.0 mmol/L 21.0-32.0 [facility] Free T4 [Mass/Vol] 0.74 ng/dL 0.76-1.46 [facility] Globulin (S) [Mass/Vol] 4.0 g/dL 2.2-4.2 [facility] Urea nitrogen/Creatinine [Mass ratio] 20.7 mg/mg 10-20 [facility] Laboratory - Hematology and Cell countsOrdered By: Natasha Correia on 03-19-2023 Erythrocyte distribution width (RBC) [Entitic vol] 43.3 fL 35.1-43.9 [facility] Erythrocyte distribution width (RBC) [Ratio] 13.4 % 11.6-14.6 [facility] Immature granulocytes/100 WBC (Bld) 0.500 % 0.0-0.9 [facility] Comment on above: IG% - Immature Granu locytes (promyelocytes, myelocytes and metamyelocytes) > 1% indicates that a LEFT SHIFT is Present. MCH (RBC) [Entitic mass] 29.0 pg 27.0-32.0 [facility] Nucleated RBC/100 WBC (Bld) [Ratio] 0 % 0-5 [facility] MCHC Auto (RBC) [Mass/Vol]Or dered By: Natasha Correia on 03-19-2023 MCHC (RBC) [Mass/Vol] 33.0 g/dL 32-36 [facility] No Panel InformationOrdered By: Natasha Correia on 03-19-2023 Estimated GFR (MDRD) Amer 160 mL/min >60 [facility] Comment on above: GFR Calc Estimated GFR (MDRD) Non-Af Amer 133 mL/min >60 [facility] Comment on above: Non- GFR Calc Hepatitis B Surface Antigen Non-Reactive Nonreactive [facility] Hepatitis C Antibody Non-Reactive Nonreactive [facility] Comment on above: Non Reactive: < 0.8 Equivocal: >/= 0.8 to < 1.0 Reactive: >/= 1.0The CDC recommends that a reactive/equivocal HCV antibody result be followed up by the HCV Nucleic Acid Amplificationtest (210823) Miscellaneous Test Comment MAILED SPECIMEN [facility] Rubella IgG Antibody Reactive Nonreactive [facility] Comment on above: Antibody Results Int erpretation of Immune Status Non Reactive Presumed Non-Immune Equivocal Equivocal Reactive Presumed Immune Thyroid Stimulating Hormone (TSH) 1.89 uIU/mL 0.358-3.74 [facility] Platelets bldOrdered By: Deandre Correia on 03-19-2023 Platelets (Bld) [#/Vol] 320 10*3/uL 150-450 [facility] Serum Treponema species anti body detectionOrdered By: Natasha Correia on 03-19-2023 Treponema sp Ab Ql (S) Non-Reactive [facility] Serum or plasma albumin kimber urement (mass/volume)Ordered By: Natasha Correia on 03-19-2023 Albumin [Mass/Vol] 3.5 g/dL 3.2-5.0 [facility] Serum or plasma albumin/glob ulin mass ratioOrdered By: Natasha Correia on 03-19-2023 Albumin/Globulin [Mass ratio] 0.9 {ratio} 0.9-2.4 [facility] Serum or plasma calcium kimber urement (mass/volume)Ordered By: Natasha Correia on 03-19-2023 Calcium [Mass/Vol] 8.7 mg/dL 8.5-10.1 [facility] Serum or plasma creatinine m easurement (mass/volume)Ordered By: Natasha Correia on 03-19-2023 Creatinine [Mass/Vol] 0.58 mg/dL 0.55-1.02 [facility] Comment on above: The validity of the calculated GFR & GFRAA in patients over 70 years has not been determined. Clinical correlation is essential. Serum or plasma urea nitroge n measurement (mass/volume)Ordered By: Natasha Correia on 03-19-2023 Urea nitrogen [Mass/Vol] 12 mg/dL 7-18 [facility] Thin prep Papanicolaou smear with manual screeningOrdered By: Natasha Correia on 03-19-2023 Thin prep Papanicolaou smear with manual screening 12 U/L 15-37 [facility] Thin prep Papanicolaou smear with manual screening 7 5-15 [facility] Chlamydia trachomatis rRNA d etection by probe and target amplification methodOrdered By: Natasha Correia on 03-09-2023 C. trachomatis rRNA KENNETH+probe Ql (Unsp spec) Negative Negative [facility] Culture, urineOrdered By: Matt Correia on 03-09-2023 Bacteria identified Cx Nom (U) Positive [facility] Bacteria identified Cx Nom (U) Positive [facility] Gram stain for investigation of transfusion reactionOrdered By: Natasha Correia on 03-09-2023 Microscopic observation Gram stain Nom (Unsp spec) [facility] Microscopic observation Gram stain Nom (Unsp spec) [facility] Laboratory - Microbiology an d Antimicrobial susceptibilityOrdered By: Natasha Correia on 03-09-2023 N. gonorrhoeae DNA KENNETH+probe Ql (Unsp spec) Negative Negative [facility] Comment on above: Performed at: =[address] [id number] Director: Susie Leigh MD, Phone: [phone] Thin prep Papanicolaou smear with manual screeningOrdered By: Natasha Correia on 03-09-2023 Thin prep Papanicolaou smear with manual screening [facility] Thin prep Papanicolaou smear with manual screening [facility] TCANCon 03-07-2023 Test cancelled: vagdna Normal [facility] ([place]) Comment on above: Performed By: #### [facility] #### [place] [id number] Gram stain for investigation of transfusion reactionOrdered By: Tonia Iverson on 02-17-2023 Microscopic observation Gram stain Nom (Unsp spec) [facility] Microscopic observation Gram stain Nom (Unsp spec) [facility] Laboratory - Chemistry and C hemistry - challengeon 02-17-2023 HCG ( test) Ql (U) Positive [facility] Bilirubin Ql (U) Negative [facility] Glucose Ql (U) Negative [facility] Ketones Ql (U) Negative [facility] pH (U) 5.0 [pH] [facility] Urobilinogen (U) [Mass/Vol] Negative [facility] Laboratory - Hematology and Cell countson 02-17-2023 Hemoglobin Ql (U) Negative [facility] Laboratory - Specimen inform ationon 02-17-2023 Clarity (U) Clear [facility] Color (U) YELLOW [facility] Laboratory - Urinalysison Nitrite Ql (U) Negative [facility] Protein Ql (U) Negative [facility] No Panel Informationon 02-17 POC Bacterial Vaginitis (Rapid) Negative [facility] Urine Leukocytes Negatve [facility] Urine Non-Hemolyzed Blood Negative [facility] Thin prep Papanicolaou smear with manual screeningOrdered By: Tonia Iverson on 02-17-2023 Genital Culture G. vaginalis (Presumptive) [facility] Genital Culture G. vaginalis (Presumptive) [facility] Chlamydia trachomatis rRNA d etection by probe and target amplification methodOrdered By: Tonia Iverson on 01-13-2023 C. trachomatis rRNA KENNETH+probe Ql (Unsp spec) Negative Negative [facility] Gram stain for investigation of transfusion reactionOrdered By: Tonia Iverson on 01-13-2023 Microscopic observation Gram stain Nom (Unsp spec) [facility] Laboratory - Chemistry and C hemistry - challengeon 01-13-2023 Bilirubin Ql (U) Negative [facility] Glucose Ql (U) Negative [facility] Ketones Ql (U) Negative [facility] pH (U) 5.0 [pH] [facility] Specific gravity (U) [Rel density] 1.010 [facility] Urobilinogen (U) [Mass/Vol] Negative [facility] Laboratory - Hematology and Cell countson 01-13-2023 Hemoglobin Ql (U) Negative [facility] Laboratory - Microbiology an d Antimicrobial susceptibilityOrdered By: Tonia Iverson on 01-13-2023 N. gonorrhoeae DNA KENNETH+probe Ql (Unsp spec) Negative Negative [facility] Comment on above: Performed at: =[address] [id number] Director: Susie Leigh MD, Phone: [phone] Laboratory - Specimen inform ationon 01-13-2023 Clarity (U) Clear [facility] Color (U) Yellow [facility] Laboratory - Urinalysison Nitrite Ql (U) Negative [facility] Protein Ql (U) Negative [facility] No Panel Informationon 01-13 POC Bacterial Vaginitis (Rapid) Negative [facility] POC Trichomonas (Rapid) Negative [facility] Urine Leukocytes Negatve [facility] Urine Non-Hemolyzed Blood Negative [facility] Thin prep Papanicolaou smear with manual screeningOrdered By: Tonia Iverson on 01-13-2023 Genital Culture Presumptive E. coli [facility] XR CHEST 2V FRONTAL/LATon [facility] XR Chest PA and Lateralon IMPRESSION: No acute radiographic abnormality. 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 DIVISION OF RADIOLOGY Provider, [facility] - 07/12/2022 * * *Final Report* * [...] spine. IMPRESSION IMPRESSION: No acute radiographic abnormality. Windows Server Administrator: PAOLA Transcribe Date/Time: Jul 12 2022 9:27A Dictated by : NICOLAS CELESTIN MD This examination was interpreted and the report reviewed and electronically signed by: NICOLAS CELESTIN MD on Jul 12 2022 9:27AM EST [facility] Radiology Study observation (narrative) Moustapha mortensen [facility] XR Chest PA and LateralOrder ed By: Ccf Provider on 07-12-2022 [facility] Absolute lymphocyte counton 04-04-2022 Lymphocytes Auto (Unsp spec) [#/Vol] 2.18 10*3/uL 0.83-4.51 [facility] Work Phone: Basophil percentageon 2022 Basophils/100 WBC (Bld) 0.7 % 0-[address] [facility] Work Phone: Chloride [Moles/Vol] 111 mmol/L 98-107 [facility] Work Phone: Eosinophils/100 WBC (Bld) 3.0 % 0-5 [facility] Work Phone: Glucose [Mass/Vol] 80 mg/dL 74-106 [facility] Work Phone: Neutrophils (Bld) [#/Vol] 5.0 10*3/uL 2.0-7.7 [facility] Work Phone: [phone] Neutrophils/100 WBC (Bld) 61.7 % 47-70 [facility] Work Phone: [phone] Potassium [Moles/Vol] 3.5 mmol/L 3.5-5.1 [facility] Work Phone: Sodium [Moles/Vol] 140 mmol/L 136-145 [facility] Work Phone: WBC (Bld) [#/Vol] 8.1 10*3/uL 4.4-11.0 [facility] Work Phone: Basophil percentage 0-5 SEEN /hpf 0-5 [facility] Work Phone: [phone] Bilirubin Test strip Ql (U)o n 04-04-2022 Bilirubin Ql (U) Negative Negative [facility] Work Phone: Blood erythrocytes count (nu mber/volume)on 04-04-2022 RBC (Bld) [#/Vol] 3.97 10*6/uL 4.2-5.4 [facility]: Blood hemoglobin measurement (mass/volume)on 04-04-2022 Hemoglobin (Bld) [Mass/Vol] 11.8 g/dL 12.0-15.0 [facility] Work Phone: Blood lymphocytes/100 leukoc yteson 04-04-2022 Lymphocytes/100 WBC (Bld) 26.9 % 19-41 [facility] Work Phone: Blood monocytes/100 leukocyt eson 04-04-2022 Monocytes/100 WBC (Bld) 7.3 % 0-[address] [facility] Work Phone: Blood platelet mean volumeon 04-04-2022 Platelet mean volume (Bld) [Entitic vol] 9.6 fL 6.2-12.0 [facility] Work Phone: Determination of erythrocyte mean corpuscular volume (MCV)on 04-04-2022 MCV (RBC) [Entitic vol] 88.9 fL 81-[address] [facility] Work Phone: Hematocrit Auto (Bld) [Volum e fraction]on 04-04-2022 Hematocrit (Bld) [Volume fraction] 35.3 % 37-47 [facility] Work Phone: Ketones Test strip Ql (U)on 04-04-2022 Ketones Ql (U) 50 mg/dl Negative [facility] Work Phone: Laboratory - Chemistry and C hemistry - challengeon 04-04-2022 CO2 [Moles/Vol] 21.0 mmol/L 21.0-32.0 [facility] Work Phone: Urea nitrogen/Creatinine [Mass ratio] 9.3 mg/mg 10-20 [facility] Work Phone: Laboratory - Drug toxicology on 04-04-2022 Amphetamines Ql (U) Negative <1000 ng/mL [facility] Work Phone: Benzodiazepines Ql (U) Negative < 200 ng/mL [facility] Work Phone: Cannabinoids Screen Ql (U) Negative < 50 ng/mL [facility] Work Phone: Cocaine Ql (U) Negative < 300 ng/mL [facility] Work Phone: Opiates Ql (U) Negative < 300 ng/mL [facility] Work Phone: Laboratory - Hematology and Cell countson 04-04-2022 Erythrocyte distribution width (RBC) [Entitic vol] 40.3 fL 35.1-43.9 [facility] Work Phone: Erythrocyte distribution width (RBC) [Ratio] 12.3 % 11.6-14.6 [facility] Work Phone: Immature granulocytes/100 WBC (Bld) 0.400 % 0.0-0.9 [facility] Work Phone: Comment on above: IG% - Immature Granu locytes (promyelocytes, myelocytes and metamyelocytes) > 1% indicates that a LEFT SHIFT is Present. MCH (RBC) [Entitic mass] 29.7 pg 27.0-32.0 [facility] Work Phone: Nucleated RBC/100 WBC (Bld) [Ratio] 0 % 0-5 [facility] Work Phone: MCHC Auto (RBC) [Mass/Vol]on 04-04-2022 MCHC (RBC) [Mass/Vol] 33.4 g/dL 32-36 [facility] Work Phone: Mucus LM Ql (Urine sed)on Mucus Ql (Urine sed) 0 SEEN /hpf [facility] Work Phone: Nitrite Test strip Ql (U)on 04-04-2022 Nitrite Ql (U) Negative Negative [facility] Work Phone: No Panel Informationon 04-04 Estimated Creatinine Clearance Calc 129.23 ml/min [facility] Work Phone: Estimated GFR (MDRD) Amer 176 mL/min >60 [facility] Work Phone: Comment on above: GFR Calc Estimated GFR (MDRD) Non-Af Amer 146 mL/min >60 [facility] Work Phone: Comment on above: Non- GFR Calc MDMA (Ecstasy) Screen Negative < 500 ng/mL [facility] Work Phone: Urine Barbiturates Screen Negative < 200 ng/mL [facility] Work Phone: Urine Drug Screen Comment [facility] Work Phone: Comment on above: CONFIRMATORY TESTING [...] Methadone Screen Negative < 300 ng/mL [facility] Work Phone: Platelets bldon 04-04-2022 Platelets (Bld) [#/Vol] 279 10*3/uL 150-450 [facility] Work Phone: Protein Test strip Ql (U)on 04-04-2022 Protein Ql (U) Negative Negative [facility] Work Phone: Serum or plasma calcium kimber urement (mass/volume)on 04-04-2022 Calcium [Mass/Vol] 8.3 mg/dL 8.5-10.1 [facility] Work Phone: Serum or plasma creatinine m easurement (mass/volume)on 04-04-2022 Creatinine [Mass/Vol] 0.54 mg/dL 0.55-1.02 [facility] Work Phone: Comment on above: The validity of the calculated GFR & GFRAA in patients over 70 years has not been determined. Clinical correlation is essential. Serum or plasma urea nitroge n measurement (mass/volume)on 04-04-2022 Urea nitrogen [Mass/Vol] 5 mg/dL 7-18 [facility] Work Phone: Squamous epithelial cells de tection in urine sediment by light microscopyon 04-04-2022 Epithelial cells.squamous LM Ql (Urine sed) 0-5 SEEN /hpf 5-10 [facility] Work Phone: Thin prep Papanicolaou smear with manual screeningon 04-04-2022 Thin prep Papanicolaou smear with manual screening 8 5-15 [facility] Work Phone: Urine blood detectionon 03-23 RBC Ql (U) Negative Negative [facility] Work Phone: RBC Ql (U) 0 SEEN /hpf 0-5 [facility] Work Phone: Urine clarityon 04-04-2022 Clarity (U) Clear Clear [facility] Work Phone: Urine color determinationon 04-04-2022 Color (U) Yellow Yellow [facility] Work Phone: Urine glucose detectionon Glucose Ql (U) Normal mg/dl Normal [facility] Work Phone: Urine leukocyte esterase det ection by dipstickon 04-04-2022 Leukocyte esterase Test strip Ql (U) Negative Negative [facility] Work Phone: Urine pHon 04-04-2022 pH (U) 6.0 [pH] 5.0 - 8.0 [facility] Work Phone: Urine phencyclidine (PCP) de tectionon 04-04-2022 Phencyclidine Ql (U) Negative < 25 ng/mL [facility] Work Phone: Urine sediment bacteria coun t by microscopy (number/high power field)on 04-04-2022 Bacteria LM.HPF (Urine sed) [#/Area] 2 /[HPF] None Seen [facility] Work Phone: Urine specific gravity measu rementon 04-04-2022 Specific gravity (U) [Rel density] 1.015 1.002-1.030 [facility] Work Phone: Urobilinogen Auto test strip Ql (U)on 04-04-2022 Urobilinogen Ql (U) Normal mg/dl Normal [facility] Work Phone: Whole blood hemoglobin A1c/t otal hemoglobin ratio (mass fraction)on 04-04-2022 HbA1c (Bld) [Mass fraction] 4.5 % 3.8-5.6 [facility] Work Phone: Comment on above: Normal < 5.7 % Predi abetic 5.7 - 6.4 % Diabetic >or= 6.5 % Please note range changes. Absolute lymphocyte counton 04-03-2022 Lymphocytes Auto (Unsp spec) [#/Vol] 1.57 10*3/uL 0.83-4.51 [facility] Work Phone: Basophil percentageon 2022 Basophils/100 WBC (Bld) 0.7 % 0-[address] [facility] Work Phone: Bilirubin [Mass/Vol] 0.70 mg/dL 0.20-1.00 [facility] Work Phone: Comment on above: For patients on eltr ombopag therapy, use of Dimension [place] TBIL is not recommended. Chloride [Moles/Vol] 112 mmol/L 98-107 [facility] Work Phone: Eosinophils/100 WBC (Bld) 0.3 % 0-5 [facility] Work Phone: Glucose [Mass/Vol] 86 mg/dL 74-106 [facility] Work Phone: Neutrophils (Bld) [#/Vol] 6.6 10*3/uL 2.0-7.7 [facility] Work Phone: Neutrophils/100 WBC (Bld) 73.8 % 47-70 [facility] Work Phone: Potassium [Moles/Vol] 3.4 mmol/L 3.5-5.1 [facility] Work Phone: Protein [Mass/Vol] 7.4 g/dL 6.4-8.2 [facility] Work Phone: Sodium [Moles/Vol] 141 mmol/L 136-145 [facility] Work Phone: WBC (Bld) [#/Vol] 8.9 10*3/uL 4.4-11.0 [facility] Work Phone: Blood erythrocytes count (nu mber/volume)on 04-03-2022 RBC (Bld) [#/Vol] 4.32 10*6/uL 4.2-5.4 [facility] Work Phone: Blood hemoglobin measurement (mass/volume)on 04-03-2022 Hemoglobin (Bld) [Mass/Vol] 12.7 g/dL 12.0-15.0 [facility] Work Phone: Blood lymphocytes/100 leukoc yteson 04-03-2022 Lymphocytes/100 WBC (Bld) 17.7 % 19-41 [facility] Work Phone: Blood monocytes/100 leukocyt eson 04-03-2022 Monocytes/100 WBC (Bld) 7.0 % 0-[address] [facility] Work Phone: Blood platelet mean volumeon 04-03-2022 Platelet mean volume (Bld) [Entitic vol] 9.6 fL 6.2-12.0 [facility] Work Phone: Determination of erythrocyte mean corpuscular volume (MCV)on 04-03-2022 MCV (RBC) [Entitic vol] 87.3 fL 81-[address] [facility] Work Phone: Direct bilirubinon 3 Bilirubin.direct [Mass/Vol] 0.18 mg/dL 0.00-0.30 [facility] Work Phone: Hematocrit Auto (Bld) [Volum e fraction]on 04-03-2022 Hematocrit (Bld) [Volume fraction] 37.7 % 37-47 [facility] Work Phone: Laboratory - Chemistry and C hemistry - challengeon 04-03-2022 ALP [Catalytic activity/Vol] 137 U/L 45-117 [facility] Work Phone: ALT [Catalytic activity/Vol] 22 U/L 13-56 [facility] Work Phone: CO2 [Moles/Vol] 23.0 mmol/L 21.0-32.0 [facility] Work Phone: Globulin (S) [Mass/Vol] 3.2 g/dL 2.2-4.[address] [facility] Work Phone: Lipase [Catalytic activity/Vol] 91 U/L 73-393 [facility] Work Phone: Urea nitrogen/Creatinine [Mass ratio] 4.9 mg/mg 10-20 [facility] Work Phone: Laboratory - Hematology and Cell countson 04-03-2022 Erythrocyte distribution width (RBC) [Entitic vol] 39.7 fL 35.1-43.9 [facility] Work Phone: Erythrocyte distribution width (RBC) [Ratio] 12.3 % 11.6-14.6 [facility] Work Phone: Immature granulocytes/100 WBC (Bld) 0.500 % 0.0-0.9 [facility] Work Phone: Comment on above: IG% - Immature Granu locytes (promyelocytes, myelocytes and metamyelocytes) > 1% indicates that a LEFT SHIFT is Present. MCH (RBC) [Entitic mass] 29.4 pg 27.0-32.0 [facility] Work Phone: Nucleated RBC/100 WBC (Bld) [Ratio] 0 % 0-5 [facility] Work Phone: MCHC Auto (RBC) [Mass/Vol]on 04-03-2022 MCHC (RBC) [Mass/Vol] 33.7 g/dL 32-36 [facility] Work Phone: No Panel Informationon 04-03 Estimated Creatinine Clearance Calc 113.23 ml/min [facility] Work Phone: Estimated GFR (MDRD) Amer 151 mL/min >60 [facility] Work Phone: Comment on above: GFR Calc Estimated GFR (MDRD) Non-Af Amer 125 mL/min >60 [facility] Work Phone: Comment on above: Non- GFR Calc Troponin I High Sensitivity 5 pg/mL 3.0-54.0 [facility] Work Phone: Comment on above: Please Note: New Bree t Units and Gender Specific Reference Ranges. For more information see Policy Stat Procedure [place] High Sensitivity Troponin (TNIH) and attachments. Platelets bldon 04-03-2022 Platelets (Bld) [#/Vol] 292 10*3/uL 150-450 [facility] Work Phone: Serum or plasma albumin kimber urement (mass/volume)on 04-03-2022 Albumin [Mass/Vol] 4.2 g/dL 3.2-5.0 [facility] Work Phone: Serum or plasma calcium kimber urement (mass/volume)on 04-03-2022 Calcium [Mass/Vol] 9.0 mg/dL 8.5-10.1 [facility] Work Phone: Serum or plasma creatinine m easurement (mass/volume)on 04-03-2022 Creatinine [Mass/Vol] 0.62 mg/dL 0.55-1.02 [facility] Work Phone: Comment on above: The validity of the calculated GFR & GFRAA in patients over 70 years has not been determined. Clinical correlation is essential. Serum or plasma urea nitroge n measurement (mass/volume)on 04-03-2022 Urea nitrogen [Mass/Vol] 3 mg/dL 7-18 [facility] Work Phone: Thin prep Papanicolaou smear with manual screeningon 04-03-2022 Thin prep Papanicolaou smear with manual screening 11 U/L 15-37 [facility] Work Phone: Thin prep Papanicolaou smear with manual screening 6 5-15 [facility] Work Phone: LABORATORYOrdered By: Theresa Meek on 03-02-2022 Beta HCG ( test) Ql (U) HCG not detected.Very dilute urine specimens, as indicated by a low specific gravity, may not contain novelties sales representative levels of hCG.If is still suspected, a first morning urine specimen should be collected 48 hours later and tested. Invalid Interpretation Code Manual Urine SS HCG Qn (U) Negative (03/02/22 6:46 PM) Invalid Interpretation Code Manual Urine SS LABORATORYOrdered By: SYSTEM SYSTEM on 03-02-2022 Troponin I.cardiac DL <= 0.01 ng/mL [Mass/Vol] ng/L Invalid Interpretation Code 0.00 - 34.00 ng/L AH ADM SS TSH Qn 1.908 mIU/mL Invalid Interpretation Code 0.550 - 4.780 mIU/mL AH ADM SS Troponin I.cardiac DL <= 0.01 ng/mL [Mass/Vol] ng/L Invalid Interpretation Code 0.00 - 34.00 ng/L AH ADM SS Albumin BCP dye [Mass/Vol] 3.8 G/dL Invalid Interpretation Code 3.2 - 4.8 G/dL AH ADM SS Albumin/Globulin [Mass ratio] 1.4 {ratio} Invalid Interpretation Code 0.9 - 1.6 ratio AH ADM SS ALP [Catalytic activity/Vol] 130 U/L Invalid Interpretation Code 38 - 126 U/L ADM SS ALT No additional P-5'-P [Catalytic activity/Vol] 16 U/L Invalid Interpretation Code 10 - 49 U/L AH ADM SS AST [Catalytic activity/Vol] 16 U/L Invalid Interpretation Code 8 - 34 U/L AH ADM SS Basophils (Bld) [#/Vol] 0.1 103/mcL Invalid Interpretation Code 0.0 - 0.3 10^3/mcL Workflow SS Basophils/100 WBC (Bld) 0.8 % Invalid Interpretation Code 0.0 - 2.5 % Workflow SS Bilirubin [Mass/Vol] 0.60 mg/dL Invalid Interpretation Code 0.20 - 1.20 mg/dL AH ADM SS Calcium [Mass/Vol] 8.8 mg/dL Invalid Interpretation Code 8.7 - 10.4 mg/dL AH ADM SS Chloride [Moles/Vol] 108 mmol/L Invalid Interpretation Code 98 - 110 mEq/L AH ADM SS CK [Catalytic activity/Vol] 79 U/L Invalid Interpretation Code 7 - 185 U/L AH ADM SS CO2 [Moles/Vol] 21 mmol/L Invalid Interpretation Code 22 - 32 mEq/L AH ADM SS Creatinine [Mass/Vol] 0.54 mg/dL Invalid Interpretation Code 0.50 - 1.20 mg/dL AH ADM SS Electrolyte Balance 12.0 mEq/L Invalid Interpretation Code 4.0 - 15.0 mEq/L AH ADM SS Eosinophils (Bld) [#/Vol] 0.0 103/mcL Invalid Interpretation Code 0.0 - 0.7 10^3/mcL AH Workflow SS Eosinophils/100 WBC (Bld) 0.2 % Invalid Interpretation Code 0.0 - 6.0 % AH Workflow SS Erythrocyte distribution width (RBC) [Ratio] 12.7 % Invalid Interpretation Code 11.5 - 15.5 % AH Workflow SS GFR/1.73 sq M.predicted among blacks [...] Invalid Interpretation Code 0.9 - 4.3 10^3/mcL AH Workflow SS Lymphocytes/100 WBC (Bld) 16.3 % Invalid Interpretation Code 20.0 - 40.0 % AH Workflow SS Magnesium [Mass/Vol] 2.4 mg/dL Invalid Interpretation Code 1.6 - 2.4 mg/dL ADM SS MCH (RBC) [Entitic mass] 29.2 pg Invalid Interpretation Code 27.0 - 33.0 pg AH Workflow SS MCHC 34.0 G/dL Invalid Interpretation Code 32.0 - 36.0 G/dL Workflow SS MCV (RBC) [Entitic vol] 86.0 fL Invalid Interpretation Code 80.0 - 99.0 fL Workflow SS Monocytes (Bld) [#/Vol] 0.5 103/mcL Invalid Interpretation Code 0.1 - 1.4 10^3/mcL Workflow SS Monocytes/100 WBC (Bld) 5.6 % Invalid Interpretation Code 2.0 - 13.0 % AH Workflow SS Neutrophils (Bld) [#/Vol] 7.1 103/mcL Invalid Interpretation Code 2.3 - 8.1 10^3/mcL Workflow SS Neutrophils/100 WBC (Bld) 77.1 % Invalid Interpretation Code 50.0 - 75.0 % Workflow SS Phosphate [Mass/Vol] 3.5 mg/dL Invalid Interpretation Code 2.4 - 5.1 mg/dL ADM SS Platelet mean volume (Bld) [Entitic vol] 7.9 fL Invalid Interpretation Code 6.6 - 10.5 fL Workflow SS Platelets (Bld) [#/Vol] 320 103/mcL Invalid Interpretation Code 150 - 450 10^3/mcL Workflow SS Potassium [Moles/Vol] 3.6 mmol/L Invalid Interpretation Code 3.5 - 5.0 mEq/L ADM SS Protein [Mass/Vol] 6.6 G/dL Invalid Interpretation Code 5.7 - 8.2 G/dL ADM SS RBC (Bld) [#/Vol] 4.19 106/mcL Invalid Interpretation Code 4.10 - 5.30 10^6/mcL Workflow SS Sodium [Moles/Vol] 141 mmol/L Invalid [...] Invalid Interpretation Code 0.00 - 5.00 ng/mL ADM SS Free T4 index Calc [Mass/Vol] Not Valid Invalid Interpretation Code 0.0 - 4.5 Chemistry S Comment on above: Result Comment: CPK <185 invalidates relative index Gram stain for investigation of transfusion reactionon 07-03-2021 Microscopic observation Gram stain Nom (Unsp spec) [facility] Work Phone: Thin prep Papanicolaou smear with manual screeningon 07-03-2021 Genital Culture Streptococcus group B [facility] Work Phone: Laboratory - Chemistry and C hemistry - challengeon 04-24-2021 HCG ( test) Ql (U) Negative [facility] Work Phone: Cervical or vagninal specime n microscopic examination by cytology stain (reported ason 04-08-2021 Cytology report Cyto stain Doc (Cvx/Vag) Comment [facility] Work Phone: Comment on above: The Pap [...] Microscopic observation Gram stain Nom (Unsp spec) [facility] Work Phone: Laboratory - Cytologyon 03-23 Coal Chute Worker Cyto stain Nom (Cvx/Vag) [ID] Comment [facility] Work Phone: Comment on above: Aby Daigle Cytote chnologist (ASCP) Laboratory - Miscellaneous t estson 04-08-2021 Service comment (Unsp spec) [Interp] Comment [facility] Work Phone: Comment on above: This liquid based Th inPrep(R) pap test was screened withthe use of an image guided system. Service comment (Unsp spec) [Interp] . [facility] Work Phone: No Panel Informationon 04-08 Human Papillomavirus Screen Comment [facility] Work Phone: Comment on above: The HPV DNA reflex [place] were not met with this specimenresult therefore, no HPV testing was performed.Performed at: [facility] [address] [id number] Director: Susie Leigh MD, Phone: [phone] Pathology report final diagnosis Narrative Comment [facility] Work Phone: Comment on above: NEGATIVE FOR INTRAEP ITHELIAL LESION OR MALIGNANCY. Thin prep Papanicolaou smear with manual screeningon 04-08-2021 Genital Culture Streptococcus group B [facility] Work Phone: Genital Culture GNR lactose ug designer [facility] Work Phone: GC/Chlamydia Amp, Uron 03-08 Chlamydia Amplif, Ur Normal [facility] Comment on above: Result Comment: Nega tive for For screening asymptomatic women, a vaginal swab specimen (APTIMA vaginal swab 037992) is optimal. Urine specimens have reduced sensitivity for Chlamydia trachomatis or Neisseria gonorrhoeae infection in female patients without symptoms. This test was developed and its performance characteristics determined by [facility] ([facility]). It has not been cleared or approved by the FDA. RT [facility] is regulated under CLIA as qualified to perform high complexity testing. This test is used for clinical purposes. It should not be regarded as investigational or for research. Chlamydia For screening asymptomatic women, a vaginal swab specimen (APTIMA vaginal swab 990528) is optimal. Urine specimens have reduced sensitivity for Chlamydia trachomatis or Neisseria gonorrhoeae infection in female patients without symptoms. This test was developed and its performance characteristics determined by [facility] ([facility]). It has not been cleared or approved by the FDA. [facility] is regulated under CLIA as qualified to perform high complexity testing. This test is used for clinical purposes. It should not be regarded as investigational or for research. trachomatis by For screening asymptomatic women, a vaginal swab specimen (APTIMA vaginal swab 790844) is optimal. Urine specimens have reduced sensitivity for Chlamydia trachomatis or Neisseria gonorrhoeae infection in female patients without symptoms. This test was developed and its performance characteristics determined by [facility] ( [facility]). It has not been cleared or approved by the FDA. [facility] is regulated under CLIA as qualified to perform high complexity testing. This test is used for clinical purposes. It should not be regarded as investigational or for research. amplification. For screening asymptomatic women, a vaginal swab specimen (APTIMA vaginal swab 163003) is optimal. Urine specimens have reduced sensitivity for Chlamydia trachomatis or Neisseria gonorrhoeae infection in female patients without symptoms. This test was developed and its performance characteristics determined by [facility] ( [facility]). It has not been cleared or approved by the FDA. [facility] is regulated under CLIA as qualified to perform high complexity testing. This test is used for clinical purposes. It should not be regarded as investigational or for research. Performed By: #### U GCCT #### [facility] Routine Lab [address] [place] [address] GC Amplification, Ur NGNEG Normal [facility] Comment on above: Performed By: #### U GCCT #### [facility] Routine Lab [address] [place] [address] GC/Chlamydia Amplifon 2020 Chlamydia Amplif CLNEG Normal [facility] GC Amplification NGNEG Normal [facility] GC/Chlam Amp Source Vaginal Normal [facility] Lab Ova and Parasite Exon 2020 Ova and Parasite Ex Specimen Desc: STOOL Sp. Request/Comment: OPKIT Culture Result NOPARA Report Status 06/27/2020 FINAL Normal [facility] Vag Pathogens DNAon 06-23-19 21 Jennifer sp DNA Probe NEGCAN Normal Negativ e for Jennifer species by DNA Probe [facility] Comment on above: Performed By: #### V AGDNA #### [facility] Microbiology [address] [place] [address] Adrien vag DNA Probe NEGGAR Normal Negative for Gardnerella vaginalis by DNA Probe [facility] Comment on above: Performed By: #### V AGDNA #### [facility] Microbiology [address] [place], [place] [id number] Trich vag DNA Probe NEGTRI Normal Negative for Trichomonas vaginalis by DNA Probe [facility] Comment on above: Performed By: #### V AGDNA #### [facility] Microbiology [address] [place], [place] [address] GC/Chlamydia Amp, Uron 06-15 Chlamydia Amplif, Ur Normal [facility] Comment on above: Result Comment: Nega tive for For screening asymptomatic women, a vaginal swab specimen (APTIMA vaginal swab 599834) is optimal. Urine specimens have reduced sensitivity for Chlamydia trachomatis or Neisseria gonorrhoeae infection in female patients without symptoms. This test was developed and its performance characteristics determined by [facility] ([facility]). It has not been cleared or approved by the FDA. [facility] is regulated under CLIA as qualified to perform high complexity testing. This test is used for clinical purposes. It should not be regarded as investigational or for research. Chlamydia For screening asymptomatic women, a vaginal swab specimen (APTIMA vaginal swab 871703) is optimal. Urine specimens have reduced sensitivity for Chlamydia trachomatis or Neisseria gonorrhoeae infection in female patients without symptoms. This test was developed and its performance characteristics determined by [facility] ([facility]). It has not been cleared or approved by the FDA. RT [facility] is regulated under CLIA as qualified to perform high complexity testing. This test is used for clinical purposes. It should not be regarded as investigational or for research. trachomatis by For screening asymptomatic women, a vaginal swab specimen (APTIMA vaginal swab 655655) is optimal. Urine specimens have reduced sensitivity for Chlamydia trachomatis or Neisseria gonorrhoeae infection in female patients without symptoms. This test was developed and its performance characteristics determined by [facility] and [facility] ([facility]). It has not been cleared or approved by the FDA. RT [facility] is regulated under CLIA as qualified to perform high complexity testing. This test is used for clinical purposes. It should not be regarded as investigational or for research. amplification. For screening asymptomatic women, a vaginal swab specimen (APTIMA vaginal swab 131830) is optimal. Urine specimens have reduced sensitivity for Chlamydia trachomatis or Neisseria gonorrhoeae infection in female patients without symptoms. This test was developed and its performance characteristics determined by [facility] and [facility] ([facility]). It has not been cleared or approved by the FDA. [facility] is regulated under CLIA as qualified to perform high complexity testing. This test is used for clinical purposes. It should not be regarded as investigational or for research. Performed By: #### U GCCT #### [facility] [employer] Routine Lab [address] [place], [place] [address] GC Amplification, Ur NGNEG Normal [facility] Comment on above: Performed By: #### U GCCT #### [facility] Routine Lab [address] [place], [place] [address] Therapy Communicationon 02-20 Therapy Communication Message NAPOLEON WILLIS was (D/C)- last seen: 11/17/19. Patient was seen for initial evaluation on 11/17/19 and then failed to return for scheduled treatment sessions. She will be discharged at this time in accordance with clinic's attendance policy. Signatures Electronically signed by : Jacki Perez PT; Mar 05 2020 1:29PM EST (Author) Normal Otonomy Therapy Communicationon 11-21 Therapy Communication Message NAPOLEON WILLIS no showed today . THerapist attempted to call patient but no answer and no identifiable voice message therefore therapist just asked patient to return call. Signatures Electronically signed by : Jacki Perez PT; Dec 08 2019 1:40PM EST (Author) Normal Otonomy Therapy Communicationon 11-21 Therapy Communication Message NAPOLEON WILLIS no showed today . Patient no show no call. Signatures Electronically signed by : Victoria Ware PTA; Dec 01 2019 2:34PM EST (Author) Normal Otonomy SURGICALon 11-25-2019 SURGICAL COLON BX 10 CM. - CO NATA POLYP @ 10 CM FINAL DIAGNOSIS: 10 CM COLON POLYP BIOPSY WITH POLYPOID PORTION OF BENIGN COLONIC MUCOSA. NO MALIGNANCY IDENTIFIED. Dictated by: JO ARIAS D.O MICROSCOPIC DESCRIPTION: Slide reviewed. MAGDY/halle 11/30/2019 GROSS DESCRIPTION: Specimen is received in the appropriately labeled container and is designated as polyp at 10 cm. Specimen consists of one portion of zambrano tissue 2 mm in diameter. 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 Referred by: HARI Sinclair Adult Risk Screening There are no spiritual/cultural practices/values/needs that are important to know Pain Scale: On a scale of 0 to 10, the patient rates the pain at 4. Please identify location of pain: pelvic area. Pain Quality: burning and sharp. Insurance Insurance reviewed Visit number: 1 [facility] services Dx:R10.2 pelvic pain Supervising PT: Jacki [...] pain when emptying her bladder. Pain with [place]: Yes. Bladder/Bowel: Excessive Urinary Urgency: occasionally Unintentional [...] today's treatment with some difficulty. Evaluation Code: 54590 PT Eval: Low Complexity, 23 min(s). Timed: 70076 Therapeutic Exercises, 26 min(s), 2 unit(s). Signatures Electronically signed by : Jacki Perez PT; Nov 18 2019 11:32AM EST (Author) Normal [facility] EMERGENCY DEPARTMENTon 06-23 EMERGENCY DEPARTMENT [place] [id number] HEALTH INFORMATION MANAGEMENT EMERGENCY DEPARTMENT : [id number] Signed Patient: NAPOLEON WILLIS Acct:[id number] MRUN: [id number] : 1995 Sex: F Loc: ED ADM [...] - 2 tab PO DAILY #6 tablet 03/03/18 Fluticasone Propionate [Flonase] 2 sprays NS DAILY [...] mood - Skin Skin Color: Present: Normal, [place] Skin exam: Present: warm, dry - Expanded [...] Agreed With?: Yes - Dictation Amendments/Documentatio n: Sapiens Document Only Electronically Generated By: LETITIA SILVA PA-C Generated Date/Time: 05/23/17 1619 Electronically Signed By: LETITIA SILVA PA-C Signed Date/Time 05/23/17 1623 Co Signed Electronically By: Co Signed Date/Time: 05/29/17 0741 05/29/17 0741 CC: АННА [place] Normal [facility] Bilirubin Confirmationon Bilirubin (direct) Negative Normal Negative [facility] Comment on above: Performed By: #### I JOURNEYMAN MACHINIST ####[address] [address] Influenza A B (Rapid)on Influenza A antigen Negative Normal (Negative) [facility] Comment on above: Performed By: #### F LUAB ####[address] [address] Influenza B antigen Negative Normal (Negative) [facility] Comment on above: Performed By: #### F LUAB ####[address] [address] (Urine)on 05-25-19 18 HCG ( test) Ql (U) Negative Normal Negative [facility] Comment on above: Performed By: #### P REGU ####[address] [address] UA w/reflex cultureon 2017 Bilirubin Ql (U) 2+ Abnormal Negative [facility] Comment on above: Result Comment: ?Met abolites of etodolac or high concentration of urobilinogen may causefalse positive results. Correlate clinically.? Performed By: #### U ARC ####[address] [address] Blood Negative Normal Negative [facility] Comment on above: Performed By: #### U ARC ####[address] [address] Glucose mass conc NORMAL Normal Negative [facility] Comment on above: Performed By: #### U ARC ####[address] [address] Protein Negative Normal Negative [facility] Comment on above: Performed By: #### U ARC ####[address] [address] Urine, appearance CLEAR [facility] Comment on above: Performed By: #### U ARC ####[address] [address] Urine, color aby Normal Yellow [facility] Comment on above: Performed By: #### U ARC ####[address] [address] Urine, ketones presence Negative Normal Negative [facility] Comment on above: Performed By: #### U ARC ####[address] [address] Urine, nitrite presence Negative Normal Negative [facility] Comment on above: Performed By: #### U ARC ####[address] [address] Urine, pH 5 [pH] Normal [facility] Comment on above: Performed By: #### U ARC ####[address] [address] Urine, specific gravity 1.020 Normal 1.015-1.025 [facility] Comment on above: Performed By: #### U ARC ####[address] [address] Urine, urobilinogen NORMAL Normal Normal-1.0 [facility] Comment on above: Performed By: #### U ARC ####[address] [address] WBC (Leukocytes) Negative Normal Negative [facility] Comment on above: Performed By: #### U ARC ####[address] [address] Culture, urine Bacteria identified Cx Nom (U) Positive [facility] Work Phone: Gram stain for investigation of transfusion reaction Microscopic observation Gram stain Nom (Unsp spec) [facility] Work Phone: Thin prep Papanicolaou smear with manual screening Cytopathology procedure, preparation of smear, genital source Normal genital sean isolated [facility] Work Phone: Thin prep Papanicolaou smear with manual screening Normal genital sean isolated [facility] Work Phone: Thin prep Papanicolaou smear with manual screening [facility] Work Phone: Vital Signs Date Time Vital Sign Value Performing Clinician Facility 12-27-2024 09:[id number] Body height 149.86 cm [facility] Work Phone: [facility] 12-27-2024 09:10-0400 Body mass index (BMI) [Ratio] 29.2 kg/m2 [facility] Work Phone: [facility] 12-27-2024 09:10-0400 Body temperature 97.9 [degF] Collette [employer] PA-C Work Phone: [facility] 12-27-2024 09:10-0400 Body weight 65.77 kg Collette Conne[employer]ica PA-C Work Phone: [facility] 12-27-2024 09:10-0400 Diastolic blood pressure 80 mm[Hg] Collette Uniondale PA-C Work Phone: [facility] 12-27-2024 09:10-0400 Heart rate 74 /min Collette [employer] PA-C Work Phone: [facility] 12-27-2024 09:10-0400 Systolic blood pressure 116 mm[Hg] Collette Uniondale PA-C Work Phone: [facility] 12-20-2024 09:32-0400 Body height 149.86 cm Collette [employer] PA-C Work Phone: [facility] 12-20-2024 09:32-0400 Body mass index (BMI) [Ratio] 29.2 kg/m2 Collette Uniondale PA-C Work Phone: [facility] 12-20-2024 09:32-0400 Body temperature 98 [degF] Collette Uniondale PA-C Work Phone: [facility] 12-20-2024 09:32-0400 Body weight 65.77 kg Collette [employer] PA-C Work Phone: [facility] 12-20-2024 09:32-0400 Diastolic blood pressure 84 mm[Hg] Collette [employer]ica PA-C Work Phone: [facility] 12-20-2024 09:32-0400 Heart rate 80 /min Collette Conne[employer]ica PA-C Work Phone: [facility] 12-20-2024 09:32-0400 Systolic blood pressure 122 mm[Hg] [employer] PA-C Work Phone: [facility] 12-07-2024 10:22-0400 Body height 149.86 cm Hoda Ungerer INTERNATIONAL SALES REPRESENTATIVE-C Work Phone: [facility] 12-07-2024 10:22-0400 Body mass index (BMI) [Ratio] 28.8 kg/m2 Hoda Ungerer INTERNATIONAL SALES REPRESENTATIVE-C Work Phone: [facility] 12-07-2024 10:22-0400 Body weight 64.86 kg Hoda Ungerer INTERNATIONAL SALES REPRESENTATIVE-C Work Phone: [facility] 12-07-2024 10:22-0400 Diastolic blood pressure 70 mm[Hg] Hoda Ungerer INTERNATIONAL SALES REPRESENTATIVE-C Work Phone: [facility] 12-07-2024 10:22-0400 Heart rate 108 /min Hoda Ungerer INTERNATIONAL SALES REPRESENTATIVE-C Work Phone: [facility] 12-07-2024 10:22-0400 Systolic blood pressure 116 mm[Hg] Hoda Ungerer INTERNATIONAL SALES REPRESENTATIVE-C Work Phone: [facility] 12-05-2024 10:30-0400 Body height 149.86 cm Hoda Ungerer INTERNATIONAL SALES REPRESENTATIVE-C Work Phone: [facility] 12-05-2024 10:29-0400 Body mass index (BMI) [Ratio] 28.8 kg/m2 Hoda Ungerer INTERNATIONAL SALES REPRESENTATIVE-C Work Phone: [facility] 12-05-2024 10:29-0400 Body weight 64.86 kg Hoda Ungerer INTERNATIONAL SALES REPRESENTATIVE-C Work Phone: [facility] 12-05-2024 10:29-0400 Diastolic blood pressure 77 mm[Hg] Hoda Ungerer INTERNATIONAL SALES REPRESENTATIVE-C Work Phone: [facility] 12-05-2024 10:29-0400 Systolic blood pressure 117 mm[Hg] Hoda Ungerer INTERNATIONAL SALES REPRESENTATIVE-C Work Phone: [facility] 11-23-2024 09:50-0400 Diastolic blood pressure 82 mm[Hg] Renetta Lianger PA-C Work Phone: [facility] 11-23-2024 09:50-0400 Heart rate 72 /min Renetta Lianger PA-C Work Phone: [facility] 11-23-2024 09:50-0400 Respiratory rate 16 /min Renetta Lianger PA-C Work Phone: [facility] 11-23-2024 09:50-0400 SaO2% (BldA) [Mass fraction] 99 % Renetta Lianger PA-C Work Phone: [facility] 11-23-2024 09:50-0400 Systolic blood pressure 122 mm[Hg] Renetta Lianger PA-C Work Phone: [facility] 11-22-2024 14:40-0400 Body temperature 97.5 [degF] Hoda Ungerer INTERNATIONAL SALES REPRESENTATIVE-C Work Phone: [facility] 11-22-2024 14:40-0400 Diastolic blood pressure 66 mm[Hg] Hoda Ungerer INTERNATIONAL SALES REPRESENTATIVE-C Work Phone: [facility] 11-22-2024 14:40-0400 Heart rate 100 /min Hoda Ungerer INTERNATIONAL SALES REPRESENTATIVE-C Work Phone: [facility] 11-22-2024 14:40-0400 Respiratory rate 16 /min Hoda Ungerer INTERNATIONAL SALES REPRESENTATIVE-C Work Phone: [facility] 11-22-2024 14:40-0400 SaO2% (BldA) [Mass fraction] 100 % Hoda Ungerer INTERNATIONAL SALES REPRESENTATIVE-C Work Phone: [facility] 11-22-2024 14:40-0400 Systolic blood pressure 100 mm[Hg] Hoda Ungerer INTERNATIONAL SALES REPRESENTATIVE-C Work Phone: [facility] 11-22-2024 13:07-0400 Body height 149.86 cm Hoda Ungerer INTERNATIONAL SALES REPRESENTATIVE-C Work Phone: [facility] 11-22-2024 13:07-0400 Body mass index (BMI) [Ratio] 28.5 kg/m2 Hoda Ungerer INTERNATIONAL SALES REPRESENTATIVE-C Work Phone: [facility] 11-22-2024 13:07-0400 Body weight 63.95 kg Hoda Ungerer INTERNATIONAL SALES REPRESENTATIVE-C Work Phone: [facility] 11-09-2024 10:41-0400 Body height 149.86 cm Hoda Ungerer INTERNATIONAL SALES REPRESENTATIVE-C Work Phone: [facility] 11-09-2024 10:31-0400 Body mass index (BMI) [Ratio] 28.9 kg/m2 Hoda Ungerer INTERNATIONAL SALES REPRESENTATIVE-C Work Phone: [facility] 11-09-2024 10:31-0400 Body weight 64.97 kg Hoda Ungerer INTERNATIONAL SALES REPRESENTATIVE-C Work Phone: [facility] 11-09-2024 10:31-0400 Diastolic blood pressure 64 mm[Hg] Hoda Ungerer INTERNATIONAL SALES REPRESENTATIVE-C Work Phone: [facility] 11-09-2024 10:31-0400 Systolic blood pressure 110 mm[Hg] Hoda Ungerer INTERNATIONAL SALES REPRESENTATIVE-C Work Phone: [facility] 10-03-2024 14:54-0400 Body height 149.86 cm Hoda Ungerer INTERNATIONAL SALES REPRESENTATIVE-C Work Phone: [facility] 10-03-2024 14:46-0400 Body mass index (BMI) [Ratio] 29.2 kg/m2 Hoda Ungerer INTERNATIONAL SALES REPRESENTATIVE-C Work Phone: [facility] 10-03-2024 14:46-0400 Body weight 65.54 kg Hoda Ungerer INTERNATIONAL SALES REPRESENTATIVE-C Work Phone: [facility] 10-03-2024 14:46-0400 Diastolic blood pressure 74 mm[Hg] Hoda Ungerer INTERNATIONAL SALES REPRESENTATIVE-C Work Phone: [facility] 10-03-2024 14:46-0400 Systolic blood pressure 122 mm[Hg] Hoda Ungerer INTERNATIONAL SALES REPRESENTATIVE-C Work Phone: [facility] 09-12-2024 11:58-0400 Body height 149.86 cm Hoda Ungerer INTERNATIONAL SALES REPRESENTATIVE-C Work Phone: [facility] 09-12-2024 11:52-0400 Body mass index (BMI) [Ratio] 29.2 kg/m2 Hoda Ungerer INTERNATIONAL SALES REPRESENTATIVE-C Work Phone: [facility] 09-12-2024 11:52-0400 Body weight 65.77 kg Hoda Ungerer INTERNATIONAL SALES REPRESENTATIVE-C Work Phone: [facility] 09-12-2024 11:52-0400 Diastolic blood pressure 91 mm[Hg] Hoda Ungerer INTERNATIONAL SALES REPRESENTATIVE-C Work Phone: [facility] 09-12-2024 11:52-0400 Systolic blood pressure 126 mm[Hg] Hoda Ungerer INTERNATIONAL SALES REPRESENTATIVE-C Work Phone: [facility] 08-08-2024 10:49-0400 Body height 149.86 cm Hoda Ungerer INTERNATIONAL SALES REPRESENTATIVE-C Work Phone: [facility] 08-08-2024 10:47-0400 Body mass index (BMI) [Ratio] 29.7 kg/m2 Hoda Ungerer INTERNATIONAL SALES REPRESENTATIVE-C Work Phone: [facility] 08-08-2024 10:47-0400 Body weight 66.67 kg Hoda Ungerer INTERNATIONAL SALES REPRESENTATIVE-C Work Phone: [facility] 08-08-2024 10:47-0400 Diastolic blood pressure 82 mm[Hg] Hoda Ungerer INTERNATIONAL SALES REPRESENTATIVE-C Work Phone: [facility] 08-08-2024 10:47-0400 Systolic blood pressure 113 mm[Hg] Hoda Ungerer INTERNATIONAL SALES REPRESENTATIVE-C Work Phone: [facility] 07-28-2024 08:28-0400 Body mass index (BMI) [Ratio] 29.2 kg/m2 Hoda Ungerer INTERNATIONAL SALES REPRESENTATIVE-C Work Phone: [facility] 07-28-2024 08:28-0400 Body temperature 98.5 [degF] Hoda Ungerer INTERNATIONAL SALES REPRESENTATIVE-C Work Phone: [facility] 07-28-2024 08:28-0400 Body weight 65.77 kg Hoda Ungerer INTERNATIONAL SALES REPRESENTATIVE-C Work Phone: [facility] 07-28-2024 08:28-0400 Diastolic blood pressure 65 mm[Hg] Hoda Ungerer INTERNATIONAL SALES REPRESENTATIVE-C Work Phone: [facility] 07-28-2024 08:28-0400 Heart rate 104 /min Hoda Ungerer INTERNATIONAL SALES REPRESENTATIVE-C Work Phone: [facility] 07-28-2024 08:28-0400 SaO2% (BldA) [Mass fraction] 99 % Hoda Ungerer INTERNATIONAL SALES REPRESENTATIVE-C Work Phone: [facility] 07-28-2024 08:28-0400 Systolic blood pressure 99 mm[Hg] Hoda Ungerer INTERNATIONAL SALES REPRESENTATIVE-C Work Phone: [facility] 07-25-2024 11:55-0400 Body height 149.86 cm Hoda Ungerer INTERNATIONAL SALES REPRESENTATIVE-C Work Phone: [facility] 07-25-2024 11:54-0400 Body mass index (BMI) [Ratio] 29 kg/m2 Hoda Ungerer INTERNATIONAL SALES REPRESENTATIVE-C Work Phone: [facility] 07-25-2024 11:54-0400 Body weight 65.31 kg Hoda Ungerer INTERNATIONAL SALES REPRESENTATIVE-C Work Phone: [facility] 07-25-2024 11:54-0400 Diastolic blood pressure 74 mm[Hg] Hoda Ungerer INTERNATIONAL SALES REPRESENTATIVE-C Work Phone: [facility] 07-25-2024 11:54-0400 Systolic blood pressure 109 mm[Hg] Hoda Ungerer INTERNATIONAL SALES REPRESENTATIVE-C Work Phone: [facility] 06-29-2024 11:26-0400 Body mass index (BMI) [Ratio] 29.3 kg/m2 Hoda Ungerer INTERNATIONAL SALES REPRESENTATIVE-C Work Phone: [facility] 06-29-2024 11:26-0400 Body weight 65.88 kg Hoda Ungerer INTERNATIONAL SALES REPRESENTATIVE-C Work Phone: [facility] 06-29-2024 11:26-0400 Diastolic blood pressure 70 mm[Hg] Hoda Ungerer INTERNATIONAL SALES REPRESENTATIVE-C Work Phone: [facility] 06-29-2024 11:26-0400 Systolic blood pressure 120 mm[Hg] Hoda Ungerer INTERNATIONAL SALES REPRESENTATIVE-C Work Phone: [facility] 06-23-2024 13:55-0400 Body height 149.86 cm INTERNATIONAL SALES REPRESENTATIVE. Hoda Ungerer INTERNATIONAL SALES REPRESENTATIVE-C Work Phone: [facility] 06-23-2024 13:55-0400 Body mass index (BMI) [Ratio] 28.8 kg/m2 INTERNATIONAL SALES REPRESENTATIVE. Hoda Ungerer INTERNATIONAL SALES REPRESENTATIVE-C Work Phone: [facility] 06-23-2024 13:55-0400 Body weight 64.86 kg INTERNATIONAL SALES REPRESENTATIVE. Hoda Ungerer INTERNATIONAL SALES REPRESENTATIVE-C Work Phone: [facility] 06-23-2024 13:55-0400 Diastolic blood pressure 79 mm[Hg] INTERNATIONAL SALES REPRESENTATIVE. Hoda Ungerer INTERNATIONAL SALES REPRESENTATIVE-C Work Phone: [facility] 06-23-2024 13:55-0400 Systolic blood pressure 120 mm[Hg] INTERNATIONAL SALES REPRESENTATIVE. Hoda Ungerer INTERNATIONAL SALES REPRESENTATIVE-C Work Phone: [facility] 05-18-2024 08:19-0500 Body height 149.86 cm INTERNATIONAL SALES REPRESENTATIVE. Hoda Ungerer INTERNATIONAL SALES REPRESENTATIVE-C Work Phone: [facility] 05-18-2024 08:17-0500 Body mass index (BMI) [Ratio] 28 kg/m2 INTERNATIONAL SALES REPRESENTATIVE. Hoda Valdezerer INTERNATIONAL SALES REPRESENTATIVE-C Work Phone: [facility] 05-18-2024 08:17-0500 Body weight 63.04 kg INTERNATIONAL SALES REPRESENTATIVE. Hoda Ungerer INTERNATIONAL SALES REPRESENTATIVE-C Work Phone: [facility] 05-18-2024 08:17-0500 Diastolic blood pressure 80 mm[Hg] INTERNATIONAL SALES REPRESENTATIVE. Hoda Valdezerer INTERNATIONAL SALES REPRESENTATIVE-C Work Phone: [facility] 05-18-2024 08:17-0500 Systolic blood pressure 119 mm[Hg] INTERNATIONAL SALES REPRESENTATIVE. Hoda Ungerer INTERNATIONAL SALES REPRESENTATIVE-C Work Phone: [facility] 05-02-2024 08:35-0500 Body mass index (BMI) [Ratio] 27.7 kg/m2 INTERNATIONAL SALES REPRESENTATIVE. Hoda Valdezerer INTERNATIONAL SALES REPRESENTATIVE-C Work Phone: [facility] 05-02-2024 08:35-0500 Body weight 62.31 kg INTERNATIONAL SALES REPRESENTATIVE. Hoda Valdezerer INTERNATIONAL SALES REPRESENTATIVE-C Work Phone: [facility] 05-02-2024 08:35-0500 Diastolic blood pressure 88 mm[Hg] INTERNATIONAL SALES REPRESENTATIVE. Hoda Ungerer INTERNATIONAL SALES REPRESENTATIVE-C Work Phone: [facility] 05-02-2024 08:35-0500 Systolic blood pressure 124 mm[Hg] INTERNATIONAL SALES REPRESENTATIVE. Hoda Ungerer INTERNATIONAL SALES REPRESENTATIVE-C Work Phone: [facility] 04-27-2024 08:27-0500 Body mass index (BMI) [Ratio] 27.19 kg/m2 Renetta Dee PA-C Work Phone: [facility] 04-27-2024 08:27-0500 Body weight 61.05 kg Renetta Dee PA-C Work Phone: [facility] 04-27-2024 08:27-0500 Diastolic blood pressure 86 mm[Hg] Renetta Dee PA-C Work Phone: [facility] 04-27-2024 08:27-0500 Heart rate 104 /min Renetta Dee PA-C Work Phone: [facility] 04-27-2024 08:27-0500 Respiratory rate 18 /min Renetta Dee PA-C Work Phone: [facility] 04-27-2024 08:27-0500 SaO2% (BldA) [Mass fraction] 97 % Renetta Dee PA-C Work Phone: [facility] 04-27-2024 08:27-0500 Systolic blood pressure 119 mm[Hg] Renetta Dee PA-C Work Phone: [facility] 04-21-2024 08:20-0500 Body mass index (BMI) [Ratio] 27.8 kg/m2 INTERNATIONAL SALES REPRESENTATIVE. Hoda Ungerer INTERNATIONAL SALES REPRESENTATIVE-C Work Phone: [facility] 04-21-2024 08:20-0500 Body temperature 99.6 [degF] INTERNATIONAL SALES REPRESENTATIVE. Hoda Ungerer INTERNATIONAL SALES REPRESENTATIVE-C Work Phone: [facility] 04-21-2024 08:20-0500 Body weight 62.59 kg INTERNATIONAL SALES REPRESENTATIVE. Hoda Ungerer INTERNATIONAL SALES REPRESENTATIVE-C Work Phone: [facility] 04-21-2024 08:20-0500 Diastolic blood pressure 70 mm[Hg] INTERNATIONAL SALES REPRESENTATIVE. Hoda Ungerer INTERNATIONAL SALES REPRESENTATIVE-C Work Phone: [facility] 04-21-2024 08:20-0500 Heart rate 96 /min INTERNATIONAL SALES REPRESENTATIVE. Hoda Ungerer INTERNATIONAL SALES REPRESENTATIVE-C Work Phone: [facility] 04-21-2024 08:20-0500 Respiratory rate 16 /min INTERNATIONAL SALES REPRESENTATIVE. Hoda Ungerer INTERNATIONAL SALES REPRESENTATIVE-C Work Phone: [facility] 04-21-2024 08:20-0500 SaO2% (BldA) [Mass fraction] 99 % INTERNATIONAL SALES REPRESENTATIVE. Hoda Ungerer INTERNATIONAL SALES REPRESENTATIVE-C Work Phone: [facility] 04-21-2024 08:20-0500 Systolic blood pressure 116 mm[Hg] INTERNATIONAL SALES REPRESENTATIVE. Hoda Valdezerer INTERNATIONAL SALES REPRESENTATIVE-C Work Phone: [facility] 04-20-2024 08:36-0500 Body mass index (BMI) [Ratio] 27.8 kg/m2 INTERNATIONAL SALES REPRESENTATIVE. Hoda Valdezerer INTERNATIONAL SALES REPRESENTATIVE-C Work Phone: [facility] 04-20-2024 08:36-0500 Body weight 62.59 kg INTERNATIONAL SALES REPRESENTATIVE. Hoda Valdezerer INTERNATIONAL SALES REPRESENTATIVE-C Work Phone: [facility] 04-20-2024 08:36-0500 Diastolic blood pressure 79 mm[Hg] INTERNATIONAL SALES REPRESENTATIVE. Hoda Valdezerer INTERNATIONAL SALES REPRESENTATIVE-C Work Phone: [facility] 04-20-2024 08:36-0500 Systolic blood pressure 115 mm[Hg] INTERNATIONAL SALES REPRESENTATIVE. Hodakeira Valdezerer INTERNATIONAL SALES REPRESENTATIVE-C Work Phone: [facility] 02-29-2024 08:20-0500 Body mass index (BMI) [Ratio] 27.4 kg/m2 INTERNATIONAL SALES REPRESENTATIVE. Hoda Valdezerer INTERNATIONAL SALES REPRESENTATIVE-C Work Phone: [facility] 02-29-2024 08:20-0500 Body temperature 98.6 [degF] INTERNATIONAL SALES REPRESENTATIVE. Hoda Ungerer INTERNATIONAL SALES REPRESENTATIVE-C Work Phone: [facility] 02-29-2024 08:20-0500 Body weight 61.68 kg INTERNATIONAL SALES REPRESENTATIVE. Hoda Ungerer INTERNATIONAL SALES REPRESENTATIVE-C Work Phone: [facility] 02-29-2024 08:20-0500 Diastolic blood pressure 82 mm[Hg] INTERNATIONAL SALES REPRESENTATIVE. Hoda Valdezerer INTERNATIONAL SALES REPRESENTATIVE-C Work Phone: [facility] 02-29-2024 08:20-0500 Heart rate 92 /min INTERNATIONAL SALES REPRESENTATIVE. Hoda Valdezerer INTERNATIONAL SALES REPRESENTATIVE-C Work Phone: [facility] 02-29-2024 08:20-0500 Respiratory rate 15 /min INTERNATIONAL SALES REPRESENTATIVE. Hoda Ungerer INTERNATIONAL SALES REPRESENTATIVE-C Work Phone: [facility] 02-29-2024 08:20-0500 SaO2% (BldA) [Mass fraction] 99 % INTERNATIONAL SALES REPRESENTATIVE. Hoda Ungerer INTERNATIONAL SALES REPRESENTATIVE-C Work Phone: [facility] 02-29-2024 08:20-0500 Systolic blood pressure 122 mm[Hg] INTERNATIONAL SALES REPRESENTATIVE. Hoda Ungerer INTERNATIONAL SALES REPRESENTATIVE-C Work Phone: [facility] 02-10-2024 09:24-0500 Body mass index (BMI) [Ratio] 26.9 kg/m2 INTERNATIONAL SALES REPRESENTATIVE. Hoda Ungerer INTERNATIONAL SALES REPRESENTATIVE-C Work Phone: [facility] 02-10-2024 09:24-0500 Body weight 60.55 kg INTERNATIONAL SALES REPRESENTATIVE. Hoda Ungerer INTERNATIONAL SALES REPRESENTATIVE-C Work Phone: [facility] 02-10-2024 09:24-0500 Diastolic blood pressure 77 mm[Hg] INTERNATIONAL SALES REPRESENTATIVE. Hoda Ungerer INTERNATIONAL SALES REPRESENTATIVE-C Work Phone: [facility] 02-10-2024 09:24-0500 Systolic blood pressure 118 mm[Hg] INTERNATIONAL SALES REPRESENTATIVE. Hoda Ungerer INTERNATIONAL SALES REPRESENTATIVE-C Work Phone: [facility] 07-17-2023 07:32-0400 Body temperature 97.5 [degF] INTERNATIONAL SALES REPRESENTATIVE. Hoda Ungerer Work Phone: [facility] 07-17-2023 07:32-0400 Diastolic blood pressure 69 mm[Hg] INTERNATIONAL SALES REPRESENTATIVE. Hoda Ungerer Work Phone: [facility] 07-17-2023 07:32-0400 Heart rate 111 /min INTERNATIONAL SALES REPRESENTATIVE. Hoda Ungerer Work Phone: [facility] 07-17-2023 07:32-0400 SaO2% (BldA) [Mass fraction] 97 % INTERNATIONAL SALES REPRESENTATIVE. Hoda Ungerer Work Phone: [facility] 07-17-2023 07:32-0400 Systolic blood pressure 120 mm[Hg] INTERNATIONAL SALES REPRESENTATIVE. Hoda Ungerer Work Phone: [facility] 07-17-2023 07:27-0400 Body height 149.86 cm INTERNATIONAL SALES REPRESENTATIVE. Hoda Ungerer Work Phone: [facility] 07-17-2023 07:27-0400 Body mass index (BMI) [Ratio] 32.9 kg/m2 INTERNATIONAL SALES REPRESENTATIVE. Hoda Ungerer Work Phone: [facility] 07-17-2023 07:27-0400 Body weight 74.04 kg INTERNATIONAL SALES REPRESENTATIVE. Hoda Ungerer Work Phone: [facility] 07-17-2023 07:27-0400 Respiratory rate 17 /min INTERNATIONAL SALES REPRESENTATIVE. Hoda Ungerer Work Phone: [facility] 07-16-2023 11:49-0400 Body mass index (BMI) [Ratio] 33.4 kg/m2 INTERNATIONAL SALES REPRESENTATIVE. Hoda Ungerer Work Phone: [facility] 07-16-2023 11:49-0400 Body weight 75.01 kg INTERNATIONAL SALES REPRESENTATIVE. Hoda Ungerer Work Phone: [facility] 07-16-2023 11:49-0400 Diastolic blood pressure 73 mm[Hg] INTERNATIONAL SALES REPRESENTATIVE. Hoda Ungerer Work Phone: [facility] 07-16-2023 11:49-0400 Systolic blood pressure 123 mm[Hg] INTERNATIONAL SALES REPRESENTATIVE. Hoda Ungerer Work Phone: [facility] 07-09-2023 09:25-0400 Body mass index (BMI) [Ratio] 32.8 kg/m2 INTERNATIONAL SALES REPRESENTATIVE. Hoda Ungerer Work Phone: [facility] 07-09-2023 09:25-0400 Body weight 73.7 kg INTERNATIONAL SALES REPRESENTATIVE. Hoda Ungerer Work Phone: [facility] 07-09-2023 09:25-0400 Diastolic blood pressure 77 mm[Hg] INTERNATIONAL SALES REPRESENTATIVE. Hoda Ungerer Work Phone: [facility] 07-09-2023 09:25-0400 Systolic blood pressure 115 mm[Hg] INTERNATIONAL SALES REPRESENTATIVE. Hoda Ungerer Work Phone: [facility] 07-03-2023 08:53-0400 Body mass index (BMI) [Ratio] 32.5 kg/m2 INTERNATIONAL SALES REPRESENTATIVE. Hoda Ungerer Work Phone: [facility] 07-03-2023 08:53-0400 Body weight 73.08 kg INTERNATIONAL SALES REPRESENTATIVE. Hoda Ungerer Work Phone: [facility] 07-03-2023 08:53-0400 Diastolic blood pressure 72 mm[Hg] INTERNATIONAL SALES REPRESENTATIVE. Hoda Valdezerer Work Phone: [facility] 07-03-2023 08:53-0400 Systolic blood pressure 104 mm[Hg] INTERNATIONAL SALES REPRESENTATIVE. Hoda Valdezerer Work Phone: [facility] 06-15-2023 14:59-0400 Diastolic blood pressure 62 mm[Hg] Dr. Beryl Mcmillan Work Phone: [facility] 06-15-2023 14:59-0400 Heart rate 98 /min Dr. Beryl Mcmillan Work Phone: [facility] 06-15-2023 14:59-0400 Systolic blood pressure 112 mm[Hg] Dr. Beryl Mcmillan Work Phone: [facility] 06-15-2023 13:45-0400 Body height 149.[address] Beryl Mcmillan Work Phone: [facility] 06-15-2023 13:45-0400 Body mass index (BMI) [Ratio] 31.3 kg/m2 Dr. Beryl Mcmillan Work Phone: [facility] 06-15-2023 13:45-0400 Body temperature 97.9 [degF] Dr. Beryl Mcmillan Work Phone: [facility] 06-15-2023 13:45-0400 Body weight 70.[address] Beryl Mcmillan Work Phone: [facility] 06-15-2023 13:45-0400 Respiratory rate 16 /min Dr. Beryl Mcmillan Work Phone: [facility] 06-15-2023 13:45-0400 SaO2% (BldA) [Mass fraction] 97 % Dr. Beryl Mcmillan Work Phone: [facility] 06-03-2023 08:36-0400 Body height 149.[address] Beryl Mcmillan Work Phone: [facility] 06-03-2023 08:35-0400 Body mass index (BMI) [Ratio] 31.3 kg/m2 Dr. Beryl Mcmillan Work Phone: [facility] 06-03-2023 08:35-0400 Body weight 70.[address] Beryl Mcmillan Work Phone: [facility] 06-03-2023 08:35-0400 Diastolic blood pressure 72 mm[Hg] Dr. Beryl Mcmillan Work Phone: [facility] 06-03-2023 08:35-0400 Systolic blood pressure 121 mm[Hg] Dr. Beryl Mcmillan Work Phone: [facility] 05-28-2023 09:17-0500 Body temperature 98.2 [degF] Dr. Beryl Mcmillan Work Phone: [facility] 05-28-2023 09:17-0500 Diastolic blood pressure 73 mm[Hg] Dr. Beryl Mcmillan Work Phone: [facility] 05-28-2023 09:17-0500 Heart rate 107 /min Dr. Beryl Mcmillan Work Phone: [facility] 05-28-2023 09:17-0500 Respiratory rate 16 /min Dr. Beryl Mcmillan Work Phone: [facility] 05-28-2023 09:17-0500 Systolic blood pressure 119 mm[Hg] Dr. Beryl Mcmillan Work Phone: [facility] 05-28-2023 09:10-0500 Body height 149.[address] Beryl Mcmillan Work Phone: [facility] 05-28-2023 09:10-0500 Body mass index (BMI) [Ratio] 31.1 kg/m2 Dr. Beryl Mcmillan Work Phone: [facility] 05-28-2023 09:10-0500 Body weight 70.[address] Beryl Mcmillan Work Phone: [facility] 05-26-2023 13:08-0500 Body height 149.[address] Beryl Mcmillan Work Phone: [facility] 05-26-2023 13:05-0500 Body mass index (BMI) [Ratio] 31.1 kg/m2 Dr. Beryl Mcmillan Work Phone: [facility] 05-26-2023 13:05-0500 Body weight 69.[address] Beryl Mcmillan Work Phone: [facility] 05-26-2023 13:05-0500 Diastolic blood pressure 75 mm[Hg] Dr. Beryl Mcmillan Work Phone: [facility] 05-26-2023 13:05-0500 Systolic blood pressure 107 mm[Hg] Dr. Beryl Mcmillan Work Phone: [facility] 05-22-2023 09:45-0500 Body mass index (BMI) [Ratio] 30.7 kg/m2 Dr. Beryl Mcmillan Work Phone: [facility] 05-22-2023 09:45-0500 Body weight 69.[address] Beryl Mcmillan Work Phone: [facility] 05-22-2023 09:45-0500 Diastolic blood pressure 72 mm[Hg] Dr. Beryl Mcmillan Work Phone: [facility] 05-22-2023 09:45-0500 Systolic blood pressure 119 mm[Hg] Dr. Beryl Mcmillan Work Phone: [facility] 05-05-2023 08:50-0500 Body mass index (BMI) [Ratio] 29.9 kg/m2 Dr. Beryl Mcmillan Work Phone: [facility] 05-05-2023 08:50-0500 Body weight 67.[address] Beryl Mcmillan Work Phone: [facility] 05-05-2023 08:50-0500 Diastolic blood pressure 68 mm[Hg] Dr. Beryl Mcmillan Work Phone: [facility] 05-05-2023 08:50-0500 Systolic blood pressure 112 mm[Hg] Dr. Beryl Mcmillan Work Phone: [facility] 04-07-2023 08:29-0500 Body mass index (BMI) [Ratio] 28.1 kg/m2 Dr. Beryl Mcmillan Work Phone: [facility] 04-07-2023 08:29-0500 Body weight 63.[address] Beryl Mcmillan Work Phone: [facility] 04-07-2023 08:29-0500 Diastolic blood pressure 72 mm[Hg] Dr. Beryl Mcmillan Work Phone: [facility] 04-07-2023 08:29-0500 Systolic blood pressure 110 mm[Hg] Dr. Beryl Mcmillan Work Phone: [facility] 04-02-2023 13:40-0500 Body mass index (BMI) [Ratio] 29.2 kg/m2 Dr. Beryl Mcmilaln Work Phone: [facility] 04-02-2023 13:40-0500 Body weight 65.[address] Beryl Mcmillan Work Phone: [facility] 04-02-2023 13:40-0500 Diastolic blood pressure 76 mm[Hg] Dr. Beryl Mcmillan Work Phone: [facility] 04-02-2023 13:40-0500 Systolic blood pressure 110 mm[Hg] Dr. Beryl Mcmillan Work Phone: [facility] 03-09-2023 09:55-0500 Body height 149.[address] Beryl Mcmillan Work Phone: [facility] 03-09-2023 09:49-0500 Body mass index (BMI) [Ratio] 27.2 kg/m2 Dr. Beryl Mcmillan Work Phone: [facility] 03-09-2023 09:49-0500 Body weight 61.[address] Beryl Mcmillan Work Phone: [facility] 03-09-2023 09:49-0500 Diastolic blood pressure 80 mm[Hg] Dr. Beryl Mcmillan Work Phone: [facility] 03-09-2023 09:49-0500 Systolic blood pressure 110 mm[Hg] Dr. Beryl Mcmillan Work Phone: [facility] 02-23-2023 12:44-0500 Body temperature 97.5 [degF] Dr. Beryl Mcmillan Work Phone: [facility] 02-23-2023 12:44-0500 Diastolic blood pressure 54 mm[Hg] Dr. Beryl Mcmillan Work Phone: [facility] 02-23-2023 12:44-0500 Heart rate 92 /min Dr. Beryl Mcmillan Work Phone: [facility] 02-23-2023 12:44-0500 Respiratory rate 16 /min Dr. Beryl Mcmillan Work Phone: [facility] 02-23-2023 12:44-0500 SaO2% (BldA) [Mass fraction] 100 % Dr. Beryl Mcmillan Work Phone: [facility] 02-23-2023 12:44-0500 Systolic blood pressure 108 mm[Hg] Dr. Beryl Mcmillan Work Phone: [facility] 02-23-2023 11:30-0500 Body height 149.[address] Beryl Mcmillan Work Phone: [facility] 02-23-2023 11:30-0500 Body mass index (BMI) [Ratio] 26.4 kg/m2 Dr. Beryl Mcmillan Work Phone: [facility] 02-23-2023 11:30-0500 Body weight 59.[address] Beryl Mcmillan Work Phone: [facility] 02-17-2023 10:52-0500 Body height 149.[address] Beryl Mcmillan Work Phone: [facility] 02-17-2023 10:44-0500 Body mass index (BMI) [Ratio] 26.3 kg/m2 Dr. Beryl Mcmillan Work Phone: [facility] 02-17-2023 10:44-0500 Body weight 59.[address] Beryl Mcmillan Work Phone: [facility] 02-17-2023 10:44-0500 Diastolic blood pressure 64 mm[Hg] Dr. Beryl Mcmillan Work Phone: [facility] 02-17-2023 10:44-0500 Systolic blood pressure 108 mm[Hg] Dr. Beryl Mcmillan Work Phone: [facility] 01-27-2023 09:27-0500 Body mass index (BMI) [Ratio] 26.05 kg/m2 Janet Garcia MD Work Phone: [facility] 01-27-2023 09:27-0500 Body weight 58.51 kg Janet Garcia MD Work Phone: [facility] 01-27-2023 09:27-0500 Diastolic blood pressure 70 mm[Hg] Janet Garcia MD Work Phone: [facility] 01-27-2023 09:27-0500 Heart rate 89 /min Janet Garcia MD Work Phone: [facility] 01-27-2023 09:27-0500 Systolic blood pressure 113 mm[Hg] Janet Garcia MD Work Phone: [facility] 01-13-2023 14:03-0400 Body mass index (BMI) [Ratio] 26.3 kg/m2 Dr. Beryl Mcmillan Work Phone: [facility] 01-13-2023 14:03-0400 Body weight 59.[address] Beryl Mcmillan Work Phone: [facility] 01-13-2023 14:03-0400 Diastolic blood pressure 64 mm[Hg] Dr. Beryl Mcmillan Work Phone: [facility] 01-13-2023 14:03-0400 Systolic blood pressure 110 mm[Hg] Dr. Beryl Mcmillan Work Phone: [facility] 07-12-2022 09:02-0400 Body weight 60.33 kg Hoda Lewis PLUMBER GASFITTER.HARRY Work Phone: [facility] 07-12-2022 09:02-0400 Diastolic blood pressure 70 mm[Hg] Hoda Lewis PLUMBER GASFITTER.SKIDDER Work Phone: [facility] 07-12-2022 09:02-0400 Heart rate 97 /min Hoda Lewis PLUMBER GASFITTER.SKIDDER Work Phone: [facility] 07-12-2022 09:02-0400 Respiratory rate 16 /min Hoda Lewis PLUMBER GASFITTER.SKIDDER Work Phone: [facility] 07-12-2022 09:02-0400 SaO2% (BldA) [Mass fraction] 98 % Hoda Lewis PLUMBER GASFITTER.SKIDDER Work Phone: [facility] 07-12-2022 09:02-0400 Systolic blood pressure 110 mm[Hg] Hoda Lewis PLUMBER GASFITTER.SKIDDER Work Phone: [facility] 04-04-2022 08:28-0500 Body temperature 97.4 [degF] Dr. Beryl Mcmillan Work Phone: [facility] Work Phone: 04-04-2022 08:28-0500 Diastolic blood pressure 77 mm[Hg] Dr. Beryl Mcmillan Work Phone: [facility] Work Phone: 04-04-2022 08:28-0500 Heart rate 86 /min Dr. Beryl Mcmillan Work Phone: [facility] Work Phone: 04-04-2022 08:28-0500 Respiratory rate 16 /min Dr. Beryl Mcmillan Work Phone: [facility] Work Phone: 04-04-2022 08:28-0500 SaO2% (BldA) [Mass fraction] 98 % Dr. Beryl Mcmillan Work Phone: [facility] Work Phone: 04-04-2022 08:28-0500 Systolic blood pressure 133 mm[Hg] Dr. Beryl Mcmillan Work Phone: [facility] Work Phone: 04-04-2022 00:11-0500 Body height 149.[address] Beryl Mcmillan Work Phone: [facility] Work Phone: 04-04-2022 00:11-0500 Body mass index (BMI) [Ratio] 22.8 kg/m2 Dr. Beryl Mcmillan Work Phone: [facility] Work Phone: 04-04-2022 00:11-0500 Body weight 51.[address] Beryl Mcmillan Work Phone: [facility] Work Phone: 04-03-2022 23:15-0500 Diastolic blood pressure 32 mm[Hg] Dr. Beryl Mcmillan Work Phone: [facility] Work Phone: 04-03-2022 23:15-0500 Heart rate 97 /min Dr. Beryl Mcmillan Work Phone: [facility] Work Phone: 04-03-2022 23:15-0500 Respiratory rate 17 /min Dr. Beryl Mcmillan Work Phone: [facility] Work Phone: 04-03-2022 23:15-0500 SaO2% (BldA) [Mass fraction] 96 % Dr. Beryl Mcmillan Work Phone: [facility] Work Phone: 04-03-2022 23:15-0500 Systolic blood pressure 121 mm[Hg] Dr. Beryl Mcmillan Work Phone: [facility] Work Phone: 04-03-2022 22:44-0500 Body temperature 97.8 [degF] Dr. Beryl Mcmillan Work Phone: [facility] Work Phone: 04-03-2022 16:38-0500 Body height 124.[address] Beryl Mcmillan Work Phone: [facility] Work Phone: 04-03-2022 16:38-0500 Body mass index (BMI) [Ratio] 33.3 kg/m2 Dr. Beryl Mcmillan Work Phone: [facility] Work Phone: 04-03-2022 16:38-0500 Body weight 51.[address] Beryl Mcmillan Work Phone: [facility] Work Phone: 03-03-2022 19:13-0500 Blood Pressure Cuff Size TERRENCE CH MD [facility] 03-03-2022 19:13-0500 Blood Pressure Location TERRENCE CH MD [facility] 03-03-2022 19:13-0500 Blood Pressure Method TERRENCE CH MD [facility] 03-03-2022 19:13-0500 Body temperature 98.06 [degF] TERRENCE CH MD [facility] 03-03-2022 19:13-0500 Diastolic Blood Pressure Non-Invasive 87 1 TERRENCE CH MD [facility] 03-03-2022 19:13-0500 Heart rate 88 /min TERRENCE CH MD [facility] 03-03-2022 19:13-0500 Reason For Taking VItal Signs TERRENCE CH MD [facility] 03-03-2022 19:13-0500 Respiratory rate 18 /min TERRENCE CH MD [facility] 03-03-2022 19:13-0500 Systolic Blood Pressure Non-Invasive 118 1 TERRENCE CH MD [address] [place] [address] 03-03-2022 16:39-0500 Blood Pressure Location TERRENCE CH MD [facility] 03-03-2022 16:39-0500 Blood Pressure Method TERRENCE CH MD [address] [place] [address] 03-03-2022 16:39-0500 Body temperature 97.34 [degF] TERRENCE CH MD [address] [place] [address] 03-03-2022 16:39-0500 Diastolic Blood Pressure Non-Invasive 86 1 TERRENCE CH MD [address] [place] [address] 03-03-2022 16:39-0500 Heart rate 92 /min TERRENCE CH MD [address] [place] [address] 03-03-2022 16:39-0500 Mean blood pressure 95 mm[Hg] TERRENCE CH MD [address] [place] [address] 03-03-2022 16:39-0500 Reason For Taking VItal Signs TERRENCE CH MD [address] [place] [address] 03-03-2022 16:39-0500 Respiratory rate 18 /min TERRENCE CH MD [address] [place] [address] 03-03-2022 16:39-0500 Systolic Blood Pressure Non-Invasive 114 1 TERRENCE CH MD [address] [place] [address] 03-03-2022 11:44-0500 Blood Pressure Location TERRENCE CH MD [address] [place] [address] 03-03-2022 11:44-0500 Blood Pressure Method TERRENCE CH MD [address] [place] [address] 03-03-2022 11:44-0500 Body temperature 97.52 [degF] TERRENCE CH MD [address] [place] [address] 03-03-2022 11:44-0500 Diastolic Blood Pressure Non-Invasive 77 1 TERRENCE CH MD [facility] 03-03-2022 11:44-0500 Heart rate 86 /min TERRENCE CH MD [facility] 03-03-2022 11:44-0500 Mean blood pressure 88 mm[Hg] TERRENCE CH MD [address] [place] [address] 03-03-2022 11:44-0500 Reason For Taking VItal Signs TERRENCE CH MD [address] [place] [address] 03-03-2022 11:44-0500 Respiratory rate 18 /min TERRENCE CH MD [facility] 03-03-2022 11:44-0500 Systolic Blood Pressure Non-Invasive 109 1 TERRENCE CH MD [address] [place] [address] 03-03-2022 08:57-0500 Heart rate 89 /min TERRENCE CH MD [address] [place] [address] 03-03-2022 04:29-0500 Heart rate 82 /min TERRENCE CH MD [facility] 03-03-2022 00:15-0500 Heart rate 84 /min TERRENCE CH MD [address] [place] [address] 03-02-2022 19:32-0500 Heart rate 98 /min TERRENCE CH MD [address] [place] [address] 03-02-2022 13:30-0500 Heart rate 111 /min TERRENCE CH MD [address] [place] [address] 03-02-2022 08:49-0500 Heart rate 118 /min TERRENCE CH MD [address] [place] [address] 03-02-2022 04:30-0500 Body height 149.9 cm TERRENCE CH MD [address] [place], [place] [id number] 04:30-0500 Body weight 53.8 kg TERRENCE CH MD [facility] 03-02-2022 04:30-0500 Body weight 23.94 kg/m2 TERRENCE CH MD [facility] 02-27-2022 16:14-0500 Body height 124.[address] Beryl Mcmillan Work Phone: [facility] Work Phone: 02-27-2022 16:13-0500 Body mass index (BMI) [Ratio] 34 kg/m2 Dr. Beryl Mcmillan Work Phone: [facility] Work Phone: 02-27-2022 16:13-0500 Body weight 52.[address] Beryl Mcmillan Work Phone: [facility] Work Phone: 02-27-2022 16:13-0500 Diastolic blood pressure 74 mm[Hg] Dr. Beryl Mcmillan Work Phone: [facility] Work Phone: 02-27-2022 16:13-0500 Systolic blood pressure 114 mm[Hg] Dr. Beryl Mcmillan Work Phone: [facility] Work Phone: 12-31-2021 13:31-0400 Body mass index (BMI) [Ratio] 33.5 kg/m2 Dr. Beryl Mcmillan Work Phone: [facility] Work Phone: 12-31-2021 13:31-0400 Body weight 51.[address] Beryl Mcmillan Work Phone: [facility] Work Phone: 12-31-2021 13:31-0400 Diastolic blood pressure 72 mm[Hg] Dr. Beryl Mcmillan Work Phone: [facility] Work Phone: 12-31-2021 13:31-0400 Systolic blood pressure 110 mm[Hg] Dr. Beryl Mcmillan Work Phone: [facility] Work Phone: 12-12-2021 14:37-0400 Body height 149.[address] Beryl Mcmillan Work Phone: [facility] Work Phone: 12-12-2021 14:37-0400 Body mass index (BMI) [Ratio] 23.8 kg/m2 Dr. Beryl Mcmillan Work Phone: [facility] Work Phone: 12-12-2021 14:37-0400 Body weight 53.[address] Beryl Mcmillan Work Phone: [facility] Work Phone: 12-12-2021 14:37-0400 Diastolic blood pressure 80 mm[Hg] Dr. Beryl Mcmillan Work Phone: [facility] Work Phone: 12-12-2021 14:37-0400 Systolic blood pressure 110 mm[Hg] Dr. Beryl Mcmillan Work Phone: [facility] Work Phone: 10-09-2021 09:11-0400 Body mass index (BMI) [Ratio] 23.1 kg/m2 Dr. Beryl Mcmillan Work Phone: [facility] Work Phone: 10-09-2021 09:11-0400 Body weight 51.[address] Beryl Mcmillan Work Phone: [facility] Work Phone: 10-09-2021 09:11-0400 Diastolic blood pressure 84 mm[Hg] Dr. Beryl Mcmillan Work Phone: [facility] Work Phone: 10-09-2021 09:11-0400 Systolic blood pressure 110 mm[Hg] Dr. Beryl Mcmillan Work Phone: [facility] Work Phone: 07-03-2021 09:24-0400 Body height 149.[address] Beryl Mcmillan Work Phone: [facility] Work Phone: 07-03-2021 09:24-0400 Body mass index (BMI) [Ratio] 24 kg/m2 Dr. Beryl Mcmillan Work Phone: [facility] Work Phone: 07-03-2021 09:24-0400 Body weight 54.[address] Beryl Mcmillan Work Phone: [facility] Work Phone: 07-03-2021 09:24-0400 Diastolic blood pressure 84 mm[Hg] Dr. Beryl Mcmillan Work Phone: [facility] Work Phone: 07-03-2021 09:24-0400 Systolic blood pressure 110 mm[Hg] Dr. Beryl Mcmillan Work Phone: [facility] Work Phone: 04-24-2021 09:07-0500 Body mass index (BMI) [Ratio] 25.2 kg/m2 Dr. Beryl Mcmillan Work Phone: [facility] Work Phone: 04-24-2021 09:07-0500 Body temperature 99 [degF] Dr. Beryl Mcmillan Work Phone: [facility] Work Phone: 04-24-2021 09:07-0500 Body weight 56.[address] Beryl Mcmillan Work Phone: [facility] Work Phone: 04-22-2021 09:29-0500 Diastolic blood pressure 74 mm[Hg] Dr. Beryl Mcmillan Work Phone: [facility] Work Phone: 04-22-2021 09:29-0500 Heart rate 96 /min Dr. Beryl Mcmillan Work Phone: [facility] Work Phone: 04-22-2021 09:29-0500 SaO2% (BldA) [Mass fraction] 99 % Dr. Beryl Mcmillan Work Phone: [facility] Work Phone: 04-22-2021 09:29-0500 Systolic blood pressure 122 mm[Hg] Dr. Beryl Mcmillan Work Phone: [facility] Work Phone: 04-08-2021 12:02-0500 Body mass index (BMI) [Ratio] 25.7 kg/m2 Dr. Beryl Mcmillan Work Phone: [facility] Work Phone: 04-08-2021 12:02-0500 Body weight 57.[address] Beryl Mcmillan Work Phone: [facility] Work Phone: 04-08-2021 12:02-0500 Diastolic blood pressure 84 mm[Hg] Dr. Beryl Mcmillan Work Phone: [facility] Work Phone: 04-08-2021 12:02-0500 Systolic blood pressure 110 mm[Hg] Dr. Beryl Mcmillan Work Phone: [facility] Work Phone: Encounters Encounter Date Encounter Type Care Provider Facility Start: 01-03-2025 End: 01-03-2025 ambulatory Soo Wyneski Facility:[facility] Start: 01-03-2025 ambulatory Candida oLco Facili ty:[facility] Start: 12-30-2024 ambulatory Candida Loco Facili ty:[facility] Start: 12-27-2024 End: 12-27-2024 Dr. Soo Portillo MD -[facility] Work Phone: Start: 12-27-2024 End: 12-27-2024 ambulatory FinalCAD PA-C Work Phone: -[facility] Start: 12-20-2024 End: 12-20-2024 Dr. Soo Portillo MD -[facility] Work Phone: Start: 12-20-2024 End: 12-20-2024 ambulatory FinalCAD PA-C Work Phone: -[facility] Start: 12-19-2024 Encounter for genera l adult medical examination without abnormal findings Sada Christianson [facility] Start: 12-12-2024 Encounter for other preprocedural examination Rakesh Schreiber [facility] Start: 12-08-2024 End: 12-08-2024 Candida Loco [place] -[facility] Work Phone: Start: 12-08-2024 End: 12-08-2024 ambulatory Hoda Ungerer INTERNATIONAL SALES REPRESENTATIVE-C Work Phone: -[facility] Start: 12-07-2024 End: 12-07-2024 Dr. Soo Portillo MD -[facility] Work Phone: Start: 12-07-2024 End: 12-07-2024 ambulatory Hoda Ungerer INTERNATIONAL SALES REPRESENTATIVE-C Work Phone: -[facility] Start: 12-06-2024 Dr. Edgar Muse MD -[facility] Work Phone: Start: 12-06-2024 End: 12-06-2024 ambulatory Collette Connexica PA-C Work Phone: -Nuclear Medicine [facility] Start: 12-06-2024 End: 12-06-2024 Angeli Martin INTERNATIONAL SALES REPRESENTATIVE-C -Nuclear Medicine [facility] Work Phone: Start: 12-05-2024 End: 12-05-2024 ambulatory [facility]-C Work Phone: -Laboratory Spec[facility] Start: 12-05-2024 End: 12-05-2024 Sada KRUSEC -Laboratory Specimen Work Phone: Start: 12-05-2024 End: 12-05-2024 Patient encounter status Sada KRUSEC [facility] Start: 12-05-2024 End: 12-05-2024 Sada KRUSEC -[facility] @ Start: 12-05-2024 End: 12-06-2024 ambulatory Hoda Smith INTERNATIONAL SALES REPRESENTATIVE-C Work Phone: -[facility] @ Start: 12-05-2024 End: 12-05-2024 ambulatory Sada Christianson Facility:[facility] Start: 11-26-2024 ambulatory [facility] Start: 11-23-2024 End: 11-23-2024 Telephone encounter Renetta Dee PA-C Work Phone: Neurology Start: 11-23-2024 End: 11-23-2024 Patient encounter procedure Renetta Dee PA-C Work Phone: Neurology Comment on above: Intractable chronic migraine without aura and without status migrainosus (Primary Dx); Medication overuse headache Start: 11-23-2024 End: 11-23-2024 ambulatory RENETTA DEE Facility:[facility] Start: 11-22-2024 End: 11-22-2024 Rakesh Schreiber DO -Endoscopy Work Phone: Start: 11-22-2024 End: 11-22-2024 ambulatory Hoda Smith INTERNATIONAL SALES REPRESENTATIVE-C Work Phone: -Endoscopy Start: 11-17-2024 End: 11-17-2024 ambulatory Hoda Ungerer INTERNATIONAL SALES REPRESENTATIVE-C Work Phone: -Laboratory Specimen Start: 11-17-2024 End: 11-17-2024 [facility] INTERNATIONAL SALES REPRESENTATIVE-C -Laboratory Specimen Work Phone: Start: 11-17-2024 End: 11-17-2024 ambulatory [facility] Facility:[facility] Start: 11-14-2024 ambulatory [facility] Facility :[facility] Start: 11-13-2024 End: 11-13-2024 Emergency department patient visit ELEUTERIO MANCIA CRYSTALNEREIDA [facility] Start: 11-12-2024 End: 11-12-2024 Emergency department patient visit JEAN CARLOS SCOTT [facility] Start: 11-09-2024 End: 11-09-2024 ambulatory Hoda Ungerer INTERNATIONAL SALES REPRESENTATIVE-C Work Phone: -Laboratory Specimen Start: 11-09-2024 End: 11-09-2024 Patient encounter procedure Tonia Silvas INTERNATIONAL SALES REPRESENTATIVE-C -Laboratory Specimen Work Phone: Start: 11-09-2024 End: 11-09-2024 Tonia [place] INTERNATIONAL SALES REPRESENTATIVE-C -Laboratory Specimen Work Phone: Start: 11-09-2024 End: 11-09-2024 Patient encounter procedure Tonia Silvas INTERNATIONAL SALES REPRESENTATIVE-C -[facility] Work Phone: Start: 11-09-2024 End: 11-09-2024 Tonia Kishor INTERNATIONAL SALES REPRESENTATIVE-C -[facility] Work Phone: Start: 11-09-2024 End: 11-09-2024 ambulatory Hoda Ungerer INTERNATIONAL SALES REPRESENTATIVE-C Work Phone: -[facility] Start: 11-09-2024 End: 11-09-2024 ambulatory [facility] Facility:[facility] Start: 11-07-2024 End: 11-24-2024 Telephone encounter Janet Garcia MD Work Phone: [facility] Clinical Communication Start: 11-05-2024 End: 11-05-2024 ambulatory CANDIDA LOCO [facility] Start: 11-04-2024 End: 11-29-2024 Patient encounter procedure [facility]aut[facility] Start: 11-04-2024 End: 11-29-2024 ambulatory Sujatha Bautitsa RN [facility] Start: 10-25-2024 End: 10-25-2024 ambulatory Hoda Gleasonr INTERNATIONAL SALES REPRESENTATIVE-C Work Phone: -[facility] [place] Start: 10-25-2024 End: 10-25-2024 Patient encounter procedure Zebulun Beam INTERNATIONAL SALES REPRESENTATIVE-C -[facility]atory [place] Start: 10-25-2024 End: 10-25-2024 Zebulun Beam INTERNATIONAL SALES REPRESENTATIVE-C -Laboratory [place] Start: 10-25-2024 End: 10-25-2024 ambulatory Zebulun Beam C Facility:[facility] Start: 10-18-2024 End: 10-18-2024 ambulatory Hoda Courtneyerer INTERNATIONAL SALES REPRESENTATIVE-C Work Phone: -Laboratory Specimen Start: 10-18-2024 End: 10-18-2024 Patient encounter procedure Angeli Martin INTERNATIONAL SALES REPRESENTATIVE-C -Laboratory Specimen Work Phone: Start: 10-18-2024 End: 10-18-2024 Angeli Martin INTERNATIONAL SALES REPRESENTATIVE-C -Laboratory Specimen Work Phone: Start: 10-18-2024 End: 10-18-2024 ambulatory Angeli Timhuong Facility:[facility] Start: 10-14-2024 End: 10-19-2024 Refill Renetta Dee PA-C Work Phone: Neurology Comment on above: Refill Request Start: 10-12-2024 End: 10-12-2024 ambulatory Hoda Courtneyerer INTERNATIONAL SALES REPRESENTATIVE-C Work Phone: -Radiology [facility] Start: 10-12-2024 End: 10-12-2024 Patient encounter procedure Candida Loco PA -Radiology [facility] Work Phone: Start: 10-12-2024 End: 10-12-2024 Candida DUMONT -[facility] Work Phone: Start: 10-12-2024 End: 10-12-2024 ambulatory Candida Loco Facility:[facility] Start: 10-11-2024 End: 10-11-2024 Emergency department patient visit ARACELI NARVAEZ [facility] Start: 10-10-2024 End: 10-10-2024 ambulatory [facility] Start: 10-06-2024 End: 10-06-2024 Patient encounter procedure Candida DUMONT -[facility] Work Phone: Start: 10-06-2024 End: 10-06-2024 Candida DUMONT -[facility] Work Phone: Start: 10-06-2024 End: 10-06-2024 ambulatory Hoda Gleasonr INTERNATIONAL SALES REPRESENTATIVE-C Work Phone: [facility] Start: 10-06-2024 End: 10-06-2024 ambulatory Candida Loco Facility:[facility] Start: 10-03-2024 End: 10-03-[address] Natasha Correia MD -[facility] Work Phone: Start: 10-03-2024 End: 10-03-2024 Dr. Natasha Correia MD -[facility] Work Phone: Start: 10-03-2024 End: 10-03-2024 ambulatory Hoda Gleasonr INTERNATIONAL SALES REPRESENTATIVE-C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 By: #### [id number] ####[facility],[address] [place] [address] Start: 06-03-[address] Margoth Mcmillan [...] Phone: Start: 03-09-[address] Beryl Mmcillan Work Phone: Start: 02-17-2023 Cytopathology proced ure, [...] exam ches t 2 views Hoda Lewis PLUMBER GASFITTER.SKIDDER Work Phone: Start: 04-03-2022 CT of abdomen [...] Beryl Mcmillan Work Phone: H/O: section S/P NP. Elijah Smith INTERNATIONAL SALES REPRESENTATIVE-C Work Phone: History of cholecystectomy Hx of cholecystectomy Dr. Beryl Mcmillan Work Phone: Investigation of transfusion reaction Dr. Beryl Mcmillan Work Phone: Urine culture Dr. Beryl branch Work Phone: Plan of Treatment Date Care Activity Detail Author Start: 06-20-2071 RSV Immunization for Adults (1 - 1-dose 75+ series) RSV Immunization for Adults (1 - 1-dose 75+ series) [facility] Start: 2056 RSV Immunization age d 60 or older (1 - 1-dose 60+ series) RSV Immunization aged 60 or older (1 - 1-dose 60+ series) [facility] Start: 2046 Zoster Vaccines (1 of 2) Zoste r Vaccines (1 of 2) [facility] Start: 07-28-2033 DTaP/Tdap/Td Vaccine s (10 - Td or Tdap) DTaP/Tdap/Td Vaccines (10 - Td or Tdap) [facility] Start: 07-28-2033 Urine microalbumin profile DTaP,Tdap,Td Vaccine (10 - Td or Tdap) [facility] Start: 12-14-2028 DTaP/Tdap/Td Vaccine s (9 - Td or Tdap) DTaP/Tdap/Td Vaccines (9 - Td or Tdap) [facility] Start: 12-14-2028 Urine microalbumin profile DTaP,Tdap,Td Vaccine (9 - Td or Tdap) [facility] Start: 02-28-2025 End: 02-28-2025 Patient encounter procedure 02/28/2025 2:00 PM EST Office Visit Neurology [address] [place] [address] Eleuterio Kelly DO [facility] [address] [place] [address] Intractable chronic migraine without aura and without status migrainosus [G43.719]; Medication overuse headache [G44.40] Neurology Comment on above: Intractable chronic migraine without aura and without status migrainosus [G43.719]; Medication overuse headache [G44.40] Start: 01-25-2025 End: 01-25-2025 Patient encounter procedure 01/25/2025 10:00 AM EST Office Visit Neurology [address] [place] [address] Renetta Dee PA-C [address] [place], [place] [address] 3 month follow up Neurology Comment on above: 3 month follow up Start: 01-11-2025 ambulatory Facility:[facility] Start: 12-20-2024 End: 12-20-2024 [facility] Start: 12-05-2024 Liquid based cervica l cytology screening [facility] Start: 12-05-2024 Source specific culture [facility] Start: 12-05-2024 [facility] Start: 12-02-2024 End: 12-02-2024 Patient encounter procedure 12/02/2024 11:30 AM EDT Office Visit [facility] [place] [address] [facility] [place] [address] Maddie Cline DO [address] [place] [address] [facility] [place] Start: 11-22-2024 Colonoscopy w/biopsy single/multiple [facility] Start: 11-22-2024 Egd transoral biopsy single/multiple [facility] Start: 11-22-2024 Patient discharge [facility] Start: 11-21-2024 COVID-19 Vaccine ( season) COVID-19 Vaccine () [facility] Start: 11-21-2024 Influenza vaccination Influenza Vacc ine (#1) [facility] Start: 10-25-2024 Bacteria identified in Urine by Culture Urine Culture [facility] Start: 10-25-2024 End: 10-25-2024 Patient encounter procedure 10/25/2024 11:00 AM EDT Office Visit Neurology [address] [place] [address] Renetta Dee PA-C [address] [place] [address] Rescheduled from 10/04/24 - No Show Neurology Comment on above: Rescheduled from 09/20 08/14 - No Show Start: 10-25-2024 [facility] Start: 10-18-2024 Bacteria identified in Urine by Culture Urine Culture [facility] Start: 10-18-2024 [facility] Start: 10-12-2024 Plain X-ray abdomen Abdomen Single V iew [facility] Start: 10-12-2024 XR Abdomen Single view [facility] Start: 10-04-2024 End: 10-04-2024 Patient encounter procedure 10/04/2024 11:00 AM EDT Office Visit Neurology [address] [place] [address] Renetta Dee PA-C [address] [place] [address] Facial Numbness, Tingling, Pain, Nausea, Fatigue Neurology Comment on above: Facial Numbness, Tin gling, Pain, Nausea, Fatigue Start: 10-03-2024 Prolactin measurement [facility] Start: 10-03-2024 Thyroid stimulating hormone measurement [facility] Start: 10-03-2024 Antimicrobial susceptibility test [facility] Start: 10-03-2024 Source specific culture [facility] Start: 10-03-2024 Susceptiblty stdy antimicrbial micro/agar dilutj [facility] Start: 10-03-2024 Urine culture Urine Culture [facility] Start: 10-03-2024 Source specific culture [facility] Start: 10-03-2024 [facility] Start: 09-12-2024 Source specific culture [facility] Start: 09-12-2024 Genital Culture Genital Culture [facility] Start: 09-07-2024 End: 09-07-2024 ambulatory 09/07/2024 10:25 AM EDT [facility] [address] [facility] [address] [place] [phone] Jennifer Gerard PA-C [address] [place] [address] 1 [place] [address] to discuss injectables- see TE (est neuro provider out on FMLA) Neurology Comment on above: to discuss injectabl es- see TE (est neuro provider out on FMLA) Start: 08-30-2024 End: 08-30-2024 ambulatory 08/30/2024 9:25 AM EDT [facility] [address] [facility] [address] [place] [phone] Jennifer Gerard PA-C [address] [facility] [address] [place] [address] to discuss injectables- see TE (est neuro provider out on FMLA) Neurology Comment on above: to discuss injectabl es- see TE (est neuro provider out on FMLA) Start: 08-17-2024 End: 08-17-2024 ambulatory 08/17/2024 9:25 AM EDT [facility] [address] [facility] [address] [place] [phone] Jennifer Gerard PA-C [address] [facility] [address] [place] [address] to discuss injectables- see TE (est neuro provider out on FMLA) Neurology Comment on above: to discuss injectabl es- see TE (est neuro provider out on FMLA) Start: 08-08-2024 Patient referral [facility] Work Phone: Start: 08-08-2024 Source specific culture [facility] Start: 08-08-2024 Source specific [facility] Start: 07-29-2024 End: 07-29-2024 Patient encounter procedure Neurology Comment on above: 3 month follow up Migriane 3 mth f/u- ANKUR 05/11 TPM/ Elavil- start Ajovy q mthly Start: 07-27-2024 End: 07-27-2024 Patient encounter procedure 07/27/2024 9:30 AM EDT Office Visit Neurology [address] [place] [address] Renetta Dee PA-C [address] [place], [place] [phone] to discuss injectables- see TE Neurology Comment on above: to discuss injectabl es- see TE Start: 07-25-2024 End: 07-25-2024 Source specific [facility] Start: 06-22-2024 End: 06-22-2024 Patient encounter procedure 06/22/2024 9:30 AM EDT Office Visit Neurology [address] [place] [address] Renetta Dee PA-C [address] [place], [place] [phone] Discuss injectables Neurology Comment on above: Discuss injectables Start: 06-01-2024 End: 06-01-2024 Patient encounter procedure 06/01/2024 8:30 AM EDT Office Visit Neurology [address] [place], [place] [phone] Renetta Dee PA-C [address] [place] [address] Discuss injectables Neurology Comment on above: Discuss injectables Start: 02-16-2024 Digital breast tomosynthesis bilateral BREAST TOMOSYNTHESIS BI [facility] Start: 11-22-2023 COVID-19 (2023-04 5 season) COVID-19 ( season) [facility] Start: 11-22-2023 Covid-19 Vaccine ( season) Covid-19 Vaccine ( season) [facility] Start: 11-22-2023 FLU (#1) FLU (#1) [facility] Start: 11-22-2023 Influenza vaccination Influenza Vacc ine (#1) [facility] Start: 07-17-2023 Insertion of cathete r into peripheral vein [facility] Start: 07-17-2023 Nonstress test [facility] Start: 07-17-2023 Obstetric monitoring [facility] Start: 07-17-2023 Vital signs measurements [facility] Start: 07-17-2023 [facility] Start: 07-17-2023 Patient discharge [facility] Start: 06-15-2023 Iv infusion hydratio n each additional hour HYDRATE IV INFUSION ADD-ON [facility] Start: 06-15-2023 Ther proph/dx njx iv push single/1st sbst/drug THER/PROPH/DIAG INJ IV PUSH [facility] Start: 05-28-2023 Nonstress test [facility] Start: 05-28-2023 Obstetric monitoring [facility] Start: 05-28-2023 Vital signs measurements [facility] Start: 05-28-2023 [facility] Start: 05-28-2023 Patient discharge [facility] Start: 03-09-2023 Cytopathology proced ure, preparation of smear, genital source Genital Culture [facility] Start: 03-09-2023 Source specific culture [facility] Start: 02-23-2023 Iv infusion hydratio n each additional hour HYDRATE IV INFUSION ADD-ON [facility] Start: 02-23-2023 Ther proph/dx njx iv push single/1st sbst/drug THER/PROPH/DIAG INJ IV PUSH [facility] Start: 02-17-2023 Genital Culture Genital Culture [facility] Start: 02-17-2023 Source specific culture [facility] Start: 11-21-2022 COVID-19 Vaccine ( season) COVID-19 Vaccine () [facility] Start: 11-21-2022 Influenza vaccination [facility] Start: 04-04-2022 Patient discharge [facility] Work Phone: Start: 04-04-2022 Care planning and pr oblem solving actions [facility] Work Phone: Start: 04-04-2022 End: 04-04-2022 [facility] Work Phone: Start: 04-04-2022 Following clinical pathway protocol [facility] Work Phone: Start: 04-04-2022 Assessment of risk o f venous thromboembolism [facility] Work Phone: Start: 04-04-2022 Insertion of cathete r into peripheral vein [facility] Work Phone: Start: 04-04-2022 Measuring intake and output [facility] Work Phone: Start: 04-04-2022 Providing care accor ding to standard [facility] Work Phone: Start: 04-04-2022 Provision of activit y privileges [facility] Work Phone: Start: 04-03-2022 CT Abdomen and Pelvi s WO contrast [facility] Work Phone: Start: 04-03-2022 CT of abdomen and pe lvis without contrast Abdomen/Pelvis without Cont [facility] Work Phone: Start: 04-03-2022 Verification routine [facility] Work Phone: Start: 04-03-2022 Admission procedure [facility] Work Phone: Start: 03-23-2022 DEPRESSION ASSESSMENT DEPRESSION ASS ESSMENT [facility] Start: 10-20-2020 COVID-19 VACCINE (3 - Booster for Pfizer series) COVID-19 VACCINE (3 - Booster for Pfizer series) [facility] Start: 10-20-2020 COVID-19 Vaccine (3 - Pfizer series) COVID-19 Vaccine (3 - Pfizer series) [facility] Start: 2017 Microscopic observat ion [Identifier] in Cervix by Cyto stain Pap Smear [facility] Start: 2017 PAP TESTING PAP TESTING [facility] Start: 2017 Screening for malign ant neoplasm of cervix [facility] Start: 06-20-2015 Hepatitis B (1 of 3 - 19+ 3-dose series) Hepatitis B (1 of 3 - 19+ 3-dose series) [facility] Start: 06-20-2015 Urine microalbumin profile DTAP,TDAP,TD (1 - Tdap) [facility] Start: 12-26-2014 Hepatitis A Vaccines (2 of 2 - 2-dose series) Hepatitis A Vaccines (2 of 2 - 2-dose series) [facility] Start: 07-24-2014 HPV Vaccine (2 - 3-d ose series) HPV Vaccine (2 - 3-dose series) [facility] Start: 07-24-2014 HPV Vaccines (2 - 3- dose series) HPV Vaccines (2 - 3-dose series) [facility] Start: 2014 Anxiety Screening Anxiety Screening [facility] Start: 2014 Depression Screening Depression Scre ening [facility] Start: 2014 Diabetes mellitus screening Diabetes Screening [facility] Start: 2014 HEPATITIS C SCREENING HEPATITIS C [place] Start: 2014 Hepatitis C screening Hepatitis C [facility] Start: 2014 HIV SCREENING HIV SCREENING [facility] Start: 2014 HIV screening HIV Screening [facility] Start: 2012 MenB (1 of 2 - MenB 2-Dose Series Bexsero) MenB (1 of 2 - MenB 2-Dose Series Bexsero) [facility] Start: 2010 PEDS TO ADULT TRANSI TION ANNUAL ASSESSMENT PEDS TO ADULT TRANSITION ANNUAL ASSESSMENT [facility] Start: 2009 Varicella (1 of 2 - 13+ 2-dose series) Varicella (1 of 2 - 13+ 2-dose series) [facility] Start: 2008 Depression Monitoring Depression Pop christianson [facility] Start: 2008 Depression Screening Depression Manjula thompson [facility] Start: 2008 PEDS TO ADULT TRANSI TION INITIAL DISCUSSION PEDS TO ADULT TRANSITION INITIAL DISCUSSION [facility] Start: 06-20-2007 HPV VACCINE (1 - 2-d ose series) HPV VACCINE (1 - 2-dose series) [facility] Start: 06-20-2003 Tetanus Diphtheria a nd Pertussis Vaccines (1 - Tdap) Tetanus Diphtheria and Pertussis Vaccines (1 - Tdap) [facility] Start: 1997 MMR (1 of 1 - Standa rd series) MMR (1 of 1 - Standard series) [facility] Start: 1996 HEPATITIS B (1 of 3 - 3-dose series) HEPATITIS B (1 of 3 - 3-dose series) [facility] Start: 1996 HIV screening HIV Screening [facility] Start: 1996 Lipid panel Lipid Panel [facility] Start: 1996 Thyroid stimulating hormone measurement TSH Level [facility] Amphetamine [Mass/vo lume] in Urine [facility] Work Phone: Bacteria identified in Urine by Culture Urine Culture [facility] Work Phone: Benzodiazepine measurement, urine [facility] Work Phone: Bilirubin measuremen t, urine [facility] Work Phone: CBC W Auto Different ial panel - Blood [facility] CHLAMYDIA/N.GONORRHO EAE AND T. VAGINALIS RNA, QL TMA ([facility]) Chlamydia/N.Gonorrhoeae and T. Vaginalis RNA, QL TMA ([facility]) Microbiology Routine Vulvar burning Ordered: 01/27/2023 [facility] Work Phone: Comment on above: Ordered: 01/27/2023 Cocaine measurement, urine [facility] Work Phone: CT Abdomen and Pelvi s W contrast IV [facility] CT Abdomen and Pelvi s W contrast IV [facility] Genital microscopy, culture and sensitivities [facility] Hemoglobin [Presence ] in Urine [facility] Work Phone: Hemoglobin A1c/Hemoglobin.total in Blood [facility] Work Phone: Hepatitis B surface antigen measurement [facility] Hepatitis C antibody measurement [facility] HIV 1+2 Ab+HIV1 p24 Ag [Presence] in Serum or Plasma by Immunoassay [facility] Liquid based cervica l cytology screening [facility] Measurement of 3,4-methylenedioxymethamp hetamine in urine [facility] Work Phone: Measurement of keton es in urine using dipstick [facility] Work Phone: Methadone measuremen t, urine [facility] Work Phone: MG Breast - bilatera l Diagnostic [facility] Microscopic urinalysis [facility] Work Phone: Path report.final Dx Spec [facility] Patient Education Kick Counts ED False Labor OB Triage: Return to Hospital or Notify Physician if you Experience: [facility] Work Phone: Patient referral [facility] Work Phone: pH of Urine [facility] Work Phone: Phencyclidine [Prese nce] in Urine [facility] Work Phone: Protein/Creatinine [Ratio] in Urine [facility] Rubella IgG measurement [facility] Source specific culture [facility] Source specific culture [facility] Specific gravity of Urine [facility] Work Phone: SURESWAB(R) ADV CAND CESAR VAGINITIS (CV), TMA ([facility]) Sureswab(R) Adv Jennifer Vaginitis (CV), TMA ([facility]) Lab Routine Vulvar burning Ordered: 01/27/2023 [facility] Comment on above: Ordered: 01/27/2023 T4 free measurement [facility] Thyroid stimulating hormone measurement [facility] Treponema sp Ab [Presence] in Serum [facility] Urinalysis, blood, qualitative [facility] Work Phone: Urine barbiturate measurement [facility] Work Phone: Urine cannabinoid measurement [facility] Work Phone: Urine culture [facility] Urine culture [facility] Urine culture [facility] Urine dipstick for glucose [facility] Work Phone: Urine dipstick for leukocyte esterase [facility] Work Phone: Urine dipstick for nitrite [facility] Work Phone: Urine dipstick for protein [facility] Work Phone: Urine examination [facility] Work Phone: Urine microscopy: epithelial cells [facility] Work Phone: Urine Microscopy: wh ite cells [facility] Work Phone: Urine opiate measurement [facility] Work Phone: Urobilinogen [Presen ce] in Urine [facility] Work Phone: US Breast limited [facility] XR Abdomen Single view [facility] XR Abdomen Single view [facility] Work Phone: [facility] Immunizations Immunization Date Immunization Notes Care Provider [facility] 01-07-2024 influenza virus vacc ine, unspecified formulation Renetta Dee PA-C Work Phone: [facility] 07-29-2023 tetanus toxoid, redu niya diphtheria toxoid, and acellular pertussis vaccine, adsorbed INTERNATIONAL SALES REPRESENTATIVE. Hoda Smith INTERNATIONAL SALES REPRESENTATIVE-C Work Phone: [facility] 12-25-2022 influenza virus vacc ine, unspecified formulation Janet Garcia MD Work Phone: [facility] 12-31-2020 influenza virus vacc ine, unspecified formulation TERRENCE CH MD [facility] 08-25-2020 SARS-CoV-2 mRNA (tozinameran) vaccine TERRENCE CH MD [facility] 07-25-2020 SARS-CoV-2 mRNA (tozinameran) vaccine TERRENCE CH MD [facility] 03-15-2020 influenza virus vacc ine, unspecified formulation TERRENCE CH MD [facility] 04-23-2019 influenza virus vacc ine, unspecified formulation TERRENCE CH MD [facility] 12-14-2018 diphtheria, tetanus toxoids and acellular pertussis vaccine, unspecified formulation Dr. Beryl Mcmillan Work Phone: [facility] Work Phone: 12-14-2018 tetanus toxoid, redu niya diphtheria toxoid, and acellular pertussis vaccine, adsorbed Dr. Beryl Mcmillan Work Phone: [facility] 12-10-2018 influenza virus vacc ine, unspecified formulation TERRENCE CH MD [facility] 12-10-2018 influenza, injectabl e, quadrivalent, preservative free Dr. Beryl Mcmillan Work Phone: [facility] 12-10-2018 influenza, seasonal, injectable Dr. Beryl Mcmillan Work Phone: [facility] Work Phone: 03-23-2017 influenza virus vacc ine, unspecified formulation TERRENCE CH MD [facility] 06-26-2014 hepatitis A vaccine, pediatric dosage, unspecified formulation TERRENCE CH MD [facility] 06-26-2014 Human Papillomavirus Quadval TERRENCE CH MD [facility] 06-26-2014 meningococcal polysaccharide (groups A, C, Y and W-135) diphtheria toxoid conjugate vaccine (MCV4P) TERRENCE CH MD [facility] 06-26-2014 varicella virus vaccine JONO CH MD [facility] 06-26-2014 hepatitis A and hepatitis B vaccine Janet Garcia MD Work Phone: [facility] 06-26-2014 HPV, unspecified formulation Janet Garcia MD Work Phone: [facility] 01-26-2013 influenza virus vacc ine, unspecified formulation TERRENCE CH MD [facility] 04-10-2010 influenza virus vacc ine, unspecified formulation TERRENCE CH MD [facility] 08-07-2009 tetanus toxoid, redu niya diphtheria toxoid, and acellular pertussis vaccine, adsorbed TERRENCE CH MD [facility] 02-20-2003 influenza virus vacc ine, unspecified formulation TERRENEC CH MD [facility] 11-01-2002 measles/mumps/rubell a virus vaccine TERRENCE CH MD [facility] 11-01-2002 poliovirus vaccine, inactivated TERRENCE CH MD [facility] 12-18-1997 haemophilus influenz ae type b vaccine, PRP-OMP conjugate TERRENCE CH MD [facility] 12-18-1997 varicella virus vaccine JONO CH MD [facility] 06-26-1997 measles/mumps/rubell a virus vaccine TERRENCE CH MD [facility] 02-14-1997 hepatitis B pediatri c vaccine TERRENCE CH MD [facility] 1996 hepatitis B pediatri c vaccine TERRENCE CH MD [facility] 1996 hepatitis B pediatri c vaccine TERRENCE CH MD [facility] Payers Date Payer Category Payer Self-pay [id number] 2023 Medicaid [id number] 2023 Medicaid [place] [employer] [place] [id number] 2023 Medicaid [id number] 2018 Unknown [id number]. 1.13.159.2.7.3. [id number] 1996 Unknown [id number] 2.16.840.1.345239.3.579.2479 1996 Unknown [id number] 2.16.840.1.603156.3.579.2479 1996 Unknown [id number] 2.16.840.1.500568.3.579.2479 1996 Unknown [id number] 2.16.840.1.299322.3.579.2479 1996 Unknown [id number] 2.16.840.1.161868.3.579.247 1996 Unknown [id number] 2.16.840.1.713020.3.579.247 1996 Unknown [id number] 2.16.840.1.816459.3.579.247 1996 Unknown [id number] 2.16.840.1.921348.3.579.247 1996 Unknown [id number] 2.16.840.1.328981.3.579.247 1996 Unknown [id number] 2.16.840.1.006244.3.579.265 1996 Unknown [id number] 2.16.840.1.135012.3.579.265 1996 Unknown [id number] 2.16.840.1.735761.3.579.265 1996 Unknown [id number] 2.16.840.1.526780.3.579.265 1996 Unknown [id number] 2.16.840.1.848142.3.579.265 1996 Unknown [id number] 2.16.840.1.687079.3.579.265 1996 Unknown [id number] 2.16.840.1.803657.3.579.265 1996 Unknown [id number] 2.16.840.1.726351.3.579.265 1996 Unknown [id number] 2.16.840.1.159569.3.579.2.651 1996 Unknown [id number] 2.16.840.1.788760.3.579.265 1996 Unknown [id number] 2.16.840.1.635678.3.579.2.651 1996 Unknown [id number] 2.16.840.1.991594.3.579.2.651 1996 Unknown [id number] 2.16.840.1.726143.3.579.2.651 1996 Unknown [id number] 2.16.840.1.063851.3.579.2.651 1996 Unknown [id number] 2.16.840.1.112126.3.579.2.651 1996 Unknown [id number] 2.16.840.1.060134.3.579.2.651 1996 Unknown [id number] 2.16.840.1.350991.3.579.2.651 1996 Unknown [id number] 2.16.840.1.313387.3.579.2.651 1996 Unknown [id number] 2.16840.1.659304.3.579.2.651 1996 Unknown [id number] 2.16840.1.335951.3.579.2.651 1996 Unknown [id number] 2.16.840.1.938486.3.579.2.651 1996 Unknown [id number] 2.16.840.1.514817.3.579.2.651 1996 Unknown [id number] 2.16840.1.526586.3.579.2.651 Unknown [id number] Unknown [id number] Unknown [id number] Unknown [id number] Unknown [id number] 2.16840.1.628949.3.579.2.462 Unknown [id number] 2.840.1.086861.3.579.2.462 Unknown [id number] 2.16.840.1.612280.3.579.2.462 Unknown [id number] 2.16.840.1.884246.3.579.2.462 Unknown [id number] 2.16.840.1.655113.3.579.2.462 Unknown [id number] 2.16.840.1.543614.3.579.2.462 Unknown [id number] 2.16.840.1.450157.3.579.2.462 Unknown [id number] 2.16.840.1.944021.3.579.2.462 Unknown [id number] 2.16.840.1.276221.3.579.2.462 Unknown [id number] 2.16.840.1.219756.3.579.2.462 Unknown [id number] 2.840.1.306498.3.579.2.462 Unknown [id number] 2.16840.1.684598.3.579.2.462 Unknown [id number] 2.16.840.1.699797.3.579.2.462 Unknown [id number] 2.16.840.1.944209.3.579.2.462 Unknown [id number] 2.16.840.1.946909.3.579.2.462 Unknown [id number] 2.16840.1.057135.3.579.2.462 Unknown [id number] 2.16.840.1.495559.3.579.2.462 Unknown [id number] 2.16.840.1.076607.3.579.2.462 Unknown [id number] 2.16.840.1.543058.3.579.2.462 Unknown [id number] 2.16.840.1.643180.3.579.2.462 Unknown [id number] 2.16.840.1.505028.3.579.2.462 Unknown [id number] 2.840.1.205432.3.579.2.462 Unknown [id number] 2.840.1.637173.3.579.2.462 Unknown [id number] 2.840.1.595823.3.579.2.462 Unknown [id number] 2.840.1.363307.3.579.2.462 Unknown [id number] 2.840.1.310507.3.579.2.462 Unknown [id number] 2.840.1.338827.3.579.2.462 Unknown [id number] 2.840.1.321299.3.579.2.462 Unknown [id number] 2.840.1.331159.3.579.2.462 Unknown [id number] 2.840.1.334205.3.579.2.462 Unknown [id number] 2.840.1.661776.3.579.2.462 Unknown [id number] .840.1.568594.3.579.2.462 Unknown [id number] .840.1.961482.3.579.2.462 Unknown [id number] 2.840.1.669021.3.579.2.462 Unknown [id number] .840.1.868399.3.579.2.462 Unknown [id number] .840.1.682249.3.579.2.462 Unknown [id number] 2.840.1.389268.3.579.2.462 Unknown [id number] 2.840.1.311568.3.579.2.462 Unknown [id number] 2.840.1.327373.3.579.2.462 Unknown [id number] 2.16.840.1.851014.3.579.2.462 Unknown [id number] 2.16.840.1.944455.3.579.2.462 Unknown [id number] 2.16.840.1.867639.3.579.2.462 Unknown [id number] 2.16.840.1.638421.3.579.2.462 Unknown [id number] 2.16.840.1.402137.3.579.2.462 Unknown [id number] 2.16.840.1.423050.3.579.2.462 Unknown [id number] 2.16840.1.957128.3.579.2.462 Unknown [id number] 2.16.840.1.197627.3.579.2.462 Unknown [id number] 2..840.1.159983.3.579.2.462 Unknown [id number] 2.840.1.742022.3.579.2.462 Unknown [id number] 2.840.1.623058.3.579.2.462 Unknown [id number] 2.16840.1.698866.3.579.2.462 Unknown [id number] 2.16.840.1.362395.3.579.2.462 Unknown [id number] 2.840.1.502695.3.579.2.462 Unknown [id number] 2.840.1.186581.3.579.2.462 Unknown [id number] 2.16840.1.714449.3.579.2.462 Unknown [id number] 2.840.1.899516.3.579.2.462 Unknown [id number] 2.840.1.199108.3.579.2.462 Social History Date Type Detail Facility Start: 07-03-2021 End: 07-09-2023 Tobacco smoking status NHIS Unknown if ever smoked [facility] Start: 11-20-2018 None [facility] Start: 01-29-2020 Spouse/ Signif icant Other [facility] Start: 05-30-2020 Non-smoker [facility] Start: 1995 Sex Assigned At Female C [facility] Start: 12-19-2017 End: 11-18-2024 Tobacco smoking status NHIS Never smoked tobacco [facility] Start: 12-19-2017 End: 04-27-2024 Tobacco use and exposure Smokeless tobacco non-user [facility] Start: 05-17-2021 End: 03-11-2022 Alcohol intake Lifetime non-drinker (finding) [facility] Start: 06-05-2020 History SDOH Alcohol Frequency 1 [facility] Start: 03-11-2022 End: 10-25-2024 History of Social function [facility] Start: 03-11-2022 End: 10-25-2024 Tobacco use panel [facility] Work Phone: Start: 09-28-2020 Gender identity Identifies as female gender (finding) [facility] Start: 01-09-2022 Sexual orientation Heterosexual (fin ding) [facility] Start: 12-19-2017 National Score (1-10 0), lower number is lower risk Not on file [facility] Start: 10-19-2023 Alcoholic beverage intake Current non-drinker of alcohol (finding) [facility] Start: 1996 Sex assigned at Not on file [facility] Start: 01-05-2024 End: 01-05-2024 Tobacco smoking status NHIS Ex-smoker (finding) [facility] Start: 10-22-2021 End: 05-28-2024 Sex Female (finding) [facility] Medical Equipment Procedure Code Equipment Code Equipment Origin al Text Equipment Identifier Dates Blood Sugar Diagnostic (Blood Glucose Test) strip Start: 07-29-2023 End: 07-29-2023 Lancets misc Start: 07-29-2023 End: 07-29-2023 Pen Needle, Diab etic (Comfort Ez Pen [place]) 29 gauge x 1/2 needle Start: 08-24-2023 End: 10-14-2023 Blood Sugar Diagnostic (Blood Glucose Test) strip Start: 07-29-2023 End: 07-29-2023 Lancets misc Start: 07-29-2023 End: 07-29-2023 Pen Needle, Diab etic (Comfort Ez Pen [place]) 29 gauge x 1/2 needle Start: 08-24-2023 End: 10-14-2023 Blood Sugar Diagnostic (Blood Glucose Test) strip Start: 07-29-2023 End: 07-29-2023 Lancets misc Start: 07-29-2023 End: 07-29-2023 Pen Needle, Diab etic (Comfort Ez Pen [employer]ounding [employer]) 29 gauge x 1/2 needle Start: 08-24-2023 End: 10-14-2023 Blood Sugar Diagnostic (Blood Glucose Test) strip Start: 07-29-2023 End: 07-29-2023 Lancets misc Start: 07-29-2023 End: 07-29-2023 Pen Needle, Diab etic (Comfort Ez [employer]) 29 gauge x 1/2 needle Start: 08-24-2023 End: 10-14-2023 Blood Sugar Diagnostic (Blood Glucose Test) strip Start: 07-29-2023 End: 07-29-2023 Lancets misc Start: 07-29-2023 End: 07-29-2023 Pen Needle, Diab etic (Comfort Ez [employer]) 29 gauge x 1/2 needle Start: 08-24-2023 End: 10-14-2023 Blood Sugar Diagnostic (Blood Glucose Test) strip Start: 07-29-2023 End: 07-29-2023 Lancets misc Start: 07-29-2023 End: 07-29-2023 Pen Needle, Diab etic (Comfort Ez [employer]) 29 gauge x 1/2 needle Start: 08-24-2023 End: 10-14-2023 Blood Sugar Diagnostic (Blood Glucose Test) strip Start: 07-29-2023 End: 07-29-2023 Lancets misc Start: 07-29-2023 End: 07-29-2023 Pen Needle, Diab etic (Comfort Ez [employer]) 29 gauge x 1/2 needle Start: 08-24-2023 End: 10-14-2023 Blood Sugar Diagnostic (Blood Glucose Test) strip Start: 07-29-2023 End: 07-29-2023 Lancets misc Start: 07-29-2023 End: 07-29-2023 Pen Needle, Diab etic (Comfort Ez [employer]) 29 gauge x 1/2 needle Start: 08-24-2023 End: 10-14-2023 Blood Sugar Diagnostic (Blood Glucose Test) strip Start: 07-29-2023 End: 07-29-2023 Lancets misc Start: 07-29-2023 End: 07-29-2023 Pen Needle, Diab etic (Comfort Ez [employer]) 29 gauge x 1/2 needle Start: 08-24-2023 End: 10-14-2023 Blood Sugar Diagnostic (Blood Glucose Test) strip Start: 07-29-2023 End: 07-29-2023 Lancets misc Start: 07-29-2023 End: 07-29-2023 Pen Needle, Diab etic (Comfort [employer]) 29 gauge x 1/2 needle Start: 08-24-2023 End: 10-14-2023 Blood Sugar Diagnostic (Blood Glucose Test) strip Start: 07-29-2023 End: 07-29-2023 Lancets misc Start: 07-29-2023 End: 07-29-2023 Pen Needle, Diab etic (Comfort [employer]) 29 gauge x 1/2 needle Start: 08-24-2023 End: 10-14-2023 Blood Sugar Diagnostic (Blood Glucose Test) strip Start: 07-29-2023 End: 07-29-2023 Lancets misc Start: 07-29-2023 End: 07-29-2023 Pen Needle, Diab etic (Comfort Ez [employer]) 29 gauge x 1/2 needle Start: 08-24-2023 End: 10-14-2023 Blood Sugar Diagnostic (Blood Glucose Test) strip Start: 07-29-2023 End: 07-29-2023 Lancets misc Start: 07-29-2023 End: 07-29-2023 Pen Needle, Diab etic (Comfort [employer]) 29 gauge x 1/2 needle Start: 08-24-2023 End: 10-14-2023 Blood Sugar Diagnostic (Blood Glucose Test) strip Start: 07-29-2023 End: 07-29-2023 Lancets misc Start: 07-29-2023 End: 07-29-2023 Pen Needle, Diab etic (Comfort [employer]) 29 gauge x 1/2 needle Start: 08-24-2023 End: 10-14-2023 Blood Sugar Diagnostic (Blood Glucose Test) strip Start: 07-29-2023 End: 07-29-2023 Lancets misc Start: 07-29-2023 End: 07-29-2023 Pen Needle, Diab etic (Comfort [employer]) 29 gauge x 1/2 needle Start: 08-24-2023 End: 10-14-2023 Blood Sugar Diagnostic (Blood Glucose Test) strip Start: 07-29-2023 End: 07-29-2023 Lancets misc Start: 07-29-2023 End: 07-29-2023 Pen Needle, Diab etic (Comfort [employer]) 29 gauge x 1/2 needle Start: 08-24-2023 End: 10-14-2023 Blood Sugar Diagnostic (Blood Glucose Test) strip Start: 07-29-2023 End: 07-29-2023 Lancets misc Start: 07-29-2023 End: 07-29-2023 Pen Needle, Diab etic (Comfort [employer]) 29 gauge x 1/2 needle Start: 08-24-2023 End: 10-14-2023 Blood Sugar Diagnostic (Blood Glucose Test) strip Start: 07-29-2023 End: 07-29-2023 Lancets misc Start: 07-29-2023 End: 07-29-2023 Pen Needle, Diab etic (Comfort [employer]) 29 gauge x 1/2 needle Start: 08-24-2023 End: 10-14-2023 Blood Sugar Diagnostic (Blood Glucose Test) strip Start: 07-29-2023 End: 07-29-2023 Lancets misc Start: 07-29-2023 End: 07-29-2023 Pen Needle, Diab etic (Comfort [employer]) 29 gauge x 1/2 needle Start: 08-24-2023 End: 10-14-2023 Blood Sugar Diagnostic (Blood Glucose Test) strip Start: 07-29-2023 End: 07-29-2023 Lancets misc Start: 07-29-2023 End: 07-29-2023 Pen Needle, Diab etic (Comfort [employer]) 29 gauge x 1/2 needle Start: 08-24-2023 End: 10-14-2023 Goals Date Patient Goal Desired Activity /State Functional Status Date Assessment Result Facility 04-04-2022 Functional status Ambulates;Up ad lucía [facility] Work Phone: 03-03-2022 Functional Status Single level home [facility] 03-03-2022 Functional Status [place] 03-03-2022 Functional Status [place] 03-03-2022 Functional Status Breakfast Percent [address] [facility] 03-03-2022 Functional Status Shampoo/Body wash (no r inse) [facility] 03-02-2022 Functional Status Hospital bed [place] 03-02-2022 Functional Status [place] 03-02-2022 Functional Status [place] 03-02-2022 Functional Status Sensory Deficits None [facility] Mental Status Date Assessment Result Facility 11-22-2024 Cognitive function Voice/Name [facility] Work Phone: 06-15-2023 Cognitive function Awake;Alert;A ppropriate;Fol lows Commands [facility] Work Phone: 02-23-2023 Cognitive function Voice/Name [facility] Work Phone: 04-04-2022 Cognitive function Voice/Name [facility] Work Phone: 03-03-2022 Mental Status Oriented x 4 [facility] 03-02-2022 Mental Status [facility] 03-02-2022 Mental Status [facility] Clinical Notes 04-08-2021 to 12-10-2024 Telephone Encounter - Maty Rice RN - 12/10/2024 1:34 PM EDTTelephone Encounter - Maty Rice RN - 12/10/2024 1:34 PM EDTTelephone Encounter - Sujatha Bautista RN - 11/04/2024 3:46 PM EDT Note Date & Type Note Facility 12-10-2024 Telephone encount er Note Patient cancelled INTERNATIONAL SALES REPRESENTATIVE appointment 12/02/24. Called patient left VM message to call office if she would like to reschedule appointment. [facility] 12-10-2024 Miscellaneous Notes Formattin g of this note might be different from the original. Patient cancelled INTERNATIONAL SALES REPRESENTATIVE appointment 12/02/24. Called patient left VM message to call office if she would like to reschedule appointment. S: Patient spoke with [facility] nurse regarding vaginal pain B: Onset of symptoms/concern month A: Patient reports having frequent vaginal infections. Been on 3 antibiotics in the past month for UTI and strep. Frequent urination, vaginal burning for a month. Denies burning with urination, discharge, odor, itching. Has not had cycle in the past 3 months. Negative test. LMP beginning of July. Was advised today by current BATCHER OPERATOR to be seen with Dr Garcia. Patient states that she seen her PCP and was advised to follow up with BATCHER OPERATOR. 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 Advised patient that a message will be sent to the provider for review. Please call patient to schedule appointment. No further needs at this time. Patient instructed to call back with new or worsening symptoms. Reason for Disposition Pain in genital area is a chronic symptom (recurrent or ongoing AND present > 4 weeks) Protocols used: Vaginal [id number] documented in this encounter [facility] 12-06-2024 Nuclear medicine Diagnostic study note [facility] 11-23-2024 Telephone encount er Note OV note from today faxed to att. Candida DUMONT via [employer]. Angie Amador LPN [facility] 11-23-2024 Miscellaneous Notes Formattin g of this note might be different from the original. OV note from today faxed to attPrincess DUMONT via [employer]. Angie Amador LPN Are we able to fax this to Candida Loco PA-C at [facility] at [address], [place] documented in this encounter [facility] 11-23-2024 Telephone encount er Note Are we able to fax this to Candida Loco PA-C at [facility] at [address], [place] [facility] 11-23-2024 Instructions Renetta Dee PA-C - 11/23/2024 10:16 AM EDT Try the depakote bridge to break headache Continue with Qulipta 60mg daily for headache Consult to the headache clinic Try compazine for nausea up to three times a day. Do not take with zofran. documented in this encounter [facility] 11-23-2024 Note HNO ID: [id number] Author: QUEENER, RENETTA, PA-C Service: ? Author Type: Physician Wax Pumper Type: Progress Notes Filed: 11/23/2024 10:38 Note Text: [facility] for General Neurology Follow up CC: Headache Follow up Last Visit: 10/25/24 ASSESSMENT/PLAN: 1. Intractable chronic migraine without aura and without status migrainosus - ICD9: 346.71, ICD10: G43.719 (primary diagnosis) 2. Medication overuse headache - ICD9: 339.3, ICD10: G44.40 Patient with no significant improvement in headaches since last appointment. Was seen by other PA for follow-up. Originally was started on Ajovy in April and noted maybe some decrease in the severity of her headaches but not the occurrence. Was started on Qulipta and stopped Ajovy in August, was started on 10 mg but has not noticed any significant benefit. Tolerating it well without any side effects. Notes that Ubrelvy is helpful as an abortive but she runs that every month. Decreased yzlo-gye-oaahuih medications and only takes a few Imitrex a month if absolutely needed. Did have paresthesias to the right side of the face with a headache which prompted her evaluation of the ER, CT of the brain was negative. Did have an MRI which was reportedly negative but I do not see this result. Patient was discharged home with diagnosis of migraine. Denies any significant weakness with this headache. At this time, discussed increasing Ubrelvy to 60 mg and patient is amenable. Of note, states that she is seeing an planisher they want to do testing, want her to come off of the amitriptyline for a week. Discussed starting the Qulipta 60 mg for a month before decreasing amitriptyline slowly. Does have some constipation issues along with weight gain and discussed this could be contributing as well. Patient is interested in Botox if the Qulipta does not work, do feel this is an appropriate neck step if needed. Patient agreeable to treatment plan of care at this time, all questions were answered. Patient to follow-up in 2 to 3 months or sooner. Plan: All options for treatment discussed. Preventative: Qulipta 60 mg, amitriptyline 100 mg, propranolol Abortive: Ubrelvy Follow-up: 3 months Today: PT is here for headache/migraine follow up. Last seen on 10/25/24 for migraine. Qulipta approved but patient not noticing improvement, increased to 60mg daily and notes continued FLANAGAN. Tried depakote for 10 days but did not take it due to possible interactions. Since last visit headaches have not changed. Notes her headache has been persistent, unchanged since her last appointment. Did not start the Depakote because she was told there was an interaction with her amitriptyline. While there is an interaction, not significant, will monitor for the 10 days while she is on it. Notes that she was found to have gastroparesis on recent testing and feels this may be contributing to her migraines and the absorption of her medications. Notes that the Ubrelvy is still very helpful for her but she runs out every month. Takes naproxen and ibuprofen as well, although she is not supposed to because she has a history of ulcers. Has been given Toradol IV in the past with no significant benefit. Current Headache treatment Preventative: Qulipta 60 mg, Elavil 100 mg Abortive: Ubrelvy Medications effective? yes # of doses of abortive medications per month: 10 Total headache days per month: almost daily Total headache attacks per month: almost daily Headache free days: Yes Duration of attacks: multiple days Severity of headaches? severe Onset: 12 years [...] Time missed from work or school: none Pain today: moderate (2) Tobacco Use: No. Alcohol Use: No Caffeine: Coffee Prior Therapies Ubrelvy ASA Fioricet Elavil Eletriptan Labetolol Imitrex TPM Effexor Amlodipine Maxalt Cymbalta Gabapentin Ajovy Qulipta The patient's prior records were reviewed including and lab testing, imaging, and procedures done since their last visit with me. Review of symptoms including constitutional, eyes, ENT, neck, respiratory, cardiovascular, GI, , musculoskeletal, hematologic, oncologic, endocrine, and psychiatric categories is unchanged. No new details in the family history or social history were offered by the patient. PAST MEDICAL HISTORY Diagnosis Date Migraine headache Osteogenesis imperfecta (HCC) 02/21/2018 Preeclampsia (HCC) Seasonal allergies Thoracogenic scoliosis of thoracolumbar region 02/21/2018 PAST SURGICAL HISTO (more content not included)... [facility] 11-23-2024 History of Presen t illness Narrative Images from the original note were not included. [facility] for General Neurology Follow up CC: Headache Follow up Last Visit: 10/25/24 ASSESSMENT/PLAN: 1. Intractable chronic migraine without aura and without status migrainosus - ICD9: 346.71, ICD10: G43.719 (primary diagnosis) 2. Medication overuse headache - ICD9: 339.3, ICD10: G44.40 Patient with no significant improvement in headaches since last appointment. Was seen by other PA for follow-up. Originally was started on Ajovy in April and noted maybe some decrease in the severity of her headaches but not the occurrence. Was started on Qulipta and stopped Ajovy in August, was started on 10 mg but has not noticed any significant benefit. Tolerating it well without any side effects. Notes that Ubrelvy is helpful as an abortive but she runs that every month. Decreased ospe-swl-vagfghb medications and only takes a few Imitrex a month if absolutely needed. Did have paresthesias to the right side of the face with a headache which prompted her evaluation of the ER, CT of the brain was negative. Did have an MRI which was reportedly negative but I do not see this result. Patient was discharged home with diagnosis of migraine. Denies any significant weakness with this headache. At this time, discussed increasing Ubrelvy to 60 mg and patient is amenable. Of note, states that she is seeing an planisher they want to do testing, want her to come off of the amitriptyline for a week. Discussed starting the Qulipta 60 mg for a month before decreasing amitriptyline slowly. Does have some constipation issues along with weight gain and discussed this could be contributing as well. Patient is interested in Botox if the Qulipta does not work, do feel this is an appropriate neck step if needed. Patient agreeable to treatment plan of care at this time, all questions were answered. Patient to follow-up in 2 to 3 months or sooner. Plan: All options for treatment discussed. Preventative: Qulipta 60 mg, amitriptyline 100 mg, propranolol Abortive: Ubrelvy Follow-up: 3 months Today: PT is here for headache/migraine follow up. Last seen on 10/25/24 for migraine. Qulipta approved but patient not noticing improvement, increased to 60mg daily and notes continued FLANAGAN. Tried depakote for 10 days but did not take it due to possible interactions. Since last visit headaches have not changed. Notes her headache has been persistent, unchanged since her last appointment. Did not start the Depakote because she was told there was an interaction with her amitriptyline. While there is an interaction, not significant, will monitor for the 10 days while she is on it. Notes that she was found to have gastroparesis on recent testing and feels this may be contributing to her migraines and the absorption of her medications. Notes that the Ubrelvy is still very helpful for her but she runs out every month. Takes naproxen and ibuprofen as well, although she is not supposed to because she has a history of ulcers. Has been given Toradol IV in the past with no significant benefit. Current Headache treatment Preventative: Qulipta 60 mg, Elavil 100 mg Abortive: Ubrelvy Medications effective? yes # of doses of abortive medications per month: 10 Total headache days per month: almost daily Total headache attacks per month: almost daily Headache free days: Yes Duration of attacks: multiple days Severity of headaches? severe Onset: 12 years [...] Time missed from work or school: none Pain today: moderate (2) Tobacco Use: No. Alcohol Use: No Caffeine: Coffee Prior Therapies Ubrelvy ASA Fioricet Elavil Eletriptan Labetolol Imitrex TPM Effexor Amlodipine Maxalt Cymbalta Gabapentin Ajovy Qulipta The patient's prior records were reviewed including and lab testing, imaging, and procedures done since their last visit with me. Review of symptoms including constitutional, eyes, ENT, neck, respiratory, cardiovascular, GI, , musculoskeletal, hematologic, oncologic, endocrine, and psychiatric categories is unchanged. No new details in the family history or social history were offered by the patient. PAST MEDICAL HISTORY Diagnosis Date Migraine headache Osteogenesis imperfecta (HCC) 02/21/2018 Preeclampsia (HCC) Seasonal allergies Thoracogenic scoliosis of thoracolumbar region 02/21/2018 PAST SURGICAL HISTORY Procedure Laterality Date CHOLECYSTECTOMY EGD 06/07/2020 ALLERGIES Allergen Reactions Bactrim [Sulfametho* Rash Rash and GI upset Morphine Other: See Comments Chest pain, elevated heart rate Nurtec Odt [Rimegep* Rash Current Medications: TRULANCE 3 mg tablet hydrOXYzine pamoate (VISTARIL) 50 mg capsule Take 50 mg by mouth three times a day as needed for anxiety. atogepant (QULIPTA) 60 mg tablet Take 1 tablet by mouth once daily. amitriptyline (ELAVIL) 100 mg tablet Take 1 tablet by mouth daily at bedtime. ubrogepant (UBRELVY) 100 mg tablet Take 1 tablet by mouth once daily as needed for migraine headache (see administration instructions). levothyroxine 25 mcg cap Take 25 mcg by mouth daily before breakfast. pantoprazole DR (PROTONIX) 20 mg tablet Take 40 mg by mouth once daily. prochlorperazine (COMPAZINE) 10 mg tablet Take 1 tablet by mouth every 8 hours as needed. Take up to three times a day for nausea and migraine. divalproex ER (DEPAKOTE ER) 500 mg 24 hr tablet Take 2 tabs nightly for five nights then 1 tab nightly for five nights then stop (Patient not taking: Reported on 11/23/2024) docusate sodium (COLACE) 100 mg capsule Take 100 mg by mouth two times a day. Up to 400 mg daily hydrOXYzine HCl (ATARAX) 10 mg tablet Take 1 tablet by mouth three times a day as needed. fluticasone propionate (XHANCE) 93 mcg/actuation nasal spray Use 2 Sprays in the nose twice daily. (Patient not taking: Reported on 07/12/2022) hydrocortisone (ANUSOL-HC) 25 mg suppository 1 Suppository by RECTAL route twice daily. (Patient not taking: No sig reported) LINZESS 290 mcg capsule Take 145 mcg by mouth once daily. (Patient not taking: No sig reported) fluticasone (FLONASE) 50 mcg/actuation nasal spray Use 2 Sprays in each nostril once daily. Rinse mouth after use. (Patient not taking: No sig reported) nystatin (MYCOSTATIN) ointment APPLY 2 TIMES A DAY TO BURNING VAGINAL AREA (Patient not taking: No sig reported) sodium chloride (SALINE MIST) 0.65 % nasal spray Use 1 [place] in the nose every 6 hours as needed for Cold/Allergy Symptoms. (Patient not taking: No sig reported) Studies to Review: No New Health Issues: Yes, gastroparesis New Social History: No New Family History: No REVIEW OF SYSTEMS: GENERAL:No weight loss, malaise or fevers. HEENT:no changes to hearing or vision NECK:negative for neck pain, swelling. RESPIRATORY: Negative for cough, wheezing or shortness of breath. CARDIOVASCULAR: Negative for chest pain, leg swelling or palpitations. GASTROINTESTINAL: Negative for abdominal discomfort, blood in stools or black stools or change in bowel habits GENITOURINARY: No history of dysuria, frequency or incontinence MUSKULOSKELETAL: Negative for joint pain or swelling, back pain or muscle pain. SKIN:Negative for lesions, rash, and itching. HEMATOLOGIC/LYMPHATIC/IMMUNOLO GIC:Negative for prolonged bleeding, bruising easily or swollen nodes. ENDOCRINE: Negative for cold or heat intolerance, polyuria, polydipsia NEUROLOGIC:See HPI PHYSICAL EXAMINATION: BP 122/82 Pulse 72 Resp 16 LMP 04/18/2019 (Approximate) SpO2 99% General: well appearing, in no acute distress, alert, HEENT: Normocephalic/atraumatic., Skin: Color, texture, turgor normal. No rashes or lesions, Lungs: Breathing comfortably, Neurological Examination: Cognition: The patient is alert and oriented times three Lucid and organized in conversation Able to tell detailed medical hx Speech is Normal in fluency volume and clarity Content and Syntax: Normal Comprehension: Normal, able to follow several step commands Cranial Nerves: Pupils are equal and reactive to light. Pupils normal in size Extraocular movements are grossly intact Good saccades and pursuits No nystagmus Hearing intact Good upgaze Visual bell are full to confrontation. Facial, motor and sensory exam is symmetric Equal v1,V2, V3 Tongue is in midline. No tongue fasciculation. Palate is upgoing bilaterally SCM and trapezius are full. Shoulder shrug intact Normal tone and strength. Normal coordination. Normal gait. Impression: ASSESSMENT/PLAN: 1. Intractable chronic migraine without aura and without status migrainosus - ICD9: 346.71, ICD10: G43.719 (primary diagnosis) 2. Medication overuse headache - ICD9: 339.3, ICD10: G44.40 Patient with continued migraine, has been ongoing for weeks to months. Has given Toradol in the emergency department, steroids, did prescribe for Depakote bridge last week but patient did not take it because her pharmacist notified her of the interaction between her amitriptyline and Depakote. Does appear there is an interaction but not severe, discussed the pros and cons of medication and patient would like to try to break her current headache. No new symptoms that would warrant additional workup. Has only been on Qulipta 60 mg for a few weeks, unsure if it is helping. Discussed this can take months to show benefits, notes Ubrelvy is a very effective abortive but she runs out of it every month. Also takes ibuprofen and naproxen, although has history of ulcers, so there is likely medication overuse headache contributing as well. Patient repetitively asking for pain medication for headache, discussed this would not be helpful in this situation. Has appointment with GI coming up in the next few weeks, is on amitriptyline 100 mg, previously started by neurology in the past. Discussed this is likely contributing to gastroparesis as well but as this is treating her headaches, discussed concern with decreasing this as it may worsen her headaches. Patient elects to continue his medication and follow-up with GI in the next few weeks but requesting [facility] be sent to [facility]. Additionally, discussed Botox injections as well but patient deferring. Discussed follow-up and consult with the headache clinic and patient is amenable. Consult was placed. Will have patient follow-up as needed. Plan: All options for treatment discussed. Preventative: Qulipta 60 mg, amitriptyline 100 mg Abortive: Ubrelvy Depakote bridge Follow-up: PRN I spent a total of 30 minutes on the date of the service which included preparing to see the patient, [id number] patient care, completing clinical documentation, obtaining and/or reviewing separately obtained history, performing a medically appropriate examination, counseling and educating the patient/family/caregiver, and ordering medications, tests, or procedures. Renetta Dee PA-C General Neurology [address] [place]. [address] Appointment: [phone] documented in this encounter [facility] 11-22-2024 History and physical note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 is a free website that provides teaching [...] aheadache flare prior to the 3 month rogerio is unlikely to change anything, and unfortunately [...] and will be handling your phone calls, [facility] Messages and inquiries, if any. Unless explicitly told otherwise at the time of your office visit, your study results and ensuing treatment plans will be released via [facility] and discussed during your follow-up appointment. [facility]: Please ask the schedulers to give you an activation code. The main way of communication isby [facility] rather than phone lines, so if you have not signed up, please do so. [facility] is also theway that you can review your labs and testing. We are not able to contact everyone to tell them results are normal. If you do not hear back from us regarding testing you have had, it should be considered normal or within normal range. If you have any questions about the results, you are free to message us. Liztichart is meant for simple questions regarding medications, possible side effects, or other simplestraight forward questions in limited sentences, rather than multiple paragraphs of discussion. Liztichart is not meant for, or efficient for [...] do not comment on most testing on Fliqzhart in a message or commentary unless there [...] you with this process. documented in this encounterKindred Hospital [facility]02-05-2025 NoteHNO ID: [id number] Author: RENETTA DEE PA-C Service: ? Author Type: Physician Wax Pumper Type: Progress Notes Filed: 04/27/2024 09:19 Note Text: Neurology Outpatient Clinic Date: April 27, 2024 Patient Name: Napoleon Valles Referring physician: SELF Primary physician: Hoda Smith [address] [place] [id number] Reason for Evaluation: Headaches Subjective HPI Napoleon Valles is a 28 year old female with history of osteogenesis imperfecta, migraine who presents for evaluation of headaches. Dr. Hoda Smith, HARRY is the PCP. Chart review: Had a baby last summer/fall. Followed by neuro at outside clinic, last seen last week. FLANAGAN started after traumatic intracranial hemorrhage when she [...] osteogenesis imperfecta. Notes that has been taking okue-tyb-jqusegc medications almost daily because she wants out [...] once daily. atogepant (QULIPTA (more content not included)...[facility] 04-27-2024 History of Present illness Narrative* Renetta Dee PA-C - 04/27/2024 8:21 AM EST Images from the original note were not included. Neurology Outpatient Clinic Date: April 27, 2024 Patient Name: Napoleon Valles Referring physician: SELF Primary physician: Hoda Smith [address] [place] [address] Reason for Evaluation: Headaches Subjective HPI Napoleon Valles is a 28 year old female with history of osteogenesis imperfecta, migraine who presents for evaluation of headaches. Dr. Hoda Smith, SKIDDER is the PCP. Chart review: Had a baby last summer/fall. Followed by neuro at outside clinic, last seen last week. FLANAGAN started after traumatic intracranial hemorrhage when she [...] osteogenesis imperfecta. Notes that has been taking bcso-gdh-wntfljq medic ations almost daily because she wants [...] MIST) 0.65 % nasal spray Use 1 Milton in the nose every 6 hours as [...] 2/4 Coordination: finger-to- nose-finger intact bilaterally and sfer-xc-nsbs intact bilaterally. Gait: Patient's gait is normal [...] of osteogenesis imperfecta. Has been following with [place] neurology, has tried and failed multiple medications for her migraines but notes her headaches have steadily increased. Notes almost daily headaches, described as holocephalic and associated with nausea,moderate to severe in severity. No photophobia, phonophobia, or autonomic features. Does take aoqulkznx-shv-xolwzmc medications when she runs out of Ubrelvy [...] which included preparing to see the patient, juso-qb-pxau patient care, completing clinical documentation, obtaining and/or reviewing separately obtained history, performing a medically appropriate examination, counseling and educating the pat ient/family/caregiver, and ordering medications, tests, or procedures. Renetta Dee PA-C [facility] This document has been created with the use of voice recognition technology. It may contain inaccuracies: (e.g. misspellings, inaccurate syntax or word sense) that have escaped review. documented in this encounterKindred Hospital Dayton01-29-2025 Evaluation note* Diagnosis Onset Date Resolution Status Admit Date Pelvic floor dysfunction acute April 20, 2024 8:17am Migraine headache chronic April 20, 2024 8:17am Vaginal discharge deleted April 20, 2024 8:17am Migraine headache chronic April 21, 2024 8:18am Breakthrough bleeding on dep o provera acute May 02 025 8:26am Contraception management resolved May 02, 2024 8:26am Yeast infection deleted May 18, 2024 8:01am Breakthrough bleeding on dep o provera acute June 23, 2024 1:34pm Urinary frequency resolved June 232024 1:34pm Vaginal pain resolved June 23, 025 1:34pm Breakthrough bleeding on dep o provera acute June 29, 2024 11:23am Levator spasm acute July 25 10:43am Vaginal discharge acute July 10:43am [facility] Work Phone: 1(157) 736-484901-29-2025 Evaluation note* Diagnosis Onset Date Resolution Status [...] 08 10:14am Vaginal discharge acute July 10:14am [facility] Work Phone: 1(897) 333-505901-29-2025 Evaluation note* Diagnosis Onset Date Resolution Status [...] July 10:14am Constipation inactive August 16 7:46am [facility] Work Phone: 1(415) 343-939712-09-2024 Evaluation note* Diagnosis Onset Date Resolution Status [...] 1:34pm Vaginal pain acute June 23 1:34pm [facility] Work Phone: 1(933) 171-160611-20-2024 Evaluation note* Diagnosis Onset Date Resolution Status [...] Yeast infection acute May 18, 2024 8:01am [facility] Work Phone: 1(402) 407-479904-05-2024 Telephone encounter Note* Telephone Encounter - Jodi [...] yellow, green, ware) Protocols used: - Vaginal Iyprgvvxd-NRYAI-YJ [facility] [id number] Miscellaneous Notes* Telephone Encounter - Jodi No RN - 06/26/2023 9:25 AM EDT S: Patient spoke with [facility] nurse regarding vaginal discharge. B: Onset of [...] yellow, green, ware) Protocols used: - Vaginal Vrmsrlwon-TYFRS-TK * Telephone Encounter - Hoda Rogers RN - 06/25/2023 1:57 PM EDT S: Patient spoke with [facility] nurse regarding 24 weeks; thick johnson/white discharge with odor and burning B: Onset of symptoms/concern few days A: Patient endorses thick, odorous, johnson/white vaginal discharge with itching. Denies abdominal pain, fever, bleeding, redness, swelling, change in movement, or open areas. Patient lives in [place] and has been managed my [facility] for her . She is wanting to be seen stating the UrgentCare near her won't treat her since she is . She is requesting [place] office. R: Offered soonest available at [facility] but patient declined stating those offices are almost 2 hours from her. Please follow up with patient regarding scheduling needs/concerns as nothing available in the near future. Patient requesting [place] office. Patient educated on s/s to call back and report. Patient understands care advice. No further needs at this time. Patient instructed to callback with new or worsening symptoms. Reason for Disposition Abnormal color vaginal discharge (i.e., yellow, green, ware) Protocols used: - Vaginal Jplkaygiw-HNTDL-MH documented in this encounterSACMC Healthcare [id number] Telephone encounter Note* Telephone Encounter - Debbie Reynaga - 06/26/2023 8:58 AM EDT Name of Caller: Napoleon Contact Reason for Appointment: Pt called and spoke with a nurse for vaginal discharge and odor with burning. Pt called back and asked for an appointment with Dr. Garcia. Pt is currently and has care outside of [facility]. Dr. Garcia does not see OB patients. Pt was advised she could see Dr. Garcia as soon as she delivered. Spoke with backline and was told to advise Pt to call her current OB to make an appointment. [facility] does not have any of her records. Pt was told she could transfer care but pt declined. Office Name: [place] [facility] [id number] Miscellaneous Notes* Telephone Encounter - Debbie Reynaga - 06/26/2023 8:58 AM EDT Name of Caller: Napoleon Contact Reason for Appointment: Pt called and spoke with a nurse for vaginal discharge and odor with burning. Pt called back and asked for an appointment with Dr. Garcia. Pt is currently and has care outside of [facility]. Dr. Garcia does not see OB patients. Pt was advised she could see Dr. Garcia as soon as she delivered. Spoke with backline and was told to advise Pt to call her current OB to make an appointment. [facility] does not have any of her records. Pt was told she could transfer care but pt declined. Office Name: [place] documented in this encounterSACMC Healthcare [id number] Telephone encounter Note* Telephone Encounter - Hoda Rogers RN - 06/25/2023 1:57 PM EDT S: Patient spoke with [facility] nurse regarding 24 weeks; thick johnson/white discharge with odor and burning B: Onset of symptoms/concern few days A: Patient endorses thick, odorous, johnson/white vaginal discharge with itching. Denies abdominal pain, fever, bleeding, redness, swelling, change in movement, or open areas. Patient lives in [place] and has been managed my [facility] for her . She is wanting to be seen stating the UrgentCare near her won't treat her since she is . She is requesting [place] office. R: Offered soonest available at [facility] and [facility] but patient declined stating those offices are almost 2 hours from her. Please follow up with patient regarding scheduling needs/concerns as nothing available in the near future. Patient requesting [place] office. Patient educated on s/s to call back and report. Patient understands care advice. No further needs at this time. Patient instructed to callback with new or worsening symptoms. Reason for Disposition Abnormal color vaginal discharge (i.e., yellow, green, ware) Protocols used: - Vaginal Uxbcvuual-MASZM-BC [facility] [id number] Telephone encounter Note* Telephone Encounter - Petra Amaya - 06/25/2023 10:09 AM EDT Lm for pt to call [facility] per web request [facility] [id number] Miscellaneous Notes* Telephone Encounter - Petra Amaya - 06/25/2023 10:09 AM EDT Lm for pt to call [facility] per web request documented in this encounterSACMC Healthcare [id number] Progress note Author Natasha Correia [facility] May 28, 2023 11:22am Note Date/Time May 28, 2023 11:2 1am [facility] Medical Records Department [address] [place] [id number] OB Triage Progress Note 05/28/23 1119 MR#: [id number] Acct: [id number] Name: NAPOLEON WILLIS Rep #:[id number] : 1995 27 From: Natasha quinones MD PCP: HARI Dimas Status: REG CLI Y DOS: Location: [place] [address] Progress Notes Date of Service: 05/28/23 Progress [...] Lymph % (Auto) 14.4 L (19-41) % [place] % (Auto) 6.0 (0-10) % Eos % (Auto) 1.4 (0-5) % Baso % (Auto) 0.6 (0-1) % Absolute Neuts (auto) 7.2 (2.0-7.7) X10^3/uL Absolute Lymphs (auto) 1.36 (0.83-4.51) X10^3/uL Nucleated RBC % 0 (0-5) % Fibrinogen 475 H (203-444) mg/dl 05/28/23 1122 <Electronically signed by Natasha cali MD> Date _ Natasha Correia MD Cosigner Signature (if applicable): Date CC: INTERNATIONAL SALES REPRESENTATIVE-C INTERNATIONAL SALES REPRESENTATIVE. Hoda Smith; Dr. Natasha Correia MD ~ Signed [facility] Work Phone: 1(274) 191-851902-16-2024 Note. MICRO - Microbiology PROCEDURE: Affirm Pathogens [...] Locations *1: This test was performed at: [address], [address] , [facility] ([place])03-09-2023 Note. MICRO - Microbiology PROCEDURE: Culture Wound [...] Locations *1: This test was performed at: [address], [address] , [facility]01-27-2023 History of Present illness Narrative* Janet Garcia MD - 01/27/2023 9:30 AM EST CC: Chief Complaint Patient presents with Vaginal Pain HPI: 27 y.o. No obstetric history on file. Here with vestibular burning Started 2 weeks ago. She first went to urgent care, given Rx fluconazole. No relief Went to her [facility] in [place], vaginal culture + E. Coli- Rx Augmentin. [...] nourished, no acute distress RESP: normal effort [employer]: EXTERNAL: Groin: normal skin color and texture [...] weeks, also use vaseline. documented in this [facility]11-02-2023 Telephone encounter Note* Telephone Encounter - Charity Thapa RN - 01/22/2023 2:51 PM EDT S: Patient spoke with [facility] nurse regarding vaginal burning B: Onset of symptoms/concern >2 weeks A: Symptoms started 2 1/2 weeks ago, was seen, prescribed Amoxicillin, on day 6, states she had e.coli. Now endorsing pelvic pain, constant vaginal burning. Feels slightly nauseated. Denies: fever, chills, discharge, odor, bleeding, burning with urination. Patient has seen Dr. Garcia in the past. Lives in [place] so would like appointment in closest office if possible. R: Patient declined sooner appointment this week due to scheduling conflicts and location. Called the Pelvic Health clinic at [facility] and spoke with OK to schedule patient in new patient slot at 9:30 and change to office visit. Address of office verified. Patient understands care advice. No further needs at this time. Patient instructed to call back with new or worsening symptoms. Reason for Disposition Patient wants to be seen Protocols used: Vaginal Mjvkywgt-EYZAP-AS [facility] [id number] Miscellaneous Notes* Telephone Encounter - Charity Thapa [...] burning with urination. Patient has seen Dr. Garcia in the past. Lives in [place] so would like appointment in closest office if possible. R: Patient declined sooner appointment this week due to scheduling conflicts and location. Called the Pelvic Health clinic at [facility] and spoke with OK to schedule patient in new patient slot at 9:30 and change to office visit. Address of office verified. Patient understands care advice. No further needs at this time. Patient instructed to call back with new or worsening symptoms. Reason for Disposition Patient wants to be seen Protocols used: Vaginal Xqvujfza-YYRLK-LJ documented in this [facility]08-30-2023 Note. MICRO - Microbiology PROCEDURE: Affirm Pathogens [...] Locations *1: This test was performed at: [facility], [address] [place] [address], [address]- , [facility] ([place]07-12-2022 Instructions* Patient Instructions* Hoda Lewis APRN.CNP - [...] pillows when lying down. documented in this encounterKindred Hospital Dayton04-22-2023 History of Present illness Narrative* Hoda Lewis [...] is provided by the patient. No language arts teacher was used. Chest Pain This is a [...] no CHF, no DVT, no Marfan's syndrome,no [place] and no strokes. Procedure history is negative [...] MIST) 0.65 % nasal spray Use 1 Milton in the nose every 6 hours as [...] wall pain No red flags Hoda Lewis APRN.HARRY documented in this encounterKindred Hospital Dayton04-22-2023 History of Present illness Narrative* Jennyfer Springer [...] 12, 2022 9:15 AM documented in this encounterKindred Hospital Dayton12-12-2022 Hospital Discharge instructions Patient Education 03/03/2022 19:34:43 [...] the electrical activity of the heart. ?Ambulatory voice over announcer. This records your heartbeats for 24 hours or more. You may be referred to a ultrasound applications specialist (industrial technology teacher). How is this treated? Treatment for this [...] to keep your urine pale yellow. Take kmrw-yio-brhcckv and prescription medicines only as told by [...] 04/16/2005 Document Revised: 04/28/2018 Document Reviewed: 04/28/2018 Leaders2020 Patient Education 2020 Leaders[employer] Inc. Follow Up Care 03/02/2022 04:38:23 With:AYLIN GUERRA MD Address: [address] [place] [address] [facility] [place] [phone]- When:1-2 days Comments:call to see is follow up is needed With:BERYL MCMILLAN DO Address: [address] [place] [address] [address] [place] [phone] When:1-2 days Comments:Follow-up as needed [facility] 12-12-2022 Note Discharge Instructions Thank you for allowing [facility] to assist you with your healthcare needs. The following is importantdischarge information regarding your hospital visit. Your Care Team BERYL MCMILLAN DO What to do next Follow Up Appointments Follow Up with AYLIN GUERRA MD When Within 1-2 days Why: call to see is follow up is needed Where: [address] [facility] [address] [facility] [place] [address]- Follow Up with BERYL MCMILLAN DO When Within 1-2 days Why: Follow-up as needed Where: [address] [place] [address] [address] [place] [phone] The Following Activity and Diet Have Been [...] for Headache Duration: 7 Days Pickup at [facility] 1199 New ondansetron (Zofran 4 mg oral tablet) 1 tab(s) by mouth Every 8 hours as needed for Nausea/Vomiting Duration: 5 Days Pickup at [facility] 1724 New propranolol (propranolol 60 mg oral capsule, extended release) 1 cap by mouth Once a day Duration: 30 Days Pickup at [facility] 1724 Unchanged amitriptyline (amitriptyline 25 mg oral tablet) 1 tab(s) by mouth Daily at bedtime Unchanged pantoprazole (Protonix 40 mg oral enteric coated tablet) 1 tab(s) by mouth Once a day Unchanged ubrogepant (Ubrelvy 100 mg oral tablet) 1 tab(s) by mouth Once as needed for as needed for migraine headache may repeat dose in 2 hours if needed Pharmacy Information [facility] 1724: [address] [place], [place] [phone] What How Much When Comments Stop Taking [...] electrical activity of the heart. ? Ambulatory voice over announcer. This records your heartbeats for 24 hours or more. You may be referred to a ultrasound applications specialist (industrial technology teacher). How is this treated? Treatment for this [...] to keep your urine pale yellow. Take hnyp-nri-mydntlg and prescription medicines only as told by [...] Document Reviewed: 04/28/2018 Elsevier Patient Education 2020 Elsevier Inc. Additional Information VACCINATE! IT SAVES LIVES! Members of the community who have not yet received the COVID-19 vaccine and would like to receive it can visit one of [facility] vaccine clinics. There are many vaccine clinic locations within the [facility]. For locations and available times, please visit [email or web address]/. It is important to note that some COVID mobile vaccine clinics are held outdoors and may be canceled in rainy or stormy conditions. To learn more about pediatric vaccinations (ages 5-11), we invite you to visit the [facility] webpage. https://www.akronAdvanced Biomedical Technologiess.org/pages/6939-Efmnw-Jfmsgaqvsku-Nxssqppgxt-Wrjti-Yvk stions.htmlTo learn more about the COVID-19 vaccine, we invite you to visit the [employer] website for a list of frequently asked questions. https://[employer]/assets/Gmtxprxd-jis-Dcmsexir/jyusz-Gkossmm-Zahwpahueu _Asked-Questions.pdf [facility] Patient Portal Access Instructions: Stay connected with your healthcare team and access your personal medical information anytime with the [facility] Patient Portal.If you would like a full copy of your medical records, please contact the [facility] Medical Records Department, Thursday through Thursday between 8a.m. and 4:30p.m. Please follow the directions below to access the portal: 1.Access the email account you provided upon registration to the hospital.2.Look for an invitation email from [facility].3.Open the email and access the invitation link: Accept Invitation to [facility]4.Fill in the required bell to create your account. Sign into www.[employer] with your username and password that you [...] will allow to register on the [facility] Patient Portal for access to your information. You can also access the [facility] Patient Portal on the [facility] windy. Simply click on Health Records under [employer] and then click on the [employer] logo. HOW TO SAFELY DISPOSE OF PRESCRIPTION [...] Call your local pharmacy or go to [email or web address] to find one close to you.3.Make use of household items: Use cat litter or old coffee grounds to dispose medications if other options arenot available. Mix your drugs with these household products, seal them in an airtight container andthrow it into the garbage. Call [facility]: [phone] to be sure your drugs can be [...] reviewed and explained to me and I,NAPOLEON WILLIS understand my current condition and have read and understand these discharge instructions. I have received a written copy of the plan/instructions. If I have questions, I am aware that I should contact my doctor. Patient/Plate Worker Helper Signature: Date/Time: Relationship to Patient: Witness Name/Signature: Date/Time: [facility] [id number] Discharge summary Date of Service 03/03/2022 Discharge Diagnosis Migraine, unspecified, not intractable, without status migrainosus (G43.909 - ICD-10-CM) Osteogenesis imperfecta (Q78.0 - ICD-10-CM) Tachycardia, unspecified (R00.0 - ICD-10-CM) Scoliosis, unspecified (M41.9 - ICD-10-CM) Vomiting, unspecified (R11.10 - ICD-10-CM) Additional Orders: Ordered: APAP/butalbital/caffeine 325-50-40 mg oral tablet (Fioricet),Dose = 1 tab(s), Oral, q8h, PRN Headache, X 7 day(s), # 5 tab(s), 0 Refill(s), Pharmacy: [id number], 149.9, cm, 03/02/22 [...] cap(s), 0 Refill(s), 03/08/22 19:03:00 EST, Pharmacy: [id number], 149.9, cm, 03/02/22 4:46:00 EST, Height Ordered: propranolol 60 mg oral capsule, extended release,Dose : 60 mg = 1 cap(s), Oral, qDay, # 30cap(s), 0 Refill(s), Pharmacy: [id number], 149.9, cm, 03/02/22 [...] THERESA WISE MD on 03/03/2022 07:12 PM [id number] Note Date of Service 03/03/2022 Chief Complaint [...] THERESA WISE MD on 03/03/2022 06:46 PM [facility] [id number] Cardiology Consult note Date of Service 03/03/2022 Reason for Consultation Persistent tachycardia Referring Physician Dr. Ch History of Present Illness This is a 26-year-old Mongolian-speaking female with PMH significant for osteogenesis imperfecta, migraine headaches, scoliosis. She presented to [facility] with chief concern of migraine headaches, nausea [...] felt improved tachycardia. She was transferred to [place] for cardiology opinion. Telemetry monitoring reviewed on floor significant for sinus tachycardia with rates as high as [id number]. At the time of my evaluation, patient's [...] imperfecta Scoliosis Plan: This is a 26-year-old Mongolian-speaking female with PMH significant for osteogenesis imperfecta, migraine headaches, scoliosis. She presented to [facility] with concern for migraine headaches, nausea and vomiting. At the time of her discharge she was found to have persistent sinus tachycardia despite IV hydration and Ativan therapy, and was transferred to [place] for cardiology opinion.Patient denies having any chest [...] YARI MENENDEZ MD on 03/03/2022 02:43 PM [facility] [id number] Cardiology Consult note Date of Service 03/03/2022 Reason for Consultation Persistent tachycardia Referring Physician Dr. Ch History of Present Illness This is a 26-year-old Mongolian-speaking female with PMH significant for osteogenesis imperfecta, migraine headaches, scoliosis. She presented to [facility] with chief concern of migraine headaches, nausea [...] felt improved tachycardia. She was transferred to [place] for cardiology opinion. Telemetry monitoring reviewed on floor significant for sinus tachycardia with rates as high as [id number]. At the time of my evaluation, patient's [...] imperfecta Scoliosis Plan: This is a 26-year-old Mongolian-speaking female with PMH significant for osteogenesis imperfecta, migraine headaches, scoliosis. She presented to [facility] with concern for migraine headaches, nausea and vomiting. At the time of her discharge she was found to have persistent sinus tachycardia despite IV hydration and Ativan therapy, and was transferred to [place] for cardiology opinion.Patient denies having any chest [...] YARI MENENDEZ MD on 03/03/2022 02:43 PM [facility] [id number] Evaluation + Plan noteExtracted from: Title:History and [...] every 8 hours Note was written using [employer] nut tightener software. Some of the meaning of the words and sentences might have changed during nut tightener, if there was ever some confusion about the meaning of some sentences, please do not hesitate to contact me. [facility] 12-11-2022 Note Date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 09/12/24 1211 <Electronically signed by Sada NORIEGA> Date _ Sada NORIEGA Cosigner Signature: Date (if applicable) CC: ~ [facility] Work Phone: Reason for referral (narrative)No reason for referral information availableWMercy Health [facility] Work Phone: Summary Purpose Family History No Family History Records Found Relationship Condition Age at Onset Recorded Date/T jun mother Transient ischemic attack Unknown Relationship Condition Age at Onset Recorded Date/T jun mother Transient ischemic attack Unknown Depression Unknown Anxiety Unknown Arthritis Unknown Hypertension Unknown Advance Directives No Advanced Directives Records Found Advance Directive Response Recorded Date/ Time Living Will No May 30, 2020 7:41pm Power of Corporate Trust Officer No May 30 7:41pm Advance Directive Response Recorded Date/ Time Living Will No February 26 8:33am Power of Corporate Trust Officer No February 26, 2022 8:33am Advance Directive Response Recorded Date/ Time Living Will No April 03 4:51pm Power of Corporate Trust Officer No April 03, 2022 4:51pm Advance Directive Response Recorded Date/ Time Living Will No April 04 12:12am Power of Corporate Trust Officer No April 04, 2022 12:12am Advance Directive Response Recorded Date/ Time Living Will No February 05, 023 2:47pm Power of Corporate Trust Officer No February 05, 2023 2:47pm Advance Directive Response Recorded Date/ Time Living Will No April 07 8:53am Power of Corporate Trust Officer No April 07, 2023 8:53am Advance Directive Response Recorded Date/ Time Living Will No May 13, 2 024 2:49pm Power of Corporate Trust Officer No May 13, 2023 2:49pm Advance Directive Response Recorded Date/ Time Living Will No May 13 024 3:49pm Power of Corporate Trust Officer No May 13, 2023 3:49pm Advance Directive Response Recorded Date/ Time Living Will No June 10, 2023 9:24am Power of Corporate Trust Officer No June 09 9:24am Advance Directive Response Recorded Date/ Time Living Will No July 09, 2023 9:25am Power of Corporate Trust Officer No July 08 9:25am Advance Directive Response Recorded Date/ Time Do you have a [facility] Power of Corporate Trust Officer? 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 depo injection Discuss BC [...] 2024 8 :19am Pelvic floor dysfunction April 20, 8:17am Migraine headache April 20, 2024 8 [...] 8 :19am Pelvic floor dysfunction April 20 8:17am Migraine [...] pain and burning, see note July 10:43am Reason for Visit Admit Date Pelvic [...] Admit Date Pelvic floor dysfunction April 20, 8:17am Migraine headache April 20, 2024 8 :17am Vaginal discharge April 20, 2024 8 :17am Migraine headache April 21, 2024 8 :18am Breakthrough bleeding on depo provera Fe bruary 2024 8:26am Contraception management May 02, 2024 8:26am Yeast infection May 18, 2024 8:01am Breakthrough bleeding on depo provera Ap [facility] 2024 1:34pm Urinary frequency June 23, 2024 [...] pain and burning, see note July 5t h2024 10:43am Constipation July 28, 2024 8:12am 2 wk F/U August 08, 2024 10:14 am CHRONIC CONSTIPATION August 16, 2024 7:46 am Reason for Visit Admit Date Pelvic floor dysfunction April 20, 2 025 8:17am Migraine headache April 20, 2024 8 :17am Vaginal discharge April 20, 2024 8 :17am Migraine headache April 21, 2024 8 :18am Breakthrough bleeding on depo provera Fe bru2024 8:26am Contraception management May 02, 2024 8:26am [...] 7:46 am Vaginal irritation and pain September 12 11:36am 1 M FU September 16, 2024 [...] 7:46 am Vaginal irritation and pain September 12 11:36am 1 M FU September 16, 2024 7:43 am Breast Pain and Nausea October 03, 2024 2 :31pm Reason for Visit Admit Date Breakthrough bleeding on depo provera Ap 2024 [...] Vaginal discharge October 03, 2024 2:31 pm Chief Complaint Admit Date Vaginal bleeding or hematuria June 23, 2024 1:34pm fu vaginal burning, discuss changing OCP June 29, 2024 11:23am Pelvic pain and burning, see note July 10:43am Constipation July 28, 2024 8:12am 2 wk F/U August 08, 2024 10:14 am CHRONIC CONSTIPATION August 16, 2024 7:46 am Vaginal irritation and pain September 12 025 11:36am 1 M FU September 16, 2024 7:43 am Breast Pain and Nausea October 03, 2024 2 :31pm Constipation October 06, 2024 1:45 pm Reason for Visit Admit Date Breakthrough bleeding [...] Vaginal discharge October 03, 2024 2:31 pm Irritable bowel syndrome with constipati on October 06, 2024 1:45pm Chief Complaint Admit Date Vaginal bleeding or hematuria June 23, 2024 1:34pm fu vaginal burning, discuss changing OCP June 29, 2024 11:23am Pelvic pain and burning, see note July 10:43am Constipation July 28, 2024 8:12am 2 wk F/U August 08, 2024 10:14 am CHRONIC CONSTIPATION August 16, 2024 7:46 am Vaginal irritation and pain September 12 025 11:36am 1 M FU September 16, 2024 7:43 am Breast Pain and Nausea October 03, 2024 2 :31pm Constipation October 06, 2024 1:45 pm EORDERS October 06, 2024 2:39 pm Chief Complaint Admit Date fu vaginal burning, discuss changing OCP June 29, 2024 11:23am Pelvic pain and burning, see note July 10:43am Constipation July 28, 2024 8:12am 2 wk F/U August 08, 2024 10:14 am CHRONIC CONSTIPATION August 16, 2024 7:46 am Vaginal irritation and pain Deepika 23rd, 2 025 11:36am 1 M FU September 16, 2024 7:43 am Breast Pain and Nausea October 03, 2024 2 :31pm Constipation October 06, 2024 1:45 pm EORDERS October 06, 2024 2:39 pm Reason for Visit Admit Date Breakthrough bleeding [...] Vaginal discharge October 03, 2024 2:31 pm Irritable bowel syndrome with constipati on October 06, 2024 1:45pm Chief Complaint Admit Date Pelvic pain and burning, see note July 10:43am Constipation July 28, 2024 8:12am 2 wk F/U August 08, 2024 10:14 am CHRONIC CONSTIPATION August 16, 2024 7:46 am Vaginal irritation and pain September 12, 2 025 11:36am 1 M FU September 16, 2024 7:43 am Breast Pain and Nausea October 03, 2024 2 :31pm Constipation October 06, 2024 1:45 pm EORDERS October 06, 2024 2:39 pm Reason for Visit Admit Date Levator spasm July 25, 2024 10:43a m [...] Vaginal discharge October 03, 2024 2:31 pm Irritable bowel syndrome with constipati on October 06, 2024 1:45pm Chief Complaint Admit Date Pelvic pain and burning, see note July 10:43am Constipation July 28, 2024 8:12am 2 wk F/U August 08, 2024 10:14 am CHRONIC CONSTIPATION August 16, 2024 7:46 am Vaginal irritation and pain September 12 11:36am 1 M FU September 16, 2024 7:43 am Breast Pain and Nausea October 03, 2024 2 :31pm Constipation October 06, 2024 1:45 pm EORDERS October 06, 2024 2:39 pm yeast November 09, 2024 10 :28am Reason for Visit Admit Date Levator spasm July 25, 2024 10:43a m [...] Vaginal discharge October 03, 2024 2:31 pm Irritable bowel syndrome with constipati on October 06, 2024 1:45pm Vagina itching November 09, 2024 10 :28am Recurrent UTI November 09, 2024 10 :28am Reason for Visit Admit Date Levator spasm July 25, 2024 10:43a m [...] Vaginal discharge October 03, 2024 2:31 pm Irritable bowel syndrome with constipati on October 06, 2024 1:45pm Vagina itching November 09, 2024 10 :28am Recurrent UTI November 09, 2024 10 :28am Diarrhea November 22, 2024 12:42pm Chief Complaint Admit Date 2 wk F/U August 08, 2024 10:14 am CHRONIC CONSTIPATION August 16, 2024 7:46 am Vaginal irritation and pain September 12 11:36am 1 M FU September 16, 2024 7:43 am Breast Pain and Nausea October 03, 2024 2 :31pm Constipation October 06, 2024 1:45 pm EORDERS October 06, 2024 2:39 pm yeast November 09, 2024 10 :28am Reason for Visit Admit Date Abnormal weight gain August 08, 2024 10:1 [...] Vaginal discharge October 03, 2024 2:31 pm Irritable bowel syndrome with constipati on October 06, 2024 1:45pm Vagina itching November 09, 2024 10 :28am Recurrent UTI November 09, 2024 10 :28am Diarrhea November 22, 2024 12:42pm Chief Complaint Admit Date 2 wk F/U August 08, 2024 10:14 am CHRONIC CONSTIPATION August 16, 2024 7:46 am Vaginal irritation and pain September 12, 2 025 11:36am 1 M FU September 16, 2024 7:43 am Breast Pain and Nausea October 03, 2024 2 :31pm Constipation October 06, 2024 1:45 pm EORDERS October 06, 2024 2:39 pm yeast November 09, 2024 10 :28am 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) December 05, 2024 10:21am Reason for Visit Admit Date Abnormal weight gain August 08, 2024 10:1 [...] Vaginal discharge October 03, 2024 2:31 pm Irritable bowel syndrome with constipati on October 06, 2024 1:45pm Vagina itching November 09, 2024 10 :28am Recurrent UTI November 09, 2024 10 :28am Diarrhea November 22, 2024 12:42pm Encounter for routine gynecological exam ination December 05, 2024 10:21am Chief Complaint Admit Date CHRONIC CONSTIPATION August 16, 2024 7:46 am Vaginal irritation and pain September 12, 2 025 11:36am 1 M FU September 16, 2024 7:43 am Breast Pain and Nausea October 03, 2024 2 :31pm Constipation October 06, 2024 1:45 pm EORDERS October 06, 2024 2:39 pm yeast November 09, 2024 10 :28am 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) December 05, 2024 10:21am ORDER SCANNED December 05, 2024 4:12pm gastroparesis, CP December 06, 2024 10:12am new pt December 07, 2024 9:51am Reason for Visit Admit Date Constipation August 16, 2024 7:46a m Dysuria September 12, 2024 11:3 6am Pelvic floor dysfunction September 12, 2024 11:36am Urinary frequency September 12, 2024 11:3 6am Vaginal discharge September 12, 2024 11:3 6am Constipation September 16, 2024 7:43 am Galactorrhea October 03, 2024 2:31 pm Vaginal discharge October 03, 2024 2:31 pm Irritable bowel syndrome with constipati on October 06, 2024 1:45pm Vagina itching November 09, 2024 10 :28am Recurrent UTI November 09, 2024 10 :28am Diarrhea November 22, 2024 12:42pm Vaginal discharge December 05, 2024 10:21am Encounter for routine gynecological exam ination December 05, 2024 10:21am Chief Complaint Admit Date CHRONIC CONSTIPATION August 16, 2024 7:46 am Vaginal irritation and pain September 12 025 11:36am 1 M FU September 16, 2024 7:43 am Breast Pain and Nausea October 03, 2024 2 :31pm Constipation October 06, 2024 1:45 pm EORDERS October 06, 2024 2:39 pm yeast November 09, 2024 10 :28am 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) December 05, 2024 10:21am ORDER SCANNED December 05, 2024 4:12pm gastroparesis, CP December 06, 2024 10:12am new pt December 07, 2024 9:51am Test Result December 08, 2024 9:22am Chief Complaint Admit Date Vaginal irritation and pain September 12 025 11:36am 1 M FU September 16, 2024 7:43 am Breast Pain and Nausea October 03, 2024 2 :31pm Constipation October 06, 2024 1:45 pm EORDERS October 06, 2024 2:39 pm yeast November 09, 2024 10 :28am 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) December 05, 2024 10:21am ORDER SCANNED December 05, 2024 4:12pm gastroparesis, CP December 06, 2024 10:12am gastroparesis, CP December 06, 2024 11:46am new pt December 07, 2024 9:51am Test Result December 08, 2024 9:22am bladder instillation December 20 9:29am Reason for Visit Admit Date Dysuria September 12, 2024 11:3 6am Pelvic floor dysfunction September 12, 2024 11:36am Urinary frequency September 12, 2024 11:3 6am Vaginal discharge September 12, 2024 11:3 6am Constipation September 16, 2024 7:43 am Galactorrhea October 03, 2024 2:31 pm Vaginal discharge October 03, 2024 2:31 pm Irritable bowel syndrome with constipati on October 06, 2024 1:45pm Vagina itching November 09, 2024 10 :28am Recurrent UTI November 09, 2024 10 :28am Diarrhea November 22, 2024 12:42pm Vaginal discharge December 05, 2024 10:21am Encounter for routine gynecological exam ination December 05, 2024 10:21am Acute vaginitis December 07, 2024 9:51am Dyspareunia, female December 07, 2024 9:51am High-tone pelvic floor dysfunction Septe mber 2024 9:51am Nocturia December 07, 2024 9:51am Urge incontinence December 07, 2024 9:51am Urinary frequency December 07, 2024 9:51am Urinary tract infection December 07, 2024 9:51am Delayed gastric emptying December 08, 2024 9:22am Irritable bowel syndrome with constipati on December 08, 2024 9:22am Acute vaginitis December 20, 2024 9:29am Chief Complaint Admit Date Vaginal irritation and pain September 12 11:36am 1 M FU September 16, 2024 7:43 am Breast Pain and Nausea October 03, 2024 2 :31pm Constipation October 06, 2024 1:45 pm EORDERS October 06, 2024 2:39 pm yeast November 09, 2024 10 :28am 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) December 05, 2024 10:21am ORDER SCANNED December 05, 2024 4:12pm gastroparesis, CP December 06, 2024 10:12am gastroparesis, CP December 06, 2024 11:46am new pt December 07, 2024 9:51am Test Result December 08, 2024 9:22am bladder instillation December 20 9:29am bladder instillation December 27, 2024 8 :36am Reason for Visit Admit Date Dysuria September 12, 2024 11:3 6am Pelvic floor dysfunction September 12, 2024 11:36am Urinary frequency September 12, 2024 11:3 6am Vaginal discharge September 12, 2024 11:3 6am Constipation September 16, 2024 7:43 am Galactorrhea October 03, 2024 2:31 pm Vaginal discharge October 03, 2024 2:31 pm Irritable bowel syndrome with constipati on October 06, 2024 1:45pm Vagina itching November 09, 2024 10 :28am Recurrent UTI November 09, 2024 10 :28am Diarrhea November 22, 2024 12:42pm Vaginal discharge December 05, 2024 10:21am Encounter for routine gynecological exam ination December 05, 2024 10:21am Acute vaginitis December 07, 2024 9:51am Dyspareunia, female December 07, 2024 9:51am High-tone pelvic floor dysfunction [facility] 2024 9:51am Nocturia December 07, 2024 9:51am Urge incontinence December 07, 2024 9:51am Urinary frequency December 07, 2024 9:51am Urinary tract infection December 07, 2024 9:51am Delayed gastric emptying December 08, 2024 9:22am Irritable bowel syndrome with constipati on December 08, 2024 9:22am Acute vaginitis December 20, 2024 9:29am Dyspareunia, female December 20, 2024 9:29am High-tone pelvic floor [facility] 2024 9:29am Nocturia December 20, 2024 9:29am Urge incontinence December 20, 2024 9:29am Urinary frequency December 20, 2024 9:29am Urinary tract infection December 20, 2024 9:29am Urinary tract infection December 27 8:36am Reason for Referral Specialty Diagnoses / Procedures Referred By Roberto willams Referred To Contact Diagnoses Intractable chronic migraine without aura and without status migrainosus Renetta Dee PA-C [address] [place] [address] Referral ID Status Reason Start Date Expiration Date V isits Requested Visits Authorized [id number] Pending Review 1 1 Additional Source Comments INFORMATION SOURCE (unrecogn ized section and content) DATE CREATED AUTHOR 09/10/2017 [facility] DATE CREATED AUTHOR AUTHOR'S ORGANIZ ATION 12/13/2019 [facility] DATE CREATED AUTHOR AUTHOR'S ORGANIZ ATION 03/06/2020 [facility] DATE CREATED AUTHOR AUTHOR'S ORGANIZ ATION 03/09/2021 [facility] DATE CREATED AUTHOR AUTHOR'S ORGANIZ ATION 05/10/2023 [facility] ([place]) DATE CREATED AUTHOR AUTHOR'S ORGANIZ ATION 03/15/2024 [facility] DATE CREATED AUTHOR AUTHOR'S ORGANIZ ATION 11/28/2024 [facility] DATE CREATED AUTHOR AUTHOR'S ORGANIZ ATION 12/11/2024 [facility] DATE CREATED AUTHOR AUTHOR'S ORGANIZ ATION 12/29/2024 [facility] DATE CREATED AUTHOR AUTHOR'S ORGANIZ ATION 01/04/2025 [facility] Goals (unrecognized section and content) Goals [...] ion and content) Care Team Personnel Name: DEYANIRA BERYLAZAR Torres DO Member Role: Primary Care Physician Address: Address: [address] [place] [id number]- Care Team Related Persons Name: LESLI GAO Address: Home [address] [place] [address] Source Comments (unrecognize d section and content) In the event this informatio n is protected by the Federal Confidentiality of Alcohol and Drug Abuse Patient Records regulations: The Federal rules restrict any use of the information to criminally investigate or prosecute any alcohol or drug abuse patient.[facility] the event this information is protected by the Federal Confidentiality of Alcohol and Drug Abuse Patient Records regulations: The Federal rules restrict any use of the information to criminally investigate or prosecute any alcohol or drug abuse patient.[facility] the event this information is protected by the Federal Confidentiality of Alcohol and Drug Abuse Patient Records regulations: The Federal rules restrict any use of the information to criminally investigate or prosecute any alcohol or drug abuse patient.[facility] the event this information is protected by the Federal Confidentiality of Alcohol and Drug Abuse Patient Records regulations: The Federal rules restrict any use of the information to criminally investigate or prosecute any alcohol or drug abuse patient.[facility] the event this information is protected by the Federal Confidentiality of Alcohol and Drug Abuse Patient Records regulations: The Federal rules restrict any use of the information to criminally investigate or prosecute any alcohol or drug abuse patient.[facility] the event this information is protected by the Federal Confidentiality of Alcohol and Drug Abuse Patient Records regulations: The Federal rules restrict any use of the information to criminally investigate or prosecute any alcohol or drug abuse patient.[facility] Dayton[facility] the event this information is protected by the Federal Confidentiality of Alcohol and Drug Abuse Patient Records regulations: The Federal rules restrict any use of the information to criminally investigate or prosecute any alcohol or drug abuse patient.[facility] Dayton[facility] the event this information is protected by the Federal Confidentiality of Alcohol and Drug Abuse Patient Records regulations: The Federal rules restrict any use of the information to criminally investigate or prosecute any alcohol or drug abuse patient.[facility] Dayton[facility] the event this information is protected by the Federal Confidentiality of Alcohol and Drug Abuse Patient Records regulations: The Federal rules restrict any use of the information to criminally investigate or prosecute any alcohol or drug abuse patient.[facility] Dayton[facility] the event this information is protected by the Federal Confidentiality of Alcohol and Drug Abuse Patient Records regulations: The Federal rules restrict any use of the information to criminally investigate or prosecute any alcohol or drug abuse patient.[facility] Dayton[facility] the event this information is protected by the Federal Confidentiality of Alcohol and Drug Abuse Patient Records regulations: The Federal rules restrict any use of the information to criminally investigate or prosecute any alcohol or drug abuse patient.[facility] the event this information is protected by the Federal Confidentiality of Alcohol and Drug Abuse Patient Records regulations: The Federal rules restrict any use of the information to criminally investigate or prosecute any alcohol or drug abuse patient.[facility] DaytonIn the event this information is protected by the Federal Confidentiality of Alcohol and Drug Abuse Patient Records regulations: The Federal rules restrict any use of the information to criminally investigate or prosecute any alcohol or drug abuse patient.[facility] DaytonIn the event this information is protected by the Federal Confidentiality of Alcohol and Drug Abuse Patient Records regulations: The Federal rules restrict any use of the information to criminally investigate or prosecute any alcohol or drug abuse patient.[facility] DaytonIn the event this information is protected by the Federal Confidentiality of Alcohol and Drug Abuse Patient Records regulations: The Federal rules restrict any use of the information to criminally investigate or prosecute any alcohol or drug abuse patient.[facility] DaytonIn the event this information is protected by the Federal Confidentiality of Alcohol and Drug Abuse Patient Records regulations: The Federal rules restrict any use of the information to criminally investigate or prosecute any alcohol or drug abuse patient.[facility] DaytonIn the event this information is protected by the Federal Confidentiality of Alcohol and Drug Abuse Patient Records regulations: The Federal rules restrict any use of the information to criminally investigate or prosecute any alcohol or drug abuse patient.[facility] DaytonIn the event this information is protected by the Federal Confidentiality of Alcohol and Drug Abuse Patient Records regulations: The Federal rules restrict any use of the information to criminally investigate or prosecute any alcohol or drug abuse patient.[facility] DaytonIn the event this information is protected by the Federal Confidentiality of Alcohol and Drug Abuse Patient Records regulations: The Federal rules restrict any use of the information to criminally investigate or prosecute any alcohol or drug abuse patient.[facility] DaytonIn the event this information is protected by the Federal Confidentiality of Alcohol and Drug Abuse Patient Records regulations: The Federal rules restrict any use of the information to criminally investigate or prosecute any alcohol or drug abuse patient.[facility] DaytonIn the event this information is protected by the Federal Confidentiality of Alcohol and Drug Abuse Patient Records regulations: The Federal rules restrict any use of the information to criminally investigate or prosecute any alcohol or drug abuse patient.[facility] DaytonIn the event this information is protected by the Federal Confidentiality of Alcohol and Drug Abuse Patient Records regulations: The Federal rules restrict any use of the information to criminally investigate or prosecute any alcohol or drug abuse patient.[facility] Reason for Visit (unrecogniz ed section and [...] Reason Onset Date Comments Refill Request 09/07/2024 Reason Onset Date Comments Refill Request 10/14/2024 Reason Comments Follow Up Migraine for approx 12 days Reason Onset Date Comments Vaginal Pain 11/04/2024 Care Teams (unrecognized sec tion and content) Real Estate Sales Supervisor Relationship Specialty Start Date End Date Beryl Mcmillan DO [address] [place] [address] PCP - General Family Medicine 10/09/19 Real Estate Sales Supervisor Relationship Specialty [place] [address] [place] [phone] PCP - General Internal Medicine 02/10/22 Real Estate Sales Supervisor Relationship Specialty Start [place] [address] [place] [phone] PCP - General Internal Medicine 02/10/22 Team Status: Active Member Role Status Dates Анна Goldstein INTERNATIONAL SALES REPRESENTATIVE, INTERNATIONAL SALES REPRESENTATIVE-C Family Provider Active Dr. Beryl Mcmillan DO Primary Care Provider Active Team Status: Inactive Member Role Status Dates Dr. Beryl Mcmillan DO Primary Care Provider, Referr ing Provider Active Tonia Iverson INTERNATIONAL SALES REPRESENTATIVE, INTERNATIONAL SALES REPRESENTATIVE-C Attending Provider Active Team Status: Inactive Member Role Status Dates Dr. Beryl Mcmillan DO Primary Care Provider Active Tonia Iverson INTERNATIONAL SALES REPRESENTATIVE, INTERNATIONAL SALES REPRESENTATIVE-C Attending Provider Active Team Status: Inactive Member Role Status Dates Dr. Beryl Mcmillan DO Primary Care Provider Active Dr. Natasha Correia MD Attending Provider, Referr ing Provider Active Team Status: Active Member Role Status Dates Анна Goldstein INTERNATIONAL SALES REPRESENTATIVE, INTERNATIONAL SALES REPRESENTATIVE-C Family Provider Active INTERNATIONAL SALES REPRESENTATIVE. Hoda Gleasonr , INTERNATIONAL SALES REPRESENTATIVE-C Primary Care Provider Activ e Team Status: Inactive Member Role Status Dates Dr. Natasha Correia MD Attending Provider Active INTERNATIONAL SALES REPRESENTATIVE. Hoda Ungerer , INTERNATIONAL SALES REPRESENTATIVE-C Primary Care Provider, Refe rring Provider Active Team Status: Inactive Member Role Status Dates INTERNATIONAL SALES REPRESENTATIVE. Hoda Smith , INTERNATIONAL SALES REPRESENTATIVE-C Primary Care Provider Activ e Dr. Natasha Correia MD Attending Provider, Referr ing Provider Active Team Status: Inactive Member Role Status Dates INTERNATIONAL SALES REPRESENTATIVE. Hoda Ungerer , INTERNATIONAL SALES REPRESENTATIVE-C Primary Care Provider, Refe rring Provider Active Dr. Lenka Thomas DO Attending Provider Activ e Team Status: Inactive Member Role Status Dates INTERNATIONAL SALES REPRESENTATIVE. Hoda Ungerer , INTERNATIONAL SALES REPRESENTATIVE-C Primary Care Provider, Refe rring Provider Active Felicita Baron CNM Attending Provider Active Team Status: Inactive Member Role Status Dates INTERNATIONAL SALES REPRESENTATIVE. Hoadosiel Gleasonr , INTERNATIONAL SALES REPRESENTATIVE-C Primary Care Provider Activ e Felicita Baron CNM Attending Provider Active Team Status: Inactive Member Role Status Dates INTERNATIONAL SALES REPRESENTATIVE. Hoda Courtneyerer , INTERNATIONAL SALES REPRESENTATIVE-C Primary Care Provider, Refe rring Provider Active Tonia Iverson INTERNATIONAL SALES REPRESENTATIVE, INTERNATIONAL SALES REPRESENTATIVE-C Attending Provider Active Team Status: Inactive Member Role Status Dates INTERNATIONAL SALES REPRESENTATIVE. Hoda Ungerer , INTERNATIONAL SALES REPRESENTATIVE-C Primary Care Provider, Refe rring Provider Active Portia Garcia CNM Attending Provider Active Team Status: Inactive Member Role Status Dates INTERNATIONAL SALES REPRESENTATIVE. Hodaosiel Gleasonr , INTERNATIONAL SALES REPRESENTATIVE-C Primary Care Provider Activ e Portia Garcia CNM Attending Provider, Referring Pro vider Active Team Status: Active Member Role Status Dates INTERNATIONAL SALES REPRESENTATIVE. Hoda Gleasonr , INTERNATIONAL SALES REPRESENTATIVE-C Primary Care Provider Activ e Dr. Natasha Correia MD Attending Pr ovider, Referring Provider, Other Provider Active Team Status: Inactive Member Role Status Dates INTERNATIONAL SALES REPRESENTATIVE. Hoda Gleasonr , INTERNATIONAL SALES REPRESENTATIVE-C Primary Care Provider Activ e Dr. Lenka Thomas DO Attending Provider, Refe rring Provider Active Real Estate Sales Supervisor Relationship Specialty Start Date End Date Lenka Valle DO [address] [phone] PCP - General Internal Medicine 02/10/22 Real Estate Sales Supervisor Relationship Specialty Start Date End Date Lenka Valle DO [address] [phone] PCP - General Internal Medicine 02/10/22 Real Estate Sales Supervisor Relationship Specialty Start Date End Date Lenka Valle DO [address] [phone] PCP - General Internal Medicine 02/10/22 Team Status: Active Member Role Status Dates INTERNATIONAL SALES REPRESENTATIVE. Hoda Smith , INTERNATIONAL SALES REPRESENTATIVE-C Primary Care Provider Elvira Garcia CNM Attending Provider, Referring Pro vider Active Real Estate Sales Supervisor Relationship Specialty Start Date End Date Beryl Mcmillan DO [address] [place] [address] PCP - General Family Medicine 10/09/19 Real Estate Sales Supervisor Relationship Specialty Start Date End Date Hoda Smith, PLUMBER GASFITTER-SKIDDER [address] [facility] [address] [place] [address] PCP - General Family Medicine 03/30/23 Irma Coronel [facility] [place], [place] [id number] Genetic Counselor Genetics 07/08/16 Natasha Correia MD [address] [facility] [address] [place], [place] [id number] Base Filler Obstetrics Gynecology 08/23/18 Rekha Felder MD [place], [place] [phone] Attending Provider Medical Clinical Genetics 09/29/23 Natan Funes MD [address] [place] [address], [address] [place] [address] Attending Provider Medical Clinical Genetics 03/08/24 Real Estate Sales Supervisor Relationship Specialty Start Date End Date Hoda Smith CNP [address] [place] [address] [place] [address] PCP - General Family Medicine 04/11/24 Real Estate Sales Supervisor Relationship Specialty Start Date End Date Hoda Smith CNP [address] [place] [address] [place], [place] [phone] PCP - General Family Medicine 04/11/24 Real Estate Sales Supervisor Relationship Specialty Start Date End Date Hoda Smith CNP [address] [place] [address] [place], [place] [phone] PCP - General Family Medicine 04/11/24 Real Estate Sales Supervisor Relationship Specialty Start Date End Date Hoda Smith CNP [address] [place] [address] [place], [place] [phone] PCP - General Family Medicine 04/11/24 Real Estate Sales Supervisor Relationship Specialty Start Date End Date Hoda Smith CNP [address] [place] [address] [place], [place] [phone] PCP - General Family Medicine 04/11/24 Team Status: Inactive Member Role Status Dates HARI Dimas Primary Care Provider Activ e Start: February 10, 2024 End: February 10, 2024 HARI Dimas Referring Provider Active Start: February 10, 2024 End: February 10, 2024 Portia Garcia CNM Attending Provider Active S tart: February 10, 2024 End: February 10, 2024 Team Status: Inactive Member Role Status Dates INTERNATIONAL SALES REPRESENTATIVE. Hoda Ungerer , INTERNATIONAL SALES REPRESENTATIVE-C Primary Care Provider Activ e Start: February 10, 2024 End: February 10, 2024 Portia Garcia CNM Attending Provider Active S tart: February 10, 2024 End: February 10, 2024 Portia Garcia CNM Referring Provider Active S tart: February 10, 2024 End: February 10, 2024 Team Status: Inactive Member Role Status Dates INTERNATIONAL SALES REPRESENTATIVE. Hoda Smith , INTERNATIONAL SALES REPRESENTATIVE-C Primary Care Provider Activ e Start: February 16, 2024 End: February 16, 2024 Portia Garcia CNM Attending Provider Active S tart: February 16, 2024 End: February 16, 2024 Portia Garcia CNM Referring Provider Active S tart: February 16, 2024 End: February 16, 2024 Team Status: Inactive Member Role Status Dates INTERNATIONAL SALES REPRESENTATIVEPrincess Smith , INTERNATIONAL SALES REPRESENTATIVE-C Primary Care Provider Activ e Start: February 29, 2024 End: February 29, 2024 INTERNATIONAL SALES REPRESENTATIVEPrincess Smith INTERNATIONAL SALES REPRESENTATIVE-C Referring Provider Active Start: February 29, 2024 End: February 29, 2024 Dr. Rajesh Orellana MD Attending Provider Active Start: February 29, 2024 End: February 29, 2024 Team Status: Inactive Member Role Status Dates INTERNATIONAL SALES REPRESENTATIVEPrincess Smith , INTERNATIONAL SALES REPRESENTATIVE-C Primary Care Provider Activ e Start: April 20, 2024 End: April 20, 2024 INTERNATIONAL SALES REPRESENTATIVEPrincess Smith , INTERNATIONAL SALES REPRESENTATIVE-C Referring Provider Active Start: April 20, 2024 End: April 20, 2024 URIAH CrisostomoC Attending Provider Active Start: April 20, 2024 End: April 20, 2024 Team Status: Inactive Member Role Status Dates INTERNATIONAL SALES REPRESENTATIVE. Hoda Smith , INTERNATIONAL SALES REPRESENTATIVE-C Primary Care Provider Activ e Start: April 20, 2024 End: April 20, 2024 HARI Crisostomo Attending Provider Active Start: April 20, 2024 End: April 20, 2024 HARI Crisostomo Referring Provider Active Start: April 20, 2024 End: April 20, 2024 Team Status: Inactive Member Role Status Dates INTERNATIONAL SALES REPRESENTATIVEPrincess Smith , INTERNATIONAL SALES REPRESENTATIVE-C Primary Care Provider Activ e Start: April 21, 2024 End: April 21, 2024 INTERNATIONAL SALES REPRESENTATIVE. Hoda Ungerer , INTERNATIONAL SALES REPRESENTATIVE-C Referring Provider Active Start: April 21, 2024 End: April 21, 2024 Dr. Rajesh Orellana MD Attending Provider Active Start: April 21, 2024 End: April 21, 2024 Team Status: Inactive Member Role Status Dates INTERNATIONAL SALES REPRESENTATIVE. Hoda Valdezdennise , INTERNATIONAL SALES REPRESENTATIVE-C Primary Care Provider Activ e Start: May 02, 2024 End: May 02, 2024 INTERNATIONAL SALES REPRESENTATIVE. Hoda Smith , INTERNATIONAL SALES REPRESENTATIVE-C Referring Provider Active Start: May 02, 2024 End: May 02, 2024 Dr. Lenka Thomas DO Attending Provider Activ e Start: May 02, 2024 End: May 02, 2024 Team Status: Inactive Member Role Status Dates INTERNATIONAL SALES REPRESENTATIVE. Hodaosiel Smith , INTERNATIONAL SALES REPRESENTATIVE-C Primary Care Provider Activ e Start: May 16, 2024 End: May 16, 2024 Dr. Maged Mckinney MD Attending Provider Activ e Start: May 16, 2024 End: May 16, 2024 Dr. Maged Mckinney MD Referring Provider Activ e Start: May 16, 2024 End: May 16, 2024 Team Status: Inactive Member Role Status Dates INTERNATIONAL SALES REPRESENTATIVE. Hodaosiel Smith , INTERNATIONAL SALES REPRESENTATIVE-C Primary Care Provider Activ e Start: May 18, 2024 End: May 18, 2024 INTERNATIONAL SALES REPRESENTATIVE. Hodaosiel Smith , INTERNATIONAL SALES REPRESENTATIVE-C Referring Provider Active Start: May 18, 2024 End: May 18, 2024 Portia Garcia CNM Attending Provider Active S tart: May 18, 2024 End: May 18, 2024 Team Status: Active Member Role Status Dates INTERNATIONAL SALES REPRESENTATIVE. Hoda Duy , INTERNATIONAL SALES REPRESENTATIVE-C Primary Care Provider Activ e Start: May 18, 2024 Portia Garcia CNM Attending Provider Active S tart: May 18, 2024 Portia Garcia CNM Referring Provider Active S tart: May 18, 2024 Team Status: Inactive Member Role Status Dates INTERNATIONAL SALES REPRESENTATIVE. Hoda Valdezdennise , INTERNATIONAL SALES REPRESENTATIVE-C Primary Care Provider Activ e Start: May 18, 2024 End: May 18, 2024 Portia Garcia CNM Attending Provider Active S tart: May 18, 2024 End: May 18, 2024 Portia Garcia CNM Referring Provider Active S tart: May 18, 2024 End: May 18, 2024 Real Estate Sales Supervisor Relationship Specialty Start Date End Date Hoda Smith CNP [address] [place] [id number] PCP - General Family Medicine 04/11/24 Team Status: Inactive Member Role Status Dates INTERNATIONAL SALES REPRESENTATIVEPrincess Smith , INTERNATIONAL SALES REPRESENTATIVE-C Primary Care Provider Activ e Start: June 23, 2024 End: June 23, 2024 INTERNATIONAL SALES REPRESENTATIVE. Hoda Smith , INTERNATIONAL SALES REPRESENTATIVE-C Referring Provider Active Start: June 23, 2024 End: June 23, 2024 Sada Christianson NP-C Attending Provider Active Start: June 23, 2024 End: June 23, 2024 Team Status: Inactive Member Role Status Dates NP. Hoda Smith , INTERNATIONAL SALES REPRESENTATIVE-C Primary Care Provider Activ e Start: June 23, 2024 End: June 23, 2024 Sada Christianson INTERNATIONAL SALES REPRESENTATIVE-C Attending Provider Active Start: June 23, 2024 End: June 23, 2024 Sada Christianson NP-C Referring Provider Active Start: June 23, 2024 End: June 23, 2024 Team Status: Active Member Role Status Dates Анна Goldstein NP, INTERNATIONAL SALES REPRESENTATIVE-C Family Provider Active Hoda Smith INTERNATIONAL SALES REPRESENTATIVE-C Primary Care Provider Active Team Status: Inactive Member Role Status Dates Hoda Smith INTERNATIONAL SALES REPRESENTATIVE-C Primary Care Provider Active Start: April 20, 2024 End: April 20, 2024 Hoda Smith INTERNATIONAL SALES REPRESENTATIVE-C Referring Provider Active Start: April 20, 2024 End: April 20, 2024 Sada Christianson NP-C Attending Provider Active Start: April 20, 2024 End: April 20, 2024 Team Status: Inactive Member Role Status Dates Hoda Smith INTERNATIONAL SALES REPRESENTATIVE-C Primary Care Provider Active Start: April 20, 2024 End: April 20, 2024 Sada Christianson NP-C Attending Provider Active Start: April 20, 2024 End: April 20, 2024 Sada Christianson INTERNATIONAL SALES REPRESENTATIVE-C Referring Provider Active Start: April 20, 2024 End: April 20, 2024 Team Status: Inactive Member Role Status Dates Hoda Ungerer , INTERNATIONAL SALES REPRESENTATIVE-C Primary Care Provider Active Start: April 21, 2024 End: April 21, 2024 Hoda Ungerer , INTERNATIONAL SALES REPRESENTATIVE-C Referring Provider Active Start: April 21, 2024 End: April 21, 2024 Dr. Rajesh Orellana MD Attending Provider Active Start: April 21, 2024 End: April 21, 2024 Team Status: Inactive Member Role Status Dates Hoda Ungerer , INTERNATIONAL SALES REPRESENTATIVE-C Primary Care Provider Active Start: May 02, 2024 End: May 02, 2024 Hoda Ungerer , INTERNATIONAL SALES REPRESENTATIVE-C Referring Provider Active Start: May 02, 2024 End: May 02, 2024 Dr. Lenka Thomas DO Attending Provider Activ e Start: May 02, 2024 End: May 02, 2024 Team Status: Inactive Member Role Status Dates Hoda Ungerer , INTERNATIONAL SALES REPRESENTATIVE-C Primary Care Provider Active Start: May 16, 2024 End: May 16, 2024 Dr. Maged Mckinney MD Attending Provider Activ e Start: May 16, 2024 End: May 16, 2024 Dr. Maged Mckinney MD Referring Provider Activ e Start: May 16, 2024 End: May 16, 2024 Team Status: Inactive Member Role Status Dates Hoda Ungerer , INTERNATIONAL SALES REPRESENTATIVE-C Primary Care Provider Active Start: May 18, 2024 End: May 18, 2024 Hoda Ungerer , INTERNATIONAL SALES REPRESENTATIVE-C Referring Provider Active Start: May 18, 2024 End: May 18, 2024 Portia Garcia CNM Attending Provider Active S tart: May 18, 2024 End: May 18, 2024 Team Status: Inactive Member Role Status Dates Hoda Ungerer , INTERNATIONAL SALES REPRESENTATIVE-C Primary Care Provider Active Start: May 18, 2024 End: May 18, 2024 Portia Garcia CNM Attending Provider Active S tart: May 18, 2024 End: May 18, 2024 Portia Garcia CNM Referring Provider Active S tart: May 18, 2024 End: May 18, 2024 Team Status: Inactive Member Role Status Dates Hoda Ungerer , INTERNATIONAL SALES REPRESENTATIVE-C Primary Care Provider Active Start: June 23, 2024 End: June 23, 2024 Hoda Ungerer , INTERNATIONAL SALES REPRESENTATIVE-C Referring Provider Active Start: June 23, 2024 End: June 23, 2024 Sada Christianson INTERNATIONAL SALES REPRESENTATIVE-C Attending Provider Active Start: June 23, 2024 End: June 23, 2024 Team Status: Inactive Member Role Status Dates Hoda Smith , INTERNATIONAL SALES REPRESENTATIVE-C Primary Care Provider Active Start: June 23, 2024 End: June 23, 2024 Sada Christianson INTERNATIONAL SALES REPRESENTATIVE-C Attending Provider Active Start: June 23, 2024 End: June 23, 2024 Sada Christianson INTERNATIONAL SALES REPRESENTATIVE-C Referring Provider Active Start: June 23, 2024 End: June 23, 2024 Team Status: Inactive Member Role Status Dates Hoda Smith , INTERNATIONAL SALES REPRESENTATIVE-C Primary Care Provider Active Start: June 29, 2024 End: June 29, 2024 Hoda Smith INTERNATIONAL SALES REPRESENTATIVE-C Referring Provider Active Start: June 29, 2024 End: June 29, 2024 Tonia Iversno NP, INTERNATIONAL SALES REPRESENTATIVE-C Attending Provider Active Start: June 29, 2024 End: June 29, 2024 Team Status: Inactive Member Role Status Dates Hoda Smith , INTERNATIONAL SALES REPRESENTATIVE-C Primary Care Provider Active Start: July 25, 2024 End: July 25, 2024 Hoda Smith , INTERNATIONAL SALES REPRESENTATIVE-C Referring Provider Active Start: July 25, 2024 End: July 25, 2024 Sada Christianson INTERNATIONAL SALES REPRESENTATIVE-C Attending Provider Active Start: July 25, 2024 End: July 25, 2024 Team Status: Inactive Member Role Status Dates Hoda Smith , INTERNATIONAL SALES REPRESENTATIVE-C Primary Care Provider Active Start: July 25, 2024 End: July 25, 2024 Sada Christianson INTERNATIONAL SALES REPRESENTATIVE-C Attending Provider Active Start: July 25, 2024 End: July 25, 2024 Real Estate Sales Supervisor Relationship Specialty Start Date End Date Hoda Smith CNP [address] [id number] PCP - General Family Medicine 04/11/24 Team Status: Inactive Member Role Status Dates Hoda Smith , INTERNATIONAL SALES REPRESENTATIVE-C Primary Care Provider Active Start: July 28, 2024 End: July 28, 2024 Hoda Smith INTERNATIONAL SALES REPRESENTATIVE-C Referring Provider Active Start: July 28, 2024 End: July 28, 2024 Crow DUMONT PA Attending Provider Active Sta rt: July 28, 2024 End: July 28, 2024 Team Status: Inactive Member Role Status Dates Hoda Smith INTERNATIONAL SALES REPRESENTATIVE-C Primary Care Provider Active Start: August 08, 2024 End: August 08, 2024 Hoda Smith INTERNATIONAL SALES REPRESENTATIVE-C Referring Provider Active Start: August 08, 2024 End: August 08, 2024 HARI Crisostomo Attending Provider Active Start: August 08, 2024 End: August 08, 2024 Team Status: Inactive Member Role Status Dates Hoda Smith INTERNATIONAL SALES REPRESENTATIVE-C Primary Care Provider Active Start: August 08, 2024 End: August 08, 2024 Sada Christianson NP-C Attending Provider Active Start: August 08, 2024 End: August 08, 2024 Team Status: Active Member Role Status Dates Collette DUMONT, PA-C Primary Care Provider Active Team Status: Inactive Member Role Status Dates Hoda Smith INTERNATIONAL SALES REPRESENTATIVE-C Referring Provider Active Start: August 16, 2024 End: August 16, 2024 JULIA Alexander Attending Provider Active Start: August 16, 2024 End: August 16, 2024 Collette DUMONT, PA-C Primary Care Provider Active Start: August 16, 2024 End: August 16, 2024 Team Status: Inactive Member Role Status Dates Collette DUMONT, PA-C Primary Care Provider Active Start: August 16, 2024 End: August 16, 2024 JULIA Alexander Attending Provider Active Start: August 16, 2024 End: August 16, 2024 JULIA Alexander Referring Provider Active Start: August 16, 2024 End: August 16, 2024 Soo Juarez NP-C Other Provider Active Start : August 16, 2024 End: August 16, 2024 Real Estate Sales Supervisor Relationship Specialty Start Date End Date Hoda Smith CNP [address] [facility] [address] [place] [address] PCP - General Family Medicine 04/11/24 Real Estate Sales Supervisor Relationship Specialty Start Date End Date Hoda Smith CNP [address] [facility] [address] [place] [address] PCP - General Family Medicine 04/11/24 Team Status: Inactive Member Role Status Dates Collette Amin PA, PA-C Primary Care Provider Active Start: September 12, 2024 End: September 12, 2024 Collette DUMONT, PA-C Referring Provider Active Start: September 12, 2024 End: September 12, 2024 HARI Crisostomo Attending Provider Active Start: September 12, 2024 End: September 12, 2024 Team Status: Active Member Role Status Dates Collette DUMONT, PA-C Primary Care Provider Active Start: September [...] Amin PA, PA-C Primary Care Provider Active Team Status: Inactive Member Role/Relationship Status Dates Hoda Smith INTERNATIONAL SALES REPRESENTATIVE-C Primary Care Provider Active Start: June 23, 2024 End: June 23, 2024 Hoda Smtih NP-[place] Referring Provider Active Start: June 23, 2024 End: June 23, 2024 HARI Crisostomo Attending Provider Active Start: June 23, 2024 End: June 23, 2024 Team Status: Inactive Member Role/Relationship Status Dates Hoda Smith NP-[place] Primary Care Provider Active Start: June 23, 2024 End: June 23, 2024 HARI Crisostomo Attending Provider Active Start: June 23, 2024 End: June 23, 2024 HARI Crisostomo Referring Provider Active Start: June 23, 2024 End: June 23, 2024 Team Status: Inactive Member Role/Relationship Status Dates Hoda Ungerer , INTERNATIONAL SALES REPRESENTATIVE-C Primary Care Provider Active Start: June 29, 2024 End: June 29, 2024 Hoda Ungerer , INTERNATIONAL SALES REPRESENTATIVE-C Referring Provider Active Start: June 29, 2024 End: June 29, 2024 Tonia Iverson NP, INTERNATIONAL SALES REPRESENTATIVE-C Attending Provider Active Start: June 29, 2024 End: June 29, 2024 Team Status: Inactive Member Role/Relationship Status Dates Hoda Ungerer , INTERNATIONAL SALES REPRESENTATIVE-C Primary Care Provider Active Start: July 25, 2024 End: July 25, 2024 Hoda Ungerer , INTERNATIONAL SALES REPRESENTATIVE-C Referring Provider Active Start: July 25, 2024 End: July 25, 2024 Sada Christianson INTERNATIONAL SALES REPRESENTATIVE-C Attending Provider Active Start: July 25, 2024 End: July 25, 2024 Team Status: Inactive Member Role/Relationship Status Dates Hoda Ungerer , INTERNATIONAL SALES REPRESENTATIVE-C Primary Care Provider Active Start: July 25, 2024 End: July 25, 2024 Sada Christianson INTERNATIONAL SALES REPRESENTATIVE-C Attending Provider Active Start: July 25, 2024 End: July 25, 2024 Team Status: Inactive Member Role/Relationship Status Dates Hoda Ungerer , INTERNATIONAL SALES REPRESENTATIVE-C Primary Care Provider Active Start: July 28, 2024 End: July 28, 2024 Hoda Ungerer , INTERNATIONAL SALES REPRESENTATIVE-C Referring Provider Active Start: July 28, 2024 End: July 28, 2024 JULIA Navarro Attending Provider Active Sta rt: July 28, 2024 End: July 28, 2024 Team Status: Inactive Member Role/Relationship Status Dates Hoda Ungerer , INTERNATIONAL SALES REPRESENTATIVE-C Primary Care Provider Active Start: August 08, 2024 End: August 08, 2024 Hoda Ungerer , INTERNATIONAL SALES REPRESENTATIVE-C Referring Provider Active Start: August 08, 2024 End: August 08, 2024 Sada Christianson NP-C Attending Provider Active Start: August 08, 2024 End: August 08, 2024 Team Status: Inactive Member Role/Relationship Status Dates Hoda Ungerer , INTERNATIONAL SALES REPRESENTATIVE-C Primary Care Provider Active Start: August 08, 2024 End: August 08, 2024 Sada Christianson NP-C Attending Provider Active Start: August 08, 2024 End: August 08, 2024 Team Status: Inactive Member Role/Relationship Status Dates Hoda Smith INTERNATIONAL SALES REPRESENTATIVE-C Referring Provider Active Start: August 16, 2024 End: August 16, 2024 JULIA Alexander Attending Provider Active Start: August 16, 2024 End: August 16, 2024 Collette Hills PA, PA-C Primary Care Provider Active Start: [...] 16, 2024 End: August 16, 2024 Soo Juarez INTERNATIONAL SALES REPRESENTATIVE-C Other Provider Active Start : August 16, 2024 End: August 16, 2024 Team Status: Inactive Member Role/Relationship Status Dates Collette Amin PA, PA-C Primary Care Provider Active Start: September 12, 2024 End: September 12, 2024 Collettebartolo Amin PA, PA-C Referring Provider Active Start: September 12, 2024 End: September 12, 2024 Sada Christianson NP-C Attending Provider Active Start: September 12, 2024 End: September 12, 2024 Team Status: Inactive Member Role/Relationship Status Dates Collette Amin PA, PA-C Primary Care Provider Active Start: September 12, 2024 End: September 12, 2024 Sada Christianson NP-C Attending Provider Active Start: September 12, 2024 End: September 12, 2024 Team Status: Inactive Member Role/Relationship Status Dates Collette Amin PA, PA-C Primary Care Provider Active Start: September 16, 2024 End: September 16, 2024 Collettebartolo Amin PA, PA-C Referring Provider Active Start: September 16, 2024 End: September 16, 2024 Candida Loco PA Attending Provider Active Start: September 16, 2024 End: September 16, 2024 Team Status: Inactive Member Role/Relationship Status Dates Collette Amin PA, PA-C Primary Care Provider Active Start: October 03, 2024 End: October 03, 2024 Collette Hills PA, PA-C Referring Provider Active Start: October 03, 2024 End: October 03, 2024 Dr. Natasha Correia MD Attending Provider Active Start: October 03, 2024 End: October 03, 2024 Team Status: Active Member Role/Relationship Status Dates Collette Brennan PA, PA-C Primary Care Provider Active Start: October 03, 2024 Dr. Natasha Correia MD Attending Provider Active Start: October 03, 2024 Dr. Natasha Correia MD Referring Provider Active Start: October 03, 2024 Team Status: Active Member Role/Relationship Status Dates Angeli Martin , INTERNATIONAL SALES REPRESENTATIVE-C Primary Care Provider Active Team Status: Inactive Member Role/Relationship Status Dates Collette Amin PA, PA-C Referring Provider Active Start: October 06, 2024 End: October 06, 2024 JULIA Alexander Attending Provider Active Start: October 06, 2024 End: October 06, 2024 Angeli Martin , INTERNATIONAL SALES REPRESENTATIVE-C Primary Care Provider Active Start: October 06, 2024 End: October 06, 2024 Team Status: Inactive Member Role/Relationship Status Dates Collette [place] PA, PA-C Primary Care Provider Active Start: October 03, 2024 End: October 03, 2024 Dr. Natasha Correia MD Attending Provider Active Start: October 03, 2024 End: October 03, 2024 Dr. Natasha Correia MD Referring Provider Active Start: October 03, 2024 End: October 03, 2024 Team Status: Active Member Role/Relationship Status Dates Angeli Martin , INTERNATIONAL SALES REPRESENTATIVE-C Primary Care Provider Active Start: October 06, 2024 JULIA Alexander Attending Provider Active Start: October 06, 2024 JULIA Alexander Referring Provider Active Start: October 06, 2024 Team Status: Inactive Member Role/Relationship Status Dates Angeli Martin , INTERNATIONAL SALES REPRESENTATIVE-C Primary Care Provider Active Start: October 06, 2024 End: October 06, 2024 JULIA Alexander Attending Provider Active Start: October 06, 2024 End: October 06, 2024 JULIA Alexander Referring Provider Active Start: October 06, 2024 End: October 06, 2024 Team Status: Active Member Role/Relationship Status Dates Angeli Martin , INTERNATIONAL SALES REPRESENTATIVE-C Primary Care Provider Active Start: October 12, 2024 JULIA Alexander Attending Provider Active Start: October 12, 2024 JULIA Alexander Referring Provider Active Start: October 12, 2024 Team Status: Inactive Member Role/Relationship Status Dates Angeli Martin , INTERNATIONAL SALES REPRESENTATIVE-C Primary Care Provider Active Start: October 12, 2024 End: October 12, 2024 JULIA Alexander Attending Provider Active Start: October 12, 2024 End: October 12, 2024 JULIA Alexander Referring Provider Active Start: October 12, 2024 End: October 12, 2024 Team Status: Active Member Role/Relationship Status Dates Angeli Martin , INTERNATIONAL SALES REPRESENTATIVE-C Primary Care Provider Active Start: October 18, 2024 Angeli Martin INTERNATIONAL SALES REPRESENTATIVE-C Attending Provider Active Start: October 18, 2024 Team Status: Inactive Member Role/Relationship Status Dates Hoda Smith , INTERNATIONAL SALES REPRESENTATIVE-C Primary Care Provider Active Start: June 29, 2024 End: June 29, 2024 Hoda Smith , INTERNATIONAL SALES REPRESENTATIVE-C Referring Provider Active Start: June 29, 2024 End: June 29, 2024 Tonia Iverson NP, INTERNATIONAL SALES REPRESENTATIVE-C Attending Provider Active Start: June 29, 2024 End: June 29, 2024 Team Status: Inactive Member Role/Relationship Status Dates Hoda Smith , INTERNATIONAL SALES REPRESENTATIVE-C Primary Care Provider Active Start: July 25, 2024 End: July 25, 2024 Hoda Smith , INTERNATIONAL SALES REPRESENTATIVE-C Referring Provider Active Start: July 25, 2024 End: July 25, 2024 Sada Christianson INTERNATIONAL SALES REPRESENTATIVE-C Attending Provider Active Start: July 25, 2024 End: July 25, 2024 Team Status: Inactive Member Role/Relationship Status Dates Hoda Smith , INTERNATIONAL SALES REPRESENTATIVE-C Primary Care Provider Active Start: July 25, 2024 End: July 25, 2024 Sada Christianson INTERNATIONAL SALES REPRESENTATIVE-C Attending Provider Active Start: July 25, 2024 End: July 25, 2024 Team Status: Inactive Member Role/Relationship Status Dates Hoda Smith , INTERNATIONAL SALES REPRESENTATIVE-C Primary Care Provider Active Start: July 28, 2024 End: July 28, 2024 Hoda Smith , INTERNATIONAL SALES REPRESENTATIVE-C Referring Provider Active Start: July 28, 2024 End: July 28, 2024 Crow DUMONT PA Attending Provider Active Sta rt: July 28, 2024 End: July 28, 2024 Team Status: Inactive Member Role/Relationship Status Dates Hoda Smith , INTERNATIONAL SALES REPRESENTATIVE-C Primary Care Provider Active Start: August 08, 2024 End: August 08, 2024 Hoda Smith INTERNATIONAL SALES REPRESENTATIVE-C Referring Provider Active Start: August 08, 2024 End: August 08, 2024 Sada Christianson NP-C Attending Provider Active Start: August 08, 2024 End: August 08, 2024 Team Status: Inactive Member Role/Relationship Status Dates Hoda Smith INTERNATIONAL SALES REPRESENTATIVE-C Primary Care Provider Active Start: August 08, 2024 End: August 08, 2024 Sada Christianson NP-C Attending Provider Active Start: August 08, 2024 End: August 08, 2024 Team Status: Inactive Member Role/Relationship Status Dates Hoda Smith INTERNATIONAL SALES REPRESENTATIVE-C Referring Provider Active Start: August 16, 2024 End: August 16, 2024 JULIA Alexander Attending Provider Active Start: August 16, 2024 End: August 16, 2024 Collette DUMONT, PA-C Primary Care Provider Active Start: August 16, 2024 End: August 16, 2024 Team Status: Inactive Member Role/Relationship Status Dates Collette DUMONT, PA-C Primary Care Provider Active Start: August 16, 2024 End: August 16, 2024 JULIA Alexander Attending Provider Active Start: August 16, 2024 End: August 16, 2024 Candida Loco PA Referring Provider Active Start: August 16, 2024 End: August 16, 2024 Soo Juarez INTERNATIONAL SALES REPRESENTATIVE-C Other Provider Active Start : August 16, 2024 End: August 16, 2024 Team Status: Inactive Member Role/Relationship Status Dates Collette DUMONT, PA-C Primary Care Provider Active Start: September 12, 2024 End: September 12, 2024 Collette DUMONT, PA-C Referring Provider Active Start: September 12, 2024 End: September 12, 2024 Sada Christianson NP-C Attending Provider Active Start: September 12, 2024 End: September 12, 2024 Team Status: Inactive Member Role/Relationship Status Dates Collette Amin PA, PA-C Primary Care Provider Active Start: September 12, 2024 End: September 12, 2024 Sada Christianson NP-C Attending Provider Active Start: September 12, 2024 End: September 12, 2024 Team Status: Inactive Member Role/Relationship Status Dates Collette Amin PA, PA-C Primary Care Provider Active Start: September 16, 2024 End: September 16, 2024 Collettebartolo Amin PA, PA-C Referring Provider Active Start: [...] 2024 End: October 03, 2024 Team Status: Inactive Member Role/Relationship Status Dates Collette Amin PA, PA-C Primary Care Provider Active Start: October 03, 2024 End: October 03, 2024 Dr. Natasha Correia MD Attending Provider Active Start: October 03, 2024 End: October 03, 2024 Dr. Natasha Correia MD Referring Provider Active Start: October 03, 2024 End: October 03, 2024 Team Status: Inactive Member Role/Relationship Status Dates Collette Amin PA, PA-C Referring Provider Active Start: October 06, 2024 End: October 06, 2024 JULIA Alexander Attending Provider Active Start: October 06, 2024 End: October 06, 2024 Angeli Martin NP-C Primary Care Provider Active Start: October 06, 2024 End: October 06, 2024 Team Status: Inactive Member Role/Relationship Status Dates Angeli Martin NP-C Primary Care Provider Active Start: October 06, 2024 End: October 06, 2024 JULIA Alexander Attending Provider Active Start: October 06, 2024 End: October 06, 2024 JULIA Alexander Referring Provider Active Start: October 06, 2024 End: October 06, 2024 Team Status: Inactive Member Role/Relationship Status Dates Angeli Martin INTERNATIONAL SALES REPRESENTATIVE-C Primary Care Provider Active Start: October 12, 2024 End: October 12, 2024 JULIA Alexander Attending Provider Active Start: October 12, 2024 End: October 12, 2024 JULIA Alexander Referring Provider Active Start: October 12, 2024 End: October 12, 2024 Team Status: Inactive Member Role/Relationship Status Dates Angeli Martin INTERNATIONAL SALES REPRESENTATIVE-C Primary Care Provider Active Start: October 18, 2024 End: October 18, 2024 Angeli Martin INTERNATIONAL SALES REPRESENTATIVE-C Attending Provider Active Start: October 18, 2024 End: October 18, 2024 Team Status: Active Member Role/Relationship Status Dates Angeli Martin INTERNATIONAL SALES REPRESENTATIVE-C Primary Care Provider Active Start: October 25, 2024 Dillon ALEXANDRA INTERNATIONAL SALES REPRESENTATIVE-C Attending Provider Active Start: October 25, 2024 Team Status: Inactive Member Role/Relationship Status Dates Hoda Smith , INTERNATIONAL SALES REPRESENTATIVE-C Primary Care Provider Active Start: July 25, 2024 End: July 25, 2024 Hoda Smith INTERNATIONAL SALES REPRESENTATIVE-C Referring Provider Active Start: July 25, 2024 End: July 25, 2024 Sada Christianson INTERNATIONAL SALES REPRESENTATIVE-C Attending Provider Active Start: July 25, 2024 End: July 25, 2024 Team Status: Inactive Member Role/Relationship Status Dates Hoda Smith , INTERNATIONAL SALES REPRESENTATIVE-C Primary Care Provider Active Start: July 25, 2024 End: July 25, 2024 Sada Christianson INTERNATIONAL SALES REPRESENTATIVE-C Attending Provider Active Start: July 25, 2024 End: July 25, 2024 Team Status: Inactive Member Role/Relationship Status Dates Hoda Smith , INTERNATIONAL SALES REPRESENTATIVE-C Primary Care Provider Active Start: July 28, 2024 End: July 28, 2024 Hoda Smith , INTERNATIONAL SALES REPRESENTATIVE-C Referring Provider Active Start: July 28, 2024 End: July 28, 2024 JULIA Navarro Attending Provider Active Sta rt: July 28, 2024 End: July 28, 2024 Team Status: Inactive Member Role/Relationship Status Dates Hoda Smith INTERNATIONAL SALES REPRESENTATIVE-C Primary Care Provider Active Start: August 08, 2024 End: August 08, 2024 Hoda Smith INTERNATIONAL SALES REPRESENTATIVE-C Referring Provider Active Start: August 08, 2024 End: August 08, 2024 Sada Christianson INTERNATIONAL SALES REPRESENTATIVE-C Attending Provider Active Start: August 08, 2024 End: August 08, 2024 Team Status: Inactive Member Role/Relationship Status Dates Hoda Smith INTERNATIONAL SALES REPRESENTATIVE-C Primary Care Provider Active Start: August 08, 2024 End: August 08, 2024 Sada Christianson INTERNATIONAL SALES REPRESENTATIVE-C Attending Provider Active Start: August 08, 2024 End: August 08, 2024 Team Status: Inactive Member Role/Relationship Status Dates Hoda Smith INTERNATIONAL SALES REPRESENTATIVE-C Referring Provider Active Start: August 16, 2024 [...] 16, 2024 End: August 16, 2024 Soo Juarez INTERNATIONAL SALES REPRESENTATIVE-C Other Provider Active Start : August 16, 2024 End: August 16, 2024 Team Status: Inactive Member Role/Relationship Status Dates Collette Amin PA, PA-C Primary Care Provider Active Start: September 12, 2024 End: September 12, 2024 Collette Amin PA, PA-C Referring Provider Active Start: September 12, 2024 End: September 12, 2024 Sada Christianson INTERNATIONAL SALES REPRESENTATIVE-C Attending Provider Active Start: September 12, 2024 End: September 12, 2024 Team Status: Inactive Member Role/Relationship Status Dates Collette Amin PA, PA-C Primary Care Provider Active Start: September 12, 2024 End: September 12, 2024 URIAH CrisostomoC Attending Provider Active Start: September 12, 2024 End: September 12, 2024 Team Status: Inactive Member Role/Relationship Status Dates Collette Amin PA, PA-C Primary Care Provider Active Start: September 16, 2024 End: September 16, 2024 Collettebartolo Amin PA, PA-C Referring Provider Active Start: September 16, 2024 End: September 16, 2024 JULIA Alexander Attending Provider Active Start: September 16, 2024 End: September 16, 2024 Team Status: Inactive Member Role/Relationship Status Dates Collette Amin PA, PA-C Primary Care Provider Active Start: October 03, 2024 End: October 03, 2024 Collettebartolo Amin PA, PA-C Referring Provider Active Start: October 03, 2024 End: October 03, 2024 Dr. Natasha Correia MD Attending Provider Active Start: October 03, 2024 End: October 03, 2024 Team Status: Inactive Member Role/Relationship Status Dates Collette Amin PA, PA-C Primary Care Provider Active Start: October 03, 2024 End: October 03, 2024 Dr. Natasha Correia MD Attending Provider Active Start: October 03, 2024 End: October 03, 2024 Dr. Natasha Correia MD Referring Provider Active Start: October 03, 2024 End: October 03, 2024 Team Status: Inactive Member Role/Relationship Status Dates Collette Amin PA, PA-C Referring Provider Active Start: October 06, 2024 End: October 06, 2024 JULIA Alexander Attending Provider Active Start: October 06, 2024 End: October 06, 2024 Angeli Martin NP-C Primary Care Provider Active Start: October 06, 2024 End: October 06, 2024 Team Status: Inactive Member Role/Relationship Status Dates Angeli Martin NP-C Primary Care Provider Active Start: October 06, 2024 End: October 06, 2024 JULIA Alexander Attending Provider Active Start: October 06, 2024 End: October 06, 2024 JULIA Alexander Referring Provider Active Start: October 06, 2024 End: October 06, 2024 Team Status: Inactive Member Role/Relationship Status Dates Angeli Martin , INTERNATIONAL SALES REPRESENTATIVE-C Primary Care Provider Active Start: October 12, 2024 End: October 12, 2024 JULIA Alexander Attending Provider Active Start: October 12, 2024 End: October 12, 2024 JULIA Alexander Referring Provider Active Start: October 12, 2024 End: October 12, 2024 Team Status: Inactive Member Role/Relationship Status Dates Angeli Martin , INTERNATIONAL SALES REPRESENTATIVE-C Primary Care Provider Active Start: October 18, 2024 End: October 18, 2024 Angeli Martin , INTERNATIONAL SALES REPRESENTATIVE-C Attending Provider Active Start: October 18, 2024 End: October 18, 2024 Team Status: Inactive Member Role/Relationship Status Dates Angeli Martin , INTERNATIONAL SALES REPRESENTATIVE-C Primary Care Provider Active Start: October 25, 2024 End: October 25, 2024 Dillon ALEXANDRA, INTERNATIONAL SALES REPRESENTATIVE-C Attending Provider Active Start: October 25, 2024 End: October 25, 2024 Team Status: Inactive Member Role/Relationship Status Dates Angeli Martin , INTERNATIONAL SALES REPRESENTATIVE-C Primary Care Provider Active Start: November 09, 2024 End: November 09, 2024 Angeli Martin , INTERNATIONAL SALES REPRESENTATIVE-C Referring Provider Active Start: November 09, 2024 End: November 09, 2024 Tonia Iverson NP, INTERNATIONAL SALES REPRESENTATIVE-C Attending Provider Active Start: November 09, 2024 End: November 09, 2024 Team Status: Inactive Member Role/Relationship Status Dates Angeli Martin , INTERNATIONAL SALES REPRESENTATIVE-C Primary Care Provider Active Start: November 09, 2024 End: November 09, 2024 Tonia Iverson NP, INTERNATIONAL SALES REPRESENTATIVE-C Attending Provider Active Start: November 09, 2024 End: November 09, 2024 Team Status: Active Member Role/Relationship Status Dates Angeli Martin , INTERNATIONAL SALES REPRESENTATIVE-C Primary Care Provider Active Start: November 17, 2024 Angeli Martin , INTERNATIONAL SALES REPRESENTATIVE-C Attending Provider Active Start: November 17, 2024 Angeli Martin , INTERNATIONAL SALES REPRESENTATIVE-C Referring Provider Active Start: November 17, 2024 Team Status: Inactive Member Role/Relationship Status Dates Dr. Rakesh Schreiber DO Attending Provider Active Start: November 22, 2024 End: November 22, 2024 Angeli Martin INTERNATIONAL SALES REPRESENTATIVE-C Primary Care Provider Active Start: November 22, 2024 End: November 22, 2024 HARI Henry Referring Provider Active Start: November 22, 2024 End: November 22, 2024 Team Status: Active Member Role/Relationship Status Dates Dr. Rakesh Schreiber DO Attending Provider Active Start: November 22, 2024 Dr. Rakesh Schreiber DO Other Provider Active St art: November 22, 2024 HARI Henry Primary Care Provider Active Start: November 22, 2024 HARI Henry Referring Provider Active Start: November 22, 2024 Real Estate Sales Supervisor Relationship Specialty Start Date End Date Hoda Smith CNP [address] [facility] [address] [place] [address] PCP - General Family Medicine 04/11/24 Real Estate Sales Supervisor Relationship Specialty Start Date End Date Hoda Smith CNP [address] [facility] [address] [place] [address] PCP - General Family Medicine 04/11/24 Real Estate Sales Supervisor Relationship Specialty Start [place] [address] [place] [id number] PCP - General Internal Medicine 02/10/22 Team Status: Inactive Member Role/Relationship Status Dates HARI Larson Primary Care Provider Active Start: August 08, 2024 End: August 08, 2024 HARI Larson Referring Provider Active Start: August 08, 2024 End: August 08, 2024 HARI Crisostomo Attending Provider Active Start: August 08, 2024 End: August 08, 2024 Team Status: Inactive Member Role/Relationship Status Dates HARI Larson Primary Care Provider Active Start: August 08, 2024 End: August 08, 2024 Sada Barkman , INTERNATIONAL SALES REPRESENTATIVE-C Attending Provider Active Start: August 08, 2024 End: August 08, 2024 Team Status: Inactive Member Role/Relationship Status Dates Hoda Smith INTERNATIONAL SALES REPRESENTATIVE-C Referring Provider Active Start: August 16, 2024 End: August 16, 2024 JULIA Alexander Attending Provider Active Start: August 16, 2024 End: August 16, 2024 Collette Amin PA, PA-C Primary Care Provider Active Start: August 16, 2024 End: August 16, 2024 Team Status: Inactive Member Role/Relationship Status Dates Collette [place] PA, PA-C Primary Care Provider Active Start: August 16, 2024 End: August 16, 2024 JULIA Alexander Attending Provider Active Start: August 16, 2024 End: August 16, 2024 JULIA Alexander Referring Provider Active Start: August 16, 2024 End: August 16, 2024 Soo Juarez INTERNATIONAL SALES REPRESENTATIVE-C Other Provider Active Start : August 16, 2024 End: August 16, 2024 Team Status: Inactive Member Role/Relationship Status Dates Collette Amin PA, PA-C Primary Care Provider Active Start: September 12, 2024 End: September 12, 2024 Collette Amin PA, PA-C Referring Provider Active Start: September 12, 2024 End: September 12, 2024 Sada Christianson NP-C Attending Provider Active Start: September 12, 2024 End: September 12, 2024 Team Status: Inactive Member Role/Relationship Status Dates Collette [place] PA, PA-C Primary Care Provider Active Start: September 12, 2024 End: September 12, 2024 Sada Christianson NP-C Attending Provider Active Start: September 12, 2024 End: September 12, 2024 Team Status: Inactive Member Role/Relationship Status Dates Collette Amin PA, PA-C Primary Care Provider Active Start: September 16, 2024 End: September 16, 2024 Collette Amin PA, PA-C Referring Provider Active Start: September 16, 2024 End: September 16, 2024 Candida Loco PA Attending Provider Active Start: September 16, 2024 End: September 16, 2024 Team Status: Inactive Member Role/Relationship Status Dates Collette Amin PA, PA-C Primary Care Provider Active Start: October 03, 2024 End: October 03, 2024 Collette Brennan PA, PA-C Referring Provider Active Start: October 03, 2024 End: October 03, 2024 Dr. Natasha Correia MD Attending Provider Active Start: October 03, 2024 End: October 03, 2024 Team Status: Inactive Member Role/Relationship Status Dates Collette [place] PA, PA-C Primary Care Provider Active Start: October 03, 2024 End: October 03, 2024 Dr. Natasha Correia MD Attending Provider Active Start: October 03, 2024 End: October 03, 2024 Dr. Natasha Correia MD Referring Provider Active Start: October 03, 2024 End: October 03, 2024 Team Status: Inactive Member Role/Relationship Status Dates Collette Brennan PA, PA-C Referring Provider Active Start: October 06, 2024 End: October 06, 2024 JULIA Alexander Attending Provider Active Start: October 06, 2024 End: October 06, 2024 Angeli Martin , INTERNATIONAL SALES REPRESENTATIVE-C Primary Care Provider Active Start: October 06, 2024 End: October 06, 2024 Team Status: Inactive Member Role/Relationship Status Dates Angeli Martin , INTERNATIONAL SALES REPRESENTATIVE-C Primary Care Provider Active Start: October 06, 2024 End: October 06, 2024 JULIA Alexander Attending Provider Active Start: October 06, 2024 End: October 06, 2024 Candida Loco PA Referring Provider Active Start: October 06, 2024 End: October 06, 2024 Team Status: Inactive Member Role/Relationship Status Dates Angeli Martin , INTERNATIONAL SALES REPRESENTATIVE-C Primary Care Provider Active Start: October 12, 2024 End: October 12, 2024 JULIA Alexander Attending Provider Active Start: October 12, 2024 End: October 12, 2024 JULIA Alexander Referring Provider Active Start: October 12, 2024 End: October 12, 2024 Team Status: Inactive Member Role/Relationship Status Dates Angeli Martin , INTERNATIONAL SALES REPRESENTATIVE-C Primary Care Provider Active Start: October 18, 2024 End: October 18, 2024 Angeli Martin INTERNATIONAL SALES REPRESENTATIVE-C Attending Provider Active Start: October 18, 2024 End: October 18, 2024 Team Status: Inactive Member Role/Relationship Status Dates Angeli Martin , INTERNATIONAL SALES REPRESENTATIVE-C Primary Care Provider Active Start: October 25, 2024 End: October 25, 2024 Dillon ALEXANDRA, INTERNATIONAL SALES REPRESENTATIVE-C Attending Provider Active Start: October 25, 2024 End: October 25, 2024 Team Status: Inactive Member Role/Relationship Status Dates Angeli Martin , INTERNATIONAL SALES REPRESENTATIVE-C Primary Care Provider Active Start: November 09, 2024 End: November 09, 2024 Angeli Martin , INTERNATIONAL SALES REPRESENTATIVE-C Referring Provider Active Start: November 09, 2024 End: November 09, 2024 Tonia Iverson INTERNATIONAL SALES REPRESENTATIVE, INTERNATIONAL SALES REPRESENTATIVE-C Attending Provider Active Start: November 09, 2024 End: November 09, 2024 Team Status: Inactive Member Role/Relationship Status Dates Angeli Martin , INTERNATIONAL SALES REPRESENTATIVE-C Primary Care Provider Active Start: November 09, 2024 End: November 09, 2024 Tonia Iverson INTERNATIONAL SALES REPRESENTATIVE, INTERNATIONAL SALES REPRESENTATIVE-C Attending Provider Active Start: November 09, 2024 End: November 09, 2024 Team Status: Inactive Member Role/Relationship Status Dates Angeli Martin , INTERNATIONAL SALES REPRESENTATIVE-C Primary Care Provider Active Start: November 17, 2024 End: November 17, 2024 Angeli Martin , INTERNATIONAL SALES REPRESENTATIVE-C Attending Provider Active Start: November 17, 2024 End: November 17, 2024 Angeli Martin , INTERNATIONAL SALES REPRESENTATIVE-C Referring Provider Active Start: November 17, 2024 End: November 17, 2024 Team Status: Inactive Member Role/Relationship Status Dates Dr. Rakesh Schreiber DO Attending Provider Active Start: November 22, 2024 End: November 22, 2024 Angeli Martin , INTERNATIONAL SALES REPRESENTATIVE-C Primary Care Provider Active Start: November 22, 2024 End: November 22, 2024 Angeli Martin , INTERNATIONAL SALES REPRESENTATIVE-C Referring Provider Active Start: November 22, 2024 End: November 22, 2024 Team Status: Active Member Role/Relationship Status Dates Dr. Rakesh Schreiber DO Attending Provider Active Start: November 22, 2024 Dr. Rakesh Schreiber DO Other Provider Active St art: November 22, 2024 Angeli Martin , INTERNATIONAL SALES REPRESENTATIVE-C Primary Care Provider Active Start: November 22, 2024 Angeli Martin , INTERNATIONAL SALES REPRESENTATIVE-C Referring Provider Active Start: November 22, 2024 Team Status: Inactive Member Role/Relationship Status Dates Angeli Martin NP-C Primary Care Provider Active Start: December 05, 2024 End: December 05, 2024 Angeli Martin NP-[place] Referring Provider Active Start: December 05, 2024 End: December 05, 2024 URIAH CrisostomoC Attending Provider Active Start: December 05, 2024 End: December 05, 2024 Team Status: Active Member Role/Relationship Status Dates Angeli Martin NP-C Primary care physician Active Team Status: Inactive Member Role/Relationship Status Dates Hoda Smith NP-C Referring Provider Active Start: August 16, 2024 End: August 16, 2024 JULIA Alexander Attending physician Active Start: August 16, 2024 End: August 16, 2024 Collette DUMONT PA-C Primary care physician Active Start: August 16, 2024 End: August 16, 2024 Team Status: Inactive Member Role/Relationship Status Dates Collette DUMONT PA-C Primary care physician Active Start: August 16, 2024 End: August 16, 2024 JULIA Alexander Attending physician Active Start: August 16, 2024 End: August 16, 2024 JULIA Alexander Referring Provider Active Start: August 16, 2024 End: August 16, 2024 URIAH PresleyC Nurse Practitioner Active S tart: August 16, 2024 End: August 16, 2024 Team Status: Inactive Member Role/Relationship Status Dates Collette DUMONT PA-C Primary care physician Active Start: September 12, 2024 End: September 12, 2024 Collette DUMONT PA-C Referring Provider Active Start: September 12, 2024 End: September 12, 2024 URIAH CrisostomoC Attending physician Active Start: September 12, 2024 End: September 12, 2024 Team Status: Inactive Member Role/Relationship Status Dates Collette DUMONT PA-C Primary care physician Active Start: September 12, 2024 End: September 12, 2024 URIAH CrisostomoC Attending physician Active Start: September 12, 2024 End: September 12, 2024 Team Status: Inactive Member Role/Relationship Status Dates Collette Amin PA, PA-C Primary care physician Active Start: September 16, 2024 End: September 16, 2024 Collettebartolo Amin PA, PA-C Referring Provider Active Start: September 16, 2024 End: September 16, 2024 JULIA Alexander Attending physician Active Start: September 16, 2024 End: September 16, 2024 Team Status: Inactive Member Role/Relationship Status Dates Collette Amin PA, PA-C Primary care physician Active Start: October 03, 2024 End: October 03, 2024 Collette Amin PA, PA-C Referring Provider Active Start: October 03, 2024 End: October 03, 2024 Dr. Natasha Correia MD Attending physician Active Start: October 03, 2024 End: October 03, 2024 Team Status: Inactive Member Role/Relationship Status Dates Collette Amin PA, PA-C Primary care physician Active Start: October 03, 2024 End: October 03, 2024 Dr. Natasha Correia MD Attending physician Active Start: October 03, 2024 End: October 03, 2024 Dr. Natasha Correia MD Referring Provider Active Start: October 03, 2024 End: October 03, 2024 Team Status: Inactive Member Role/Relationship Status Dates Collette Amin PA, PA-C Referring Provider Active Start: October 06, 2024 End: October 06, 2024 JULIA Alexander Attending physician Active Start: October 06, 2024 End: October 06, 2024 Angeli Martin INTERNATIONAL SALES REPRESENTATIVE-C Primary care physician Active Start: October 06, 2024 End: October 06, 2024 Team Status: Inactive Member Role/Relationship Status Dates Angeli Martin NP-C Primary care physician Active Start: October 06, 2024 End: October 06, 2024 JULIA Alexander Attending physician Active Start: October 06, 2024 End: October 06, 2024 JULIA Alexander Referring Provider Active Start: October 06, 2024 End: October 06, 2024 Team Status: Inactive Member Role/Relationship Status Dates Angeli Martin NP-C Primary care physician Active Start: October 12, 2024 End: October 12, 2024 JULIA Alexander Attending physician Active Start: October 12, 2024 End: October 12, 2024 JULIA Alexander Referring Provider Active Start: October 12, 2024 End: October 12, 2024 Team Status: Inactive Member Role/Relationship Status Dates Angeli Martin , INTERNATIONAL SALES REPRESENTATIVE-C Primary care physician Active Start: October 18, 2024 End: October 18, 2024 Angeli Martin , INTERNATIONAL SALES REPRESENTATIVE-C Attending physician Active Start: October 18, 2024 End: October 18, 2024 Team Status: Inactive Member Role/Relationship Status Dates Angeli Martin INTERNATIONAL SALES REPRESENTATIVE-C Primary care physician Active Start: October 25, 2024 End: October 25, 2024 Dillon ALEXANDRA INTERNATIONAL SALES REPRESENTATIVE-C Attending physician Active Start: October 25, 2024 End: October 25, 2024 Team Status: Inactive Member Role/Relationship Status Dates Angeli Martin , INTERNATIONAL SALES REPRESENTATIVE-C Primary care physician Active Start: November 09, 2024 End: November 09, 2024 Angeli Martin INTERNATIONAL SALES REPRESENTATIVE-C Referring Provider Active Start: November 09, 2024 End: November 09, 2024 Tonia Iverson NP, INTERNATIONAL SALES REPRESENTATIVE-C Attending physician Active Start: November 09, 2024 End: November 09, 2024 Team Status: Inactive Member Role/Relationship Status Dates Angeli Martin INTERNATIONAL SALES REPRESENTATIVE-C Primary care physician Active Start: November 09, 2024 End: November 09, 2024 Tonia Iverson NP, INTERNATIONAL SALES REPRESENTATIVE-C Attending physician Active Start: November 09, 2024 End: November 09, 2024 Team Status: Inactive Member Role/Relationship Status Dates Angeli Martin INTERNATIONAL SALES REPRESENTATIVE-C Primary care physician Active Start: November 17, 2024 End: November 17, 2024 Angeli Martin , INTERNATIONAL SALES REPRESENTATIVE-C Attending physician Active Start: November 17, 2024 End: November 17, 2024 Angeli Martin , INTERNATIONAL SALES REPRESENTATIVE-C Referring Provider Active Start: November 17, 2024 End: November 17, 2024 Team Status: Inactive Member Role/Relationship Status Dates Dr. Rakesh Schreiber DO Attending physician Active Start: November 22, 2024 End: November 22, 2024 Angeli Martin INTERNATIONAL SALES REPRESENTATIVE-C Primary care physician Active Start: November 22, 2024 End: November 22, 2024 Angeli Tannhof , INTERNATIONAL SALES REPRESENTATIVE-C Referring Provider Active Start: November 22, 2024 End: November 22, 2024 Team Status: Active Member Role/Relationship Status Dates Dr. Rakesh Schreiber DO Attending physician Active Start: November 22, 2024 Dr. Rakesh Schreiber DO Nurse Practitioner Active Start: November 22, 2024 Angeli Martin INTERNATIONAL SALES REPRESENTATIVE-C Primary care physician Active Start: November 22, 2024 Angeli Martin INTERNATIONAL SALES REPRESENTATIVE-C Referring Provider Active Start: November 22, 2024 Team Status: Inactive Member Role/Relationship Status Dates Angeli Martin INTERNATIONAL SALES REPRESENTATIVE-C Primary care physician Active Start: December 05, 2024 End: December 05, 2024 Angeli Martin , INTERNATIONAL SALES REPRESENTATIVE-C Referring Provider Active Start: December 05, 2024 End: December 05, 2024 Sada Christianson NP-C Attending physician Active Start: December 05, 2024 End: December 05, 2024 Team Status: Active Member Role/Relationship Status Dates Angeli Martin INTERNATIONAL SALES REPRESENTATIVE-C Primary care physician Active Start: December 05, 2024 Sada Christianson NP-C Attending physician Active Start: December 05, 2024 Sada Christianson NP-C Referring Provider Active Start: December 05, 2024 Team Status: Active Member Role/Relationship Status Dates Angeli Martin INTERNATIONAL SALES REPRESENTATIVE-C Primary care physician Active Start: December 06, 2024 Dr. Rakesh Schreiber DO Nurse Practitioner Active Start: December 06, 2024 Angeli Martin NP-C Attending physician Active Start: December 06, 2024 Angeli Martin INTERNATIONAL SALES REPRESENTATIVE-C Referring Provider Active Start: December 06, 2024 Team Status: Inactive Member Role/Relationship Status Dates Collette DUMONT, PA-C Referring Provider Active Start: December 07, 2024 End: December 07, 2024 Dr. Soo Portillo MD Attending physician Active Start: December 07, 2024 End: December 07, 2024 nAgeli Martin INTERNATIONAL SALES REPRESENTATIVE-C Primary care physician Active Start: December 07, 2024 End: December 07, 2024 Team Status: Inactive Member Role/Relationship Status Dates Angeli Martin INTERNATIONAL SALES REPRESENTATIVE-C Primary care physician Active Start: December 08, 2024 End: December 08, 2024 Angeli Martin NP-C Referring Provider Active Start: December 08, 2024 End: December 08, 2024 JULIA Alexander Attending physician Active Start: December 08, 2024 End: December 08, 2024 Team Status: Inactive Member Role/Relationship Status Dates Colltete Amin PA, PA-C Primary care physician Active Start: September 12, 2024 End: September 12, 2024 Collette Hills PA, PA-C Referring Provider Active Start: September 12, 2024 End: September 12, 2024 HARI Crisostomo Attending physician Active Start: September 12, 2024 End: September 12, 2024 Team Status: Inactive Member Role/Relationship Status Dates Collette Hills PA, PA-C Primary care physician Active Start: September 12, 2024 End: September 12, 2024 URIAH CrisostomoC Attending physician Active Start: September 12, 2024 End: September 12, 2024 Team Status: Inactive Member Role/Relationship Status Dates Collette Amin PA, PA-C Primary care physician Active Start: September 16, 2024 End: September 16, 2024 Collettebartolo Amin PA, PA-C Referring Provider Active Start: September 16, 2024 End: September 16, 2024 JULIA Alexander Attending physician Active Start: September 16, 2024 End: September 16, 2024 Team Status: Inactive Member Role/Relationship Status Dates Collette Amin PA, PA-C Primary care physician Active Start: October 03, 2024 End: October 03, 2024 Collettebartolo Amin PA, PA-C Referring Provider Active Start: October 03, 2024 End: October 03, 2024 Dr. Natasha Correia MD Attending physician Active Start: October 03, 2024 End: October 03, 2024 Team Status: Inactive Member Role/Relationship Status Dates Collette Hills PA, PA-C Primary care physician Active Start: October 03, 2024 End: October 03, 2024 Dr. Natasha Correia MD Attending physician Active Start: October 03, 2024 End: October 03, 2024 Dr. Natasha Correia MD Referring Provider Active Start: October 03, 2024 End: October 03, 2024 Team Status: Inactive Member Role/Relationship Status Dates Clolette DUMONT PA-C Referring Provider Active Start: October 06, 2024 End: October 06, 2024 JULIA Alexander Attending physician Active Start: October 06, 2024 End: October 06, 2024 Angeli Martin NP-C Primary care physician Active Start: October 06, 2024 End: October 06, 2024 Team Status: Inactive Member Role/Relationship Status Dates Angeli Martin NP-C Primary care physician Active Start: October 06, 2024 End: October 06, 2024 JULIA Alexander Attending physician Active Start: October 06, 2024 End: October 06, 2024 JULIA Alexander Referring Provider Active Start: October 06, 2024 End: October 06, 2024 Team Status: Inactive Member Role/Relationship Status Dates Angeli Martin NP-C Primary care physician Active Start: October 12, 2024 End: October 12, 2024 JULIA Alexander Attending physician Active Start: October 12, 2024 End: October 12, 2024 JULIA Alexander Referring Provider Active Start: October 12, 2024 End: October 12, 2024 Team Status: Inactive Member Role/Relationship Status Dates Angeli Martin NP-C Primary care physician Active Start: October 18, 2024 End: October 18, 2024 URIAH HenryC Attending physician Active Start: October 18, 2024 End: October 18, 2024 Team Status: Inactive Member Role/Relationship Status Dates Angeli Martin NP-C Primary care physician Active Start: October 25, 2024 End: October 25, 2024 Dillon ALEXANDRA INTERNATIONAL SALES REPRESENTATIVE-C Attending physician Active Start: October 25, 2024 End: October 25, 2024 Team Status: Inactive Member Role/Relationship Status Dates Angeli Martin NP-C Primary care physician Active Start: November 09, 2024 End: November 09, 2024 Angeli Martin NP-C Referring Provider Active Start: November 09, 2024 End: November 09, 2024 Tonia Iverson NP, INTERNATIONAL SALES REPRESENTATIVE-C Attending physician Active Start: November 09, 2024 End: November 09, 2024 Team Status: Inactive Member Role/Relationship Status Dates Angeli Martin INTERNATIONAL SALES REPRESENTATIVE-C Primary care physician Active Start: November 09, 2024 End: November 09, 2024 Tonia Iverson NP INTERNATIONAL SALES REPRESENTATIVE-C Attending physician Active Start: November 09, 2024 End: November 09, 2024 Team Status: Inactive Member Role/Relationship Status Dates Angeli Martin INTERNATIONAL SALES REPRESENTATIVE-C Primary care physician Active Start: November 17, 2024 End: November 17, 2024 Angeli Martin INTERNATIONAL SALES REPRESENTATIVE-C Attending physician Active Start: November 17, 2024 End: November 17, 2024 Angeli Martin INTERNATIONAL SALES REPRESENTATIVE-C Referring Provider Active Start: November 17, 2024 End: November 17, 2024 Team Status: Inactive Member Role/Relationship Status Dates Dr. Rakesh Schreiber DO Attending physician Active Start: November 22, 2024 End: November 22, 2024 Angeli Martin INTERNATIONAL SALES REPRESENTATIVE-C Primary care physician Active Start: November 22, 2024 End: November 22, 2024 Angeli Martin INTERNATIONAL SALES REPRESENTATIVE-C Referring Provider Active Start: November 22, 2024 End: November 22, 2024 Team Status: Active Member Role/Relationship Status Dates Dr. Rakesh Schreiber DO Attending physician Active Start: November 22, 2024 Dr. Rakesh Schreiber DO Nurse Practitioner Active Start: November 22, 2024 Angeli Martin INTERNATIONAL SALES REPRESENTATIVE-C Primary care physician Active Start: November 22, 2024 Angeli Martin INTERNATIONAL SALES REPRESENTATIVE-C Referring Provider Active Start: November 22, 2024 Team Status: Inactive Member Role/Relationship Status Dates Angeli Martin INTERNATIONAL SALES REPRESENTATIVE-C Primary care physician Active Start: December 05, 2024 End: December 05, 2024 Angeli Martin INTERNATIONAL SALES REPRESENTATIVE-C Referring Provider Active Start: December 05, 2024 End: December 05, 2024 HARI Crisostomo Attending physician Active Start: December 05, 2024 End: December 05, 2024 Team Status: Inactive Member Role/Relationship Status Dates Angeli Martin INTERNATIONAL SALES REPRESENTATIVE-C Primary care physician Active Start: December 05, 2024 End: December 05, 2024 HARI Crisostomo Attending physician Active Start: December 05, 2024 End: December 05, 2024 Sada Christianson NP-C Referring Provider Active Start: December 05, 2024 End: December 05, 2024 Team Status: Active Member Role/Relationship Status Dates Angeli Martin , INTERNATIONAL SALES REPRESENTATIVE-C Primary care physician Active Start: December 06, 2024 Dr. Rakesh Schreiber DO Nurse Practitioner Active Start: December 06, 2024 Angeli Martin , INTERNATIONAL SALES REPRESENTATIVE-C Attending physician Active Start: December 06, 2024 Angelidominick Martin , INTERNATIONAL SALES REPRESENTATIVE-C Referring Provider Active Start: December 06, 2024 Team Status: Active Member Role/Relationship Status Dates Angeli Martin , INTERNATIONAL SALES REPRESENTATIVE-C Primary care physician Active Start: December 06, 2024 Dr. Edgar Muse MD Attending physician Active Start: December 06, 2024 Angeli Martin , INTERNATIONAL SALES REPRESENTATIVE-C Referring Provider Active Start: December 06, 2024 Team Status: Inactive Member Role/Relationship Status Dates Collette DUMONT, PA-C Referring Provider Active Start: December 07, 2024 End: December 07, 2024 Dr. Soo Portillo MD Attending physician Active Start: December 07, 2024 End: December 07, 2024 Angelidominick Martin , INTERNATIONAL SALES REPRESENTATIVE-C Primary care physician Active Start: December 07, 2024 End: December 07, 2024 Team Status: Inactive Member Role/Relationship Status Dates Angeli Martin , INTERNATIONAL SALES REPRESENTATIVE-C Primary care physician Active Start: December 08, 2024 End: December 08, 2024 Angelidominick Dumonthof , INTERNATIONAL SALES REPRESENTATIVE-C Referring Provider Active Start: December 08, 2024 End: December 08, 2024 JULIA Alexander Attending physician Active Start: December 08, 2024 End: December 08, 2024 Team Status: Active Member Role/Relationship Status Dates Angelidominick Dumonthof , INTERNATIONAL SALES REPRESENTATIVE-C Primary care physician Active Start: December 20, 2024 Angeli Martin , INTERNATIONAL SALES REPRESENTATIVE-C Attending physician Active Start: December 20, 2024 Angeli Martin , INTERNATIONAL SALES REPRESENTATIVE-C Referring Provider Active Start: December 20, 2024 Team Status: Inactive Member Role/Relationship Status Dates Angelidominick Dumonthotommy , INTERNATIONAL SALES REPRESENTATIVE-C Primary care physician Active Start: December 20, 2024 End: December 20, 2024 Angeli Martin , INTERNATIONAL SALES REPRESENTATIVE-C Referring Provider Active Start: December 20, 2024 End: December 20, 2024 Dr. Soo Portillo MD Attending physician Active Start: December 20, 2024 End: December 20, 2024 Team Status: Inactive Member Role/Relationship Status Dates HARI Henry Primary care physician Active Start: December 06, 2024 End: December 06, 2024 Dr. Rakesh Schreiber DO Nurse Practitioner Active Start: December 06, 2024 End: December 06, 2024 HARI Henry Attending physician Active Start: December 06, 2024 End: December 06, 2024 HARI Henry Referring Provider Active Start: December 06, 2024 End: December 06, 2024 Team Status: Inactive Member Role/Relationship Status Dates HARI Henry Primary care physician Active Start: December 27, 2024 End: December 27, 2024 HARI Henry Referring Provider Active Start: December 27, 2024 End: December 27, 2024 Dr. Soo Portillo MD Attending physician Active Start: December 27, 2024 End: December 27, 2024 FOR RECORDS PERTAINING TO PATIENTS WHO [...] BE BASED ON THE PRIMARY CLINICAL RECORDS. [email or web address] provides no warranty or guarantee of the accuracy or completeness of information in this document.
[2025-01-06 22:20] LABS: Hematocrit 40.4 % (37-47); Hemoglobin 13.8 g/dL (12.0-15.0); Immature Granulocytes Count 0.020 X10^3/uL (0.0-0.0); Mean Corp Hgb Conc 34.2 g/dL (32-36); Mean Corpuscular Volume 84.2 fL (81-99); Mean Platelet Vol. 9.5 fl (6.2-12.0); NRBC Flagged by Analyzer 0 % (0-5); Platelet Count 346 K/mm3 (150-450); RBC Distribution Width CV 12.4 % (11.6-14.6); RBC Distribution Width SD 37.7 fl (35.1-43.9); Red Blood Count 4.80 M/mm3 (4.2-5.4); White Blood Count 6.0 K/mm3 (4.4-11.0)
[2025-01-06] MEDS: 0.9% Normal Saline (1000mL) 1,000 ML 999 ML IV (22:20)
[2025-01-06] MEDS: hydrOXYzine PAM 25 MG Capsule PO (22:20)
[2025-01-06 22:50] LABS: AST(SGOT) 30 U/L (<=31); Alanine Aminotransfer ALT/SGPT 24 U/L (<=34); Albumin, Serum 4.6 g/dL (3.5-5.0); Alkaline Phosphatase 142 U/L (35-104); Anion Gap 13 (5-15); BUN 7 mg/dL (4-19); BUN/Creat Ratio 11.4 RATIO (10-20); Calcium,Total 9.0 mg/dL (7.6-11.0); Carbon Dioxide 23.0 mmol/L (21.0-32.0); Chloride 106 mmol/L (98-108); Estimated Creatinine Clearance 112.47 ml/min (50-250); Globulin 2.9 g/dL (2.2-4.2); Glucose 89 mg/dL (70-99); Lipase 26 U/L (13-75); Magnesium 2.4 mg/dL (1.5-2.2); Potassium 3.0 mmol/L (3.3-5.1)
[2025-01-06 22:50] LABS: Calcium Oxalate Crystals Ur 2+ /hpf (<or=2+); Squamous Epithelial Cells - UA 5-10 SEEN /hpf (5-10)
[2025-01-06 22:51] LABS: Red Blood Cells-Urine 5-10 SEEN /hpf (0-5)
[2025-01-06 23:00] VITALS: BP 119/70; PULSE 79; RESP 18; O2SAT 100
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
[2025-01-06] MEDS: Scopolamine 1mg/72hr Patch 1 PATCH TD (23:45)
[2025-01-06 23:58] VITALS: BP 119/70; PULSE 79; RESP 18; TEMP 36.6; O2SAT 100
== END 2025-01-07 00:46 | disposition home or self-care (01) ==
PROVIDERS: Emergency Provider Emergency Medicine; PCP Nurse Practitioner Family; Visit Provider Emergency Medicine
DX: F41.9 Anxiety disorder, unspecified (principal); E03.9 Hypothyroidism, unspecified; K31.84 Gastroparesis; E86.0 Dehydration; R11.2 Nausea with vomiting, unspecified; Z79.890 Hormone replacement therapy; Z79.899 Other long term (current) drug therapy; Z90.49 Acquired absence of other specified parts of digestive tract
CPT/HCPCS: 80053; 81001; 83690; 83735; 84703; 85025; 96361; 96374; 99283; A4216; J2405

== ENCOUNTER → 2025-02-13 | Outpatient (CLI) | payer MEDICAID, SELFPAY | END | disposition home or self-care (01) | PROVIDERS: PCP Nurse Practitioner Family; Referring Provider Nurse Practitioner Family; Visit Provider Nurse Practitioner Family | DX: N94.89 Other specified conditions associated with female genital organs and menstrual cycle (principal) | CPT/HCPCS: 87070; 87205 ==

== ENCOUNTER → 2025-03-09 | Outpatient (CLI) | payer MEDICAID, SELFPAY ==
[2025-03-09 13:52] LABS: Mucous, Urine 0 SEEN /hpf (<or=2+)
[2025-03-09 14:01] LABS: Color, Urine Straw (Yellow); Glucose, Dipstick Normal (Normal); Ketone-Dipstick Negative (Negative); Leukocyte Esterase-Dipstick Negative /ul (Negative); Nitrite-Dipstick Negative (Negative); Occult Blood-Urine 250 /ul (Negative); Protein-Dipstick 15 mg/dl (Negative); Specific Gravity, Urine 1.010 (1.002-1.030); Urine Bilirubin Dipstick Negative (Negative)
[2025-03-09 14:16] LABS: Red Blood Cells-Urine > 100 SEEN /hpf (0-5); Squamous Epithelial Cells - UA 25-50 SEEN /hpf (5-10)
== END | disposition home or self-care (01) ==
PROVIDERS: PCP Nurse Practitioner Family; Referring Provider Nurse Practitioner Family; Visit Provider Nurse Practitioner Family
DX: R30.0 Dysuria (principal)
CPT/HCPCS: 81001; 87086; 87088